=== PATIENT | male | born 1945 | race Caucasian/White ===

== ENCOUNTER 2016-07-28 12:43 | Outpatient (CLI) | payer MEDICARE, MEDICAID ==
[~2016-07-28] VITALS: Ht 182.9 cm; Wt 119.1 kg
[~2016-07-28 12:43] MED LIST: CYAN100053 IM; ERGO500028; HYDR25TA4 PO; MELO-195; NAPR-689; PRM25T; SOLI5TAB4; SUMA100T2 PO; SUMA50TA2; TAMS0.4C2 PO; TRAZ-144 PO
[2016-07-28 12:52] VITALS: BP 137/68
[2016-07-28] MEDS ORDERED: LISI-552 PO (13:23)
[2016-07-28] MEDS ORDERED: [UNRECOGNIZED DRUG - CODE] PO (13:23)
[2016-07-28] MEDS ORDERED: FAMO20TA3 PO (13:23)
[2016-07-28] MEDS ORDERED: CHOL500044 PO (13:23)
[2016-07-28] MEDS ORDERED: METO-270 PO (13:23)
[2016-07-28] MEDS ORDERED: SOLI10TA2 PO (13:23)
[2016-07-28] MEDS ORDERED: GABA-488 PO (13:23)
[2016-08-13] MEDS ORDERED: ACET-77 PO (07:46)
== END 2016-07-28 13:05 | disposition home or self-care (01) ==
LOC: PREOP 12:43
PROVIDERS: ATTEND Orthopaedic Surgery
DX: Z01.818 Encounter for other preprocedural examination (principal); M75.102 Unspecified rotator cuff tear or rupture of left shoulder, not specified as traumatic

== ENCOUNTER 2016-08-04 09:34 | Inpatient (IN) | payer MEDICARE, MEDICAID ==
[~2016-08-04] VITALS: Ht 182.9 cm; Wt 118.8 kg
[~2016-08-04 09:34] MED LIST changes: -ACET-77 PO; -BUPIVACAINE 0.25% 30 ML (SENSORCAINE) VIAL ONE; -CLINDAMYCIN 600 MG/50 ML IVPB 50 ML IV ONE; -DEXAMETHASONE PF 10 MG/ML (DECADRON) VIAL ONE; -FAMOTIDINE 20MG/2ML IV (PEPCID) IV ONE; -GLYCOPYRROLATE 0.2 MG/ML (ROBINUL) 2 ML VIAL ONE; -LACTATED RINGERS 1,000 ML IV ONE; -LIDOCAINE PF 2% 10 ML (XYLOCAINE) AMP ONE; -MIDAZOLAM 2 MG/2 ML (VERSED) VIAL ONE; -NEOSTIGMINE (BLOXIVERZ ) 1 MG/1ML 10 ML VIAL ONE; -ONDANSETRON 4 MG/2 ML (SDV) Z0FRAN IV ONE; -ONDANSETRON 4 MG/2 ML (SDV) Z0FRAN ONE; -ROCURONIUM 50 MG/5 ML (ZEMURON) VIAL IV ONE; -SEVOFLURANE (ULTANE) 15 ML INHAL SOLN ONE; -fentaNYL INJECTION 100 MCG/2 ML AMP IV PRN; -fentaNYL INJECTION 250 MCG/5 ML AMP ONE; -morphine INJ 10 MG/ML 1ML (SYR OR VIAL) IV PRN; -morphine PF (DURAMORPH) 10 MG/10 ML AMP ONE; -oxyCODONE/APAP 5/325MG (PERCOCET 5) TABLET PO PRN; -proPOfol 200 MG/20 ML (DIPRIVAN) VIAL IV ONE
[2016-08-04 11:45] VITALS: BP 129/77
[2016-08-04] MEDS ORDERED: FAMOTIDINE 20 MG (PEPCID) TABLET PO PRN (12:15)
--- NOTE | 2016-08-04 13:38 | Occupational Therapy Eval ---
OT Evaluation-General/PLF Medical Diagnosis Admission Date Aug 04, 2016 at 11:25 Medical Diagnosis: post polio syndrome, L rot cuff repair Onset Date: Aug 04, 2016 Therapy Diagnosis Therapy Diagnosis: decr self care, weakness, decr functional mobility Height/Weight Height (Feet): 6 Height (Inches): 0.00 Weight (Pounds): 262 Weight (Ounces): 8.0 Precautions Precautions/Isolations: Standard Precautions Weight Bear Status Weight Bearing Restriction: Weight Bearing/Tolerated AROM, PROM as tolerated, WB as tolerated L UE Referral Physician: Leighton Referral Reason: Evaluation/Treatment Medical History Pertinent Medical History: GERD, HTN Additional Medical History Migraines, insomnia, neck pain, foot drop R, arrhythmia, C spine surgery, L Le fx surgeries x 2, R LE surgeries x 2 Current History left shoulder arthroscopic biceps tenotomy, labral debridement, chondroplasty of the glenoid, acromioplasty and distal clavicle excision. Recovery complicated by polio affecting R LE and post polio syndrome affecting L LE and UEs. Reviewed History: Yes Social History Home: Assisted Living (Guest Home) Current Living Status: Alone Entry Into Home: Level Entry ADL-Prior Level of Function ADL PLOF Comments Pt reported that he has been able to manage all of his basic self care needs. He uses a 4WW in the facility and a scooter when he is outside. His bathroom has additional grab bars in the shower. 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 Pt reported pain in L shoulder from surgery but was not able to describe or rate it. Appearance Alert, cooperative Mental Status/Objective Patient Orientation: Person, Place, Situation Attachments: IV (became dislodged by pt during tx. Nursing notified) Current Glasses/Contacts: Yes Hearing Aids: No Dentures/Partials: Yes (upper and lower) Hand Dominance: Right Upper Extremity ROM R WFL. L about 20 degrees active flex/abd at shoulder, rest UE WFL Upper Extremity Sensation Pt reported some numbness R thumb and index. "That's from my neck surgery." Upper Extremity Strength UE grossly 4+/5. L UE not tested at shoulder due to post surgery, rest UE grossly 4+/5 ADL-Treatment ADL-Current Pt declined bathing because he had already showered today prior to surgery. Pt toileted with SBA standing in front of toilet, grab bar on R side, 4WW on L. Pt will not be able to get off taller toilet, with grab bar on his L side. Placed BSC over toilet which gives him arm rests to use for getting up and down. uses a urinal at night Functional [place] Measure 0=Not Assessed/NA 4=Minimal Assistance 1=Total Assistance 5=Supervision or Setup 2=Maximal Assistance 6=Modified [place] 3=Moderate Assistance 7=Complete IndependenceIRFPAI Quality Coding Scale 6 Independent with activity with or without an assistive device 5 Patient requires set up or clean up by helper. Patient completes activity by themselves 4 Supervision or touching assist (CGA). [place] provide cues , steadying assist 3 The helper provides less than half the effort to complete the activity 2 The helper provides more than half the effort to complete the activity 1 Dependent. The helper does all the effort to complete an activity 7 Patient refused to complete or attempt activity 9 The patient did not perform the activity before the current illness or injury 88 Not attempted due to Medical conditions or safety concerns Eating (FIM): 6 (Cannot eat peanuts without dentures. Opened packages and cut food. Able to feed himself) Eating (QC): 6 Grooming (FIM): 5 (SBA washing hands at sink. Pt able to put dentures in with only setup to bring supplies to him) Oral Hygiene (QC): 5 (setup) Upper Body Dressing (FIM): 5 (setup. Struggled a little with getting shirt over L shoulder and over head. ) Upper Body Dressing (QC): 5 Lower Body Dressing (FIM): 1 (Two people needed to provide CGA when standing and other person to pull pants up. Used 4WW for balance. max assist to don R LE brace and shoe. ) Lower Body Dressing (QC): 1 On/Off Footwear (QC): 1 Transfers (B, C, W/C) (FIM): 1 (Mod assist but two people, from taller surface. Difficulty pushing up with L UE. ) Other Treatments Co-tx with PT, due to decreased use R LE from polio, post polio syndrome with weakness L LE and UEs, and decreased functional use L UE immediately post surgery, with OT focusing on L UE function and ADLs and PT focusing on mobility and LE function. Education OT Patient Education: Modified ADL techniques, Progress toward Goal/Update tx plan, Purpose of tx/functional activities, Reviewed precautions, Rehab process, Safety issues, Transfer techniques Teaching Recipient: Patient Teaching Methods: Demonstration, Discussion Response to Teaching: Return Demonstration, Reinforcement Needed OT Short Term Goals Short Term Goals Time Frame: Aug 11, 2016 Lower Body Dressing(FIM): 4 Transfers (B,C,W/C) (FIM): 5 Additional Short Term Goals: 2-Verbalize Understanding, 3-ImproveStrength/Jennifer 1=Demonstrate adherence to instructed precautions during ADL tasks. 2=Patient will verbalize/demonstrate understanding of assistive devices/ modifications for ADL. 3=Patient will improve strength/tolerance for activity to enable patient to perform ADL's. OT Mcc Goals Tin Plater Goals Time Frame: Aug 18, 2016 Eating (FIM): 6 Eating (QC): 6 Groomin Oral Hygiene (QC): 6 Bathing(FIM): 6 Shower/Bathe Self (QC): 6 Upper Body Dressing(FIM): 6 Upper Body Dressing (QC): 6 Lower Body Dressing(FIM): 6 Lower Body Dressing (QC): 6 On/Off Footwear (QC): 6 Toileting(FIM): 6 Toileting Hygiene (QC): 6 Toilet/Commode Transfer(FIM): 6 Toilet/Commode Transfer (QC): 6 Shower Transfer(FIM): 6 Additional Goals: 2-Verbalize Understanding, 3-ImproveStrength/Jennifer 1=Demonstrate adherence to instructed precautions during ADL tasks. 2=Patient will verbalize/demonstrate understanding of assistive devices/ modifications for ADL. 3=Patient will improve strength/tolerance for activity to enable patient to perform ADL's. OT Education/Plan Problem List/Assessment Assessment: Decreased Activ Tolerance, Decreased UE Strength, Dependent Transfers, Impaired Funct Balance, Impaired Self-Care Skills, Restricted Funct UE ROM Pt would benefit from skilled OT to increase his independence in basic self care after L rotator cuff repair, complicated by R LE weakness from polio and post polio syndrome affecting strength and endurance in L Le and UEs, to allow him to safely return to live independently at [facility]. Discharge Recommendations Plan/Recommendations: Continue POC Barriers to Progress weakness from post polio syndrome Treatment Plan/Plan of Care Treatment,Training & Education: Yes Patient would benefit from OT for education, treatment and training to promote independence in ADL's, mobility, safety and/or upper extremity function for ADL' s. Plan of Care: ADL Retraining, Functional Mobility, Group Exercise/Act as Ind ( education, exercise, activity tolerance, functional activities, socialization), UE Funct Exercise/Act, UE Neuromus Re-Ed/Coord Treatment Duration: Aug 18, 2016 # of days/week 5-6 Visits Per Week: 10-11 Minutes/Day (M-F): 75-90 Minutes/Day (Sat/Rojas): PRN Agreement: Yes Rehab Potential: Good Time/GCodes Start Time: 11:40 Stop Time: 13:00 Total Time Billed (hr/min): 65 Billed Treatment Time visit, 1140 to 1220, 1250 - 1300 Evaluation moderate complexity 10 minutes, ADL 40 minutes Co tx with PT 30 minutes and 10 minutes DARIUSZ LYN OT Aug 04, 2016 13:38
[2016-08-04] MEDS: GABAPENTIN 300 MG (NEURONTIN) CAP PO SCH ×2 (14:11→20:41)
--- NOTE | 2016-08-04 14:28 | Physical Therapy Evaluation ---
PT Evaluation-General Medical Diagnosis Admission Date Aug 04, 2016 at 11:25 Medical Diagnosis: post polio syndrome, L rot cuff repair Onset Date: Aug 04, 2016 Therapy Diagnosis Therapy Diagnosis: weakness, abn gait Height/Weight Height (Feet): 6 Height (Inches): 0.00 Weight (Pounds): 262 Weight (Ounces): 0.0 Precautions Precautions/Isolations: Standard Precautions Weight Bear Status Weight Bearing Restriction: Weight Bearing/Tolerated Location Restriction: L UE Referral Physician: Leighton Referral Comments Spoke with Dr. Wilson, he reported WBAT through L UE and A/PROM L UE as tolerated. Sling for comfort. Medical History Pertinent Medical History: GERD, HTN Current History Pt admitted post left shoulder scope for therapy services to address functional mobility and safety due to change in function with UE surgery. Reviewed History: Yes Social History Home: Assisted Living (Guest Home) Current Living Status: Alone Entry Into Home: Level Entry Prior/Core FIM Prior Level of Function Functional [place] Measure 0=Not Assessed/NA 4=Minimal Assistance 1=Total Assistance 5=Supervision or Setup 2=Maximal Assistance 6=Modified [place] 3=Moderate Assistance 7=Complete [place] Bed Mobility: 7 Transfers (B,C,W/C) (FIM): 6 Gait: 6 (4 WW; KAFO) Wheelchair Mobility: 6 (power chair for community mobility) Pt able to bathe, dress and care for self without assist at OF. Ambulates in facility with 4WW without assist; power chair for community mobility PT Evaluation-Current Subjective Pt is agreeable. Reports it will be difficult for a while with his left UE impaired due to recent scope. Reports he uses his left UE heavily to push up from the bed or chair as well as uses it to pull up in the shower. Also reports stairs are very difficult at PLOF and he relied heavily on the left UE to pull himself up stairs. Pain Numeric Pain Scale: 4 Location: Left Location Body Site: Shoulder Pain Description: Sharp (intermittent with activity) Comment: pain relieves when activity stops Pt/Family Goals Pt reports his goal is to return to caring for himself at PLOF Objective Patient Orientation: Person, Place, Time, Situation Problem Solving: Good ROM/Strength ROM Lower Extremities Left LE WFL R LE PROM WFL Strenght Lower Extremities Left LE strength is grossly 4-/5; right LE NT--post polio; generally 2/5 Integumentary/Posture Integumentary intact Bowel Incontinence: No Bladder Incontinence: No Posture normal and symmetrical Neuromuscular (Tone, Coordination, Reflexes) intact left LE; limited right LE Sensory Vision: Wears Glasses Hearing: Functional Hand Dominance: Right Sensation Right Lower Extremit: Intact Sensation Left Lower Extremity: Intact Transfers Functional [place] Measure 0=Not Assessed/NA 4=Minimal Assistance 1=Total Assistance 5=Supervision or Setup 2=Maximal Assistance 6=Modified [place] 3=Moderate Assistance 7=Complete IndependenceIRFPAI Quality Coding Scale 6 Independent with activity with or without an assistive device 5 Patient requires set up or clean up by helper. Patient completes activity by themselves 4 Supervision or touching assist (CGA). [place] provide cues , steadying assist 3 The helper provides less than half the effort to complete the activity 2 The helper provides more than half the effort to complete the activity 1 Dependent. The helper does all the effort to complete an activity 7 Patient refused to complete or attempt activity 9 The patient did not perform the activity before the current illness or injury 88 Not attempted due to Medical conditions or safety concerns Transfers (B, C, W/C) (FIM): 3 Scootin Rollin Roll Left to Right (QC): 4 Supine to/from Sit: 3 (mod assist for trunk) Sit to/from Stand: 3 (mod assist from standard height bed; pt unable to push up with left UE like usual) bed t/f WC(FIM only if WC use): 4 Sit to Lying (QC): 3 (asssist with trunk due to L UE recent surgery) Lying to Sitting/Side of Bed(Q: 3 Sit to Stand (QC): 3 Chair/Bmy-zg-Paxpr Xfer(QC): 4 Car Transfer (QC): 88 (not tested due to safety concerns at this time with transfer) Gait Does the Patient Walk?: Yes Mode of Locomotion: Walk Anticipated Mode of Locomotion: Walk Gait (FIM): 2 Distance (FIM): 1=up to 49 ft Walk 10 feet (QC): 4 (close CGA with 4WW) Walk 50 ft with 2 Turns(QC): 4 (close CGA with 4WW in room) Walk 150 ft (QC): 88 (unable to walk this distance at this time.) Walking 10ft/uneven surface-QC: 88 (unsafe to attempt due to fall risk) Distance: 50 ft Gait Level of Assist: 4 (close CGA) Gait Assistive Device: Walker 4 Wheeled Comments/Gait Description ROMINA right locked in knee extension; close CGA; Wheelchair Training Does the Pt Use a Wheelchair?: Yes (power chair at home) Wheelchair (FIM): 0 (no tested this visit; pt has a power chair he will use at home. ) Stairs Stairs (FIM): 0 (unsafe to attempt; fall risk) 1 Step (curb) (QC): 88 4 Steps (QC): 88 12 Steps (QC): 88 If not tested on admit;explain unsafe; typically heavy use of left UE to pull himself up stairs; unsafe to attempts at this time. Balance Sitting Static: Good Sitting Dynamic: Good Standing Static: Fair Standing Dynamic: Fair Picking up an Object (QC): 88 (fall risk; unable to attempt) Treatment Co treat with OT to address functional transfers and mobility whilst OT addressed dressing. PT focused on sequencing/placement of hands for transfers and trunk control / balance while OT addressed dressing. Worked on sequencing with bed mobiltiy and transfer as well as mobility in the room with multiple sit to stand attempts. Pt ambulated in/out of the bathroom with 4WW with Close CGA and stood at toilet to urinate and stood at sink to wash hands all with close CGA. Assessment/Needs Pt presents post left shoulder scope. He also has a history of post polio syndrome with right LE affected. Pt currently presents with difficulty with functional transfers, bed mobility, ambulation and ability to mobilize safely . He needs increased assist with transfers and mobility and has balance impairment as well. Due to patient's history of post polio and recent surgery, he is an excellent ARU candidate to address his mobility decline and restore his function to mod indep with all. His L UE affected, B LE weakness, diminished ability to transfer and impaired functional balance. His clinical presentation is changing due to surgery this date. Rehab Potential: Good PT Short Term Goals Short Term Goals Time Frame: Aug 13, 2016 Transfers (B,C,W/C) (FIM): 5 Gait (FIM): 5 Distance (FIM): 8=897-84 ft Gait Assistive Device: Walker 4 Wheeled PT Nursing Home Goals Instrument Technician Goals PT Nursing Home Goals Time Frame: Aug 20, 2016 Transfers (B,C,W/C) (FIM): 6 Sit to Lying (QC): 6 Lying-Sitting on Side/Bed(QC): 6 Sit to Stand (QC): 6 Roll Left to Right (QC): 6 Chair/Ovq-jm-Egkrj Xfer(QC): 6 Car Transfer (QC): 5 Does the Patient Walk: Yes Gait (FIM): 6 Gait distance (FIM): 3=150 ft Walk 10 feet (QC): 6 Walk 10ft-Uneven Surface(QC): 6 Walk 50ft with 2 Turns (QC): 6 Walk 150 ft (QC): 6 Gait Level of Assist: 6 Gait Assistive Device: Walker 4 Wheeled Does the Pt use WC or Scooter?: Yes Wheelchair (FIM): 6 Wheelchair distance (FIM): 3=150 ft Wheel 50 feet with 2 turns (QC: 6 Stairs (FIM): 2 # of Steps: 1 1 Step (curb) (QC): 4 4 Steps (QC): 0 (no goal; unsafe) 12 Steps (QC): 0 (no goal; unsafe) Picking up an Object (QC): 3 PT Plan Problem List Problem List: Activity Tolerance, Functional Strength, Safety, Balance, Gait, Transfer, Bed Mobility, ROM Treatment/Plan Treatment Plan: Continue Plan of Care Treatment Plan: Bed Mobility, Education, Functional Activity Jennifer, Functional Strength, Group Therapy, Gait, Safety, Therapeutic Exercise, Transfers Treatment Duration: Aug 20, 2016 # of days/week 5-6 Visits Per Week: 10*-15 Minutes/Day (M-F): 60-90 Minutes/Day (Sat/Rojas): prn Pt/Family Agrees w/Plan: Yes Safety Risks/Education Patient Education: Transfer Techniques, Safety Issues Teaching Recipient: Patient Teaching Methods: Demonstration, Discussion Response to Teaching: Reinforcement Needed Time/GCodes Time In: 1130 Time Out: 1235 Total Billed Treatment Time: 65 Total Billed Treatment visit [id number] PT eval mod [id number] co treat with OT; FA x 30 [id number] individual treat FA 15 [id number] co treat with OT FA 10 ZAIDA MARKHAM PT Aug 04, 2016 14:27
--- NOTE | 2016-08-04 14:37 | ST Cognitive Linguistic Eval ---
Speech Evaluation-General Medical Diagnosis post polio syndrome, L rot cuff repair Onset Date: Aug 04, 2016 Therapy Diagnosis Therapy Diagnosis: Questionable Cognitive Impairment Precautions Precautions/Isolations: Standard Precautions Referral Referring Physician: Dr. Wade Manzanares Reason for Referral: Evaluation/Treatment Cognitive Screen Medical History Pertinent Medical History: GERD, HTN Reviewed History: Yes Social History Current Living Status: Alone Speech PLF-Current Status Prior Level of Function The patient denied prior challenges with speech, language, or cognition. Subjective The patient was recently admitted to [facility] following repair of his left rotator cuff. The patient greeted the clinician appropriately and agreed to participate in the cognitive screen. Language Eval: Auditory Comprehends Simple Yes/No Ques: Functional Indent/Objects Multiple [place]: Functional Ident/Pics in Multiple [place]: Functional Follows 1-Step Commands: Functional Follows Complex Directions: Functional Follows General Conversations: Functional Language Eval: Verbal Language Completes Spontaneous Greeting: Functional Produces Auto, Serial Info: Functional Imitates Simple Words/Phrases: Functional Word Finding: Functional Requests Basic Needs: Functional States Basic Personal Info: Functional Expresses Complex Ideas: Functional Cognitive Patient Orientation The patient was oriented to self, location, month, year, date, and day of week. Objective Cognitive Domain Attention: WNL Problem Solving: Functional Objective Impression The patient demonstrated cognitive linguistic skills within normal limits and adequate for completion of ADL's. Communication/Social Cognition Comprehension: 6 Expression: 6 Social Interaction: 6 Problem Solvin Memory: 6 Speech Patient Assess Expression of Ideas/Wants: Expression (4) Understanding [place] Content: Understands (4) Brief Interview-Mental Status: Yes Repetition of Three Words: Three (3) Temporal Orientation: Year: Correct (3) Temporal Orientation: Month: Accurate within 5 days(2) Temporal Orientation: Day: Correct (1) Recall : Wear to say "Sock": Yes, no cue required (2) Recall : Color: Yes, no cue required (2) Recall : Bed: Yes, no cue required (2) Speech-Plan Treatment Plan Speech Therapy Treatment Plan: Discontinue ST Evaluation, only. Rehab Potential: Good Safety Risks/Education Teaching Recipient: Patient Teaching Methods: Discussion Response to Teaching: Verbalize Understanding Education Topics Provided: Plan of Care Time Speech Therapy Time In: 14:15 Speech Therapy Time Out: 14:25 Total Billed Time: 10 Billed Treatment Time 1VIVIAN ELIZABETH ST Aug 04, 2016 14:37
--- NOTE | 2016-08-04 14:45 | Therapy Group Daily Note ---
Therapy Daily Group Note Patient Education Topic Other List Below (ARU description/expectations) Exercises LE Seated Exercise, UE Exercise Other/Notes Pt actively participated in OT group. Group consisted of introductions (name, place living, favorite food), socializations, ARU expectations/educations, group interaction presenting safety hazards in home, UE/LE seated exercises and memory recall from history and pt's past. Pt contributed to each discussion appropriately. Pt was able to describe memories with details relevant to the topic. Pt attempted to complete UE/LE seated exercises though due to medical issues pt unable to complete movement with L UE. After group, pt lying in bed with call light/phone in reach. Start Time: 13:00 Stop Time: 14:10 Total Billed Treatment Time: 70 Total Billed Treatment 1-GRP ZAIDA FULLER Aug 04, 2016 14:45
[2016-08-04] MEDS: TROSPIUM 20 MG (SANCTURA) TAB PO SCH (17:11)
[2016-08-04] MEDS: ALFUZOSIN HCL 10 MG TAB (UROXATRAL) PO SCH (17:11)
[2016-08-04] MEDS ORDERED: TAMSULOSIN 0.4 MG (FLOMAX) CAP PO SCH (18:00)
[2016-08-04 18:11] VITALS: BP 147/80
[2016-08-04] MEDS: lisINopril 20 MG (ZESTRIL) TAB PO SCH (20:41)
[2016-08-04] MEDS: FAMOTIDINE 20 MG (PEPCID) TABLET PO SCH (20:41)
[2016-08-04] MEDS: traZODone 50 MG (DESYREL) TAB PO SCH (20:41)
[2016-08-04] MEDS: oxyCODONE/APAP 5/325MG (PERCOCET 5) TABLET PO PRN (20:41)
[2016-08-04 20:59] VITALS: BP 167/90
[2016-08-04] MEDS ORDERED: NON-FORMULARY MEDICATION 1 EA EA PO SCH (21:00)
[2016-08-05 01:00] VITALS: BP 111/67
[2016-08-05] MEDS: TROSPIUM 20 MG (SANCTURA) TAB PO SCH ×2 (06:00→17:09)
[2016-08-05 06:37] VITALS: BP 157/97
--- NOTE | 2016-08-05 07:42 | Progress Note-Standard ---
Standard Progress Note Progress Notes/Assess & Plan Progress/Assessment & Plan No complaints LUE--dressing in place. NVI doing well s/p L shoulder arthroscopy activities ad ada YAJAIRA ANN MD Aug 05, 2016 07:42
[2016-08-05] MEDS: FAMOTIDINE 20 MG (PEPCID) TABLET PO SCH ×2 (08:20→20:55)
[2016-08-05] MEDS: OMEGA 3 (FISH OIL) 1000 MG CAP PO SCH (08:20)
[2016-08-05] MEDS: GABAPENTIN 300 MG (NEURONTIN) CAP PO SCH ×3 (08:20→20:55)
[2016-08-05] MEDS: HYDROCHLOROTHIAZIDE 25 MG (HCTZ) TAB PO SCH (08:20)
[2016-08-05] MEDS: oxyCODONE/APAP 5/325MG (PERCOCET 5) TABLET PO PRN ×3 (08:21→17:24)
[2016-08-05] MEDS: VITAMIN D3 5,000 UNITS (CHOLECALCIFEROL ) CAPSULE PO SCH (08:21)
--- NOTE | 2016-08-05 09:48 | Occupational Ther Daily Note ---
OT Current Status-Daily Note Subjective Pt alert, ambulated with 4WW to therapy gym. Pt agreed to therapy. Pt c/o pain in L shldr, had pain medications then OT placed cold pack on shldr. Mental Status/Objective Patient Orientation: Person, Place, Time, Situation Functional [place] Measure 0=Not Assessed/NA 4=Minimal Assistance 1=Total Assistance 5=Supervision or Setup 2=Maximal Assistance 6=Modified [place] 3=Moderate Assistance 7=Complete [place] ADL-Treatment Pt had already bathed and dressed prior to OT. Pt stated that he had difficulty with donning sock/shoe then tying shoe. OT educated and gave pt with AE for dressing (sock aide, dressing stick, waiter/waitress third class, elastic shoelaces, long handle shoe horn). Pt demonstrated understanding of AE for lower body dressing by completing without assist. Functional [place] Measure 0=Not Assessed/NA 4=Minimal Assistance 1=Total Assistance 5=Supervision or Setup 2=Maximal Assistance 6=Modified [place] 3=Moderate Assistance 7=Complete IndependenceIRFPAI Quality Coding Scale 6 Independent with activity with or without an assistive device 5 Patient requires set up or clean up by helper. Patient completes activity by themselves 4 Supervision or touching assist (CGA). [place] provide cues , steadying assist 3 The helper provides less than half the effort to complete the activity 2 The helper provides more than half the effort to complete the activity 1 Dependent. The helper does all the effort to complete an activity 7 Patient refused to complete or attempt activity 9 The patient did not perform the activity before the current illness or injury 88 Not attempted due to Medical conditions or safety concerns Lower Body Dressing (FIM): 5 (With equipment) Other Treatment Pt completed AROM with L UE gravity eliminated, shldr retraction/protraction and horizontal shldr abd/add (3 sets 10 reps). Pt felt pain in anterior L shldr then took breaks to allow shldr to rest. Resistive fine motor exercises completed to increase strength for daily functional tasks. Pt ambulated to room with 4WW then was able to open closet to retrieve bag then transferred to recliner by self. After therapy, pt sitting in recliner with call light/phone in reach. All needs met in room. Education OT Patient Education: Modified ADL techniques, Use of adapted equipment Teaching Recipient: Patient Teaching Methods: Demonstration, Discussion Response to Teaching: Verbalize Understanding, Return Demonstration OT Short Term Goals Short Term Goals Time Frame: Aug 11, 2016 Lower Body Dressing(FIM): 4 Transfers (B,C,W/C) (FIM): 5 Additional Short Term Goals: 2-Verbalize Understanding, 3-ImproveStrength/Jennifer 1=Demonstrate adherence to instructed precautions during ADL tasks. 2=Patient will verbalize/demonstrate understanding of assistive devices/ modifications for ADL. 3=Patient will improve strength/tolerance for activity to enable patient to perform ADL's. OT Custodial Goals Custodial Goals Time Frame: Aug 18, 2016 Eating (FIM): 6 Eating (QC): 6 Groomin Oral Hygiene (QC): 6 Bathing(FIM): 6 Shower/Bathe Self (QC): 6 Upper Body Dressing(FIM): 6 Upper Body Dressing (QC): 6 Lower Body Dressing(FIM): 6 Lower Body Dressing (QC): 6 On/Off Footwear (QC): 6 Toileting(FIM): 6 Toileting Hygiene (QC): 6 Toilet/Commode Transfer(FIM): 6 Toilet/Commode Transfer (QC): 6 Shower Transfer(FIM): 6 Additional Goals: 2-Verbalize Understanding, 3-ImproveStrength/Jennifer 1=Demonstrate adherence to instructed precautions during ADL tasks. 2=Patient will verbalize/demonstrate understanding of assistive devices/ modifications for ADL. 3=Patient will improve strength/tolerance for activity to enable patient to perform ADL's. OT Education/Plan Problem List/Assessment Pt would benefit from skilled OT to increase his independence in basic self care after L rotator cuff repair, complicated by R LE weakness from polio and post polio syndrome affecting strength and endurance in L Le and UEs, to allow him to safely return to live independently at [facility]. Discharge Recommendations Plan/Recommendations: Continue POC Treatment Plan/Plan of Care Patient would benefit from OT for education, treatment and training to promote independence in ADL's, mobility, safety and/or upper extremity function for ADL' s. Plan of Care: ADL Retraining, Functional Mobility, Group Exercise/Act as Ind ( education, exercise, activity tolerance, functional activities, socialization), UE Funct Exercise/Act, UE Neuromus Re-Ed/Coord Treatment Duration: Aug 18, 2016 Visits Per Week: 10-11 Minutes/Day (M-F): 75-90 Minutes/Day (Sat/Rojas): PRN Agreement: Yes Rehab Potential: Good Time/GCodes Start Time: 08:15 Stop Time: 09:45 Total Time Billed (hr/min): 90 Billed Treatment Time 1 visit-ADL 3 (45 min) EX 3 (45 min) ZAIDA FULLER Aug 05, 2016 09:48
--- NOTE | 2016-08-05 10:46 | Physical Therapy Daily Note ---
PT Daily Note-Current Subjective Patient in recliner pre tx, agrees to PT, patient pleasant and cooperative. Rates pain in left shoulder at 3/10. Appearance Patient in bathroom post tx, is mod I with ambulation using a 4 wheeled walker Mental Status Patient Orientation: Normal For Age right KAFO Transfers Functional [place] Measure 0=Not Assessed/NA 4=Minimal Assistance 1=Total Assistance 5=Supervision or Setup 2=Maximal Assistance 6=Modified [place] 3=Moderate Assistance 7=Complete IndependenceIRFPAI Quality Coding Scale 6 Independent with activity with or without an assistive device 5 Patient requires set up or clean up by helper. Patient completes activity by themselves 4 Supervision or touching assist (CGA). [place] provide cues , steadying assist 3 The helper provides less than half the effort to complete the activity 2 The helper provides more than half the effort to complete the activity 1 Dependent. The helper does all the effort to complete an activity 7 Patient refused to complete or attempt activity 9 The patient did not perform the activity before the current illness or injury 88 Not attempted due to Medical conditions or safety concerns Transfers (B, C, W/C) (FIM): 4 Scootin Rollin Supine to/from Sit: 4 Sit to/from Stand: 4 Bed to/from Chair: 6 patient needs just a little assist getting out of bed since he can't use his left arm to push, he also needs min assist to stand from low surfaces Gait Training Gait (FIM): 6 Distance: 300', 100' Gait Level of Assist: 6 Gait Assistive Device: FWW 4 wheeled walker and right KAFO Exercises PROM to left shoulder flexion 75 degrees, abduction 85 degrees, ER 50 degrees, IR 65 degrees, seated PROM flexion on the parallel bars, AROM elbow flexion and forearm sup/pro NuStep Minutes: 15 NuStep Workload: 6 Treatments bed mobility and transfers, ambulation, functional strengthening, passive and active ROM Assessment Current Status: Fair Progress patient nico well, has to use left arm to stand PT Short Term Goals Short Term Goals Time Frame: Aug 13, 2016 Transfers (B,C,W/C) (FIM): 5 Gait (FIM): 5 Distance (FIM): 2=615-72 ft Gait Assistive Device: Walker 4 Wheeled PT Tugboat Engineer Goals Tugboat Engineer Goals PT Tugboat Engineer Goals Time Frame: Aug 20, 2016 Transfers (B,C,W/C) (FIM): 6 Sit to Lying (QC): 6 Lying-Sitting on Side/Bed(QC): 6 Sit to Stand (QC): 6 Rollin Roll Left to Right (QC): 6 Chair/Eye-iw-Yalzw Xfer(QC): 6 Car Transfer (QC): 5 Does the Patient Walk: Yes Gait (FIM): 6 Gait distance (FIM): 3=150 ft Walk 10 feet (QC): 6 Walk 10ft-Uneven Surface(QC): 6 Walk 50ft with 2 Turns (QC): 6 Walk 150 ft (QC): 6 Gait Level of Assist: 6 Gait Assistive Device: Walker 4 Wheeled Does the Pt use WC or Scooter?: Yes Wheelchair (FIM): 6 Wheelchair distance (FIM): 3=150 ft Wheel 50 feet with 2 turns (QC: 6 Stairs (FIM): 2 # of Steps: 1 1 Step (curb) (QC): 4 4 Steps (QC): 0 (no goal; unsafe) 12 Steps (QC): 0 (no goal; unsafe) Picking up an Object (QC): 3 PT Plan Problem List Problem List: Activity Tolerance, Functional Strength, Safety, Balance, Gait, Transfer, Bed Mobility, ROM Treatment/Plan Treatment Plan: Continue Plan of Care Treatment Plan: Bed Mobility, Education, Functional Activity Jennifer, Functional Strength, Group Therapy, Gait, Safety, Therapeutic Exercise, Transfers Treatment Duration: Aug 20, 2016 Visits Per Week: 10*-15 Minutes/Day (M-F): 60-90 Minutes/Day (Sat/Rojas): prn Safety Risks/Education Patient Education: Gait Training, Transfer Techniques, Reviewed Use of Ice, Correct Positioning, Safety Issues Teaching Recipient: Patient Teaching Methods: Demonstration, Discussion Response to Teaching: Reinforcement Needed Time/GCodes Time In: 945 Time Out: 1045 Total Billed Treatment Time: 60 Total Billed Treatment 1 visit GT 15 min FA 15 min EX 30 min RAVI PEREIRA PT Aug 05, 2016 10:46
--- NOTE | 2016-08-05 11:22 | HISTORY AND PHYSICAL ---
DATE OF ADMISSION: 08/04/2016 CHIEF COMPLAINT: Difficulty with walking. HISTORY OF PRESENT ILLNESS: The patient is a 71-year-old retired male who lives at local assisted living facility who had single day surgery with Dr. Wilson on 08/04/2016, due to progressively worsening left shoulder pain. The patient had arthroscopy and distal clavicle excision procedure. The patient had been modified independent for ambulation with a long leg brace on the right due to postpolio syndrome. He has arthritis in both shoulders. 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 He was able to do most of his ADLs prior to this. Currently he requires moderate assistance for grooming, lower body dressing, toileting, transfers. Max assist for bathing, upper body dressing, ambulates 12 feet with a front wheel walker. He has increased pain with movement of both shoulders, left more than right. He has an island dressing over the left shoulder. PAST MEDICAL HISTORY: 1. Post polio syndrome affecting the right leg. 2. Arthritis of both shoulders. 3. Hypertension. 4. C Spine surgery for radiculopathy rt arm [facility] 2000 with mild residual tingling rt hand PAST SURGICAL HISTORY: As per above. ALLERGIES: PENICILLIN. FAMILY HISTORY: Noncontributory. SOCIAL HISTORY: , lives at [facility] in [place]. He is retired. PCP: Dr. Long. REVIEW OF SYSTEMS: Ten-point review of systems significant for right leg weakness, bilateral shoulder pain MEDICATIONS: 1. Vitamin B12 1000 mcg q. month. 2. Hydrochlorothiazide 25 mg p.o. daily. 3. Fish oil 3000 mg p.o. daily. 4. Toprol-XL 25 mg p.o. daily. 5. Vitamin D3 500 units p.o. daily. 6. Lisinopril 20 mg p.o. at bedtime. 7. Trazodone 150 mg p.o. at bedtime. 8. Pepcid 20 mg p.o. b.i.d. 9. Uroxatral 10 mg p.o. daily evenings. 10. [place] 20 mg p.o. daily. 11. Gabapentin 300 mg p.o. t.i.d. 12. Percocet generic 5/325, 1 to 2 tablets p.o. q.4 hours p.r.n. moderate pain. PHYSICAL EXAMINATION: Significant for a pleasant male, appearing his stated age, sitting in chair in no acute distress. VITAL SIGNS: Blood pressure is 128/77, respirations 16, pulse 70. He is afebrile. O2 sat 93% on room air. HEENT: Vision, speech, hearing, grossly intact. No oral lesion is noted. NECK: Supple without mass. HEART: Regular rhythm. LUNGS: Clear. ABDOMEN: Soft, nontender. Bowel sounds present. EXTREMITIES: His right leg is in a long leg brace. No edema of the left ankle. No calf tenderness. He has some mild postoperative tenderness over the left shoulder. MUSCULOSKELETAL: He has functional active range of motion in the right upper extremity. Functional passive range of motion left shoulder. Good podiatric surgeon strength bilaterally. He is right-handed. NEUROLOGIC: He has right foot drop. Sensation is grossly intact to touch. Cognition is intact. He does report some numbness in the right thumb and index that is from prior cervical spine surgery as per patient's report. Strength right upper extremity 4+/5, left upper limb functional, but no formal testing done at shoulder due to recent surgery. Rest of left upper extremity distal 4+/5. Strength left lower extremity 4-/5. Right lower extremity not tested. Postpolio generally 2/5 in long leg raise. Sensation intact to touch. He is reported to be continent of bowel and bladder. IMPRESSION: 1. Ambulatory dysfunction secondary to recent left shoulder surgery, Dr. Wilson, debridement, painful DJD, complicated by postpolio syndrome with right leg in a long-leg brace. 2. Prior cervical spine surgery with some numbness and tingling as a residual right hand. 3. Hypertension, controlled with medication. 4. GERD, on medication. 5. Hyperlipidemia, on statin. 6. Vitamin D deficiency on replacement. PLAN: The patient will have a comprehensive program of inpatient rehabilitation with a goal of maximizing level of functional dependence prior to discharge back to assisted living facility. The patient will have PT/OT 90 minutes per day, each discipline, 5 days week for gait strengthening, conditioning, balance, ADLs, any patient/family/caregiver training necessary, any adaptive equipment and training necessary. Speech therapy has assessed the patient, found him to be competently intact and signed off. Rehabilitation nursing assist with bowel, bladder, skin, wound care, medication administration, pain management. creative services manager to assist with discharge planning, community reentry. Follow-up with Dr. Long as per her schedule. Routine admission labs. Therapy with cardiac and fall precautions. Precautions for left shoulder as per Dr. Wilson. See orders. We will utilize SCDs for DVT prophylaxis. ESTIMATED LENGTH OF STAY: Two weeks. PROGNOSIS: Rehab prognosis appears good for goal of restoring to prior level of function so that he may return to assisted living facility at highest level of function. DIET: Regular. CODE STATUS: FULL code. POST ADMISSION PHYSICIAN ASSESSMENT: The preadmission screen agrees with the post admission assessment that the patient is a good candidate for inpatient rehabilitation. He appears to be well motivated to participate in 3 hours of therapy a day. He should be able tolerate 3 hours of therapy a day from a medical and surgical standpoint. He should benefit from the 3 hours of therapy a day. He has a reasonable discharge plan, reasonable discharge rehabilitation goals and a supportive facility, as well as Yazdan[employer] members. The General Office Dispatcher's was in to visit him this evening with her family. He has various comorbidities that need to be closely monitored with medications and treatments adjusted on a daily basis and see if these include his hypertension. BARRIERS TO DISCHARGE: Barriers to discharge at this time is for him to be modified independent to supervision for ADLs and mobility skills prior to discharge back to assisted living facility so as to lessen the burden of the caregivers. RISKS FOR THIS PATIENT INCLUDE: 1. Poorly controlled pain. 2. Contractures. 3. Wound infection. 4. Skin breakdown. 5. DVT. 6. Pulmonary embolism. 7. Urinary retention. 8. UTI. 9. Respiratory infection. 10. Aspiration. Job ID: [id number] Dictated Date: 08/04/2016 17:56:07 Feltmaker Date: 08/05/2016 10:59:25/kaye [place]
--- NOTE | 2016-08-05 11:44 | PM & R (SOAP) Progress Note ---
Subjective Subjective/Events-last exam Patient was seen in his room this AM Progressing well with therapies Patient Min assist for transfers Using ice for left shoulder Appreciate Dr Rosado note Review of Systems Musculoskeletal: : other (left shoulder pain) Objective Exam Last Set of Vital Signs Vital Signs Date Time Temp Pulse Resp B/P Pulse Ox O2 Delivery O2 Flow Rate FiO2 08/05/16 09:00 97 Room Air 08/05/16 06:37 96.7 93 20 157/97 Capillary Refill : I&O Bad tableGeneral: Alert, Oriented X3, Cooperative, No Acute Distress HEENT: Atraumatic, PERRLA, EOMI, Mucous Memb Moist/[place] Neck: Supple, No JVD Lungs: Clear to Auscultation Heart: Regular Rate Abdomen: Normal Bowel Sounds, Soft, No Tenderness Extremities: No Edema, Other (ice apk left shoulder) Skin: Other (incision healing) Neuro: Other (RT Leg weakness as residual of polio Has long leg brace) Assessment/Plan Assessment S/P Left shoulder arthroscopy DR Wilson activity as tolerated Postpolio syndrome wears long leg brace HTN controlled DJD shoulders S/P C spine surgery for radiculopathy rt arm [facility] 2000 Plan Continue PT/OT/Pain management F/U with DR Wilson and Hospitalist CASEY Mitchell MD Aug 05, 2016 11:44
--- NOTE | 2016-08-05 13:32 | Physical Therapy Daily Note ---
PT Daily Note-Current Subjective Patient in recliner pre tx, agrees to PT, states he has pain of 4-5/10 in left shoulder. Appearance Patient in recliner post tx, has nurse call, phone, tray, all needs met. Mental Status Patient Orientation: Normal For Age Transfers Functional [place] Measure 0=Not Assessed/NA 4=Minimal Assistance 1=Total Assistance 5=Supervision or Setup 2=Maximal Assistance 6=Modified [place] 3=Moderate Assistance 7=Complete IndependenceIRFPAI Quality Coding Scale 6 Independent with activity with or without an assistive device 5 Patient requires set up or clean up by helper. Patient completes activity by themselves 4 Supervision or touching assist (CGA). [place] provide cues , steadying assist 3 The helper provides less than half the effort to complete the activity 2 The helper provides more than half the effort to complete the activity 1 Dependent. The helper does all the effort to complete an activity 7 Patient refused to complete or attempt activity 9 The patient did not perform the activity before the current illness or injury 88 Not attempted due to Medical conditions or safety concerns Transfers (B, C, W/C) (FIM): 5 Sit to/from Stand: 5 Bed to/from Chair: 5 Patient does not need assist to stand from an elevated surface Gait Training Gait (FIM): 5 Distance: 200'x2 Gait Level of Assist: 5 Gait Persons Needed: 1 Gait Assistive Device: Walker 4 Wheeled right KAFO Exercises LAQ alternating for 5 min, APx20, hip flexion x20 Treatments transfers, ambulation, functional strengthening Assessment Current Status: Fair Progress improving endurance PT Short Term Goals Short Term Goals Time Frame: Aug 13, 2016 Transfers (B,C,W/C) (FIM): 5 Gait (FIM): 5 Distance (FIM): 4=617-53 ft Gait Assistive Device: Walker 4 Wheeled PT Fci Goals Fci Goals PT Fci Goals Time Frame: Aug 20, 2016 Transfers (B,C,W/C) (FIM): 6 Sit to Lying (QC): 6 Lying-Sitting on Side/Bed(QC): 6 Sit to Stand (QC): 6 Rollin Roll Left to Right (QC): 6 Chair/Thc-yb-Ueorb Xfer(QC): 6 Car Transfer (QC): 5 Does the Patient Walk: Yes Gait (FIM): 6 Gait distance (FIM): 3=150 ft Walk 10 feet (QC): 6 Walk 10ft-Uneven Surface(QC): 6 Walk 50ft with 2 Turns (QC): 6 Walk 150 ft (QC): 6 Gait Level of Assist: 6 Gait Assistive Device: Walker 4 Wheeled Does the Pt use WC or Scooter?: Yes Wheelchair (FIM): 6 Wheelchair distance (FIM): 3=150 ft Wheel 50 feet with 2 turns (QC: 6 Stairs (FIM): 2 # of Steps: 1 1 Step (curb) (QC): 4 4 Steps (QC): 0 (no goal; unsafe) 12 Steps (QC): 0 (no goal; unsafe) Picking up an Object (QC): 3 PT Plan Problem List Problem List: Activity Tolerance, Functional Strength, Safety, Balance, Gait, Transfer, Bed Mobility, ROM Treatment/Plan Treatment Plan: Continue Plan of Care Treatment Plan: Bed Mobility, Education, Functional Activity Jennifer, Functional Strength, Group Therapy, Gait, Safety, Therapeutic Exercise, Transfers Treatment Duration: Aug 20, 2016 Visits Per Week: 10*-15 Minutes/Day (M-F): 60-90 Minutes/Day (Sat/Rojas): prn Safety Risks/Education Patient Education: Gait Training, Transfer Techniques, Safety Issues Teaching Recipient: Patient Teaching Methods: Demonstration, Discussion Response to Teaching: Reinforcement Needed Time/GCodes Time In: 1300 Time Out: 1330 Total Billed Treatment Time: 30 Total Billed Treatment 1 visit EX 10 min GT 20 min RAVI PEREIRA PT Aug 05, 2016 13:32
[2016-08-05] MEDS: ALFUZOSIN HCL 10 MG TAB (UROXATRAL) PO SCH (17:09)
[2016-08-05 18:00] VITALS: BP 124/74
--- NOTE | 2016-08-05 19:24 | Individualized Plan of Care ---
Individualized Plan of Care Rehab Nursing IPOC Order Admission Date Aug 04, 2016 at 11:25 Current Orders Orders-CASEY CONNOR MD Admission-Acute Rehab Unit (08/04/16 12:08) General/Regular (08/04/16 Lunch) Cyanocobalamin Injection (Vitamin B-12 I (08/23/16 09:00) Gabapentin Capsule/Tablet (Neurontin Cap (08/04/16 13:00) Hydrochlorothiazide Cap/Tablet (Hctz Cap (08/05/16 09:00) Lisinopril Tablet (Zestril Tablet) (08/04/16 21:00) [place] 3 Capsule (Fish Oil Capsule) (08/05/16 09:00) Famotidine Tablet (Pepcid Tablet) (08/04/16 12:15) Tamsulosin Capsule (Flomax Capsule) (08/04/16 18:00) Metoprolol Succinate (Xl) Tab (Toprol Xl (08/05/16 09:00) Trazodone Tablet (Desyrel Tablet) (08/04/16 21:00) Non-Formulary Medication (Non-Formulary (08/04/16 21:00) Cholecalciferol Capsule/Tablet (Vitamin (08/05/16 09:00) Pt Evaluate/Treat Request (08/04/16 12:20) Weight Bearing Status (08/04/16 12:20) Request Ot Evaluate & Treat (08/04/16 12:20) Request For Cognitive Services (08/04/16 12:20) Oxycodone/Apap 5/325mg Tablet (Percocet (08/04/16 12:30) Consult Physician (08/04/16 12:20) Famotidine Tablet (Pepcid Tablet) (08/04/16 21:00) Alfuzosin Tablet (Uroxatral Tablet) (08/04/16 18:00) Trospium Tablet ([place] Tablet) (08/04/16 16:00) Weight Bearing Status (08/04/16 13:51) Patient Visit (08/04/16 ) Speech Sound Lang Comp (08/04/16 ) Ambulate W/O 02-Home O2 Qual (08/04/16 16:11) Patient Visit (08/04/16 ) Pt Eval Moderate Complexity (08/04/16 ) Functional Activities, Ea 15 (08/04/16 ) Patient Visit (08/05/16 ) Exercise Therap, Ea 15 Min (08/05/16 ) Gait Training, Ea 15 Min (08/05/16 ) Functional Activities, Ea 15 (08/05/16 ) PT IPOC Problem List: Activity Tolerance, Functional Strength, Safety, Balance, Gait, Transfer, Bed Mobility, ROM Treatment Plan: Continue Plan of Care Bed Mobility, Education, Functional Activity Jennifer, Functional Strength, Group Therapy, Gait, Safety, Therapeutic Exercise, Transfers Treatment Duration: Aug 20, 2016 Visits Per Week: 10*-15 Minutes/Day (M-F): 60-90 Minutes/Day (Sat/Rojas): prn OT IPOC Problems: Decreased Activ Tolerance, Decreased UE Strength, Dependent Transfers , Impaired Funct Balance, Impaired Self-Care Skills, Restricted Funct UE ROM OT Problems Pt would benefit from skilled OT to increase his independence in basic self care after L rotator cuff repair, complicated by R LE weakness from polio and post polio syndrome affecting strength and endurance in L Le and UEs, to allow him to safely return to live independently at [facility]. Plan of Care: ADL Retraining, Functional Mobility, Group Exercise/Act as Ind ( education, exercise, activity tolerance, functional activities, socialization), UE Funct Exercise/Act, UE Neuromus Re-Ed/Coord Treatment Duration: Aug 18, 2016 Visits Per Week: 10-11 Minutes/Day (M-F): 75-90 Minutes/Day (Sat/Rojas): PRN ST IPOC Speech Therapy Treatment Plan: Discontinue ST Physician IPOC Medical Issues being managed closely and that require the 24 hour availability of a physician:Pain management HTN Postpolio syndrome OA Medical Issues: DVT Prophylaxis, Falls Precautions, Infection Protection, Pain Management, Wound Care, Other (List) (as per above) Brief Synthesis of Preadmission Screen, Post-Admission Evaluation, and Therapy Evaluations: 71 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
[2016-08-05] MEDS: traZODone 50 MG (DESYREL) TAB PO SCH (20:56)
[2016-08-05] MEDS: lisINopril 20 MG (ZESTRIL) TAB PO SCH (20:56)
[2016-08-06 05:36] VITALS: BP 112/71
[2016-08-06] MEDS: TROSPIUM 20 MG (SANCTURA) TAB PO SCH ×2 (05:48→16:55)
[2016-08-06] MEDS: oxyCODONE/APAP 5/325MG (PERCOCET 5) TABLET PO PRN ×3 (05:49→20:13)
--- NOTE | 2016-08-06 07:13 | Progress Note-Standard ---
Standard Progress Note Progress Notes/Assess & Plan Progress/Assessment & Plan No complaints LUE--dressing in place. NVI doing well s/p L shoulder arthroscopy activities ad ada Final Diagnosis No complaints incisions clean and dry s/p L shoulder scope PT/OT ok to showYAJAIRA Blackburn MD Aug 06, 2016 07:13
--- NOTE | 2016-08-06 08:36 | PM & R (SOAP) Progress Note ---
Subjective Subjective/Events-last exam Patient was seen in his room this AM Progressing well with therapies Bandaid on left shoulder pain and tenderness decreasing Patient sba for transfers Objective Exam Last Set of Vital Signs Vital Signs Date Time Temp Pulse Resp B/P Pulse Ox O2 Delivery O2 Flow Rate FiO2 08/06/16 05:36 97.3 71 18 112/71 91 Room Air Capillary Refill : I&O Intake and Output 08/06/16 00:00 Intake Total 1760 ml Output Total 1750 ml Balance 10 ml Intake Oral 1760 ml Output Urine Total 1750 ml General: Alert, Oriented X3, Cooperative, No Acute Distress HEENT: Atraumatic, PERRLA, EOMI, Mucous Memb Moist/[place] Neck: Supple, No JVD Lungs: Clear to Auscultation Heart: Regular Rate Abdomen: Normal Bowel Sounds, Soft, No Tenderness Extremities: No Edema, Other (ice apk left shoulder) Skin: Other (incision healing) Neuro: Other (RT Leg weakness as residual of polio Has long leg brace) Assessment/Plan Assessment S/P Left shoulder arthroscopy DR Wilson activity as tolerated Postpolio syndrome wears long leg brace HTN controlled DJD shoulders S/P C spine surgery for radiculopathy rt arm [facility] 2000 Plan Continue PT/OT/Pain management F/U with DR Wilson and Hospitalist CASEY Mitchell MD Aug 06, 2016 08:36
[2016-08-06] MEDS: VITAMIN D3 5,000 UNITS (CHOLECALCIFEROL ) CAPSULE PO SCH (08:47)
[2016-08-06] MEDS: HYDROCHLOROTHIAZIDE 25 MG (HCTZ) TAB PO SCH (08:47)
[2016-08-06] MEDS: OMEGA 3 (FISH OIL) 1000 MG CAP PO SCH (08:47)
[2016-08-06] MEDS: GABAPENTIN 300 MG (NEURONTIN) CAP PO SCH ×3 (08:48→20:13)
[2016-08-06] MEDS: FAMOTIDINE 20 MG (PEPCID) TABLET PO SCH ×2 (08:48→20:11)
--- NOTE | 2016-08-06 09:47 | Occupational Ther Daily Note ---
OT Current Status-Daily Note Subjective Pt alert, lying in bed. Pt agreed to therapy. No c/o pain at this time. Mental Status/Objective Patient Orientation: Person, Place, Time, Situation Functional [place] Measure 0=Not Assessed/NA 4=Minimal Assistance 1=Total Assistance 5=Supervision or Setup 2=Maximal Assistance 6=Modified [place] 3=Moderate Assistance 7=Complete [place] ADL-Treatment Pt was able to go from supine to sitting EOB by self. Pt ambulated with forearm crutches to shower then transferred into shower using grabbars and shower seat with SBA. Pt bathed self mod I then assist to dry buttocks in standing. Transferring out of shower with SBA using forearm crutches then ambulated to room and sat in recliner. Pt was able to don/doff clothing by self , used sock aide to don R sock and long handle shoe horn to don L shoe. Using 4WW, pt able to ambulate into bathroom and complete oral care at sink by self. Pt able to complete toileting and toilet transfer with mod I. Pt took increased time for dressing due, donned leg brace by self. Regular shoelaces back in shoes. Functional [place] Measure 0=Not Assessed/NA 4=Minimal Assistance 1=Total Assistance 5=Supervision or Setup 2=Maximal Assistance 6=Modified [place] 3=Moderate Assistance 7=Complete IndependenceIRFPAI Quality Coding Scale 6 Independent with activity with or without an assistive device 5 Patient requires set up or clean up by helper. Patient completes activity by themselves 4 Supervision or touching assist (CGA). [place] provide cues , steadying assist 3 The helper provides less than half the effort to complete the activity 2 The helper provides more than half the effort to complete the activity 1 Dependent. The helper does all the effort to complete an activity 7 Patient refused to complete or attempt activity 9 The patient did not perform the activity before the current illness or injury 88 Not attempted due to Medical conditions or safety concerns Grooming (FIM): 6 Bathing (FIM): 6 Upper Body (FIM): 5 Lower Body Dressing (FIM): 5 Toileting (FIM): 6 Transfers (B, C, W/C) (FIM): 6 Toilet/Commode Transfer (FIM): 6 Shower Transfer(FIM): 5 Other Treatment Ambulated to therapy gym with 4WW. Pt completed active ROM with dowel camilo through half range as tolerated. Arm bike completed 15 min at 10 youssef resistance to increase strength, ROM and activity tolerance for daily functional tasks. Cold pack placed on pt's R shldr to decrease pain. Pt ambulated to bathroom and completed toileting with 4WW by self. After therapy, pt sitting in recliner with call light/phone in reach. All needs met in room. OT Short Term Goals Short Term Goals Time Frame: Aug 11, 2016 Lower Body Dressing(FIM): 4 Transfers (B,C,W/C) (FIM): 5 Additional Short Term Goals: 2-Verbalize Understanding, 3-ImproveStrength/Jennifer 1=Demonstrate adherence to instructed precautions during ADL tasks. 2=Patient will verbalize/demonstrate understanding of assistive devices/ modifications for ADL. 3=Patient will improve strength/tolerance for activity to enable patient to perform ADL's. OT Bat Lathe Operator Goals Skilled Nursing Goals Time Frame: Aug 18, 2016 Eating (FIM): 6 Eating (QC): 6 Groomin Oral Hygiene (QC): 6 Bathing(FIM): 6 Shower/Bathe Self (QC): 6 Upper Body Dressing(FIM): 6 Upper Body Dressing (QC): 6 Lower Body Dressing(FIM): 6 Lower Body Dressing (QC): 6 On/Off Footwear (QC): 6 Toileting(FIM): 6 Toileting Hygiene (QC): 6 Toilet/Commode Transfer(FIM): 6 Toilet/Commode Transfer (QC): 6 Shower Transfer(FIM): 6 Additional Goals: 2-Verbalize Understanding, 3-ImproveStrength/Jennifer 1=Demonstrate adherence to instructed precautions during ADL tasks. 2=Patient will verbalize/demonstrate understanding of assistive devices/ modifications for ADL. 3=Patient will improve strength/tolerance for activity to enable patient to perform ADL's. OT Education/Plan Problem List/Assessment Pt would benefit from skilled OT to increase his independence in basic self care after L rotator cuff repair, complicated by R LE weakness from polio and post polio syndrome affecting strength and endurance in L Le and UEs, to allow him to safely return to live independently at [facility]. Discharge Recommendations Plan/Recommendations: Continue POC Treatment Plan/Plan of Care Patient would benefit from OT for education, treatment and training to promote independence in ADL's, mobility, safety and/or upper extremity function for ADL' s. Plan of Care: ADL Retraining, Functional Mobility, Group Exercise/Act as Ind ( education, exercise, activity tolerance, functional activities, socialization), UE Funct Exercise/Act, UE Neuromus Re-Ed/Coord Treatment Duration: Aug 18, 2016 Visits Per Week: 10-11 Minutes/Day (M-F): 75-90 Minutes/Day (Sat/Rojas): PRN Agreement: Yes Rehab Potential: Good Time/GCodes Start Time: 08:15 Stop Time: 09:45 Total Time Billed (hr/min): 90 Billed Treatment Time 1 visit-ADL 4 (60 min) EX 2 (30 min) ZAIDA FULLER Aug 06, 2016 09:47
--- NOTE | 2016-08-06 10:40 | Physical Therapy Daily Note ---
PT Daily Note-Current Subjective Patient in recliner pre tx, agrees to PT, patient has no pain at rest. Appearance Patient in recliner post tx with nurse call, phone, tray, all needs met. Mental Status Patient Orientation: Normal For Age Transfers Functional [place] Measure 0=Not Assessed/NA 4=Minimal Assistance 1=Total Assistance 5=Supervision or Setup 2=Maximal Assistance 6=Modified [place] 3=Moderate Assistance 7=Complete IndependenceIRFPAI Quality Coding Scale 6 Independent with activity with or without an assistive device 5 Patient requires set up or clean up by helper. Patient completes activity by themselves 4 Supervision or touching assist (CGA). [place] provide cues , steadying assist 3 The helper provides less than half the effort to complete the activity 2 The helper provides more than half the effort to complete the activity 1 Dependent. The helper does all the effort to complete an activity 7 Patient refused to complete or attempt activity 9 The patient did not perform the activity before the current illness or injury 88 Not attempted due to Medical conditions or safety concerns Transfers (B, C, W/C) (FIM): 5 Sit to/from Stand: 5 patient was able to go from sit to stand from lower surfaces today Gait Training Gait (FIM): 5 Distance: 150', 100' Gait Level of Assist: 5 Gait Persons Needed: 1 Gait Assistive Device: Walker 4 Wheeled right KAFO, no LOB Exercises AROM left shoulder flexion and abduction only to about 30 degrees, AROM left elbow flexion and forearm sup/pro, passive shoulder flexion in parallel bars seated, left shoulder codman's clockwise and counter clockwise NuStep Minutes: 20 NuStep Workload: 6 Treatments ROM exercises, functional strengthening, transfer training, ambulation Assessment Current Status: Fair Progress patient has increased pain with any significant movement of left shoulder, arm is a little swollen, patient encouraged to keep ice on shoulder PT Short Term Goals Short Term Goals Time Frame: Aug 13, 2016 Transfers (B,C,W/C) (FIM): 5 Gait (FIM): 5 Distance (FIM): 6=750-56 ft Gait Assistive Device: Walker 4 Wheeled PT Fci Goals Fci Goals PT Fci Goals Time Frame: Aug 20, 2016 Transfers (B,C,W/C) (FIM): 6 Sit to Lying (QC): 6 Lying-Sitting on Side/Bed(QC): 6 Sit to Stand (QC): 6 Rollin Roll Left to Right (QC): 6 Chair/Bhh-cw-Gejjq Xfer(QC): 6 Car Transfer (QC): 5 Does the Patient Walk: Yes Gait (FIM): 6 Gait distance (FIM): 3=150 ft Walk 10 feet (QC): 6 Walk 10ft-Uneven Surface(QC): 6 Walk 50ft with 2 Turns (QC): 6 Walk 150 ft (QC): 6 Gait Level of Assist: 6 Gait Assistive Device: Walker 4 Wheeled Does the Pt use WC or Scooter?: Yes Wheelchair (FIM): 6 Wheelchair distance (FIM): 3=150 ft Wheel 50 feet with 2 turns (QC: 6 Stairs (FIM): 2 # of Steps: 1 1 Step (curb) (QC): 4 4 Steps (QC): 0 (no goal; unsafe) 12 Steps (QC): 0 (no goal; unsafe) Picking up an Object (QC): 3 PT Plan Problem List Problem List: Activity Tolerance, Functional Strength, Safety, Balance, Gait, Transfer, Bed Mobility, ROM Treatment/Plan Treatment Plan: Continue Plan of Care Treatment Plan: Bed Mobility, Education, Functional Activity Jennifer, Functional Strength, Group Therapy, Gait, Safety, Therapeutic Exercise, Transfers Treatment Duration: Aug 20, 2016 Visits Per Week: 10*-15 Minutes/Day (M-F): 60-90 Minutes/Day (Sat/Rojas): prn Safety Risks/Education Patient Education: Gait Training, Transfer Techniques, Correct Positioning, Safety Issues Teaching Recipient: Patient Teaching Methods: Demonstration, Discussion Response to Teaching: Reinforcement Needed Time/GCodes Time In: 945 Time Out: 1045 Total Billed Treatment Time: 60 Total Billed Treatment 1 visit GT 15 min EX 45 min RAVI PEREIRA PT Aug 06, 2016 10:40
--- NOTE | 2016-08-06 16:56 | Physical Therapy Daily Note ---
PT Daily Note-Current Subjective Pt sitting in recliner upon arrival. Pt agrees to PT. Pain Numeric Pain Scale: 7 Location: Left Location Body Site: Shoulder Pain Description: Sharp Comment: Pt reports pain with elbow & shoulder stretching Mental Status Patient Orientation: Person, Place, Time, Situation Attachments: Other-See Comments (RLE AFO) Transfers Functional [place] Measure 0=Not Assessed/NA 4=Minimal Assistance 1=Total Assistance 5=Supervision or Setup 2=Maximal Assistance 6=Modified [place] 3=Moderate Assistance 7=Complete IndependenceIRFPAI Quality Coding Scale 6 Independent with activity with or without an assistive device 5 Patient requires set up or clean up by helper. Patient completes activity by themselves 4 Supervision or touching assist ([facility]). [place] provide cues , steadying assist 3 The helper provides less than half the effort to complete the activity 2 The helper provides more than half the effort to complete the activity 1 Dependent. The helper does all the effort to complete an activity 7 Patient refused to complete or attempt activity 9 The patient did not perform the activity before the current illness or injury 88 Not attempted due to Medical conditions or safety concerns Transfers (B, C, W/C) (FIM): 5 Scootin Sit to/from Stand: 5 Sit to Stand (QC): 5 Weight Bearing Weight Bearing Restriction: Full Weight Bearing Location Restriction: LE Bilateral Gait Training Does the Patient Walk?: Yes Gait (FIM): 4 Distance (FIM): 3=150 ft Distance: 150' Walk 10 feet (QC): 5 Walk 50 ft with 2 Turns(QC): 4 Walk 150 ft (QC): 4 Gait Level of Assist: 4 Gait Persons Needed: 1 Gait Assistive Device: Walker 4 Wheeled Pt has slight L knee buckle during ambulation due to fatigue. Wheelchair Training Does the Pt Use a Wheelchair?: No Exercises NuStep Minutes: 15 NuStep Workload: 5 Treatments Pt transferred and ambulated using 4WW at [facility] for safety. Pt used NuStep for strengthening and activity tolerance. PT also used it to assist with BLE stiffness from not using for a while since morning tx. Pt lay supine on mat for shoulder & elbow flexion stretching. PT returned to recliner to rest and was left with all needs met at end of tx. Assessment Current Status: Good Progress Pt is improving with transfer and ambulation independence. Pt is also tolerating shoulder stretching better, with less pain. PT Short Term Goals Short Term Goals Time Frame: Aug 13, 2016 Transfers (B,C,W/C) (FIM): 5 Gait (FIM): 5 Distance (FIM): 6=393-30 ft Gait Assistive Device: Walker 4 Wheeled PT Esl Teacher Goals Shelter Goals PT Shelter Goals Time Frame: Aug 20, 2016 Transfers (B,C,W/C) (FIM): 6 Sit to Lying (QC): 6 Lying-Sitting on Side/Bed(QC): 6 Sit to Stand (QC): 6 Rollin Roll Left to Right (QC): 6 Chair/Rch-xk-Odalt Xfer(QC): 6 Car Transfer (QC): 5 Does the Patient Walk: Yes Gait (FIM): 6 Gait distance (FIM): 3=150 ft Walk 10 feet (QC): 6 Walk 10ft-Uneven Surface(QC): 6 Walk 50ft with 2 Turns (QC): 6 Walk 150 ft (QC): 6 Gait Level of Assist: 6 Gait Assistive Device: Walker 4 Wheeled Does the Pt use WC or Scooter?: Yes Wheelchair (FIM): 6 Wheelchair distance (FIM): 3=150 ft Wheel 50 feet with 2 turns (QC: 6 Stairs (FIM): 2 # of Steps: 1 1 Step (curb) (QC): 4 4 Steps (QC): 0 (no goal; unsafe) 12 Steps (QC): 0 (no goal; unsafe) Picking up an Object (QC): 3 PT Plan Problem List Problem List: Functional Strength, Safety, Gait, ROM Treatment/Plan Treatment Plan: Continue Plan of Care Treatment Plan: Bed Mobility, Education, Functional Activity Jennifer, Functional Strength, Group Therapy, Gait, Safety, Therapeutic Exercise, Transfers Treatment Duration: Aug 20, 2016 Visits Per Week: 10*-15 Minutes/Day (M-F): 60-90 Minutes/Day (Sat/Rojas): prn Safety Risks/Education Patient Education: Gait Training, Transfer Techniques, Correct Positioning, Safety Issues Teaching Recipient: Patient Teaching Methods: Discussion Response to Teaching: Verbalize Understanding Time/GCodes Time In: 1430 Time Out: 1500 Total Billed Treatment Time: 30 Total Billed Treatment visit, GT (10m) & EX (20m) NOAH KAUR PTA Aug 06, 2016 16:56
[2016-08-06] MEDS: ALFUZOSIN HCL 10 MG TAB (UROXATRAL) PO SCH (17:08)
[2016-08-06 20:10] VITALS: BP 122/71
[2016-08-06] MEDS: DOCUSATE SODIUM 100 MG (COLACE) CAP PO SCH (20:11)
[2016-08-06] MEDS: traZODone 50 MG (DESYREL) TAB PO SCH (20:14)
[2016-08-06] MEDS: lisINopril 20 MG (ZESTRIL) TAB PO SCH (20:14)
[2016-08-06] MEDS ORDERED: POLYETHYLENE GLYCOL 17 GM (MIRALAX) PACK PO SCH (21:00)
[2016-08-07] MEDS: oxyCODONE/APAP 5/325MG (PERCOCET 5) TABLET PO PRN ×2 (04:21→15:35)
[2016-08-07 06:00] VITALS: BP 107/48
[2016-08-07] MEDS: TROSPIUM 20 MG (SANCTURA) TAB PO SCH ×2 (06:14→15:35)
[2016-08-07 08:40] VITALS: BP 125/70
[2016-08-07] MEDS: VITAMIN D3 5,000 UNITS (CHOLECALCIFEROL ) CAPSULE PO SCH (08:46)
[2016-08-07] MEDS: DOCUSATE SODIUM 100 MG (COLACE) CAP PO SCH ×2 (08:46→20:32)
[2016-08-07] MEDS: FAMOTIDINE 20 MG (PEPCID) TABLET PO SCH ×2 (08:46→20:32)
[2016-08-07] MEDS: POLYETHYLENE GLYCOL 17 GM (MIRALAX) PACK PO SCH (08:46)
[2016-08-07] MEDS: HYDROCHLOROTHIAZIDE 25 MG (HCTZ) TAB PO SCH (08:46)
[2016-08-07] MEDS: OMEGA 3 (FISH OIL) 1000 MG CAP PO SCH (08:46)
[2016-08-07] MEDS: GABAPENTIN 300 MG (NEURONTIN) CAP PO SCH ×3 (08:46→20:32)
--- NOTE | 2016-08-07 10:35 | Physical Therapy Daily Note ---
PT Daily Note-Current Subjective Pt denies pain at rest. Pain rated 8/10 during sit to stand transfer, otherwise no pain. Mental Status Patient Orientation: Person, Place, Situation Transfers Functional [place] Measure 0=Not Assessed/NA 4=Minimal Assistance 1=Total Assistance 5=Supervision or Setup 2=Maximal Assistance 6=Modified [place] 3=Moderate Assistance 7=Complete IndependenceIRFPAI Quality Coding Scale 6 Independent with activity with or without an assistive device 5 Patient requires set up or clean up by helper. Patient completes activity by themselves 4 Supervision or touching assist (CGA). [place] provide cues , steadying assist 3 The helper provides less than half the effort to complete the activity 2 The helper provides more than half the effort to complete the activity 1 Dependent. The helper does all the effort to complete an activity 7 Patient refused to complete or attempt activity 9 The patient did not perform the activity before the current illness or injury 88 Not attempted due to Medical conditions or safety concerns Sit to stand, SBA Gait Training Gait Assistive Device: Walker 4 Wheeled Pt amb with 4ww and SBA 2 x 150ft Exercises NuStep Minutes: 5 NuStep Workload: 5 Treatments Pt seen for PROM (L) shoulder all planes x 20 each Assessment Current Status: Good Progress Pt nico well. Functional mobility improving steadily. Pt back to chair with call light and all needs met. PT Short Term Goals Short Term Goals Time Frame: Aug 13, 2016 Transfers (B,C,W/C) (FIM): 5 Gait (FIM): 5 Distance (FIM): 8=962-74 ft Gait Assistive Device: Walker 4 Wheeled PT Half-Way Goals [employer] Supervisor Goals PT Half-Way Goals Time Frame: Aug 20, 2016 Transfers (B,C,W/C) (FIM): 6 Sit to Lying (QC): 6 Lying-Sitting on Side/Bed(QC): 6 Sit to Stand (QC): 6 Rollin Roll Left to Right (QC): 6 Chair/Erd-ui-Offhf Xfer(QC): 6 Car Transfer (QC): 5 Does the Patient Walk: Yes Gait (FIM): 6 Gait distance (FIM): 3=150 ft Walk 10 feet (QC): 6 Walk 10ft-Uneven Surface(QC): 6 Walk 50ft with 2 Turns (QC): 6 Walk 150 ft (QC): 6 Gait Level of Assist: 6 Gait Assistive Device: Walker 4 Wheeled Does the Pt use WC or Scooter?: Yes Wheelchair (FIM): 6 Wheelchair distance (FIM): 3=150 ft Wheel 50 feet with 2 turns (QC: 6 Stairs (FIM): 2 # of Steps: 1 1 Step (curb) (QC): 4 4 Steps (QC): 0 (no goal; unsafe) 12 Steps (QC): 0 (no goal; unsafe) Picking up an Object (QC): 3 PT Plan Treatment/Plan Treatment Plan: Continue Plan of Care Treatment Plan: Bed Mobility, Education, Functional Activity Jennifer, Functional Strength, Group Therapy, Gait, Safety, Therapeutic Exercise, Transfers Treatment Duration: Aug 20, 2016 Visits Per Week: 10*-15 Minutes/Day (M-F): 60-90 Minutes/Day (Sat/Rojas): prn Time/GCodes Time In: 1005 Time Out: 1030 Total Billed Treatment Time: 25 Total Billed Treatment 1, gait 15min, ther ex 10min LUZ MARINA ISBELL CPTAmaya Aug 07, 2016 10:35
[2016-08-07] MEDS: ALFUZOSIN HCL 10 MG TAB (UROXATRAL) PO SCH (17:12)
[2016-08-07 17:58] VITALS: BP 125/79
[2016-08-07] MEDS: traZODone 50 MG (DESYREL) TAB PO SCH (20:32)
[2016-08-07] MEDS: lisINopril 20 MG (ZESTRIL) TAB PO SCH (20:33)
[2016-08-08] MEDS: TROSPIUM 20 MG (SANCTURA) TAB PO SCH ×2 (03:58→16:47)
[2016-08-08] MEDS: oxyCODONE/APAP 5/325MG (PERCOCET 5) TABLET PO PRN ×2 (03:59→17:24)
[2016-08-08 06:15] VITALS: BP 137/73
[2016-08-08] MEDS: VITAMIN D3 5,000 UNITS (CHOLECALCIFEROL ) CAPSULE PO SCH (10:10)
[2016-08-08] MEDS: DOCUSATE SODIUM 100 MG (COLACE) CAP PO SCH ×2 (10:10→20:30)
[2016-08-08] MEDS: OMEGA 3 (FISH OIL) 1000 MG CAP PO SCH (10:10)
[2016-08-08] MEDS: HYDROCHLOROTHIAZIDE 25 MG (HCTZ) TAB PO SCH (10:10)
[2016-08-08] MEDS: POLYETHYLENE GLYCOL 17 GM (MIRALAX) PACK PO SCH (10:10)
[2016-08-08] MEDS: GABAPENTIN 300 MG (NEURONTIN) CAP PO SCH ×3 (10:10→20:30)
[2016-08-08] MEDS: FAMOTIDINE 20 MG (PEPCID) TABLET PO SCH ×2 (10:10→20:30)
[2016-08-08] MEDS: ALFUZOSIN HCL 10 MG TAB (UROXATRAL) PO SCH (16:47)
[2016-08-08 18:18] VITALS: BP 133/73
[2016-08-08] MEDS: lisINopril 20 MG (ZESTRIL) TAB PO SCH (20:30)
[2016-08-08] MEDS: traZODone 50 MG (DESYREL) TAB PO SCH (20:30)
[2016-08-09 05:34] VITALS: BP 114/65
[2016-08-09] MEDS: TROSPIUM 20 MG (SANCTURA) TAB PO SCH ×2 (05:40→15:53)
[2016-08-09] MEDS: DOCUSATE SODIUM 100 MG (COLACE) CAP PO SCH ×2 (08:52→21:42)
[2016-08-09] MEDS: OMEGA 3 (FISH OIL) 1000 MG CAP PO SCH (08:52)
[2016-08-09] MEDS: GABAPENTIN 300 MG (NEURONTIN) CAP PO SCH ×3 (08:52→21:42)
[2016-08-09] MEDS: POLYETHYLENE GLYCOL 17 GM (MIRALAX) PACK PO SCH (08:53)
[2016-08-09] MEDS: HYDROCHLOROTHIAZIDE 25 MG (HCTZ) TAB PO SCH (08:53)
[2016-08-09] MEDS: VITAMIN D3 5,000 UNITS (CHOLECALCIFEROL ) CAPSULE PO SCH (08:53)
[2016-08-09] MEDS: FAMOTIDINE 20 MG (PEPCID) TABLET PO SCH ×2 (08:53→21:42)
--- NOTE | 2016-08-09 10:46 | Physical Therapy Daily Note ---
PT Daily Note-Current Subjective Patient in recliner pre tx, agrees to PT. States his left shoulder is pretty sore today. 7/10 pain. Appearance Patient in recliner post tx, has nurse call, phone, tray, all needs met. Ice pack on left shoulder fastened with gilberto wrap. Mental Status Patient Orientation: Normal For Age Transfers Functional [place] Measure 0=Not Assessed/NA 4=Minimal Assistance 1=Total Assistance 5=Supervision or Setup 2=Maximal Assistance 6=Modified [place] 3=Moderate Assistance 7=Complete IndependenceIRFPAI Quality Coding Scale 6 Independent with activity with or without an assistive device 5 Patient requires set up or clean up by helper. Patient completes activity by themselves 4 Supervision or touching assist (CGA). [place] provide cues , steadying assist 3 The helper provides less than half the effort to complete the activity 2 The helper provides more than half the effort to complete the activity 1 Dependent. The helper does all the effort to complete an activity 7 Patient refused to complete or attempt activity 9 The patient did not perform the activity before the current illness or injury 88 Not attempted due to Medical conditions or safety concerns Transfers (B, C, W/C) (FIM): 4 Scootin Rollin Supine to/from Sit: 6 Sit to/from Stand: 4 Patient needs min assist to stand from low surfaces. He can so from supine to sit even from his left side but it is difficult due to his left shoulder, no assist from therapist. Gait Training Gait (FIM): 6 Distance: 150'x2 Gait Assistive Device: Walker 4 Wheeled right KAFO, slow, no LOB Exercises PROM in flexion, abduction, IR, ER to left shoulder. NuStep Minutes: 20 NuStep Workload: 6 Treatments bed mobility and transfers, ambulation, functional strengthening, ROM to left shoulder Assessment Current Status: Fair Progress improving ROM in left shoulder, but more pain PT Short Term Goals Short Term Goals Time Frame: Aug 13, 2016 Transfers (B,C,W/C) (FIM): 5 Gait (FIM): 5 Distance (FIM): 5=753-71 ft Gait Assistive Device: Walker 4 Wheeled PT Specifications Checker Goals Specifications Checker Goals PT Longterm Goals Time Frame: Aug 20, 2016 Transfers (B,C,W/C) (FIM): 6 Sit to Lying (QC): 6 Lying-Sitting on Side/Bed(QC): 6 Sit to Stand (QC): 6 Rollin Roll Left to Right (QC): 6 Chair/Eyk-fz-Wbhzc Xfer(QC): 6 Car Transfer (QC): 5 Does the Patient Walk: Yes Gait (FIM): 6 Gait distance (FIM): 3=150 ft Walk 10 feet (QC): 6 Walk 10ft-Uneven Surface(QC): 6 Walk 50ft with 2 Turns (QC): 6 Walk 150 ft (QC): 6 Gait Level of Assist: 6 Gait Assistive Device: Walker 4 Wheeled Does the Pt use WC or Scooter?: Yes Wheelchair (FIM): 6 Wheelchair distance (FIM): 3=150 ft Wheel 50 feet with 2 turns (QC: 6 Stairs (FIM): 2 # of Steps: 1 1 Step (curb) (QC): 4 4 Steps (QC): 0 (no goal; unsafe) 12 Steps (QC): 0 (no goal; unsafe) Picking up an Object (QC): 3 PT Plan Problem List Problem List: Activity Tolerance, Functional Strength, Safety, Balance, Gait, Transfer, Bed Mobility, ROM Treatment/Plan Treatment Plan: Continue Plan of Care Treatment Plan: Bed Mobility, Education, Functional Activity Jennifer, Functional Strength, Group Therapy, Gait, Safety, Therapeutic Exercise, Transfers Treatment Duration: Aug 20, 2016 Visits Per Week: 10*-15 Minutes/Day (M-F): 60-90 Minutes/Day (Sat/Rojas): prn Safety Risks/Education Patient Education: Gait Training, Transfer Techniques, Reviewed Use of Ice, Correct Positioning, Safety Issues Teaching Recipient: Patient Teaching Methods: Demonstration, Discussion Response to Teaching: Reinforcement Needed Time/GCodes Time In: 945 Time Out: 1045 Total Billed Treatment Time: 60 Total Billed Treatment 1 visit GT 15 min FA 10 min EX 35 min RAVI PEREIRA PT Aug 09, 2016 10:46
--- NOTE | 2016-08-09 11:16 | Occupational Ther Daily Note ---
OT Current Status-Daily Note Subjective Pt. does report some pain with specific movements in left shoulder, but states that "it isn't all the time." Does not report a pain level and states that he didn't want pain meds. Appearance Pt. up in chair. Agrees to treatment. Mental Status/Objective Patient Orientation: Person, Place, Time, Situation Functional [place] Measure 0=Not Assessed/NA 4=Minimal Assistance 1=Total Assistance 5=Supervision or Setup 2=Maximal Assistance 6=Modified [place] 3=Moderate Assistance 7=Complete [place] ADL-Treatment Functional [place] Measure 0=Not Assessed/NA 4=Minimal Assistance 1=Total Assistance 5=Supervision or Setup 2=Maximal Assistance 6=Modified [place] 3=Moderate Assistance 7=Complete IndependenceIRFPAI Quality Coding Scale 6 Independent with activity with or without an assistive device 5 Patient requires set up or clean up by helper. Patient completes activity by themselves 4 Supervision or touching assist (CGA). [place] provide cues , steadying assist 3 The helper provides less than half the effort to complete the activity 2 The helper provides more than half the effort to complete the activity 1 Dependent. The helper does all the effort to complete an activity 7 Patient refused to complete or attempt activity 9 The patient did not perform the activity before the current illness or injury 88 Not attempted due to Medical conditions or safety concerns Bathing (FIM): 4 (Pt. is able to shower self with min assist to dry bilateral feet. Is able to stand and wash/dry rear donnell area with SBA. Is able to get all areas.) Shower/Bathe Self (QC): 4 Upper Body (FIM): 6 Upper Body Dressing (QC): 6 Lower Body Dressing (FIM): 6 (Pt. is able to retrieve clothing, and don them after shower. Is able to doff all clothing as well.) Lower Body Dressing (QC): 6 On/Off Footwear (QC): 6 Transfers (B, C, W/C) (FIM): 5 (Pt. is able to transfer with walker with SBA.) Shower Transfer(FIM): 5 (Pt. requires close SBA to get into and out of shower.) Other Treatment Pt. is able to bathe and dress self. Does require min assist to dry feet only. Pt. is able to don right LE brace as well. After shower and ADLs, pt. ambulates to therapy gym with SBA with walker. Completed gentle PROM to left UE to pt's tolerance level. Able to achieve approximately 90 degrees in shoulder flexion and abduction. Pt. then participated in shoulder activity with arm arc. Had difficulty utilizing left shoulder to move actively above 50 degrees in shoulder flexion. Pt. then completed fine motor task with pegs to increase strength overall. Ambulated back to room with all needs met back in room. Education OT Patient Education: Exercise program, Modified ADL techniques, Progress toward Goal/Update tx plan, Purpose of tx/functional activities, Reviewed precautions, Rehab process, Transfer techniques Teaching Recipient: Patient Teaching Methods: Demonstration, Discussion Response to Teaching: Verbalize Understanding, Return Demonstration OT Short Term Goals Short Term Goals Time Frame: Aug 11, 2016 Lower Body Dressing(FIM): 4 Transfers (B,C,W/C) (FIM): 5 Additional Short Term Goals: 2-Verbalize Understanding, 3-ImproveStrength/Jennifer 1=Demonstrate adherence to instructed precautions during ADL tasks. 2=Patient will verbalize/demonstrate understanding of assistive devices/ modifications for ADL. 3=Patient will improve strength/tolerance for activity to enable patient to perform ADL's. OT [employer] Goals [employer] Goals Time Frame: Aug 18, 2016 Eating (FIM): 6 Eating (QC): 6 Groomin Oral Hygiene (QC): 6 Bathing(FIM): 6 Shower/Bathe Self (QC): 6 Upper Body Dressing(FIM): 6 Upper Body Dressing (QC): 6 Lower Body Dressing(FIM): 6 Lower Body Dressing (QC): 6 On/Off Footwear (QC): 6 Toileting(FIM): 6 Toileting Hygiene (QC): 6 Toilet/Commode Transfer(FIM): 6 Toilet/Commode Transfer (QC): 6 Shower Transfer(FIM): 6 Additional Goals: 2-Verbalize Understanding, 3-ImproveStrength/Jennifer 1=Demonstrate adherence to instructed precautions during ADL tasks. 2=Patient will verbalize/demonstrate understanding of assistive devices/ modifications for ADL. 3=Patient will improve strength/tolerance for activity to enable patient to perform ADL's. 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 Discharge Recommendations Plan/Recommendations: Continue POC Therapy D/C Recommendations: Assisted Living Treatment Plan/Plan of Care Treatment,Training & Education: Yes Patient would benefit from OT for education, treatment and training to promote independence in ADL's, mobility, safety and/or upper extremity function for ADL' s. Plan of Care: ADL Retraining, Functional Mobility, Group Exercise/Act as Ind ( education, exercise, activity tolerance, functional activities, socialization), UE Funct Exercise/Act, UE Neuromus Re-Ed/Coord Treatment Duration: Aug 18, 2016 Visits Per Week: 10-11 Minutes/Day (M-F): 75-90 Minutes/Day (Sat/Rojas): PRN Agreement: Yes Rehab Potential: Good Time/GCodes Start Time: 08:15 Stop Time: 09:45 Total Time Billed (hr/min): 90 Billed Treatment Time 1, ADL x 45minutes, FA x 45minutes FRANK BLANC OT Aug 09, 2016 11:16
--- NOTE | 2016-08-09 14:02 | Physical Therapy Daily Note ---
PT Daily Note-Current Subjective Patient in recliner pre tx, agrees to PT. States he has 6/10 pain in left shoulder, also that his left leg is a little weak this afternoon. Appearance Patient in recliner post tx, has nurse call, phone, tray, all needs met. Mental Status Patient Orientation: Normal For Age Transfers Functional [place] Measure 0=Not Assessed/NA 4=Minimal Assistance 1=Total Assistance 5=Supervision or Setup 2=Maximal Assistance 6=Modified [place] 3=Moderate Assistance 7=Complete IndependenceIRFPAI Quality Coding Scale 6 Independent with activity with or without an assistive device 5 Patient requires set up or clean up by helper. Patient completes activity by themselves 4 Supervision or touching assist (CGA). [place] provide cues , steadying assist 3 The helper provides less than half the effort to complete the activity 2 The helper provides more than half the effort to complete the activity 1 Dependent. The helper does all the effort to complete an activity 7 Patient refused to complete or attempt activity 9 The patient did not perform the activity before the current illness or injury 88 Not attempted due to Medical conditions or safety concerns Transfers (B, C, W/C) (FIM): 4 Sit to/from Stand: 4 Patient needed min assist for sit to stand, especially because he says his left leg is weak today. Gait Training Gait (FIM): 6 Distance: 150'x2 Gait Assistive Device: Walker 4 Wheeled slow, no LOB, right KAFO Exercises left shoulder flexion PROM x 20 seated on parallel bars, AROM elbow flex/ext and wrist sup/pro, AROM seated shoulder flexion and abduction x 20 Treatments transfers, ambulation, right shoulder ROM Assessment Current Status: Fair Progress patient is making progress with PROM and AROM of left shoulder PT Short Term Goals Short Term Goals Time Frame: Aug 13, 2016 Transfers (B,C,W/C) (FIM): 5 Gait (FIM): 5 Distance (FIM): 2=631-95 ft Gait Assistive Device: Walker 4 Wheeled PT Long-Term Goals Long-Term Goals PT Long-Term Goals Time Frame: Aug 20, 2016 Transfers (B,C,W/C) (FIM): 6 Sit to Lying (QC): 6 Lying-Sitting on Side/Bed(QC): 6 Sit to Stand (QC): 6 Rollin Roll Left to Right (QC): 6 Chair/Jdj-ry-Wsucd Xfer(QC): 6 Car Transfer (QC): 5 Does the Patient Walk: Yes Gait (FIM): 6 Gait distance (FIM): 3=150 ft Walk 10 feet (QC): 6 Walk 10ft-Uneven Surface(QC): 6 Walk 50ft with 2 Turns (QC): 6 Walk 150 ft (QC): 6 Gait Level of Assist: 6 Gait Assistive Device: Walker 4 Wheeled Does the Pt use WC or Scooter?: Yes Wheelchair (FIM): 6 Wheelchair distance (FIM): 3=150 ft Wheel 50 feet with 2 turns (QC: 6 Stairs (FIM): 2 # of Steps: 1 1 Step (curb) (QC): 4 4 Steps (QC): 0 (no goal; unsafe) 12 Steps (QC): 0 (no goal; unsafe) Picking up an Object (QC): 3 PT Plan Problem List Problem List: Activity Tolerance, Functional Strength, Safety, Balance, Gait, Transfer, Bed Mobility, ROM Treatment/Plan Treatment Plan: Continue Plan of Care Treatment Plan: Bed Mobility, Education, Functional Activity Jennifer, Functional Strength, Group Therapy, Gait, Safety, Therapeutic Exercise, Transfers Treatment Duration: Aug 20, 2016 Visits Per Week: 10*-15 Minutes/Day (M-F): 60-90 Minutes/Day (Sat/Rojas): prn Safety Risks/Education Patient Education: Gait Training, Transfer Techniques, Safety Issues Teaching Recipient: Patient Teaching Methods: Demonstration, Discussion Response to Teaching: Reinforcement Needed Time/GCodes Time In: 1330 Time Out: 1400 Total Billed Treatment Time: 30 Total Billed Treatment 1 visit GT 10 min EX 20 min RAVI PEREIRA PT Aug 09, 2016 14:02
[2016-08-09 17:35] VITALS: BP 123/68
[2016-08-09] MEDS: ALFUZOSIN HCL 10 MG TAB (UROXATRAL) PO SCH (18:19)
--- NOTE | 2016-08-09 19:42 | PM & R (SOAP) Progress Note ---
Subjective Subjective/Events-last exam Patient was seen in his room this evening Patient min assist for transfers Appreciate Dr Rosado note Patient had BM with adjustment in meds Discussed case with RN Objective Exam Last Set of Vital Signs Vital Signs Date Time Temp Pulse Resp B/P Pulse Ox O2 Delivery O2 Flow Rate FiO2 08/09/16 17:35 97.8 75 18 123/68 96 Room Air Capillary Refill : I&O Intake and Output 08/09/16 00:00 Intake Total 1530 ml Balance 1530 ml Intake Oral 1530 ml # Voids 8 General: Alert, Oriented X3, Cooperative, No Acute Distress HEENT: Atraumatic, PERRLA, EOMI, Mucous Memb Moist/[place] Neck: Supple, No JVD Lungs: Clear to Auscultation Heart: Regular Rate Abdomen: Normal Bowel Sounds, Soft, No Tenderness Extremities: No Edema, Other (ice apk left shoulder) Skin: Other (incision healing) Neuro: Other (RT Leg weakness as residual of polio Has long leg brace) Assessment/Plan Assessment S/P Left shoulder arthroscopy DR Wilson activity as tolerated Postpolio syndrome wears long leg brace HTN controlled DJD shoulders S/P C spine surgery for radiculopathy rt arm [facility] 2000 Postop constipation treated Plan Continue PT/OT/Pain management F/U with DR Wilson and PCP PRN Team Conference 08/11/16 CASEY CONNOR MD Aug 09, 2016 19:42
[2016-08-09] MEDS ORDERED: POLYETHYLENE GLYCOL 17 GM (MIRALAX) PACK PO SCH (21:00)
[2016-08-09] MEDS: lisINopril 20 MG (ZESTRIL) TAB PO SCH (21:42)
[2016-08-09] MEDS: traZODone 50 MG (DESYREL) TAB PO SCH (21:42)
[2016-08-10] MEDS: TROSPIUM 20 MG (SANCTURA) TAB PO SCH ×2 (05:59→17:33)
[2016-08-10 06:00] VITALS: BP_SYST 135; BP_SYST 155; BP_DIAS 77; BP_DIAS 81
--- NOTE | 2016-08-10 08:47 | Occupational Ther Daily Note ---
OT Current Status-Daily Note Subjective Pt alert, sitting in recliner. Pt agreed to therapy. No c/o pain at this time. Mental Status/Objective Patient Orientation: Person, Place, Time, Situation Functional [place] Measure 0=Not Assessed/NA 4=Minimal Assistance 1=Total Assistance 5=Supervision or Setup 2=Maximal Assistance 6=Modified [place] 3=Moderate Assistance 7=Complete [place] ADL-Treatment Pt declined sponge bath or shower today. Pt was mostly dressed when OT came into room. Pt was able to hike pants over hips though due to tight waist band required assistance to button, later pt attempted again then was able to complete by self. Pt had a difficult time to go from sit to stand due to weakness in L LE and pain with wt bearing through L shldr. Pt requires min A to stand from seat on 4WW due to height of handles then min A to go from supine to sitting due to inability to extend L UE to push up from bed. Functional [place] Measure 0=Not Assessed/NA 4=Minimal Assistance 1=Total Assistance 5=Supervision or Setup 2=Maximal Assistance 6=Modified [place] 3=Moderate Assistance 7=Complete IndependenceIRFPAI Quality Coding Scale 6 Independent with activity with or without an assistive device 5 Patient requires set up or clean up by helper. Patient completes activity by themselves 4 Supervision or touching assist (CGA). [place] provide cues , steadying assist 3 The helper provides less than half the effort to complete the activity 2 The helper provides more than half the effort to complete the activity 1 Dependent. The helper does all the effort to complete an activity 7 Patient refused to complete or attempt activity 9 The patient did not perform the activity before the current illness or injury 88 Not attempted due to Medical conditions or safety concerns Other Treatment Pt completed AAROM exercises for UE to increase AROM using pulleys and arm bike for daily functional tasks. Using PROM pt is able complete 90* abduction and shldr flexion. Pt tolerated well though had pain from L elbow to shldr with active movement. After therapy, pt sitting in recliner in room with call light/ phone in reach. All needs met in room. OT Short Term Goals Short Term Goals Time Frame: Aug 11, 2016 Lower Body Dressing(FIM): 4 Transfers (B,C,W/C) (FIM): 5 Additional Short Term Goals: 2-Verbalize Understanding, 3-ImproveStrength/Jennifer 1=Demonstrate adherence to instructed precautions during ADL tasks. 2=Patient will verbalize/demonstrate understanding of assistive devices/ modifications for ADL. 3=Patient will improve strength/tolerance for activity to enable patient to perform ADL's. OT Retirement Goals Retirement Goals Time Frame: Aug 18, 2016 Eating (FIM): 6 Eating (QC): 6 Groomin Oral Hygiene (QC): 6 Bathing(FIM): 6 Shower/Bathe Self (QC): 6 Upper Body Dressing(FIM): 6 Upper Body Dressing (QC): 6 Lower Body Dressing(FIM): 6 Lower Body Dressing (QC): 6 On/Off Footwear (QC): 6 Toileting(FIM): 6 Toileting Hygiene (QC): 6 Toilet/Commode Transfer(FIM): 6 Toilet/Commode Transfer (QC): 6 Shower Transfer(FIM): 6 Additional Goals: 2-Verbalize Understanding, 3-ImproveStrength/Jennifer 1=Demonstrate adherence to instructed precautions during ADL tasks. 2=Patient will verbalize/demonstrate understanding of assistive devices/ modifications for ADL. 3=Patient will improve strength/tolerance for activity to enable patient to perform ADL's. 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 Discharge Recommendations Plan/Recommendations: Continue POC Treatment Plan/Plan of Care Patient would benefit from OT for education, treatment and training to promote independence in ADL's, mobility, safety and/or upper extremity function for ADL' s. Plan of Care: ADL Retraining, Functional Mobility, Group Exercise/Act as Ind ( education, exercise, activity tolerance, functional activities, socialization), UE Funct Exercise/Act, UE Neuromus Re-Ed/Coord Treatment Duration: Aug 18, 2016 Visits Per Week: 10-11 Minutes/Day (M-F): 75-90 Minutes/Day (Sat/Rojas): PRN Agreement: Yes Rehab Potential: Good Time/GCodes Start Time: 07:15 Stop Time: 08:45 Total Time Billed (hr/min): 90 Billed Treatment Time 1 visit-FA 2 (30 min) EX 4 (60 min) ZAIDA FULLER Aug 10, 2016 08:47
[2016-08-10] MEDS: DOCUSATE SODIUM 100 MG (COLACE) CAP PO SCH ×2 (08:59→20:26)
[2016-08-10] MEDS: FAMOTIDINE 20 MG (PEPCID) TABLET PO SCH ×2 (08:59→20:26)
[2016-08-10] MEDS: VITAMIN D3 5,000 UNITS (CHOLECALCIFEROL ) CAPSULE PO SCH (08:59)
[2016-08-10] MEDS: GABAPENTIN 300 MG (NEURONTIN) CAP PO SCH ×3 (08:59→20:26)
[2016-08-10] MEDS: OMEGA 3 (FISH OIL) 1000 MG CAP PO SCH (08:59)
[2016-08-10] MEDS: HYDROCHLOROTHIAZIDE 25 MG (HCTZ) TAB PO SCH (08:59)
[2016-08-10] MEDS: POLYETHYLENE GLYCOL 17 GM (MIRALAX) PACK PO SCH (09:04)
--- NOTE | 2016-08-10 09:56 | Physical Therapy Daily Note ---
PT Daily Note-Current Subjective Patient in recliner pre tx, agrees to PT. Patient states he has no pain at rest. Appearance Patient in recliner post tx with nurse call, phone, tray, all needs met. Mental Status Patient Orientation: Normal For Age Transfers Functional [place] Measure 0=Not Assessed/NA 4=Minimal Assistance 1=Total Assistance 5=Supervision or Setup 2=Maximal Assistance 6=Modified [place] 3=Moderate Assistance 7=Complete IndependenceIRFPAI Quality Coding Scale 6 Independent with activity with or without an assistive device 5 Patient requires set up or clean up by helper. Patient completes activity by themselves 4 Supervision or touching assist (CGA). [place] provide cues , steadying assist 3 The helper provides less than half the effort to complete the activity 2 The helper provides more than half the effort to complete the activity 1 Dependent. The helper does all the effort to complete an activity 7 Patient refused to complete or attempt activity 9 The patient did not perform the activity before the current illness or injury 88 Not attempted due to Medical conditions or safety concerns Transfers (B, C, W/C) (FIM): 4 Sit to/from Stand: 4 Patient still needs min assist to stand from lower surfaces. Gait Training Gait (FIM): 6 Distance: 150'x2 Gait Assistive Device: Walker 4 Wheeled right KAFO Exercises PROM pulleys x 20 flex/scap NuStep Minutes: 20 NuStep Workload: 6 Treatments functional strengthening, ROM, ambulation, transfers Assessment Current Status: Fair Progress Patient had a lot of trouble with scaption on the pulleys, there was more pain/ catching in left shoulder. Ice applied and held in place with gilberto wrap before ambulating back to his room. PT Short Term Goals Short Term Goals Time Frame: Aug 13, 2016 Transfers (B,C,W/C) (FIM): 5 Gait (FIM): 5 Distance (FIM): 3=155-05 ft Gait Assistive Device: Walker 4 Wheeled PT [facility] Goals [place] Feeder Goals PT [facility] Goals Time Frame: Aug 20, 2016 Transfers (B,C,W/C) (FIM): 6 Sit to Lying (QC): 6 Lying-Sitting on Side/Bed(QC): 6 Sit to Stand (QC): 6 Rollin Roll Left to Right (QC): 6 Chair/Aow-xr-Dmlig Xfer(QC): 6 Car Transfer (QC): 5 Does the Patient Walk: Yes Gait (FIM): 6 Gait distance (FIM): 3=150 ft Walk 10 feet (QC): 6 Walk 10ft-Uneven Surface(QC): 6 Walk 50ft with 2 Turns (QC): 6 Walk 150 ft (QC): 6 Gait Level of Assist: 6 Gait Assistive Device: Walker 4 Wheeled Does the Pt use WC or Scooter?: Yes Wheelchair (FIM): 6 Wheelchair distance (FIM): 3=150 ft Wheel 50 feet with 2 turns (QC: 6 Stairs (FIM): 2 # of Steps: 1 1 Step (curb) (QC): 4 4 Steps (QC): 0 (no goal; unsafe) 12 Steps (QC): 0 (no goal; unsafe) Picking up an Object (QC): 3 PT Plan Problem List Problem List: Activity Tolerance, Functional Strength, Safety, Balance, Gait, Transfer, Bed Mobility, ROM Treatment/Plan Treatment Plan: Continue Plan of Care Treatment Plan: Bed Mobility, Education, Functional Activity Jennifer, Functional Strength, Group Therapy, Gait, Safety, Therapeutic Exercise, Transfers Treatment Duration: Aug 20, 2016 Visits Per Week: 10*-15 Minutes/Day (M-F): 60-90 Minutes/Day (Sat/Rojas): prn Safety Risks/Education Patient Education: Gait Training, Transfer Techniques, Correct Positioning, Disease Process, Safety Issues Teaching Recipient: Patient Teaching Methods: Demonstration, Discussion Response to Teaching: Reinforcement Needed Time/GCodes Time In: 855 Time Out: 955 Total Billed Treatment Time: 60 Total Billed Treatment 1 visit EX 30 min GT 30 min RAVI PEREIRA PT Aug 10, 2016 09:56
--- NOTE | 2016-08-10 11:23 | PM & R (SOAP) Progress Note ---
Subjective Subjective/Events-last exam Patient was seen in his room this AM Patient still concerned about constipation Did have one BM Patient dosent like to take bowel med a night due to Long leg Brace Discussed with Nursing last evening Meds adjusted Patient min assist for transfers Objective Exam Last Set of Vital Signs Vital Signs Date Time Temp Pulse Resp B/P Pulse Ox O2 Delivery O2 Flow Rate FiO2 08/10/16 09:00 Room Air 08/10/16 06:00 97.6 80 20 135/77 92 Capillary Refill : I&O Intake and Output 08/10/16 00:00 Intake Total 1660 ml Balance 1660 ml Intake Oral 1660 ml # Voids 9 # Bowel Movements 1 General: Alert, Oriented X3, Cooperative, No Acute Distress HEENT: Atraumatic, PERRLA, EOMI, Mucous Memb Moist/[place] Neck: Supple, No JVD Lungs: Clear to Auscultation Heart: Regular Rate Abdomen: Normal Bowel Sounds, Soft, No Tenderness Extremities: No Edema, Other (ice apk left shoulder) Skin: Other (incision healing) Neuro: Other (RT Leg weakness as residual of polio Has long leg brace) Assessment/Plan Assessment S/P Left shoulder arthroscopy DR Wilson activity as tolerated 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
[2016-08-10] MEDS: POLYETHYLENE GLYCOL 17 GM (MIRALAX) PACK PO PRN (13:57)
[2016-08-10] MEDS: ACETAMINOPHEN 500 MG TAB (TYLENOL) PO PRN (13:58)
--- NOTE | 2016-08-10 14:19 | Physical Therapy Daily Note ---
PT Daily Note-Current Subjective Patient in recliner pre tx, agrees to PT. No pain at rest. Appearance Patient in recliner post tx with nurse call, phone, tray, all needs met. Mental Status Patient Orientation: Normal For Age Transfers Functional [place] Measure 0=Not Assessed/NA 4=Minimal Assistance 1=Total Assistance 5=Supervision or Setup 2=Maximal Assistance 6=Modified [place] 3=Moderate Assistance 7=Complete IndependenceIRFPAI Quality Coding Scale 6 Independent with activity with or without an assistive device 5 Patient requires set up or clean up by helper. Patient completes activity by themselves 4 Supervision or touching assist (CGA). [place] provide cues , steadying assist 3 The helper provides less than half the effort to complete the activity 2 The helper provides more than half the effort to complete the activity 1 Dependent. The helper does all the effort to complete an activity 7 Patient refused to complete or attempt activity 9 The patient did not perform the activity before the current illness or injury 88 Not attempted due to Medical conditions or safety concerns Transfers (B, C, W/C) (FIM): 4 Sit to/from Stand: 4 Patient needed min assist to stand from the recliner. Gait Training Gait (FIM): 6 Distance: 150'x2 Gait Assistive Device: Walker 4 Wheeled right KAFO Exercises PROM to left shoulder ROM is the following flexion 130 degrees, abduction 110 degrees, ER 45 degrees, IR 70 degrees. Treatments transfers, ambulation, PROM to left shoulder Assessment Current Status: Fair Progress Patient is increasing ROM in left shoulder but progress has been slow due to pain and he resists movement. PT Short Term Goals Short Term Goals Time Frame: Aug 13, 2016 Transfers (B,C,W/C) (FIM): 5 Gait (FIM): 5 Distance (FIM): 0=082-00 ft Gait Assistive Device: Walker 4 Wheeled PT Usp Goals Loan Interviewer Goals PT Loan Interviewer Goals Time Frame: Aug 20, 2016 Transfers (B,C,W/C) (FIM): 6 Sit to Lying (QC): 6 Lying-Sitting on Side/Bed(QC): 6 Sit to Stand (QC): 6 Rollin Roll Left to Right (QC): 6 Chair/Xcl-sh-Zcbmx Xfer(QC): 6 Car Transfer (QC): 5 Does the Patient Walk: Yes Gait (FIM): 6 Gait distance (FIM): 3=150 ft Walk 10 feet (QC): 6 Walk 10ft-Uneven Surface(QC): 6 Walk 50ft with 2 Turns (QC): 6 Walk 150 ft (QC): 6 Gait Level of Assist: 6 Gait Assistive Device: Walker 4 Wheeled Does the Pt use WC or Scooter?: Yes Wheelchair (FIM): 6 Wheelchair distance (FIM): 3=150 ft Wheel 50 feet with 2 turns (QC: 6 Stairs (FIM): 2 # of Steps: 1 1 Step (curb) (QC): 4 4 Steps (QC): 0 (no goal; unsafe) 12 Steps (QC): 0 (no goal; unsafe) Picking up an Object (QC): 3 PT Plan Problem List Problem List: Activity Tolerance, Functional Strength, Safety, Balance, Gait, Transfer, Bed Mobility, ROM Treatment/Plan Treatment Plan: Continue Plan of Care Treatment Plan: Bed Mobility, Education, Functional Activity Jennifer, Functional Strength, Group Therapy, Gait, Safety, Therapeutic Exercise, Transfers Treatment Duration: Aug 20, 2016 Visits Per Week: 10*-15 Minutes/Day (M-F): 60-90 Minutes/Day (Sat/Rojas): prn Safety Risks/Education Patient Education: Gait Training, Transfer Techniques, Correct Positioning, Safety Issues Teaching Recipient: Patient Teaching Methods: Demonstration, Discussion Response to Teaching: Reinforcement Needed Time/GCodes Time In: 1330 Time Out: 1400 Total Billed Treatment Time: 30 Total Billed Treatment 1 visit EX 20 min GT 10 min RAVI PEREIRA PT Aug 10, 2016 14:19
[2016-08-10] MEDS: ALFUZOSIN HCL 10 MG TAB (UROXATRAL) PO SCH (17:33)
[2016-08-10 17:58] VITALS: BP 116/72
[2016-08-10] MEDS: traZODone 50 MG (DESYREL) TAB PO SCH (20:26)
[2016-08-10] MEDS: lisINopril 20 MG (ZESTRIL) TAB PO SCH (20:26)
[2016-08-11] MEDS: TROSPIUM 20 MG (SANCTURA) TAB PO SCH ×2 (05:50→16:06)
[2016-08-11 06:00] VITALS: BP 112/66
--- NOTE | 2016-08-11 08:03 | Occupational Ther Daily Note ---
OT Current Status-Daily Note Subjective Pt alert, sitting EOB. Pt agreed to therapy. Pt c/o L shldr pain, did not rate. Pt tore off toenail last night, it was snagging his socks. Nrsg notified , bandage applied. Mental Status/Objective Patient Orientation: Person, Place, Time, Situation Functional [place] Measure 0=Not Assessed/NA 4=Minimal Assistance 1=Total Assistance 5=Supervision or Setup 2=Maximal Assistance 6=Modified [place] 3=Moderate Assistance 7=Complete [place] ADL-Treatment Functional [place] Measure 0=Not Assessed/NA 4=Minimal Assistance 1=Total Assistance 5=Supervision or Setup 2=Maximal Assistance 6=Modified [place] 3=Moderate Assistance 7=Complete IndependenceIRFPAI Quality Coding Scale 6 Independent with activity with or without an assistive device 5 Patient requires set up or clean up by helper. Patient completes activity by themselves 4 Supervision or touching assist (CGA). [place] provide cues , steadying assist 3 The helper provides less than half the effort to complete the activity 2 The helper provides more than half the effort to complete the activity 1 Dependent. The helper does all the effort to complete an activity 7 Patient refused to complete or attempt activity 9 The patient did not perform the activity before the current illness or injury 88 Not attempted due to Medical conditions or safety concerns Grooming (FIM): 6 (4WW standing at sink, completed own grooming.) Oral Hygiene (QC): 6 (Dentures. Standing at sink completed by self.) Bathing (FIM): 5 (Using shower chair with back, grabbars and hand held shower pt is able to complete own bathing. Pt sits and leans side to side to cleanse buttocks. Supervision when standing to dry buttocks.) Shower/Bathe Self (QC): 4 (Using shower chair with back, grabbars and hand held shower pt is able to complete own bathing. Pt sits and leans side to side to cleanse buttocks. Supervision when standing to dry buttocks.) Upper Body (FIM): 6 (Retrieves clothes from suitcase. Dons/doffs clothing by self.) Upper Body Dressing (QC): 6 (Retrieves clothes from suitcase. Dons/doffs clothing by self.) Lower Body Dressing (FIM): 6 (Retrieves clothes from suitcase. Dons/doffs clothing by self. Uses sock aide to don L sock.) Lower Body Dressing (QC): 6 (Retrieves clothes from suitcase. Dons/doffs clothing by self. Uses sock aide to don L sock.) On/Off Footwear (QC): 6 (Retrieves clothes from suitcase. Dons/doffs clothing by self. Uses sock aide to don L sock.) Toileting (FIM): 6 (Uses 4WW, BSC and grabbars to complete by self.) Toileting Hygiene (QC): 6 (Uses 4WW, BSC and grabbars to complete by self.) Transfers (B, C, W/C) (FIM): 6 (Using 4WW, pt is able to complete. Increased pain in L shldr when pushing to stand.) Toilet/Commode Transfer (FIM): 6 (Using BSC, 4WW and grabbars pt is able to complete.) Toilet Transfer (QC): 6 (Using BSC, 4WW and grabbars pt is able to complete.) Shower Transfer(FIM): 5 (Using shower bench, grabbars and forearm crutches was able to complete with SBA.) Pt does have increased pain with L shldr when pushing to stand, position of arm was shldr retraction, hyperextension with elbow flexion. Pt states that it feels like his arm gets caught in a position. After therapy, pt sitting in recliner with call light/phone in reach. All needs met in room. OT Short Term Goals Short Term Goals Time Frame: Aug 11, 2016 Lower Body Dressing(FIM): 4 Transfers (B,C,W/C) (FIM): 5 Additional Short Term Goals: 2-Verbalize Understanding, 3-ImproveStrength/Jennifer 1=Demonstrate adherence to instructed precautions during ADL tasks. 2=Patient will verbalize/demonstrate understanding of assistive devices/ modifications for ADL. 3=Patient will improve strength/tolerance for activity to enable patient to perform ADL's. OT Penitentiary Goals Penitentiary Goals Time Frame: Aug 18, 2016 Eating (FIM): 6 Eating (QC): 6 Groomin Oral Hygiene (QC): 6 Bathing(FIM): 6 Shower/Bathe Self (QC): 6 Upper Body Dressing(FIM): 6 Upper Body Dressing (QC): 6 Lower Body Dressing(FIM): 6 Lower Body Dressing (QC): 6 On/Off Footwear (QC): 6 Toileting(FIM): 6 Toileting Hygiene (QC): 6 Toilet/Commode Transfer(FIM): 6 Toilet/Commode Transfer (QC): 6 Shower Transfer(FIM): 6 Additional Goals: 2-Verbalize Understanding, 3-ImproveStrength/Jennifer 1=Demonstrate adherence to instructed precautions during ADL tasks. 2=Patient will verbalize/demonstrate understanding of assistive devices/ modifications for ADL. 3=Patient will improve strength/tolerance for activity to enable patient to perform ADL's. 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 Discharge Recommendations Plan/Recommendations: Continue POC Treatment Plan/Plan of Care Patient would benefit from OT for education, treatment and training to promote independence in ADL's, mobility, safety and/or upper extremity function for ADL' s. Plan of Care: ADL Retraining, Functional Mobility, Group Exercise/Act as Ind ( education, exercise, activity tolerance, functional activities, socialization), UE Funct Exercise/Act, UE Neuromus Re-Ed/Coord Treatment Duration: Aug 18, 2016 Visits Per Week: 10-11 Minutes/Day (M-F): 75-90 Minutes/Day (Sat/Rojas): PRN Agreement: Yes Rehab Potential: Good Time/GCodes Start Time: 07:00 Stop Time: 08:00 Total Time Billed (hr/min): 60 Billed Treatment Time 1 visit-ADL 4 (60 min) ZAIDA FULLER Aug 11, 2016 08:03
[2016-08-11] MEDS: FAMOTIDINE 20 MG (PEPCID) TABLET PO SCH ×2 (08:41→20:25)
[2016-08-11] MEDS: GABAPENTIN 300 MG (NEURONTIN) CAP PO SCH ×3 (08:41→20:25)
[2016-08-11] MEDS: DOCUSATE SODIUM 100 MG (COLACE) CAP PO SCH ×2 (08:41→20:25)
[2016-08-11] MEDS: HYDROCHLOROTHIAZIDE 25 MG (HCTZ) TAB PO SCH (08:41)
[2016-08-11] MEDS: OMEGA 3 (FISH OIL) 1000 MG CAP PO SCH (08:41)
[2016-08-11] MEDS: VITAMIN D3 5,000 UNITS (CHOLECALCIFEROL ) CAPSULE PO SCH (08:41)
[2016-08-11] MEDS: POLYETHYLENE GLYCOL 17 GM (MIRALAX) PACK PO SCH (08:41)
[2016-08-11 08:42] VITALS: BP 118/69
--- NOTE | 2016-08-11 10:52 | Physical Therapy Daily Note ---
PT Daily Note-Current Subjective Pt standing at sink in his bathroom upon arrival. Pt agrees to PT. Pain Numeric Pain Scale: 6 Location: Left Location Body Site: Shoulder Pain Description: Ache Comment: Pt reports 6/10 pain with movement of L shoulder. Mental Status Patient Orientation: Person, Place, Time, Situation Attachments: Other-See Comments Pt post polio and wears KAFO on RLE. Transfers Functional [place] Measure 0=Not Assessed/NA 4=Minimal Assistance 1=Total Assistance 5=Supervision or Setup 2=Maximal Assistance 6=Modified [place] 3=Moderate Assistance 7=Complete IndependenceIRFPAI Quality Coding Scale 6 Independent with activity with or without an assistive device 5 Patient requires set up or clean up by helper. Patient completes activity by themselves 4 Supervision or touching assist (CGA). [place] provide cues , steadying assist 3 The helper provides less than half the effort to complete the activity 2 The helper provides more than half the effort to complete the activity 1 Dependent. The helper does all the effort to complete an activity 7 Patient refused to complete or attempt activity 9 The patient did not perform the activity before the current illness or injury 88 Not attempted due to Medical conditions or safety concerns Transfers (B, C, W/C) (FIM): 5 Scootin Sit to/from Stand: 5 Sit to Stand (QC): 5 Chair/Alp-ij-Dughk Xfer(QC): 5 Bed to/from Chair: 5 Pt transfers from mat SBA this morning. Weight Bearing Weight Bearing Restriction: Full Weight Bearing Location Restriction: LE Bilateral Gait Training Does the Patient Walk?: Yes Gait (FIM): 4 Distance (FIM): 3=150 ft Distance: 150' Walk 10 feet (QC): 5 Walk 50 ft with 2 Turns(QC): 5 Walk 150 ft (QC): 4 Gait Level of Assist: 4 Gait Persons Needed: 1 Gait Assistive Device: Walker 4 Wheeled Pt is SBA with ambulation although PT will be CGA on longer ambulation and at end of tx due to fatigue. Wheelchair Training Does the Pt Use a Wheelchair?: No Treatments Pt transfers SBA and ambulates CGA-SBA using 4WW. Pt uses NuStep for strengthening although LUE is not used. Pt completes LUE AROM stretching using towel while at //bars then PROM for flexibility and ROM supine on mat. Pt then returns to recliner in room to rest with all needs met at end of tx. Assessment Current Status: Fair Progress Pt reports more pain in LUE today than yesterday. Pt also reports sleeping on L side per his usual as well as getting more focus on LUE both stretching on mat as well as using pulleys. PT Short Term Goals Short Term Goals Time Frame: Aug 13, 2016 Transfers (B,C,W/C) (FIM): 5 Gait (FIM): 5 Distance (FIM): 3=183-70 ft Gait Assistive Device: Walker 4 Wheeled PT Fdc Goals Mailer Apprentice Goals PT Fdc Goals Time Frame: Aug 20, 2016 Transfers (B,C,W/C) (FIM): 6 Sit to Lying (QC): 6 Lying-Sitting on Side/Bed(QC): 6 Sit to Stand (QC): 6 Rollin Roll Left to Right (QC): 6 Chair/Nya-vm-Csnkd Xfer(QC): 6 Car Transfer (QC): 5 Does the Patient Walk: Yes Gait (FIM): 6 Gait distance (FIM): 3=150 ft Walk 10 feet (QC): 6 Walk 10ft-Uneven Surface(QC): 6 Walk 50ft with 2 Turns (QC): 6 Walk 150 ft (QC): 6 Gait Level of Assist: 6 Gait Assistive Device: Walker 4 Wheeled Does the Pt use WC or Scooter?: Yes Wheelchair (FIM): 6 Wheelchair distance (FIM): 3=150 ft Wheel 50 feet with 2 turns (QC: 6 Stairs (FIM): 2 # of Steps: 1 1 Step (curb) (QC): 4 4 Steps (QC): 0 (no goal; unsafe) 12 Steps (QC): 0 (no goal; unsafe) Picking up an Object (QC): 3 PT Plan Problem List Problem List: Activity Tolerance, Functional Strength, Safety, Balance, Gait Treatment/Plan Treatment Plan: Continue Plan of Care Treatment Plan: Bed Mobility, Education, Functional Activity Jennifer, Functional Strength, Group Therapy, Gait, Safety, Therapeutic Exercise, Transfers Treatment Duration: Aug 20, 2016 Visits Per Week: 10*-15 Minutes/Day (M-F): 60-90 Minutes/Day (Sat/Rojas): prn Safety Risks/Education Patient Education: Gait Training, Transfer Techniques, Correct Positioning, Safety Issues Teaching Recipient: Patient Teaching Methods: Discussion Response to Teaching: Verbalize Understanding Time/GCodes Time In: 935 Time Out: 1035 Total Billed Treatment Time: 60 Total Billed Treatment visit, GT (15m), FA (15m) & EX X2 (30m) NOAH KAUR PTA Aug 11, 2016 10:52
--- NOTE | 2016-08-11 11:42 | Progress Note-Standard ---
Standard Progress Note Progress Notes/Assess & Plan Progress/Assessment & Plan No complaints LUE--dressing in place. NVI doing well s/p L shoulder arthroscopy activities ad ada Final Diagnosis Reports improvement LUE-- active FE 60. s/p l DCE continue PT /OT FU as outpatient next week YAJAIRA ANN MD Aug 11, 2016 11:42
--- NOTE | 2016-08-11 14:29 | Therapy Group Daily Note ---
Therapy Daily Group Note Patient Education Topic Exercises (Benefits of Stretching) Exercises LE Seated Exercise, UE Exercise Other/Notes Pt ambulated to OT/PT group with 4WW. Group consisted of introductions (name, place, own relaxation), socialization, education on stretching, UE/LE seated exercises, indoor signs/environmental Bingo. Pt actively participated in group. Pt was able to contribute to discussions each topic. Pt interacted with each peer appropriately. Attempted to complete UE/LE seated exercises, decreased ROM of L shldr. Pt was able to manipulate bingo chips, match pictures and follow directions throughout activities. After group, pt ambulated back to room with 4WW by self. Call light/phone in reach. All needs met in room. Start Time: 13:00 Stop Time: 14:05 Total Billed Treatment Time: 65 Total Billed Treatment 1-GRP ZAIDA FULLER Aug 11, 2016 14:29
[2016-08-11] MEDS: POLYETHYLENE GLYCOL 17 GM (MIRALAX) PACK PO PRN (15:55)
[2016-08-11] MEDS: ALFUZOSIN HCL 10 MG TAB (UROXATRAL) PO SCH (17:27)
[2016-08-11 18:00] VITALS: BP 149/77
[2016-08-11] MEDS: traZODone 50 MG (DESYREL) TAB PO SCH (20:25)
[2016-08-11] MEDS: lisINopril 20 MG (ZESTRIL) TAB PO SCH (20:25)
--- NOTE | 2016-08-11 20:55 | PM & R (SOAP) Progress Note ---
Subjective Subjective/Events-last exam Patient was seen in her room this AM Patient SBA for transfers Objective Exam Last Set of Vital Signs Vital Signs Date Time Temp Pulse Resp B/P Pulse Ox O2 Delivery O2 Flow Rate FiO2 08/11/16 18:00 96.3 80 20 149/77 94 Room Air Capillary Refill : I&O Intake and Output 08/11/16 00:00 Intake Total 1260 ml Output Total 1550 ml Balance -290 ml Intake Oral 1260 ml Output Urine Total 1550 ml # Voids 3 General: Alert, Oriented X3, Cooperative, No Acute Distress HEENT: Atraumatic, PERRLA, EOMI, Mucous Memb Moist/[place] Neck: Supple, No JVD Lungs: Clear to Auscultation Heart: Regular Rate Abdomen: Normal Bowel Sounds, Soft, No Tenderness Extremities: No Edema, Other (ice apk left shoulder) Skin: Other (incision healing) Neuro: Other (RT Leg weakness as residual of polio Has long leg brace) Assessment/Plan Assessment S/P Left shoulder arthroscopy DR Wilson activity as tolerated Postpolio syndrome wears long leg brace HTN controlled DJD shoulders S/P C spine surgery for radiculopathy rt arm [facility] 2000 Postop constipation treated and ongoing for maintenance Plan Continue PT/OT/Pain management F/U with DR Wilson and PCP PRN Team Conference held earlier today-See report for ful;l functional update and POC and ELOS Adjust bowel meds for constipation as needed CASEY CONNOR MD Aug 11, 2016 20:55
[2016-08-12] MEDS: TROSPIUM 20 MG (SANCTURA) TAB PO SCH ×2 (05:14→16:20)
[2016-08-12 05:30] VITALS: BP 146/88
--- NOTE | 2016-08-12 08:59 | Physical Therapy Daily Note ---
PT Daily Note-Current Subjective Patient in therapy gym pre tx, just got through with OT. OT has already performed some PROM on his left shoulder so I will save that for this afternoon. Patient rates pain at 5/10 in left shoulder. Appearance Patient in recliner post tx with nurse call, phone, tray, all needs met. Mental Status Patient Orientation: Normal For Age Transfers Functional [place] Measure 0=Not Assessed/NA 4=Minimal Assistance 1=Total Assistance 5=Supervision or Setup 2=Maximal Assistance 6=Modified [place] 3=Moderate Assistance 7=Complete IndependenceIRFPAI Quality Coding Scale 6 Independent with activity with or without an assistive device 5 Patient requires set up or clean up by helper. Patient completes activity by themselves 4 Supervision or touching assist (CGA). [place] provide cues , steadying assist 3 The helper provides less than half the effort to complete the activity 2 The helper provides more than half the effort to complete the activity 1 Dependent. The helper does all the effort to complete an activity 7 Patient refused to complete or attempt activity 9 The patient did not perform the activity before the current illness or injury 88 Not attempted due to Medical conditions or safety concerns Transfers (B, C, W/C) (FIM): 5 Sit to/from Stand: 5 Patient practiced simulated transfers like it was his bathroom and he was getting up from a toilet. He has a grab bar on the right at home and he could use his walker on the left side. He has a very hard time standing from a toilet height. Discussed with patient about getting a riser or other adaptive equipment so he can get up from the toilet. services engineer notified too because he is set to discharge soon. Gait Training Gait (FIM): 6 Distance: 150' Gait Assistive Device: Walker 4 Wheeled right KAFO Exercises NuStep Minutes: 20 NuStep Workload: 6 Treatments ambulation, transfer training, functional strengthening Assessment Current Status: Fair Progress slowly improving mobility PT Short Term Goals Short Term Goals Time Frame: Aug 13, 2016 Transfers (B,C,W/C) (FIM): 5 Gait (FIM): 5 Distance (FIM): 2=392-72 ft Gait Assistive Device: Walker 4 Wheeled PT Reading Recovery Teacher Goals Reading Recovery Teacher Goals PT Reading Recovery Teacher Goals Time Frame: Aug 20, 2016 Transfers (B,C,W/C) (FIM): 6 Sit to Lying (QC): 6 Lying-Sitting on Side/Bed(QC): 6 Sit to Stand (QC): 6 Rollin Roll Left to Right (QC): 6 Chair/Pfv-hx-Uhytu Xfer(QC): 6 Car Transfer (QC): 5 Does the Patient Walk: Yes Gait (FIM): 6 Gait distance (FIM): 3=150 ft Walk 10 feet (QC): 6 Walk 10ft-Uneven Surface(QC): 6 Walk 50ft with 2 Turns (QC): 6 Walk 150 ft (QC): 6 Gait Level of Assist: 6 Gait Assistive Device: Walker 4 Wheeled Does the Pt use WC or Scooter?: Yes Wheelchair (FIM): 6 Wheelchair distance (FIM): 3=150 ft Wheel 50 feet with 2 turns (QC: 6 Stairs (FIM): 2 # of Steps: 1 1 Step (curb) (QC): 4 4 Steps (QC): 0 (no goal; unsafe) 12 Steps (QC): 0 (no goal; unsafe) Picking up an Object (QC): 3 PT Plan Problem List Problem List: Activity Tolerance, Functional Strength, Safety, Balance, Gait, Transfer, Bed Mobility, ROM Treatment/Plan Treatment Plan: Continue Plan of Care Treatment Plan: Bed Mobility, Education, Functional Activity Jennifer, Functional Strength, Group Therapy, Gait, Safety, Therapeutic Exercise, Transfers Treatment Duration: Aug 20, 2016 Visits Per Week: 10*-15 Minutes/Day (M-F): 60-90 Minutes/Day (Sat/Rojas): prn Safety Risks/Education Patient Education: Gait Training, Transfer Techniques, Correct Positioning, Safety Issues Teaching Recipient: Patient Teaching Methods: Demonstration, Discussion Response to Teaching: Reinforcement Needed Time/GCodes Time In: 815 Time Out: 900 Total Billed Treatment Time: 45 Total Billed Treatment 1 visit GT 10 min EX 20 min FA 15 min RAVI PEREIRA PT Aug 12, 2016 08:59
[2016-08-12] MEDS: POLYETHYLENE GLYCOL 17 GM (MIRALAX) PACK PO SCH (09:12)
[2016-08-12] MEDS: VITAMIN D3 5,000 UNITS (CHOLECALCIFEROL ) CAPSULE PO SCH (09:12)
[2016-08-12] MEDS: GABAPENTIN 300 MG (NEURONTIN) CAP PO SCH ×3 (09:13→20:05)
[2016-08-12] MEDS: HYDROCHLOROTHIAZIDE 25 MG (HCTZ) TAB PO SCH (09:13)
[2016-08-12] MEDS: DOCUSATE SODIUM 100 MG (COLACE) CAP PO SCH ×2 (09:13→20:05)
[2016-08-12] MEDS: FAMOTIDINE 20 MG (PEPCID) TABLET PO SCH ×2 (09:13→20:05)
[2016-08-12] MEDS: OMEGA 3 (FISH OIL) 1000 MG CAP PO SCH (09:13)
--- NOTE | 2016-08-12 10:35 | PM & R (SOAP) Progress Note ---
Subjective Subjective/Events-last exam Patient was seen in his room this AM Therapy notes reviewed Patient SBA for transfers and Modified Independent for gait. Patient having regular BMS Objective Exam Last Set of Vital Signs Vital Signs Date Time Temp Pulse Resp B/P Pulse Ox O2 Delivery O2 Flow Rate FiO2 08/12/16 09:00 Room Air 08/12/16 05:30 98.9 79 20 146/88 92 Capillary Refill : I&O Intake and Output 08/12/16 00:00 Intake Total 1270 ml Output Total 300 ml Balance 970 ml Intake Oral 1270 ml Output Urine Total 300 ml # Voids 4 # Bowel Movements 3 General: Alert, Oriented X3, Cooperative, No Acute Distress HEENT: Atraumatic, PERRLA, EOMI, Mucous Memb Moist/[place] Neck: Supple, No JVD Lungs: Clear to Auscultation Heart: Regular Rate Abdomen: Normal Bowel Sounds, Soft, No Tenderness Extremities: No Edema, Other (ice apk left shoulder) Skin: Other (incision healing) Neuro: Other (RT Leg weakness as residual of polio Has long leg brace) Assessment/Plan Assessment S/P Left shoulder arthroscopy DR Wilson activity as tolerated Postpolio syndrome wears long leg brace HTN controlled DJD shoulders S/P C spine surgery for radiculopathy rt arm [facility] 2000 Postop constipation treated and ongoing for maintenance Plan Continue PT/OT/Pain management F/U with DR Wilson and PCP PRN Team Conference held yesterday-See report for ful;l functional update and POC and ELOS Adjust bowel meds for constipation as needed Discharge set tentatively for 08/14/16 back to [facility]. CASEY CONNOR MD Aug 12, 2016 10:35
--- NOTE | 2016-08-12 10:37 | Occupational Ther Daily Note ---
OT Current Status-Daily Note Subjective Pt in room, agrees to treatment. Pt reports 4/10 left shoulder pain. Mental Status/Objective Functional [place] Measure 0=Not Assessed/NA 4=Minimal Assistance 1=Total Assistance 5=Supervision or Setup 2=Maximal Assistance 6=Modified [place] 3=Moderate Assistance 7=Complete [place] ADL-Treatment Functional [place] Measure 0=Not Assessed/NA 4=Minimal Assistance 1=Total Assistance 5=Supervision or Setup 2=Maximal Assistance 6=Modified [place] 3=Moderate Assistance 7=Complete IndependenceIRFPAI Quality Coding Scale 6 Independent with activity with or without an assistive device 5 Patient requires set up or clean up by helper. Patient completes activity by themselves 4 Supervision or touching assist (CGA). [place] provide cues , steadying assist 3 The helper provides less than half the effort to complete the activity 2 The helper provides more than half the effort to complete the activity 1 Dependent. The helper does all the effort to complete an activity 7 Patient refused to complete or attempt activity 9 The patient did not perform the activity before the current illness or injury 88 Not attempted due to Medical conditions or safety concerns Other Treatment Pt sit to stand from seat on 4WW with SBA. Gait to therapy gym with 4WW, no LOB noted. Pt performed AAROM for shoulder flexion to tolerance using dowel camilo x5 reps with increased time and rest breaks between reps. Elbow flexion and wrist flexion and extension AROM exercises x15 reps with dowel camilo. Pt returned to room and transferred to chair with SBA. Pt sitting in chair with needs met after session. OT Short Term Goals Short Term Goals Time Frame: Aug 11, 2016 Lower Body Dressing(FIM): 4 Transfers (B,C,W/C) (FIM): 5 Additional Short Term Goals: 2-Verbalize Understanding, 3-ImproveStrength/Jennifer 1=Demonstrate adherence to instructed precautions during ADL tasks. 2=Patient will verbalize/demonstrate understanding of assistive devices/ modifications for ADL. 3=Patient will improve strength/tolerance for activity to enable patient to perform ADL's. OT Maintenance Of Way Clerk Goals Maintenance Of Way Clerk Goals Time Frame: Aug 18, 2016 Eating (FIM): 6 Eating (QC): 6 Groomin Oral Hygiene (QC): 6 Bathing(FIM): 6 Shower/Bathe Self (QC): 6 Upper Body Dressing(FIM): 6 Upper Body Dressing (QC): 6 Lower Body Dressing(FIM): 6 Lower Body Dressing (QC): 6 On/Off Footwear (QC): 6 Toileting(FIM): 6 Toileting Hygiene (QC): 6 Toilet/Commode Transfer(FIM): 6 Toilet/Commode Transfer (QC): 6 Shower Transfer(FIM): 6 Additional Goals: 2-Verbalize Understanding, 3-ImproveStrength/Jennifer 1=Demonstrate adherence to instructed precautions during ADL tasks. 2=Patient will verbalize/demonstrate understanding of assistive devices/ modifications for ADL. 3=Patient will improve strength/tolerance for activity to enable patient to perform ADL's. 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 Discharge Recommendations Plan/Recommendations: Continue POC Treatment Plan/Plan of Care Patient would benefit from OT for education, treatment and training to promote independence in ADL's, mobility, safety and/or upper extremity function for ADL' s. Plan of Care: ADL Retraining, Functional Mobility, Group Exercise/Act as Ind ( education, exercise, activity tolerance, functional activities, socialization), UE Funct Exercise/Act, UE Neuromus Re-Ed/Coord Treatment Duration: Aug 18, 2016 Visits Per Week: 10-11 Minutes/Day (M-F): 75-90 Minutes/Day (Sat/Rojas): PRN Agreement: Yes Rehab Potential: Good Time/GCodes Start Time: 09:55 Stop Time: 10:10 Total Time Billed (hr/min): 15 Billed Treatment Time 1 visit, EX(15minutes) WOLF GARCIA OT Aug 12, 2016 10:37
--- NOTE | 2016-08-12 11:20 | Occupational Ther Daily Note ---
OT Current Status-Daily Note Subjective Pt alert, sitting in chair. Pt had already gotten ready for the day. Agreed to therapy. C/O pain in L shldr, did not rate. Mental Status/Objective Patient Orientation: Person, Place, Time, Situation Functional [place] Measure 0=Not Assessed/NA 4=Minimal Assistance 1=Total Assistance 5=Supervision or Setup 2=Maximal Assistance 6=Modified [place] 3=Moderate Assistance 7=Complete [place] ADL-Treatment Functional [place] Measure 0=Not Assessed/NA 4=Minimal Assistance 1=Total Assistance 5=Supervision or Setup 2=Maximal Assistance 6=Modified [place] 3=Moderate Assistance 7=Complete IndependenceIRFPAI Quality Coding Scale 6 Independent with activity with or without an assistive device 5 Patient requires set up or clean up by helper. Patient completes activity by themselves 4 Supervision or touching assist (CGA). [place] provide cues , steadying assist 3 The helper provides less than half the effort to complete the activity 2 The helper provides more than half the effort to complete the activity 1 Dependent. The helper does all the effort to complete an activity 7 Patient refused to complete or attempt activity 9 The patient did not perform the activity before the current illness or injury 88 Not attempted due to Medical conditions or safety concerns Other Treatment Pt ambulated with 4WW to therapy gym from room. Pt transferred onto therapy mat without assistance. AAROM to L shldr to decrease pain/stiffness and increase AROM. Pt's pain is less when L shldr is abducted or flexed then pain increases as arm is brought back to body. Tightness in bicep, posterior deltoid and levator scapular muscles. HMP applied to pt's L shldr while pt completed arm bike with R UE 15 min at 20 youssef resistance to increase strength and activity tolerance for daily functional tasks. Resistive clothes pins completed with each hand 2x's. AROM with cones for L UE working on extending arm forward. Sandra's completed for active stretch of L shldr 10x holding 3-5 seconds each. Pt left in care of PT in therapy gym. All needs met. OT Short Term Goals Short Term Goals Time Frame: Aug 11, 2016 Lower Body Dressing(FIM): 4 Transfers (B,C,W/C) (FIM): 5 Additional Short Term Goals: 2-Verbalize Understanding, 3-ImproveStrength/Jennifer 1=Demonstrate adherence to instructed precautions during ADL tasks. 2=Patient will verbalize/demonstrate understanding of assistive devices/ modifications for ADL. 3=Patient will improve strength/tolerance for activity to enable patient to perform ADL's. OT Spoilage Worker Goals Spoilage Worker Goals Time Frame: Aug 18, 2016 Eating (FIM): 6 Eating (QC): 6 Groomin Oral Hygiene (QC): 6 Bathing(FIM): 6 Shower/Bathe Self (QC): 6 Upper Body Dressing(FIM): 6 Upper Body Dressing (QC): 6 Lower Body Dressing(FIM): 6 Lower Body Dressing (QC): 6 On/Off Footwear (QC): 6 Toileting(FIM): 6 Toileting Hygiene (QC): 6 Toilet/Commode Transfer(FIM): 6 Toilet/Commode Transfer (QC): 6 Shower Transfer(FIM): 6 Additional Goals: 2-Verbalize Understanding, 3-ImproveStrength/Jennifer 1=Demonstrate adherence to instructed precautions during ADL tasks. 2=Patient will verbalize/demonstrate understanding of assistive devices/ modifications for ADL. 3=Patient will improve strength/tolerance for activity to enable patient to perform ADL's. 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 Discharge Recommendations Plan/Recommendations: Continue POC Treatment Plan/Plan of Care Patient would benefit from OT for education, treatment and training to promote independence in ADL's, mobility, safety and/or upper extremity function for ADL' s. Plan of Care: ADL Retraining, Functional Mobility, Group Exercise/Act as Ind ( education, exercise, activity tolerance, functional activities, socialization), UE Funct Exercise/Act, UE Neuromus Re-Ed/Coord Treatment Duration: Aug 18, 2016 Visits Per Week: 10-11 Minutes/Day (M-F): 75-90 Minutes/Day (Sat/Rojas): PRN Agreement: Yes Rehab Potential: Good Time/GCodes Start Time: 07:00 Stop Time: 08:15 Total Time Billed (hr/min): 75 Billed Treatment Time 1 visit-FA 2 (30 min) EX 3 (45 min) ZAIDA FULLER Aug 12, 2016 11:20
--- NOTE | 2016-08-12 13:42 | Physical Therapy Daily Note ---
PT Daily Note-Current Subjective Patient ambulating to the therapy gym on his own pre tx, has pain of 3/10 in left shoulder. He states his bed is about 26" high and he would like to test that on the therapy mat in the gym for sit to stand. Appearance Patient in bathroom post tx. Mental Status Patient Orientation: Normal For Age Transfers Functional [place] Measure 0=Not Assessed/NA 4=Minimal Assistance 1=Total Assistance 5=Supervision or Setup 2=Maximal Assistance 6=Modified [place] 3=Moderate Assistance 7=Complete IndependenceIRFPAI Quality Coding Scale 6 Independent with activity with or without an assistive device 5 Patient requires set up or clean up by helper. Patient completes activity by themselves 4 Supervision or touching assist (CGA). [place] provide cues , steadying assist 3 The helper provides less than half the effort to complete the activity 2 The helper provides more than half the effort to complete the activity 1 Dependent. The helper does all the effort to complete an activity 7 Patient refused to complete or attempt activity 9 The patient did not perform the activity before the current illness or injury 88 Not attempted due to Medical conditions or safety concerns Transfers (B, C, W/C) (FIM): 4 Scootin Rollin Supine to/from Sit: 6 Sit to/from Stand: 4 Patient needs min assist to stand from low surfaces. He could stand from a 26" high surface without assist. Gait Training Gait (FIM): 6 Distance: 200', 150' Gait Assistive Device: Walker 4 Wheeled right KAFO Exercises PROM to left shoulder (flexion, abduction,IR, ER), AROM elbow flexion and extension, wrist sup/pro, shoulder flex/abd x 20 Treatments bed mobility and transfers, ambulation, passive and active ROM to left shoulder Assessment Current Status: Fair Progress Patient is having less pain in left shoulder when pushing up to stand PT Short Term Goals Short Term Goals Time Frame: Aug 13, 2016 Transfers (B,C,W/C) (FIM): 5 Gait (FIM): 5 Distance (FIM): 5=972-34 ft Gait Assistive Device: Walker 4 Wheeled PT Residential Goals Parts Person Goals PT Residential Goals Time Frame: Aug 20, 2016 Transfers (B,C,W/C) (FIM): 6 Sit to Lying (QC): 6 Lying-Sitting on Side/Bed(QC): 6 Sit to Stand (QC): 6 Rollin Roll Left to Right (QC): 6 Chair/Sft-rk-Dkzps Xfer(QC): 6 Car Transfer (QC): 5 Does the Patient Walk: Yes Gait (FIM): 6 Gait distance (FIM): 3=150 ft Walk 10 feet (QC): 6 Walk 10ft-Uneven Surface(QC): 6 Walk 50ft with 2 Turns (QC): 6 Walk 150 ft (QC): 6 Gait Level of Assist: 6 Gait Assistive Device: Walker 4 Wheeled Does the Pt use WC or Scooter?: Yes Wheelchair (FIM): 6 Wheelchair distance (FIM): 3=150 ft Wheel 50 feet with 2 turns (QC: 6 Stairs (FIM): 2 # of Steps: 1 1 Step (curb) (QC): 4 4 Steps (QC): 0 (no goal; unsafe) 12 Steps (QC): 0 (no goal; unsafe) Picking up an Object (QC): 3 PT Plan Problem List Problem List: Activity Tolerance, Functional Strength, Safety, Balance, Gait, Transfer, ROM Treatment/Plan Treatment Plan: Continue Plan of Care Treatment Plan: Bed Mobility, Education, Functional Activity Jennifer, Functional Strength, Group Therapy, Gait, Safety, Therapeutic Exercise, Transfers Treatment Duration: Aug 20, 2016 Visits Per Week: 10*-15 Minutes/Day (M-F): 60-90 Minutes/Day (Sat/Rojas): prn Safety Risks/Education Patient Education: Gait Training, Transfer Techniques, Correct Positioning, Disease Process, Safety Issues Teaching Recipient: Patient Teaching Methods: Demonstration, Discussion Response to Teaching: Reinforcement Needed Time/GCodes Time In: 1300 Time Out: 1345 Total Billed Treatment Time: 45 Total Billed Treatment 1 visit GT 15 min EX 30 min RAVI PEREIRA PT Aug 12, 2016 13:42
[2016-08-12 18:14] VITALS: BP 132/76
[2016-08-12] MEDS: ALFUZOSIN HCL 10 MG TAB (UROXATRAL) PO SCH (18:35)
[2016-08-12] MEDS: lisINopril 20 MG (ZESTRIL) TAB PO SCH (20:05)
[2016-08-12] MEDS: traZODone 50 MG (DESYREL) TAB PO SCH (20:05)
[2016-08-13] MEDS: TROSPIUM 20 MG (SANCTURA) TAB PO SCH ×2 (05:42→17:11)
[2016-08-13 05:51] VITALS: BP 132/65
--- NOTE | 2016-08-13 07:43 | PM & R (SOAP) Progress Note ---
Subjective Subjective/Events-last exam Patient was seen in his room this AM [place] for discharge back to [facility] tomorrow Had BM and wants Miralax d/cd Objective Exam Last Set of Vital Signs Vital Signs Date Time Temp Pulse Resp B/P Pulse Ox O2 Delivery O2 Flow Rate FiO2 08/13/16 05:51 98.9 70 20 132/65 92 Room Air Capillary Refill : I&O Intake and Output 08/13/16 00:00 Intake Total 1000 ml Balance 1000 ml Intake Oral 1000 ml # Voids 7 # Bowel Movements 1 General: Alert, Oriented X3, Cooperative, No Acute Distress HEENT: Atraumatic, PERRLA, EOMI, Mucous Memb Moist/[place] Neck: Supple, No JVD Lungs: Clear to Auscultation Heart: Regular Rate Abdomen: Normal Bowel Sounds, Soft, No Tenderness Extremities: No Edema, Other (ice apk left shoulder) Skin: Other (incision healing) Neuro: Other (RT Leg weakness as residual of polio Has long leg brace) Assessment/Plan Assessment S/P Left shoulder arthroscopy DR Wilson activity as tolerated Postpolio syndrome wears long leg brace HTN controlled DJD shoulders S/P C spine surgery for radiculopathy rt arm [facility] 2000 Postop constipation treated and ongoing for maintenance Plan Continue PT/OT/Pain management F/U with DR Wilson and PCP PRN Team Conference held 08/11/16-See report for ful;l functional update and POC and ELOS Adjust bowel meds for constipation as needed Discharge remains set for tomorrow 08/14/16 back to [facility]. F/U with DR Wilson and Ethan See orders. CASEY CONNOR MD Aug 13, 2016 07:43
[2016-08-13] MEDS ORDERED: ACET-77 PO (07:46)
[2016-08-13] MEDS: VITAMIN D3 5,000 UNITS (CHOLECALCIFEROL ) CAPSULE PO SCH (07:52)
[2016-08-13] MEDS: FAMOTIDINE 20 MG (PEPCID) TABLET PO SCH ×2 (07:52→21:01)
[2016-08-13] MEDS: OMEGA 3 (FISH OIL) 1000 MG CAP PO SCH (07:52)
[2016-08-13] MEDS: DOCUSATE SODIUM 100 MG (COLACE) CAP PO SCH ×3 (07:52→21:01)
[2016-08-13] MEDS: HYDROCHLOROTHIAZIDE 25 MG (HCTZ) TAB PO SCH (07:52)
[2016-08-13] MEDS: GABAPENTIN 300 MG (NEURONTIN) CAP PO SCH ×3 (07:52→21:01)
[2016-08-13] MEDS: POLYETHYLENE GLYCOL 17 GM (MIRALAX) PACK PO SCH (07:52)
--- NOTE | 2016-08-13 08:01 | Occupational Ther Daily Note ---
OT Current Status-Daily Note Subjective Pt alert, sitting in recliner. Pt agreed to therapy. No c/o pain. Mental Status/Objective Patient Orientation: Person, Place, Time, Situation Functional [place] Measure 0=Not Assessed/NA 4=Minimal Assistance 1=Total Assistance 5=Supervision or Setup 2=Maximal Assistance 6=Modified [place] 3=Moderate Assistance 7=Complete [place] ADL-Treatment Functional [place] Measure 0=Not Assessed/NA 4=Minimal Assistance 1=Total Assistance 5=Supervision or Setup 2=Maximal Assistance 6=Modified [place] 3=Moderate Assistance 7=Complete IndependenceIRFPAI Quality Coding Scale 6 Independent with activity with or without an assistive device 5 Patient requires set up or clean up by helper. Patient completes activity by themselves 4 Supervision or touching assist (CGA). [place] provide cues , steadying assist 3 The helper provides less than half the effort to complete the activity 2 The helper provides more than half the effort to complete the activity 1 Dependent. The helper does all the effort to complete an activity 7 Patient refused to complete or attempt activity 9 The patient did not perform the activity before the current illness or injury 88 Not attempted due to Medical conditions or safety concerns Eating (FIM): 6 (Dentures. Pt able to set own self up and use regular utensils to feed self.) Eating (QC): 6 (Dent[place]. Pt able to set own self up and use regular utensils to feed self.) Grooming (FIM): 6 (Using 4WW and standing at sink, pt is able to complete on own.) Oral Hygiene (QC): 6 (Using 4WW and standing at sink, pt is able to complete on own.) Bathing (FIM): 6 (Using shower bench, hand held shower and grabbars pt is able to complete own bathing.) Shower/Bathe Self (QC): 6 (Using shower bench, hand held shower and grabbars pt is able to complete own bathing.) Upper Body (FIM): 6 (Pt retrieved own clothes and is able to don/doff upper body clothing by self.) Upper Body Dressing (QC): 6 (Pt retrieved own clothes and is able to don/doff upper body clothing by self.) Lower Body Dressing (FIM): 6 (Safety concerns. Pt is able to don/doff lower body clothing by self. After shower pt has to lean onto shower wall to stabilize self to hike underwear over hips.) Lower Body Dressing (QC): 6 (Safety concerns. Pt is able to don/doff lower body clothing by self. After shower pt has to lean onto shower wall to stabilize self to hike underwear over hips.) On/Off Footwear (QC): 6 (Pt able to don/doff footwear by self. Is able to use sock aide to don L sock though has been able to complete without.) Toileting (FIM): 6 (Using BSC and grabbars, pt is able to complete own toileting.) Toileting Hygiene (QC): 6 (Using BSC and grabbars, pt is able to complete own toileting.) Transfers (B, C, W/C) (FIM): 6 (Pt does have pain with transfers when pushing up from surface. Pt is able to complete using 4WW or forearm crutches.) Toilet/Commode Transfer (FIM): 6 (Using FWW and grabbars, pt is able to complete by self.) Toilet Transfer (QC): 6 (Using BSC and grabbars, pt is able to complete own transfer.) Shower Transfer(FIM): 6 (Safety concerns. Using forearm crutches or 4WW, grabbars and shower bench pt is able to complete.) OT Short Term Goals Short Term Goals Time Frame: Aug 11, 2016 Lower Body Dressing(FIM): 4 Transfers (B,C,W/C) (FIM): 5 Additional Short Term Goals: 2-Verbalize Understanding, 3-ImproveStrength/Jennifer 1=Demonstrate adherence to instructed precautions during ADL tasks. 2=Patient will verbalize/demonstrate understanding of assistive devices/ modifications for ADL. 3=Patient will improve strength/tolerance for activity to enable patient to perform ADL's. OT Intermediate Goals [place] Goals Time Frame: Aug 18, 2016 Eating (FIM): 6 (met-08/13/16) Eating (QC): 6 (met-08/13/16) Groomin (met-08/13/16) Oral Hygiene (QC): 6 (met-08/13/16) Bathing(FIM): 6 (met-08/13/16) Shower/Bathe Self (QC): 6 (met-08/13/16) Upper Body Dressing(FIM): 6 (met-08/13/16) Upper Body Dressing (QC): 6 (met-08/13/16) Lower Body Dressing(FIM): 6 (met-08/13/16) Lower Body Dressing (QC): 6 (met-08/13/16) On/Off Footwear (QC): 6 (met-08/13/16) Toileting(FIM): 6 (met-08/13/16) Toileting Hygiene (QC): 6 (met-08/13/16) Toilet/Commode Transfer(FIM): 6 (met-08/13/16) Toilet/Commode Transfer (QC): 6 (met-08/13/16) Shower Transfer(FIM): 6 (met-08/13/16) Additional Goals: 2-Verbalize Understanding, 3-ImproveStrength/Jennifer 1=Demonstrate adherence to instructed precautions during ADL tasks. 2=Patient will verbalize/demonstrate understanding of assistive devices/ modifications for ADL. 3=Patient will improve strength/tolerance for activity to enable patient to perform ADL's. 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 Discharge Recommendations Plan/Recommendations: Continue POC Treatment Plan/Plan of Care Patient would benefit from OT for education, treatment and training to promote independence in ADL's, mobility, safety and/or upper extremity function for ADL' s. Plan of Care: ADL Retraining, Functional Mobility, Group Exercise/Act as Ind ( education, exercise, activity tolerance, functional activities, socialization), UE Funct Exercise/Act, UE Neuromus Re-Ed/Coord Treatment Duration: Aug 18, 2016 Visits Per Week: 10-11 Minutes/Day (M-F): 75-90 Minutes/Day (Sat/Rojas): PRN Agreement: Yes Rehab Potential: Good Time/GCodes Start Time: 07:00 Stop Time: 08:00 Total Time Billed (hr/min): 60 Billed Treatment Time 1 visit-ADL 3 (40 min) EX 1 (20 min) ZAIDA FULLER Aug 13, 2016 08:00
--- NOTE | 2016-08-13 14:36 | Physical Therapy Daily Note ---
PT Daily Note-Current Subjective Pt ambulated to [facility] independently using 4WW. Pt is eager to discharge tomorrow. Pt agrees to PT. Pain Numeric Pain Scale: 5-Moderate Pain Location: Left Location Body Site: Shoulder Pain Description: Tightness Mental Status Patient Orientation: Person, Place, Time, Situation Attachments: Other-See Comments Brace for RLE Transfers Functional Madison Measure 0=Not Assessed/NA 4=Minimal Assistance 1=Total Assistance 5=Supervision or Setup 2=Maximal Assistance 6=Modified [place] 3=Moderate Assistance 7=Complete IndependenceIRFPAI Quality Coding Scale 6 Independent with activity with or without an assistive device 5 Patient requires set up or clean up by helper. Patient completes activity by themselves 4 Supervision or touching assist (CGA). Garland provide cues , steadying assist 3 The helper provides less than half the effort to complete the activity 2 The helper provides more than half the effort to complete the activity 1 Dependent. The helper does all the effort to complete an activity 7 Patient refused to complete or attempt activity 9 The patient did not perform the activity before the current illness or injury 88 Not attempted due to Medical conditions or safety concerns Transfers (B, C, W/C) (FIM): 6 Scootin Rollin Roll Left to Right (QC): 6 Supine to/from Sit: 6 Sit to/from Stand: 6 Sit to Lying (QC): 6 Sit to Stand (QC): 6 Chair/Rcv-qy-Qcwqp Xfer(QC): 6 Bed to/from Chair: 6 Car Transfer (QC): 6 Simulated car transfer Weight Bearing Weight Bearing Restriction: Full Weight Bearing Location Restriction: LE Bilateral Gait Training Does the Patient Walk?: Yes Gait (FIM): 6 Distance (FIM): 3=150 ft Distance: 200' Walk 10 feet (QC): 6 Walk 50 ft with 2 Turns(QC): 6 Walk 150 ft (QC): 6 Walking 10ft/uneven surface-QC: 6 Gait Level of Assist: 6 Gait Persons Needed: 1 Gait Assistive Device: Walker 4 Wheeled Pt walks with as normalized gait as possible with 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 Pt's LLE fatigues but pt know signs of fatigue and will rest when needed. Wheelchair Training Does the Pt Use a Wheelchair?: No Stair Training Stairs (FIM): 0 #of Steps: 0 1 Step (curb) (QC): 9 4 Steps (QC): 9 12 Steps (QC): 9 Level of Assist: 0 Pt didn't attempt due to weakness and safety concerns. Pt reports has not used stairs in sometime even previous to hospital stay. Balance Picking up an Object (QC): 6 Exercises NuStep Minutes: 10 NuStep Workload: 6 Treatments Pt transfers at [facility] using 4WW. Pt ambulates throughout [facility] using 4WW at [facility]. Pt uses NuStep to help with activity tolerance. Pt performs bed mobility at [facility] as well as ambulates over uneven surface and picks up object from floor safely. Pt returns to recliner in room to rest with all needs met at end of tx. Assessment Current Status: Good Progress Pt has continued to have strength deficits although pt had some due to post polio. Pt has been able to overcome this by modifying how he needs to perform tasks. PT Short Term Goals Short Term Goals Time Frame: Aug 13, 2016 Transfers (B,C,W/C) (FIM): 5 Gait (FIM): 5 Distance (FIM): 8=835-79 ft Gait Assistive Device: Walker 4 Wheeled PT Fci Goals General Matcher Goals PT General Matcher Goals Time Frame: Aug 20, 2016 Transfers (B,C,W/C) (FIM): 6 Sit to Lying (QC): 6 Lying-Sitting on Side/Bed(QC): 6 Sit to Stand (QC): 6 Rollin Roll Left to Right (QC): 6 Chair/Dxo-sc-Zvnmi Xfer(QC): 6 Car Transfer (QC): 5 Does the Patient Walk: Yes Gait (FIM): 6 Gait distance (FIM): 3=150 ft Walk 10 feet (QC): 6 Walk 10ft-Uneven Surface(QC): 6 Walk 50ft with 2 Turns (QC): 6 Walk 150 ft (QC): 6 Gait Level of Assist: 6 Gait Assistive Device: Walker 4 Wheeled Does the Pt use WC or Scooter?: Yes Wheelchair (FIM): 6 Wheelchair distance (FIM): 3=150 ft Wheel 50 feet with 2 turns (QC: 6 Stairs (FIM): 2 # of Steps: 1 1 Step (curb) (QC): 4 4 Steps (QC): 0 (no goal; unsafe) 12 Steps (QC): 0 (no goal; unsafe) Picking up an Object (QC): 3 PT Plan Problem List Problem List: Activity Tolerance, Functional Strength Treatment/Plan Treatment Plan: Continue Plan of Care Treatment Plan: Bed Mobility, Education, Functional Activity Jennifer, Functional Strength, Group Therapy, Gait, Safety, Therapeutic Exercise, Transfers Treatment Duration: Aug 20, 2016 Visits Per Week: 10*-15 Minutes/Day (M-F): 60-90 Minutes/Day (Sat/Rojas): prn Safety Risks/Education Patient Education: Gait Training, Correct Positioning, Safety Issues Teaching Recipient: Patient Teaching Methods: Discussion Response to Teaching: Verbalize Understanding Time/GCodes Time In: 1115 Time Out: 1215 Total Billed Treatment Time: 60 Total Billed Treatment visit, GT X2 (30m), EX (15m) & FA (15m) NOAH KAUR CLINICAL ACCOUNT LIAISON Aug 13, 2016 14:36
[2016-08-13] MEDS: ACETAMINOPHEN 500 MG TAB (TYLENOL) PO PRN (14:38)
--- NOTE | 2016-08-13 14:50 | Therapy Group Daily Note ---
Therapy Daily Group Note Patient Education Topic Other List Below (ARU description and expectations) Exercises LE Seated Exercise, UE Exercise Other/Notes Pt ambulated using 4WW to OT/PT group. Group consisted of introductions (name, place living, favorite childhood memory), socialization, UE/LE seated exercises , memory recall activities. Pt did contribute to activities and discussion appropriately. After therapy, pt ambulated back to room by self, call light/ phone in reach. All needs met in room. Start Time: 13:00 Stop Time: 14:00 Total Billed Treatment Time: 60 Total Billed Treatment 1-GRP ZAIDA FULLER Aug 13, 2016 14:50
[2016-08-13] MEDS: ALFUZOSIN HCL 10 MG TAB (UROXATRAL) PO SCH (17:11)
[2016-08-13 18:06] VITALS: BP 127/76
[2016-08-13] MEDS: traZODone 50 MG (DESYREL) TAB PO SCH (21:01)
[2016-08-13] MEDS: lisINopril 20 MG (ZESTRIL) TAB PO SCH (21:01)
[2016-08-14] MEDS: TROSPIUM 20 MG (SANCTURA) TAB PO SCH (06:18)
[2016-08-14 06:22] VITALS: BP 157/86
[2016-08-14] MEDS: VITAMIN D3 5,000 UNITS (CHOLECALCIFEROL ) CAPSULE PO SCH (08:33)
[2016-08-14] MEDS: FAMOTIDINE 20 MG (PEPCID) TABLET PO SCH (08:33)
[2016-08-14] MEDS: GABAPENTIN 300 MG (NEURONTIN) CAP PO SCH (08:33)
[2016-08-14] MEDS: OMEGA 3 (FISH OIL) 1000 MG CAP PO SCH (08:34)
[2016-08-14] MEDS: HYDROCHLOROTHIAZIDE 25 MG (HCTZ) TAB PO SCH (08:34)
[2016-08-14] MEDS: DOCUSATE SODIUM 100 MG (COLACE) CAP PO SCH (08:35)
[2016-08-14] MEDS: POLYETHYLENE GLYCOL 17 GM (MIRALAX) PACK PO SCH (09:00)
[2016-08-14 11:00] VITALS: BP 136/78
--- NOTE | 2016-08-16 10:26 | Therapy Team Discharge Summary ---
Therapy Discharge Summary Discharge Recommendations Date of Discharge Aug 14, 2016 at 15:09 Therapy D/C Recommendations: Assisted Living Occupational Therapy Pt seen for skilled OT to increase his independence in basic self care to allow him to return home safely after scope L shoulder. 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 On admission pt was mod I with eating, setup for grooming and upper dressing. assist of 2 for toileting. lower body dressing and toileting. By discharge he was modified independent with all ADLs, including doffing and doffing LE brace. Equipment used included tall toilet, sock aid, shower bench, grab bars, hand held shower. Recommend sock aid. May benefit from Home Health OT PT Custodial Goals Sustainable Systems Analyst Goals PT Sustainable Systems Analyst Goals Time Frame: Aug 20, 2016 Transfers (B,C,W/C) (FIM): 6 Roll Left to Right (QC): 6 Sit to Lying (QC): 6 Lying-Sitting on Side/Bed(QC): 6 Sit to Stand (QC): 6 Chair/Aot-jn-Xmmpw Xfer(QC): 6 Car Transfer (QC): 5 Does the Patient Walk: Yes Gait (FIM): 6 Gait distance (FIM): 3=150 ft Walk 10 feet (QC): 6 Walk 10ft-Uneven Surface(QC): 6 Walk 50ft with 2 Turns (QC): 6 Walk 150 ft (QC): 6 Gait Level of Assist: 6 Gait Assistive Device: Walker 4 Wheeled Does the Pt use WC or Scooter?: Yes Wheelchair (FIM): 6 Wheelchair distance (FIM): 3=150 ft Wheel 50 feet with 2 turns (QC: 6 Stairs (FIM): 2 # of Steps: 1 1 Step (curb) (QC): 4 4 Steps (QC): 0 (no goal; unsafe) 12 Steps (QC): 0 (no goal; unsafe) Picking up an Object (QC): 3 OT Sustainable Systems Analyst Goals Custodial Goals Time Frame: Aug 18, 2016 Eating (FIM): 6 (met-08/13/16) Eating (QC): 6 (met-08/13/16) Oral Hygiene (QC): 6 (met-08/13/16) Grooming(FIM): 6 (met-08/13/16) Bathing(FIM): 6 (met-08/13/16) Shower/Bathe Self (QC): 6 (met-08/13/16) Upper Body Dressing(FIM): 6 (met-08/13/16) Upper Body Dressing (QC): 6 (met-08/13/16) Lower Body Dressing(FIM): 6 (met-08/13/16) Lower Body Dressing (QC): 6 (met-08/13/16) On/Off Footwear (QC): 6 (met-08/13/16) Toileting(FIM): 6 (met-08/13/16) Toileting Hygiene (QC): 6 (met-08/13/16) Toilet/Commode Transfer(FIM): 6 (met-08/13/16) Toilet/Commode Transfer (QC): 6 (met-08/13/16) Shower Transfer(FIM): 6 (-08/13/16) Additional Goals: 2-Verbalize Understanding, 3-ImproveStrength/Jennifer 1=Demonstrate adherence to instructed precautions during ADL tasks. 2=Patient will verbalize/demonstrate understanding of assistive devices/ modifications for ADL. 3=Patient will improve strength/tolerance for activity to enable patient to perform ADL's. DARIUSZ LYN OT Aug 16, 2016 10:26
--- NOTE | 2016-08-18 11:32 | Therapy Team Discharge Summary ---
Therapy Discharge Summary Discharge Recommendations Date of Discharge Aug 14, 2016 at 15:09 Therapy D/C Recommendations: Assisted Living Physical Therapy Patient came to rehab with post polio syndrome and a left shoulder scope. Upon admission patient performed bed mobility with min to mod assist, transfers with mod assist, ambulated 50' with a 4 wheeled walker with CGA, no stairs at that time. Patient has been performing bed mobility and transfer training, balance and endurance training, functional strengthening, ROM/stretching exercises, gait training, and education. Patient has made good progress and has met all of his terminal carman goals except for stairs (he does not have any stairs at home and is not safe to perform them due to his post polio). Now, patient performs bed mobility and transfers with mod I, ambulates 200' with a 4 wheeled walker with mod I, he has not been using a wheelchair here but has a power chair at home. Patient has been discharged from this facility and will be discharged from PT at this time. PT Safe Deposit Attendant Goals Safe Deposit Attendant Goals PT Group Home Goals Time Frame: Aug 20, 2016 Transfers (B,C,W/C) (FIM): 6 Roll Left to Right (QC): 6 Sit to Lying (QC): 6 Lying-Sitting on Side/Bed(QC): 6 Sit to Stand (QC): 6 Chair/Cqp-bl-Rrmfl Xfer(QC): 6 Car Transfer (QC): 5 Does the Patient Walk: Yes Gait (FIM): 6 Gait distance (FIM): 3=150 ft Walk 10 feet (QC): 6 Walk 10ft-Uneven Surface(QC): 6 Walk 50ft with 2 Turns (QC): 6 Walk 150 ft (QC): 6 Gait Level of Assist: 6 Gait Assistive Device: Walker 4 Wheeled Does the Pt use WC or Scooter?: Yes Wheelchair (FIM): 6 Wheelchair distance (FIM): 3=150 ft Wheel 50 feet with 2 turns (QC: 6 Stairs (FIM): 2 # of Steps: 1 1 Step (curb) (QC): 4 4 Steps (QC): 0 (no goal; unsafe) 12 Steps (QC): 0 (no goal; unsafe) Picking up an Object (QC): 3 OT Safe Deposit Attendant Goals Safe Deposit Attendant Goals Time Frame: Aug 18, 2016 Eating (FIM): 6 (met-08/13/16) Eating (QC): 6 (met-08/13/16) Oral Hygiene (QC): 6 (-08/13/16) Grooming(FIM): 6 (-08/13/16) Bathing(FIM): 6 (-08/13/16) Shower/Bathe Self (QC): 6 (met-08/13/16) Upper Body Dressing(FIM): 6 (08/13/16) Upper Body Dressing (QC): 6 (08/13/16) Lower Body Dressing(FIM): 6 (met-08/13/16) Lower Body Dressing (QC): 6 (08/13/16) On/Off Footwear (QC): 6 (08/13/16) Toileting(FIM): 6 (-08/13/16) Toileting Hygiene (QC): 6 (-08/13/16) Toilet/Commode Transfer(FIM): 6 (08/13/16) Toilet/Commode Transfer (QC): 6 (met-08/13/16) Shower Transfer(FIM): 6 (-08/13/16) Additional Goals: 2-Verbalize Understanding, 3-ImproveStrength/Jennifer 1=Demonstrate adherence to instructed precautions during ADL tasks. 2=Patient will verbalize/demonstrate understanding of assistive devices/ modifications for ADL. 3=Patient will improve strength/tolerance for activity to enable patient to perform ADL's. RAVI PEREIRA PT Aug 18, 2016 11:32
[2016-08-23] MEDS ORDERED: CYANOCOBALAMIN INJ 1000 MCG/ML IM SCH (09:00)
--- NOTE | 2016-08-25 09:14 | DISCHARGE SUMMARY ---
DATE OF ADMISSION: 08/04/2016 DATE OF DISCHARGE: 08/14/2016 HISTORY OF PRESENT ILLNESS: The patient is a 71-year-old retired male who lives at a local assisted living facility who had single day surgery, Dr. Wilson on 08/04/2016 due to progressively worsening left shoulder pain. The patient had arthroscopy and distal clavicle excision procedure. The patient had been modified independent for ambulation with a long leg brace on the right due to postpolio syndrome. He has arthritis in both shoulders with limited active range of motion. 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 He was able to do most of his ADLs prior to this, however. He was assessed by therapy felt to be appropriate for inpatient rehabilitation and referred to this unit. He has increased pain with movement of both shoulders, left more than right. He has an island dressing over the left shoulder. PAST MEDICAL HISTORY: 1. Postpolio syndrome affecting the right leg. 2. Arthritis both shoulders. 3. Hypertension. 4. C-spine surgery for radiculopathy right arm [facility] 2000 with mild residual tingling right hand. SOCIAL HISTORY: , lives at [facility]. He is retired. PCP, Dr. Long. MEDICAL COURSE: The patient was followed by Dr. Manzanares and Dr. Wilson while on rehab unit. His incision site healed well. He had decreased pain, improved active range of motion of the left shoulder. He mobilized well. He was afebrile during his stay. Blood pressure on 08/14 was 136/78, respirations 20, pulse 76. The O2 sat 98% on room air. REHABILITATION COURSE: He progressed well with his therapies. He had increased strength and endurance, decreased pain, improved range of motion of the left shoulder. OT notes upon admission, he was modified independent with eating. Set up for grooming, and upper body dressing, assistance to for toileting, and lower body dressing and toileting. By discharge he was modified independent with all ADLs including donning and doffing lower extremity brace. Equipment used included a tall toilet, sock aide, shower bench, grab bars, hand-held shower, sock aide was recommended. PT notes upon admission, the patient performed bed mobility with min to mod assist and transfers with mod assist, could ambulate 50 feet with a 4 wheeled walker with contact guard. No stairs were done. Upon discharge, the patient is modified independent for bed mobility, and transfers, could ambulate 20 feet with a 4 wheeled walker with modified independence. He has a power chair at home. DISCHARGE INSTRUCTIONS: He is discharged back to the assisted living facility. He will have follow-up with Dr. Wilson and Dr. Long as per their schedules. Continue current diet. DISCHARGE MEDICATIONS: 1. Tylenol 1000 mg p.o. q.6 hours p.r.n. mild pain. 2. Vitamin D3 5000 units p.o. daily. 3. Vitamin B12 1000 mcg IM daily. 4. Pepcid 20 mg p.o. b.i.d. 5. Gabapentin 300 mg p.o. t.i.d. 6. Hydrochlorothiazide 25 mg p.o. daily. 7. Lisinopril 20 mg p.o. at bedtime. 8. Metoprolol 25 mg p.o. daily. 9. Fish oil 3000 mg p.o. daily. 10. VESIcare 10 mg p.o. at bedtime. 11. Flomax 0.4 mg p.o. daily. 12. Trazodone 50 mg p.o. at bedtime. DISCHARGE DIAGNOSES: 1. Rehabilitation ambulatory dysfunction secondary osteoarthritis left shoulder, status post arthroscopy complicated by postpolio syndrome. 2. Osteoarthritis right shoulder. 3. Post polio syndrome. 4. Right foot drop wears long leg brace. 5. Numbness right hand. 6. Has a residual cervical spine radiculopathy. 7. Hypertension. 8. GERD. 9. Hyperlipidemia. 10. Vitamin D deficiency, on replacement. 11. Constipation, treated. 12. Status post C-spine surgery for radiculopathy right arm [facility] 2000. CONDITION AT DISCHARGE: Improved and stable. PROGNOSIS: Rehab prognosis appears good for continued improvement at home at assisted living facility return to independent living with some assistance from assisted living facility staff as needed. Job ID: [id number] Dictated Date: 08/24/2016 14:42:18 Leak Hunter Date: 08/25/2016 09:03:29/jose angel
== END 2016-08-14 15:09 | DRG 554 ==
PROVIDERS: ADMIT Physical Medicine & Rehabilitation; ATTEND Physical Medicine & Rehabilitation
DX: M19.012 Primary osteoarthritis, left shoulder (principal); M19.011 Primary osteoarthritis, right shoulder; G14 Postpolio syndrome; M21.371 Foot drop, right foot; R20.0 Anesthesia of skin; I10 Essential (primary) hypertension; K21.9 Gastro-esophageal reflux disease without esophagitis; E78.5 Hyperlipidemia, unspecified; E55.9 Vitamin D deficiency, unspecified; K59.00 Constipation, unspecified

== ENCOUNTER → 2016-08-04 | Day surgery (SDC) | payer MEDICARE, MEDICAID ==
--- NOTE | 2016-07-30 07:30 | HISTORY AND PHYSICAL ---
DATE OF ADMISSION: 08/04/2016 This will be for outpatient surgery for left shoulder. HISTORY: The patient is a 71-year-old retired male who is [id number], with a several month history of progressively worsening left shoulder pain. He has been treated with acromioclavicular joint injections with mild short-term improvement. He reports pain with motion of the shoulder and with lifting. He reports that he is unable to lie on his left side. He denies stiffness and weakness. He denies paresthesias. Due to functional impairment and failure to improve with conservative measures, the patient has elected to proceed with surgical intervention. REVIEW OF SYSTEMS: No chest pain, no shortness of breath. No dysuria. PAST MEDICAL HISTORY: 1. Reflux. 2. Migraine headache. 3. Hypertension. 4. Insomnia. 5. Neck pain. 6. Foot drop. 7. Hyperlipidemia. 8. Arrhythmia. 9. Post-polio syndrome. PAST SURGICAL HISTORY: 1. Cervical spine. 2. Hemorrhoidectomy. 3. Tonsillectomy. 4. Polio surgeries. FAMILY HISTORY: Significant for ischemic heart disease, hypertension, cancer, alcoholism. PRIMARY CARE PROVIDER: Dr. Long. MEDICATIONS: 1. Tamsulosin 2. trazodone 3. Toprol. 4. Celebrex. 5. Meloxicam. 6. Cyanocobalamin 7. VESIcare. 8. Pepcid. 9. Hydrochlorothiazide. 10. Lisinopril. 11. Vitamin D. ALLERGIES: Penicillin. SOCIAL HISTORY: The patient's a previous smoker. He denies alcohol use. Radiographs revealed complete severe acromioclavicular degenerative changes. PHYSICAL EXAMINATION: The patient's well-developed, well-nourished nourished, in no acute distress. HEENT: Normocephalic, atraumatic. Pupils are equal, round, and active to light. Oropharynx is clear. NECK: Supple with no lymphadenopathy. LUNGS: Clear to auscultation bilaterally. HEART: Regular rate and rhythm. ABDOMEN: Soft, nontender, nondistended. EXTREMITY EXAM: The left shoulder demonstrates tenderness at his acromioclavicular joint. He has active forward elevation of 170 degrees, external rotation is 50 degrees, internal rotation to T12. He has negative Neer, negative Meyer sign. No pain with apprehension. No gross weakness with abduction or external rotation. He has pain with cross body adduction which reproduces symptoms. IMPRESSION: Left acromioclavicular primary osteoarthritis, unresponsive to conservative measures. PLAN: Left shoulder arthroscopy with distal clavicle excision, possible open rotator cuff repair. The risks, benefits, options, ramifications and recovery have been discussed at length with the patient. He understands and wishes to proceed. Job ID: [id number] Dictated Date: 07/26/2016 12:19:00 Blasting [place] [employer]er Date: 07/26/2016 12:31:17/alessia
[~2016-08-04] VITALS: Ht 182.9 cm; Wt 119.1 kg
[~2016-08-04] MED LIST changes: +ACET-77 PO; +BUPIVACAINE 0.25% 30 ML (SENSORCAINE) VIAL ONE; +CHOL500044 PO; +CLINDAMYCIN 600 MG/50 ML IVPB 50 ML IV ONE; +DEXAMETHASONE PF 10 MG/ML (DECADRON) VIAL ONE; +FAMO20TA3 PO; +FAMOTIDINE 20MG/2ML IV (PEPCID) IV ONE; +GABA-488 PO; +GLYCOPYRROLATE 0.2 MG/ML (ROBINUL) 2 ML VIAL ONE; +LACTATED RINGERS 1,000 ML IV ONE; +LIDOCAINE PF 2% 10 ML (XYLOCAINE) AMP ONE; +LISI-552 PO; +METO-270 PO; +MIDAZOLAM 2 MG/2 ML (VERSED) VIAL ONE; +NEOSTIGMINE (BLOXIVERZ ) 1 MG/1ML 10 ML VIAL ONE; +ONDANSETRON 4 MG/2 ML (SDV) Z0FRAN IV ONE; +ONDANSETRON 4 MG/2 ML (SDV) Z0FRAN ONE; +ROCURONIUM 50 MG/5 ML (ZEMURON) VIAL IV ONE; +SEVOFLURANE (ULTANE) 15 ML INHAL SOLN ONE; +SOLI10TA2 PO; +[UNRECOGNIZED DRUG - CODE] PO; +fentaNYL INJECTION 100 MCG/2 ML AMP IV PRN; +fentaNYL INJECTION 250 MCG/5 ML AMP ONE; +morphine INJ 10 MG/ML 1ML (SYR OR VIAL) IV PRN; +morphine PF (DURAMORPH) 10 MG/10 ML AMP ONE; +oxyCODONE/APAP 5/325MG (PERCOCET 5) TABLET PO PRN; +proPOfol 200 MG/20 ML (DIPRIVAN) VIAL IV ONE
[2016-08-04] MEDS: LACTATED RINGERS 1,000 ML IV PRN ×2 (09:08→10:15)
--- NOTE | 2016-08-04 09:26 | Progress Note-Pre Operative ---
Pre-Operative Progress Note H&P Reviewed The H&P was reviewed, patient examined and no changes noted. Date H&P Reviewed: Aug 04, 2016 Time H&P Reviewed: 09:24 Pre-Operative Diagnosis: left acromioclavicular arthritis primary YAJAIRA ANN MD Aug 04, 2016 09:25
--- NOTE | 2016-08-04 09:27 | Progress Note-Post Operative ---
Post-Operative Progess Note Inspector Handbag Frames Eloy Joyce Pre-Operative Diagnosis left acromioclavicular arthritis primary Post-Operative Diagnosis left acromioclavicular arthritis primary, glenoid chondromalacia, SLAP tear, labral tear, impingement Post-Op Procedure Note Date of Procedure: Aug 04, 2016 Name of Procedure: left shoulder arthroscopic biceps tenotomy, labral debridement, chondroplasty of the glenoid, acromioplasty and distal clavicle excision Anesthesia Type GETA Estimated blood loss (mL): minimal Packing: none Specimen(s) collected none YAJAIRA ANN MD Aug 04, 2016 09:26
[2016-08-04 09:36] VITALS: BP 144/82
--- NOTE | 2016-08-05 11:33 | OPERATIVE REPORT ---
PROCEDURE PHYSICIAN: YAJAIRA ANN DATE OF PROCEDURE: 08/04/2016 PREOPERATIVE DIAGNOSIS: Left shoulder primary acromioclavicular arthrosis. POSTOPERATIVE DIAGNOSIS: 1. 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 3. Left shoulder SLAP tear. 4. Left shoulder labral tear. 5. Left shoulder impingement. PROCEDURE: 1. Left shoulder arthroscopic biceps tenotomy. 2. Left shoulder arthroscopic labral debridement. 3. Left shoulder arthroscopic chondroplasty of the glenoid. 4. Left shoulder arthroscopic acromioplasty. 5. Left arthroscopic distal clavicle excision. SURGEON: Dr. Ann INSIDE POLISHER: Eloy Joyce who assisted throughout the procedure and closed the incisions. ANESTHESIA: General endotracheal by Yasihra Iqbal CRNA. ESTIMATED BLOOD LOSS: Minimal. DRAINS: None. COMPLICATIONS: None. POSTOPERATIVE PLAN: Sling for comfort with progressive activities as symptoms allow. STATEMENT OF MEDICAL NECESSITY: The patient is a 71-year-old gentleman with history of polio, who weight-bears significantly on his left upper extremity. He reported increasing pain in his shoulder, worse with weight-bearing. He was markedly tender at his acromioclavicular joint and had pain with cross body adduction. Radiographs revealed some mild degenerative changes of his glenohumeral joint as well. Due to functional impairment and failure to improve with conservative measures, the patient elected to proceed with surgical intervention. Examination under anesthesia revealed forward elevation 170 degrees, external rotation of 70 degrees, internal rotation of 60 degrees. ARTHROSCOPIC FINDINGS: The glenoid demonstrated grade 4 chondral loss inferiorly in a 5 x 8 area with surrounding grade 3 chondral flaps. There was a type II SLAP tear. There was degenerative tear in the anterior labrum from the 7 to 9 o'clock positions. The humeral head demonstrated no gross chondral abnormalities. The subacromial space demonstrated dense bursitis with sloping of the anterolateral acromion and marked prominence of the distal clavicle at the acromioclavicular joint. No rotator cuff tearing was noted on the bursal or articular side. PROCEDURE: After risks and benefits of the procedure were discussed and questions were answered, an informed consent was signed and placed on the chart. The operative site was confirmed in the preoperative holding area and initialed by the surgeon. The patient was transferred to the operating room. After adequate general endotracheal anesthetic were obtained, a timeout was called confirming the operative site. The left upper extremity was prepped and draped in the usual sterile fashion. The shoulder joint was injected with 20 mL of fluid as was the subacromial space. A standard posterior portal was placed and under direct visualization, anterior portal was created in the interval between the biceps, subscapularis and glenoid. A diagnostic arthroscopy was carried out with the above findings noted. The biceps anchor was released and the stump was debrided with a shaver. The anterior labral tear was debrided with the shaver back to a stable edge and the chondral malacia on the glenoid was debrided back to a stable edge. The scope was then redirected into the subacromial space and a lateral portal was created. Bursectomy was performed and the acromion was planed to a flat type I acromion. Through the anterior portal and viewing through the lateral portal, the distal 8 mm of the clavicle was excised from anterior to posterior and from medial to lateral. The scope was then placed anteriorly into the acromioclavicular joint to ensure adequate resection. The subacromial space was copiously irrigated. Port sites were closed with 4-0 nylon in simple interrupted fashion. The shoulder joint was injected with Duramorph. Portal sites were infiltrated with plain Marcaine. A soft dressing and sling were applied. The patient was transported to the recovery room, awake, and in stable condition. Job ID: [id number] Dictated Date: 08/04/2016 10:34:27 Reel Stripper Date: 08/05/2016 11:23:54 / alessia
== END | disposition home or self-care (01) ==
LOC: SDC 07:55
PROVIDERS: ATTEND Orthopaedic Surgery
DX: M75.102 Unspecified rotator cuff tear or rupture of left shoulder, not specified as traumatic (principal); M75.42 Impingement syndrome of left shoulder; S43.432A Superior glenoid labrum lesion of left shoulder, initial encounter; M19.012 Primary osteoarthritis, left shoulder; E78.5 Hyperlipidemia, unspecified; G14 Postpolio syndrome; Z87.891 Personal history of nicotine dependence; Z79.899 Other long term (current) drug therapy; Z11.2 Encounter for screening for other bacterial diseases
CPT/HCPCS: 87081

== ENCOUNTER 2016-10-25 13:16 | Emergency (ER) | payer MEDICARE, MEDICAID ==
[~2016-10-25] VITALS: Ht 177.8 cm; Wt 99.8 kg
[~2016-10-25 13:16] MED LIST changes: +ACET-77 PO
[2016-10-25] MEDS ORDERED: TETANUS,DIPTH,PERTUSS P/F (BOOSTRIX) 0.5 ML VIAL IM ONE (13:45)
--- NOTE | 2016-10-25 13:55 | ED Fall/Injury ---
General Chief Complaint: Laceration Stated Complaint: FALL EYEBROW LAC Nursing Triage Note: c/o laceration to left eyebrow. Pt fell down at the [facility]. Denies LOC. Pt awake, alert, and active. Source: patient Exam Limitations: no limitations History of Present Illness Time seen by provider: 13:24 Initial Comments This 71-year-old gentleman presents to emergency room with complaints of minor head injury after stumbling on the concrete and striking his head. He has a shallow laceration lateral to the left brow. He denies any pain in the head or neck. He denies any other injuries. There was no loss of consciousness. He denies any symptoms of concussion such as confusion, nausea, vision changes, headache, etc. Bleeding is controlled. Patient has post polio syndrome and neurologic deficits impairing ambulation as a result. He ambulates with a walker. He denies any anticoagulant use or antiplatelet use. Allergies and Home Medications Allergies Coded Allergies: Penicillins (Unverified Allergy, Unknown, 11/03/14) Home Medications Acetaminophen 500 Mg Tablet, 1,000 MG PO Q6H PRN for MILD PAIN, #100 Prescribed by: CASEY CONNOR on 08/13/16 0746 Cholecalciferol (Vitamin D3) 5,000 Unit Tablet, 5,000 UNIT PO DAILY, (Reported) Cyanocobalamin 1,000 Mcg/Ml Vial, 1,000 MCG IM monthly, (Reported) Famotidine 20 Mg Tablet, 20 MG PO BID, (Reported) Gabapentin 300 Mg Capsule, 300 MG PO TID, (Reported) Hydrochlorothiazide 25 Mg Tablet, 25 MG PO DAILY, (Reported) Lisinopril 20 Mg Tablet, 20 MG PO HS, (Reported) Metoprolol Succinate 25 Mg Tab.er.24h, 25 MG PO DAILY, (Reported) [place]-3/Dha/Epa/Fish Oil 1,000 Mg Capsule, 3,000 MG PO DAILY, (Reported) take 3 (1,000mg) tabs Solifenacin Succinate 10 Mg Tablet, 10 MG PO HS, (Reported) Tamsulosin Hcl 0.4 Mg Cap.sr.24h, 0.4 MG PO DAILY, (Reported) Trazodone Hcl 50 Mg Tablet, 50 MG PO HS, (Reported) Constitutional: no symptoms reported Eyes: No Symptoms Reported Ears, Nose, Mouth, Throat: no symptoms reported Respiratory: no symptoms reported Cardiovascular: no symptoms reported Gastrointestinal: no symptoms reported Genitourinary: no symptoms reported Musculoskeletal: no symptoms reported Skin: see HPI Psychiatric/Neurological: See HPI Past Nvsevlx-Igjqcv-Ourquy Hx Patient Social History Alcohol Use: Denies Use Recreational Drug Use: No Smoking Status: Former Smoker Type Used: Cigarettes Recent Foreign Travel: No Contact w/Someone Who Travel: No Recent Infectious Disease Expo: No Recent Hopitalizations: No Immunizations Up To Date Tetanus Booster (TDap): Unknown Date of Influenza Vaccine: Mar 06, 2016 Seasonal Allergies Seasonal Allergies: No Surgeries HX Surgeries: Yes (left leg fx x2, right leg x2, neck sx) Surgeries: Tonsillectomy, Tracheostomy Respiratory Hx Respiratory Disorders: No Cardiovascular Hx Cardiac Disorders: Yes Cardiac Disorders: Hypertension Neurological Hx Neurological Disorders: Yes (heat stroke) Reproductive System Sexually Transmitted Disease: No HIV/AIDS: No Genitourinary Hx Genitourinary Disorders: No Gastrointestinal Hx Gastrointestinal Disorders: Yes Hx Gastrointestinal Disorders: No Gastrointestinal Disorders: Gastroesophageal Reflux Musculoskeletal Hx Musculoskeletal Disorders: Yes (polio) Musculoskeletal Disorders: Arthritis, Foot Drop, Fractures Endocrine Hx Endocrine Disorders: No HEENT HX ENT Disorders: Yes (glasses, ) HEENT Disorders: Cataract Loss of Vision: Denies Hearing Impairment: Denies Cancer Hx Cancer: No Psychosocial Hx Psychiatric Problems: No Integumentary HX Skin/Integumentary Disorder: No Blood Transfusions Hx Blood Disorders: No Family Medical History Family Medial History: Cardiovascular disease 19 FATHER Completed stroke 19 FATHER Dementia 19 FATHER Hypertension 19 FATHER 19 MOTHER G8 BROTHER G8 SISTER Myocardial infarction 19 FATHER Thyroid disease G8 SISTER Physical Exam Vital Signs Vital Sign - Last 12Hours 10/25/16 13:33 Temp 97.2 Pulse 70 Resp 16 B/P (MAP) 168/85 Pulse Ox 98 Capillary Refill : Less Than 3 Seconds General Appearance: WD/WN, no apparent distress HEENT: PERRL/EOMI, normal ENT inspection, TMs normal, pharynx normal, other ( dentures. Shallow stellate laceration about 2 cm in length on the left lateral brow) Neck: non-tender, full range of motion, supple, normal inspection Cardiovascular: regular rate, rhythm, no edema, no murmur Respiratory: lungs clear, normal breath sounds, no respiratory distress, no accessory muscle use Extremities: normal inspection, no pedal edema Neurologic/Psychiatric: kitchen clerk II-XII nml as tested, alert, normal mood/affect, oriented x 3, other (chronic motor deficit secondary to postpolio syndrome) Skin: normal color, warm/dry, other (2 cm stellate shallow laceration on the left lateral brow) Fuentes Coma Score Best Eye Response: (4) Open Spontaneously Best Verbal Response: (5) Oriented Best Motor Response: (6) Obeys Commands Fuentes Total: 15 Progress/Results/Core Measures Results/Orders My Orders Orders - TERRELL HOLLAND MD Dipht,Pertuss(Acell),Tet Adult (Boostrix (10/25/16 13:45) Medications Given in ED Current Medications Medications Dose Ordered Sig/Nery Route Start Time Stop Time Status Last Admin Dose Admin Diphtheria/ Tetanus/Acell Pertussis 0.5 ml ONCE ONCE IM 10/25/16 13:45 10/25/16 13:46 DC 10/25/16 13:47 0.5 ML Vital Signs/I&O Vital Sign - Last 12Hours 10/25/16 10/25/16 13:33 13:47 Temp 97.2 97.2 Pulse 70 Resp 16 B/P (MAP) 168/85 Pulse Ox 98 Blood Pressure Mean: 112 Progress Note : Progress Note The only indicator for CT in this patient is age over [address] was offered to the patient but he declines. He is in an assisted-living situation with staff who can check on him. He will return if he develops any further symptoms. The shallow laceration on the face did not require repair. Boostrix tetanus booster was administered prior to departure. Wound was cleaned by nursing staff. Departure Impression Impression: Primary Impression: Fall on same level Qualified Codes: W18.30XA - Fall on same level, unspecified, initial encounter Additional Impression: Facial laceration Qualified Codes: S01.81XA - Laceration without foreign body of other part of head, initial encounter Disposition: 01 HOME, SELF-CARE Condition: Improved Departure-Patient Inst. Decision time for Depature: 13:54 Referrals: YENNI FLORES MD (PCP/Family) Primary Care Physician Patient Instructions: Minor Head Injury Add. Discharge Instructions: Return to the emergency room if you have worsening symptoms or develop new symptoms such as changes in vision, nausea, irritability, sleep disturbance, worsening headache, confusion, etc. All discharge instructions reviewed with patient and/or family. Voiced understanding. TERRELL HOLLAND MD October 25, 2016 13:55
[2016-10-25 14:27] VITALS: BP 154/80
== END 2016-10-25 14:27 ==
LOC: EDUNIT# 13:16 → ER 13:19
DX: S01.112A Laceration without foreign body of left eyelid and periocular area, initial encounter (principal); Z23 Encounter for immunization; G14 Postpolio syndrome; I10 Essential (primary) hypertension; Z79.899 Other long term (current) drug therapy; Z87.891 Personal history of nicotine dependence; W01.0XXA Fall on same level from slipping, tripping and stumbling without subsequent striking against object, initial encounter; Y92.129 Unspecified place in nursing home as the place of occurrence of the external cause; Y99.8 Other external cause status
CPT/HCPCS: 90471; 90715

== ENCOUNTER 2016-11-12 13:45 | Outpatient (RCR) | payer MEDICARE, MEDICAID | END 2016-11-12 14:51 | disposition home or self-care (01) | PROVIDERS: ATTEND Orthopaedic Surgery | DX: M19.011 Primary osteoarthritis, right shoulder (principal) ==

== ENCOUNTER 2018-03-02 12:47 | Outpatient (RCR) | payer MEDICARE, MEDICAID ==
[~2018-03-02 12:47] MED LIST changes: -METO-270 PO; +METO-387 PO
== END 2018-03-07 08:13 | disposition home or self-care (01) ==
PROVIDERS: ATTEND Family Medicine
DX: G14 Postpolio syndrome (principal); R29.898 Other symptoms and signs involving the musculoskeletal system

== ENCOUNTER → 2018-03-13 | Outpatient (CLI) | payer MEDICARE, MEDICAID ==
[~2018-03-13] VITALS: Ht 182.9 cm; Wt 120.2 kg
[~2018-03-13] MED LIST changes: +ALBUTEROL INH; +CATHETER FLUSH 10 ML SYR IV PRN; +CETI-267 PO; +DEXT1DRO7 OU; +FLONASE NSEACH; +LOSA50TA7 PO; +RANI150C4 PO; +REGADENOSON 0.4 MG/5 ML SYR (LEXISCAN) IV ONE
[2018-03-13 09:26] VITALS: BP 159/119
[2018-03-13 09:29] VITALS: BP 165/133
--- NOTE | 2018-03-13 12:41 | STRESS TEST ---
DATE OF SERVICE: 03/13/2018 LEXISCAN MYOVIEW STRESS TEST REPORT REFERRING PHYSICIAN: Quyen Long MD Baseline heart rate is 74, baseline blood pressure 159/119. Baseline EKG is sinus rhythm with right bundle branch block. In summary, the patient was injected with 10.16 mCi of technetium-99 Myoview and the resting images were obtained. Then, the patient received 0.4 mg of Lexiscan followed by 28.6 mCi of technetium-99 Myoview. Throughout the test, the patient was asymptomatic. Frequent PVCs and ventricular couplet noted during test. At the end of the test, EKG did not show any acute changes. The resting and stress images were reviewed and compared in the short axis, horizontal long axis, and vertical long axis views. Review of the images showed decreased uptake involving the whole inferior wall inferoapical segment and inferoseptum with mild reversibility. SSS 24, SDS 3, TID value 0.87. On the gated images, the left ventricle appeared to be in normal size with normal contractility. Calculated ejection fraction 55%. CONCLUSION: 1. The patient tolerated Lexiscan well. 2. Baseline right bundle branch block, during test the patient developed frequent premature ventricular contractions and ventricular couplets. 3. Diaphragmatic attenuation with decreased uptake involving the whole inferior wall and inferoseptum inferoapical segment with mild reversibility. 4. Normal left ventricular size with normal contractility. Calculated ejection fraction 55%. Job ID: [id number] DocumentID: [id number] Dictated Date: 03/13/2018 11:52:22 Ampoule Filler And Sealer Date: 03/13/2018 12:41:15 Dictated By: TIERRA LOO MD
== END ==
LOC: CARD 08:39
PROVIDERS: ATTEND Internal Medicine Cardiovascular Disease
DX: R94.39 Abnormal result of other cardiovascular function study (principal); I49.9 Cardiac arrhythmia, unspecified; I10 Essential (primary) hypertension; R00.2 Palpitations; E66.9 Obesity, unspecified; Z68.35 Body mass index [BMI] 35.0-35.9, adult
CPT/HCPCS: 78452; 93017

== ENCOUNTER 2018-03-15 08:51 | Day surgery (SDC) | payer MEDICARE, MEDICAID ==
[~2018-03-15] VITALS: Ht 182.9 cm; Wt 122.5 kg
[2018-03-15] VITALS (11 sets, daily range): BP systolic 108–157; BP diastolic 47–92
[~2018-03-15 08:51] MED LIST changes: -ALBUTEROL INH; -CATHETER FLUSH 10 ML SYR IV PRN; -CETI-267 PO; -DEXT1DRO7 OU; -FLONASE NSEACH; -LOSA50TA7 PO; -RANI150C4 PO; -REGADENOSON 0.4 MG/5 ML SYR (LEXISCAN) IV ONE
[2018-03-15] MEDS ORDERED: HEParin (CATH LAB) 2,000 ML IV ONE (09:03)
[2018-03-15] MEDS ORDERED: NS IV 1000 ML 1,000 ML ONE (09:03)
[2018-03-15] MEDS ORDERED: NS IV 1000 ML 1,000 ML IV SCH ×2 (09:15→13:02)
[2018-03-15 09:37] LABS: HEMOGLOBIN 12.7 G/DL (13.3-17.7); MEAN PLATELET VOLUME 9.9 FL (7.4-10.4); RED BLOOD COUNT 4.53 10^6/uL (4.35-5.85); RED CELL DISTRIBUTION WIDTH 14.6 % (10.0-14.5); WHITE BLOOD COUNT 6.1 10^3/uL (4.3-11.0)
[2018-03-15] MEDS ORDERED: FLU QUADRIvalent (5+ YOA) 2018-2019 (AFLURIA) 0.5 ML IM ONE (09:45)
[2018-03-15] MEDS ORDERED: ALBUTEROL INH (09:50)
[2018-03-15] MEDS ORDERED: FLONASE NSEACH (09:50)
[2018-03-15] MEDS ORDERED: DEXT1DRO7 OU (09:50)
[2018-03-15] MEDS ORDERED: CETI-267 PO (09:50)
[2018-03-15] MEDS ORDERED: LOSA50TA7 PO (09:50)
[2018-03-15] MEDS ORDERED: RANI150C4 PO (09:50)
--- NOTE | 2018-03-15 09:52 | Diagnostic Imaging Report ---
Indication: Preop screening and heart disease. Findings: Heart size is normal. Some minimal scarring in the lung bases. No pleural effusion or pneumothorax. Mediastinum unremarkable. Impression: No acute cardiopulmonary abnormality. Minimal scarring of the lung bases. Dictated by: Dictated on workstation # [id number]
[2018-03-15 09:59] LABS: BUN/CREATININE RATIO 20; CARBON DIOXIDE 33 MMOL/L (21-32); CHLORIDE 99 MMOL/L (98-107); CREATININE SERUM 0.88 MG/DL (0.60-1.30); POTASSIUM 3.7 MMOL/L (3.6-5.0); SODIUM 140 MMOL/L (135-145)
[2018-03-15 10:00] LABS: ALANINE AMINOTRANSFERASE 37 U/L (0-55); ALBUMIN 4.1 GM/DL (3.2-4.5); ALKALINE PHOSPHATASE 58 U/L (40-136); BILIRUBIN,TOTAL 0.6 MG/DL (0.1-1.0); CALCIUM 9.5 MG/DL (8.5-10.1); CHOLESTEROL 173 MG/DL (< 200); GFR ESTIMATED > 60; GLUCOSE 139 MG/DL (70-105); HDL CHOLESTEROL 45 MG/DL (40-60); INR 1.1 (0.8-1.4); PROTHROMBIN TIME PATIENT 13.8 SEC (12.2-14.7); TRIGLYCERIDES 99 MG/DL (<150); VLDL CHOLESTEROL 20 MG/DL (5-40)
[2018-03-15] MEDS ORDERED: LIDOCAINE 1% INJ 20 ML 20 ML VIAL ONE (11:46)
[2018-03-15] MEDS ORDERED: HEParin 1000 UNIT/ML (10ML VIAL) FOR BOLUS ONE (12:14)
[2018-03-15] MEDS ORDERED: fentaNYL INJECTION 100 MCG/2 ML AMP ONE (12:14)
[2018-03-15] MEDS ORDERED: MIDAZOLAM 5 MG/5 ML (VERSED) VIAL ONE (12:14)
--- NOTE | 2018-03-15 13:09 | Cardiac Cath Report ---
Cardiac Cath Report Physician (s)/[employer]writer (s) Physician TIERRA LOO MD Pre-Procedure Diagnosis Pre-Procedure Diagnosis: coronary artery disease Post-Procedure Note Procedure Start Date: Mar 15, 2018 Name of Procedure: left heart catheterization Findings/Procedure Note PROCEDURE NOTE: After explaining the procedure to the patient, all pros and cons were explained , all questions were answered. The patient signed the consent and then he was placed on the cardiac catheterization laboratory. Groin was prepped SL fashion local anesthesia was used. Sheath placed in the right femoral artery. Carlo right and left catheter were used to access the coronary system. Pigtail was used to access the left ventricular cavity. pressure was measured At the end of the procedure the sheath was removed. Closure device was used FINDINGS: Hemodynamics LV 110/12, mean pressure of 12 Aorta 119/65 mean of 88 ANATOMY: Left Main is free of obstructive disease Left Anterior Descending is free of obstructive disease Left Circumflex is dominant artery with mild disease Right Coronory Artery is nondominant artery with mild disease CONCLUSION: 1. Mild coronary artery disease nonobstructive disease 2. Normal left ventricular end-diastolic pressure DISCUSSION AND RECOMMENDATION: continue with medication, no intervention is needed Anesthesia Type: Conscious Sedation Estimated blood loss (mL): 10 ml Contrast Amount: 35 ml Total Radiation Dose: 290 mGy Post-Procedure Diagnosis Post-operative diagnosis: coronary artery disease Hypertension Hyperlipidemia Chest pain nonspecific etiology TIERRA LOO MD Mar 15, 2018 13:09
[2018-03-15] MEDS ORDERED: PATIENT MAY USE OWN MEDS, ALL PO SCH (13:15)
== END 2018-03-15 17:45 | disposition home or self-care (01) ==
LOC: CATH 08:51 → SDC 13:12 → CATH 17:45
PROVIDERS: ATTEND Internal Medicine Cardiovascular Disease
DX: I25.10 Atherosclerotic heart disease of native coronary artery without angina pectoris (principal); R07.89 Other chest pain; I49.3 Ventricular premature depolarization; I10 Essential (primary) hypertension; I45.10 Unspecified right bundle-branch block; I65.23 Occlusion and stenosis of bilateral carotid arteries; E78.5 Hyperlipidemia, unspecified; E66.9 Obesity, unspecified; Z68.35 Body mass index [BMI] 35.0-35.9, adult; Z86.12 Personal history of poliomyelitis; Z87.891 Personal history of nicotine dependence; Z79.899 Other long term (current) drug therapy
CPT/HCPCS: 36415; 71045; 80053; 80061; 85027; 85610; 85730; 87081; 90471; 90686; 93458

== ENCOUNTER 2018-03-20 14:13 | Outpatient (RCR) | payer MEDICARE, MEDICAID ==
[~2018-03-20 14:13] MED LIST changes: +ALBUTEROL INH; +CETI-267 PO; +DEXT1DRO7 OU; +FLONASE NSEACH; +LOSA50TA7 PO; +RANI150C4 PO
== END 2018-03-20 15:13 | disposition home or self-care (01) ==
PROVIDERS: ATTEND Family Medicine
DX: G14 Postpolio syndrome (principal); R29.898 Other symptoms and signs involving the musculoskeletal system

== ENCOUNTER → 2018-03-23 | Outpatient (CLI) | payer MEDICARE, MEDICAID | LOC: CARD 11:42 | PROVIDERS: ATTEND Internal Medicine Cardiovascular Disease | DX: R94.39 Abnormal result of other cardiovascular function study (principal); I49.9 Cardiac arrhythmia, unspecified; I10 Essential (primary) hypertension; R00.2 Palpitations; I08.1 Rheumatic disorders of both mitral and tricuspid valves; E66.9 Obesity, unspecified; Z68.36 Body mass index [BMI] 36.0-36.9, adult | CPT/HCPCS: 93306 ==

== ENCOUNTER 2018-11-10 11:54 | Emergency (ER) | payer MEDICARE, MEDICAID ==
[~2018-11-10] VITALS: Ht 182.9 cm; Wt 122.5 kg
[~2018-11-10 11:54] MED LIST changes: +LOSA50TA63 PO; -LOSA50TA7 PO
--- NOTE | 2018-11-10 12:43 | ED Lower Extremity ---
General Chief Complaint: Lower Extremity Stated Complaint: R ANKLE PAIN Nursing Triage Note: PT WAS WALKING WHEN HIS RIGHT LEG BRACE "LOCKED UP" AND HE FELL. PT HAS A FULL LEG BRACE FROM [facility]. PT DENIES ANY OTHER INJURY FROM FALL. PT DENIES N/V/D/FEVER. PT DENIES LOC. Nursing Sepsis Screen: No Definite Risk Source: patient Exam Limitations: no limitations History of Present Illness Date Seen by Provider: Nov 10, 2018 Time Seen by Provider: 12:00 Initial Comments 73-year-old male who presents to the emergency room with complaints of right ankle pain after fall. He reports he has a history of polio and wears a leg brace at all times but the leg brace locked up and gave out causing him to twist his ankle. He denies hitting his head or any other injuries from the fall. He is alert and oriented on arrival to the emergency room. He was brought to the emergency room by [facility]. Pain/Injury Location: right ankle Method of Injury: fell, twisted Modifying Factors: Worse With Movement Allergies and Home Medications Allergies Coded Allergies: Penicillins (Unverified Allergy, Unknown, 11/03/14) Home Medications Acetaminophen 500 Mg Tablet, 1,000 MG PO Q6H PRN for MILD PAIN Prescribed by: CASEY CONNOR on 08/13/16 0746 Cetirizine HCl 10 Mg Tab.rapdis, 10 MG PO DAILY, (Reported) Cholecalciferol (Vitamin D3) 5,000 Unit Tablet, 5,000 UNIT PO DAILY, (Reported) Cyanocobalamin 1,000 Mcg/Ml Vial, 1,000 MCG IM monthly, (Reported) Dextran 70/Hypromellose 1 Each Droperette, 1 DROP OU PRN, (Reported) Gabapentin 300 Mg Capsule, 300 MG PO BID, (Reported) Hydrochlorothiazide 25 Mg Tablet, 25 MG PO DAILY, (Reported) Hydrocodone Bit/Acetaminophen 1 Tab Tab, 1 EACH PO Q4-6HR PRN for PAIN-MODERATE Prescribed by: KVNG POND on 11/10/18 1341 Losartan Potassium 50 Mg Tablet, 50 MG PO DAILY, (Reported) Metoprolol Succinate 25 Mg Tab.er.24h, 25 MG PO DAILY, (Reported) [place]-3/Dha/Epa/Fish Oil 1,000 Mg Capsule, 3,000 MG PO DAILY, (Reported) take 3 (1,000mg) tabs Ranitidine HCl 150 Mg Capsule, 150 MG PO BID, (Reported) Tamsulosin Hcl 0.4 Mg Cap.sr.24h, 0.4 MG PO DAILY, (Reported) Trazodone Hcl 50 Mg Tablet, 50 MG PO HS, (Reported) [Albuterol 9 Mcg/Inh] Unknown Strength , 2 PUFF INH PRN PRN for SHORTNESS OF BREATH, (Reported) [Flonase 50MCG/Inh] , 1 SPRAY NSEACH PRN, (Reported) Patient Home Medication List Home Medication List Reviewed: Yes Review of Systems Constitutional: see HPI; No chills, No fever Musculoskeletal: see HPI, joint pain (right ankle) All Other Systems Reviewed Negative Unless Noted: Yes Past Oxeuggd-Ngmqla-Gxihwk Hx Past Med/Social Hx: Reviewed Nursing Past Med/Soc Hx Patient Social History Alcohol Use: Denies Use Recreational Drug Use: No Type Used: Cigarettes Former Smoker, Quit: Mar 15, 2014 Recent Foreign Travel: No Contact w/Someone Who Travel: No Recent Infectious Disease Expo: No Recent Hopitalizations: No Physical Abuse: No Sexual Abuse: No Mistreated: No Fear: No Immunizations Up To Date Tetanus Booster (TDap): Unknown Date of Influenza Vaccine: Mar 06, 2016 Seasonal Allergies Seasonal Allergies: No Past Medical History Surgeries: Yes (left leg fx x2, right leg x2, neck sx, LEFT SHOULDER SCOPE) Tonsillectomy, Tracheostomy Respiratory: No (uses 02 occassionally at hs) Currently Using CPAP: No Currently Using BIPAP: No Cardiac: Yes Hypertension Neurological: Yes (heat stroke) Sexually Transmitted Disease: No HIV/AIDS: No Genitourinary: No Gastrointestinal: Yes Gastroesophageal Reflux Musculoskeletal: Yes (polio) Arthritis, Foot Drop, Fractures Endocrine: No Cataract Loss of Vision: Denies Hearing Impairment: Denies Cancer: No Psychosocial: No Integumentary: No Blood Disorders: No Family Medical History Reviewed Nursing Family Hx Cardiovascular disease 19 FATHER Completed stroke 19 FATHER Dementia 19 FATHER Hypertension 19 FATHER 19 MOTHER G8 BROTHER G8 SISTER Myocardial infarction 19 FATHER Thyroid disease G8 SISTER Physical Exam Vital Signs Vital Signs - First Documented 11/10/18 12:03 Temp 97.5 Pulse 83 Resp 18 B/P (MAP) 175/101 (125) Pulse Ox 94 O2 Delivery Room Air Capillary Refill : Less Than 3 Seconds Height, Weight, BMI Height: 6'0.00" Weight: 270lbs. 0.0oz. 122.783745bm; 36.6 BMI Method:Estimated General Appearance: WD/WN, no apparent distress Cardiovascular: normal peripheral pulses, regular rate, rhythm, no edema, no gallop, no JVD, no murmur Respiratory: chest non-tender, lungs clear, normal breath sounds, no respiratory distress, no accessory muscle use Ankles: right ankle ecchymosis, right ankle pain Neurologic/Tendon: normal sensation, normal motor functions, normal tendon fun ctions, responds to pain, no evidence tendon injury Neurologic/Psychiatric: alert, normal mood/affect, oriented x 3 Skin: normal color, warm/dry Normal distal pulses and capillary refill. Progress/Results/Core Measures Results/Orders My Orders Orders - KVNG POND Ankle, Right, 3 Views (11/10/18 12:00) Rx-Hydrocodone/Apap 5-325 Mg (Rx-Vicodin (11/10/18 14:00) Vital Signs/I&O 11/10/18 12:03 Temp 97.5 Pulse 83 Resp 18 B/P (MAP) 175/101 (125) Pulse Ox 94 O2 Delivery Room Air Blood Pressure Mean: 125 Progress Progress Note : Time: 13:10 Progress Note I have seen and evaluated the patient. I have discussed the case with Venkata at this time. He does not feel that the patient is a surgical candidate for anything of orthopedic surgery at this time. He recommends placing the patient in a walking boot with nonweightbearing at all times and having him follow-up in his office next week. He agrees with plan of care, plans for discharge, return precautions were given. Diagnostic Imaging Diagonstic Imaging: Xray Plain Films/CT/US/NM/MRI: ankle Comments [facility] [place] NAME: ARAMIS GUZMAN [facility] REC#: [id number] PT STATUS: REG ER : 1945 PHYSICIAN: KVNG POND ADMIT DATE: 11/10/18/ER Draft Date of Exam:11/10/18 ANKLE, RIGHT, 3 VIEWS INDICATION: Fall. COMPARISON: None available. TECHNIQUE: Three radiographs of the right ankle dated November 10, 2018. FINDINGS: Osseous structures are demineralized. Severe pes planus deformity is noted. Abnormal configuration of the hind foot with degenerative changes and partial ankylosis throughout the mid and hind foot. Acute mildly comminuted fracturing of the medial malleolus is present with slight distraction. Acute obliquely oriented fracture involving the distal fibular shaft superior to the level of the tibial plafond is present. Asymmetry of the ankle mortise with the lateral aspect appearing wider than the medial aspect. Significant soft tissue swelling is noted about the ankle. Linear density is present medial to the distal tibia which may relate to a fracture fragment, vascular calcification, or soft tissue calcification. IMPRESSION: Acute fracturing of the medial malleolus and distal fibular shaft as above with associated soft tissue swelling about the ankle. Osseous demineralization and abnormal configuration of the mid and hind foot. This is chronic in nature and not optimally visualized. This likely relates to patient's history of polio with possible underlying Charcot foot. Asymmetry of the ankle mortise, suggesting underlying ligamentous injury. Called to Kvng Huang at 12:44 p.m. By debby. Dictated on workstation # [id number] Dict: 11/10/18 1227 Trans: 11/10/18 1246 CVB [id number] Reviewed: Reviewed by Me Departure Impression Primary Impression: Fx medial malleolus-closed Additional Impression: Fracture of distal fibula Disposition: 01 HOME, SELF-CARE Condition: Stable/Unchanged Departure-Patient Inst. Decision time for Depature: 13:32 Referrals: YENNI FLORES MD (PCP/Family) Primary Care Physician SMILEY LLAMAS MD, ROBERT F DO ZAFUTA, MICHAEL P MD Patient Instructions: Ankle Fracture (DC) Add. Discharge Instructions: Take medications as directed. Ice 20 minute intervals. Wear the splint until you follow up with Dr. Llamas next week. Call today to schedule an appointment for follow-up. Do not bear any weight to the ankle. Use wheelchair for crutches at all times. Return back to the emergency room for worsening symptoms or concerns as needed. All discharge instructions reviewed with patient and/or family. Voiced understanding. Scripts Hydrocodone Bit/Acetaminophen (Hydrocodone/Acetaminophen 5/325mg Tablet) 1 Tab Tab 1 EACH PO Q4-6HR PRN for PAIN-MODERATE MDD 10 for 3 Days, #14 TAB Prov: KVNG POND 11/10/18 KVNG POND Nov 10, 2018 12:43
--- NOTE | 2018-11-10 12:46 | Diagnostic Imaging Report ---
INDICATION: Fall. COMPARISON: None available. TECHNIQUE: Three radiographs of the right ankle dated November 10, 2018. FINDINGS: Osseous structures are demineralized. Severe pes planus deformity is noted. Abnormal configuration of the hind foot with degenerative changes and partial ankylosis throughout the mid and hind foot. Acute mildly comminuted fracturing of the medial malleolus is present with slight distraction. Acute obliquely oriented fracture involving the distal fibular shaft superior to the level of the tibial plafond is present. Asymmetry of the ankle mortise with the lateral aspect appearing wider than the medial aspect. Significant soft tissue swelling is noted about the ankle. Linear density is present medial to the distal tibia which may relate to a fracture fragment, vascular calcification, or soft tissue calcification. IMPRESSION: Acute fracturing of the medial malleolus and distal fibular shaft as above with associated soft tissue swelling about the ankle. Osseous demineralization and abnormal configuration of the mid and hind foot. This is chronic in nature and not optimally visualized. This likely relates to patient's history of polio with possible underlying Charcot foot. Asymmetry of the ankle mortise, suggesting underlying ligamentous injury. Called to Tucker Huang at 12:44 p.m. By debby. Dictated by: Dictated on workstation # [id number]
[2018-11-10] MEDS ORDERED: ACHD5005 PO (13:41)
[2018-11-10] MEDS ORDERED: RX-HYDROCODONE/APAP 5/325 MG #4 TAB PK PO PRN (14:00)
[2018-11-10 14:17] VITALS: BP 175/101
--- OUTSIDE RECORDS SUMMARY | 2018-11-10 14:18 | XMS REPORT ---
Author Author JOSIAS ARCINIEGA Organization [facility] Address [address] [place] [address] Phone Unavailable Care Team Providers Care Layout Worker Name Role Phone JOSIAS ARCINIEGA Unavailable Unavailable PROBLEMS Unknown Problems ALLERGIES Substance Reaction Event Type Date Status Penicillin Unknown Non Drug Allergy Jan, Active ENCOUNTERS Encounter Location Date Diagnosis [facility] [address] [facility] [id number] [place] [id number] Jan, Dental examination Z01.20 IMMUNIZATIONS No Known Immunizations SOCIAL HISTORY Never Assessed REASON FOR VISIT ADULT OUTREACH [facility] Activity Details Follow Up prn Reason:recall VITAL SIGNS MEDICATIONS Medication Instructions Dosage Frequency Start Date End Date Duration Status Vitamin C Not-Taking Multiple Vitamins-Minerals Not-Taking Calcium Carb-Cholecalciferol Not-Taking Effexor XR Not-Taking Mucinex Not-Taking Alphagan P Not-Taking Depakote Not-Taking Divalproex Sodium Not-Taking Lorazepam Not-Taking Keppra Not-Taking Docusate Sodium Not-Taking RESULTS No Results PROCEDURES Procedure Date Ordered Result Body Site SCREENING OF A PATIENT Jan 24, 2018 Billing Notes on claim Jan 24, 2018 INSTRUCTIONS MEDICATIONS ADMINISTERED No Known Medications MEDICAL (GENERAL) HISTORY Type Description Date Medical History HBP Medical History pain in a joint Medical History urinary tract infection Medical History gastro esophagel Medical History hypertenstion Medical History herpesviral infection Medical History edema Medical History vitamin D deficiency Medical History deficiency of other vitamins Medical History muscle weakness
--- OUTSIDE RECORDS SUMMARY | 2018-11-10 14:23 | XMS REPORT | CCD ---
Author Author Quyen Long Organization Quyen Long MD, [facility] Address [address] [place] [address] Phone Care Team Providers Care Bioinformatics Specialist Name Role Phone PP Unavailable CCM Unavailable Summary Purpose Interface Exchange Insurance Providers Payer name Policy type / Coverage type Covered republican ID Effective Begin Date Effective End Date WPS Medicare Part B Medicare Part B [id number] 2017 Unknown [facility] Medicare Part B [id number] 2017 Unknown Family history Grandmother Diagnosis Age At Onset No Family Disease Entered N/A Mother Diagnosis Age At Onset Alcoholism Unknown Hyperlipidemia Unknown Hypertension Unknown Sister Diagnosis Age At Onset Hyperlipidemia Unknown Arthritis Unknown Hypertension Unknown Son Diagnosis Age At Onset No Family Disease Entered N/A Father Diagnosis Age At Onset Stroke Unknown Skin cancer Unknown Hypertension Unknown Heart disease Unknown Hyperlipidemia Unknown Sister Diagnosis Age At Onset No Family Disease Entered N/A Social History Social History Element Codes Description Effective Dates Tobacco history SNOMED CT: 7346491 Former smoker 1.5 pack daily x 45 years 12/27/2017 Marital status Unknown 10/19/2016 Living arrangements Unknown Assisted Living [facility] 04/19/2016 Number of children Unknown 1 son - lives in [place] 11/14/2013 Employment Unknown 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 Unknown Has never used illegal drugs 11/14/2013 Allergies, Adverse Reactions, Alerts Substance Reaction Codes Entered Date Inactivated Date Status * NO KNOWN ENVIRONMENTAL ALLERGIES Unknown 11/14/2013 No Inactive Date Active * NO KNOWN FOOD ALLERGIES Unknown 11/14/2013 No Inactive Date Active doxycycline hyclate RxNorm: 3640 03/17/2017 No Inactive Date Active Penicillin Unknown 11/14/2013 No Inactive Date Active Past Medical History Illness Codes Condition Status Onset Date Resolved Date Other acute sinusitis ICD- 9: 461.8 ICD-10: J01.80 Active 11/09/2018 Unknown Other allergic rhinitis ICD-9: 477.8 ICD-10: J30.89 Active 11/09/2018 Unknown Rash and other nonspecific skin eruption ICD-9: 782.1 ICD-10: R21 Active 08/17/2016 Unknown Other pruritus ICD-9: 698.9 ICD-10: L29.8 Active 08/28/2018 Unknown Essential (primary) hypertension ICD-9: 401.9 ICD-10: I10 Active 04/18/2014 Unknown Muscle weakness (generalized) ICD-9: 728.87 ICD-10: M62.81 Active 12/25/2013 Unknown Pain in right shoulder ICD-9: 719.41 ICD-10: M25.511 Active 08/21/2018 Unknown Tinea barbae and tinea capitis ICD-9: 110.0 ICD-10: B35.0 Active 06/27/2018 Unknown Pain in left shoulder ICD- 9: 719.41 ICD-10: M25.512 Active 07/16/2015 Unknown 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 Active 02/21/2014 Unknown Foot drop, right foot ICD- 9: 736.79 ICD-10: M21.371 Active 09/07/2017 Unknown Acute bronchitis due to other specified organisms ICD-9: 466.0 ICD-10: J20.8 Active 02/08/2018 Unknown Encounter for general adult medical examination with abnormal findings ICD-9: V70.0 ICD-10: Z00.01 Active 12/27/2017 Unknown Obesity, unspecified ICD- 9: 278.00 ICD-10: E66.9 Active 02/18/2015 Unknown Cellulitis of left lower limb ICD-9: 682.7 ICD-10: L03.116 Active 03/17/2017 Unknown Localized edema ICD-9: 782.3 ICD-10: R60.0 Active 05/19/2017 Unknown Tinea pedis ICD-9: 110.4 ICD-10: B35.3 Active 05/19/2017 Unknown Body mass index (BMI) 36.0-36.9, adult ICD-9: V85.36 ICD-10: Z68.36 Active 02/17/2017 Unknown Family history of ischemic heart disease and other diseases of the circulatory system ICD-9: V19.8 ICD-10: Z82.49 Active 02/17/2017 Unknown Other obesity due to excess calories ICD-9: 278.00 ICD-10: E66.09 Active 01/18/2016 Unknown Gastro-esophageal reflux disease without esophagitis ICD-9: 530.81 ICD-10: K21.9 Active 04/15/2015 Unknown Other abnormal glucose ICD-9: 790.29 ICD-10: R73.09 Active 05/23/2014 Unknown ESSENTIAL HYPERTENSION ICD-9: 401.9 Active 04/18/2014 Unknown OBESITY ICD-9: 278.00 Active 02/18/2015 Unknown Pain, eye, right ICD-9: 379.91 Active 11/04/2014 Unknown Foot drop ICD-9: 736.79 Active 09/18/2014 Unknown Carotid bruit ICD-9: 785.9 Active 07/24/2014 Unknown Seborrheic dermatitis ICD- 9: 690.10 Active 07/24/2014 Unknown Elevated blood sugar ICD- 9: 790.29 Active 05/23/2014 Unknown Leg weakness ICD-9: 729.89 Active 05/23/2014 Unknown Neck pain ICD-9: 723.1 Active 05/23/2014 Unknown Nocturia ICD-9: 788.43 Active 05/23/2014 Unknown Vitamin B12 deficiency ICD-9: 266.2 Active 05/23/2014 Unknown Hypertension Unknown Active 04/18/2014 Unknown EDEMA ICD-9: 782.3 Active 04/18/2014 Unknown HEADACHE ICD-9: 784.0 Active 04/18/2014 Unknown Nocturnal hypoxemia ICD- 9: 799.02 Active 02/21/2014 Unknown Post-polio syndrome ICD- 9: 138 Active 02/21/2014 Unknown Post-polio limb muscle weakness ICD-9: 728.87 Active 12/25/2013 Unknown Tinea pedis ICD-9: 110.4 Active 12/25/2013 Unknown Insomnia ICD-9: 780.52 Active 11/28/2013 Unknown Vitamin B12 deficiency (dietary) anemia ICD-9: 281.1 Active 11/28/2013 Unknown VITAMIN D DEFICIENCY ICD- 9: 268.9 Active 11/28/2013 Unknown Weakness ICD-9: 780.79 Active 11/28/2013 Unknown Hyperlipidemia Unknown Active 11/14/2013 Unknown Arrhythmia ICD-9: 427.9 Active 11/14/2013 Unknown Problems Condition Codes Effective Dates Condition Status Other acute sinusitis ICD- 9: 461.8 ICD-10: J01.80 11/09/2018 Active Other allergic rhinitis ICD-9: 477.8 ICD-10: J30.89 11/09/2018 Active Rash and other nonspecific skin eruption ICD-9: 782.1 ICD-10: R21 08/17/2016 Active Other pruritus ICD-9: 698.9 ICD-10: L29.8 08/28/2018 Active Essential (primary) hypertension ICD-9: 401.9 ICD-10: I10 04/18/2014 Active Muscle weakness (generalized) ICD-9: 728.87 ICD-10: M62.81 12/25/2013 Active Pain in right shoulder ICD-9: 719.41 ICD-10: M25.511 08/21/2018 Active Tinea barbae and tinea capitis ICD-9: 110.0 ICD-10: B35.0 06/27/2018 Active Pain in left shoulder ICD- 9: 719.41 ICD-10: M25.512 07/16/2015 Active 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 02/21/2014 Active Foot drop, right foot ICD- 9: 736.79 ICD-10: M21.371 09/07/2017 Active Acute bronchitis due to other specified organisms ICD-9: 466.0 ICD-10: J20.8 02/08/2018 Active Encounter for general adult medical examination with abnormal findings ICD-9: V70.0 ICD-10: Z00.01 12/27/2017 Active Obesity, unspecified ICD- 9: 278.00 ICD-10: E66.9 02/18/2015 Active Cellulitis of left lower limb ICD-9: 682.7 ICD-10: L03.116 03/17/2017 Active Localized edema ICD-9: 782.3 ICD-10: R60.0 05/19/2017 Active Tinea pedis ICD-9: 110.4 ICD-10: B35.3 05/19/2017 Active Body mass index (BMI) 36.0-36.9, adult ICD-9: V85.36 ICD-10: Z68.36 02/17/2017 Active Family history of ischemic heart disease and other diseases of the circulatory system ICD-9: V19.8 ICD-10: Z82.49 02/17/2017 Active Other obesity due to excess calories ICD-9: 278.00 ICD-10: E66.09 01/18/2016 Active Gastro-esophageal reflux disease without esophagitis ICD-9: 530.81 ICD-10: K21.9 04/15/2015 Active Other abnormal glucose ICD-9: 790.29 ICD-10: R73.09 05/23/2014 Active ESSENTIAL HYPERTENSION ICD-9: 401.9 04/18/2014 Active OBESITY ICD-9: 278.00 02/18/2015 Active Pain, eye, right ICD-9: 379.91 11/04/2014 Active Foot drop ICD-9: 736.79 09/18/2014 Active Carotid bruit ICD-9: 785.9 07/24/2014 Active Seborrheic dermatitis ICD- 9: 690.10 07/24/2014 Active Elevated blood sugar ICD- 9: 790.29 05/23/2014 Active Leg weakness ICD-9: 729.89 05/23/2014 Active Neck pain ICD-9: 723.1 05/23/2014 Active Nocturia ICD-9: 788.43 05/23/2014 Active Vitamin B12 deficiency ICD-9: 266.2 05/23/2014 Active Hypertension Unknown 04/18/2014 Active EDEMA ICD-9: 782.3 04/18/2014 Active HEADACHE ICD-9: 784.0 04/18/2014 Active Nocturnal hypoxemia ICD- 9: 799.02 02/21/2014 Active Post-polio syndrome ICD- 9: 138 02/21/2014 Active Post-polio limb muscle weakness ICD-9: 728.87 12/25/2013 Active Tinea pedis ICD-9: 110.4 12/25/2013 Active Insomnia ICD-9: 780.52 11/28/2013 Active Vitamin B12 deficiency (dietary) anemia ICD-9: 281.1 11/28/2013 Active VITAMIN D DEFICIENCY ICD- 9: 268.9 11/28/2013 Active Weakness ICD-9: 780.79 11/28/2013 Active Hyperlipidemia Unknown 11/14/2013 Active Arrhythmia ICD-9: 427.9 11/14/2013 Active Medications Medication Codes Instructions Start Date Stop Date Status Fill Instructions prednisone 20 mg tablet RxNorm: 143822 2 Tablet(s) PO daily 11/09/2018 11/13/2018 Active Zithromax Z-Brian 250 mg tablet RxNorm: 729914 1 Tablet(s) PO UD 11/09/2018 No Stop Date Active whitneypack as directed x1 hydrochlorothiazide 25 mg tablet RxNorm: 721775 TAKE ONE TABLET BY MOUTH DAILY 11/02/2018 07/29/2019 Active losartan 50 mg tablet RxNorm: 833482 TAKE ONE TABLET BY MOUTH DAILY (STARTING 09-09-2017) 11/01/2018 04/29/2019 Active ranitidine 150 mg tablet RxNorm: 163527 TAKE ONE TABLET BY MOUTH , START August 10/06/2018 02/02/2019 Active gabapentin 300 mg capsule RxNorm: 296555 TAKE ONE CAPSULE BY MOUTH TWICE A DAY 09/18/2018 03/16/2019 Active Kenalog 40 mg/mL suspension for injection RxNorm: 7547528 Milliliter(s) Inj 08/28/2018 08/28/2018 Inactive ketoconazole 2 % topical cream RxNorm: 022503 1 Application TOP BID to left ear and left arm, right arm, left - a total of 1 gram bid 08/21/2018 12/18/2018 Active ranitidine 150 mg tablet RxNorm: 557035 1 Tablet(s) PO daily 08/21/2018 10/05/2018 Inactive ketoconazole 2 % shampoo RxNorm: 172782 APPLY TO AFFECTED AREA(S) TWICE WEEKLY UNTIL RESOLVED 08/14/2018 09/10/2018 Inactive cetirizine 10 mg tablet RxNorm: 8964634 TAKE ONE TABLET BY MOUTH EVERY NIGHT AT BEDTIME 08/07/2018 03/04/2019 Active trazodone 50 mg tablet RxNorm: 967910 TAKE ONE TABLET BY MOUTH AT BEDTIME 07/18/2018 11/14/2018 Active ketoconazole 2 % shampoo RxNorm: 098768 1 TOP BIW 06/27/2018 08/13/2018 Inactive Vitamin B-12 1,000 mcg/mL injection solution RxNorm: 504439 INJECT 1ML MONTHLY 06/19/2018 11/15/2018 Active Request already responded to by other means (e.g. phone or fax) Vitamin B-12 1,000 mcg/mL injection solution RxNorm: 845428 Milliliter(s) INJECT 1ML MONTHLY 06/15/2018 06/18/2018 Inactive Zithromax Z-Brian 250 mg tablet RxNorm: 593864 1 Tablet(s) PO UD 06/14/2018 08/20/2018 Inactive robin as directed x1 tamsulosin 0.4 mg capsule RxNorm: 669568 TAKE ONE CAPSULE BY MOUTH EVERY EVENING 06/12/2018 01/07/2019 Active gabapentin 300 mg capsule RxNorm: 005918 TAKE ONE CAPSULE BY MOUTH TWICE A DAY 05/31/2018 09/17/2018 Inactive losartan 50 mg tablet RxNorm: 209814 TAKE ONE TABLET BY MOUTH DAILY 05/01/2018 09/27/2018 Inactive Toprol XL 50 mg tablet,extended release RxNorm: 673285 1 Tablet(s) PO daily 04/20/2018 No Stop Date Active Vitamin D3 5,000 unit tablet RxNorm: 462708 TAKE ONE TABLET BY MOUTH DAILY 04/05/2018 02/28/2019 Active trazodone 50 mg tablet RxNorm: 414016 TAKE ONE TABLET BY MOUTH AT BEDTIME 02/27/2018 07/17/2018 Inactive ranitidine 150 mg tablet RxNorm: 580324 1 Tablet(s) PO BID 02/13/2018 08/20/2018 Inactive hydrochlorothiazide 25 mg tablet RxNorm: 711195 TAKE ONE TABLET BY MOUTH DAILY 02/13/2018 11/01/2018 Inactive albuterol sulfate 2.5 mg/3 mL (0.083 %) solution for nebulization RxNorm: 377868 3 Milliliter(s) INH UD 02/08/2018 No Stop Date Active please deliver all of his prescriptions thank you cefdinir 300 mg capsule RxNorm: 245407 1 Capsule(s) PO BID 02/08/2018 02/17/2018 Inactive prednisone 20 mg tablet RxNorm: 294538 2 Tablet(s) PO daily 02/08/2018 02/12/2018 Inactive fluticasone 50 mcg/actuation nasal spray,suspension RxNorm: 8186515 1 [place] NASAL BID 02/07/2018 06/06/2018 Inactive fluticasone 50 mcg/actuation nasal spray,suspension RxNorm: 3421300 1 [place] NASAL BID 02/07/2018 02/06/2018 Inactive Zithromax Z-Brian 250 mg tablet RxNorm: 648322 1 Tablet(s) PO UD 02/07/2018 03/14/2018 Inactive dandyck as directed tamsulosin 0.4 mg capsule RxNorm: 557714 TAKE ONE CAPSULE BY MOUTH EVERY EVENING 01/13/2018 06/11/2018 Inactive Vitamin D3 5,000 unit tablet RxNorm: 960487 TAKE ONE TABLET BY MOUTH DAILY 01/02/2018 04/04/2018 Inactive cetirizine 10 mg tablet RxNorm: 6335133 TAKE ONE TABLET BY MOUTH EVERY NIGHT AT BEDTIME 01/02/2018 04/01/2018 Inactive cetirizine 10 mg tablet RxNorm: 0131721 1 Tablet(s) PO QHS 12/26/2017 01/01/2018 Inactive cetirizine 10 mg tablet RxNorm: 8849486 1 Tablet(s) PO QHS 12/26/2017 12/25/2017 Inactive losartan 50 mg tablet RxNorm: 829591 TAKE ONE TABLET BY MOUTH DAILY (STARTING 09-09-2017) 09/29/2017 03/27/2018 Inactive Request already responded to by other means (e.g. phone or fax) losartan 50 mg tablet RxNorm: 860125 1 Tablet(s) PO daily 09/27/2017 09/26/2017 Inactive losartan 50 mg tablet RxNorm: 972235 1 Tablet(s) PO daily 09/27/2017 09/28/2017 Inactive Bactrim DS 800 mg-160 mg tablet RxNorm: 523468 1 Tablet(s) PO BID 09/13/2017 09/19/2017 Inactive Kenalog 40 mg/mL suspension for injection RxNorm: 1658828 1 Milliliter(s) Inj 09/07/2017 09/07/2017 Inactive trazodone 50 mg tablet RxNorm: 601930 TAKE ONE TABLET BY MOUTH AT BEDTIME 08/16/2017 02/11/2018 Inactive gabapentin 300 mg capsule RxNorm: 337770 1 Capsule(s) PO BID 08/03/2017 01/29/2018 Inactive Vitamin D3 5,000 unit tablet RxNorm: 168405 TAKE ONE TABLET BY MOUTH DAILY 08/01/2017 12/28/2017 Inactive ketoconazole 2 % topical cream RxNorm: 766458 APPLY TO AFFECTED AREA(S) TWO TIMES A DAY 05/31/2017 06/29/2017 Inactive hydrochlorothiazide 25 mg tablet RxNorm: 620117 TAKE ONE TABLET BY MOUTH DAILY 05/16/2017 02/09/2018 Inactive lisinopril 20 mg tablet RxNorm: 325888 TAKE ONE TABLET BY MOUTH DAILY 05/16/2017 09/06/2017 Inactive ketoconazole 2 % topical cream RxNorm: 600003 1 Application TOP BID 03/29/2017 04/11/2017 Inactive apply to faice-deliver to [facility] please betamethasone dipropionate 0.05 % topical ointment RxNorm: 205861 1 Application TOP BID 03/29/2017 04/11/2017 Inactive apply to arm/chests for itching gabapentin 300 mg capsule RxNorm: 969307 1 Capsule(s) PO BID 03/29/2017 08/02/2017 Inactive trazodone 50 mg tablet RxNorm: 794288 TAKE ONE TABLET BY MOUTH AT BEDTIME 03/28/2017 08/15/2017 Inactive Vesicare 10 mg tablet RxNorm: 404985 TAKE ONE TABLET BY MOUTH EVERY NIGHT AT BEDTIME 03/21/2017 12/26/2017 Inactive Vesicare 10 mg tablet RxNorm: 036784 TAKE ONE TABLET BY MOUTH EVERY NIGHT AT BEDTIME 03/21/2017 06/06/2017 Inactive doxycycline hyclate 100 mg capsule RxNorm: 8361454 1 Capsule(s) PO BID 03/18/2017 03/27/2017 Inactive mupirocin 2 % topical ointment RxNorm: 279412 1 Application TOP BID 03/17/2017 08/27/2018 Inactive doxycycline hyclate 100 mg tablet RxNorm: 737811 1 Tablet(s) PO BID 03/09/2017 03/15/2017 Inactive Take probiotic BID while on ABT doxycycline hyclate 100 mg tablet RxNorm: 903126 1 Tablet(s) PO BID 03/09/2017 03/08/2017 Inactive Take probiotic BID while on ABT meloxicam 15 mg tablet RxNorm: 329720 TAKE ONE TABLET BY MOUTH DAILY 02/10/2017 12/06/2017 Inactive Vitamin D3 5,000 unit tablet RxNorm: 721123 TAKE ONE TABLET BY MOUTH DAILY 02/08/2017 07/31/2017 Inactive Vitamin B-12 1,000 mcg/mL injection solution RxNorm: 797169 INJECT 1ML MONTHLY 01/24/2017 07/22/2017 Inactive lisinopril 20 mg tablet RxNorm: 781755 TAKE ONE TABLET BY MOUTH DAILY 12/13/2016 04/11/2017 Inactive trazodone 50 mg tablet RxNorm: 471803 TAKE ONE TABLET BY MOUTH AT BEDTIME 09/24/2016 03/22/2017 Inactive Vitamin D3 5,000 unit tablet RxNorm: 356591 TAKE ONE TABLET BY MOUTH DAILY 09/20/2016 02/07/2017 Inactive lisinopril 20 mg tablet RxNorm: 501292 TAKE ONE TABLET BY MOUTH DAILY 09/13/2016 12/12/2016 Inactive ketoconazole 2 % topical cream RxNorm: 602157 1 Application TOP BID 08/17/2016 08/30/2016 Inactive deliver to [facility] please Pepcid 20 mg tablet RxNorm: 201206 TAKE ONE TABLET BY MOUTH TWICE A DAY 07/12/2016 12/26/2017 Inactive omega-3 acid ethyl esters 1 gram capsule RxNorm: 846271 3 Capsule(s) PO daily 06/18/2016 12/14/2016 Inactive omega-3 acid ethyl esters 1 gram capsule RxNorm: 948454 3 Capsule(s) PO daily 06/18/2016 06/17/2016 Inactive trazodone 50 mg tablet RxNorm: 809800 TAKE ONE TABLET BY MOUTH AT BEDTIME 06/08/2016 08/06/2016 Inactive tamsulosin 0.4 mg capsule RxNorm: 694144 Capsule(s) TAKE ONE CAPSULE BY MOUTH EVERY EVENING 06/04/2016 12/30/2016 Inactive hydrochlorothiazide 25 mg tablet RxNorm: 749950 TAKE ONE TABLET BY MOUTH DAILY 05/10/2016 05/09/2016 Inactive hydrochlorothiazide 25 mg tablet RxNorm: 705116 TAKE ONE TABLET BY MOUTH DAILY 05/10/2016 02/12/2018 Inactive Pepcid 20 mg tablet RxNorm: 459325 1 Tablet(s) PO BID 03/18/2016 03/17/2016 Inactive Pepcid 20 mg tablet RxNorm: 791422 1 Tablet(s) PO BID 03/18/2016 07/11/2016 Inactive lisinopril 20 mg tablet RxNorm: 462708 TAKE ONE TABLET BY MOUTH DAILY 03/18/2016 08/14/2016 Inactive Vitamin D3 5,000 unit tablet RxNorm: 207076 Tablet(s) TAKE ONE TABLET BY MOUTH DAILY 03/18/2016 09/13/2016 Inactive trazodone 50 mg tablet RxNorm: 426126 TAKE ONE TABLET BY MOUTH AT BEDTIME 03/15/2016 06/07/2016 Inactive Vesicare 10 mg tablet RxNorm: 439807 1 Tablet(s) PO QHS 03/15/2016 02/07/2017 Inactive meloxicam 15 mg tablet RxNorm: 847678 TAKE ONE TABLET BY MOUTH DAILY 03/01/2016 01/24/2017 Inactive Bactrim DS 800 mg-160 mg tablet RxNorm: 411503 1 Tablet(s) PO BID 02/10/2016 02/09/2016 Inactive Bactrim DS 800 mg-160 mg tablet RxNorm: 436650 1 Tablet(s) PO BID 02/10/2016 02/16/2016 Inactive Cipro 500 mg tablet RxNorm: 288212 1 Tablet(s) PO BID 02/06/2016 02/09/2016 Inactive Cipro 500 mg tablet RxNorm: 369767 1 Tablet(s) PO BID 02/06/2016 02/05/2016 Inactive Pennsaid 20 mg/gram/actuation (2 %) topical soln in metered- dose pump RxNorm: 4546934 2 pumps TOP BID 01/19/2016 04/19/2016 Inactive tamsulosin 0.4 mg capsule RxNorm: 913791 TAKE ONE CAPSULE BY MOUTH EVERY EVENING 01/12/2016 06/03/2016 Inactive cyanocobalamin (vit B-12) 1,000 mcg/mL injection solution RxNorm: 377214 INJECT 1 ML INTRAMUSCULARLY MONTHLY 01/01/2016 10/26/2016 Inactive Request already responded to by other means (e.g. phone or fax) Vitamin B-12 1,000 mcg/mL injection solution RxNorm: 520787 1 Milliliter(s) Inj monthly 12/24/2015 04/19/2016 Inactive please give syringes for injections Vitamin D3 5,000 unit tablet RxNorm: 305180 TAKE ONE TABLET BY MOUTH DAILY 12/08/2015 03/06/2016 Inactive pantoprazole 40 mg tablet,delayed release RxNorm: 884272 TAKE ONE TABLET BY MOUTH DAILY 12/08/2015 03/17/2016 Inactive trazodone 50 mg tablet RxNorm: 795719 TAKE ONE TABLET BY MOUTH AT BEDTIME 11/10/2015 03/08/2016 Inactive lisinopril 20 mg tablet RxNorm: 145768 TAKE ONE TABLET BY MOUTH DAILY 09/08/2015 03/05/2016 Inactive Vitamin D3 5,000 unit tablet RxNorm: 523161 1 Tablet(s) PO daily 08/12/2015 12/07/2015 Inactive pantoprazole 40 mg tablet,delayed release RxNorm: 675402 1 Tablet(s) PO daily 08/12/2015 12/07/2015 Inactive tamsulosin 0.4 mg capsule RxNorm: 053586 TAKE ONE CAPSULE BY MOUTH EVERY EVENING 07/21/2015 12/17/2015 Inactive trazodone 50 mg tablet RxNorm: 053730 TAKE ONE TABLET BY MOUTH AT BEDTIME 05/09/2015 10/05/2015 Inactive hydrochlorothiazide 25 mg tablet RxNorm: 454464 1 Tablet(s) PO QAM 04/30/2015 04/29/2015 Inactive hydrochlorothiazide 25 mg tablet RxNorm: 287540 TAKE ONE TABLET BY MOUTH DAILY 04/30/2015 02/12/2018 Inactive pantoprazole 40 mg tablet,delayed release RxNorm: 904894 1 Tablet(s) PO daily 04/16/2015 08/11/2015 Inactive meloxicam 15 mg tablet RxNorm: 080314 TAKE ONE TABLET BY MOUTH DAILY 03/03/2015 02/25/2016 Inactive lisinopril 20 mg tablet RxNorm: 289082 1 Tablet(s) PO daily 02/19/2015 09/07/2015 Inactive tamsulosin 0.4 mg capsule RxNorm: 438634 TAKE ONE CAPSULE BY MOUTH EVERY EVENING 01/20/2015 07/18/2015 Inactive cyanocobalamin (vit B-12) 1,000 mcg/mL injection solution RxNorm: 051562 Milliliter(s) INJECT 1ML INTRAMUSCULARLY MONTHLY 12/12/2014 12/22/2014 Inactive trazodone 50 mg tablet RxNorm: 593772 TAKE ONE TABLET BY MOUTH AT BEDTIME 11/14/2014 05/08/2015 Inactive erythromycin 5 mg/gram (0.5 %) eye ointment RxNorm: 770425 1/2 inch OPH QID 11/05/2014 11/14/2014 Inactive acyclovir 800 mg tablet RxNorm: 435988 1 Tablet(s) PO TID 11/05/2014 11/18/2014 Inactive Zofran 4 mg tablet RxNorm: 161881 1 Tablet(s) PO Q4H as needed nausea 11/05/2014 01/03/2015 Inactive Duragesic 12 mcg/hr transdermal patch RxNorm: 868917 1 Patch TD Q72H 11/05/2014 02/04/2015 Inactive Imitrex 100 mg tablet RxNorm: 385085 1 Tablet(s) PO q 12 hours 11/04/2014 04/15/2015 Inactive naproxen 500 mg tablet RxNorm: 060694 1 Tablet(s) PO BID 10/30/2014 11/01/2014 Inactive meloxicam 15 mg tablet RxNorm: 248452 TAKE ONE TABLET BY MOUTH DAILY 10/04/2014 03/02/2015 Inactive Vesicare 5 mg tablet RxNorm: 098582 TAKE ONE TABLET BY MOUTH AT BEDTIME 09/16/2014 07/16/2015 Inactive Vitamin D2 50,000 unit capsule RxNorm: 227773 1 Capsule(s) PO QW 09/06/2014 07/16/2015 Inactive once weekly x 12 weeks tamsulosin ER 0.4 mg capsule,extended release 24 hr RxNorm: 771056 TAKE ONE CAPSULE BY MOUTH EVERY EVENING 06/24/2014 12/20/2014 Inactive tamsulosin ER 0.4 mg capsule,extended release 24 hr RxNorm: 937284 1 Capsule(s) PO QPM 06/24/2014 01/19/2015 Inactive Vitamin D2 50,000 unit capsule RxNorm: 915556 1 Capsule(s) PO QW 05/27/2014 09/05/2014 Inactive once weekly x 12 weeks Vesicare 5 mg tablet RxNorm: 572532 1 Tablet(s) PO QHS 05/23/2014 05/22/2014 Inactive Vesicare 5 mg tablet RxNorm: 553266 1 Tablet(s) PO QHS 05/23/2014 09/15/2014 Inactive trazodone 50 mg tablet RxNorm: 969939 TAKE ONE TABLET BY MOUTH AT BEDTIME 05/13/2014 11/08/2014 Inactive trazodone 50 mg tablet RxNorm: 666299 TAKE ONE TABLET BY MOUTH AT BEDTIME 05/13/2014 11/08/2014 Inactive hydrochlorothiazide 25 mg tablet RxNorm: 293993 1 Tablet(s) PO QAM 04/18/2014 01/12/2015 Inactive Vitamin D2 50,000 unit capsule RxNorm: 781105 TAKE ONE CAPSULE BY MOUTH ONCE WEEKLY FOR 12 WEEKS 04/09/2014 05/14/2014 Inactive trazodone 50 mg tablet RxNorm: 196848 1 Tablet(s) PO QHS 02/22/2014 05/12/2014 Inactive trazodone 50 mg tablet RxNorm: 043033 1 Tablet(s) PO QHS 02/22/2014 02/21/2014 Inactive Vitamin D2 50,000 unit capsule RxNorm: 847127 TAKE ONE CAPSULE BY MOUTH ONCE WEEKLY FOR 12 WEEKS 02/07/2014 03/06/2014 Inactive meloxicam 15 mg tablet RxNorm: 995924 TAKE ONE TABLET BY MOUTH ONCE A DAY 02/07/2014 08/05/2014 Inactive meloxicam 15 mg tablet RxNorm: 211183 TAKE ONE TABLET BY MOUTH ONCE A DAY 02/07/2014 2014 Inactive clotrimazole 1 % topical cream RxNorm: 206742 1 Application TOP BID 12/25/2013 07/16/2015 Inactive Diflucan 150 mg tablet RxNorm: 250922 1 Tablet(s) PO daily 12/25/2013 12/31/2013 Inactive tamsulosin ER 0.4 mg capsule,extended release 24 hr RxNorm: 970054 1 Capsule(s) PO QPM 11/28/2013 06/23/2014 Inactive cyanocobalamin (vit B-12) 1,000 mcg/mL injection solution RxNorm: 326443 1 Milliliter(s) Inj 11/28/2013 12/12/2014 Inactive Vitamin B-12 1,000 mcg/mL injection solution RxNorm: 523279 1 Milliliter(s) Inj monthly 11/21/2013 02/13/2015 Inactive please give syringes for injections Vitamin D2 50,000 unit capsule RxNorm: 710220 1 Capsule(s) PO QW x 12 weeks 11/21/2013 02/06/2014 Inactive [SAVINGS FOR UNINSURED PATIENTS -- to take addtional 2000 units daily Vitamin B-12 1,000 mcg/mL injection solution RxNorm: 251312 1 Milliliter(s) Inj monthly 11/21/2013 11/20/2013 Inactive meloxicam 15 mg tablet RxNorm: 303093 1 Tablet(s) PO daily 11/20/2013 11/19/2013 Inactive [SAVINGS FOR UNINSURED PATIENTS -- BIN:[id number], PCN: [id number], Group: [id number], ID# [id number], Process claim through [employer], for questions: . THIS IS NOT INSURANCE.] meloxicam 15 mg tablet RxNorm: 189461 1 Tablet(s) PO daily 11/20/2013 02/06/2014 Inactive [SAVINGS FOR UNINSURED PATIENTS -- BIN:[id number], PCN: [id number], Group: [id number], ID# [id number], Process claim through [employer], for questions: . THIS IS NOT INSURANCE.] meloxicam 15 mg tablet RxNorm: 489462 1 Tablet(s) PO daily 11/20/2013 11/19/2013 Inactive Voltaren 1 % topical gel RxNorm: 804614 4 Application TOP QID apply to back, affected joints four times daily 11/14/2013 11/20/2013 Inactive Iron (ferrous sulfate) 325 mg (65 mg iron) tablet RxNorm: 514593 1 Tablet(s) PO daily No Start Date Active trazodone 50 mg tablet RxNorm: 452606 1 Tablet(s) PO QHS No Start Date Active Vitamin D2 50,000 unit capsule RxNorm: 131158 1 Capsule(s) PO QW No Start Date 05/26/2014 Inactive once weekly x 12 weeks Zithromax Z-Brian 250 mg tablet RxNorm: 384114 1 Tablet(s) PO UD No Start Date 02/06/2018 Inactive Vitamin D2 50,000 unit capsule RxNorm: 560826 1 Capsule(s) PO QW No Start Date 11/20/2013 Inactive gabapentin 300 mg capsule RxNorm: 076772 1 Capsule(s) PO TID No Start Date 03/28/2017 Inactive Vesicare 10 mg tablet RxNorm: 617278 1 Tablet(s) PO QHS No Start Date 03/14/2016 Inactive Toprol XL 25 mg tablet,extended release RxNorm: 113444 1 Tablet(s) PO daily No Start Date 04/19/2018 Inactive Vitamin D3 5,000 unit tablet RxNorm: 881905 1 Tablet(s) PO daily No Start Date 08/11/2015 Inactive Celebrex 200 mg capsule RxNorm: 922386 1 Capsule(s) PO BID No Start Date 07/19/2016 Inactive Imitrex 50 mg tablet RxNorm: 511259 1 Tablet(s) PO now and may repeat up to four times in 24 hours No Start Date 11/03/2014 Inactive Zofran 4 mg tablet RxNorm: 396866 1 Tablet(s) PO Q8 as needed nausea and vomitting No Start Date 10/15/2015 Inactive ranitidine 150 mg tablet RxNorm: 739308 1 Tablet(s) PO BID No Start Date 02/12/2018 Inactive Phenergan 25 mg tablet RxNorm: 725841 1 Tablet(s) PO now No Start Date 04/15/2015 Inactive Tums oral RxNorm: 778594 oral No Start Date 10/15/2015 Inactive Medication Administered Medication Codes Instructions Start Date Status Kenalog 40 mg/mL suspension for injection RxNorm: 9716137 Milliliter 08/28/2018 No longer Active Kenalog 40 mg/mL suspension for injection RxNorm: 9839283 1Milliliter 09/07/2017 No longer Active cyanocobalamin (vit B-12) 1,000 mcg/mL injection solution RxNorm: 524826 1Milliliter 11/28/2013 No longer Active Immunizations Vaccine Codes Date Status Influenza CVX: 141 04/06/2017 completed PPD Unknown 07/03/2015 completed Zoster CVX: 121 11/29/2014 completed Influenza CVX: 141 03/26/2013 completed Assessments Condition Codes Effective Dates Other acute sinusitis ICD-10: J01.80 ICD-9: 461.8 11/09/2018 Other allergic rhinitis ICD-10: J30.89 ICD-9: 477.8 11/09/2018 Rash and other nonspecific skin eruption ICD-10: R21 ICD-9: 782.1 09/04/2018 Other pruritus ICD-10: L29.8 ICD-9: 698.9 08/28/2018 Muscle weakness (generalized) ICD-10: M62.81 ICD-9: 728.87 08/21/2018 Pain in right shoulder ICD-10: M25.511 ICD-9: 719.41 08/21/2018 Essential (primary) hypertension ICD-10: I10 ICD-9: 401.9 08/21/2018 Tinea barbae and tinea capitis ICD-10: B35.0 ICD-9: 110.0 06/27/2018 Pain in left shoulder ICD-10: M25.512 ICD-9: 719.41 04/20/2018 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 04/20/2018 Foot drop, right foot ICD-10: M21.371 ICD-9: 736.79 03/21/2018 Acute bronchitis due to other specified organisms ICD-10: J20.8 ICD-9: 466.0 02/08/2018 Encounter for general adult medical examination with abnormal findings ICD-10: Z00.01 ICD-9: V70.0 12/27/2017 Obesity, unspecified ICD-10: E66.9 ICD-9: 278.00 11/01/2017 Localized edema ICD-10: R60.0 ICD-9: 782.3 06/07/2017 Cellulitis of left lower limb ICD-10: L03.116 ICD-9: 682.7 06/07/2017 Tinea pedis ICD-10: B35.3 ICD-9: 110.4 05/19/2017 Body mass index (BMI) 36.0-36.9, adult ICD-10: Z68.36 ICD-9: V85.36 02/17/2017 Family history of ischemic heart disease and other diseases of the circulatory system ICD-10: Z82.49 ICD-9: V19.8 02/17/2017 Other obesity due to excess calories ICD-10: E66.09 ICD-9: 278.00 01/19/2016 Other abnormal glucose ICD-10: R73.09 ICD-9: 790.29 04/16/2015 Gastro-esophageal reflux disease without esophagitis ICD-10: K21.9 ICD-9: 530.81 04/16/2015 Post-polio limb muscle weakness ICD-9: 728.87 02/19/2015 OBESITY ICD-9: 278.00 02/19/2015 ESSENTIAL HYPERTENSION ICD-9: 401.9 02/19/2015 Shingles outbreak ICD-9: 053.9 11/20/2014 Earache ICD-9: 388.70 11/20/2014 Pain, eye, right ICD-9: 379.91 11/05/2014 Face pain ICD-9: 784.0 11/05/2014 Leg weakness ICD-9: 729.89 09/19/2014 Weakness ICD-9: 780.79 09/19/2014 Foot drop ICD-9: 736.79 09/19/2014 Post-polio syndrome ICD-9: 138 09/19/2014 Seborrheic dermatitis ICD-9: 690.10 07/24/2014 Carotid bruit ICD-9: 785.9 07/24/2014 Vitamin D deficiency ICD-9: 268.9 07/24/2014 Nocturia ICD-9: 788.43 05/23/2014 Elevated blood sugar ICD-9: 790.29 05/23/2014 Vitamin B12 deficiency ICD-9: 266.2 05/23/2014 Neck pain ICD-9: 723.1 05/23/2014 EDEMA ICD-9: 782.3 04/18/2014 Nocturnal hypoxemia ICD-9: 799.02 02/21/2014 Insomnia ICD-9: 780.52 02/21/2014 Tinea pedis ICD-9: 110.4 12/25/2013 Vitamin B12 deficiency (dietary) anemia ICD-9: 281.1 11/28/2013 Arrhythmia ICD-9: 427.9 11/14/2013 Reason For Visit Reason For Visit Effective Dates Notes cough 11/09/2018 rash 09/04/2018 rash 08/28/2018 hypertension 08/21/2018 rash 06/27/2018 shoulder pain 04/20/2018 left leg gait abnormality 03/21/2018 sinus congestion 02/08/2018 Annual Medicare Wellness Exam 12/27/2017 shoulder pain 12/06/2017 left leg hypertension 09/07/2017 hypertension 06/07/2017 left top of foot hypertension 05/19/2017 left top of foot flare up of rash 05/09/2017 left top of foot flare up of rash 04/25/2017 rash 2017 foot ulcer 03/29/2017 foot ulcer 03/17/2017 foot ulcer 03/08/2017 hypertension 02/17/2017 hypertension 01/18/2017 hypertension 10/19/2016 Hospital Follow Up 08/17/2016 left shoulder surgery hypertension 07/20/2016 hypertension 04/19/2016 hypertension 01/19/2016 hypertension 10/16/2015 hypertension 07/17/2015 hypertension 04/16/2015 headache 02/19/2015 headache 11/20/2014 Hospital Follow Up 11/05/2014 ~generic 09/19/2014 abdominal pain 07/24/2014 lt. side cataract 05/23/2014 Pt states he recently went to an eye doctor in [place]. Reports that he did have hemorrhaging in his right eye which is getting better. headache 04/18/2014 Pt states he recently went to an eye doctor in [place] shortness of breath 02/21/2014 blisters 12/25/2013 insomnia 11/28/2013 back pain 11/14/2013 Results Observation Observation Code Item Item Code Result Date Vitamin D 25 Oh [id number] VITAMIN D, 25 HYDROXY 66.80 ng/mL 03/14/2018 Cbc With Differential Ord2 WBC 5.63 K/ul 03/14/2018 Cbc With Differential Ord2 RBC 4.53 M/ul 03/14/2018 Cbc With Differential Ord2 HGB 12.9 g/dl 03/14/2018 Cbc With Differential Ord2 HCT 40.6 % 03/14/2018 Cbc With Differential Ord2 Neut% 66.1 % 03/14/2018 Cbc With Differential Ord2 MCV 89.6 fl 03/14/2018 Cbc With Differential Ord2 Lymph% 22.7 % 03/14/2018 Cbc With Differential Ord2 MCH 28.5 pg 03/14/2018 Cbc With Differential Ord2 [place]% 7.6 % 03/14/2018 Cbc With Differential Ord2 MCHC 31.8 pg 03/14/2018 Cbc With Differential Ord2 Eos% 3.4 % 03/14/2018 Cbc With Differential Ord2 PLT 169 K/ul 03/14/2018 Cbc With Differential Ord2 Baso% 0.2 % 03/14/2018 Cbc With Differential Ord2 RDW 14.9 % 03/14/2018 Cbc With Differential Ord2 Neut ABS# 3.72 K/ul 03/14/2018 Cbc With Differential Ord2 Lymph ABS# 1.28 K/ul 03/14/2018 Cbc With Differential Ord2 [place] ABS# 0.4 K/ul 03/14/2018 Cbc With Differential Ord2 Eos ABS# 0.2 K/ul 03/14/2018 Cbc With Differential Ord2 Baso ABS# 0.0 K/ul 03/14/2018 Total Psa Ord10 PSA 3.08 ng/mL 09/12/2017 Metabolic Ord15 NA 138 mEq/L 09/12/2017 Metabolic Ord15 K 4.2 mEq/L 09/12/2017 Metabolic Ord15 CL 101 mEq/L 09/12/2017 Metabolic Ord15 CO2 31.0 mEq/L 09/12/2017 Metabolic Ord15 GLUCOSE 113 mg/dL 09/12/2017 Metabolic Ord15 BUN 20 mg/dL 09/12/2017 Metabolic Ord15 Creat 0.8 mg/dL 09/12/2017 Metabolic Ord15 B/C Ratio 24.7 Ratio 09/12/2017 Metabolic Ord15 eGFR 100 ml/min/1.73m2 09/12/2017 Metabolic Ord15 Osmo 279 mOsmo 09/12/2017 Metabolic Ord15 ANION GAP 10 09/12/2017 Metabolic Ord15 CALCIUM 9.1 mg/dL 09/12/2017 Lipid Ord30 CHOL 184 mg/dL 06/27/2017 Lipid Ord30 HDL 37.0 mg/dl 06/27/2017 Lipid Ord30 TRIG 186 mg/dL 06/27/2017 Lipid Ord30 LDL 110 mg/dL 06/27/2017 Lipid Ord30 C/HDL 5.0 Ratio 06/27/2017 %Hba1C Sjg437 % HbA1c 63060- 6 6.2 % 06/27/2017 %Hba1C Tpx323 Gluc Ave 131 mg/dL 06/27/2017 Comp Metabolic Bnf899 NA 140 mEq/L 06/27/2017 Comp Metabolic Qtk959 K 4.2 mEq/L 06/27/2017 Comp Metabolic Qpr694 CL 100 mEq/L 06/27/2017 Comp Metabolic Qzi765 CO2 32.0 mEq/L 06/27/2017 Comp Metabolic Abd636 ANION GAP 12 06/27/2017 Comp Metabolic Zgk484 GLUCOSE 118 mg/dL 06/27/2017 Comp Metabolic Hah723 Creat 1.0 mg/dL 06/27/2017 Comp Metabolic Enn517 eGFR 82 ml/min/1.73m2 06/27/2017 Comp Metabolic Mzi155 BUN 26 mg/dL 06/27/2017 Comp Metabolic Xxs574 B/C Ratio 27.1 Ratio 06/27/2017 Comp Metabolic Hld570 CALCIUM 9.6 mg/dL 06/27/2017 Comp Metabolic Iqm085 ALK PHOS 46 U/L 06/27/2017 Comp Metabolic Qnc167 AST(SGOT) 23 U/L 06/27/2017 Comp Metabolic Rrb793 ALT(SGPT) 31 U/L 06/27/2017 Comp Metabolic Hro344 BILI T 0.5 mg/dL 06/27/2017 Comp Metabolic Gok459 ALBUMIN 4.2 g/dL 06/27/2017 Comp Metabolic Dab276 TPRO 6.6 g/dL 06/27/2017 Comp Metabolic Jpf565 GLOB 2.4 g/dL 06/27/2017 Comp Metabolic Kdf128 A/G Ratio 1.7 Ratio 06/27/2017 Comp Metabolic Snv836 Osmo 285 mOsmo 06/27/2017 Cbc With Differential Ord2 WBC 4.54 K/ul 10/20/2016 Cbc With Differential Ord2 RBC 4.52 M/ul 10/20/2016 Cbc With Differential Ord2 HGB 13.1 g/dl 10/20/2016 Cbc With Differential Ord2 HCT 40.5 % 10/20/2016 Cbc With Differential Ord2 Neut% 56.9 % 10/20/2016 Cbc With Differential Ord2 MCV 89.6 fl 10/20/2016 Cbc With Differential Ord2 Lymph% 29.3 % 10/20/2016 Cbc With Differential Ord2 MCH 29.0 pg 10/20/2016 Cbc With Differential Ord2 [place]% 9.0 % 10/20/2016 Cbc With Differential Ord2 MCHC 32.3 pg 10/20/2016 Cbc With Differential Ord2 Eos% 4.4 % 10/20/2016 Cbc With Differential Ord2 PLT 156 K/ul 10/20/2016 Cbc With Differential Ord2 Baso% 0.4 % 10/20/2016 Cbc With Differential Ord2 RDW 14.4 % 10/20/2016 Cbc With Differential Ord2 Neut ABS# 2.58 K/ul 10/20/2016 Cbc With Differential Ord2 Lymph ABS# 1.33 K/ul 10/20/2016 Cbc With Differential Ord2 [place] ABS# 0.4 K/ul 10/20/2016 Cbc With Differential Ord2 Eos ABS# 0.2 K/ul 10/20/2016 Cbc With Differential Ord2 Baso ABS# 0.0 K/ul 10/20/2016 Comp Metabolic Hwg796 NA 143 mEq/L 10/20/2016 Comp Metabolic Aho370 K 4.6 mEq/L 10/20/2016 Comp Metabolic Mjb330 CL 104 mEq/L 10/20/2016 Comp Metabolic Kuu684 CO2 31.0 mEq/L 10/20/2016 Comp Metabolic Ytp212 ANION GAP 13 10/20/2016 Comp Metabolic Pzn047 GLUCOSE 117 mg/dL 10/20/2016 Comp Metabolic Lck955 Creat 1.1 mg/dL 10/20/2016 Comp Metabolic Yvm730 eGFR 74 ml/min/1.73m2 10/20/2016 Comp Metabolic Qgh522 BUN 27 mg/dL 10/20/2016 Comp Metabolic Rpd498 B/C Ratio 25.7 Ratio 10/20/2016 Comp Metabolic Cpj077 CALCIUM 9.3 mg/dL 10/20/2016 Comp Metabolic Wxe861 ALK PHOS 47 U/L 10/20/2016 Comp Metabolic Gge624 AST(SGOT) 18 U/L 10/20/2016 Comp Metabolic Veu971 ALT(SGPT) 22 U/L 10/20/2016 Comp Metabolic Jlv326 BILI T 0.5 mg/dL 10/20/2016 Comp Metabolic Ieq332 ALBUMIN 3.9 g/dL 10/20/2016 Comp Metabolic Tta400 TPRO 6.5 g/dL 10/20/2016 Comp Metabolic Hfb623 GLOB 2.6 g/dL 10/20/2016 Comp Metabolic Aou866 A/G Ratio 1.5 Ratio 10/20/2016 Comp Metabolic Qbh119 Osmo 291 mOsmo 10/20/2016 Tsh Ord6 hTSH II 1.56 uIU/mL 10/20/2016 Lipid Ord30 CHOL 153 mg/dL 10/20/2016 Lipid Ord30 HDL 34.0 mg/dl 10/20/2016 Lipid Ord30 TRIG 123 mg/dL 10/20/2016 Lipid Ord30 LDL 94 mg/dL 10/20/2016 Lipid Ord30 C/HDL 4.5 Ratio 10/20/2016 B12 Dph523 B12 544.00 pg/ml 10/20/2016 Comp Metabolic Yfn588 NA 138 mEq/L 05/13/2016 Comp Metabolic Ojl261 K 4.2 mEq/L 05/13/2016 Comp Metabolic Dyx530 CL 102 mEq/L 05/13/2016 Comp Metabolic Oau562 CO2 30.0 mEq/L 05/13/2016 Comp Metabolic Oup865 ANION GAP 10 05/13/2016 Comp Metabolic Vik149 GLUCOSE 113 mg/dL 05/13/2016 Comp Metabolic Gpc204 Creat 1.0 mg/dL 05/13/2016 Comp Metabolic Lic817 eGFR 77 ml/min/1.73m2 05/13/2016 Comp Metabolic Gvg544 BUN 26 mg/dL 05/13/2016 Comp Metabolic Xwh372 B/C Ratio 25.5 Ratio 05/13/2016 Comp Metabolic Zow283 CALCIUM 9.7 mg/dL 05/13/2016 Comp Metabolic Xfk426 ALK PHOS 51 U/L 05/13/2016 Comp Metabolic Wdf681 AST(SGOT) 17 U/L 05/13/2016 Comp Metabolic Vcb654 ALT(SGPT) 20 U/L 05/13/2016 Comp Metabolic Der745 BILI T 0.6 mg/dL 05/13/2016 Comp Metabolic Lfe461 ALBUMIN 4.0 g/dL 05/13/2016 Comp Metabolic Ufu622 TPRO 6.6 g/dL 05/13/2016 Comp Metabolic Suk266 GLOB 2.6 g/dL 05/13/2016 Comp Metabolic Tto789 A/G Ratio 1.6 Ratio 05/13/2016 Comp Metabolic Vxr600 Osmo 281 mOsmo 05/13/2016 Lipid Ord30 CHOL 172 mg/dL 05/13/2016 Lipid Ord30 HDL 31.0 mg/dl 05/13/2016 Lipid Ord30 TRIG 141 mg/dL 05/13/2016 Lipid Ord30 LDL 113 mg/dL 05/13/2016 Lipid Ord30 C/HDL 5.5 Ratio 05/13/2016 Cbc With Differential Ord2 WBC 4.67 K/ul 02/11/2016 Cbc With Differential Ord2 RBC 4.44 M/ul 02/11/2016 Cbc With Differential Ord2 HGB 13.0 g/dl 02/11/2016 Cbc With Differential Ord2 HCT 39.5 % 02/11/2016 Cbc With Differential Ord2 Neut% 63.8 % 02/11/2016 Cbc With Differential Ord2 MCV 89.0 fl 02/11/2016 Cbc With Differential Ord2 Lymph% 25.3 % 02/11/2016 Cbc With Differential Ord2 MCH 29.3 pg 02/11/2016 Cbc With Differential Ord2 [place]% 7.7 % 02/11/2016 Cbc With Differential Ord2 MCHC 32.9 pg 02/11/2016 Cbc With Differential Ord2 Eos% 3.0 % 02/11/2016 Cbc With Differential Ord2 PLT 161 K/ul 02/11/2016 Cbc With Differential Ord2 Baso% 0.2 % 02/11/2016 Cbc With Differential Ord2 RDW 14.3 % 02/11/2016 Cbc With Differential Ord2 Neut ABS# 2.98 K/ul 02/11/2016 Cbc With Differential Ord2 Lymph ABS# 1.18 K/ul 02/11/2016 Cbc With Differential Ord2 [place] ABS# 0.4 K/ul 02/11/2016 Cbc With Differential Ord2 Eos ABS# 0.1 K/ul 02/11/2016 Cbc With Differential Ord2 Baso ABS# 0.0 K/ul 02/11/2016 Comp Metabolic Vid531 NA 138 mEq/L 02/11/2016 Comp Metabolic Mhc875 K 4.0 mEq/L 02/11/2016 Comp Metabolic Dhf285 CL 97 mEq/L 02/11/2016 Comp Metabolic Rla895 CO2 32.0 mEq/L 02/11/2016 Comp Metabolic Rpg612 ANION GAP 13 02/11/2016 Comp Metabolic Mid861 GLUCOSE 117 mg/dL 02/11/2016 Comp Metabolic Dee786 Creat 1.0 mg/dL 02/11/2016 Comp Metabolic Kzj120 eGFR 81 ml/min/1.73m2 02/11/2016 Comp Metabolic Bac618 BUN 21 mg/dL 02/11/2016 Comp Metabolic Uhg414 B/C Ratio 21.4 Ratio 02/11/2016 Comp Metabolic Ion825 CALCIUM 9.2 mg/dL 02/11/2016 Comp Metabolic Bpc017 ALK PHOS 48 U/L 02/11/2016 Comp Metabolic Kzr859 AST(SGOT) 18 U/L 02/11/2016 Comp Metabolic Njp914 ALT(SGPT) 22 U/L 02/11/2016 Comp Metabolic Vkk683 BILI T 0.5 mg/dL 02/11/2016 Comp Metabolic Mbt533 ALBUMIN 3.9 g/dL 02/11/2016 Comp Metabolic Gby314 TPRO 6.3 g/dL 02/11/2016 Comp Metabolic Bjz651 GLOB 2.5 g/dL 02/11/2016 Comp Metabolic Xtx471 A/G Ratio 1.6 Ratio 02/11/2016 Comp Metabolic Laq352 Osmo 280 mOsmo 02/11/2016 Lipid Ord30 CHOL 163 mg/dL 02/11/2016 Lipid Ord30 HDL 35.0 mg/dl 02/11/2016 Lipid Ord30 TRIG 200 mg/dL 02/11/2016 Lipid Ord30 LDL 88 mg/dL 02/11/2016 Lipid Ord30 C/HDL 4.7 Ratio 02/11/2016 %Hba1C Ecq416 % HbA1c 12201- 6 6.5 % 02/11/2016 %Hba1C Lka156 Gluc Ave 140 mg/dL 02/11/2016 Tsh Ord6 hTSH II 2.07 uIU/mL 02/11/2016 B12 Uus850 B12 563.00 pg/ml 02/11/2016 Culture Urine [id number] URINE CULTURE SEE NOTES 02/10/2016 Culture Urine [id number] Continued Results 02/10/2016 Urine Culture Ucult Complete >100,000 col/ml aerobic growth sent to ref lab 02/07/2016 Urinalysis Ord28 U-Color Yellow 02/06/2016 Urinalysis Ord28 U-Clarity Slightly Cloudy 02/06/2016 Urinalysis Ord28 U-Gluc Negative 02/06/2016 Urinalysis Ord28 U-Bili Negative 02/06/2016 Urinalysis Ord28 U-Ketone Negative 02/06/2016 Urinalysis Ord28 U-SG 1.025 02/06/2016 Urinalysis Ord28 U-Blood Moderate 02/06/2016 Urinalysis Ord28 U-pH 7.0 02/06/2016 Urinalysis Ord28 U-Protein 100 mg/dL 02/06/2016 Urinalysis Ord28 U-Urobilin 2.0 E.U./dL E.U./dL 02/06/2016 Urinalysis Ord28 U-Nitrites Negative 02/06/2016 Urinalysis Ord28 U-Leuk Moderate 02/06/2016 Urinalysis Ord28 U-Bact 1+ 02/06/2016 Urinalysis Ord28 U-Squamous Epi 5-10 per/HPF 02/06/2016 Urinalysis Ord28 U-Crystal None per/HPF 02/06/2016 Urinalysis Ord28 U-Mucus None 02/06/2016 Urinalysis Ord28 U-Renal tubular epi None 02/06/2016 Urinalysis Ord28 U-RBC 10-20 per/HPF 02/06/2016 Urinalysis Ord28 U-Transitional epi None per/HPF 02/06/2016 Urinalysis Ord28 U-WBC 40-50 per/HPF 02/06/2016 Urinalysis Ord28 U-Cast None per/HPF 02/06/2016 Urinalysis Ord28 U-VOL VOLUME SUFFICIENT (10mL) 02/06/2016 Urinalysis Ord28 U-Yeast NEGATIVE 02/06/2016 Urinalysis Ord28 U-Com Culture to follow 02/06/2016 Urinalysis Ord28 U-Color Yellow 11/04/2015 Urinalysis Ord28 U-Clarity Clear 11/04/2015 Urinalysis Ord28 U-Gluc Negative 11/04/2015 Urinalysis Ord28 U-Bili Negative 11/04/2015 Urinalysis Ord28 U-Ketone Negative 11/04/2015 Urinalysis Ord28 U-SG 1.020 11/04/2015 Urinalysis Ord28 U-Blood Negative 11/04/2015 Urinalysis Ord28 U-pH 7.0 11/04/2015 Urinalysis Ord28 U-Protein Negative 11/04/2015 Urinalysis Ord28 U-Urobilin 1.0 E.U./dL E.U./dL 11/04/2015 Urinalysis Ord28 U-Nitrites Negative 11/04/2015 Urinalysis Ord28 U-Leuk Negative 11/04/2015 Urinalysis Ord28 U-Bact None 11/04/2015 Urinalysis Ord28 U-Squamous Epi None per/HPF 11/04/2015 Urinalysis Ord28 U-Crystal None per/HPF 11/04/2015 Urinalysis Ord28 U-Mucus None 11/04/2015 Urinalysis Ord28 U-Renal tubular epi None 11/04/2015 Urinalysis Ord28 U-RBC None per/HPF 11/04/2015 Urinalysis Ord28 U-Transitional epi None per/HPF 11/04/2015 Urinalysis Ord28 U-WBC None per/HPF 11/04/2015 Urinalysis Ord28 U-Cast None per/HPF 11/04/2015 Urinalysis Ord28 U-VOL VOLUME SUFFICIENT (10mL) 11/04/2015 Urinalysis Ord28 U-Yeast NEGATIVE 11/04/2015 Urinalysis Ord28 U-Com No culture indicated, Urine saved if culture needed (specimen acceptable for 48 hours from collection if refrigerated) 11/04/2015 %Hba1C Lkd198 % HbA1c 83624- 6 6.4 % 04/16/2015 %Hba1C Unk432 Gluc Ave 137 mg/dL 04/16/2015 Tsh Ord6 hTSH II 3.33 uIU/mL 02/07/2015 Comp Metabolic Kse129 NA 136 mEq/L 02/07/2015 Comp Metabolic Jle288 K 3.9 mEq/L 02/07/2015 Comp Metabolic Etn757 CL 98 mEq/L 02/07/2015 Comp Metabolic Xqm204 CO2 31.0 mEq/L 02/07/2015 Comp Metabolic Ycy830 ANION GAP 11 02/07/2015 Comp Metabolic Rry972 GLUCOSE 139 mg/dL 02/07/2015 Comp Metabolic Tvn317 Creat 0.9 mg/dL 02/07/2015 Comp Metabolic Cpz983 eGFR 87 ml/min/1.73m2 02/07/2015 Comp Metabolic Tff766 BUN 20 mg/dL 02/07/2015 Comp Metabolic Noz818 B/C Ratio 21.7 Ratio 02/07/2015 Comp Metabolic Kdt881 CALCIUM 9.7 mg/dL 02/07/2015 Comp Metabolic Arm741 ALK PHOS 55 U/L 02/07/2015 Comp Metabolic Yly078 AST(SGOT) 20 U/L 02/07/2015 Comp Metabolic Rol640 ALT(SGPT) 27 U/L 02/07/2015 Comp Metabolic Jpm743 BILI T 0.5 mg/dL 02/07/2015 Comp Metabolic Tlr619 ALBUMIN 4.3 g/dL 02/07/2015 Comp Metabolic Dci557 TPRO 6.9 g/dL 02/07/2015 Comp Metabolic Aiq910 GLOB 2.6 g/dL 02/07/2015 Comp Metabolic Mls991 A/G Ratio 1.7 Ratio 02/07/2015 Comp Metabolic Hlo411 Osmo 277 mOsmo 02/07/2015 Cbc With Differential Ord2 WBC 6.7 K/uL 02/07/2015 Cbc With Differential Ord2 LYM 1.8 K/uL 02/07/2015 Cbc With Differential Ord2 LYM% 26.4 % 02/07/2015 Cbc With Differential Ord2 NEUT/GRAN 4.6 K/uL 02/07/2015 Cbc With Differential Ord2 NEUT/GRAN % 68.4 % 02/07/2015 Cbc With Differential Ord2 MID 0.3 K/uL 02/07/2015 Cbc With Differential Ord2 MID% 5.2 % 02/07/2015 Cbc With Differential Ord2 RBC 4.84 M/uL 02/07/2015 Cbc With Differential Ord2 HGB 13.8 g/dL 02/07/2015 Cbc With Differential Ord2 HCT 42.7 % 02/07/2015 Cbc With Differential Ord2 MCV 88 fL 02/07/2015 Cbc With Differential Ord2 MCH 29 pg 02/07/2015 Cbc With Differential Ord2 MCHC 32 g/dL 02/07/2015 Cbc With Differential Ord2 PLT 178 K/uL 02/07/2015 Cbc With Differential Ord2 RDW 14.8 % 02/07/2015 A1C HPLC [id number] A1C HPLC 19529-6 6.0 % 05/23/2014 VIT B 12 [id number] VIT B 12 479 PG/ML 05/23/2014 VIT D TOTL [id number] VIT D TOTL 29 NG/ML 05/23/2014 Review of Systems System Result Effective Dates Constitutional recent illness 11/09/2018 Constitutional No chills 11/09/2018 Constitutional No diaphoresis 11/09/2018 Constitutional No fever 11/09/2018 Eyes No eye erythema 11/09/2018 Ears/Nose/Throat/Neck nasal allergies 11/09/2018 Ears/Nose/Throat/Neck nasal discharge 11/09/2018 Ears/Nose/Throat/Neck postnasal drip 11/09/2018 Ears/Nose/Throat/Neck sinus congestion 11/09/2018 Ears/Nose/Throat/Neck No sore throat 11/09/2018 Cardiovascular No chest pain/pressure 11/09/2018 Cardiovascular No dyspnea 11/09/2018 Respiratory No chest congestion 11/09/2018 Respiratory cough 11/09/2018 Respiratory No dyspnea 11/09/2018 Gastrointestinal No abdominal pain 11/09/2018 Gastrointestinal No constipation 11/09/2018 Gastrointestinal No diarrhea 11/09/2018 Gastrointestinal No nausea 11/09/2018 Gastrointestinal No vomiting 11/09/2018 Dermatologic No rash 11/09/2018 Neurologic No alteration of consciousness 11/09/2018 Neurologic No mental status change 11/09/2018 Constitutional No recent illness 09/04/2018 Constitutional No anorexia 09/04/2018 Constitutional No night sweats 09/04/2018 Constitutional No chills 09/04/2018 Constitutional No diaphoresis 09/04/2018 Constitutional fatigue 09/04/2018 Constitutional No fever 09/04/2018 Constitutional No insomnia 09/04/2018 Constitutional No malaise 09/04/2018 Constitutional No weight loss 09/04/2018 Constitutional No weight gain 09/04/2018 Constitutional No recent illness 08/28/2018 Constitutional No anorexia 08/28/2018 Constitutional No night sweats 08/28/2018 Constitutional No chills 08/28/2018 Constitutional No diaphoresis 08/28/2018 Constitutional fatigue 08/28/2018 Constitutional No fever 08/28/2018 Constitutional No insomnia 08/28/2018 Constitutional No malaise 08/28/2018 Constitutional No weight loss 08/28/2018 Constitutional No weight gain 08/28/2018 Constitutional No recent illness 08/21/2018 Constitutional No chills 08/21/2018 Constitutional fatigue 08/21/2018 Constitutional No fever 08/21/2018 Eyes No blindness 08/21/2018 Eyes No vision change 08/21/2018 Ears/Nose/Throat/Neck No nasal allergies 08/21/2018 Ears/Nose/Throat/Neck No nasal discharge 08/21/2018 Ears/Nose/Throat/Neck No postnasal drip 08/21/2018 Ears/Nose/Throat/Neck No sinus congestion 08/21/2018 Cardiovascular No chest pain/pressure 08/21/2018 Respiratory No chest congestion 08/21/2018 Respiratory No cough 08/21/2018 Gastrointestinal No abdominal pain 08/21/2018 Gastrointestinal No constipation 08/21/2018 Musculoskeletal stiffness 08/21/2018 Musculoskeletal arthralgia(s) 08/21/2018 Musculoskeletal back pain 08/21/2018 Musculoskeletal muscle weakness 08/21/2018 Neurologic No alteration of consciousness 08/21/2018 Psychiatric No anxiety 08/21/2018 Psychiatric No depression 08/21/2018 Musculoskeletal shoulder pain 08/21/2018 Constitutional No recent illness 06/27/2018 Constitutional No anorexia 06/27/2018 Constitutional No night sweats 06/27/2018 Constitutional No chills 06/27/2018 Constitutional No diaphoresis 06/27/2018 Constitutional No fatigue 06/27/2018 Constitutional No fever 06/27/2018 Constitutional No insomnia 06/27/2018 Constitutional No malaise 06/27/2018 Constitutional No weight loss 06/27/2018 Constitutional No weight gain 06/27/2018 Musculoskeletal joint complaint 06/27/2018 Dermatologic rash 06/27/2018 Genitourinary/Nephrology No dysuria 06/27/2018 Gastrointestinal No abdominal pain 06/27/2018 Ears/Nose/Throat/Neck No dizziness 06/27/2018 Constitutional No recent illness 04/20/2018 Constitutional No chills 04/20/2018 Constitutional fatigue 04/20/2018 Constitutional No fever 04/20/2018 Eyes No blindness 04/20/2018 Eyes No vision change 04/20/2018 Ears/Nose/Throat/Neck No nasal allergies 04/20/2018 Ears/Nose/Throat/Neck No nasal discharge 04/20/2018 Ears/Nose/Throat/Neck No postnasal drip 04/20/2018 Ears/Nose/Throat/Neck No sinus congestion 04/20/2018 Musculoskeletal stiffness 04/20/2018 Musculoskeletal arthralgia(s) 04/20/2018 Musculoskeletal muscle weakness 04/20/2018 Musculoskeletal back pain 04/20/2018 Musculoskeletal shoulder pain 04/20/2018 Respiratory No chest congestion 04/20/2018 Respiratory No cough 04/20/2018 Gastrointestinal No abdominal pain 04/20/2018 Gastrointestinal No constipation 04/20/2018 Cardiovascular No chest pain/pressure 04/20/2018 Psychiatric No anxiety 04/20/2018 Psychiatric No depression 04/20/2018 Neurologic No alteration of consciousness 04/20/2018 Constitutional No recent illness 03/21/2018 Constitutional No chills 03/21/2018 Constitutional fatigue 03/21/2018 Constitutional No fever 03/21/2018 Eyes No blindness 03/21/2018 Eyes No vision change 03/21/2018 Ears/Nose/Throat/Neck No nasal allergies 03/21/2018 Ears/Nose/Throat/Neck No nasal discharge 03/21/2018 Ears/Nose/Throat/Neck No postnasal drip 03/21/2018 Ears/Nose/Throat/Neck No sinus congestion 03/21/2018 Musculoskeletal stiffness 03/21/2018 Musculoskeletal arthralgia(s) 03/21/2018 Musculoskeletal muscle weakness 03/21/2018 Constitutional recent illness 02/08/2018 Constitutional chills 02/08/2018 Constitutional fever 02/08/2018 Eyes No eye erythema 02/08/2018 Ears/Nose/Throat/Neck nasal allergies 02/08/2018 Ears/Nose/Throat/Neck nasal discharge 02/08/2018 Ears/Nose/Throat/Neck postnasal drip 02/08/2018 Ears/Nose/Throat/Neck sinus congestion 02/08/2018 Cardiovascular No chest pain/pressure 02/08/2018 Respiratory productive sputum 02/08/2018 Respiratory cough 02/08/2018 Respiratory wheezing 02/08/2018 Gastrointestinal No abdominal pain 02/08/2018 Musculoskeletal No joint complaint 02/08/2018 Dermatologic No rash 02/08/2018 Neurologic No alteration of consciousness 02/08/2018 Neurologic No mental status change 02/08/2018 Constitutional No recent illness 12/27/2017 Constitutional No chills 12/27/2017 Constitutional fatigue 12/27/2017 Constitutional No fever 12/27/2017 Eyes No blindness 12/27/2017 Eyes No vision change 12/27/2017 Ears/Nose/Throat/Neck No nasal allergies 12/27/2017 Ears/Nose/Throat/Neck No nasal discharge 12/27/2017 Ears/Nose/Throat/Neck No postnasal drip 12/27/2017 Ears/Nose/Throat/Neck No sinus congestion 12/27/2017 Cardiovascular No chest pain/pressure 12/27/2017 Cardiovascular No edema 12/27/2017 Cardiovascular exercise intolerance 12/27/2017 Respiratory No chest congestion 12/27/2017 Respiratory No cough 12/27/2017 Gastrointestinal No abdominal pain 12/27/2017 Gastrointestinal No constipation 12/27/2017 Gastrointestinal No diarrhea 12/27/2017 Gastrointestinal No gastroesophageal reflux 12/27/2017 Gastrointestinal No nausea 12/27/2017 Gastrointestinal No vomiting 12/27/2017 Musculoskeletal stiffness 12/27/2017 Musculoskeletal arthralgia(s) 12/27/2017 Musculoskeletal back pain 12/27/2017 Musculoskeletal muscle weakness 12/27/2017 Musculoskeletal myalgias 12/27/2017 Musculoskeletal shoulder pain 12/27/2017 Neurologic No alteration of consciousness 12/27/2017 Neurologic No mental status change 12/27/2017 Psychiatric No anxiety 12/27/2017 Psychiatric No depression 12/27/2017 Constitutional No recent illness 12/06/2017 Constitutional No chills 12/06/2017 Constitutional fatigue 12/06/2017 Constitutional No fever 12/06/2017 Eyes No blindness 12/06/2017 Eyes No vision change 12/06/2017 Ears/Nose/Throat/Neck No nasal allergies 12/06/2017 Ears/Nose/Throat/Neck No nasal discharge 12/06/2017 Ears/Nose/Throat/Neck No postnasal drip 12/06/2017 Ears/Nose/Throat/Neck No sinus congestion 12/06/2017 Cardiovascular No chest pain/pressure 12/06/2017 Cardiovascular dyspnea 12/06/2017 Cardiovascular No edema 12/06/2017 Cardiovascular exercise intolerance 12/06/2017 Respiratory No chest congestion 12/06/2017 Respiratory No cough 12/06/2017 Gastrointestinal No abdominal pain 12/06/2017 Gastrointestinal No constipation 12/06/2017 Gastrointestinal No diarrhea 12/06/2017 Gastrointestinal No gastroesophageal reflux 12/06/2017 Gastrointestinal No nausea 12/06/2017 Gastrointestinal No vomiting 12/06/2017 Musculoskeletal stiffness 12/06/2017 Musculoskeletal arthralgia(s) 12/06/2017 Musculoskeletal back pain 12/06/2017 Musculoskeletal muscle weakness 12/06/2017 Musculoskeletal myalgias 12/06/2017 Musculoskeletal shoulder pain 12/06/2017 Dermatologic rash 12/06/2017 Neurologic No alteration of consciousness 12/06/2017 Neurologic No mental status change 12/06/2017 Psychiatric No anxiety 12/06/2017 Psychiatric No depression 12/06/2017 Constitutional No recent illness 09/07/2017 Constitutional No chills 09/07/2017 Constitutional fatigue 09/07/2017 Constitutional No fever 09/07/2017 Eyes No blindness 09/07/2017 Eyes No vision change 09/07/2017 Ears/Nose/Throat/Neck No nasal allergies 09/07/2017 Ears/Nose/Throat/Neck No nasal discharge 09/07/2017 Ears/Nose/Throat/Neck No postnasal drip 09/07/2017 Ears/Nose/Throat/Neck No sinus congestion 09/07/2017 Cardiovascular No chest pain/pressure 09/07/2017 Cardiovascular dyspnea 09/07/2017 Cardiovascular No edema 09/07/2017 Cardiovascular exercise intolerance 09/07/2017 Respiratory No chest congestion 09/07/2017 Respiratory No cough 09/07/2017 Gastrointestinal No abdominal pain 09/07/2017 Gastrointestinal No constipation 09/07/2017 Gastrointestinal No diarrhea 09/07/2017 Gastrointestinal No gastroesophageal reflux 09/07/2017 Gastrointestinal No nausea 09/07/2017 Gastrointestinal No vomiting 09/07/2017 Musculoskeletal stiffness 09/07/2017 Musculoskeletal arthralgia(s) 09/07/2017 Musculoskeletal back pain 09/07/2017 Musculoskeletal muscle weakness 09/07/2017 Musculoskeletal myalgias 09/07/2017 Musculoskeletal shoulder pain 09/07/2017 Dermatologic No rash 09/07/2017 Neurologic No alteration of consciousness 09/07/2017 Neurologic No mental status change 09/07/2017 Psychiatric No anxiety 09/07/2017 Psychiatric No depression 09/07/2017 Constitutional No recent illness 06/07/2017 Constitutional No chills 06/07/2017 Constitutional fatigue 06/07/2017 Constitutional No fever 06/07/2017 Eyes No blindness 06/07/2017 Eyes No vision change 06/07/2017 Ears/Nose/Throat/Neck No nasal allergies 06/07/2017 Ears/Nose/Throat/Neck No nasal discharge 06/07/2017 Ears/Nose/Throat/Neck No postnasal drip 06/07/2017 Ears/Nose/Throat/Neck No sinus congestion 06/07/2017 Cardiovascular No chest pain/pressure 06/07/2017 Cardiovascular dyspnea 06/07/2017 Cardiovascular No edema 06/07/2017 Cardiovascular exercise intolerance 06/07/2017 Respiratory No chest congestion 06/07/2017 Respiratory No cough 06/07/2017 Gastrointestinal No abdominal pain 06/07/2017 Gastrointestinal No constipation 06/07/2017 Gastrointestinal No diarrhea 06/07/2017 Gastrointestinal No gastroesophageal reflux 06/07/2017 Gastrointestinal No nausea 06/07/2017 Gastrointestinal No vomiting 06/07/2017 Musculoskeletal stiffness 06/07/2017 Musculoskeletal arthralgia(s) 06/07/2017 Musculoskeletal back pain 06/07/2017 Musculoskeletal muscle weakness 06/07/2017 Musculoskeletal myalgias 06/07/2017 Musculoskeletal shoulder pain 06/07/2017 Dermatologic rash 06/07/2017 Neurologic No alteration of consciousness 06/07/2017 Neurologic No mental status change 06/07/2017 Dermatologic rash 05/19/2017 Constitutional No recent illness 05/19/2017 Constitutional No chills 05/19/2017 Constitutional fatigue 05/19/2017 Constitutional No fever 05/19/2017 Eyes No blindness 05/19/2017 Eyes No vision change 05/19/2017 Ears/Nose/Throat/Neck No nasal allergies 05/19/2017 Ears/Nose/Throat/Neck No nasal discharge 05/19/2017 Ears/Nose/Throat/Neck No postnasal drip 05/19/2017 Ears/Nose/Throat/Neck No sinus congestion 05/19/2017 Cardiovascular No chest pain/pressure 05/19/2017 Cardiovascular dyspnea 05/19/2017 Cardiovascular No edema 05/19/2017 Cardiovascular exercise intolerance 05/19/2017 Respiratory No chest congestion 05/19/2017 Respiratory No cough 05/19/2017 Gastrointestinal No abdominal pain 05/19/2017 Gastrointestinal No constipation 05/19/2017 Gastrointestinal No diarrhea 05/19/2017 Gastrointestinal No gastroesophageal reflux 05/19/2017 Gastrointestinal No nausea 05/19/2017 Gastrointestinal No vomiting 05/19/2017 Musculoskeletal stiffness 05/19/2017 Musculoskeletal arthralgia(s) 05/19/2017 Musculoskeletal back pain 05/19/2017 Musculoskeletal muscle weakness 05/19/2017 Musculoskeletal myalgias 05/19/2017 Musculoskeletal shoulder pain 05/19/2017 Neurologic No alteration of consciousness 05/19/2017 Neurologic No mental status change 05/19/2017 Dermatologic rash 05/09/2017 Dermatologic rash 04/25/2017 Constitutional No recent illness 2017 Constitutional No anorexia 2017 Constitutional No night sweats 2017 Constitutional No chills 2017 Constitutional No diaphoresis 2017 Constitutional No fatigue 2017 Constitutional No fever 2017 Constitutional No insomnia 2017 Constitutional No malaise 2017 Constitutional No weight loss 2017 Constitutional No weight gain 2017 Dermatologic erythema 2017 Dermatologic rash 2017 Constitutional No recent illness 03/29/2017 Constitutional No anorexia 03/29/2017 Constitutional No night sweats 03/29/2017 Constitutional No chills 03/29/2017 Constitutional No diaphoresis 03/29/2017 Constitutional No fatigue 03/29/2017 Constitutional No fever 03/29/2017 Constitutional No insomnia 03/29/2017 Constitutional No malaise 03/29/2017 Constitutional No weight loss 03/29/2017 Constitutional No weight gain 03/29/2017 Dermatologic rash 03/29/2017 Dermatologic erythema 03/29/2017 Constitutional No recent illness 03/17/2017 Constitutional No chills 03/17/2017 Constitutional No diaphoresis 03/17/2017 Constitutional No fever 03/17/2017 Eyes No eye erythema 03/17/2017 Ears/Nose/Throat/Neck No nasal discharge 03/17/2017 Cardiovascular No chest pain/pressure 03/17/2017 Respiratory No dyspnea 03/17/2017 Dermatologic erythema 03/17/2017 Neurologic No alteration of consciousness 03/17/2017 Neurologic No mental status change 03/17/2017 Dermatologic rash 03/08/2017 Constitutional No recent illness 03/08/2017 Constitutional No anorexia 03/08/2017 Constitutional No night sweats 03/08/2017 Constitutional No chills 03/08/2017 Constitutional No diaphoresis 03/08/2017 Constitutional No fatigue 03/08/2017 Constitutional No fever 03/08/2017 Constitutional No insomnia 03/08/2017 Constitutional No malaise 03/08/2017 Constitutional No weight loss 03/08/2017 Constitutional No weight gain 03/08/2017 Constitutional No recent illness 02/17/2017 Constitutional No chills 02/17/2017 Constitutional fatigue 02/17/2017 Constitutional No fever 02/17/2017 Eyes No eye erythema 02/17/2017 Eyes No vision change 02/17/2017 Ears/Nose/Throat/Neck No nasal allergies 02/17/2017 Ears/Nose/Throat/Neck No postnasal drip 02/17/2017 Ears/Nose/Throat/Neck No sinus congestion 02/17/2017 Cardiovascular No chest pain/pressure 02/17/2017 Cardiovascular dyspnea 02/17/2017 Cardiovascular No edema 02/17/2017 Cardiovascular exercise intolerance 02/17/2017 Respiratory No chest congestion 02/17/2017 Gastrointestinal No abdominal pain 02/17/2017 Gastrointestinal No constipation 02/17/2017 Gastrointestinal No diarrhea 02/17/2017 Gastrointestinal No gastroesophageal reflux 02/17/2017 Gastrointestinal No nausea 02/17/2017 Gastrointestinal No vomiting 02/17/2017 Musculoskeletal stiffness 02/17/2017 Musculoskeletal arthralgia(s) 02/17/2017 Musculoskeletal back pain 02/17/2017 Musculoskeletal muscle weakness 02/17/2017 Musculoskeletal myalgias 02/17/2017 Musculoskeletal shoulder pain 02/17/2017 Dermatologic No rash 02/17/2017 Ears/Nose/Throat/Neck No nasal discharge 02/17/2017 Respiratory No cough 02/17/2017 Neurologic No alteration of consciousness 02/17/2017 Neurologic No mental status change 02/17/2017 Constitutional No recent illness 01/18/2017 Constitutional No chills 01/18/2017 Constitutional fatigue 01/18/2017 Constitutional No fever 01/18/2017 Constitutional malaise 01/18/2017 Eyes No blindness 01/18/2017 Eyes No vision change 01/18/2017 Ears/Nose/Throat/Neck No dental pain 01/18/2017 Ears/Nose/Throat/Neck No dizziness 01/18/2017 Ears/Nose/Throat/Neck No dysphagia 01/18/2017 Ears/Nose/Throat/Neck No headache 01/18/2017 Ears/Nose/Throat/Neck No hearing loss 01/18/2017 Ears/Nose/Throat/Neck No nasal allergies 01/18/2017 Ears/Nose/Throat/Neck No sore throat 01/18/2017 Ears/Nose/Throat/Neck No postnasal drip 01/18/2017 Ears/Nose/Throat/Neck No sinus congestion 01/18/2017 Cardiovascular No chest pain/pressure 01/18/2017 Cardiovascular dyspnea 01/18/2017 Cardiovascular No edema 01/18/2017 Cardiovascular exercise intolerance 01/18/2017 Respiratory No chest congestion 01/18/2017 Respiratory No chest tightness 01/18/2017 Respiratory No pedal edema 01/18/2017 Respiratory No snoring 01/18/2017 Respiratory No wheezing 01/18/2017 Gastrointestinal No hemorrhoids 01/18/2017 Gastrointestinal No abdominal pain 01/18/2017 Gastrointestinal No constipation 01/18/2017 Gastrointestinal No diarrhea 01/18/2017 Gastrointestinal gas and bloating 01/18/2017 Gastrointestinal No gastroesophageal reflux 01/18/2017 Gastrointestinal No melena 01/18/2017 Gastrointestinal No nausea 01/18/2017 Gastrointestinal No vomiting 01/18/2017 Genitourinary/Nephrology No dysuria 01/18/2017 Genitourinary/Nephrology nocturia 01/18/2017 Genitourinary/Nephrology polyuria 01/18/2017 Genitourinary/Nephrology urinary frequency 01/18/2017 Genitourinary/Nephrology No urinary incontinence 01/18/2017 Musculoskeletal stiffness 01/18/2017 Musculoskeletal arthralgia(s) 01/18/2017 Musculoskeletal back pain 01/18/2017 Musculoskeletal muscle weakness 01/18/2017 Musculoskeletal myalgias 01/18/2017 Musculoskeletal shoulder pain 01/18/2017 Dermatologic No rash 01/18/2017 Dermatologic No scar 01/18/2017 Neurologic No dizziness 01/18/2017 Neurologic No neck pain 01/18/2017 Neurologic No syncope 01/18/2017 Psychiatric No anxiety 01/18/2017 Psychiatric No depression 01/18/2017 Endocrine No dry or coarse skin 01/18/2017 Endocrine No hair loss 01/18/2017 Endocrine polyuria 01/18/2017 Constitutional No recent illness 10/19/2016 Constitutional No chills 10/19/2016 Constitutional fatigue 10/19/2016 Constitutional No fever 10/19/2016 Constitutional malaise 10/19/2016 Eyes No blindness 10/19/2016 Eyes No vision change 10/19/2016 Ears/Nose/Throat/Neck No dental pain 10/19/2016 Ears/Nose/Throat/Neck No dizziness 10/19/2016 Ears/Nose/Throat/Neck No dysphagia 10/19/2016 Ears/Nose/Throat/Neck No headache 10/19/2016 Ears/Nose/Throat/Neck No hearing loss 10/19/2016 Ears/Nose/Throat/Neck No nasal allergies 10/19/2016 Ears/Nose/Throat/Neck No sore throat 10/19/2016 Ears/Nose/Throat/Neck No postnasal drip 10/19/2016 Ears/Nose/Throat/Neck No sinus congestion 10/19/2016 Cardiovascular No chest pain/pressure 10/19/2016 Cardiovascular dyspnea 10/19/2016 Cardiovascular No edema 10/19/2016 Cardiovascular exercise intolerance 10/19/2016 Respiratory No chest congestion 10/19/2016 Respiratory No chest tightness 10/19/2016 Respiratory No pedal edema 10/19/2016 Respiratory No snoring 10/19/2016 Respiratory No wheezing 10/19/2016 Gastrointestinal No hemorrhoids 10/19/2016 Gastrointestinal No abdominal pain 10/19/2016 Gastrointestinal No constipation 10/19/2016 Gastrointestinal No diarrhea 10/19/2016 Gastrointestinal gas and bloating 10/19/2016 Gastrointestinal No gastroesophageal reflux 10/19/2016 Gastrointestinal No melena 10/19/2016 Gastrointestinal No nausea 10/19/2016 Gastrointestinal No vomiting 10/19/2016 Genitourinary/Nephrology No dysuria 10/19/2016 Genitourinary/Nephrology nocturia 10/19/2016 Genitourinary/Nephrology polyuria 10/19/2016 Genitourinary/Nephrology urinary frequency 10/19/2016 Genitourinary/Nephrology No urinary incontinence 10/19/2016 Musculoskeletal stiffness 10/19/2016 Musculoskeletal arthralgia(s) 10/19/2016 Musculoskeletal back pain 10/19/2016 Musculoskeletal muscle weakness 10/19/2016 Musculoskeletal myalgias 10/19/2016 Dermatologic No rash 10/19/2016 Dermatologic No scar 10/19/2016 Neurologic No dizziness 10/19/2016 Neurologic No neck pain 10/19/2016 Neurologic No syncope 10/19/2016 Psychiatric No anxiety 10/19/2016 Psychiatric No depression 10/19/2016 Endocrine No dry or coarse skin 10/19/2016 Endocrine No hair loss 10/19/2016 Endocrine polyuria 10/19/2016 Musculoskeletal shoulder pain 10/19/2016 Dermatologic rash 08/17/2016 Musculoskeletal joint complaint 08/17/2016 Constitutional No recent illness 08/17/2016 Constitutional No anorexia 08/17/2016 Constitutional No night sweats 08/17/2016 Constitutional No chills 08/17/2016 Constitutional No diaphoresis 08/17/2016 Constitutional No fatigue 08/17/2016 Constitutional No fever 08/17/2016 Constitutional No malaise 08/17/2016 Constitutional No insomnia 08/17/2016 Constitutional No weight loss 08/17/2016 Constitutional No weight gain 08/17/2016 Ears/Nose/Throat/Neck No dizziness 08/17/2016 Ears/Nose/Throat/Neck No headache 08/17/2016 Cardiovascular No chest pain/pressure 08/17/2016 Respiratory No cough 08/17/2016 Gastrointestinal No abdominal pain 08/17/2016 Eyes No eye discharge 08/17/2016 Constitutional No recent illness 07/20/2016 Constitutional No chills 07/20/2016 Constitutional fatigue 07/20/2016 Constitutional No fever 07/20/2016 Eyes No blindness 07/20/2016 Eyes No vision change 07/20/2016 Ears/Nose/Throat/Neck No nasal allergies 07/20/2016 Ears/Nose/Throat/Neck No nasal discharge 07/20/2016 Ears/Nose/Throat/Neck No sore throat 07/20/2016 Ears/Nose/Throat/Neck No postnasal drip 07/20/2016 Ears/Nose/Throat/Neck No sinus congestion 07/20/2016 Cardiovascular No chest pain/pressure 07/20/2016 Cardiovascular No edema 07/20/2016 Cardiovascular exercise intolerance 07/20/2016 Respiratory No cough 07/20/2016 Respiratory No dyspnea 07/20/2016 Gastrointestinal No constipation 07/20/2016 Gastrointestinal No diarrhea 07/20/2016 Gastrointestinal No nausea 07/20/2016 Gastrointestinal No vomiting 07/20/2016 Musculoskeletal stiffness 07/20/2016 Musculoskeletal arthralgia(s) 07/20/2016 Musculoskeletal back pain 07/20/2016 Musculoskeletal muscle weakness 07/20/2016 Musculoskeletal myalgias 07/20/2016 Dermatologic No rash 07/20/2016 Dermatologic No scar 07/20/2016 Neurologic No alteration of consciousness 07/20/2016 Neurologic No mental status change 07/20/2016 Psychiatric No anxiety 07/20/2016 Psychiatric No depression 07/20/2016 Constitutional No recent illness 04/19/2016 Constitutional No chills 04/19/2016 Constitutional fatigue 04/19/2016 Constitutional No fever 04/19/2016 Eyes No blindness 04/19/2016 Eyes No vision change 04/19/2016 Ears/Nose/Throat/Neck No nasal allergies 04/19/2016 Ears/Nose/Throat/Neck No nasal discharge 04/19/2016 Ears/Nose/Throat/Neck No postnasal drip 04/19/2016 Ears/Nose/Throat/Neck No sinus congestion 04/19/2016 Ears/Nose/Throat/Neck No sore throat 04/19/2016 Cardiovascular No chest pain/pressure 04/19/2016 Cardiovascular No edema 04/19/2016 Cardiovascular exercise intolerance 04/19/2016 Respiratory No cough 04/19/2016 Respiratory No dyspnea 04/19/2016 Gastrointestinal No constipation 04/19/2016 Gastrointestinal No diarrhea 04/19/2016 Gastrointestinal No nausea 04/19/2016 Gastrointestinal No vomiting 04/19/2016 Musculoskeletal stiffness 04/19/2016 Musculoskeletal arthralgia(s) 04/19/2016 Musculoskeletal back pain 04/19/2016 Musculoskeletal muscle weakness 04/19/2016 Musculoskeletal myalgias 04/19/2016 Dermatologic No rash 04/19/2016 Dermatologic No scar 04/19/2016 Neurologic No alteration of consciousness 04/19/2016 Neurologic No mental status change 04/19/2016 Psychiatric No anxiety 04/19/2016 Psychiatric No depression 04/19/2016 Constitutional No recent illness 01/19/2016 Constitutional No chills 01/19/2016 Constitutional fatigue 01/19/2016 Constitutional No fever 01/19/2016 Eyes No eye erythema 01/19/2016 Eyes No vision change 01/19/2016 Ears/Nose/Throat/Neck headache 01/19/2016 Ears/Nose/Throat/Neck No sore throat 01/19/2016 Ears/Nose/Throat/Neck No postnasal drip 01/19/2016 Ears/Nose/Throat/Neck No sinus congestion 01/19/2016 Cardiovascular No chest pain/pressure 01/19/2016 Cardiovascular No edema 01/19/2016 Cardiovascular exercise intolerance 01/19/2016 Gastrointestinal No constipation 01/19/2016 Gastrointestinal No diarrhea 01/19/2016 Gastrointestinal No nausea 01/19/2016 Gastrointestinal No vomiting 01/19/2016 Musculoskeletal stiffness 01/19/2016 Musculoskeletal arthralgia(s) 01/19/2016 Musculoskeletal back pain 01/19/2016 Musculoskeletal muscle weakness 01/19/2016 Musculoskeletal myalgias 01/19/2016 Dermatologic No rash 01/19/2016 Dermatologic No scar 01/19/2016 Psychiatric No anxiety 01/19/2016 Psychiatric No depression 01/19/2016 Ears/Nose/Throat/Neck No nasal discharge 01/19/2016 Ears/Nose/Throat/Neck No nasal allergies 01/19/2016 Respiratory No cough 01/19/2016 Respiratory No dyspnea 01/19/2016 Neurologic No alteration of consciousness 01/19/2016 Neurologic No mental status change 01/19/2016 Constitutional No recent illness 10/16/2015 Constitutional No chills 10/16/2015 Constitutional fatigue 10/16/2015 Constitutional No fever 10/16/2015 Eyes No blindness 10/16/2015 Eyes No vision change 10/16/2015 Ears/Nose/Throat/Neck No dental pain 10/16/2015 Ears/Nose/Throat/Neck No dizziness 10/16/2015 Ears/Nose/Throat/Neck No dysphagia 10/16/2015 Ears/Nose/Throat/Neck No headache 10/16/2015 Ears/Nose/Throat/Neck No hearing loss 10/16/2015 Ears/Nose/Throat/Neck No sore throat 10/16/2015 Ears/Nose/Throat/Neck No postnasal drip 10/16/2015 Ears/Nose/Throat/Neck No sinus congestion 10/16/2015 Cardiovascular No chest pain/pressure 10/16/2015 Cardiovascular No edema 10/16/2015 Cardiovascular exercise intolerance 10/16/2015 Respiratory No chest congestion 10/16/2015 Respiratory No chest tightness 10/16/2015 Respiratory No pedal edema 10/16/2015 Respiratory No snoring 10/16/2015 Respiratory No wheezing 10/16/2015 Gastrointestinal No hemorrhoids 10/16/2015 Gastrointestinal No abdominal pain 10/16/2015 Gastrointestinal No constipation 10/16/2015 Gastrointestinal No diarrhea 10/16/2015 Gastrointestinal gas and bloating 10/16/2015 Gastrointestinal No gastroesophageal reflux 10/16/2015 Gastrointestinal No melena 10/16/2015 Gastrointestinal No nausea 10/16/2015 Gastrointestinal No vomiting 10/16/2015 Genitourinary/Nephrology No dysuria 10/16/2015 Genitourinary/Nephrology nocturia 10/16/2015 Genitourinary/Nephrology polyuria 10/16/2015 Genitourinary/Nephrology urinary frequency 10/16/2015 Genitourinary/Nephrology No urinary incontinence 10/16/2015 Musculoskeletal stiffness 10/16/2015 Musculoskeletal arthralgia(s) 10/16/2015 Musculoskeletal back pain 10/16/2015 Musculoskeletal muscle weakness 10/16/2015 Musculoskeletal myalgias 10/16/2015 Dermatologic No rash 10/16/2015 Dermatologic No scar 10/16/2015 Neurologic No dizziness 10/16/2015 Neurologic No neck pain 10/16/2015 Neurologic No syncope 10/16/2015 Psychiatric No anxiety 10/16/2015 Psychiatric No depression 10/16/2015 Endocrine No dry or coarse skin 10/16/2015 Endocrine No hair loss 10/16/2015 Endocrine polyuria 10/16/2015 Constitutional No recent illness 07/17/2015 Constitutional No chills 07/17/2015 Constitutional fatigue 07/17/2015 Constitutional No fever 07/17/2015 Eyes No blindness 07/17/2015 Eyes No vision change 07/17/2015 Ears/Nose/Throat/Neck No dental pain 07/17/2015 Ears/Nose/Throat/Neck No dizziness 07/17/2015 Ears/Nose/Throat/Neck No dysphagia 07/17/2015 Ears/Nose/Throat/Neck No headache 07/17/2015 Ears/Nose/Throat/Neck No hearing loss 07/17/2015 Ears/Nose/Throat/Neck No sore throat 07/17/2015 Ears/Nose/Throat/Neck No postnasal drip 07/17/2015 Ears/Nose/Throat/Neck No sinus congestion 07/17/2015 Cardiovascular No chest pain/pressure 07/17/2015 Cardiovascular No edema 07/17/2015 Cardiovascular exercise intolerance 07/17/2015 Respiratory No chest congestion 07/17/2015 Respiratory No chest tightness 07/17/2015 Respiratory No pedal edema 07/17/2015 Respiratory No snoring 07/17/2015 Respiratory No wheezing 07/17/2015 Gastrointestinal No hemorrhoids 07/17/2015 Gastrointestinal No abdominal pain 07/17/2015 Gastrointestinal No constipation 07/17/2015 Gastrointestinal No diarrhea 07/17/2015 Gastrointestinal gas and bloating 07/17/2015 Gastrointestinal No gastroesophageal reflux 07/17/2015 Gastrointestinal No melena 07/17/2015 Gastrointestinal No nausea 07/17/2015 Gastrointestinal No vomiting 07/17/2015 Genitourinary/Nephrology No dysuria 07/17/2015 Genitourinary/Nephrology nocturia 07/17/2015 Genitourinary/Nephrology polyuria 07/17/2015 Genitourinary/Nephrology urinary frequency 07/17/2015 Genitourinary/Nephrology No urinary incontinence 07/17/2015 Musculoskeletal stiffness 07/17/2015 Musculoskeletal arthralgia(s) 07/17/2015 Musculoskeletal back pain 07/17/2015 Musculoskeletal muscle weakness 07/17/2015 Musculoskeletal myalgias 07/17/2015 Dermatologic No rash 07/17/2015 Dermatologic No scar 07/17/2015 Neurologic No dizziness 07/17/2015 Neurologic No neck pain 07/17/2015 Neurologic No syncope 07/17/2015 Psychiatric No anxiety 07/17/2015 Psychiatric No depression 07/17/2015 Endocrine No dry or coarse skin 07/17/2015 Endocrine No hair loss 07/17/2015 Endocrine polyuria 07/17/2015 Constitutional No recent illness 04/16/2015 Constitutional No chills 04/16/2015 Constitutional fatigue 04/16/2015 Constitutional No fever 04/16/2015 Constitutional malaise 04/16/2015 Eyes No blindness 04/16/2015 Eyes No vision change 04/16/2015 Ears/Nose/Throat/Neck No dental pain 04/16/2015 Ears/Nose/Throat/Neck No dizziness 04/16/2015 Ears/Nose/Throat/Neck No dysphagia 04/16/2015 Ears/Nose/Throat/Neck No headache 04/16/2015 Ears/Nose/Throat/Neck No hearing loss 04/16/2015 Ears/Nose/Throat/Neck nasal allergies 04/16/2015 Ears/Nose/Throat/Neck No sore throat 04/16/2015 Ears/Nose/Throat/Neck No postnasal drip 04/16/2015 Ears/Nose/Throat/Neck No sinus congestion 04/16/2015 Cardiovascular No chest pain/pressure 04/16/2015 Cardiovascular No edema 04/16/2015 Cardiovascular exercise intolerance 04/16/2015 Respiratory No chest congestion 04/16/2015 Respiratory No chest tightness 04/16/2015 Respiratory No pedal edema 04/16/2015 Respiratory No snoring 04/16/2015 Respiratory No wheezing 04/16/2015 Gastrointestinal No hemorrhoids 04/16/2015 Gastrointestinal No abdominal pain 04/16/2015 Gastrointestinal No constipation 04/16/2015 Gastrointestinal No diarrhea 04/16/2015 Gastrointestinal gas and bloating 04/16/2015 Gastrointestinal No gastroesophageal reflux 04/16/2015 Gastrointestinal No melena 04/16/2015 Gastrointestinal No nausea 04/16/2015 Gastrointestinal No vomiting 04/16/2015 Genitourinary/Nephrology No dysuria 04/16/2015 Genitourinary/Nephrology nocturia 04/16/2015 Genitourinary/Nephrology polyuria 04/16/2015 Genitourinary/Nephrology urinary frequency 04/16/2015 Genitourinary/Nephrology No urinary incontinence 04/16/2015 Musculoskeletal stiffness 04/16/2015 Musculoskeletal arthralgia(s) 04/16/2015 Musculoskeletal back pain 04/16/2015 Musculoskeletal muscle weakness 04/16/2015 Musculoskeletal myalgias 04/16/2015 Dermatologic No rash 04/16/2015 Dermatologic No scar 04/16/2015 Neurologic No dizziness 04/16/2015 Neurologic No neck pain 04/16/2015 Neurologic No syncope 04/16/2015 Psychiatric No anxiety 04/16/2015 Psychiatric No depression 04/16/2015 Endocrine No dry or coarse skin 04/16/2015 Endocrine No hair loss 04/16/2015 Endocrine polyuria 04/16/2015 Constitutional No recent illness 02/19/2015 Constitutional No chills 02/19/2015 Constitutional fatigue 02/19/2015 Constitutional No fever 02/19/2015 Constitutional malaise 02/19/2015 Eyes No blindness 02/19/2015 Eyes No vision change 02/19/2015 Ears/Nose/Throat/Neck No dental pain 02/19/2015 Ears/Nose/Throat/Neck No dizziness 02/19/2015 Ears/Nose/Throat/Neck No dysphagia 02/19/2015 Ears/Nose/Throat/Neck No headache 02/19/2015 Ears/Nose/Throat/Neck No hearing loss 02/19/2015 Ears/Nose/Throat/Neck No nasal allergies 02/19/2015 Ears/Nose/Throat/Neck No sore throat 02/19/2015 Ears/Nose/Throat/Neck No postnasal drip 02/19/2015 Ears/Nose/Throat/Neck No sinus congestion 02/19/2015 Cardiovascular No chest pain/pressure 02/19/2015 Cardiovascular dyspnea 02/19/2015 Cardiovascular No edema 02/19/2015 Cardiovascular exercise intolerance 02/19/2015 Respiratory No chest congestion 02/19/2015 Respiratory No chest tightness 02/19/2015 Respiratory No pedal edema 02/19/2015 Respiratory No snoring 02/19/2015 Respiratory No wheezing 02/19/2015 Gastrointestinal No hemorrhoids 02/19/2015 Gastrointestinal No abdominal pain 02/19/2015 Gastrointestinal No constipation 02/19/2015 Gastrointestinal No diarrhea 02/19/2015 Gastrointestinal gas and bloating 02/19/2015 Gastrointestinal No gastroesophageal reflux 02/19/2015 Gastrointestinal No melena 02/19/2015 Gastrointestinal No nausea 02/19/2015 Gastrointestinal No vomiting 02/19/2015 Genitourinary/Nephrology No dysuria 02/19/2015 Genitourinary/Nephrology nocturia 02/19/2015 Genitourinary/Nephrology polyuria 02/19/2015 Genitourinary/Nephrology urinary frequency 02/19/2015 Genitourinary/Nephrology No urinary incontinence 02/19/2015 Musculoskeletal stiffness 02/19/2015 Musculoskeletal arthralgia(s) 02/19/2015 Musculoskeletal back pain 02/19/2015 Musculoskeletal muscle weakness 02/19/2015 Musculoskeletal myalgias 02/19/2015 Dermatologic No rash 02/19/2015 Dermatologic No scar 02/19/2015 Neurologic No dizziness 02/19/2015 Neurologic No neck pain 02/19/2015 Neurologic No syncope 02/19/2015 Psychiatric No anxiety 02/19/2015 Psychiatric No depression 02/19/2015 Endocrine No dry or coarse skin 02/19/2015 Endocrine No hair loss 02/19/2015 Endocrine polyuria 02/19/2015 Constitutional recent illness 11/20/2014 Constitutional fatigue 11/20/2014 Constitutional malaise 11/20/2014 Eyes eye discharge 11/20/2014 Eyes eye erythema 11/20/2014 Eyes eye pain 11/20/2014 Eyes eyelid pain 11/20/2014 Ears/Nose/Throat/Neck No dental pain 11/20/2014 Ears/Nose/Throat/Neck No dizziness 11/20/2014 Ears/Nose/Throat/Neck No dysphagia 11/20/2014 Ears/Nose/Throat/Neck headache 11/20/2014 Ears/Nose/Throat/Neck No hearing loss 11/20/2014 Ears/Nose/Throat/Neck No nasal allergies 11/20/2014 Ears/Nose/Throat/Neck No sore throat 11/20/2014 Ears/Nose/Throat/Neck No postnasal drip 11/20/2014 Ears/Nose/Throat/Neck No sinus congestion 11/20/2014 Cardiovascular hypertension 11/20/2014 Neurologic headache 11/20/2014 Psychiatric No anxiety 11/20/2014 Psychiatric No depression 11/20/2014 Dermatologic erythema 11/20/2014 Dermatologic rash 11/20/2014 Respiratory No chest tightness 11/20/2014 Respiratory No cigarette smoking 11/20/2014 Respiratory No cough 11/20/2014 Respiratory No dyspnea 11/20/2014 Respiratory No pedal edema 11/20/2014 Respiratory No snoring 11/20/2014 Respiratory No wheezing 11/20/2014 Gastrointestinal No abdominal pain 11/20/2014 Gastrointestinal No constipation 11/20/2014 Gastrointestinal No diarrhea 11/20/2014 Gastrointestinal No gastroesophageal reflux 11/20/2014 Gastrointestinal No melena 11/20/2014 Gastrointestinal No nausea 11/20/2014 Gastrointestinal No vomiting 11/20/2014 Constitutional recent illness 11/05/2014 Constitutional fatigue 11/05/2014 Constitutional malaise 11/05/2014 Eyes eye discharge 11/05/2014 Eyes eye erythema 11/05/2014 Eyes eye pain 11/05/2014 Eyes eyelid pain 11/05/2014 Ears/Nose/Throat/Neck No dental pain 11/05/2014 Ears/Nose/Throat/Neck No dizziness 11/05/2014 Ears/Nose/Throat/Neck No dysphagia 11/05/2014 Ears/Nose/Throat/Neck headache 11/05/2014 Ears/Nose/Throat/Neck No hearing loss 11/05/2014 Ears/Nose/Throat/Neck No nasal allergies 11/05/2014 Ears/Nose/Throat/Neck No sore throat 11/05/2014 Ears/Nose/Throat/Neck No postnasal drip 11/05/2014 Ears/Nose/Throat/Neck No sinus congestion 11/05/2014 Cardiovascular hypertension 11/05/2014 Neurologic headache 11/05/2014 Constitutional No recent illness 09/19/2014 Constitutional No chills 09/19/2014 Constitutional fatigue 09/19/2014 Constitutional No fever 09/19/2014 Constitutional malaise 09/19/2014 Eyes No blindness 09/19/2014 Eyes No vision change 09/19/2014 Ears/Nose/Throat/Neck No dental pain 09/19/2014 Ears/Nose/Throat/Neck No dizziness 09/19/2014 Ears/Nose/Throat/Neck No dysphagia 09/19/2014 Ears/Nose/Throat/Neck No headache 09/19/2014 Ears/Nose/Throat/Neck No hearing loss 09/19/2014 Ears/Nose/Throat/Neck No nasal allergies 09/19/2014 Ears/Nose/Throat/Neck No sore throat 09/19/2014 Ears/Nose/Throat/Neck No postnasal drip 09/19/2014 Ears/Nose/Throat/Neck No sinus congestion 09/19/2014 Cardiovascular No chest pain/pressure 09/19/2014 Cardiovascular dyspnea 09/19/2014 Cardiovascular No edema 09/19/2014 Cardiovascular exercise intolerance 09/19/2014 Respiratory No chest congestion 09/19/2014 Respiratory No chest tightness 09/19/2014 Respiratory No pedal edema 09/19/2014 Respiratory No snoring 09/19/2014 Respiratory No wheezing 09/19/2014 Gastrointestinal No hemorrhoids 09/19/2014 Gastrointestinal No abdominal pain 09/19/2014 Gastrointestinal No constipation 09/19/2014 Gastrointestinal No diarrhea 09/19/2014 Gastrointestinal gas and bloating 09/19/2014 Gastrointestinal No gastroesophageal reflux 09/19/2014 Gastrointestinal No melena 09/19/2014 Gastrointestinal No nausea 09/19/2014 Gastrointestinal No vomiting 09/19/2014 Genitourinary/Nephrology No dysuria 09/19/2014 Genitourinary/Nephrology nocturia 09/19/2014 Genitourinary/Nephrology polyuria 09/19/2014 Genitourinary/Nephrology urinary frequency 09/19/2014 Genitourinary/Nephrology No urinary incontinence 09/19/2014 Musculoskeletal stiffness 09/19/2014 Musculoskeletal arthralgia(s) 09/19/2014 Musculoskeletal back pain 09/19/2014 Musculoskeletal muscle weakness 09/19/2014 Musculoskeletal myalgias 09/19/2014 Dermatologic No rash 09/19/2014 Dermatologic No scar 09/19/2014 Neurologic No dizziness 09/19/2014 Neurologic No neck pain 09/19/2014 Neurologic No syncope 09/19/2014 Psychiatric No anxiety 09/19/2014 Psychiatric No depression 09/19/2014 Endocrine No dry or coarse skin 09/19/2014 Endocrine No hair loss 09/19/2014 Endocrine polyuria 09/19/2014 Constitutional insomnia 09/19/2014 Musculoskeletal joint complaint 09/19/2014 Neurologic gait abnormality 09/19/2014 Neurologic pain, back 09/19/2014 Neurologic pain, limb 09/19/2014 Neurologic weakness 09/19/2014 Constitutional No recent illness 07/24/2014 Constitutional No chills 07/24/2014 Constitutional fatigue 07/24/2014 Constitutional No fever 07/24/2014 Constitutional insomnia 07/24/2014 Constitutional malaise 07/24/2014 Eyes No blindness 07/24/2014 Eyes No vision change 07/24/2014 Ears/Nose/Throat/Neck No dental pain 07/24/2014 Ears/Nose/Throat/Neck No dizziness 07/24/2014 Ears/Nose/Throat/Neck No dysphagia 07/24/2014 Ears/Nose/Throat/Neck No headache 07/24/2014 Ears/Nose/Throat/Neck No hearing loss 07/24/2014 Ears/Nose/Throat/Neck No nasal allergies 07/24/2014 Ears/Nose/Throat/Neck No postnasal drip 07/24/2014 Ears/Nose/Throat/Neck No sinus congestion 07/24/2014 Ears/Nose/Throat/Neck No sore throat 07/24/2014 Cardiovascular No chest pain/pressure 07/24/2014 Cardiovascular dyspnea 07/24/2014 Cardiovascular No edema 07/24/2014 Cardiovascular exercise intolerance 07/24/2014 Respiratory No chest congestion 07/24/2014 Respiratory No chest tightness 07/24/2014 Respiratory No pedal edema 07/24/2014 Respiratory No snoring 07/24/2014 Respiratory No wheezing 07/24/2014 Gastrointestinal No hemorrhoids 07/24/2014 Gastrointestinal No abdominal pain 07/24/2014 Gastrointestinal No constipation 07/24/2014 Gastrointestinal No diarrhea 07/24/2014 Gastrointestinal gas and bloating 07/24/2014 Gastrointestinal No gastroesophageal reflux 07/24/2014 Gastrointestinal No melena 07/24/2014 Gastrointestinal No nausea 07/24/2014 Gastrointestinal No vomiting 07/24/2014 Genitourinary/Nephrology No dysuria 07/24/2014 Genitourinary/Nephrology nocturia 07/24/2014 Genitourinary/Nephrology polyuria 07/24/2014 Genitourinary/Nephrology urinary frequency 07/24/2014 Genitourinary/Nephrology No urinary incontinence 07/24/2014 Musculoskeletal stiffness 07/24/2014 Musculoskeletal arthralgia(s) 07/24/2014 Musculoskeletal back pain 07/24/2014 Musculoskeletal muscle weakness 07/24/2014 Musculoskeletal myalgias 07/24/2014 Dermatologic No rash 07/24/2014 Dermatologic No scar 07/24/2014 Neurologic No dizziness 07/24/2014 Neurologic No neck pain 07/24/2014 Neurologic No syncope 07/24/2014 Psychiatric No anxiety 07/24/2014 Psychiatric No depression 07/24/2014 Endocrine No dry or coarse skin 07/24/2014 Endocrine No hair loss 07/24/2014 Endocrine polyuria 07/24/2014 Constitutional No recent illness 05/23/2014 Constitutional No chills 05/23/2014 Constitutional fatigue 05/23/2014 Constitutional No fever 05/23/2014 Constitutional insomnia 05/23/2014 Constitutional malaise 05/23/2014 Eyes No blindness 05/23/2014 Eyes No vision change 05/23/2014 Ears/Nose/Throat/Neck No dental pain 05/23/2014 Ears/Nose/Throat/Neck No dizziness 05/23/2014 Ears/Nose/Throat/Neck No dysphagia 05/23/2014 Ears/Nose/Throat/Neck No headache 05/23/2014 Ears/Nose/Throat/Neck No hearing loss 05/23/2014 Ears/Nose/Throat/Neck No nasal allergies 05/23/2014 Ears/Nose/Throat/Neck No sore throat 05/23/2014 Ears/Nose/Throat/Neck No postnasal drip 05/23/2014 Ears/Nose/Throat/Neck No sinus congestion 05/23/2014 Cardiovascular No chest pain/pressure 05/23/2014 Cardiovascular dyspnea 05/23/2014 Cardiovascular No edema 05/23/2014 Cardiovascular exercise intolerance 05/23/2014 Respiratory No chest congestion 05/23/2014 Respiratory No chest tightness 05/23/2014 Respiratory No pedal edema 05/23/2014 Respiratory No snoring 05/23/2014 Respiratory No wheezing 05/23/2014 Gastrointestinal No hemorrhoids 05/23/2014 Gastrointestinal No abdominal pain 05/23/2014 Gastrointestinal No constipation 05/23/2014 Gastrointestinal No diarrhea 05/23/2014 Gastrointestinal gas and bloating 05/23/2014 Gastrointestinal No gastroesophageal reflux 05/23/2014 Gastrointestinal No melena 05/23/2014 Gastrointestinal No nausea 05/23/2014 Gastrointestinal No vomiting 05/23/2014 Genitourinary/Nephrology No dysuria 05/23/2014 Genitourinary/Nephrology nocturia 05/23/2014 Genitourinary/Nephrology polyuria 05/23/2014 Genitourinary/Nephrology urinary frequency 05/23/2014 Genitourinary/Nephrology No urinary incontinence 05/23/2014 Musculoskeletal stiffness 05/23/2014 Musculoskeletal arthralgia(s) 05/23/2014 Musculoskeletal back pain 05/23/2014 Musculoskeletal muscle weakness 05/23/2014 Musculoskeletal myalgias 05/23/2014 Dermatologic No rash 05/23/2014 Dermatologic No scar 05/23/2014 Neurologic No dizziness 05/23/2014 Neurologic headache 05/23/2014 Neurologic No neck pain 05/23/2014 Neurologic No syncope 05/23/2014 Psychiatric No anxiety 05/23/2014 Psychiatric No depression 05/23/2014 Endocrine No dry or coarse skin 05/23/2014 Endocrine No hair loss 05/23/2014 Endocrine polydipsia 05/23/2014 Endocrine polyuria 05/23/2014 Constitutional insomnia 04/18/2014 Constitutional fatigue 04/18/2014 Constitutional No recent illness 04/18/2014 Cardiovascular No chest pain/pressure 04/18/2014 Cardiovascular dyspnea 04/18/2014 Respiratory No chest congestion 04/18/2014 Respiratory cough 04/18/2014 Gastrointestinal No constipation 04/18/2014 Gastrointestinal No diarrhea 04/18/2014 Gastrointestinal No vomiting 04/18/2014 Gastrointestinal No nausea 04/18/2014 Gastrointestinal gas and bloating 04/18/2014 Genitourinary/Nephrology polyuria 04/18/2014 Genitourinary/Nephrology urinary frequency 04/18/2014 Genitourinary/Nephrology nocturia 04/18/2014 Genitourinary/Nephrology No dysuria 04/18/2014 Endocrine polyuria 04/18/2014 Endocrine polydipsia 04/18/2014 Musculoskeletal back pain 04/18/2014 Constitutional No chills 04/18/2014 Constitutional No fever 04/18/2014 Constitutional malaise 04/18/2014 Eyes No blindness 04/18/2014 Eyes No vision change 04/18/2014 Ears/Nose/Throat/Neck No dental pain 04/18/2014 Ears/Nose/Throat/Neck No dizziness 04/18/2014 Ears/Nose/Throat/Neck No dysphagia 04/18/2014 Ears/Nose/Throat/Neck No headache 04/18/2014 Ears/Nose/Throat/Neck No hearing loss 04/18/2014 Ears/Nose/Throat/Neck No nasal allergies 04/18/2014 Ears/Nose/Throat/Neck No sore throat 04/18/2014 Ears/Nose/Throat/Neck No postnasal drip 04/18/2014 Ears/Nose/Throat/Neck No sinus congestion 04/18/2014 Cardiovascular No edema 04/18/2014 Cardiovascular exercise intolerance 04/18/2014 Respiratory No chest tightness 04/18/2014 Respiratory cigarette smoking 04/18/2014 Respiratory No pedal edema 04/18/2014 Respiratory No snoring 04/18/2014 Respiratory No wheezing 04/18/2014 Gastrointestinal No hemorrhoids 04/18/2014 Gastrointestinal No abdominal pain 04/18/2014 Gastrointestinal No gastroesophageal reflux 04/18/2014 Gastrointestinal No melena 04/18/2014 Genitourinary/Nephrology No urinary incontinence 04/18/2014 Musculoskeletal stiffness 04/18/2014 Musculoskeletal arthralgia(s) 04/18/2014 Musculoskeletal muscle weakness 04/18/2014 Musculoskeletal myalgias 04/18/2014 Dermatologic No rash 04/18/2014 Dermatologic No scar 04/18/2014 Neurologic No dizziness 04/18/2014 Neurologic headache 04/18/2014 Neurologic No neck pain 04/18/2014 Neurologic No syncope 04/18/2014 Psychiatric No anxiety 04/18/2014 Psychiatric No depression 04/18/2014 Endocrine No dry or coarse skin 04/18/2014 Endocrine No hair loss 04/18/2014 Constitutional No recent illness 02/21/2014 Constitutional No anorexia 02/21/2014 Constitutional No night sweats 02/21/2014 Constitutional No chills 02/21/2014 Constitutional No diaphoresis 02/21/2014 Constitutional fatigue 02/21/2014 Constitutional No fever 02/21/2014 Constitutional insomnia 02/21/2014 Constitutional No weight loss 02/21/2014 Constitutional No malaise 02/21/2014 Constitutional No weight gain 02/21/2014 Eyes No eye discharge 02/21/2014 Eyes No eye erythema 02/21/2014 Ears/Nose/Throat/Neck No dizziness 02/21/2014 Ears/Nose/Throat/Neck No headache 02/21/2014 Cardiovascular dyspnea 02/21/2014 Cardiovascular No near-syncope/dizziness 02/21/2014 Respiratory No productive sputum 02/21/2014 Respiratory No chest congestion 02/21/2014 Gastrointestinal No abdominal pain 02/21/2014 Gastrointestinal No constipation 02/21/2014 Gastrointestinal No diarrhea 02/21/2014 Genitourinary/Nephrology No dysuria 02/21/2014 Genitourinary/Nephrology urinary frequency 02/21/2014 Dermatologic No rash 02/21/2014 Dermatologic No sores 02/21/2014 Constitutional No recent illness 12/25/2013 Constitutional No anorexia 12/25/2013 Constitutional No fever 12/25/2013 Constitutional No chills 12/25/2013 Constitutional No diaphoresis 12/25/2013 Constitutional No night sweats 12/25/2013 Constitutional No insomnia 12/25/2013 Constitutional No chills 11/28/2013 Constitutional fatigue 11/28/2013 Constitutional No fever 11/28/2013 Constitutional insomnia 11/28/2013 Constitutional malaise 11/28/2013 Ears/Nose/Throat/Neck No postnasal drip 11/28/2013 Cardiovascular dyspnea 11/28/2013 Cardiovascular No edema 11/28/2013 Cardiovascular exercise intolerance 11/28/2013 Cardiovascular fatigue 11/28/2013 Respiratory No chest tightness 11/28/2013 Respiratory cigarette smoking 11/28/2013 Respiratory cough 11/28/2013 Respiratory No dyspnea 11/28/2013 Respiratory No pedal edema 11/28/2013 Respiratory No snoring 11/28/2013 Respiratory No wheezing 11/28/2013 Gastrointestinal No hemorrhoids 11/28/2013 Gastrointestinal No abdominal pain 11/28/2013 Gastrointestinal No constipation 11/28/2013 Gastrointestinal No diarrhea 11/28/2013 Gastrointestinal No gastroesophageal reflux 11/28/2013 Gastrointestinal No melena 11/28/2013 Gastrointestinal No nausea 11/28/2013 Gastrointestinal No vomiting 11/28/2013 Musculoskeletal stiffness 11/28/2013 Musculoskeletal arthralgia(s) 11/28/2013 Musculoskeletal back pain 11/28/2013 Musculoskeletal muscle weakness 11/28/2013 Musculoskeletal myalgias 11/28/2013 Neurologic No dizziness 11/28/2013 Neurologic No headache 11/28/2013 Neurologic No neck pain 11/28/2013 Neurologic No syncope 11/28/2013 Psychiatric No anxiety 11/28/2013 Psychiatric No depression 11/28/2013 Constitutional No recent illness 11/14/2013 Constitutional No chills 11/14/2013 Constitutional fatigue 11/14/2013 Constitutional No fever 11/14/2013 Constitutional insomnia 11/14/2013 Constitutional malaise 11/14/2013 Eyes No blindness 11/14/2013 Eyes No vision change 11/14/2013 Ears/Nose/Throat/Neck No dental pain 11/14/2013 Ears/Nose/Throat/Neck No dizziness 11/14/2013 Ears/Nose/Throat/Neck No dysphagia 11/14/2013 Ears/Nose/Throat/Neck No headache 11/14/2013 Ears/Nose/Throat/Neck No hearing loss 11/14/2013 Ears/Nose/Throat/Neck No nasal allergies 11/14/2013 Ears/Nose/Throat/Neck No sore throat 11/14/2013 Ears/Nose/Throat/Neck No postnasal drip 11/14/2013 Ears/Nose/Throat/Neck No sinus congestion 11/14/2013 Cardiovascular dyspnea 11/14/2013 Cardiovascular No edema 11/14/2013 Cardiovascular exercise intolerance 11/14/2013 Cardiovascular fatigue 11/14/2013 Respiratory No chest tightness 11/14/2013 Respiratory cigarette smoking 11/14/2013 Respiratory cough 11/14/2013 Respiratory No dyspnea 11/14/2013 Respiratory No pedal edema 11/14/2013 Respiratory No snoring 11/14/2013 Respiratory No wheezing 11/14/2013 Gastrointestinal No hemorrhoids 11/14/2013 Gastrointestinal No abdominal pain 11/14/2013 Gastrointestinal No constipation 11/14/2013 Gastrointestinal No diarrhea 11/14/2013 Gastrointestinal No gastroesophageal reflux 11/14/2013 Gastrointestinal No melena 11/14/2013 Gastrointestinal No nausea 11/14/2013 Gastrointestinal No vomiting 11/14/2013 Genitourinary/Nephrology No dysuria 11/14/2013 Genitourinary/Nephrology No nocturia 11/14/2013 Genitourinary/Nephrology No urinary incontinence 11/14/2013 Musculoskeletal stiffness 11/14/2013 Musculoskeletal arthralgia(s) 11/14/2013 Musculoskeletal back pain 11/14/2013 Musculoskeletal muscle weakness 11/14/2013 Musculoskeletal myalgias 11/14/2013 Dermatologic No rash 11/14/2013 Dermatologic No scar 11/14/2013 Neurologic No dizziness 11/14/2013 Neurologic No headache 11/14/2013 Neurologic No neck pain 11/14/2013 Neurologic No syncope 11/14/2013 Psychiatric No anxiety 11/14/2013 Psychiatric No depression 11/14/2013 Endocrine No hair loss 11/14/2013 Endocrine No dry or coarse skin 11/14/2013 Physical Exam Exam Name System Name Item Name Status Result Effective Dates Notes Full Exam - ENT Constitutional general appearance Overall: well nourished 11/09/2018 None Full Exam - ENT Constitutional general appearance Overall: well developed 11/09/2018 None Full Exam - ENT Constitutional general appearance Overall: in no acute distress 11/09/2018 None Full Exam - ENT Ears/Nose/Throat otoscopic exam Overall: external auditory canals normal 11/09/2018 None Full Exam - ENT Ears/Nose/Throat otoscopic exam Left tympanic membrane: air-fluid level 11/09/2018 None Full Exam - ENT Ears/Nose/Throat otoscopic exam Right tympanic membrane: air-fluid level 11/09/2018 None Full Exam - ENT Ears/Nose/Throat nasal mucosa, septum, turbinates Drainage: clear 11/09/2018 None Full Exam - ENT Ears/Nose/Throat nasal mucosa, septum, turbinates Drainage: yellow 11/09/2018 None Full Exam - ENT Ears/Nose/Throat lips/teeth/gingiva Overall: benign lips 11/09/2018 None Full Exam - ENT Ears/Nose/Throat oropharynx Posterior Pharynx: clear post nasal drainage 11/09/2018 None Full Exam - ENT Face and Head palpation Left maxillary sinus: tender 11/09/2018 None Full Exam - ENT Face and Head palpation Right maxillary sinus: tender 11/09/2018 None Full Exam - ENT Respiratory inspection Overall: no retractions 11/09/2018 None Full Exam - ENT Respiratory inspection Overall: normal rate 11/09/2018 None Full Exam - ENT Respiratory auscultation Overall: breath sounds clear bilaterally 11/09/2018 None Full Exam - ENT Cardiovascular auscultation of heart Overall: regular rate 11/09/2018 None Full Exam - ENT Cardiovascular auscultation of heart Overall: normal heart sounds 11/09/2018 None Full Exam - ENT Lymphatic palpation of lymph nodes Overall: anterior cervical chain benign 11/09/2018 None Full Exam - ENT Lymphatic palpation of lymph nodes Overall: posterior cervical chain benign 11/09/2018 None Full Exam - ENT Neurologic mood and affect Overall: normal mood 11/09/2018 None Full Exam - ENT Neurologic mood and affect Overall: normal affect 11/09/2018 None Full Exam - ENT Neurologic orientation Overall: oriented to person, place and time 11/09/2018 None Full Exam - ENT Respiratory auscultation Right lower lung field: expiratory wheezes 11/09/2018 faint Full Exam - General 1994 Constitutional general appearance Overall: well developed 09/04/2018 None Full Exam - General 1994 Constitutional general appearance Overall: in no acute distress 09/04/2018 None Full Exam - General 1994 Constitutional general appearance Overall: well nourished 09/04/2018 None Full Exam - General 1994 Respiratory auscultation Overall: breath sounds clear bilaterally 09/04/2018 None Full Exam - General 1994 Respiratory respiratory effort/rhythm Overall: no retractions 09/04/2018 None Full Exam - General 1994 Respiratory respiratory effort/rhythm Overall: normal rate 09/04/2018 None Full Exam - General 1994 Cardiovascular auscultation of heart Rate: regular rate 09/04/2018 None Full Exam - General 1994 Integument inspection of skin Location: left foot 09/04/2018 --Resolved Full Exam - General 1994 Integument inspection of skin Rash/Lesions: excoriation 09/04/2018 top of left foot, ankle and lower leg --Resolved Full Exam - General 1994 Integument inspection of skin Pigmentation: erythematous 09/04/2018 --Resolved Full Exam - General 1994 Psychiatric orientation/consciousness Overall: oriented to person, place and time 09/04/2018 None Full Exam - General 1994 Constitutional general appearance Overall: well developed 08/28/2018 None Full Exam - General 1994 Constitutional general appearance Overall: in no acute distress 08/28/2018 None Full Exam - General 1994 Constitutional general appearance Overall: well nourished 08/28/2018 None Full Exam - General 1994 Respiratory auscultation Overall: breath sounds clear bilaterally 08/28/2018 None Full Exam - General 1994 Respiratory respiratory effort/rhythm Overall: no retractions 08/28/2018 None Full Exam - General 1994 Respiratory respiratory effort/rhythm Overall: normal rate 08/28/2018 None Full Exam - General 1994 Cardiovascular auscultation of heart Rate: regular rate 08/28/2018 None Full Exam - General 1994 Integument inspection of skin Location: left foot 08/28/2018 None Full Exam - General 1994 Integument inspection of skin Rash/Lesions: excoriation 08/28/2018 top of left foot, ankle and lower leg Full Exam - General 1994 Integument inspection of skin Pigmentation: erythematous 08/28/2018 None Full Exam - General 1994 Psychiatric orientation/consciousness Overall: oriented to person, place and time 08/28/2018 None Full Exam - General 1994 Constitutional general appearance Overall: well developed 08/21/2018 None Full Exam - General 1994 Constitutional general appearance Overall: in no acute distress 08/21/2018 None Full Exam - General 1994 Constitutional general appearance Overall: well nourished 08/21/2018 None Full Exam - General 1994 Constitutional general appearance Hygiene/Attention to Grooming: good hygiene 08/21/2018 None Full Exam - General 1994 Eyes conjunctiva/eyelids Overall: conjunctiva clear 08/21/2018 None Full Exam - General 1994 Eyes conjunctiva/eyelids Overall: eyelids normal 08/21/2018 None Full Exam - General 1994 Ears/Nose/Throat lips/teeth/gingiva Overall: benign lips 08/21/2018 None Full Exam - General 1994 Ears/Nose/Throat oral cavity/pharynx/larynx Overall: oral mucosa clear 08/21/2018 None Full Exam - General 1994 Ears/Nose/Throat oral cavity/pharynx/larynx Overall: oropharyngeal mucosa clear 08/21/2018 None Full Exam - General 1994 Respiratory auscultation Overall: breath sounds clear bilaterally 08/21/2018 None Full Exam - General 1994 Respiratory respiratory effort/rhythm Overall: no retractions 08/21/2018 None Full Exam - General 1994 Respiratory respiratory effort/rhythm Overall: normal rate 08/21/2018 None Full Exam - General 1994 Cardiovascular auscultation of heart Rate: regular rate 08/21/2018 None Full Exam - General 1994 Cardiovascular auscultation of heart Rhythm: irregular rhythm 08/21/2018 None Full Exam - General 1994 Abdomen abdominal exam Overall: no tenderness 08/21/2018 None Full Exam - General 1994 Abdomen abdominal exam Overall: normal bowel sounds 08/21/2018 None Full Exam - General 1994 Musculoskeletal spine, ribs and pelvis Posture: kyphoscoliosis 08/21/2018 None Full Exam - General 1994 Musculoskeletal gait and station Gait: asymmetric 08/21/2018 None Full Exam - General 1994 Musculoskeletal gait and station Gait: abnormal stride length 08/21/2018 None Full Exam - General 1994 Musculoskeletal gait and station Gait: abnormal heel strike 08/21/2018 None Full Exam - General 1994 Musculoskeletal gait and station Gait: abnormal stance 08/21/2018 None Full Exam - General 1994 Musculoskeletal gait and station Gait: abnormal toe off 08/21/2018 None Full Exam - General 1994 Musculoskeletal gait and station Gait: abnormal swing through 08/21/2018 None Full Exam - General 1994 Musculoskeletal gait and station Gait: unable to turn quickly 08/21/2018 None Full Exam - General 1994 Musculoskeletal head and neck Overall: head atraumatic 08/21/2018 None Full Exam - General 1994 Musculoskeletal head and neck Overall: cervical spine benign 08/21/2018 None Full Exam - General 1994 Neurologic cranial nerves Overall: crainial nerves 2 - 12 grossly intact 08/21/2018 None Full Exam - General 1994 Psychiatric orientation/consciousness Overall: oriented to person, place and time 08/21/2018 None Full Exam - General 1994 Psychiatric mood and affect Overall: normal mood and affect 08/21/2018 None Full Exam - General 1994 Musculoskeletal upper extremity Palpation - shoulder: acromioclavicular joint tenderness 08/21/2018 None Full Exam - General 1994 Constitutional general appearance Overall: well developed 06/27/2018 None Full Exam - General 1994 Constitutional general appearance Overall: in no acute distress 06/27/2018 None Full Exam - General 1994 Constitutional general appearance Overall: well nourished 06/27/2018 None Full Exam - General 1994 Respiratory auscultation Overall: breath sounds clear bilaterally 06/27/2018 None Full Exam - General 1994 Respiratory respiratory effort/rhythm Overall: no retractions 06/27/2018 None Full Exam - General 1994 Respiratory respiratory effort/rhythm Overall: normal rate 06/27/2018 None Full Exam - General 1994 Integument inspection of skin Location: face 06/27/2018 None Full Exam - General 1994 Integument inspection of skin Rash/Lesions: patch 06/27/2018 None Full Exam - General 1994 Integument inspection of skin Pigmentation: erythematous 06/27/2018 None Full Exam - General 1994 Psychiatric orientation/consciousness Overall: oriented to person, place and time 06/27/2018 None Full Exam - General 1994 Constitutional general appearance Hygiene/Attention to Grooming: good hygiene 06/27/2018 None Full Exam - General 1994 Eyes conjunctiva/eyelids Overall: conjunctiva clear 06/27/2018 None Full Exam - General 1994 Eyes conjunctiva/eyelids Overall: eyelids normal 06/27/2018 None Full Exam - General 1994 Ears/Nose/Throat lips/teeth/gingiva Overall: benign lips 06/27/2018 None Full Exam - General 1994 Ears/Nose/Throat oral cavity/pharynx/larynx Overall: oral mucosa clear 06/27/2018 None Full Exam - General 1994 Ears/Nose/Throat oral cavity/pharynx/larynx Overall: oropharyngeal mucosa clear 06/27/2018 None Full Exam - General 1994 Abdomen abdominal exam Overall: no tenderness 06/27/2018 None Full Exam - General 1994 Abdomen abdominal exam Overall: normal bowel sounds 06/27/2018 None Full Exam - General 1994 Musculoskeletal lower extremity Inspection - thigh: deformity 06/27/2018 atrophy Full Exam - General 1994 Musculoskeletal lower extremity Palpation - thigh: normal on palpation 06/27/2018 None Full Exam - General 1994 Musculoskeletal lower extremity Inspection - lower leg: deformity 06/27/2018 None Full Exam - General 1994 Musculoskeletal spine, ribs and pelvis Posture: kyphoscoliosis 06/27/2018 None Full Exam - General 1994 Musculoskeletal gait and station Gait: asymmetric 06/27/2018 None Full Exam - General 1994 Musculoskeletal gait and station Gait: abnormal stride length 06/27/2018 None Full Exam - General 1994 Musculoskeletal gait and station Gait: abnormal heel strike 06/27/2018 None Full Exam - General 1994 Musculoskeletal gait and station Gait: abnormal stance 06/27/2018 None Full Exam - General 1994 Musculoskeletal gait and station Gait: abnormal toe off 06/27/2018 None Full Exam - General 1994 Musculoskeletal gait and station Gait: abnormal swing through 06/27/2018 None Full Exam - General 1994 Musculoskeletal gait and station Gait: unable to turn quickly 06/27/2018 None Full Exam - General 1994 Musculoskeletal head and neck Overall: head atraumatic 06/27/2018 None Full Exam - General 1994 Musculoskeletal head and neck Overall: cervical spine benign 06/27/2018 None Full Exam - General 1994 Neurologic cranial nerves Overall: crainial nerves 2 - 12 grossly intact 06/27/2018 None Full Exam - General 1994 Psychiatric mood and affect Overall: normal mood and affect 06/27/2018 None Full Exam - Cardiology Cardiovascular auscultation of heart Overall: regular rate 06/27/2018 None Full Exam - Cardiology Cardiovascular auscultation of heart Overall: normal heart sounds 06/27/2018 None Full Exam - General 1994 Constitutional general appearance Overall: well developed 04/20/2018 None Full Exam - General 1994 Constitutional general appearance Overall: in no acute distress 04/20/2018 None Full Exam - General 1994 Constitutional general appearance Overall: well nourished 04/20/2018 None Full Exam - General 1994 Eyes conjunctiva/eyelids Overall: conjunctiva clear 04/20/2018 None Full Exam - General 1994 Eyes conjunctiva/eyelids Overall: eyelids normal 04/20/2018 None Full Exam - General 1994 Respiratory respiratory effort/rhythm Overall: no retractions 04/20/2018 None Full Exam - General 1994 Respiratory respiratory effort/rhythm Overall: normal rate 04/20/2018 None Full Exam - General 1994 Cardiovascular auscultation of heart Rate: regular rate 04/20/2018 None Full Exam - General 1994 Abdomen abdominal exam Overall: no tenderness 04/20/2018 None Full Exam - General 1994 Abdomen abdominal exam Overall: normal bowel sounds 04/20/2018 None Full Exam - General 1994 Musculoskeletal lower extremity Inspection - thigh: deformity 04/20/2018 atrophy Full Exam - General 1994 Musculoskeletal lower extremity Inspection - lower leg: deformity 04/20/2018 atrophies calf muscles - pt with braces on lower legs/supportive shoes Full Exam - General 1994 Musculoskeletal gait and station Gait: asymmetric 04/20/2018 None Full Exam - General 1994 Musculoskeletal gait and station Gait: abnormal stride length 04/20/2018 None Full Exam - General 1994 Musculoskeletal gait and station Gait: abnormal stance 04/20/2018 None Full Exam - General 1994 Musculoskeletal gait and station Gait: unable to turn quickly 04/20/2018 None Full Exam - General 1994 Musculoskeletal head and neck Overall: head atraumatic 04/20/2018 None Full Exam - General 1994 Musculoskeletal head and neck Overall: cervical spine benign 04/20/2018 None Full Exam - General 1994 Neurologic cranial nerves Overall: crainial nerves 2 - 12 grossly intact 04/20/2018 None Full Exam - General 1994 Psychiatric orientation/consciousness Overall: oriented to person, place and time 04/20/2018 None Full Exam - General 1994 Psychiatric mood and affect Overall: normal mood and affect 04/20/2018 None Full Exam - General 1994 Constitutional general appearance Hygiene/Attention to Grooming: good hygiene 04/20/2018 None Full Exam - General 1994 Ears/Nose/Throat lips/teeth/gingiva Overall: benign lips 04/20/2018 None Full Exam - General 1994 Ears/Nose/Throat oral cavity/pharynx/larynx Overall: oral mucosa clear 04/20/2018 None Full Exam - General 1994 Ears/Nose/Throat oral cavity/pharynx/larynx Overall: oropharyngeal mucosa clear 04/20/2018 None Full Exam - General 1994 Respiratory auscultation Overall: breath sounds clear bilaterally 04/20/2018 None Full Exam - General 1994 Cardiovascular auscultation of heart Rhythm: irregular rhythm 04/20/2018 None Full Exam - General 1994 Musculoskeletal lower extremity Palpation - thigh: normal on palpation 04/20/2018 None Full Exam - General 1994 Musculoskeletal lower extremity Palpation - knee: crepitus 04/20/2018 None Full Exam - General 1994 Musculoskeletal spine, ribs and pelvis Posture: kyphoscoliosis 04/20/2018 None Full Exam - General 1994 Musculoskeletal gait and station Gait: abnormal heel strike 04/20/2018 None Full Exam - General 1994 Musculoskeletal gait and station Gait: abnormal toe off 04/20/2018 None Full Exam - General 1994 Musculoskeletal gait and station Gait: abnormal swing through 04/20/2018 None Full Exam - General 1994 Constitutional general appearance Overall: well developed 03/21/2018 None Full Exam - General 1994 Constitutional general appearance Overall: in no acute distress 03/21/2018 None Full Exam - General 1994 Constitutional general appearance Overall: well nourished 03/21/2018 None Full Exam - General 1994 Constitutional general appearance Hygiene/Attention to Grooming: good hygiene 03/21/2018 None Full Exam - General 1994 Eyes conjunctiva/eyelids Overall: conjunctiva clear 03/21/2018 None Full Exam - General 1994 Eyes conjunctiva/eyelids Overall: eyelids normal 03/21/2018 None Full Exam - General 1994 Ears/Nose/Throat lips/teeth/gingiva Overall: benign lips 03/21/2018 None Full Exam - General 1994 Ears/Nose/Throat oral cavity/pharynx/larynx Overall: oral mucosa clear 03/21/2018 None Full Exam - General 1994 Ears/Nose/Throat oral cavity/pharynx/larynx Overall: oropharyngeal mucosa clear 03/21/2018 None Full Exam - General 1994 Respiratory auscultation Overall: breath sounds clear bilaterally 03/21/2018 None Full Exam - General 1994 Respiratory respiratory effort/rhythm Overall: no retractions 03/21/2018 None Full Exam - General 1994 Respiratory respiratory effort/rhythm Overall: normal rate 03/21/2018 None Full Exam - General 1994 Cardiovascular auscultation of heart Rate: regular rate 03/21/2018 None Full Exam - General 1994 Cardiovascular auscultation of heart Rhythm: irregular rhythm 03/21/2018 None Full Exam - General 1994 Musculoskeletal lower extremity Inspection - thigh: deformity 03/21/2018 atrophy Full Exam - General 1994 Musculoskeletal lower extremity Palpation - thigh: normal on palpation 03/21/2018 None Full Exam - General 1994 Musculoskeletal lower extremity Palpation - knee: crepitus 03/21/2018 None Full Exam - General 1994 Musculoskeletal lower extremity Inspection - lower leg: deformity 03/21/2018 atrophies calf muscles - pt with braces on lower legs/supportive shoes Full Exam - General 1994 Musculoskeletal spine, ribs and pelvis Posture: kyphoscoliosis 03/21/2018 None Full Exam - General 1994 Musculoskeletal gait and station Gait: asymmetric 03/21/2018 None Full Exam - General 1994 Musculoskeletal gait and station Gait: abnormal stride length 03/21/2018 None Full Exam - General 1994 Musculoskeletal gait and station Gait: abnormal heel strike 03/21/2018 None Full Exam - General 1994 Musculoskeletal gait and station Gait: abnormal stance 03/21/2018 None Full Exam - General 1994 Musculoskeletal gait and station Gait: abnormal toe off 03/21/2018 None Full Exam - General 1994 Musculoskeletal gait and station Gait: abnormal swing through 03/21/2018 None Full Exam - General 1994 Musculoskeletal gait and station Gait: unable to turn quickly 03/21/2018 None Full Exam - General 1994 Musculoskeletal head and neck Overall: head atraumatic 03/21/2018 None Full Exam - General 1994 Musculoskeletal head and neck Overall: cervical spine benign 03/21/2018 None Full Exam - General 1994 Neurologic cranial nerves Overall: crainial nerves 2 - 12 grossly intact 03/21/2018 None Full Exam - General 1994 Psychiatric orientation/consciousness Overall: oriented to person, place and time 03/21/2018 None Full Exam - General 1994 Psychiatric mood and affect Overall: normal mood and affect 03/21/2018 None Full Exam - General 1994 Constitutional general appearance Overall: well developed 02/08/2018 None Full Exam - General 1994 Constitutional general appearance Overall: in no acute distress 02/08/2018 None Full Exam - General 1994 Constitutional general appearance Overall: well nourished 02/08/2018 None Full Exam - General 1994 Eyes conjunctiva/eyelids Overall: conjunctiva clear 02/08/2018 None Full Exam - General 1994 Eyes conjunctiva/eyelids Overall: eyelids normal 02/08/2018 None Full Exam - General 1994 Ears/Nose/Throat otoscopic exam Overall: external auditory canals clear 02/08/2018 None Full Exam - General 1994 Ears/Nose/Throat otoscopic exam Tympanic membrane: air-fluid level 02/08/2018 None Full Exam - General 1994 Ears/Nose/Throat lips/teeth/gingiva Overall: benign lips 02/08/2018 None Full Exam - General 1994 Ears/Nose/Throat oral cavity/pharynx/larynx Overall: oral mucosa clear 02/08/2018 None Full Exam - General 1994 Ears/Nose/Throat oral cavity/pharynx/larynx Posterior Pharynx: clear post nasal drainage 02/08/2018 None Full Exam - General 1994 Respiratory auscultation Diffuse: diminished 02/08/2018 None Full Exam - General 1994 Respiratory auscultation Lower lung field: expiratory wheezes 02/08/2018 None Full Exam - General 1994 Respiratory respiratory effort/rhythm Overall: no retractions 02/08/2018 None Full Exam - General 1994 Respiratory respiratory effort/rhythm Overall: normal rate 02/08/2018 None Full Exam - General 1994 Cardiovascular auscultation of heart Overall: regular rate 02/08/2018 None Full Exam - General 1994 Lymphatic neck nodes Overall: anterior cervical chain benign 02/08/2018 None Full Exam - General 1994 Lymphatic neck nodes Overall: posterior cervical chain benign 02/08/2018 None Full Exam - General 1994 Integument inspection of skin Overall: few scattered moles, no gross abnormalities 02/08/2018 None Full Exam - General 1994 Neurologic cranial nerves Overall: crainial nerves 2 - 12 grossly intact 02/08/2018 None Full Exam - General 1994 Psychiatric orientation/consciousness Overall: oriented to person, place and time 02/08/2018 None Full Exam - General 1994 Psychiatric mood and affect Overall: normal mood and affect 02/08/2018 None Full Exam - General 1994 Musculoskeletal gait and station Gait: asymmetric 02/08/2018 None Full Exam - General 1994 Musculoskeletal gait and station Gait: abnormal stride length 02/08/2018 None Full Exam - General 1994 Musculoskeletal gait and station Gait: abnormal stance 02/08/2018 None Full Exam - General 1994 Musculoskeletal gait and station Gait: unable to turn quickly 02/08/2018 None Full Exam - General 1994 Constitutional general appearance Overall: well developed 12/27/2017 None Full Exam - General 1994 Constitutional general appearance Overall: in no acute distress 12/27/2017 None Full Exam - General 1994 Constitutional general appearance Overall: well nourished 12/27/2017 None Full Exam - General 1994 Eyes conjunctiva/eyelids Overall: conjunctiva clear 12/27/2017 None Full Exam - General 1994 Eyes conjunctiva/eyelids Overall: eyelids normal 12/27/2017 None Full Exam - General 1994 Respiratory respiratory effort/rhythm Overall: no retractions 12/27/2017 None Full Exam - General 1994 Respiratory respiratory effort/rhythm Overall: normal rate 12/27/2017 None Full Exam - General 1994 Cardiovascular auscultation of heart Rate: regular rate 12/27/2017 None Full Exam - General 1994 Abdomen abdominal exam Overall: no tenderness 12/27/2017 None Full Exam - General 1994 Abdomen abdominal exam Overall: normal bowel sounds 12/27/2017 None Full Exam - General 1994 Musculoskeletal gait and station Gait: asymmetric 12/27/2017 None Full Exam - General 1994 Musculoskeletal gait and station Gait: abnormal stride length 12/27/2017 None Full Exam - General 1994 Musculoskeletal gait and station Gait: abnormal stance 12/27/2017 None Full Exam - General 1994 Musculoskeletal gait and station Gait: unable to turn quickly 12/27/2017 None Full Exam - General 1994 Musculoskeletal head and neck Overall: head atraumatic 12/27/2017 None Full Exam - General 1994 Musculoskeletal head and neck Overall: cervical spine benign 12/27/2017 None Full Exam - General 1994 Neurologic cranial nerves Overall: crainial nerves 2 - 12 grossly intact 12/27/2017 None Full Exam - General 1994 Psychiatric orientation/consciousness Overall: oriented to person, place and time 12/27/2017 None Full Exam - General 1994 Psychiatric mood and affect Overall: normal mood and affect 12/27/2017 None Full Exam - General 1994 Constitutional general appearance Overall: well developed 12/06/2017 None Full Exam - General 1994 Constitutional general appearance Overall: in no acute distress 12/06/2017 None Full Exam - General 1994 Constitutional general appearance Overall: well nourished 12/06/2017 None Full Exam - General 1994 Eyes conjunctiva/eyelids Overall: conjunctiva clear 12/06/2017 None Full Exam - General 1994 Eyes conjunctiva/eyelids Overall: eyelids normal 12/06/2017 None Full Exam - General 1994 Respiratory respiratory effort/rhythm Overall: no retractions 12/06/2017 None Full Exam - General 1994 Respiratory respiratory effort/rhythm Overall: normal rate 12/06/2017 None Full Exam - General 1994 Cardiovascular auscultation of heart Rate: regular rate 12/06/2017 None Full Exam - General 1994 Musculoskeletal lower extremity Inspection - thigh: deformity 12/06/2017 atrophy Full Exam - General 1994 Musculoskeletal lower extremity Inspection - lower leg: deformity 12/06/2017 atrophies calf muscles - pt with braces on lower legs/supportive shoes Full Exam - General 1994 Musculoskeletal gait and station Gait: asymmetric 12/06/2017 None Full Exam - General 1994 Musculoskeletal gait and station Gait: abnormal stride length 12/06/2017 None Full Exam - General 1994 Musculoskeletal gait and station Gait: abnormal stance 12/06/2017 None Full Exam - General 1994 Musculoskeletal gait and station Gait: unable to turn quickly 12/06/2017 None Full Exam - General 1994 Musculoskeletal head and neck Overall: head atraumatic 12/06/2017 None Full Exam - General 1994 Musculoskeletal head and neck Overall: cervical spine benign 12/06/2017 None Full Exam - General 1994 Integument inspection of skin Location: left foot 12/06/2017 None Full Exam - General 1994 Integument inspection of skin Rash/Lesions: patch 12/06/2017 None Full Exam - General 1994 Integument inspection of skin Pigmentation: erythematous 12/06/2017 None Full Exam - General 1994 Neurologic cranial nerves Overall: crainial nerves 2 - 12 grossly intact 12/06/2017 None Full Exam - General 1994 Psychiatric orientation/consciousness Overall: oriented to person, place and time 12/06/2017 None Full Exam - General 1994 Psychiatric mood and affect Overall: normal mood and affect 12/06/2017 None Full Exam - General 1994 Abdomen abdominal exam Overall: no tenderness 12/06/2017 None Full Exam - General 1994 Abdomen abdominal exam Overall: normal bowel sounds 12/06/2017 None Full Exam - General 1994 Constitutional general appearance Overall: well developed 09/07/2017 None Full Exam - General 1994 Constitutional general appearance Overall: in no acute distress 09/07/2017 None Full Exam - General 1994 Constitutional general appearance Overall: well nourished 09/07/2017 None Full Exam - General 1994 Constitutional general appearance Hygiene/Attention to Grooming: good hygiene 09/07/2017 None Full Exam - General 1994 Eyes conjunctiva/eyelids Overall: conjunctiva clear 09/07/2017 None Full Exam - General 1994 Eyes conjunctiva/eyelids Overall: eyelids normal 09/07/2017 None Full Exam - General 1994 Ears/Nose/Throat lips/teeth/gingiva Overall: benign lips 09/07/2017 None Full Exam - General 1994 Ears/Nose/Throat oral cavity/pharynx/larynx Overall: oral mucosa clear 09/07/2017 None Full Exam - General 1994 Ears/Nose/Throat oral cavity/pharynx/larynx Overall: oropharyngeal mucosa clear 09/07/2017 None Full Exam - General 1994 Respiratory auscultation Overall: breath sounds clear bilaterally 09/07/2017 None Full Exam - General 1994 Respiratory respiratory effort/rhythm Overall: no retractions 09/07/2017 None Full Exam - General 1994 Respiratory respiratory effort/rhythm Overall: normal rate 09/07/2017 None Full Exam - General 1994 Cardiovascular auscultation of heart Rate: regular rate 09/07/2017 None Full Exam - General 1994 Cardiovascular auscultation of heart Rhythm: irregular rhythm 09/07/2017 None Full Exam - General 1994 Musculoskeletal lower extremity Inspection - thigh: deformity 09/07/2017 atrophy Full Exam - General 1994 Musculoskeletal lower extremity Palpation - thigh: normal on palpation 09/07/2017 None Full Exam - General 1994 Musculoskeletal lower extremity Palpation - knee: crepitus 09/07/2017 None Full Exam - General 1994 Musculoskeletal lower extremity Inspection - lower leg: deformity 09/07/2017 atrophies calf muscles - pt with braces on lower legs/supportive shoes Full Exam - General 1994 Musculoskeletal spine, ribs and pelvis Posture: kyphoscoliosis 09/07/2017 None Full Exam - General 1995 Musculoskeletal gait and station Gait: asymmetric 09/07/2017 None Full Exam - General 1994 Musculoskeletal gait and station Gait: abnormal stride length 09/07/2017 None Full Exam - General 1994 Musculoskeletal gait and station Gait: abnormal heel strike 09/07/2017 None Full Exam - General 1994 Musculoskeletal gait and station Gait: abnormal stance 09/07/2017 None Full Exam - General 1994 Musculoskeletal gait and station Gait: abnormal toe off 09/07/2017 None Full Exam - General 1994 Musculoskeletal gait and station Gait: abnormal swing through 09/07/2017 None Full Exam - General 1994 Musculoskeletal gait and station Gait: unable to turn quickly 09/07/2017 None Full Exam - General 1994 Musculoskeletal head and neck Overall: head atraumatic 09/07/2017 None Full Exam - General 1994 Musculoskeletal head and neck Overall: cervical spine benign 09/07/2017 None Full Exam - General 1994 Neurologic cranial nerves Overall: crainial nerves 2 - 12 grossly intact 09/07/2017 None Full Exam - General 1994 Psychiatric orientation/consciousness Overall: oriented to person, place and time 09/07/2017 None Full Exam - General 1994 Psychiatric mood and affect Overall: normal mood and affect 09/07/2017 None Full Exam - General 1994 Abdomen abdominal exam Overall: no tenderness 09/07/2017 None Full Exam - General 1994 Abdomen abdominal exam Overall: normal bowel sounds 09/07/2017 None Full Exam - General 1994 Constitutional general appearance Overall: well developed 06/07/2017 None Full Exam - General 1994 Constitutional general appearance Overall: in no acute distress 06/07/2017 None Full Exam - General 1994 Constitutional general appearance Overall: well nourished 06/07/2017 None Full Exam - General 1994 Eyes conjunctiva/eyelids Overall: conjunctiva clear 06/07/2017 None Full Exam - General 1994 Eyes conjunctiva/eyelids Overall: eyelids normal 06/07/2017 None Full Exam - General 1994 Respiratory respiratory effort/rhythm Overall: no retractions 06/07/2017 None Full Exam - General 1994 Respiratory respiratory effort/rhythm Overall: normal rate 06/07/2017 None Full Exam - General 1994 Cardiovascular auscultation of heart Rate: regular rate 06/07/2017 None Full Exam - General 1995 Musculoskeletal lower extremity Inspection - thigh: deformity 06/07/2017 atrophy Full Exam - General 1995 Musculoskeletal lower extremity Inspection - lower leg: deformity 06/07/2017 atrophies calf muscles - pt with braces on lower legs/supportive shoes Full Exam - General 1994 Musculoskeletal gait and station Gait: asymmetric 06/07/2017 None Full Exam - General 1994 Musculoskeletal gait and station Gait: abnormal stride length 06/07/2017 None Full Exam - General 1994 Musculoskeletal gait and station Gait: abnormal stance 06/07/2017 None Full Exam - General 1994 Musculoskeletal gait and station Gait: unable to turn quickly 06/07/2017 None Full Exam - General 1994 Musculoskeletal head and neck Overall: head atraumatic 06/07/2017 None Full Exam - General 1994 Musculoskeletal head and neck Overall: cervical spine benign 06/07/2017 None Full Exam - General 1994 Integument inspection of skin Location: left foot 06/07/2017 None Full Exam - General 1994 Integument inspection of skin Rash/Lesions: patch 06/07/2017 None Full Exam - General 1994 Integument inspection of skin Pigmentation: erythematous 06/07/2017 None Full Exam - General 1994 Neurologic cranial nerves Overall: crainial nerves 2 - 12 grossly intact 06/07/2017 None Full Exam - General 1994 Psychiatric orientation/consciousness Overall: oriented to person, place and time 06/07/2017 None Full Exam - General 1994 Psychiatric mood and affect Overall: normal mood and affect 06/07/2017 None Full Exam - General 1994 Ears/Nose/Throat oral cavity/pharynx/larynx Overall: oropharyngeal mucosa clear 06/07/2017 None Full Exam - General 1994 Ears/Nose/Throat oral cavity/pharynx/larynx Overall: no masses 06/07/2017 None Full Exam - General 1994 Ears/Nose/Throat oral cavity/pharynx/larynx Overall: oral mucosa clear 06/07/2017 None Full Exam - General 1994 Constitutional general appearance Overall: well developed 05/19/2017 None Full Exam - General 1994 Constitutional general appearance Overall: in no acute distress 05/19/2017 None Full Exam - General 1994 Constitutional general appearance Overall: well nourished 05/19/2017 None Full Exam - General 1994 Eyes conjunctiva/eyelids Overall: conjunctiva clear 05/19/2017 None Full Exam - General 1994 Eyes conjunctiva/eyelids Overall: eyelids normal 05/19/2017 None Full Exam - General 1994 Respiratory respiratory effort/rhythm Overall: no retractions 05/19/2017 None Full Exam - General 1994 Respiratory respiratory effort/rhythm Overall: normal rate 05/19/2017 None Full Exam - General 1994 Integument inspection of skin Location: left foot 05/19/2017 None Full Exam - General 1994 Integument inspection of skin Rash/Lesions: patch 05/19/2017 None Full Exam - General 1994 Integument inspection of skin Pigmentation: erythematous 05/19/2017 None Full Exam - General 1994 Neurologic cranial nerves Overall: crainial nerves 2 - 12 grossly intact 05/19/2017 None Full Exam - General 1994 Psychiatric orientation/consciousness Overall: oriented to person, place and time 05/19/2017 None Full Exam - General 1994 Psychiatric mood and affect Overall: normal mood and affect 05/19/2017 None Full Exam - General 1994 Cardiovascular auscultation of heart Rate: regular rate 05/19/2017 None Full Exam - General 1994 Musculoskeletal lower extremity Inspection - thigh: deformity 05/19/2017 atrophy Full Exam - General 1994 Musculoskeletal lower extremity Inspection - lower leg: deformity 05/19/2017 atrophies calf muscles - pt with braces on lower legs/supportive shoes Full Exam - General 1994 Musculoskeletal gait and station Gait: asymmetric 05/19/2017 None Full Exam - General 1994 Musculoskeletal gait and station Gait: abnormal stride length 05/19/2017 None Full Exam - General 1994 Musculoskeletal gait and station Gait: abnormal stance 05/19/2017 None Full Exam - General 1994 Musculoskeletal gait and station Gait: unable to turn quickly 05/19/2017 None Full Exam - General 1994 Musculoskeletal head and neck Overall: head atraumatic 05/19/2017 None Full Exam - General 1994 Musculoskeletal head and neck Overall: cervical spine benign 05/19/2017 None Full Exam - General 1994 Constitutional general appearance Overall: well developed 05/09/2017 None Full Exam - General 1994 Constitutional general appearance Overall: in no acute distress 05/09/2017 None Full Exam - General 1994 Constitutional general appearance Overall: well nourished 05/09/2017 None Full Exam - General 1994 Eyes conjunctiva/eyelids Overall: conjunctiva clear 05/09/2017 None Full Exam - General 1994 Eyes conjunctiva/eyelids Overall: eyelids normal 05/09/2017 None Full Exam - General 1994 Respiratory respiratory effort/rhythm Overall: no retractions 05/09/2017 None Full Exam - General 1994 Respiratory respiratory effort/rhythm Overall: normal rate 05/09/2017 None Full Exam - General 1994 Integument inspection of skin Location: left foot 05/09/2017 None Full Exam - General 1994 Integument inspection of skin Rash/Lesions: patch 05/09/2017 --Improved Full Exam - General 1994 Integument inspection of skin Pigmentation: erythematous 05/09/2017 --Improved Full Exam - General 1994 Neurologic cranial nerves Overall: crainial nerves 2 - 12 grossly intact 05/09/2017 None Full Exam - General 1994 Psychiatric orientation/consciousness Overall: oriented to person, place and time 05/09/2017 None Full Exam - General 1994 Psychiatric mood and affect Overall: normal mood and affect 05/09/2017 None Full Exam - General 1994 Constitutional general appearance Overall: well developed 04/25/2017 None Full Exam - General 1994 Constitutional general appearance Overall: in no acute distress 04/25/2017 None Full Exam - General 1994 Constitutional general appearance Overall: well nourished 04/25/2017 None Full Exam - General 1994 Eyes conjunctiva/eyelids Overall: conjunctiva clear 04/25/2017 None Full Exam - General 1994 Eyes conjunctiva/eyelids Overall: eyelids normal 04/25/2017 None Full Exam - General 1994 Respiratory respiratory effort/rhythm Overall: no retractions 04/25/2017 None Full Exam - General 1994 Respiratory respiratory effort/rhythm Overall: normal rate 04/25/2017 None Full Exam - General 1994 Integument inspection of skin Location: left foot 04/25/2017 None Full Exam - General 1994 Integument inspection of skin Rash/Lesions: patch 04/25/2017 None Full Exam - General 1994 Integument inspection of skin Pigmentation: erythematous 04/25/2017 None Full Exam - General 1994 Neurologic cranial nerves Overall: crainial nerves 2 - 12 grossly intact 04/25/2017 None Full Exam - General 1994 Psychiatric orientation/consciousness Overall: oriented to person, place and time 04/25/2017 None Full Exam - General 1994 Psychiatric mood and affect Overall: normal mood and affect 04/25/2017 None Full Exam - General 1994 Constitutional general appearance Overall: well developed 2017 None Full Exam - General 1994 Constitutional general appearance Overall: in no acute distress 2017 None Full Exam - General 1994 Constitutional general appearance Overall: well nourished 2017 None Full Exam - General 1994 Respiratory auscultation Overall: breath sounds clear bilaterally 2017 None Full Exam - General 1994 Respiratory respiratory effort/rhythm Overall: no retractions 2017 None Full Exam - General 1994 Respiratory respiratory effort/rhythm Overall: normal rate 2017 None Full Exam - General 1994 Cardiovascular auscultation of heart Rate: regular rate 2017 None Full Exam - General 1994 Integument inspection of skin Location: face 2017 erythema --Resolved Full Exam - General 1994 Integument inspection of skin Location: left arm 2017 excoriation --Resolved Full Exam - General 1994 Integument inspection of skin Location: right arm 2017 excoriation --Resolved Full Exam - General 1994 Integument inspection of skin Location: left foot 2017 --Improved Full Exam - General 1994 Integument inspection of skin Rash/Lesions: patch 2017 None Full Exam - General 1994 Integument inspection of skin Pigmentation: erythematous 2017 None Full Exam - General 1994 Psychiatric orientation/consciousness Overall: oriented to person, place and time 2017 None Full Exam - General 1994 Constitutional general appearance Overall: well developed 03/29/2017 None Full Exam - General 1994 Constitutional general appearance Overall: in no acute distress 03/29/2017 None Full Exam - General 1994 Constitutional general appearance Overall: well nourished 03/29/2017 None Full Exam - General 1994 Respiratory auscultation Overall: breath sounds clear bilaterally 03/29/2017 None Full Exam - General 1994 Respiratory respiratory effort/rhythm Overall: no retractions 03/29/2017 None Full Exam - General 1994 Respiratory respiratory effort/rhythm Overall: normal rate 03/29/2017 None Full Exam - General 1994 Cardiovascular auscultation of heart Rate: regular rate 03/29/2017 None Full Exam - General 1994 Integument inspection of skin Location: left foot 03/29/2017 None Full Exam - General 1994 Integument inspection of skin Rash/Lesions: patch 03/29/2017 None Full Exam - General 1994 Integument inspection of skin Pigmentation: erythematous 03/29/2017 None Full Exam - General 1994 Psychiatric orientation/consciousness Overall: oriented to person, place and time 03/29/2017 None Full Exam - General 1994 Integument inspection of skin Location: face 03/29/2017 erythema Full Exam - General 1994 Integument inspection of skin Location: left arm 03/29/2017 excoriation Full Exam - General 1994 Integument inspection of skin Location: right arm 03/29/2017 excoriation Full Exam - General 1994 Constitutional general appearance Overall: well developed 03/17/2017 None Full Exam - General 1994 Constitutional general appearance Overall: in no acute distress 03/17/2017 None Full Exam - General 1994 Constitutional general appearance Overall: well nourished 03/17/2017 None Full Exam - General 1994 Respiratory respiratory effort/rhythm Overall: no retractions 03/17/2017 None Full Exam - General 1994 Respiratory respiratory effort/rhythm Overall: normal rate 03/17/2017 None Full Exam - General 1994 Integument inspection of skin Location: left foot 03/17/2017 None Full Exam - General 1994 Integument inspection of skin Rash/Lesions: patch 03/17/2017 None Full Exam - General 1994 Integument inspection of skin Pigmentation: erythematous 03/17/2017 None Full Exam - General 1994 Psychiatric orientation/consciousness Overall: oriented to person, place and time 03/17/2017 None Full Exam - General 1994 Psychiatric mood and affect Overall: normal mood and affect 03/17/2017 None Full Exam - General 1994 Neurologic cranial nerves Overall: crainial nerves 2 - 12 grossly intact 03/17/2017 None Full Exam - General 1994 Eyes conjunctiva/eyelids Overall: conjunctiva clear 03/17/2017 None Full Exam - General 1994 Eyes conjunctiva/eyelids Overall: eyelids normal 03/17/2017 None Full Exam - General 1994 Respiratory auscultation Overall: breath sounds clear bilaterally 03/08/2017 None Full Exam - General 1994 Respiratory respiratory effort/rhythm Overall: no retractions 03/08/2017 None Full Exam - General 1994 Respiratory respiratory effort/rhythm Overall: normal rate 03/08/2017 None Full Exam - General 1994 Cardiovascular auscultation of heart Rate: regular rate 03/08/2017 None Full Exam - General 1994 Constitutional general appearance Overall: well developed 03/08/2017 None Full Exam - General 1994 Constitutional general appearance Overall: in no acute distress 03/08/2017 None Full Exam - General 1994 Constitutional general appearance Overall: well nourished 03/08/2017 None Full Exam - General 1994 Psychiatric orientation/consciousness Overall: oriented to person, place and time 03/08/2017 None Full Exam - General 1994 Integument inspection of skin Location: left foot 03/08/2017 None Full Exam - General 1994 Integument inspection of skin Rash/Lesions: patch 03/08/2017 None Full Exam - General 1994 Integument inspection of skin Pigmentation: erythematous 03/08/2017 None Full Exam - General 1994 Constitutional general appearance Hygiene/Attention to Grooming: good hygiene 02/17/2017 None Full Exam - General 1994 Eyes conjunctiva/eyelids Overall: conjunctiva clear 02/17/2017 None Full Exam - General 1994 Eyes conjunctiva/eyelids Overall: eyelids normal 02/17/2017 None Full Exam - General 1994 Ears/Nose/Throat lips/teeth/gingiva Overall: benign lips 02/17/2017 None Full Exam - General 1994 Ears/Nose/Throat oral cavity/pharynx/larynx Overall: oral mucosa clear 02/17/2017 None Full Exam - General 1994 Ears/Nose/Throat oral cavity/pharynx/larynx Overall: oropharyngeal mucosa clear 02/17/2017 None Full Exam - General 1994 Respiratory auscultation Overall: breath sounds clear bilaterally 02/17/2017 None Full Exam - General 1994 Respiratory respiratory effort/rhythm Overall: no retractions 02/17/2017 None Full Exam - General 1994 Respiratory respiratory effort/rhythm Overall: normal rate 02/17/2017 None Full Exam - General 1994 Cardiovascular auscultation of heart Rate: regular rate 02/17/2017 None Full Exam - General 1994 Cardiovascular auscultation of heart Rhythm: irregular rhythm 02/17/2017 None Full Exam - General 1994 Musculoskeletal lower extremity Inspection - thigh: deformity 02/17/2017 atrophy Full Exam - General 1994 Musculoskeletal lower extremity Palpation - thigh: normal on palpation 02/17/2017 None Full Exam - General 1994 Musculoskeletal lower extremity Palpation - knee: crepitus 02/17/2017 None Full Exam - General 1994 Musculoskeletal lower extremity Inspection - lower leg: deformity 02/17/2017 atrophies calf muscles - pt with braces on lower legs/supportive shoes Full Exam - General 1994 Musculoskeletal spine, ribs and pelvis Posture: kyphoscoliosis 02/17/2017 None Full Exam - General 1994 Musculoskeletal gait and station Gait: asymmetric 02/17/2017 None Full Exam - General 1994 Musculoskeletal gait and station Gait: abnormal stride length 02/17/2017 None Full Exam - General 1994 Musculoskeletal gait and station Gait: abnormal heel strike 02/17/2017 None Full Exam - General 1994 Musculoskeletal gait and station Gait: abnormal stance 02/17/2017 None Full Exam - General 1994 Musculoskeletal gait and station Gait: abnormal toe off 02/17/2017 None Full Exam - General 1994 Musculoskeletal gait and station Gait: abnormal swing through 02/17/2017 None Full Exam - General 1994 Musculoskeletal gait and station Gait: unable to turn quickly 02/17/2017 None Full Exam - General 1994 Musculoskeletal head and neck Overall: head atraumatic 02/17/2017 None Full Exam - General 1994 Musculoskeletal head and neck Overall: cervical spine benign 02/17/2017 None Full Exam - General 1994 Neurologic cranial nerves Overall: crainial nerves 2 - 12 grossly intact 02/17/2017 None Full Exam - General 1994 Psychiatric orientation/consciousness Overall: oriented to person, place and time 02/17/2017 None Full Exam - General 1994 Psychiatric mood and affect Overall: normal mood and affect 02/17/2017 None Full Exam - General 1994 Constitutional general appearance Overall: well developed 02/17/2017 None Full Exam - General 1994 Constitutional general appearance Overall: in no acute distress 02/17/2017 None Full Exam - General 1994 Constitutional general appearance Overall: well nourished 02/17/2017 None Full Exam - General 1994 Constitutional general appearance Development: well developed 01/18/2017 None Full Exam - General 1994 Constitutional general appearance Development: appears stated age 0801/18/2017 None Full Exam - General 1994 Constitutional general appearance Hygiene/Attention to Grooming: good hygiene 01/18/2017 None Full Exam - General 1994 Eyes conjunctiva/eyelids Overall: conjunctiva clear 01/18/2017 None Full Exam - General 1994 Eyes conjunctiva/eyelids Overall: cornea clear 01/18/2017 None Full Exam - General 1994 Eyes conjunctiva/eyelids Overall: eyelids normal 01/18/2017 None Full Exam - General 1994 Eyes pupils and irises Overall: pupils equal, round, reactive to light and accomodation 01/18/2017 None Full Exam - General 1994 Ears/Nose/Throat otoscopic exam Overall: external auditory canals clear 01/18/2017 None Full Exam - General 1994 Ears/Nose/Throat otoscopic exam Overall: tympanic membranes clear 01/18/2017 None Full Exam - General 1994 Ears/Nose/Throat lips/teeth/gingiva Overall: benign lips 01/18/2017 None Full Exam - General 1994 Ears/Nose/Throat lips/teeth/gingiva Overall: normal dentition 01/18/2017 None Full Exam - General 1994 Ears/Nose/Throat oral cavity/pharynx/larynx Overall: oral mucosa clear 01/18/2017 None Full Exam - General 1994 Ears/Nose/Throat oral cavity/pharynx/larynx Overall: oropharyngeal mucosa clear 01/18/2017 None Full Exam - General 1994 Ears/Nose/Throat oral cavity/pharynx/larynx Overall: hypopharynx benign 01/18/2017 None Full Exam - General 1994 Ears/Nose/Throat oral cavity/pharynx/larynx Overall: no masses 01/18/2017 None Full Exam - General 1994 Respiratory auscultation Overall: breath sounds clear bilaterally 01/18/2017 None Full Exam - General 1994 Respiratory respiratory effort/rhythm Overall: no retractions 01/18/2017 None Full Exam - General 1994 Respiratory respiratory effort/rhythm Overall: normal rate 01/18/2017 None Full Exam - General 1994 Cardiovascular inspection of carotid pulses Carotid pulse: carotid bruit 01/18/2017 None Full Exam - General 1994 Cardiovascular extremities Overall: no clubbing 01/18/2017 None Full Exam - General 1994 Cardiovascular auscultation of heart Rate: regular rate 01/18/2017 None Full Exam - General 1994 Cardiovascular auscultation of heart Rhythm: irregular rhythm 01/18/2017 None Full Exam - General 1994 Abdomen abdominal exam Overall: no tenderness 01/18/2017 None Full Exam - General 1994 Abdomen abdominal exam Overall: normal bowel sounds 01/18/2017 None Full Exam - General 1994 Lymphatic neck nodes Overall: anterior cervical chain benign 01/18/2017 None Full Exam - General 1994 Lymphatic neck nodes Overall: posterior cervical chain benign 01/18/2017 None Full Exam - General 1994 Musculoskeletal lower extremity Inspection - thigh: deformity 01/18/2017 atrophy Full Exam - General 1994 Musculoskeletal lower extremity Palpation - thigh: normal on palpation 01/18/2017 None Full Exam - General 1994 Musculoskeletal lower extremity Palpation - knee: crepitus 01/18/2017 None Full Exam - General 1994 Musculoskeletal lower extremity Inspection - lower leg: deformity 01/18/2017 atrophies calf muscles - pt with braces on lower legs/supportive shoes Full Exam - General 1994 Musculoskeletal spine, ribs and pelvis Posture: kyphoscoliosis 01/18/2017 None Full Exam - General 1994 Musculoskeletal gait and station Gait: asymmetric 01/18/2017 None Full Exam - General 1994 Musculoskeletal gait and station Gait: abnormal stride length 01/18/2017 None Full Exam - General 1994 Musculoskeletal gait and station Gait: abnormal heel strike 01/18/2017 None Full Exam - General 1994 Musculoskeletal gait and station Gait: abnormal stance 01/18/2017 None Full Exam - General 1994 Musculoskeletal gait and station Gait: abnormal toe off 01/18/2017 None Full Exam - General 1994 Musculoskeletal gait and station Gait: abnormal swing through 01/18/2017 None Full Exam - General 1994 Musculoskeletal gait and station Gait: unable to turn quickly 01/18/2017 None Full Exam - General 1994 Musculoskeletal head and neck Overall: head atraumatic 01/18/2017 None Full Exam - General 1994 Musculoskeletal head and neck Overall: cervical spine benign 01/18/2017 None Full Exam - General 1994 Neurologic deep tendon reflexes Overall: deep tendon reflexes intact 01/18/2017 None Full Exam - General 1994 Neurologic cranial nerves Overall: crainial nerves 2 - 12 grossly intact 01/18/2017 None Full Exam - General 1994 Psychiatric orientation/consciousness Overall: oriented to person, place and time 01/18/2017 None Full Exam - General 1994 Psychiatric mood and affect Overall: normal mood and affect 01/18/2017 None Full Exam - General 1994 Constitutional general appearance Development: well developed 10/19/2016 None Full Exam - General 1994 Constitutional general appearance Development: appears stated age 0510/19/2016 None Full Exam - General 1994 Constitutional general appearance Hygiene/Attention to Grooming: good hygiene 10/19/2016 None Full Exam - General 1994 Eyes conjunctiva/eyelids Overall: conjunctiva clear 10/19/2016 None Full Exam - General 1994 Eyes conjunctiva/eyelids Overall: cornea clear 10/19/2016 None Full Exam - General 1994 Eyes conjunctiva/eyelids Overall: eyelids normal 10/19/2016 None Full Exam - General 1994 Eyes pupils and irises Overall: pupils equal, round, reactive to light and accomodation 10/19/2016 None Full Exam - General 1994 Ears/Nose/Throat otoscopic exam Overall: external auditory canals clear 10/19/2016 None Full Exam - General 1994 Ears/Nose/Throat otoscopic exam Overall: tympanic membranes clear 10/19/2016 None Full Exam - General 1994 Ears/Nose/Throat lips/teeth/gingiva Overall: benign lips 10/19/2016 None Full Exam - General 1994 Ears/Nose/Throat lips/teeth/gingiva Overall: normal dentition 10/19/2016 None Full Exam - General 1994 Ears/Nose/Throat oral cavity/pharynx/larynx Overall: oral mucosa clear 10/19/2016 None Full Exam - General 1994 Ears/Nose/Throat oral cavity/pharynx/larynx Overall: oropharyngeal mucosa clear 10/19/2016 None Full Exam - General 1994 Ears/Nose/Throat oral cavity/pharynx/larynx Overall: hypopharynx benign 10/19/2016 None Full Exam - General 1994 Ears/Nose/Throat oral cavity/pharynx/larynx Overall: no masses 10/19/2016 None Full Exam - General 1994 Respiratory auscultation Overall: breath sounds clear bilaterally 10/19/2016 None Full Exam - General 1994 Respiratory respiratory effort/rhythm Overall: no retractions 10/19/2016 None Full Exam - General 1994 Respiratory respiratory effort/rhythm Overall: normal rate 10/19/2016 None Full Exam - General 1994 Cardiovascular inspection of carotid pulses Carotid pulse: carotid bruit 10/19/2016 None Full Exam - General 1994 Cardiovascular extremities Overall: no clubbing 10/19/2016 None Full Exam - General 1994 Cardiovascular auscultation of heart Rate: regular rate 10/19/2016 None Full Exam - General 1994 Cardiovascular auscultation of heart Rhythm: irregular rhythm 10/19/2016 None Full Exam - General 1994 Abdomen abdominal exam Overall: no tenderness 10/19/2016 None Full Exam - General 1994 Abdomen abdominal exam Overall: normal bowel sounds 10/19/2016 None Full Exam - General 1994 Lymphatic neck nodes Overall: anterior cervical chain benign 10/19/2016 None Full Exam - General 1994 Lymphatic neck nodes Overall: posterior cervical chain benign 10/19/2016 None Full Exam - General 1994 Musculoskeletal lower extremity Inspection - thigh: deformity 10/19/2016 atrophy Full Exam - General 1994 Musculoskeletal lower extremity Palpation - thigh: normal on palpation 10/19/2016 None Full Exam - General 1994 Musculoskeletal lower extremity Palpation - knee: crepitus 10/19/2016 None Full Exam - General 1994 Musculoskeletal lower extremity Inspection - lower leg: deformity 10/19/2016 atrophies calf muscles - pt with braces on lower legs/supportive shoes Full Exam - General 1994 Musculoskeletal spine, ribs and pelvis Posture: kyphoscoliosis 10/19/2016 None Full Exam - General 1994 Musculoskeletal gait and station Gait: asymmetric 10/19/2016 None Full Exam - General 1994 Musculoskeletal gait and station Gait: abnormal stride length 10/19/2016 None Full Exam - General 1994 Musculoskeletal gait and station Gait: abnormal heel strike 10/19/2016 None Full Exam - General 1994 Musculoskeletal gait and station Gait: abnormal stance 10/19/2016 None Full Exam - General 1994 Musculoskeletal gait and station Gait: abnormal toe off 10/19/2016 None Full Exam - General 1994 Musculoskeletal gait and station Gait: abnormal swing through 10/19/2016 None Full Exam - General 1994 Musculoskeletal gait and station Gait: unable to turn quickly 10/19/2016 None Full Exam - General 1994 Musculoskeletal head and neck Overall: head atraumatic 10/19/2016 None Full Exam - General 1994 Musculoskeletal head and neck Overall: cervical spine benign 10/19/2016 None Full Exam - General 1994 Neurologic deep tendon reflexes Overall: deep tendon reflexes intact 10/19/2016 None Full Exam - General 1994 Neurologic cranial nerves Overall: crainial nerves 2 - 12 grossly intact 10/19/2016 None Full Exam - General 1994 Psychiatric orientation/consciousness Overall: oriented to person, place and time 10/19/2016 None Full Exam - General 1994 Psychiatric mood and affect Overall: normal mood and affect 10/19/2016 None Full Exam - General 1994 Constitutional general appearance Development: well developed 08/17/2016 None Full Exam - General 1994 Constitutional general appearance Development: appears stated age 0308/17/2016 None Full Exam - General 1994 Constitutional general appearance Hygiene/Attention to Grooming: good hygiene 08/17/2016 None Full Exam - General 1994 Eyes conjunctiva/eyelids Overall: conjunctiva clear 08/17/2016 None Full Exam - General 1994 Eyes conjunctiva/eyelids Overall: cornea clear 08/17/2016 None Full Exam - General 1994 Eyes conjunctiva/eyelids Overall: eyelids normal 08/17/2016 None Full Exam - General 1994 Eyes pupils and irises Overall: pupils equal, round, reactive to light and accomodation 08/17/2016 None Full Exam - General 1994 Ears/Nose/Throat otoscopic exam Overall: external auditory canals clear 08/17/2016 None Full Exam - General 1994 Ears/Nose/Throat otoscopic exam Overall: tympanic membranes clear 08/17/2016 None Full Exam - General 1994 Ears/Nose/Throat lips/teeth/gingiva Overall: benign lips 08/17/2016 None Full Exam - General 1994 Ears/Nose/Throat lips/teeth/gingiva Overall: normal dentition 08/17/2016 None Full Exam - General 1994 Ears/Nose/Throat oral cavity/pharynx/larynx Overall: oral mucosa clear 08/17/2016 None Full Exam - General 1994 Ears/Nose/Throat oral cavity/pharynx/larynx Overall: oropharyngeal mucosa clear 08/17/2016 None Full Exam - General 1994 Ears/Nose/Throat oral cavity/pharynx/larynx Overall: no masses 08/17/2016 None Full Exam - General 1994 Respiratory auscultation Overall: breath sounds clear bilaterally 08/17/2016 None Full Exam - General 1994 Respiratory respiratory effort/rhythm Overall: no retractions 08/17/2016 None Full Exam - General 1994 Respiratory respiratory effort/rhythm Overall: normal rate 08/17/2016 None Full Exam - General 1994 Cardiovascular extremities Overall: no clubbing 08/17/2016 None Full Exam - General 1994 Cardiovascular auscultation of heart Rate: regular rate 08/17/2016 None Full Exam - General 1994 Cardiovascular auscultation of heart Rhythm: irregular rhythm 08/17/2016 None Full Exam - General 1994 Abdomen abdominal exam Overall: no tenderness 08/17/2016 None Full Exam - General 1994 Abdomen abdominal exam Overall: normal bowel sounds 08/17/2016 None Full Exam - General 1994 Lymphatic neck nodes Overall: anterior cervical chain benign 08/17/2016 None Full Exam - General 1994 Lymphatic neck nodes Overall: posterior cervical chain benign 08/17/2016 None Full Exam - General 1994 Musculoskeletal spine, ribs and pelvis Posture: kyphoscoliosis 08/17/2016 None Full Exam - General 1994 Musculoskeletal gait and station Gait: asymmetric 08/17/2016 None Full Exam - General 1994 Musculoskeletal gait and station Gait: abnormal stride length 08/17/2016 None Full Exam - General 1994 Musculoskeletal gait and station Gait: abnormal heel strike 08/17/2016 None Full Exam - General 1994 Musculoskeletal gait and station Gait: abnormal stance 08/17/2016 None Full Exam - General 1994 Musculoskeletal gait and station Gait: abnormal toe off 08/17/2016 None Full Exam - General 1994 Musculoskeletal gait and station Gait: abnormal swing through 08/17/2016 None Full Exam - General 1994 Musculoskeletal gait and station Gait: unable to turn quickly 08/17/2016 None Full Exam - General 1994 Musculoskeletal head and neck Overall: head atraumatic 08/17/2016 None Full Exam - General 1994 Musculoskeletal head and neck Overall: cervical spine benign 08/17/2016 None Full Exam - General 1994 Neurologic cranial nerves Overall: crainial nerves 2 - 12 grossly intact 08/17/2016 None Full Exam - General 1994 Psychiatric orientation/consciousness Overall: oriented to person, place and time 08/17/2016 None Full Exam - General 1994 Psychiatric mood and affect Overall: normal mood and affect 08/17/2016 None Full Exam - General 1994 Psychiatric appearance Overall: well-groomed, good eye contact 08/17/2016 None Full Exam - General 1994 Integument inspection of skin Location: shoulder 08/17/2016 sutures x 3 sites d/i left shoulder Full Exam - General 1994 Integument inspection of skin Location: face 08/17/2016 red patch-cheeks, chin, forehead-dry, flaky Full Exam - General 1994 Constitutional general appearance Development: well developed 07/20/2016 None Full Exam - General 1994 Constitutional general appearance Development: appears stated age 0207/20/2016 None Full Exam - General 1994 Constitutional general appearance Hygiene/Attention to Grooming: good hygiene 07/20/2016 None Full Exam - General 1994 Eyes conjunctiva/eyelids Overall: conjunctiva clear 07/20/2016 None Full Exam - General 1994 Eyes conjunctiva/eyelids Overall: cornea clear 07/20/2016 None Full Exam - General 1994 Eyes conjunctiva/eyelids Overall: eyelids normal 07/20/2016 None Full Exam - General 1994 Eyes pupils and irises Overall: pupils equal, round, reactive to light and accomodation 07/20/2016 None Full Exam - General 1994 Ears/Nose/Throat otoscopic exam Overall: external auditory canals clear 07/20/2016 None Full Exam - General 1994 Ears/Nose/Throat otoscopic exam Overall: tympanic membranes clear 07/20/2016 None Full Exam - General 1994 Ears/Nose/Throat lips/teeth/gingiva Overall: benign lips 07/20/2016 None Full Exam - General 1994 Ears/Nose/Throat lips/teeth/gingiva Overall: normal dentition 07/20/2016 None Full Exam - General 1994 Ears/Nose/Throat oral cavity/pharynx/larynx Overall: oral mucosa clear 07/20/2016 None Full Exam - General 1994 Ears/Nose/Throat oral cavity/pharynx/larynx Overall: oropharyngeal mucosa clear 07/20/2016 None Full Exam - General 1994 Ears/Nose/Throat oral cavity/pharynx/larynx Overall: no masses 07/20/2016 None Full Exam - General 1994 Respiratory auscultation Overall: breath sounds clear bilaterally 07/20/2016 None Full Exam - General 1994 Respiratory respiratory effort/rhythm Overall: no retractions 07/20/2016 None Full Exam - General 1994 Respiratory respiratory effort/rhythm Overall: normal rate 07/20/2016 None Full Exam - General 1994 Cardiovascular extremities Overall: no clubbing 07/20/2016 None Full Exam - General 1994 Cardiovascular auscultation of heart Rate: regular rate 07/20/2016 None Full Exam - General 1994 Cardiovascular auscultation of heart Rhythm: irregular rhythm 07/20/2016 None Full Exam - General 1994 Abdomen abdominal exam Overall: no tenderness 07/20/2016 None Full Exam - General 1994 Abdomen abdominal exam Overall: normal bowel sounds 07/20/2016 None Full Exam - General 1994 Lymphatic neck nodes Overall: anterior cervical chain benign 07/20/2016 None Full Exam - General 1994 Lymphatic neck nodes Overall: posterior cervical chain benign 07/20/2016 None Full Exam - General 1994 Musculoskeletal lower extremity Inspection - thigh: deformity 07/20/2016 atrophy Full Exam - General 1994 Musculoskeletal lower extremity Palpation - thigh: normal on palpation 07/20/2016 None Full Exam - General 1994 Musculoskeletal lower extremity Palpation - knee: crepitus 07/20/2016 None Full Exam - General 1994 Musculoskeletal lower extremity Inspection - lower leg: deformity 07/20/2016 atrophies calf muscles - pt with braces on lower legs/supportive shoes Full Exam - General 1994 Musculoskeletal spine, ribs and pelvis Posture: kyphoscoliosis 07/20/2016 None Full Exam - General 1994 Musculoskeletal gait and station Gait: asymmetric 07/20/2016 None Full Exam - General 1994 Musculoskeletal gait and station Gait: abnormal stride length 07/20/2016 None Full Exam - General 1994 Musculoskeletal gait and station Gait: abnormal heel strike 07/20/2016 None Full Exam - General 1994 Musculoskeletal gait and station Gait: abnormal stance 07/20/2016 None Full Exam - General 1994 Musculoskeletal gait and station Gait: abnormal toe off 07/20/2016 None Full Exam - General 1994 Musculoskeletal gait and station Gait: abnormal swing through 07/20/2016 None Full Exam - General 1994 Musculoskeletal gait and station Gait: unable to turn quickly 07/20/2016 None Full Exam - General 1994 Musculoskeletal head and neck Overall: head atraumatic 07/20/2016 None Full Exam - General 1994 Musculoskeletal head and neck Overall: cervical spine benign 07/20/2016 None Full Exam - General 1994 Integument inspection of skin Overall: no rash, lesions 07/20/2016 None Full Exam - General 1994 Neurologic cranial nerves Overall: crainial nerves 2 - 12 grossly intact 07/20/2016 None Full Exam - General 1994 Psychiatric orientation/consciousness Overall: oriented to person, place and time 07/20/2016 None Full Exam - General 1994 Psychiatric mood and affect Overall: normal mood and affect 07/20/2016 None Full Exam - General 1994 Psychiatric appearance Overall: well-groomed, good eye contact 07/20/2016 None Full Exam - General 1994 Constitutional general appearance Development: well developed 04/19/2016 None Full Exam - General 1994 Constitutional general appearance Development: appears stated age 1104/19/2016 None Full Exam - General 1994 Constitutional general appearance Hygiene/Attention to Grooming: good hygiene 04/19/2016 None Full Exam - General 1994 Eyes conjunctiva/eyelids Overall: conjunctiva clear 04/19/2016 None Full Exam - General 1994 Eyes conjunctiva/eyelids Overall: cornea clear 04/19/2016 None Full Exam - General 1994 Eyes conjunctiva/eyelids Overall: eyelids normal 04/19/2016 None Full Exam - General 1994 Eyes pupils and irises Overall: pupils equal, round, reactive to light and accomodation 04/19/2016 None Full Exam - General 1994 Ears/Nose/Throat otoscopic exam Overall: external auditory canals clear 04/19/2016 None Full Exam - General 1994 Ears/Nose/Throat otoscopic exam Overall: tympanic membranes clear 04/19/2016 None Full Exam - General 1994 Ears/Nose/Throat lips/teeth/gingiva Overall: benign lips 04/19/2016 None Full Exam - General 1994 Ears/Nose/Throat lips/teeth/gingiva Overall: normal dentition 04/19/2016 None Full Exam - General 1994 Ears/Nose/Throat oral cavity/pharynx/larynx Overall: oral mucosa clear 04/19/2016 None Full Exam - General 1994 Ears/Nose/Throat oral cavity/pharynx/larynx Overall: oropharyngeal mucosa clear 04/19/2016 None Full Exam - General 1994 Ears/Nose/Throat oral cavity/pharynx/larynx Overall: no masses 04/19/2016 None Full Exam - General 1994 Respiratory auscultation Overall: breath sounds clear bilaterally 04/19/2016 None Full Exam - General 1994 Respiratory respiratory effort/rhythm Overall: no retractions 04/19/2016 None Full Exam - General 1994 Respiratory respiratory effort/rhythm Overall: normal rate 04/19/2016 None Full Exam - General 1994 Cardiovascular extremities Overall: no clubbing 04/19/2016 None Full Exam - General 1994 Cardiovascular auscultation of heart Rate: regular rate 04/19/2016 None Full Exam - General 1994 Cardiovascular auscultation of heart Rhythm: irregular rhythm 04/19/2016 None Full Exam - General 1994 Abdomen abdominal exam Overall: no tenderness 04/19/2016 None Full Exam - General 1994 Abdomen abdominal exam Overall: normal bowel sounds 04/19/2016 None Full Exam - General 1994 Lymphatic neck nodes Overall: anterior cervical chain benign 04/19/2016 None Full Exam - General 1994 Lymphatic neck nodes Overall: posterior cervical chain benign 04/19/2016 None Full Exam - General 1994 Musculoskeletal lower extremity Inspection - thigh: deformity 04/19/2016 atrophy Full Exam - General 1994 Musculoskeletal lower extremity Palpation - thigh: normal on palpation 04/19/2016 None Full Exam - General 1994 Musculoskeletal lower extremity Palpation - knee: crepitus 04/19/2016 None Full Exam - General 1994 Musculoskeletal lower extremity Inspection - lower leg: deformity 04/19/2016 atrophies calf muscles - pt with braces on lower legs/supportive shoes Full Exam - General 1994 Musculoskeletal spine, ribs and pelvis Posture: kyphoscoliosis 04/19/2016 None Full Exam - General 1994 Musculoskeletal gait and station Gait: asymmetric 04/19/2016 None Full Exam - General 1994 Musculoskeletal gait and station Gait: abnormal stride length 04/19/2016 None Full Exam - General 1994 Musculoskeletal gait and station Gait: abnormal heel strike 04/19/2016 None Full Exam - General 1994 Musculoskeletal gait and station Gait: abnormal stance 04/19/2016 None Full Exam - General 1994 Musculoskeletal gait and station Gait: abnormal toe off 04/19/2016 None Full Exam - General 1994 Musculoskeletal gait and station Gait: abnormal swing through 04/19/2016 None Full Exam - General 1994 Musculoskeletal gait and station Gait: unable to turn quickly 04/19/2016 None Full Exam - General 1994 Musculoskeletal head and neck Overall: head atraumatic 04/19/2016 None Full Exam - General 1994 Musculoskeletal head and neck Overall: cervical spine benign 04/19/2016 None Full Exam - General 1994 Integument inspection of skin Overall: no rash, lesions 04/19/2016 None Full Exam - General 1994 Neurologic cranial nerves Overall: crainial nerves 2 - 12 grossly intact 04/19/2016 None Full Exam - General 1994 Psychiatric orientation/consciousness Overall: oriented to person, place and time 04/19/2016 None Full Exam - General 1994 Psychiatric mood and affect Overall: normal mood and affect 04/19/2016 None Full Exam - General 1994 Psychiatric appearance Overall: well-groomed, good eye contact 04/19/2016 None Full Exam - General 1994 Constitutional general appearance Development: well developed 01/19/2016 None Full Exam - General 1994 Constitutional general appearance Development: appears stated age 0801/19/2016 None Full Exam - General 1994 Constitutional general appearance Hygiene/Attention to Grooming: good hygiene 01/19/2016 None Full Exam - General 1994 Eyes conjunctiva/eyelids Overall: conjunctiva clear 01/19/2016 None Full Exam - General 1994 Eyes conjunctiva/eyelids Overall: cornea clear 01/19/2016 None Full Exam - General 1994 Eyes conjunctiva/eyelids Overall: eyelids normal 01/19/2016 None Full Exam - General 1994 Eyes pupils and irises Overall: pupils equal, round, reactive to light and accomodation 01/19/2016 None Full Exam - General 1994 Ears/Nose/Throat lips/teeth/gingiva Overall: benign lips 01/19/2016 None Full Exam - General 1994 Ears/Nose/Throat lips/teeth/gingiva Overall: normal dentition 01/19/2016 None Full Exam - General 1994 Ears/Nose/Throat oral cavity/pharynx/larynx Overall: oral mucosa clear 01/19/2016 None Full Exam - General 1994 Ears/Nose/Throat oral cavity/pharynx/larynx Overall: oropharyngeal mucosa clear 01/19/2016 None Full Exam - General 1994 Ears/Nose/Throat oral cavity/pharynx/larynx Overall: no masses 01/19/2016 None Full Exam - General 1994 Respiratory auscultation Overall: breath sounds clear bilaterally 01/19/2016 None Full Exam - General 1994 Respiratory respiratory effort/rhythm Overall: no retractions 01/19/2016 None Full Exam - General 1994 Respiratory respiratory effort/rhythm Overall: normal rate 01/19/2016 None Full Exam - General 1994 Cardiovascular extremities Overall: no clubbing 01/19/2016 None Full Exam - General 1994 Cardiovascular auscultation of heart Rate: regular rate 01/19/2016 None Full Exam - General 1994 Cardiovascular auscultation of heart Rhythm: irregular rhythm 01/19/2016 None Full Exam - General 1994 Abdomen abdominal exam Overall: no tenderness 01/19/2016 None Full Exam - General 1994 Abdomen abdominal exam Overall: normal bowel sounds 01/19/2016 None Full Exam - General 1994 Lymphatic neck nodes Overall: anterior cervical chain benign 01/19/2016 None Full Exam - General 1994 Lymphatic neck nodes Overall: posterior cervical chain benign 01/19/2016 None Full Exam - General 1994 Musculoskeletal lower extremity Inspection - thigh: deformity 01/19/2016 atrophy Full Exam - General 1994 Musculoskeletal lower extremity Palpation - thigh: normal on palpation 01/19/2016 None Full Exam - General 1994 Musculoskeletal lower extremity Palpation - knee: crepitus 01/19/2016 None Full Exam - General 1994 Musculoskeletal lower extremity Inspection - lower leg: deformity 01/19/2016 atrophies calf muscles - pt with braces on lower legs/supportive shoes Full Exam - General 1994 Musculoskeletal spine, ribs and pelvis Posture: kyphoscoliosis 01/19/2016 None Full Exam - General 1994 Musculoskeletal gait and station Gait: asymmetric 01/19/2016 None Full Exam - General 1994 Musculoskeletal gait and station Gait: abnormal stride length 01/19/2016 None Full Exam - General 1994 Musculoskeletal gait and station Gait: abnormal heel strike 01/19/2016 None Full Exam - General 1994 Musculoskeletal gait and station Gait: abnormal stance 01/19/2016 None Full Exam - General 1994 Musculoskeletal gait and station Gait: abnormal toe off 01/19/2016 None Full Exam - General 1994 Musculoskeletal gait and station Gait: abnormal swing through 01/19/2016 None Full Exam - General 1994 Musculoskeletal gait and station Gait: unable to turn quickly 01/19/2016 None Full Exam - General 1994 Musculoskeletal head and neck Overall: head atraumatic 01/19/2016 None Full Exam - General 1994 Musculoskeletal head and neck Overall: cervical spine benign 01/19/2016 None Full Exam - General 1994 Neurologic cranial nerves Overall: crainial nerves 2 - 12 grossly intact 01/19/2016 None Full Exam - General 1994 Psychiatric orientation/consciousness Overall: oriented to person, place and time 01/19/2016 None Full Exam - General 1994 Psychiatric mood and affect Overall: normal mood and affect 01/19/2016 None Full Exam - General 1994 Ears/Nose/Throat otoscopic exam Overall: tympanic membranes clear 01/19/2016 None Full Exam - General 1994 Ears/Nose/Throat otoscopic exam Overall: external auditory canals clear 01/19/2016 None Full Exam - General 1994 Integument inspection of skin Overall: no rash, lesions 01/19/2016 None Full Exam - General 1994 Psychiatric appearance Overall: well-groomed, good eye contact 01/19/2016 None Full Exam - General 1994 Constitutional general appearance Development: well developed 10/16/2015 None Full Exam - General 1994 Constitutional general appearance Development: appears stated age 0510/16/2015 None Full Exam - General 1994 Constitutional general appearance Hygiene/Attention to Grooming: good hygiene 10/16/2015 None Full Exam - General 1994 Eyes conjunctiva/eyelids Overall: conjunctiva clear 10/16/2015 None Full Exam - General 1994 Eyes conjunctiva/eyelids Overall: cornea clear 10/16/2015 None Full Exam - General 1994 Eyes conjunctiva/eyelids Overall: eyelids normal 10/16/2015 None Full Exam - General 1994 Eyes pupils and irises Overall: pupils equal, round, reactive to light and accomodation 10/16/2015 None Full Exam - General 1994 Ears/Nose/Throat otoscopic exam Overall: external auditory canals clear 10/16/2015 None Full Exam - General 1994 Ears/Nose/Throat otoscopic exam Overall: tympanic membranes clear 10/16/2015 None Full Exam - General 1994 Ears/Nose/Throat lips/teeth/gingiva Overall: benign lips 10/16/2015 None Full Exam - General 1994 Ears/Nose/Throat lips/teeth/gingiva Overall: normal dentition 10/16/2015 None Full Exam - General 1994 Ears/Nose/Throat oral cavity/pharynx/larynx Overall: oral mucosa clear 10/16/2015 None Full Exam - General 1994 Ears/Nose/Throat oral cavity/pharynx/larynx Overall: oropharyngeal mucosa clear 10/16/2015 None Full Exam - General 1994 Ears/Nose/Throat oral cavity/pharynx/larynx Overall: hypopharynx benign 10/16/2015 None Full Exam - General 1994 Ears/Nose/Throat oral cavity/pharynx/larynx Overall: no masses 10/16/2015 None Full Exam - General 1994 Neck thyroid Overall: normal size 10/16/2015 None Full Exam - General 1994 Neck thyroid Overall: nontender 10/16/2015 None Full Exam - General 1994 Respiratory auscultation Overall: breath sounds clear bilaterally 10/16/2015 None Full Exam - General 1994 Respiratory respiratory effort/rhythm Overall: no retractions 10/16/2015 None Full Exam - General 1994 Respiratory respiratory effort/rhythm Overall: normal rate 10/16/2015 None Full Exam - General 1994 Cardiovascular inspection of carotid pulses Carotid pulse: carotid bruit 10/16/2015 None Full Exam - General 1994 Cardiovascular extremities Overall: no clubbing 10/16/2015 None Full Exam - General 1994 Cardiovascular auscultation of heart Rate: regular rate 10/16/2015 None Full Exam - General 1994 Cardiovascular auscultation of heart Rhythm: irregular rhythm 10/16/2015 None Full Exam - General 1994 Abdomen abdominal exam Overall: no tenderness 10/16/2015 None Full Exam - General 1994 Abdomen abdominal exam Overall: normal bowel sounds 10/16/2015 None Full Exam - General 1994 Lymphatic neck nodes Overall: anterior cervical chain benign 10/16/2015 None Full Exam - General 1994 Lymphatic neck nodes Overall: posterior cervical chain benign 10/16/2015 None Full Exam - General 1994 Musculoskeletal lower extremity Inspection - thigh: deformity 10/16/2015 atrophy Full Exam - General 1994 Musculoskeletal lower extremity Palpation - thigh: normal on palpation 10/16/2015 None Full Exam - General 1994 Musculoskeletal lower extremity Palpation - knee: crepitus 10/16/2015 None Full Exam - General 1994 Musculoskeletal lower extremity Inspection - lower leg: deformity 10/16/2015 atrophies calf muscles - pt with braces on lower legs/supportive shoes Full Exam - General 1994 Musculoskeletal spine, ribs and pelvis Posture: kyphoscoliosis 10/16/2015 None Full Exam - General 1994 Musculoskeletal gait and station Gait: asymmetric 10/16/2015 None Full Exam - General 1994 Musculoskeletal gait and station Gait: abnormal stride length 10/16/2015 None Full Exam - General 1994 Musculoskeletal gait and station Gait: abnormal heel strike 10/16/2015 None Full Exam - General 1994 Musculoskeletal gait and station Gait: abnormal stance 10/16/2015 None Full Exam - General 1994 Musculoskeletal gait and station Gait: abnormal toe off 10/16/2015 None Full Exam - General 1994 Musculoskeletal gait and station Gait: abnormal swing through 10/16/2015 None Full Exam - General 1994 Musculoskeletal gait and station Gait: unable to turn quickly 10/16/2015 None Full Exam - General 1994 Musculoskeletal head and neck Overall: head atraumatic 10/16/2015 None Full Exam - General 1994 Musculoskeletal head and neck Overall: cervical spine benign 10/16/2015 None Full Exam - General 1994 Integument inspection of skin Overall: few scattered moles, no gross abnormalities 10/16/2015 - pt has some evidence of seborrhea on face at eyebrows - Full Exam - General 1994 Neurologic deep tendon reflexes Overall: deep tendon reflexes intact 10/16/2015 None Full Exam - General 1994 Neurologic cranial nerves Overall: crainial nerves 2 - 12 grossly intact 10/16/2015 None Full Exam - General 1994 Psychiatric orientation/consciousness Overall: oriented to person, place and time 10/16/2015 None Full Exam - General 1994 Psychiatric mood and affect Overall: normal mood and affect 10/16/2015 None Full Exam - General 1994 Constitutional general appearance Development: well developed 07/17/2015 None Full Exam - General 1994 Constitutional general appearance Development: appears stated age 0207/17/2015 None Full Exam - General 1994 Constitutional general appearance Hygiene/Attention to Grooming: good hygiene 07/17/2015 None Full Exam - General 1994 Eyes conjunctiva/eyelids Overall: conjunctiva clear 07/17/2015 None Full Exam - General 1994 Eyes conjunctiva/eyelids Overall: cornea clear 07/17/2015 None Full Exam - General 1994 Eyes conjunctiva/eyelids Overall: eyelids normal 07/17/2015 None Full Exam - General 1994 Eyes pupils and irises Overall: pupils equal, round, reactive to light and accomodation 07/17/2015 None Full Exam - General 1994 Ears/Nose/Throat otoscopic exam Overall: external auditory canals clear 07/17/2015 None Full Exam - General 1994 Ears/Nose/Throat otoscopic exam Overall: tympanic membranes clear 07/17/2015 None Full Exam - General 1994 Ears/Nose/Throat lips/teeth/gingiva Overall: benign lips 07/17/2015 None Full Exam - General 1994 Ears/Nose/Throat lips/teeth/gingiva Overall: normal dentition 07/17/2015 None Full Exam - General 1994 Ears/Nose/Throat oral cavity/pharynx/larynx Overall: oral mucosa clear 07/17/2015 None Full Exam - General 1994 Ears/Nose/Throat oral cavity/pharynx/larynx Overall: oropharyngeal mucosa clear 07/17/2015 None Full Exam - General 1994 Ears/Nose/Throat oral cavity/pharynx/larynx Overall: hypopharynx benign 07/17/2015 None Full Exam - General 1994 Ears/Nose/Throat oral cavity/pharynx/larynx Overall: no masses 07/17/2015 None Full Exam - General 1994 Neck thyroid Overall: normal size 07/17/2015 None Full Exam - General 1994 Neck thyroid Overall: nontender 07/17/2015 None Full Exam - General 1994 Respiratory auscultation Overall: breath sounds clear bilaterally 07/17/2015 None Full Exam - General 1994 Respiratory respiratory effort/rhythm Overall: no retractions 07/17/2015 None Full Exam - General 1994 Respiratory respiratory effort/rhythm Overall: normal rate 07/17/2015 None Full Exam - General 1994 Cardiovascular inspection of carotid pulses Carotid pulse: carotid bruit 07/17/2015 None Full Exam - General 1994 Cardiovascular extremities Overall: no clubbing 07/17/2015 None Full Exam - General 1994 Cardiovascular auscultation of heart Rate: regular rate 07/17/2015 None Full Exam - General 1994 Cardiovascular auscultation of heart Rhythm: irregular rhythm 07/17/2015 None Full Exam - General 1994 Abdomen abdominal exam Overall: no tenderness 07/17/2015 None Full Exam - General 1994 Abdomen abdominal exam Overall: normal bowel sounds 07/17/2015 None Full Exam - General 1994 Lymphatic neck nodes Overall: anterior cervical chain benign 07/17/2015 None Full Exam - General 1994 Lymphatic neck nodes Overall: posterior cervical chain benign 07/17/2015 None Full Exam - General 1994 Musculoskeletal lower extremity Inspection - thigh: deformity 07/17/2015 atrophy Full Exam - General 1994 Musculoskeletal lower extremity Palpation - thigh: normal on palpation 07/17/2015 None Full Exam - General 1994 Musculoskeletal lower extremity Palpation - knee: crepitus 07/17/2015 None Full Exam - General 1994 Musculoskeletal lower extremity Inspection - lower leg: deformity 07/17/2015 atrophies calf muscles - pt with braces on lower legs/supportive shoes Full Exam - General 1994 Musculoskeletal spine, ribs and pelvis Posture: kyphoscoliosis 07/17/2015 None Full Exam - General 1994 Musculoskeletal gait and station Gait: asymmetric 07/17/2015 None Full Exam - General 1994 Musculoskeletal gait and station Gait: abnormal stride length 07/17/2015 None Full Exam - General 1994 Musculoskeletal gait and station Gait: abnormal heel strike 07/17/2015 None Full Exam - General 1994 Musculoskeletal gait and station Gait: abnormal stance 07/17/2015 None Full Exam - General 1994 Musculoskeletal gait and station Gait: abnormal toe off 07/17/2015 None Full Exam - General 1994 Musculoskeletal gait and station Gait: abnormal swing through 07/17/2015 None Full Exam - General 1994 Musculoskeletal gait and station Gait: unable to turn quickly 07/17/2015 None Full Exam - General 1994 Musculoskeletal head and neck Overall: head atraumatic 07/17/2015 None Full Exam - General 1994 Musculoskeletal head and neck Overall: cervical spine benign 07/17/2015 None Full Exam - General 1994 Integument inspection of skin Overall: few scattered moles, no gross abnormalities 07/17/2015 - pt has some evidence of seborrhea on face at eyebrows - Full Exam - General 1994 Neurologic deep tendon reflexes Overall: deep tendon reflexes intact 07/17/2015 None Full Exam - General 1994 Neurologic cranial nerves Overall: crainial nerves 2 - 12 grossly intact 07/17/2015 None Full Exam - General 1994 Psychiatric orientation/consciousness Overall: oriented to person, place and time 07/17/2015 None Full Exam - General 1994 Psychiatric mood and affect Overall: normal mood and affect 07/17/2015 None Full Exam - General 1994 Constitutional general appearance Development: well developed 04/16/2015 None Full Exam - General 1994 Constitutional general appearance Development: appears stated age 1104/16/2015 None Full Exam - General 1994 Constitutional general appearance Hygiene/Attention to Grooming: good hygiene 04/16/2015 None Full Exam - General 1994 Eyes conjunctiva/eyelids Overall: conjunctiva clear 04/16/2015 None Full Exam - General 1994 Eyes conjunctiva/eyelids Overall: cornea clear 04/16/2015 None Full Exam - General 1994 Eyes conjunctiva/eyelids Overall: eyelids normal 04/16/2015 None Full Exam - General 1994 Eyes pupils and irises Overall: pupils equal, round, reactive to light and accomodation 04/16/2015 None Full Exam - General 1994 Ears/Nose/Throat otoscopic exam Overall: external auditory canals clear 04/16/2015 None Full Exam - General 1994 Ears/Nose/Throat otoscopic exam Overall: tympanic membranes clear 04/16/2015 None Full Exam - General 1994 Ears/Nose/Throat lips/teeth/gingiva Overall: benign lips 04/16/2015 None Full Exam - General 1994 Ears/Nose/Throat lips/teeth/gingiva Overall: normal dentition 04/16/2015 None Full Exam - General 1994 Ears/Nose/Throat oral cavity/pharynx/larynx Overall: oral mucosa clear 04/16/2015 None Full Exam - General 1994 Ears/Nose/Throat oral cavity/pharynx/larynx Overall: oropharyngeal mucosa clear 04/16/2015 None Full Exam - General 1994 Ears/Nose/Throat oral cavity/pharynx/larynx Overall: hypopharynx benign 04/16/2015 None Full Exam - General 1994 Ears/Nose/Throat oral cavity/pharynx/larynx Overall: no masses 04/16/2015 None Full Exam - General 1994 Neck thyroid Overall: normal size 04/16/2015 None Full Exam - General 1994 Neck thyroid Overall: nontender 04/16/2015 None Full Exam - General 1994 Respiratory auscultation Overall: breath sounds clear bilaterally 04/16/2015 None Full Exam - General 1994 Respiratory respiratory effort/rhythm Overall: no retractions 04/16/2015 None Full Exam - General 1994 Respiratory respiratory effort/rhythm Overall: normal rate 04/16/2015 None Full Exam - General 1994 Cardiovascular inspection of carotid pulses Carotid pulse: carotid bruit 04/16/2015 None Full Exam - General 1994 Cardiovascular extremities Overall: no clubbing 04/16/2015 None Full Exam - General 1994 Cardiovascular auscultation of heart Rate: regular rate 04/16/2015 None Full Exam - General 1994 Cardiovascular auscultation of heart Rhythm: irregular rhythm 04/16/2015 None Full Exam - General 1994 Abdomen abdominal exam Overall: no tenderness 04/16/2015 None Full Exam - General 1994 Abdomen abdominal exam Overall: normal bowel sounds 04/16/2015 None Full Exam - General 1994 Lymphatic neck nodes Overall: anterior cervical chain benign 04/16/2015 None Full Exam - General 1994 Lymphatic neck nodes Overall: posterior cervical chain benign 04/16/2015 None Full Exam - General 1994 Musculoskeletal lower extremity Inspection - thigh: deformity 04/16/2015 atrophy Full Exam - General 1994 Musculoskeletal lower extremity Palpation - thigh: normal on palpation 04/16/2015 None Full Exam - General 1994 Musculoskeletal lower extremity Palpation - knee: crepitus 04/16/2015 None Full Exam - General 1994 Musculoskeletal lower extremity Inspection - lower leg: deformity 04/16/2015 atrophies calf muscles - pt with braces on lower legs/supportive shoes Full Exam - General 1994 Musculoskeletal spine, ribs and pelvis Posture: kyphoscoliosis 04/16/2015 None Full Exam - General 1994 Musculoskeletal gait and station Gait: asymmetric 04/16/2015 None Full Exam - General 1994 Musculoskeletal gait and station Gait: abnormal stride length 04/16/2015 None Full Exam - General 1994 Musculoskeletal gait and station Gait: abnormal heel strike 04/16/2015 None Full Exam - General 1994 Musculoskeletal gait and station Gait: abnormal stance 04/16/2015 None Full Exam - General 1994 Musculoskeletal gait and station Gait: abnormal toe off 04/16/2015 None Full Exam - General 1994 Musculoskeletal gait and station Gait: abnormal swing through 04/16/2015 None Full Exam - General 1994 Musculoskeletal gait and station Gait: unable to turn quickly 04/16/2015 None Full Exam - General 1994 Musculoskeletal head and neck Overall: head atraumatic 04/16/2015 None Full Exam - General 1994 Musculoskeletal head and neck Overall: cervical spine benign 04/16/2015 None Full Exam - General 1994 Integument inspection of skin Overall: few scattered moles, no gross abnormalities 04/16/2015 - pt has some evidence of seborrhea on face at eyebrows - Full Exam - General 1994 Neurologic deep tendon reflexes Overall: deep tendon reflexes intact 04/16/2015 None Full Exam - General 1994 Neurologic cranial nerves Overall: crainial nerves 2 - 12 grossly intact 04/16/2015 None Full Exam - General 1994 Psychiatric orientation/consciousness Overall: oriented to person, place and time 04/16/2015 None Full Exam - General 1994 Psychiatric mood and affect Overall: normal mood and affect 04/16/2015 None Full Exam - General 1994 Constitutional general appearance Development: well developed 02/19/2015 None Full Exam - General 1994 Constitutional general appearance Development: appears stated age 0902/19/2015 None Full Exam - General 1994 Constitutional general appearance Hygiene/Attention to Grooming: good hygiene 02/19/2015 None Full Exam - General 1994 Eyes conjunctiva/eyelids Overall: conjunctiva clear 02/19/2015 None Full Exam - General 1994 Eyes conjunctiva/eyelids Overall: cornea clear 02/19/2015 None Full Exam - General 1994 Eyes conjunctiva/eyelids Overall: eyelids normal 02/19/2015 None Full Exam - General 1994 Eyes pupils and irises Overall: pupils equal, round, reactive to light and accomodation 02/19/2015 None Full Exam - General 1994 Ears/Nose/Throat otoscopic exam Overall: external auditory canals clear 02/19/2015 None Full Exam - General 1994 Ears/Nose/Throat otoscopic exam Overall: tympanic membranes clear 02/19/2015 None Full Exam - General 1994 Ears/Nose/Throat lips/teeth/gingiva Overall: benign lips 02/19/2015 None Full Exam - General 1994 Ears/Nose/Throat lips/teeth/gingiva Overall: normal dentition 02/19/2015 None Full Exam - General 1994 Ears/Nose/Throat oral cavity/pharynx/larynx Overall: oral mucosa clear 02/19/2015 None Full Exam - General 1994 Ears/Nose/Throat oral cavity/pharynx/larynx Overall: oropharyngeal mucosa clear 02/19/2015 None Full Exam - General 1994 Ears/Nose/Throat oral cavity/pharynx/larynx Overall: hypopharynx benign 02/19/2015 None Full Exam - General 1994 Ears/Nose/Throat oral cavity/pharynx/larynx Overall: no masses 02/19/2015 None Full Exam - General 1994 Neck thyroid Overall: normal size 02/19/2015 None Full Exam - General 1994 Neck thyroid Overall: nontender 02/19/2015 None Full Exam - General 1994 Respiratory auscultation Overall: breath sounds clear bilaterally 02/19/2015 None Full Exam - General 1994 Respiratory respiratory effort/rhythm Overall: no retractions 02/19/2015 None Full Exam - General 1994 Respiratory respiratory effort/rhythm Overall: normal rate 02/19/2015 None Full Exam - General 1994 Cardiovascular inspection of carotid pulses Carotid pulse: carotid bruit 02/19/2015 None Full Exam - General 1994 Cardiovascular extremities Overall: no clubbing 02/19/2015 None Full Exam - General 1994 Cardiovascular auscultation of heart Rate: regular rate 02/19/2015 None Full Exam - General 1994 Cardiovascular auscultation of heart Rhythm: irregular rhythm 02/19/2015 None Full Exam - General 1994 Abdomen abdominal exam Overall: no tenderness 02/19/2015 None Full Exam - General 1994 Abdomen abdominal exam Overall: normal bowel sounds 02/19/2015 None Full Exam - General 1994 Lymphatic neck nodes Overall: anterior cervical chain benign 02/19/2015 None Full Exam - General 1994 Lymphatic neck nodes Overall: posterior cervical chain benign 02/19/2015 None Full Exam - General 1994 Musculoskeletal lower extremity Inspection - thigh: deformity 02/19/2015 atrophy Full Exam - General 1994 Musculoskeletal lower extremity Palpation - thigh: normal on palpation 02/19/2015 None Full Exam - General 1994 Musculoskeletal lower extremity Palpation - knee: crepitus 02/19/2015 None Full Exam - General 1994 Musculoskeletal lower extremity Inspection - lower leg: deformity 02/19/2015 atrophies calf muscles - pt with braces on lower legs/supportive shoes Full Exam - General 1994 Musculoskeletal spine, ribs and pelvis Posture: kyphoscoliosis 02/19/2015 None Full Exam - General 1994 Musculoskeletal gait and station Gait: asymmetric 02/19/2015 None Full Exam - General 1994 Musculoskeletal gait and station Gait: abnormal stride length 02/19/2015 None Full Exam - General 1994 Musculoskeletal gait and station Gait: abnormal heel strike 02/19/2015 None Full Exam - General 1994 Musculoskeletal gait and station Gait: abnormal stance 02/19/2015 None Full Exam - General 1994 Musculoskeletal gait and station Gait: abnormal toe off 02/19/2015 None Full Exam - General 1994 Musculoskeletal gait and station Gait: abnormal swing through 02/19/2015 None Full Exam - General 1994 Musculoskeletal gait and station Gait: unable to turn quickly 02/19/2015 None Full Exam - General 1994 Musculoskeletal head and neck Overall: head atraumatic 02/19/2015 None Full Exam - General 1994 Musculoskeletal head and neck Overall: cervical spine benign 02/19/2015 None Full Exam - General 1994 Integument inspection of skin Overall: few scattered moles, no gross abnormalities 02/19/2015 - pt has some evidence of seborrhea on face at eyebrows - Full Exam - General 1994 Neurologic deep tendon reflexes Overall: deep tendon reflexes intact 02/19/2015 None Full Exam - General 1994 Neurologic cranial nerves Overall: crainial nerves 2 - 12 grossly intact 02/19/2015 None Full Exam - General 1994 Psychiatric orientation/consciousness Overall: oriented to person, place and time 02/19/2015 None Full Exam - General 1994 Psychiatric mood and affect Overall: normal mood and affect 02/19/2015 None Full Exam - General 1994 Constitutional general appearance Overall: well developed 11/20/2014 None Full Exam - General 1994 Constitutional general appearance Overall: well nourished 11/20/2014 None Full Exam - General 1994 Constitutional general appearance Evidence of Distress: mild distress 11/20/2014 --Improved Full Exam - General 1994 Eyes conjunctiva/eyelids Conjunctiva: clear 11/20/2014 None Full Exam - General 1994 Eyes conjunctiva/eyelids Conjunctiva: erythema 11/20/2014 --Improved Full Exam - General 1994 Eyes conjunctiva/eyelids Eyelid: periorbital erythema 11/20/2014 --Improved Full Exam - General 1994 Eyes pupils and irises Overall: pupils equal, round, reactive to light and accomodation 11/20/2014 None Full Exam - General 1994 Respiratory auscultation Overall: breath sounds clear bilaterally 11/20/2014 None Full Exam - General 1994 Respiratory respiratory effort/rhythm Overall: no retractions 11/20/2014 None Full Exam - General 1994 Respiratory respiratory effort/rhythm Overall: normal rate 11/20/2014 None Full Exam - General 1994 Cardiovascular auscultation of heart Overall: regular rate 11/20/2014 None Full Exam - General 1994 Cardiovascular auscultation of heart Overall: normal heart sounds 11/20/2014 None Full Exam - General 1994 Cardiovascular auscultation of heart Overall: no murmurs 11/20/2014 None Full Exam - General 1994 Integument inspection of skin Dermatitis: erythema 11/20/2014 on right Trigeminal nerve branc I , down to nasal bridge on right an dup on frontoparietal region --Improved Full Exam - General 1994 Psychiatric orientation/consciousness Overall: oriented to person, place and time 11/20/2014 None Full Exam - General 1994 Psychiatric mood and affect Overall: normal mood and affect 11/20/2014 None Full Exam - General 1994 Psychiatric mood and affect Mood: happy 11/20/2014 None Full Exam - General 1994 Ears/Nose/Throat otoscopic exam Overall: tympanic membranes clear 11/20/2014 None Full Exam - General 1994 Ears/Nose/Throat otoscopic exam Overall: external auditory canals clear 11/20/2014 None Full Exam - General 1994 Ears/Nose/Throat oral cavity/pharynx/larynx Overall: oropharyngeal mucosa clear 11/20/2014 None Full Exam - General 1994 Ears/Nose/Throat oral cavity/pharynx/larynx Overall: no masses 11/20/2014 None Full Exam - General 1994 Ears/Nose/Throat oral cavity/pharynx/larynx Overall: oral mucosa clear 11/20/2014 None Full Exam - General 1994 Constitutional general appearance Overall: well nourished 11/05/2014 None Full Exam - General 1994 Constitutional general appearance Overall: well developed 11/05/2014 None Full Exam - General 1994 Constitutional general appearance Evidence of Distress: mild distress 11/05/2014 None Full Exam - General 1994 Eyes conjunctiva/eyelids Conjunctiva: erythema 11/05/2014 None Full Exam - General 1994 Eyes conjunctiva/eyelids Conjunctiva: clear 11/05/2014 None Full Exam - General 1994 Eyes conjunctiva/eyelids Eyelid: periorbital erythema 11/05/2014 None Full Exam - General 1994 Eyes pupils and irises Overall: pupils equal, round, reactive to light and accomodation 11/05/2014 None Full Exam - General 1994 Respiratory respiratory effort/rhythm Overall: normal rate 11/05/2014 None Full Exam - General 1994 Respiratory respiratory effort/rhythm Overall: no retractions 11/05/2014 None Full Exam - General 1994 Respiratory auscultation Overall: breath sounds clear bilaterally 11/05/2014 None Full Exam - General 1994 Cardiovascular auscultation of heart Overall: regular rate 11/05/2014 None Full Exam - General 1994 Cardiovascular auscultation of heart Overall: normal heart sounds 11/05/2014 None Full Exam - General 1994 Cardiovascular auscultation of heart Overall: no murmurs 11/05/2014 None Full Exam - General 1994 Psychiatric mood and affect Mood: happy 11/05/2014 None Full Exam - General 1994 Psychiatric mood and affect Overall: normal mood and affect 11/05/2014 None Full Exam - General 1994 Psychiatric orientation/consciousness Overall: oriented to person, place and time 11/05/2014 None Full Exam - General 1994 Integument inspection of skin Dermatitis: erythema 11/05/2014 on right Trigeminal nerve branc I , down to nasal bridge on right an dup on frontoparietal region Full Exam - General 1994 Constitutional general appearance Development: well developed 09/19/2014 None Full Exam - General 1994 Constitutional general appearance Development: appears stated age 0409/19/2014 None Full Exam - General 1994 Constitutional general appearance Hygiene/Attention to Grooming: good hygiene 09/19/2014 None Full Exam - General 1994 Eyes conjunctiva/eyelids Overall: conjunctiva clear 09/19/2014 None Full Exam - General 1994 Eyes conjunctiva/eyelids Overall: cornea clear 09/19/2014 None Full Exam - General 1994 Eyes conjunctiva/eyelids Overall: eyelids normal 09/19/2014 None Full Exam - General 1994 Eyes pupils and irises Overall: pupils equal, round, reactive to light and accomodation 09/19/2014 None Full Exam - General 1994 Ears/Nose/Throat otoscopic exam Overall: external auditory canals clear 09/19/2014 None Full Exam - General 1994 Ears/Nose/Throat otoscopic exam Overall: tympanic membranes clear 09/19/2014 None Full Exam - General 1994 Ears/Nose/Throat lips/teeth/gingiva Overall: benign lips 09/19/2014 None Full Exam - General 1994 Ears/Nose/Throat lips/teeth/gingiva Overall: normal dentition 09/19/2014 None Full Exam - General 1994 Ears/Nose/Throat oral cavity/pharynx/larynx Overall: oral mucosa clear 09/19/2014 None Full Exam - General 1994 Ears/Nose/Throat oral cavity/pharynx/larynx Overall: oropharyngeal mucosa clear 09/19/2014 None Full Exam - General 1994 Ears/Nose/Throat oral cavity/pharynx/larynx Overall: hypopharynx benign 09/19/2014 None Full Exam - General 1994 Ears/Nose/Throat oral cavity/pharynx/larynx Overall: no masses 09/19/2014 None Full Exam - General 1994 Neck thyroid Overall: normal size 09/19/2014 None Full Exam - General 1994 Neck thyroid Overall: nontender 09/19/2014 None Full Exam - General 1994 Respiratory auscultation Overall: breath sounds clear bilaterally 09/19/2014 None Full Exam - General 1994 Respiratory respiratory effort/rhythm Overall: no retractions 09/19/2014 None Full Exam - General 1994 Respiratory respiratory effort/rhythm Overall: normal rate 09/19/2014 None Full Exam - General 1994 Cardiovascular inspection of carotid pulses Carotid pulse: carotid bruit 09/19/2014 None Full Exam - General 1994 Cardiovascular extremities Overall: no clubbing 09/19/2014 None Full Exam - General 1994 Cardiovascular auscultation of heart Rate: regular rate 09/19/2014 None Full Exam - General 1994 Cardiovascular auscultation of heart Rhythm: irregular rhythm 09/19/2014 None Full Exam - General 1994 Abdomen abdominal exam Overall: no tenderness 09/19/2014 None Full Exam - General 1994 Abdomen abdominal exam Overall: normal bowel sounds 09/19/2014 None Full Exam - General 1994 Lymphatic neck nodes Overall: anterior cervical chain benign 09/19/2014 None Full Exam - General 1994 Lymphatic neck nodes Overall: posterior cervical chain benign 09/19/2014 None Full Exam - General 1994 Musculoskeletal lower extremity Inspection - thigh: deformity 09/19/2014 atrophy Full Exam - General 1994 Musculoskeletal lower extremity Palpation - thigh: normal on palpation 09/19/2014 None Full Exam - General 1994 Musculoskeletal lower extremity Palpation - knee: crepitus 09/19/2014 None Full Exam - General 1994 Musculoskeletal lower extremity Inspection - lower leg: deformity 09/19/2014 atrophy of calf muscles - pt with braces on lower legs/supportive shoes Full Exam - General 1994 Musculoskeletal spine, ribs and pelvis Posture: kyphoscoliosis 09/19/2014 None Full Exam - General 1994 Musculoskeletal gait and station Gait: asymmetric 09/19/2014 None Full Exam - General 1994 Musculoskeletal gait and station Gait: abnormal stride length 09/19/2014 None Full Exam - General 1994 Musculoskeletal gait and station Gait: abnormal heel strike 09/19/2014 None Full Exam - General 1994 Musculoskeletal gait and station Gait: abnormal stance 09/19/2014 None Full Exam - General 1994 Musculoskeletal gait and station Gait: abnormal toe off 09/19/2014 None Full Exam - General 1994 Musculoskeletal gait and station Gait: abnormal swing through 09/19/2014 None Full Exam - General 1994 Musculoskeletal gait and station Gait: unable to turn quickly 09/19/2014 None Full Exam - General 1994 Musculoskeletal head and neck Overall: head atraumatic 09/19/2014 None Full Exam - General 1994 Musculoskeletal head and neck Overall: cervical spine benign 09/19/2014 None Full Exam - General 1994 Integument inspection of skin Overall: few scattered moles, no gross abnormalities 09/19/2014 - pt has some evidence of seborrhea on face at eyebrows - Full Exam - General 1994 Neurologic cranial nerves Overall: crainial nerves 2 - 12 grossly intact 09/19/2014 None Full Exam - General 1994 Psychiatric orientation/consciousness Overall: oriented to person, place and time 09/19/2014 None Full Exam - General 1994 Psychiatric mood and affect Overall: normal mood and affect 09/19/2014 None Full Exam - General 1994 Musculoskeletal upper extremity Overall: normal shoulder 09/19/2014 None Full Exam - General 1994 Musculoskeletal upper extremity Overall: normal elbow 09/19/2014 None Full Exam - General 1994 Musculoskeletal upper extremity Overall: normal wrist 09/19/2014 None Full Exam - General 1994 Musculoskeletal upper extremity ROM - shoulder: a normal exam 09/19/2014 None Full Exam - General 1994 Musculoskeletal upper extremity Stability - shoulder: a normal exam 09/19/2014 None Full Exam - General 1994 Musculoskeletal upper extremity Muscle Strength/Tone - shoulder: a normal exam 09/19/2014 with strength of 4/5 upper extremity Full Exam - General 1994 Musculoskeletal upper extremity Inspection - upper arm: a normal exam 09/19/2014 None Full Exam - General 1994 Musculoskeletal upper extremity Muscle Strength/Tone - upper arm: biceps: a normal exam 09/19/2014 with muscle strength at 4/5 Full Exam - General 1994 Musculoskeletal upper extremity Inspection - elbow: a normal exam 09/19/2014 None Full Exam - General 1994 Musculoskeletal upper extremity Muscle Strength/Tone - elbow: a normal exam 09/19/2014 None Full Exam - General 1994 Musculoskeletal upper extremity Inspection - wrist: a normal exam 09/19/2014 None Full Exam - General 1994 Musculoskeletal upper extremity Stability - wrist: a normal exam 09/19/2014 None Full Exam - General 1994 Musculoskeletal upper extremity ROM - wrist: a normal exam 09/19/2014 None Full Exam - General 1994 Musculoskeletal upper extremity Inspection - carpals: a normal exam 09/19/2014 None Full Exam - General 1994 Musculoskeletal upper extremity Inspection - metacarpales: redness 09/19/2014 None Full Exam - General 1994 Musculoskeletal digits and nails Digits: a normal exam 09/19/2014 None Full Exam - General 1994 Musculoskeletal spine, ribs and pelvis Posture: lordosis 09/19/2014 None Full Exam - General 1994 Musculoskeletal spine, ribs and pelvis Sacroiliac joints: nontender 09/19/2014 but pt with unequal leg length Full Exam - General 1994 Musculoskeletal gait and station Station: hyperlordosis 09/19/2014 None Full Exam - General 1994 Musculoskeletal lower extremity Palpation - ankle: a normal exam 09/19/2014 None Full Exam - General 1994 Musculoskeletal lower extremity Stability - ankle: right - brace in place, pt with weakned foot/calf muscles, left calf with weakness, atrophy, ankle weak with atrophy as well 09/19/2014 None Full Exam - General 1994 Musculoskeletal lower extremity Inspection - foot: claw toes 09/19/2014 None Full Exam - General 1994 Musculoskeletal lower extremity Muscle Strength/Tone - foot: atrophy 09/19/2014 None Full Exam - General 1994 Neurologic gait Conventional walking: unsteady 09/19/2014 None Full Exam - General 1994 Neurologic gait Conventional walking: wide-based 09/19/2014 pt unable to ambulate without assistance, he has to lock his knee brace on the right to allow his leg to be stiff to attempt to ambulate, pt almost fell on this provider in clinic when attempting to stand to lock his leg straight, caught himself on the chair and the wall. (note, pt has fallen in clinic when attempting to ambulate by himself in the past, fell in the exam room and then again the hallway - pt is unsafe to ambulate by himself) Full Exam - General 1994 Constitutional general appearance Development: well developed 07/24/2014 None Full Exam - General 1994 Constitutional general appearance Development: appears stated age 0207/24/2014 None Full Exam - General 1994 Constitutional general appearance Hygiene/Attention to Grooming: good hygiene 07/24/2014 None Full Exam - General 1994 Eyes conjunctiva/eyelids Overall: conjunctiva clear 07/24/2014 None Full Exam - General 1994 Eyes conjunctiva/eyelids Overall: cornea clear 07/24/2014 None Full Exam - General 1994 Eyes conjunctiva/eyelids Overall: eyelids normal 07/24/2014 None Full Exam - General 1994 Eyes pupils and irises Overall: pupils equal, round, reactive to light and accomodation 07/24/2014 None Full Exam - General 1994 Ears/Nose/Throat otoscopic exam Overall: external auditory canals clear 07/24/2014 None Full Exam - General 1994 Ears/Nose/Throat otoscopic exam Overall: tympanic membranes clear 07/24/2014 None Full Exam - General 1994 Ears/Nose/Throat lips/teeth/gingiva Overall: benign lips 07/24/2014 None Full Exam - General 1994 Ears/Nose/Throat lips/teeth/gingiva Overall: normal dentition 07/24/2014 None Full Exam - General 1994 Ears/Nose/Throat oral cavity/pharynx/larynx Overall: oral mucosa clear 07/24/2014 None Full Exam - General 1994 Ears/Nose/Throat oral cavity/pharynx/larynx Overall: oropharyngeal mucosa clear 07/24/2014 None Full Exam - General 1994 Ears/Nose/Throat oral cavity/pharynx/larynx Overall: hypopharynx benign 07/24/2014 None Full Exam - General 1994 Ears/Nose/Throat oral cavity/pharynx/larynx Overall: no masses 07/24/2014 None Full Exam - General 1994 Neck thyroid Overall: normal size 07/24/2014 None Full Exam - General 1994 Neck thyroid Overall: nontender 07/24/2014 None Full Exam - General 1994 Respiratory auscultation Overall: breath sounds clear bilaterally 07/24/2014 None Full Exam - General 1994 Respiratory respiratory effort/rhythm Overall: no retractions 07/24/2014 None Full Exam - General 1994 Respiratory respiratory effort/rhythm Overall: normal rate 07/24/2014 None Full Exam - General 1994 Cardiovascular extremities Overall: no clubbing 07/24/2014 None Full Exam - General 1994 Cardiovascular auscultation of heart Rate: regular rate 07/24/2014 None Full Exam - General 1994 Cardiovascular auscultation of heart Rhythm: irregular rhythm 07/24/2014 None Full Exam - General 1994 Abdomen abdominal exam Overall: no tenderness 07/24/2014 None Full Exam - General 1994 Abdomen abdominal exam Overall: normal bowel sounds 07/24/2014 None Full Exam - General 1994 Lymphatic neck nodes Overall: anterior cervical chain benign 07/24/2014 None Full Exam - General 1994 Lymphatic neck nodes Overall: posterior cervical chain benign 07/24/2014 None Full Exam - General 1994 Musculoskeletal lower extremity Inspection - thigh: deformity 07/24/2014 atrophy Full Exam - General 1994 Musculoskeletal lower extremity Palpation - thigh: normal on palpation 07/24/2014 None Full Exam - General 1994 Musculoskeletal lower extremity Palpation - knee: crepitus 07/24/2014 None Full Exam - General 1994 Musculoskeletal lower extremity Inspection - lower leg: deformity 07/24/2014 atrophies calf muscles - pt with braces on lower legs/supportive shoes Full Exam - General 1994 Musculoskeletal spine, ribs and pelvis Posture: kyphoscoliosis 07/24/2014 None Full Exam - General 1994 Musculoskeletal gait and station Gait: asymmetric 07/24/2014 None Full Exam - General 1994 Musculoskeletal gait and station Gait: abnormal stride length 07/24/2014 None Full Exam - General 1994 Musculoskeletal gait and station Gait: abnormal heel strike 07/24/2014 None Full Exam - General 1994 Musculoskeletal gait and station Gait: abnormal stance 07/24/2014 None Full Exam - General 1994 Musculoskeletal gait and station Gait: abnormal toe off 07/24/2014 None Full Exam - General 1994 Musculoskeletal gait and station Gait: abnormal swing through 07/24/2014 None Full Exam - General 1994 Musculoskeletal gait and station Gait: unable to turn quickly 07/24/2014 None Full Exam - General 1994 Musculoskeletal head and neck Overall: head atraumatic 07/24/2014 None Full Exam - General 1994 Musculoskeletal head and neck Overall: cervical spine benign 07/24/2014 None Full Exam - General 1994 Neurologic deep tendon reflexes Overall: deep tendon reflexes intact 07/24/2014 None Full Exam - General 1994 Neurologic cranial nerves Overall: crainial nerves 2 - 12 grossly intact 07/24/2014 None Full Exam - General 1994 Psychiatric orientation/consciousness Overall: oriented to person, place and time 07/24/2014 None Full Exam - General 1994 Psychiatric mood and affect Overall: normal mood and affect 07/24/2014 None Full Exam - General 1994 Cardiovascular inspection of carotid pulses Carotid pulse: carotid bruit 07/24/2014 None Full Exam - General 1994 Integument inspection of skin Overall: few scattered moles, no gross abnormalities 07/24/2014 - pt has some evidence of seborrhea on face at eyebrows - Full Exam - General 1994 Constitutional general appearance Development: well developed 05/23/2014 None Full Exam - General 1994 Constitutional general appearance Development: appears stated age 1205/23/2014 None Full Exam - General 1994 Constitutional general appearance Hygiene/Attention to Grooming: good hygiene 05/23/2014 None Full Exam - General 1994 Eyes conjunctiva/eyelids Overall: conjunctiva clear 05/23/2014 None Full Exam - General 1994 Eyes conjunctiva/eyelids Overall: cornea clear 05/23/2014 None Full Exam - General 1994 Eyes conjunctiva/eyelids Overall: eyelids normal 05/23/2014 None Full Exam - General 1994 Eyes pupils and irises Overall: pupils equal, round, reactive to light and accomodation 05/23/2014 None Full Exam - General 1994 Ears/Nose/Throat otoscopic exam Overall: external auditory canals clear 05/23/2014 None Full Exam - General 1994 Ears/Nose/Throat otoscopic exam Overall: tympanic membranes clear 05/23/2014 None Full Exam - General 1994 Ears/Nose/Throat lips/teeth/gingiva Overall: benign lips 05/23/2014 None Full Exam - General 1994 Ears/Nose/Throat lips/teeth/gingiva Overall: normal dentition 05/23/2014 None Full Exam - General 1994 Ears/Nose/Throat oral cavity/pharynx/larynx Overall: oral mucosa clear 05/23/2014 None Full Exam - General 1994 Ears/Nose/Throat oral cavity/pharynx/larynx Overall: oropharyngeal mucosa clear 05/23/2014 None Full Exam - General 1994 Ears/Nose/Throat oral cavity/pharynx/larynx Overall: hypopharynx benign 05/23/2014 None Full Exam - General 1994 Ears/Nose/Throat oral cavity/pharynx/larynx Overall: no masses 05/23/2014 None Full Exam - General 1994 Neck thyroid Overall: normal size 05/23/2014 None Full Exam - General 1994 Neck thyroid Overall: nontender 05/23/2014 None Full Exam - General 1994 Respiratory auscultation Overall: breath sounds clear bilaterally 05/23/2014 None Full Exam - General 1994 Respiratory respiratory effort/rhythm Overall: no retractions 05/23/2014 None Full Exam - General 1994 Respiratory respiratory effort/rhythm Overall: normal rate 05/23/2014 None Full Exam - General 1994 Cardiovascular extremities Overall: no clubbing 05/23/2014 None Full Exam - General 1994 Cardiovascular auscultation of heart Rhythm: irregular rhythm 05/23/2014 None Full Exam - General 1994 Abdomen abdominal exam Overall: no tenderness 05/23/2014 None Full Exam - General 1994 Abdomen abdominal exam Overall: normal bowel sounds 05/23/2014 None Full Exam - General 1994 Lymphatic neck nodes Overall: anterior cervical chain benign 05/23/2014 None Full Exam - General 1994 Lymphatic neck nodes Overall: posterior cervical chain benign 05/23/2014 None Full Exam - General 1994 Musculoskeletal lower extremity Inspection - thigh: deformity 05/23/2014 atrophy Full Exam - General 1994 Musculoskeletal lower extremity Palpation - thigh: normal on palpation 05/23/2014 None Full Exam - General 1994 Musculoskeletal lower extremity Palpation - knee: crepitus 05/23/2014 None Full Exam - General 1994 Musculoskeletal lower extremity Inspection - lower leg: deformity 05/23/2014 atrophies calf muscles - pt with braces on lower legs/supportive shoes Full Exam - General 1994 Musculoskeletal spine, ribs and pelvis Posture: kyphoscoliosis 05/23/2014 None Full Exam - General 1994 Musculoskeletal gait and station Gait: asymmetric 05/23/2014 None Full Exam - General 1994 Musculoskeletal gait and station Gait: abnormal stride length 05/23/2014 None Full Exam - General 1994 Musculoskeletal gait and station Gait: abnormal heel strike 05/23/2014 None Full Exam - General 1994 Musculoskeletal gait and station Gait: abnormal stance 05/23/2014 None Full Exam - General 1994 Musculoskeletal gait and station Gait: abnormal toe off 05/23/2014 None Full Exam - General 1994 Musculoskeletal gait and station Gait: abnormal swing through 05/23/2014 None Full Exam - General 1994 Musculoskeletal gait and station Gait: unable to turn quickly 05/23/2014 None Full Exam - General 1994 Musculoskeletal head and neck Overall: head atraumatic 05/23/2014 None Full Exam - General 1994 Musculoskeletal head and neck Overall: cervical spine benign 05/23/2014 None Full Exam - General 1994 Integument inspection of skin Overall: few scattered moles, no gross abnormalities 05/23/2014 None Full Exam - General 1994 Neurologic deep tendon reflexes Overall: deep tendon reflexes intact 05/23/2014 None Full Exam - General 1994 Neurologic cranial nerves Overall: crainial nerves 2 - 12 grossly intact 05/23/2014 None Full Exam - General 1994 Psychiatric orientation/consciousness Overall: oriented to person, place and time 05/23/2014 None Full Exam - General 1994 Psychiatric mood and affect Overall: normal mood and affect 05/23/2014 None Full Exam - General 1994 Cardiovascular auscultation of heart Rate: regular rate 05/23/2014 None Full Exam - General 1994 Constitutional general appearance Development: well developed 04/18/2014 None Full Exam - General 1994 Constitutional general appearance Development: appears stated age 1104/18/2014 None Full Exam - General 1994 Constitutional general appearance Hygiene/Attention to Grooming: good hygiene 04/18/2014 None Full Exam - General 1994 Eyes conjunctiva/eyelids Overall: conjunctiva clear 04/18/2014 None Full Exam - General 1994 Eyes conjunctiva/eyelids Overall: cornea clear 04/18/2014 None Full Exam - General 1994 Eyes conjunctiva/eyelids Overall: eyelids normal 04/18/2014 None Full Exam - General 1994 Eyes pupils and irises Overall: pupils equal, round, reactive to light and accomodation 04/18/2014 None Full Exam - General 1994 Ears/Nose/Throat otoscopic exam Overall: external auditory canals clear 04/18/2014 None Full Exam - General 1994 Ears/Nose/Throat otoscopic exam Overall: tympanic membranes clear 04/18/2014 None Full Exam - General 1994 Ears/Nose/Throat lips/teeth/gingiva Overall: benign lips 04/18/2014 None Full Exam - General 1994 Ears/Nose/Throat lips/teeth/gingiva Overall: normal dentition 04/18/2014 None Full Exam - General 1994 Ears/Nose/Throat oral cavity/pharynx/larynx Overall: oral mucosa clear 04/18/2014 None Full Exam - General 1994 Ears/Nose/Throat oral cavity/pharynx/larynx Overall: oropharyngeal mucosa clear 04/18/2014 None Full Exam - General 1995 Ears/Nose/Throat oral cavity/pharynx/larynx Overall: hypopharynx benign 04/18/2014 None Full Exam - General 1994 Ears/Nose/Throat oral cavity/pharynx/larynx Overall: no masses 04/18/2014 None Full Exam - General 1994 Neck thyroid Overall: normal size 04/18/2014 None Full Exam - General 1994 Neck thyroid Overall: nontender 04/18/2014 None Full Exam - General 1994 Respiratory auscultation Overall: breath sounds clear bilaterally 04/18/2014 None Full Exam - General 1994 Respiratory respiratory effort/rhythm Overall: no retractions 04/18/2014 None Full Exam - General 1994 Respiratory respiratory effort/rhythm Overall: normal rate 04/18/2014 None Full Exam - General 1994 Cardiovascular extremities Overall: no clubbing 04/18/2014 None Full Exam - General 1994 Cardiovascular auscultation of heart Rate: tachycardia 04/18/2014 None Full Exam - General 1994 Cardiovascular auscultation of heart Rhythm: irregular rhythm 04/18/2014 None Full Exam - General 1994 Abdomen abdominal exam Overall: no tenderness 04/18/2014 None Full Exam - General 1994 Abdomen abdominal exam Overall: normal bowel sounds 04/18/2014 None Full Exam - General 1994 Lymphatic neck nodes Overall: anterior cervical chain benign 04/18/2014 None Full Exam - General 1994 Lymphatic neck nodes Overall: posterior cervical chain benign 04/18/2014 None Full Exam - General 1994 Musculoskeletal lower extremity Inspection - thigh: deformity 04/18/2014 atrophy Full Exam - General 1994 Musculoskeletal lower extremity Palpation - thigh: normal on palpation 04/18/2014 None Full Exam - General 1994 Musculoskeletal lower extremity Palpation - knee: crepitus 04/18/2014 None Full Exam - General 1994 Musculoskeletal lower extremity Inspection - lower leg: deformity 04/18/2014 atrophies calf muscles - pt with braces on lower legs/supportive shoes Full Exam - General 1994 Musculoskeletal spine, ribs and pelvis Posture: kyphoscoliosis 04/18/2014 None Full Exam - General 1994 Musculoskeletal gait and station Gait: asymmetric 04/18/2014 None Full Exam - General 1994 Musculoskeletal gait and station Gait: abnormal stride length 04/18/2014 None Full Exam - General 1994 Musculoskeletal gait and station Gait: abnormal heel strike 04/18/2014 None Full Exam - General 1994 Musculoskeletal gait and station Gait: abnormal stance 04/18/2014 None Full Exam - General 1994 Musculoskeletal gait and station Gait: abnormal toe off 04/18/2014 None Full Exam - General 1994 Musculoskeletal gait and station Gait: abnormal swing through 04/18/2014 None Full Exam - General 1994 Musculoskeletal gait and station Gait: unable to turn quickly 04/18/2014 None Full Exam - General 1994 Musculoskeletal head and neck Overall: head atraumatic 04/18/2014 None Full Exam - General 1994 Musculoskeletal head and neck Overall: cervical spine benign 04/18/2014 None Full Exam - General 1994 Integument inspection of skin Overall: few scattered moles, no gross abnormalities 04/18/2014 None Full Exam - General 1994 Neurologic deep tendon reflexes Overall: deep tendon reflexes intact 04/18/2014 None Full Exam - General 1994 Neurologic cranial nerves Overall: crainial nerves 2 - 12 grossly intact 04/18/2014 None Full Exam - General 1994 Psychiatric orientation/consciousness Overall: oriented to person, place and time 04/18/2014 None Full Exam - General 1994 Psychiatric mood and affect Overall: normal mood and affect 04/18/2014 None Full Exam - General 1994 Constitutional general appearance Development: well developed 02/21/2014 None Full Exam - General 1994 Constitutional general appearance Development: appears stated age 0902/21/2014 None Full Exam - General 1994 Constitutional general appearance Hygiene/Attention to Grooming: good hygiene 02/21/2014 None Full Exam - General 1994 Eyes conjunctiva/eyelids Overall: conjunctiva clear 02/21/2014 None Full Exam - General 1994 Eyes conjunctiva/eyelids Overall: cornea clear 02/21/2014 None Full Exam - General 1994 Eyes conjunctiva/eyelids Overall: eyelids normal 02/21/2014 None Full Exam - General 1994 Eyes pupils and irises Overall: pupils equal, round, reactive to light and accomodation 02/21/2014 None Full Exam - General 1994 Ears/Nose/Throat oral cavity/pharynx/larynx Overall: oral mucosa clear 02/21/2014 None Full Exam - General 1994 Ears/Nose/Throat oral cavity/pharynx/larynx Overall: oropharyngeal mucosa clear 02/21/2014 None Full Exam - General 1994 Ears/Nose/Throat oral cavity/pharynx/larynx Overall: hypopharynx benign 02/21/2014 None Full Exam - General 1994 Ears/Nose/Throat oral cavity/pharynx/larynx Overall: no masses 02/21/2014 None Full Exam - General 1994 Respiratory auscultation Overall: breath sounds clear bilaterally 02/21/2014 None Full Exam - General 1994 Respiratory respiratory effort/rhythm Overall: no retractions 02/21/2014 None Full Exam - General 1994 Respiratory respiratory effort/rhythm Overall: normal rate 02/21/2014 None Full Exam - General 1994 Cardiovascular extremities Overall: no clubbing 02/21/2014 None Full Exam - General 1994 Cardiovascular auscultation of heart Overall: regular rate 02/21/2014 None Full Exam - General 1994 Cardiovascular auscultation of heart Overall: normal heart sounds 02/21/2014 None Full Exam - General 1994 Musculoskeletal lower extremity Inspection - thigh: deformity 02/21/2014 atrophy Full Exam - General 1994 Musculoskeletal lower extremity Palpation - thigh: normal on palpation 02/21/2014 None Full Exam - General 1994 Musculoskeletal lower extremity Palpation - knee: crepitus 02/21/2014 None Full Exam - General 1994 Musculoskeletal lower extremity Inspection - lower leg: deformity 02/21/2014 atrophies calf muscles - pt with braces on lower legs/supportive shoes Full Exam - General 1994 Musculoskeletal spine, ribs and pelvis Posture: kyphoscoliosis 02/21/2014 None Full Exam - General 1994 Musculoskeletal gait and station Gait: asymmetric 02/21/2014 None Full Exam - General 1994 Musculoskeletal gait and station Gait: abnormal stride length 02/21/2014 None Full Exam - General 1994 Musculoskeletal gait and station Gait: abnormal heel strike 02/21/2014 None Full Exam - General 1994 Musculoskeletal gait and station Gait: abnormal stance 02/21/2014 None Full Exam - General 1994 Musculoskeletal gait and station Gait: abnormal toe off 02/21/2014 None Full Exam - General 1994 Musculoskeletal gait and station Gait: abnormal swing through 02/21/2014 None Full Exam - General 1994 Musculoskeletal gait and station Gait: unable to turn quickly 02/21/2014 None Full Exam - General 1994 Musculoskeletal head and neck Overall: head atraumatic 02/21/2014 None Full Exam - General 1994 Musculoskeletal head and neck Overall: cervical spine benign 02/21/2014 None Full Exam - General 1994 Neurologic deep tendon reflexes Overall: deep tendon reflexes intact 02/21/2014 None Full Exam - General 1994 Neurologic cranial nerves Overall: crainial nerves 2 - 12 grossly intact 02/21/2014 None Full Exam - General 1994 Psychiatric orientation/consciousness Overall: oriented to person, place and time 02/21/2014 None Full Exam - General 1994 Psychiatric mood and affect Overall: normal mood and affect 02/21/2014 None Full Exam - Dermatology Constitutional general appearance Overall: well nourished 12/25/2013 None Full Exam - Dermatology Constitutional general appearance Overall: well developed 12/25/2013 None Full Exam - Dermatology Psychiatric orientation Overall: oriented to person, place and time 12/25/2013 None Full Exam - Dermatology Integument insp & palp - right lower extremity Lesion: patch 12/25/2013 None Full Exam - Dermatology Integument insp & palp - right lower extremity Location: on the sole 12/25/2013 None Full Exam - Dermatology Integument insp & palp - right lower extremity Distribution: localized 12/25/2013 None Full Exam - Dermatology Integument insp & palp - right lower extremity Appearance: scaly 12/25/2013 None Full Exam - Dermatology Integument insp & palp - left lower extremity Lesion: patch 12/25/2013 None Full Exam - Dermatology Integument insp & palp - left lower extremity Distribution: localized 12/25/2013 None Full Exam - Dermatology Integument insp & palp - left lower extremity Location: on the sole 12/25/2013 None Full Exam - Dermatology Integument insp & palp - left lower extremity Color: erythematous 12/25/2013 None Full Exam - Dermatology Integument insp & palp - left lower extremity Appearance: scaly 12/25/2013 None Full Exam - General 1994 Constitutional general appearance Development: well developed 11/28/2013 None Full Exam - General 1994 Constitutional general appearance Development: appears stated age 0611/28/2013 None Full Exam - General 1994 Constitutional general appearance Hygiene/Attention to Grooming: good hygiene 11/28/2013 None Full Exam - General 1994 Eyes conjunctiva/eyelids Overall: conjunctiva clear 11/28/2013 None Full Exam - General 1994 Eyes conjunctiva/eyelids Overall: cornea clear 11/28/2013 None Full Exam - General 1994 Eyes conjunctiva/eyelids Overall: eyelids normal 11/28/2013 None Full Exam - General 1994 Eyes pupils and irises Overall: pupils equal, round, reactive to light and accomodation 11/28/2013 None Full Exam - General 1994 Ears/Nose/Throat oral cavity/pharynx/larynx Overall: oral mucosa clear 11/28/2013 None Full Exam - General 1994 Ears/Nose/Throat oral cavity/pharynx/larynx Overall: oropharyngeal mucosa clear 11/28/2013 None Full Exam - General 1994 Ears/Nose/Throat oral cavity/pharynx/larynx Overall: hypopharynx benign 11/28/2013 None Full Exam - General 1994 Ears/Nose/Throat oral cavity/pharynx/larynx Overall: no masses 11/28/2013 None Full Exam - General 1994 Respiratory auscultation Overall: breath sounds clear bilaterally 11/28/2013 None Full Exam - General 1994 Respiratory respiratory effort/rhythm Overall: no retractions 11/28/2013 None Full Exam - General 1994 Respiratory respiratory effort/rhythm Overall: normal rate 11/28/2013 None Full Exam - General 1994 Cardiovascular extremities Overall: no clubbing 11/28/2013 None Full Exam - General 1994 Musculoskeletal lower extremity Inspection - thigh: deformity 11/28/2013 atrophy Full Exam - General 1994 Musculoskeletal lower extremity Palpation - thigh: normal on palpation 11/28/2013 None Full Exam - General 1994 Musculoskeletal lower extremity Palpation - knee: crepitus 11/28/2013 None Full Exam - General 1994 Musculoskeletal lower extremity Inspection - lower leg: deformity 11/28/2013 atrophies calf muscles - pt with braces on lower legs/supportive shoes Full Exam - General 1994 Musculoskeletal spine, ribs and pelvis Posture: kyphoscoliosis 11/28/2013 None Full Exam - General 1994 Musculoskeletal gait and station Gait: asymmetric 11/28/2013 None Full Exam - General 1994 Musculoskeletal gait and station Gait: abnormal stride length 11/28/2013 None Full Exam - General 1994 Musculoskeletal gait and station Gait: abnormal heel strike 11/28/2013 None Full Exam - General 1994 Musculoskeletal gait and station Gait: abnormal stance 11/28/2013 None Full Exam - General 1994 Musculoskeletal gait and station Gait: abnormal toe off 11/28/2013 None Full Exam - General 1994 Musculoskeletal gait and station Gait: abnormal swing through 11/28/2013 None Full Exam - General 1994 Musculoskeletal gait and station Gait: unable to turn quickly 11/28/2013 None Full Exam - General 1994 Musculoskeletal head and neck Overall: head atraumatic 11/28/2013 None Full Exam - General 1994 Musculoskeletal head and neck Overall: cervical spine benign 11/28/2013 None Full Exam - General 1994 Neurologic deep tendon reflexes Overall: deep tendon reflexes intact 11/28/2013 None Full Exam - General 1994 Neurologic cranial nerves Overall: crainial nerves 2 - 12 grossly intact 11/28/2013 None Full Exam - General 1994 Psychiatric orientation/consciousness Overall: oriented to person, place and time 11/28/2013 None Full Exam - General 1994 Psychiatric mood and affect Overall: normal mood and affect 11/28/2013 None Full Exam - General 1994 Cardiovascular auscultation of heart Overall: regular rate 11/28/2013 None Full Exam - General 1994 Cardiovascular auscultation of heart Overall: normal heart sounds 11/28/2013 None Full Exam - General 1994 Constitutional general appearance Development: appears stated age 0611/14/2013 None Full Exam - General 1994 Constitutional general appearance Development: well developed 11/14/2013 None Full Exam - General 1994 Constitutional general appearance Hygiene/Attention to Grooming: good hygiene 11/14/2013 None Full Exam - General 1994 Eyes conjunctiva/eyelids Overall: conjunctiva clear 11/14/2013 None Full Exam - General 1994 Eyes conjunctiva/eyelids Overall: cornea clear 11/14/2013 None Full Exam - General 1994 Eyes conjunctiva/eyelids Overall: eyelids normal 11/14/2013 None Full Exam - General 1994 Eyes pupils and irises Overall: pupils equal, round, reactive to light and accomodation 11/14/2013 None Full Exam - General 1994 Ears/Nose/Throat otoscopic exam Overall: external auditory canals clear 11/14/2013 None Full Exam - General 1994 Ears/Nose/Throat otoscopic exam Overall: tympanic membranes clear 11/14/2013 None Full Exam - General 1994 Ears/Nose/Throat lips/teeth/gingiva Overall: benign lips 11/14/2013 None Full Exam - General 1994 Ears/Nose/Throat lips/teeth/gingiva Overall: normal dentition 11/14/2013 None Full Exam - General 1994 Ears/Nose/Throat oral cavity/pharynx/larynx Overall: hypopharynx benign 11/14/2013 None Full Exam - General 1994 Ears/Nose/Throat oral cavity/pharynx/larynx Overall: no masses 11/14/2013 None Full Exam - General 1994 Ears/Nose/Throat oral cavity/pharynx/larynx Overall: oral mucosa clear 11/14/2013 None Full Exam - General 1994 Ears/Nose/Throat oral cavity/pharynx/larynx Overall: oropharyngeal mucosa clear 11/14/2013 None Full Exam - General 1994 Respiratory auscultation Overall: breath sounds clear bilaterally 11/14/2013 None Full Exam - General 1994 Respiratory respiratory effort/rhythm Overall: no retractions 11/14/2013 None Full Exam - General 1994 Respiratory respiratory effort/rhythm Overall: normal rate 11/14/2013 None Full Exam - General 1994 Cardiovascular extremities Overall: no clubbing 11/14/2013 None Full Exam - General 1994 Abdomen abdominal exam Overall: no tenderness 11/14/2013 None Full Exam - General 1994 Abdomen abdominal exam Overall: normal bowel sounds 11/14/2013 None Full Exam - General 1994 Integument inspection of skin Overall: few scattered moles, no gross abnormalities 11/14/2013 None Full Exam - General 1994 Neurologic deep tendon reflexes Overall: deep tendon reflexes intact 11/14/2013 None Full Exam - General 1994 Neurologic cranial nerves Overall: crainial nerves 2 - 12 grossly intact 11/14/2013 None Full Exam - General 1994 Psychiatric orientation/consciousness Overall: oriented to person, place and time 11/14/2013 None Full Exam - General 1994 Psychiatric mood and affect Overall: normal mood and affect 11/14/2013 None Full Exam - General 1994 Neck thyroid Overall: normal size 11/14/2013 None Full Exam - General 1994 Neck thyroid Overall: nontender 11/14/2013 None Full Exam - General 1994 Lymphatic neck nodes Overall: anterior cervical chain benign 11/14/2013 None Full Exam - General 1994 Lymphatic neck nodes Overall: posterior cervical chain benign 11/14/2013 None Full Exam - General 1994 Musculoskeletal lower extremity Inspection - thigh: deformity 11/14/2013 atrophy Full Exam - General 1994 Musculoskeletal lower extremity Palpation - thigh: normal on palpation 11/14/2013 None Full Exam - General 1994 Musculoskeletal lower extremity Palpation - knee: crepitus 11/14/2013 None Full Exam - General 1994 Musculoskeletal lower extremity Inspection - lower leg: deformity 11/14/2013 atrophies calf muscles - pt with braces on lower legs/supportive shoes Full Exam - General 1994 Musculoskeletal spine, ribs and pelvis Posture: kyphoscoliosis 11/14/2013 None Full Exam - General 1994 Musculoskeletal gait and station Gait: asymmetric 11/14/2013 None Full Exam - General 1994 Musculoskeletal gait and station Gait: abnormal stride length 11/14/2013 None Full Exam - General 1994 Musculoskeletal gait and station Gait: abnormal heel strike 11/14/2013 None Full Exam - General 1994 Musculoskeletal gait and station Gait: abnormal stance 11/14/2013 None Full Exam - General 1994 Musculoskeletal gait and station Gait: abnormal toe off 11/14/2013 None Full Exam - General 1994 Musculoskeletal gait and station Gait: abnormal swing through 11/14/2013 None Full Exam - General 1994 Musculoskeletal gait and station Gait: unable to turn quickly 11/14/2013 None Full Exam - General 1994 Musculoskeletal head and neck Overall: head atraumatic 11/14/2013 None Full Exam - General 1994 Musculoskeletal head and neck Overall: cervical spine benign 11/14/2013 None Full Exam - General 1994 Cardiovascular auscultation of heart Rhythm: irregular rhythm 11/14/2013 None Full Exam - General 1995 Cardiovascular auscultation of heart Rate: tachycardia 11/14/2013 None Procedures Procedure Codes Date TRIAMCINOLONE ACET INJ NOS CPT-4: J3301 08/28/2018 TRIAMCINOLONE ACET INJ NOS CPT-4: J3301 02/08/2018 PPPS, SUBSEQ VISIT CPT- 4: G0439 12/27/2017 THER/PROPH/DIAG INJ SC/IM CPT-4: 42587 09/07/2017 TRIAMCINOLONE ACET INJ NOS CPT-4: J3301 09/07/2017 ROUTINE VENIPUNCTURE CPT- 4: 16359 05/23/2014 THER/PROPH/DIAG INJ SC/IM CPT-4: 23377 11/28/2013 VITAMIN B12 INJECTION CPT- 4: J3420 11/28/2013 Vital Signs Date Vital 11/09/2018 Blood Pressure 1: 138/72 Code: 8480-6 BMI: 36.7 Code: 90811-2 Heart Rate 1: 72 bpm Height: 6' SpO2: 92% Weight: 270 lbs 6 oz 09/04/2018 Blood Pressure 1: 143/80 Code: 8480-6 BMI: 36.8 Code: 08499-1 Heart Rate 1: 88 bpm Height: 6' SpO2: 93% Weight: 271 lbs 08/28/2018 Blood Pressure 1: 144/72 Code: 8480-6 BMI: 36.8 Code: 30229-2 Heart Rate 1: 65 bpm Height: 6' SpO2: 97% Weight: 271 lbs 08/21/2018 Blood Pressure 1: 110/66 Code: 8480-6 BMI: 36.6 Code: 01075-1 Heart Rate 1: 70 bpm Height: 6' SpO2: 93% Weight: 270 lbs 06/27/2018 Blood Pressure 1: 124/70 Code: 8480-6 BMI: 36.6 Code: 14475-8 Heart Rate 1: 64 bpm Height: 6' SpO2: 96% Weight: 270 lbs 04/20/2018 Blood Pressure 1: 126/74 Code: 8480-6 BMI: 36.6 Code: 39397-1 Heart Rate 1: 60 bpm Height: 6' SpO2: 94% Weight: 270 lbs 03/21/2018 Blood Pressure 1: 138/74 Code: 8480-6 BMI: 36.8 Code: 10298-6 Heart Rate 1: 81 bpm Height: 6' SpO2: 98% Weight: 271 lbs 02/08/2018 Blood Pressure 1: 132/74 Code: 8480-6 BMI: 37.0 Code: 61648-0 Heart Rate 1: 82 bpm Height: 6' SpO2: 97% Weight: 273 lbs 12/27/2017 Blood Pressure 1: 148/78 Code: 8480-6 BMI: 36.3 Code: 66175-8 Heart Rate 1: 78 bpm Height: 6' SpO2: 93% Waist Measure (cm): 117 cm Weight: 268 lbs 12/06/2017 Blood Pressure 1: 122/70 Code: 8480-6 BMI: 36.6 Code: 68112-1 Heart Rate 1: 76 bpm Height: 6' SpO2: 93% Weight: 270 lbs 11/01/2017 BMI: 36.9 Code: 66649-8 Height: 6' Weight: 272 lbs 09/07/2017 Blood Pressure 1: 140/78 Code: 8480-6 BMI: 35.8 Code: 35492-5 Heart Rate 1: 76 bpm Height: 6' SpO2: 98% Weight: 264 lbs 06/07/2017 Blood Pressure 1: 138/86 Code: 8480-6 BMI: 36.3 Code: 81155-1 Heart Rate 1: 66 bpm Height: 6' SpO2: 95% Weight: 268 lbs 05/19/2017 Blood Pressure 1: 152/84 Code: 8480-6 BMI: 36.8 Code: 96704-7 Heart Rate 1: 70 bpm Height: 6' SpO2: 93% Weight: 271 lbs 05/09/2017 Blood Pressure 1: 138/76 Code: 8480-6 BMI: 36.6 Code: 98446-5 Heart Rate 1: 79 bpm Height: 6' SpO2: 93% Weight: 270 lbs 04/25/2017 Blood Pressure 1: 150/80 Code: 8480-6 Heart Rate 1: 58 bpm Height: SpO2: 94% Weight: 2017 Blood Pressure 1: 138/80 Code: 8480-6 BMI: 36.5 Code: 88987-1 Heart Rate 1: 76 bpm Height: 6' SpO2: 96% Weight: 269 lbs 03/29/2017 Blood Pressure 1: 118/68 Code: 8480-6 BMI: 36.9 Code: 76325-1 Heart Rate 1: 61 bpm Height: 6' SpO2: 95% Weight: 272 lbs 03/17/2017 Blood Pressure 1: 140/78 Code: 8480-6 BMI: 36.8 Code: 35517-4 Heart Rate 1: 91 bpm Height: 6' SpO2: 93% Weight: 271 lbs 03/08/2017 Blood Pressure 1: 152/84 Code: 8480-6 BMI: 36.8 Code: 72105-9 Heart Rate 1: 72 bpm Height: 6' SpO2: 92% Temperature: 36.6 (C) / 97.8 (F) Weight: 271 lbs 02/17/2017 Blood Pressure 1: 110/64 Code: 8480-6 BMI: 36.5 Code: 08106-6 Heart Rate 1: 62 bpm Height: 6' SpO2: 96% Weight: 269 lbs 01/18/2017 Blood Pressure 1: 140/80 Code: 8480-6 BMI: 36.5 Code: 32507-3 Heart Rate 1: 62 bpm Height: 6' SpO2: 94% Weight: 269 lbs 10/19/2016 Blood Pressure 1: 120/80 Code: 8480-6 BMI: 35.9 Code: 22025-4 Heart Rate 1: 64 bpm Height: 6' SpO2: 97% Weight: 265 lbs 08/17/2016 Blood Pressure 1: 112/76 Code: 8480-6 BMI: 36.1 Code: 68825-1 Heart Rate 1: 65 bpm Height: 6' SpO2: 97% Weight: 266 lbs 07/20/2016 Blood Pressure 1: 126/78 Code: 8480-6 BMI: 35.5 Code: 59544-1 Heart Rate 1: 60 bpm Height: 6' SpO2: 95% Weight: 262 lbs 04/19/2016 Blood Pressure 1: 132/78 Code: 8480-6 BMI: 35.1 Code: 34256-8 Heart Rate 1: 65 bpm Height: 6' SpO2: 98% Weight: 259 lbs 01/19/2016 Blood Pressure 1: 140/64 Code: 8480-6 BMI: 34.4 Code: 23997-6 Heart Rate 1: 61 bpm Height: 6' SpO2: 97% Weight: 254 lbs 10/16/2015 Blood Pressure 1: 108/66 Code: 8480-6 BMI: 35.3 Code: 42186-6 Heart Rate 1: 65 bpm Height: 6' SpO2: 96% Weight: 260 lbs 07/17/2015 Blood Pressure 1: 136/74 Code: 8480-6 BMI: 35.8 Code: 98513-4 Heart Rate 1: 59 bpm Height: 6' SpO2: 97% Weight: 263 lbs 13 oz 07/03/2015 Weight: 265 lbs 04/16/2015 Blood Pressure 1: 130/82 Code: 8480-6 BMI: 36.1 Code: 32910-4 Heart Rate 1: 7694 bpm Height: 6' SpO2: 94% Weight: 266 lbs 02/19/2015 Blood Pressure 1: 160/90 Code: 8480-6 BMI: 35.8 Code: 15088-8 Heart Rate 1: 78 bpm Height: 6' SpO2: 94% Weight: 264 lbs 11/20/2014 Blood Pressure 1: 140/96 Code: 8480-6 BMI: 34.6 Code: 34625-4 Heart Rate 1: 92 bpm Height: 6' SpO2: 95% Weight: 255 lbs 11/05/2014 Blood Pressure 1: 132/70 Code: 8480-6 BMI: 34.6 Code: 06523-9 Heart Rate 1: 96 bpm Height: 6' SpO2: 98% Weight: 255 lbs 09/19/2014 Blood Pressure 1: 152/86 Code: 8480-6 BMI: 35.8 Code: 15620-1 Heart Rate 1: 82 bpm Height: 6' SpO2: 95% Weight: 264 lbs 07/24/2014 Blood Pressure 1: 142/82 Code: 8480-6 BMI: 34.7 Code: 89400-3 Heart Rate 1: 72 bpm Height: 6' Weight: 256 lbs 05/23/2014 Blood Pressure 1: 150/82 Code: 8480-6 BMI: 33.4 Code: 86520-5 Heart Rate 1: 68 bpm Height: 6' Weight: 246 lbs 04/18/2014 Blood Pressure 1: 132/84 Code: 8480-6 BMI: 33.2 Code: 97985-3 Heart Rate 1: 80 bpm Height: 6' Weight: 245 lbs 02/21/2014 Blood Pressure 1: 138/82 Code: 8480-6 BMI: 32.4 Code: 29994-7 Heart Rate 1: 85 bpm Height: 6' SpO2: 98% Weight: 239 lbs 12/25/2013 Blood Pressure 1: 146/80 Code: 8480-6 BMI: 30.5 Code: 56825-5 Heart Rate 1: 100 bpm Height: 6' Weight: 225 lbs 11/28/2013 Blood Pressure 1: 120/64 Code: 8480-6 BMI: 30.4 Code: 97362-0 Heart Rate 1: 68 bpm Height: 6' Weight: 224 lbs 11/14/2013 Blood Pressure 1: 124/80 Code: 8480-6 BMI: 30.0 Code: 21163-6 Heart Rate 1: 76 bpm Height: 6' Weight: 221 lbs Functional Status No Functional Status data History of Present Illness Symptom Name Status Result Effective Date Notes Location in the lung 11/09/2018 None Location in the throat 11/09/2018 None Quality acute 11/09/2018 None Onset and Resolution sudden in onset 11/09/2018 None Onset of Symptom 3 days ago 11/09/2018 None Pertinent Findings Denies dyspnea 11/09/2018 None Location maxillary sinuses 11/09/2018 None Quality acute 11/09/2018 None Onset and Resolution Denies sudden in onset 11/09/2018 None Onset of Symptom 3 days ago 11/09/2018 None Pertinent Findings Denies fever 11/09/2018 None Pertinent Findings cough 11/09/2018 None Quality acute 09/04/2018 None Onset and Resolution sudden in onset 09/04/2018 None Limitation on Activities does not limit activities 09/04/2018 None Severity moderate 09/04/2018 itches Color pink 09/04/2018 None Onset of Symptom 2 weeks ago 09/04/2018 None Location-Major on the legs 08/28/2018 None Location-Major on the feet 08/28/2018 None Color red 08/28/2018 None Onset and Resolution sudden in onset 08/28/2018 None Onset of Symptom 1 week ago 08/28/2018 None Quality acute 08/28/2018 None Location-Extremities on the left leg 08/28/2018 foot, ankle and lower leg Limitation on Activities does not limit activities 08/28/2018 None Severity moderate 08/28/2018 itches Prior Treatments previously untreated 08/28/2018 None Quality chronic 08/21/2018 None Quality unsteady 08/21/2018 None Onset and Resolution ongoing 08/21/2018 None Limitation on Activities necessitates an aid 08/21/2018 None Frequency of Episodes daily 08/21/2018 None Location legs 08/21/2018 None Pertinent Findings motor weakness 08/21/2018 None Quality chronic 08/21/2018 None Quality primary hypertension 08/21/2018 None Onset and Resolution ongoing 08/21/2018 None Onset of Symptom during adulthood 08/21/2018 None Alleviating Factors medication 08/21/2018 None Location-Major on the arms 08/21/2018 None Location-Major on the back 08/21/2018 None Location-Major on the legs 08/21/2018 None Onset and Resolution Denies ongoing 08/21/2018 None Frequency of Episodes unchanged 08/21/2018 None Triggers no known triggers 08/21/2018 None Prior Treatments partially responsive to treatment 08/21/2018 None Blood Pressure Values patient checking blood pressure at home - did not bring in readings 08/21/2018 -Checked at [facility] Pertinent Findings Denies dizziness 08/21/2018 None Pertinent Findings dyspnea 08/21/2018 when he is singing or reading- he "runs out of air" Pertinent Findings decreased energy 08/21/2018 None Onset of Symptom months ago 08/21/2018 None Location-Major in a generalized area 06/27/2018 None Location-Major on the head 06/27/2018 None Location-Major on the arms 06/27/2018 None Quality chronic 06/27/2018 None Quality flaking 06/27/2018 None Quality pruritic 06/27/2018 None Onset and Resolution ongoing 06/27/2018 None Triggers no known triggers 06/27/2018 None shoulder pain Location diffusely 04/20/2018 None shoulder pain Location on the left shoulder 04/20/2018 None shoulder pain Quality constant 04/20/2018 None muscle weakness Location diffusely 04/20/2018 None muscle weakness Quality left-sided 04/20/2018 None shoulder pain Onset and Resolution ongoing 04/20/2018 None muscle weakness Onset and Resolution ongoing 04/20/2018 None gait abnormality Quality unsteady 03/21/2018 None gait abnormality Onset and Resolution ongoing 03/21/2018 None gait abnormality Pertinent Findings motor weakness 03/21/2018 None gait abnormality Assistive devices braces 03/21/2018 None gait abnormality Assistive devices walker 03/21/2018 None gait abnormality Quality chronic 03/21/2018 None gait abnormality Limitation on Activities necessitates an aid 03/21/2018 None gait abnormality Frequency of Episodes daily 03/21/2018 None gait abnormality Location legs 03/21/2018 None sinus congestion Location frontal sinuses 02/08/2018 None sinus congestion Quality constant 02/08/2018 None sinus congestion Quality pressure 02/08/2018 None sinus congestion Onset and Resolution sudden in onset 02/08/2018 None sinus congestion Onset of Symptom 1 weeks ago 02/08/2018 None sore throat Location diffusely 02/08/2018 None sore throat Quality intermittent 02/08/2018 None sore throat Quality scratchy 02/08/2018 None sore throat Onset and Resolution sudden in onset 02/08/2018 None sore throat Onset of Symptom 1 weeks ago 02/08/2018 None earache Location both ears 02/08/2018 None earache Onset and Resolution sudden in onset 02/08/2018 None earache Onset of Symptom 1 weeks ago 02/08/2018 None Annual Medicare Wellness Exam Alcohol Use does not drink any alcohol 12/27/2017 None Annual Medicare Wellness Exam Aspirin Use no 12/27/2017 None Annual Medicare Wellness Exam Blood Glucose (self reported) high (126 or higher) 12/27/2017 None Annual Medicare Wellness Exam Blood Pressure (self reported) diagnosed with hypertension 12/27/2017 None Annual Medicare Wellness Exam Cholesterol (self reported) don't know 12/27/2017 None Annual Medicare Wellness Exam Hemaglobin A-1C (self reported) don't know 12/27/2017 None Annual Medicare Wellness Exam Depression (last 6 months) almost never 12/27/2017 None Annual Medicare Wellness Exam Depression or Hopelessness almost never 12/27/2017 None Annual Medicare Wellness Exam Describe Your Health good 12/27/2017 None Annual Medicare Wellness Exam Exercise Habits exercises 7 days per week 12/27/2017 None Annual Medicare Wellness Exam Exercise Habits exercises 10-15 minutes per day 12/27/2017 None Annual Medicare Wellness Exam Handling Stress usually casa effectively 12/27/2017 None Annual Medicare Wellness Exam Stress almost never 12/27/2017 None Annual Medicare Wellness Exam Social & Emotional Support usually 12/27/2017 None Annual Medicare Wellness Exam Hours of Sleep 2-6 12/27/2017 None Annual Medicare Wellness Exam Interaction with Friends no 12/27/2017 None Annual Medicare Wellness Exam Interests & Pleasure almost never 12/27/2017 None Annual Medicare Wellness Exam Life Satisfaction satisfied 12/27/2017 None Annual Medicare Wellness Exam Motor Vehicle Safety always fastens seat belt: yes 12/27/2017 None Annual Medicare Wellness Exam Motor Vehicle Safety drives after drinking: no 12/27/2017 None Annual Medicare Wellness Exam Motor Vehicle Safety rides with someone who has been drinking: rare 12/27/2017 None Annual Medicare Wellness Exam Smoking and Tobacco Use non smoker 12/27/2017 None Annual Medicare Wellness Exam Sun Exposure protects skin when outdoors: no 12/27/2017 None Annual Medicare Wellness Exam Nutrition servings of fried food / high fat foods per day: 2 12/27/2017 None Annual Medicare Wellness Exam Nutrition servings of high fiber / whole grain per day: 1 12/27/2017 None Annual Medicare Wellness Exam Nutrition servings of vegetables / fruit per day: 2 12/27/2017 None shoulder pain Location diffusely 12/06/2017 None shoulder pain Quality constant 12/06/2017 None shoulder pain Location on the left shoulder 12/06/2017 None muscle weakness Location diffusely 12/06/2017 None muscle weakness Quality left-sided 12/06/2017 None hypertension Quality chronic 09/07/2017 None hypertension Quality primary hypertension 09/07/2017 None hypertension Onset of Symptom during adulthood 09/07/2017 None hypertension Blood Pressure Values patient checking blood pressure at home - did not bring in readings 09/07/2017 None hypertension Pertinent Findings dizziness 09/07/2017 -"a little bit this morning" hypertension Pertinent Findings edema 09/07/2017 "no more than normal" hypertension Onset and Resolution ongoing 09/07/2017 None hypertension Alleviating Factors medication 09/07/2017 None hypertension Pertinent Findings Denies dyspnea 09/07/2017 None cough Quality intermittent 09/07/2017 None cough Onset and Resolution ongoing 09/07/2017 None cough Quality worsening 09/07/2017 None cough Quality productive 09/07/2017 None cough Onset of Symptom several months ago 09/07/2017 None cough Frequency of Episodes daily 09/07/2017 None cough Frequency of Episodes increasing 09/07/2017 None cough Pertinent Findings Denies fever 09/07/2017 None cough Pertinent Findings nausea 09/07/2017 None cough Pertinent Findings post nasal drip 09/07/2017 None cough Pertinent Findings sputum production 09/07/2017 (yellowish) cough Pertinent Findings weakness 09/07/2017 None hypertension Quality chronic 06/07/2017 None hypertension Quality primary hypertension 06/07/2017 None hypertension Onset and Resolution ongoing 06/07/2017 None hypertension Onset of Symptom during adulthood 06/07/2017 None hypertension Alleviating Factors medication 06/07/2017 None hypertension Exacerbating Factors stress 06/07/2017 None hypertension Pertinent Findings Denies dizziness 06/07/2017 None hypertension Pertinent Findings Denies dyspnea 06/07/2017 None hypertension Pertinent Findings edema 06/07/2017 None flare up of rash Quality recurrent 06/07/2017 None flare up of rash Onset and Resolution ongoing 06/07/2017 None flare up of rash Severity worsening 06/07/2017 off and on flare up of rash Triggers no known triggers 06/07/2017 None hypertension Blood Pressure Values patient checking blood pressure at home - did not bring in readings 06/07/2017 None flare up of rash Onset of Symptom 3+ months ago 06/07/2017 None flare up of rash Pertinent Findings itching 06/07/2017 None flare up of rash Pertinent Findings pain 06/07/2017 None flare up of rash Frequency of Episodes daily 06/07/2017 None flare up of rash Quality erythematous 06/07/2017 None flare up of rash Quality flaking 06/07/2017 None flare up of rash Quality pruritic 06/07/2017 None flare up of rash Alleviating Factors no alleviating factors 06/07/2017 None hypertension Quality chronic 05/19/2017 None hypertension Quality primary hypertension 05/19/2017 None hypertension Onset and Resolution ongoing 05/19/2017 None hypertension Onset of Symptom during adulthood 05/19/2017 None hypertension Blood Pressure Values pt checking blood pressure - see scanned document 05/19/2017 None hypertension Alleviating Factors medication 05/19/2017 None hypertension Exacerbating Factors stress 05/19/2017 None hypertension Pertinent Findings Denies dizziness 05/19/2017 None hypertension Pertinent Findings Denies dyspnea 05/19/2017 None hypertension Pertinent Findings Denies edema 05/19/2017 None flare up of rash Quality recurrent 05/19/2017 None flare up of rash Onset and Resolution ongoing 05/19/2017 None flare up of rash Onset of Symptom 6 weeks ago 05/19/2017 None flare up of rash Limitation on Activities does not limit activities 05/19/2017 None flare up of rash Severity worsening 05/19/2017 off and on flare up of rash Triggers no known triggers 05/19/2017 None flare up of rash Alleviating Factors treatment medication 05/19/2017 None flare up of rash Quality recurrent 05/09/2017 None flare up of rash Onset and Resolution ongoing 05/09/2017 None flare up of rash Onset of Symptom 6 weeks ago 05/09/2017 None flare up of rash Limitation on Activities does not limit activities 05/09/2017 None flare up of rash Severity worsening 05/09/2017 off and on flare up of rash Triggers no known triggers 05/09/2017 None flare up of rash Alleviating Factors treatment medication 05/09/2017 None flare up of rash Location-Major on the feet 04/25/2017 left anterior foot flare up of rash Quality recurrent 04/25/2017 None flare up of rash Color erythematous 04/25/2017 None flare up of rash Onset and Resolution ongoing 04/25/2017 None flare up of rash Onset of Symptom 6 weeks ago 04/25/2017 None flare up of rash Limitation on Activities does not limit activities 04/25/2017 None flare up of rash Severity worsening 04/25/2017 off and on flare up of rash Triggers no known triggers 04/25/2017 None flare up of rash Alleviating Factors treatment medication 04/25/2017 None rash Quality acute 2017 None rash Quality erythematous 2017 None rash Pertinent Findings itching 2017 None cellulitis Quality acute 2017 None cellulitis Onset and Resolution improving 2017 None cellulitis Pertinent Findings Denies fever 2017 None cellulitis Pertinent Findings redness 2017 None cellulitis Pertinent Findings Denies itching 2017 None cellulitis Pertinent Findings Denies pain 2017 None cellulitis Location on the left foot 2017 None cellulitis Onset of Symptom 4+ weeks ago 2017 None rash Location-Major on the arms 2017 None rash Location-Major on the chest 2017 None rash Location-Trunk on the upper chest 2017 None rash Location-Extremities on both shoulders 2017 None rash Quality improving 2017 None foot ulcer Location left foot 03/29/2017 None foot ulcer Onset and Resolution sudden in onset 03/29/2017 None foot ulcer Limitation on Activities allows weight bearing activity 03/29/2017 None foot ulcer Severity mild 03/29/2017 None foot ulcer Pertinent Findings redness 03/29/2017 None foot ulcer Pertinent Findings tingling 03/29/2017 None foot ulcer Pertinent Findings warmth 03/29/2017 None rash Location-Major on the upper body 03/29/2017 None rash Pertinent Findings itching 03/29/2017 None rash Location-Extremities on the left arm 03/29/2017 None rash Location-Extremities on the right arm 03/29/2017 None rash Quality acute 03/29/2017 None rash Quality erythematous 03/29/2017 None rash Location-Trunk on the upper chest 03/29/2017 None foot ulcer Quality acute 03/29/2017 None foot ulcer Quality improving 03/29/2017 None foot ulcer Location left foot 03/17/2017 None foot ulcer Quality throbbing 03/17/2017 None foot ulcer Onset and Resolution sudden in onset 03/17/2017 None foot ulcer Limitation on Activities allows weight bearing activity 03/17/2017 None foot ulcer Severity mild 03/17/2017 None foot ulcer Pertinent Findings redness 03/17/2017 None foot ulcer Pertinent Findings tingling 03/17/2017 None foot ulcer Pertinent Findings warmth 03/17/2017 None rash Location-Major on the upper body 03/17/2017 None rash Location-Major on the lower body 03/17/2017 None rash Color red 03/17/2017 None rash Onset of Symptom 1 weeks ago 03/17/2017 None foot ulcer Location left foot 03/08/2017 None foot ulcer Quality throbbing 03/08/2017 None foot ulcer Onset and Resolution sudden in onset 03/08/2017 None foot ulcer Onset of Symptom 2 weeks ago 03/08/2017 None foot ulcer Limitation on Activities allows weight bearing activity 03/08/2017 None foot ulcer Pertinent Findings redness 03/08/2017 None foot ulcer Pertinent Findings tingling 03/08/2017 None foot ulcer Pertinent Findings warmth 03/08/2017 None foot ulcer Severity mild 03/08/2017 None hypertension Quality chronic 02/17/2017 None hypertension Quality primary hypertension 02/17/2017 None hypertension Onset and Resolution ongoing 02/17/2017 None hypertension Onset of Symptom during adulthood 02/17/2017 None hypertension Blood Pressure Values pt checking blood pressure - see scanned document 02/17/2017 None hypertension Alleviating Factors medication 02/17/2017 None hypertension Exacerbating Factors stress 02/17/2017 None hypertension Pertinent Findings Denies dizziness 02/17/2017 None hypertension Pertinent Findings Denies dyspnea 02/17/2017 None hypertension Pertinent Findings Denies edema 02/17/2017 None hypertension Quality chronic 01/18/2017 None hypertension Quality primary hypertension 01/18/2017 None hypertension Onset and Resolution ongoing 01/18/2017 None hypertension Onset of Symptom during adulthood 01/18/2017 None hypertension Blood Pressure Values pt checking blood pressure - see scanned document 01/18/2017 None hypertension Alleviating Factors medication 01/18/2017 None hypertension Exacerbating Factors stress 01/18/2017 None hypertension Pertinent Findings Denies dizziness 01/18/2017 None hypertension Pertinent Findings Denies dyspnea 01/18/2017 None hypertension Pertinent Findings Denies edema 01/18/2017 None hypertension Quality chronic 10/19/2016 None hypertension Onset and Resolution ongoing 10/19/2016 None hypertension Onset of Symptom during adulthood 10/19/2016 None hypertension Blood Pressure Values pt checking blood pressure - see scanned document 10/19/2016 None hypertension Alleviating Factors medication 10/19/2016 None hypertension Exacerbating Factors stress 10/19/2016 None hypertension Pertinent Findings Denies dizziness 10/19/2016 None hypertension Pertinent Findings Denies dyspnea 10/19/2016 None hypertension Pertinent Findings Denies edema 10/19/2016 None shoulder pain Location on the left shoulder 10/19/2016 None shoulder pain Quality intermittent 10/19/2016 None shoulder pain Onset and Resolution ongoing 10/19/2016 None shoulder pain Limitation on Activities moderately limits activities 10/19/2016 None shoulder pain Alleviating Factors rest 10/19/2016 None hypertension Quality primary hypertension 10/19/2016 None Hospital Follow Up _ Other: shoulder surgery 08/17/2016 None Hospital Follow Up Quality acute 08/17/2016 None Hospital Follow Up Pertinent Findings pain 08/17/2016 None Hospital Follow Up Pertinent Findings Other: doing much better 08/17/2016 None rash Location-Major on the head 08/17/2016 None rash Location-Head/Neck on the right cheek 08/17/2016 None rash Location-Head/Neck on the left cheek 08/17/2016 None rash Pertinent Findings Denies itching 08/17/2016 None rash Pertinent Findings Denies tenderness 08/17/2016 None hypertension Quality chronic 07/20/2016 None hypertension Onset and Resolution ongoing 07/20/2016 None hypertension Onset of Symptom during adulthood 07/20/2016 None hypertension Blood Pressure Values pt checking blood pressure - see scanned document 07/20/2016 None hypertension Alleviating Factors medication 07/20/2016 None hypertension Exacerbating Factors stress 07/20/2016 None hypertension Pertinent Findings Denies dizziness 07/20/2016 None hypertension Pertinent Findings Denies dyspnea 07/20/2016 None hypertension Pertinent Findings Denies edema 07/20/2016 None shoulder pain Location on the left shoulder 07/20/2016 None shoulder pain Quality intermittent 07/20/2016 None shoulder pain Onset and Resolution ongoing 07/20/2016 None shoulder pain Limitation on Activities moderately limits activities 07/20/2016 None shoulder pain Alleviating Factors rest 07/20/2016 None shoulder pain Pertinent Findings limited range of motion 07/20/2016 None shoulder pain Pertinent Findings Denies swelling 07/20/2016 None shoulder pain Pertinent Findings loss of range of motion 07/20/2016 None shoulder pain Pertinent Findings loss of strength 07/20/2016 None muscle weakness Quality both sides 07/20/2016 None muscle weakness Quality lower extremities 07/20/2016 None muscle weakness Onset and Resolution ongoing 07/20/2016 None muscle weakness Limitation on Activities moderately limits activities 07/20/2016 None hypertension Quality chronic 04/19/2016 None hypertension Onset and Resolution ongoing 04/19/2016 None hypertension Onset of Symptom during adulthood 04/19/2016 None hypertension Alleviating Factors medication 04/19/2016 None hypertension Exacerbating Factors stress 04/19/2016 None hypertension Pertinent Findings Denies dyspnea 04/19/2016 None shoulder pain Location on the right shoulder 04/19/2016 (does not hurt often) shoulder pain Location on the left shoulder 04/19/2016 -worse shoulder pain Onset and Resolution ongoing 04/19/2016 None shoulder pain Alleviating Factors rest 04/19/2016 None shoulder pain Pertinent Findings limited range of motion 04/19/2016 None shoulder pain Pertinent Findings Denies swelling 04/19/2016 None shoulder pain Pertinent Findings loss of range of motion 04/19/2016 None shoulder pain Pertinent Findings loss of strength 04/19/2016 None shoulder pain Quality intermittent 04/19/2016 None shoulder pain Limitation on Activities moderately limits activities 04/19/2016 None hypertension Blood Pressure Values pt checking blood pressure - see scanned document 04/19/2016 None hypertension Pertinent Findings Denies dizziness 04/19/2016 None hypertension Pertinent Findings edema 04/19/2016 -mild muscle weakness Quality lower extremities 04/19/2016 None muscle weakness Quality both sides 04/19/2016 None muscle weakness Onset and Resolution ongoing 04/19/2016 None muscle weakness Limitation on Activities moderately limits activities 04/19/2016 None hypertension Quality chronic 01/19/2016 None hypertension Onset and Resolution ongoing 01/19/2016 None hypertension Onset of Symptom during adulthood 01/19/2016 None hypertension Blood Pressure Values patient checking blood pressure at home - did not bring in readings 01/19/2016 None hypertension Triggers stress 01/19/2016 None hypertension Alleviating Factors medication 01/19/2016 None hypertension Exacerbating Factors stress 01/19/2016 None hypertension Pertinent Findings Denies dyspnea 01/19/2016 None shoulder pain Location on the right shoulder 01/19/2016 None shoulder pain Location on the left shoulder 01/19/2016 -worse shoulder pain Onset and Resolution ongoing 01/19/2016 None shoulder pain Onset and Resolution felt a pop 01/19/2016 None shoulder pain Alleviating Factors rest 01/19/2016 None shoulder pain Pertinent Findings limited range of motion 01/19/2016 None shoulder pain Pertinent Findings Denies swelling 01/19/2016 None shoulder pain Pertinent Findings loss of range of motion 01/19/2016 None shoulder pain Pertinent Findings loss of strength 01/19/2016 None hypertension Quality chronic 10/16/2015 None hypertension Onset and Resolution ongoing 10/16/2015 None hypertension Onset of Symptom during adulthood 10/16/2015 None hypertension Triggers stress 10/16/2015 None hypertension Alleviating Factors medication 10/16/2015 None hypertension Exacerbating Factors stress 10/16/2015 None hypertension Pertinent Findings Denies dizziness 10/16/2015 None hypertension Pertinent Findings Denies dyspnea 10/16/2015 None hypertension Pertinent Findings edema 10/16/2015 None shoulder pain Location on the left shoulder 10/16/2015 -worse shoulder pain Pertinent Findings Denies swelling 10/16/2015 None shoulder pain Location on the right shoulder 10/16/2015 None shoulder pain Onset and Resolution ongoing 10/16/2015 None shoulder pain Onset and Resolution felt a pop 10/16/2015 None shoulder pain Pertinent Findings limited range of motion 10/16/2015 None shoulder pain Pertinent Findings loss of range of motion 10/16/2015 None shoulder pain Pertinent Findings loss of strength 10/16/2015 None shoulder pain Alleviating Factors rest 10/16/2015 None hypertension Blood Pressure Values patient checking blood pressure at home - did not bring in readings 10/16/2015 None hypertension Quality chronic 07/17/2015 None hypertension Onset and Resolution ongoing 07/17/2015 None hypertension Onset of Symptom during adulthood 07/17/2015 None hypertension Triggers stress 07/17/2015 None hypertension Alleviating Factors medication 07/17/2015 None hypertension Exacerbating Factors change in dietary habits 07/17/2015 with weight gain hypertension Exacerbating Factors stress 07/17/2015 None hypertension Blood Pressure Values pt checking blood pressure - see scanned document 07/17/2015 None hypertension Pertinent Findings Denies dizziness 07/17/2015 None hypertension Pertinent Findings Denies dyspnea 07/17/2015 None hypertension Pertinent Findings Denies edema 07/17/2015 None hypertension Pertinent Findings Denies decreased energy 07/17/2015 None shoulder pain Location on the left shoulder 07/17/2015 None shoulder pain Quality acute 07/17/2015 tingling down left arm - Edi reports that when he has his blood pressure checked he has tingling in his arm from his bicep to his hand - shoulder pain Onset and Resolution sudden in onset 07/17/2015 None shoulder pain Onset of Symptom 1 weeks ago 07/17/2015 None shoulder pain Mechanism of injury unknown 07/17/2015 None shoulder pain Pertinent Findings Denies swelling 07/17/2015 None hypertension Onset and Resolution ongoing 04/16/2015 None hypertension Onset of Symptom during adulthood 04/16/2015 None hypertension Quality chronic 04/16/2015 None hypertension Triggers stress 04/16/2015 None hypertension Alleviating Factors medication 04/16/2015 None hypertension Exacerbating Factors stress 04/16/2015 None hypertension Exacerbating Factors change in dietary habits 04/16/2015 with weight gain headache Location in the right occipital area 02/19/2015 reports it is better using Maxitrol and Polytrim seeing eye dr in [place]. Reports eye still feels irritated. headache Quality aching 02/19/2015 intermittent throbbing pain headache Quality acute 02/19/2015 None headache Pertinent Findings Denies blurred vision 02/19/2015 None eye erythema Location in the right conjunctiva 02/19/2015 None eye erythema Quality acute 02/19/2015 None eye erythema Onset and Resolution sudden in onset 02/19/2015 None eye erythema Severity moderate 02/19/2015 None headache Onset and Resolution resolved 02/19/2015 None eye erythema Onset and Resolution resolved 02/19/2015 None hypertension Onset and Resolution ongoing 02/19/2015 None hypertension Onset of Symptom during adulthood 02/19/2015 None headache Location in the right occipital area 11/20/2014 reports it is better using Maxitrol and Polytrim seeing eye dr in [place]. Reports eye still feels irritated. headache Quality aching 11/20/2014 intermittent throbbing pain headache Quality acute 11/20/2014 None eye erythema Location in the right conjunctiva 11/20/2014 None eye erythema Quality acute 11/20/2014 None eye erythema Onset and Resolution sudden in onset 11/20/2014 None eye erythema Severity moderate 11/20/2014 None headache Pertinent Findings Denies blurred vision 11/20/2014 None earache Location right ear 11/20/2014 intermittent earache Quality acute 11/20/2014 None earache Severity moderate 11/20/2014 None earache Frequency of Episodes decreasing 11/20/2014 None headache Location in the right occipital area 11/05/2014 None headache Quality aching 11/05/2014 None headache Quality acute 11/05/2014 None eye erythema Location in the right conjunctiva 11/05/2014 None eye erythema Quality acute 11/05/2014 None eye erythema Onset and Resolution sudden in onset 11/05/2014 None eye erythema Severity moderate 11/05/2014 None nausea Onset and Resolution gradual in onset 11/05/2014 None nausea Triggers no known associated factors 11/05/2014 None ~generic Quality chronic 09/19/2014 Patient here for a face to face visit for a mobility eval. ~generic Onset of Symptom pt contracted polio as a child, he has had persistent symptoms of weakness since the illness 09/19/2014 - he reports that over the past few years he has been experiencing worsening weakness of his limbs. Edi reports that he has difficulty ambulating in the hallways with a walker or a cane. He reports that he has easy fatigue in his extremities to be able to propel a wheelchair to be able to actively participate in activities of daily living. He also reports weakness of his upper body for helping to assist himself out of a wheelchair due to his body habitus causing difficulty with the ability to lift himself from a seated position. ~generic Severity moderate 09/19/2014 None ~generic Significant Medical Conditions polio, foot drop, post-polio syndrome, osteoarthritis of knees 09/19/2014 None cataract Location in both eyes 07/24/2014 left eye had hemorrhaging and cataract getting worse,. Sees eye dr for that. cataract Location in the right eye 07/24/2014 getting better neck pain Location in the trapezius muscle 07/24/2014 starts in the neck burning feeling neck pain Location on the right 07/24/2014 None neck pain Onset of Symptom _ months ago 07/24/2014 None neck pain Frequency of Episodes increasing 07/24/2014 has had a previous neck surgery in area of burning pain, c4-t1 he thinks neck pain Pertinent Findings right arm weakness 07/24/2014 since neck surgery, thumb and first finger numbness. nocturia Quality chronic 07/24/2014 None nocturia Onset and Resolution ongoing 07/24/2014 reports that better nocturia Onset of Symptom _ months ago 07/24/2014 None nocturia Severity mild 07/24/2014 None nocturia Severity moderate 07/24/2014 None nocturia Frequency of Episodes 2-3 times a night 07/24/2014 only got up 3:30 and 6:00 one night, so he thinks maybe getting better nocturia Timing of Episodes at night 07/24/2014 None nocturia Triggers no known associated factors 07/24/2014 None nocturia Pertinent Findings Denies fever 07/24/2014 None nocturia Pertinent Findings Denies nausea 07/24/2014 None nocturia Pertinent Findings Denies pelvic pain 07/24/2014 None nocturia Pertinent Findings Denies testicular pain 07/24/2014 None nocturia Pertinent Findings Denies urinary urgency 07/24/2014 None nocturia Pertinent Findings Denies vomiting 07/24/2014 None nocturia Pertinent Findings Denies weight loss 07/24/2014 None abdominal pain Location in the LUQ 07/24/2014 below rib cage abdominal pain Quality cramping 07/24/2014 None abdominal pain Onset of Symptom 1 days ago 07/24/2014 None neck pain Quality intermittent 07/24/2014 None cataract Location in the right eye 05/23/2014 getting better cataract Location in both eyes 05/23/2014 left eye had hemorrhaging and cataract getting worse,. Sees eye dr for that. neck pain Location in the trapezius muscle 05/23/2014 starts in the neck burning feeling neck pain Location on the right 05/23/2014 None neck pain Onset of Symptom _ months ago 05/23/2014 None neck pain Frequency of Episodes increasing 05/23/2014 has had a previous neck surgery in area of burning pain, c4-t1 he thinks neck pain Pertinent Findings right arm weakness 05/23/2014 since neck surgery, thumb and first finger numbness. lower leg pain Location on the right 05/23/2014 history of polio, wears brace, requesting new brace lower leg pain Pertinent Findings decreased range of motion 05/23/2014 None lower leg pain Pertinent Findings instability 05/23/2014 None lower leg pain Quality chronic 05/23/2014 None lower leg pain Onset and Resolution ongoing 05/23/2014 None lower leg pain Onset of Symptom _ years ago 05/23/2014 None lower leg pain Frequency of Episodes increasing 05/23/2014 unsteady with current brace-doesn't feel like he is getting much support. lower leg pain Limitation on Activities allows weight bearing activity 05/23/2014 None lower leg pain Sports Participation not significant 05/23/2014 None lower leg pain Alleviating Factors orthotic device 05/23/2014 None nocturia Quality chronic 05/23/2014 None nocturia Onset and Resolution ongoing 05/23/2014 None nocturia Onset of Symptom _ months ago 05/23/2014 None nocturia Severity mild 05/23/2014 None nocturia Severity moderate 05/23/2014 None nocturia Frequency of Episodes increasing 05/23/2014 None nocturia Frequency of Episodes 4-6 times a night 05/23/2014 None nocturia Timing of Episodes at night 05/23/2014 None nocturia Triggers no known associated factors 05/23/2014 None nocturia Pertinent Findings Denies fever 05/23/2014 None nocturia Pertinent Findings Denies nausea 05/23/2014 None nocturia Pertinent Findings Denies pelvic pain 05/23/2014 None nocturia Pertinent Findings Denies testicular pain 05/23/2014 None nocturia Pertinent Findings Denies urinary urgency 05/23/2014 None nocturia Pertinent Findings Denies vomiting 05/23/2014 None nocturia Pertinent Findings Denies weight loss 05/23/2014 None headache Location diffusely 04/18/2014 None headache Quality aching 04/18/2014 None headache Quality intermittent 04/18/2014 None headache Triggers no known associated factors 04/18/2014 None shortness of breath Quality intermittent 02/21/2014 gets short of breath when he bends over shortness of breath Triggers activity 02/21/2014 None shortness of breath Alleviating Factors rest 02/21/2014 None shortness of breath Onset and Resolution ongoing 02/21/2014 None shortness of breath Limitation on Activities does not limit activities 02/21/2014 None shortness of breath Frequency of Episodes unchanged 02/21/2014 None blisters Location-Major on the feet 12/25/2013 soles of feet blisters Quality recurrent 12/25/2013 None blisters Color red 12/25/2013 None blisters Pertinent Findings history of similar rash 12/25/2013 None blisters Pertinent Findings itching 12/25/2013 None blisters Pertinent Findings tenderness 12/25/2013 drainage blisters Onset and Resolution ongoing 12/25/2013 None blisters Onset of Symptom 2 years ago 12/25/2013 comes and goes. itches xin at night blisters Limitation on Activities does not limit activities 12/25/2013 None blisters Severity worsening 12/25/2013 None blisters Prior Treatments previously treated 12/25/2013 treated for athlete's foot and went away temporarily, feet stay moist during the day-wears braces and shoes all days insomnia Quality difficulty falling asleep 11/28/2013 None insomnia Quality disrupted sleep 11/28/2013 None insomnia Pertinent Findings Denies dizziness 11/28/2013 None insomnia Pertinent Findings Denies dyspnea 11/28/2013 None insomnia Pertinent Findings Denies leg cramps 11/28/2013 None insomnia Pertinent Findings Denies restless leg 11/28/2013 None abdominal pain Location in the epigastric area 11/28/2013 None abdominal pain Onset of Symptom 1 weeks ago 11/28/2013 None abdominal pain Pertinent Findings bloating 11/28/2013 None abdominal pain Pertinent Findings heartburn 11/28/2013 None abdominal pain Pertinent Findings Denies nausea 11/28/2013 None insomnia Quality chronic 11/28/2013 None insomnia Onset and Resolution ongoing 11/28/2013 - he states that if he gets 4 hours of sleep he is amazed - back pain Location lumbar-sacral spine 11/14/2013 None back pain Quality intermittent 11/14/2013 None arrhythmia Quality intermittent 11/14/2013 states he does have episodes where his heart beats hard and fast, ususally on a weekly basis but he has never had it investigated insomnia Quality chronic 11/14/2013 None insomnia Quality disrupted sleep 11/14/2013 states he is yasmany to get 8 hrs of sleep 2x a year insomnia Quality difficulty falling asleep 11/14/2013 None insomnia Onset and Resolution ongoing 11/14/2013 - he states that if he gets 4 hours of sleep he is amazed - arrhythmia Onset and Resolution ongoing 11/14/2013 None arrhythmia Onset of Symptom during adulthood 11/14/2013 None arrhythmia Quality tachycardia 11/14/2013 None back pain Onset and Resolution gradual in onset 11/14/2013 None back pain Triggers bending 11/14/2013 None back pain Triggers lifting 11/14/2013 None back pain Triggers twisting 11/14/2013 None back pain Triggers activity 11/14/2013 None back pain Triggers position change 11/14/2013 None arrhythmia Triggers no known associated factors 11/14/2013 None arrhythmia Pertinent Findings Denies anxiety 11/14/2013 None arrhythmia Pertinent Findings Denies dizziness 11/14/2013 None arrhythmia Pertinent Findings Denies dyspnea 11/14/2013 None arrhythmia Pertinent Findings Denies fever 11/14/2013 None Advance Directives No Advance Directive data Encounters Encounter Performer Location Codes Date 92960 EST. PATIENT, LEVEL IV Diagnosis: Other acute sinusitis[ICD10: J01.80] Diagnosis: Other allergic rhinitis[ICD10: J30.89] Antoinette Long MD, [facility] CPT- 4: 80272 11/09/2018 ([id number]) 72067 EST. PATIENT, LEVEL II Diagnosis: Rash and other nonspecific skin eruption[ICD10: R21] Glory Long MD, [facility] CPT-4: 97830 09/04/2018 ([id number]) 02267 EST. PATIENT, LEVEL III Diagnosis: Rash and other nonspecific skin eruption[ICD10: R21] Diagnosis: Other pruritus[ICD10: L29.8] Glory Long MD, [facility] CPT-4: 12084 08/28/2018 ([id number]) 69011 EST. PATIENT, LEVEL IV Diagnosis: Essential (primary) hypertension[ICD10: I10] Diagnosis: Pain in right shoulder[ICD10: M25.511] Diagnosis: Muscle weakness (generalized)[ICD10: M62.81] Quyen Long MD, [facility] CPT-4: 77164 08/21/2018 31403 EST. PATIENT, LEVEL III Diagnosis: Tinea barbae and tinea capitis[ICD10: B35.0] Glory Long MD, [facility] CPT-4: 73027 06/27/2018 ([id number]) 54993 EST. 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 CPT-4: 33509 04/20/2018 ([id number]) 53076 EST. 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 CPT-4: 83954 03/21/2018 [id number] EST. PATIENT, LEVEL III Diagnosis: Acute bronchitis due to other specified organisms[ICD10: J20.8] Antoinette Long MD, [facility] CPT-4: 18598 02/08/2018 ([id number]) 11317 EST. 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 CPT-4: 95780 12/06/2017 ([id number]) Miscellaneous no charge Diagnosis: Obesity, unspecified[ICD10: E66.9] Quyen Long MD, [facility] CPT- 4: 12517 11/01/2017 ([id number]) 61354 EST. 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 CPT-4: 55989 09/07/2017 ([id number]) 46593 EST. PATIENT, LEVEL III Diagnosis: Essential (primary) hypertension[ICD10: I10] Diagnosis: Localized edema[ICD10: R60.0] Diagnosis: Cellulitis of left lower limb[ICD10: L03.116] Quyen Long MD, [facility] CPT-4: 12228 06/07/2017 ([id number]) 22448 EST. 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 CPT-4: 41732 05/19/2017 ([id number]) 31659 EST. PATIENT, LEVEL II Diagnosis: Rash and other nonspecific skin eruption[ICD10: R21] Glory Long MD, [facility] CPT-4: 70848 05/09/2017 ([id number]) 75589 EST. PATIENT, LEVEL II Diagnosis: Rash and other nonspecific skin eruption[ICD10: R21] Glory Long MD, [facility] CPT-4: 09122 04/25/2017 ([id number]) 40910 EST. PATIENT, LEVEL III Diagnosis: Cellulitis of left lower limb[ICD10: L03.116] Diagnosis: Rash and other nonspecific skin eruption[ICD10: R21] Glory Long MD, [facility] CPT-4: 99956 2017 ([id number]) 09716 EST. PATIENT, LEVEL III Diagnosis: Cellulitis of left lower limb[ICD10: L03.116] Diagnosis: Rash and other nonspecific skin eruption[ICD10: R21] Glory Long MD, [facility] CPT-4: 51352 03/29/2017 [id number] EST. PATIENT, LEVEL IV Diagnosis: Cellulitis of left lower limb[ICD10: L03.116] Antoinette Long MD, [facility] CPT-4: 43307 03/17/2017 ([id number]) 58778 EST. PATIENT, LEVEL III Diagnosis: Rash and other nonspecific skin eruption[ICD10: R21] Glory Long MD, [facility] CPT-4: 31106 03/08/2017 17782 EST. PATIENT, LEVEL IV Diagnosis: Essential (primary) hypertension[ICD10: I10] Diagnosis: Muscle weakness (generalized)[ICD10: M62.81] Diagnosis: Body mass index (BMI) 36.0-36.9, adult[ICD10: Z68.36] Diagnosis: Family history of ischemic heart disease and other diseases of the circulatory system[ICD10: Z82.49] Antoinette Long MD, [facility] CPT-4: 26477 02/17/2017 ([id number]) 91917 EST. PATIENT, LEVEL IV Diagnosis: Essential (primary) hypertension[ICD10: I10] Diagnosis: Muscle weakness (generalized)[ICD10: M62.81] Quyen Long MD, [facility] CPT-4: 43013 01/18/2017 ([id number]) 77934 EST. 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 CPT-4: 24900 10/19/2016 ([id number]) 01170 EST. PATIENT, LEVEL III Diagnosis: Pain in left shoulder[ICD10: M25.512] Diagnosis: Rash and other nonspecific skin eruption[ICD10: R21] Glory Long MD, [facility] CPT-4: 55470 08/17/2016 ([id number]) 87094 EST. PATIENT, LEVEL IV Diagnosis: Essential (primary) hypertension[ICD10: I10] Diagnosis: Pain in left shoulder[ICD10: M25.512] Quyen Long MD, [facility] CPT-4: 12652 07/20/2016 ([id number]) 02797 EST. 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 CPT-4: 25569 04/19/2016 51162 EST. 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 CPT-4: 17272 01/19/2016 ([id number]) 09329 EST. 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 CPT-4: 94874 10/16/2015 ([id number]) 75223 EST. 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 CPT- 4: 11397 07/17/2015 ([id number]) Miscellaneous no charge Diagnosis: Obesity, unspecified[ICD10: E66.9] Quyen Long MD [facility] CPT- 4: 75002 07/03/2015 ([id number]) 47503 EST. PATIENT, LEVEL IV Diagnosis: Essential (primary) hypertension[ICD10: I10] Diagnosis: Other abnormal glucose[ICD10: R73.09] Diagnosis: Gastro-esophageal reflux disease without esophagitis[ICD10: K21.9] Diagnosis: Obesity, unspecified[ICD10: E66.9] Quyen Long MD [facility] CPT- 4: 27755 04/16/2015 ([id number]) 28791 EST. PATIENT, LEVEL IV Diagnosis: ESSENTIAL HYPERTENSION[ICD9: 401.9] Diagnosis: OBESITY[ICD9: 278.00] Diagnosis: Post-polio limb muscle weakness[ICD9: 728.87] Quyen Long MD, [facility] CPT-4: 38496 02/19/2015 ([id number]) 45622 EST. PATIENT, LEVEL IV Diagnosis: Shingles outbreak[ICD9: 053.9] Diagnosis: ESSENTIAL HYPERTENSION[ICD9: 401.9] Diagnosis: Earache[ICD9: 388.70] Quyen Long MD, [facility] CPT-4: 81971 11/20/2014 ([id number]) 29194 EST. PATIENT, LEVEL III Diagnosis: Shingles outbreak[ICD9: 053.9] Diagnosis: Face pain[ICD9: 784.0] Diagnosis: Pain, eye, right[ICD9: 379.91] Quyen Long MD [facility] CPT-4: 55378 11/05/2014 ([id number]) 95211 EST. PATIENT, LEVEL V Diagnosis: Post-polio limb muscle weakness[ICD9: 728.87] Diagnosis: Post-polio syndrome[ICD9: 138] Diagnosis: Leg weakness[ICD9: 729.89] Diagnosis: Weakness[ICD9: 780.79] Diagnosis: Foot drop[ICD9: 736.79] Quyen Long MD, [facility] CPT-4: 62173 09/19/2014 ([id number]) 10490 EST. PATIENT, LEVEL IV Diagnosis: ESSENTIAL HYPERTENSION[ICD9: 401.9] Diagnosis: Carotid bruit[ICD9: 785.9] Diagnosis: Seborrheic dermatitis[ICD9: 690.10] Diagnosis: Post-polio syndrome[ICD9: 138] Diagnosis: Vitamin D deficiency[ICD9: 268.9] Quyen Long MD, [facility] CPT- 4: 85356 07/24/2014 ([id number]) 83965 EST. PATIENT, LEVEL IV Diagnosis: Neck pain[ICD9: 723.1] Diagnosis: Post-polio syndrome[ICD9: 138] Diagnosis: Vitamin D deficiency[ICD9: 268.9] Diagnosis: Vitamin B12 deficiency[ICD9: 266.2] Diagnosis: Nocturia[ICD9: 788.43] Diagnosis: Leg weakness[ICD9: 729.89] Diagnosis: Elevated blood sugar[ICD9: 790.29] Glory Long MD, [facility] CPT- 4: 60928 05/23/2014 ([id number]) 83393 EST. PATIENT, LEVEL IV Diagnosis: ESSENTIAL HYPERTENSION[ICD9: 401.9] Diagnosis: HEADACHE[ICD9: 784.0] Diagnosis: EDEMA[ICD9: 782.3] Quyen Long MD, [facility] CPT-4: 58276 04/18/2014 43806 EST. PATIENT, LEVEL IV Diagnosis: Insomnia[ICD9: 780.52] Diagnosis: Post-polio syndrome[ICD9: 138] Diagnosis: Vitamin D deficiency[ICD9: 268.9] Diagnosis: Nocturnal hypoxemia[ICD9: 799.02] Glory Long MD, [facility] CPT- 4: 15289 02/21/2014 ([id number]) 67945 EST. PATIENT, LEVEL III Diagnosis: Tinea pedis[ICD9: 110.4] Diagnosis: Post-polio limb muscle weakness[ICD9: 728.87] Glory Long MD, [facility] CPT-4: 44923 12/25/2013 ([id number]) 79230 EST. PATIENT, LEVEL IV Diagnosis: Insomnia[ICD9: 780.52] Diagnosis: Vitamin B12 deficiency (dietary) anemia[ICD9: 281.1] Diagnosis: VITAMIN D DEFICIENCY[ICD9: 268.9] Diagnosis: Weakness[ICD9: 780.79] [facility] CPT-4: 12036 11/28/2013 ([id number]) OFFICE/OUTPATIENT VISIT NEW Diagnosis: Post-polio limb muscle weakness[ICD9: 728.87] Diagnosis: Post-polio syndrome[ICD9: 138] Diagnosis: Insomnia[ICD9: 780.52] Diagnosis: Arrhythmia[ICD9: 427.9] [facility] CPT-4: 88866 11/14/2013 Plan of Care Planned Activity Notes Codes Status Date Visit Plan: Sinusitis - Pt has acute infection - pain in face, maxillary region, Pt informed to use decongestant, RX given to patient, sinus rinses also recommended. Call if symptoms do not show improvement. Allergies - chronic - recommended pt to use allergy medication as prescribed. Pt has been counseled as to the appropriate use of the medication. Pt to call if allergy symptoms are not controlled with the medication. If using nasal spray, instructions as follows: Nasal spray- use twice daily, one spray per nostril twice daily, after 30 minutes, rinse out nose with saline spray.. Use opposite hand per nostril to spray in the nasal steroid allergy spray. 11/09/2018 Appointment: Antoinette Arndt WPtel: [address] [place], [place] [id number] (15 min) Moderate 11/09/2018 Patient Education: Patient Medication Summary Completed 11/09/2018 Patient Education: Obesity Completed 11/09/2018 Visit Plan: Rash-resolved -continue topical betamethasone cream as ordered-call if rash returns 09/04/2018 Appointment: Glory Dalton WPtel: [phone] (30 min) Complex 09/04/2018 Patient Education: Patient Medication Summary Completed 09/04/2018 Visit Plan: Rash-culture today in the office -kenalog injection for acute symptoms -start prednisone tomorrow- treat with abx if indicated on culture- follow up in 1 week, sooner if needed 08/28/2018 Appointment: Glory Dalton WPtel: [phone] (30 min) Complex 08/28/2018 Patient Education: Patient Medication Summary Completed 08/28/2018 Appointment: Quyen Long WPtel: [address] [place], [place] [phone] (15 min) Moderate 08/24/2018 Visit Plan: Hypertension - well controlled - continue with current medications, continue with no added salt diet. Pt has been encouraged to exercise daily. The pt has been advised to call the office if there are any acute concerns about change in blood pressure readings at home. Right shoulder AC Joint pain - discussed with pt - if it does not improve - he will need to see Dr. Wilson for an injection. Muscle weakness - generalized due to Post-Polio syndrome. 08/21/2018 Appointment: Quyen Long WPtel: [phone] (15 min) Moderate 08/21/2018 Patient Education: Patient Medication Summary Completed 08/21/2018 Patient Education: Hypertension Completed 08/21/2018 Visit Plan: Tinea barbae -rx for ketoconazole written and instructed patient on use -instructed patient to call or return to clinic if symptoms do not resolve or if any worse. Patient verbalized understanding of plan. 06/27/2018 Appointment: Glory Dalton WPtel[phone] (30 min) Complex 06/27/2018 Patient Education: Patient Medication Summary Completed 06/27/2018 Visit Plan: Hypertension - well controlled - continue with current medications, continue with no added salt diet. Pt has been encouraged to exercise daily. The pt has been advised to call the office if there are any acute concerns about change in blood pressure readings at home. 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 Shoulder pain - recommended that his sister needs to call Dr. Wilson about possibly getting another injection into his shoulder. 04/20/2018 Appointment: Quyen Long WPtel: [phone] [phone] (15 min) Moderate 04/20/2018 Patient Education: Patient Medication Summary Completed 04/20/2018 Patient Education: Hypertension Completed 04/20/2018 Appointment: Quyen Long WPtel: [phone] [facility] (15 min) Moderate 04/11/2018 Visit Plan: Post polio syndrome -right leg weakness -patient needs repair and adjustment of his right leg brace that helps with his symptoms of instability and weakness and allows him to ambulate -will send rx to [facility] 03/21/2018 Appointment: Glory Dalton WPtel: [phone] [phone] [place] (15 min) Moderate 03/21/2018 Patient Education: Patient Medication Summary Completed 03/21/2018 Visit Plan: Bronchitis - acute case of bronchitis identified. Pt has been given antibiotics, breathing treatments as appropriate, and pt has been instructed to call if symptoms are not improved, or if symptoms acutely worsen. 02/08/2018 Visit Plan: Bronchitis - acute case of bronchitis identified. Pt has been given antibiotics, breathing treatments as appropriate, and pt has been instructed to call if symptoms are not improved, or if symptoms acutely worsen. 02/08/2018 Appointment: Antoinette Arndt WPtel: [phone] [phone] [place] (30 min) Complex 02/08/2018 Patient Education: Patient Medication Summary Completed 02/08/2018 Visit Plan: Medicare Exam - today we discussed the patients past history, immunizations, preventative exams/evaluations - colonoscopy, fecal occult blood testing, routine labs for renal function, glucose, cholesterol, osteoporosis evaluations, cardiovascular testing and cancer screenings. We have also discussed mental health and the signs/symptoms of depression. The patient was advised of home safety evaluations and the need to make sure that as the aging process continues, we need to be aware of different ways to make the home a safer place to reside. The patient has also been counseled that exercise is necessary - and of utmost importance as we age to help decrease fall risk and to maintain independence in the home. Today we discussed the need for the patient to create paperwork for Advanced directives as well as for the patient to provide this office with a copy of her DOPA paperwork for health care surrogate. 12/27/2017 Patient Education: Patient Medication Summary Completed 12/27/2017 Appointment: [phone] [facility] (15 min) Moderate 12/08/2017 Visit Plan: Hypertension - well controlled - continue with current medications, continue with no added salt diet. Pt has been encouraged to exercise daily. The pt has been advised to call the office if there are any acute concerns about change in blood pressure readings at home. Shoulder pain and Generalized weakness due to Polio - I have recommended that pt should restart physical therapy. I have recommended that the pt call Dr. Wilson's office to get an appt with addie for shoulder injection. 12/06/2017 Visit Plan: Hypertension - well controlled - continue with current medications, continue with no added salt diet. Pt has been encouraged to exercise daily. The pt has been advised to call the office if there are any acute concerns about change in blood pressure readings at home. Shoulder pain and Generalized weakness due to Polio - I have recommended that pt should restart physical therapy. I have recommended that the pt call Dr. Wilson's office to get an appt with addie for shoulder injection. 12/06/2017 Appointment: [facility]el[facility] [phone] [phone] (15 min) Moderate 12/06/2017 Patient Education: Patient Medication Summary Completed 12/06/2017 Appointment: Nurse Visit 11/01/2017 Patient Education: Patient Medication Summary Completed 11/01/2017 Visit Plan: Post polio syndrome - back-up brace for right leg - rx for edi to [facility]. Hypertension - well controlled - continue with current medications, continue with no added salt diet. Pt has been e ncouraged to exercise daily. The pt has been advised to call the office if there are any acute concerns about change in blood pressure readings at home. Weakness - continue with therapy. Obesity - chronic issue with this patient. The pt has been counseled about diet changes, calorie restriction, and need to exercise. Pt will RTC in one month for weight check. 09/07/2017 Visit Plan: Post polio syndrome - back-up brace for right leg - rx for edi to [facility]. 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 He ambulates in the halls and in his room at the assisted living facility and it has become increasingly more difficult for Edi to ambulate due to his knee instability. He needs new drop lock rings on his braces as this allowed him to bend his knees while seated and lock his knees straight when ambulating. I have written a script for him for the new braces as the old braces have caused him to fall due to his knee instability as they do not have the locking mechanisms in place that he needs. Hypertension - well controlled - continue with current medications, continue with no added salt diet. Pt has been encouraged to exercise daily. The pt has been advised to call the office if there are any acute concerns about change in blood pressure readings at home. Weakness - continue with therapy. Obesity - chronic issue with this patient. The pt has been counseled about diet changes, calorie restriction, and need to exercise. Pt will RTC in one month for weight check. 09/07/2017 Appointment: Quyen Long WPtel: [address] [place], [place] [phone] (15 min) Moderate 09/07/2017 Patient Education: Patient Medication Summary Completed 09/07/2017 Appointment: Nurse Visit 08/01/2017 Visit Plan: Hypertension - well controlled - continue with current medications, continue with no added salt diet. Pt has been encouraged to exercise daily. The pt has been advised to call the office if there are any acute concerns about change in blood pressure readings at home. Edema - continue with lasix, compression. Rash - continue with antibiotics and dressings to lower leg. 06/07/2017 Appointment: Quyen Long WPtel: [phone] (15 min) Moderate 06/07/2017 Patient Education: Patient Medication Summary Completed 06/07/2017 Visit Plan: Hypertension - well controlled - continue with current medications, continue with no added salt diet. Pt has been encouraged to exercise daily. The pt has been advised to call the office if there are any acute concerns about change in blood pressure readings at home. Post-polio syndrome - monitor symptoms - supportive care. Tinea pedis - supportive care - continue with ketaconazole and referral to Dr. Thomas. Edema - compression recommended. 05/19/2017 Appointment: Quyen Long WPtel: [phone] (15 min) Moderate 05/19/2017 Patient Education: Patient Medication Summary Completed 05/19/2017 Patient Education: Obesity Completed 05/19/2017 Patient Education: Hypertension Completed 05/19/2017 Visit Plan: Rash-left utbs-nxigikwt-fidgvdgive patient to continue using ketoconazole plus betamethasone equal parts and increase to TID-leave foot open to air as much as possible-follow up in 2 weeks, sooner if needed. 05/09/2017 Appointment: Glory Dalton WPtel: [phone] (30 min) Complex 05/09/2017 Patient Education: Patient Medication Summary Completed 05/09/2017 Patient Education: Obesity Completed 05/09/2017 Visit Plan: Rash-left foot-Dr Long in to evaluate rash-instructed patient to start using ketoconazole plus betamethasone equal parts TID -follow up in 2 weeks, sooner if needed. 04/25/2017 Appointment: Glory Dalton WPtel: [phone] (30 min) Complex 04/25/2017 Patient Education: Patient Medication Summary Completed 04/25/2017 Visit Plan: Cellulitis of left foot-no longer draining-no open areas-no excoriation-slightly red-okay to d/c all treatments-keep clean and monitor-call if redness does not resolve Rash-resolved 2017 Appointment: Glory Dalton WPtel: [phone] (30 min) Complex 2017 Patient Education: Patient Medication Summary Completed 2017 Patient Education: Obesity Completed 2017 Visit Plan: Cellulitis-left foot-MSSA fuvgyone-blkmzzrid-gdywz air in the evening-continue bactroban ointment twice daily-stop using alcohol on foot-no papertowels or abrasives to foot Jqef-zogb-wu for betamethasone provided and instructed on use 03/29/2017 Appointment: Glory Dalton WPtel: [phone] (30 min) Complex 03/29/2017 Patient Education: Patient Medication Summary Completed 03/29/2017 Patient Education: Obesity Completed 03/29/2017 Appointment: Glory Dalton WPtel: [phone] (30 min) Complex 03/22/2017 Visit Plan: Cellulitis - left foot - The patient was instructed in appropriate wound care. The patient was instructed to use the antibiotic ointment as per RX. The patient is to call for any change in symptoms, increase in size of the lesion, increase in pain, worsening redness, warmth, discharge. 03/17/2017 Visit Plan: Cellulitis - left foot - The patient was instructed in appropriate wound care. The patient was instructed to use the antibiotic ointment as per RX. The patient is to call for any change in symptoms, increase in size of the lesion, increase in pain, worsening redness, warmth, discharge. 03/17/2017 Appointment: Antoinette Arndt WPtel: [address] [place], [place] [phone] (30 min) Complex 03/17/2017 Patient Education: Patient Medication Summary Completed 03/17/2017 Visit Plan: Rash-left foot-will culture to r/o bacteria-suspect fungus-will treat with anti fungal-keep foot clean/dry-changes dressings as directed-follow up in 2 weeks if symptoms not resolved-patient and sister verbalized understanding of plan. 03/08/2017 Patient Education: Patient Medication Summary Completed 03/08/2017 Visit Plan: Hypertension - well controlled - continue with current medications, continue with no added salt diet. Pt has been encouraged to exercise daily. The pt has been advised to call the office if there are any acute concerns about change in blood pressure readings at home. Weakness - continue with therapy, will fill out paperwork for insurance to cover his leg brace. Family history of aneurysm - will consult cardiology to see about ordering screenings. Obesity - chronic issue with this patient. The pt has been counseled about diet changes, calorie restriction, and need to exercise. Pt will RTC in one month for weight check. 02/17/2017 Appointment: (15 min) Moderate 02/17/2017 Patient Education: Patient Medication Summary Completed 02/17/2017 Patient Education: Obesity Completed 02/17/2017 Patient Education: Hypertension Completed 02/17/2017 Care Plan: BMI Above normal followup SELF-MGMT EDUC & TRAIN 1 PT Pending 02/17/2017 Visit Plan: Hypertension - well controlled - continue with current medications, continue with no added salt diet. Pt has been encouraged to exercise daily. The pt has been advised to call the office if there are any acute concerns about change in blood pressure readings at home. Weakness - continue with therapy. Brace abnormality - breakage - rx for new brace/fixing of the break. 01/18/2017 Appointment: Quyen Long WPtel: [address] [place] [address] (15 min) Moderate 01/18/2017 Patient Education: Patient Medication Summary Completed 01/18/2017 Patient Education: Obesity Completed 01/18/2017 Patient Education: Hypertension Completed 01/18/2017 Visit Plan: Hypertension - well controlled - continue with current medications, continue with no added salt diet. Pt has been encouraged to exercise daily. The pt has been advised to call the office if there are any acute concerns about change in blood pressure readings at home. 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 10/19/2016 Appointment: Quyen Long WPtel: [address] [place], [place] [id number] (15 min) Moderate 10/19/2016 Patient Education: Patient Medication Summary Completed 10/19/2016 Patient Education: Obesity Completed 10/19/2016 Visit Plan: Left shoulder pain-hospital f/u recent shoulder surgery with Dr Wilson-doing well-sees Dr Wilson this afternoon for suture removal-pain improved Vftx-mtrv-kihgvpd fungal infection-will treat with ket oconazole -follow up in 2 weeks 08/17/2016 Appointment: Glory Dalton WPtel: [phone] [place] (30 min) Complex 08/17/2016 Patient Education: Patient Medication Summary Completed 08/17/2016 Patient Education: Obesity Completed 08/17/2016 Visit Plan: Hypertension - well controlled - continue with current medications, continue with no added salt diet. Pt has been encouraged to exercise daily. The pt has been advised to call the office if there are any acute concerns about change in blood pressure readings at home. Shoulder pain - phone call to inpatient rehab - they will look at the patient for placement in rehab after his shoulder surgery for him to rehabilitate. 07/20/2016 Visit Plan: Hypertension - well controlled - continue with current medications, continue with no added salt diet. Pt has been encouraged to exercise daily. The pt has been advised to call the office if there are any acute concerns about change in blood pressure readings at home. Shoulder pain - phone call to inpatient rehab - they will look at the patient for placement in rehab after his shoulder surgery for him to rehabilitate. pt has an unstable gait, uses a walker when ambulating short distances, he continues to have need of the walker due to his lower extremity weakness and unstable gait. i have written rx for walker for patient for use when ambulating. 07/20/2016 Appointment: [facility] [phone] [facility] (15 min) Moderate 07/20/2016 Patient Education: Patient Medication Summary Completed 07/20/2016 Visit Plan: Hypertension - well controlled - continue with current medications, continue with no added salt diet. Pt has been encouraged to exercise daily. The pt has been advised to call the office if there are any acute concerns about change in blood pressure readings at home. 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 04/19/2016 Appointment: [facility] [phone] [facility] (15 min) Moderate 04/19/2016 Patient Education: Patient Medication Summary Completed 04/19/2016 Patient Education: Obesity Completed 04/19/2016 Patient Education: Hypertension Completed 04/19/2016 Care Plan: BMI Above normal followup SELF-MGMT EDUC & TRAIN 1 PT Pending 01/20/2016 Visit Plan: Hypertension - well controlled - continue with current medications, continue with no added salt diet. Pt has been encouraged to exercise daily. The pt has been advised to call the office if there are any acute concerns about change in blood pressure readings at home. Shoulder pain - pt states that he saw Dr. Mccauley and he had given him some voltaren gel, which helped, but is expensive - will send RX for Pennsaid to replace the voltaren gel if it is more reasonably priced. Obesity - chronic issue with this patient. The pt has been counseled about diet changes, calorie restriction, and need to exercise. Pt will RTC in one month for weight check. Will order routine labs to be done in February - pt is to notify clinic with any questions or concerns prior to next follow up appointment. 01/19/2016 Appointment: Qyuen Long [facility]el[facility] [phone] [facility] (15 min) Moderate 01/19/2016 Patient Education: Patient Medication Summary Completed 01/19/2016 Patient Education: Obesity Completed 01/19/2016 Patient Education: Hypertension Completed 01/19/2016 Referral: Dr Mccualey Referral Completed 11/11/2015 Care Plan: Referral Order SNOMED-CT : [id number] Pending 11/03/2015 Visit Plan: Hypertension - well controlled - continue with current medications, continue with no added salt diet. Pt has been encouraged to exercise daily. The pt has been advised to call the office if there are any acute concerns about change in blood pressure readings at home. referral to dr. mccauley for shoulder injections/eval - pt has history of post-polio syndrome, may need fluoroscopic guidance with injection 10/16/2015 Appointment: Quyen Long [facility]Ptel[facility] [phone] [facility] (15 min) Moderate 10/16/2015 Patient Education: Patient Medication Summary Completed 10/16/2015 Patient Education: Obesity Completed 10/16/2015 Patient Education: Hypertension Completed 10/16/2015 Visit Plan: Hypertension - well controlled - continue with current medications, continue with no added salt diet. Pt has been encouraged to exercise daily. The pt has been advised to call the office if there are any acute concerns about change in blood pressure readings at home. Post-polio syndrome - recommended pt to increase activity at the wellness center. 07/17/2015 Patient Education: Patient Medication Summary Completed 07/17/2015 Patient Education: Hypertension Completed 07/17/2015 Visit Plan: pt down one pound 07/03/2015 Appointment: Nurse Visit 07/03/2015 Patient Education: Patient Medication Summary Completed 07/03/2015 Visit Plan: Hypertension - well controlled - continue with current medications, continue with no added salt diet. Pt has been encouraged to exercise daily. The pt has been advised to call the office if there are any acute concerns about change in blood pressure readings at home. Esophageal Reflux - the patient has been counseled against excessive intake of caffeine, spicy foods, peppermint, and cinnamon - all of which can exacerbate esophageal reflux. The patient is to take medications as prescribed and call the office if the symptoms are not improving. Recommended pt to start on pantoprazole 40mg daily. Abnormal glucose - check hgba1c today. 04/16/2015 Patient Education: Patient Medication Summary Completed 04/16/2015 Patient Education: Hypertension Completed 04/16/2015 Visit Plan: Hypertension - uncontrolled - the patient's medications have been modified as documented in the visit note. The patient has been counseled to cut back on salt in diet for a no added salt diet, low fat diet, start an exercise program with low weight bearing exercises and higher aerobic activity for heart health. The patient is to check blood pressure readings as an outpatient and either fax, call, or email the readings to the office next week for practitioner to review. The pt is to call for acute concerns. Post-polio syndrome - recommended patient to start with therapy at the wellness center - 02/19/2015 Appointment: [facility] [phone] [facility] (15 min) Moderate 02/19/2015 Patient Education: Patient Medication Summary Completed 02/19/2015 Patient Education: Hypertension Completed 02/19/2015 Visit Plan: Shingles - postherpetic neuralgia - improving symptoms - recommended pt to call if not having continued resolution of symptoms. Hypertension - well controlled - continue with current medications, continue with no added salt diet. Pt has been encouraged to exercise daily. The pt has been advised to call the office if there are any acute concerns about change in blood pressure readings at home. Earache - due to shingles - monitor symptoms, call if not resolving, can consider Auralgan ear drops. 11/20/2014 Appointment: Quyen Long [facility]Ptel[facility] [phone] [facility] Follow up 11/20/2014 Patient Education: Patient Medication Summary Completed 11/20/2014 Patient Education: Hypertension Completed 11/20/2014 Visit Plan: Shingles - Herpes Zoster - acute in onset - pt started on acyclovir and instructed to call if symptoms worsen or if the pt is concerned about the symptoms. Pt has been advised to avoid contact with persons who may be , or infants, or immunocompromised individuals. Pt has been instructed that shingles will continue to break out and eventually scab over a two week period, until all of the vesicles are scabbed, the pt is to be considered contagious. Pt to see his eye doctor [facility]. 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 He has some strength in his upper extremities, but he has easy fatigue with use of his body in general. He is a di fficult pt to test in a static environment due to the fact that it takes time and repetitive movement to fatigue his muscles, and it has a longer period of recovery for him to be able to use his muscles again effectively. Edi is a large man and his body habitus is unfortunately a result of his diet, which we have tried to modify, and his inability to participate in any form of exercise due to his inability to tolerate the repetitive activity. If he does not have a power scooter he will, unfortunately have a decrease in his quality of life as he will not be able to participate in activities outside of the [facility]. He has a family that would like to include him in activities outside of the assisted living facility, but Edi is not able to participate due to his inability to easily mobilize himself or his fatigue with activity. He has the cognitive ability to drive a scooter, and has room in his assisted living room and at the facility to be able to move around on the scooter. He would be able t o use the scooter, turn the seat, lock his leg and then safely stand from the scooter height without as much worry about falling. He cannot safely move more than 10 feet, if he successfully stands without falling. He would be able to use the scooter to get around in his room if he is having a polio flair, or persistent weakness to be able to get to his restroom, to the dining room, and be able to move more safely in his home environment. his lower extremity strength is 1/5 on the right, 2/5 on the left on hip/thigh, and lower leg and foot. 09/19/2014 Appointment: Quyen Long [facility]Ptel[facility] [phone] [facility] Follow up 09/19/2014 Patient Education: Patient Medication Summary Completed 09/19/2014 Visit Plan: Hypertension - well controlled - continue with current medications, continue with no added salt diet. Pt has been encouraged to exercise daily. The pt has been advised to call the office if there are any acute concerns about change in blood pressure readings at home. Carotid Bruit - check dopplers. Post Polio syndrome - pt to continue with activity - recommended pt to spend less time in his room, get more exercise to keep muscles stronger and decrease risk of falling. Seborrheic dermatitis - start cerave cream to skin. Vitamin D deficiency - recommended repeat of vitamin d [id number] weekly x 12 weeks and increase vitamin d to 5000 units daily. 07/24/2014 Appointment: Quyen Long WPtel: [phone] [facility] [place] Follow up 07/24/2014 Patient Education: Patient Medication Summary Completed 07/24/2014 Patient Education: Hypertension Completed 07/24/2014 Visit Plan: Neck pain-history of surgery-xray cervical spine- biofreeze to cervical muscles-heat PRN Post polio syndrome-right leg weakness- current brace is not functional for the patient-it is cutting into his posterior leg causing pain, it is heavy and makes it difficult to ambulate while wearing it and his ankle is not well supported with the brace on the outside of his shoe. Recommend patient be fitted for a new brace. Nocturia-check post void residual as well as hgb A1C due to elevated blood sugar Vitamin D deficiency- check vitamin D Vitamin B12 deficiency-check B12 level 05/23/2014 Appointment: Glory Dalton WPtel: [address] [place], [place] [id number] Follow up 05/23/2014 Patient Education: Patient Medication Summary Completed 05/23/2014 Patient Education: .Cervicalgia Neck Pain Completed 05/23/2014 Appointment: Quyen Long WPtel: [address] [place], [place] [id number] [place] Follow up 05/22/2014 Visit Plan: Edema - pt has been advised to elevate legs to prevent dependent edema, compression has been recommended to help to naturally decrease peripheral edema. Diuretic use has been discussed and pt has been instructed in appropriate use of such medication as necessary to further attempt to reduce peripheral edema. Headache - recommended pt to use tylenol for headache, check blood pressure at home and will have staff at assisted living facility call with pressures. Hypertension - well controlled - continue with current medications, continue with no added salt diet. Pt has been encouraged to exercise daily. The pt has been advised to call the office if there are any acute concerns about change in blood pressure readings at home. 04/18/2014 Appointment: Quyen Long WPtel: [address] [place], [place] [id number] Follow up 04/18/2014 Patient Education: Patient Medication Summary Completed 04/18/2014 Patient Education: Hypertension Completed 04/18/2014 Appointment: Quyen Long WPtel: [address] [place], [place] [id number] [place] Follow up 02/27/2014 Visit Plan: Insomnia - Pt has been advised to increase the light in the house during the day, and start dimming the lights during the evening hours. Pt has been advised to cut out caffeine after 5pm. Daytime napping worsens night time insomnia. START TRAZODONE AND MONITOR SYMPTOMS. Vitamin D twspflkdyk-pkqljybr-tuqjkwbk vitamin D 50,000 units weekly for 12 additional weeks. Hypoxemia-continue night time oxygen 02/21/2014 Appointment: [facility] [phone] [phone] Follow up 02/21/2014 Patient Education: Patient Medication Summary Completed 02/21/2014 Visit Plan: Tinea pedis-discussed natural expected course of this diagnosis and to alert me if symptoms do not follow expected course, or if any worse. RX sent to patient's pharmacy. Instructed him to remove braces/shoes at least once during the afternoon and allow feet to dry-use otc athlete's foot powder each time before putting on sock/shoes as well. Patient and his sister verbalize understanding of plan. ADDENDUM: Post polio leg muscle weakness with gait abnormality Patient requires to use of a wheeled walker with seat-recent falls-abnormal and unsteady gait-with atrophy and weakness of bilateral lower le gs-RX for wheeled walker with a seat provided. 12/25/2013 Visit Plan: Tinea pedis-discussed natural expected course of this diagnosis and to alert me if symptoms do not follow expected course, or if any worse. RX sent to patient's pharmacy. Instructed him to remove braces/shoes at least once during the afternoon and allow feet to dry-use otc athlete's foot powder each time before putting on sock/shoes as well. Patient and his sister verbalize understanding of plan. 12/25/2013 Appointment: hasnt received medicaid card yet Other 12/25/2013 Patient Education: Patient Medication Summary Completed 12/25/2013 Visit Plan: Insomnia - Pt has been advised to increase the light in the house during the day, and start dimming the lights during the evening hours. Pt has been advised to cut out caffiene after 5pm. Daytime napping worsens night time insomnia. Vitamin B12 deficiency - pt to start on injections for his b12, monthly injections. Vitamin D deficiency - pt to continue on 50,000 units weekly x 12 weeks. Back pain - improved on mobic. 11/28/2013 Appointment: Quyen Long WPtel: [phone] [facility] Follow up 11/28/2013 Patient Education: Patient Medication Summary Completed 11/28/2013 Visit Plan: Post-polio syndrome - with muscle weakness/wasting - I have recommended that the patient start physical therapy - he actually fell today in the hallway of the office on the way to the restroom. He states that he took off without his cane, and became unsteady and could not regain his balance. I have instructed the pt that he must use his cane and he will need therapy to gain strength. Chronic insomnia - pt has been recommended to start on melatonin to aide sleep. Irregular heart beat - recommended pt to have holter monitor Post polio syndrome with gait abnormality and weakness - reocmmended physical therapy and occ therapy eval and treat. Tobaccoism - chest xray overnight oxygen study. 11/14/2013 Appointment: Quyen Long WPtel[facility] [phone] [facility] New Patient 11/14/2013 Patient Education: Patient Medication Summary Completed 11/14/2013 Referral: Dr Mccauley Referral Appointment Requested Instructions Comment . Rash-left ewej-vikjpqmy-ftgtaljjpt patient to continue using ketoconazole plus betamethasone equal parts and increase to TID-leave foot open to air as much as possible-follow up in 2 weeks, sooner if needed. . Hypertension - well controlled - continue with current medications, continue with no added salt diet. Pt has been encouraged to exercise daily. The pt has been advised to call the office if there are any acute concerns about change in blood pressure readings at home. Edema - continue with lasix, compression. Rash - continue with antibiotics and dressings to lower leg. culture rash ketoconazole to rash on foot twice daily cover with 4x4 and gauze wrap to absorb moisture-change prn moisture . Rash-left foot-will culture to r/o bacteria-suspect fungus-will treat with anti fungal-keep foot clean/dry-changes dressings as directed-follow up in 2 weeks if symptoms not resolved-patient and sister verbalized understanding of plan. . Hypertension - well controlled - continue with current medications, continue with no added salt diet. Pt has been encouraged to exercise daily. The pt has been advised to call the office if there are any acute concerns about change in blood pressure readings at home. Post-polio syndrome - monitor symptoms - supportive care. Tinea pedis - supportive care - continue with ketaconazole and referral to Dr. Thomas. Edema - compression recommended. . Post-polio syndrome - with muscle weakness/wasting - I have recommended that the patient start physical therapy - he actually fell today in the hallway of the office on the way to the restroom. He states that he took off without his cane, and became unsteady and could not regain his balance. I have instructed the pt that he must use his cane and he will need therapy to gain strength. Chronic insomnia - pt has been recommended to start on melatonin to aide sleep. Irregular heart beat - recommended pt to have holter monitor Post polio syndrome with gait abnormality and weakness - reocmmended physical therapy and occ therapy eval and treat. Tobaccoism - chest xray overnight oxygen study. . Hypertension - well controlled - continue with current medications, continue with no added salt diet. Pt has been encouraged to exercise daily. The pt has been advised to call the office if there are any acute concerns about change in blood pressure readings at home. 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 . pt down one pound . Cellulitis - left foot - The patient was instructed in appropriate wound care. The patient was instructed to use the antibiotic ointment as per RX. The patient is to call for any change in symptoms, increase in size of the lesion, increase in pain, worsening redness, warmth, discharge. . Cellulitis - left foot - The patient was instructed in appropriate wound care. The patient was instructed to use the antibiotic ointment as per RX. The patient is to call for any change in symptoms, increase in size of the lesion, increase in pain, worsening redness, warmth, discharge. KETOCONAZOLE mixed with BETAMETHASONE THREE TIMES DAILY -MIX EQUAL PARTS . Rash-left foot-Dr Long in to evaluate rash-instructed patient to start using ketoconazole plus betamethasone equal parts TID -follow up in 2 weeks, sooner if needed. . Hypertension - uncontrolled - the patient's medications have been modified as documented in the visit note. The patient has been counseled to cut back on salt in diet for a no added salt diet, low fat diet, start an exercise program with low weight bearing exercises and higher aerobic activity for heart health. The patient is to check blood pressure readings as an outpatient and either fax, call, or email the readings to the office next week for practitioner to review. The pt is to call for acute concerns. Post-polio syndrome - recommended patient to start with therapy at the wellness center - . Hypertension - well controlled - continue with current medications, continue with no added salt diet. Pt has been encouraged to exercise daily. The pt has been advised to call the office if there are any acute concerns about change in blood pressure readings at home. Shoulder pain - pt states that he saw Dr. Mccauley and he had given him some voltaren gel, which helped, but is expensive - will send RX for Pennsaid to replace the voltaren gel if it is more reasonably priced. Obesity - chronic issue with this patient. The pt has been counseled about diet changes, calorie restriction, and need to exercise. Pt will RTC in one month for weight check. Will order routine labs to be done in February - pt is to notify clinic with any questions or concerns prior to next follow up appointment. . Tinea pedis-discussed natural expected course of this diagnosis and to alert me if symptoms do not follow expected course, or if any worse. RX sent to patient's pharmacy. Instructed him to remove braces/shoes at least once during the afternoon and allow feet to dry-use otc athlete's foot powder each time before putting on sock/shoes as well. Patient and his sister verbalize understanding of plan. ADDENDUM: Post polio leg muscle weakness with gait abnormality Patient requires to use of a wheeled walker with seat-recent falls-abnormal and unsteady gait-with atrophy and weakness of bilateral lower legs-RX for wheeled walker with a seat provided. . Tinea pedis-discussed natural expected course of this diagnosis and to alert me if symptoms do not follow expected course, or if any worse. RX sent to patient's pharmacy. Instructed him to remove braces/shoes at least once during the afternoon and allow feet to dry-use otc athlete's foot powder each time before putting on sock/shoes as well. Patient and his sister verbalize understanding of plan. . Post polio syndrome - back-up brace for right leg - rx for edi to [facility]. Hypertension - well controlled - continue with current medications, continue with no added salt diet. Pt has been encouraged to exercise daily. The pt has been advised to call the office if there are any acute concerns about change in blood pressure readings at home. Weakness - continue with therapy. Obesity - chronic issue with this patient. The pt has been counseled about diet changes, calorie restriction, and need to exercise. Pt will RTC in one month for weight check. . Post polio syndrome - back-up brace for right leg - rx for edi to [facility]. 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 He ambulates in the halls and in his room at the assisted living facility and it has become increasingly more difficult for Edi to ambulate due to his knee instability. He needs new drop lock rings on his braces as this allowed him to bend his knees while seated and lock his knees straight when ambulating. I have written a script for him for the new braces as the old braces have caused him to fall due to his knee instability as they do not have the locking mechanisms in place that he needs. Hypertension - well controlled - continue with current medications, continue with no added salt diet. Pt has been encouraged to exercise daily. The pt has been advised to call the office if there are any acute concerns about change in blood pressure readings at home. Weakness - continue with therapy. Obesity - chronic issue with this patient. The pt has been counseled about diet changes, calorie restriction, and need to exercise. Pt will RTC in one month for weight check. . Hypertension - well controlled - continue with current medications, continue with no added salt diet. Pt has been encouraged to exercise daily. The pt has been advised to call the office if there are any acute concerns about change in blood pressure readings at home. Shoulder pain and Generalized weakness due to Polio - I have recommended that pt should restart physical therapy. I have recommended that the pt call Dr. Wilson's office to get an appt with addie for shoulder injection. . Hypertension - well controlled - continue with current medications, continue with no added salt diet. Pt has been encouraged to exercise daily. The pt has been advised to call the office if there are any acute concerns about change in blood pressure readings at home. Shoulder pain and Generalized weakness due to Polio - I have recommended that pt should restart physical therapy. I have recommended that the pt call Dr. Wilson's office to get an appt with addie for shoulder injection. Vitamin b12 Vitamin D Hgb A1C cervical spine postvoid residual . Neck pain-history of surgery-xray cervical spine-biofreeze to cervical muscles- heat PRN Post polio syndrome-right leg weakness-current brace is not functional for the patient-it is cutting into his posterior leg causing pain, it is heavy and makes it difficult to ambulate while wearing it and his ankle is not well supported with the brace on the outside of his shoe. Recommend patient be fitted for a new brace. Nocturia-check post void residual as well as hgb A1C due to elevated blood sugar Vitamin D deficiency-check vitamin D Vitamin B12 deficiency-check B12 level Your left foot needs air in the evenings for at least a couple of hours -continue dressing changes BID with bactroban ointment Betamethasone to arm/chest twice daily for itching until resolved Continue ketoconazole to face as directed Follow up in 10 days . Cellulitis-left foot-MSSA khfouwyy-hubcyqiiw-qjgau air in the evening-continue bactroban ointment twice daily-stop using alcohol on foot-no papertowels or abrasives to foot Btfi-cord-mh for betamethasone provided and instructed on use . Hypertension - well controlled - continue with current medications, continue with no added salt diet. Pt has been encouraged to exercise daily. The pt has been advised to call the office if there are any acute concerns about change in blood pressure readings at home. Esophageal Reflux - the patient has been counseled against excessive intake of caffeine, spicy foods, peppermint, and cinnamon - all of which can exacerbate esophageal reflux. The patient is to take medications as prescribed and call the office if the symptoms are not improving. Recommended pt to start on pantoprazole 40mg daily. Abnormal glucose - check hgba1c today. CONTINUE VITAMIN D FOR 12 WEEKS . Insomnia - Pt has been advised to increase the light in the house during the day, and start dimming the lights during the evening hours. Pt has been advised to cut out caffeine after 5pm. Daytime napping worsens night time insomnia. START TRAZODONE AND MONITOR SYMPTOMS. Vitamin D oqpycqoekg-webburzq-olshyagm vitamin D 50,000 units weekly for 12 additional weeks. Hypoxemia-continue night time oxygen . Hypertension - well controlled - continue with current medications, continue with no added salt diet. Pt has been encouraged to exercise daily. The pt has been advised to call the office if there are any acute concerns about change in blood pressure readings at home. 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 Shoulder pain - recommended that his sister needs to call Dr. Wilson about possibly getting another injection into his shoulder. . Sinusitis - Pt has acute infection - pain in face, maxillary region, Pt informed to use decongestant, RX given to patient, sinus rinses also recommended. Call if symptoms do not show improvement. Allergies - chronic - recommended pt to use allergy medication as prescribed. Pt has been counseled as to the appropriate use of the medication. Pt to call if allergy symptoms are not controlled with the medication. If using nasal spray, instructions as follows: Nasal spray- use twice daily, one spray per nostril twice daily, after 30 minutes, rinse out nose with saline spray.. Use opposite hand per nostril to spray in the nasal steroid allergy spray. . Hypertension - well controlled - continue with current medications, continue with no added salt diet. Pt has been encouraged to exercise daily. The pt has been advised to call the office if there are any acute concerns about change in blood pressure readings at home. Carotid Bruit - check dopplers. Post Polio syndrome - pt to continue with activity - recommended pt to spend less time in his room, get more exercise to keep muscles stronger and decrease risk of falling. Seborrheic dermatitis - start cerave cream to skin. Vitamin D deficiency - recommended repeat of vitamin d [id number] weekly x 12 weeks and increase vitamin d to 5000 units daily. KENALOG INJECTION TODAY PREDNISONE -START TOMORROW BETAMETHASONE CREAM CULTURE LEFT FOOT -START ABX IF BACTERIAL GROWTH . Rash-culture today in the office -kenalog injection for acute symptoms -start prednisone tomorrow- treat with abx if indicated on culture- follow up in 1 week, sooner if needed prevnar 13 if hasn't had one . Medicare Exam - today we discussed the patients past history, immunizations, preventative exams/evaluations - colonoscopy, fecal occult blood testing, routine labs for renal function, glucose, cholesterol, osteoporosis evaluations, cardiovascular testing and cancer screenings. We have also discussed mental health and the signs/symptoms of depression. The patient was advised of home safety evaluat ions and the need to make sure that as the aging process continues, we need to be aware of different ways to make the home a safer place to reside. The patient has also been counseled that exercise is necessary - and of utmost importance as we age to help decrease fall risk and to maintain independence in the home. Today we discussed the need for the patient to create paperwork for Advanced directives as well as for the patient to provide this office with a copy of her DOP[employer] paperwork for health care surrogate. . Tinea barbae -rx for ketoconazole written and instructed patient on use -instructed patient to call or return to clinic if symptoms do not resolve or if any worse. Patient verbalized understanding of plan. . Hypertension - well controlled - continue with current medications, continue with no added salt diet. Pt has been encouraged to exercise daily. The pt has been advised to call the office if there are any acute concerns about change in blood pressure readings at home. Post-polio syndrome - recommended pt to increase activity at the wellness center. . Hypertension - well controlled - continue with current medications, continue with no added salt diet. Pt has been encouraged to exercise daily. The pt has been advised to call the office if there are any acute concerns about change in blood pressure readings at home. referral to dr. mccauley for shoulder injections/eval - pt has history of post- polio syndrome, may need fluoroscopic guidance with injection . Hypertension - well controlled - continue with current medications, continue with no added salt diet. Pt has been encouraged to exercise daily. The pt has been advised to call the office if there are any acute concerns about change in blood pressure readings at home. Weakness - continue with therapy. Brace abnormality - breakage - rx for new brace/fixing of the break. . Left shoulder pain-hospital f/u recent shoulder surgery with Dr Wilson-doing well-sees Dr Wilson this afternoon for suture removal-pain improved Jftd-mgbo-dotemsx fungal infection-will treat with ketoconazole -follow up in 2 weeks . Rash-resolved -continue topical betamethasone cream as ordered- call if rash returns . Edema - pt has been advised to elevate legs to prevent dependent edema, compression has been recommended to help to naturally decrease peripheral edema. Diuretic use has been discussed and pt has been instructed in appropriate use of such medication as necessary to further attempt to reduce peripheral edema. Headache - recommended pt to use tylenol for headache, check blood pressure at home and will have staff at assisted living facility call with pressures. Hypertension - well controlled - continue with current medications, continue with no added salt diet. Pt has been encouraged to exercise daily. The pt has been advised to call the office if there are any acute concerns about change in blood pressure readings at home. . Mr. Munoz has post-polio syndrome with progressive weakness of his lower extremities. He has some strength in his upper extremities, but he has easy fatigue with use of his body in general. He is a difficult pt to test in a static environment due to the fact that it takes time and repetitive movement to fatigue his muscles, and it has a longer period of recovery for him to be able to use his muscles again effectively. Edi is a large man and his body habitus is unfortunately a result of his diet, which we have tried to modify, and his inability to participate in any form of exercise due to his inability to tolerate the repetitive activity. If he does not have a power scooter he will, unfortunately have a decrease in his quality of life as he will not be able to participate in activities outside of the [facility]. He has a family that would like to include him in activities outside of the assisted living facility, but Edi is not able to participate due to his inability to easily mobilize himself or his fatigue with activity. He has the cognitive ability to drive a scooter, and has room in his assisted living room and at the facility to be able to move around on the scooter. He would be able to use the scooter, turn the seat, lock his leg and then safely stand from the scooter height without as much worry about falling. He cannot safely move more than 10 feet, if he successfully stands without falling. He would be able to use the scooter to get around in his room if he is having a polio flair, or persistent weakness to be able to get to his restroom, to the dining room, and be able to move more safely in his home environment. his lower extremity strength is 1/5 on the right, 2/5 on the left on hip/thigh, and lower leg and foot. . Insomnia - Pt has been advised to increase the light in the house during the day, and start dimming the lights during the evening hours. Pt has been advised to cut out caffiene after 5pm. Daytime napping worsens night time insomnia. Vitamin B12 deficiency - pt to start on injections for his b12, monthly injections. Vitamin D deficiency - pt to continue on 50,000 units weekly x 12 weeks. Back pain - improved on mobic. . Hypertension - well controlled - continue with current medications, continue with no added salt diet. Pt has been encouraged to exercise daily. The pt has been advised to call the office if there are any acute concerns about change in blood pressure readings at home. 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 . Bronchitis - acute case of bronchitis identified. Pt has been given antibiotics, breathing treatments as appropriate, and pt has been instructed to call if symptoms are not improved, or if symptoms acutely worsen. . Bronchitis - acute case of bronchitis identified. Pt has been given antibiotics, breathing treatments as appropriate, and pt has been instructed to call if symptoms are not improved, or if symptoms acutely worsen. . Shingles - postherpetic neuralgia - improving symptoms - recommended pt to call if not having continued resolution of symptoms. Hypertension - well controlled - continue with current medications, continue with no added salt diet. Pt has been encouraged to exercise daily. The pt has been advised to call the office if there are any acute concerns about change in blood pressure readings at home. Earache - due to shingles - monitor symptoms, call if not resolving, can consider Auralgan ear drops. . Shingles - Herpes Zoster - acute in onset - pt started on acyclovir and instructed to call if symptoms worsen or if the pt is concerned about the symptoms. Pt has been advised to avoid contact with persons who may be , or infants, or immunocompromised individuals. Pt has been instructed that shingles will continue to break out and eventually scab over a two week period, until all of the vesicles are scabbed, the pt is to be considered contagious. Pt to see his eye doctor [facility]. . Hypertension - well controlled - continue with current medications, continue with no added salt diet. Pt has been encouraged to exercise daily. The pt has been advised to call the office if there are any acute concerns about change in blood pressure readings at home. Weakness - continue with therapy, will fill out paperwork for insurance to cover his leg brace. Family history of aneurysm - will consult cardiology to see about ordering screenings. Obesity - chronic issue with this patient. The pt has been counseled about diet changes, calorie restriction, and need to exercise. Pt will RTC in one month for weight check. . Hypertension - well controlled - continue with current medications, continue with no added salt diet. Pt has been encouraged to exercise daily. The pt has been advised to call the office if there are any acute concerns about change in blood pressure readings at home. Right shoulder AC Joint pain - discussed with pt - if it does not improve - he will need to see Dr. Wilson for an injection. Muscle weakness - generalized due to Post-Polio syndrome. . Hypertension - well controlled - continue with current medications, continue with no added salt diet. Pt has been encouraged to exercise daily. The pt has been advised to call the office if there are any acute concerns about change in blood pressure readings at home. Shoulder pain - phone call to inpatient rehab - they will look at the patient for placement in rehab after his shoulder surgery for him to rehabilitate. . Hypertension - well controlled - continue with current medications, continue with no added salt diet. Pt has been encouraged to exercise daily. The pt has been advised to call the office if there are any acute concerns about change in blood pressure readings at home. Shoulder pain - phone call to inpatient rehab - they will look at the patient for placement in rehab after his shoulder surgery for him to rehabilitate. pt has an unstable gait, uses a walker when ambulating short distances, he continues to have need of the walker due to his lower extremity weakness and unstable gait. i have written rx for walker for patient for use when ambulating. d/c treatments to left foot . Cellulitis of left foot-no longer draining-no open areas-no excoriation-slightly red-okay to d/c all treatments-keep clean and monitor-call if redness does not resolve Rash-resolved . Post polio syndrome -right leg weakness -patient needs repair and adjustment of his right leg brace that helps with his symptoms of instability and weakness and allows him to ambulate -[facility]
--- OUTSIDE RECORDS SUMMARY | 2018-11-10 14:29 | XMS REPORT | CCD ---
Author Author Quyen Long Organization Quyen Long MD, [facility] Address [address] [place] [address] Phone Care Team Providers Care Skin Therapist Name Role Phone PP Unavailable CCM Unavailable Summary Purpose Interface Exchange Insurance Providers Payer name Policy type / Coverage type Covered green party ID Effective Begin Date Effective End Date WPS Medicare Part B Medicare Part B [id number] 2017 Unknown [facility] Medicare Part B [id number] 2017 Unknown Family history Grandmother Diagnosis Age [...] Description Effective Dates Tobacco history SNOMED CT: 5017329 Former smoker 1.5 pack daily x 45 years 12/27/2017 Marital status Unknown 10/19/2016 Living arrangements Unknown Assisted Living [facility] 04/19/2016 Number of children Unknown 1 son - lives in [place] 11/14/2013 Employment Unknown 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 11/14/[address]: 397103146 Never drinks alcohol 11/14/2013 Has the patient [...] Codes Condition Status Onset Date Resolved Date Rash and other nonspecific skin eruption ICD-9: [...] Problems Condition Codes Effective Dates Condition Status Rash and other nonspecific skin eruption ICD-9: [...] Start Date Stop Date Status Fill Instructions hydrochlorothiazide 25 mg tablet RxNorm: 671195 TAKE ONE TABLET BY MOUTH DAILY 11/02/2018 07/29/2019 Active losartan 50 mg tablet RxNorm: 630600 TAKE ONE TABLET BY MOUTH DAILY (STARTING 09-09-2017) 11/01/2018 04/29/2019 Active ranitidine 150 mg tablet RxNorm: 527574 TAKE ONE TABLET BY MOUTH , START August 10/06/2018 02/02/2019 Active gabapentin 300 mg capsule RxNorm: 471487 TAKE ONE CAPSULE BY MOUTH TWICE A DAY 09/18/2018 03/16/2019 Active Kenalog 40 mg/mL suspension for injection RxNorm: 5769865 Milliliter(s) Inj 08/28/2018 08/28/2018 Inactive ketoconazole 2 % topical cream RxNorm: 477177 1 Application TOP BID to left ear and left arm, right arm, left - a total of 1 gram bid 08/21/2018 12/18/2018 Active ranitidine 150 mg tablet RxNorm: 635939 1 Tablet(s) PO daily 08/21/2018 10/05/2018 Inactive ketoconazole 2 % shampoo RxNorm: 131094 APPLY TO AFFECTED AREA(S) TWICE WEEKLY UNTIL RESOLVED 08/14/2018 09/10/2018 Inactive cetirizine 10 mg tablet RxNorm: 4653612 TAKE ONE TABLET BY MOUTH EVERY NIGHT AT BEDTIME 08/07/2018 03/04/2019 Active trazodone 50 mg tablet RxNorm: 681209 TAKE ONE TABLET BY MOUTH AT BEDTIME 07/18/2018 11/14/2018 Active ketoconazole 2 % shampoo RxNorm: 846668 1 TOP BIW 06/27/2018 08/13/2018 Inactive Vitamin B-12 1,000 mcg/mL injection solution RxNorm: 391546 INJECT 1ML MONTHLY 06/19/2018 11/15/2018 Active Request already responded to by other means (e.g. phone or fax) Vitamin B-12 1,000 mcg/mL injection solution RxNorm: 640005 Milliliter(s) INJECT 1ML MONTHLY 06/15/2018 06/18/2018 Inactive Zithromax Z-Brian 250 mg tablet RxNorm: 211774 1 Tablet(s) PO UD 06/14/2018 08/20/2018 Inactive zpack as directed x1 tamsulosin 0.4 mg capsule RxNorm: 327543 TAKE ONE CAPSULE BY MOUTH EVERY EVENING 06/12/2018 01/07/2019 Active gabapentin 300 mg capsule RxNorm: 702767 TAKE ONE CAPSULE BY MOUTH TWICE A DAY 05/31/2018 09/17/2018 Inactive losartan 50 mg tablet RxNorm: 919674 TAKE ONE TABLET BY MOUTH DAILY 05/01/2018 09/27/2018 Inactive Toprol XL 50 mg tablet,extended release RxNorm: 605580 1 Tablet(s) PO daily 04/20/2018 No Stop Date Active Vitamin D3 5,000 unit tablet RxNorm: 058963 TAKE ONE TABLET BY MOUTH DAILY 04/05/2018 02/28/2019 Active trazodone 50 mg tablet RxNorm: 219522 TAKE ONE TABLET BY MOUTH AT BEDTIME 02/27/2018 07/17/2018 Inactive ranitidine 150 mg tablet RxNorm: 175072 1 Tablet(s) PO BID 02/13/2018 08/20/2018 Inactive hydrochlorothiazide 25 mg tablet RxNorm: 473484 TAKE ONE TABLET BY MOUTH DAILY 02/13/2018 11/01/2018 Inactive albuterol sulfate 2.5 mg/3 mL (0.083 %) solution for nebulization RxNorm: 094582 3 Milliliter(s) INH UD 02/08/2018 No Stop Date Active please deliver all of his prescriptions thank you cefdinir 300 mg capsule RxNorm: 618912 1 Capsule(s) PO BID 02/08/2018 02/17/2018 Inactive prednisone 20 mg tablet RxNorm: 906130 2 Tablet(s) PO daily 02/08/2018 02/12/2018 Inactive fluticasone 50 mcg/actuation nasal spray,suspension RxNorm: 1143979 1 [place] NASAL BID 02/07/2018 06/06/2018 Inactive fluticasone 50 mcg/actuation nasal spray,suspension RxNorm: 1559680 1 [place] NASAL BID 02/07/2018 02/06/2018 Inactive Zithromax Z-Brian 250 mg tablet RxNorm: 079289 1 Tablet(s) PO UD 02/07/2018 03/14/2018 Inactive robin as directed tamsulosin 0.4 mg capsule RxNorm: 699894 TAKE ONE CAPSULE BY MOUTH EVERY EVENING 01/13/2018 06/11/2018 Inactive Vitamin D3 5,000 unit tablet RxNorm: 921065 TAKE ONE TABLET BY MOUTH DAILY 01/02/2018 04/04/2018 Inactive cetirizine 10 mg tablet RxNorm: 8161451 TAKE ONE TABLET BY MOUTH EVERY NIGHT AT BEDTIME 01/02/2018 04/01/2018 Inactive cetirizine 10 mg tablet RxNorm: 9597321 1 Tablet(s) PO QHS 12/26/2017 01/01/2018 Inactive cetirizine 10 mg tablet RxNorm: 4727966 1 Tablet(s) PO QHS 12/26/2017 12/25/2017 Inactive losartan 50 mg tablet RxNorm: 262577 TAKE ONE TABLET BY MOUTH DAILY (STARTING 09-09-2017) 09/29/2017 03/27/2018 Inactive Request already responded to by other means (e.g. phone or fax) losartan 50 mg tablet RxNorm: 899234 1 Tablet(s) PO daily 09/27/2017 09/26/2017 Inactive losartan 50 mg tablet RxNorm: 466542 1 Tablet(s) PO daily 09/27/2017 09/28/2017 Inactive Bactrim DS 800 mg-160 mg tablet RxNorm: 303657 1 Tablet(s) PO BID 09/13/2017 09/19/2017 Inactive Kenalog 40 mg/mL suspension for injection RxNorm: 2345520 1 Milliliter(s) Inj 09/07/2017 09/07/2017 Inactive trazodone 50 mg tablet RxNorm: 404328 TAKE ONE TABLET BY MOUTH AT BEDTIME 08/16/2017 02/11/2018 Inactive gabapentin 300 mg capsule RxNorm: 268804 1 Capsule(s) PO BID 08/03/2017 01/29/2018 Inactive Vitamin D3 5,000 unit tablet RxNorm: 219117 TAKE ONE TABLET BY MOUTH DAILY 08/01/2017 12/28/2017 Inactive ketoconazole 2 % topical cream RxNorm: 944365 APPLY TO AFFECTED AREA(S) TWO TIMES A DAY 05/31/2017 06/29/2017 Inactive hydrochlorothiazide 25 mg tablet RxNorm: 752146 TAKE ONE TABLET BY MOUTH DAILY 05/16/2017 02/09/2018 Inactive lisinopril 20 mg tablet RxNorm: 928912 TAKE ONE TABLET BY MOUTH DAILY 05/16/2017 09/06/2017 Inactive ketoconazole 2 % topical cream RxNorm: 523667 1 Application TOP BID 03/29/2017 04/11/2017 Inactive apply to faice-deliver to [facility] please betamethasone dipropionate 0.05 % topical ointment RxNorm: 490135 1 Application TOP BID 03/29/2017 04/11/2017 Inactive apply to arm/chests for itching gabapentin 300 mg capsule RxNorm: 562373 1 Capsule(s) PO BID 03/29/2017 08/02/2017 Inactive trazodone 50 mg tablet RxNorm: 039292 TAKE ONE TABLET BY MOUTH AT BEDTIME 03/28/2017 08/15/2017 Inactive Vesicare 10 mg tablet RxNorm: 350189 TAKE ONE TABLET BY MOUTH EVERY NIGHT AT BEDTIME 03/21/2017 12/26/2017 Inactive Vesicare 10 mg tablet RxNorm: 087986 TAKE ONE TABLET BY MOUTH EVERY NIGHT AT BEDTIME 03/21/2017 06/06/2017 Inactive doxycycline hyclate 100 mg capsule RxNorm: 0838025 1 Capsule(s) PO BID 03/18/2017 03/27/2017 Inactive mupirocin 2 % topical ointment RxNorm: 851036 1 Application TOP BID 03/17/2017 08/27/2018 Inactive doxycycline hyclate 100 mg tablet RxNorm: 478606 1 Tablet(s) PO BID 03/09/2017 03/15/2017 Inactive Take probiotic BID while on ABT doxycycline hyclate 100 mg tablet RxNorm: 498522 1 Tablet(s) PO BID 03/09/2017 03/08/2017 Inactive Take probiotic BID while on ABT meloxicam 15 mg tablet RxNorm: 138593 TAKE ONE TABLET BY MOUTH DAILY 02/10/2017 12/06/2017 Inactive Vitamin D3 5,000 unit tablet RxNorm: 573133 TAKE ONE TABLET BY MOUTH DAILY 02/08/2017 07/31/2017 Inactive Vitamin B-12 1,000 mcg/mL injection solution RxNorm: 767133 INJECT 1ML MONTHLY 01/24/2017 07/22/2017 Inactive lisinopril 20 mg tablet RxNorm: 288400 TAKE ONE TABLET BY MOUTH DAILY 12/13/2016 04/11/2017 Inactive trazodone 50 mg tablet RxNorm: 622659 TAKE ONE TABLET BY MOUTH AT BEDTIME 09/24/2016 03/22/2017 Inactive Vitamin D3 5,000 unit tablet RxNorm: 003636 TAKE ONE TABLET BY MOUTH DAILY 09/20/2016 02/07/2017 Inactive lisinopril 20 mg tablet RxNorm: 185138 TAKE ONE TABLET BY MOUTH DAILY 09/13/2016 12/12/2016 Inactive ketoconazole 2 % topical cream RxNorm: 055538 1 Application TOP BID 08/17/2016 08/30/2016 Inactive deliver to [facility] Pepcid 20 mg tablet RxNorm: 428967 TAKE ONE TABLET BY MOUTH TWICE A DAY 07/12/2016 12/26/2017 Inactive omega-3 acid ethyl esters 1 gram capsule RxNorm: 136828 3 Capsule(s) PO daily 06/18/2016 12/14/2016 Inactive omega-3 acid ethyl esters 1 gram capsule RxNorm: 979008 3 Capsule(s) PO daily 06/18/2016 06/17/2016 Inactive trazodone 50 mg tablet RxNorm: 414289 TAKE ONE TABLET BY MOUTH AT BEDTIME 06/08/2016 08/06/2016 Inactive tamsulosin 0.4 mg capsule RxNorm: 718941 Capsule(s) TAKE ONE CAPSULE BY MOUTH EVERY EVENING 06/04/2016 12/30/2016 Inactive hydrochlorothiazide 25 mg tablet RxNorm: 160163 TAKE ONE TABLET BY MOUTH DAILY 05/10/2016 05/09/2016 Inactive hydrochlorothiazide 25 mg tablet RxNorm: 280693 TAKE ONE TABLET BY MOUTH DAILY 05/10/2016 02/12/2018 Inactive Pepcid 20 mg tablet RxNorm: 087131 1 Tablet(s) PO BID 03/18/2016 03/17/2016 Inactive Pepcid 20 mg tablet RxNorm: 939286 1 Tablet(s) PO BID 03/18/2016 07/11/2016 Inactive lisinopril 20 mg tablet RxNorm: 261936 TAKE ONE TABLET BY MOUTH DAILY 03/18/2016 08/14/2016 Inactive Vitamin D3 5,000 unit tablet RxNorm: 373002 Tablet(s) TAKE ONE TABLET BY MOUTH DAILY 03/18/2016 09/13/2016 Inactive trazodone 50 mg tablet RxNorm: 817787 TAKE ONE TABLET BY MOUTH AT BEDTIME 03/15/2016 06/07/2016 Inactive Vesicare 10 mg tablet RxNorm: 230795 1 Tablet(s) PO QHS 03/15/2016 02/07/2017 Inactive meloxicam 15 mg tablet RxNorm: 399747 TAKE ONE TABLET BY MOUTH DAILY 03/01/2016 01/24/2017 Inactive Bactrim DS 800 mg-160 mg tablet RxNorm: 322883 1 Tablet(s) PO BID 02/10/2016 02/09/2016 Inactive Bactrim DS 800 mg-160 mg tablet RxNorm: 331182 1 Tablet(s) PO BID 02/10/2016 02/16/2016 Inactive Cipro 500 mg tablet RxNorm: 864664 1 Tablet(s) PO BID 02/06/2016 02/09/2016 Inactive Cipro 500 mg tablet RxNorm: 248611 1 Tablet(s) PO BID 02/06/2016 02/05/2016 Inactive Pennsaid 20 mg/gram/actuation (2 %) topical soln in metered- dose pump RxNorm: 9233627 2 pumps TOP BID 01/19/2016 04/19/2016 Inactive tamsulosin 0.4 mg capsule RxNorm: 009209 TAKE ONE CAPSULE BY MOUTH EVERY EVENING 01/12/2016 06/03/2016 Inactive cyanocobalamin (vit B-12) 1,000 mcg/mL injection solution RxNorm: 440819 INJECT 1 ML INTRAMUSCULARLY MONTHLY 01/01/2016 10/26/2016 Inactive Request already responded to by other means (e.g. phone or fax) Vitamin B-12 1,000 mcg/mL injection solution RxNorm: 258677 1 Milliliter(s) Inj monthly 12/24/2015 04/19/2016 Inactive please give syringes for injections Vitamin D3 5,000 unit tablet RxNorm: 605655 TAKE ONE TABLET BY MOUTH DAILY 12/08/2015 03/06/2016 Inactive pantoprazole 40 mg tablet,delayed release RxNorm: 737371 TAKE ONE TABLET BY MOUTH DAILY 12/08/2015 03/17/2016 Inactive trazodone 50 mg tablet RxNorm: 926213 TAKE ONE TABLET BY MOUTH AT BEDTIME 11/10/2015 03/08/2016 Inactive lisinopril 20 mg tablet RxNorm: 844954 TAKE ONE TABLET BY MOUTH DAILY 09/08/2015 03/05/2016 Inactive Vitamin D3 5,000 unit tablet RxNorm: 610247 1 Tablet(s) PO daily 08/12/2015 12/07/2015 Inactive pantoprazole 40 mg tablet,delayed release RxNorm: 419233 1 Tablet(s) PO daily 08/12/2015 12/07/2015 Inactive tamsulosin 0.4 mg capsule RxNorm: 925315 TAKE ONE CAPSULE BY MOUTH EVERY EVENING 07/21/2015 12/17/2015 Inactive trazodone 50 mg tablet RxNorm: 657319 TAKE ONE TABLET BY MOUTH AT BEDTIME 05/09/2015 10/05/2015 Inactive hydrochlorothiazide 25 mg tablet RxNorm: 310046 1 Tablet(s) PO QAM 04/30/2015 04/29/2015 Inactive hydrochlorothiazide 25 mg tablet RxNorm: 487023 TAKE ONE TABLET BY MOUTH DAILY 04/30/2015 02/12/2018 Inactive pantoprazole 40 mg tablet,delayed release RxNorm: 874014 1 Tablet(s) PO daily 04/16/2015 08/11/2015 Inactive meloxicam 15 mg tablet RxNorm: 487007 TAKE ONE TABLET BY MOUTH DAILY 03/03/2015 02/25/2016 Inactive lisinopril 20 mg tablet RxNorm: 212837 1 Tablet(s) PO daily 02/19/2015 09/07/2015 Inactive tamsulosin 0.4 mg capsule RxNorm: 807081 TAKE ONE CAPSULE BY MOUTH EVERY EVENING 01/20/2015 07/18/2015 Inactive cyanocobalamin (vit B-12) 1,000 mcg/mL injection solution RxNorm: 187782 Milliliter(s) INJECT 1ML INTRAMUSCULARLY MONTHLY 12/12/2014 12/22/2014 Inactive trazodone 50 mg tablet RxNorm: 138698 TAKE ONE TABLET BY MOUTH AT BEDTIME 11/14/2014 05/08/2015 Inactive erythromycin 5 mg/gram (0.5 %) eye ointment RxNorm: 054323 1/2 inch OPH QID 11/05/2014 11/14/2014 Inactive acyclovir 800 mg tablet RxNorm: 342704 1 Tablet(s) PO TID 11/05/2014 11/18/2014 Inactive Zofran 4 mg tablet RxNorm: 432644 1 Tablet(s) PO Q4H as needed nausea 11/05/2014 01/03/2015 Inactive Duragesic 12 mcg/hr transdermal patch RxNorm: 597419 1 Patch TD Q72H 11/05/2014 02/04/2015 Inactive Imitrex 100 mg tablet RxNorm: 412333 1 Tablet(s) PO q 12 hours 11/04/2014 04/15/2015 Inactive naproxen 500 mg tablet RxNorm: 611935 1 Tablet(s) PO BID 10/30/2014 11/01/2014 Inactive meloxicam 15 mg tablet RxNorm: 506259 TAKE ONE TABLET BY MOUTH DAILY 10/04/2014 03/02/2015 Inactive Vesicare 5 mg tablet RxNorm: 441059 TAKE ONE TABLET BY MOUTH AT BEDTIME 09/16/2014 07/16/2015 Inactive Vitamin D2 50,000 unit capsule RxNorm: 290686 1 Capsule(s) PO QW 09/06/2014 07/16/2015 Inactive once weekly x 12 weeks tamsulosin ER 0.4 mg capsule,extended release 24 hr RxNorm: 999218 TAKE ONE CAPSULE BY MOUTH EVERY EVENING 06/24/2014 12/20/2014 Inactive tamsulosin ER 0.4 mg capsule,extended release 24 hr RxNorm: 725357 1 Capsule(s) PO QPM 06/24/2014 01/19/2015 Inactive Vitamin D2 50,000 unit capsule RxNorm: 851577 1 Capsule(s) PO QW 05/27/2014 09/05/2014 Inactive once weekly x 12 weeks Vesicare 5 mg tablet RxNorm: 203430 1 Tablet(s) PO QHS 05/23/2014 05/22/2014 Inactive Vesicare 5 mg tablet RxNorm: 585317 1 Tablet(s) PO QHS 05/23/2014 09/15/2014 Inactive trazodone 50 mg tablet RxNorm: 050615 TAKE ONE TABLET BY MOUTH AT BEDTIME 05/13/2014 11/08/2014 Inactive trazodone 50 mg tablet RxNorm: 373851 TAKE ONE TABLET BY MOUTH AT BEDTIME 05/13/2014 11/08/2014 Inactive hydrochlorothiazide 25 mg tablet RxNorm: 185816 1 Tablet(s) PO [facility] 04/18/2014 01/12/2015 Inactive Vitamin D2 50,000 unit capsule RxNorm: 586129 TAKE ONE CAPSULE BY MOUTH ONCE WEEKLY FOR 12 WEEKS 04/09/2014 05/14/2014 Inactive trazodone 50 mg tablet RxNorm: 045909 1 Tablet(s) PO QHS 02/22/2014 05/12/2014 Inactive trazodone 50 mg tablet RxNorm: 830023 1 Tablet(s) PO QHS 02/22/2014 02/21/2014 Inactive Vitamin D2 50,000 unit capsule RxNorm: 837644 TAKE ONE CAPSULE BY MOUTH ONCE WEEKLY FOR 12 WEEKS 02/07/2014 03/06/2014 Inactive meloxicam 15 mg tablet RxNorm: 641489 TAKE ONE TABLET BY MOUTH ONCE A DAY 02/07/2014 08/05/2014 Inactive meloxicam 15 mg tablet RxNorm: 260117 TAKE ONE TABLET BY MOUTH ONCE A DAY 02/07/2014 2014 Inactive clotrimazole 1 % topical cream RxNorm: 789050 1 Application TOP BID 12/25/2013 07/16/2015 Inactive Diflucan 150 mg tablet RxNorm: 621005 1 Tablet(s) PO daily 12/25/2013 12/31/2013 Inactive tamsulosin ER 0.4 mg capsule,extended release 24 hr RxNorm: 584159 1 Capsule(s) PO QPM 11/28/2013 06/23/2014 Inactive cyanocobalamin (vit B-12) 1,000 mcg/mL injection solution RxNorm: 218880 1 Milliliter(s) Inj 11/28/2013 12/12/2014 Inactive Vitamin B-12 1,000 mcg/mL injection solution RxNorm: 300553 1 Milliliter(s) Inj monthly 11/21/2013 02/13/2015 Inactive please give syringes for injections Vitamin D2 50,000 unit capsule RxNorm: 257462 1 Capsule(s) PO QW x 12 weeks 11/21/2013 02/06/2014 Inactive [SAVINGS FOR UNINSURED PATIENTS -- to take addtional 2000 units daily Vitamin B-12 1,000 mcg/mL injection solution RxNorm: 488877 1 Milliliter(s) Inj monthly 11/21/2013 11/20/2013 Inactive meloxicam 15 mg tablet RxNorm: 947149 1 Tablet(s) PO daily 11/20/2013 11/19/2013 Inactive [SAVINGS FOR UNINSURED PATIENTS -- BIN:[id number], PCN: [id number], Group: [id number], ID# [id number], Process claim through [employer], for questions: . THIS IS NOT INSURANCE.] meloxicam 15 mg tablet RxNorm: 659606 1 Tablet(s) PO daily 11/20/2013 02/06/2014 Inactive [SAVINGS FOR UNINSURED PATIENTS -- BIN:[id number], PCN: [id number], Group: [id number], ID# [id number], Process claim through [employer], for questions: . THIS IS NOT INSURANCE.] meloxicam 15 mg tablet RxNorm: 837832 1 Tablet(s) PO daily 11/20/2013 11/19/2013 Inactive Voltaren 1 % topical gel RxNorm: 564200 4 Application TOP QID apply to back, affected joints four times daily 11/14/2013 11/20/2013 Inactive Iron (ferrous sulfate) 325 mg (65 mg iron) tablet RxNorm: 137785 1 Tablet(s) PO daily No Start Date Active trazodone 50 mg tablet RxNorm: 408589 1 Tablet(s) PO QHS No Start Date Active Vitamin D2 50,000 unit capsule RxNorm: 203238 1 Capsule(s) PO QW No Start Date 05/26/2014 Inactive once weekly x 12 weeks Zithromax Z-Brian 250 mg tablet RxNorm: 460973 1 Tablet(s) PO UD No Start Date 02/06/2018 Inactive Vitamin D2 50,000 unit capsule RxNorm: 051687 1 Capsule(s) PO QW No Start Date 11/20/2013 Inactive gabapentin 300 mg capsule RxNorm: 898918 1 Capsule(s) PO TID No Start Date 03/28/2017 Inactive Vesicare 10 mg tablet RxNorm: 920252 1 Tablet(s) PO QHS No Start Date 03/14/2016 Inactive Toprol XL 25 mg tablet,extended release RxNorm: 029747 1 Tablet(s) PO daily No Start Date 04/19/2018 Inactive Vitamin D3 5,000 unit tablet RxNorm: 764552 1 Tablet(s) PO daily No Start Date 08/11/2015 Inactive Celebrex 200 mg capsule RxNorm: 500547 1 Capsule(s) PO BID No Start Date 07/19/2016 Inactive Imitrex 50 mg tablet RxNorm: 103898 1 Tablet(s) PO now and may repeat up to four times in 24 hours No Start Date 11/03/2014 Inactive Zofran 4 mg tablet RxNorm: 408933 1 Tablet(s) PO Q8 as needed nausea and vomitting No Start Date 10/15/2015 Inactive ranitidine 150 mg tablet RxNorm: 665955 1 Tablet(s) PO BID No Start Date 02/12/2018 Inactive Phenergan 25 mg tablet RxNorm: 298971 1 Tablet(s) PO now No Start Date 04/15/2015 Inactive Tums oral RxNorm: 315984 oral No Start Date 10/15/2015 Inactive Medication Administered Medication Codes Instructions Start Date Status Kenalog 40 mg/mL suspension for injection RxNorm: 9322376 Milliliter 08/28/2018 No longer Active Kenalog 40 mg/mL suspension for injection RxNorm: 7462438 1Milliliter 09/07/2017 No longer Active cyanocobalamin (vit B-12) 1,000 mcg/mL injection solution RxNorm: 087956 1Milliliter 11/28/2013 No longer Active Immunizations Vaccine Codes Date Status Influenza CVX: 141 04/06/2017 completed PPD Unknown 07/03/2015 completed Zoster CVX: 121 11/29/2014 completed Influenza CVX: 141 03/26/2013 completed Assessments Condition Codes Effective Dates Rash and other nonspecific skin eruption ICD-10: [...] Visit Reason For Visit Effective Dates Notes rash 09/04/2018 rash 08/28/2018 hypertension 08/21/2018 rash [...] went to an eye doctor in [place]. Reports that he did have hemorrhaging in his right eye which is getting better. headache 04/18/2014 Pt states he recently went to an eye doctor in [place] shortness of breath 02/21/2014 blisters 12/25/2013 insomnia 11/28/2013 back pain 11/14/2013 Results Observation Observation Code Item Item Code Result Date Vitamin D 25 Oh [id number] VITAMIN D, 25 HYDROXY 66.80 ng/mL 03/14/2018 [...] 28.5 pg 03/14/2018 Cbc With Differential Ord2 Hardy% 7.6 % 03/14/2018 Cbc With Differential Ord2 [...] 1.28 K/ul 03/14/2018 Cbc With Differential Ord2 [place] ABS# 0.4 K/ul 03/14/2018 Cbc With Differential [...] Lipid Ord30 C/HDL 5.0 Ratio 06/27/2017 %Hba1C Oij292 % HbA1c 04460- 6 6.2 % 06/27/2017 %Hba1C Kxz026 Gluc Ave 131 mg/dL 06/27/2017 Comp Metabolic Gcp095 NA 140 mEq/L 06/27/2017 Comp Metabolic Ibo007 K 4.2 mEq/L 06/27/2017 Comp Metabolic Acd671 CL 100 mEq/L 06/27/2017 Comp Metabolic Gzb278 CO2 32.0 mEq/L 06/27/2017 Comp Metabolic Txg440 ANION GAP 12 06/27/2017 Comp Metabolic Hci630 GLUCOSE 118 mg/dL 06/27/2017 Comp Metabolic Sbs888 Creat 1.0 mg/dL 06/27/2017 Comp Metabolic Vyh032 eGFR 82 ml/min/1.73m2 06/27/2017 Comp Metabolic Wts161 BUN 26 mg/dL 06/27/2017 Comp Metabolic Rpx290 B/C Ratio 27.1 Ratio 06/27/2017 Comp Metabolic Xjz272 CALCIUM 9.6 mg/dL 06/27/2017 Comp Metabolic Jvw035 ALK PHOS 46 U/L 06/27/2017 Comp Metabolic Pts325 AST(SGOT) 23 U/L 06/27/2017 Comp Metabolic Jix444 ALT(SGPT) 31 U/L 06/27/2017 Comp Metabolic Rcp273 BILI T 0.5 mg/dL 06/27/2017 Comp Metabolic Voi853 ALBUMIN 4.2 g/dL 06/27/2017 Comp Metabolic Npv342 TPRO 6.6 g/dL 06/27/2017 Comp Metabolic Yzp503 GLOB 2.4 g/dL 06/27/2017 Comp Metabolic Byp828 A/G Ratio 1.7 Ratio 06/27/2017 Comp Metabolic Ccp945 Osmo 285 mOsmo 06/27/2017 Cbc With Differential [...] 29.0 pg 10/20/2016 Cbc With Differential Ord2 Hardy% 9.0 % 10/20/2016 Cbc With Differential Ord2 [...] 1.33 K/ul 10/20/2016 Cbc With Differential Ord2 [place] ABS# 0.4 K/ul 10/20/2016 Cbc With Differential Ord2 Eos ABS# 0.2 K/ul 10/20/2016 Cbc With Differential Ord2 Baso ABS# 0.0 K/ul 10/20/2016 Comp Metabolic Afp352 NA 143 mEq/L 10/20/2016 Comp Metabolic Lqm689 K 4.6 mEq/L 10/20/2016 Comp Metabolic Ptj851 CL 104 mEq/L 10/20/2016 Comp Metabolic Hmp318 CO2 31.0 mEq/L 10/20/2016 Comp Metabolic Kwa274 ANION GAP 13 10/20/2016 Comp Metabolic Olq189 GLUCOSE 117 mg/dL 10/20/2016 Comp Metabolic Lsq009 Creat 1.1 mg/dL 10/20/2016 Comp Metabolic Xtr230 eGFR 74 ml/min/1.73m2 10/20/2016 Comp Metabolic Xjs507 BUN 27 mg/dL 10/20/2016 Comp Metabolic Ocn329 B/C Ratio 25.7 Ratio 10/20/2016 Comp Metabolic Iat062 CALCIUM 9.3 mg/dL 10/20/2016 Comp Metabolic Haa170 ALK PHOS 47 U/L 10/20/2016 Comp Metabolic Grw321 AST(SGOT) 18 U/L 10/20/2016 Comp Metabolic Fsu857 ALT(SGPT) 22 U/L 10/20/2016 Comp Metabolic Ghf308 BILI T 0.5 mg/dL 10/20/2016 Comp Metabolic Lph930 ALBUMIN 3.9 g/dL 10/20/2016 Comp Metabolic Mhp753 TPRO 6.5 g/dL 10/20/2016 Comp Metabolic Dtx287 GLOB 2.6 g/dL 10/20/2016 Comp Metabolic Eov528 A/G Ratio 1.5 Ratio 10/20/2016 Comp Metabolic Vyj296 Osmo 291 mOsmo 10/20/2016 Tsh Ord6 hTSH II 1.56 uIU/mL 10/20/2016 Lipid Ord30 CHOL 153 mg/dL 10/20/2016 Lipid Ord30 HDL 34.0 mg/dl 10/20/2016 Lipid Ord30 TRIG 123 mg/dL 10/20/2016 Lipid Ord30 LDL 94 mg/dL 10/20/2016 Lipid Ord30 C/HDL 4.5 Ratio 10/20/2016 B12 Qru240 B12 544.00 pg/ml 10/20/2016 Comp Metabolic Tit227 NA 138 mEq/L 05/13/2016 Comp Metabolic Nga779 K 4.2 mEq/L 05/13/2016 Comp Metabolic Isw225 CL 102 mEq/L 05/13/2016 Comp Metabolic Scz000 CO2 30.0 mEq/L 05/13/2016 Comp Metabolic Rrd128 ANION GAP 10 05/13/2016 Comp Metabolic Onz954 GLUCOSE 113 mg/dL 05/13/2016 Comp Metabolic Bge894 Creat 1.0 mg/dL 05/13/2016 Comp Metabolic Tzj371 eGFR 77 ml/min/1.73m2 05/13/2016 Comp Metabolic Foc244 BUN 26 mg/dL 05/13/2016 Comp Metabolic Rlr193 B/C Ratio 25.5 Ratio 05/13/2016 Comp Metabolic Ehj998 CALCIUM 9.7 mg/dL 05/13/2016 Comp Metabolic Mbs943 ALK PHOS 51 U/L 05/13/2016 Comp Metabolic Mio157 AST(SGOT) 17 U/L 05/13/2016 Comp Metabolic Rqz108 ALT(SGPT) 20 U/L 05/13/2016 Comp Metabolic Tdc625 BILI T 0.6 mg/dL 05/13/2016 Comp Metabolic Iqq127 ALBUMIN 4.0 g/dL 05/13/2016 Comp Metabolic Gao285 TPRO 6.6 g/dL 05/13/2016 Comp Metabolic Jxm635 GLOB 2.6 g/dL 05/13/2016 Comp Metabolic Hyu751 A/G Ratio 1.6 Ratio 05/13/2016 Comp Metabolic Lsx420 Osmo 281 mOsmo 05/13/2016 Lipid Ord30 CHOL [...] 29.3 pg 02/11/2016 Cbc With Differential Ord2 Hardy% 7.7 % 02/11/2016 Cbc With Differential Ord2 [...] 1.18 K/ul 02/11/2016 Cbc With Differential Ord2 Hardy ABS# 0.4 K/ul 02/11/2016 Cbc With Differential Ord2 Eos ABS# 0.1 K/ul 02/11/2016 Cbc With Differential Ord2 Baso ABS# 0.0 K/ul 02/11/2016 Comp Metabolic Nfx525 NA 138 mEq/L 02/11/2016 Comp Metabolic Xpo874 K 4.0 mEq/L 02/11/2016 Comp Metabolic Szj241 CL 97 mEq/L 02/11/2016 Comp Metabolic Kit563 CO2 32.0 mEq/L 02/11/2016 Comp Metabolic Ojy453 ANION GAP 13 02/11/2016 Comp Metabolic Gwb553 GLUCOSE 117 mg/dL 02/11/2016 Comp Metabolic Lfd916 Creat 1.0 mg/dL 02/11/2016 Comp Metabolic Yxi189 eGFR 81 ml/min/1.73m2 02/11/2016 Comp Metabolic Ntx958 BUN 21 mg/dL 02/11/2016 Comp Metabolic Psu376 B/C Ratio 21.4 Ratio 02/11/2016 Comp Metabolic Ebg443 CALCIUM 9.2 mg/dL 02/11/2016 Comp Metabolic Rki310 ALK PHOS 48 U/L 02/11/2016 Comp Metabolic Big497 AST(SGOT) 18 U/L 02/11/2016 Comp Metabolic Gzh596 ALT(SGPT) 22 U/L 02/11/2016 Comp Metabolic Lea265 BILI T 0.5 mg/dL 02/11/2016 Comp Metabolic Qcy510 ALBUMIN 3.9 g/dL 02/11/2016 Comp Metabolic Xve883 TPRO 6.3 g/dL 02/11/2016 Comp Metabolic Tee608 GLOB 2.5 g/dL 02/11/2016 Comp Metabolic Qnz508 A/G Ratio 1.6 Ratio 02/11/2016 Comp Metabolic Hdm197 Osmo 280 mOsmo 02/11/2016 Lipid Ord30 CHOL 163 mg/dL 02/11/2016 Lipid Ord30 HDL 35.0 mg/dl 02/11/2016 Lipid Ord30 TRIG 200 mg/dL 02/11/2016 Lipid Ord30 LDL 88 mg/dL 02/11/2016 Lipid Ord30 C/HDL 4.7 Ratio 02/11/2016 %Hba1C Ufa148 % HbA1c 42442- 6 6.5 % 02/11/2016 %Hba1C Sge928 Gluc Ave 140 mg/dL 02/11/2016 Tsh Ord6 hTSH II 2.07 uIU/mL 02/11/2016 B12 Leh339 B12 563.00 pg/ml 02/11/2016 Culture Urine [id number] URINE CULTURE SEE NOTES 02/10/2016 Culture Urine [id number] Continued Results 02/10/2016 Urine Culture Ucult Complete [...] hours from collection if refrigerated) 11/04/2015 %Hba1C Psd267 % HbA1c 32550- 6 6.4 % 04/16/2015 %Hba1C Aqy280 Gluc Ave 137 mg/dL 04/16/2015 Tsh Ord6 hTSH II 3.33 uIU/mL 02/07/2015 Comp Metabolic Gxl261 NA 136 mEq/L 02/07/2015 Comp Metabolic Hie646 K 3.9 mEq/L 02/07/2015 Comp Metabolic Ewu360 CL 98 mEq/L 02/07/2015 Comp Metabolic Nfn086 CO2 31.0 mEq/L 02/07/2015 Comp Metabolic Bcx808 ANION GAP 11 02/07/2015 Comp Metabolic Ijm853 GLUCOSE 139 mg/dL 02/07/2015 Comp Metabolic Psn731 Creat 0.9 mg/dL 02/07/2015 Comp Metabolic Paf845 eGFR 87 ml/min/1.73m2 02/07/2015 Comp Metabolic Avz634 BUN 20 mg/dL 02/07/2015 Comp Metabolic Wgp718 B/C Ratio 21.7 Ratio 02/07/2015 Comp Metabolic Flu209 CALCIUM 9.7 mg/dL 02/07/2015 Comp Metabolic Bvk819 ALK PHOS 55 U/L 02/07/2015 Comp Metabolic Ibo541 AST(SGOT) 20 U/L 02/07/2015 Comp Metabolic Ist867 ALT(SGPT) 27 U/L 02/07/2015 Comp Metabolic Ojs750 BILI T 0.5 mg/dL 02/07/2015 Comp Metabolic Jbr691 ALBUMIN 4.3 g/dL 02/07/2015 Comp Metabolic Jyb936 TPRO 6.9 g/dL 02/07/2015 Comp Metabolic Kjz203 GLOB 2.6 g/dL 02/07/2015 Comp Metabolic Jwr884 A/G Ratio 1.7 Ratio 02/07/2015 Comp Metabolic Cis326 Osmo 277 mOsmo 02/07/2015 Cbc With Differential [...] Ord2 RDW 14.8 % 02/07/2015 A1C HPLC [id number] A1C HPLC 51934-6 6.0 % 05/23/2014 VIT B 12 [id number] VIT B 12 479 PG/ML 05/23/2014 VIT D TOTL [id number] VIT D TOTL 29 NG/ML 05/23/2014 Review of Systems System Result Effective Dates Constitutional No recent illness 09/04/2018 Constitutional No [...] Result Effective Dates Notes Full Exam - General 1994 Constitutional general [...] kyphoscoliosis 09/07/2017 None Full Exam - General 1994 Musculoskeletal gait and station Gait: asymmetric 09/07/2017 [...] normal 06/07/2017 None Full Exam - General 1995 Respiratory respiratory effort/rhythm Overall: no retractions 06/07/2017 [...] 1994 Ears/Nose/Throat oral cavity/pharynx/larynx Overall: hypopharynx benign 04/18/2014 [...] rhythm 11/14/2013 None Full Exam - General 1994 Cardiovascular auscultation of heart Rate: tachycardia 11/14/2013 None Procedures Procedure Codes Date TRIAMCINOLONE ACET INJ NOS CPT-4: J3301 08/28/2018 TRIAMCINOLONE ACET INJ NOS CPT-4: J3301 02/08/2018 PPPS, SUBSEQ VISIT CPT- 4: G0439 12/27/2017 THER/PROPH/DIAG INJ SC/IM CPT-4: 82533 09/07/2017 TRIAMCINOLONE ACET INJ NOS CPT-4: J3301 09/07/2017 ROUTINE VENIPUNCTURE CPT- 4: 07293 05/23/2014 THER/PROPH/DIAG INJ SC/IM CPT-4: 89511 11/28/2013 VITAMIN B12 INJECTION CPT- 4: J3420 11/28/2013 Vital Signs Date Vital 09/04/2018 Blood Pressure 1: 143/80 Code: 8480-6 BMI: 36.8 Code: 83842-8 Heart Rate 1: 88 bpm Height: 6' SpO2: 93% Weight: 271 lbs 08/28/2018 Blood Pressure 1: 144/72 Code: 8480-6 BMI: 36.8 Code: 40330-1 Heart Rate 1: 65 bpm Height: 6' SpO2: 97% Weight: 271 lbs 08/21/2018 Blood Pressure 1: 110/66 Code: 8480-6 BMI: 36.6 Code: 06718-0 Heart Rate 1: 70 bpm Height: 6' SpO2: 93% Weight: 270 lbs 06/27/2018 Blood Pressure 1: 124/70 Code: 8480-6 BMI: 36.6 Code: 82315-2 Heart Rate 1: 64 bpm Height: 6' SpO2: 96% Weight: 270 lbs 04/20/2018 Blood Pressure 1: 126/74 Code: 8480-6 BMI: 36.6 Code: 15523-2 Heart Rate 1: 60 bpm Height: 6' SpO2: 94% Weight: 270 lbs 03/21/2018 Blood Pressure 1: 138/74 Code: 8480-6 BMI: 36.8 Code: 96466-1 Heart Rate 1: 81 bpm Height: 6' SpO2: 98% Weight: 271 lbs 02/08/2018 Blood Pressure 1: 132/74 Code: 8480-6 BMI: 37.0 Code: 76868-1 Heart Rate 1: 82 bpm Height: 6' SpO2: 97% Weight: 273 lbs 12/27/2017 Blood Pressure 1: 148/78 Code: 8480-6 BMI: 36.3 Code: 17144-3 Heart Rate 1: 78 bpm Height: 6' SpO2: 93% Waist Measure (cm): 117 cm Weight: 268 lbs 12/06/2017 Blood Pressure 1: 122/70 Code: 8480-6 BMI: 36.6 Code: 91710-5 Heart Rate 1: 76 bpm Height: 6' SpO2: 93% Weight: 270 lbs 11/01/2017 BMI: 36.9 Code: 19655-2 Height: 6' Weight: 272 lbs 09/07/2017 Blood Pressure 1: 140/78 Code: 8480-6 BMI: 35.8 Code: 42476-6 Heart Rate 1: 76 bpm Height: 6' SpO2: 98% Weight: 264 lbs 06/07/2017 Blood Pressure 1: 138/86 Code: 8480-6 BMI: 36.3 Code: 63402-2 Heart Rate 1: 66 bpm Height: 6' SpO2: 95% Weight: 268 lbs 05/19/2017 Blood Pressure 1: 152/84 Code: 8480-6 BMI: 36.8 Code: 48092-9 Heart Rate 1: 70 bpm Height: 6' SpO2: 93% Weight: 271 lbs 05/09/2017 Blood Pressure 1: 138/76 Code: 8480-6 BMI: 36.6 Code: 06811-6 Heart Rate 1: 79 bpm Height: 6' SpO2: 93% Weight: 270 lbs 04/25/2017 Blood Pressure 1: 150/80 Code: 8480-6 Heart Rate 1: 58 bpm Height: SpO2: 94% Weight: 2017 Blood Pressure 1: 138/80 Code: 8480-6 BMI: 36.5 Code: 77411-0 Heart Rate 1: 76 bpm Height: 6' SpO2: 96% Weight: 269 lbs 03/29/2017 Blood Pressure 1: 118/68 Code: 8480-6 BMI: 36.9 Code: 88453-2 Heart Rate 1: 61 bpm Height: 6' SpO2: 95% Weight: 272 lbs 03/17/2017 Blood Pressure 1: 140/78 Code: 8480-6 BMI: 36.8 Code: 36544-7 Heart Rate 1: 91 bpm Height: 6' SpO2: 93% Weight: 271 lbs 03/08/2017 Blood Pressure 1: 152/84 Code: 8480-6 BMI: 36.8 Code: 28860-0 Heart Rate 1: 72 bpm Height: 6' SpO2: 92% Temperature: 36.6 (C) / 97.8 (F) Weight: 271 lbs 02/17/2017 Blood Pressure 1: 110/64 Code: 8480-6 BMI: 36.5 Code: 76051-6 Heart Rate 1: 62 bpm Height: 6' SpO2: 96% Weight: 269 lbs 01/18/2017 Blood Pressure 1: 140/80 Code: 8480-6 BMI: 36.5 Code: 65355-4 Heart Rate 1: 62 bpm Height: 6' SpO2: 94% Weight: 269 lbs 10/19/2016 Blood Pressure 1: 120/80 Code: 8480-6 BMI: 35.9 Code: 04596-5 Heart Rate 1: 64 bpm Height: 6' SpO2: 97% Weight: 265 lbs 08/17/2016 Blood Pressure 1: 112/76 Code: 8480-6 BMI: 36.1 Code: 30809-2 Heart Rate 1: 65 bpm Height: 6' SpO2: 97% Weight: 266 lbs 07/20/2016 Blood Pressure 1: 126/78 Code: 8480-6 BMI: 35.5 Code: 19445-6 Heart Rate 1: 60 bpm Height: 6' SpO2: 95% Weight: 262 lbs 04/19/2016 Blood Pressure 1: 132/78 Code: 8480-6 BMI: 35.1 Code: 83522-7 Heart Rate 1: 65 bpm Height: 6' SpO2: 98% Weight: 259 lbs 01/19/2016 Blood Pressure 1: 140/64 Code: 8480-6 BMI: 34.4 Code: 10335-5 Heart Rate 1: 61 bpm Height: 6' SpO2: 97% Weight: 254 lbs 10/16/2015 Blood Pressure 1: 108/66 Code: 8480-6 BMI: 35.3 Code: 52301-2 Heart Rate 1: 65 bpm Height: 6' SpO2: 96% Weight: 260 lbs 07/17/2015 Blood Pressure 1: 136/74 Code: 8480-6 BMI: 35.8 Code: 43485-1 Heart Rate 1: 59 bpm Height: 6' SpO2: 97% Weight: 263 lbs 13 oz 07/03/2015 Weight: 265 lbs 04/16/2015 Blood Pressure 1: 130/82 Code: 8480-6 BMI: 36.1 Code: 99650-3 Heart Rate 1: 7694 bpm Height: 6' SpO2: 94% Weight: 266 lbs 02/19/2015 Blood Pressure 1: 160/90 Code: 8480-6 BMI: 35.8 Code: 19483-9 Heart Rate 1: 78 bpm Height: 6' SpO2: 94% Weight: 264 lbs 11/20/2014 Blood Pressure 1: 140/96 Code: 8480-6 BMI: 34.6 Code: 95351-9 Heart Rate 1: 92 bpm Height: 6' SpO2: 95% Weight: 255 lbs 11/05/2014 Blood Pressure 1: 132/70 Code: 8480-6 BMI: 34.6 Code: 34530-0 Heart Rate 1: 96 bpm Height: 6' SpO2: 98% Weight: 255 lbs 09/19/2014 Blood Pressure 1: 152/86 Code: 8480-6 BMI: 35.8 Code: 81117-4 Heart Rate 1: 82 bpm Height: 6' SpO2: 95% Weight: 264 lbs 07/24/2014 Blood Pressure 1: 142/82 Code: 8480-6 BMI: 34.7 Code: 76264-9 Heart Rate 1: 72 bpm Height: 6' Weight: 256 lbs 05/23/2014 Blood Pressure 1: 150/82 Code: 8480-6 BMI: 33.4 Code: 98957-6 Heart Rate 1: 68 bpm Height: 6' Weight: 246 lbs 04/18/2014 Blood Pressure 1: 132/84 Code: 8480-6 BMI: 33.2 Code: 73106-0 Heart Rate 1: 80 bpm Height: 6' Weight: 245 lbs 02/21/2014 Blood Pressure 1: 138/82 Code: 8480-6 BMI: 32.4 Code: 59324-9 Heart Rate 1: 85 bpm Height: 6' SpO2: 98% Weight: 239 lbs 12/25/2013 Blood Pressure 1: 146/80 Code: 8480-6 BMI: 30.5 Code: 25432-6 Heart Rate 1: 100 bpm Height: 6' Weight: 225 lbs 11/28/2013 Blood Pressure 1: 120/64 Code: 8480-6 BMI: 30.4 Code: 58254-6 Heart Rate 1: 68 bpm Height: 6' Weight: 224 lbs 11/14/2013 Blood Pressure 1: 124/80 Code: 8480-6 BMI: 30.0 Code: 03993-2 Heart Rate 1: 76 bpm Height: 6' Weight: 221 lbs Functional Status No Functional Status data History of Present Illness Symptom Name Status Result Effective Date Notes Quality acute 09/04/2018 None Onset and Resolution [...] not bring in readings 08/21/2018 -Checked at [facility] Pertinent Findings Denies dizziness 08/21/2018 None Pertinent [...] and Polytrim seeing eye dr in [place]. Reports eye still feels irritated. headache Quality [...] and Poly[place] seeing eye dr in [place]. Reports eye still feels irritated. headache Quality [...] data Encounters Encounter Performer Location Codes Date ([id number]) 90611 EST. PATIENT, LEVEL II Diagnosis: Rash and other nonspecific skin eruption[ICD10: R21] [facility] CPT-4: 07193 09/04/2018 ([id number]) 46809 EST. PATIENT, LEVEL III Diagnosis: Rash and other nonspecific skin eruption[ICD10: R21] Diagnosis: Other pruritus[ICD10: L29.8] Glory Long MD, [facility] CPT-4: 70890 08/28/2018 ([id number]) 45706 EST. PATIENT, LEVEL IV Diagnosis: Essential (primary) hypertension[ICD10: I10] Diagnosis: Pain in right shoulder[ICD10: M25.511] Diagnosis: Muscle weakness (generalized)[ICD10: M62.81] Quyen Long MD, [facility] CPT-4: 73084 08/21/2018 28420 EST. PATIENT, LEVEL III Diagnosis: Tinea barbae and tinea capitis[ICD10: B35.0] Glory Long MD, [facility] CPT-4: 13265 06/27/2018 ([id number]) 80623 EST. 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 PATIENT, LEVEL III Diagnosis: Acute bronchitis due to other specified organisms[ICD10: J20.8] Antoinette Long MD, [facility] CPT-4: 86243 02/08/2018 ([id number]) 16568 EST. 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 PATIENT, LEVEL III Diagnosis: Essential (primary) hypertension[ICD10: I10] Diagnosis: Localized edema[ICD10: R60.0] Diagnosis: Cellulitis of left lower limb[ICD10: L03.116] Quyen Long MD, [facility] CPT-4: 88056 06/07/2017 ([id number]) 59123 EST. 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 PATIENT, LEVEL II Diagnosis: Rash and other nonspecific skin eruption[ICD10: R21] Glory Long MD, [facility] CPT-4: 29848 05/09/2017 ([id number]) 63697 EST. PATIENT, LEVEL II Diagnosis: Rash and other nonspecific skin eruption[ICD10: R21] Glory Long MD, [facility] CPT-4: 34469 04/25/2017 ([id number]) 65262 EST. PATIENT, LEVEL III Diagnosis: Cellulitis of left lower limb[ICD10: L03.116] Diagnosis: Rash and other nonspecific skin eruption[ICD10: R21] Glory Long MD, [facility] CPT-4: 01433 2017 ([id number]) 95748 EST. PATIENT, LEVEL III Diagnosis: Cellulitis of left lower limb[ICD10: L03.116] Diagnosis: Rash and other nonspecific skin eruption[ICD10: R21] Glory Long MD, [facility] CPT-4: 06424 03/29/2017 99767 EST. PATIENT, LEVEL IV Diagnosis: Cellulitis of left lower limb[ICD10: L03.116] Antoinette Long MD, [facility] CPT-4: 93787 03/17/2017 ([id number]) 46986 EST. PATIENT, LEVEL III Diagnosis: Rash and other nonspecific skin eruption[ICD10: R21] Glory Long MD, [facility] CPT-4: 65366 03/08/2017 96209 EST. PATIENT, LEVEL IV Diagnosis: Essential (primary) hypertension[ICD10: I10] Diagnosis: Muscle weakness (generalized)[ICD10: M62.81] Diagnosis: Body mass index (BMI) 36.0-36.9, adult[ICD10: Z68.36] Diagnosis: Family history of ischemic heart disease and other diseases of the circulatory system[ICD10: Z82.49] Antoinette Long MD, [facility] CPT-4: 49902 02/17/2017 ([id number]) 40755 EST. PATIENT, LEVEL IV Diagnosis: Essential (primary) hypertension[ICD10: I10] Diagnosis: Muscle weakness (generalized)[ICD10: M62.81] Quyen Long MD, [facility] CPT-4: 95271 01/18/2017 ([id number]) 47312 EST. 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 PATIENT, LEVEL III Diagnosis: Pain in left shoulder[ICD10: M25.512] Diagnosis: Rash and other nonspecific skin eruption[ICD10: R21] Glory Long MD, [facility] CPT-4: 32403 08/17/2016 ([id number]) 63106 EST. PATIENT, LEVEL IV Diagnosis: Essential (primary) hypertension[ICD10: I10] Diagnosis: Pain in left shoulder[ICD10: M25.512] Quyen Long MD, [facility] CPT-4: 40534 07/20/2016 ([id number]) 12883 EST. 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 PATIENT, LEVEL IV Diagnosis: Essential (primary) hypertension[ICD10: I10] Diagnosis: Other abnormal glucose[ICD10: R73.09] Diagnosis: Gastro-esophageal reflux disease without esophagitis[ICD10: K21.9] Diagnosis: Obesity, unspecified[ICD10: E66.9] Quyen Long MD [facility] CPT- 4: 04916 04/16/2015 [id number]) 57880 EST. PATIENT, LEVEL IV Diagnosis: ESSENTIAL HYPERTENSION[ICD9: 401.9] Diagnosis: OBESITY[ICD9: 278.00] Diagnosis: Post-polio limb muscle weakness[ICD9: 728.87] Quyen Long MD [facility] CPT-4: 71998 02/19/2015 ([id number]) 23715 EST. PATIENT, LEVEL IV Diagnosis: Shingles outbreak[ICD9: 053.9] Diagnosis: ESSENTIAL HYPERTENSION[ICD9: 401.9] Diagnosis: Earache[ICD9: 388.70] Quyen Long MD [facility] CPT-4: 61514 11/20/2014 ([id number]) 31080 EST. PATIENT, LEVEL III Diagnosis: Shingles outbreak[ICD9: 053.9] Diagnosis: Face pain[ICD9: 784.0] Diagnosis: Pain, eye, right[ICD9: 379.91] Quyen Long MD [facility] CPT-4: 71091 11/05/2014 [id number]) 01226 EST. PATIENT, LEVEL V Diagnosis: Post-polio limb muscle weakness[ICD9: 728.87] Diagnosis: Post-polio syndrome[ICD9: 138] Diagnosis: Leg weakness[ICD9: 729.89] Diagnosis: Weakness[ICD9: 780.79] Diagnosis: Foot drop[ICD9: 736.79] Quyen Long MD [facility] CPT-4: 02032 09/19/2014 ([id number]) 72225 EST. PATIENT, LEVEL IV Diagnosis: ESSENTIAL HYPERTENSION[ICD9: 401.9] Diagnosis: Carotid bruit[ICD9: 785.9] Diagnosis: Seborrheic dermatitis[ICD9: 690.10] Diagnosis: Post-polio syndrome[ICD9: 138] Diagnosis: Vitamin D deficiency[ICD9: 268.9] Quyen Long MD [facility] CPT- 4: 07246 07/24/2014 [id number]) 44485 EST. PATIENT, LEVEL IV Diagnosis: Neck pain[ICD9: 723.1] Diagnosis: Post-polio syndrome[ICD9: 138] Diagnosis: Vitamin D deficiency[ICD9: 268.9] Diagnosis: Vitamin B12 deficiency[ICD9: 266.2] Diagnosis: Nocturia[ICD9: 788.43] Diagnosis: Leg weakness[ICD9: 729.89] Diagnosis: Elevated blood sugar[ICD9: 790.29] Glory Long MD, [facility] CPT- 4: 93921 05/23/2014 ([id number]) 05474 EST. PATIENT, LEVEL IV Diagnosis: ESSENTIAL HYPERTENSION[ICD9: 401.9] Diagnosis: HEADACHE[ICD9: 784.0] Diagnosis: EDEMA[ICD9: 782.3] Quyen Long MD, [facility] CPT-4: 88361 04/18/2014 11783 EST. PATIENT, LEVEL IV Diagnosis: Insomnia[ICD9: 780.52] Diagnosis: Post-polio syndrome[ICD9: 138] Diagnosis: Vitamin D deficiency[ICD9: 268.9] Diagnosis: Nocturnal hypoxemia[ICD9: 799.02] Glory Long MD, [facility] CPT- 4: 04670 02/21/2014 ([id number]) 49172 EST. PATIENT, LEVEL III Diagnosis: Tinea pedis[ICD9: 110.4] Diagnosis: Post-polio limb muscle weakness[ICD9: 728.87] Glory Long MD, [facility] CPT-4: 88940 12/25/2013 ([id number]) 30852 EST. PATIENT, LEVEL IV Diagnosis: Insomnia[ICD9: 780.52] Diagnosis: Vitamin B12 deficiency (dietary) anemia[ICD9: 281.1] Diagnosis: VITAMIN D DEFICIENCY[ICD9: 268.9] Diagnosis: Weakness[ICD9: 780.79] Quyen Long MD, [facility] CPT-4: 44892 11/28/2013 ([id number]) OFFICE/OUTPATIENT VISIT NEW Diagnosis: Post-polio limb muscle weakness[ICD9: 728.87] Diagnosis: Post-polio syndrome[ICD9: 138] Diagnosis: Insomnia[ICD9: 780.52] Diagnosis: Arrhythmia[ICD9: 427.9] Quyen Long MD, [facility] CPT-4: 62980 11/14/2013 Plan of Care Planned Activity Notes Codes Status Date Visit Plan: Rash-resolved -continue topical betamethasone cream as ordered-call if rash returns 09/04/2018 Appointment: Glory Dalton WPtel: [address] [place], [place] [phone] (30 min) Complex 09/04/2018 Patient Education: Patient Medication Summary Completed 09/04/2018 Visit Plan: Rash-culture today in the office -kenalog injection for acute symptoms -start prednisone tomorrow- treat with abx if indicated on culture- follow up in 1 week, sooner if needed 08/28/2018 Appointment: Glory Dalton WPtel: [facility]4 [phone] (30 min) Complex 08/28/2018 Patient Education: Patient Medication Summary Completed 08/28/2018 Appointment: Quyen Long WPtel: [facility]6 [facility] (15 min) Moderate 08/24/2018 Visit Plan: Hypertension [...] Post-Polio syndrome. 08/21/2018 Appointment: Quyen Long WPtel: [facility] (15 min) Moderate 08/21/2018 Patient Education: Patient Medication Summary Completed 08/21/2018 Patient Education: Hypertension Completed 08/21/2018 Visit Plan: Tinea barbae -rx for ketoconazole written and instructed patient on use -instructed patient to call or return to clinic if symptoms do not resolve or if any worse. Patient verbalized understanding of plan. 06/27/2018 Appointment: Glory Dalton WPtel: [phone] (30 min) Complex 06/27/2018 Patient Education: Patient [...] his shoulder. 04/20/2018 Appointment: Quyen Long WPtel: [phone] [facility] (15 min) Moderate 04/20/2018 Patient Education: Patient Medication Summary Completed 04/20/2018 Patient Education: Hypertension Completed 04/20/2018 Appointment: Quyen Long WPtel: [phone] [facility] (15 min) Moderate 04/11/2018 Visit Plan: Post polio syndrome -right leg weakness -patient needs repair and adjustment of his right leg brace that helps with his symptoms of instability and weakness and allows him to ambulate -will send rx to [place] [facility] 03/21/2018 Appointment: Glory Dalton WPtel: [facility]7 [phone] (15 min) Moderate 03/21/2018 Patient Education: Patient [...] acutely worsen. 02/08/2018 Appointment: Antoinette Arndt WPtel: [phone] [facility] (30 min) Complex 02/08/2018 Patient Education: Patient [...] Completed 12/27/2017 [phone] (15 min) Moderate 12/08/2017 Visit Plan: Hypertension [...] injection. 12/06/2017 App[facility]ment[phone] (15 min) Moderate 12/06/2017 Patient Education: Patient [...] weight check. 09/07/2017 Appointment: Quyen Long WPtel: [facility] (15 min) Moderate 09/07/2017 Patient Education: Patient [...] lower leg. 06/07/2017 Appointment: Quyen Long WPtel: [facility]5 [facility] (15 min) Moderate 06/07/2017 Patient Education: Patient [...] compression recommended. 05/19/2017 Appointment: Quyen Long WPtel: [facility]5 [facility] (15 min) Moderate 05/19/2017 Patient Education: Patient Medication Summary Completed 05/19/2017 Patient Education: Obesity Completed 05/19/2017 Patient Education: Hypertension Completed 05/19/2017 Visit Plan: Rash-left ycjs-bfhfogoq-gilupuegiq patient to continue using ketoconazole plus betamethasone equal parts and increase to TID-leave foot open to air as much as possible-follow up in 2 weeks, sooner if needed. 05/09/2017 Appointment: Glory Dalton WPtel: [phone] (30 min) Complex 05/09/2017 Patient Education: Patient Medication Summary Completed 05/09/2017 Patient Education: Obesity Completed 05/09/2017 Visit Plan: Rash-left foot-Dr Long in to evaluate rash-instructed patient to start using ketoconazole plus betamethasone equal parts TID -follow up in 2 weeks, sooner if needed. 04/25/2017 Appointment: Glory Dalton WPtel: [facility]8 [phone] (30 min) Complex 04/25/2017 Patient Education: Patient Medication Summary Completed 04/25/2017 Visit Plan: Cellulitis of left foot-no longer draining-no open areas-no excoriation-slightly red-okay to d/c all treatments-keep clean and monitor-call if redness does not resolve Rash-resolved 2017 Appointment: Glory Dalton WPtel: [facility]5 [phone] (30 min) Complex 2017 Patient Education: Patient Medication Summary Completed 2017 Patient Education: Obesity Completed 2017 Visit Plan: Cellulitis-left foot-MSSA nxagaeis-vztcnddie-teeee air in the evening-continue bactroban ointment twice daily-stop using alcohol on foot-no papertowels or abrasives to foot Oakr-lvso-wq for betamethasone provided and instructed on use 03/29/2017 Appointment: Glory Dalton WPtel: [facility]5 [phone] (30 min) Complex 03/29/2017 Patient Education: Patient Medication Summary Completed 03/29/2017 Patient Education: Obesity Completed 03/29/2017 Appointment: Glory Dalton WPtel: [facility] [id number] (30 min) Complex 03/22/2017 Visit Plan: Cellulitis [...] warmth, discharge. 03/17/2017 Appointment: Antoinette Arndt WPtel: [facility] [id number] ([place] min) Complex 03/17/2017 Patient Education: Patient [...] the break. 01/18/2017 Appointment: Quyen Long [facility]Ptel[facility] ([facility] min) Moderate 01/18/2017 Patient Education: Patient [...] and weakness. 10/19/2016 Appointment: [phone] (15 min) Moderate 10/19/2016 Patient Education: Patient Medication Summary Completed 10/19/2016 Patient Education: Obesity Completed 10/19/2016 Visit Plan: Left shoulder pain-hospital f/u recent shoulder surgery with Dr Wilson-doing well-sees Dr Wilson this afternoon for suture removal-pain improved Peyc-vbbo-fvxwrni fungal infection-will treat with ket oconazole -follow up in 2 weeks 08/17/2016 Appointment: Glory Dalton WPtel: [phone] [phone] (30 min) Complex 08/17/2016 Patient Education: Patient [...] when ambulating. 07/20/2016 Appointment: [phone] [place] (15 min) Moderate 07/20/2016 Patient Education: Patient [...] for strengthening. 04/19/2016 Appointment: Quyen Long [facility]el[id number] [place] (15 min) Moderate 04/19/2016 Patient Education: Patient [...] to next follow up appointment. 01/19/2016 Appointment: [facility] Long [phone] [place] (15 min) Moderate 01/19/2016 Patient Education: Patient Medication Summary Completed 01/19/2016 Patient Education: Obesity Completed 01/19/2016 Patient Education: Hypertension Completed 01/19/2016 Referral: Dr Mccauley Referral Completed 11/11/2015 Care Plan: Referral Order SNOMED-CT : [id number] Pending 11/03/2015 Visit Plan: Hypertension - well [...] injection 10/16/2015 Appointment: Quyen Long WPtel[facility] [phone] [facility] [place] (15 min) Moderate 10/16/2015 Patient Education: Patient [...] recommended pt to increase activity at the [facility]. 07/17/2015 Patient Education: Patient Medication Summary [...] center - 02/19/2015 Appointment: Quyen Long WPtel: [address] [place] [id number] [place] (15 min) Moderate 02/19/2015 Patient Education: Patient [...] ear drops. 11/20/2014 Appointment: [facility] Long [phone] Follow up 11/20/2014 Patient Education: Patient Medication [...] doctor ESME. 11/05/2014 Appointment: [id number] (15 min) Moderate 11/05/2014 Patient Education: Patient [...] to participate in activities outside of the nursing home. He has a family that would like [...] and foot. 09/19/2014 Appointment: [id number] Follow up 09/19/2014 Patient Education: Patient Medication [...] deficiency - recommended repeat of vitamin d [id number] weekly x 12 weeks and increase vitamin d to 5000 units daily. 07/24/2014 Appointment: [facility] Long [phone] [place] Follow up 07/24/2014 Patient Education: Patient [...] B12 level 05/23/2014 Appointment: Glory Dalton WPtel: [address] [place], [place] [phone] Follow up 05/23/2014 Patient Education: Patient Medication Summary Completed 05/23/2014 Patient Education: .Cervicalgia Neck Pain Completed 05/23/2014 Appointment: Quyen Long WPtel: [address] [place], [place] [phone] [place] Follow up 05/22/2014 Visit Plan: Edema [...] at home. 04/18/2014 Appointment: Quyen Long WPtel: [address] [place], [place] [phone] [place] Follow up 04/18/2014 Patient Education: Patient Medication Summary Completed 04/18/2014 Patient Education: Hypertension Completed 04/18/2014 Appointment: Quyen Long WPtel: [address] [place], [place] [phone] [place] Follow up 02/27/2014 Visit Plan: Insomnia - Pt has been advised to increase the light in the house during the day, and start dimming the lights during the evening hours. Pt has been advised to cut out caffeine after 5pm. Daytime napping worsens night time insomnia. START TRAZODONE AND MONITOR SYMPTOMS. Vitamin D iuwulxfysl-fmabzjon-ztlinspc vitamin D 50,000 units weekly for 12 additional weeks. Hypoxemia-continue night time oxygen 02/21/2014 Appointment: Sha Glory WPtel: [address] [place], [place] [phone] Follow up 02/21/2014 Patient Education: Patient Medication [...] his sister verbalize understanding of plan. 12/25/2013 Visit Plan: Tinea pedis-discussed natural expected [...] wheeled walker with a seat provided. 12/25/2013 Appointment: hasnt received medicaid card yet [...] on mobic. 11/28/2013 Appointment: [id number] Follow up 11/28/2013 Patient Education: Patient Medication [...] study. 11/14/2013 Appointment: Quyen Long [id number] New Patient 11/14/2013 Patient Education: Patient Medication Summary Completed 11/14/2013 Referral: Dr Mccauley Referral Appointment Requested Instructions Comment . Hypertension - well controlled - continue with current medications, continue with no added salt diet. Pt has been encouraged to exercise daily. The pt has been advised to call the office if there are any acute concerns about change in blood pressure readings at home. 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 . Cellulitis - left foot - The patient was instructed in appropriate wound care. The patient was instructed to use the antibiotic ointment as per RX. The patient is to call for any change in symptoms, increase in size of the lesion, increase in pain, worsening redness, warmth, discharge. . Hypertension - well controlled - continue [...] deficiency - recommended repeat of vitamin d [id number] weekly x 12 weeks and increase vitamin d to 5000 units daily. prevnar 13 if hasn't had one . [...] her [employer] paperwork for health care surrogate. KENALOG INJECTION TODAY PREDNISONE -START TOMORROW BETAMETHASONE CREAM CULTURE LEFT FOOT -START ABX IF BACTERIAL GROWTH . Rash-culture today in the office -kenalog injection for acute symptoms -start prednisone tomorrow- treat with abx if indicated on culture- follow up in 1 week, sooner if needed Vitamin b12 Vitamin D Hgb A1C cervical [...] vitamin D Vitamin B12 deficiency-check B12 level . Hypertension - well controlled - continue [...] appt with addie for shoulder injection. . Rash-resolved -continue topical betamethasone cream as ordered- call if rash returns . Post polio syndrome - back-up brace [...] in one month for weight check. . Tinea pedis-discussed natural expected course of [...] his sister verbalize understanding of plan. . Tinea pedis-discussed natural expected course of [...] wheeled walker with a seat provided. . Hypertension - well controlled - continue [...] prior to next follow up appointment. . Hypertension - uncontrolled - the patient's [...] with therapy at the [facility] center - KETOCONAZOLE mixed with BETAMETHASONE THREE TIMES DAILY -MIX EQUAL PARTS . Rash-left foot-Dr Long in to evaluate rash-instructed patient to start using ketoconazole plus betamethasone equal parts TID -follow up in 2 weeks, sooner if needed. . Cellulitis - left foot - The patient was instructed in appropriate wound care. The patient was instructed to use the antibiotic ointment as per RX. The patient is to call for any change in symptoms, increase in size of the lesion, increase in pain, worsening redness, warmth, discharge. . pt down one pound . Post-polio syndrome - with muscle weakness/wasting [...] to Dr. Thomas. Edema - compression recommended. culture rash ketoconazole to rash on foot twice daily cover with 4x4 and gauze wrap to absorb moisture-change prn moisture . Rash-left foot-will culture to r/o bacteria-suspect fungus-will treat with anti fungal-keep foot clean/dry-changes dressings as directed-follow up in 2 weeks if symptoms not resolved-patient and sister verbalized understanding of plan. . Post polio syndrome -right leg weakness -patient needs repair and adjustment of his right leg brace that helps with his symptoms of instability and weakness and allows him to ambulate -will send rx to [facility] . Hypertension - well controlled - continue with current medications, continue with no added salt diet. Pt has been encouraged to exercise daily. The pt has been advised to call the office if there are any acute concerns about change in blood pressure readings at home. Edema - continue with lasix, compression. Rash - continue with antibiotics and dressings to lower leg. . Rash-left btiu-wrhfywtk-dyihroeuof patient to continue using ketoconazole plus betamethasone equal parts and increase to TID-leave foot open to air as much as possible-follow up in 2 weeks, sooner if needed. . Tinea barbae -rx for ketoconazole written [...] possibly getting another injection into his shoulder. CONTINUE VITAMIN D FOR 12 WEEKS . Insomnia - Pt has been advised to increase the light in the house during the day, and start dimming the lights during the evening hours. Pt has been advised to cut out caffeine after 5pm. Daytime napping worsens night time insomnia. START TRAZODONE AND MONITOR SYMPTOMS. Vitamin D hmvicnemdb-zsqzrjyc-yqfvfqeh vitamin D 50,000 units weekly for 12 [...] daily. Abnormal glucose - check hgba1c today. Your left foot needs air in the evenings for at least a couple of hours -continue dressing changes BID with bactroban ointment Betamethasone to arm/chest twice daily for itching until resolved Continue ketoconazole to face as directed Follow up in 10 days . Cellulitis-left foot-MSSA kczaqwaf-jluioilcm-ezoxe air in the evening-continue bactroban ointment twice daily-stop using alcohol on foot-no papertowels or abrasives to foot Eype-ahtp-hv for betamethasone provided and instructed on use [...] Wilson this afternoon for suture removal-pain improved Wdim-zzbi-pskszrz fungal infection-will treat with ketoconazole -follow up in 2 weeks . Edema - pt has been advised [...] to participate in activities outside of the nursing home. He has a family that would like [...]
--- OUTSIDE RECORDS SUMMARY | 2018-11-10 14:51 | XMS REPORT | CCD ---
Author Author Quyen Long Organization Quyen Long MD, [facility] Address [address] [place] [address] Phone Care Team Providers Care Welcome Hostess Name Role Phone PP Unavailable CCM Unavailable Summary Purpose Interface Exchange Insurance Providers Payer name Policy type / Coverage type Covered constitution party ID Effective Begin Date Effective End Date WPS Medicare Part B Medicare Part B [id number] 2017 Unknown [facility] Medicare Part B [id number] 2017 Unknown Family history Grandmother Diagnosis Age [...] Description Effective Dates Tobacco history SNOMED CT: 6747792 Former smoker 1.5 pack daily x 45 years 12/27/2017 Marital status Unknown 10/19/2016 Living arrangements Unknown Assisted Living [facility] 04/19/2016 Number of children Unknown 1 son - lives in [place] 11/14/2013 Employment Unknown 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 11/14/[address]: 161432674 Never drinks alcohol 11/14/2013 Has the patient [...] Start Date Stop Date Status Fill Instructions losartan 50 mg tablet RxNorm: 108547 TAKE ONE TABLET BY MOUTH DAILY (STARTING 09-09-2017) 11/01/2018 04/29/2019 Active ranitidine 150 mg tablet RxNorm: 398989 TAKE ONE TABLET BY MOUTH , START August 10/06/2018 02/02/2019 Active gabapentin 300 mg capsule RxNorm: 786406 TAKE ONE CAPSULE BY MOUTH TWICE A DAY 09/18/2018 03/16/2019 Active Kenalog 40 mg/mL suspension for injection RxNorm: 1333598 Milliliter(s) Inj 08/28/2018 08/28/2018 Inactive ketoconazole 2 % topical cream RxNorm: 923974 1 Application TOP BID to left ear and left arm, right arm, left - a total of 1 gram bid 08/21/2018 12/18/2018 Active ranitidine 150 mg tablet RxNorm: 936549 1 Tablet(s) PO daily 08/21/2018 10/05/2018 Inactive ketoconazole 2 % shampoo RxNorm: 557074 APPLY TO AFFECTED AREA(S) TWICE WEEKLY UNTIL RESOLVED 08/14/2018 09/10/2018 Inactive cetirizine 10 mg tablet RxNorm: 1611706 TAKE ONE TABLET BY MOUTH EVERY NIGHT AT BEDTIME 08/07/2018 03/04/2019 Active trazodone 50 mg tablet RxNorm: 701296 TAKE ONE TABLET BY MOUTH AT BEDTIME 07/18/2018 11/14/2018 Active ketoconazole 2 % shampoo RxNorm: 145176 1 TOP BIW 06/27/2018 08/13/2018 Inactive Vitamin B-12 1,000 mcg/mL injection solution RxNorm: 151389 INJECT 1ML MONTHLY 06/19/2018 11/15/2018 Active Request already responded to by other means (e.g. phone or fax) Vitamin B-12 1,000 mcg/mL injection solution RxNorm: 025216 Milliliter(s) INJECT 1ML MONTHLY 06/15/2018 06/18/2018 Inactive Zithromax Z-Brian 250 mg tablet RxNorm: 738288 1 Tablet(s) PO UD 06/14/2018 08/20/2018 Inactive robin as directed x1 tamsulosin 0.4 mg capsule RxNorm: 276150 TAKE ONE CAPSULE BY MOUTH EVERY EVENING 06/12/2018 01/07/2019 Active gabapentin 300 mg capsule RxNorm: 238951 TAKE ONE CAPSULE BY MOUTH TWICE A DAY 05/31/2018 09/17/2018 Inactive losartan 50 mg tablet RxNorm: 598547 TAKE ONE TABLET BY MOUTH DAILY 05/01/2018 09/27/2018 Inactive Toprol XL 50 mg tablet,extended release RxNorm: 568586 1 Tablet(s) PO daily 04/20/2018 No Stop Date Active Vitamin D3 5,000 unit tablet RxNorm: 893440 TAKE ONE TABLET BY MOUTH DAILY 04/05/2018 02/28/2019 Active trazodone 50 mg tablet RxNorm: 691853 TAKE ONE TABLET BY MOUTH AT BEDTIME 02/27/2018 07/17/2018 Inactive hydrochlorothiazide 25 mg tablet RxNorm: 275172 TAKE ONE TABLET BY MOUTH DAILY 02/13/2018 11/09/2018 Active ranitidine 150 mg tablet RxNorm: 535591 1 Tablet(s) PO BID 02/13/2018 08/20/2018 Inactive albuterol sulfate 2.5 mg/3 mL (0.083 %) solution for nebulization RxNorm: 645013 3 Milliliter(s) INH UD 02/08/2018 No Stop Date Active please deliver all of his prescriptions thank you cefdinir 300 mg capsule RxNorm: 374559 1 Capsule(s) PO BID 02/08/2018 02/17/2018 Inactive prednisone 20 mg tablet RxNorm: 315098 2 Tablet(s) PO daily 02/08/2018 02/12/2018 Inactive fluticasone 50 mcg/actuation nasal spray,suspension RxNorm: 9087107 1 [place] NASAL BID 02/07/2018 06/06/2018 Inactive fluticasone 50 mcg/actuation nasal spray,suspension RxNorm: 6101255 1 [place] NASAL BID 02/07/2018 02/06/2018 Inactive Zithromax Z-Brian 250 mg tablet RxNorm: 900903 1 Tablet(s) PO UD 02/07/2018 03/14/2018 Inactive zpack as directed tamsulosin 0.4 mg capsule RxNorm: 116729 TAKE ONE CAPSULE BY MOUTH EVERY EVENING 01/13/2018 06/11/2018 Inactive Vitamin D3 5,000 unit tablet RxNorm: 592442 TAKE ONE TABLET BY MOUTH DAILY 01/02/2018 04/04/2018 Inactive cetirizine 10 mg tablet RxNorm: 9874994 TAKE ONE TABLET BY MOUTH EVERY NIGHT AT BEDTIME 01/02/2018 04/01/2018 Inactive cetirizine 10 mg tablet RxNorm: 9881882 1 Tablet(s) PO QHS 12/26/2017 01/01/2018 Inactive cetirizine 10 mg tablet RxNorm: 3655057 1 Tablet(s) PO QHS 12/26/2017 12/25/2017 Inactive losartan 50 mg tablet RxNorm: 151792 TAKE ONE TABLET BY MOUTH DAILY (STARTING 09-09-2017) 09/29/2017 03/27/2018 Inactive Request already responded to by other means (e.g. phone or fax) losartan 50 mg tablet RxNorm: 285047 1 Tablet(s) PO daily 09/27/2017 09/26/2017 Inactive losartan 50 mg tablet RxNorm: 645853 1 Tablet(s) PO daily 09/27/2017 09/28/2017 Inactive Bactrim DS 800 mg-160 mg tablet RxNorm: 729854 1 Tablet(s) PO BID 09/13/2017 09/19/2017 Inactive Kenalog 40 mg/mL suspension for injection RxNorm: 7634791 1 Milliliter(s) Inj 09/07/2017 09/07/2017 Inactive trazodone 50 mg tablet RxNorm: 679477 TAKE ONE TABLET BY MOUTH AT BEDTIME 08/16/2017 02/11/2018 Inactive gabapentin 300 mg capsule RxNorm: 262556 1 Capsule(s) PO BID 08/03/2017 01/29/2018 Inactive Vitamin D3 5,000 unit tablet RxNorm: 422654 TAKE ONE TABLET BY MOUTH DAILY 08/01/2017 12/28/2017 Inactive ketoconazole 2 % topical cream RxNorm: 359627 APPLY TO AFFECTED AREA(S) TWO TIMES A DAY 05/31/2017 06/29/2017 Inactive hydrochlorothiazide 25 mg tablet RxNorm: 515719 TAKE ONE TABLET BY MOUTH DAILY 05/16/2017 02/09/2018 Inactive lisinopril 20 mg tablet RxNorm: 094730 TAKE ONE TABLET BY MOUTH DAILY 05/16/2017 09/06/2017 Inactive ketoconazole 2 % topical cream RxNorm: 999966 1 Application TOP BID 03/29/2017 04/11/2017 Inactive apply to faice-deliver to [facility] please betamethasone dipropionate 0.05 % topical ointment RxNorm: 415169 1 Application TOP BID 03/29/2017 04/11/2017 Inactive apply to arm/chests for itching gabapentin 300 mg capsule RxNorm: 802404 1 Capsule(s) PO BID 03/29/2017 08/02/2017 Inactive trazodone 50 mg tablet RxNorm: 390203 TAKE ONE TABLET BY MOUTH AT BEDTIME 03/28/2017 08/15/2017 Inactive Vesicare 10 mg tablet RxNorm: 239062 TAKE ONE TABLET BY MOUTH EVERY NIGHT AT BEDTIME 03/21/2017 12/26/2017 Inactive Vesicare 10 mg tablet RxNorm: 256073 TAKE ONE TABLET BY MOUTH EVERY NIGHT AT BEDTIME 03/21/2017 06/06/2017 Inactive doxycycline hyclate 100 mg capsule RxNorm: 8442776 1 Capsule(s) PO BID 03/18/2017 03/27/2017 Inactive mupirocin 2 % topical ointment RxNorm: 634068 1 Application TOP BID 03/17/2017 08/27/2018 Inactive doxycycline hyclate 100 mg tablet RxNorm: 472106 1 Tablet(s) PO BID 03/09/2017 03/15/2017 Inactive Take probiotic BID while on ABT doxycycline hyclate 100 mg tablet RxNorm: 190668 1 Tablet(s) PO BID 03/09/2017 03/08/2017 Inactive Take probiotic BID while on ABT meloxicam 15 mg tablet RxNorm: 144989 TAKE ONE TABLET BY MOUTH DAILY 02/10/2017 12/06/2017 Inactive Vitamin D3 5,000 unit tablet RxNorm: 439468 TAKE ONE TABLET BY MOUTH DAILY 02/08/2017 07/31/2017 Inactive Vitamin B-12 1,000 mcg/mL injection solution RxNorm: 503368 INJECT 1ML MONTHLY 01/24/2017 07/22/2017 Inactive lisinopril 20 mg tablet RxNorm: 165220 TAKE ONE TABLET BY MOUTH DAILY 12/13/2016 04/11/2017 Inactive trazodone 50 mg tablet RxNorm: 478713 TAKE ONE TABLET BY MOUTH AT BEDTIME 09/24/2016 03/22/2017 Inactive Vitamin D3 5,000 unit tablet RxNorm: 346770 TAKE ONE TABLET BY MOUTH DAILY 09/20/2016 02/07/2017 Inactive lisinopril 20 mg tablet RxNorm: 956904 TAKE ONE TABLET BY MOUTH DAILY 09/13/2016 12/12/2016 Inactive ketoconazole 2 % topical cream RxNorm: 553019 1 Application TOP BID 08/17/2016 08/30/2016 Inactive deliver to [facility] please Pepcid 20 mg tablet RxNorm: 791822 TAKE ONE TABLET BY MOUTH TWICE A DAY 07/12/2016 12/26/2017 Inactive omega-3 acid ethyl esters 1 gram capsule RxNorm: 835245 3 Capsule(s) PO daily 06/18/2016 12/14/2016 Inactive omega-3 acid ethyl esters 1 gram capsule RxNorm: 014930 3 Capsule(s) PO daily 06/18/2016 06/17/2016 Inactive trazodone 50 mg tablet RxNorm: 243623 TAKE ONE TABLET BY MOUTH AT BEDTIME 06/08/2016 08/06/2016 Inactive tamsulosin 0.4 mg capsule RxNorm: 186546 Capsule(s) TAKE ONE CAPSULE BY MOUTH EVERY EVENING 06/04/2016 12/30/2016 Inactive hydrochlorothiazide 25 mg tablet RxNorm: 901602 TAKE ONE TABLET BY MOUTH DAILY 05/10/2016 05/09/2016 Inactive hydrochlorothiazide 25 mg tablet RxNorm: 154613 TAKE ONE TABLET BY MOUTH DAILY 05/10/2016 02/12/2018 Inactive Pepcid 20 mg tablet RxNorm: 905547 1 Tablet(s) PO BID 03/18/2016 03/17/2016 Inactive Pepcid 20 mg tablet RxNorm: 616797 1 Tablet(s) PO BID 03/18/2016 07/11/2016 Inactive lisinopril 20 mg tablet RxNorm: 507220 TAKE ONE TABLET BY MOUTH DAILY 03/18/2016 08/14/2016 Inactive Vitamin D3 5,000 unit tablet RxNorm: 304135 Tablet(s) TAKE ONE TABLET BY MOUTH DAILY 03/18/2016 09/13/2016 Inactive trazodone 50 mg tablet RxNorm: 397475 TAKE ONE TABLET BY MOUTH AT BEDTIME 03/15/2016 06/07/2016 Inactive Vesicare 10 mg tablet RxNorm: 810092 1 Tablet(s) PO QHS 03/15/2016 02/07/2017 Inactive meloxicam 15 mg tablet RxNorm: 950445 TAKE ONE TABLET BY MOUTH DAILY 03/01/2016 01/24/2017 Inactive Bactrim DS 800 mg-160 mg tablet RxNorm: 562514 1 Tablet(s) PO BID 02/10/2016 02/09/2016 Inactive Bactrim DS 800 mg-160 mg tablet RxNorm: 084213 1 Tablet(s) PO BID 02/10/2016 02/16/2016 Inactive Cipro 500 mg tablet RxNorm: 070225 1 Tablet(s) PO BID 02/06/2016 02/09/2016 Inactive Cipro 500 mg tablet RxNorm: 818441 1 Tablet(s) PO BID 02/06/2016 02/05/2016 Inactive Pennsaid 20 mg/gram/actuation (2 %) topical soln in metered- dose pump RxNorm: 3356056 2 pumps TOP BID 01/19/2016 04/19/2016 Inactive tamsulosin 0.4 mg capsule RxNorm: 951741 TAKE ONE CAPSULE BY MOUTH EVERY EVENING 01/12/2016 06/03/2016 Inactive cyanocobalamin (vit B-12) 1,000 mcg/mL injection solution RxNorm: 700515 INJECT 1 ML INTRAMUSCULARLY MONTHLY 01/01/2016 10/26/2016 Inactive Request already responded to by other means (e.g. phone or fax) Vitamin B-12 1,000 mcg/mL injection solution RxNorm: 959722 1 Milliliter(s) Inj monthly 12/24/2015 04/19/2016 Inactive please give syringes for injections Vitamin D3 5,000 unit tablet RxNorm: 008711 TAKE ONE TABLET BY MOUTH DAILY 12/08/2015 03/06/2016 Inactive pantoprazole 40 mg tablet,delayed release RxNorm: 166481 TAKE ONE TABLET BY MOUTH DAILY 12/08/2015 03/17/2016 Inactive trazodone 50 mg tablet RxNorm: 551466 TAKE ONE TABLET BY MOUTH AT BEDTIME 11/10/2015 03/08/2016 Inactive lisinopril 20 mg tablet RxNorm: 143856 TAKE ONE TABLET BY MOUTH DAILY 09/08/2015 03/05/2016 Inactive Vitamin D3 5,000 unit tablet RxNorm: 370225 1 Tablet(s) PO daily 08/12/2015 12/07/2015 Inactive pantoprazole 40 mg tablet,delayed release RxNorm: 698090 1 Tablet(s) PO daily 08/12/2015 12/07/2015 Inactive tamsulosin 0.4 mg capsule RxNorm: 296496 TAKE ONE CAPSULE BY MOUTH EVERY EVENING 07/21/2015 12/17/2015 Inactive trazodone 50 mg tablet RxNorm: 921280 TAKE ONE TABLET BY MOUTH AT BEDTIME 05/09/2015 10/05/2015 Inactive hydrochlorothiazide 25 mg tablet RxNorm: 064929 1 Tablet(s) PO QA 04/30/2015 04/29/2015 Inactive hydrochlorothiazide 25 mg tablet RxNorm: 492371 TAKE ONE TABLET BY MOUTH DAILY 04/30/2015 02/12/2018 Inactive pantoprazole 40 mg tablet,delayed release RxNorm: 817979 1 Tablet(s) PO daily 04/16/2015 08/11/2015 Inactive meloxicam 15 mg tablet RxNorm: 534397 TAKE ONE TABLET BY MOUTH DAILY 03/03/2015 02/25/2016 Inactive lisinopril 20 mg tablet RxNorm: 332324 1 Tablet(s) PO daily 02/19/2015 09/07/2015 Inactive tamsulosin 0.4 mg capsule RxNorm: 617762 TAKE ONE CAPSULE BY MOUTH EVERY EVENING 01/20/2015 07/18/2015 Inactive cyanocobalamin (vit B-12) 1,000 mcg/mL injection solution RxNorm: 943952 Milliliter(s) INJECT 1ML INTRAMUSCULARLY MONTHLY 12/12/2014 12/22/2014 Inactive trazodone 50 mg tablet RxNorm: 367307 TAKE ONE TABLET BY MOUTH AT BEDTIME 11/14/2014 05/08/2015 Inactive erythromycin 5 mg/gram (0.5 %) eye ointment RxNorm: 395584 1/2 inch OPH QID 11/05/2014 11/14/2014 Inactive acyclovir 800 mg tablet RxNorm: 649096 1 Tablet(s) PO TID 11/05/2014 11/18/2014 Inactive Zofran 4 mg tablet RxNorm: 782999 1 Tablet(s) PO Q4H as needed nausea 11/05/2014 01/03/2015 Inactive Duragesic 12 mcg/hr transdermal patch RxNorm: 915658 1 Patch TD Q72H 11/05/2014 02/04/2015 Inactive Imitrex 100 mg tablet RxNorm: 064949 1 Tablet(s) PO q 12 hours 11/04/2014 04/15/2015 Inactive naproxen 500 mg tablet RxNorm: 732030 1 Tablet(s) PO BID 10/30/2014 11/01/2014 Inactive meloxicam 15 mg tablet RxNorm: 951589 TAKE ONE TABLET BY MOUTH DAILY 10/04/2014 03/02/2015 Inactive Vesicare 5 mg tablet RxNorm: 146282 TAKE ONE TABLET BY MOUTH AT BEDTIME 09/16/2014 07/16/2015 Inactive Vitamin D2 50,000 unit capsule RxNorm: 892371 1 Capsule(s) PO QW 09/06/2014 07/16/2015 Inactive once weekly x 12 weeks tamsulosin ER 0.4 mg capsule,extended release 24 hr RxNorm: 547345 TAKE ONE CAPSULE BY MOUTH EVERY EVENING 06/24/2014 12/20/2014 Inactive tamsulosin ER 0.4 mg capsule,extended release 24 hr RxNorm: 785191 1 Capsule(s) PO QPM 06/24/2014 01/19/2015 Inactive Vitamin D2 50,000 unit capsule RxNorm: 463671 1 Capsule(s) PO QW 05/27/2014 09/05/2014 Inactive once weekly x 12 weeks Vesicare 5 mg tablet RxNorm: 309491 1 Tablet(s) PO QHS 05/23/2014 05/22/2014 Inactive Vesicare 5 mg tablet RxNorm: 133232 1 Tablet(s) PO QHS 05/23/2014 09/15/2014 Inactive trazodone 50 mg tablet RxNorm: 577072 TAKE ONE TABLET BY MOUTH AT BEDTIME 05/13/2014 11/08/2014 Inactive trazodone 50 mg tablet RxNorm: 336773 TAKE ONE TABLET BY MOUTH AT BEDTIME 05/13/2014 11/08/2014 Inactive hydrochlorothiazide 25 mg tablet RxNorm: 248538 1 Tablet(s) PO QAM 04/18/2014 01/12/2015 Inactive Vitamin D2 50,000 unit capsule RxNorm: 457493 TAKE ONE CAPSULE BY MOUTH ONCE WEEKLY FOR 12 WEEKS 04/09/2014 05/14/2014 Inactive trazodone 50 mg tablet RxNorm: 956734 1 Tablet(s) PO QHS 02/22/2014 05/12/2014 Inactive trazodone 50 mg tablet RxNorm: 865878 1 Tablet(s) PO QHS 02/22/2014 02/21/2014 Inactive Vitamin D2 50,000 unit capsule RxNorm: 174149 TAKE ONE CAPSULE BY MOUTH ONCE WEEKLY FOR 12 WEEKS 02/07/2014 03/06/2014 Inactive meloxicam 15 mg tablet RxNorm: 601741 TAKE ONE TABLET BY MOUTH ONCE A DAY 02/07/2014 08/05/2014 Inactive meloxicam 15 mg tablet RxNorm: 452856 TAKE ONE TABLET BY MOUTH ONCE A DAY 02/07/2014 2014 Inactive clotrimazole 1 % topical cream RxNorm: 799024 1 Application TOP BID 12/25/2013 07/16/2015 Inactive Diflucan 150 mg tablet RxNorm: 571831 1 Tablet(s) PO daily 12/25/2013 12/31/2013 Inactive tamsulosin ER 0.4 mg capsule,extended release 24 hr RxNorm: 747140 1 Capsule(s) PO QPM 11/28/2013 06/23/2014 Inactive cyanocobalamin (vit B-12) 1,000 mcg/mL injection solution RxNorm: 881420 1 Milliliter(s) Inj 11/28/2013 12/12/2014 Inactive Vitamin B-12 1,000 mcg/mL injection solution RxNorm: 098147 1 Milliliter(s) Inj monthly 11/21/2013 02/13/2015 Inactive please give syringes for injections Vitamin D2 50,000 unit capsule RxNorm: 663486 1 Capsule(s) PO QW x 12 weeks 11/21/2013 02/06/2014 Inactive [SAVINGS FOR UNINSURED PATIENTS -- to take addtional 2000 units daily Vitamin B-12 1,000 mcg/mL injection solution RxNorm: 659526 1 Milliliter(s) Inj monthly 11/21/2013 11/20/2013 Inactive meloxicam 15 mg tablet RxNorm: 240208 1 Tablet(s) PO daily 11/20/2013 11/19/2013 Inactive [SAVINGS FOR UNINSURED PATIENTS -- BIN:828617, PCN: [id number], Group: [id number], ID# [id number], Process claim through [employer], for questions: . THIS IS NOT INSURANCE.] meloxicam 15 mg tablet RxNorm: 796565 1 Tablet(s) PO daily 11/20/2013 02/06/2014 Inactive [SAVINGS FOR UNINSURED PATIENTS -- BIN:507033, PCN: [id number], Group: [id number], ID# [id number], Process claim through [employer], for questions: . THIS IS NOT INSURANCE.] meloxicam 15 mg tablet RxNorm: 340825 1 Tablet(s) PO daily 11/20/2013 11/19/2013 Inactive Voltaren 1 % topical gel RxNorm: 059206 4 Application TOP QID apply to back, affected joints four times daily 11/14/2013 11/20/2013 Inactive Iron (ferrous sulfate) 325 mg (65 mg iron) tablet RxNorm: 659820 1 Tablet(s) PO daily No Start Date Active trazodone 50 mg tablet RxNorm: 986384 1 Tablet(s) PO QHS No Start Date Active Vitamin D2 50,000 unit capsule RxNorm: 967236 1 Capsule(s) PO QW No Start Date 05/26/2014 Inactive once weekly x 12 weeks Zithromax Z-Brian 250 mg tablet RxNorm: 347211 1 Tablet(s) PO UD No Start Date 02/06/2018 Inactive Vitamin D2 50,000 unit capsule RxNorm: 365531 1 Capsule(s) PO QW No Start Date 11/20/2013 Inactive gabapentin 300 mg capsule RxNorm: 046135 1 Capsule(s) PO TID No Start Date 03/28/2017 Inactive Vesicare 10 mg tablet RxNorm: 483776 1 Tablet(s) PO QHS No Start Date 03/14/2016 Inactive Toprol XL 25 mg tablet,extended release RxNorm: 917036 1 Tablet(s) PO daily No Start Date 04/19/2018 Inactive Vitamin D3 5,000 unit tablet RxNorm: 707120 1 Tablet(s) PO daily No Start Date 08/11/2015 Inactive Celebrex 200 mg capsule RxNorm: 096443 1 Capsule(s) PO BID No Start Date 07/19/2016 Inactive Imitrex 50 mg tablet RxNorm: 269682 1 Tablet(s) PO now and may repeat up to four times in 24 hours No Start Date 11/03/2014 Inactive Zofran 4 mg tablet RxNorm: 136731 1 Tablet(s) PO Q8 as needed nausea and vomitting No Start Date 10/15/2015 Inactive ranitidine 150 mg tablet RxNorm: 901690 1 Tablet(s) PO BID No Start Date 02/12/2018 Inactive Phenergan 25 mg tablet RxNorm: 254898 1 Tablet(s) PO now No Start Date 04/15/2015 Inactive Tums oral RxNorm: 619725 oral No Start Date 10/15/2015 Inactive Medication Administered Medication Codes Instructions Start Date Status Kenalog 40 mg/mL suspension for injection RxNorm: 5995559 Milliliter 08/28/2018 No longer Active Kenalog 40 mg/mL suspension for injection RxNorm: 6853900 1Milliliter 09/07/2017 No longer Active cyanocobalamin (vit B-12) 1,000 mcg/mL injection solution RxNorm: 843499 1Milliliter 11/28/2013 No longer Active Immunizations Vaccine [...] recently went to an eye doctor in [place]. Reports that he did have hemorrhaging in his right eye which is getting better. headache 04/18/2014 Pt states he recently went to an eye doctor in [place] shortness of breath 02/21/2014 blisters 12/25/2013 insomnia 11/28/2013 back pain 11/14/2013 Results Observation Observation Code Item Item Code Result Date Vitamin D 25 Oh [id number] VITAMIN D, 25 HYDROXY 66.80 ng/mL 03/14/2018 [...] 28.5 pg 03/14/2018 Cbc With Differential Ord2 [place]% 7.6 % 03/14/2018 Cbc With Differential Ord2 [...] 1.28 K/ul 03/14/2018 Cbc With Differential Ord2 [place] ABS# 0.4 K/ul 03/14/2018 Cbc With Differential [...] Lipid Ord30 C/HDL 5.0 Ratio 06/27/2017 %Hba1C Jrb316 % HbA1c 16956- 6 6.2 % 06/27/2017 %Hba1C Ufq422 Gluc Ave 131 mg/dL 06/27/2017 Comp Metabolic Zgj586 NA 140 mEq/L 06/27/2017 Comp Metabolic Ulf579 K 4.2 mEq/L 06/27/2017 Comp Metabolic Ehs423 CL 100 mEq/L 06/27/2017 Comp Metabolic Onr135 CO2 32.0 mEq/L 06/27/2017 Comp Metabolic Lti888 ANION GAP 12 06/27/2017 Comp Metabolic Znq801 GLUCOSE 118 mg/dL 06/27/2017 Comp Metabolic Zkj903 Creat 1.0 mg/dL 06/27/2017 Comp Metabolic Cwj657 eGFR 82 ml/min/1.73m2 06/27/2017 Comp Metabolic Nvs447 BUN 26 mg/dL 06/27/2017 Comp Metabolic Dzq951 B/C Ratio 27.1 Ratio 06/27/2017 Comp Metabolic Djr887 CALCIUM 9.6 mg/dL 06/27/2017 Comp Metabolic Gwo562 ALK PHOS 46 U/L 06/27/2017 Comp Metabolic Qtl091 AST(SGOT) 23 U/L 06/27/2017 Comp Metabolic Gui945 ALT(SGPT) 31 U/L 06/27/2017 Comp Metabolic Itb738 BILI T 0.5 mg/dL 06/27/2017 Comp Metabolic Bse974 ALBUMIN 4.2 g/dL 06/27/2017 Comp Metabolic Tur379 TPRO 6.6 g/dL 06/27/2017 Comp Metabolic Hfj228 GLOB 2.4 g/dL 06/27/2017 Comp Metabolic Wbv994 A/G Ratio 1.7 Ratio 06/27/2017 Comp Metabolic Nid333 Osmo 285 mOsmo 06/27/2017 Cbc With Differential [...] 29.0 pg 10/20/2016 Cbc With Differential Ord2 [place]% 9.0 % 10/20/2016 Cbc With Differential Ord2 [...] 1.33 K/ul 10/20/2016 Cbc With Differential Ord2 [place] ABS# 0.4 K/ul 10/20/2016 Cbc With Differential Ord2 Eos ABS# 0.2 K/ul 10/20/2016 Cbc With Differential Ord2 Baso ABS# 0.0 K/ul 10/20/2016 Comp Metabolic Bez427 NA 143 mEq/L 10/20/2016 Comp Metabolic Cfc455 K 4.6 mEq/L 10/20/2016 Comp Metabolic Hdp763 CL 104 mEq/L 10/20/2016 Comp Metabolic Mih015 CO2 31.0 mEq/L 10/20/2016 Comp Metabolic Mvm280 ANION GAP 13 10/20/2016 Comp Metabolic Snu578 GLUCOSE 117 mg/dL 10/20/2016 Comp Metabolic Uky206 Creat 1.1 mg/dL 10/20/2016 Comp Metabolic Yva746 eGFR 74 ml/min/1.73m2 10/20/2016 Comp Metabolic Gyp866 BUN 27 mg/dL 10/20/2016 Comp Metabolic Uoq908 B/C Ratio 25.7 Ratio 10/20/2016 Comp Metabolic Yon933 CALCIUM 9.3 mg/dL 10/20/2016 Comp Metabolic Kzr750 ALK PHOS 47 U/L 10/20/2016 Comp Metabolic Ibi061 AST(SGOT) 18 U/L 10/20/2016 Comp Metabolic Ywl575 ALT(SGPT) 22 U/L 10/20/2016 Comp Metabolic Xwo094 BILI T 0.5 mg/dL 10/20/2016 Comp Metabolic Jcd846 ALBUMIN 3.9 g/dL 10/20/2016 Comp Metabolic Jif990 TPRO 6.5 g/dL 10/20/2016 Comp Metabolic Yeu169 GLOB 2.6 g/dL 10/20/2016 Comp Metabolic Xjx407 A/G Ratio 1.5 Ratio 10/20/2016 Comp Metabolic Rvt182 Osmo 291 mOsmo 10/20/2016 Tsh Ord6 hTSH II 1.56 uIU/mL 10/20/2016 Lipid Ord30 CHOL 153 mg/dL 10/20/2016 Lipid Ord30 HDL 34.0 mg/dl 10/20/2016 Lipid Ord30 TRIG 123 mg/dL 10/20/2016 Lipid Ord30 LDL 94 mg/dL 10/20/2016 Lipid Ord30 C/HDL 4.5 Ratio 10/20/2016 B12 Xkw505 B12 544.00 pg/ml 10/20/2016 Comp Metabolic Upa192 NA 138 mEq/L 05/13/2016 Comp Metabolic Pne703 K 4.2 mEq/L 05/13/2016 Comp Metabolic Fdx628 CL 102 mEq/L 05/13/2016 Comp Metabolic Wmy603 CO2 30.0 mEq/L 05/13/2016 Comp Metabolic Nhc155 ANION GAP 10 05/13/2016 Comp Metabolic Pfn678 GLUCOSE 113 mg/dL 05/13/2016 Comp Metabolic Wjj604 Creat 1.0 mg/dL 05/13/2016 Comp Metabolic Lqp837 eGFR 77 ml/min/1.73m2 05/13/2016 Comp Metabolic Fcu777 BUN 26 mg/dL 05/13/2016 Comp Metabolic Qcs394 B/C Ratio 25.5 Ratio 05/13/2016 Comp Metabolic Rpz817 CALCIUM 9.7 mg/dL 05/13/2016 Comp Metabolic Yxz664 ALK PHOS 51 U/L 05/13/2016 Comp Metabolic Tka309 AST(SGOT) 17 U/L 05/13/2016 Comp Metabolic Qrs395 ALT(SGPT) 20 U/L 05/13/2016 Comp Metabolic Bnh165 BILI T 0.6 mg/dL 05/13/2016 Comp Metabolic Yal702 ALBUMIN 4.0 g/dL 05/13/2016 Comp Metabolic Zxx794 TPRO 6.6 g/dL 05/13/2016 Comp Metabolic Gyi870 GLOB 2.6 g/dL 05/13/2016 Comp Metabolic Fvw525 A/G Ratio 1.6 Ratio 05/13/2016 Comp Metabolic Nqh759 Osmo 281 mOsmo 05/13/2016 Lipid Ord30 CHOL [...] 29.3 pg 02/11/2016 Cbc With Differential Ord2 [place]% 7.7 % 02/11/2016 Cbc With Differential Ord2 [...] 1.18 K/ul 02/11/2016 Cbc With Differential Ord2 [place] ABS# 0.4 K/ul 02/11/2016 Cbc With Differential Ord2 Eos ABS# 0.1 K/ul 02/11/2016 Cbc With Differential Ord2 Baso ABS# 0.0 K/ul 02/11/2016 Comp Metabolic Xzu979 NA 138 mEq/L 02/11/2016 Comp Metabolic Wzz876 K 4.0 mEq/L 02/11/2016 Comp Metabolic Org534 CL 97 mEq/L 02/11/2016 Comp Metabolic Jil346 CO2 32.0 mEq/L 02/11/2016 Comp Metabolic Lqi621 ANION GAP 13 02/11/2016 Comp Metabolic Drx177 GLUCOSE 117 mg/dL 02/11/2016 Comp Metabolic Nta150 Creat 1.0 mg/dL 02/11/2016 Comp Metabolic Oyo842 eGFR 81 ml/min/1.73m2 02/11/2016 Comp Metabolic Mim951 BUN 21 mg/dL 02/11/2016 Comp Metabolic Sso229 B/C Ratio 21.4 Ratio 02/11/2016 Comp Metabolic Xlo533 CALCIUM 9.2 mg/dL 02/11/2016 Comp Metabolic Gab361 ALK PHOS 48 U/L 02/11/2016 Comp Metabolic Fgj557 AST(SGOT) 18 U/L 02/11/2016 Comp Metabolic Emh567 ALT(SGPT) 22 U/L 02/11/2016 Comp Metabolic Sqz523 BILI T 0.5 mg/dL 02/11/2016 Comp Metabolic Tlp665 ALBUMIN 3.9 g/dL 02/11/2016 Comp Metabolic Nfu987 TPRO 6.3 g/dL 02/11/2016 Comp Metabolic Bkr998 GLOB 2.5 g/dL 02/11/2016 Comp Metabolic Acc678 A/G Ratio 1.6 Ratio 02/11/2016 Comp Metabolic Omn118 Osmo 280 mOsmo 02/11/2016 Lipid Ord30 CHOL 163 mg/dL 02/11/2016 Lipid Ord30 HDL 35.0 mg/dl 02/11/2016 Lipid Ord30 TRIG 200 mg/dL 02/11/2016 Lipid Ord30 LDL 88 mg/dL 02/11/2016 Lipid Ord30 C/HDL 4.7 Ratio 02/11/2016 %Hba1C Ovy419 % HbA1c 25194- 6 6.5 % 02/11/2016 %Hba1C Myt185 Gluc Ave 140 mg/dL 02/11/2016 Tsh Ord6 hTSH II 2.07 uIU/mL 02/11/2016 B12 Evy947 B12 563.00 pg/ml 02/11/2016 Culture Urine [id number] URINE CULTURE SEE NOTES 02/10/2016 Culture Urine [id number] Continued Results 02/10/2016 Urine Culture Ucult Complete [...] hours from collection if refrigerated) 11/04/2015 %Hba1C Kdf289 % HbA1c 03100- 6 6.4 % 04/16/2015 %Hba1C Zmb771 Gluc Ave 137 mg/dL 04/16/2015 Tsh Ord6 hTSH II 3.33 uIU/mL 02/07/2015 Comp Metabolic Eos645 NA 136 mEq/L 02/07/2015 Comp Metabolic Avy436 K 3.9 mEq/L 02/07/2015 Comp Metabolic Qjv932 CL 98 mEq/L 02/07/2015 Comp Metabolic Mxq257 CO2 31.0 mEq/L 02/07/2015 Comp Metabolic Xxo835 ANION GAP 11 02/07/2015 Comp Metabolic Ldd970 GLUCOSE 139 mg/dL 02/07/2015 Comp Metabolic Snr711 Creat 0.9 mg/dL 02/07/2015 Comp Metabolic Bmw422 eGFR 87 ml/min/1.73m2 02/07/2015 Comp Metabolic Mah967 BUN 20 mg/dL 02/07/2015 Comp Metabolic Hgf161 B/C Ratio 21.7 Ratio 02/07/2015 Comp Metabolic Yrb162 CALCIUM 9.7 mg/dL 02/07/2015 Comp Metabolic Imf133 ALK PHOS 55 U/L 02/07/2015 Comp Metabolic Zng389 AST(SGOT) 20 U/L 02/07/2015 Comp Metabolic Xpx368 ALT(SGPT) 27 U/L 02/07/2015 Comp Metabolic Pql373 BILI T 0.5 mg/dL 02/07/2015 Comp Metabolic Blp605 ALBUMIN 4.3 g/dL 02/07/2015 Comp Metabolic Xlg340 TPRO 6.9 g/dL 02/07/2015 Comp Metabolic Nkk331 GLOB 2.6 g/dL 02/07/2015 Comp Metabolic Uuj277 A/G Ratio 1.7 Ratio 02/07/2015 Comp Metabolic Enu451 Osmo 277 mOsmo 02/07/2015 Cbc With Differential [...] Ord2 RDW 14.8 % 02/07/2015 A1C HPLC [id number] A1C HPLC 58648-6 6.0 % 05/23/2014 VIT B 12 [id number] VIT B 12 479 PG/ML 05/23/2014 VIT D TOTL [id number] VIT D TOTL 29 NG/ML 05/23/2014 Review [...] lips 08/21/2018 None Full Exam - General 1995 Ears/Nose/Throat oral cavity/pharynx/larynx Overall: oral mucosa clear [...] palpation 09/07/2017 None Full Exam - General 1995 Musculoskeletal lower extremity Palpation - knee: crepitus [...] asymmetric 06/07/2017 None Full Exam - General 1995 Musculoskeletal gait and station Gait: abnormal stride [...] 4: G0439 12/27/2017 THER/PROPH/DIAG INJ SC/IM CPT-4: 53473 09/07/2017 TRIAMCINOLONE ACET INJ NOS CPT-4: J3301 09/07/2017 ROUTINE VENIPUNCTURE CPT- 4: 65029 05/23/2014 THER/PROPH/DIAG INJ SC/IM CPT-4: 09387 11/28/2013 VITAMIN B12 INJECTION CPT- 4: J3420 11/28/2013 Vital Signs Date Vital 09/04/2018 Blood Pressure 1: 143/80 Code: 8480-6 BMI: 36.8 Code: 98480-5 Heart Rate 1: 88 bpm Height: 6' SpO2: 93% Weight: 271 lbs 08/28/2018 Blood Pressure 1: 144/72 Code: 8480-6 BMI: 36.8 Code: 69097-1 Heart Rate 1: 65 bpm Height: 6' SpO2: 97% Weight: 271 lbs 08/21/2018 Blood Pressure 1: 110/66 Code: 8480-6 BMI: 36.6 Code: 79997-7 Heart Rate 1: 70 bpm Height: 6' SpO2: 93% Weight: 270 lbs 06/27/2018 Blood Pressure 1: 124/70 Code: 8480-6 BMI: 36.6 Code: 36623-9 Heart Rate 1: 64 bpm Height: 6' SpO2: 96% Weight: 270 lbs 04/20/2018 Blood Pressure 1: 126/74 Code: 8480-6 BMI: 36.6 Code: 39856-8 Heart Rate 1: 60 bpm Height: 6' SpO2: 94% Weight: 270 lbs 03/21/2018 Blood Pressure 1: 138/74 Code: 8480-6 BMI: 36.8 Code: 64455-7 Heart Rate 1: 81 bpm Height: 6' SpO2: 98% Weight: 271 lbs 02/08/2018 Blood Pressure 1: 132/74 Code: 8480-6 BMI: 37.0 Code: 95956-8 Heart Rate 1: 82 bpm Height: 6' SpO2: 97% Weight: 273 lbs 12/27/2017 Blood Pressure 1: 148/78 Code: 8480-6 BMI: 36.3 Code: 82629-9 Heart Rate 1: 78 bpm Height: 6' SpO2: 93% Waist Measure (cm): 117 cm Weight: 268 lbs 12/06/2017 Blood Pressure 1: 122/70 Code: 8480-6 BMI: 36.6 Code: 44133-0 Heart Rate 1: 76 bpm Height: 6' SpO2: 93% Weight: 270 lbs 11/01/2017 BMI: 36.9 Code: 21617-1 Height: 6' Weight: 272 lbs 09/07/2017 Blood Pressure 1: 140/78 Code: 8480-6 BMI: 35.8 Code: 38259-9 Heart Rate 1: 76 bpm Height: 6' SpO2: 98% Weight: 264 lbs 06/07/2017 Blood Pressure 1: 138/86 Code: 8480-6 BMI: 36.3 Code: 28376-0 Heart Rate 1: 66 bpm Height: 6' SpO2: 95% Weight: 268 lbs 05/19/2017 Blood Pressure 1: 152/84 Code: 8480-6 BMI: 36.8 Code: 73992-8 Heart Rate 1: 70 bpm Height: 6' SpO2: 93% Weight: 271 lbs 05/09/2017 Blood Pressure 1: 138/76 Code: 8480-6 BMI: 36.6 Code: 78973-5 Heart Rate 1: 79 bpm Height: 6' SpO2: 93% Weight: 270 lbs 04/25/2017 Blood Pressure 1: 150/80 Code: 8480-6 Heart Rate 1: 58 bpm Height: SpO2: 94% Weight: 2017 Blood Pressure 1: 138/80 Code: 8480-6 BMI: 36.5 Code: 31189-6 Heart Rate 1: 76 bpm Height: 6' SpO2: 96% Weight: 269 lbs 03/29/2017 Blood Pressure 1: 118/68 Code: 8480-6 BMI: 36.9 Code: 07769-8 Heart Rate 1: 61 bpm Height: 6' SpO2: 95% Weight: 272 lbs 03/17/2017 Blood Pressure 1: 140/78 Code: 8480-6 BMI: 36.8 Code: 95979-5 Heart Rate 1: 91 bpm Height: 6' SpO2: 93% Weight: 271 lbs 03/08/2017 Blood Pressure 1: 15284 Code: 8480-6 BMI: 36.8 Code: 75736-2 Heart Rate 1: 72 bpm Height: 6' SpO2: 92% Temperature: 36.6 (C) / 97.8 (F) Weight: 271 lbs 02/17/2017 Blood Pressure 1: 11064 Code: 8480-6 BMI: 36.5 Code: 74122-3 Heart Rate 1: 62 bpm Height: 6' SpO2: 96% Weight: 269 lbs 01/18/2017 Blood Pressure 1: 140/80 Code: 8480-6 BMI: 36.5 Code: 03019-3 Heart Rate 1: 62 bpm Height: 6' SpO2: 94% Weight: 269 lbs 10/19/2016 Blood Pressure 1: 120/80 Code: 8480-6 BMI: 35.9 Code: 65533-7 Heart Rate 1: 64 bpm Height: 6' SpO2: 97% Weight: 265 lbs 08/17/2016 Blood Pressure 1: 112 Code: 8480-6 BMI: 36.1 Code: 89305-2 Heart Rate 1: 65 bpm Height: 6' SpO2: 97% Weight: 266 lbs 07/20/2016 Blood Pressure 1: 12678 Code: 8480-6 BMI: 35.5 Code: 19592-7 Heart Rate 1: 60 bpm Height: 6' SpO2: 95% Weight: 262 lbs 04/19/2016 Blood Pressure 1: 132/78 Code: 8480-6 BMI: 35.1 Code: 32845-9 Heart Rate 1: 65 bpm Height: 6' SpO2: 98% Weight: 259 lbs 01/19/2016 Blood Pressure 1: 140/64 Code: 8480-6 BMI: 34.4 Code: 28347-4 Heart Rate 1: 61 bpm Height: 6' SpO2: 97% Weight: 254 lbs 10/16/2015 Blood Pressure 1: 108/66 Code: 8480-6 BMI: 35.3 Code: 98614-6 Heart Rate 1: 65 bpm Height: 6' SpO2: 96% Weight: 260 lbs 07/17/2015 Blood Pressure 1: 136/74 Code: 8480-6 BMI: 35.8 Code: 94761-4 Heart Rate 1: 59 bpm Height: 6' SpO2: 97% Weight: 263 lbs 13 07/03/2015 Weight: 265 lbs 04/16/2015 Blood Pressure 1: 130/82 Code: 8480-6 BMI: 36.1 Code: 25117-5 Heart Rate 1: 7694 bpm Height: 6' SpO2: 94% Weight: 266 lbs 02/19/2015 Blood Pressure 1: 160/90 Code: 8480-6 BMI: 35.8 Code: 13261-0 Heart Rate 1: 78 bpm Height: 6' SpO2: 94% Weight: 264 lbs 11/20/2014 Blood Pressure 1: 140/96 Code: 8480-6 BMI: 34.6 Code: 87645-8 Heart Rate 1: 92 bpm Height: 6' SpO2: 95% Weight: 255 lbs 11/05/2014 Blood Pressure 1: 132/70 Code: 8480-6 BMI: 34.6 Code: 28105-9 Heart Rate 1: 96 bpm Height: 6' SpO2: 98% Weight: 255 lbs 09/19/2014 Blood Pressure 1: 152/86 Code: 8480-6 BMI: 35.8 Code: 17610-5 Heart Rate 1: 82 bpm Height: 6' SpO2: 95% Weight: 264 lbs 07/24/2014 Blood Pressure 1: 142/82 Code: 8480-6 BMI: 34.7 Code: 53666-4 Heart Rate 1: 72 bpm Height: 6' Weight: 256 lbs 05/23/2014 Blood Pressure 1: 150/82 Code: 8480-6 BMI: 33.4 Code: 76173-1 Heart Rate 1: 68 bpm Height: 6' Weight: 246 lbs 04/18/2014 Blood Pressure 1: 132/84 Code: 8480-6 BMI: 33.2 Code: 11012-1 Heart Rate 1: 80 bpm Height: 6' Weight: 245 lbs 02/21/2014 Blood Pressure 1: 138/82 Code: 8480-6 BMI: 32.4 Code: 52629-1 Heart Rate 1: 85 bpm Height: 6' SpO2: 98% Weight: 239 lbs 12/25/2013 Blood Pressure 1: 146/80 Code: 8480-6 BMI: 30.5 Code: 34101-1 Heart Rate 1: 100 bpm Height: 6' Weight: 225 lbs 11/28/2013 Blood Pressure 1: 120/64 Code: 8480-6 BMI: 30.4 Code: 85536-4 Heart Rate 1: 68 bpm Height: 6' Weight: 224 lbs 11/14/2013 Blood Pressure 1: 124/80 Code: 8480-6 BMI: 30.0 Code: 67985-2 Heart Rate 1: 76 bpm Height: 6' [...] not bring in readings 08/21/2018 -Checked at [facility] Pertinent Findings Denies dizziness 08/21/2018 None Pertinent [...] Maxitrol and Polytrim seeing eye dr in [place]. Reports eye still feels irritated. headache Quality [...] Maxitrol and Polytrim seeing eye dr in [place]. Reports eye still feels irritated. headache Quality [...] Directive data Encounters Encounter Performer Location Codes ([id number]) 77789 EST. PATIENT, LEVEL II Diagnosis: Rash and other nonspecific skin eruption[ICD10: R21] [facility] CPT-4: 36081 09/04/2018 ([id number]) 86830 EST. PATIENT, LEVEL III Diagnosis: Rash and other nonspecific skin eruption[ICD10: R21] Diagnosis: Other pruritus[ICD10: L29.8] [facility] CPT-4: 20434 08/28/2018 ([id number]) 25478 EST. PATIENT, LEVEL IV Diagnosis: Essential (primary) hypertension[ICD10: I10] Diagnosis: Pain in right shoulder[ICD10: M25.511] Diagnosis: Muscle weakness (generalized)[ICD10: M62.81] Quyen Long MD [facility] CPT-4: 60371 08/21/2018 23321 EST. PATIENT, LEVEL III Diagnosis: Tinea barbae and tinea capitis[ICD10: B35.0] Glory Long MD [facility] CPT-4: 12116 06/27/2018 ([id number]) 04312 EST. 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 PATIENT, LEVEL III Diagnosis: Acute bronchitis due to other specified organisms[ICD10: J20.8] Antoinette Long MD [facility] CPT-4: 99153 02/08/2018 ([id number]) 45429 EST. 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 PATIENT, LEVEL III Diagnosis: Essential (primary) hypertension[ICD10: I10] Diagnosis: Localized edema[ICD10: R60.0] Diagnosis: Cellulitis of left lower limb[ICD10: L03.116] Quyen Long MD, [facility] CPT-4: 26970 06/07/2017 ([id number]) 52082 EST. 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 PATIENT, LEVEL II Diagnosis: Rash and other nonspecific skin eruption[ICD10: R21] Glory Long MD, [facility] CPT-4: 54311 05/09/2017 ([id number]) 02052 EST. PATIENT, LEVEL II Diagnosis: Rash and other nonspecific skin eruption[ICD10: R21] Glory Long MD [facility] CPT-4: 01732 04/25/2017 ([id number]) 14728 EST. PATIENT, LEVEL III Diagnosis: Cellulitis of left lower limb[ICD10: L03.116] Diagnosis: Rash and other nonspecific skin eruption[ICD10: R21] Glory Long MD, [facility] CPT-4: 24400 2017 ([id number]) 03587 EST. PATIENT, LEVEL III Diagnosis: Cellulitis of left lower limb[ICD10: L03.116] Diagnosis: Rash and other nonspecific skin eruption[ICD10: R21] Glory Long MD, [facility] CPT-4: 69808 03/29/2017 46230 EST. PATIENT, LEVEL IV Diagnosis: Cellulitis of left lower limb[ICD10: L03.116] Antoinette Long MD [facility] CPT-4: 63005 03/17/2017 ([id number]) 27868 EST. PATIENT, LEVEL III Diagnosis: Rash and other nonspecific skin eruption[ICD10: R21] Glory Long MD [facility] CPT-4: 73879 03/08/2017 58988 EST. PATIENT, LEVEL IV Diagnosis: Essential (primary) hypertension[ICD10: I10] Diagnosis: Muscle weakness (generalized)[ICD10: M62.81] Diagnosis: Body mass index (BMI) 36.0-36.9, adult[ICD10: Z68.36] Diagnosis: Family history of ischemic heart disease and other diseases of the circulatory system[ICD10: Z82.49] Antoinette Long MD [facility] CPT-4: 35828 02/17/2017 ([id number]) 73924 EST. PATIENT, LEVEL IV Diagnosis: Essential (primary) hypertension[ICD10: I10] Diagnosis: Muscle weakness (generalized)[ICD10: M62.81] Quyne Long MD, [facility] CPT-4: 25585 01/18/2017 ([id number]) 98293 EST. 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 PATIENT, LEVEL III Diagnosis: Pain in left shoulder[ICD10: M25.512] Diagnosis: Rash and other nonspecific skin eruption[ICD10: R21] Glroy Long MD, [facility] CPT-4: 30658 08/17/2016 ([id number]) 40786 EST. PATIENT, LEVEL IV Diagnosis: Essential (primary) hypertension[ICD10: I10] Diagnosis: Pain in left shoulder[ICD10: M25.512] Quyen Long MD, [facility] CPT-4: 96786 07/20/2016 ([id number]) 17431 EST. 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 PATIENT, LEVEL IV Diagnosis: Essential (primary) hypertension[ICD10: I10] Diagnosis: Other abnormal glucose[ICD10: R73.09] Diagnosis: Gastro-esophageal reflux disease without esophagitis[ICD10: K21.9] Diagnosis: Obesity, unspecified[ICD10: E66.9] Quyen Long MD, [facility] CPT- 4: 65857 04/16/2015 ([id number]) 95305 EST. PATIENT, LEVEL IV Diagnosis: ESSENTIAL HYPERTENSION[ICD9: 401.9] Diagnosis: OBESITY[ICD9: 278.00] Diagnosis: Post-polio limb muscle weakness[ICD9: 728.87] Quyen Long MD, [facility] CPT-4: 06889 02/19/2015 ([id number]) 01358 EST. PATIENT, LEVEL IV Diagnosis: Shingles outbreak[ICD9: 053.9] Diagnosis: ESSENTIAL HYPERTENSION[ICD9: 401.9] Diagnosis: Earache[ICD9: 388.70] Quyen Long MD, [facility] CPT-4: 04674 11/20/2014 ([id number]) 84449 EST. PATIENT, LEVEL III Diagnosis: Shingles outbreak[ICD9: 053.9] Diagnosis: Face pain[ICD9: 784.0] Diagnosis: Pain, eye, right[ICD9: 379.91] Quyen Long MD, [facility] CPT-4: 34191 11/05/2014 ([id number]) 22747 EST. PATIENT, LEVEL V Diagnosis: Post-polio limb muscle weakness[ICD9: 728.87] Diagnosis: Post-polio syndrome[ICD9: 138] Diagnosis: Leg weakness[ICD9: 729.89] Diagnosis: Weakness[ICD9: 780.79] Diagnosis: Foot drop[ICD9: 736.79] Quyen Long MD, [facility] CPT-4: 75118 09/19/2014 ([id number]) 60877 EST. PATIENT, LEVEL IV Diagnosis: ESSENTIAL HYPERTENSION[ICD9: 401.9] Diagnosis: Carotid bruit[ICD9: 785.9] Diagnosis: Seborrheic dermatitis[ICD9: 690.10] Diagnosis: Post-polio syndrome[ICD9: 138] Diagnosis: Vitamin D deficiency[ICD9: 268.9] Quyen Long MD, [facility] CPT- 4: 98962 07/24/2014 ([id number]) 87642 EST. PATIENT, LEVEL IV Diagnosis: Neck pain[ICD9: 723.1] Diagnosis: Post-polio syndrome[ICD9: 138] Diagnosis: Vitamin D deficiency[ICD9: 268.9] Diagnosis: Vitamin B12 deficiency[ICD9: 266.2] Diagnosis: Nocturia[ICD9: 788.43] Diagnosis: Leg weakness[ICD9: 729.89] Diagnosis: Elevated blood sugar[ICD9: 790.29] Glory Long MD, [facility] CPT- 4: 24154 05/23/2014 ([id number]) 47011 EST. PATIENT, LEVEL IV Diagnosis: ESSENTIAL HYPERTENSION[ICD9: 401.9] Diagnosis: HEADACHE[ICD9: 784.0] Diagnosis: EDEMA[ICD9: 782.3] Qyuen Long MD, [facility] CPT-4: 39272 04/18/2014 01168 EST. PATIENT, LEVEL IV Diagnosis: Insomnia[ICD9: 780.52] Diagnosis: Post-polio syndrome[ICD9: 138] Diagnosis: Vitamin D deficiency[ICD9: 268.9] Diagnosis: Nocturnal hypoxemia[ICD9: 799.02] Glory Long MD, [facility] CPT- 4: 30319 02/21/2014 ([id number]) 80966 EST. PATIENT, LEVEL III Diagnosis: Tinea pedis[ICD9: 110.4] Diagnosis: Post-polio limb muscle weakness[ICD9: 728.87] Glory Long MD, [facility] CPT-4: 88204 12/25/2013 ([id number]) 32308 EST. PATIENT, LEVEL IV Diagnosis: Insomnia[ICD9: 780.52] Diagnosis: Vitamin B12 deficiency (dietary) anemia[ICD9: 281.1] Diagnosis: VITAMIN D DEFICIENCY[ICD9: 268.9] Diagnosis: Weakness[ICD9: 780.79] Quyen Long MD, [facility] CPT-4: 99819 11/28/2013 ([id number]) OFFICE/OUTPATIENT VISIT NEW Diagnosis: Post-polio limb muscle weakness[ICD9: 728.87] Diagnosis: Post-polio syndrome[ICD9: 138] Diagnosis: Insomnia[ICD9: 780.52] Diagnosis: Arrhythmia[ICD9: 427.9] Quyen Long MD, [facility] CPT-4: 29665 11/14/2013 Plan of Care Planned Activity Notes Codes Status Date Visit Plan: Rash-resolved -continue topical betamethasone cream as ordered-call if rash returns 09/04/2018 Appointment: Glory Dalton WPtel: [phone] [phone] (30 min) Complex 09/04/2018 Patient Education: Patient Medication Summary Completed 09/04/2018 Visit Plan: Rash-culture today in the office -kenalog injection for acute symptoms -start prednisone tomorrow- treat with abx if indicated on culture- follow up in 1 week, sooner if needed 08/28/2018 Appointment: Glory Dalton WPtel: [phone] (30 min) Complex 08/28/2018 Patient Education: Patient Medication Summary Completed 08/28/2018 Appointment: Quyen Long WPtel: [facility] (15 min) Moderate 08/24/2018 Visit Plan: [...] Post-Polio syndrome. 08/21/2018 Appointment: Quyen Long WPtel: [facility] (15 min) Moderate 08/21/2018 Patient Education: Patient Medication Summary Completed 08/21/2018 Patient Education: Hypertension Completed 08/21/2018 Visit Plan: Tinea barbae -rx for ketoconazole written and instructed patient on use -instructed patient to call or return to clinic if symptoms do not resolve or if any worse. Patient verbalized understanding of plan. 06/27/2018 Appointment: Glory Dalton WPtel: [phone] (30 min) Complex 06/27/2018 Patient Education: Patient [...] his shoulder. 04/20/2018 Appointment: Quyen Long WPtel: [phone] [facility] (15 min) Moderate 04/20/2018 Patient Education: Patient Medication Summary Completed 04/20/2018 Patient Education: Hypertension Completed 04/20/2018 Appointment: Quyen Long WPtel: [phone] [facility] [place] (15 min) Moderate 04/11/2018 Visit Plan: Post polio syndrome -right leg weakness -patient needs repair and adjustment of his right leg brace that helps with his symptoms of instability and weakness and allows him to ambulate -will send rx to [place] [facility] 03/21/2018 Appointment: Glory Dalton WPtel: [phone] [phone] [place] (15 min) Moderate 03/21/2018 Patient Education: [...] acutely worsen. 02/08/2018 Appointment: Antoinette Arndt WPtel: [phone] [facility] [place] (30 min) Complex 02/08/2018 Patient Education: [...] Completed 12/27/2017 Appointment: [phone] [facility] [place] (15 min) Moderate 12/08/2017 Visit Plan: Hypertension [...] shoulder injection. 12/06/2017 Appointment: Quyen Long WPtel: [phone] [facility] [place] (15 min) Moderate 12/06/2017 Patient Education: Patient [...] weight check. 09/07/2017 Appointment: Quyen Long WPtel: [phone] [facility] (15 min) Moderate 09/07/2017 Patient Education: Patient [...] lower leg. 06/07/2017 Appointment: Quyen Long WPtel: [phone] [facility] (15 min) Moderate 06/07/2017 Patient Education: Patient [...] compression recommended. 05/19/2017 Appointment: Quyen Long WPtel: [facility] (15 min) Moderate 05/19/2017 Patient Education: Patient Medication Summary Completed 05/19/2017 Patient Education: Obesity Completed 05/19/2017 Patient Education: Hypertension Completed 05/19/2017 Visit Plan: Rash-left rfjp-jlkpqqdd-prmkpwqutj patient to continue using ketoconazole plus betamethasone equal parts and increase to TID-leave foot open to air as much as possible-follow up in 2 weeks, sooner if needed. 05/09/2017 Appointment: Glory Dalton WPtel: [address] [place], [place] [phone] (30 min) Complex 05/09/2017 Patient Education: Patient Medication Summary Completed 05/09/2017 Patient Education: Obesity Completed 05/09/2017 Visit Plan: Rash-left foot-Dr Long in to evaluate rash-instructed patient to start using ketoconazole plus betamethasone equal parts TID -follow up in 2 weeks, sooner if needed. 04/25/2017 Appointment: Glory Dalton WPtel: [address] [place], [place] [phone] (30 min) Complex 04/25/2017 Patient Education: Patient Medication Summary Completed 04/25/2017 Visit Plan: Cellulitis of left foot-no longer draining-no open areas-no excoriation-slightly red-okay to d/c all treatments-keep clean and monitor-call if redness does not resolve Rash-resolved 2017 Appointment: Glory Dalton WPtel: [phone] [phone] (30 min) Complex 2017 Patient Education: Patient Medication Summary Completed 2017 Patient Education: Obesity Completed 2017 Visit Plan: Cellulitis-left foot-MSSA cqchhogd-qejflgrub-ejewn air in the evening-continue bactroban ointment twice daily-stop using alcohol on foot-no papertowels or abrasives to foot Kpre-wyju-ku for betamethasone provided and instructed on use 03/29/2017 Appointment: Glory Dalton WPtel: [phone] [place] (30 min) Complex 03/29/2017 Patient Education: Patient Medication Summary Completed 03/29/2017 Patient Education: Obesity Completed 03/29/2017 Appointment: Glory Dalton WPtel: [facility]5 [phone] (30 min) Complex 03/22/2017 Visit Plan: Cellulitis [...] warmth, discharge. 03/17/2017 Appointment: Antoinette Arndt WPtel: [facility] [place] (30 min) Complex 03/17/2017 Patient Education: Patient [...] the break. 01/18/2017 Appointment: Quyen Long WPtel: [facility]5 [facility] (15 min) Moderate 01/18/2017 Patient Education: Patient [...] and weakness. 10/19/2016 Appointment: Quyen Long WPtel: [phone] [facility] (15 min) Moderate 10/19/2016 Patient Education: Patient Medication Summary Completed 10/19/2016 Patient Education: Obesity Completed 10/19/2016 Visit Plan: Left shoulder pain-hospital f/u recent shoulder surgery with Dr Wilson-doing well-sees Dr Wilson this afternoon for suture removal-pain improved Wipw-huox-pznbbff fungal infection-will treat with ket oconazole -follow up in 2 weeks 08/17/2016 Appointment: Glory Dalton WPtel: [phone] [phone] (30 min) Complex 08/17/2016 Patient Education: Patient [...] when ambulating. 07/20/2016 Appointment: Quyen Long WPtel: [facility] (15 min) Moderate 07/20/2016 Patient Education: Patient [...] for strengthening. 04/19/2016 Appointment: Quyen Long WPtel: [phone] [facility] (15 min) Moderate 04/19/2016 Patient Education: Patient [...] up appointment. 01/19/2016 Appointment: Quyen Long WPtel: [phone] [facility] (15 min) Moderate 01/19/2016 Patient Education: Patient Medication Summary Completed 01/19/2016 Patient Education: Obesity Completed 01/19/2016 Patient Education: Hypertension Completed 01/19/2016 Referral: Dr Mccauley Referral Completed 11/11/2015 Care Plan: Referral Order SNOMED-CT : [id number] Pending 11/03/2015 Visit Plan: Hypertension - well [...] with injection 10/16/2015 Appointment: Quyen Long WPtel[phone] [facility] (15 min) Moderate 10/16/2015 Patient Education: Patient [...] patient to start with therapy at the [facility] - 02/19/2015 Appointment: Quyen Long WPtel: [facility] (15 min) Moderate 02/19/2015 Patient Education: Patient [...] drops. 11/20/2014 Appointment: Quyen Long WPtel: [phone] [facility] Follow up 11/20/2014 Patient Education: Patient Medication [...] ESME. 11/05/2014 Appointment: Quyen Long WPtel: [phone] [facility] (15 min) Moderate 11/05/2014 Patient Education: Patient [...] to participate in activities outside of the senior living. He has a family that would like [...] and foot. 09/19/2014 Appointment: Quyen Long WPtel: [facility] Follow up 09/19/2014 Patient Education: Patient Medication [...] deficiency - recommended repeat of vitamin d [id number] weekly x 12 weeks and increase vitamin d to 5000 units daily. 07/24/2014 Appointment: Quyen Long WPtel: [phone] [facility] [place] Follow up 07/24/2014 Patient Education: Patient [...] B12 level 05/23/2014 Appointment: Glory Dalton WPtel: [address] [place], [place] [id number] Follow up 05/23/2014 Patient Education: Patient Medication Summary Completed 05/23/2014 Patient Education: .Cervicalgia Neck Pain Completed 05/23/2014 Appointment: Quyen Long WPtel: [address] [place], [place] [id number] [place] Follow up 05/22/2014 Visit Plan: Edema [...] at home. 04/18/2014 Appointment: Quyen Long WPtel: [address] [place], [place] [id number] [place] Follow up 04/18/2014 Patient Education: Patient Medication Summary Completed 04/18/2014 Patient Education: Hypertension Completed 04/18/2014 Appointment: Quyen Long WPtel: [address] [place], [place] [id number] [place] Follow up 02/27/2014 Visit Plan: Insomnia - Pt has been advised to increase the light in the house during the day, and start dimming the lights during the evening hours. Pt has been advised to cut out caffeine after 5pm. Daytime napping worsens night time insomnia. START TRAZODONE AND MONITOR SYMPTOMS. Vitamin D vwmvjmodvg-mcadzsqy-fdhyvudf vitamin D 50,000 units weekly for 12 additional weeks. Hypoxemia-continue night time oxygen 02/21/2014 [facility]ment[phone] Follow up 02/21/2014 Patient Education: Patient Medication [...] on mobic. 11/28/2013 Appointment: Quyen Long WPtel: [phone] [facility] Follow up 11/28/2013 Patient Education: Patient Medication [...] study. 11/14/2013 Appointment: Quyen Long WPtel: [phone] [facility] New Patient 11/14/2013 Patient Education: Patient Medication [...] deficiency - recommended repeat of vitamin d [id number] weekly x 12 weeks and increase vitamin [...] up in 1 week, sooner if needed . Hypertension - well controlled - continue [...] getting another injection into his shoulder. . Hypertension - well controlled - continue [...] syndrome, may need fluoroscopic guidance with injection CONTINUE VITAMIN D FOR 12 WEEKS . Insomnia - Pt has been advised to increase the light in the house during the day, and start dimming the lights during the evening hours. Pt has been advised to cut out caffeine after 5pm. Daytime napping worsens night time insomnia. START TRAZODONE AND MONITOR SYMPTOMS. Vitamin D woiecaseao-yunuudgn-qtkscjbw vitamin D 50,000 units weekly for 12 [...] up in 10 days . Cellulitis-left foot-MSSA satnbopt-dyaovtsmo-sxmfm air in the evening-continue bactroban ointment twice daily-stop using alcohol on foot-no papertowels or abrasives to foot Qolc-xlqd-gc for betamethasone provided and instructed on use Vitamin b12 Vitamin D Hgb A1C cervical [...] appt with addie for shoulder injection. . Post polio syndrome - back-up brace [...] in pain, worsening redness, warmth, discharge. . Post polio syndrome -right leg weakness -patient needs repair and adjustment of his right leg brace that helps with his symptoms of instability and weakness and allows him to ambulate -will send rx to [email or web address] . pt down one pound . Post-polio [...] and dressings to lower leg. . Rash-left jzue-vbmgirtu-rkozicobth patient to continue using ketoconazole plus betamethasone [...] Wilson this afternoon for suture removal-pain improved Ggle-tple-cxwqryo fungal infection-will treat with ketoconazole -follow up [...] to participate in activities outside of the senior living. He has a family that would like [...]
--- OUTSIDE RECORDS SUMMARY | 2018-11-10 15:11 | XMS REPORT | CCD ---
Author Author Quyen Long Organization Quyen Long MD, [facility] Address [address] [place] [address] Phone Care Team Providers Care Back Tender Name Role Phone PP Unavailable CCM Unavailable Summary Purpose Interface Exchange Insurance Providers Payer name Policy type / Coverage type Covered libertarian ID Effective Begin Date Effective End Date WPS Medicare Part B Medicare Part B [id number] 2013 Unknown [facility] Medicare Part B [id number] 2013 Unknown Family history Grandmother Diagnosis Age At [...] Social History Element Codes Description Effective Dates Marital status Unknown 10/19/2016 Living arrangements Unknown Assisted Living [facility] 04/19/[address]: 3872621 Former smoker 1 pack daily x 45 years 10/16/2015 Number of children Unknown 1 son - lives in [place] 11/14/2013 Employment Unknown 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 Active 02/21/2014 Unknown Rash and other nonspecific skin eruption ICD-9: 782.1 ICD-10: R21 Active 08/17/2016 Unknown Muscle weakness (generalized) ICD-9: 728.87 ICD-10: M62.81 Active 12/25/2013 Unknown Other obesity due to excess calories ICD-9: 278.00 ICD-10: E66.09 Active 01/18/2016 Unknown Obesity, unspecified ICD- 9: 278.00 ICD-10: E66.9 Active 02/18/2015 Unknown Gastro-esophageal reflux disease without esophagitis ICD-9: [...] Problems Condition Codes Effective Dates Condition Status Essential (primary) hypertension ICD-9: 401.9 ICD-10: I10 04/18/2014 Active Pain in left shoulder ICD- 9: 719.41 ICD-10: M25.512 07/16/2015 Active 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 02/21/2014 Active Rash and other nonspecific skin eruption ICD-9: 782.1 ICD-10: R21 08/17/2016 Active Muscle weakness (generalized) ICD-9: 728.87 ICD-10: M62.81 12/25/2013 Active Other obesity due to excess calories ICD-9: 278.00 ICD-10: E66.09 01/18/2016 Active Obesity, unspecified ICD- 9: 278.00 ICD-10: E66.9 02/18/2015 Active Gastro-esophageal reflux disease without esophagitis ICD-9: [...] Start Date Stop Date Status Fill Instructions lisinopril 20 mg tablet RxNorm: 651361 TAKE ONE TABLET BY MOUTH DAILY 12/13/2016 04/11/2017 Active trazodone 50 mg tablet RxNorm: 127975 TAKE ONE TABLET BY MOUTH AT BEDTIME 09/24/2016 03/22/2017 Active Vitamin D3 5,000 unit tablet RxNorm: 009718 TAKE ONE TABLET BY MOUTH DAILY 09/20/2016 02/16/2017 Active lisinopril 20 mg tablet RxNorm: 666629 TAKE ONE TABLET BY MOUTH DAILY 09/13/2016 12/12/2016 Inactive ketoconazole 2 % topical cream RxNorm: 695094 1 Application TOP BID 08/17/2016 08/30/2016 Inactive deliver to tika talamantes please Pepcid 20 mg tablet RxNorm: 944132 TAKE ONE TABLET BY MOUTH TWICE A DAY 07/12/2016 10/09/2016 Inactive omega-3 acid ethyl esters 1 gram capsule RxNorm: 361501 3 Capsule(s) PO daily 06/18/2016 12/14/2016 Active omega-3 acid ethyl esters 1 gram capsule RxNorm: 362881 3 Capsule(s) PO daily 06/18/2016 06/17/2016 Inactive trazodone 50 mg tablet RxNorm: 956347 TAKE ONE TABLET BY MOUTH AT BEDTIME 06/08/2016 08/06/2016 Inactive tamsulosin 0.4 mg capsule RxNorm: 885766 Capsule(s) TAKE ONE CAPSULE BY MOUTH EVERY EVENING 06/04/2016 12/30/2016 Active hydrochlorothiazide 25 mg tablet RxNorm: 695955 TAKE ONE TABLET BY MOUTH DAILY 05/10/2016 11/05/2016 Inactive hydrochlorothiazide 25 mg tablet RxNorm: 962572 TAKE ONE TABLET BY MOUTH DAILY 05/10/2016 05/09/2016 Inactive Pepcid 20 mg tablet RxNorm: 472494 1 Tablet(s) PO BID 03/18/2016 03/17/2016 Inactive Pepcid 20 mg tablet RxNorm: 368538 1 Tablet(s) PO BID 03/18/2016 07/11/2016 Inactive lisinopril 20 mg tablet RxNorm: 276132 TAKE ONE TABLET BY MOUTH DAILY 03/18/2016 08/14/2016 Inactive Vitamin D3 5,000 unit tablet RxNorm: 846139 Tablet(s) TAKE ONE TABLET BY MOUTH DAILY 03/18/2016 09/13/2016 Inactive Vesicare 10 mg tablet RxNorm: 583953 1 Tablet(s) PO QHS 03/15/2016 02/07/2017 Active trazodone 50 mg tablet RxNorm: 681265 TAKE ONE TABLET BY MOUTH AT BEDTIME 03/15/2016 06/07/2016 Inactive meloxicam 15 mg tablet RxNorm: 371136 TAKE ONE TABLET BY MOUTH DAILY 03/01/2016 01/24/2017 Active Bactrim DS 800 mg-160 mg tablet RxNorm: 200499 1 Tablet(s) PO BID 02/10/2016 02/09/2016 Inactive Bactrim DS 800 mg-160 mg tablet RxNorm: 440892 1 Tablet(s) PO BID 02/10/2016 02/16/2016 Inactive Cipro 500 mg tablet RxNorm: 685916 1 Tablet(s) PO BID 02/06/2016 02/09/2016 Inactive Cipro 500 mg tablet RxNorm: 296262 1 Tablet(s) PO BID 02/06/2016 02/05/2016 Inactive Pennsaid 20 mg/gram/actuation (2 %) topical soln in metered- dose pump RxNorm: 6570120 2 pumps TOP BID 01/19/2016 04/19/2016 Inactive tamsulosin 0.4 mg capsule RxNorm: 299587 TAKE ONE CAPSULE BY MOUTH EVERY EVENING 01/12/2016 06/03/2016 Inactive cyanocobalamin (vit B-12) 1,000 mcg/mL injection solution RxNorm: 051226 INJECT 1 ML INTRAMUSCULARLY MONTHLY 01/01/2016 10/26/2016 Inactive Request already responded to by other means (e.g. phone or fax) Vitamin B-12 1,000 mcg/mL injection solution RxNorm: 899121 1 Milliliter(s) Inj monthly 12/24/2015 04/19/2016 Inactive please give syringes for injections Vitamin D3 5,000 unit tablet RxNorm: 040892 TAKE ONE TABLET BY MOUTH DAILY 12/08/2015 03/06/2016 Inactive pantoprazole 40 mg tablet,delayed release RxNorm: 137316 TAKE ONE TABLET BY MOUTH DAILY 12/08/2015 03/17/2016 Inactive trazodone 50 mg tablet RxNorm: 529878 TAKE ONE TABLET BY MOUTH AT BEDTIME 11/10/2015 03/08/2016 Inactive lisinopril 20 mg tablet RxNorm: 825605 TAKE ONE TABLET BY MOUTH DAILY 09/08/2015 03/05/2016 Inactive Vitamin D3 5,000 unit tablet RxNorm: 490589 1 Tablet(s) PO daily 08/12/2015 12/07/2015 Inactive pantoprazole 40 mg tablet,delayed release RxNorm: 470382 1 Tablet(s) PO daily 08/12/2015 12/07/2015 Inactive tamsulosin 0.4 mg capsule RxNorm: 888344 TAKE ONE CAPSULE BY MOUTH EVERY EVENING 07/21/2015 12/17/2015 Inactive trazodone 50 mg tablet RxNorm: 692083 TAKE ONE TABLET BY MOUTH AT BEDTIME 05/09/2015 10/05/2015 Inactive hydrochlorothiazide 25 mg tablet RxNorm: 710576 TAKE ONE TABLET BY MOUTH DAILY 04/30/2015 11/25/2015 Inactive hydrochlorothiazide 25 mg tablet RxNorm: 193821 1 Tablet(s) PO QAM 04/30/2015 04/29/2015 Inactive pantoprazole 40 mg tablet,delayed release RxNorm: 091972 1 Tablet(s) PO daily 04/16/2015 08/11/2015 Inactive meloxicam 15 mg tablet RxNorm: 632848 TAKE ONE TABLET BY MOUTH DAILY 03/03/2015 02/25/2016 Inactive lisinopril 20 mg tablet RxNorm: 816872 1 Tablet(s) PO daily 02/19/2015 09/07/2015 Inactive tamsulosin 0.4 mg capsule RxNorm: 421202 TAKE ONE CAPSULE BY MOUTH EVERY EVENING 01/20/2015 07/18/2015 Inactive cyanocobalamin (vit B-12) 1,000 mcg/mL injection solution RxNorm: 073514 Milliliter(s) INJECT 1ML INTRAMUSCULARLY MONTHLY 12/12/2014 12/22/2014 Inactive trazodone 50 mg tablet RxNorm: 553714 TAKE ONE TABLET BY MOUTH AT BEDTIME 11/14/2014 05/08/2015 Inactive erythromycin 5 mg/gram (0.5 %) eye ointment RxNorm: 906545 1/2 inch OPH QID 11/05/2014 11/14/2014 Inactive acyclovir 800 mg tablet RxNorm: 994106 1 Tablet(s) PO TID 11/05/2014 11/18/2014 Inactive Zofran 4 mg tablet RxNorm: 426085 1 Tablet(s) PO Q4H as needed nausea 11/05/2014 01/03/2015 Inactive Duragesic 12 mcg/hr transdermal patch RxNorm: 698277 1 Patch TD Q72H 11/05/2014 02/04/2015 Inactive Imitrex 100 mg tablet RxNorm: 944051 1 Tablet(s) PO q 12 hours 11/04/2014 04/15/2015 Inactive naproxen 500 mg tablet RxNorm: 785051 1 Tablet(s) PO BID 10/30/2014 11/01/2014 Inactive meloxicam 15 mg tablet RxNorm: 654010 TAKE ONE TABLET BY MOUTH DAILY 10/04/2014 03/02/2015 Inactive Vesicare 5 mg tablet RxNorm: 992717 TAKE ONE TABLET BY MOUTH AT BEDTIME 09/16/2014 07/16/2015 Inactive Vitamin D2 50,000 unit capsule RxNorm: 466262 1 Capsule(s) PO QW 09/06/2014 07/16/2015 Inactive once weekly x 12 weeks tamsulosin ER 0.4 mg capsule,extended release 24 hr RxNorm: 581913 TAKE ONE CAPSULE BY MOUTH EVERY EVENING 06/24/2014 12/20/2014 Inactive tamsulosin ER 0.4 mg capsule,extended release 24 hr RxNorm: 906896 1 Capsule(s) PO QPM 06/24/2014 01/19/2015 Inactive Vitamin D2 50,000 unit capsule RxNorm: 433840 1 Capsule(s) PO QW 05/27/2014 09/05/2014 Inactive once weekly x 12 weeks Vesicare 5 mg tablet RxNorm: 234372 1 Tablet(s) PO QHS 05/23/2014 05/22/2014 Inactive Vesicare 5 mg tablet RxNorm: 859948 1 Tablet(s) PO QHS 05/23/2014 09/15/2014 Inactive trazodone 50 mg tablet RxNorm: 953808 TAKE ONE TABLET BY MOUTH AT BEDTIME 05/13/2014 11/08/2014 Inactive trazodone 50 mg tablet RxNorm: 179427 TAKE ONE TABLET BY MOUTH AT BEDTIME 05/13/2014 11/08/2014 Inactive hydrochlorothiazide 25 mg tablet RxNorm: 228072 1 Tablet(s) PO [facility] 04/18/2014 01/12/2015 Inactive Vitamin D2 50,000 unit capsule RxNorm: 328958 TAKE ONE CAPSULE BY MOUTH ONCE WEEKLY FOR 12 WEEKS 04/09/2014 05/14/2014 Inactive trazodone 50 mg tablet RxNorm: 841933 1 Tablet(s) PO QHS 02/22/2014 05/12/2014 Inactive trazodone 50 mg tablet RxNorm: 178397 1 Tablet(s) PO QHS 02/22/2014 02/21/2014 Inactive Vitamin D2 50,000 unit capsule RxNorm: 109047 TAKE ONE CAPSULE BY MOUTH ONCE WEEKLY FOR 12 WEEKS 02/07/2014 03/06/2014 Inactive meloxicam 15 mg tablet RxNorm: 455804 TAKE ONE TABLET BY MOUTH ONCE A DAY 02/07/2014 08/05/2014 Inactive meloxicam 15 mg tablet RxNorm: 164661 TAKE ONE TABLET BY MOUTH ONCE A DAY 02/07/2014 2014 Inactive clotrimazole 1 % topical cream RxNorm: 660530 1 Application TOP BID 12/25/2013 07/16/2015 Inactive Diflucan 150 mg tablet RxNorm: 645514 1 Tablet(s) PO daily 12/25/2013 12/31/2013 Inactive tamsulosin ER 0.4 mg capsule,extended release 24 hr RxNorm: 200090 1 Capsule(s) PO QPM 11/28/2013 06/23/2014 Inactive cyanocobalamin (vit B-12) 1,000 mcg/mL injection solution RxNorm: 879311 1 Milliliter(s) Inj 11/28/2013 12/12/2014 Inactive Vitamin B-12 1,000 mcg/mL injection solution RxNorm: 883126 1 Milliliter(s) Inj monthly 11/21/2013 02/13/2015 Inactive please give syringes for injections Vitamin D2 50,000 unit capsule RxNorm: 231645 1 Capsule(s) PO QW x 12 weeks 11/21/2013 02/06/2014 Inactive [SAVINGS FOR UNINSURED PATIENTS -- to take addtional 2000 units daily Vitamin B-12 1,000 mcg/mL injection solution RxNorm: 898847 1 Milliliter(s) Inj monthly 11/21/2013 11/20/2013 Inactive meloxicam 15 mg tablet RxNorm: 104329 1 Tablet(s) PO daily 11/20/2013 11/19/2013 Inactive [SAVINGS FOR UNINSURED PATIENTS -- BIN:[id number], PCN: [id number], Group: [id number], ID# [id number], Process claim through [employer], for questions: . THIS IS NOT INSURANCE.] meloxicam 15 mg tablet RxNorm: 162026 1 Tablet(s) PO daily 11/20/2013 02/06/2014 Inactive [SAVINGS FOR UNINSURED PATIENTS -- BIN:004026, PCN: [id number], Group: [id number], ID# [id number], Process claim through [employer], for questions: . THIS IS NOT INSURANCE.] meloxicam 15 mg tablet RxNorm: 471720 1 Tablet(s) PO daily 11/20/2013 11/19/2013 Inactive Voltaren 1 % topical gel RxNorm: 158168 4 Application TOP QID apply to back, affected joints four times daily 11/14/2013 11/20/2013 Inactive gabapentin 300 mg capsule RxNorm: 852755 1 Capsule(s) PO TID No Start Date Active Toprol XL 25 mg tablet,extended release RxNorm: 810529 1 Tablet(s) PO daily No Start Date Active trazodone 50 mg tablet RxNorm: 667351 1 Tablet(s) PO QHS No Start Date Active Vitamin D2 50,000 unit capsule RxNorm: 336568 1 Capsule(s) PO QW No Start Date 05/26/2014 Inactive once weekly x 12 weeks Vitamin D2 50,000 unit capsule RxNorm: 935105 1 Capsule(s) PO QW No Start Date 11/20/2013 Inactive Vesicare 10 mg tablet RxNorm: 096854 1 Tablet(s) PO QHS No Start Date 03/14/2016 Inactive Vitamin D3 5,000 unit tablet RxNorm: 973867 1 Tablet(s) PO daily No Start Date 08/11/2015 Inactive Celebrex 200 mg capsule RxNorm: 364761 1 Capsule(s) PO BID No Start Date 07/19/2016 Inactive Imitrex 50 mg tablet RxNorm: 820498 1 Tablet(s) PO now and may repeat up to four times in 24 hours No Start Date 11/03/2014 Inactive Zofran 4 mg tablet RxNorm: 678690 1 Tablet(s) PO Q8 as needed nausea and vomitting No Start Date 10/15/2015 Inactive Phenergan 25 mg tablet RxNorm: 568864 1 Tablet(s) PO now No Start Date 04/15/2015 Inactive Tums oral RxNorm: 711045 oral No Start Date 10/15/2015 Inactive Medication Administered Medication Codes Instructions Start Date Status cyanocobalamin (vit B-12) 1,000 mcg/mL injection solution RxNorm: 838038 1Milliliter 11/28/2013 No longer Active Immunizations Vaccine Codes Date Status PPD Unknown 07/03/2015 completed Zoster CVX: 121 11/29/2014 completed Influenza CVX: 141 03/26/2013 completed Assessments Condition Codes Effective Dates Essential (primary) hypertension ICD-10: I10 ICD-9: 401.9 10/19/2016 Pain in left shoulder ICD-10: M25.512 ICD-9: 719.41 10/19/2016 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 10/19/2016 Rash and other nonspecific skin eruption ICD-10: R21 ICD-9: 782.1 08/17/2016 Muscle weakness (generalized) ICD-10: M62.81 ICD-9: 728.87 04/19/2016 Other obesity due to excess calories ICD-10: E66.09 ICD-9: 278.00 01/19/2016 Obesity, unspecified ICD-10: E66.9 ICD-9: 278.00 07/17/2015 Other abnormal glucose ICD-10: R73.09 ICD-9: 790.29 [...] Visit Reason For Visit Effective Dates Notes hypertension 10/19/2016 Hospital Follow Up 08/17/2016 left shoulder surgery hypertension 07/20/2016 hypertension 04/19/2016 hypertension 01/19/2016 hypertension 10/16/2015 hypertension 07/17/2015 hypertension 04/16/2015 headache 02/19/2015 headache 11/20/2014 Hospital Follow Up 11/05/2014 ~generic 09/19/2014 abdominal pain 07/24/2014 lt. side cataract 05/23/2014 Pt states he recently went to an eye doctor in [place]. Reports that he did have hemorrhaging in his right eye which is getting better. headache 04/18/2014 Pt states he recently went to an eye doctor in [place] shortness of breath 02/21/2014 blisters 12/25/2013 insomnia 11/28/2013 back pain 11/14/2013 Results Observation Observation Code Item Item Code Result Date Cbc With Differential Ord2 WBC 4.54 K/ul [...] 29.0 pg 10/20/2016 Cbc With Differential Ord2 [place]% 9.0 % 10/20/2016 Cbc With Differential Ord2 MCHC 32.3 pg 10/20/2016 Cbc With Differential Ord2 Eos% 4.4 % 10/20/2016 Cbc With Differential Ord2 Baso% 0.4 % 10/20/2016 Cbc With Differential Ord2 PLT 156 K/ul 10/20/2016 Cbc With Differential Ord2 RDW 14.4 % 10/20/2016 Cbc With Differential Ord2 Neut ABS# 2.58 K/ul 10/20/2016 Cbc With Differential Ord2 Lymph ABS# 1.33 K/ul 10/20/2016 Cbc With Differential Ord2 [place] ABS# 0.4 K/ul 10/20/2016 Cbc With Differential Ord2 Eos ABS# 0.2 K/ul 10/20/2016 Cbc With Differential Ord2 Baso ABS# 0.0 K/ul 10/20/2016 Comp Metabolic Hri484 NA 143 mEq/L 10/20/2016 Comp Metabolic Kbt921 K 4.6 mEq/L 10/20/2016 Comp Metabolic Fpo852 CL 104 mEq/L 10/20/2016 Comp Metabolic Uxi311 CO2 31.0 mEq/L 10/20/2016 Comp Metabolic Roe504 ANION GAP 13 10/20/2016 Comp Metabolic Jan390 GLUCOSE 117 mg/dL 10/20/2016 Comp Metabolic Szx664 Creat 1.1 mg/dL 10/20/2016 Comp Metabolic Mlr945 eGFR 74 ml/min/1.73m2 10/20/2016 Comp Metabolic Npa985 BUN 27 mg/dL 10/20/2016 Comp Metabolic Fyc171 B/C Ratio 25.7 Ratio 10/20/2016 Comp Metabolic Dzb439 CALCIUM 9.3 mg/dL 10/20/2016 Comp Metabolic Ecq429 ALK PHOS 47 U/L 10/20/2016 Comp Metabolic Ovu383 AST(SGOT) 18 U/L 10/20/2016 Comp Metabolic Xzg087 ALT(SGPT) 22 U/L 10/20/2016 Comp Metabolic Hvr816 BILI T 0.5 mg/dL 10/20/2016 Comp Metabolic Poj493 ALBUMIN 3.9 g/dL 10/20/2016 Comp Metabolic Tue693 TPRO 6.5 g/dL 10/20/2016 Comp Metabolic Jpq357 GLOB 2.6 g/dL 10/20/2016 Comp Metabolic Znz196 A/G Ratio 1.5 Ratio 10/20/2016 Comp Metabolic Etx194 Osmo 291 mOsmo 10/20/2016 Tsh Ord6 hTSH II 1.56 uIU/mL 10/20/2016 Lipid Ord30 CHOL 153 mg/dL 10/20/2016 Lipid Ord30 HDL 34.0 mg/dl 10/20/2016 Lipid Ord30 TRIG 123 mg/dL 10/20/2016 Lipid Ord30 LDL 94 mg/dL 10/20/2016 Lipid Ord30 C/HDL 4.5 Ratio 10/20/2016 B12 Vuj705 B12 544.00 pg/ml 10/20/2016 Comp Metabolic Ncx227 NA 138 mEq/L 05/13/2016 Comp Metabolic Vxc416 K 4.2 mEq/L 05/13/2016 Comp Metabolic Xir343 CL 102 mEq/L 05/13/2016 Comp Metabolic Xhr735 CO2 30.0 mEq/L 05/13/2016 Comp Metabolic Thy838 ANION GAP 10 05/13/2016 Comp Metabolic Hhx511 GLUCOSE 113 mg/dL 05/13/2016 Comp Metabolic Dyf860 Creat 1.0 mg/dL 05/13/2016 Comp Metabolic Qhr866 eGFR 77 ml/min/1.73m2 05/13/2016 Comp Metabolic Ctl907 BUN 26 mg/dL 05/13/2016 Comp Metabolic Ebw960 B/C Ratio 25.5 Ratio 05/13/2016 Comp Metabolic Cwf560 CALCIUM 9.7 mg/dL 05/13/2016 Comp Metabolic Nfv667 ALK PHOS 51 U/L 05/13/2016 Comp Metabolic Zsd854 AST(SGOT) 17 U/L 05/13/2016 Comp Metabolic Enu440 ALT(SGPT) 20 U/L 05/13/2016 Comp Metabolic Lqe798 BILI T 0.6 mg/dL 05/13/2016 Comp Metabolic Hfd375 ALBUMIN 4.0 g/dL 05/13/2016 Comp Metabolic Axn980 TPRO 6.6 g/dL 05/13/2016 Comp Metabolic Vcz484 GLOB 2.6 g/dL 05/13/2016 Comp Metabolic Aey912 A/G Ratio 1.6 Ratio 05/13/2016 Comp Metabolic Tsp233 Osmo 281 mOsmo 05/13/2016 Lipid Ord30 CHOL 172 mg/dL 05/13/2016 Lipid Ord30 HDL 31.0 mg/dl 05/13/2016 Lipid Ord30 TRIG 141 mg/dL 05/13/2016 Lipid Ord30 LDL 113 mg/dL 05/13/2016 Lipid Ord30 C/HDL 5.5 Ratio 05/13/2016 Cbc With Differential Ord2 WBC 4.67 K/ul 02/11/2016 Cbc With Differential Ord2 RBC 4.44 M/ul 02/11/2016 Cbc With Differential Ord2 HGB 13.0 g/dl 02/11/2016 Cbc With Differential Ord2 Neut% 63.8 % 02/11/2016 Cbc With Differential Ord2 HCT 39.5 % 02/11/2016 Cbc With Differential Ord2 Lymph% 25.3 % 02/11/2016 Cbc With Differential Ord2 MCV 89.0 fl 02/11/2016 Cbc With Differential Ord2 MCH 29.3 pg 02/11/2016 Cbc With Differential Ord2 [place]% 7.7 % 02/11/2016 Cbc With Differential Ord2 Eos% 3.0 % 02/11/2016 Cbc With Differential Ord2 MCHC 32.9 pg 02/11/2016 Cbc With Differential Ord2 PLT 161 K/ul 02/11/2016 Cbc With Differential Ord2 Baso% 0.2 % 02/11/2016 Cbc With Differential Ord2 Neut ABS# 2.98 K/ul 02/11/2016 Cbc With Differential Ord2 RDW 14.3 % 02/11/2016 Cbc With Differential Ord2 Lymph ABS# 1.18 K/ul 02/11/2016 Cbc With Differential Ord2 [place] ABS# 0.4 K/ul 02/11/2016 Cbc With Differential Ord2 Eos ABS# 0.1 K/ul 02/11/2016 Cbc With Differential Ord2 Baso ABS# 0.0 K/ul 02/11/2016 Comp Metabolic Jgh203 NA 138 mEq/L 02/11/2016 Comp Metabolic Trn036 K 4.0 mEq/L 02/11/2016 Comp Metabolic Kqw809 CL 97 mEq/L 02/11/2016 Comp Metabolic Hli386 CO2 32.0 mEq/L 02/11/2016 Comp Metabolic Urf314 ANION GAP 13 02/11/2016 Comp Metabolic Cye391 GLUCOSE 117 mg/dL 02/11/2016 Comp Metabolic Ihx987 Creat 1.0 mg/dL 02/11/2016 Comp Metabolic Gep797 eGFR 81 ml/min/1.73m2 02/11/2016 Comp Metabolic Soz314 BUN 21 mg/dL 02/11/2016 Comp Metabolic Okl135 B/C Ratio 21.4 Ratio 02/11/2016 Comp Metabolic Zkl945 CALCIUM 9.2 mg/dL 02/11/2016 Comp Metabolic Red630 ALK PHOS 48 U/L 02/11/2016 Comp Metabolic Qkw052 AST(SGOT) 18 U/L 02/11/2016 Comp Metabolic Bhf917 ALT(SGPT) 22 U/L 02/11/2016 Comp Metabolic Myq735 BILI T 0.5 mg/dL 02/11/2016 Comp Metabolic Yug897 ALBUMIN 3.9 g/dL 02/11/2016 Comp Metabolic Fpc240 TPRO 6.3 g/dL 02/11/2016 Comp Metabolic Qvr761 GLOB 2.5 g/dL 02/11/2016 Comp Metabolic Nvg613 A/G Ratio 1.6 Ratio 02/11/2016 Comp Metabolic Itq853 Osmo 280 mOsmo 02/11/2016 Lipid Ord30 CHOL 163 mg/dL 02/11/2016 Lipid Ord30 HDL 35.0 mg/dl 02/11/2016 Lipid Ord30 TRIG 200 mg/dL 02/11/2016 Lipid Ord30 LDL 88 mg/dL 02/11/2016 Lipid Ord30 C/HDL 4.7 Ratio 02/11/2016 %Hba1C Zpf044 % HbA1c 80811- 6 6.5 % 02/11/2016 %Hba1C Slg359 Gluc Ave 140 mg/dL 02/11/2016 Tsh Ord6 hTSH II 2.07 uIU/mL 02/11/2016 B12 Xii914 B12 563.00 pg/ml 02/11/2016 Culture Urine [id number] URINE CULTURE SEE NOTES 02/10/2016 Culture Urine [id number] Continued Results 02/10/2016 Urine Culture Ucult Complete [...] hours from collection if refrigerated) 11/04/2015 %Hba1C Jzt389 % HbA1c 53716- 6 6.4 % 04/16/2015 %Hba1C Siq202 Gluc Ave 137 mg/dL 04/16/2015 Tsh Ord6 hTSH II 3.33 uIU/mL 02/07/2015 Comp Metabolic Wtf835 NA 136 mEq/L 02/07/2015 Comp Metabolic Npd824 K 3.9 mEq/L 02/07/2015 Comp Metabolic Quy747 CL 98 mEq/L 02/07/2015 Comp Metabolic Ntb722 CO2 31.0 mEq/L 02/07/2015 Comp Metabolic Cbz979 ANION GAP 11 02/07/2015 Comp Metabolic Hbq637 GLUCOSE 139 mg/dL 02/07/2015 Comp Metabolic Ktx331 Creat 0.9 mg/dL 02/07/2015 Comp Metabolic Mfh613 eGFR 87 ml/min/1.73m2 02/07/2015 Comp Metabolic Uma712 BUN 20 mg/dL 02/07/2015 Comp Metabolic Pfu035 B/C Ratio 21.7 Ratio 02/07/2015 Comp Metabolic Qdf173 CALCIUM 9.7 mg/dL 02/07/2015 Comp Metabolic Ebl395 ALK PHOS 55 U/L 02/07/2015 Comp Metabolic Myh210 AST(SGOT) 20 U/L 02/07/2015 Comp Metabolic Hqn818 ALT(SGPT) 27 U/L 02/07/2015 Comp Metabolic Feo816 BILI T 0.5 mg/dL 02/07/2015 Comp Metabolic Zfr567 ALBUMIN 4.3 g/dL 02/07/2015 Comp Metabolic Yzc760 TPRO 6.9 g/dL 02/07/2015 Comp Metabolic Ert248 GLOB 2.6 g/dL 02/07/2015 Comp Metabolic Imk800 A/G Ratio 1.7 Ratio 02/07/2015 Comp Metabolic Lkm995 Osmo 277 mOsmo 02/07/2015 Cbc With Differential [...] Ord2 RDW 14.8 % 02/07/2015 A1C HPLC [id number] A1C HPLC 74966-8 6.0 % 05/23/2014 VIT B 12 [id number] VIT B 12 479 PG/ML 05/23/2014 VIT D TOTL [id number] VIT D TOTL 29 NG/ML 05/23/2014 Review of Systems System Result Effective Dates Constitutional No recent illness 10/19/2016 Constitutional No [...] deformity 05/23/2014 atrophy Full Exam - General 1995 Musculoskeletal lower extremity Palpation - thigh: normal [...] kyphoscoliosis 11/28/2013 None Full Exam - General 1995 Musculoskeletal gait and station Gait: asymmetric 11/28/2013 [...] lips 11/14/2013 None Full Exam - General 1995 Ears/Nose/Throat lips/teeth/gingiva Overall: normal dentition 11/14/2013 None [...] benign 11/14/2013 None Full Exam - General 1995 Musculoskeletal [...] tachycardia 11/14/2013 None Procedures Procedure Codes Date ROUTINE VENIPUNCTURE CPT-4: [id number] 05/23/2014 THER/PROPH/DIAG INJ SC/IM CPT-4: [id number] 11/28/2013 VITAMIN B12 INJECTION CPT-4: [id number] 11/28/2013 Vital Signs Date Vital 10/19/2016 Blood Pressure 1: 120/80 Code: 8480-6 BMI: 35.9 Code: 85231-2 Heart Rate 1: 64 bpm Height: 6' SpO2: 97% Weight: 265 lbs 08/17/2016 Blood Pressure 1: 112/76 Code: 8480-6 BMI: 36.1 Code: 44221-8 Heart Rate 1: 65 bpm Height: 6' SpO2: 97% Weight: 266 lbs 07/20/2016 Blood Pressure 1: 126/78 Code: 8480-6 BMI: 35.5 Code: 22069-9 Heart Rate 1: 60 bpm Height: 6' SpO2: 95% Weight: 262 lbs 04/19/2016 Blood Pressure 1: 132/78 Code: 8480-6 BMI: 35.1 Code: 28188-9 Heart Rate 1: 65 bpm Height: 6' SpO2: 98% Weight: 259 lbs 01/19/2016 Blood Pressure 1: 140/64 Code: 8480-6 BMI: 34.4 Code: 14384-3 Heart Rate 1: 61 bpm Height: 6' SpO2: 97% Weight: 254 lbs 10/16/2015 Blood Pressure 1: 108/66 Code: 8480-6 BMI: 35.3 Code: 36232-3 Heart Rate 1: 65 bpm Height: 6' SpO2: 96% Weight: 260 lbs 07/17/2015 Blood Pressure 1: 136/74 Code: 8480-6 BMI: 35.8 Code: 09986-6 Heart Rate 1: 59 bpm Height: 6' SpO2: 97% Weight: 263 lbs 13 oz 07/03/2015 Weight: 265 lbs 04/16/2015 Blood Pressure 1: 130/82 Code: 8480-6 BMI: 36.1 Code: 59120-3 Heart Rate 1: 7694 bpm Height: 6' SpO2: 94% Weight: 266 lbs 02/19/2015 Blood Pressure 1: 160/90 Code: 8480-6 BMI: 35.8 Code: 18940-8 Heart Rate 1: 78 bpm Height: 6' SpO2: 94% Weight: 264 lbs 11/20/2014 Blood Pressure 1: 140/96 Code: 8480-6 BMI: 34.6 Code: 50965-4 Heart Rate 1: 92 bpm Height: 6' SpO2: 95% Weight: 255 lbs 11/05/2014 Blood Pressure 1: 132/70 Code: 8480-6 BMI: 34.6 Code: 72494-2 Heart Rate 1: 96 bpm Height: 6' SpO2: 98% Weight: 255 lbs 09/19/2014 Blood Pressure 1: 152/86 Code: 8480-6 BMI: 35.8 Code: 97369-4 Heart Rate 1: 82 bpm Height: 6' SpO2: 95% Weight: 264 lbs 07/24/2014 Blood Pressure 1: 142/82 Code: 8480-6 BMI: 34.7 Code: 49911-7 Heart Rate 1: 72 bpm Height: 6' Weight: 256 lbs 05/23/2014 Blood Pressure 1: 150/82 Code: 8480-6 BMI: 33.4 Code: 78877-8 Heart Rate 1: 68 bpm Height: 6' Weight: 246 lbs 04/18/2014 Blood Pressure 1: 132/84 Code: 8480-6 BMI: 33.2 Code: 05623-1 Heart Rate 1: 80 bpm Height: 6' Weight: 245 lbs 02/21/2014 Blood Pressure 1: 138/82 Code: 8480-6 BMI: 32.4 Code: 92986-0 Heart Rate 1: 85 bpm Height: 6' SpO2: 98% Weight: 239 lbs 12/25/2013 Blood Pressure 1: 146/80 Code: 8480-6 BMI: 30.5 Code: 61096-4 Heart Rate 1: 100 bpm Height: 6' Weight: 225 lbs 11/28/2013 Blood Pressure 1: 120/64 Code: 8480-6 BMI: 30.4 Code: 72184-2 Heart Rate 1: 68 bpm Height: 6' Weight: 224 lbs 11/14/2013 Blood Pressure 1: 124/80 Code: 8480-6 BMI: 30.0 Code: 69119-9 Heart Rate 1: 76 bpm Height: 6' Weight: 221 lbs Functional Status No Functional Status data History of Present Illness Symptom Name Status Result Effective Date Notes hypertension Quality chronic 10/19/2016 None hypertension Onset [...] Maxitrol and Polytrim seeing eye dr in [place]. Reports eye still feels irritated. headache Quality [...] Maxitrol and Polytrim seeing eye dr in [place]. Reports eye still feels irritated. headache Quality [...] data Encounters Encounter Performer Location Codes Date ([id number]) 86090 EST. 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 PATIENT, LEVEL III Diagnosis: Pain in left shoulder[ICD10: M25.512] Diagnosis: Rash and other nonspecific skin eruption[ICD10: R21] [facility] CPT-4: 81021 08/17/2016 ([id number]) 75945 EST. PATIENT, LEVEL IV Diagnosis: Essential (primary) hypertension[ICD10: I10] Diagnosis: Pain in left shoulder[ICD10: M25.512] Quyen Long MD, [facility] CPT-4: 95514 07/20/2016 ([id number]) 95748 EST. 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 CPT-4: 87190 04/19/2016 68021 EST. 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 CPT-4: 92305 01/19/2016 ([id number]) 18617 EST. 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 CPT-4: 36423 10/16/2015 ([id number]) 91821 EST. 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 CPT- 4: 89140 07/17/2015 ([id number]) Miscellaneous no charge Diagnosis: Obesity, unspecified[ICD10: E66.9] Quyen Long MD, [facility] CPT- 4: 78258 07/03/2015 ([id number]) 34977 EST. PATIENT, LEVEL IV Diagnosis: Essential (primary) hypertension[ICD10: I10] Diagnosis: Other abnormal glucose[ICD10: R73.09] Diagnosis: Gastro-esophageal reflux disease without esophagitis[ICD10: K21.9] Diagnosis: Obesity, unspecified[ICD10: E66.9] Quyen Long MD [facility] CPT- 4: 72969 04/16/2015 ([id number]) 70634 EST. PATIENT, LEVEL IV Diagnosis: ESSENTIAL HYPERTENSION[ICD9: 401.9] Diagnosis: OBESITY[ICD9: 278.00] Diagnosis: Post-polio limb muscle weakness[ICD9: 728.87] Quyen Long MD [facility] CPT-4: 85586 02/19/2015 ([id number]) 45364 EST. PATIENT, LEVEL IV Diagnosis: Shingles outbreak[ICD9: 053.9] Diagnosis: ESSENTIAL HYPERTENSION[ICD9: 401.9] Diagnosis: Earache[ICD9: 388.70] Quyen Long MD [facility] CPT-4: 13990 11/20/2014 ([id number]) 32782 EST. PATIENT, LEVEL III Diagnosis: Shingles outbreak[ICD9: 053.9] Diagnosis: Face pain[ICD9: 784.0] Diagnosis: Pain, eye, right[ICD9: 379.91] Quyen Long MD [facility] CPT-4: 84091 11/05/2014 ([id number]) 98305 EST. PATIENT, LEVEL V Diagnosis: Post-polio limb muscle weakness[ICD9: 728.87] Diagnosis: Post-polio syndrome[ICD9: 138] Diagnosis: Leg weakness[ICD9: 729.89] Diagnosis: Weakness[ICD9: 780.79] Diagnosis: Foot drop[ICD9: 736.79] Quyen Long MD [facility] CPT-4: 36332 09/19/2014 ([id number]) 15960 EST. PATIENT, LEVEL IV Diagnosis: ESSENTIAL HYPERTENSION[ICD9: 401.9] Diagnosis: Carotid bruit[ICD9: 785.9] Diagnosis: Seborrheic dermatitis[ICD9: 690.10] Diagnosis: Post-polio syndrome[ICD9: 138] Diagnosis: Vitamin D deficiency[ICD9: 268.9] Quyen Long MD [facility] CPT- 4: 98454 07/24/2014 ([id number]) 20851 EST. PATIENT, LEVEL IV Diagnosis: Neck pain[ICD9: 723.1] Diagnosis: Post-polio syndrome[ICD9: 138] Diagnosis: Vitamin D deficiency[ICD9: 268.9] Diagnosis: Vitamin B12 deficiency[ICD9: 266.2] Diagnosis: Nocturia[ICD9: 788.43] Diagnosis: Leg weakness[ICD9: 729.89] Diagnosis: Elevated blood sugar[ICD9: 790.29] Glory Long MD, [facility] CPT- 4: 36274 05/23/2014 ([id number]) 35609 EST. PATIENT, LEVEL IV Diagnosis: ESSENTIAL HYPERTENSION[ICD9: 401.9] Diagnosis: HEADACHE[ICD9: 784.0] Diagnosis: EDEMA[ICD9: 782.3] Quyen Long MD, [facility] CPT-4: 91969 04/18/2014 86297 EST. PATIENT, LEVEL IV Diagnosis: Insomnia[ICD9: 780.52] Diagnosis: Post-polio syndrome[ICD9: 138] Diagnosis: Vitamin D deficiency[ICD9: 268.9] Diagnosis: Nocturnal hypoxemia[ICD9: 799.02] Glory Long MD, [facility] CPT- 4: 98519 02/21/2014 ([id number]) 57809 EST. PATIENT, LEVEL III Diagnosis: Tinea pedis[ICD9: 110.4] Diagnosis: Post-polio limb muscle weakness[ICD9: 728.87] Glory Long MD [facility] CPT-4: 78688 12/25/2013 ([id number]) 11639 EST. PATIENT, LEVEL IV Diagnosis: Insomnia[ICD9: 780.52] Diagnosis: Vitamin B12 deficiency (dietary) anemia[ICD9: 281.1] Diagnosis: VITAMIN D DEFICIENCY[ICD9: 268.9] Diagnosis: Weakness[ICD9: 780.79] Quyen Long MD, [facility] CPT-4: 62403 11/28/2013 ([id number]) OFFICE/OUTPATIENT VISIT NEW Diagnosis: Post-polio limb muscle weakness[ICD9: 728.87] Diagnosis: Post-polio syndrome[ICD9: 138] Diagnosis: Insomnia[ICD9: 780.52] Diagnosis: Arrhythmia[ICD9: 427.9] Quyen Long MD, [facility] CPT-4: 69225 11/14/2013 Plan of Care Planned Activity Notes Codes Status Date Visit Plan: Hypertension - well controlled - continue with current medications, continue with no added salt diet. Pt has been encouraged to exercise daily.The pt has been advised to call the office if there are any acute concerns about change in blood pressure readings at home.Post-polio syndrome - recommended patient to continue with physical therapy for his shoulder and weakness. 10/19/2016 [phone] [facility] (15 min) Moderate 10/19/2016 Patient Education: Patient Medication Summary Completed 10/19/2016 Patient Education: Obesity Completed 10/19/2016 Visit Plan: Left shoulder pain-hospital f/u recent shoulder surgery with Dr Wilson- doing well-sees Dr Wilson this afternoon for suture removal-pain improved Bkpa-cmqy-clhoyoq fungal infection-will treat with ketoconazole -follow up in 2 weeks 08/17/2016 Appointment: [facility] [phone] [phone] (30 min) Complex 08/17/2016 Patient Education: Patient Medication Summary Completed 08/17/2016 Patient Education: Obesity Completed 08/17/2016 Visit Plan: Hypertension - well controlled - continue with current medications, continue with no added salt diet. Pt has been encouraged to exercise daily.The pt has been advised to call the office if there are any acute concerns about change in blood pressure readings at home.Shoulder pain - phone call to inpatient rehab - they will look at the patient for placement in rehab after his shoulder surgery for him to rehabilitate.pt has an unstable gait, uses a walker when ambulating short distances, he continues to have need of the walker due to his lower extremity weakness and unstable gait.i have written rx for walker for patient for use when ambulating. 07/20/2016 Visit Plan: Hypertension - well controlled - continue with current medications, continue with no added salt diet. Pt has been encouraged to exercise daily.The pt has been advised to call the office if there are any acute concerns about change in blood pressure readings at home.Shoulder pain - phone call to inpatient rehab - they will look at the patient for placement in rehab after his shoulder surgery for him to rehabilitate. 07/20/2016 Appointment: [facility] [phone] [facility] (15 min) Moderate 07/20/2016 Patient Education: Patient Medication Summary Completed 07/20/2016 Visit Plan: Hypertension - well controlled - continue with current medications, continue with no added salt diet. Pt has been encouraged to exercise daily.The pt has been advised to call the office if there are any acute concerns about change in blood pressure readings at home.Post-Polio syndrome - continue with supportive care, continue with meloxicam for arthritis, continue exercising for strengthening. 04/19/2016 Appointment: Quyen Long WPtel: [phone] [facility] (15 min) Moderate 04/19/2016 Patient Education: Patient Medication Summary Completed 04/19/2016 Patient Education: Obesity Completed 04/19/2016 Patient Education: Hypertension Completed 04/19/2016 Care Plan: BMI Above normal followup SELF-MGMT EDUC & TRAIN 1 PT Pending 01/20/2016 Visit Plan: Hypertension - well controlled - continue with current medications, continue with no added salt diet. Pt has been encouraged to exercise daily.The pt has been advised to call the office if there are any acute concerns about change in blood pressure readings at home.Shoulder pain - pt states that he saw [...] will RTC in one month for weight check.Will order routine labs to be done in February - pt is to notify clinic with any questions or concerns prior to next follow up appointment. 01/19/2016 Appointment: [facility] Long [facility] [phone] [facility] (15 min) Moderate 01/19/2016 Patient Education: Patient Medication Summary Completed 01/19/2016 Patient Education: Obesity Completed 01/19/2016 Patient Education: Hypertension Completed 01/19/2016 Referral: Dr Mccauley Referral Completed 11/11/2015 Care Plan: Referral Order SNOMED-CT : [id number] Pending 11/03/2015 Visit Plan: Hypertension - well controlled - continue with current medications, continue with no added salt diet. Pt has been encouraged to exercise daily.The pt has been advised to call the office if there are any acute concerns about change in blood pressure readings at home.referral to dr. mccauley for shoulder injections/eval - pt has history of post-polio syndrome, may need fluoroscopic guidance with injection 10/16/2015 Appointment: [facility] Long [facility] [phone] [facility] (15 min) Moderate 10/16/2015 Patient Education: Patient Medication Summary Completed 10/16/2015 Patient Education: Obesity Completed 10/16/2015 Patient Education: Hypertension Completed 10/16/2015 Visit Plan: Hypertension - well controlled - continue with current medications, continue with no added salt diet. Pt has been encouraged to exercise daily.The pt has been advised to call the office if there are any acute concerns about change in blood pressure readings at home.Post-polio syndrome - recommended pt to increase activity [...] diet. Pt has been encouraged to exercise daily.The pt has been advised to call the office if there are any acute concerns about change in blood pressure readings at home.Esophageal Reflux - the patient has been counseled against excessive intake of caffeine, spicy foods, peppermint, and cinnamon - all of which can exacerbate esophageal reflux.The patient is to take medications as prescribed and call the office if the symptoms are not improving.Recommended pt to start on pantoprazole 40mg daily.Abnormal glucose - check hgba1c today. 04/16/2015 Patient [...] the office next week for practitioner to review.The pt is to call for acute concerns.Post-polio syndrome - recommended patient to start with therapy at the wellness center - 02/19/2015 Appointment: Quyen Long WPtel: [phone] [facility] (15 min) Moderate 02/19/2015 Patient Education: Patient Medication Summary Completed 02/19/2015 Patient Education: Hypertension Completed 02/19/2015 Visit Plan: Shingles - postherpetic neuralgia - improving symptoms - recommended pt to call if not having continued resolution of symptoms.Hypertension - well controlled - continue with current medications, continue with no added salt diet. Pt has been encouraged to exercise daily.The pt has been advised to call the office if there are any acute concerns about change in blood pressure readings at home.Earache - due to shingles - monitor symptoms, call if not resolving, can consider Auralgan ear drops. 11/20/2014 Appointment: Quyen Long WPtel: [phone] [facility] Follow up 11/20/2014 Patient Education: Patient Medication Summary Completed 11/20/2014 Patient Education: Hypertension Completed 11/20/2014 Visit Plan: Shingles - Herpes Zoster - acute in onset - pt started on acyclovir and instructed to call if symptoms worsen or if the pt is concerned about the symptoms. Pt has been advised to avoid contact with persons who may be , or infants, or immunocompromised individuals.Pt has been instructed that shingles will continue to break out and eventually scab over a two week period, until all of the vesicles are scabbed, the pt is to be considered contagious.Pt to see his eye doctor [facility]. 11/05/2014 Appointment: Quyen Long WPtel: [phone] [facility] (15 min) Moderate 11/05/2014 Patient Education: Patient [...] to participate in activities outside of the correction. He has a family that would like to include him in activities outside of the assisted living facility, but Edi is not able to participate due to his inability to easily mobilize himself or his fatigue with activity.He has the cognitive ability to drive a scooter, and has room in his assisted living room and at the facility to be able to move around on the scooter.He would be able to use the scooter, turn the seat, lock his leg and then safely stand from the scooter height without as much worry about falling.He cannot safely move more than 10 feet, if he successfully stands without falling.He would be able to use the scooter to get around in his room if he is having a polio flair, or persistent weakness to be able to get to his restroom, to the dining room, and be able to move more safely in his home environment.his lower extremity strength is 1/5 on the right, 2/5 on the left on hip/thigh, and lower leg and foot. 09/19/2014 Appointment: Quyen Long WPtel: [address] [place], [place] [address] Follow up 09/19/2014 Patient Education: Patient Medication Summary Completed 09/19/2014 Visit Plan: Hypertension - well controlled - continue with current medications, continue with no added salt diet. Pt has been encouraged to exercise daily.The pt has been advised to call the office if there are any acute concerns about change in blood pressure readings at home.Carotid Bruit - check dopplers.Post Polio syndrome - pt to continue with activity - recommended pt to spend less time in his room, get more exercise to keep muscles stronger and decrease risk of falling.Seborrheic dermatitis - start cerave cream to skin.Vitamin D deficiency - recommended repeat of vitamin d [id number] weekly x 12 weeks and increase vitamin d to 5000 units daily. 07/24/2014 Appointment: Quyen Long WPtel: [facility] [place] Follow up 07/24/2014 Patient Education: Patient Medication Summary Completed 07/24/2014 Patient Education: Hypertension Completed 07/24/2014 Visit Plan: Neck pain-history of surgery-xray cervical spine-biofreeze to cervical muscles-heat PRNPost polio syndrome-right leg weakness-current brace is not [...] as hgb A1C due to elevated blood sugarVitamin D deficiency-check vitamin DVitamin B12 deficiency-check B12 level 05/23/2014 Appointment: Glory Dalton WPtel: [phone] Follow up 05/23/2014 Patient Education: Patient Medication Summary Completed 05/23/2014 Patient Education: .Cervicalgia Neck Pain Completed 05/23/2014 Appointment: Quyen Long WPtel: [facility] [place] Follow up 05/22/2014 Visit Plan: Edema - pt has been advised to elevate legs to prevent dependent edema, compression has been recommended to help to naturally decrease peripheral edema. Diuretic use has been discussed and pt has been instructed in appropriate use of such medication as necessary to further attempt to reduce peripheral edema.Headache - recommended pt to use tylenol for headache, check blood pressure at home and will have staff at assisted living facility call with pressures.Hypertension - well controlled - continue with current medications, continue with no added salt diet. Pt has been encouraged to exercise daily.The pt has been advised to call the office if there are any acute concerns about change in blood pressure readings at home. 04/18/2014 Appointment: Quy[facility] Long [facility]Pt[facility] [phone] [facility] Follow up 04/18/2014 Patient Education: Patient Medication Summary Completed 04/18/2014 Patient Education: Hypertension Completed 04/18/2014 Appointment: Quyen Long WPtel: [phone] [facility] Follow up 02/27/2014 Visit Plan: Insomnia - Pt has been advised to increase the light in the house during the day, and start dimming the lights during the evening hours.Pt has been advised to cut out caffeine after 5pm.Daytime napping worsens night time insomnia.START TRAZODONE AND MONITOR SYMPTOMS.Vitamin D simzxbkvtt-ijkybzuh-tfcmrmnr vitamin D 50,000 units weekly for 12 additional weeks. Hypoxemia-continue night time oxygen 02/21/2014 Appointment: [facility] [phone] [phone] Follow up 02/21/2014 Patient Education: Patient [...] Post polio leg muscle weakness with gait abnormalityPatient requires to use of a wheeled walker with seat-recent falls- abnormal and unsteady gait-with atrophy and weakness of [...] sister verbalize understanding of plan. 12/25/2013 Appointment: [place] received medicaid card yet Other 12/25/2013 Patient Education: Patient Medication Summary Completed 12/25/2013 Visit Plan: Insomnia - Pt has been advised to increase the light in the house during the day, and start dimming the lights during the evening hours.Pt has been advised to cut out caffiene after 5pm.Daytime napping worsens night time insomnia.Vitamin B12 deficiency - pt to start on injections for his b12, monthly injections.Vitamin D deficiency - pt to continue on 50,000 units weekly x 12 weeks.Back pain - improved on mobic. 11/28/2013 Appointment: Quy[facility] [phone] [facility] Follow up 11/28/2013 Patient Education: Patient Medication [...] and he will need therapy to gain strength.Chronic insomnia - pt has been recommended to start on melatonin to aide sleep.Irregular heart beat - recommended pt to have holter monitorPost polio syndrome with gait abnormality and weakness - reocmmended physical therapy and occ therapy eval and treat.Tobaccoism - chest xrayovernight oxygen study. 11/14/2013 Appointment: Quyen Long [facility]Ptel: [phone] [facility] [place] New Patient 11/14/2013 Patient Education: Patient Medication [...] walker for patient for use when ambulating. . Hypertension - well controlled - continue with current medications, continue with no added salt diet. Pt has been encouraged to exercise daily. The pt has been advised to call the office if there are any acute concerns about change in blood pressure readings at home. 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 . Mr. Munoz has post-polio syndrome with [...] to participate in activities outside of the correction. He has a family that would like [...] hip/thigh, and lower leg and foot. . Hypertension - well controlled - continue [...] deficiency - recommended repeat of vitamin d [id number] weekly x 12 weeks and increase vitamin d to 5000 units daily. . Hypertension - well controlled - continue [...] daily. Abnormal glucose - check hgba1c today. . Tinea pedis-discussed natural expected course of [...] prior to next follow up appointment. . pt down one pound . Post-polio [...] shoulder surgery for him to rehabilitate. . Shingles - Herpes Zoster - acute [...] to see his eye doctor [facility]. . Shingles - postherpetic neuralgia - improving [...] resolving, can consider Auralgan ear drops. . Insomnia - Pt has been advised [...] Back pain - improved on mobic. . Edema - pt has been advised [...] in blood pressure readings at home. . Left shoulder pain-hospital f/u recent shoulder surgery with Dr Wilson-doing well-sees Dr Wilson this afternoon for suture removal-pain improved Xzxl-xpeo-flassjb fungal infection-will treat with ketoconazole -follow up in 2 weeks . Hypertension - well controlled - continue with current medications, continue with no added salt diet. Pt has been encouraged to exercise daily. The pt has been advised to call the office if there are any acute concerns about change in blood pressure readings at home. Post-polio syndrome - recommended pt to increase activity at the wellness center. CONTINUE VITAMIN D FOR 12 WEEKS . Insomnia - Pt has been advised to increase the light in the house during the day, and start dimming the lights during the evening hours. Pt has been advised to cut out caffeine after 5pm. Daytime napping worsens night time insomnia. START TRAZODONE AND MONITOR SYMPTOMS. Vitamin D tfqsmphixf-vedryzgy-fnqypfsm vitamin D 50,000 units weekly for 12 additional weeks. Hypoxemia-continue night time oxygen Vitamin b12 Vitamin D Hgb A1C cervical [...] D Vitamin B12 deficiency-check B12 level . Tinea pedis-discussed natural expected course of [...] his sister verbalize understanding of plan. . Hypertension - uncontrolled - the patient's [...]
--- OUTSIDE RECORDS SUMMARY | 2018-11-10 15:16 | XMS REPORT | CCD ---
Author Author Quyen Long Organization Quyen Long MD, [facility] Address [address] [place] [address] Phone Care Team Providers Care Stock Speculator Name Role Phone PP Unavailable CCM Unavailable Summary Purpose Interface Exchange Insurance Providers Payer name Policy type / Coverage type Covered republican ID Effective Begin Date Effective End Date WPS Medicare Part B Medicare Part B [id number] 2017 Unknown [facility] Medicare Part B [id number] 2017 Unknown Family history Grandmother Diagnosis Age [...] Description Effective Dates Tobacco history SNOMED CT: 2442606 Former smoker 1.5 pack daily x 45 years 12/27/2017 Marital status Unknown 10/19/2016 Living arrangements Unknown Assisted Living [facility] 04/19/2016 Number of children Unknown 1 son - lives in [place] 11/14/2013 Employment Unknown 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 11/14/[address]: 788499124 Never drinks alcohol 11/14/2013 Has the patient [...] Start Date Stop Date Status Fill Instructions ranitidine 150 mg tablet RxNorm: 502722 TAKE ONE TABLET BY MOUTH , START August 10/06/2018 02/02/2019 Active gabapentin 300 mg capsule RxNorm: 613062 TAKE ONE CAPSULE BY MOUTH TWICE A DAY 09/18/2018 03/16/2019 Active Kenalog 40 mg/mL suspension for injection RxNorm: 8421334 Milliliter(s) Inj 08/28/2018 08/28/2018 Inactive ketoconazole 2 % topical cream RxNorm: 461514 1 Application TOP BID to left ear and left arm, right arm, left - a total of 1 gram bid 08/21/2018 12/18/2018 Active ranitidine 150 mg tablet RxNorm: 456695 1 Tablet(s) PO daily 08/21/2018 10/05/2018 Inactive ketoconazole 2 % shampoo RxNorm: 949661 APPLY TO AFFECTED AREA(S) TWICE WEEKLY UNTIL RESOLVED 08/14/2018 09/10/2018 Inactive cetirizine 10 mg tablet RxNorm: 0235196 TAKE ONE TABLET BY MOUTH EVERY NIGHT AT BEDTIME 08/07/2018 03/04/2019 Active trazodone 50 mg tablet RxNorm: 434942 TAKE ONE TABLET BY MOUTH AT BEDTIME 07/18/2018 11/14/2018 Active ketoconazole 2 % shampoo RxNorm: 093726 1 TOP BIW 06/27/2018 08/13/2018 Inactive Vitamin B-12 1,000 mcg/mL injection solution RxNorm: 296446 INJECT 1ML MONTHLY 06/19/2018 11/15/2018 Active Request already responded to by other means (e.g. phone or fax) Vitamin B-12 1,000 mcg/mL injection solution RxNorm: 819541 Milliliter(s) INJECT 1ML MONTHLY 06/15/2018 06/18/2018 Inactive Zithromax Z-Brian 250 mg tablet RxNorm: 031925 1 Tablet(s) PO UD 06/14/2018 08/20/2018 Inactive zpack as directed x1 tamsulosin 0.4 mg capsule RxNorm: 584070 TAKE ONE CAPSULE BY MOUTH EVERY EVENING 06/12/2018 01/07/2019 Active gabapentin 300 mg capsule RxNorm: 073237 TAKE ONE CAPSULE BY MOUTH TWICE A DAY 05/31/2018 09/17/2018 Inactive losartan 50 mg tablet RxNorm: 030479 TAKE ONE TABLET BY MOUTH DAILY 05/01/2018 09/27/2018 Inactive Toprol XL 50 mg tablet,extended release RxNorm: 544374 1 Tablet(s) PO daily 04/20/2018 No Stop Date Active Vitamin D3 5,000 unit tablet RxNorm: 967473 TAKE ONE TABLET BY MOUTH DAILY 04/05/2018 02/28/2019 Active trazodone 50 mg tablet RxNorm: 323344 TAKE ONE TABLET BY MOUTH AT BEDTIME 02/27/2018 07/17/2018 Inactive hydrochlorothiazide 25 mg tablet RxNorm: 684401 TAKE ONE TABLET BY MOUTH DAILY 02/13/2018 11/09/2018 Active ranitidine 150 mg tablet RxNorm: 179163 1 Tablet(s) PO BID 02/13/2018 08/20/2018 Inactive albuterol sulfate 2.5 mg/3 mL (0.083 %) solution for nebulization RxNorm: 980448 3 Milliliter(s) INH UD 02/08/2018 No Stop Date Active please deliver all of his prescriptions thank you cefdinir 300 mg capsule RxNorm: 308912 1 Capsule(s) PO BID 02/08/2018 02/17/2018 Inactive prednisone 20 mg tablet RxNorm: 543048 2 Tablet(s) PO daily 02/08/2018 02/12/2018 Inactive fluticasone 50 mcg/actuation nasal spray,suspension RxNorm: 0061451 1 [place] NASAL BID 02/07/2018 06/06/2018 Inactive fluticasone 50 mcg/actuation nasal spray,suspension RxNorm: 3756602 1 [place] NASAL BID 02/07/2018 02/06/2018 Inactive Zithromax Z-Brian 250 mg tablet RxNorm: 486929 1 Tablet(s) PO UD 02/07/2018 03/14/2018 Inactive zpack as directed tamsulosin 0.4 mg capsule RxNorm: 946693 TAKE ONE CAPSULE BY MOUTH EVERY EVENING 01/13/2018 06/11/2018 Inactive Vitamin D3 5,000 unit tablet RxNorm: 656994 TAKE ONE TABLET BY MOUTH DAILY 01/02/2018 04/04/2018 Inactive cetirizine 10 mg tablet RxNorm: 8384785 TAKE ONE TABLET BY MOUTH EVERY NIGHT AT BEDTIME 01/02/2018 04/01/2018 Inactive cetirizine 10 mg tablet RxNorm: 8988773 1 Tablet(s) PO QHS 12/26/2017 01/01/2018 Inactive cetirizine 10 mg tablet RxNorm: 9542936 1 Tablet(s) PO QHS 12/26/2017 12/25/2017 Inactive losartan 50 mg tablet RxNorm: 451955 TAKE ONE TABLET BY MOUTH DAILY (STARTING 09-09-2017) 09/29/2017 03/27/2018 Inactive Request already responded to by other means (e.g. phone or fax) losartan 50 mg tablet RxNorm: 502631 1 Tablet(s) PO daily 09/27/2017 09/26/2017 Inactive losartan 50 mg tablet RxNorm: 208933 1 Tablet(s) PO daily 09/27/2017 09/28/2017 Inactive Bactrim DS 800 mg-160 mg tablet RxNorm: 709127 1 Tablet(s) PO BID 09/13/2017 09/19/2017 Inactive Kenalog 40 mg/mL suspension for injection RxNorm: 0793440 1 Milliliter(s) Inj 09/07/2017 09/07/2017 Inactive trazodone 50 mg tablet RxNorm: 889449 TAKE ONE TABLET BY MOUTH AT BEDTIME 08/16/2017 02/11/2018 Inactive gabapentin 300 mg capsule RxNorm: 738244 1 Capsule(s) PO BID 08/03/2017 01/29/2018 Inactive Vitamin D3 5,000 unit tablet RxNorm: 044251 TAKE ONE TABLET BY MOUTH DAILY 08/01/2017 12/28/2017 Inactive ketoconazole 2 % topical cream RxNorm: 153344 APPLY TO AFFECTED AREA(S) TWO TIMES A DAY 05/31/2017 06/29/2017 Inactive hydrochlorothiazide 25 mg tablet RxNorm: 285150 TAKE ONE TABLET BY MOUTH DAILY 05/16/2017 02/09/2018 Inactive lisinopril 20 mg tablet RxNorm: 846656 TAKE ONE TABLET BY MOUTH DAILY 05/16/2017 09/06/2017 Inactive ketoconazole 2 % topical cream RxNorm: 396549 1 Application TOP BID 03/29/2017 04/11/2017 Inactive apply to faice-deliver to [facility] please betamethasone dipropionate 0.05 % topical ointment RxNorm: 185722 1 Application TOP BID 03/29/2017 04/11/2017 Inactive apply to arm/chests for itching gabapentin 300 mg capsule RxNorm: 920936 1 Capsule(s) PO BID 03/29/2017 08/02/2017 Inactive trazodone 50 mg tablet RxNorm: 867964 TAKE ONE TABLET BY MOUTH AT BEDTIME 03/28/2017 08/15/2017 Inactive Vesicare 10 mg tablet RxNorm: 078535 TAKE ONE TABLET BY MOUTH EVERY NIGHT AT BEDTIME 03/21/2017 12/26/2017 Inactive Vesicare 10 mg tablet RxNorm: 195358 TAKE ONE TABLET BY MOUTH EVERY NIGHT AT BEDTIME 03/21/2017 06/06/2017 Inactive doxycycline hyclate 100 mg capsule RxNorm: 6538919 1 Capsule(s) PO BID 03/18/2017 03/27/2017 Inactive mupirocin 2 % topical ointment RxNorm: 187025 1 Application TOP BID 03/17/2017 08/27/2018 Inactive doxycycline hyclate 100 mg tablet RxNorm: 656390 1 Tablet(s) PO BID 03/09/2017 03/15/2017 Inactive Take probiotic BID while on ABT doxycycline hyclate 100 mg tablet RxNorm: 936207 1 Tablet(s) PO BID 03/09/2017 03/08/2017 Inactive Take probiotic BID while on ABT meloxicam 15 mg tablet RxNorm: 801073 TAKE ONE TABLET BY MOUTH DAILY 02/10/2017 12/06/2017 Inactive Vitamin D3 5,000 unit tablet RxNorm: 033519 TAKE ONE TABLET BY MOUTH DAILY 02/08/2017 07/31/2017 Inactive Vitamin B-12 1,000 mcg/mL injection solution RxNorm: 992842 INJECT 1ML MONTHLY 01/24/2017 07/22/2017 Inactive lisinopril 20 mg tablet RxNorm: 577666 TAKE ONE TABLET BY MOUTH DAILY 12/13/2016 04/11/2017 Inactive trazodone 50 mg tablet RxNorm: 291703 TAKE ONE TABLET BY MOUTH AT BEDTIME 09/24/2016 03/22/2017 Inactive Vitamin D3 5,000 unit tablet RxNorm: 313679 TAKE ONE TABLET BY MOUTH DAILY 09/20/2016 02/07/2017 Inactive lisinopril 20 mg tablet RxNorm: 333804 TAKE ONE TABLET BY MOUTH DAILY 09/13/2016 12/12/2016 Inactive ketoconazole 2 % topical cream RxNorm: 145378 1 Application TOP BID 08/17/2016 08/30/2016 Inactive deliver to [facility] please Pepcid 20 mg tablet RxNorm: 906419 TAKE ONE TABLET BY MOUTH TWICE A DAY 07/12/2016 12/26/2017 Inactive omega-3 acid ethyl esters 1 gram capsule RxNorm: 783213 3 Capsule(s) PO daily 06/18/2016 12/14/2016 Inactive omega-3 acid ethyl esters 1 gram capsule RxNorm: 170289 3 Capsule(s) PO daily 06/18/2016 06/17/2016 Inactive trazodone 50 mg tablet RxNorm: 503148 TAKE ONE TABLET BY MOUTH AT BEDTIME 06/08/2016 08/06/2016 Inactive tamsulosin 0.4 mg capsule RxNorm: 026222 Capsule(s) TAKE ONE CAPSULE BY MOUTH EVERY EVENING 06/04/2016 12/30/2016 Inactive hydrochlorothiazide 25 mg tablet RxNorm: 109965 TAKE ONE TABLET BY MOUTH DAILY 05/10/2016 05/09/2016 Inactive hydrochlorothiazide 25 mg tablet RxNorm: 092331 TAKE ONE TABLET BY MOUTH DAILY 05/10/2016 02/12/2018 Inactive Pepcid 20 mg tablet RxNorm: 942601 1 Tablet(s) PO BID 03/18/2016 03/17/2016 Inactive Pepcid 20 mg tablet RxNorm: 102538 1 Tablet(s) PO BID 03/18/2016 07/11/2016 Inactive lisinopril 20 mg tablet RxNorm: 702357 TAKE ONE TABLET BY MOUTH DAILY 03/18/2016 08/14/2016 Inactive Vitamin D3 5,000 unit tablet RxNorm: 365328 Tablet(s) TAKE ONE TABLET BY MOUTH DAILY 03/18/2016 09/13/2016 Inactive trazodone 50 mg tablet RxNorm: 020899 TAKE ONE TABLET BY MOUTH AT BEDTIME 03/15/2016 06/07/2016 Inactive Vesicare 10 mg tablet RxNorm: 113848 1 Tablet(s) PO QHS 03/15/2016 02/07/2017 Inactive meloxicam 15 mg tablet RxNorm: 168342 TAKE ONE TABLET BY MOUTH DAILY 03/01/2016 01/24/2017 Inactive Bactrim DS 800 mg-160 mg tablet RxNorm: 543542 1 Tablet(s) PO BID 02/10/2016 02/09/2016 Inactive Bactrim DS 800 mg-160 mg tablet RxNorm: 785673 1 Tablet(s) PO BID 02/10/2016 02/16/2016 Inactive Cipro 500 mg tablet RxNorm: 633263 1 Tablet(s) PO BID 02/06/2016 02/09/2016 Inactive Cipro 500 mg tablet RxNorm: 413842 1 Tablet(s) PO BID 02/06/2016 02/05/2016 Inactive Pen[place]aid 20 mg/gram/actuation (2 %) topical soln in metered- dose pump RxNorm: 7277126 2 pumps TOP BID 01/19/2016 04/19/2016 Inactive tamsulosin 0.4 mg capsule RxNorm: 556369 TAKE ONE CAPSULE BY MOUTH EVERY EVENING 01/12/2016 06/03/2016 Inactive cyanocobalamin (vit B-12) 1,000 mcg/mL injection solution RxNorm: 610968 INJECT 1 ML INTRAMUSCULARLY MONTHLY 01/01/2016 10/26/2016 Inactive Request already responded to by other means (e.g. phone or fax) Vitamin B-12 1,000 mcg/mL injection solution RxNorm: 267868 1 Milliliter(s) Inj monthly 12/24/2015 04/19/2016 Inactive please give syringes for injections Vitamin D3 5,000 unit tablet RxNorm: 036306 TAKE ONE TABLET BY MOUTH DAILY 12/08/2015 03/06/2016 Inactive pantoprazole 40 mg tablet,delayed release RxNorm: 891102 TAKE ONE TABLET BY MOUTH DAILY 12/08/2015 03/17/2016 Inactive trazodone 50 mg tablet RxNorm: 917115 TAKE ONE TABLET BY MOUTH AT BEDTIME 11/10/2015 03/08/2016 Inactive lisinopril 20 mg tablet RxNorm: 030354 TAKE ONE TABLET BY MOUTH DAILY 09/08/2015 03/05/2016 Inactive Vitamin D3 5,000 unit tablet RxNorm: 822348 1 Tablet(s) PO daily 08/12/2015 12/07/2015 Inactive pantoprazole 40 mg tablet,delayed release RxNorm: 082060 1 Tablet(s) PO daily 08/12/2015 12/07/2015 Inactive tamsulosin 0.4 mg capsule RxNorm: 671460 TAKE ONE CAPSULE BY MOUTH EVERY EVENING 07/21/2015 12/17/2015 Inactive trazodone 50 mg tablet RxNorm: 653760 TAKE ONE TABLET BY MOUTH AT BEDTIME 05/09/2015 10/05/2015 Inactive hydrochlorothiazide 25 mg tablet RxNorm: 492830 1 Tablet(s) PO QAM 04/30/2015 04/29/2015 Inactive hydrochlorothiazide 25 mg tablet RxNorm: 298540 TAKE ONE TABLET BY MOUTH DAILY 04/30/2015 02/12/2018 Inactive pantoprazole 40 mg tablet,delayed release RxNorm: 387101 1 Tablet(s) PO daily 04/16/2015 08/11/2015 Inactive meloxicam 15 mg tablet RxNorm: 080187 TAKE ONE TABLET BY MOUTH DAILY 03/03/2015 02/25/2016 Inactive lisinopril 20 mg tablet RxNorm: 636871 1 Tablet(s) PO daily 02/19/2015 09/07/2015 Inactive tamsulosin 0.4 mg capsule RxNorm: 419192 TAKE ONE CAPSULE BY MOUTH EVERY EVENING 01/20/2015 07/18/2015 Inactive cyanocobalamin (vit B-12) 1,000 mcg/mL injection solution RxNorm: 130262 Milliliter(s) INJECT 1ML INTRAMUSCULARLY MONTHLY 12/12/2014 12/22/2014 Inactive trazodone 50 mg tablet RxNorm: 600168 TAKE ONE TABLET BY MOUTH AT BEDTIME 11/14/2014 05/08/2015 Inactive erythromycin 5 mg/gram (0.5 %) eye ointment RxNorm: 414157 1/2 inch OPH QID 11/05/2014 11/14/2014 Inactive acyclovir 800 mg tablet RxNorm: 331670 1 Tablet(s) PO TID 11/05/2014 11/18/2014 Inactive Zofran 4 mg tablet RxNorm: 361532 1 Tablet(s) PO Q4H as needed nausea 11/05/2014 01/03/2015 Inactive Duragesic 12 mcg/hr transdermal patch RxNorm: 231078 1 Patch TD Q72H 11/05/2014 02/04/2015 Inactive Imitrex 100 mg tablet RxNorm: 058479 1 Tablet(s) PO q 12 hours 11/04/2014 04/15/2015 Inactive naproxen 500 mg tablet RxNorm: 935391 1 Tablet(s) PO BID 10/30/2014 11/01/2014 Inactive meloxicam 15 mg tablet RxNorm: 085159 TAKE ONE TABLET BY MOUTH DAILY 10/04/2014 03/02/2015 Inactive Vesicare 5 mg tablet RxNorm: 514212 TAKE ONE TABLET BY MOUTH AT BEDTIME 09/16/2014 07/16/2015 Inactive Vitamin D2 50,000 unit capsule RxNorm: 408967 1 Capsule(s) PO QW 09/06/2014 07/16/2015 Inactive once weekly x 12 weeks tamsulosin ER 0.4 mg capsule,extended release 24 hr RxNorm: 507150 TAKE ONE CAPSULE BY MOUTH EVERY EVENING 06/24/2014 12/20/2014 Inactive tamsulosin ER 0.4 mg capsule,extended release 24 hr RxNorm: 320127 1 Capsule(s) PO QPM 06/24/2014 01/19/2015 Inactive Vitamin D2 50,000 unit capsule RxNorm: 806019 1 Capsule(s) PO QW 05/27/2014 09/05/2014 Inactive once weekly x 12 weeks Vesicare 5 mg tablet RxNorm: 463734 1 Tablet(s) PO QHS 05/23/2014 05/22/2014 Inactive Vesicare 5 mg tablet RxNorm: 036771 1 Tablet(s) PO QHS 05/23/2014 09/15/2014 Inactive trazodone 50 mg tablet RxNorm: 283149 TAKE ONE TABLET BY MOUTH AT BEDTIME 05/13/2014 11/08/2014 Inactive trazodone 50 mg tablet RxNorm: 346868 TAKE ONE TABLET BY MOUTH AT BEDTIME 05/13/2014 11/08/2014 Inactive hydrochlorothiazide 25 mg tablet RxNorm: 384979 1 Tablet(s) PO [facility] 04/18/2014 01/12/2015 Inactive Vitamin D2 50,000 unit capsule RxNorm: 296929 TAKE ONE CAPSULE BY MOUTH ONCE WEEKLY FOR 12 WEEKS 04/09/2014 05/14/2014 Inactive trazodone 50 mg tablet RxNorm: 041629 1 Tablet(s) PO QHS 02/22/2014 05/12/2014 Inactive trazodone 50 mg tablet RxNorm: 606768 1 Tablet(s) PO QHS 02/22/2014 02/21/2014 Inactive Vitamin D2 50,000 unit capsule RxNorm: 969563 TAKE ONE CAPSULE BY MOUTH ONCE WEEKLY FOR 12 WEEKS 02/07/2014 03/06/2014 Inactive meloxicam 15 mg tablet RxNorm: 886352 TAKE ONE TABLET BY MOUTH ONCE A DAY 02/07/2014 08/05/2014 Inactive meloxicam 15 mg tablet RxNorm: 859203 TAKE ONE TABLET BY MOUTH ONCE A DAY 02/07/2014 2014 Inactive clotrimazole 1 % topical cream RxNorm: 735225 1 Application TOP BID 12/25/2013 07/16/2015 Inactive Diflucan 150 mg tablet RxNorm: 970565 1 Tablet(s) PO daily 12/25/2013 12/31/2013 Inactive tamsulosin ER 0.4 mg capsule,extended release 24 hr RxNorm: 657501 1 Capsule(s) PO QPM 11/28/2013 06/23/2014 Inactive cyanocobalamin (vit B-12) 1,000 mcg/mL injection solution RxNorm: 592766 1 Milliliter(s) Inj 11/28/2013 12/12/2014 Inactive Vitamin B-12 1,000 mcg/mL injection solution RxNorm: 763078 1 Milliliter(s) Inj monthly 11/21/2013 02/13/2015 Inactive please give syringes for injections Vitamin D2 50,000 unit capsule RxNorm: 116899 1 Capsule(s) PO QW x 12 weeks 11/21/2013 02/06/2014 Inactive [SAVINGS FOR UNINSURED PATIENTS -- to take addtional 2000 units daily Vitamin B-12 1,000 mcg/mL injection solution RxNorm: 718498 1 Milliliter(s) Inj monthly 11/21/2013 11/20/2013 Inactive meloxicam 15 mg tablet RxNorm: 069030 1 Tablet(s) PO daily 11/20/2013 11/19/2013 Inactive [SAVINGS FOR UNINSURED PATIENTS -- BIN:[id number], PCN: [id number], Group: [id number], ID# [id number], Process claim through Journeys, for questions: . THIS IS NOT INSURANCE.] meloxicam 15 mg tablet RxNorm: 777156 1 Tablet(s) PO daily 11/20/2013 02/06/2014 Inactive [SAVINGS FOR UNINSURED PATIENTS -- BIN:[id number], PCN: [id number], Group: [id number], ID# [id number], Process claim through [employer]neys, for questions: . THIS IS NOT INSURANCE.] meloxicam 15 mg tablet RxNorm: 880205 1 Tablet(s) PO daily 11/20/2013 11/19/2013 Inactive Voltaren 1 % topical gel RxNorm: 575552 4 Application TOP QID apply to back, affected joints four times daily 11/14/2013 11/20/2013 Inactive Iron (ferrous sulfate) 325 mg (65 mg iron) tablet RxNorm: 364457 1 Tablet(s) PO daily No Start Date Active trazodone 50 mg tablet RxNorm: 715592 1 Tablet(s) PO QHS No Start Date Active Vitamin D2 50,000 unit capsule RxNorm: 405526 1 Capsule(s) PO QW No Start Date 05/26/2014 Inactive once weekly x 12 weeks Zithromax Z-Brian 250 mg tablet RxNorm: 806075 1 Tablet(s) PO UD No Start Date 02/06/2018 Inactive Vitamin D2 50,000 unit capsule RxNorm: 359131 1 Capsule(s) PO QW No Start Date 11/20/2013 Inactive gabapentin 300 mg capsule RxNorm: 372184 1 Capsule(s) PO TID No Start Date 03/28/2017 Inactive Vesicare 10 mg tablet RxNorm: 739773 1 Tablet(s) PO QHS No Start Date 03/14/2016 Inactive Toprol XL 25 mg tablet,extended release RxNorm: 242342 1 Tablet(s) PO daily No Start Date 04/19/2018 Inactive Vitamin D3 5,000 unit tablet RxNorm: 541487 1 Tablet(s) PO daily No Start Date 08/11/2015 Inactive Celebrex 200 mg capsule RxNorm: 336885 1 Capsule(s) PO BID No Start Date 07/19/2016 Inactive Imitrex 50 mg tablet RxNorm: 949086 1 Tablet(s) PO now and may repeat up to four times in 24 hours No Start Date 11/03/2014 Inactive Zofran 4 mg tablet RxNorm: 428583 1 Tablet(s) PO Q8 as needed nausea and vomitting No Start Date 10/15/2015 Inactive ranitidine 150 mg tablet RxNorm: 240782 1 Tablet(s) PO BID No Start Date 02/12/2018 Inactive Phenergan 25 mg tablet RxNorm: 033741 1 Tablet(s) PO now No Start Date 04/15/2015 Inactive Tums oral RxNorm: 808725 oral No Start Date 10/15/2015 Inactive Medication Administered Medication Codes Instructions Start Date Status Kenalog 40 mg/mL suspension for injection RxNorm: 4565064 Milliliter 08/28/2018 No longer Active Kenalog 40 mg/mL suspension for injection RxNorm: 4921722 1Milliliter 09/07/2017 No longer Active cyanocobalamin (vit B-12) 1,000 mcg/mL injection solution RxNorm: 224500 1Milliliter 11/28/2013 No longer Active Immunizations Vaccine [...] recently went to an eye doctor in [place]. Reports that he did have hemorrhaging in his right eye which is getting better. headache 04/18/2014 Pt states he recently went to an eye doctor in [place] shortness of breath 02/21/2014 blisters 12/25/2013 insomnia 11/28/2013 back pain 11/14/2013 Results Observation Observation Code Item Item Code Result Date Vitamin D 25 Oh [id number] VITAMIN D, 25 HYDROXY 66.80 ng/mL 03/14/2018 [...] 28.5 pg 03/14/2018 Cbc With Differential Ord2 [place]% 7.6 % 03/14/2018 Cbc With Differential Ord2 [...] 1.28 K/ul 03/14/2018 Cbc With Differential Ord2 [place] ABS# 0.4 K/ul 03/14/2018 Cbc With Differential [...] Lipid Ord30 C/HDL 5.0 Ratio 06/27/2017 %Hba1C Mjo977 % HbA1c 50613- 6 6.2 % 06/27/2017 %Hba1C Vyg438 Gluc Ave 131 mg/dL 06/27/2017 Comp Metabolic Ngw836 NA 140 mEq/L 06/27/2017 Comp Metabolic Nie809 K 4.2 mEq/L 06/27/2017 Comp Metabolic Lfd263 CL 100 mEq/L 06/27/2017 Comp Metabolic Dtl733 CO2 32.0 mEq/L 06/27/2017 Comp Metabolic Tqe902 ANION GAP 12 06/27/2017 Comp Metabolic Bjv491 GLUCOSE 118 mg/dL 06/27/2017 Comp Metabolic Khb455 Creat 1.0 mg/dL 06/27/2017 Comp Metabolic Jxw338 eGFR 82 ml/min/1.73m2 06/27/2017 Comp Metabolic Nni414 BUN 26 mg/dL 06/27/2017 Comp Metabolic Rqh622 B/C Ratio 27.1 Ratio 06/27/2017 Comp Metabolic Apo024 CALCIUM 9.6 mg/dL 06/27/2017 Comp Metabolic Bwf906 ALK PHOS 46 U/L 06/27/2017 Comp Metabolic Frz499 AST(SGOT) 23 U/L 06/27/2017 Comp Metabolic Rsw016 ALT(SGPT) 31 U/L 06/27/2017 Comp Metabolic Npx779 BILI T 0.5 mg/dL 06/27/2017 Comp Metabolic Arv813 ALBUMIN 4.2 g/dL 06/27/2017 Comp Metabolic Nzh493 TPRO 6.6 g/dL 06/27/2017 Comp Metabolic Pdc183 GLOB 2.4 g/dL 06/27/2017 Comp Metabolic Enc086 A/G Ratio 1.7 Ratio 06/27/2017 Comp Metabolic Iks047 Osmo 285 mOsmo 06/27/2017 Cbc With Differential [...] 29.0 pg 10/20/2016 Cbc With Differential Ord2 [place]% 9.0 % 10/20/2016 Cbc With Differential Ord2 [...] 1.33 K/ul 10/20/2016 Cbc With Differential Ord2 [place] ABS# 0.4 K/ul 10/20/2016 Cbc With Differential Ord2 Eos ABS# 0.2 K/ul 10/20/2016 Cbc With Differential Ord2 Baso ABS# 0.0 K/ul 10/20/2016 Comp Metabolic Zyg854 NA 143 mEq/L 10/20/2016 Comp Metabolic Ybo593 K 4.6 mEq/L 10/20/2016 Comp Metabolic Jlw021 CL 104 mEq/L 10/20/2016 Comp Metabolic Izn930 CO2 31.0 mEq/L 10/20/2016 Comp Metabolic Vki503 ANION GAP 13 10/20/2016 Comp Metabolic Njt974 GLUCOSE 117 mg/dL 10/20/2016 Comp Metabolic Awm928 Creat 1.1 mg/dL 10/20/2016 Comp Metabolic Uff301 eGFR 74 ml/min/1.73m2 10/20/2016 Comp Metabolic Rnw296 BUN 27 mg/dL 10/20/2016 Comp Metabolic Sgs146 B/C Ratio 25.7 Ratio 10/20/2016 Comp Metabolic Aum067 CALCIUM 9.3 mg/dL 10/20/2016 Comp Metabolic Ljd402 ALK PHOS 47 U/L 10/20/2016 Comp Metabolic Tcp771 AST(SGOT) 18 U/L 10/20/2016 Comp Metabolic Rpj497 ALT(SGPT) 22 U/L 10/20/2016 Comp Metabolic Cio292 BILI T 0.5 mg/dL 10/20/2016 Comp Metabolic Bsp070 ALBUMIN 3.9 g/dL 10/20/2016 Comp Metabolic Kjm552 TPRO 6.5 g/dL 10/20/2016 Comp Metabolic Zoy317 GLOB 2.6 g/dL 10/20/2016 Comp Metabolic Fvj093 A/G Ratio 1.5 Ratio 10/20/2016 Comp Metabolic Ovm510 Osmo 291 mOsmo 10/20/2016 Tsh Ord6 hTSH II 1.56 uIU/mL 10/20/2016 Lipid Ord30 CHOL 153 mg/dL 10/20/2016 Lipid Ord30 HDL 34.0 mg/dl 10/20/2016 Lipid Ord30 TRIG 123 mg/dL 10/20/2016 Lipid Ord30 LDL 94 mg/dL 10/20/2016 Lipid Ord30 C/HDL 4.5 Ratio 10/20/2016 B12 Jdh306 B12 544.00 pg/ml 10/20/2016 Comp Metabolic Eyn012 NA 138 mEq/L 05/13/2016 Comp Metabolic Tdz278 K 4.2 mEq/L 05/13/2016 Comp Metabolic Tnq018 CL 102 mEq/L 05/13/2016 Comp Metabolic Ymv850 CO2 30.0 mEq/L 05/13/2016 Comp Metabolic Scc718 ANION GAP 10 05/13/2016 Comp Metabolic Zno484 GLUCOSE 113 mg/dL 05/13/2016 Comp Metabolic Rlv146 Creat 1.0 mg/dL 05/13/2016 Comp Metabolic Oai489 eGFR 77 ml/min/1.73m2 05/13/2016 Comp Metabolic Llo050 BUN 26 mg/dL 05/13/2016 Comp Metabolic Kis726 B/C Ratio 25.5 Ratio 05/13/2016 Comp Metabolic Zqn549 CALCIUM 9.7 mg/dL 05/13/2016 Comp Metabolic Icq804 ALK PHOS 51 U/L 05/13/2016 Comp Metabolic Vhb277 AST(SGOT) 17 U/L 05/13/2016 Comp Metabolic Iqt521 ALT(SGPT) 20 U/L 05/13/2016 Comp Metabolic Uuz496 BILI T 0.6 mg/dL 05/13/2016 Comp Metabolic Zuj521 ALBUMIN 4.0 g/dL 05/13/2016 Comp Metabolic Xes758 TPRO 6.6 g/dL 05/13/2016 Comp Metabolic Iec951 GLOB 2.6 g/dL 05/13/2016 Comp Metabolic Fji578 A/G Ratio 1.6 Ratio 05/13/2016 Comp Metabolic Uil039 Osmo 281 mOsmo 05/13/2016 Lipid Ord30 CHOL [...] 29.3 pg 02/11/2016 Cbc With Differential Ord2 [place]% 7.7 % 02/11/2016 Cbc With Differential Ord2 [...] 1.18 K/ul 02/11/2016 Cbc With Differential Ord2 [place] ABS# 0.4 K/ul 02/11/2016 Cbc With Differential Ord2 Eos ABS# 0.1 K/ul 02/11/2016 Cbc With Differential Ord2 Baso ABS# 0.0 K/ul 02/11/2016 Comp Metabolic Yle931 NA 138 mEq/L 02/11/2016 Comp Metabolic Tsf062 K 4.0 mEq/L 02/11/2016 Comp Metabolic Eog697 CL 97 mEq/L 02/11/2016 Comp Metabolic Cwv445 CO2 32.0 mEq/L 02/11/2016 Comp Metabolic Ydw854 ANION GAP 13 02/11/2016 Comp Metabolic Oqw210 GLUCOSE 117 mg/dL 02/11/2016 Comp Metabolic Fnq767 Creat 1.0 mg/dL 02/11/2016 Comp Metabolic Ubd069 eGFR 81 ml/min/1.73m2 02/11/2016 Comp Metabolic Tmw527 BUN 21 mg/dL 02/11/2016 Comp Metabolic Xjv788 B/C Ratio 21.4 Ratio 02/11/2016 Comp Metabolic Ihi253 CALCIUM 9.2 mg/dL 02/11/2016 Comp Metabolic Wnj820 ALK PHOS 48 U/L 02/11/2016 Comp Metabolic Zux141 AST(SGOT) 18 U/L 02/11/2016 Comp Metabolic Rhp349 ALT(SGPT) 22 U/L 02/11/2016 Comp Metabolic Hpg713 BILI T 0.5 mg/dL 02/11/2016 Comp Metabolic Snl869 ALBUMIN 3.9 g/dL 02/11/2016 Comp Metabolic Kgd186 TPRO 6.3 g/dL 02/11/2016 Comp Metabolic Zkf428 GLOB 2.5 g/dL 02/11/2016 Comp Metabolic Cas266 A/G Ratio 1.6 Ratio 02/11/2016 Comp Metabolic Mvo664 Osmo 280 mOsmo 02/11/2016 Lipid Ord30 CHOL 163 mg/dL 02/11/2016 Lipid Ord30 HDL 35.0 mg/dl 02/11/2016 Lipid Ord30 TRIG 200 mg/dL 02/11/2016 Lipid Ord30 LDL 88 mg/dL 02/11/2016 Lipid Ord30 C/HDL 4.7 Ratio 02/11/2016 %Hba1C Rcy264 % HbA1c 96247- 6 6.5 % 02/11/2016 %Hba1C Lkz565 Gluc Ave 140 mg/dL 02/11/2016 Tsh Ord6 hTSH II 2.07 uIU/mL 02/11/2016 B12 Tpw137 B12 563.00 pg/ml 02/11/2016 Culture Urine [id number] URINE CULTURE SEE NOTES 02/10/2016 Culture Urine [id number] Continued Results 02/10/2016 Urine Culture Ucult Complete [...] hours from collection if refrigerated) 11/04/2015 %Hba1C Poy321 % HbA1c 12082- 6 6.4 % 04/16/2015 %Hba1C Tqo365 Gluc Ave 137 mg/dL 04/16/2015 Tsh Ord6 hTSH II 3.33 uIU/mL 02/07/2015 Comp Metabolic Crq920 NA 136 mEq/L 02/07/2015 Comp Metabolic Tji897 K 3.9 mEq/L 02/07/2015 Comp Metabolic Etx834 CL 98 mEq/L 02/07/2015 Comp Metabolic Twi525 CO2 31.0 mEq/L 02/07/2015 Comp Metabolic Tqp988 ANION GAP 11 02/07/2015 Comp Metabolic Tam260 GLUCOSE 139 mg/dL 02/07/2015 Comp Metabolic Rka170 Creat 0.9 mg/dL 02/07/2015 Comp Metabolic Myb548 eGFR 87 ml/min/1.73m2 02/07/2015 Comp Metabolic Dtx834 BUN 20 mg/dL 02/07/2015 Comp Metabolic Mtp098 B/C Ratio 21.7 Ratio 02/07/2015 Comp Metabolic Bjw454 CALCIUM 9.7 mg/dL 02/07/2015 Comp Metabolic Xny107 ALK PHOS 55 U/L 02/07/2015 Comp Metabolic Ila793 AST(SGOT) 20 U/L 02/07/2015 Comp Metabolic Ilc211 ALT(SGPT) 27 U/L 02/07/2015 Comp Metabolic Btj117 BILI T 0.5 mg/dL 02/07/2015 Comp Metabolic Yet631 ALBUMIN 4.3 g/dL 02/07/2015 Comp Metabolic Vmf647 TPRO 6.9 g/dL 02/07/2015 Comp Metabolic Cir757 GLOB 2.6 g/dL 02/07/2015 Comp Metabolic Oip949 A/G Ratio 1.7 Ratio 02/07/2015 Comp Metabolic Ftb944 Osmo 277 mOsmo 02/07/2015 Cbc With Differential [...] Ord2 RDW 14.8 % 02/07/2015 A1C HPLC [id number] A1C HPLC 20900-9 6.0 % 05/23/2014 VIT B 12 [id number] VIT B 12 479 PG/ML 05/23/2014 VIT D TOTL 3925441 VIT D TOTL 29 NG/ML 05/23/2014 Review [...] deformity 06/07/2017 atrophy Full Exam - General 1994 Musculoskeletal [...] abnormalities 11/14/2013 None Full Exam - General 1995 Neurologic deep tendon reflexes Overall: deep tendon [...] 4: G0439 12/27/2017 THER/PROPH/DIAG INJ SC/IM CPT-4: 92331 09/07/2017 TRIAMCINOLONE ACET INJ NOS CPT-4: J3301 09/07/2017 ROUTINE VENIPUNCTURE CPT- 4: 87816 05/23/2014 THER/PROPH/DIAG INJ SC/IM CPT-4: 38464 11/28/2013 VITAMIN B12 INJECTION CPT- 4: J3420 11/28/2013 Vital Signs Date Vital 09/04/2018 Blood Pressure 1: 143/80 Code: 8480-6 BMI: 36.8 Code: 06616-7 Heart Rate 1: 88 bpm Height: 6' SpO2: 93% Weight: 271 lbs 08/28/2018 Blood Pressure 1: 144/72 Code: 8480-6 BMI: 36.8 Code: 50253-9 Heart Rate 1: 65 bpm Height: 6' SpO2: 97% Weight: 271 lbs 08/21/2018 Blood Pressure 1: 110/66 Code: 8480-6 BMI: 36.6 Code: 04697-5 Heart Rate 1: 70 bpm Height: 6' SpO2: 93% Weight: 270 lbs 06/27/2018 Blood Pressure 1: 124/70 Code: 8480-6 BMI: 36.6 Code: 87023-8 Heart Rate 1: 64 bpm Height: 6' SpO2: 96% Weight: 270 lbs 04/20/2018 Blood Pressure 1: 126/74 Code: 8480-6 BMI: 36.6 Code: 41585-4 Heart Rate 1: 60 bpm Height: 6' SpO2: 94% Weight: 270 lbs 03/21/2018 Blood Pressure 1: 138/74 Code: 8480-6 BMI: 36.8 Code: 56544-4 Heart Rate 1: 81 bpm Height: 6' SpO2: 98% Weight: 271 lbs 02/08/2018 Blood Pressure 1: 132/74 Code: 8480-6 BMI: 37.0 Code: 82691-1 Heart Rate 1: 82 bpm Height: 6' SpO2: 97% Weight: 273 lbs 12/27/2017 Blood Pressure 1: 148/78 Code: 8480-6 BMI: 36.3 Code: 22846-5 Heart Rate 1: 78 bpm Height: 6' SpO2: 93% Waist Measure (cm): 117 cm Weight: 268 lbs 12/06/2017 Blood Pressure 1: 122/70 Code: 8480-6 BMI: 36.6 Code: 35331-4 Heart Rate 1: 76 bpm Height: 6' SpO2: 93% Weight: 270 lbs 11/01/2017 BMI: 36.9 Code: 89065-8 Height: 6' Weight: 272 lbs 09/07/2017 Blood Pressure 1: 140/78 Code: 8480-6 BMI: 35.8 Code: 23240-0 Heart Rate 1: 76 bpm Height: 6' SpO2: 98% Weight: 264 lbs 06/07/2017 Blood Pressure 1: 138/86 Code: 8480-6 BMI: 36.3 Code: 29633-8 Heart Rate 1: 66 bpm Height: 6' SpO2: 95% Weight: 268 lbs 05/19/2017 Blood Pressure 1: 152/84 Code: 8480-6 BMI: 36.8 Code: 54219-6 Heart Rate 1: 70 bpm Height: 6' SpO2: 93% Weight: 271 lbs 05/09/2017 Blood Pressure 1: 138/76 Code: 8480-6 BMI: 36.6 Code: 89126-4 Heart Rate 1: 79 bpm Height: 6' SpO2: 93% Weight: 270 lbs 04/25/2017 Blood Pressure 1: 150/80 Code: 8480-6 Heart Rate 1: 58 bpm Height: SpO2: 94% Weight: 2017 Blood Pressure 1: 138/80 Code: 8480-6 BMI: 36.5 Code: 92215-8 Heart Rate 1: 76 bpm Height: 6' SpO2: 96% Weight: 269 lbs 03/29/2017 Blood Pressure 1: 118/68 Code: 8480-6 BMI: 36.9 Code: 75450-5 Heart Rate 1: 61 bpm Height: 6' SpO2: 95% Weight: 272 lbs 03/17/2017 Blood Pressure 1: 140/78 Code: 8480-6 BMI: 36.8 Code: 81996-9 Heart Rate 1: 91 bpm Height: 6' SpO2: 93% Weight: 271 lbs 03/08/2017 Blood Pressure 1: 152/84 Code: 8480-6 BMI: 36.8 Code: 44510-1 Heart Rate 1: 72 bpm Height: 6' SpO2: 92% Temperature: 36.6 (C) / 97.8 (F) Weight: 271 lbs 02/17/2017 Blood Pressure 1: 110/64 Code: 8480-6 BMI: 36.5 Code: 39785-8 Heart Rate 1: 62 bpm Height: 6' SpO2: 96% Weight: 269 lbs 01/18/2017 Blood Pressure 1: 140/80 Code: 8480-6 BMI: 36.5 Code: 84936-5 Heart Rate 1: 62 bpm Height: 6' SpO2: 94% Weight: 269 lbs 10/19/2016 Blood Pressure 1: 120/80 Code: 8480-6 BMI: 35.9 Code: 97583-1 Heart Rate 1: 64 bpm Height: 6' SpO2: 97% Weight: 265 lbs 08/17/2016 Blood Pressure 1: 112/76 Code: 8480-6 BMI: 36.1 Code: 73330-6 Heart Rate 1: 65 bpm Height: 6' SpO2: 97% Weight: 266 lbs 07/20/2016 Blood Pressure 1: 126/78 Code: 8480-6 BMI: 35.5 Code: 76006-8 Heart Rate 1: 60 bpm Height: 6' SpO2: 95% Weight: 262 lbs 04/19/2016 Blood Pressure 1: 132/78 Code: 8480-6 BMI: 35.1 Code: 40621-8 Heart Rate 1: 65 bpm Height: 6' SpO2: 98% Weight: 259 lbs 01/19/2016 Blood Pressure 1: 140/64 Code: 8480-6 BMI: 34.4 Code: 08084-2 Heart Rate 1: 61 bpm Height: 6' SpO2: 97% Weight: 254 lbs 10/16/2015 Blood Pressure 1: 108/66 Code: 8480-6 BMI: 35.3 Code: 40539-2 Heart Rate 1: 65 bpm Height: 6' SpO2: 96% Weight: 260 lbs 07/17/2015 Blood Pressure 1: 136/74 Code: 8480-6 BMI: 35.8 Code: 87868-1 Heart Rate 1: 59 bpm Height: 6' SpO2: 97% Weight: 263 lbs 13 oz 07/03/2015 Weight: 265 lbs 04/16/2015 Blood Pressure 1: 130/82 Code: 8480-6 BMI: 36.1 Code: 33549-4 Heart Rate 1: 7694 bpm Height: 6' SpO2: 94% Weight: 266 lbs 02/19/2015 Blood Pressure 1: 160/90 Code: 8480-6 BMI: 35.8 Code: 09571-2 Heart Rate 1: 78 bpm Height: 6' SpO2: 94% Weight: 264 lbs 11/20/2014 Blood Pressure 1: 140/96 Code: 8480-6 BMI: 34.6 Code: 52245-5 Heart Rate 1: 92 bpm Height: 6' SpO2: 95% Weight: 255 lbs 11/05/2014 Blood Pressure 1: 132/70 Code: 8480-6 BMI: 34.6 Code: 14910-0 Heart Rate 1: 96 bpm Height: 6' SpO2: 98% Weight: 255 lbs 09/19/2014 Blood Pressure 1: 152/86 Code: 8480-6 BMI: 35.8 Code: 51685-6 Heart Rate 1: 82 bpm Height: 6' SpO2: 95% Weight: 264 lbs 07/24/2014 Blood Pressure 1: 142/82 Code: 8480-6 BMI: 34.7 Code: 75656-5 Heart Rate 1: 72 bpm Height: 6' Weight: 256 lbs 05/23/2014 Blood Pressure 1: 150/82 Code: 8480-6 BMI: 33.4 Code: 51920-7 Heart Rate 1: 68 bpm Height: 6' Weight: 246 lbs 04/18/2014 Blood Pressure 1: 132/84 Code: 8480-6 BMI: 33.2 Code: 43651-1 Heart Rate 1: 80 bpm Height: 6' Weight: 245 lbs 02/21/2014 Blood Pressure 1: 138/82 Code: 8480-6 BMI: 32.4 Code: 41690-8 Heart Rate 1: 85 bpm Height: 6' SpO2: 98% Weight: 239 lbs 12/25/2013 Blood Pressure 1: 146/80 Code: 8480-6 BMI: 30.5 Code: 76724-0 Heart Rate 1: 100 bpm Height: 6' Weight: 225 lbs 11/28/2013 Blood Pressure 1: 120/64 Code: 8480-6 BMI: 30.4 Code: 74427-5 Heart Rate 1: 68 bpm Height: 6' Weight: 224 lbs 11/14/2013 Blood Pressure 1: 124/80 Code: 8480-6 BMI: 30.0 Code: 27710-9 Heart Rate 1: 76 bpm Height: 6' [...] not bring in readings 08/21/2018 -Checked at [facility] Pertinent Findings Denies dizziness 08/21/2018 None Pertinent [...] Maxitrol and Polytrim seeing eye dr in [place]. Reports eye still feels irritated. headache Quality [...] Maxitrol and Polytrim seeing eye dr in [place]. Reports eye still feels irritated. headache Quality [...] data Encounters Encounter Performer Location Codes Date EST. PATIENT, LEVEL II Diagnosis: Rash and other nonspecific skin eruption[ICD10: R21] [facility] CPT-4: 61904 09/04/2018 ([id number]) 90898 EST. PATIENT, LEVEL III Diagnosis: Rash and other nonspecific skin eruption[ICD10: R21] Diagnosis: Other pruritus[ICD10: L29.8] [facility] CPT-4: 05913 08/28/2018 ([id number]) 78214 EST. PATIENT, LEVEL IV Diagnosis: Essential (primary) hypertension[ICD10: I10] Diagnosis: Pain in right shoulder[ICD10: M25.511] Diagnosis: Muscle weakness (generalized)[ICD10: M62.81] Quyen Long MD, [facility] CPT-4: 52123 08/21/2018 62237 EST. PATIENT, LEVEL III Diagnosis: Tinea barbae and tinea capitis[ICD10: B35.0] Glory Long MD, [facility] CPT-4: 90585 06/27/2018 ([id number]) 38732 EST. 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 PATIENT, LEVEL III Diagnosis: Acute bronchitis due to other specified organisms[ICD10: J20.8] Antoinette Long MD, [facility] CPT-4: 57792 02/08/2018 ([id number]) 59515 EST. 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 PATIENT, LEVEL III Diagnosis: Essential (primary) hypertension[ICD10: I10] Diagnosis: Localized edema[ICD10: R60.0] Diagnosis: Cellulitis of left lower limb[ICD10: L03.116] Quyen Long MD, [facility] CPT-4: 43652 06/07/2017 ([id number]) 65284 EST. 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 PATIENT, LEVEL II Diagnosis: Rash and other nonspecific skin eruption[ICD10: R21] Glory Long MD, [facility] CPT-4: 83514 05/09/2017 ([id number]) 53886 EST. PATIENT, LEVEL II Diagnosis: Rash and other nonspecific skin eruption[ICD10: R21] Glory Long MD, [facility] CPT-4: 96134 04/25/2017 ([id number]) 00408 EST. PATIENT, LEVEL III Diagnosis: Cellulitis of left lower limb[ICD10: L03.116] Diagnosis: Rash and other nonspecific skin eruption[ICD10: R21] Glory Long MD, [facility] CPT-4: 62115 2017 ([id number]) 06100 EST. PATIENT, LEVEL III Diagnosis: Cellulitis of left lower limb[ICD10: L03.116] Diagnosis: Rash and other nonspecific skin eruption[ICD10: R21] Glory Long MD, [facility] CPT-4: 01500 03/29/2017 55392 EST. PATIENT, LEVEL IV Diagnosis: Cellulitis of left lower limb[ICD10: L03.116] Antoinette Long MD, [facility] CPT-4: 04566 03/17/2017 ([id number]) 85923 EST. PATIENT, LEVEL III Diagnosis: Rash and other nonspecific skin eruption[ICD10: R21] Glory Long MD, [facility] CPT-4: 57100 03/08/2017 56205 EST. PATIENT, LEVEL IV Diagnosis: Essential (primary) hypertension[ICD10: I10] Diagnosis: Muscle weakness (generalized)[ICD10: M62.81] Diagnosis: Body mass index (BMI) 36.0-36.9, adult[ICD10: Z68.36] Diagnosis: Family history of ischemic heart disease and other diseases of the circulatory system[ICD10: Z82.49] Antoinette Long MD, [facility] CPT-4: 19327 02/17/2017 ([id number]) 91322 EST. PATIENT, LEVEL IV Diagnosis: Essential (primary) hypertension[ICD10: I10] Diagnosis: Muscle weakness (generalized)[ICD10: M62.81] Quyen Long MD, [facility] CPT-4: 61950 01/18/2017 ([id number]) 27478 EST. 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 PATIENT, LEVEL III Diagnosis: Pain in left shoulder[ICD10: M25.512] Diagnosis: Rash and other nonspecific skin eruption[ICD10: R21] Glory Long MD, [facility] CPT-4: 94307 08/17/2016 ([id number]) 58586 EST. PATIENT, LEVEL IV Diagnosis: Essential (primary) hypertension[ICD10: I10] Diagnosis: Pain in left shoulder[ICD10: M25.512] Quyen Long MD, [facility] CPT-4: 82053 07/20/2016 ([id number]) 31251 EST. 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 PATIENT, LEVEL IV Diagnosis: Essential (primary) hypertension[ICD10: I10] Diagnosis: Other abnormal glucose[ICD10: R73.09] Diagnosis: Gastro-esophageal reflux disease without esophagitis[ICD10: K21.9] Diagnosis: Obesity, unspecified[ICD10: E66.9] Quyen Long MD, [facility] CPT- 4: 35645 04/16/2015 ([id number]) 60784 EST. PATIENT, LEVEL IV Diagnosis: ESSENTIAL HYPERTENSION[ICD9: 401.9] Diagnosis: OBESITY[ICD9: 278.00] Diagnosis: Post-polio limb muscle weakness[ICD9: 728.87] Quyen Long MD, [facility] CPT-4: 63251 02/19/2015 ([id number]) 44649 EST. PATIENT, LEVEL IV Diagnosis: Shingles outbreak[ICD9: 053.9] Diagnosis: ESSENTIAL HYPERTENSION[ICD9: 401.9] Diagnosis: Earache[ICD9: 388.70] Quyen Long MD, [facility] CPT-4: 68385 11/20/2014 ([id number]) 20313 EST. PATIENT, LEVEL III Diagnosis: Shingles outbreak[ICD9: 053.9] Diagnosis: Face pain[ICD9: 784.0] Diagnosis: Pain, eye, right[ICD9: 379.91] Quyen Long MD, [facility] CPT-4: 91781 11/05/2014 ([id number]) 72538 EST. PATIENT, LEVEL V Diagnosis: Post-polio limb muscle weakness[ICD9: 728.87] Diagnosis: Post-polio syndrome[ICD9: 138] Diagnosis: Leg weakness[ICD9: 729.89] Diagnosis: Weakness[ICD9: 780.79] Diagnosis: Foot drop[ICD9: 736.79] Quyen Long MD, [facility] CPT-4: 48992 09/19/2014 ([id number]) 45111 EST. PATIENT, LEVEL IV Diagnosis: ESSENTIAL HYPERTENSION[ICD9: 401.9] Diagnosis: Carotid bruit[ICD9: 785.9] Diagnosis: Seborrheic dermatitis[ICD9: 690.10] Diagnosis: Post-polio syndrome[ICD9: 138] Diagnosis: Vitamin D deficiency[ICD9: 268.9] Queyn Long MD, [facility] CPT- 4: 50410 07/24/2014 ([id number]) 25435 EST. PATIENT, LEVEL IV Diagnosis: Neck pain[ICD9: 723.1] Diagnosis: Post-polio syndrome[ICD9: 138] Diagnosis: Vitamin D deficiency[ICD9: 268.9] Diagnosis: Vitamin B12 deficiency[ICD9: 266.2] Diagnosis: Nocturia[ICD9: 788.43] Diagnosis: Leg weakness[ICD9: 729.89] Diagnosis: Elevated blood sugar[ICD9: 790.29] Glory Long MD, [facility] CPT- 4: 44920 05/23/2014 ([id number]) 73921 EST. PATIENT, LEVEL IV Diagnosis: ESSENTIAL HYPERTENSION[ICD9: 401.9] Diagnosis: HEADACHE[ICD9: 784.0] Diagnosis: EDEMA[ICD9: 782.3] Quyen Long MD, [facility] CPT-4: 76227 04/18/2014 98353 EST. PATIENT, LEVEL IV Diagnosis: Insomnia[ICD9: 780.52] Diagnosis: Post-polio syndrome[ICD9: 138] Diagnosis: Vitamin D deficiency[ICD9: 268.9] Diagnosis: Nocturnal hypoxemia[ICD9: 799.02] Glory Long MD, [facility] CPT- 4: 50181 02/21/2014 ([id number]) 93790 EST. PATIENT, LEVEL III Diagnosis: Tinea pedis[ICD9: 110.4] Diagnosis: Post-polio limb muscle weakness[ICD9: 728.87] Glory Long MD, [facility] CPT-4: 20269 12/25/2013 ([id number]) 46111 EST. PATIENT, LEVEL IV Diagnosis: Insomnia[ICD9: 780.52] Diagnosis: Vitamin B12 deficiency (dietary) anemia[ICD9: 281.1] Diagnosis: VITAMIN D DEFICIENCY[ICD9: 268.9] Diagnosis: Weakness[ICD9: 780.79] Quyen Long MD, [facility] CPT-4: 26916 11/28/2013 ([id number]) OFFICE/OUTPATIENT VISIT NEW Diagnosis: Post-polio limb muscle weakness[ICD9: 728.87] Diagnosis: Post-polio syndrome[ICD9: 138] Diagnosis: Insomnia[ICD9: 780.52] Diagnosis: Arrhythmia[ICD9: 427.9] Quyen Long MD, [facility] CPT-4: 73856 11/14/2013 Plan of Care Planned Activity Notes Codes Status Date Visit Plan: Rash-resolved -continue topical betamethasone cream as ordered-call if rash returns 09/04/2018 Appointment: Glory Dalton WPtel: [address] [place], [place] [phone] (30 min) Complex 09/04/2018 Patient Education: Patient Medication Summary Completed 09/04/2018 Visit Plan: Rash-culture today in the office -kenalog injection for acute symptoms -start prednisone tomorrow- treat with abx if indicated on culture- follow up in 1 week, sooner if needed 08/28/2018 Appointment: Glory Dalton WPtel: [phone] [phone] (30 min) Complex 08/28/2018 Patient Education: Patient Medication Summary Completed 08/28/2018 Appointment: Quyen Long WPtel: [phone] [facility] (15 min) Moderate 08/24/2018 Visit [...] Post-Polio syndrome. 08/21/2018 Appointment: Quyen Long WPtel: [facility]0 [facility] (15 min) Moderate 08/21/2018 Patient Education: Patient Medication Summary Completed 08/21/2018 Patient Education: Hypertension Completed 08/21/2018 Visit Plan: Tinea barbae -rx for ketoconazole written and instructed patient on use -instructed patient to call or return to clinic if symptoms do not resolve or if any worse. Patient verbalized understanding of plan. 06/27/2018 Appointment: [phone] [phone] [place] (30 min) Complex 06/27/2018 Patient Education: Patient [...] his shoulder. 04/20/2018 Appointment: Quyen Long WPtel: [phone] [facility] (15 min) Moderate 04/20/2018 Patient Education: Patient Medication Summary Completed 04/20/2018 Patient Education: Hypertension Completed 04/20/2018 Appointment: Quyen Long WPtel: [facility] (15 min) Moderate 04/11/2018 Visit Plan: Post polio syndrome -right leg weakness -patient needs repair and adjustment of his right leg brace that helps with his symptoms of instability and weakness and allows him to ambulate -will send rx to [place] [facility] 03/21/2018 Appointment: Glory Dalton WPtel: [facility]4 [phone] (15 min) Moderate 03/21/2018 Patient Education: [...] acutely worsen. 02/08/2018 Appointment: Antoinette Arndt WPtel: [facility]2 [facility] (30 min) Complex 02/08/2018 Patient Education: Patient [...] Completed 12/27/2017 Appointment: Quyen Long WPtel: [phone] [facility] (15 min) Moderate 12/08/2017 Visit Plan: Hypertension [...] shoulder injection. 12/06/2017 Appointment: [phone] (15 min) Moderate 12/06/2017 Patient Education: Patient Medication Summary Completed 12/06/2017 Appointment: Nurse Visit 11/01/2017 Patient Education: Patient Medication Summary Completed 11/01/2017 Visit Plan: Post polio syndrome - back-up brace for right leg - rx for edi to [facility]. Junaid has instability of his knees due to [...] weight check. 09/07/2017 Appointment: Quyen Long WPtel: [facility]8 [facility] (15 min) Moderate 09/07/2017 Patient Education: Patient [...] lower leg. 06/07/2017 Appointment: Quyen Long WPtel: [address] [place], [place] [address] (15 min) Moderate 06/07/2017 Patient Education: Patient [...] compression recommended. 05/19/2017 Appointment: Quyen Long WPtel: [address] [place], [place] [phone] (15 min) Moderate 05/19/2017 Patient Education: Patient Medication Summary Completed 05/19/2017 Patient Education: Obesity Completed 05/19/2017 Patient Education: Hypertension Completed 05/19/2017 Visit Plan: Rash-left cnwg-ftdqjnkb-ellfrtbvka patient to continue using ketoconazole plus betamethasone equal parts and increase to TID-leave foot open to air as much as possible-follow up in 2 weeks, sooner if needed. 05/09/2017 Appointment: Glory Dalton WPtel: [facility]6 [phone] (30 min) Complex 05/09/2017 Patient Education: Patient Medication Summary Completed 05/09/2017 Patient Education: Obesity Completed 05/09/2017 Visit Plan: Rash-left foot-Dr Long in to evaluate rash-instructed patient to start using ketoconazole plus betamethasone equal parts TID -follow up in 2 weeks, sooner if needed. 04/25/2017 Appointment: Glory Dalton WPtel: [address] [place], [place] [phone] (30 min) Complex 04/25/2017 Patient Education: Patient Medication Summary Completed 04/25/2017 Visit Plan: Cellulitis of left foot-no longer draining-no open areas-no excoriation-slightly red-okay to d/c all treatments-keep clean and monitor-call if redness does not resolve Rash-resolved 2017 Appointment: Glory Dalton WPtel: [facility]8 [phone] (30 min) Complex 2017 Patient Education: Patient Medication Summary Completed 2017 Patient Education: Obesity Completed 2017 Visit Plan: Cellulitis-left foot-MSSA nsikxzsw-nqoztykis-zhair air in the evening-continue bactroban ointment twice daily-stop using alcohol on foot-no papertowels or abrasives to foot Eooc-jjmg-yr for betamethasone provided and instructed on use 03/29/2017 Appointment: Glory Dalton WPtel: [facility]5 [facility] [place] [address] (30 min) Complex 03/29/2017 Patient Education: Patient Medication Summary Completed 03/29/2017 Patient Education: Obesity Completed 03/29/2017 Appointment: Glory Dalton WPtel: [facility]5 [phone] (30 min) Complex 03/22/2017 Visit Plan: Cellulitis [...] warmth, discharge. 03/17/2017 Appointment: Antoinette Arndt WPtel: [facility]5 [facility] (30 min) Complex 03/17/2017 Patient Education: Patient [...] the break. 01/18/2017 Appointment: Quyen Long WPtel: [facility]5 [facility] (15 min) Moderate 01/18/2017 Patient Education: [...] and weakness. 10/19/2016 Appointment: Quyen Long WPtel: [facility]5 [facility] (15 min) Moderate 10/19/2016 Patient Education: Patient Medication Summary Completed 10/19/2016 Patient Education: Obesity Completed 10/19/2016 Visit Plan: Left shoulder pain-hospital f/u recent shoulder surgery with Dr Wilson-doing well-sees Dr Wilson this afternoon for suture removal-pain improved Gdtf-yaci-avsxtum fungal infection-will treat with ket oconazole -follow up in 2 weeks 08/17/2016 Appointment: Glory Dalton WPtel: [phone] [phone] (30 min) Complex 08/17/2016 Patient Education: [...] 07/20/2016 [phone] (15 min) Moderate 07/20/2016 Patient Education: Patient [...] continue exercising for strengthening. 04/19/2016 Appointment: Quyen oLng WPtel: [phone] [facility] (15 min) Moderate 04/19/2016 Patient Education: [...] up appointment. 01/19/2016 Appointment: Quyen Long WPtel: [address] [place], [place] [id number] (15 min) Moderate 01/19/2016 Patient Education: Patient Medication Summary Completed 01/19/2016 Patient Education: Obesity Completed 01/19/2016 Patient Education: Hypertension Completed 01/19/2016 Referral: Dr Mccauley Referral Completed 11/11/2015 Care Plan: Referral Order SNOMED-CT : [id number] Pending 11/03/2015 Visit Plan: Hypertension - well [...] with injection 10/16/2015 Appointment: Quyen Long WPtel: [address] [place], [place] [id number] (15 min) Moderate 10/16/2015 Patient Education: Patient [...] center - 02/19/2015 Appointment: Quyen Long WPtel: [address] [place], [place] [id number] (15 min) Moderate 02/19/2015 Patient Education: Patient [...] drops. 11/20/2014 [facility]ment[phone] Follow up 11/20/2014 Patient Education: Patient Medication [...] ESME. 11/05/2014 App[facility]ment[phone] [facility] (15 min) Moderate 11/05/2014 Patient Education: Patient [...] to participate in activities outside of the retirement. He has a family that would like [...] foot. 09/19/2014 Appointment: [phone] [facility] [place] Follow up 09/19/2014 Patient Education: Patient Medication [...] deficiency - recommended repeat of vitamin d [id number] weekly x 12 weeks and increase vitamin d to 5000 units daily. 07/24/2014 Appointment: [phone] [facility] [place] Follow up 07/24/2014 Patient Education: Patient [...] B12 level 05/23/2014 Appointment: Glory Dalton WPtel: [phone] [phone] Follow up 05/23/2014 Patient Education: Patient Medication Summary Completed 05/23/2014 Patient Education: .Cervicalgia Neck Pain Completed 05/23/2014 Appointment: Quyen Long WPtel: [facility] [place] Follow up 05/22/2014 Visit Plan: Edema [...] at home. 04/18/2014 Appointment: Quyen Long WPtel: [facility] Follow up 04/18/2014 Patient Education: Patient Medication Summary Completed 04/18/2014 Patient Education: Hypertension Completed 04/18/2014 Appointment: Quyen Long WPtel: [facility] [place] Follow up 02/27/2014 Visit Plan: Insomnia - Pt has been advised to increase the light in the house during the day, and start dimming the lights during the evening hours. Pt has been advised to cut out caffeine after 5pm. Daytime napping worsens night time insomnia. START TRAZODONE AND MONITOR SYMPTOMS. Vitamin D yuzizouuos-thfldanh-wvfxzpcp vitamin D 50,000 units weekly for 12 additional weeks. Hypoxemia-continue night time oxygen 02/21/2014 Appointment: Sha Glory WPtel: [phone] [phone] Follow up 02/21/2014 Patient Education: Patient Medication [...] on mobic. 11/28/2013 Appointment: Quyen Long WPtel: [facility] Follow up 11/28/2013 Patient Education: Patient Medication [...] oxygen study. 11/14/2013 Appointment: Quyen Long WPtel: [facility] New Patient 11/14/2013 Patient Education: Patient Medication [...] deficiency - recommended repeat of vitamin d [id number] weekly x 12 weeks and increase vitamin d to 5000 units daily. . Post polio syndrome - back-up brace [...] in pain, worsening redness, warmth, discharge. . 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 He has a family that would like [...] hip/thigh, and lower leg and foot. . Cellulitis - left foot - The patient was instructed in appropriate wound care. The patient was instructed to use the antibiotic ointment as per RX. The patient is to call for any change in symptoms, increase in size of the lesion, increase in pain, worsening redness, warmth, discharge. . pt down one pound . Hypertension - well controlled - continue with current medications, continue with no added salt diet. Pt has been encouraged to exercise daily. The pt has been advised to call the office if there are any acute concerns about change in blood pressure readings at home. 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 . Post-polio syndrome - with muscle weakness/wasting [...] and dressings to lower leg. . Rash-left ewyi-nnzygjuv-sfcirokywp patient to continue using ketoconazole plus betamethasone [...] START TRAZODONE AND MONITOR SYMPTOMS. Vitamin D donpzceuem-ihveqsth-oquzdnor vitamin D 50,000 units weekly for 12 [...] up in 10 days . Cellulitis-left foot-MSSA jllcswtj-ohlqnfrzh-lbzhh air in the evening-continue bactroban ointment twice daily-stop using alcohol on foot-no papertowels or abrasives to foot Gsre-xtmb-px for betamethasone provided and instructed on use [...] an appt with addie for shoulder injection. KENALOG INJECTION TODAY PREDNISONE -START TOMORROW BETAMETHASONE [...] Wilson this afternoon for suture removal-pain improved Idgv-ecpn-fhbtrid fungal infection-will treat with ketoconazole -follow up [...] in blood pressure readings at home. . Insomnia - Pt has been advised [...] him to ambulate -will send rx to [facility] . Hypertension - well controlled - [...]
--- OUTSIDE RECORDS SUMMARY | 2018-11-10 15:22 | XMS REPORT | CCD ---
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 Name Role Phone PP Unavailable CCM Unavailable Summary Purpose Interface Exchange Insurance Providers Payer name Policy type / Coverage type Covered alliance party ID Effective Begin Date Effective End Date WPS Medicare Part B Medicare Part B [id number] 2017 Unknown [facility] Medicare Part B [id number] 2017 Unknown Family history Grandmother Diagnosis Age [...] Description Effective Dates Tobacco history SNOMED CT: 7249036 Former smoker 1.5 pack daily x 45 years 12/27/2017 Marital status Unknown 10/19/2016 Living arrangements Unknown Assisted Living [facility] 04/19/2016 Number of children Unknown 1 son - lives in [place] 11/14/2013 Employment Unknown 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 11/14/[address]: 160336722 Never drinks alcohol 11/14/2013 Has the patient [...] Start Date Stop Date Status Fill Instructions gabapentin 300 mg capsule RxNorm: 474772 TAKE ONE CAPSULE BY MOUTH TWICE A DAY 09/18/2018 03/16/2019 Active Kenalog 40 mg/mL suspension for injection RxNorm: 6914379 Milliliter(s) Inj 08/28/2018 08/28/2018 Inactive ranitidine 150 mg tablet RxNorm: 920705 1 Tablet(s) PO daily 08/21/2018 No Stop Date Active ketoconazole 2 % topical cream RxNorm: 549860 1 Application TOP BID to left ear and left arm, right arm, left - a total of 1 gram bid 08/21/2018 12/18/2018 Active ketoconazole 2 % shampoo RxNorm: 350767 APPLY TO AFFECTED AREA(S) TWICE WEEKLY UNTIL RESOLVED 08/14/2018 09/10/2018 Inactive cetirizine 10 mg tablet RxNorm: 7756376 TAKE ONE TABLET BY MOUTH EVERY NIGHT AT BEDTIME 08/07/2018 03/04/2019 Active trazodone 50 mg tablet RxNorm: 214360 TAKE ONE TABLET BY MOUTH AT BEDTIME 07/18/2018 11/14/2018 Active ketoconazole 2 % shampoo RxNorm: 072003 1 TOP BIW 06/27/2018 08/13/2018 Inactive Vitamin B-12 1,000 mcg/mL injection solution RxNorm: 349364 INJECT 1ML MONTHLY 06/19/2018 11/15/2018 Active Request already responded to by other means (e.g. phone or fax) Vitamin B-12 1,000 mcg/mL injection solution RxNorm: 580890 Milliliter(s) INJECT 1ML MONTHLY 06/15/2018 06/18/2018 Inactive Zithromax Z-Brian 250 mg tablet RxNorm: 291822 1 Tablet(s) PO UD 06/14/2018 08/20/2018 Inactive zpack as directed x1 tamsulosin 0.4 mg capsule RxNorm: 335020 TAKE ONE CAPSULE BY MOUTH EVERY EVENING 06/12/2018 01/07/2019 Active gabapentin 300 mg capsule RxNorm: 608321 TAKE ONE CAPSULE BY MOUTH TWICE A DAY 05/31/2018 09/17/2018 Inactive losartan 50 mg tablet RxNorm: 009187 TAKE ONE TABLET BY MOUTH DAILY 05/01/2018 09/27/2018 Active Toprol XL 50 mg tablet,extended release RxNorm: 705590 1 Tablet(s) PO daily 04/20/2018 No Stop Date Active Vitamin D3 5,000 unit tablet RxNorm: 760508 TAKE ONE TABLET BY MOUTH DAILY 04/05/2018 02/28/2019 Active trazodone 50 mg tablet RxNorm: 422707 TAKE ONE TABLET BY MOUTH AT BEDTIME 02/27/2018 07/17/2018 Inactive hydrochlorothiazide 25 mg tablet RxNorm: 027678 TAKE ONE TABLET BY MOUTH DAILY 02/13/2018 11/09/2018 Active ranitidine 150 mg tablet RxNorm: 891622 1 Tablet(s) PO BID 02/13/2018 08/20/2018 Inactive albuterol sulfate 2.5 mg/3 mL (0.083 %) solution for nebulization RxNorm: 045540 3 Milliliter(s) INH UD 02/08/2018 No Stop Date Active please deliver all of his prescriptions thank you cefdinir 300 mg capsule RxNorm: 935979 1 Capsule(s) PO BID 02/08/2018 02/17/2018 Inactive prednisone 20 mg tablet RxNorm: 222987 2 Tablet(s) PO daily 02/08/2018 02/12/2018 Inactive fluticasone 50 mcg/actuation nasal spray,suspension RxNorm: 2046806 1 [place] NASAL BID 02/07/2018 06/06/2018 Inactive fluticasone 50 mcg/actuation nasal spray,suspension RxNorm: 0088640 1 [place] NASAL BID 02/07/2018 02/06/2018 Inactive Zithromax Z-Brian 250 mg tablet RxNorm: 109802 1 Tablet(s) PO UD 02/07/2018 03/14/2018 Inactive zpack as directed tamsulosin 0.4 mg capsule RxNorm: 301779 TAKE ONE CAPSULE BY MOUTH EVERY EVENING 01/13/2018 06/11/2018 Inactive Vitamin D3 5,000 unit tablet RxNorm: 767551 TAKE ONE TABLET BY MOUTH DAILY 01/02/2018 04/04/2018 Inactive cetirizine 10 mg tablet RxNorm: 5938548 TAKE ONE TABLET BY MOUTH EVERY NIGHT AT BEDTIME 01/02/2018 04/01/2018 Inactive cetirizine 10 mg tablet RxNorm: 3109952 1 Tablet(s) PO QHS 12/26/2017 01/01/2018 Inactive cetirizine 10 mg tablet RxNorm: 7801406 1 Tablet(s) PO QHS 12/26/2017 12/25/2017 Inactive losartan 50 mg tablet RxNorm: 889516 TAKE ONE TABLET BY MOUTH DAILY (STARTING 09-09-2017) 09/29/2017 03/27/2018 Inactive Request already responded to by other means (e.g. phone or fax) losartan 50 mg tablet RxNorm: 296081 1 Tablet(s) PO daily 09/27/2017 09/26/2017 Inactive losartan 50 mg tablet RxNorm: 601770 1 Tablet(s) PO daily 09/27/2017 09/28/2017 Inactive Bactrim DS 800 mg-160 mg tablet RxNorm: 427867 1 Tablet(s) PO BID 09/13/2017 09/19/2017 Inactive Kenalog 40 mg/mL suspension for injection RxNorm: 9461259 1 Milliliter(s) Inj 09/07/2017 09/07/2017 Inactive trazodone 50 mg tablet RxNorm: 467771 TAKE ONE TABLET BY MOUTH AT BEDTIME 08/16/2017 02/11/2018 Inactive gabapentin 300 mg capsule RxNorm: 214933 1 Capsule(s) PO BID 08/03/2017 01/29/2018 Inactive Vitamin D3 5,000 unit tablet RxNorm: 921394 TAKE ONE TABLET BY MOUTH DAILY 08/01/2017 12/28/2017 Inactive ketoconazole 2 % topical cream RxNorm: 671139 APPLY TO AFFECTED AREA(S) TWO TIMES A DAY 05/31/2017 06/29/2017 Inactive hydrochlorothiazide 25 mg tablet RxNorm: 995266 TAKE ONE TABLET BY MOUTH DAILY 05/16/2017 02/09/2018 Inactive lisinopril 20 mg tablet RxNorm: 143523 TAKE ONE TABLET BY MOUTH DAILY 05/16/2017 09/06/2017 Inactive ketoconazole 2 % topical cream RxNorm: 361673 1 Application TOP BID 03/29/2017 04/11/2017 Inactive apply to faice-deliver to [facility] please betamethasone dipropionate 0.05 % topical ointment RxNorm: 624806 1 Application TOP BID 03/29/2017 04/11/2017 Inactive apply to arm/chests for itching gabapentin 300 mg capsule RxNorm: 404046 1 Capsule(s) PO BID 03/29/2017 08/02/2017 Inactive trazodone 50 mg tablet RxNorm: 148873 TAKE ONE TABLET BY MOUTH AT BEDTIME 03/28/2017 08/15/2017 Inactive Vesicare 10 mg tablet RxNorm: 837336 TAKE ONE TABLET BY MOUTH EVERY NIGHT AT BEDTIME 03/21/2017 12/26/2017 Inactive Vesicare 10 mg tablet RxNorm: 679742 TAKE ONE TABLET BY MOUTH EVERY NIGHT AT BEDTIME 03/21/2017 06/06/2017 Inactive doxycycline hyclate 100 mg capsule RxNorm: 2358715 1 Capsule(s) PO BID 03/18/2017 03/27/2017 Inactive mupirocin 2 % topical ointment RxNorm: 115744 1 Application TOP BID 03/17/2017 08/27/2018 Inactive doxycycline hyclate 100 mg tablet RxNorm: 090065 1 Tablet(s) PO BID 03/09/2017 03/15/2017 Inactive Take probiotic BID while on ABT doxycycline hyclate 100 mg tablet RxNorm: 691524 1 Tablet(s) PO BID 03/09/2017 03/08/2017 Inactive Take probiotic BID while on ABT meloxicam 15 mg tablet RxNorm: 844058 TAKE ONE TABLET BY MOUTH DAILY 02/10/2017 12/06/2017 Inactive Vitamin D3 5,000 unit tablet RxNorm: 782033 TAKE ONE TABLET BY MOUTH DAILY 02/08/2017 07/31/2017 Inactive Vitamin B-12 1,000 mcg/mL injection solution RxNorm: 939585 INJECT 1ML MONTHLY 01/24/2017 07/22/2017 Inactive lisinopril 20 mg tablet RxNorm: 882512 TAKE ONE TABLET BY MOUTH DAILY 12/13/2016 04/11/2017 Inactive trazodone 50 mg tablet RxNorm: 166499 TAKE ONE TABLET BY MOUTH AT BEDTIME 09/24/2016 03/22/2017 Inactive Vitamin D3 5,000 unit tablet RxNorm: 891931 TAKE ONE TABLET BY MOUTH DAILY 09/20/2016 02/07/2017 Inactive lisinopril 20 mg tablet RxNorm: 375000 TAKE ONE TABLET BY MOUTH DAILY 09/13/2016 12/12/2016 Inactive ketoconazole 2 % topical cream RxNorm: 474523 1 Application TOP BID 08/17/2016 08/30/2016 Inactive deliver to [place] please Pepcid 20 mg tablet RxNorm: 322659 TAKE ONE TABLET BY MOUTH TWICE A DAY 07/12/2016 12/26/2017 Inactive omega-3 acid ethyl esters 1 gram capsule RxNorm: 836138 3 Capsule(s) PO daily 06/18/2016 12/14/2016 Inactive omega-3 acid ethyl esters 1 gram capsule RxNorm: 560370 3 Capsule(s) PO daily 06/18/2016 06/17/2016 Inactive trazodone 50 mg tablet RxNorm: 267743 TAKE ONE TABLET BY MOUTH AT BEDTIME 06/08/2016 08/06/2016 Inactive tamsulosin 0.4 mg capsule RxNorm: 163578 Capsule(s) TAKE ONE CAPSULE BY MOUTH EVERY EVENING 06/04/2016 12/30/2016 Inactive hydrochlorothiazide 25 mg tablet RxNorm: 415348 TAKE ONE TABLET BY MOUTH DAILY 05/10/2016 05/09/2016 Inactive hydrochlorothiazide 25 mg tablet RxNorm: 342207 TAKE ONE TABLET BY MOUTH DAILY 05/10/2016 02/12/2018 Inactive Pepcid 20 mg tablet RxNorm: 892551 1 Tablet(s) PO BID 03/18/2016 03/17/2016 Inactive Pepcid 20 mg tablet RxNorm: 467217 1 Tablet(s) PO BID 03/18/2016 07/11/2016 Inactive lisinopril 20 mg tablet RxNorm: 099488 TAKE ONE TABLET BY MOUTH DAILY 03/18/2016 08/14/2016 Inactive Vitamin D3 5,000 unit tablet RxNorm: 263731 Tablet(s) TAKE ONE TABLET BY MOUTH DAILY 03/18/2016 09/13/2016 Inactive trazodone 50 mg tablet RxNorm: 340836 TAKE ONE TABLET BY MOUTH AT BEDTIME 03/15/2016 06/07/2016 Inactive Vesicare 10 mg tablet RxNorm: 424455 1 Tablet(s) PO QHS 03/15/2016 02/07/2017 Inactive meloxicam 15 mg tablet RxNorm: 592460 TAKE ONE TABLET BY MOUTH DAILY 03/01/2016 01/24/2017 Inactive Bactrim DS 800 mg-160 mg tablet RxNorm: 864526 1 Tablet(s) PO BID 02/10/2016 02/09/2016 Inactive Bactrim DS 800 mg-160 mg tablet RxNorm: 063926 1 Tablet(s) PO BID 02/10/2016 02/16/2016 Inactive Cipro 500 mg tablet RxNorm: 281554 1 Tablet(s) PO BID 02/06/2016 02/09/2016 Inactive Cipro 500 mg tablet RxNorm: 373232 1 Tablet(s) PO BID 02/06/2016 02/05/2016 Inactive Pen[place]aid 20 mg/gram/actuation (2 %) topical soln in metered- dose pump RxNorm: 6146259 2 pumps TOP BID 01/19/2016 04/19/2016 Inactive tamsulosin 0.4 mg capsule RxNorm: 199319 TAKE ONE CAPSULE BY MOUTH EVERY EVENING 01/12/2016 06/03/2016 Inactive cyanocobalamin (vit B-12) 1,000 mcg/mL injection solution RxNorm: 437101 INJECT 1 ML INTRAMUSCULARLY MONTHLY 01/01/2016 10/26/2016 Inactive Request already responded to by other means (e.g. phone or fax) Vitamin B-12 1,000 mcg/mL injection solution RxNorm: 422628 1 Milliliter(s) Inj monthly 12/24/2015 04/19/2016 Inactive please give syringes for injections Vitamin D3 5,000 unit tablet RxNorm: 297540 TAKE ONE TABLET BY MOUTH DAILY 12/08/2015 03/06/2016 Inactive pantoprazole 40 mg tablet,delayed release RxNorm: 266646 TAKE ONE TABLET BY MOUTH DAILY 12/08/2015 03/17/2016 Inactive trazodone 50 mg tablet RxNorm: 193617 TAKE ONE TABLET BY MOUTH AT BEDTIME 11/10/2015 03/08/2016 Inactive lisinopril 20 mg tablet RxNorm: 965763 TAKE ONE TABLET BY MOUTH DAILY 09/08/2015 03/05/2016 Inactive Vitamin D3 5,000 unit tablet RxNorm: 753849 1 Tablet(s) PO daily 08/12/2015 12/07/2015 Inactive pantoprazole 40 mg tablet,delayed release RxNorm: 435040 1 Tablet(s) PO daily 08/12/2015 12/07/2015 Inactive tamsulosin 0.4 mg capsule RxNorm: 159041 TAKE ONE CAPSULE BY MOUTH EVERY EVENING 07/21/2015 12/17/2015 Inactive trazodone 50 mg tablet RxNorm: 572464 TAKE ONE TABLET BY MOUTH AT BEDTIME 05/09/2015 10/05/2015 Inactive hydrochlorothiazide 25 mg tablet RxNorm: 418937 1 Tablet(s) PO QAM 04/30/2015 04/29/2015 Inactive hydrochlorothiazide 25 mg tablet RxNorm: 504736 TAKE ONE TABLET BY MOUTH DAILY 04/30/2015 02/12/2018 Inactive pantoprazole 40 mg tablet,delayed release RxNorm: 542198 1 Tablet(s) PO daily 04/16/2015 08/11/2015 Inactive meloxicam 15 mg tablet RxNorm: 464099 TAKE ONE TABLET BY MOUTH DAILY 03/03/2015 02/25/2016 Inactive lisinopril 20 mg tablet RxNorm: 100321 1 Tablet(s) PO daily 02/19/2015 09/07/2015 Inactive tamsulosin 0.4 mg capsule RxNorm: 738426 TAKE ONE CAPSULE BY MOUTH EVERY EVENING 01/20/2015 07/18/2015 Inactive cyanocobalamin (vit B-12) 1,000 mcg/mL injection solution RxNorm: 340077 Milliliter(s) INJECT 1ML INTRAMUSCULARLY MONTHLY 12/12/2014 12/22/2014 Inactive trazodone 50 mg tablet RxNorm: 111918 TAKE ONE TABLET BY MOUTH AT BEDTIME 11/14/2014 05/08/2015 Inactive erythromycin 5 mg/gram (0.5 %) eye ointment RxNorm: 324731 1/2 inch OPH QID 11/05/2014 11/14/2014 Inactive acyclovir 800 mg tablet RxNorm: 620242 1 Tablet(s) PO TID 11/05/2014 11/18/2014 Inactive Zofran 4 mg tablet RxNorm: 558762 1 Tablet(s) PO Q4H as needed nausea 11/05/2014 01/03/2015 Inactive Duragesic 12 mcg/hr transdermal patch RxNorm: 051195 1 Patch TD Q72H 11/05/2014 02/04/2015 Inactive Imitrex 100 mg tablet RxNorm: 573943 1 Tablet(s) PO q 12 hours 11/04/2014 04/15/2015 Inactive naproxen 500 mg tablet RxNorm: 665772 1 Tablet(s) PO BID 10/30/2014 11/01/2014 Inactive meloxicam 15 mg tablet RxNorm: 733182 TAKE ONE TABLET BY MOUTH DAILY 10/04/2014 03/02/2015 Inactive Vesicare 5 mg tablet RxNorm: 264622 TAKE ONE TABLET BY MOUTH AT BEDTIME 09/16/2014 07/16/2015 Inactive Vitamin D2 50,000 unit capsule RxNorm: 723906 1 Capsule(s) PO QW 09/06/2014 07/16/2015 Inactive once weekly x 12 weeks tamsulosin ER 0.4 mg capsule,extended release 24 hr RxNorm: 454777 TAKE ONE CAPSULE BY MOUTH EVERY EVENING 06/24/2014 12/20/2014 Inactive tamsulosin ER 0.4 mg capsule,extended release 24 hr RxNorm: 057933 1 Capsule(s) PO QPM 06/24/2014 01/19/2015 Inactive Vitamin D2 50,000 unit capsule RxNorm: 805274 1 Capsule(s) PO QW 05/27/2014 09/05/2014 Inactive once weekly x 12 weeks Vesicare 5 mg tablet RxNorm: 170074 1 Tablet(s) PO QHS 05/23/2014 05/22/2014 Inactive Vesicare 5 mg tablet RxNorm: 365859 1 Tablet(s) PO QHS 05/23/2014 09/15/2014 Inactive trazodone 50 mg tablet RxNorm: 004322 TAKE ONE TABLET BY MOUTH AT BEDTIME 05/13/2014 11/08/2014 Inactive trazodone 50 mg tablet RxNorm: 374471 TAKE ONE TABLET BY MOUTH AT BEDTIME 05/13/2014 11/08/2014 Inactive hydrochlorothiazide 25 mg tablet RxNorm: 484756 1 Tablet(s) PO QA 04/18/2014 01/12/2015 Inactive Vitamin D2 50,000 unit capsule RxNorm: 261911 TAKE ONE CAPSULE BY MOUTH ONCE WEEKLY FOR 12 WEEKS 04/09/2014 05/14/2014 Inactive trazodone 50 mg tablet RxNorm: 504687 1 Tablet(s) PO QHS 02/22/2014 05/12/2014 Inactive trazodone 50 mg tablet RxNorm: 674153 1 Tablet(s) PO QHS 02/22/2014 02/21/2014 Inactive Vitamin D2 50,000 unit capsule RxNorm: 473606 TAKE ONE CAPSULE BY MOUTH ONCE WEEKLY FOR 12 WEEKS 02/07/2014 03/06/2014 Inactive meloxicam 15 mg tablet RxNorm: 657637 TAKE ONE TABLET BY MOUTH ONCE A DAY 02/07/2014 08/05/2014 Inactive meloxicam 15 mg tablet RxNorm: 283006 TAKE ONE TABLET BY MOUTH ONCE A DAY 02/07/2014 2014 Inactive clotrimazole 1 % topical cream RxNorm: 394111 1 Application TOP BID 12/25/2013 07/16/2015 Inactive Diflucan 150 mg tablet RxNorm: 167796 1 Tablet(s) PO daily 12/25/2013 12/31/2013 Inactive tamsulosin ER 0.4 mg capsule,extended release 24 hr RxNorm: 757483 1 Capsule(s) PO QPM 11/28/2013 06/23/2014 Inactive cyanocobalamin (vit B-12) 1,000 mcg/mL injection solution RxNorm: 237766 1 Milliliter(s) Inj 11/28/2013 12/12/2014 Inactive Vitamin B-12 1,000 mcg/mL injection solution RxNorm: 424926 1 Milliliter(s) Inj monthly 11/21/2013 02/13/2015 Inactive please give syringes for injections Vitamin D2 50,000 unit capsule RxNorm: 388253 1 Capsule(s) PO QW x 12 weeks 11/21/2013 02/06/2014 Inactive [SAVINGS FOR UNINSURED PATIENTS -- to take addtional 2000 units daily Vitamin B-12 1,000 mcg/mL injection solution RxNorm: 413967 1 Milliliter(s) Inj monthly 11/21/2013 11/20/2013 Inactive meloxicam 15 mg tablet RxNorm: 414528 1 Tablet(s) PO daily 11/20/2013 11/19/2013 Inactive [SAVINGS FOR UNINSURED PATIENTS -- BIN:569310, PCN: [id number], Group: [id number], ID# [id number], Process claim through EMBI, for questions: . THIS IS NOT INSURANCE.] meloxicam 15 mg tablet RxNorm: 653029 1 Tablet(s) PO daily 11/20/2013 02/06/2014 Inactive [SAVINGS FOR UNINSURED PATIENTS -- BIN:565513, PCN: ASPROD1, Group: [id number], ID# [id number], Process claim through EMBI, for questions: . THIS IS NOT INSURANCE.] meloxicam 15 mg tablet RxNorm: 079990 1 Tablet(s) PO daily 11/20/2013 11/19/2013 Inactive Voltaren 1 % topical gel RxNorm: 653560 4 Application TOP QID apply to back, affected joints four times daily 11/14/2013 11/20/2013 Inactive Iron (ferrous sulfate) 325 mg (65 mg iron) tablet RxNorm: 160625 1 Tablet(s) PO daily No Start Date Active trazodone 50 mg tablet RxNorm: 279283 1 Tablet(s) PO QHS No Start Date Active Vitamin D2 50,000 unit capsule RxNorm: 138128 1 Capsule(s) PO QW No Start Date 05/26/2014 Inactive once weekly x 12 weeks Zithromax Z-Brian 250 mg tablet RxNorm: 068404 1 Tablet(s) PO UD No Start Date 02/06/2018 Inactive Vitamin D2 50,000 unit capsule RxNorm: 940587 1 Capsule(s) PO QW No Start Date 11/20/2013 Inactive gabapentin 300 mg capsule RxNorm: 760970 1 Capsule(s) PO TID No Start Date 03/28/2017 Inactive Vesicare 10 mg tablet RxNorm: 535167 1 Tablet(s) PO QHS No Start Date 03/14/2016 Inactive Toprol XL 25 mg tablet,extended release RxNorm: 098482 1 Tablet(s) PO daily No Start Date 04/19/2018 Inactive Vitamin D3 5,000 unit tablet RxNorm: 410963 1 Tablet(s) PO daily No Start Date 08/11/2015 Inactive Celebrex 200 mg capsule RxNorm: 416977 1 Capsule(s) PO BID No Start Date 07/19/2016 Inactive Imitrex 50 mg tablet RxNorm: 146181 1 Tablet(s) PO now and may repeat up to four times in 24 hours No Start Date 11/03/2014 Inactive Zofran 4 mg tablet RxNorm: 229179 1 Tablet(s) PO Q8 as needed nausea and vomitting No Start Date 10/15/2015 Inactive ranitidine 150 mg tablet RxNorm: 080653 1 Tablet(s) PO BID No Start Date 02/12/2018 Inactive Phenergan 25 mg tablet RxNorm: 090533 1 Tablet(s) PO now No Start Date 04/15/2015 Inactive Tums oral RxNorm: 147253 oral No Start Date 10/15/2015 Inactive Medication Administered Medication Codes Instructions Start Date Status Kenalog 40 mg/mL suspension for injection RxNorm: 5616756 Milliliter 08/28/2018 No longer Active Kenalog 40 mg/mL suspension for injection RxNorm: 2997354 1Milliliter 09/07/2017 No longer Active cyanocobalamin (vit B-12) 1,000 mcg/mL injection solution RxNorm: 983767 1Milliliter 11/28/2013 No longer Active Immunizations Vaccine [...] recently went to an eye doctor in [place]. Reports that he did have hemorrhaging in his right eye which is getting better. headache 04/18/2014 Pt states he recently went to an eye doctor in [place] shortness of breath 02/21/2014 blisters 12/25/2013 insomnia 11/28/2013 back pain 11/14/2013 Results Observation Observation Code Item Item Code Result Date Vitamin D 25 Oh [id number] VITAMIN D, 25 HYDROXY 66.80 ng/mL 03/14/2018 [...] 28.5 pg 03/14/2018 Cbc With Differential Ord2 [place]% 7.6 % 03/14/2018 Cbc With Differential Ord2 [...] 1.28 K/ul 03/14/2018 Cbc With Differential Ord2 [place] ABS# 0.4 K/ul 03/14/2018 Cbc With Differential [...] Lipid Ord30 C/HDL 5.0 Ratio 06/27/2017 %Hba1C Kzq347 % HbA1c 61046- 6 6.2 % 06/27/2017 %Hba1C Rqz283 Gluc Ave 131 mg/dL 06/27/2017 Comp Metabolic Ecw184 NA 140 mEq/L 06/27/2017 Comp Metabolic Aun552 K 4.2 mEq/L 06/27/2017 Comp Metabolic Aom413 CL 100 mEq/L 06/27/2017 Comp Metabolic Udg466 CO2 32.0 mEq/L 06/27/2017 Comp Metabolic Boz503 ANION GAP 12 06/27/2017 Comp Metabolic Exq552 GLUCOSE 118 mg/dL 06/27/2017 Comp Metabolic Hlr039 Creat 1.0 mg/dL 06/27/2017 Comp Metabolic Nhs814 eGFR 82 ml/min/1.73m2 06/27/2017 Comp Metabolic Ein035 BUN 26 mg/dL 06/27/2017 Comp Metabolic Dkq202 B/C Ratio 27.1 Ratio 06/27/2017 Comp Metabolic Uqd925 CALCIUM 9.6 mg/dL 06/27/2017 Comp Metabolic Vkp421 ALK PHOS 46 U/L 06/27/2017 Comp Metabolic Ybr839 AST(SGOT) 23 U/L 06/27/2017 Comp Metabolic Ssv256 ALT(SGPT) 31 U/L 06/27/2017 Comp Metabolic Wgo148 BILI T 0.5 mg/dL 06/27/2017 Comp Metabolic Rmg904 ALBUMIN 4.2 g/dL 06/27/2017 Comp Metabolic Ffj250 TPRO 6.6 g/dL 06/27/2017 Comp Metabolic Zqj518 GLOB 2.4 g/dL 06/27/2017 Comp Metabolic Edf175 A/G Ratio 1.7 Ratio 06/27/2017 Comp Metabolic Vph544 Osmo 285 mOsmo 06/27/2017 Cbc With Differential [...] 29.0 pg 10/20/2016 Cbc With Differential Ord2 [place]% 9.0 % 10/20/2016 Cbc With Differential Ord2 [...] 1.33 K/ul 10/20/2016 Cbc With Differential Ord2 [place] ABS# 0.4 K/ul 10/20/2016 Cbc With Differential Ord2 Eos ABS# 0.2 K/ul 10/20/2016 Cbc With Differential Ord2 Baso ABS# 0.0 K/ul 10/20/2016 Comp Metabolic Dvo571 NA 143 mEq/L 10/20/2016 Comp Metabolic Iwn032 K 4.6 mEq/L 10/20/2016 Comp Metabolic Bqc309 CL 104 mEq/L 10/20/2016 Comp Metabolic Uhe306 CO2 31.0 mEq/L 10/20/2016 Comp Metabolic Rky228 ANION GAP 13 10/20/2016 Comp Metabolic Oea471 GLUCOSE 117 mg/dL 10/20/2016 Comp Metabolic Ojm038 Creat 1.1 mg/dL 10/20/2016 Comp Metabolic Eju206 eGFR 74 ml/min/1.73m2 10/20/2016 Comp Metabolic Rtw020 BUN 27 mg/dL 10/20/2016 Comp Metabolic Bcg170 B/C Ratio 25.7 Ratio 10/20/2016 Comp Metabolic Smx139 CALCIUM 9.3 mg/dL 10/20/2016 Comp Metabolic Qhb519 ALK PHOS 47 U/L 10/20/2016 Comp Metabolic Frv290 AST(SGOT) 18 U/L 10/20/2016 Comp Metabolic Mej510 ALT(SGPT) 22 U/L 10/20/2016 Comp Metabolic Zbb597 BILI T 0.5 mg/dL 10/20/2016 Comp Metabolic Zvf606 ALBUMIN 3.9 g/dL 10/20/2016 Comp Metabolic Zmg075 TPRO 6.5 g/dL 10/20/2016 Comp Metabolic Tiy999 GLOB 2.6 g/dL 10/20/2016 Comp Metabolic Bxh213 A/G Ratio 1.5 Ratio 10/20/2016 Comp Metabolic Ggu035 Osmo 291 mOsmo 10/20/2016 Tsh Ord6 hTSH II 1.56 uIU/mL 10/20/2016 Lipid Ord30 CHOL 153 mg/dL 10/20/2016 Lipid Ord30 HDL 34.0 mg/dl 10/20/2016 Lipid Ord30 TRIG 123 mg/dL 10/20/2016 Lipid Ord30 LDL 94 mg/dL 10/20/2016 Lipid Ord30 C/HDL 4.5 Ratio 10/20/2016 B12 Cuq292 B12 544.00 pg/ml 10/20/2016 Comp Metabolic Vwq385 NA 138 mEq/L 05/13/2016 Comp Metabolic Cnt923 K 4.2 mEq/L 05/13/2016 Comp Metabolic Xsz198 CL 102 mEq/L 05/13/2016 Comp Metabolic Awc748 CO2 30.0 mEq/L 05/13/2016 Comp Metabolic Rms320 ANION GAP 10 05/13/2016 Comp Metabolic Lye396 GLUCOSE 113 mg/dL 05/13/2016 Comp Metabolic Jae811 Creat 1.0 mg/dL 05/13/2016 Comp Metabolic Kbj809 eGFR 77 ml/min/1.73m2 05/13/2016 Comp Metabolic Ien646 BUN 26 mg/dL 05/13/2016 Comp Metabolic Mse559 B/C Ratio 25.5 Ratio 05/13/2016 Comp Metabolic Gms456 CALCIUM 9.7 mg/dL 05/13/2016 Comp Metabolic Bae046 ALK PHOS 51 U/L 05/13/2016 Comp Metabolic Goq750 AST(SGOT) 17 U/L 05/13/2016 Comp Metabolic Mla871 ALT(SGPT) 20 U/L 05/13/2016 Comp Metabolic Xaf624 BILI T 0.6 mg/dL 05/13/2016 Comp Metabolic Dpj643 ALBUMIN 4.0 g/dL 05/13/2016 Comp Metabolic Yda241 TPRO 6.6 g/dL 05/13/2016 Comp Metabolic Eev654 GLOB 2.6 g/dL 05/13/2016 Comp Metabolic Szt740 A/G Ratio 1.6 Ratio 05/13/2016 Comp Metabolic Dfa400 Osmo 281 mOsmo 05/13/2016 Lipid Ord30 CHOL [...] 29.3 pg 02/11/2016 Cbc With Differential Ord2 [place]% 7.7 % 02/11/2016 Cbc With Differential Ord2 [...] 1.18 K/ul 02/11/2016 Cbc With Differential Ord2 [place] ABS# 0.4 K/ul 02/11/2016 Cbc With Differential Ord2 Eos ABS# 0.1 K/ul 02/11/2016 Cbc With Differential Ord2 Baso ABS# 0.0 K/ul 02/11/2016 Comp Metabolic Tne556 NA 138 mEq/L 02/11/2016 Comp Metabolic Uik427 K 4.0 mEq/L 02/11/2016 Comp Metabolic Oud927 CL 97 mEq/L 02/11/2016 Comp Metabolic Iuu758 CO2 32.0 mEq/L 02/11/2016 Comp Metabolic Ngc540 ANION GAP 13 02/11/2016 Comp Metabolic Pcw597 GLUCOSE 117 mg/dL 02/11/2016 Comp Metabolic Qvc620 Creat 1.0 mg/dL 02/11/2016 Comp Metabolic Fdg019 eGFR 81 ml/min/1.73m2 02/11/2016 Comp Metabolic Nmh136 BUN 21 mg/dL 02/11/2016 Comp Metabolic Nps624 B/C Ratio 21.4 Ratio 02/11/2016 Comp Metabolic Osg456 CALCIUM 9.2 mg/dL 02/11/2016 Comp Metabolic Oms652 ALK PHOS 48 U/L 02/11/2016 Comp Metabolic Obr418 AST(SGOT) 18 U/L 02/11/2016 Comp Metabolic Qlr978 ALT(SGPT) 22 U/L 02/11/2016 Comp Metabolic Kbx965 BILI T 0.5 mg/dL 02/11/2016 Comp Metabolic Kge211 ALBUMIN 3.9 g/dL 02/11/2016 Comp Metabolic Qpn612 TPRO 6.3 g/dL 02/11/2016 Comp Metabolic Xmi272 GLOB 2.5 g/dL 02/11/2016 Comp Metabolic Qks204 A/G Ratio 1.6 Ratio 02/11/2016 Comp Metabolic Ziz720 Osmo 280 mOsmo 02/11/2016 Lipid Ord30 CHOL 163 mg/dL 02/11/2016 Lipid Ord30 HDL 35.0 mg/dl 02/11/2016 Lipid Ord30 TRIG 200 mg/dL 02/11/2016 Lipid Ord30 LDL 88 mg/dL 02/11/2016 Lipid Ord30 C/HDL 4.7 Ratio 02/11/2016 %Hba1C Sfh948 % HbA1c 64982- 6 6.5 % 02/11/2016 %Hba1C Ozp406 Gluc Ave 140 mg/dL 02/11/2016 Tsh Ord6 hTSH II 2.07 uIU/mL 02/11/2016 B12 Ayy287 B12 563.00 pg/ml 02/11/2016 Culture Urine [id number] URINE CULTURE SEE NOTES 02/10/2016 Culture Urine [id number] Continued Results 02/10/2016 Urine Culture Ucult Complete [...] hours from collection if refrigerated) 11/04/2015 %Hba1C Bgo035 % HbA1c 00561- 6 6.4 % 04/16/2015 %Hba1C Xwf181 Gluc Ave 137 mg/dL 04/16/2015 Tsh Ord6 hTSH II 3.33 uIU/mL 02/07/2015 Comp Metabolic Bpb991 NA 136 mEq/L 02/07/2015 Comp Metabolic Qsg060 K 3.9 mEq/L 02/07/2015 Comp Metabolic Hud169 CL 98 mEq/L 02/07/2015 Comp Metabolic Yei970 CO2 31.0 mEq/L 02/07/2015 Comp Metabolic Tvh424 ANION GAP 11 02/07/2015 Comp Metabolic Kuh118 GLUCOSE 139 mg/dL 02/07/2015 Comp Metabolic Sak449 Creat 0.9 mg/dL 02/07/2015 Comp Metabolic Wfl146 eGFR 87 ml/min/1.73m2 02/07/2015 Comp Metabolic Zhz073 BUN 20 mg/dL 02/07/2015 Comp Metabolic Pxr387 B/C Ratio 21.7 Ratio 02/07/2015 Comp Metabolic Gcl289 CALCIUM 9.7 mg/dL 02/07/2015 Comp Metabolic Wzk050 ALK PHOS 55 U/L 02/07/2015 Comp Metabolic Otl396 AST(SGOT) 20 U/L 02/07/2015 Comp Metabolic Xhy905 ALT(SGPT) 27 U/L 02/07/2015 Comp Metabolic Hla401 BILI T 0.5 mg/dL 02/07/2015 Comp Metabolic Rki134 ALBUMIN 4.3 g/dL 02/07/2015 Comp Metabolic Ypz227 TPRO 6.9 g/dL 02/07/2015 Comp Metabolic Ynz389 GLOB 2.6 g/dL 02/07/2015 Comp Metabolic Rnt270 A/G Ratio 1.7 Ratio 02/07/2015 Comp Metabolic Cph293 Osmo 277 mOsmo 02/07/2015 Cbc With Differential [...] Ord2 RDW 14.8 % 02/07/2015 A1C HPLC 9512154 A1C HPLC 00087-3 6.0 % 05/23/2014 VIT B 12 [id number] VIT B 12 479 PG/ML 05/23/2014 VIT D TOTL [id number] VIT D TOTL 29 NG/ML 05/23/2014 Review [...] 4: G0439 12/27/2017 THER/PROPH/DIAG INJ SC/IM CPT-4: 23068 09/07/2017 TRIAMCINOLONE ACET INJ NOS CPT-4: J3301 09/07/2017 ROUTINE VENIPUNCTURE CPT- 4: 94793 05/23/2014 THER/PROPH/DIAG INJ SC/IM CPT-4: 89844 11/28/2013 VITAMIN B12 INJECTION CPT- 4: J3420 11/28/2013 Vital Signs Date Vital 09/04/2018 Blood Pressure 1: 143/80 Code: 8480-6 BMI: 36.8 Code: 63732-4 Heart Rate 1: 88 bpm Height: 6' SpO2: 93% Weight: 271 lbs 08/28/2018 Blood Pressure 1: 144/72 Code: 8480-6 BMI: 36.8 Code: 23017-3 Heart Rate 1: 65 bpm Height: 6' SpO2: 97% Weight: 271 lbs 08/21/2018 Blood Pressure 1: 110/66 Code: 8480-6 BMI: 36.6 Code: 59579-8 Heart Rate 1: 70 bpm Height: 6' SpO2: 93% Weight: 270 lbs 06/27/2018 Blood Pressure 1: 124/70 Code: 8480-6 BMI: 36.6 Code: 10901-4 Heart Rate 1: 64 bpm Height: 6' SpO2: 96% Weight: 270 lbs 04/20/2018 Blood Pressure 1: 126/74 Code: 8480-6 BMI: 36.6 Code: 34121-3 Heart Rate 1: 60 bpm Height: 6' SpO2: 94% Weight: 270 lbs 03/21/2018 Blood Pressure 1: 138/74 Code: 8480-6 BMI: 36.8 Code: 26554-4 Heart Rate 1: 81 bpm Height: 6' SpO2: 98% Weight: 271 lbs 02/08/2018 Blood Pressure 1: 132/74 Code: 8480-6 BMI: 37.0 Code: 57274-1 Heart Rate 1: 82 bpm Height: 6' SpO2: 97% Weight: 273 lbs 12/27/2017 Blood Pressure 1: 148/78 Code: 8480-6 BMI: 36.3 Code: 11122-1 Heart Rate 1: 78 bpm Height: 6' SpO2: 93% Waist Measure (cm): 117 cm Weight: 268 lbs 12/06/2017 Blood Pressure 1: 122/70 Code: 8480-6 BMI: 36.6 Code: 26375-7 Heart Rate 1: 76 bpm Height: 6' SpO2: 93% Weight: 270 lbs 11/01/2017 BMI: 36.9 Code: 45449-3 Height: 6' Weight: 272 lbs 09/07/2017 Blood Pressure 1: 140/78 Code: 8480-6 BMI: 35.8 Code: 99068-7 Heart Rate 1: 76 bpm Height: 6' SpO2: 98% Weight: 264 lbs 06/07/2017 Blood Pressure 1: 138/86 Code: 8480-6 BMI: 36.3 Code: 48125-5 Heart Rate 1: 66 bpm Height: 6' SpO2: 95% Weight: 268 lbs 05/19/2017 Blood Pressure 1: 152/84 Code: 8480-6 BMI: 36.8 Code: 31624-5 Heart Rate 1: 70 bpm Height: 6' SpO2: 93% Weight: 271 lbs 05/09/2017 Blood Pressure 1: 138/76 Code: 8480-6 BMI: 36.6 Code: 11944-7 Heart Rate 1: 79 bpm Height: 6' SpO2: 93% Weight: 270 lbs 04/25/2017 Blood Pressure 1: 150/80 Code: 8480-6 Heart Rate 1: 58 bpm Height: SpO2: 94% Weight: 2017 Blood Pressure 1: 138/80 Code: 8480-6 BMI: 36.5 Code: 17949-5 Heart Rate 1: 76 bpm Height: 6' SpO2: 96% Weight: 269 lbs 03/29/2017 Blood Pressure 1: 118/68 Code: 8480-6 BMI: 36.9 Code: 74240-2 Heart Rate 1: 61 bpm Height: 6' SpO2: 95% Weight: 272 lbs 03/17/2017 Blood Pressure 1: 140/78 Code: 8480-6 BMI: 36.8 Code: 97203-3 Heart Rate 1: 91 bpm Height: 6' SpO2: 93% Weight: 271 lbs 03/08/2017 Blood Pressure 1: 152/84 Code: 8480-6 BMI: 36.8 Code: 09508-3 Heart Rate 1: 72 bpm Height: 6' SpO2: 92% Temperature: 36.6 (C) / 97.8 (F) Weight: 271 lbs 02/17/2017 Blood Pressure 1: 110/64 Code: 8480-6 BMI: 36.5 Code: 41345-2 Heart Rate 1: 62 bpm Height: 6' SpO2: 96% Weight: 269 lbs 01/18/2017 Blood Pressure 1: 140/80 Code: 8480-6 BMI: 36.5 Code: 09240-0 Heart Rate 1: 62 bpm Height: 6' SpO2: 94% Weight: 269 lbs 10/19/2016 Blood Pressure 1: 120/80 Code: 8480-6 BMI: 35.9 Code: 48020-2 Heart Rate 1: 64 bpm Height: 6' SpO2: 97% Weight: 265 lbs 08/17/2016 Blood Pressure 1: 112/76 Code: 8480-6 BMI: 36.1 Code: 05955-3 Heart Rate 1: 65 bpm Height: 6' SpO2: 97% Weight: 266 lbs 07/20/2016 Blood Pressure 1: 126/78 Code: 8480-6 BMI: 35.5 Code: 07793-7 Heart Rate 1: 60 bpm Height: 6' SpO2: 95% Weight: 262 lbs 04/19/2016 Blood Pressure 1: 132/78 Code: 8480-6 BMI: 35.1 Code: 76208-1 Heart Rate 1: 65 bpm Height: 6' SpO2: 98% Weight: 259 lbs 01/19/2016 Blood Pressure 1: 140/64 Code: 8480-6 BMI: 34.4 Code: 17225-3 Heart Rate 1: 61 bpm Height: 6' SpO2: 97% Weight: 254 lbs 10/16/2015 Blood Pressure 1: 108/66 Code: 8480-6 BMI: 35.3 Code: 80899-4 Heart Rate 1: 65 bpm Height: 6' SpO2: 96% Weight: 260 lbs 07/17/2015 Blood Pressure 1: 136/74 Code: 8480-6 BMI: 35.8 Code: 87722-4 Heart Rate 1: 59 bpm Height: 6' SpO2: 97% Weight: 263 lbs 13 oz 07/03/2015 Weight: 265 lbs 04/16/2015 Blood Pressure 1: 130/82 Code: 8480-6 BMI: 36.1 Code: 46463-2 Heart Rate 1: 7694 bpm Height: 6' SpO2: 94% Weight: 266 lbs 02/19/2015 Blood Pressure 1: 160/90 Code: 8480-6 BMI: 35.8 Code: 67965-1 Heart Rate 1: 78 bpm Height: 6' SpO2: 94% Weight: 264 lbs 11/20/2014 Blood Pressure 1: 140/96 Code: 8480-6 BMI: 34.6 Code: 53840-0 Heart Rate 1: 92 bpm Height: 6' SpO2: 95% Weight: 255 lbs 11/05/2014 Blood Pressure 1: 132/70 Code: 8480-6 BMI: 34.6 Code: 25997-3 Heart Rate 1: 96 bpm Height: 6' SpO2: 98% Weight: 255 lbs 09/19/2014 Blood Pressure 1: 152/86 Code: 8480-6 BMI: 35.8 Code: 32432-0 Heart Rate 1: 82 bpm Height: 6' SpO2: 95% Weight: 264 lbs 07/24/2014 Blood Pressure 1: 142/82 Code: 8480-6 BMI: 34.7 Code: 56733-6 Heart Rate 1: 72 bpm Height: 6' Weight: 256 lbs 05/23/2014 Blood Pressure 1: 150/82 Code: 8480-6 BMI: 33.4 Code: 13132-2 Heart Rate 1: 68 bpm Height: 6' Weight: 246 lbs 04/18/2014 Blood Pressure 1: 132/84 Code: 8480-6 BMI: 33.2 Code: 15976-7 Heart Rate 1: 80 bpm Height: 6' Weight: 245 lbs 02/21/2014 Blood Pressure 1: 138/82 Code: 8480-6 BMI: 32.4 Code: 04765-5 Heart Rate 1: 85 bpm Height: 6' SpO2: 98% Weight: 239 lbs 12/25/2013 Blood Pressure 1: 146/80 Code: 8480-6 BMI: 30.5 Code: 35136-4 Heart Rate 1: 100 bpm Height: 6' Weight: 225 lbs 11/28/2013 Blood Pressure 1: 120/64 Code: 8480-6 BMI: 30.4 Code: 72781-7 Heart Rate 1: 68 bpm Height: 6' Weight: 224 lbs 11/14/2013 Blood Pressure 1: 124/80 Code: 8480-6 BMI: 30.0 Code: 51059-8 Heart Rate 1: 76 bpm Height: 6' [...] not bring in readings 08/21/2018 -Checked at [facility] Pertinent Findings Denies dizziness 08/21/2018 None [...] Maxitrol and Polytrim seeing eye dr in [place]. Reports eye still feels irritated. headache Quality [...] Maxitrol and Polytrim seeing eye dr in [place]. Reports eye still feels irritated. headache Quality [...] data Encounters Encounter Performer Location Codes Date ([id number]) 74458 EST. PATIENT, LEVEL II Diagnosis: Rash and other nonspecific skin eruption[ICD10: R21] [facility] CPT-4: 04265 09/04/2018 ([id number]) 00701 EST. PATIENT, LEVEL III Diagnosis: Rash and other nonspecific skin eruption[ICD10: R21] Diagnosis: Other pruritus[ICD10: L29.8] [facility] CPT-4: 34689 08/28/2018 [id number]) 51039 EST. PATIENT, LEVEL IV Diagnosis: Essential (primary) hypertension[ICD10: I10] Diagnosis: Pain in right shoulder[ICD10: M25.511] Diagnosis: Muscle weakness (generalized)[ICD10: M62.81] Quyen Long MD, [facility] CPT-4: 75165 08/21/2018 08397 EST. PATIENT, LEVEL III Diagnosis: Tinea barbae and tinea capitis[ICD10: B35.0] Glory Long MD, [facility] CPT-4: 31821 06/27/2018 ([id number]) 86929 EST. 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 PATIENT, LEVEL III Diagnosis: Acute bronchitis due to other specified organisms[ICD10: J20.8] Antoinette Long MD, [facility] CPT-4: 33415 02/08/2018 ([id number]) 64976 EST. 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 PATIENT, LEVEL III Diagnosis: Essential (primary) hypertension[ICD10: I10] Diagnosis: Localized edema[ICD10: R60.0] Diagnosis: Cellulitis of left lower limb[ICD10: L03.116] Quyen Long MD [facility] CPT-4: 49244 06/07/2017 ([id number]) 27346 EST. 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 PATIENT, LEVEL II Diagnosis: Rash and other nonspecific skin eruption[ICD10: R21] Glory Long MD [facility] CPT-4: 01051 05/09/2017 ([id number]) 77783 EST. PATIENT, LEVEL II Diagnosis: Rash and other nonspecific skin eruption[ICD10: R21] Glory Long MD [facility] CPT-4: 49809 04/25/2017 ([id number]) 60723 EST. PATIENT, LEVEL III Diagnosis: Cellulitis of left lower limb[ICD10: L03.116] Diagnosis: Rash and other nonspecific skin eruption[ICD10: R21] Glory Long MD [facility] CPT-4: 67338 2017 ([id number]) 17306 EST. PATIENT, LEVEL III Diagnosis: Cellulitis of left lower limb[ICD10: L03.116] Diagnosis: Rash and other nonspecific skin eruption[ICD10: R21] Glory Long MD [facility] CPT-4: 69721 03/29/2017 63935 EST. PATIENT, LEVEL IV Diagnosis: Cellulitis of left lower limb[ICD10: L03.116] Antoinette Long MD [facility] CPT-4: 67404 03/17/2017 ([id number]) 60143 EST. PATIENT, LEVEL III Diagnosis: Rash and other nonspecific skin eruption[ICD10: R21] Glory Long MD, [facility] CPT-4: 11254 03/08/2017 14368 EST. PATIENT, LEVEL IV Diagnosis: Essential (primary) hypertension[ICD10: I10] Diagnosis: Muscle weakness (generalized)[ICD10: M62.81] Diagnosis: Body mass index (BMI) 36.0-36.9, adult[ICD10: Z68.36] Diagnosis: Family history of ischemic heart disease and other diseases of the circulatory system[ICD10: Z82.49] Antoinette Long MD, [facility] CPT-4: 33923 02/17/2017 ([id number]) 02576 EST. PATIENT, LEVEL IV Diagnosis: Essential (primary) hypertension[ICD10: I10] Diagnosis: Muscle weakness (generalized)[ICD10: M62.81] Quyen Long MD, [facility] CPT-4: 42820 01/18/2017 ([id number]) 41031 EST. 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 PATIENT, LEVEL III Diagnosis: Pain in left shoulder[ICD10: M25.512] Diagnosis: Rash and other nonspecific skin eruption[ICD10: R21] Glory Long MD, [facility] CPT-4: 33300 08/17/2016 ([id number]) 37192 EST. PATIENT, LEVEL IV Diagnosis: Essential (primary) hypertension[ICD10: I10] Diagnosis: Pain in left shoulder[ICD10: M25.512] Quyen Long MD, [facility] CPT-4: 75297 07/20/2016 ([id number]) 59907 EST. 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 PATIENT, LEVEL IV Diagnosis: Essential (primary) hypertension[ICD10: I10] Diagnosis: Other abnormal glucose[ICD10: R73.09] Diagnosis: Gastro-esophageal reflux disease without esophagitis[ICD10: K21.9] Diagnosis: Obesity, unspecified[ICD10: E66.9] Quyen Long MD, [facility] CPT- 4: 82186 04/16/2015 ([id number]) 84759 EST. PATIENT, LEVEL IV Diagnosis: ESSENTIAL HYPERTENSION[ICD9: 401.9] Diagnosis: OBESITY[ICD9: 278.00] Diagnosis: Post-polio limb muscle weakness[ICD9: 728.87] Quyen Long MD, [facility] CPT-4: 21364 02/19/2015 ([id number]) 14616 EST. PATIENT, LEVEL IV Diagnosis: Shingles outbreak[ICD9: 053.9] Diagnosis: ESSENTIAL HYPERTENSION[ICD9: 401.9] Diagnosis: Earache[ICD9: 388.70] Quyen Long MD, [facility] CPT-4: 70010 11/20/2014 [id number]) 44838 EST. PATIENT, LEVEL III Diagnosis: Shingles outbreak[ICD9: 053.9] Diagnosis: Face pain[ICD9: 784.0] Diagnosis: Pain, eye, right[ICD9: 379.91] Quyen Long MD, [facility] CPT-4: 05470 11/05/2014 [id number]) 67729 EST. PATIENT, LEVEL V Diagnosis: Post-polio limb muscle weakness[ICD9: 728.87] Diagnosis: Post-polio syndrome[ICD9: 138] Diagnosis: Leg weakness[ICD9: 729.89] Diagnosis: Weakness[ICD9: 780.79] Diagnosis: Foot drop[ICD9: 736.79] Quyen Long MD, [facility] CPT-4: 04324 09/19/2014 [id number]) 70340 EST. PATIENT, LEVEL IV Diagnosis: ESSENTIAL HYPERTENSION[ICD9: 401.9] Diagnosis: Carotid bruit[ICD9: 785.9] Diagnosis: Seborrheic dermatitis[ICD9: 690.10] Diagnosis: Post-polio syndrome[ICD9: 138] Diagnosis: Vitamin D deficiency[ICD9: 268.9] Quyen Long MD, [facility] CPT- 4: 43483 07/24/2014 [id number]) 18571 EST. PATIENT, LEVEL IV Diagnosis: Neck pain[ICD9: 723.1] Diagnosis: Post-polio syndrome[ICD9: 138] Diagnosis: Vitamin D deficiency[ICD9: 268.9] Diagnosis: Vitamin B12 deficiency[ICD9: 266.2] Diagnosis: Nocturia[ICD9: 788.43] Diagnosis: Leg weakness[ICD9: 729.89] Diagnosis: Elevated blood sugar[ICD9: 790.29] Glory Long MD, [facility] CPT- 4: 86759 05/23/2014 [id number]) 84412 EST. PATIENT, LEVEL IV Diagnosis: ESSENTIAL HYPERTENSION[ICD9: 401.9] Diagnosis: HEADACHE[ICD9: 784.0] Diagnosis: EDEMA[ICD9: 782.3] Quyen Long MD, [facility] CPT-4: 94359 04/18/2014 12741 EST. PATIENT, LEVEL IV Diagnosis: Insomnia[ICD9: 780.52] Diagnosis: Post-polio syndrome[ICD9: 138] Diagnosis: Vitamin D deficiency[ICD9: 268.9] Diagnosis: Nocturnal hypoxemia[ICD9: 799.02] Glory Long MD, [facility] CPT- 4: 04788 02/21/2014 ([id number]) 51569 EST. PATIENT, LEVEL III Diagnosis: Tinea pedis[ICD9: 110.4] Diagnosis: Post-polio limb muscle weakness[ICD9: 728.87] Glory Long MD, [facility] CPT-4: 49128 12/25/2013 ([id number]) 70018 EST. PATIENT, LEVEL IV Diagnosis: Insomnia[ICD9: 780.52] Diagnosis: Vitamin B12 deficiency (dietary) anemia[ICD9: 281.1] Diagnosis: VITAMIN D DEFICIENCY[ICD9: 268.9] Diagnosis: Weakness[ICD9: 780.79] Quyen Long MD, [facility] CPT-4: 42483 11/28/2013 ([id number]) OFFICE/OUTPATIENT VISIT NEW Diagnosis: Post-polio limb muscle weakness[ICD9: 728.87] Diagnosis: Post-polio syndrome[ICD9: 138] Diagnosis: Insomnia[ICD9: 780.52] Diagnosis: Arrhythmia[ICD9: 427.9] Quyen Long MD, [facility] CPT-4: 96006 11/14/2013 Plan of Care Planned Activity Notes Codes Status Date Visit Plan: Rash-resolved -continue topical betamethasone cream as ordered-call if rash returns 09/04/2018 Appointment: Glory Dalton WPtel: [address] [place], [place] [phone] (30 min) [facility] 09/04/2018 Patient Education: Patient Medication Summary Completed 09/04/2018 Visit Plan: Rash-culture today in the office -kenalog injection for acute symptoms -start prednisone tomorrow- treat with abx if indicated on culture- follow up in 1 week, sooner if needed 08/28/2018 Appointment: Glory Dalton WPtel: [address] [place], [place] [phone] (30 min) Complex 08/28/2018 Patient Education: Patient Medication Summary Completed 08/28/2018 Appointment: Quyen Long WPtel: [address] [place], [place] [phone] (15 min) Moderate 08/24/2018 Visit Plan: Hypertension [...] Post-Polio syndrome. 08/21/2018 Appointment: Quyen Long WPtel: [facility] (15 min) Moderate 08/21/2018 Patient Education: Patient Medication Summary Completed 08/21/2018 Patient Education: Hypertension Completed 08/21/2018 Visit Plan: Tinea barbae -rx for ketoconazole written and instructed patient on use -instructed patient to call or return to clinic if symptoms do not resolve or if any worse. Patient verbalized understanding of plan. 06/27/2018 Appointment: Glory Dalton WPtel: [address] [place], [place] [phone] (30 min) Complex 06/27/2018 Patient Education: Patient [...] his shoulder. 04/20/2018 Appointment: Quyen Long WPtel: [phone] [facility] (15 min) Moderate 04/20/2018 Patient Education: Patient Medication Summary Completed 04/20/2018 Patient Education: Hypertension Completed 04/20/2018 Appointment: Quyen Long WPtel: [phone] [facility] (15 min) Moderate 04/11/2018 Visit Plan: Post polio syndrome -right leg weakness -patient needs repair and adjustment of his right leg brace that helps with his symptoms of instability and weakness and allows him to ambulate -will send rx to [place] [facility] 03/21/2018 Appointment: Glory Dalton WPtel: [phone] [phone] [place] (15 min) Moderate 03/21/2018 Patient Education: [...] acutely worsen. 02/08/2018 Appointment: Antoinette Arndt WPtel: [phone] [phone] (30 min) Complex 02/08/2018 Patient Education: Patient [...] Education: Patient Medication Summary Completed 12/27/2017 App[facility]ment[phone] (15 min) Moderate 12/08/2017 Visit Plan: Hypertension [...] injection. 12/06/2017 Appointment[phone] [facility] (15 min) Moderate 12/06/2017 Patient Education: [...] weight check. 09/07/2017 Appointment: Quyen Long WPtel: [facility] (15 min) Moderate 09/07/2017 Patient Education: [...] lower leg. 06/07/2017 Appointment: Quyen Long WPtel: [facility] (15 min) Moderate 06/07/2017 Patient Education: [...] compression recommended. 05/19/2017 Appointment: Quyen Long WPtel: [phone] [facility] (15 min) Moderate 05/19/2017 Patient Education: Patient Medication Summary Completed 05/19/2017 Patient Education: Obesity Completed 05/19/2017 Patient Education: Hypertension Completed 05/19/2017 Visit Plan: Rash-left ejmt-mwhgnful-pgvlqtxrqr patient to continue using ketoconazole plus betamethasone equal parts and increase to TID-leave foot open to air as much as possible-follow up in 2 weeks, sooner if needed. 05/09/2017 Appointment: Glory Dalton WPtel: [phone] (30 min) Complex 05/09/2017 Patient Education: Patient Medication Summary Completed 05/09/2017 Patient Education: Obesity Completed 05/09/2017 Visit Plan: Rash-left foot-Dr Long in to evaluate rash-instructed patient to start using ketoconazole plus betamethasone equal parts TID -follow up in 2 weeks, sooner if needed. 04/25/2017 Appointment: Glory Dalton WPtel: [phone] (30 min) Complex 04/25/2017 Patient Education: Patient Medication Summary Completed 04/25/2017 Visit Plan: Cellulitis of left foot-no longer draining-no open areas-no excoriation-slightly red-okay to d/c all treatments-keep clean and monitor-call if redness does not resolve Rash-resolved 2017 Appointment: Glory Dalton WPtel: [phone] (30 min) Complex 2017 Patient Education: Patient Medication Summary Completed 2017 Patient Education: Obesity Completed 2017 Visit Plan: Cellulitis-left foot-MSSA odlkhojk-pqaidmvnm-lacsa air in the evening-continue bactroban ointment twice daily-stop using alcohol on foot-no papertowels or abrasives to foot Xxnr-zovz-ot for betamethasone provided and instructed on use 03/29/2017 Appointment: Glory Dalton WPtel: [facility] [place] [phone] (30 min) Complex 03/29/2017 Patient Education: Patient Medication Summary Completed 03/29/2017 Patient Education: Obesity Completed 03/29/2017 Appointment: Glory Dalton WPtel: [phone] (30 min) Complex 03/22/2017 Visit Plan: Cellulitis [...] warmth, discharge. 03/17/2017 Appointment: Antoinette Arndt WPtel: [address] [place], [place] [phone] (30 min) Complex 03/17/2017 Patient Education: Patient [...] the break. 01/18/2017 Appointment: Quyen Long WPtel: [facility] (15 min) Moderate 01/18/2017 Patient Education: Patient [...] and weakness. 10/19/2016 Appointment: Quyen Long WPtel: [facility] (15 min) Moderate 10/19/2016 Patient Education: Patient Medication Summary Completed 10/19/2016 Patient Education: Obesity Completed 10/19/2016 Visit Plan: Left shoulder pain-hospital f/u recent shoulder surgery with Dr Wilson-doing well-sees Dr Wilson this afternoon for suture removal-pain improved Wxbo-kbse-ucewhtl fungal infection-will treat with ket oconazole -follow up in 2 weeks 08/17/2016 Appointment: Glory Dalton WPtel: [phone] [place] (30 min) Complex 08/17/2016 Patient Education: [...] ambulating. 07/20/2016 Appointment: [facility]el[phone] [facility] (15 min) Moderate 07/20/2016 Patient Education: [...] strengthening. 04/19/2016 Appointment: [facility]el[phone] [facility] (15 min) Moderate 04/19/2016 Patient Education: Patient [...] appointment. 01/19/2016 Appointment: [facility]el[phone] [facility] (15 min) Moderate 01/19/2016 Patient Education: Patient Medication Summary Completed 01/19/2016 Patient Education: Obesity Completed 01/19/2016 Patient Education: Hypertension Completed 01/19/2016 Referral: Dr Mccauley Referral Completed 11/11/2015 Care Plan: Referral Order SNOMED-CT : [id number] Pending 11/03/2015 Visit Plan: Hypertension - well [...] injection 10/16/2015 Appointment: [facility] Long [facility]Ptel[facility] [address] [facility] (15 min) Moderate 10/16/2015 Patient Education: Patient [...] - 02/19/2015 [facility]ment[phone] [id number] ([facility] min) Moderate 02/19/2015 Patient Education: Patient [...] ear drops. 11/20/2014 Appointment[phone] [id number] Follow up 11/20/2014 Patient Education: Patient [...] ESME. 11/05/2014 App[facility]ment[phone] [id number] (15 min) Moderate 11/05/2014 Patient Education: [...] to participate in activities outside of the [facility]. He has a family that would like [...] foot. 09/19/2014 App[facility]ment: [phone] [id number] Follow up 09/19/2014 Patient Education: Patient Medication [...] deficiency - recommended repeat of vitamin d [id number] weekly x 12 weeks and increase vitamin d to 5000 units daily. 07/24/2014 Appointment: [facility] [phone] [id number] Follow up 07/24/2014 Patient Education: Patient Medication [...] B12 level 05/23/2014 Appointment: Glory Dalton WPtel: [phone] Follow up 05/23/2014 Patient Education: Patient Medication Summary Completed 05/23/2014 Patient Education: .Cervicalgia Neck Pain Completed 05/23/2014 Appointment: Quyen Long WPtel: [address] [place], [place] [phone] [place] Follow up 05/22/2014 Visit Plan: Edema [...] at home. 04/18/2014 Appointment: Quyen Long WPtel: [address] [place], [place] [phone] Follow up 04/18/2014 Patient Education: Patient Medication Summary Completed 04/18/2014 Patient Education: Hypertension Completed 04/18/2014 Appointment: Quyen Long WPtel: [address] [place], [place] [phone] [place] Follow up 02/27/2014 Visit Plan: Insomnia - Pt has been advised to increase the light in the house during the day, and start dimming the lights during the evening hours. Pt has been advised to cut out caffeine after 5pm. Daytime napping worsens night time insomnia. START TRAZODONE AND MONITOR SYMPTOMS. Vitamin D qvdhoczoaf-acyqhwmm-clrahkkp vitamin D 50,000 units weekly for 12 additional weeks. Hypoxemia-continue night time oxygen 02/21/2014 Appointment: Glory Dalton WPtel: [address] [place], [place] [id number] Follow up 02/21/2014 Patient Education: Patient Medication [...] on mobic. 11/28/2013 Appointment: Qu[facility] Long [facility]Ptel[facility] [phone] [id number] Follow up 11/28/2013 Patient Education: Patient [...] oxygen study. 11/14/2013 Appointment: Quyen Long WPtel[facility] New Patient 11/14/2013 Patient Education: Patient Medication Summary Completed 11/14/2013 Referral: Dr Mccauley Referral Appointment Requested Instructions Comment . Cellulitis - left foot - The [...] and dressings to lower leg. . Rash-left xerc-ouvldqhe-ybistozkhd patient to continue using ketoconazole plus betamethasone [...] deficiency - recommended repeat of vitamin d [id number] weekly x 12 weeks and increase vitamin [...] START TRAZODONE AND MONITOR SYMPTOMS. Vitamin D npnwviwhbj-idruqkom-jvjifjzk vitamin D 50,000 units weekly for 12 [...] up in 10 days . Cellulitis-left foot-MSSA wtapozjm-mhambscnk-juvta air in the evening-continue bactroban ointment twice daily-stop using alcohol on foot-no papertowels or abrasives to foot Tkbj-sihn-dm for betamethasone provided and instructed on use [...] brace for right leg - rx for dei to [facility]. Junaid has instability of [...] increase in pain, worsening redness, warmth, discharge. KENALOG INJECTION TODAY PREDNISONE -START TOMORROW BETAMETHASONE [...] may need fluoroscopic guidance with injection . Rash-resolved -continue topical betamethasone cream as [...] to participate in activities outside of the [facility]. He has a family that would like [...] him to ambulate -will send rx to [facility] . Hypertension - well controlled - [...] Wilson this afternoon for suture removal-pain improved Cxxd-bodc-vmoswow fungal infection-will treat with ketoconazole -follow up in 2 weeks
--- OUTSIDE RECORDS SUMMARY | 2018-11-10 15:27 | XMS REPORT | CCD ---
Author Author Quyen Long Organization Quyen Long MD, [facility] Address [address] [place] [address] Phone Care Team Providers Care Loader [facility] Name Role Phone PP Unavailable CCM Unavailable Summary Purpose Interface Exchange Insurance Providers Payer name Policy type / Coverage type Covered libertarian ID Effective Begin Date Effective End Date WPS Medicare Part B Medicare Part B [id number] 2017 Unknown [facility] Medicare Part B [id number] 2017 Unknown Family history Grandmother Diagnosis Age [...] Description Effective Dates Tobacco history SNOMED CT: 0151058 Former smoker 1.5 pack daily x 45 years 12/27/2017 Marital status Unknown 10/19/2016 Living arrangements Unknown Assisted Living [facility] 04/19/2016 Number of children Unknown 1 son - lives in [place] 11/14/2013 Employment Unknown 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 11/14/[address]: 491557567 Never drinks alcohol 11/14/2013 Has the patient [...] Start Date Stop Date Status Fill Instructions Kenalog 40 mg/mL suspension for injection RxNorm: 7521302 Milliliter(s) Inj 08/28/2018 08/28/2018 Inactive ranitidine 150 mg tablet RxNorm: 089272 1 Tablet(s) PO daily 08/21/2018 No Stop Date Active ketoconazole 2 % topical cream RxNorm: 006274 1 Application TOP BID to left ear and left arm, right arm, left - a total of 1 gram bid 08/21/2018 12/18/2018 Active ketoconazole 2 % shampoo RxNorm: 987551 APPLY TO AFFECTED AREA(S) TWICE WEEKLY UNTIL RESOLVED 08/14/2018 09/10/2018 Active cetirizine 10 mg tablet RxNorm: 8207316 TAKE ONE TABLET BY MOUTH EVERY NIGHT AT BEDTIME 08/07/2018 03/04/2019 Active trazodone 50 mg tablet RxNorm: 554221 TAKE ONE TABLET BY MOUTH AT BEDTIME 07/18/2018 11/14/2018 Active ketoconazole 2 % shampoo RxNorm: 621348 1 TOP BIW 06/27/2018 08/13/2018 Inactive Vitamin B-12 1,000 mcg/mL injection solution RxNorm: 785451 INJECT 1ML MONTHLY 06/19/2018 11/15/2018 Active Request already responded to by other means (e.g. phone or fax) Vitamin B-12 1,000 mcg/mL injection solution RxNorm: 127189 Milliliter(s) INJECT 1ML MONTHLY 06/15/2018 06/18/2018 Inactive Zithromax Z-Brian 250 mg tablet RxNorm: 110945 1 Tablet(s) PO UD 06/14/2018 08/20/2018 Inactive zpack as directed x1 tamsulosin 0.4 mg capsule RxNorm: 559007 TAKE ONE CAPSULE BY MOUTH EVERY EVENING 06/12/2018 01/07/2019 Active gabapentin 300 mg capsule RxNorm: 108812 TAKE ONE CAPSULE BY MOUTH TWICE A DAY 05/31/2018 09/27/2018 Active losartan 50 mg tablet RxNorm: 359804 TAKE ONE TABLET BY MOUTH DAILY 05/01/2018 09/27/2018 Active Toprol XL 50 mg tablet,extended release RxNorm: 011712 1 Tablet(s) PO daily 04/20/2018 No Stop Date Active Vitamin D3 5,000 unit tablet RxNorm: 216834 TAKE ONE TABLET BY MOUTH DAILY 04/05/2018 02/28/2019 Active trazodone 50 mg tablet RxNorm: 807624 TAKE ONE TABLET BY MOUTH AT BEDTIME 02/27/2018 07/17/2018 Inactive hydrochlorothiazide 25 mg tablet RxNorm: 993099 TAKE ONE TABLET BY MOUTH DAILY 02/13/2018 11/09/2018 Active ranitidine 150 mg tablet RxNorm: 608640 1 Tablet(s) PO BID 02/13/2018 08/20/2018 Inactive albuterol sulfate 2.5 mg/3 mL (0.083 %) solution for nebulization RxNorm: 324804 3 Milliliter(s) INH UD 02/08/2018 No Stop Date Active please deliver all of his prescriptions thank you cefdinir 300 mg capsule RxNorm: 016404 1 Capsule(s) PO BID 02/08/2018 02/17/2018 Inactive prednisone 20 mg tablet RxNorm: 904736 2 Tablet(s) PO daily 02/08/2018 02/12/2018 Inactive fluticasone 50 mcg/actuation nasal spray,suspension RxNorm: 8249252 1 [place] NASAL BID 02/07/2018 06/06/2018 Inactive fluticasone 50 mcg/actuation nasal spray,suspension RxNorm: 2412400 1 [place]iner NASAL BID 02/07/2018 02/06/2018 Inactive Zithromax Z-Brian 250 mg tablet RxNorm: 999001 1 Tablet(s) PO UD 02/07/2018 03/14/2018 Inactive zdavinck as directed tamsulosin 0.4 mg capsule RxNorm: 917341 TAKE ONE CAPSULE BY MOUTH EVERY EVENING 01/13/2018 06/11/2018 Inactive Vitamin D3 5,000 unit tablet RxNorm: 392566 TAKE ONE TABLET BY MOUTH DAILY 01/02/2018 04/04/2018 Inactive cetirizine 10 mg tablet RxNorm: 9322447 TAKE ONE TABLET BY MOUTH EVERY NIGHT AT BEDTIME 01/02/2018 04/01/2018 Inactive cetirizine 10 mg tablet RxNorm: 4944692 1 Tablet(s) PO QHS 12/26/2017 01/01/2018 Inactive cetirizine 10 mg tablet RxNorm: 8460757 1 Tablet(s) PO QHS 12/26/2017 12/25/2017 Inactive losartan 50 mg tablet RxNorm: 518362 TAKE ONE TABLET BY MOUTH DAILY (STARTING 09-09-2017) 09/29/2017 03/27/2018 Inactive Request already responded to by other means (e.g. phone or fax) losartan 50 mg tablet RxNorm: 689036 1 Tablet(s) PO daily 09/27/2017 09/26/2017 Inactive losartan 50 mg tablet RxNorm: 024887 1 Tablet(s) PO daily 09/27/2017 09/28/2017 Inactive Bactrim DS 800 mg-160 mg tablet RxNorm: 583638 1 Tablet(s) PO BID 09/13/2017 09/19/2017 Inactive Kenalog 40 mg/mL suspension for injection RxNorm: 9011949 1 Milliliter(s) Inj 09/07/2017 09/07/2017 Inactive trazodone 50 mg tablet RxNorm: 704952 TAKE ONE TABLET BY MOUTH AT BEDTIME 08/16/2017 02/11/2018 Inactive gabapentin 300 mg capsule RxNorm: 193481 1 Capsule(s) PO BID 08/03/2017 01/29/2018 Inactive Vitamin D3 5,000 unit tablet RxNorm: 301391 TAKE ONE TABLET BY MOUTH DAILY 08/01/2017 12/28/2017 Inactive ketoconazole 2 % topical cream RxNorm: 874475 APPLY TO AFFECTED AREA(S) TWO TIMES A DAY 05/31/2017 06/29/2017 Inactive hydrochlorothiazide 25 mg tablet RxNorm: 436400 TAKE ONE TABLET BY MOUTH DAILY 05/16/2017 02/09/2018 Inactive lisinopril 20 mg tablet RxNorm: 390769 TAKE ONE TABLET BY MOUTH DAILY 05/16/2017 09/06/2017 Inactive ketoconazole 2 % topical cream RxNorm: 630259 1 Application TOP BID 03/29/2017 04/11/2017 Inactive apply to [facility]ice-deliver to [facility] please betamethasone dipropionate 0.05 % topical ointment RxNorm: 164267 1 Application TOP BID 03/29/2017 04/11/2017 Inactive apply to arm/chests for itching gabapentin 300 mg capsule RxNorm: 994048 1 Capsule(s) PO BID 03/29/2017 08/02/2017 Inactive trazodone 50 mg tablet RxNorm: 068299 TAKE ONE TABLET BY MOUTH AT BEDTIME 03/28/2017 08/15/2017 Inactive Vesicare 10 mg tablet RxNorm: 040766 TAKE ONE TABLET BY MOUTH EVERY NIGHT AT BEDTIME 03/21/2017 12/26/2017 Inactive Vesicare 10 mg tablet RxNorm: 062020 TAKE ONE TABLET BY MOUTH EVERY NIGHT AT BEDTIME 03/21/2017 06/06/2017 Inactive doxycycline hyclate 100 mg capsule RxNorm: 3608860 1 Capsule(s) PO BID 03/18/2017 03/27/2017 Inactive mupirocin 2 % topical ointment RxNorm: 315167 1 Application TOP BID 03/17/2017 08/27/2018 Inactive doxycycline hyclate 100 mg tablet RxNorm: 771483 1 Tablet(s) PO BID 03/09/2017 03/15/2017 Inactive Take probiotic BID while on ABT doxycycline hyclate 100 mg tablet RxNorm: 856965 1 Tablet(s) PO BID 03/09/2017 03/08/2017 Inactive Take probiotic BID while on ABT meloxicam 15 mg tablet RxNorm: 482031 TAKE ONE TABLET BY MOUTH DAILY 02/10/2017 12/06/2017 Inactive Vitamin D3 5,000 unit tablet RxNorm: 526620 TAKE ONE TABLET BY MOUTH DAILY 02/08/2017 07/31/2017 Inactive Vitamin B-12 1,000 mcg/mL injection solution RxNorm: 081233 INJECT 1ML MONTHLY 01/24/2017 07/22/2017 Inactive lisinopril 20 mg tablet RxNorm: 609645 TAKE ONE TABLET BY MOUTH DAILY 12/13/2016 04/11/2017 Inactive trazodone 50 mg tablet RxNorm: 381653 TAKE ONE TABLET BY MOUTH AT BEDTIME 09/24/2016 03/22/2017 Inactive Vitamin D3 5,000 unit tablet RxNorm: 083643 TAKE ONE TABLET BY MOUTH DAILY 09/20/2016 02/07/2017 Inactive lisinopril 20 mg tablet RxNorm: 858595 TAKE ONE TABLET BY MOUTH DAILY 09/13/2016 12/12/2016 Inactive ketoconazole 2 % topical cream RxNorm: 662702 1 Application TOP BID 08/17/2016 08/30/2016 Inactive deliver to [facility] please Pepcid 20 mg tablet RxNorm: 306668 TAKE ONE TABLET BY MOUTH TWICE A DAY 07/12/2016 12/26/2017 Inactive omega-3 acid ethyl esters 1 gram capsule RxNorm: 032623 3 Capsule(s) PO daily 06/18/2016 12/14/2016 Inactive omega-3 acid ethyl esters 1 gram capsule RxNorm: 657643 3 Capsule(s) PO daily 06/18/2016 06/17/2016 Inactive trazodone 50 mg tablet RxNorm: 195220 TAKE ONE TABLET BY MOUTH AT BEDTIME 06/08/2016 08/06/2016 Inactive tamsulosin 0.4 mg capsule RxNorm: 912838 Capsule(s) TAKE ONE CAPSULE BY MOUTH EVERY EVENING 06/04/2016 12/30/2016 Inactive hydrochlorothiazide 25 mg tablet RxNorm: 800916 TAKE ONE TABLET BY MOUTH DAILY 05/10/2016 05/09/2016 Inactive hydrochlorothiazide 25 mg tablet RxNorm: 380006 TAKE ONE TABLET BY MOUTH DAILY 05/10/2016 02/12/2018 Inactive Pepcid 20 mg tablet RxNorm: 727451 1 Tablet(s) PO BID 03/18/2016 03/17/2016 Inactive Pepcid 20 mg tablet RxNorm: 954443 1 Tablet(s) PO BID 03/18/2016 07/11/2016 Inactive lisinopril 20 mg tablet RxNorm: 538135 TAKE ONE TABLET BY MOUTH DAILY 03/18/2016 08/14/2016 Inactive Vitamin D3 5,000 unit tablet RxNorm: 705399 Tablet(s) TAKE ONE TABLET BY MOUTH DAILY 03/18/2016 09/13/2016 Inactive trazodone 50 mg tablet RxNorm: 715609 TAKE ONE TABLET BY MOUTH AT BEDTIME 03/15/2016 06/07/2016 Inactive Vesicare 10 mg tablet RxNorm: 705550 1 Tablet(s) PO QHS 03/15/2016 02/07/2017 Inactive meloxicam 15 mg tablet RxNorm: 624408 TAKE ONE TABLET BY MOUTH DAILY 03/01/2016 01/24/2017 Inactive Bactrim DS 800 mg-160 mg tablet RxNorm: 841756 1 Tablet(s) PO BID 02/10/2016 02/09/2016 Inactive Bactrim DS 800 mg-160 mg tablet RxNorm: 271879 1 Tablet(s) PO BID 02/10/2016 02/16/2016 Inactive Cipro 500 mg tablet RxNorm: 842844 1 Tablet(s) PO BID 02/06/2016 02/09/2016 Inactive Cipro 500 mg tablet RxNorm: 629410 1 Tablet(s) PO BID 02/06/2016 02/05/2016 Inactive Pennsaid 20 mg/gram/actuation (2 %) topical soln in metered- dose pump RxNorm: 7371223 2 pumps TOP BID 01/19/2016 04/19/2016 Inactive tamsulosin 0.4 mg capsule RxNorm: 915497 TAKE ONE CAPSULE BY MOUTH EVERY EVENING 01/12/2016 06/03/2016 Inactive cyanocobalamin (vit B-12) 1,000 mcg/mL injection solution RxNorm: 986905 INJECT 1 ML INTRAMUSCULARLY MONTHLY 01/01/2016 10/26/2016 Inactive Request already responded to by other means (e.g. phone or fax) Vitamin B-12 1,000 mcg/mL injection solution RxNorm: 086192 1 Milliliter(s) Inj monthly 12/24/2015 04/19/2016 Inactive please give syringes for injections Vitamin D3 5,000 unit tablet RxNorm: 723443 TAKE ONE TABLET BY MOUTH DAILY 12/08/2015 03/06/2016 Inactive pantoprazole 40 mg tablet,delayed release RxNorm: 554518 TAKE ONE TABLET BY MOUTH DAILY 12/08/2015 03/17/2016 Inactive trazodone 50 mg tablet RxNorm: 079825 TAKE ONE TABLET BY MOUTH AT BEDTIME 11/10/2015 03/08/2016 Inactive lisinopril 20 mg tablet RxNorm: 634383 TAKE ONE TABLET BY MOUTH DAILY 09/08/2015 03/05/2016 Inactive Vitamin D3 5,000 unit tablet RxNorm: 535681 1 Tablet(s) PO daily 08/12/2015 12/07/2015 Inactive pantoprazole 40 mg tablet,delayed release RxNorm: 130794 1 Tablet(s) PO daily 08/12/2015 12/07/2015 Inactive tamsulosin 0.4 mg capsule RxNorm: 344204 TAKE ONE CAPSULE BY MOUTH EVERY EVENING 07/21/2015 12/17/2015 Inactive trazodone 50 mg tablet RxNorm: 034092 TAKE ONE TABLET BY MOUTH AT BEDTIME 05/09/2015 10/05/2015 Inactive hydrochlorothiazide 25 mg tablet RxNorm: 938348 1 Tablet(s) PO QAM 04/30/2015 04/29/2015 Inactive hydrochlorothiazide 25 mg tablet RxNorm: 780897 TAKE ONE TABLET BY MOUTH DAILY 04/30/2015 02/12/2018 Inactive pantoprazole 40 mg tablet,delayed release RxNorm: 532635 1 Tablet(s) PO daily 04/16/2015 08/11/2015 Inactive meloxicam 15 mg tablet RxNorm: 747138 TAKE ONE TABLET BY MOUTH DAILY 03/03/2015 02/25/2016 Inactive lisinopril 20 mg tablet RxNorm: 947840 1 Tablet(s) PO daily 02/19/2015 09/07/2015 Inactive tamsulosin 0.4 mg capsule RxNorm: 324614 TAKE ONE CAPSULE BY MOUTH EVERY EVENING 01/20/2015 07/18/2015 Inactive cyanocobalamin (vit B-12) 1,000 mcg/mL injection solution RxNorm: 002198 Milliliter(s) INJECT 1ML INTRAMUSCULARLY MONTHLY 12/12/2014 12/22/2014 Inactive trazodone 50 mg tablet RxNorm: 782161 TAKE ONE TABLET BY MOUTH AT BEDTIME 11/14/2014 05/08/2015 Inactive erythromycin 5 mg/gram (0.5 %) eye ointment RxNorm: 993972 1/2 inch OPH QID 11/05/2014 11/14/2014 Inactive acyclovir 800 mg tablet RxNorm: 261019 1 Tablet(s) PO TID 11/05/2014 11/18/2014 Inactive Zofran 4 mg tablet RxNorm: 722383 1 Tablet(s) PO Q4H as needed nausea 11/05/2014 01/03/2015 Inactive Duragesic 12 mcg/hr transdermal patch RxNorm: 760791 1 Patch TD Q72H 11/05/2014 02/04/2015 Inactive Imitrex 100 mg tablet RxNorm: 622898 1 Tablet(s) PO q 12 hours 11/04/2014 04/15/2015 Inactive naproxen 500 mg tablet RxNorm: 458834 1 Tablet(s) PO BID 10/30/2014 11/01/2014 Inactive meloxicam 15 mg tablet RxNorm: 101475 TAKE ONE TABLET BY MOUTH DAILY 10/04/2014 03/02/2015 Inactive Vesicare 5 mg tablet RxNorm: 913418 TAKE ONE TABLET BY MOUTH AT BEDTIME 09/16/2014 07/16/2015 Inactive Vitamin D2 50,000 unit capsule RxNorm: 953282 1 Capsule(s) PO QW 09/06/2014 07/16/2015 Inactive once weekly x 12 weeks tamsulosin ER 0.4 mg capsule,extended release 24 hr RxNorm: 448767 TAKE ONE CAPSULE BY MOUTH EVERY EVENING 06/24/2014 12/20/2014 Inactive tamsulosin ER 0.4 mg capsule,extended release 24 hr RxNorm: 273167 1 Capsule(s) PO QPM 06/24/2014 01/19/2015 Inactive Vitamin D2 50,000 unit capsule RxNorm: 828154 1 Capsule(s) PO QW 05/27/2014 09/05/2014 Inactive once weekly x 12 weeks Vesicare 5 mg tablet RxNorm: 887069 1 Tablet(s) PO QHS 05/23/2014 05/22/2014 Inactive Vesicare 5 mg tablet RxNorm: 986397 1 Tablet(s) PO QHS 05/23/2014 09/15/2014 Inactive trazodone 50 mg tablet RxNorm: 470883 TAKE ONE TABLET BY MOUTH AT BEDTIME 05/13/2014 11/08/2014 Inactive trazodone 50 mg tablet RxNorm: 602019 TAKE ONE TABLET BY MOUTH AT BEDTIME 05/13/2014 11/08/2014 Inactive hydrochlorothiazide 25 mg tablet RxNorm: 318971 1 Tablet(s) PO [facility] 04/18/2014 01/12/2015 Inactive Vitamin D2 50,000 unit capsule RxNorm: 000776 TAKE ONE CAPSULE BY MOUTH ONCE WEEKLY FOR 12 WEEKS 04/09/2014 05/14/2014 Inactive trazodone 50 mg tablet RxNorm: 288614 1 Tablet(s) PO QHS 02/22/2014 05/12/2014 Inactive trazodone 50 mg tablet RxNorm: 582695 1 Tablet(s) PO QHS 02/22/2014 02/21/2014 Inactive Vitamin D2 50,000 unit capsule RxNorm: 274051 TAKE ONE CAPSULE BY MOUTH ONCE WEEKLY FOR 12 WEEKS 02/07/2014 03/06/2014 Inactive meloxicam 15 mg tablet RxNorm: 262772 TAKE ONE TABLET BY MOUTH ONCE A DAY 02/07/2014 08/05/2014 Inactive meloxicam 15 mg tablet RxNorm: 757986 TAKE ONE TABLET BY MOUTH ONCE A DAY 02/07/2014 2014 Inactive clotrimazole 1 % topical cream RxNorm: 332129 1 Application TOP BID 12/25/2013 07/16/2015 Inactive Diflucan 150 mg tablet RxNorm: 308809 1 Tablet(s) PO daily 12/25/2013 12/31/2013 Inactive tamsulosin ER 0.4 mg capsule,extended release 24 hr RxNorm: 812810 1 Capsule(s) PO QPM 11/28/2013 06/23/2014 Inactive cyanocobalamin (vit B-12) 1,000 mcg/mL injection solution RxNorm: 647957 1 Milliliter(s) Inj 11/28/2013 12/12/2014 Inactive Vitamin B-12 1,000 mcg/mL injection solution RxNorm: 483755 1 Milliliter(s) Inj monthly 11/21/2013 02/13/2015 Inactive please give syringes for injections Vitamin D2 50,000 unit capsule RxNorm: 341237 1 Capsule(s) PO QW x 12 weeks 11/21/2013 02/06/2014 Inactive [SAVINGS FOR UNINSURED PATIENTS -- to take addtional 2000 units daily Vitamin B-12 1,000 mcg/mL injection solution RxNorm: 236125 1 Milliliter(s) Inj monthly 11/21/2013 11/20/2013 Inactive meloxicam 15 mg tablet RxNorm: 509330 1 Tablet(s) PO daily 11/20/2013 11/19/2013 Inactive [SAVINGS FOR UNINSURED PATIENTS -- BIN:121007, PCN: [id number], Group: [id number], ID# [id number], Process claim through [employer], for questions: . THIS IS NOT INSURANCE.] meloxicam 15 mg tablet RxNorm: 552719 1 Tablet(s) PO daily 11/20/2013 02/06/2014 Inactive [SAVINGS FOR UNINSURED PATIENTS -- BIN:573976, PCN: [id number], Group: [id number], ID# [id number], Process claim through [employer], for questions: . THIS IS NOT INSURANCE.] meloxicam 15 mg tablet RxNorm: 941493 1 Tablet(s) PO daily 11/20/2013 11/19/2013 Inactive Voltaren 1 % topical gel RxNorm: 103702 4 Application TOP QID apply to back, affected joints four times daily 11/14/2013 11/20/2013 Inactive Iron (ferrous sulfate) 325 mg (65 mg iron) tablet RxNorm: 344631 1 Tablet(s) PO daily No Start Date Active trazodone 50 mg tablet RxNorm: 375623 1 Tablet(s) PO QHS No Start Date Active Vitamin D2 50,000 unit capsule RxNorm: 440902 1 Capsule(s) PO QW No Start Date 05/26/2014 Inactive once weekly x 12 weeks Zithromax Z-Brian 250 mg tablet RxNorm: 977174 1 Tablet(s) PO UD No Start Date 02/06/2018 Inactive Vitamin D2 50,000 unit capsule RxNorm: 945261 1 Capsule(s) PO QW No Start Date 11/20/2013 Inactive gabapentin 300 mg capsule RxNorm: 863383 1 Capsule(s) PO TID No Start Date 03/28/2017 Inactive Vesicare 10 mg tablet RxNorm: 761233 1 Tablet(s) PO QHS No Start Date 03/14/2016 Inactive Toprol XL 25 mg tablet,extended release RxNorm: 856719 1 Tablet(s) PO daily No Start Date 04/19/2018 Inactive Vitamin D3 5,000 unit tablet RxNorm: 205544 1 Tablet(s) PO daily No Start Date 08/11/2015 Inactive Celebrex 200 mg capsule RxNorm: 318280 1 Capsule(s) PO BID No Start Date 07/19/2016 Inactive Imitrex 50 mg tablet RxNorm: 894110 1 Tablet(s) PO now and may repeat up to four times in 24 hours No Start Date 11/03/2014 Inactive Zofran 4 mg tablet RxNorm: 712573 1 Tablet(s) PO Q8 as needed nausea and vomitting No Start Date 10/15/2015 Inactive ranitidine 150 mg tablet RxNorm: 301052 1 Tablet(s) PO BID No Start Date 02/12/2018 Inactive Phenergan 25 mg tablet RxNorm: 380791 1 Tablet(s) PO now No Start Date 04/15/2015 Inactive Tums oral RxNorm: 502426 oral No Start Date 10/15/2015 Inactive Medication Administered Medication Codes Instructions Start Date Status Kenalog 40 mg/mL suspension for injection RxNorm: 3788529 Milliliter 08/28/2018 No longer Active Kenalog 40 mg/mL suspension for injection RxNorm: 7927227 1Milliliter 09/07/2017 No longer Active cyanocobalamin (vit B-12) 1,000 mcg/mL injection solution RxNorm: 175952 1Milliliter 11/28/2013 No longer Active Immunizations Vaccine [...] recently went to an eye doctor in [place]. Reports that he did have hemorrhaging in his right eye which is getting better. headache 04/18/2014 Pt states he recently went to an eye doctor in [place] shortness of breath 02/21/2014 blisters 12/25/2013 insomnia 11/28/2013 back pain 11/14/2013 Results Observation Observation Code Item Item Code Result Date Vitamin D 25 Oh [id number] VITAMIN D, 25 HYDROXY 66.80 ng/mL 03/14/2018 [...] 28.5 pg 03/14/2018 Cbc With Differential Ord2 [place]% 7.6 % 03/14/2018 Cbc With Differential Ord2 [...] 1.28 K/ul 03/14/2018 Cbc With Differential Ord2 [place] ABS# 0.4 K/ul 03/14/2018 Cbc With Differential [...] Lipid Ord30 C/HDL 5.0 Ratio 06/27/2017 %Hba1C Krf492 % HbA1c 10965- 6 6.2 % 06/27/2017 %Hba1C Kfu051 Gluc Ave 131 mg/dL 06/27/2017 Comp Metabolic Oyb986 NA 140 mEq/L 06/27/2017 Comp Metabolic Fhe485 K 4.2 mEq/L 06/27/2017 Comp Metabolic Oax407 CL 100 mEq/L 06/27/2017 Comp Metabolic Nmw266 CO2 32.0 mEq/L 06/27/2017 Comp Metabolic Uhg641 ANION GAP 12 06/27/2017 Comp Metabolic Med216 GLUCOSE 118 mg/dL 06/27/2017 Comp Metabolic Ocb402 Creat 1.0 mg/dL 06/27/2017 Comp Metabolic Wgb084 eGFR 82 ml/min/1.73m2 06/27/2017 Comp Metabolic Qyi422 BUN 26 mg/dL 06/27/2017 Comp Metabolic Ctg882 B/C Ratio 27.1 Ratio 06/27/2017 Comp Metabolic Bai888 CALCIUM 9.6 mg/dL 06/27/2017 Comp Metabolic Euy903 ALK PHOS 46 U/L 06/27/2017 Comp Metabolic Zrb785 AST(SGOT) 23 U/L 06/27/2017 Comp Metabolic Oiz300 ALT(SGPT) 31 U/L 06/27/2017 Comp Metabolic Vzm085 BILI T 0.5 mg/dL 06/27/2017 Comp Metabolic Ogb924 ALBUMIN 4.2 g/dL 06/27/2017 Comp Metabolic Mhy666 TPRO 6.6 g/dL 06/27/2017 Comp Metabolic Rqa595 GLOB 2.4 g/dL 06/27/2017 Comp Metabolic Mdh285 A/G Ratio 1.7 Ratio 06/27/2017 Comp Metabolic Fbg340 Osmo 285 mOsmo 06/27/2017 Cbc With Differential [...] 29.0 pg 10/20/2016 Cbc With Differential Ord2 [place]% 9.0 % 10/20/2016 Cbc With Differential Ord2 [...] 1.33 K/ul 10/20/2016 Cbc With Differential Ord2 [place] ABS# 0.4 K/ul 10/20/2016 Cbc With Differential Ord2 Eos ABS# 0.2 K/ul 10/20/2016 Cbc With Differential Ord2 Baso ABS# 0.0 K/ul 10/20/2016 Comp Metabolic Mkj092 NA 143 mEq/L 10/20/2016 Comp Metabolic Kaj368 K 4.6 mEq/L 10/20/2016 Comp Metabolic Lkh683 CL 104 mEq/L 10/20/2016 Comp Metabolic Egv286 CO2 31.0 mEq/L 10/20/2016 Comp Metabolic Jbc164 ANION GAP 13 10/20/2016 Comp Metabolic Stg517 GLUCOSE 117 mg/dL 10/20/2016 Comp Metabolic Uih176 Creat 1.1 mg/dL 10/20/2016 Comp Metabolic Vhm245 eGFR 74 ml/min/1.73m2 10/20/2016 Comp Metabolic Vca042 BUN 27 mg/dL 10/20/2016 Comp Metabolic Krc380 B/C Ratio 25.7 Ratio 10/20/2016 Comp Metabolic Vsa732 CALCIUM 9.3 mg/dL 10/20/2016 Comp Metabolic Nxr173 ALK PHOS 47 U/L 10/20/2016 Comp Metabolic Dkz027 AST(SGOT) 18 U/L 10/20/2016 Comp Metabolic Jzf249 ALT(SGPT) 22 U/L 10/20/2016 Comp Metabolic Kew301 BILI T 0.5 mg/dL 10/20/2016 Comp Metabolic Mej808 ALBUMIN 3.9 g/dL 10/20/2016 Comp Metabolic Ljg282 TPRO 6.5 g/dL 10/20/2016 Comp Metabolic Uxf046 GLOB 2.6 g/dL 10/20/2016 Comp Metabolic Zph899 A/G Ratio 1.5 Ratio 10/20/2016 Comp Metabolic Cfd189 Osmo 291 mOsmo 10/20/2016 Tsh Ord6 hTSH II 1.56 uIU/mL 10/20/2016 Lipid Ord30 CHOL 153 mg/dL 10/20/2016 Lipid Ord30 HDL 34.0 mg/dl 10/20/2016 Lipid Ord30 TRIG 123 mg/dL 10/20/2016 Lipid Ord30 LDL 94 mg/dL 10/20/2016 Lipid Ord30 C/HDL 4.5 Ratio 10/20/2016 B12 Qni830 B12 544.00 pg/ml 10/20/2016 Comp Metabolic Yqw321 NA 138 mEq/L 05/13/2016 Comp Metabolic Ycn507 K 4.2 mEq/L 05/13/2016 Comp Metabolic Jgg744 CL 102 mEq/L 05/13/2016 Comp Metabolic Nov718 CO2 30.0 mEq/L 05/13/2016 Comp Metabolic Mlm738 ANION GAP 10 05/13/2016 Comp Metabolic Qzk447 GLUCOSE 113 mg/dL 05/13/2016 Comp Metabolic Dfx300 Creat 1.0 mg/dL 05/13/2016 Comp Metabolic Cfg497 eGFR 77 ml/min/1.73m2 05/13/2016 Comp Metabolic Fkx151 BUN 26 mg/dL 05/13/2016 Comp Metabolic Gnd017 B/C Ratio 25.5 Ratio 05/13/2016 Comp Metabolic Mbk894 CALCIUM 9.7 mg/dL 05/13/2016 Comp Metabolic Djy144 ALK PHOS 51 U/L 05/13/2016 Comp Metabolic Mfh453 AST(SGOT) 17 U/L 05/13/2016 Comp Metabolic Ijc642 ALT(SGPT) 20 U/L 05/13/2016 Comp Metabolic Sbh459 BILI T 0.6 mg/dL 05/13/2016 Comp Metabolic Vtc705 ALBUMIN 4.0 g/dL 05/13/2016 Comp Metabolic Use686 TPRO 6.6 g/dL 05/13/2016 Comp Metabolic Mec199 GLOB 2.6 g/dL 05/13/2016 Comp Metabolic Xkq642 A/G Ratio 1.6 Ratio 05/13/2016 Comp Metabolic Xee098 Osmo 281 mOsmo 05/13/2016 Lipid Ord30 CHOL [...] 29.3 pg 02/11/2016 Cbc With Differential Ord2 [place]% 7.7 % 02/11/2016 Cbc With Differential Ord2 [...] 1.18 K/ul 02/11/2016 Cbc With Differential Ord2 [place] ABS# 0.4 K/ul 02/11/2016 Cbc With Differential Ord2 Eos ABS# 0.1 K/ul 02/11/2016 Cbc With Differential Ord2 Baso ABS# 0.0 K/ul 02/11/2016 Comp Metabolic Wdr418 NA 138 mEq/L 02/11/2016 Comp Metabolic Ina857 K 4.0 mEq/L 02/11/2016 Comp Metabolic Jvc706 CL 97 mEq/L 02/11/2016 Comp Metabolic Zzv927 CO2 32.0 mEq/L 02/11/2016 Comp Metabolic Kbi101 ANION GAP 13 02/11/2016 Comp Metabolic Wya266 GLUCOSE 117 mg/dL 02/11/2016 Comp Metabolic Kbh844 Creat 1.0 mg/dL 02/11/2016 Comp Metabolic Myn899 eGFR 81 ml/min/1.73m2 02/11/2016 Comp Metabolic Tnn198 BUN 21 mg/dL 02/11/2016 Comp Metabolic Nil876 B/C Ratio 21.4 Ratio 02/11/2016 Comp Metabolic Tdz952 CALCIUM 9.2 mg/dL 02/11/2016 Comp Metabolic Qyp009 ALK PHOS 48 U/L 02/11/2016 Comp Metabolic Lgw232 AST(SGOT) 18 U/L 02/11/2016 Comp Metabolic Dir669 ALT(SGPT) 22 U/L 02/11/2016 Comp Metabolic Fca270 BILI T 0.5 mg/dL 02/11/2016 Comp Metabolic Kxm585 ALBUMIN 3.9 g/dL 02/11/2016 Comp Metabolic Oto552 TPRO 6.3 g/dL 02/11/2016 Comp Metabolic Ghu271 GLOB 2.5 g/dL 02/11/2016 Comp Metabolic Liy446 A/G Ratio 1.6 Ratio 02/11/2016 Comp Metabolic Cxs632 Osmo 280 mOsmo 02/11/2016 Lipid Ord30 CHOL 163 mg/dL 02/11/2016 Lipid Ord30 HDL 35.0 mg/dl 02/11/2016 Lipid Ord30 TRIG 200 mg/dL 02/11/2016 Lipid Ord30 LDL 88 mg/dL 02/11/2016 Lipid Ord30 C/HDL 4.7 Ratio 02/11/2016 %Hba1C Glb855 % HbA1c 02620- 6 6.5 % 02/11/2016 %Hba1C Ibl155 Gluc Ave 140 mg/dL 02/11/2016 Tsh Ord6 hTSH II 2.07 uIU/mL 02/11/2016 B12 Lrf020 B12 563.00 pg/ml 02/11/2016 Culture Urine [id number] URINE CULTURE SEE NOTES 02/10/2016 Culture Urine [id number] Continued Results 02/10/2016 Urine Culture Ucult Complete [...] hours from collection if refrigerated) 11/04/2015 %Hba1C Hjp871 % HbA1c 77445- 6 6.4 % 04/16/2015 %Hba1C Oke654 Gluc Ave 137 mg/dL 04/16/2015 Tsh Ord6 hTSH II 3.33 uIU/mL 02/07/2015 Comp Metabolic Dzt308 NA 136 mEq/L 02/07/2015 Comp Metabolic Dil170 K 3.9 mEq/L 02/07/2015 Comp Metabolic Sgh396 CL 98 mEq/L 02/07/2015 Comp Metabolic Qte018 CO2 31.0 mEq/L 02/07/2015 Comp Metabolic Jlb958 ANION GAP 11 02/07/2015 Comp Metabolic Gzu090 GLUCOSE 139 mg/dL 02/07/2015 Comp Metabolic Nge750 Creat 0.9 mg/dL 02/07/2015 Comp Metabolic Cnq888 eGFR 87 ml/min/1.73m2 02/07/2015 Comp Metabolic Kou571 BUN 20 mg/dL 02/07/2015 Comp Metabolic Gwh400 B/C Ratio 21.7 Ratio 02/07/2015 Comp Metabolic Hvz414 CALCIUM 9.7 mg/dL 02/07/2015 Comp Metabolic Voq714 ALK PHOS 55 U/L 02/07/2015 Comp Metabolic Mqf898 AST(SGOT) 20 U/L 02/07/2015 Comp Metabolic Cfm377 ALT(SGPT) 27 U/L 02/07/2015 Comp Metabolic Zzr854 BILI T 0.5 mg/dL 02/07/2015 Comp Metabolic Qlf488 ALBUMIN 4.3 g/dL 02/07/2015 Comp Metabolic Lgx293 TPRO 6.9 g/dL 02/07/2015 Comp Metabolic Zuj103 GLOB 2.6 g/dL 02/07/2015 Comp Metabolic Jsy517 A/G Ratio 1.7 Ratio 02/07/2015 Comp Metabolic Eyb960 Osmo 277 mOsmo 02/07/2015 Cbc With Differential [...] Ord2 RDW 14.8 % 02/07/2015 A1C HPLC [id number] A1C HPLC 95334-3 6.0 % 05/23/2014 VIT B 12 [id number] VIT B 12 479 PG/ML 05/23/2014 VIT D TOTL 4000539 VIT D TOTL 29 NG/ML 05/23/2014 Review [...] clear 02/08/2018 None Full Exam - General 1995 Ears/Nose/Throat oral cavity/pharynx/larynx Posterior Pharynx: clear post [...] deformity 11/28/2013 atrophy Full Exam - General 1995 Musculoskeletal lower extremity Palpation - thigh: normal on palpation 11/28/2013 None Full Exam - General 1995 [...] 4: G0439 12/27/2017 THER/PROPH/DIAG INJ SC/IM CPT-4: 10983 09/07/2017 TRIAMCINOLONE ACET INJ NOS CPT-4: J3301 09/07/2017 ROUTINE VENIPUNCTURE CPT- 4: 05782 05/23/2014 THER/PROPH/DIAG INJ SC/IM CPT-4: 00398 11/28/2013 VITAMIN B12 INJECTION CPT- 4: J3420 11/28/2013 Vital Signs Date Vital 09/04/2018 Blood Pressure 1: 143/80 Code: 8480-6 BMI: 36.8 Code: 89136-5 Heart Rate 1: 88 bpm Height: 6' SpO2: 93% Weight: 271 lbs 08/28/2018 Blood Pressure 1: 144/72 Code: 8480-6 BMI: 36.8 Code: 64252-4 Heart Rate 1: 65 bpm Height: 6' SpO2: 97% Weight: 271 lbs 08/21/2018 Blood Pressure 1: 110/66 Code: 8480-6 BMI: 36.6 Code: 49546-4 Heart Rate 1: 70 bpm Height: 6' SpO2: 93% Weight: 270 lbs 06/27/2018 Blood Pressure 1: 124/70 Code: 8480-6 BMI: 36.6 Code: 40529-4 Heart Rate 1: 64 bpm Height: 6' SpO2: 96% Weight: 270 lbs 04/20/2018 Blood Pressure 1: 126/74 Code: 8480-6 BMI: 36.6 Code: 56465-3 Heart Rate 1: 60 bpm Height: 6' SpO2: 94% Weight: 270 lbs 03/21/2018 Blood Pressure 1: 138/74 Code: 8480-6 BMI: 36.8 Code: 14668-6 Heart Rate 1: 81 bpm Height: 6' SpO2: 98% Weight: 271 lbs 02/08/2018 Blood Pressure 1: 132/74 Code: 8480-6 BMI: 37.0 Code: 50519-2 Heart Rate 1: 82 bpm Height: 6' SpO2: 97% Weight: 273 lbs 12/27/2017 Blood Pressure 1: 148/78 Code: 8480-6 BMI: 36.3 Code: 71970-3 Heart Rate 1: 78 bpm Height: 6' SpO2: 93% Waist Measure (cm): 117 cm Weight: 268 lbs 12/06/2017 Blood Pressure 1: 122/70 Code: 8480-6 BMI: 36.6 Code: 75742-7 Heart Rate 1: 76 bpm Height: 6' SpO2: 93% Weight: 270 lbs 11/01/2017 BMI: 36.9 Code: 70550-1 Height: 6' Weight: 272 lbs 09/07/2017 Blood Pressure 1: 140/78 Code: 8480-6 BMI: 35.8 Code: 64345-4 Heart Rate 1: 76 bpm Height: 6' SpO2: 98% Weight: 264 lbs 06/07/2017 Blood Pressure 1: 138/86 Code: 8480-6 BMI: 36.3 Code: 84279-5 Heart Rate 1: 66 bpm Height: 6' SpO2: 95% Weight: 268 lbs 05/19/2017 Blood Pressure 1: 152/84 Code: 8480-6 BMI: 36.8 Code: 92303-1 Heart Rate 1: 70 bpm Height: 6' SpO2: 93% Weight: 271 lbs 05/09/2017 Blood Pressure 1: 138/76 Code: 8480-6 BMI: 36.6 Code: 73764-6 Heart Rate 1: 79 bpm Height: 6' SpO2: 93% Weight: 270 lbs 04/25/2017 Blood Pressure 1: 150/80 Code: 8480-6 Heart Rate 1: 58 bpm Height: SpO2: 94% Weight: 2017 Blood Pressure 1: 138/80 Code: 8480-6 BMI: 36.5 Code: 52985-9 Heart Rate 1: 76 bpm Height: 6' SpO2: 96% Weight: 269 lbs 03/29/2017 Blood Pressure 1: 118/68 Code: 8480-6 BMI: 36.9 Code: 17871-0 Heart Rate 1: 61 bpm Height: 6' SpO2: 95% Weight: 272 lbs 03/17/2017 Blood Pressure 1: 140/78 Code: 8480-6 BMI: 36.8 Code: 58722-0 Heart Rate 1: 91 bpm Height: 6' SpO2: 93% Weight: 271 lbs 03/08/2017 Blood Pressure 1: 152/84 Code: 8480-6 BMI: 36.8 Code: 64474-9 Heart Rate 1: 72 bpm Height: 6' SpO2: 92% Temperature: 36.6 (C) / 97.8 (F) Weight: 271 lbs 02/17/2017 Blood Pressure 1: 110/64 Code: 8480-6 BMI: 36.5 Code: 31766-6 Heart Rate 1: 62 bpm Height: 6' SpO2: 96% Weight: 269 lbs 01/18/2017 Blood Pressure 1: 140/80 Code: 8480-6 BMI: 36.5 Code: 69753-0 Heart Rate 1: 62 bpm Height: 6' SpO2: 94% Weight: 269 lbs 10/19/2016 Blood Pressure 1: 120/80 Code: 8480-6 BMI: 35.9 Code: 89295-3 Heart Rate 1: 64 bpm Height: 6' SpO2: 97% Weight: 265 lbs 08/17/2016 Blood Pressure 1: 112/76 Code: 8480-6 BMI: 36.1 Code: 89043-8 Heart Rate 1: 65 bpm Height: 6' SpO2: 97% Weight: 266 lbs 07/20/2016 Blood Pressure 1: 126/78 Code: 8480-6 BMI: 35.5 Code: 37059-9 Heart Rate 1: 60 bpm Height: 6' SpO2: 95% Weight: 262 lbs 04/19/2016 Blood Pressure 1: 132/78 Code: 8480-6 BMI: 35.1 Code: 45971-6 Heart Rate 1: 65 bpm Height: 6' SpO2: 98% Weight: 259 lbs 01/19/2016 Blood Pressure 1: 140/64 Code: 8480-6 BMI: 34.4 Code: 50666-3 Heart Rate 1: 61 bpm Height: 6' SpO2: 97% Weight: 254 lbs 10/16/2015 Blood Pressure 1: 108/66 Code: 8480-6 BMI: 35.3 Code: 27598-3 Heart Rate 1: 65 bpm Height: 6' SpO2: 96% Weight: 260 lbs 07/17/2015 Blood Pressure 1: 136/74 Code: 8480-6 BMI: 35.8 Code: 56396-4 Heart Rate 1: 59 bpm Height: 6' SpO2: 97% Weight: 263 lbs 13 07/03/2015 Weight: 265 lbs 04/16/2015 Blood Pressure 1: 130/82 Code: 8480-6 BMI: 36.1 Code: 61329-8 Heart Rate 1: 7694 bpm Height: 6' SpO2: 94% Weight: 266 lbs 02/19/2015 Blood Pressure 1: 160/90 Code: 8480-6 BMI: 35.8 Code: 96740-6 Heart Rate 1: 78 bpm Height: 6' SpO2: 94% Weight: 264 lbs 11/20/2014 Blood Pressure 1: 140/96 Code: 8480-6 BMI: 34.6 Code: 21912-9 Heart Rate 1: 92 bpm Height: 6' SpO2: 95% Weight: 255 lbs 11/05/2014 Blood Pressure 1: 132/70 Code: 8480-6 BMI: 34.6 Code: 06712-6 Heart Rate 1: 96 bpm Height: 6' SpO2: 98% Weight: 255 lbs 09/19/2014 Blood Pressure 1: 152/86 Code: 8480-6 BMI: 35.8 Code: 36253-0 Heart Rate 1: 82 bpm Height: 6' SpO2: 95% Weight: 264 lbs 07/24/2014 Blood Pressure 1: 142/82 Code: 8480-6 BMI: 34.7 Code: 72355-0 Heart Rate 1: 72 bpm Height: 6' Weight: 256 lbs 05/23/2014 Blood Pressure 1: 150/82 Code: 8480-6 BMI: 33.4 Code: 42098-1 Heart Rate 1: 68 bpm Height: 6' Weight: 246 lbs 04/18/2014 Blood Pressure 1: 132/84 Code: 8480-6 BMI: 33.2 Code: 68114-5 Heart Rate 1: 80 bpm Height: 6' Weight: 245 lbs 02/21/2014 Blood Pressure 1: 138/82 Code: 8480-6 BMI: 32.4 Code: 16288-1 Heart Rate 1: 85 bpm Height: 6' SpO2: 98% Weight: 239 lbs 12/25/2013 Blood Pressure 1: 146/80 Code: 8480-6 BMI: 30.5 Code: 03211-4 Heart Rate 1: 100 bpm Height: 6' Weight: 225 lbs 11/28/2013 Blood Pressure 1: 120/64 Code: 8480-6 BMI: 30.4 Code: 45866-9 Heart Rate 1: 68 bpm Height: 6' Weight: 224 lbs 11/14/2013 Blood Pressure 1: 124/80 Code: 8480-6 BMI: 30.0 Code: 53019-2 Heart Rate 1: 76 bpm Height: 6' [...] not bring in readings 08/21/2018 -Checked at [facility] Pertinent Findings Denies dizziness 08/21/2018 None Pertinent [...] Maxitrol and Polytrim seeing eye dr in [place]. Reports eye still feels irritated. headache Quality [...] data Encounters Encounter Performer Location Codes Date ([id number]) 64169 EST. PATIENT, LEVEL II Diagnosis: Rash and other nonspecific skin eruption[ICD10: R21] [facility] CPT-4: 64828 09/04/2018 [id number]) 76827 EST. PATIENT, LEVEL III Diagnosis: Rash and other nonspecific skin eruption[ICD10: R21] Diagnosis: Other pruritus[ICD10: L29.8] [facility] CPT-4: 19450 08/28/2018 [id number]) 10174 EST. PATIENT, LEVEL IV Diagnosis: Essential (primary) hypertension[ICD10: I10] Diagnosis: Pain in right shoulder[ICD10: M25.511] Diagnosis: Muscle weakness (generalized)[ICD10: M62.81] [facility] CPT-4: 94412 08/21/2018 16121 EST. PATIENT, LEVEL III Diagnosis: Tinea barbae and tinea capitis[ICD10: B35.0] Glory Long MD, [facility] CPT-4: 57073 06/27/2018 ([id number]) 30089 EST. 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 PATIENT, LEVEL III Diagnosis: Acute bronchitis due to other specified organisms[ICD10: J20.8] Antoinette Long MD, [facility] CPT-4: 91186 02/08/2018 ([id number]) 93128 EST. 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 PATIENT, LEVEL III Diagnosis: Essential (primary) hypertension[ICD10: I10] Diagnosis: Localized edema[ICD10: R60.0] Diagnosis: Cellulitis of left lower limb[ICD10: L03.116] Quyen Long MD, [facility] CPT-4: 68232 06/07/2017 ([id number]) 65220 EST. 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 PATIENT, LEVEL II Diagnosis: Rash and other nonspecific skin eruption[ICD10: R21] Glory Long MD, [facility] CPT-4: 71316 05/09/2017 ([id number]) 22212 EST. PATIENT, LEVEL II Diagnosis: Rash and other nonspecific skin eruption[ICD10: R21] Glory Long MD, [facility] CPT-4: 99763 04/25/2017 ([id number]) 02124 EST. PATIENT, LEVEL III Diagnosis: Cellulitis of left lower limb[ICD10: L03.116] Diagnosis: Rash and other nonspecific skin eruption[ICD10: R21] Glory Long MD, [facility] CPT-4: 03558 2017 ([id number]) 57351 EST. PATIENT, LEVEL III Diagnosis: Cellulitis of left lower limb[ICD10: L03.116] Diagnosis: Rash and other nonspecific skin eruption[ICD10: R21] Glory Long MD, [facility] CPT-4: 99648 03/29/2017 02250 EST. PATIENT, LEVEL IV Diagnosis: Cellulitis of left lower limb[ICD10: L03.116] Antoinette Long MD, [facility] CPT-4: 16350 03/17/2017 ([id number]) 15435 EST. PATIENT, LEVEL III Diagnosis: Rash and other nonspecific skin eruption[ICD10: R21] Glory Long MD, [facility] CPT-4: 96238 03/08/2017 36532 EST. PATIENT, LEVEL IV Diagnosis: Essential (primary) hypertension[ICD10: I10] Diagnosis: Muscle weakness (generalized)[ICD10: M62.81] Diagnosis: Body mass index (BMI) 36.0-36.9, adult[ICD10: Z68.36] Diagnosis: Family history of ischemic heart disease and other diseases of the circulatory system[ICD10: Z82.49] Antoinette Long MD, [facility] CPT-4: 52129 02/17/2017 ([id number]) 68802 EST. PATIENT, LEVEL IV Diagnosis: Essential (primary) hypertension[ICD10: I10] Diagnosis: Muscle weakness (generalized)[ICD10: M62.81] Quyen Long MD, [facility] CPT-4: 42103 01/18/2017 ([id number]) 53754 EST. 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 PATIENT, LEVEL III Diagnosis: Pain in left shoulder[ICD10: M25.512] Diagnosis: Rash and other nonspecific skin eruption[ICD10: R21] Glory Long MD, [facility] CPT-4: 21611 08/17/2016 ([id number]) 92180 EST. PATIENT, LEVEL IV Diagnosis: Essential (primary) hypertension[ICD10: I10] Diagnosis: Pain in left shoulder[ICD10: M25.512] Quyen Long MD, [facility] CPT-4: 05325 07/20/2016 ([id number]) 54803 EST. 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 PATIENT, LEVEL IV Diagnosis: Essential (primary) hypertension[ICD10: I10] Diagnosis: Other abnormal glucose[ICD10: R73.09] Diagnosis: Gastro-esophageal reflux disease without esophagitis[ICD10: K21.9] Diagnosis: Obesity, unspecified[ICD10: E66.9] Quyen Long MD, [facility] CPT- 4: 69248 04/16/2015 ([id number]) 95176 EST. PATIENT, LEVEL IV Diagnosis: ESSENTIAL HYPERTENSION[ICD9: 401.9] Diagnosis: OBESITY[ICD9: 278.00] Diagnosis: Post-polio limb muscle weakness[ICD9: 728.87] Quyen Long MD, [facility] CPT-4: 39891 02/19/2015 ([id number]) 76589 EST. PATIENT, LEVEL IV Diagnosis: Shingles outbreak[ICD9: 053.9] Diagnosis: ESSENTIAL HYPERTENSION[ICD9: 401.9] Diagnosis: Earache[ICD9: 388.70] Quyen Long MD, [facility] CPT-4: 84663 11/20/2014 ([id number] 04974 EST. PATIENT, LEVEL III Diagnosis: Shingles outbreak[ICD9: 053.9] Diagnosis: Face pain[ICD9: 784.0] Diagnosis: Pain, eye, right[ICD9: 379.91] Quyen Long MD, [facility] CPT-4: 67830 11/05/2014 ([id number]) 62780 EST. PATIENT, LEVEL V Diagnosis: Post-polio limb muscle weakness[ICD9: 728.87] Diagnosis: Post-polio syndrome[ICD9: 138] Diagnosis: Leg weakness[ICD9: 729.89] Diagnosis: Weakness[ICD9: 780.79] Diagnosis: Foot drop[ICD9: 736.79] Quyen Long MD, [facility] CPT-4: 80457 09/19/2014 ([id number]) 74190 EST. PATIENT, LEVEL IV Diagnosis: ESSENTIAL HYPERTENSION[ICD9: 401.9] Diagnosis: Carotid bruit[ICD9: 785.9] Diagnosis: Seborrheic dermatitis[ICD9: 690.10] Diagnosis: Post-polio syndrome[ICD9: 138] Diagnosis: Vitamin D deficiency[ICD9: 268.9] Quyen Long MD, [facility] CPT- 4: 83116 07/24/2014 [id number]) 94106 EST. PATIENT, LEVEL IV Diagnosis: Neck pain[ICD9: 723.1] Diagnosis: Post-polio syndrome[ICD9: 138] Diagnosis: Vitamin D deficiency[ICD9: 268.9] Diagnosis: Vitamin B12 deficiency[ICD9: 266.2] Diagnosis: Nocturia[ICD9: 788.43] Diagnosis: Leg weakness[ICD9: 729.89] Diagnosis: Elevated blood sugar[ICD9: 790.29] Glory Long MD, [facility] CPT- 4: 77954 05/23/2014 ([id number]) 03960 EST. PATIENT, LEVEL IV Diagnosis: ESSENTIAL HYPERTENSION[ICD9: 401.9] Diagnosis: HEADACHE[ICD9: 784.0] Diagnosis: EDEMA[ICD9: 782.3] Quyen Long MD, [facility] CPT-4: 15016 04/18/2014 18297 EST. PATIENT, LEVEL IV Diagnosis: Insomnia[ICD9: 780.52] Diagnosis: Post-polio syndrome[ICD9: 138] Diagnosis: Vitamin D deficiency[ICD9: 268.9] Diagnosis: Nocturnal hypoxemia[ICD9: 799.02] Glory Long MD, [facility] CPT- 4: 23949 02/21/2014 ([id number]) 17126 EST. PATIENT, LEVEL III Diagnosis: Tinea pedis[ICD9: 110.4] Diagnosis: Post-polio limb muscle weakness[ICD9: 728.87] Glory Long MD, [facility] CPT-4: 93646 12/25/2013 ([id number]) 76506 EST. PATIENT, LEVEL IV Diagnosis: Insomnia[ICD9: 780.52] Diagnosis: Vitamin B12 deficiency (dietary) anemia[ICD9: 281.1] Diagnosis: VITAMIN D DEFICIENCY[ICD9: 268.9] Diagnosis: Weakness[ICD9: 780.79] Quyen Long MD, [facility] CPT-4: 86195 11/28/2013 ([id number]) OFFICE/OUTPATIENT VISIT NEW Diagnosis: Post-polio limb muscle weakness[ICD9: 728.87] Diagnosis: Post-polio syndrome[ICD9: 138] Diagnosis: Insomnia[ICD9: 780.52] Diagnosis: Arrhythmia[ICD9: 427.9] Quyen Long MD, [facility] CPT-4: 84567 11/14/2013 Plan of Care Planned Activity Notes Codes Status Date Visit Plan: Rash-resolved -continue topical betamethasone cream as ordered-call if rash returns 09/04/2018 Patient Education: Patient Medication Summary Completed 09/04/2018 Visit Plan: Rash-culture today in the office -kenalog injection for acute symptoms -start prednisone tomorrow- treat with abx if indicated on culture- follow up in 1 week, sooner if needed 08/28/2018 Appointment: Glory Dalton WPtel: [address] [place], [place] [phone] (30 min) [facility] 08/28/2018 Patient Education: Patient Medication Summary Completed 08/28/2018 Appointment: Quyen Long WPtel: [facility]9 [facility] (15 min) Moderate 08/24/2018 Visit Plan: Hypertension [...] Post-Polio syndrome. 08/21/2018 Appointment: Quyen Long WPtel: [facility]7 [facility] (15 min) Moderate 08/21/2018 Patient Education: Patient Medication Summary Completed 08/21/2018 Patient Education: Hypertension Completed 08/21/2018 Visit Plan: Tinea barbae -rx for ketoconazole written and instructed patient on use -instructed patient to call or return to clinic if symptoms do not resolve or if any worse. Patient verbalized understanding of plan. 06/27/2018 Appointment: Glory Dalton WPtel: [facility]9 [phone] (30 min) Complex 06/27/2018 Patient Education: Patient [...] his shoulder. 04/20/2018 Appointment: Quyen Long WPtel: [facility]4 [facility] (15 min) Moderate 04/20/2018 Patient Education: Patient Medication Summary Completed 04/20/2018 Patient Education: Hypertension Completed 04/20/2018 Appointment: Quyen Long [facility]Ptel[phone] [facility] (15 min) Moderate 04/11/2018 Visit Plan: Post polio syndrome -right leg weakness -patient needs repair and adjustment of his right leg brace that helps with his symptoms of instability and weakness and allows him to ambulate -will send rx to [place] [facility] 03/21/2018 Appointment: Glory Dalton WPtel: [phone] [phone] [place] (15 min) Moderate 03/21/2018 Patient [...] acutely worsen. 02/08/2018 App[facility]ment[phone] [facility] (30 min) Complex 02/08/2018 Patient Education: Patient [...] Completed 12/27/2017 Appointment: Quyen Long WPtel: [phone] [facility] (15 min) Moderate 12/08/2017 Visit Plan: Hypertension [...] injection. 12/06/2017 Appointment: Quyen Long WPtel[phone] [facility] (15 min) Moderate 12/06/2017 Patient Education: Patient [...] weight check. 09/07/2017 Appointment: Quyen Long WPtel: [facility] [address] (15 min) Moderate 09/07/2017 Patient Education: Patient [...] lower leg. 06/07/2017 Appointment: Quyen Long WPtel: [facility]7 [facility] (15 min) Moderate 06/07/2017 Patient Education: Patient [...] compression recommended. 05/19/2017 Appointment: Quyen Long WPtel: [facility]1 [facility] (15 min) Moderate 05/19/2017 Patient Education: Patient Medication Summary Completed 05/19/2017 Patient Education: Obesity Completed 05/19/2017 Patient Education: Hypertension Completed 05/19/2017 Visit Plan: Rash-left glia-xbslwcel-wferwrmpwe patient to continue using ketoconazole plus betamethasone equal parts and increase to TID-leave foot open to air as much as possible-follow up in 2 weeks, sooner if needed. 05/09/2017 Appointment: Glory Dalton WPtel: [facility]5 [phone] (30 min) Complex 05/09/2017 Patient Education: Patient Medication Summary Completed 05/09/2017 Patient Education: Obesity Completed 05/09/2017 Visit Plan: Rash-left foot-Dr Long in to evaluate rash-instructed patient to start using ketoconazole plus betamethasone equal parts TID -follow up in 2 weeks, sooner if needed. 04/25/2017 Appointment: Glory Dalton WPtel: [facility]5 [phone] (30 min) Complex 04/25/2017 Patient Education: Patient Medication Summary Completed 04/25/2017 Visit Plan: Cellulitis of left foot-no longer draining-no open areas-no excoriation-slightly red-okay to d/c all treatments-keep clean and monitor-call if redness does not resolve Rash-resolved 2017 Appointment: Glory Dalton WPtel: [facility]5 [phone] (30 min) Complex 2017 Patient Education: Patient Medication Summary Completed 2017 Patient Education: Obesity Completed 2017 Visit Plan: Cellulitis-left foot-MSSA dzrszvqt-mnrqeryhg-dfmuq air in the evening-continue bactroban ointment twice daily-stop using alcohol on foot-no papertowels or abrasives to foot Wrcb-epev-ge for betamethasone provided and instructed on use 03/29/2017 Appointment: Glory Dalton WPtel: [facility]5 [phone] (30 min) Complex 03/29/2017 Patient Education: Patient Medication Summary Completed 03/29/2017 Patient Education: Obesity Completed 03/29/2017 [facility]ment: [phone] [phone] (30 min) Complex 03/22/2017 Visit Plan: Cellulitis [...] warmth, discharge. 03/17/2017 Appointment: Antoinette Arndt [facility]Ptel[phone] [facility] (30 min) Complex 03/17/2017 Patient Education: Patient [...] the break. 01/18/2017 Appointment: Quyen Long WPtel: [facility]5 [facility] (15 min) Moderate 01/18/2017 Patient Education: Patient [...] and weakness. 10/19/2016 Appointment: Quyen Long WPtel: [facility]5 [facility] (15 min) Moderate 10/19/2016 Patient Education: Patient Medication Summary Completed 10/19/2016 Patient Education: Obesity Completed 10/19/2016 Visit Plan: Left shoulder pain-hospital f/u recent shoulder surgery with Dr Wilson-doing well-sees Dr Wilson this afternoon for suture removal-pain improved Bnqm-wpou-hdhqafz fungal infection-will treat with ket oconazole -follow up in 2 weeks 08/17/2016 Appointment: Glory Dalton WPtel: [facility]4 [phone] [place] (30 min) Complex 08/17/2016 Patient [...] ambulating. 07/20/2016 Appointment: Quyen Long WPtel: [phone] [facility] (15 min) Moderate 07/20/2016 Patient Education: Patient [...] for strengthening. 04/19/2016 Appointment: Quyen Long [facility]el[phone] (15 min) Moderate 04/19/2016 Patient Education: Patient [...] up appointment. 01/19/2016 Appointment: Quyen Long WPtel: [id number] (15 min) Moderate 01/19/2016 Patient Education: Patient Medication Summary Completed 01/19/2016 Patient Education: Obesity Completed 01/19/2016 Patient Education: Hypertension Completed 01/19/2016 Referral: Dr Mccauley Referral Completed 11/11/2015 Care Plan: Referral Order SNOMED-CT : [id number] Pending 11/03/2015 Visit Plan: Hypertension - well [...] with injection 10/16/2015 Appointment: Quyen Long WPtel: [facility] (15 min) Moderate 10/16/2015 Patient Education: Patient [...] center - 02/19/2015 Appointment: Quyen Long WPtel: [facility] [place] (15 min) Moderate 02/19/2015 Patient Education: Patient [...] [facility]el[phone] [place] Follow up 11/20/2014 Patient Education: Patient Medication [...] doctor ESME. 11/05/2014 Appointment: Quyen Long WPtel: [address] [place], [place] [id number] (15 min) Moderate 11/05/2014 Patient Education: Patient [...] to participate in activities outside of the long-term. He has a family that would like [...] foot. 09/19/2014 Appointment: Quyen Long WPtel[phone] [facility] [place] Follow up 09/19/2014 Patient Education: Patient [...] deficiency - recommended repeat of vitamin d [id number] weekly x 12 weeks and increase vitamin d to 5000 units daily. 07/24/2014 Appointment: Quyen Long WPtel[phone] [facility] [place] Follow up 07/24/2014 Patient Education: Patient [...] B12 level 05/23/2014 Appointment: [phone] Follow up 05/23/2014 Patient Education: Patient Medication Summary Completed 05/23/2014 Patient Education: .Cervicalgia Neck Pain Completed 05/23/2014 Appointment: Quyen Long WPtel: [address] [place], [place] [phone] Follow up 05/22/2014 Visit Plan: Edema - [...] at home. 04/18/2014 Appointment: Quyen Long WPtel: [address] [place], [place] [phone] Follow up 04/18/2014 Patient Education: Patient Medication Summary Completed 04/18/2014 Patient Education: Hypertension Completed 04/18/2014 Appointment: Quyen Long WPtel: [address] [place], [place] [phone] Follow up 02/27/2014 Visit Plan: Insomnia - Pt has been advised to increase the light in the house during the day, and start dimming the lights during the evening hours. Pt has been advised to cut out caffeine after 5pm. Daytime napping worsens night time insomnia. START TRAZODONE AND MONITOR SYMPTOMS. Vitamin D hcdovcqyys-kmkpxboj-lokddead vitamin D 50,000 units weekly for 12 additional weeks. Hypoxemia-continue night time oxygen 02/21/2014 Appointment: Glory Dalton WPtel: [address] [place], [place] [id number] Follow up 02/21/2014 Patient Education: Patient Medication [...] on mobic. 11/28/2013 Appointment: Quyen Long WPtel: [address] [place] [id number] Follow up 11/28/2013 Patient Education: Patient Medication [...] [phone] [place] New Patient 11/14/2013 Patient Education: Patient Medication Summary Completed 11/14/2013 Referral: Dr Mccauley Referral Appointment Requested Instructions Comment . Rash-left ihyw-nhrjwnrs-mxczypivtk patient to continue using ketoconazole plus betamethasone [...] up in 10 days . Cellulitis-left foot-MSSA xlrupsjp-jukwdbjqj-wutkv air in the evening-continue bactroban ointment twice daily-stop using alcohol on foot-no papertowels or abrasives to foot Tkfh-hnuc-zi for betamethasone provided and instructed on use [...] START TRAZODONE AND MONITOR SYMPTOMS. Vitamin D dwusbcqxda-cacaeisy-mefnihfk vitamin D 50,000 units weekly for 12 [...] deficiency - recommended repeat of vitamin d [id number] weekly x 12 weeks and increase vitamin [...] Wilson this afternoon for suture removal-pain improved Oizh-cdux-qnjdqsu fungal infection-will treat with ketoconazole -follow up [...] to participate in activities outside of the long-term. He has a family that would like [...] him to ambulate -will send rx to [facility]
--- OUTSIDE RECORDS SUMMARY | 2018-11-10 15:32 | XMS REPORT | CCD ---
Author Author Quyen Long Organization Quyen Long MD, [facility] Address [address] [place] [address] Phone Care Team Providers Care Gi Asst Name Role Phone PP Unavailable CCM Unavailable Summary Purpose Interface Exchange Insurance Providers Payer name Policy type / Coverage type Covered green party ID Effective Begin Date Effective End Date WPS Medicare Part B Medicare Part B [id number] 2017 Unknown [facility] Medicare Part B [id number] 2017 Unknown Family history Grandmother Diagnosis Age [...] Description Effective Dates Tobacco history SNOMED CT: 2691788 Former smoker 1.5 pack daily x 45 years 12/27/2017 Marital status Unknown 10/19/2016 Living arrangements Unknown Assisted Living [facility] 04/19/2016 Number of children Unknown 1 son - lives in [place] 11/14/2013 Employment 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 11/14/[address]: 836241479 Never drinks alcohol 11/14/2013 Has the patient [...] Kenalog 40 mg/mL suspension for injection RxNorm: 0380374 Milliliter(s) Inj 08/28/2018 08/28/2018 Inactive ranitidine 150 mg tablet RxNorm: 410617 1 Tablet(s) PO daily 08/21/2018 No Stop Date Active ketoconazole 2 % topical cream RxNorm: 589581 1 Application TOP BID to left ear and left arm, right arm, left - a total of 1 gram bid 08/21/2018 12/18/2018 Active ketoconazole 2 % shampoo RxNorm: 217338 APPLY TO AFFECTED AREA(S) TWICE WEEKLY UNTIL RESOLVED 08/14/2018 09/10/2018 Active cetirizine 10 mg tablet RxNorm: 5494286 TAKE ONE TABLET BY MOUTH EVERY NIGHT AT BEDTIME 08/07/2018 03/04/2019 Active trazodone 50 mg tablet RxNorm: 083120 TAKE ONE TABLET BY MOUTH AT BEDTIME 07/18/2018 11/14/2018 Active ketoconazole 2 % shampoo RxNorm: 324175 1 TOP BIW 06/27/2018 08/13/2018 Inactive Vitamin B-12 1,000 mcg/mL injection solution RxNorm: 398173 INJECT 1ML MONTHLY 06/19/2018 11/15/2018 Active Request already responded to by other means (e.g. phone or fax) Vitamin B-12 1,000 mcg/mL injection solution RxNorm: 307918 Milliliter(s) INJECT 1ML MONTHLY 06/15/2018 06/18/2018 Inactive Zithromax Z-Brian 250 mg tablet RxNorm: 702967 1 Tablet(s) PO UD 06/14/2018 08/20/2018 Inactive zpack as directed x1 tamsulosin 0.4 mg capsule RxNorm: 673856 TAKE ONE CAPSULE BY MOUTH EVERY EVENING 06/12/2018 01/07/2019 Active gabapentin 300 mg capsule RxNorm: 692454 TAKE ONE CAPSULE BY MOUTH TWICE A DAY 05/31/2018 09/27/2018 Active losartan 50 mg tablet RxNorm: 263203 TAKE ONE TABLET BY MOUTH DAILY 05/01/2018 09/27/2018 Active Toprol XL 50 mg tablet,extended release RxNorm: 946386 1 Tablet(s) PO daily 04/20/2018 No Stop Date Active Vitamin D3 5,000 unit tablet RxNorm: 290709 TAKE ONE TABLET BY MOUTH DAILY 04/05/2018 02/28/2019 Active trazodone 50 mg tablet RxNorm: 414624 TAKE ONE TABLET BY MOUTH AT BEDTIME 02/27/2018 07/17/2018 Inactive hydrochlorothiazide 25 mg tablet RxNorm: 602320 TAKE ONE TABLET BY MOUTH DAILY 02/13/2018 11/09/2018 Active ranitidine 150 mg tablet RxNorm: 791888 1 Tablet(s) PO BID 02/13/2018 08/20/2018 Inactive albuterol sulfate 2.5 mg/3 mL (0.083 %) solution for nebulization RxNorm: 226794 3 Milliliter(s) INH UD 02/08/2018 No Stop Date Active please deliver all of his prescriptions thank you cefdinir 300 mg capsule RxNorm: 607586 1 Capsule(s) PO BID 02/08/2018 02/17/2018 Inactive prednisone 20 mg tablet RxNorm: 767222 2 Tablet(s) PO daily 02/08/2018 02/12/2018 Inactive fluticasone 50 mcg/actuation nasal spray,suspension RxNorm: 4367807 1 [place] NASAL BID 02/07/2018 06/06/2018 Inactive fluticasone 50 mcg/actuation nasal spray,suspension RxNorm: 3569995 1 [place] NASAL BID 02/07/2018 02/06/2018 Inactive Zithromax Z-Brian 250 mg tablet RxNorm: 152221 1 Tablet(s) PO UD 02/07/2018 03/14/2018 Inactive zdavinck as directed tamsulosin 0.4 mg capsule RxNorm: 442311 TAKE ONE CAPSULE BY MOUTH EVERY EVENING 01/13/2018 06/11/2018 Inactive Vitamin D3 5,000 unit tablet RxNorm: 584823 TAKE ONE TABLET BY MOUTH DAILY 01/02/2018 04/04/2018 Inactive cetirizine 10 mg tablet RxNorm: 7330211 TAKE ONE TABLET BY MOUTH EVERY NIGHT AT BEDTIME 01/02/2018 04/01/2018 Inactive cetirizine 10 mg tablet RxNorm: 1236504 1 Tablet(s) PO QHS 12/26/2017 01/01/2018 Inactive cetirizine 10 mg tablet RxNorm: 6832285 1 Tablet(s) PO QHS 12/26/2017 12/25/2017 Inactive losartan 50 mg tablet RxNorm: 026158 TAKE ONE TABLET BY MOUTH DAILY (STARTING 09-09-2017) 09/29/2017 03/27/2018 Inactive Request already responded to by other means (e.g. phone or fax) losartan 50 mg tablet RxNorm: 532526 1 Tablet(s) PO daily 09/27/2017 09/26/2017 Inactive losartan 50 mg tablet RxNorm: 356998 1 Tablet(s) PO daily 09/27/2017 09/28/2017 Inactive Bactrim DS 800 mg-160 mg tablet RxNorm: 210142 1 Tablet(s) PO BID 09/13/2017 09/19/2017 Inactive Kenalog 40 mg/mL suspension for injection RxNorm: 8930441 1 Milliliter(s) Inj 09/07/2017 09/07/2017 Inactive trazodone 50 mg tablet RxNorm: 823057 TAKE ONE TABLET BY MOUTH AT BEDTIME 08/16/2017 02/11/2018 Inactive gabapentin 300 mg capsule RxNorm: 301286 1 Capsule(s) PO BID 08/03/2017 01/29/2018 Inactive Vitamin D3 5,000 unit tablet RxNorm: 625433 TAKE ONE TABLET BY MOUTH DAILY 08/01/2017 12/28/2017 Inactive ketoconazole 2 % topical cream RxNorm: 688793 APPLY TO AFFECTED AREA(S) TWO TIMES A DAY 05/31/2017 06/29/2017 Inactive hydrochlorothiazide 25 mg tablet RxNorm: 297058 TAKE ONE TABLET BY MOUTH DAILY 05/16/2017 02/09/2018 Inactive lisinopril 20 mg tablet RxNorm: 292733 TAKE ONE TABLET BY MOUTH DAILY 05/16/2017 09/06/2017 Inactive ketoconazole 2 % topical cream RxNorm: 898550 1 Application TOP BID 03/29/2017 04/11/2017 Inactive apply to [facility]-deliver to [facility] please betamethasone dipropionate 0.05 % topical ointment RxNorm: 450354 1 Application TOP BID 03/29/2017 04/11/2017 Inactive apply to arm/chests for itching gabapentin 300 mg capsule RxNorm: 528647 1 Capsule(s) PO BID 03/29/2017 08/02/2017 Inactive trazodone 50 mg tablet RxNorm: 093135 TAKE ONE TABLET BY MOUTH AT BEDTIME 03/28/2017 08/15/2017 Inactive Vesicare 10 mg tablet RxNorm: 207406 TAKE ONE TABLET BY MOUTH EVERY NIGHT AT BEDTIME 03/21/2017 12/26/2017 Inactive Vesicare 10 mg tablet RxNorm: 941353 TAKE ONE TABLET BY MOUTH EVERY NIGHT AT BEDTIME 03/21/2017 06/06/2017 Inactive doxycycline hyclate 100 mg capsule RxNorm: 2722667 1 Capsule(s) PO BID 03/18/2017 03/27/2017 Inactive mupirocin 2 % topical ointment RxNorm: 352779 1 Application TOP BID 03/17/2017 08/27/2018 Inactive doxycycline hyclate 100 mg tablet RxNorm: 479677 1 Tablet(s) PO BID 03/09/2017 03/15/2017 Inactive Take probiotic BID while on ABT doxycycline hyclate 100 mg tablet RxNorm: 870205 1 Tablet(s) PO BID 03/09/2017 03/08/2017 Inactive Take probiotic BID while on ABT meloxicam 15 mg tablet RxNorm: 987470 TAKE ONE TABLET BY MOUTH DAILY 02/10/2017 12/06/2017 Inactive Vitamin D3 5,000 unit tablet RxNorm: 997594 TAKE ONE TABLET BY MOUTH DAILY 02/08/2017 07/31/2017 Inactive Vitamin B-12 1,000 mcg/mL injection solution RxNorm: 287333 INJECT 1ML MONTHLY 01/24/2017 07/22/2017 Inactive lisinopril 20 mg tablet RxNorm: 859812 TAKE ONE TABLET BY MOUTH DAILY 12/13/2016 04/11/2017 Inactive trazodone 50 mg tablet RxNorm: 005774 TAKE ONE TABLET BY MOUTH AT BEDTIME 09/24/2016 03/22/2017 Inactive Vitamin D3 5,000 unit tablet RxNorm: 617174 TAKE ONE TABLET BY MOUTH DAILY 09/20/2016 02/07/2017 Inactive lisinopril 20 mg tablet RxNorm: 622648 TAKE ONE TABLET BY MOUTH DAILY 09/13/2016 12/12/2016 Inactive ketoconazole 2 % topical cream RxNorm: 035052 1 Application TOP BID 08/17/2016 08/30/2016 Inactive deliver to [facility] please Pepcid 20 mg tablet RxNorm: 606010 TAKE ONE TABLET BY MOUTH TWICE A DAY 07/12/2016 12/26/2017 Inactive omega-3 acid ethyl esters 1 gram capsule RxNorm: 625351 3 Capsule(s) PO daily 06/18/2016 12/14/2016 Inactive omega-3 acid ethyl esters 1 gram capsule RxNorm: 972716 3 Capsule(s) PO daily 06/18/2016 06/17/2016 Inactive trazodone 50 mg tablet RxNorm: 167799 TAKE ONE TABLET BY MOUTH AT BEDTIME 06/08/2016 08/06/2016 Inactive tamsulosin 0.4 mg capsule RxNorm: 969758 Capsule(s) TAKE ONE CAPSULE BY MOUTH EVERY EVENING 06/04/2016 12/30/2016 Inactive hydrochlorothiazide 25 mg tablet RxNorm: 962847 TAKE ONE TABLET BY MOUTH DAILY 05/10/2016 05/09/2016 Inactive hydrochlorothiazide 25 mg tablet RxNorm: 850376 TAKE ONE TABLET BY MOUTH DAILY 05/10/2016 02/12/2018 Inactive Pepcid 20 mg tablet RxNorm: 747474 1 Tablet(s) PO BID 03/18/2016 03/17/2016 Inactive Pepcid 20 mg tablet RxNorm: 320993 1 Tablet(s) PO BID 03/18/2016 07/11/2016 Inactive lisinopril 20 mg tablet RxNorm: 341267 TAKE ONE TABLET BY MOUTH DAILY 03/18/2016 08/14/2016 Inactive Vitamin D3 5,000 unit tablet RxNorm: 049096 Tablet(s) TAKE ONE TABLET BY MOUTH DAILY 03/18/2016 09/13/2016 Inactive trazodone 50 mg tablet RxNorm: 557619 TAKE ONE TABLET BY MOUTH AT BEDTIME 03/15/2016 06/07/2016 Inactive Vesicare 10 mg tablet RxNorm: 614238 1 Tablet(s) PO QHS 03/15/2016 02/07/2017 Inactive meloxicam 15 mg tablet RxNorm: 407127 TAKE ONE TABLET BY MOUTH DAILY 03/01/2016 01/24/2017 Inactive Bactrim DS 800 mg-160 mg tablet RxNorm: 731394 1 Tablet(s) PO BID 02/10/2016 02/09/2016 Inactive Bactrim DS 800 mg-160 mg tablet RxNorm: 912434 1 Tablet(s) PO BID 02/10/2016 02/16/2016 Inactive Cipro 500 mg tablet RxNorm: 053255 1 Tablet(s) PO BID 02/06/2016 02/09/2016 Inactive Cipro 500 mg tablet RxNorm: 005380 1 Tablet(s) PO BID 02/06/2016 02/05/2016 Inactive Pennsaid 20 mg/gram/actuation (2 %) topical soln in metered- dose pump RxNorm: 7827576 2 pumps TOP BID 01/19/2016 04/19/2016 Inactive tamsulosin 0.4 mg capsule RxNorm: 417545 TAKE ONE CAPSULE BY MOUTH EVERY EVENING 01/12/2016 06/03/2016 Inactive cyanocobalamin (vit B-12) 1,000 mcg/mL injection solution RxNorm: 938006 INJECT 1 ML INTRAMUSCULARLY MONTHLY 01/01/2016 10/26/2016 Inactive Request already responded to by other means (e.g. phone or fax) Vitamin B-12 1,000 mcg/mL injection solution RxNorm: 959699 1 Milliliter(s) Inj monthly 12/24/2015 04/19/2016 Inactive please give syringes for injections Vitamin D3 5,000 unit tablet RxNorm: 437989 TAKE ONE TABLET BY MOUTH DAILY 12/08/2015 03/06/2016 Inactive pantoprazole 40 mg tablet,delayed release RxNorm: 288293 TAKE ONE TABLET BY MOUTH DAILY 12/08/2015 03/17/2016 Inactive trazodone 50 mg tablet RxNorm: 075710 TAKE ONE TABLET BY MOUTH AT BEDTIME 11/10/2015 03/08/2016 Inactive lisinopril 20 mg tablet RxNorm: 121463 TAKE ONE TABLET BY MOUTH DAILY 09/08/2015 03/05/2016 Inactive Vitamin D3 5,000 unit tablet RxNorm: 334510 1 Tablet(s) PO daily 08/12/2015 12/07/2015 Inactive pantoprazole 40 mg tablet,delayed release RxNorm: 322644 1 Tablet(s) PO daily 08/12/2015 12/07/2015 Inactive tamsulosin 0.4 mg capsule RxNorm: 171288 TAKE ONE CAPSULE BY MOUTH EVERY EVENING 07/21/2015 12/17/2015 Inactive trazodone 50 mg tablet RxNorm: 021304 TAKE ONE TABLET BY MOUTH AT BEDTIME 05/09/2015 10/05/2015 Inactive hydrochlorothiazide 25 mg tablet RxNorm: 530576 1 Tablet(s) PO QAM 04/30/2015 04/29/2015 Inactive hydrochlorothiazide 25 mg tablet RxNorm: 100218 TAKE ONE TABLET BY MOUTH DAILY 04/30/2015 02/12/2018 Inactive pantoprazole 40 mg tablet,delayed release RxNorm: 295047 1 Tablet(s) PO daily 04/16/2015 08/11/2015 Inactive meloxicam 15 mg tablet RxNorm: 901130 TAKE ONE TABLET BY MOUTH DAILY 03/03/2015 02/25/2016 Inactive lisinopril 20 mg tablet RxNorm: 059253 1 Tablet(s) PO daily 02/19/2015 09/07/2015 Inactive tamsulosin 0.4 mg capsule RxNorm: 680592 TAKE ONE CAPSULE BY MOUTH EVERY EVENING 01/20/2015 07/18/2015 Inactive cyanocobalamin (vit B-12) 1,000 mcg/mL injection solution RxNorm: 999682 Milliliter(s) INJECT 1ML INTRAMUSCULARLY MONTHLY 12/12/2014 12/22/2014 Inactive trazodone 50 mg tablet RxNorm: 284955 TAKE ONE TABLET BY MOUTH AT BEDTIME 11/14/2014 05/08/2015 Inactive erythromycin 5 mg/gram (0.5 %) eye ointment RxNorm: 282763 1/2 inch OPH QID 11/05/2014 11/14/2014 Inactive acyclovir 800 mg tablet RxNorm: 223538 1 Tablet(s) PO TID 11/05/2014 11/18/2014 Inactive Zofran 4 mg tablet RxNorm: 359912 1 Tablet(s) PO Q4H as needed nausea 11/05/2014 01/03/2015 Inactive Duragesic 12 mcg/hr transdermal patch RxNorm: 135263 1 Patch TD Q72H 11/05/2014 02/04/2015 Inactive Imitrex 100 mg tablet RxNorm: 592709 1 Tablet(s) PO q 12 hours 11/04/2014 04/15/2015 Inactive naproxen 500 mg tablet RxNorm: 952660 1 Tablet(s) PO BID 10/30/2014 11/01/2014 Inactive meloxicam 15 mg tablet RxNorm: 692100 TAKE ONE TABLET BY MOUTH DAILY 10/04/2014 03/02/2015 Inactive Vesicare 5 mg tablet RxNorm: 214548 TAKE ONE TABLET BY MOUTH AT BEDTIME 09/16/2014 07/16/2015 Inactive Vitamin D2 50,000 unit capsule RxNorm: 403290 1 Capsule(s) PO QW 09/06/2014 07/16/2015 Inactive once weekly x 12 weeks tamsulosin ER 0.4 mg capsule,extended release 24 hr RxNorm: 271323 TAKE ONE CAPSULE BY MOUTH EVERY EVENING 06/24/2014 12/20/2014 Inactive tamsulosin ER 0.4 mg capsule,extended release 24 hr RxNorm: 743397 1 Capsule(s) PO QPM 06/24/2014 01/19/2015 Inactive Vitamin D2 50,000 unit capsule RxNorm: 385863 1 Capsule(s) PO QW 05/27/2014 09/05/2014 Inactive once weekly x 12 weeks Vesicare 5 mg tablet RxNorm: 294875 1 Tablet(s) PO QHS 05/23/2014 05/22/2014 Inactive Vesicare 5 mg tablet RxNorm: 171245 1 Tablet(s) PO QHS 05/23/2014 09/15/2014 Inactive trazodone 50 mg tablet RxNorm: 249003 TAKE ONE TABLET BY MOUTH AT BEDTIME 05/13/2014 11/08/2014 Inactive trazodone 50 mg tablet RxNorm: 168720 TAKE ONE TABLET BY MOUTH AT BEDTIME 05/13/2014 11/08/2014 Inactive hydrochlorothiazide 25 mg tablet RxNorm: 497348 1 Tablet(s) PO [facility] 04/18/2014 01/12/2015 Inactive Vitamin D2 50,000 unit capsule RxNorm: 827265 TAKE ONE CAPSULE BY MOUTH ONCE WEEKLY FOR 12 WEEKS 04/09/2014 05/14/2014 Inactive trazodone 50 mg tablet RxNorm: 243837 1 Tablet(s) PO QHS 02/22/2014 05/12/2014 Inactive trazodone 50 mg tablet RxNorm: 064158 1 Tablet(s) PO QHS 02/22/2014 02/21/2014 Inactive Vitamin D2 50,000 unit capsule RxNorm: 152696 TAKE ONE CAPSULE BY MOUTH ONCE WEEKLY FOR 12 WEEKS 02/07/2014 03/06/2014 Inactive meloxicam 15 mg tablet RxNorm: 643706 TAKE ONE TABLET BY MOUTH ONCE A DAY 02/07/2014 08/05/2014 Inactive meloxicam 15 mg tablet RxNorm: 485062 TAKE ONE TABLET BY MOUTH ONCE A DAY 02/07/2014 2014 Inactive clotrimazole 1 % topical cream RxNorm: 154634 1 Application TOP BID 12/25/2013 07/16/2015 Inactive Diflucan 150 mg tablet RxNorm: 445300 1 Tablet(s) PO daily 12/25/2013 12/31/2013 Inactive tamsulosin ER 0.4 mg capsule,extended release 24 hr RxNorm: 909694 1 Capsule(s) PO QPM 11/28/2013 06/23/2014 Inactive cyanocobalamin (vit B-12) 1,000 mcg/mL injection solution RxNorm: 952832 1 Milliliter(s) Inj 11/28/2013 12/12/2014 Inactive Vitamin B-12 1,000 mcg/mL injection solution RxNorm: 719255 1 Milliliter(s) Inj monthly 11/21/2013 02/13/2015 Inactive please give syringes for injections Vitamin D2 50,000 unit capsule RxNorm: 436630 1 Capsule(s) PO QW x 12 weeks 11/21/2013 02/06/2014 Inactive [SAVINGS FOR UNINSURED PATIENTS -- to take addtional 2000 units daily Vitamin B-12 1,000 mcg/mL injection solution RxNorm: 174849 1 Milliliter(s) Inj monthly 11/21/2013 11/20/2013 Inactive meloxicam 15 mg tablet RxNorm: 689249 1 Tablet(s) PO daily 11/20/2013 11/19/2013 Inactive [SAVINGS FOR UNINSURED PATIENTS -- BIN:790395, PCN: [id number], Group: [id number], ID# [id number], Process claim through [employer] for questions: . THIS IS NOT INSURANCE.] meloxicam 15 mg tablet RxNorm: 091830 1 Tablet(s) PO daily 11/20/2013 02/06/2014 Inactive [SAVINGS FOR UNINSURED PATIENTS -- BIN:652777, PCN: [id number], Group: [id number], ID# [id number], Process claim through [employer] for questions: . THIS IS NOT INSURANCE.] meloxicam 15 mg tablet RxNorm: 209806 1 Tablet(s) PO daily 11/20/2013 11/19/2013 Inactive Voltaren 1 % topical gel RxNorm: 734490 4 Application TOP QID apply to back, affected joints four times daily 11/14/2013 11/20/2013 Inactive Iron (ferrous sulfate) 325 mg (65 mg iron) tablet RxNorm: 077457 1 Tablet(s) PO daily No Start Date Active trazodone 50 mg tablet RxNorm: 258482 1 Tablet(s) PO QHS No Start Date Active Vitamin D2 50,000 unit capsule RxNorm: 368375 1 Capsule(s) PO QW No Start Date 05/26/2014 Inactive once weekly x 12 weeks Zithromax Z-Brian 250 mg tablet RxNorm: 190528 1 Tablet(s) PO UD No Start Date 02/06/2018 Inactive Vitamin D2 50,000 unit capsule RxNorm: 566203 1 Capsule(s) PO QW No Start Date 11/20/2013 Inactive gabapentin 300 mg capsule RxNorm: 926201 1 Capsule(s) PO TID No Start Date 03/28/2017 Inactive Vesicare 10 mg tablet RxNorm: 927510 1 Tablet(s) PO QHS No Start Date 03/14/2016 Inactive Toprol XL 25 mg tablet,extended release RxNorm: 762222 1 Tablet(s) PO daily No Start Date 04/19/2018 Inactive Vitamin D3 5,000 unit tablet RxNorm: 837558 1 Tablet(s) PO daily No Start Date 08/11/2015 Inactive Celebrex 200 mg capsule RxNorm: 386268 1 Capsule(s) PO BID No Start Date 07/19/2016 Inactive Imitrex 50 mg tablet RxNorm: 071650 1 Tablet(s) PO now and may repeat up to four times in 24 hours No Start Date 11/03/2014 Inactive Zofran 4 mg tablet RxNorm: 912901 1 Tablet(s) PO Q8 as needed nausea and vomitting No Start Date 10/15/2015 Inactive ranitidine 150 mg tablet RxNorm: 764048 1 Tablet(s) PO BID No Start Date 02/12/2018 Inactive Phenergan 25 mg tablet RxNorm: 503055 1 Tablet(s) PO now No Start Date 04/15/2015 Inactive Tums oral RxNorm: 127573 oral No Start Date 10/15/2015 Inactive Medication Administered Medication Codes Instructions Start Date Status Kenalog 40 mg/mL suspension for injection RxNorm: 4659741 Milliliter 08/28/2018 No longer Active Kenalog 40 mg/mL suspension for injection RxNorm: 3629709 1Milliliter 09/07/2017 No longer Active cyanocobalamin (vit B-12) 1,000 mcg/mL injection solution RxNorm: 421745 1Milliliter 11/28/2013 No longer Active Immunizations Vaccine [...] recently went to an eye doctor in [place]. Reports that he did have hemorrhaging in his right eye which is getting better. headache 04/18/2014 Pt states he recently went to an eye doctor in [place] shortness of breath 02/21/2014 blisters 12/25/2013 insomnia 11/28/2013 back pain 11/14/2013 Results Observation Observation Code Item Item Code Result Date Vitamin D 25 Oh [id number] VITAMIN D, 25 HYDROXY 66.80 ng/mL 03/14/2018 [...] 28.5 pg 03/14/2018 Cbc With Differential Ord2 Lamar% 7.6 % 03/14/2018 Cbc With Differential Ord2 [...] 1.28 K/ul 03/14/2018 Cbc With Differential Ord2 Lamar ABS# 0.4 K/ul 03/14/2018 Cbc With Differential [...] Lipid Ord30 C/HDL 5.0 Ratio 06/27/2017 %Hba1C Lrn768 % HbA1c 51609- 6 6.2 % 06/27/2017 %Hba1C Mei418 Gluc Ave 131 mg/dL 06/27/2017 Comp Metabolic Psm692 NA 140 mEq/L 06/27/2017 Comp Metabolic Lao215 K 4.2 mEq/L 06/27/2017 Comp Metabolic Fcv454 CL 100 mEq/L 06/27/2017 Comp Metabolic Nhg672 CO2 32.0 mEq/L 06/27/2017 Comp Metabolic Wan438 ANION GAP 12 06/27/2017 Comp Metabolic Apj045 GLUCOSE 118 mg/dL 06/27/2017 Comp Metabolic Srx530 Creat 1.0 mg/dL 06/27/2017 Comp Metabolic Zwx551 eGFR 82 ml/min/1.73m2 06/27/2017 Comp Metabolic Kow452 BUN 26 mg/dL 06/27/2017 Comp Metabolic Uqs198 B/C Ratio 27.1 Ratio 06/27/2017 Comp Metabolic Aqy849 CALCIUM 9.6 mg/dL 06/27/2017 Comp Metabolic Lkw797 ALK PHOS 46 U/L 06/27/2017 Comp Metabolic Gmd753 AST(SGOT) 23 U/L 06/27/2017 Comp Metabolic Rlx005 ALT(SGPT) 31 U/L 06/27/2017 Comp Metabolic Llp294 BILI T 0.5 mg/dL 06/27/2017 Comp Metabolic Jrx349 ALBUMIN 4.2 g/dL 06/27/2017 Comp Metabolic Iht009 TPRO 6.6 g/dL 06/27/2017 Comp Metabolic Bmx943 GLOB 2.4 g/dL 06/27/2017 Comp Metabolic Byg574 A/G Ratio 1.7 Ratio 06/27/2017 Comp Metabolic Uyj348 Osmo 285 mOsmo 06/27/2017 Cbc With Differential [...] 29.0 pg 10/20/2016 Cbc With Differential Ord2 Lamar% 9.0 % 10/20/2016 Cbc With Differential Ord2 [...] 1.33 K/ul 10/20/2016 Cbc With Differential Ord2 [place] ABS# 0.4 K/ul 10/20/2016 Cbc With Differential Ord2 Eos ABS# 0.2 K/ul 10/20/2016 Cbc With Differential Ord2 Baso ABS# 0.0 K/ul 10/20/2016 Comp Metabolic Xoo276 NA 143 mEq/L 10/20/2016 Comp Metabolic Asj424 K 4.6 mEq/L 10/20/2016 Comp Metabolic Pno967 CL 104 mEq/L 10/20/2016 Comp Metabolic Iyf406 CO2 31.0 mEq/L 10/20/2016 Comp Metabolic You692 ANION GAP 13 10/20/2016 Comp Metabolic Tiy546 GLUCOSE 117 mg/dL 10/20/2016 Comp Metabolic Fju236 Creat 1.1 mg/dL 10/20/2016 Comp Metabolic Jpu046 eGFR 74 ml/min/1.73m2 10/20/2016 Comp Metabolic Buc769 BUN 27 mg/dL 10/20/2016 Comp Metabolic Hii347 B/C Ratio 25.7 Ratio 10/20/2016 Comp Metabolic Gkf064 CALCIUM 9.3 mg/dL 10/20/2016 Comp Metabolic Zal541 ALK PHOS 47 U/L 10/20/2016 Comp Metabolic Tyi288 AST(SGOT) 18 U/L 10/20/2016 Comp Metabolic Mlk343 ALT(SGPT) 22 U/L 10/20/2016 Comp Metabolic Cai970 BILI T 0.5 mg/dL 10/20/2016 Comp Metabolic Wur115 ALBUMIN 3.9 g/dL 10/20/2016 Comp Metabolic Xma053 TPRO 6.5 g/dL 10/20/2016 Comp Metabolic Cfa076 GLOB 2.6 g/dL 10/20/2016 Comp Metabolic Smh302 A/G Ratio 1.5 Ratio 10/20/2016 Comp Metabolic Wec758 Osmo 291 mOsmo 10/20/2016 Tsh Ord6 hTSH II 1.56 uIU/mL 10/20/2016 Lipid Ord30 CHOL 153 mg/dL 10/20/2016 Lipid Ord30 HDL 34.0 mg/dl 10/20/2016 Lipid Ord30 TRIG 123 mg/dL 10/20/2016 Lipid Ord30 LDL 94 mg/dL 10/20/2016 Lipid Ord30 C/HDL 4.5 Ratio 10/20/2016 B12 Xhw396 B12 544.00 pg/ml 10/20/2016 Comp Metabolic Fnx142 NA 138 mEq/L 05/13/2016 Comp Metabolic Wta084 K 4.2 mEq/L 05/13/2016 Comp Metabolic Zwn335 CL 102 mEq/L 05/13/2016 Comp Metabolic Tsm806 CO2 30.0 mEq/L 05/13/2016 Comp Metabolic Cjc304 ANION GAP 10 05/13/2016 Comp Metabolic Khj325 GLUCOSE 113 mg/dL 05/13/2016 Comp Metabolic Kse833 Creat 1.0 mg/dL 05/13/2016 Comp Metabolic Zxv500 eGFR 77 ml/min/1.73m2 05/13/2016 Comp Metabolic Ipp214 BUN 26 mg/dL 05/13/2016 Comp Metabolic Ftf127 B/C Ratio 25.5 Ratio 05/13/2016 Comp Metabolic Bfl183 CALCIUM 9.7 mg/dL 05/13/2016 Comp Metabolic Lyi589 ALK PHOS 51 U/L 05/13/2016 Comp Metabolic Fhj991 AST(SGOT) 17 U/L 05/13/2016 Comp Metabolic Ymv821 ALT(SGPT) 20 U/L 05/13/2016 Comp Metabolic Jjr999 BILI T 0.6 mg/dL 05/13/2016 Comp Metabolic Yby027 ALBUMIN 4.0 g/dL 05/13/2016 Comp Metabolic Kxc426 TPRO 6.6 g/dL 05/13/2016 Comp Metabolic Nyd060 GLOB 2.6 g/dL 05/13/2016 Comp Metabolic Lvw016 A/G Ratio 1.6 Ratio 05/13/2016 Comp Metabolic Xev116 Osmo 281 mOsmo 05/13/2016 Lipid Ord30 CHOL [...] 29.3 pg 02/11/2016 Cbc With Differential Ord2 Lamar% 7.7 % 02/11/2016 Cbc With Differential Ord2 [...] 1.18 K/ul 02/11/2016 Cbc With Differential Ord2 Lamar ABS# 0.4 K/ul 02/11/2016 Cbc With Differential Ord2 Eos ABS# 0.1 K/ul 02/11/2016 Cbc With Differential Ord2 Baso ABS# 0.0 K/ul 02/11/2016 Comp Metabolic Vrb364 NA 138 mEq/L 02/11/2016 Comp Metabolic Atf268 K 4.0 mEq/L 02/11/2016 Comp Metabolic Fsr543 CL 97 mEq/L 02/11/2016 Comp Metabolic Lcf242 CO2 32.0 mEq/L 02/11/2016 Comp Metabolic Val440 ANION GAP 13 02/11/2016 Comp Metabolic Qlw894 GLUCOSE 117 mg/dL 02/11/2016 Comp Metabolic Qjy145 Creat 1.0 mg/dL 02/11/2016 Comp Metabolic Ufc328 eGFR 81 ml/min/1.73m2 02/11/2016 Comp Metabolic Zsw691 BUN 21 mg/dL 02/11/2016 Comp Metabolic Udc889 B/C Ratio 21.4 Ratio 02/11/2016 Comp Metabolic Uzv837 CALCIUM 9.2 mg/dL 02/11/2016 Comp Metabolic Ygt394 ALK PHOS 48 U/L 02/11/2016 Comp Metabolic Asl652 AST(SGOT) 18 U/L 02/11/2016 Comp Metabolic Gbq103 ALT(SGPT) 22 U/L 02/11/2016 Comp Metabolic Wbu394 BILI T 0.5 mg/dL 02/11/2016 Comp Metabolic Hmz328 ALBUMIN 3.9 g/dL 02/11/2016 Comp Metabolic Tqh394 TPRO 6.3 g/dL 02/11/2016 Comp Metabolic Sbt856 GLOB 2.5 g/dL 02/11/2016 Comp Metabolic Qxr138 A/G Ratio 1.6 Ratio 02/11/2016 Comp Metabolic Btw564 Osmo 280 mOsmo 02/11/2016 Lipid Ord30 CHOL 163 mg/dL 02/11/2016 Lipid Ord30 HDL 35.0 mg/dl 02/11/2016 Lipid Ord30 TRIG 200 mg/dL 02/11/2016 Lipid Ord30 LDL 88 mg/dL 02/11/2016 Lipid Ord30 C/HDL 4.7 Ratio 02/11/2016 %Hba1C Hfa534 % HbA1c 39016- 6 6.5 % 02/11/2016 %Hba1C Zpj207 Gluc Ave 140 mg/dL 02/11/2016 Tsh Ord6 hTSH II 2.07 uIU/mL 02/11/2016 B12 Lrm312 B12 563.00 pg/ml 02/11/2016 Culture Urine [id number] URINE CULTURE SEE NOTES 02/10/2016 Culture Urine [id number] Continued Results 02/10/2016 Urine Culture Ucult Complete [...] hours from collection if refrigerated) 11/04/2015 %Hba1C Xzy091 % HbA1c 89651- 6 6.4 % 04/16/2015 %Hba1C Ltl990 Gluc Ave 137 mg/dL 04/16/2015 Tsh Ord6 hTSH II 3.33 uIU/mL 02/07/2015 Comp Metabolic Cbr556 NA 136 mEq/L 02/07/2015 Comp Metabolic Hug109 K 3.9 mEq/L 02/07/2015 Comp Metabolic Kow874 CL 98 mEq/L 02/07/2015 Comp Metabolic Ksy016 CO2 31.0 mEq/L 02/07/2015 Comp Metabolic Yby262 ANION GAP 11 02/07/2015 Comp Metabolic Pjd326 GLUCOSE 139 mg/dL 02/07/2015 Comp Metabolic Kzi543 Creat 0.9 mg/dL 02/07/2015 Comp Metabolic Mvj904 eGFR 87 ml/min/1.73m2 02/07/2015 Comp Metabolic Uwt678 BUN 20 mg/dL 02/07/2015 Comp Metabolic Bwh190 B/C Ratio 21.7 Ratio 02/07/2015 Comp Metabolic Pwo732 CALCIUM 9.7 mg/dL 02/07/2015 Comp Metabolic Yzr694 ALK PHOS 55 U/L 02/07/2015 Comp Metabolic Edo562 AST(SGOT) 20 U/L 02/07/2015 Comp Metabolic Kme051 ALT(SGPT) 27 U/L 02/07/2015 Comp Metabolic Eph247 BILI T 0.5 mg/dL 02/07/2015 Comp Metabolic Hoa087 ALBUMIN 4.3 g/dL 02/07/2015 Comp Metabolic Bor097 TPRO 6.9 g/dL 02/07/2015 Comp Metabolic Tux203 GLOB 2.6 g/dL 02/07/2015 Comp Metabolic Ukq790 A/G Ratio 1.7 Ratio 02/07/2015 Comp Metabolic Hjd700 Osmo 277 mOsmo 02/07/2015 Cbc With Differential [...] Ord2 RDW 14.8 % 02/07/2015 A1C HPLC 3413314 A1C HPLC 74247-9 6.0 % 05/23/2014 VIT B 12 2016138 VIT B 12 479 PG/ML 05/23/2014 VIT D TOTL 8820829 VIT D TOTL 29 NG/ML 05/23/2014 Review [...] 4: G0439 12/27/2017 THER/PROPH/DIAG INJ SC/IM CPT-4: 89446 09/07/2017 TRIAMCINOLONE ACET INJ NOS CPT-4: J3301 09/07/2017 ROUTINE VENIPUNCTURE CPT- 4: 21472 05/23/2014 THER/PROPH/DIAG INJ SC/IM CPT-4: 24230 11/28/2013 VITAMIN B12 INJECTION CPT- 4: J3420 11/28/2013 Vital Signs Date Vital 09/04/2018 Blood Pressure 1: 143/80 Code: 8480-6 BMI: 36.8 Code: 04133-0 Heart Rate 1: 88 bpm Height: 6' SpO2: 93% Weight: 271 lbs 08/28/2018 Blood Pressure 1: 144/72 Code: 8480-6 BMI: 36.8 Code: 31519-7 Heart Rate 1: 65 bpm Height: 6' SpO2: 97% Weight: 271 lbs 08/21/2018 Blood Pressure 1: 110/66 Code: 8480-6 BMI: 36.6 Code: 77172-3 Heart Rate 1: 70 bpm Height: 6' SpO2: 93% Weight: 270 lbs 06/27/2018 Blood Pressure 1: 124/70 Code: 8480-6 BMI: 36.6 Code: 69077-4 Heart Rate 1: 64 bpm Height: 6' SpO2: 96% Weight: 270 lbs 04/20/2018 Blood Pressure 1: 126/74 Code: 8480-6 BMI: 36.6 Code: 92283-9 Heart Rate 1: 60 bpm Height: 6' SpO2: 94% Weight: 270 lbs 03/21/2018 Blood Pressure 1: 138/74 Code: 8480-6 BMI: 36.8 Code: 83841-0 Heart Rate 1: 81 bpm Height: 6' SpO2: 98% Weight: 271 lbs 02/08/2018 Blood Pressure 1: 132/74 Code: 8480-6 BMI: 37.0 Code: 17407-6 Heart Rate 1: 82 bpm Height: 6' SpO2: 97% Weight: 273 lbs 12/27/2017 Blood Pressure 1: 148/78 Code: 8480-6 BMI: 36.3 Code: 67479-9 Heart Rate 1: 78 bpm Height: 6' SpO2: 93% Waist Measure (cm): 117 cm Weight: 268 lbs 12/06/2017 Blood Pressure 1: 122/70 Code: 8480-6 BMI: 36.6 Code: 26883-1 Heart Rate 1: 76 bpm Height: 6' SpO2: 93% Weight: 270 lbs 11/01/2017 BMI: 36.9 Code: 95263-4 Height: 6' Weight: 272 lbs 09/07/2017 Blood Pressure 1: 140/78 Code: 8480-6 BMI: 35.8 Code: 38508-9 Heart Rate 1: 76 bpm Height: 6' SpO2: 98% Weight: 264 lbs 06/07/2017 Blood Pressure 1: 138/86 Code: 8480-6 BMI: 36.3 Code: 71828-0 Heart Rate 1: 66 bpm Height: 6' SpO2: 95% Weight: 268 lbs 05/19/2017 Blood Pressure 1: 152/84 Code: 8480-6 BMI: 36.8 Code: 08575-5 Heart Rate 1: 70 bpm Height: 6' SpO2: 93% Weight: 271 lbs 05/09/2017 Blood Pressure 1: 138/76 Code: 8480-6 BMI: 36.6 Code: 61251-8 Heart Rate 1: 79 bpm Height: 6' SpO2: 93% Weight: 270 lbs 04/25/2017 Blood Pressure 1: 150/80 Code: 8480-6 Heart Rate 1: 58 bpm Height: SpO2: 94% Weight: 2017 Blood Pressure 1: 138/80 Code: 8480-6 BMI: 36.5 Code: 04092-6 Heart Rate 1: 76 bpm Height: 6' SpO2: 96% Weight: 269 lbs 03/29/2017 Blood Pressure 1: 118/68 Code: 8480-6 BMI: 36.9 Code: 58500-2 Heart Rate 1: 61 bpm Height: 6' SpO2: 95% Weight: 272 lbs 03/17/2017 Blood Pressure 1: 140/78 Code: 8480-6 BMI: 36.8 Code: 93461-6 Heart Rate 1: 91 bpm Height: 6' SpO2: 93% Weight: 271 lbs 03/08/2017 Blood Pressure 1: 152/84 Code: 8480-6 BMI: 36.8 Code: 42103-3 Heart Rate 1: 72 bpm Height: 6' SpO2: 92% Temperature: 36.6 (C) / 97.8 (F) Weight: 271 lbs 02/17/2017 Blood Pressure 1: 110/64 Code: 8480-6 BMI: 36.5 Code: 58734-8 Heart Rate 1: 62 bpm Height: 6' SpO2: 96% Weight: 269 lbs 01/18/2017 Blood Pressure 1: 140/80 Code: 8480-6 BMI: 36.5 Code: 02140-3 Heart Rate 1: 62 bpm Height: 6' SpO2: 94% Weight: 269 lbs 10/19/2016 Blood Pressure 1: 120/80 Code: 8480-6 BMI: 35.9 Code: 46110-5 Heart Rate 1: 64 bpm Height: 6' SpO2: 97% Weight: 265 lbs 08/17/2016 Blood Pressure 1: 112/76 Code: 8480-6 BMI: 36.1 Code: 72892-2 Heart Rate 1: 65 bpm Height: 6' SpO2: 97% Weight: 266 lbs 07/20/2016 Blood Pressure 1: 126/78 Code: 8480-6 BMI: 35.5 Code: 50751-3 Heart Rate 1: 60 bpm Height: 6' SpO2: 95% Weight: 262 lbs 04/19/2016 Blood Pressure 1: 132/78 Code: 8480-6 BMI: 35.1 Code: 89158-1 Heart Rate 1: 65 bpm Height: 6' SpO2: 98% Weight: 259 lbs 01/19/2016 Blood Pressure 1: 140/64 Code: 8480-6 BMI: 34.4 Code: 63721-1 Heart Rate 1: 61 bpm Height: 6' SpO2: 97% Weight: 254 lbs 10/16/2015 Blood Pressure 1: 108/66 Code: 8480-6 BMI: 35.3 Code: 78969-6 Heart Rate 1: 65 bpm Height: 6' SpO2: 96% Weight: 260 lbs 07/17/2015 Blood Pressure 1: 136/74 Code: 8480-6 BMI: 35.8 Code: 22411-9 Heart Rate 1: 59 bpm Height: 6' SpO2: 97% Weight: 263 lbs 13 07/03/2015 Weight: 265 lbs 04/16/2015 Blood Pressure 1: 130/82 Code: 8480-6 BMI: 36.1 Code: 32688-2 Heart Rate 1: 7694 bpm Height: 6' SpO2: 94% Weight: 266 lbs 02/19/2015 Blood Pressure 1: 160/90 Code: 8480-6 BMI: 35.8 Code: 30829-6 Heart Rate 1: 78 bpm Height: 6' SpO2: 94% Weight: 264 lbs 11/20/2014 Blood Pressure 1: 140/96 Code: 8480-6 BMI: 34.6 Code: 51467-8 Heart Rate 1: 92 bpm Height: 6' SpO2: 95% Weight: 255 lbs 11/05/2014 Blood Pressure 1: 132/70 Code: 8480-6 BMI: 34.6 Code: 78181-8 Heart Rate 1: 96 bpm Height: 6' SpO2: 98% Weight: 255 lbs 09/19/2014 Blood Pressure 1: 152/86 Code: 8480-6 BMI: 35.8 Code: 93919-7 Heart Rate 1: 82 bpm Height: 6' SpO2: 95% Weight: 264 lbs 07/24/2014 Blood Pressure 1: 142/82 Code: 8480-6 BMI: 34.7 Code: 06178-0 Heart Rate 1: 72 bpm Height: 6' Weight: 256 lbs 05/23/2014 Blood Pressure 1: 150/82 Code: 8480-6 BMI: 33.4 Code: 09230-6 Heart Rate 1: 68 bpm Height: 6' Weight: 246 lbs 04/18/2014 Blood Pressure 1: 132/84 Code: 8480-6 BMI: 33.2 Code: 88824-5 Heart Rate 1: 80 bpm Height: 6' Weight: 245 lbs 02/21/2014 Blood Pressure 1: 138/82 Code: 8480-6 BMI: 32.4 Code: 77390-6 Heart Rate 1: 85 bpm Height: 6' SpO2: 98% Weight: 239 lbs 12/25/2013 Blood Pressure 1: 146/80 Code: 8480-6 BMI: 30.5 Code: 61471-8 Heart Rate 1: 100 bpm Height: 6' Weight: 225 lbs 11/28/2013 Blood Pressure 1: 120/64 Code: 8480-6 BMI: 30.4 Code: 60655-2 Heart Rate 1: 68 bpm Height: 6' Weight: 224 lbs 11/14/2013 Blood Pressure 1: 124/80 Code: 8480-6 BMI: 30.0 Code: 42159-5 Heart Rate 1: 76 bpm Height: 6' [...] not bring in readings 08/21/2018 -Checked at [facility] Pertinent Findings Denies dizziness 08/21/2018 None [...] Maxitrol and Polytrim seeing eye dr in [place]. Reports eye still feels irritated. headache Quality [...] data Encounters Encounter Performer Location Codes Date ([id number]) 67058 EST. PATIENT, LEVEL II Diagnosis: Rash and other nonspecific skin eruption[ICD10: R21] [facility] CPT-4: 75111 09/04/2018 [id number]) 61839 EST. PATIENT, LEVEL III Diagnosis: Rash and other nonspecific skin eruption[ICD10: R21] Diagnosis: Other pruritus[ICD10: L29.8] [facility] CPT-4: 75579 08/28/[id number]) 49739 EST. PATIENT, LEVEL IV Diagnosis: Essential (primary) hypertension[ICD10: I10] Diagnosis: Pain in right shoulder[ICD10: M25.511] Diagnosis: Muscle weakness (generalized)[ICD10: M62.81] [facility] CPT-4: 31706 08/21/2018 84299 EST. PATIENT, LEVEL III Diagnosis: Tinea barbae and tinea capitis[ICD10: B35.0] Glory Long MD, [facility] CPT-4: 70244 06/27/2018 ([id number]) 87554 EST. 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 PATIENT, LEVEL III Diagnosis: Acute bronchitis due to other specified organisms[ICD10: J20.8] Antoinette Long MD, [facility] CPT-4: 76824 02/08/2018 ([id number]) 02846 EST. 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 PATIENT, LEVEL III Diagnosis: Essential (primary) hypertension[ICD10: I10] Diagnosis: Localized edema[ICD10: R60.0] Diagnosis: Cellulitis of left lower limb[ICD10: L03.116] Quyen Long MD, [facility] CPT-4: 84724 06/07/2017 ([id number]) 33106 EST. 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 PATIENT, LEVEL II Diagnosis: Rash and other nonspecific skin eruption[ICD10: R21] Glory Long MD, [facility] CPT-4: 29045 05/09/2017 ([id number]) 73306 EST. PATIENT, LEVEL II Diagnosis: Rash and other nonspecific skin eruption[ICD10: R21] Glory Long MD, [facility] CPT-4: 50536 04/25/2017 ([id number]) 42939 EST. PATIENT, LEVEL III Diagnosis: Cellulitis of left lower limb[ICD10: L03.116] Diagnosis: Rash and other nonspecific skin eruption[ICD10: R21] Glory Long MD, [facility] CPT-4: 94592 2017 ([id number]) 80285 EST. PATIENT, LEVEL III Diagnosis: Cellulitis of left lower limb[ICD10: L03.116] Diagnosis: Rash and other nonspecific skin eruption[ICD10: R21] Glory Long MD, [facility] CPT-4: 86151 03/29/2017 32297 EST. PATIENT, LEVEL IV Diagnosis: Cellulitis of left lower limb[ICD10: L03.116] Antoinette Long MD, [facility] CPT-4: 36582 03/17/2017 ([id number]) 22285 EST. PATIENT, LEVEL III Diagnosis: Rash and other nonspecific skin eruption[ICD10: R21] Glory Long MD, [facility] CPT-4: 04805 03/08/2017 13162 EST. PATIENT, LEVEL IV Diagnosis: Essential (primary) hypertension[ICD10: I10] Diagnosis: Muscle weakness (generalized)[ICD10: M62.81] Diagnosis: Body mass index (BMI) 36.0-36.9, adult[ICD10: Z68.36] Diagnosis: Family history of ischemic heart disease and other diseases of the circulatory system[ICD10: Z82.49] Antoinette Long MD, [facility] CPT-4: 76665 02/17/2017 ([id number]) 86929 EST. PATIENT, LEVEL IV Diagnosis: Essential (primary) hypertension[ICD10: I10] Diagnosis: Muscle weakness (generalized)[ICD10: M62.81] Quyen Long MD, [facility] CPT-4: 27394 01/18/2017 ([id number]) 88560 EST. 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 PATIENT, LEVEL III Diagnosis: Pain in left shoulder[ICD10: M25.512] Diagnosis: Rash and other nonspecific skin eruption[ICD10: R21] Glory Long MD, [facility] CPT-4: 16496 08/17/2016 ([id number]) 96660 EST. PATIENT, LEVEL IV Diagnosis: Essential (primary) hypertension[ICD10: I10] Diagnosis: Pain in left shoulder[ICD10: M25.512] Quyen Long MD, [facility] CPT-4: 43664 07/20/2016 ([id number]) 03228 EST. 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 PATIENT, LEVEL IV Diagnosis: Essential (primary) hypertension[ICD10: I10] Diagnosis: Other abnormal glucose[ICD10: R73.09] Diagnosis: Gastro-esophageal reflux disease without esophagitis[ICD10: K21.9] Diagnosis: Obesity, unspecified[ICD10: E66.9] Quyen Long MD, [facility] CPT- 4: 48248 04/16/2015 ([id number]) 35463 EST. PATIENT, LEVEL IV Diagnosis: ESSENTIAL HYPERTENSION[ICD9: 401.9] Diagnosis: OBESITY[ICD9: 278.00] Diagnosis: Post-polio limb muscle weakness[ICD9: 728.87] Quyen Long MD, [facility] CPT-4: 30383 02/19/2015 ([id number]) 85190 EST. PATIENT, LEVEL IV Diagnosis: Shingles outbreak[ICD9: 053.9] Diagnosis: ESSENTIAL HYPERTENSION[ICD9: 401.9] Diagnosis: Earache[ICD9: 388.70] Quyen Long MD, [facility] CPT-4: 50246 11/20/2014 ([id number] 04513 EST. PATIENT, LEVEL III Diagnosis: Shingles outbreak[ICD9: 053.9] Diagnosis: Face pain[ICD9: 784.0] Diagnosis: Pain, eye, right[ICD9: 379.91] Quyen Long MD, [facility] CPT-4: 72277 11/05/2014 ([id number]) 13208 EST. PATIENT, LEVEL V Diagnosis: Post-polio limb muscle weakness[ICD9: 728.87] Diagnosis: Post-polio syndrome[ICD9: 138] Diagnosis: Leg weakness[ICD9: 729.89] Diagnosis: Weakness[ICD9: 780.79] Diagnosis: Foot drop[ICD9: 736.79] Quyen Long MD, [facility] CPT-4: 26147 09/19/2014 ([id number]) 21944 EST. PATIENT, LEVEL IV Diagnosis: ESSENTIAL HYPERTENSION[ICD9: 401.9] Diagnosis: Carotid bruit[ICD9: 785.9] Diagnosis: Seborrheic dermatitis[ICD9: 690.10] Diagnosis: Post-polio syndrome[ICD9: 138] Diagnosis: Vitamin D deficiency[ICD9: 268.9] Quyen Long MD, [facility] CPT- 4: 14959 07/24/2014 [id number]) 57470 EST. PATIENT, LEVEL IV Diagnosis: Neck pain[ICD9: 723.1] Diagnosis: Post-polio syndrome[ICD9: 138] Diagnosis: Vitamin D deficiency[ICD9: 268.9] Diagnosis: Vitamin B12 deficiency[ICD9: 266.2] Diagnosis: Nocturia[ICD9: 788.43] Diagnosis: Leg weakness[ICD9: 729.89] Diagnosis: Elevated blood sugar[ICD9: 790.29] Glory Long MD, [facility] CPT- 4: 87103 05/23/2014 ([id number]) 76249 EST. PATIENT, LEVEL IV Diagnosis: ESSENTIAL HYPERTENSION[ICD9: 401.9] Diagnosis: HEADACHE[ICD9: 784.0] Diagnosis: EDEMA[ICD9: 782.3] Quyen Long MD, [facility] CPT-4: 19063 04/18/2014 19941 EST. PATIENT, LEVEL IV Diagnosis: Insomnia[ICD9: 780.52] Diagnosis: Post-polio syndrome[ICD9: 138] Diagnosis: Vitamin D deficiency[ICD9: 268.9] Diagnosis: Nocturnal hypoxemia[ICD9: 799.02] Glory Long MD, [facility] CPT- 4: 28691 02/21/2014 ([id number]) 79792 EST. PATIENT, LEVEL III Diagnosis: Tinea pedis[ICD9: 110.4] Diagnosis: Post-polio limb muscle weakness[ICD9: 728.87] Glory Long MD, [facility] CPT-4: 70361 12/25/2013 ([id number]) 76230 EST. PATIENT, LEVEL IV Diagnosis: Insomnia[ICD9: 780.52] Diagnosis: Vitamin B12 deficiency (dietary) anemia[ICD9: 281.1] Diagnosis: VITAMIN D DEFICIENCY[ICD9: 268.9] Diagnosis: Weakness[ICD9: 780.79] Quyen Long MD, [facility] CPT-4: 99482 11/28/2013 ([id number]) OFFICE/OUTPATIENT VISIT NEW Diagnosis: Post-polio limb muscle weakness[ICD9: 728.87] Diagnosis: Post-polio syndrome[ICD9: 138] Diagnosis: Insomnia[ICD9: 780.52] Diagnosis: Arrhythmia[ICD9: 427.9] Quyen Long MD, [facility] CPT-4: 97821 11/14/2013 Plan of Care Planned Activity Notes [...] if needed 08/28/2018 Appointment: Glory Dalton WPtel: [address] [place], [place] [phone] (30 min) [facility] 08/28/2018 Patient Education: Patient Medication Summary Completed 08/28/2018 Appointment: Quyen Long WPtel: [facility]3 [facility] (15 min) Moderate 08/24/2018 Visit Plan: Hypertension [...] Post-Polio syndrome. 08/21/2018 Appointment: Quyen Long WPtel: [facility]9 [facility] (15 min) Moderate 08/21/2018 Patient Education: Patient Medication Summary Completed 08/21/2018 Patient Education: Hypertension Completed 08/21/2018 Visit Plan: Tinea barbae -rx for ketoconazole written and instructed patient on use -instructed patient to call or return to clinic if symptoms do not resolve or if any worse. Patient verbalized understanding of plan. 06/27/2018 Appointment: Glory Dalton WPtel: [phone] (30 min) Complex 06/27/2018 Patient Education: [...] his shoulder. 04/20/2018 Appointment: Quyen Long WPtel: [facility]0 [facility] (15 min) Moderate 04/20/2018 Patient Education: Patient Medication Summary Completed 04/20/2018 Patient Education: Hypertension Completed 04/20/2018 [phone] ([facility] min) Moderate 04/11/2018 Visit Plan: Post polio syndrome -right leg weakness -patient needs repair and adjustment of his right leg brace that helps with his symptoms of instability and weakness and allows him to ambulate -will send rx to [place] [facility] 03/21/2018 Appointment: Glory Dalton WPtel: [phone] [phone] [place] (15 min) Moderate 03/21/2018 Patient Education: [...] worsen. 02/08/2018 Appointment: [phone] ([facility] min) Complex 02/08/2018 Patient Education: Patient [...] 12/27/2017 Appointment: Quyen Long WPtel: [phone] [facility] (15 min) Moderate 12/08/2017 Visit Plan: Hypertension [...] addie for shoulder injection. 12/06/2017 Appointment: [phone] [facility] (15 min) Moderate 12/06/2017 Patient [...] weight check. 09/07/2017 Appointment: Quyen Long WPtel: [facility] (15 min) Moderate 09/07/2017 Patient Education: [...] lower leg. 06/07/2017 Appointment: Quyen Long WPtel: [facility]9 [facility] (15 min) Moderate 06/07/2017 Patient Education: [...] compression recommended. 05/19/2017 Appointment: Quyen Long WPtel: [facility]9 [facility] (15 min) Moderate 05/19/2017 Patient Education: Patient Medication Summary Completed 05/19/2017 Patient Education: Obesity Completed 05/19/2017 Patient Education: Hypertension Completed 05/19/2017 Visit Plan: Rash-left vuck-cchcvzyt-jlvvhhmegk patient to continue using ketoconazole plus betamethasone equal parts and increase to TID-leave foot open to air as much as possible-follow up in 2 weeks, sooner if needed. 05/09/2017 Appointment: Glory Dalton WPtel: [facility]5 [phone] (30 min) Complex 05/09/2017 Patient Education: Patient Medication Summary Completed 05/09/2017 Patient Education: Obesity Completed 05/09/2017 Visit Plan: Rash-left foot-Dr Long in to evaluate rash-instructed patient to start using ketoconazole plus betamethasone equal parts TID -follow up in 2 weeks, sooner if needed. 04/25/2017 Appointment: Glory Dalton WPtel: [facility]5 [phone] (30 min) Complex 04/25/2017 Patient Education: Patient Medication Summary Completed 04/25/2017 Visit Plan: Cellulitis of left foot-no longer draining-no open areas-no excoriation-slightly red-okay to d/c all treatments-keep clean and monitor-call if redness does not resolve Rash-resolved 2017 Appointment: Glory Dalton WPtel: [facility]5 [phone] (30 min) Complex 2017 Patient Education: Patient Medication Summary Completed 2017 Patient Education: Obesity Completed 2017 Visit Plan: Cellulitis-left foot-MSSA rceuiiig-zfajrzndg-toxzf air in the evening-continue bactroban ointment twice daily-stop using alcohol on foot-no papertowels or abrasives to foot Ncoj-zjee-mb for betamethasone provided and instructed on use 03/29/2017 Appointment: Glory Dalton WPtel: [facility]5 [phone] (30 min) Complex 03/29/2017 Patient Education: Patient Medication Summary Completed 03/29/2017 Patient Education: Obesity Completed 03/29/2017 Appointment: [phone] (30 min) Complex 03/22/2017 Visit Plan: Cellulitis [...] discharge. 03/17/2017 Appointment: Antoin[facility]ndt [phone] (30 min) Complex 03/17/2017 Patient Education: Patient [...] the break. 01/18/2017 Appointment: Quyen Long WPtel: [facility]5 [facility] (15 min) Moderate 01/18/2017 Patient Education: Patient [...] and weakness. 10/19/2016 Appointment: Quyen Long WPtel: [facility]5 [facility] (15 min) Moderate 10/19/2016 Patient Education: Patient Medication Summary Completed 10/19/2016 Patient Education: Obesity Completed 10/19/2016 Visit Plan: Left shoulder pain-hospital f/u recent shoulder surgery with Dr Wilson-doing well-sees Dr Wilson this afternoon for suture removal-pain improved Xbrz-vscy-hkxgydy fungal infection-will treat with ket oconazole -follow up in 2 weeks 08/17/2016 Appointment: Glory Dalton WPtel: [facility]2 [phone] [place] (30 min) Complex 08/17/2016 Patient Education: [...] ambulating. 07/20/2016 Appointment[phone] (15 min) Moderate 07/20/2016 Patient [...] strengthening. 04/19/2016 Appointment: [facility]el[facility] [phone] [facility] (15 min) Moderate 04/19/2016 Patient [...] up appointment. 01/19/2016 Appointment: Quyen Long WPtel: [facility]5 [facility] (15 min) Moderate 01/19/2016 Patient Education: Patient Medication Summary Completed 01/19/2016 Patient Education: Obesity Completed 01/19/2016 Patient Education: Hypertension Completed 01/19/2016 Referral: Dr Mccauley Referral Completed 11/11/2015 Care Plan: Referral Order SNOMED-CT : [id number] Pending 11/03/2015 Visit Plan: Hypertension - well [...] with injection 10/16/2015 Appointment: Quyen Long WPtel: [facility]5 [facility] (15 min) Moderate 10/16/2015 Patient Education: Patient [...] center - 02/19/2015 Appointment: Quyen Long WPtel: [facility] (15 min) Moderate 02/19/2015 Patient [...] drops. 11/20/2014 Appointment: [facility]el[phone] [facility] Follow up 11/20/2014 Patient Education: [...] doctor ESME. 11/05/2014 Appointment: Quyen Long WPtel: [address] [address] [place], [place] [id number] (15 min) Moderate 11/05/2014 Patient Education: Patient [...] foot. 09/19/2014 App[facility]ment[phone] [id number] [place] Follow up 09/19/2014 Patient Education: Patient [...] deficiency - recommended repeat of vitamin d [id number] weekly x 12 weeks and increase vitamin d to 5000 units daily. 07/24/2014 Appointment: [phone] [id number] [place] Follow up 07/24/2014 Patient [...] B12 level 05/23/2014 App[facility]ment: [phone] Follow up 05/23/2014 Patient Education: Patient Medication Summary Completed 05/23/2014 Patient Education: .Cervicalgia Neck Pain Completed 05/23/2014 Appointment: Quyen Long WPtel: [address] [place], [place] [phone] Follow up 05/22/2014 Visit Plan: Edema - [...] at home. 04/18/2014 Appointment: Quyen Long WPtel: [address] [place], [place] [id number] Follow up 04/18/2014 Patient Education: Patient Medication Summary Completed 04/18/2014 Patient Education: Hypertension Completed 04/18/2014 Appointment: Quyen Long WPtel: [address] [place], [place] [phone] Follow up 02/27/2014 Visit Plan: Insomnia - Pt has been advised to increase the light in the house during the day, and start dimming the lights during the evening hours. Pt has been advised to cut out caffeine after 5pm. Daytime napping worsens night time insomnia. START TRAZODONE AND MONITOR SYMPTOMS. Vitamin D fndvnwmydx-cbshcjsa-wdsxsmxg vitamin D 50,000 units weekly for 12 additional weeks. Hypoxemia-continue night time oxygen 02/21/2014 Appointment: Glory Dalton WPtel: [address] [place], [place] [phone] Follow up 02/21/2014 Patient Education: Patient Medication [...] on mobic. 11/28/2013 Appointment: Quyen Long WPtel: [address] [place], [place] [id number] Follow up 11/28/2013 Patient Education: Patient Medication [...] study. 11/14/2013 Appointment: [phone] [id number] [place] New Patient 11/14/2013 Patient Education: Patient Medication Summary Completed 11/14/2013 Referral: Dr Mccauley Referral Appointment Requested Instructions Comment . Rash-left ygvz-wsjhnmeh-rlqnhwwpqi patient to continue using ketoconazole plus betamethasone [...] up in 10 days . Cellulitis-left foot-MSSA fstimdla-gbpbxghll-szcnu air in the evening-continue bactroban ointment twice daily-stop using alcohol on foot-no papertowels or abrasives to foot Irph-nxnx-qm for betamethasone provided and instructed on use [...] START TRAZODONE AND MONITOR SYMPTOMS. Vitamin D iycmaqfxom-dumjfkif-cbhhcagp vitamin D 50,000 units weekly for 12 [...] deficiency - recommended repeat of vitamin d [id number] weekly x 12 weeks and increase vitamin [...] Wilson this afternoon for suture removal-pain improved Ssmq-tvnl-pvnoahw fungal infection-will treat with ketoconazole -follow up [...] him to ambulate -will send rx to [facility]
--- OUTSIDE RECORDS SUMMARY | 2018-11-10 15:38 | XMS REPORT | CCD ---
Author Author Quyen Long Organization Quyen Long MD, [facility] Address [address] [place] [address] Phone Care Team Providers Care Scrap Breaker Name Role Phone PP Unavailable CCM Unavailable Summary Purpose Interface Exchange Insurance Providers Payer name Policy type / Coverage type Covered green party ID Effective Begin Date Effective End Date WPS Medicare Part B Medicare Part B [id number] 2017 Unknown [facility] Medicare Part B [id number] 2017 Unknown Family history Grandmother Diagnosis Age [...] Description Effective Dates Tobacco history SNOMED CT: 0342513 Former smoker 1.5 pack daily x 45 years 12/27/2017 Marital status Unknown 10/19/2016 Living arrangements Unknown Assisted Living [facility] 04/19/2016 Number of children Unknown 1 son - lives in [place] 11/14/2013 Employment Unknown 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 11/14/[address]: 065091832 Never drinks alcohol 11/14/2013 Has the patient [...] Condition Status Onset Date Resolved Date Other pruritus ICD-9: 698.9 ICD-10: L29.8 Active 08/28/2018 Unknown Rash and other nonspecific skin eruption ICD-9: 782.1 ICD-10: R21 Active 08/17/2016 Unknown Essential (primary) hypertension ICD-9: 401.9 ICD-10: [...] Condition Codes Effective Dates Condition Status Other pruritus ICD-9: 698.9 ICD-10: L29.8 08/28/2018 Active Rash and other nonspecific skin eruption ICD-9: 782.1 ICD-10: R21 08/17/2016 Active Essential (primary) hypertension ICD-9: 401.9 ICD-10: [...] Kenalog 40 mg/mL suspension for injection RxNorm: 5336382 Milliliter(s) Inj 08/28/2018 08/28/2018 Inactive ranitidine 150 mg tablet RxNorm: 351259 1 Tablet(s) PO daily 08/21/2018 No Stop Date Active ketoconazole 2 % topical cream RxNorm: 647860 1 Application TOP BID to left ear and left arm, right arm, left - a total of 1 gram bid 08/21/2018 12/18/2018 Active ketoconazole 2 % shampoo RxNorm: 344788 APPLY TO AFFECTED AREA(S) TWICE WEEKLY UNTIL RESOLVED 08/14/2018 09/10/2018 Active cetirizine 10 mg tablet RxNorm: 6092999 TAKE ONE TABLET BY MOUTH EVERY NIGHT AT BEDTIME 08/07/2018 03/04/2019 Active trazodone 50 mg tablet RxNorm: 144437 TAKE ONE TABLET BY MOUTH AT BEDTIME 07/18/2018 11/14/2018 Active ketoconazole 2 % shampoo RxNorm: 011287 1 TOP BIW 06/27/2018 08/13/2018 Inactive Vitamin B-12 1,000 mcg/mL injection solution RxNorm: 627276 INJECT 1ML MONTHLY 06/19/2018 11/15/2018 Active Request already responded to by other means (e.g. phone or fax) Vitamin B-12 1,000 mcg/mL injection solution RxNorm: 687531 Milliliter(s) INJECT 1ML MONTHLY 06/15/2018 06/18/2018 Inactive Zithromax Z-Brian 250 mg tablet RxNorm: 176115 1 Tablet(s) PO UD 06/14/2018 08/20/2018 Inactive zpack as directed x1 tamsulosin 0.4 mg capsule RxNorm: 483154 TAKE ONE CAPSULE BY MOUTH EVERY EVENING 06/12/2018 01/07/2019 Active gabapentin 300 mg capsule RxNorm: 478272 TAKE ONE CAPSULE BY MOUTH TWICE A DAY 05/31/2018 09/27/2018 Active losartan 50 mg tablet RxNorm: 649619 TAKE ONE TABLET BY MOUTH DAILY 05/01/2018 09/27/2018 Active Toprol XL 50 mg tablet,extended release RxNorm: 803977 1 Tablet(s) PO daily 04/20/2018 No Stop Date Active Vitamin D3 5,000 unit tablet RxNorm: 907507 TAKE ONE TABLET BY MOUTH DAILY 04/05/2018 02/28/2019 Active trazodone 50 mg tablet RxNorm: 202421 TAKE ONE TABLET BY MOUTH AT BEDTIME 02/27/2018 07/17/2018 Inactive hydrochlorothiazide 25 mg tablet RxNorm: 470144 TAKE ONE TABLET BY MOUTH DAILY 02/13/2018 11/09/2018 Active ranitidine 150 mg tablet RxNorm: 506918 1 Tablet(s) PO BID 02/13/2018 08/20/2018 Inactive albuterol sulfate 2.5 mg/3 mL (0.083 %) solution for nebulization RxNorm: 404036 3 Milliliter(s) INH UD 02/08/2018 No Stop Date Active please deliver all of his prescriptions thank you cefdinir 300 mg capsule RxNorm: 961974 1 Capsule(s) PO BID 02/08/2018 02/17/2018 Inactive prednisone 20 mg tablet RxNorm: 817187 2 Tablet(s) PO daily 02/08/2018 02/12/2018 Inactive fluticasone 50 mcg/actuation nasal spray,suspension RxNorm: 9039745 1 [place] NASAL BID 02/07/2018 06/06/2018 Inactive fluticasone 50 mcg/actuation nasal spray,suspension RxNorm: 8088089 1 [place] NASAL BID 02/07/2018 02/06/2018 Inactive Zithromax Z-Brian 250 mg tablet RxNorm: 955554 1 Tablet(s) PO UD 02/07/2018 03/14/2018 Inactive zdavinck as directed tamsulosin 0.4 mg capsule RxNorm: 233225 TAKE ONE CAPSULE BY MOUTH EVERY EVENING 01/13/2018 06/11/2018 Inactive Vitamin D3 5,000 unit tablet RxNorm: 942113 TAKE ONE TABLET BY MOUTH DAILY 01/02/2018 04/04/2018 Inactive cetirizine 10 mg tablet RxNorm: 9576971 TAKE ONE TABLET BY MOUTH EVERY NIGHT AT BEDTIME 01/02/2018 04/01/2018 Inactive cetirizine 10 mg tablet RxNorm: 1962190 1 Tablet(s) PO QHS 12/26/2017 01/01/2018 Inactive cetirizine 10 mg tablet RxNorm: 7687307 1 Tablet(s) PO QHS 12/26/2017 12/25/2017 Inactive losartan 50 mg tablet RxNorm: 810593 TAKE ONE TABLET BY MOUTH DAILY (STARTING 09-09-2017) 09/29/2017 03/27/2018 Inactive Request already responded to by other means (e.g. phone or fax) losartan 50 mg tablet RxNorm: 418793 1 Tablet(s) PO daily 09/27/2017 09/26/2017 Inactive losartan 50 mg tablet RxNorm: 351512 1 Tablet(s) PO daily 09/27/2017 09/28/2017 Inactive Bactrim DS 800 mg-160 mg tablet RxNorm: 137500 1 Tablet(s) PO BID 09/13/2017 09/19/2017 Inactive Kenalog 40 mg/mL suspension for injection RxNorm: 8920566 1 Milliliter(s) Inj 09/07/2017 09/07/2017 Inactive trazodone 50 mg tablet RxNorm: 912943 TAKE ONE TABLET BY MOUTH AT BEDTIME 08/16/2017 02/11/2018 Inactive gabapentin 300 mg capsule RxNorm: 573255 1 Capsule(s) PO BID 08/03/2017 01/29/2018 Inactive Vitamin D3 5,000 unit tablet RxNorm: 165676 TAKE ONE TABLET BY MOUTH DAILY 08/01/2017 12/28/2017 Inactive ketoconazole 2 % topical cream RxNorm: 198558 APPLY TO AFFECTED AREA(S) TWO TIMES A DAY 05/31/2017 06/29/2017 Inactive hydrochlorothiazide 25 mg tablet RxNorm: 495727 TAKE ONE TABLET BY MOUTH DAILY 05/16/2017 02/09/2018 Inactive lisinopril 20 mg tablet RxNorm: 663560 TAKE ONE TABLET BY MOUTH DAILY 05/16/2017 09/06/2017 Inactive ketoconazole 2 % topical cream RxNorm: 767306 1 Application TOP BID 03/29/2017 04/11/2017 Inactive apply to faice-deliver to [facility] please betamethasone dipropionate 0.05 % topical ointment RxNorm: 705577 1 Application TOP BID 03/29/2017 04/11/2017 Inactive apply to arm/chests for itching gabapentin 300 mg capsule RxNorm: 342012 1 Capsule(s) PO BID 03/29/2017 08/02/2017 Inactive trazodone 50 mg tablet RxNorm: 209164 TAKE ONE TABLET BY MOUTH AT BEDTIME 03/28/2017 08/15/2017 Inactive Vesicare 10 mg tablet RxNorm: 152816 TAKE ONE TABLET BY MOUTH EVERY NIGHT AT BEDTIME 03/21/2017 12/26/2017 Inactive Vesicare 10 mg tablet RxNorm: 564654 TAKE ONE TABLET BY MOUTH EVERY NIGHT AT BEDTIME 03/21/2017 06/06/2017 Inactive doxycycline hyclate 100 mg capsule RxNorm: 2121891 1 Capsule(s) PO BID 03/18/2017 03/27/2017 Inactive mupirocin 2 % topical ointment RxNorm: 000040 1 Application TOP BID 03/17/2017 08/27/2018 Inactive doxycycline hyclate 100 mg tablet RxNorm: 914656 1 Tablet(s) PO BID 03/09/2017 03/15/2017 Inactive Take probiotic BID while on ABT doxycycline hyclate 100 mg tablet RxNorm: 733158 1 Tablet(s) PO BID 03/09/2017 03/08/2017 Inactive Take probiotic BID while on ABT meloxicam 15 mg tablet RxNorm: 877039 TAKE ONE TABLET BY MOUTH DAILY 02/10/2017 12/06/2017 Inactive Vitamin D3 5,000 unit tablet RxNorm: 992825 TAKE ONE TABLET BY MOUTH DAILY 02/08/2017 07/31/2017 Inactive Vitamin B-12 1,000 mcg/mL injection solution RxNorm: 397198 INJECT 1ML MONTHLY 01/24/2017 07/22/2017 Inactive lisinopril 20 mg tablet RxNorm: 340437 TAKE ONE TABLET BY MOUTH DAILY 12/13/2016 04/11/2017 Inactive trazodone 50 mg tablet RxNorm: 098953 TAKE ONE TABLET BY MOUTH AT BEDTIME 09/24/2016 03/22/2017 Inactive Vitamin D3 5,000 unit tablet RxNorm: 869550 TAKE ONE TABLET BY MOUTH DAILY 09/20/2016 02/07/2017 Inactive lisinopril 20 mg tablet RxNorm: 414060 TAKE ONE TABLET BY MOUTH DAILY 09/13/2016 12/12/2016 Inactive ketoconazole 2 % topical cream RxNorm: 724684 1 Application TOP BID 08/17/2016 08/30/2016 Inactive deliver to [facility] please Pepcid 20 mg tablet RxNorm: 821526 TAKE ONE TABLET BY MOUTH TWICE A DAY 07/12/2016 12/26/2017 Inactive omega-3 acid ethyl esters 1 gram capsule RxNorm: 598376 3 Capsule(s) PO daily 06/18/2016 12/14/2016 Inactive omega-3 acid ethyl esters 1 gram capsule RxNorm: 087528 3 Capsule(s) PO daily 06/18/2016 06/17/2016 Inactive trazodone 50 mg tablet RxNorm: 132606 TAKE ONE TABLET BY MOUTH AT BEDTIME 06/08/2016 08/06/2016 Inactive tamsulosin 0.4 mg capsule RxNorm: 548483 Capsule(s) TAKE ONE CAPSULE BY MOUTH EVERY EVENING 06/04/2016 12/30/2016 Inactive hydrochlorothiazide 25 mg tablet RxNorm: 258517 TAKE ONE TABLET BY MOUTH DAILY 05/10/2016 05/09/2016 Inactive hydrochlorothiazide 25 mg tablet RxNorm: 669705 TAKE ONE TABLET BY MOUTH DAILY 05/10/2016 02/12/2018 Inactive Pepcid 20 mg tablet RxNorm: 533642 1 Tablet(s) PO BID 03/18/2016 03/17/2016 Inactive Pepcid 20 mg tablet RxNorm: 838590 1 Tablet(s) PO BID 03/18/2016 07/11/2016 Inactive lisinopril 20 mg tablet RxNorm: 450358 TAKE ONE TABLET BY MOUTH DAILY 03/18/2016 08/14/2016 Inactive Vitamin D3 5,000 unit tablet RxNorm: 052727 Tablet(s) TAKE ONE TABLET BY MOUTH DAILY 03/18/2016 09/13/2016 Inactive trazodone 50 mg tablet RxNorm: 654459 TAKE ONE TABLET BY MOUTH AT BEDTIME 03/15/2016 06/07/2016 Inactive Vesicare 10 mg tablet RxNorm: 441481 1 Tablet(s) PO QHS 03/15/2016 02/07/2017 Inactive meloxicam 15 mg tablet RxNorm: 748072 TAKE ONE TABLET BY MOUTH DAILY 03/01/2016 01/24/2017 Inactive Bactrim DS 800 mg-160 mg tablet RxNorm: 931022 1 Tablet(s) PO BID 02/10/2016 02/09/2016 Inactive Bactrim DS 800 mg-160 mg tablet RxNorm: 085681 1 Tablet(s) PO BID 02/10/2016 02/16/2016 Inactive Cipro 500 mg tablet RxNorm: 824448 1 Tablet(s) PO BID 02/06/2016 02/09/2016 Inactive Cipro 500 mg tablet RxNorm: 555466 1 Tablet(s) PO BID 02/06/2016 02/05/2016 Inactive Pennsaid 20 mg/gram/actuation (2 %) topical soln in metered- dose pump RxNorm: 3643846 2 pumps TOP BID 01/19/2016 04/19/2016 Inactive tamsulosin 0.4 mg capsule RxNorm: 614794 TAKE ONE CAPSULE BY MOUTH EVERY EVENING 01/12/2016 06/03/2016 Inactive cyanocobalamin (vit B-12) 1,000 mcg/mL injection solution RxNorm: 884444 INJECT 1 ML INTRAMUSCULARLY MONTHLY 01/01/2016 10/26/2016 Inactive Request already responded to by other means (e.g. phone or fax) Vitamin B-12 1,000 mcg/mL injection solution RxNorm: 914694 1 Milliliter(s) Inj monthly 12/24/2015 04/19/2016 Inactive please give syringes for injections Vitamin D3 5,000 unit tablet RxNorm: 103286 TAKE ONE TABLET BY MOUTH DAILY 12/08/2015 03/06/2016 Inactive pantoprazole 40 mg tablet,delayed release RxNorm: 647390 TAKE ONE TABLET BY MOUTH DAILY 12/08/2015 03/17/2016 Inactive trazodone 50 mg tablet RxNorm: 042109 TAKE ONE TABLET BY MOUTH AT BEDTIME 11/10/2015 03/08/2016 Inactive lisinopril 20 mg tablet RxNorm: 159082 TAKE ONE TABLET BY MOUTH DAILY 09/08/2015 03/05/2016 Inactive Vitamin D3 5,000 unit tablet RxNorm: 132825 1 Tablet(s) PO daily 08/12/2015 12/07/2015 Inactive pantoprazole 40 mg tablet,delayed release RxNorm: 188990 1 Tablet(s) PO daily 08/12/2015 12/07/2015 Inactive tamsulosin 0.4 mg capsule RxNorm: 681798 TAKE ONE CAPSULE BY MOUTH EVERY EVENING 07/21/2015 12/17/2015 Inactive trazodone 50 mg tablet RxNorm: 362442 TAKE ONE TABLET BY MOUTH AT BEDTIME 05/09/2015 10/05/2015 Inactive hydrochlorothiazide 25 mg tablet RxNorm: 152238 1 Tablet(s) PO QAM 04/30/2015 04/29/2015 Inactive hydrochlorothiazide 25 mg tablet RxNorm: 042024 TAKE ONE TABLET BY MOUTH DAILY 04/30/2015 02/12/2018 Inactive pantoprazole 40 mg tablet,delayed release RxNorm: 227285 1 Tablet(s) PO daily 04/16/2015 08/11/2015 Inactive meloxicam 15 mg tablet RxNorm: 404764 TAKE ONE TABLET BY MOUTH DAILY 03/03/2015 02/25/2016 Inactive lisinopril 20 mg tablet RxNorm: 581009 1 Tablet(s) PO daily 02/19/2015 09/07/2015 Inactive tamsulosin 0.4 mg capsule RxNorm: 761559 TAKE ONE CAPSULE BY MOUTH EVERY EVENING 01/20/2015 07/18/2015 Inactive cyanocobalamin (vit B-12) 1,000 mcg/mL injection solution RxNorm: 512579 Milliliter(s) INJECT 1ML INTRAMUSCULARLY MONTHLY 12/12/2014 12/22/2014 Inactive trazodone 50 mg tablet RxNorm: 620974 TAKE ONE TABLET BY MOUTH AT BEDTIME 11/14/2014 05/08/2015 Inactive erythromycin 5 mg/gram (0.5 %) eye ointment RxNorm: 330995 1/2 inch OPH QID 11/05/2014 11/14/2014 Inactive acyclovir 800 mg tablet RxNorm: 139525 1 Tablet(s) PO TID 11/05/2014 11/18/2014 Inactive Zofran 4 mg tablet RxNorm: 311291 1 Tablet(s) PO Q4H as needed nausea 11/05/2014 01/03/2015 Inactive Duragesic 12 mcg/hr transdermal patch RxNorm: 736990 1 Patch TD Q72H 11/05/2014 02/04/2015 Inactive Imitrex 100 mg tablet RxNorm: 763652 1 Tablet(s) PO q 12 hours 11/04/2014 04/15/2015 Inactive naproxen 500 mg tablet RxNorm: 296311 1 Tablet(s) PO BID 10/30/2014 11/01/2014 Inactive meloxicam 15 mg tablet RxNorm: 611195 TAKE ONE TABLET BY MOUTH DAILY 10/04/2014 03/02/2015 Inactive Vesicare 5 mg tablet RxNorm: 127413 TAKE ONE TABLET BY MOUTH AT BEDTIME 09/16/2014 07/16/2015 Inactive Vitamin D2 50,000 unit capsule RxNorm: 004071 1 Capsule(s) PO QW 09/06/2014 07/16/2015 Inactive once weekly x 12 weeks tamsulosin ER 0.4 mg capsule,extended release 24 hr RxNorm: 153766 TAKE ONE CAPSULE BY MOUTH EVERY EVENING 06/24/2014 12/20/2014 Inactive tamsulosin ER 0.4 mg capsule,extended release 24 hr RxNorm: 699179 1 Capsule(s) PO QPM 06/24/2014 01/19/2015 Inactive Vitamin D2 50,000 unit capsule RxNorm: 548781 1 Capsule(s) PO QW 05/27/2014 09/05/2014 Inactive once weekly x 12 weeks Vesicare 5 mg tablet RxNorm: 216651 1 Tablet(s) PO QHS 05/23/2014 05/22/2014 Inactive Vesicare 5 mg tablet RxNorm: 717629 1 Tablet(s) PO QHS 05/23/2014 09/15/2014 Inactive trazodone 50 mg tablet RxNorm: 839404 TAKE ONE TABLET BY MOUTH AT BEDTIME 05/13/2014 11/08/2014 Inactive trazodone 50 mg tablet RxNorm: 516825 TAKE ONE TABLET BY MOUTH AT BEDTIME 05/13/2014 11/08/2014 Inactive hydrochlorothiazide 25 mg tablet RxNorm: 621732 1 Tablet(s) PO [facility] 04/18/2014 01/12/2015 Inactive Vitamin D2 50,000 unit capsule RxNorm: 621562 TAKE ONE CAPSULE BY MOUTH ONCE WEEKLY FOR 12 WEEKS 04/09/2014 05/14/2014 Inactive trazodone 50 mg tablet RxNorm: 902525 1 Tablet(s) PO QHS 02/22/2014 05/12/2014 Inactive trazodone 50 mg tablet RxNorm: 463792 1 Tablet(s) PO QHS 02/22/2014 02/21/2014 Inactive Vitamin D2 50,000 unit capsule RxNorm: 256756 TAKE ONE CAPSULE BY MOUTH ONCE WEEKLY FOR 12 WEEKS 02/07/2014 03/06/2014 Inactive meloxicam 15 mg tablet RxNorm: 734056 TAKE ONE TABLET BY MOUTH ONCE A DAY 02/07/2014 08/05/2014 Inactive meloxicam 15 mg tablet RxNorm: 217348 TAKE ONE TABLET BY MOUTH ONCE A DAY 02/07/2014 2014 Inactive clotrimazole 1 % topical cream RxNorm: 638079 1 Application TOP BID 12/25/2013 07/16/2015 Inactive Diflucan 150 mg tablet RxNorm: 906675 1 Tablet(s) PO daily 12/25/2013 12/31/2013 Inactive tamsulosin ER 0.4 mg capsule,extended release 24 hr RxNorm: 389344 1 Capsule(s) PO QPM 11/28/2013 06/23/2014 Inactive cyanocobalamin (vit B-12) 1,000 mcg/mL injection solution RxNorm: 386314 1 Milliliter(s) Inj 11/28/2013 12/12/2014 Inactive Vitamin B-12 1,000 mcg/mL injection solution RxNorm: 067513 1 Milliliter(s) Inj monthly 11/21/2013 02/13/2015 Inactive please give syringes for injections Vitamin D2 50,000 unit capsule RxNorm: 067125 1 Capsule(s) PO QW x 12 weeks 11/21/2013 02/06/2014 Inactive [SAVINGS FOR UNINSURED PATIENTS -- to take addtional 2000 units daily Vitamin B-12 1,000 mcg/mL injection solution RxNorm: 118941 1 Milliliter(s) Inj monthly 11/21/2013 11/20/2013 Inactive meloxicam 15 mg tablet RxNorm: 327677 1 Tablet(s) PO daily 11/20/2013 11/19/2013 Inactive [SAVINGS FOR UNINSURED PATIENTS -- BIN:201743, PCN: [id number], Group: [id number], ID# [id number], Process claim through [employer], for questions: . THIS IS NOT INSURANCE.] meloxicam 15 mg tablet RxNorm: 610769 1 Tablet(s) PO daily 11/20/2013 02/06/2014 Inactive [SAVINGS FOR UNINSURED PATIENTS -- BIN:543017, PCN: [id number], Group: [id number], ID# [id number], Process claim through [employer], for questions: . THIS IS NOT INSURANCE.] meloxicam 15 mg tablet RxNorm: 621085 1 Tablet(s) PO daily 11/20/2013 11/19/2013 Inactive Voltaren 1 % topical gel RxNorm: 717478 4 Application TOP QID apply to back, affected joints four times daily 11/14/2013 11/20/2013 Inactive Iron (ferrous sulfate) 325 mg (65 mg iron) tablet RxNorm: 630801 1 Tablet(s) PO daily No Start Date Active trazodone 50 mg tablet RxNorm: 830581 1 Tablet(s) PO QHS No Start Date Active Vitamin D2 50,000 unit capsule RxNorm: 085236 1 Capsule(s) PO QW No Start Date 05/26/2014 Inactive once weekly x 12 weeks Zithromax Z-Brian 250 mg tablet RxNorm: 592576 1 Tablet(s) PO UD No Start Date 02/06/2018 Inactive Vitamin D2 50,000 unit capsule RxNorm: 953223 1 Capsule(s) PO QW No Start Date 11/20/2013 Inactive gabapentin 300 mg capsule RxNorm: 849907 1 Capsule(s) PO TID No Start Date 03/28/2017 Inactive Vesicare 10 mg tablet RxNorm: 206535 1 Tablet(s) PO QHS No Start Date 03/14/2016 Inactive Toprol XL 25 mg tablet,extended release RxNorm: 365211 1 Tablet(s) PO daily No Start Date 04/19/2018 Inactive Vitamin D3 5,000 unit tablet RxNorm: 520177 1 Tablet(s) PO daily No Start Date 08/11/2015 Inactive Celebrex 200 mg capsule RxNorm: 370639 1 Capsule(s) PO BID No Start Date 07/19/2016 Inactive Imitrex 50 mg tablet RxNorm: 453231 1 Tablet(s) PO now and may repeat up to four times in 24 hours No Start Date 11/03/2014 Inactive Zofran 4 mg tablet RxNorm: 424149 1 Tablet(s) PO Q8 as needed nausea and vomitting No Start Date 10/15/2015 Inactive ranitidine 150 mg tablet RxNorm: 599345 1 Tablet(s) PO BID No Start Date 02/12/2018 Inactive Phenergan 25 mg tablet RxNorm: 426077 1 Tablet(s) PO now No Start Date 04/15/2015 Inactive Tums oral RxNorm: 508679 oral No Start Date 10/15/2015 Inactive Medication Administered Medication Codes Instructions Start Date Status Kenalog 40 mg/mL suspension for injection RxNorm: 7762710 Milliliter 08/28/2018 No longer Active Kenalog 40 mg/mL suspension for injection RxNorm: 6054881 1Milliliter 09/07/2017 No longer Active cyanocobalamin (vit B-12) 1,000 mcg/mL injection solution RxNorm: 469986 1Milliliter 11/28/2013 No longer Active Immunizations Vaccine Codes Date Status Influenza CVX: 141 04/06/2017 completed PPD Unknown 07/03/2015 completed Zoster CVX: 121 11/29/2014 completed Influenza CVX: 141 03/26/2013 completed Assessments Condition Codes Effective Dates Other pruritus ICD-10: L29.8 ICD-9: 698.9 08/28/2018 Rash and other nonspecific skin eruption ICD-10: R21 ICD-9: 782.1 08/28/2018 Muscle weakness (generalized) ICD-10: M62.81 ICD-9: [...] Reason For Visit Effective Dates Notes rash 08/28/2018 hypertension 08/21/2018 rash 06/27/2018 shoulder [...] recently went to an eye doctor in [place]. Reports that he did have hemorrhaging in his right eye which is getting better. headache 04/18/2014 Pt states he recently went to an eye doctor in [place] shortness of breath 02/21/2014 blisters 12/25/2013 insomnia 11/28/2013 back pain 11/14/2013 Results Observation Observation Code Item Item Code Result Date Vitamin D 25 Oh [id number] VITAMIN D, 25 HYDROXY 66.80 ng/mL 03/14/2018 [...] 28.5 pg 03/14/2018 Cbc With Differential Ord2 Saline% 7.6 % 03/14/2018 Cbc With Differential Ord2 [...] 1.28 K/ul 03/14/2018 Cbc With Differential Ord2 Saline ABS# 0.4 K/ul 03/14/2018 Cbc With Differential [...] Lipid Ord30 C/HDL 5.0 Ratio 06/27/2017 %Hba1C Lrf077 % HbA1c 51193- 6 6.2 % 06/27/2017 %Hba1C Eyx263 Gluc Ave 131 mg/dL 06/27/2017 Comp Metabolic Flw994 NA 140 mEq/L 06/27/2017 Comp Metabolic Moq823 K 4.2 mEq/L 06/27/2017 Comp Metabolic Mas934 CL 100 mEq/L 06/27/2017 Comp Metabolic Vwd142 CO2 32.0 mEq/L 06/27/2017 Comp Metabolic Yhc601 ANION GAP 12 06/27/2017 Comp Metabolic Qjg479 GLUCOSE 118 mg/dL 06/27/2017 Comp Metabolic Bky085 Creat 1.0 mg/dL 06/27/2017 Comp Metabolic Sbr323 eGFR 82 ml/min/1.73m2 06/27/2017 Comp Metabolic Ygn622 BUN 26 mg/dL 06/27/2017 Comp Metabolic Hyp931 B/C Ratio 27.1 Ratio 06/27/2017 Comp Metabolic Xhp614 CALCIUM 9.6 mg/dL 06/27/2017 Comp Metabolic Ppz955 ALK PHOS 46 U/L 06/27/2017 Comp Metabolic Lzg151 AST(SGOT) 23 U/L 06/27/2017 Comp Metabolic Cqk159 ALT(SGPT) 31 U/L 06/27/2017 Comp Metabolic Xrj468 BILI T 0.5 mg/dL 06/27/2017 Comp Metabolic Iba470 ALBUMIN 4.2 g/dL 06/27/2017 Comp Metabolic Jpv736 TPRO 6.6 g/dL 06/27/2017 Comp Metabolic Acx208 GLOB 2.4 g/dL 06/27/2017 Comp Metabolic Mqu019 A/G Ratio 1.7 Ratio 06/27/2017 Comp Metabolic Yiw915 Osmo 285 mOsmo 06/27/2017 Cbc With Differential [...] 29.0 pg 10/20/2016 Cbc With Differential Ord2 Saline% 9.0 % 10/20/2016 Cbc With Differential Ord2 [...] 1.33 K/ul 10/20/2016 Cbc With Differential Ord2 Saline ABS# 0.4 K/ul 10/20/2016 Cbc With Differential Ord2 Eos ABS# 0.2 K/ul 10/20/2016 Cbc With Differential Ord2 Baso ABS# 0.0 K/ul 10/20/2016 Comp Metabolic Tjy259 NA 143 mEq/L 10/20/2016 Comp Metabolic Glf176 K 4.6 mEq/L 10/20/2016 Comp Metabolic Drt557 CL 104 mEq/L 10/20/2016 Comp Metabolic Aea591 CO2 31.0 mEq/L 10/20/2016 Comp Metabolic Tug589 ANION GAP 13 10/20/2016 Comp Metabolic Mbi321 GLUCOSE 117 mg/dL 10/20/2016 Comp Metabolic Vkq478 Creat 1.1 mg/dL 10/20/2016 Comp Metabolic Ttf720 eGFR 74 ml/min/1.73m2 10/20/2016 Comp Metabolic Rof265 BUN 27 mg/dL 10/20/2016 Comp Metabolic Led303 B/C Ratio 25.7 Ratio 10/20/2016 Comp Metabolic Bbr621 CALCIUM 9.3 mg/dL 10/20/2016 Comp Metabolic Wdb562 ALK PHOS 47 U/L 10/20/2016 Comp Metabolic Sia397 AST(SGOT) 18 U/L 10/20/2016 Comp Metabolic Odn629 ALT(SGPT) 22 U/L 10/20/2016 Comp Metabolic Bkb741 BILI T 0.5 mg/dL 10/20/2016 Comp Metabolic Jhm801 ALBUMIN 3.9 g/dL 10/20/2016 Comp Metabolic Eaz140 TPRO 6.5 g/dL 10/20/2016 Comp Metabolic Qld606 GLOB 2.6 g/dL 10/20/2016 Comp Metabolic Iik278 A/G Ratio 1.5 Ratio 10/20/2016 Comp Metabolic Zsu472 Osmo 291 mOsmo 10/20/2016 Tsh Ord6 hTSH II 1.56 uIU/mL 10/20/2016 Lipid Ord30 CHOL 153 mg/dL 10/20/2016 Lipid Ord30 HDL 34.0 mg/dl 10/20/2016 Lipid Ord30 TRIG 123 mg/dL 10/20/2016 Lipid Ord30 LDL 94 mg/dL 10/20/2016 Lipid Ord30 C/HDL 4.5 Ratio 10/20/2016 B12 Ngq428 B12 544.00 pg/ml 10/20/2016 Comp Metabolic Xmk253 NA 138 mEq/L 05/13/2016 Comp Metabolic Qix448 K 4.2 mEq/L 05/13/2016 Comp Metabolic Vnc811 CL 102 mEq/L 05/13/2016 Comp Metabolic Usj280 CO2 30.0 mEq/L 05/13/2016 Comp Metabolic Qfb127 ANION GAP 10 05/13/2016 Comp Metabolic Obs839 GLUCOSE 113 mg/dL 05/13/2016 Comp Metabolic Pdt800 Creat 1.0 mg/dL 05/13/2016 Comp Metabolic Hwt141 eGFR 77 ml/min/1.73m2 05/13/2016 Comp Metabolic Zds162 BUN 26 mg/dL 05/13/2016 Comp Metabolic Bly273 B/C Ratio 25.5 Ratio 05/13/2016 Comp Metabolic Kig221 CALCIUM 9.7 mg/dL 05/13/2016 Comp Metabolic Uta927 ALK PHOS 51 U/L 05/13/2016 Comp Metabolic Lit506 AST(SGOT) 17 U/L 05/13/2016 Comp Metabolic Vvw919 ALT(SGPT) 20 U/L 05/13/2016 Comp Metabolic Upq193 BILI T 0.6 mg/dL 05/13/2016 Comp Metabolic Xwa090 ALBUMIN 4.0 g/dL 05/13/2016 Comp Metabolic Nve289 TPRO 6.6 g/dL 05/13/2016 Comp Metabolic Nnq752 GLOB 2.6 g/dL 05/13/2016 Comp Metabolic Trc793 A/G Ratio 1.6 Ratio 05/13/2016 Comp Metabolic Rle760 Osmo 281 mOsmo 05/13/2016 Lipid Ord30 CHOL [...] 29.3 pg 02/11/2016 Cbc With Differential Ord2 Saline% 7.7 % 02/11/2016 Cbc With Differential Ord2 [...] 1.18 K/ul 02/11/2016 Cbc With Differential Ord2 Saline ABS# 0.4 K/ul 02/11/2016 Cbc With Differential Ord2 Eos ABS# 0.1 K/ul 02/11/2016 Cbc With Differential Ord2 Baso ABS# 0.0 K/ul 02/11/2016 Comp Metabolic Ftv715 NA 138 mEq/L 02/11/2016 Comp Metabolic Avg371 K 4.0 mEq/L 02/11/2016 Comp Metabolic Lmk972 CL 97 mEq/L 02/11/2016 Comp Metabolic Huo721 CO2 32.0 mEq/L 02/11/2016 Comp Metabolic Cby768 ANION GAP 13 02/11/2016 Comp Metabolic Hhk488 GLUCOSE 117 mg/dL 02/11/2016 Comp Metabolic Diz576 Creat 1.0 mg/dL 02/11/2016 Comp Metabolic Ahv753 eGFR 81 ml/min/1.73m2 02/11/2016 Comp Metabolic Oyz067 BUN 21 mg/dL 02/11/2016 Comp Metabolic Jwf656 B/C Ratio 21.4 Ratio 02/11/2016 Comp Metabolic Kfs861 CALCIUM 9.2 mg/dL 02/11/2016 Comp Metabolic Uvk420 ALK PHOS 48 U/L 02/11/2016 Comp Metabolic Cqc639 AST(SGOT) 18 U/L 02/11/2016 Comp Metabolic Krv653 ALT(SGPT) 22 U/L 02/11/2016 Comp Metabolic Zab569 BILI T 0.5 mg/dL 02/11/2016 Comp Metabolic Jbg397 ALBUMIN 3.9 g/dL 02/11/2016 Comp Metabolic Rap813 TPRO 6.3 g/dL 02/11/2016 Comp Metabolic Ehk318 GLOB 2.5 g/dL 02/11/2016 Comp Metabolic Rqq954 A/G Ratio 1.6 Ratio 02/11/2016 Comp Metabolic Wev701 Osmo 280 mOsmo 02/11/2016 Lipid Ord30 CHOL 163 mg/dL 02/11/2016 Lipid Ord30 HDL 35.0 mg/dl 02/11/2016 Lipid Ord30 TRIG 200 mg/dL 02/11/2016 Lipid Ord30 LDL 88 mg/dL 02/11/2016 Lipid Ord30 C/HDL 4.7 Ratio 02/11/2016 %Hba1C Tjp282 % HbA1c 96782- 6 6.5 % 02/11/2016 %Hba1C Sfe872 Gluc Ave 140 mg/dL 02/11/2016 Tsh Ord6 hTSH II 2.07 uIU/mL 02/11/2016 B12 Dqi097 B12 563.00 pg/ml 02/11/2016 Culture Urine [id number] URINE CULTURE SEE NOTES 02/10/2016 Culture Urine [id number] Continued Results 02/10/2016 Urine Culture Ucult Complete [...] hours from collection if refrigerated) 11/04/2015 %Hba1C Bmq751 % HbA1c 93206- 6 6.4 % 04/16/2015 %Hba1C Yjx893 Gluc Ave 137 mg/dL 04/16/2015 Tsh Ord6 hTSH II 3.33 uIU/mL 02/07/2015 Comp Metabolic Ete772 NA 136 mEq/L 02/07/2015 Comp Metabolic Jyl660 K 3.9 mEq/L 02/07/2015 Comp Metabolic Chu128 CL 98 mEq/L 02/07/2015 Comp Metabolic Wrk823 CO2 31.0 mEq/L 02/07/2015 Comp Metabolic Kdr762 ANION GAP 11 02/07/2015 Comp Metabolic Xrv305 GLUCOSE 139 mg/dL 02/07/2015 Comp Metabolic Vqz884 Creat 0.9 mg/dL 02/07/2015 Comp Metabolic Hch383 eGFR 87 ml/min/1.73m2 02/07/2015 Comp Metabolic Vgf221 BUN 20 mg/dL 02/07/2015 Comp Metabolic Htq257 B/C Ratio 21.7 Ratio 02/07/2015 Comp Metabolic Vao397 CALCIUM 9.7 mg/dL 02/07/2015 Comp Metabolic Zdg982 ALK PHOS 55 U/L 02/07/2015 Comp Metabolic Yla058 AST(SGOT) 20 U/L 02/07/2015 Comp Metabolic Ghr529 ALT(SGPT) 27 U/L 02/07/2015 Comp Metabolic Wol086 BILI T 0.5 mg/dL 02/07/2015 Comp Metabolic Srx170 ALBUMIN 4.3 g/dL 02/07/2015 Comp Metabolic Txd557 TPRO 6.9 g/dL 02/07/2015 Comp Metabolic Ocg492 GLOB 2.6 g/dL 02/07/2015 Comp Metabolic Agu730 A/G Ratio 1.7 Ratio 02/07/2015 Comp Metabolic Fan578 Osmo 277 mOsmo 02/07/2015 Cbc With Differential [...] Ord2 RDW 14.8 % 02/07/2015 A1C HPLC [id number] A1C HPLC 90183-0 6.0 % 05/23/2014 VIT B 12 [id number] VIT B 12 479 PG/ML 05/23/2014 VIT D TOTL [id number] VIT D TOTL 29 NG/ML 05/23/2014 Review of Systems System Result Effective Dates Constitutional No recent illness 08/28/2018 Constitutional No [...] lower legs/supportive shoes Full Exam - General 1995 Musculoskeletal gait and station Gait: asymmetric 06/07/2017 [...] strike 04/16/2015 None Full Exam - General 1995 Musculoskeletal gait and station Gait: abnormal stance [...] distress 11/05/2014 None Full Exam - General 1995 Eyes conjunctiva/eyelids Conjunctiva: erythema 11/05/2014 None Full [...] 4: G0439 12/27/2017 THER/PROPH/DIAG INJ SC/IM CPT-4: 80297 09/07/2017 TRIAMCINOLONE ACET INJ NOS CPT-4: J3301 09/07/2017 ROUTINE VENIPUNCTURE CPT- 4: 02459 05/23/2014 THER/PROPH/DIAG INJ SC/IM CPT-4: 54142 11/28/2013 VITAMIN B12 INJECTION CPT- 4: J3420 11/28/2013 Vital Signs Date Vital 08/28/2018 Blood Pressure 1: 144/72 Code: 8480-6 BMI: 36.8 Code: 94970-8 Heart Rate 1: 65 bpm Height: 6' SpO2: 97% Weight: 271 lbs 08/21/2018 Blood Pressure 1: 110/66 Code: 8480-6 BMI: 36.6 Code: 43667-6 Heart Rate 1: 70 bpm Height: 6' SpO2: 93% Weight: 270 lbs 06/27/2018 Blood Pressure 1: 124/70 Code: 8480-6 BMI: 36.6 Code: 39500-9 Heart Rate 1: 64 bpm Height: 6' SpO2: 96% Weight: 270 lbs 04/20/2018 Blood Pressure 1: 126/74 Code: 8480-6 BMI: 36.6 Code: 43883-1 Heart Rate 1: 60 bpm Height: 6' SpO2: 94% Weight: 270 lbs 03/21/2018 Blood Pressure 1: 138/74 Code: 8480-6 BMI: 36.8 Code: 19676-7 Heart Rate 1: 81 bpm Height: 6' SpO2: 98% Weight: 271 lbs 02/08/2018 Blood Pressure 1: 132/74 Code: 8480-6 BMI: 37.0 Code: 44141-5 Heart Rate 1: 82 bpm Height: 6' SpO2: 97% Weight: 273 lbs 12/27/2017 Blood Pressure 1: 148/78 Code: 8480-6 BMI: 36.3 Code: 89072-7 Heart Rate 1: 78 bpm Height: 6' SpO2: 93% Waist Measure (cm): 117 cm Weight: 268 lbs 12/06/2017 Blood Pressure 1: 122/70 Code: 8480-6 BMI: 36.6 Code: 24625-5 Heart Rate 1: 76 bpm Height: 6' SpO2: 93% Weight: 270 lbs 11/01/2017 BMI: 36.9 Code: 21285-1 Height: 6' Weight: 272 lbs 09/07/2017 Blood Pressure 1: 140/78 Code: 8480-6 BMI: 35.8 Code: 16366-6 Heart Rate 1: 76 bpm Height: 6' SpO2: 98% Weight: 264 lbs 06/07/2017 Blood Pressure 1: 138/86 Code: 8480-6 BMI: 36.3 Code: 79098-4 Heart Rate 1: 66 bpm Height: 6' SpO2: 95% Weight: 268 lbs 05/19/2017 Blood Pressure 1: 152/84 Code: 8480-6 BMI: 36.8 Code: 14949-3 Heart Rate 1: 70 bpm Height: 6' SpO2: 93% Weight: 271 lbs 05/09/2017 Blood Pressure 1: 138/76 Code: 8480-6 BMI: 36.6 Code: 92514-0 Heart Rate 1: 79 bpm Height: 6' SpO2: 93% Weight: 270 lbs 04/25/2017 Blood Pressure 1: 150/80 Code: 8480-6 Heart Rate 1: 58 bpm Height: SpO2: 94% Weight: 2017 Blood Pressure 1: 138/80 Code: 8480-6 BMI: 36.5 Code: 17890-1 Heart Rate 1: 76 bpm Height: 6' SpO2: 96% Weight: 269 lbs 03/29/2017 Blood Pressure 1: 118/68 Code: 8480-6 BMI: 36.9 Code: 22065-1 Heart Rate 1: 61 bpm Height: 6' SpO2: 95% Weight: 272 lbs 03/17/2017 Blood Pressure 1: 140/78 Code: 8480-6 BMI: 36.8 Code: 93395-8 Heart Rate 1: 91 bpm Height: 6' SpO2: 93% Weight: 271 lbs 03/08/2017 Blood Pressure 1: 152/84 Code: 8480-6 BMI: 36.8 Code: 03055-2 Heart Rate 1: 72 bpm Height: 6' SpO2: 92% Temperature: 36.6 (C) / 97.8 (F) Weight: 271 lbs 02/17/2017 Blood Pressure 1: 110/64 Code: 8480-6 BMI: 36.5 Code: 46321-7 Heart Rate 1: 62 bpm Height: 6' SpO2: 96% Weight: 269 lbs 01/18/2017 Blood Pressure 1: 140/80 Code: 8480-6 BMI: 36.5 Code: 70913-3 Heart Rate 1: 62 bpm Height: 6' SpO2: 94% Weight: 269 lbs 10/19/2016 Blood Pressure 1: 120/80 Code: 8480-6 BMI: 35.9 Code: 19820-3 Heart Rate 1: 64 bpm Height: 6' SpO2: 97% Weight: 265 lbs 08/17/2016 Blood Pressure 1: 112/76 Code: 8480-6 BMI: 36.1 Code: 15886-4 Heart Rate 1: 65 bpm Height: 6' SpO2: 97% Weight: 266 lbs 07/20/2016 Blood Pressure 1: 126/78 Code: 8480-6 BMI: 35.5 Code: 48226-3 Heart Rate 1: 60 bpm Height: 6' SpO2: 95% Weight: 262 lbs 04/19/2016 Blood Pressure 1: 132/78 Code: 8480-6 BMI: 35.1 Code: 51798-6 Heart Rate 1: 65 bpm Height: 6' SpO2: 98% Weight: 259 lbs 01/19/2016 Blood Pressure 1: 140/64 Code: 8480-6 BMI: 34.4 Code: 21922-5 Heart Rate 1: 61 bpm Height: 6' SpO2: 97% Weight: 254 lbs 10/16/2015 Blood Pressure 1: 108/66 Code: 8480-6 BMI: 35.3 Code: 72426-8 Heart Rate 1: 65 bpm Height: 6' SpO2: 96% Weight: 260 lbs 07/17/2015 Blood Pressure 1: 136/74 Code: 8480-6 BMI: 35.8 Code: 45099-7 Heart Rate 1: 59 bpm Height: 6' SpO2: 97% Weight: 263 lbs 13 oz 07/03/2015 Weight: 265 lbs 04/16/2015 Blood Pressure 1: 130/82 Code: 8480-6 BMI: 36.1 Code: 93051-9 Heart Rate 1: 7694 bpm Height: 6' SpO2: 94% Weight: 266 lbs 02/19/2015 Blood Pressure 1: 160/90 Code: 8480-6 BMI: 35.8 Code: 67812-4 Heart Rate 1: 78 bpm Height: 6' SpO2: 94% Weight: 264 lbs 11/20/2014 Blood Pressure 1: 140/96 Code: 8480-6 BMI: 34.6 Code: 89719-2 Heart Rate 1: 92 bpm Height: 6' SpO2: 95% Weight: 255 lbs 11/05/2014 Blood Pressure 1: 132/70 Code: 8480-6 BMI: 34.6 Code: 45422-6 Heart Rate 1: 96 bpm Height: 6' SpO2: 98% Weight: 255 lbs 09/19/2014 Blood Pressure 1: 152/86 Code: 8480-6 BMI: 35.8 Code: 45506-1 Heart Rate 1: 82 bpm Height: 6' SpO2: 95% Weight: 264 lbs 07/24/2014 Blood Pressure 1: 142/82 Code: 8480-6 BMI: 34.7 Code: 73023-8 Heart Rate 1: 72 bpm Height: 6' Weight: 256 lbs 05/23/2014 Blood Pressure 1: 150/82 Code: 8480-6 BMI: 33.4 Code: 51652-8 Heart Rate 1: 68 bpm Height: 6' Weight: 246 lbs 04/18/2014 Blood Pressure 1: 132/84 Code: 8480-6 BMI: 33.2 Code: 92166-7 Heart Rate 1: 80 bpm Height: 6' Weight: 245 lbs 02/21/2014 Blood Pressure 1: 138/82 Code: 8480-6 BMI: 32.4 Code: 86559-7 Heart Rate 1: 85 bpm Height: 6' SpO2: 98% Weight: 239 lbs 12/25/2013 Blood Pressure 1: 146/80 Code: 8480-6 BMI: 30.5 Code: 20968-0 Heart Rate 1: 100 bpm Height: 6' Weight: 225 lbs 11/28/2013 Blood Pressure 1: 120/64 Code: 8480-6 BMI: 30.4 Code: 46250-2 Heart Rate 1: 68 bpm Height: 6' Weight: 224 lbs 11/14/2013 Blood Pressure 1: 124/80 Code: 8480-6 BMI: 30.0 Code: 28140-4 Heart Rate 1: 76 bpm Height: 6' Weight: 221 lbs Functional Status No Functional Status data History of Present Illness Symptom Name Status Result Effective Date Notes Location-Major on the legs 08/28/2018 None Location-Major [...] better using Maxitrol and Polytrim seeing eye in [place]. Reports eye still feels irritated. headache Quality [...] Maxitrol and Polytrim seeing eye dr in [place]. Reports eye still feels irritated. headache Quality [...] data Encounters Encounter Performer Location Codes Date ([id number]) [id number] EST. PATIENT, LEVEL III Diagnosis: Rash and other nonspecific skin eruption[ICD10: R21] Diagnosis: Other pruritus[ICD10: L29.8] [facility] CPT-4: 47839 08/28/2018 ([id number]) 17269 EST. PATIENT, LEVEL IV Diagnosis: Essential (primary) hypertension[ICD10: I10] Diagnosis: Pain in right shoulder[ICD10: M25.511] Diagnosis: Muscle weakness (generalized)[ICD10: M62.81] [facility] CPT-4: 16068 08/21/2018 [id number] EST. PATIENT, LEVEL III Diagnosis: Tinea barbae and tinea capitis[ICD10: B35.0] [facility] CPT-4: 66716 06/27/2018 ([id number]) 74416 EST. 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 PATIENT, LEVEL III Diagnosis: Acute bronchitis due to other specified organisms[ICD10: J20.8] Antoinette Long MD, [facility] CPT-4: 75287 02/08/2018 ([id number]) 33525 EST. 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 PATIENT, LEVEL III Diagnosis: Essential (primary) hypertension[ICD10: I10] Diagnosis: Localized edema[ICD10: R60.0] Diagnosis: Cellulitis of left lower limb[ICD10: L03.116] Quyen Long MD [facility] CPT-4: 06524 06/07/2017 ([id number]) 20052 EST. 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 PATIENT, LEVEL II Diagnosis: Rash and other nonspecific skin eruption[ICD10: R21] Glory Long MD [facility] CPT-4: 20348 05/09/2017 ([id number]) 97651 EST. PATIENT, LEVEL II Diagnosis: Rash and other nonspecific skin eruption[ICD10: R21] Glory Long MD [facility] CPT-4: 84690 04/25/2017 ([id number]) 11029 EST. PATIENT, LEVEL III Diagnosis: Cellulitis of left lower limb[ICD10: L03.116] Diagnosis: Rash and other nonspecific skin eruption[ICD10: R21] Glory Long MD [facility] CPT-4: 65021 2017 ([id number]) 80682 EST. PATIENT, LEVEL III Diagnosis: Cellulitis of left lower limb[ICD10: L03.116] Diagnosis: Rash and other nonspecific skin eruption[ICD10: R21] Glory Long MD [facility] CPT-4: 15688 03/29/2017 [id number] EST. PATIENT, LEVEL IV Diagnosis: Cellulitis of left lower limb[ICD10: L03.116] Antoinette Long MD [facility] CPT-4: 29016 03/17/2017 ([id number]) 16264 EST. PATIENT, LEVEL III Diagnosis: Rash and other nonspecific skin eruption[ICD10: R21] Glory Long MD [facility] CPT-4: 16600 03/08/2017 [id number] EST. PATIENT, LEVEL IV Diagnosis: Essential (primary) hypertension[ICD10: I10] Diagnosis: Muscle weakness (generalized)[ICD10: M62.81] Diagnosis: Body mass index (BMI) 36.0-36.9, adult[ICD10: Z68.36] Diagnosis: Family history of ischemic heart disease and other diseases of the circulatory system[ICD10: Z82.49] Antoinette Long MD, [facility] CPT-4: 88951 02/17/2017 ([id number]) 32248 EST. PATIENT, LEVEL IV Diagnosis: Essential (primary) hypertension[ICD10: I10] Diagnosis: Muscle weakness (generalized)[ICD10: M62.81] Quyen Long MD, [facility] CPT-4: 81054 01/18/2017 ([id number]) 77821 EST. 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 PATIENT, LEVEL III Diagnosis: Pain in left shoulder[ICD10: M25.512] Diagnosis: Rash and other nonspecific skin eruption[ICD10: R21] Glory Long MD, [facility] CPT-4: 86183 08/17/2016 ([id number]) 71463 EST. PATIENT, LEVEL IV Diagnosis: Essential (primary) hypertension[ICD10: I10] Diagnosis: Pain in left shoulder[ICD10: M25.512] Quyen Long MD, [facility] CPT-4: 08166 07/20/2016 ([id number]) 00144 EST. 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 PATIENT, LEVEL IV Diagnosis: Essential (primary) hypertension[ICD10: I10] Diagnosis: Other abnormal glucose[ICD10: R73.09] Diagnosis: Gastro-esophageal reflux disease without esophagitis[ICD10: K21.9] Diagnosis: Obesity, unspecified[ICD10: E66.9] Quyen Long MD, [facility] CPT- 4: 15689 04/16/2015 ([id number]) 19962 EST. PATIENT, LEVEL IV Diagnosis: ESSENTIAL HYPERTENSION[ICD9: 401.9] Diagnosis: OBESITY[ICD9: 278.00] Diagnosis: Post-polio limb muscle weakness[ICD9: 728.87] Quyen Long MD [facility] CPT-4: 94485 02/19/2015 ([id number]) 90644 EST. PATIENT, LEVEL IV Diagnosis: Shingles outbreak[ICD9: 053.9] Diagnosis: ESSENTIAL HYPERTENSION[ICD9: 401.9] Diagnosis: Earache[ICD9: 388.70] Quyen Long MD, [facility] CPT-4: 22090 11/20/2014 ([id number]) 96184 EST. PATIENT, LEVEL III Diagnosis: Shingles outbreak[ICD9: 053.9] Diagnosis: Face pain[ICD9: 784.0] Diagnosis: Pain, eye, right[ICD9: 379.91] Quyen Long MD, [facility] CPT-4: 34006 11/05/2014 ([id number]) 90397 EST. PATIENT, LEVEL V Diagnosis: Post-polio limb muscle weakness[ICD9: 728.87] Diagnosis: Post-polio syndrome[ICD9: 138] Diagnosis: Leg weakness[ICD9: 729.89] Diagnosis: Weakness[ICD9: 780.79] Diagnosis: Foot drop[ICD9: 736.79] Quyen Long MD, [facility] CPT-4: 82531 09/19/2014 ([id number]) 79131 EST. PATIENT, LEVEL IV Diagnosis: ESSENTIAL HYPERTENSION[ICD9: 401.9] Diagnosis: Carotid bruit[ICD9: 785.9] Diagnosis: Seborrheic dermatitis[ICD9: 690.10] Diagnosis: Post-polio syndrome[ICD9: 138] Diagnosis: Vitamin D deficiency[ICD9: 268.9] Quyen Long MD, [facility] CPT- 4: 96423 07/24/2014 ([id number]) 69848 EST. PATIENT, LEVEL IV Diagnosis: Neck pain[ICD9: 723.1] Diagnosis: Post-polio syndrome[ICD9: 138] Diagnosis: Vitamin D deficiency[ICD9: 268.9] Diagnosis: Vitamin B12 deficiency[ICD9: 266.2] Diagnosis: Nocturia[ICD9: 788.43] Diagnosis: Leg weakness[ICD9: 729.89] Diagnosis: Elevated blood sugar[ICD9: 790.29] Glory Long MD, [facility] CPT- 4: 91979 05/23/2014 ([id number]) 69664 EST. PATIENT, LEVEL IV Diagnosis: ESSENTIAL HYPERTENSION[ICD9: 401.9] Diagnosis: HEADACHE[ICD9: 784.0] Diagnosis: EDEMA[ICD9: 782.3] Quyen Long MD, [facility] CPT-4: 26692 04/18/2014 70112 EST. PATIENT, LEVEL IV Diagnosis: Insomnia[ICD9: 780.52] Diagnosis: Post-polio syndrome[ICD9: 138] Diagnosis: Vitamin D deficiency[ICD9: 268.9] Diagnosis: Nocturnal hypoxemia[ICD9: 799.02] Glory Long MD, [facility] CPT- 4: 97501 02/21/2014 ([id number]) 77983 EST. PATIENT, LEVEL III Diagnosis: Tinea pedis[ICD9: 110.4] Diagnosis: Post-polio limb muscle weakness[ICD9: 728.87] Glory Long MD, [facility] CPT-4: 37210 12/25/2013 ([id number]) 02364 EST. PATIENT, LEVEL IV Diagnosis: Insomnia[ICD9: 780.52] Diagnosis: Vitamin B12 deficiency (dietary) anemia[ICD9: 281.1] Diagnosis: VITAMIN D DEFICIENCY[ICD9: 268.9] Diagnosis: Weakness[ICD9: 780.79] Quyen Long MD, [facility] CPT-4: 72669 11/28/2013 ([id number]) OFFICE/OUTPATIENT VISIT NEW Diagnosis: Post-polio limb muscle weakness[ICD9: 728.87] Diagnosis: Post-polio syndrome[ICD9: 138] Diagnosis: Insomnia[ICD9: 780.52] Diagnosis: Arrhythmia[ICD9: 427.9] Quyen Long MD, [facility] CPT-4: 19203 11/14/2013 Plan of Care Planned Activity Notes Codes Status Date Visit Plan: Rash-culture today in the office -kenalog injection for acute symptoms -start prednisone tomorrow- treat with abx if indicated on culture- follow up in 1 week, sooner if needed 08/28/2018 Appointment: Glory Dalton WPtel: [address] [place], [place] [phone] (30 min) Complex 08/28/2018 Patient Education: Patient Medication Summary Completed 08/28/2018 Appointment: Quyen Long WPtel: [address] [place], [place] [phone] (15 min) Moderate 08/24/2018 Visit Plan: Hypertension [...] Post-Polio syndrome. 08/21/2018 Appointment: Quyen Long WPtel: [facility] (15 min) Moderate 08/21/2018 Patient Education: Patient Medication Summary Completed 08/21/2018 Patient Education: Hypertension Completed 08/21/2018 Visit Plan: Tinea barbae -rx for ketoconazole written and instructed patient on use -instructed patient to call or return to clinic if symptoms do not resolve or if any worse. Patient verbalized understanding of plan. 06/27/2018 Appointment: Glory Dalton WPtel: [facility]6 [phone] [place] (30 min) Complex 06/27/2018 Patient Education: [...] his shoulder. 04/20/2018 Appointment: Quyen Long WPtel: [facility] [place] (15 min) Moderate 04/20/2018 Patient Education: Patient Medication Summary Completed 04/20/2018 Patient Education: Hypertension Completed 04/20/2018 Appointment: Quyen Long WPtel: [facility] [place] (15 min) Moderate 04/11/2018 Visit Plan: Post polio syndrome -right leg weakness -patient needs repair and adjustment of his right leg brace that helps with his symptoms of instability and weakness and allows him to ambulate -will send rx to [facility] 03/21/2018 Appointment: Glory Dalton WPtel: [phone] [phone] (15 min) Moderate 03/21/2018 Patient Education: Patient [...] acutely worsen. 02/08/2018 Appointment: Antoinette Arndt WPtel: [phone] [facility] (30 min) Complex 02/08/2018 Patient Education: Patient [...] Completed 12/27/2017 Appointment: Quyen Long WPtel: [phone] [facility] (15 min) Moderate 12/08/2017 Visit Plan: [...] shoulder injection. 12/06/2017 Appointment: Quyen Long WPtel: [address] [place], [place] [phone] (15 min) Moderate 12/06/2017 Patient Education: Patient [...] weight check. 09/07/2017 Appointment: Quyen Long WPtel: [facility] (15 min) Moderate 09/07/2017 Patient Education: Patient [...] lower leg. 06/07/2017 Appointment: Quyen Long WPtel: [facility] (15 min) Moderate 06/07/2017 Patient Education: Patient [...] recommended. 05/19/2017 Appointment: Quyen Long WPtel: [phone] [facility] (15 min) Moderate 05/19/2017 Patient Education: Patient Medication Summary Completed 05/19/2017 Patient Education: Obesity Completed 05/19/2017 Patient Education: Hypertension Completed 05/19/2017 Visit Plan: Rash-left qpti-ijyusbja-hlmszofnty patient to continue using ketoconazole plus betamethasone equal parts and increase to TID-leave foot open to air as much as possible-follow up in 2 weeks, sooner if needed. 05/09/2017 Appointment: Glory Dalton WPtel: [address] [place], [place] [phone] (30 min) Complex 05/09/2017 Patient Education: Patient Medication Summary Completed 05/09/2017 Patient Education: Obesity Completed 05/09/2017 Visit Plan: Rash-left foot-Dr Long in to evaluate rash-instructed patient to start using ketoconazole plus betamethasone equal parts TID -follow up in 2 weeks, sooner if needed. 04/25/2017 Appointment: Glory Dalton WPtel: [address] [place], [place] [phone] (30 min) Complex 04/25/2017 Patient Education: Patient Medication Summary Completed 04/25/2017 Visit Plan: Cellulitis of left foot-no longer draining-no open areas-no excoriation-slightly red-okay to d/c all treatments-keep clean and monitor-call if redness does not resolve Rash-resolved 2017 Appointment: Glroy Dalton WPtel: [address] [place], [place] [phone] (30 min) Complex 2017 Patient Education: Patient Medication Summary Completed 2017 Patient Education: Obesity Completed 2017 Visit Plan: Cellulitis-left foot-MSSA dvgukxij-ndviqeovq-kypgw air in the evening-continue bactroban ointment twice daily-stop using alcohol on foot-no papertowels or abrasives to foot Jicb-qzjc-mk for betamethasone provided and instructed on use 03/29/2017 Appointment: Glory Dalton WPtel: [address] [place], [place] [phone] (30 min) Complex 03/29/2017 Patient Education: Patient Medication Summary Completed 03/29/2017 Patient Education: Obesity Completed 03/29/2017 Appointment: Glory Dalton WPtel: [address] [place], [place] [phone] (30 min) Complex 03/22/2017 Visit Plan: Cellulitis [...] discharge. 03/17/2017 [phone] ([facility] min) Complex 03/17/2017 Patient [...] the break. 01/18/2017 Appointment: Quyen Long WPtel: [phone] [facility] (15 min) Moderate 01/18/2017 Patient [...] and weakness. 10/19/2016 Appointment: Quyen Long WPtel: [facility] (15 min) Moderate 10/19/2016 Patient Education: Patient Medication Summary Completed 10/19/2016 Patient Education: Obesity Completed 10/19/2016 Visit Plan: Left shoulder pain-hospital f/u recent shoulder surgery with Dr Wilson-doing well-sees Dr Wilson this afternoon for suture removal-pain improved Zpyk-nswk-lqzwxwg fungal infection-will treat with ket oconazole -follow up in 2 weeks 08/17/2016 Appointment: Glory Dalton WPtel: [phone] (30 min) Complex 08/17/2016 Patient Education: Patient [...] strengthening. 04/19/2016 Appointment: Quyen Long WPtel: [phone] [facility] [...] appointment. 01/19/2016 App[facility]ment[phone] [id number] (15 min) Moderate 01/19/2016 Patient Education: Patient Medication Summary Completed 01/19/2016 Patient Education: Obesity Completed 01/19/2016 Patient Education: Hypertension Completed 01/19/2016 Referral: Dr Mccauley Referral Completed 11/11/2015 Care Plan: Referral Order SNOMED-CT : [id number] Pending 11/03/2015 Visit Plan: Hypertension - well [...] with injection 10/16/2015 Appointment: Quyen Long WPtel: [phone] [facility] [...] drops. 11/20/2014 Appointment: [phone] [id number] Follow up 11/20/2014 [...] doctor ESME. 11/05/2014 Appointment: Quyen Long WPtel: [id number] (15 min) Moderate [...] to participate in activities outside of the group home. He has a family that would [...] and foot. 09/19/2014 Appointment: Quyen Long WPtel: [address] [place], [place] [id number] [place] Follow up 09/19/2014 Patient Education: Patient [...] deficiency - recommended repeat of vitamin d [id number] weekly x 12 weeks and increase vitamin d to 5000 units daily. 07/24/2014 Appointment: Quyen Long WPtel: [address] [place], [place] [id number] [place] Follow up 07/24/2014 Patient Education: Patient [...] B12 level 05/23/2014 Appointment: Glory Dalton WPtel: [address] [place], [place] [id number] [place] Follow up 05/23/2014 Patient Education: Patient Medication Summary Completed 05/23/2014 Patient Education: .Cervicalgia Neck Pain Completed 05/23/2014 Appointment: Quyen Long WPtel: [address] [place], [place] [id number] [place] Follow up 05/22/2014 Visit Plan: Edema [...] home. 04/18/2014 Appointment: [facility] [phone] [id number] Follow up 04/18/2014 Patient Education: Patient Medication Summary Completed 04/18/2014 Patient Education: Hypertension Completed 04/18/2014 Appointment: Quyen Long WPtel: [id number] Follow up 02/27/2014 Visit Plan: Insomnia - Pt has been advised to increase the light in the house during the day, and start dimming the lights during the evening hours. Pt has been advised to cut out caffeine after 5pm. Daytime napping worsens night time insomnia. START TRAZODONE AND MONITOR SYMPTOMS. Vitamin D yhmklwzbbi-onrndymi-vksursig vitamin D 50,000 units weekly for 12 additional weeks. Hypoxemia-continue night time oxygen 02/21/2014 App[facility]ment[id number] Follow up 02/21/2014 Patient Education: Patient Medication [...] on mobic. 11/28/2013 Appointment: Quyen Long WPtel: [address] [place], [place] [id number] Follow up 11/28/2013 Patient Education: Patient Medication [...] oxygen study. 11/14/2013 Appointment: Quyen Long WPtel: [id number] New Patient 11/14/2013 Patient Education: Patient Medication Summary Completed 11/14/2013 Referral: Dr Mccauley Referral Appointment Requested Instructions Comment . Rash-left olfl-elsjigjk-idbjoakvhi patient to continue using ketoconazole plus betamethasone [...] antibiotics and dressings to lower leg. . Hypertension - well controlled - continue [...] START TRAZODONE AND MONITOR SYMPTOMS. Vitamin D ysfnvbvsye-mxmfdirg-hjzvvkkr vitamin D 50,000 units weekly for 12 [...] up in 10 days . Cellulitis-left foot-MSSA irkbaxho-lfxrwuufk-ymnbu air in the evening-continue bactroban ointment twice daily-stop using alcohol on foot-no papertowels or abrasives to foot Qbgl-gapb-ln for betamethasone provided and instructed on use [...] verbalize understanding of plan. . Hypertension - well [...] therapy at the wellness center - . Cellulitis - left foot - The [...] increase activity at the wellness center. . Tinea barbae -rx for ketoconazole written and instructed patient on use -instructed patient to call or return to clinic if symptoms do not resolve or if any worse. Patient verbalized understanding of plan. prevnar 13 if hasn't had one . [...] deficiency - recommended repeat of vitamin d [id number] weekly x 12 weeks and increase vitamin [...] [place] this afternoon for suture removal-pain improved Wwkz-eaxu-ltxilxy fungal infection-will treat with ketoconazole -follow up [...] to participate in activities outside of the group home. He has a family that would [...] - he will need to see Dr. Wlison for an injection. Muscle weakness - generalized [...] him to ambulate -will send rx to [facility]
--- OUTSIDE RECORDS SUMMARY | 2018-11-10 15:43 | XMS REPORT | CCD ---
Author Author Quyen Long Organization Quyen Logn MD, [facility] Address [address] [place] [address] Phone Care Team Providers Care Appraisal Manager Name Role Phone PP Unavailable CCM Unavailable Summary Purpose Interface Exchange Insurance Providers Payer name Policy type / Coverage type Covered alliance party ID Effective Begin Date Effective End Date WPS Medicare Part B Medicare Part B [id number] 2017 Unknown [facility] Medicare Part B [id number] 2017 Unknown Family history Grandmother Diagnosis Age [...] Description Effective Dates Tobacco history SNOMED CT: 9847879 Former smoker 1.5 pack daily x 45 years 12/27/2017 Marital status Unknown 10/19/2016 Living arrangements Unknown Assisted Living [facility] 04/19/2016 Number of children Unknown 1 son - lives in [place] 11/14/2013 Employment Unknown 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 11/14/[address]: [id number] Never drinks alcohol 11/14/2013 Has the patient [...] Kenalog 40 mg/mL suspension for injection RxNorm: 3059627 Milliliter(s) Inj 08/28/2018 08/28/2018 Inactive ranitidine 150 mg tablet RxNorm: 645425 1 Tablet(s) PO daily 08/21/2018 No Stop Date Active ketoconazole 2 % topical cream RxNorm: 681401 1 Application TOP BID to left ear and left arm, right arm, left - a total of 1 gram bid 08/21/2018 12/18/2018 Active ketoconazole 2 % shampoo RxNorm: 338999 APPLY TO AFFECTED AREA(S) TWICE WEEKLY UNTIL RESOLVED 08/14/2018 09/10/2018 Active cetirizine 10 mg tablet RxNorm: 2188847 TAKE ONE TABLET BY MOUTH EVERY NIGHT AT BEDTIME 08/07/2018 03/04/2019 Active trazodone 50 mg tablet RxNorm: 016646 TAKE ONE TABLET BY MOUTH AT BEDTIME 07/18/2018 11/14/2018 Active ketoconazole 2 % shampoo RxNorm: 573483 1 TOP BIW 06/27/2018 08/13/2018 Inactive Vitamin B-12 1,000 mcg/mL injection solution RxNorm: 052465 INJECT 1ML MONTHLY 06/19/2018 11/15/2018 Active Request already responded to by other means (e.g. phone or fax) Vitamin B-12 1,000 mcg/mL injection solution RxNorm: 026360 Milliliter(s) INJECT 1ML MONTHLY 06/15/2018 06/18/2018 Inactive Zithromax Z-Brian 250 mg tablet RxNorm: 714876 1 Tablet(s) PO UD 06/14/2018 08/20/2018 Inactive zpack as directed x1 tamsulosin 0.4 mg capsule RxNorm: 230857 TAKE ONE CAPSULE BY MOUTH EVERY EVENING 06/12/2018 01/07/2019 Active gabapentin 300 mg capsule RxNorm: 721632 TAKE ONE CAPSULE BY MOUTH TWICE A DAY 05/31/2018 09/27/2018 Active losartan 50 mg tablet RxNorm: 636766 TAKE ONE TABLET BY MOUTH DAILY 05/01/2018 09/27/2018 Active Toprol XL 50 mg tablet,extended release RxNorm: 069143 1 Tablet(s) PO daily 04/20/2018 No Stop Date Active Vitamin D3 5,000 unit tablet RxNorm: 825968 TAKE ONE TABLET BY MOUTH DAILY 04/05/2018 02/28/2019 Active trazodone 50 mg tablet RxNorm: 875079 TAKE ONE TABLET BY MOUTH AT BEDTIME 02/27/2018 07/17/2018 Inactive hydrochlorothiazide 25 mg tablet RxNorm: 292753 TAKE ONE TABLET BY MOUTH DAILY 02/13/2018 11/09/2018 Active ranitidine 150 mg tablet RxNorm: 503784 1 Tablet(s) PO BID 02/13/2018 08/20/2018 Inactive albuterol sulfate 2.5 mg/3 mL (0.083 %) solution for nebulization RxNorm: 841893 3 Milliliter(s) INH UD 02/08/2018 No Stop Date Active please deliver all of his prescriptions thank you cefdinir 300 mg capsule RxNorm: 688445 1 Capsule(s) PO BID 02/08/2018 02/17/2018 Inactive prednisone 20 mg tablet RxNorm: 665604 2 Tablet(s) PO daily 02/08/2018 02/12/2018 Inactive fluticasone 50 mcg/actuation nasal spray,suspension RxNorm: 4274636 1 [place] NASAL BID 02/07/2018 06/06/2018 Inactive fluticasone 50 mcg/actuation nasal spray,suspension RxNorm: 4922308 1 [place] NASAL BID 02/07/2018 02/06/2018 Inactive Zithromax Z-Brian 250 mg tablet RxNorm: 253029 1 Tablet(s) PO UD 02/07/2018 03/14/2018 Inactive zdavinck as directed tamsulosin 0.4 mg capsule RxNorm: 158097 TAKE ONE CAPSULE BY MOUTH EVERY EVENING 01/13/2018 06/11/2018 Inactive Vitamin D3 5,000 unit tablet RxNorm: 748972 TAKE ONE TABLET BY MOUTH DAILY 01/02/2018 04/04/2018 Inactive cetirizine 10 mg tablet RxNorm: 7353717 TAKE ONE TABLET BY MOUTH EVERY NIGHT AT BEDTIME 01/02/2018 04/01/2018 Inactive cetirizine 10 mg tablet RxNorm: 6513724 1 Tablet(s) PO QHS 12/26/2017 01/01/2018 Inactive cetirizine 10 mg tablet RxNorm: 2792100 1 Tablet(s) PO QHS 12/26/2017 12/25/2017 Inactive losartan 50 mg tablet RxNorm: 486801 TAKE ONE TABLET BY MOUTH DAILY (STARTING 09-09-2017) 09/29/2017 03/27/2018 Inactive Request already responded to by other means (e.g. phone or fax) losartan 50 mg tablet RxNorm: 686911 1 Tablet(s) PO daily 09/27/2017 09/26/2017 Inactive losartan 50 mg tablet RxNorm: 399275 1 Tablet(s) PO daily 09/27/2017 09/28/2017 Inactive Bactrim DS 800 mg-160 mg tablet RxNorm: 100288 1 Tablet(s) PO BID 09/13/2017 09/19/2017 Inactive Kenalog 40 mg/mL suspension for injection RxNorm: 9237832 1 Milliliter(s) Inj 09/07/2017 09/07/2017 Inactive trazodone 50 mg tablet RxNorm: 582129 TAKE ONE TABLET BY MOUTH AT BEDTIME 08/16/2017 02/11/2018 Inactive gabapentin 300 mg capsule RxNorm: 150000 1 Capsule(s) PO BID 08/03/2017 01/29/2018 Inactive Vitamin D3 5,000 unit tablet RxNorm: 737803 TAKE ONE TABLET BY MOUTH DAILY 08/01/2017 12/28/2017 Inactive ketoconazole 2 % topical cream RxNorm: 755814 APPLY TO AFFECTED AREA(S) TWO TIMES A DAY 05/31/2017 06/29/2017 Inactive hydrochlorothiazide 25 mg tablet RxNorm: 230188 TAKE ONE TABLET BY MOUTH DAILY 05/16/2017 02/09/2018 Inactive lisinopril 20 mg tablet RxNorm: 400259 TAKE ONE TABLET BY MOUTH DAILY 05/16/2017 09/06/2017 Inactive ketoconazole 2 % topical cream RxNorm: 633741 1 Application TOP BID 03/29/2017 04/11/2017 Inactive apply to [facility]ice-deliver to [facility] please betamethasone dipropionate 0.05 % topical ointment RxNorm: 220603 1 Application TOP BID 03/29/2017 04/11/2017 Inactive apply to arm/chests for itching gabapentin 300 mg capsule RxNorm: 473851 1 Capsule(s) PO BID 03/29/2017 08/02/2017 Inactive trazodone 50 mg tablet RxNorm: 574596 TAKE ONE TABLET BY MOUTH AT BEDTIME 03/28/2017 08/15/2017 Inactive Vesicare 10 mg tablet RxNorm: 508192 TAKE ONE TABLET BY MOUTH EVERY NIGHT AT BEDTIME 03/21/2017 12/26/2017 Inactive Vesicare 10 mg tablet RxNorm: 857989 TAKE ONE TABLET BY MOUTH EVERY NIGHT AT BEDTIME 03/21/2017 06/06/2017 Inactive doxycycline hyclate 100 mg capsule RxNorm: 5401017 1 Capsule(s) PO BID 03/18/2017 03/27/2017 Inactive mupirocin 2 % topical ointment RxNorm: 364390 1 Application TOP BID 03/17/2017 08/27/2018 Inactive doxycycline hyclate 100 mg tablet RxNorm: 979666 1 Tablet(s) PO BID 03/09/2017 03/15/2017 Inactive Take probiotic BID while on ABT doxycycline hyclate 100 mg tablet RxNorm: 441372 1 Tablet(s) PO BID 03/09/2017 03/08/2017 Inactive Take probiotic BID while on ABT meloxicam 15 mg tablet RxNorm: 739219 TAKE ONE TABLET BY MOUTH DAILY 02/10/2017 12/06/2017 Inactive Vitamin D3 5,000 unit tablet RxNorm: 004818 TAKE ONE TABLET BY MOUTH DAILY 02/08/2017 07/31/2017 Inactive Vitamin B-12 1,000 mcg/mL injection solution RxNorm: 611164 INJECT 1ML MONTHLY 01/24/2017 07/22/2017 Inactive lisinopril 20 mg tablet RxNorm: 339145 TAKE ONE TABLET BY MOUTH DAILY 12/13/2016 04/11/2017 Inactive trazodone 50 mg tablet RxNorm: 677268 TAKE ONE TABLET BY MOUTH AT BEDTIME 09/24/2016 03/22/2017 Inactive Vitamin D3 5,000 unit tablet RxNorm: 523892 TAKE ONE TABLET BY MOUTH DAILY 09/20/2016 02/07/2017 Inactive lisinopril 20 mg tablet RxNorm: 380985 TAKE ONE TABLET BY MOUTH DAILY 09/13/2016 12/12/2016 Inactive ketoconazole 2 % topical cream RxNorm: 514634 1 Application TOP BID 08/17/2016 08/30/2016 Inactive deliver to [facility] please Pepcid 20 mg tablet RxNorm: 866556 TAKE ONE TABLET BY MOUTH TWICE A DAY 07/12/2016 12/26/2017 Inactive omega-3 acid ethyl esters 1 gram capsule RxNorm: 214541 3 Capsule(s) PO daily 06/18/2016 12/14/2016 Inactive omega-3 acid ethyl esters 1 gram capsule RxNorm: 397648 3 Capsule(s) PO daily 06/18/2016 06/17/2016 Inactive trazodone 50 mg tablet RxNorm: 434366 TAKE ONE TABLET BY MOUTH AT BEDTIME 06/08/2016 08/06/2016 Inactive tamsulosin 0.4 mg capsule RxNorm: 693999 Capsule(s) TAKE ONE CAPSULE BY MOUTH EVERY EVENING 06/04/2016 12/30/2016 Inactive hydrochlorothiazide 25 mg tablet RxNorm: 911777 TAKE ONE TABLET BY MOUTH DAILY 05/10/2016 05/09/2016 Inactive hydrochlorothiazide 25 mg tablet RxNorm: 699261 TAKE ONE TABLET BY MOUTH DAILY 05/10/2016 02/12/2018 Inactive Pepcid 20 mg tablet RxNorm: 434679 1 Tablet(s) PO BID 03/18/2016 03/17/2016 Inactive Pepcid 20 mg tablet RxNorm: 792383 1 Tablet(s) PO BID 03/18/2016 07/11/2016 Inactive lisinopril 20 mg tablet RxNorm: 237850 TAKE ONE TABLET BY MOUTH DAILY 03/18/2016 08/14/2016 Inactive Vitamin D3 5,000 unit tablet RxNorm: 084442 Tablet(s) TAKE ONE TABLET BY MOUTH DAILY 03/18/2016 09/13/2016 Inactive trazodone 50 mg tablet RxNorm: 614674 TAKE ONE TABLET BY MOUTH AT BEDTIME 03/15/2016 06/07/2016 Inactive Vesicare 10 mg tablet RxNorm: 258390 1 Tablet(s) PO QHS 03/15/2016 02/07/2017 Inactive meloxicam 15 mg tablet RxNorm: 769092 TAKE ONE TABLET BY MOUTH DAILY 03/01/2016 01/24/2017 Inactive Bactrim DS 800 mg-160 mg tablet RxNorm: 163393 1 Tablet(s) PO BID 02/10/2016 02/09/2016 Inactive Bactrim DS 800 mg-160 mg tablet RxNorm: 743329 1 Tablet(s) PO BID 02/10/2016 02/16/2016 Inactive Cipro 500 mg tablet RxNorm: 600374 1 Tablet(s) PO BID 02/06/2016 02/09/2016 Inactive Cipro 500 mg tablet RxNorm: 036179 1 Tablet(s) PO BID 02/06/2016 02/05/2016 Inactive Pennsaid 20 mg/gram/actuation (2 %) topical soln in metered- dose pump RxNorm: 1204129 2 pumps TOP BID 01/19/2016 04/19/2016 Inactive tamsulosin 0.4 mg capsule RxNorm: 991893 TAKE ONE CAPSULE BY MOUTH EVERY EVENING 01/12/2016 06/03/2016 Inactive cyanocobalamin (vit B-12) 1,000 mcg/mL injection solution RxNorm: 214204 INJECT 1 ML INTRAMUSCULARLY MONTHLY 01/01/2016 10/26/2016 Inactive Request already responded to by other means (e.g. phone or fax) Vitamin B-12 1,000 mcg/mL injection solution RxNorm: 001039 1 Milliliter(s) Inj monthly 12/24/2015 04/19/2016 Inactive please give syringes for injections Vitamin D3 5,000 unit tablet RxNorm: 973955 TAKE ONE TABLET BY MOUTH DAILY 12/08/2015 03/06/2016 Inactive pantoprazole 40 mg tablet,delayed release RxNorm: 949730 TAKE ONE TABLET BY MOUTH DAILY 12/08/2015 03/17/2016 Inactive trazodone 50 mg tablet RxNorm: 525951 TAKE ONE TABLET BY MOUTH AT BEDTIME 11/10/2015 03/08/2016 Inactive lisinopril 20 mg tablet RxNorm: 742274 TAKE ONE TABLET BY MOUTH DAILY 09/08/2015 03/05/2016 Inactive Vitamin D3 5,000 unit tablet RxNorm: 699232 1 Tablet(s) PO daily 08/12/2015 12/07/2015 Inactive pantoprazole 40 mg tablet,delayed release RxNorm: 503222 1 Tablet(s) PO daily 08/12/2015 12/07/2015 Inactive tamsulosin 0.4 mg capsule RxNorm: 528531 TAKE ONE CAPSULE BY MOUTH EVERY EVENING 07/21/2015 12/17/2015 Inactive trazodone 50 mg tablet RxNorm: 546204 TAKE ONE TABLET BY MOUTH AT BEDTIME 05/09/2015 10/05/2015 Inactive hydrochlorothiazide 25 mg tablet RxNorm: 225596 1 Tablet(s) PO QAM 04/30/2015 04/29/2015 Inactive hydrochlorothiazide 25 mg tablet RxNorm: 363324 TAKE ONE TABLET BY MOUTH DAILY 04/30/2015 02/12/2018 Inactive pantoprazole 40 mg tablet,delayed release RxNorm: 259069 1 Tablet(s) PO daily 04/16/2015 08/11/2015 Inactive meloxicam 15 mg tablet RxNorm: 712717 TAKE ONE TABLET BY MOUTH DAILY 03/03/2015 02/25/2016 Inactive lisinopril 20 mg tablet RxNorm: 730794 1 Tablet(s) PO daily 02/19/2015 09/07/2015 Inactive tamsulosin 0.4 mg capsule RxNorm: 862728 TAKE ONE CAPSULE BY MOUTH EVERY EVENING 01/20/2015 07/18/2015 Inactive cyanocobalamin (vit B-12) 1,000 mcg/mL injection solution RxNorm: 320101 Milliliter(s) INJECT 1ML INTRAMUSCULARLY MONTHLY 12/12/2014 12/22/2014 Inactive trazodone 50 mg tablet RxNorm: 643312 TAKE ONE TABLET BY MOUTH AT BEDTIME 11/14/2014 05/08/2015 Inactive erythromycin 5 mg/gram (0.5 %) eye ointment RxNorm: 711742 1/2 inch OPH QID 11/05/2014 11/14/2014 Inactive acyclovir 800 mg tablet RxNorm: 487922 1 Tablet(s) PO TID 11/05/2014 11/18/2014 Inactive Zofran 4 mg tablet RxNorm: 296746 1 Tablet(s) PO Q4H as needed nausea 11/05/2014 01/03/2015 Inactive Duragesic 12 mcg/hr transdermal patch RxNorm: 798429 1 Patch TD Q72H 11/05/2014 02/04/2015 Inactive Imitrex 100 mg tablet RxNorm: 455588 1 Tablet(s) PO q 12 hours 11/04/2014 04/15/2015 Inactive naproxen 500 mg tablet RxNorm: 821462 1 Tablet(s) PO BID 10/30/2014 11/01/2014 Inactive meloxicam 15 mg tablet RxNorm: 079956 TAKE ONE TABLET BY MOUTH DAILY 10/04/2014 03/02/2015 Inactive Vesicare 5 mg tablet RxNorm: 627707 TAKE ONE TABLET BY MOUTH AT BEDTIME 09/16/2014 07/16/2015 Inactive Vitamin D2 50,000 unit capsule RxNorm: 021814 1 Capsule(s) PO QW 09/06/2014 07/16/2015 Inactive once weekly x 12 weeks tamsulosin ER 0.4 mg capsule,extended release 24 hr RxNorm: 669680 TAKE ONE CAPSULE BY MOUTH EVERY EVENING 06/24/2014 12/20/2014 Inactive tamsulosin ER 0.4 mg capsule,extended release 24 hr RxNorm: 850554 1 Capsule(s) PO QPM 06/24/2014 01/19/2015 Inactive Vitamin D2 50,000 unit capsule RxNorm: 545178 1 Capsule(s) PO QW 05/27/2014 09/05/2014 Inactive once weekly x 12 weeks Vesicare 5 mg tablet RxNorm: 340086 1 Tablet(s) PO QHS 05/23/2014 05/22/2014 Inactive Vesicare 5 mg tablet RxNorm: 558794 1 Tablet(s) PO QHS 05/23/2014 09/15/2014 Inactive trazodone 50 mg tablet RxNorm: 515619 TAKE ONE TABLET BY MOUTH AT BEDTIME 05/13/2014 11/08/2014 Inactive trazodone 50 mg tablet RxNorm: 598871 TAKE ONE TABLET BY MOUTH AT BEDTIME 05/13/2014 11/08/2014 Inactive hydrochlorothiazide 25 mg tablet RxNorm: 991090 1 Tablet(s) PO [facility] 04/18/2014 01/12/2015 Inactive Vitamin D2 50,000 unit capsule RxNorm: 937561 TAKE ONE CAPSULE BY MOUTH ONCE WEEKLY FOR 12 WEEKS 04/09/2014 05/14/2014 Inactive trazodone 50 mg tablet RxNorm: 262609 1 Tablet(s) PO QHS 02/22/2014 05/12/2014 Inactive trazodone 50 mg tablet RxNorm: 751714 1 Tablet(s) PO QHS 02/22/2014 02/21/2014 Inactive Vitamin D2 50,000 unit capsule RxNorm: 810510 TAKE ONE CAPSULE BY MOUTH ONCE WEEKLY FOR 12 WEEKS 02/07/2014 03/06/2014 Inactive meloxicam 15 mg tablet RxNorm: 280849 TAKE ONE TABLET BY MOUTH ONCE A DAY 02/07/2014 08/05/2014 Inactive meloxicam 15 mg tablet RxNorm: 343552 TAKE ONE TABLET BY MOUTH ONCE A DAY 02/07/2014 2014 Inactive clotrimazole 1 % topical cream RxNorm: 269483 1 Application TOP BID 12/25/2013 07/16/2015 Inactive Diflucan 150 mg tablet RxNorm: 242312 1 Tablet(s) PO daily 12/25/2013 12/31/2013 Inactive tamsulosin ER 0.4 mg capsule,extended release 24 hr RxNorm: 217121 1 Capsule(s) PO QPM 11/28/2013 06/23/2014 Inactive cyanocobalamin (vit B-12) 1,000 mcg/mL injection solution RxNorm: 640429 1 Milliliter(s) Inj 11/28/2013 12/12/2014 Inactive Vitamin B-12 1,000 mcg/mL injection solution RxNorm: 527310 1 Milliliter(s) Inj monthly 11/21/2013 02/13/2015 Inactive please give syringes for injections Vitamin D2 50,000 unit capsule RxNorm: 970332 1 Capsule(s) PO QW x 12 weeks 11/21/2013 02/06/2014 Inactive [SAVINGS FOR UNINSURED PATIENTS -- to take addtional 2000 units daily Vitamin B-12 1,000 mcg/mL injection solution RxNorm: 955880 1 Milliliter(s) Inj monthly 11/21/2013 11/20/2013 Inactive meloxicam 15 mg tablet RxNorm: 098166 1 Tablet(s) PO daily 11/20/2013 11/19/2013 Inactive [SAVINGS FOR UNINSURED PATIENTS -- BIN:708189, PCN: ASPROD1, Group: [id number], ID# [id number], Process claim through [employer], for questions: . THIS IS NOT INSURANCE.] meloxicam 15 mg tablet RxNorm: 780735 1 Tablet(s) PO daily 11/20/2013 02/06/2014 Inactive [SAVINGS FOR UNINSURED PATIENTS -- BIN:425106, PCN: ASPROD1, Group: [id number], ID# [id number], Process claim through [employer], for questions: . THIS IS NOT INSURANCE.] meloxicam 15 mg tablet RxNorm: 425373 1 Tablet(s) PO daily 11/20/2013 11/19/2013 Inactive Voltaren 1 % topical gel RxNorm: 560054 4 Application TOP QID apply to back, affected joints four times daily 11/14/2013 11/20/2013 Inactive Iron (ferrous sulfate) 325 mg (65 mg iron) tablet RxNorm: 103834 1 Tablet(s) PO daily No Start Date Active trazodone 50 mg tablet RxNorm: 038291 1 Tablet(s) PO QHS No Start Date Active Vitamin D2 50,000 unit capsule RxNorm: 580540 1 Capsule(s) PO QW No Start Date 05/26/2014 Inactive once weekly x 12 weeks Zithromax Z-Brian 250 mg tablet RxNorm: 856522 1 Tablet(s) PO UD No Start Date 02/06/2018 Inactive Vitamin D2 50,000 unit capsule RxNorm: 103612 1 Capsule(s) PO QW No Start Date 11/20/2013 Inactive gabapentin 300 mg capsule RxNorm: 451211 1 Capsule(s) PO TID No Start Date 03/28/2017 Inactive Vesicare 10 mg tablet RxNorm: 205902 1 Tablet(s) PO QHS No Start Date 03/14/2016 Inactive Toprol XL 25 mg tablet,extended release RxNorm: 543910 1 Tablet(s) PO daily No Start Date 04/19/2018 Inactive Vitamin D3 5,000 unit tablet RxNorm: 943784 1 Tablet(s) PO daily No Start Date 08/11/2015 Inactive Celebrex 200 mg capsule RxNorm: 820768 1 Capsule(s) PO BID No Start Date 07/19/2016 Inactive Imitrex 50 mg tablet RxNorm: 452640 1 Tablet(s) PO now and may repeat up to four times in 24 hours No Start Date 11/03/2014 Inactive Zofran 4 mg tablet RxNorm: 749801 1 Tablet(s) PO Q8 as needed nausea and vomitting No Start Date 10/15/2015 Inactive ranitidine 150 mg tablet RxNorm: 681182 1 Tablet(s) PO BID No Start Date 02/12/2018 Inactive Phenergan 25 mg tablet RxNorm: 607284 1 Tablet(s) PO now No Start Date 04/15/2015 Inactive Tums oral RxNorm: 527856 oral No Start Date 10/15/2015 Inactive Medication Administered Medication Codes Instructions Start Date Status Kenalog 40 mg/mL suspension for injection RxNorm: 1802304 Milliliter 08/28/2018 Active Kenalog 40 mg/mL suspension for injection RxNorm: 1915383 1Milliliter 09/07/2017 No longer Active cyanocobalamin (vit B-12) 1,000 mcg/mL injection solution RxNorm: 665777 1Milliliter 11/28/2013 No longer Active Immunizations Vaccine [...] recently went to an eye doctor in [place]. Reports that he did have hemorrhaging in his right eye which is getting better. headache 04/18/2014 Pt states he recently went to an eye doctor in [place] shortness of breath 02/21/2014 blisters 12/25/2013 insomnia 11/28/2013 back pain 11/14/2013 Results Observation Observation Code Item Item Code Result Date Vitamin D 25 Oh [id number] VITAMIN D, 25 HYDROXY 66.80 ng/mL 03/14/2018 [...] 28.5 pg 03/14/2018 Cbc With Differential Ord2 [place]% 7.6 % 03/14/2018 Cbc With Differential Ord2 [...] 1.28 K/ul 03/14/2018 Cbc With Differential Ord2 [place] ABS# 0.4 K/ul 03/14/2018 Cbc With Differential [...] Lipid Ord30 C/HDL 5.0 Ratio 06/27/2017 %Hba1C Epe966 % HbA1c 98473- 6 6.2 % 06/27/2017 %Hba1C Hqy363 Gluc Ave 131 mg/dL 06/27/2017 Comp Metabolic Cad525 NA 140 mEq/L 06/27/2017 Comp Metabolic Gxq589 K 4.2 mEq/L 06/27/2017 Comp Metabolic Jiy580 CL 100 mEq/L 06/27/2017 Comp Metabolic Rbk317 CO2 32.0 mEq/L 06/27/2017 Comp Metabolic Gsn535 ANION GAP 12 06/27/2017 Comp Metabolic Jam675 GLUCOSE 118 mg/dL 06/27/2017 Comp Metabolic Fpp232 Creat 1.0 mg/dL 06/27/2017 Comp Metabolic Qwi828 eGFR 82 ml/min/1.73m2 06/27/2017 Comp Metabolic Ayy921 BUN 26 mg/dL 06/27/2017 Comp Metabolic Ptf824 B/C Ratio 27.1 Ratio 06/27/2017 Comp Metabolic Uyr935 CALCIUM 9.6 mg/dL 06/27/2017 Comp Metabolic Use452 ALK PHOS 46 U/L 06/27/2017 Comp Metabolic Llv860 AST(SGOT) 23 U/L 06/27/2017 Comp Metabolic Uko153 ALT(SGPT) 31 U/L 06/27/2017 Comp Metabolic Zpr780 BILI T 0.5 mg/dL 06/27/2017 Comp Metabolic Goy729 ALBUMIN 4.2 g/dL 06/27/2017 Comp Metabolic Czl597 TPRO 6.6 g/dL 06/27/2017 Comp Metabolic Kzj080 GLOB 2.4 g/dL 06/27/2017 Comp Metabolic Lbi815 A/G Ratio 1.7 Ratio 06/27/2017 Comp Metabolic Gkr493 Osmo 285 mOsmo 06/27/2017 Cbc With Differential [...] 29.0 pg 10/20/2016 Cbc With Differential Ord2 [place]% 9.0 % 10/20/2016 Cbc With Differential Ord2 [...] 1.33 K/ul 10/20/2016 Cbc With Differential Ord2 [place] ABS# 0.4 K/ul 10/20/2016 Cbc With Differential Ord2 Eos ABS# 0.2 K/ul 10/20/2016 Cbc With Differential Ord2 Baso ABS# 0.0 K/ul 10/20/2016 Comp Metabolic Yne929 NA 143 mEq/L 10/20/2016 Comp Metabolic Swf075 K 4.6 mEq/L 10/20/2016 Comp Metabolic Tos744 CL 104 mEq/L 10/20/2016 Comp Metabolic Oqt410 CO2 31.0 mEq/L 10/20/2016 Comp Metabolic Gae533 ANION GAP 13 10/20/2016 Comp Metabolic Hgw697 GLUCOSE 117 mg/dL 10/20/2016 Comp Metabolic Exr377 Creat 1.1 mg/dL 10/20/2016 Comp Metabolic Guu916 eGFR 74 ml/min/1.73m2 10/20/2016 Comp Metabolic Tiu201 BUN 27 mg/dL 10/20/2016 Comp Metabolic Khs654 B/C Ratio 25.7 Ratio 10/20/2016 Comp Metabolic Snu249 CALCIUM 9.3 mg/dL 10/20/2016 Comp Metabolic Ghh970 ALK PHOS 47 U/L 10/20/2016 Comp Metabolic Kld158 AST(SGOT) 18 U/L 10/20/2016 Comp Metabolic Khv409 ALT(SGPT) 22 U/L 10/20/2016 Comp Metabolic Ncy767 BILI T 0.5 mg/dL 10/20/2016 Comp Metabolic Kuj651 ALBUMIN 3.9 g/dL 10/20/2016 Comp Metabolic Dcb677 TPRO 6.5 g/dL 10/20/2016 Comp Metabolic Jdl716 GLOB 2.6 g/dL 10/20/2016 Comp Metabolic Sgi881 A/G Ratio 1.5 Ratio 10/20/2016 Comp Metabolic Vqy109 Osmo 291 mOsmo 10/20/2016 Tsh Ord6 hTSH II 1.56 uIU/mL 10/20/2016 Lipid Ord30 CHOL 153 mg/dL 10/20/2016 Lipid Ord30 HDL 34.0 mg/dl 10/20/2016 Lipid Ord30 TRIG 123 mg/dL 10/20/2016 Lipid Ord30 LDL 94 mg/dL 10/20/2016 Lipid Ord30 C/HDL 4.5 Ratio 10/20/2016 B12 Frb254 B12 544.00 pg/ml 10/20/2016 Comp Metabolic Omh275 NA 138 mEq/L 05/13/2016 Comp Metabolic Gwr421 K 4.2 mEq/L 05/13/2016 Comp Metabolic Heb795 CL 102 mEq/L 05/13/2016 Comp Metabolic Urg251 CO2 30.0 mEq/L 05/13/2016 Comp Metabolic Ysk263 ANION GAP 10 05/13/2016 Comp Metabolic Lvc856 GLUCOSE 113 mg/dL 05/13/2016 Comp Metabolic Kti749 Creat 1.0 mg/dL 05/13/2016 Comp Metabolic Nqn338 eGFR 77 ml/min/1.73m2 05/13/2016 Comp Metabolic Ngu385 BUN 26 mg/dL 05/13/2016 Comp Metabolic Rda433 B/C Ratio 25.5 Ratio 05/13/2016 Comp Metabolic Yed642 CALCIUM 9.7 mg/dL 05/13/2016 Comp Metabolic Gro253 ALK PHOS 51 U/L 05/13/2016 Comp Metabolic Oae496 AST(SGOT) 17 U/L 05/13/2016 Comp Metabolic Uqo826 ALT(SGPT) 20 U/L 05/13/2016 Comp Metabolic Dem349 BILI T 0.6 mg/dL 05/13/2016 Comp Metabolic Jgy306 ALBUMIN 4.0 g/dL 05/13/2016 Comp Metabolic Hhf060 TPRO 6.6 g/dL 05/13/2016 Comp Metabolic Foq541 GLOB 2.6 g/dL 05/13/2016 Comp Metabolic Gsi066 A/G Ratio 1.6 Ratio 05/13/2016 Comp Metabolic Obv420 Osmo 281 mOsmo 05/13/2016 Lipid Ord30 CHOL [...] 29.3 pg 02/11/2016 Cbc With Differential Ord2 [place]% 7.7 % 02/11/2016 Cbc With Differential Ord2 [...] 1.18 K/ul 02/11/2016 Cbc With Differential Ord2 [place] ABS# 0.4 K/ul 02/11/2016 Cbc With Differential Ord2 Eos ABS# 0.1 K/ul 02/11/2016 Cbc With Differential Ord2 Baso ABS# 0.0 K/ul 02/11/2016 Comp Metabolic Bha442 NA 138 mEq/L 02/11/2016 Comp Metabolic Pzx308 K 4.0 mEq/L 02/11/2016 Comp Metabolic Ahv882 CL 97 mEq/L 02/11/2016 Comp Metabolic Mqy951 CO2 32.0 mEq/L 02/11/2016 Comp Metabolic Nvb267 ANION GAP 13 02/11/2016 Comp Metabolic Ydj411 GLUCOSE 117 mg/dL 02/11/2016 Comp Metabolic Lqu612 Creat 1.0 mg/dL 02/11/2016 Comp Metabolic Lvh828 eGFR 81 ml/min/1.73m2 02/11/2016 Comp Metabolic Nbg722 BUN 21 mg/dL 02/11/2016 Comp Metabolic Bwy625 B/C Ratio 21.4 Ratio 02/11/2016 Comp Metabolic Mij631 CALCIUM 9.2 mg/dL 02/11/2016 Comp Metabolic Ygl517 ALK PHOS 48 U/L 02/11/2016 Comp Metabolic Mvr363 AST(SGOT) 18 U/L 02/11/2016 Comp Metabolic Xwd666 ALT(SGPT) 22 U/L 02/11/2016 Comp Metabolic Hcz910 BILI T 0.5 mg/dL 02/11/2016 Comp Metabolic Kgp641 ALBUMIN 3.9 g/dL 02/11/2016 Comp Metabolic Qcj657 TPRO 6.3 g/dL 02/11/2016 Comp Metabolic Bnu391 GLOB 2.5 g/dL 02/11/2016 Comp Metabolic Emc102 A/G Ratio 1.6 Ratio 02/11/2016 Comp Metabolic Twr544 Osmo 280 mOsmo 02/11/2016 Lipid Ord30 CHOL 163 mg/dL 02/11/2016 Lipid Ord30 HDL 35.0 mg/dl 02/11/2016 Lipid Ord30 TRIG 200 mg/dL 02/11/2016 Lipid Ord30 LDL 88 mg/dL 02/11/2016 Lipid Ord30 C/HDL 4.7 Ratio 02/11/2016 %Hba1C Ejx511 % HbA1c 34594- 6 6.5 % 02/11/2016 %Hba1C Ndy642 Gluc Ave 140 mg/dL 02/11/2016 Tsh Ord6 hTSH II 2.07 uIU/mL 02/11/2016 B12 Jtp577 B12 563.00 pg/ml 02/11/2016 Culture Urine [id number] URINE CULTURE SEE NOTES 02/10/2016 Culture Urine [id number] Continued Results 02/10/2016 Urine Culture Ucult Complete [...] hours from collection if refrigerated) 11/04/2015 %Hba1C Rgt671 % HbA1c 69303- 6 6.4 % 04/16/2015 %Hba1C Hyc414 Gluc Ave 137 mg/dL 04/16/2015 Tsh Ord6 hTSH II 3.33 uIU/mL 02/07/2015 Comp Metabolic Hsr182 NA 136 mEq/L 02/07/2015 Comp Metabolic Ear637 K 3.9 mEq/L 02/07/2015 Comp Metabolic Btk773 CL 98 mEq/L 02/07/2015 Comp Metabolic Ivl310 CO2 31.0 mEq/L 02/07/2015 Comp Metabolic Nen836 ANION GAP 11 02/07/2015 Comp Metabolic Zbq809 GLUCOSE 139 mg/dL 02/07/2015 Comp Metabolic Oxz902 Creat 0.9 mg/dL 02/07/2015 Comp Metabolic Bmr929 eGFR 87 ml/min/1.73m2 02/07/2015 Comp Metabolic Vxe538 BUN 20 mg/dL 02/07/2015 Comp Metabolic Atj878 B/C Ratio 21.7 Ratio 02/07/2015 Comp Metabolic Vus769 CALCIUM 9.7 mg/dL 02/07/2015 Comp Metabolic Rxq925 ALK PHOS 55 U/L 02/07/2015 Comp Metabolic Vbc437 AST(SGOT) 20 U/L 02/07/2015 Comp Metabolic Hsg339 ALT(SGPT) 27 U/L 02/07/2015 Comp Metabolic Lpu606 BILI T 0.5 mg/dL 02/07/2015 Comp Metabolic Bjs012 ALBUMIN 4.3 g/dL 02/07/2015 Comp Metabolic Udx823 TPRO 6.9 g/dL 02/07/2015 Comp Metabolic Lfx475 GLOB 2.6 g/dL 02/07/2015 Comp Metabolic Tpr740 A/G Ratio 1.7 Ratio 02/07/2015 Comp Metabolic Zaj158 Osmo 277 mOsmo 02/07/2015 Cbc With Differential [...] Ord2 RDW 14.8 % 02/07/2015 A1C HPLC [id number] A1C HPLC 03013-1 6.0 % 05/23/2014 VIT B 12 [id number] VIT B 12 479 PG/ML 05/23/2014 VIT D TOTL [id number] VIT D TOTL 29 NG/ML 05/23/2014 Review [...] masses 06/07/2017 None Full Exam - General 1995 Ears/Nose/Throat [...] kyphoscoliosis 04/16/2015 None Full Exam - General 1995 Musculoskeletal gait and station Gait: asymmetric 04/16/2015 [...] 4: G0439 12/27/2017 THER/PROPH/DIAG INJ SC/IM CPT-4: 51778 09/07/2017 TRIAMCINOLONE ACET INJ NOS CPT-4: J3301 09/07/2017 ROUTINE VENIPUNCTURE CPT- 4: 00960 05/23/2014 THER/PROPH/DIAG INJ SC/IM CPT-4: 84461 11/28/2013 VITAMIN B12 INJECTION CPT- 4: J3420 11/28/2013 Vital Signs Date Vital 08/28/2018 Blood Pressure 1: 144/72 Code: 8480-6 BMI: 36.8 Code: 41781-9 Heart Rate 1: 65 bpm Height: 6' SpO2: 97% Weight: 271 lbs 08/21/2018 Blood Pressure 1: 110/66 Code: 8480-6 BMI: 36.6 Code: 47532-6 Heart Rate 1: 70 bpm Height: 6' SpO2: 93% Weight: 270 lbs 06/27/2018 Blood Pressure 1: 124/70 Code: 8480-6 BMI: 36.6 Code: 89164-4 Heart Rate 1: 64 bpm Height: 6' SpO2: 96% Weight: 270 lbs 04/20/2018 Blood Pressure 1: 126/74 Code: 8480-6 BMI: 36.6 Code: 25022-6 Heart Rate 1: 60 bpm Height: 6' SpO2: 94% Weight: 270 lbs 03/21/2018 Blood Pressure 1: 138/74 Code: 8480-6 BMI: 36.8 Code: 64913-0 Heart Rate 1: 81 bpm Height: 6' SpO2: 98% Weight: 271 lbs 02/08/2018 Blood Pressure 1: 132/74 Code: 8480-6 BMI: 37.0 Code: 94465-5 Heart Rate 1: 82 bpm Height: 6' SpO2: 97% Weight: 273 lbs 12/27/2017 Blood Pressure 1: 148/78 Code: 8480-6 BMI: 36.3 Code: 85555-3 Heart Rate 1: 78 bpm Height: 6' SpO2: 93% Waist Measure (cm): 117 cm Weight: 268 lbs 12/06/2017 Blood Pressure 1: 122/70 Code: 8480-6 BMI: 36.6 Code: 55189-2 Heart Rate 1: 76 bpm Height: 6' SpO2: 93% Weight: 270 lbs 11/01/2017 BMI: 36.9 Code: 12541-9 Height: 6' Weight: 272 lbs 09/07/2017 Blood Pressure 1: 140/78 Code: 8480-6 BMI: 35.8 Code: 11538-7 Heart Rate 1: 76 bpm Height: 6' SpO2: 98% Weight: 264 lbs 06/07/2017 Blood Pressure 1: 138/86 Code: 8480-6 BMI: 36.3 Code: 18333-7 Heart Rate 1: 66 bpm Height: 6' SpO2: 95% Weight: 268 lbs 05/19/2017 Blood Pressure 1: 152/84 Code: 8480-6 BMI: 36.8 Code: 49825-1 Heart Rate 1: 70 bpm Height: 6' SpO2: 93% Weight: 271 lbs 05/09/2017 Blood Pressure 1: 138/76 Code: 8480-6 BMI: 36.6 Code: 36875-8 Heart Rate 1: 79 bpm Height: 6' SpO2: 93% Weight: 270 lbs 04/25/2017 Blood Pressure 1: 150/80 Code: 8480-6 Heart Rate 1: 58 bpm Height: SpO2: 94% Weight: 2017 Blood Pressure 1: 138/80 Code: 8480-6 BMI: 36.5 Code: 61321-5 Heart Rate 1: 76 bpm Height: 6' SpO2: 96% Weight: 269 lbs 03/29/2017 Blood Pressure 1: 118/68 Code: 8480-6 BMI: 36.9 Code: 62143-1 Heart Rate 1: 61 bpm Height: 6' SpO2: 95% Weight: 272 lbs 03/17/2017 Blood Pressure 1: 140/78 Code: 8480-6 BMI: 36.8 Code: 16262-5 Heart Rate 1: 91 bpm Height: 6' SpO2: 93% Weight: 271 lbs 03/08/2017 Blood Pressure 1: 152/84 Code: 8480-6 BMI: 36.8 Code: 10383-7 Heart Rate 1: 72 bpm Height: 6' SpO2: 92% Temperature: 36.6 (C) / 97.8 (F) Weight: 271 lbs 02/17/2017 Blood Pressure 1: 110/64 Code: 8480-6 BMI: 36.5 Code: 81734-3 Heart Rate 1: 62 bpm Height: 6' SpO2: 96% Weight: 269 lbs 01/18/2017 Blood Pressure 1: 140/80 Code: 8480-6 BMI: 36.5 Code: 57272-2 Heart Rate 1: 62 bpm Height: 6' SpO2: 94% Weight: 269 lbs 10/19/2016 Blood Pressure 1: 120/80 Code: 8480-6 BMI: 35.9 Code: 54072-8 Heart Rate 1: 64 bpm Height: 6' SpO2: 97% Weight: 265 lbs 08/17/2016 Blood Pressure 1: 112/76 Code: 8480-6 BMI: 36.1 Code: 52830-8 Heart Rate 1: 65 bpm Height: 6' SpO2: 97% Weight: 266 lbs 07/20/2016 Blood Pressure 1: 126/78 Code: 8480-6 BMI: 35.5 Code: 18162-5 Heart Rate 1: 60 bpm Height: 6' SpO2: 95% Weight: 262 lbs 04/19/2016 Blood Pressure 1: 132/78 Code: 8480-6 BMI: 35.1 Code: 80578-1 Heart Rate 1: 65 bpm Height: 6' SpO2: 98% Weight: 259 lbs 01/19/2016 Blood Pressure 1: 140/64 Code: 8480-6 BMI: 34.4 Code: 26385-9 Heart Rate 1: 61 bpm Height: 6' SpO2: 97% Weight: 254 lbs 10/16/2015 Blood Pressure 1: 108/66 Code: 8480-6 BMI: 35.3 Code: 12097-1 Heart Rate 1: 65 bpm Height: 6' SpO2: 96% Weight: 260 lbs 07/17/2015 Blood Pressure 1: 136/74 Code: 8480-6 BMI: 35.8 Code: 37257-1 Heart Rate 1: 59 bpm Height: 6' SpO2: 97% Weight: 263 lbs 13 oz 07/03/2015 Weight: 265 lbs 04/16/2015 Blood Pressure 1: 130/82 Code: 8480-6 BMI: 36.1 Code: 06423-3 Heart Rate 1: 7694 bpm Height: 6' SpO2: 94% Weight: 266 lbs 02/19/2015 Blood Pressure 1: 160/90 Code: 8480-6 BMI: 35.8 Code: 66436-9 Heart Rate 1: 78 bpm Height: 6' SpO2: 94% Weight: 264 lbs 11/20/2014 Blood Pressure 1: 140/96 Code: 8480-6 BMI: 34.6 Code: 66391-2 Heart Rate 1: 92 bpm Height: 6' SpO2: 95% Weight: 255 lbs 11/05/2014 Blood Pressure 1: 132/70 Code: 8480-6 BMI: 34.6 Code: 14329-3 Heart Rate 1: 96 bpm Height: 6' SpO2: 98% Weight: 255 lbs 09/19/2014 Blood Pressure 1: 152/86 Code: 8480-6 BMI: 35.8 Code: 11743-5 Heart Rate 1: 82 bpm Height: 6' SpO2: 95% Weight: 264 lbs 07/24/2014 Blood Pressure 1: 142/82 Code: 8480-6 BMI: 34.7 Code: 58612-0 Heart Rate 1: 72 bpm Height: 6' Weight: 256 lbs 05/23/2014 Blood Pressure 1: 150/82 Code: 8480-6 BMI: 33.4 Code: 86980-5 Heart Rate 1: 68 bpm Height: 6' Weight: 246 lbs 04/18/2014 Blood Pressure 1: 132/84 Code: 8480-6 BMI: 33.2 Code: 76058-8 Heart Rate 1: 80 bpm Height: 6' Weight: 245 lbs 02/21/2014 Blood Pressure 1: 138/82 Code: 8480-6 BMI: 32.4 Code: 14984-7 Heart Rate 1: 85 bpm Height: 6' SpO2: 98% Weight: 239 lbs 12/25/2013 Blood Pressure 1: 146/80 Code: 8480-6 BMI: 30.5 Code: 11752-0 Heart Rate 1: 100 bpm Height: 6' Weight: 225 lbs 11/28/2013 Blood Pressure 1: 120/64 Code: 8480-6 BMI: 30.4 Code: 68453-5 Heart Rate 1: 68 bpm Height: 6' Weight: 224 lbs 11/14/2013 Blood Pressure 1: 124/80 Code: 8480-6 BMI: 30.0 Code: 97008-1 Heart Rate 1: 76 bpm Height: 6' [...] not bring in readings 08/21/2018 -Checked at [facility] Pertinent Findings Denies dizziness 08/21/2018 None Pertinent [...] data Encounters Encounter Performer Location Codes Date ([id number]) [id number] EST. PATIENT, LEVEL III Diagnosis: Rash and other nonspecific skin eruption[ICD10: R21] Diagnosis: Other pruritus[ICD10: L29.8] [facility] CPT-4: 73954 08/28/2018 ([id number]) 66999 EST. PATIENT, LEVEL IV Diagnosis: Essential (primary) hypertension[ICD10: I10] Diagnosis: Pain in right shoulder[ICD10: M25.511] Diagnosis: Muscle weakness (generalized)[ICD10: M62.81] [facility] CPT-4: 06175 08/21/2018 72730 EST. PATIENT, LEVEL III Diagnosis: Tinea barbae and tinea capitis[ICD10: B35.0] [facility] CPT-4: 66680 06/27/2018 ([id number]) 71764 EST. 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 PATIENT, LEVEL III Diagnosis: Acute bronchitis due to other specified organisms[ICD10: J20.8] Antoinette Long MD, [facility] CPT-4: 95526 02/08/2018 ([id number]) 58134 EST. 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 PATIENT, LEVEL III Diagnosis: Essential (primary) hypertension[ICD10: I10] Diagnosis: Localized edema[ICD10: R60.0] Diagnosis: Cellulitis of left lower limb[ICD10: L03.116] Quyen Long MD [facility] CPT-4: 61069 06/07/2017 ([id number]) 45916 EST. 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 PATIENT, LEVEL II Diagnosis: Rash and other nonspecific skin eruption[ICD10: R21] Glory Long MD [facility] CPT-4: 19246 05/09/2017 ([id number]) 71794 EST. PATIENT, LEVEL II Diagnosis: Rash and other nonspecific skin eruption[ICD10: R21] Glory Long MD [facility] CPT-4: 87501 04/25/2017 ([id number]) 70379 EST. PATIENT, LEVEL III Diagnosis: Cellulitis of left lower limb[ICD10: L03.116] Diagnosis: Rash and other nonspecific skin eruption[ICD10: R21] Glory Long MD [facility] CPT-4: 70975 2017 ([id number]) 95488 EST. PATIENT, LEVEL III Diagnosis: Cellulitis of left lower limb[ICD10: L03.116] Diagnosis: Rash and other nonspecific skin eruption[ICD10: R21] Glory Long MD [facility] CPT-4: 01198 03/29/2017 06158 EST. PATIENT, LEVEL IV Diagnosis: Cellulitis of left lower limb[ICD10: L03.116] Antoinette Long MD [facility] CPT-4: 71214 03/17/2017 ([id number]) 75099 EST. PATIENT, LEVEL III Diagnosis: Rash and other nonspecific skin eruption[ICD10: R21] Glory Long MD [facility] CPT-4: 02318 03/08/2017 96434 EST. PATIENT, LEVEL IV Diagnosis: Essential (primary) hypertension[ICD10: I10] Diagnosis: Muscle weakness (generalized)[ICD10: M62.81] Diagnosis: Body mass index (BMI) 36.0-36.9, adult[ICD10: Z68.36] Diagnosis: Family history of ischemic heart disease and other diseases of the circulatory system[ICD10: Z82.49] Antoinette Long MD, [facility] CPT-4: 34516 02/17/2017 ([id number]) 92937 EST. PATIENT, LEVEL IV Diagnosis: Essential (primary) hypertension[ICD10: I10] Diagnosis: Muscle weakness (generalized)[ICD10: M62.81] Quyen Long MD, [facility] CPT-4: 98582 01/18/2017 ([id number]) 67731 EST. 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 PATIENT, LEVEL III Diagnosis: Pain in left shoulder[ICD10: M25.512] Diagnosis: Rash and other nonspecific skin eruption[ICD10: R21] Glory Long MD, [facility] CPT-4: 92362 08/17/2016 ([id number]) 69605 EST. PATIENT, LEVEL IV Diagnosis: Essential (primary) hypertension[ICD10: I10] Diagnosis: Pain in left shoulder[ICD10: M25.512] Quyen Long MD, [facility] CPT-4: 39354 07/20/2016 ([id number]) 88629 EST. 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 PATIENT, LEVEL IV Diagnosis: Essential (primary) hypertension[ICD10: I10] Diagnosis: Other abnormal glucose[ICD10: R73.09] Diagnosis: Gastro-esophageal reflux disease without esophagitis[ICD10: K21.9] Diagnosis: Obesity, unspecified[ICD10: E66.9] Quyen Long MD [facility] CPT- 4: 18691 04/16/2015 ([id number]) 17359 EST. PATIENT, LEVEL IV Diagnosis: ESSENTIAL HYPERTENSION[ICD9: 401.9] Diagnosis: OBESITY[ICD9: 278.00] Diagnosis: Post-polio limb muscle weakness[ICD9: 728.87] Quyen Long MD, [facility] CPT-4: 16175 02/19/2015 ([id number]) 56656 EST. PATIENT, LEVEL IV Diagnosis: Shingles outbreak[ICD9: 053.9] Diagnosis: ESSENTIAL HYPERTENSION[ICD9: 401.9] Diagnosis: Earache[ICD9: 388.70] Quyen Long MD, [facility] CPT-4: 51270 11/20/2014 ([id number]) 00988 EST. PATIENT, LEVEL III Diagnosis: Shingles outbreak[ICD9: 053.9] Diagnosis: Face pain[ICD9: 784.0] Diagnosis: Pain, eye, right[ICD9: 379.91] Quyen Long MD, [facility] CPT-4: 48911 11/05/2014 ([id number]) 93904 EST. PATIENT, LEVEL V Diagnosis: Post-polio limb muscle weakness[ICD9: 728.87] Diagnosis: Post-polio syndrome[ICD9: 138] Diagnosis: Leg weakness[ICD9: 729.89] Diagnosis: Weakness[ICD9: 780.79] Diagnosis: Foot drop[ICD9: 736.79] Quyen Long MD, [facility] CPT-4: 56899 09/19/2014 ([id number]) 92958 EST. PATIENT, LEVEL IV Diagnosis: ESSENTIAL HYPERTENSION[ICD9: 401.9] Diagnosis: Carotid bruit[ICD9: 785.9] Diagnosis: Seborrheic dermatitis[ICD9: 690.10] Diagnosis: Post-polio syndrome[ICD9: 138] Diagnosis: Vitamin D deficiency[ICD9: 268.9] Quyen Long MD, [facility] CPT- 4: 19878 07/24/2014 [id number]) 03819 EST. PATIENT, LEVEL IV Diagnosis: Neck pain[ICD9: 723.1] Diagnosis: Post-polio syndrome[ICD9: 138] Diagnosis: Vitamin D deficiency[ICD9: 268.9] Diagnosis: Vitamin B12 deficiency[ICD9: 266.2] Diagnosis: Nocturia[ICD9: 788.43] Diagnosis: Leg weakness[ICD9: 729.89] Diagnosis: Elevated blood sugar[ICD9: 790.29] Glory Long MD, [facility] CPT- 4: 95518 05/23/2014 [id number]) 88545 EST. PATIENT, LEVEL IV Diagnosis: ESSENTIAL HYPERTENSION[ICD9: 401.9] Diagnosis: HEADACHE[ICD9: 784.0] Diagnosis: EDEMA[ICD9: 782.3] Quyen Long MD, [facility] CPT-4: 95537 04/18/2014 61728 EST. PATIENT, LEVEL IV Diagnosis: Insomnia[ICD9: 780.52] Diagnosis: Post-polio syndrome[ICD9: 138] Diagnosis: Vitamin D deficiency[ICD9: 268.9] Diagnosis: Nocturnal hypoxemia[ICD9: 799.02] Glory Long MD, [facility] CPT- 4: 93149 02/21/2014 ([id number]) 36259 EST. PATIENT, LEVEL III Diagnosis: Tinea pedis[ICD9: 110.4] Diagnosis: Post-polio limb muscle weakness[ICD9: 728.87] Glory Long MD, [facility] CPT-4: 42058 12/25/2013 ([id number]) 45002 EST. PATIENT, LEVEL IV Diagnosis: Insomnia[ICD9: 780.52] Diagnosis: Vitamin B12 deficiency (dietary) anemia[ICD9: 281.1] Diagnosis: VITAMIN D DEFICIENCY[ICD9: 268.9] Diagnosis: Weakness[ICD9: 780.79] Quyen Long MD, [facility] CPT-4: 20997 11/28/2013 ([id number]) OFFICE/OUTPATIENT VISIT NEW Diagnosis: Post-polio limb muscle weakness[ICD9: 728.87] Diagnosis: Post-polio syndrome[ICD9: 138] Diagnosis: Insomnia[ICD9: 780.52] Diagnosis: Arrhythmia[ICD9: 427.9] Quyen Long MD, [facility] CPT-4: 18731 11/14/2013 Plan of Care Planned Activity Notes Codes Status Date Visit Plan: Rash-culture today in the office -kenalog injection for acute symptoms -start prednisone tomorrow- treat with abx if indicated on culture- follow up in 1 week, sooner if needed 08/28/2018 Patient Education: Patient Medication Summary Completed 08/28/2018 Care Plan: C WOUN RTS right foot rash Pending 08/28/2018 Appointment: Quyen Long WPtel: [address] [place], [place] [phone] (15 min) Moderate 08/24/2018 Visit Plan: Hypertension [...] Post-Polio syndrome. 08/21/2018 Appointment: Quyen Long WPtel: [phone] [facility] (15 min) Moderate 08/21/2018 Patient Education: Patient Medication Summary Completed 08/21/2018 Patient Education: Hypertension Completed 08/21/2018 Visit Plan: Tinea barbae -rx for ketoconazole written and instructed patient on use -instructed patient to call or return to clinic if symptoms do not resolve or if any worse. Patient verbalized understanding of plan. 06/27/2018 Appointment: Glory Dalton WPtel: [phone] [place] (30 min) Complex 06/27/2018 Patient Education: [...] his shoulder. 04/20/2018 Appointment: Quyen Long WPtel: [facility] (15 min) Moderate 04/20/2018 Patient Education: Patient Medication Summary Completed 04/20/2018 Patient Education: Hypertension Completed 04/20/2018 Appointment: Quyen Long WPtel: [facility] [place] (15 min) Moderate 04/11/2018 Visit Plan: Post polio syndrome -right leg weakness -patient needs repair and adjustment of his right leg brace that helps with his symptoms of instability and weakness and allows him to ambulate -will send rx to [facility] 03/21/2018 Appointment: Glory Dalton WPtel: [phone] (15 min) Moderate 03/21/2018 Patient Education: Patient [...] acutely worsen. 02/08/2018 Appointment: Antoin[facility] Arndt [facility]el[phone] [facility] (30 min) Complex 02/08/2018 Patient Education: Patient [...] Summary Completed 12/27/2017 [facility]ment[phone] (15 min) Moderate 12/08/2017 Visit Plan: Hypertension [...] shoulder injection. 12/06/2017 Appointment: Quyen Long WPtel: [address] [place], [place] [id number] (15 min) Moderate 12/06/2017 Patient Education: Patient [...] weight check. 09/07/2017 Appointment: Quyen Long WPtel: [facility] (15 min) Moderate 09/07/2017 Patient Education: Patient [...] lower leg. 06/07/2017 Appointment: Quyen Long WPtel: [facility] (15 min) Moderate 06/07/2017 Patient Education: Patient [...] compression recommended. 05/19/2017 Appointment: Quyen Long WPtel: [facility] [place] (15 min) Moderate 05/19/2017 Patient Education: Patient Medication Summary Completed 05/19/2017 Patient Education: Obesity Completed 05/19/2017 Patient Education: Hypertension Completed 05/19/2017 Visit Plan: Rash-left vgkw-gmfyuyol-gkdeeddoib patient to continue using ketoconazole plus betamethasone equal parts and increase to TID-leave foot open to air as much as possible-follow up in 2 weeks, sooner if needed. 05/09/2017 Appointment: Glory Dalton WPtel: [phone] (30 min) Complex 05/09/2017 Patient Education: Patient Medication Summary Completed 05/09/2017 Patient Education: Obesity Completed 05/09/2017 Visit Plan: Rash-left foot-Dr Long in to evaluate rash-instructed patient to start using ketoconazole plus betamethasone equal parts TID -follow up in 2 weeks, sooner if needed. 04/25/2017 Appointment: Glory Dalton WPtel: [phone] (30 min) Complex 04/25/2017 Patient Education: Patient Medication Summary Completed 04/25/2017 Visit Plan: Cellulitis of left foot-no longer draining-no open areas-no excoriation-slightly red-okay to d/c all treatments-keep clean and monitor-call if redness does not resolve Rash-resolved 2017 Appointment: Glory Dalton WPtel: [phone] (30 min) Complex 2017 Patient Education: Patient Medication Summary Completed 2017 Patient Education: Obesity Completed 2017 Visit Plan: Cellulitis-left foot-MSSA vwfucvwu-mhcjuvwhv-bvcfg air in the evening-continue bactroban ointment twice daily-stop using alcohol on foot-no papertowels or abrasives to foot Zuca-sdit-xc for betamethasone provided and instructed on use 03/29/2017 Appointment: Glory Dalton WPtel: [phone] [place] (30 min) Complex 03/29/2017 Patient Education: Patient Medication Summary Completed 03/29/2017 Patient Education: Obesity Completed 03/29/2017 Appointment: Glory Dalton WPtel: [phone] (30 min) Complex 03/22/2017 Visit Plan: [...] warmth, discharge. 03/17/2017 Appointment: Antoinette Arndt WPtel: [facility] (30 min) [facility] 03/17/2017 Patient Education: Patient Medication Summary Completed [...] break. 01/18/2017 Appointment: Quyen Long WPtel: [phone] [facility] (15 min) Moderate 01/18/2017 Patient Education: Patient [...] and weakness. 10/19/2016 Appointment: Quyen Long WPtel: [phone] [facility] (15 min) Moderate 10/19/2016 Patient Education: Patient Medication Summary Completed 10/19/2016 Patient Education: Obesity Completed 10/19/2016 Visit Plan: Left shoulder pain-hospital f/u recent shoulder surgery with Dr Wilson-doing well-sees Dr Wilson this afternoon for suture removal-pain improved Wkiz-wjpb-wcvymhw fungal infection-will treat with ket oconazole -follow up in 2 weeks 08/17/2016 Appointment: Glory Dalton WPtel: [phone] [phone] [place] (30 min) Complex 08/17/2016 Patient [...] when ambulating. 07/20/2016 Appointment: [facility]el[phone] (15 min) Moderate 07/20/2016 Patient Education: Patient [...] for strengthening. 04/19/2016 Appointment: Quyen Long WPtel: [phone] [facility] (15 min) Moderate 04/19/2016 Patient Education: Patient [...] appointment. 01/19/2016 Appointment: Quyen Long WPtel: [phone] [facility] (15 min) Moderate 01/19/2016 Patient Education: Patient Medication Summary Completed 01/19/2016 Patient Education: Obesity Completed 01/19/2016 Patient Education: Hypertension Completed 01/19/2016 Referral: Dr Mccauley Referral Completed 11/11/2015 Care Plan: Referral Order SNOMED-CT : [id number] Pending 11/03/2015 Visit Plan: Hypertension - well [...] injection 10/16/2015 Appointment: Quyen Long WPtel[phone] [facility] (15 min) Moderate 10/16/2015 Patient Education: Patient [...] center - 02/19/2015 Appointment: Quyen Long [id number] (15 min) Moderate 02/19/2015 Patient Education: Patient [...] ear drops. 11/20/2014 Appointment: Quyen Long [facility]Ptel[facility] [phone] [facility] Follow up 11/20/2014 Patient Education: Patient Medication [...] doctor ESME. 11/05/2014 Appointment: Quyen Long WPtel: [facility] (15 min) Moderate 11/05/2014 Patient Education: Patient [...] to participate in activities outside of the shelter. He has a family that would like [...] and foot. 09/19/2014 Appointment: Quyen Long WPtel: [id number] [place] Follow up 09/19/2014 Patient Education: Patient [...] deficiency - recommended repeat of vitamin d [id number] weekly x 12 weeks and increase vitamin d to 5000 units daily. 07/24/2014 Appointment: Quyen Long WPtel: [id number] [place] Follow up 07/24/2014 Patient Education: Patient [...] B12 level 05/23/2014 Appointment: Glory Dalton WPtel: [address] [place], [place] [id number] [place] Follow up 05/23/2014 Patient Education: Patient Medication Summary Completed 05/23/2014 Patient Education: .Cervicalgia Neck Pain Completed 05/23/2014 Appointment: Quyen Long WPtel: [id number] [place] Follow up 05/22/2014 Visit Plan: Edema [...] home. 04/18/2014 Appointment: Quyen Long WPtel: [phone] [facility] Follow up 04/18/2014 Patient Education: Patient Medication Summary Completed 04/18/2014 Patient Education: Hypertension Completed 04/18/2014 Appointment: Quyen Long WPtel: [facility] Follow up 02/27/2014 Visit Plan: Insomnia - Pt has been advised to increase the light in the house during the day, and start dimming the lights during the evening hours. Pt has been advised to cut out caffeine after 5pm. Daytime napping worsens night time insomnia. START TRAZODONE AND MONITOR SYMPTOMS. Vitamin D ftxlezcvtn-pdyyenaq-euhrhhim vitamin D 50,000 units weekly for 12 additional weeks. Hypoxemia-continue night time oxygen 02/21/2014 Appointment: Glory Dalton [facility]el[phone] [id number] Follow up 02/21/2014 Patient Education: Patient [...] sister verbalize understanding of plan. 12/25/2013 Appointment: claribelnt received medicaid card yet Other 12/25/2013 Patient [...] on mobic. 11/28/2013 Appointment: Quyen Long WPtel: [phone] [facility] Follow up 11/28/2013 Patient Education: Patient Medication [...] oxygen study. 11/14/2013 Appointment: Quyen Long WPtel: [phone] [facility] [place] New Patient 11/14/2013 Patient Education: Patient Medication Summary Completed 11/14/2013 Referral: Dr Mccauley Referral Appointment Requested Instructions Comment . Rash-left gbgk-dntkfgbi-ttcbqmwldo patient to continue using ketoconazole plus betamethasone [...] up in 10 days . Cellulitis-left foot-MSSA znqtgpfu-fahhgvyyj-kgxzh air in the evening-continue bactroban ointment twice daily-stop using alcohol on foot-no papertowels or abrasives to foot Ypoa-qvok-id for betamethasone provided and instructed on use [...] START TRAZODONE AND MONITOR SYMPTOMS. Vitamin D gvincklgkt-dyifhdqr-veginfak vitamin D 50,000 units weekly for 12 [...] deficiency - recommended repeat of vitamin d [id number] weekly x 12 weeks and increase vitamin [...] shoulder surgery with Dr Wilson-doing well-sees Dr Zafuta this afternoon for suture removal-pain improved Scje-dbge-spygspy fungal infection-will treat with ketoconazole -follow up [...] to participate in activities outside of the shelter. He has a family that would like [...] him to ambulate -will send rx to [facility]
--- OUTSIDE RECORDS SUMMARY | 2018-11-10 15:48 | XMS REPORT | CCD ---
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 Operator Name Role Phone PP Unavailable CCM Unavailable Summary Purpose Interface Exchange Insurance Providers Payer name Policy type / Coverage type Covered republican ID Effective Begin Date Effective End Date WPS Medicare Part B Medicare Part B [id number] 2017 Unknown [facility] Medicare Part B [id number] 2017 Unknown Family history Grandmother Diagnosis Age [...] Description Effective Dates Tobacco history SNOMED CT: 9675782 Former smoker 1.5 pack daily x 45 years 12/27/2017 Marital status Unknown 10/19/2016 Living arrangements Unknown Assisted Living [facility] 04/19/2016 Number of children Unknown 1 son - lives in [place] 11/14/2013 Employment Unknown 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 11/14/[address]: 027729256 Never drinks alcohol 11/14/2013 Has the patient [...] ICD-9: 110.4 ICD-10: B35.3 Active 05/19/2017 Unknown Rash and other nonspecific skin eruption ICD-9: 782.1 ICD-10: R21 Active 08/17/2016 Unknown Body mass index (BMI) 36.0-36.9, adult [...] pedis ICD-9: 110.4 ICD-10: B35.3 05/19/2017 Active Rash and other nonspecific skin eruption ICD-9: 782.1 ICD-10: R21 08/17/2016 Active Body mass index (BMI) 36.0-36.9, adult [...] Fill Instructions ranitidine 150 mg tablet RxNorm: 072624 1 Tablet(s) PO daily 08/21/2018 No Stop Date Active ketoconazole 2 % topical cream RxNorm: 212984 1 Application TOP BID to left ear and left arm, right arm, left - a total of 1 gram bid 08/21/2018 12/18/2018 Active ketoconazole 2 % shampoo RxNorm: 471594 APPLY TO AFFECTED AREA(S) TWICE WEEKLY UNTIL RESOLVED 08/14/2018 09/10/2018 Active cetirizine 10 mg tablet RxNorm: 6521220 TAKE ONE TABLET BY MOUTH EVERY NIGHT AT BEDTIME 08/07/2018 03/04/2019 Active trazodone 50 mg tablet RxNorm: 502038 TAKE ONE TABLET BY MOUTH AT BEDTIME 07/18/2018 11/14/2018 Active ketoconazole 2 % shampoo RxNorm: 958767 1 TOP BIW 06/27/2018 08/13/2018 Inactive Vitamin B-12 1,000 mcg/mL injection solution RxNorm: 815992 INJECT 1ML MONTHLY 06/19/2018 11/15/2018 Active Request already responded to by other means (e.g. phone or fax) Vitamin B-12 1,000 mcg/mL injection solution RxNorm: 898820 Milliliter(s) INJECT 1ML MONTHLY 06/15/2018 06/18/2018 Inactive Zithromax Z-Brian 250 mg tablet RxNorm: 224874 1 Tablet(s) PO UD 06/14/2018 08/20/2018 Inactive zpack as directed x1 tamsulosin 0.4 mg capsule RxNorm: 312386 TAKE ONE CAPSULE BY MOUTH EVERY EVENING 06/12/2018 01/07/2019 Active gabapentin 300 mg capsule RxNorm: 334989 TAKE ONE CAPSULE BY MOUTH TWICE A DAY 05/31/2018 09/27/2018 Active losartan 50 mg tablet RxNorm: 433120 TAKE ONE TABLET BY MOUTH DAILY 05/01/2018 09/27/2018 Active Toprol XL 50 mg tablet,extended release RxNorm: 176298 1 Tablet(s) PO daily 04/20/2018 No Stop Date Active Vitamin D3 5,000 unit tablet RxNorm: 100130 TAKE ONE TABLET BY MOUTH DAILY 04/05/2018 02/28/2019 Active trazodone 50 mg tablet RxNorm: 496158 TAKE ONE TABLET BY MOUTH AT BEDTIME 02/27/2018 07/17/2018 Inactive hydrochlorothiazide 25 mg tablet RxNorm: 407249 TAKE ONE TABLET BY MOUTH DAILY 02/13/2018 11/09/2018 Active ranitidine 150 mg tablet RxNorm: 221992 1 Tablet(s) PO BID 02/13/2018 08/20/2018 Inactive albuterol sulfate 2.5 mg/3 mL (0.083 %) solution for nebulization RxNorm: 408502 3 Milliliter(s) INH UD 02/08/2018 No Stop Date Active please deliver all of his prescriptions thank you cefdinir 300 mg capsule RxNorm: 387694 1 Capsule(s) PO BID 02/08/2018 02/17/2018 Inactive prednisone 20 mg tablet RxNorm: 922594 2 Tablet(s) PO daily 02/08/2018 02/12/2018 Inactive fluticasone 50 mcg/actuation nasal spray,suspension RxNorm: 5572526 1 [place] NASAL BID 02/07/2018 06/06/2018 Inactive fluticasone 50 mcg/actuation nasal spray,suspension RxNorm: 1508947 1 [place] NASAL BID 02/07/2018 02/06/2018 Inactive Zithromax Z-Brian 250 mg tablet RxNorm: 606508 1 Tablet(s) PO UD 02/07/2018 03/14/2018 Inactive zpack as directed tamsulosin 0.4 mg capsule RxNorm: 020613 TAKE ONE CAPSULE BY MOUTH EVERY EVENING 01/13/2018 06/11/2018 Inactive Vitamin D3 5,000 unit tablet RxNorm: 675682 TAKE ONE TABLET BY MOUTH DAILY 01/02/2018 04/04/2018 Inactive cetirizine 10 mg tablet RxNorm: 9187477 TAKE ONE TABLET BY MOUTH EVERY NIGHT AT BEDTIME 01/02/2018 04/01/2018 Inactive cetirizine 10 mg tablet RxNorm: 0374212 1 Tablet(s) PO QHS 12/26/2017 01/01/2018 Inactive cetirizine 10 mg tablet RxNorm: 0129912 1 Tablet(s) PO QHS 12/26/2017 12/25/2017 Inactive losartan 50 mg tablet RxNorm: 033764 TAKE ONE TABLET BY MOUTH DAILY (STARTING 09-09-2017) 09/29/2017 03/27/2018 Inactive Request already responded to by other means (e.g. phone or fax) losartan 50 mg tablet RxNorm: 526953 1 Tablet(s) PO daily 09/27/2017 09/26/2017 Inactive losartan 50 mg tablet RxNorm: 059570 1 Tablet(s) PO daily 09/27/2017 09/28/2017 Inactive Bactrim DS 800 mg-160 mg tablet RxNorm: 221974 1 Tablet(s) PO BID 09/13/2017 09/19/2017 Inactive Kenalog 40 mg/mL suspension for injection RxNorm: 1017669 1 Milliliter(s) Inj 09/07/2017 09/07/2017 Inactive trazodone 50 mg tablet RxNorm: 816918 TAKE ONE TABLET BY MOUTH AT BEDTIME 08/16/2017 02/11/2018 Inactive gabapentin 300 mg capsule RxNorm: 041557 1 Capsule(s) PO BID 08/03/2017 01/29/2018 Inactive Vitamin D3 5,000 unit tablet RxNorm: 790942 TAKE ONE TABLET BY MOUTH DAILY 08/01/2017 12/28/2017 Inactive ketoconazole 2 % topical cream RxNorm: 093238 APPLY TO AFFECTED AREA(S) TWO TIMES A DAY 05/31/2017 06/29/2017 Inactive hydrochlorothiazide 25 mg tablet RxNorm: 118437 TAKE ONE TABLET BY MOUTH DAILY 05/16/2017 02/09/2018 Inactive lisinopril 20 mg tablet RxNorm: 449105 TAKE ONE TABLET BY MOUTH DAILY 05/16/2017 09/06/2017 Inactive ketoconazole 2 % topical cream RxNorm: 592946 1 Application TOP BID 03/29/2017 04/11/2017 Inactive apply to faice-deliver to [facility] please betamethasone dipropionate 0.05 % topical ointment RxNorm: 494752 1 Application TOP BID 03/29/2017 04/11/2017 Inactive apply to arm/chests for itching gabapentin 300 mg capsule RxNorm: 087270 1 Capsule(s) PO BID 03/29/2017 08/02/2017 Inactive trazodone 50 mg tablet RxNorm: 719482 TAKE ONE TABLET BY MOUTH AT BEDTIME 03/28/2017 08/15/2017 Inactive Vesicare 10 mg tablet RxNorm: 192791 TAKE ONE TABLET BY MOUTH EVERY NIGHT AT BEDTIME 03/21/2017 12/26/2017 Inactive Vesicare 10 mg tablet RxNorm: 998733 TAKE ONE TABLET BY MOUTH EVERY NIGHT AT BEDTIME 03/21/2017 06/06/2017 Inactive doxycycline hyclate 100 mg capsule RxNorm: 8039147 1 Capsule(s) PO BID 03/18/2017 03/27/2017 Inactive mupirocin 2 % topical ointment RxNorm: 534771 1 Application TOP BID 03/17/2017 No Stop Date Active doxycycline hyclate 100 mg tablet RxNorm: 256700 1 Tablet(s) PO BID 03/09/2017 03/15/2017 Inactive Take probiotic BID while on ABT doxycycline hyclate 100 mg tablet RxNorm: 653478 1 Tablet(s) PO BID 03/09/2017 03/08/2017 Inactive Take probiotic BID while on ABT meloxicam 15 mg tablet RxNorm: 661218 TAKE ONE TABLET BY MOUTH DAILY 02/10/2017 12/06/2017 Inactive Vitamin D3 5,000 unit tablet RxNorm: 370779 TAKE ONE TABLET BY MOUTH DAILY 02/08/2017 07/31/2017 Inactive Vitamin B-12 1,000 mcg/mL injection solution RxNorm: 022242 INJECT 1ML MONTHLY 01/24/2017 07/22/2017 Inactive lisinopril 20 mg tablet RxNorm: 415797 TAKE ONE TABLET BY MOUTH DAILY 12/13/2016 04/11/2017 Inactive trazodone 50 mg tablet RxNorm: 683763 TAKE ONE TABLET BY MOUTH AT BEDTIME 09/24/2016 03/22/2017 Inactive Vitamin D3 5,000 unit tablet RxNorm: 517214 TAKE ONE TABLET BY MOUTH DAILY 09/20/2016 02/07/2017 Inactive lisinopril 20 mg tablet RxNorm: 797445 TAKE ONE TABLET BY MOUTH DAILY 09/13/2016 12/12/2016 Inactive ketoconazole 2 % topical cream RxNorm: 450327 1 Application TOP BID 08/17/2016 08/30/2016 Inactive deliver to [facility] please Pepcid 20 mg tablet RxNorm: 431646 TAKE ONE TABLET BY MOUTH TWICE A DAY 07/12/2016 12/26/2017 Inactive omega-3 acid ethyl esters 1 gram capsule RxNorm: 530507 3 Capsule(s) PO daily 06/18/2016 12/14/2016 Inactive omega-3 acid ethyl esters 1 gram capsule RxNorm: 317723 3 Capsule(s) PO daily 06/18/2016 06/17/2016 Inactive trazodone 50 mg tablet RxNorm: 666787 TAKE ONE TABLET BY MOUTH AT BEDTIME 06/08/2016 08/06/2016 Inactive tamsulosin 0.4 mg capsule RxNorm: 535942 Capsule(s) TAKE ONE CAPSULE BY MOUTH EVERY EVENING 06/04/2016 12/30/2016 Inactive hydrochlorothiazide 25 mg tablet RxNorm: 707243 TAKE ONE TABLET BY MOUTH DAILY 05/10/2016 05/09/2016 Inactive hydrochlorothiazide 25 mg tablet RxNorm: 229406 TAKE ONE TABLET BY MOUTH DAILY 05/10/2016 02/12/2018 Inactive Pepcid 20 mg tablet RxNorm: 082769 1 Tablet(s) PO BID 03/18/2016 03/17/2016 Inactive Pepcid 20 mg tablet RxNorm: 671817 1 Tablet(s) PO BID 03/18/2016 07/11/2016 Inactive lisinopril 20 mg tablet RxNorm: 015776 TAKE ONE TABLET BY MOUTH DAILY 03/18/2016 08/14/2016 Inactive Vitamin D3 5,000 unit tablet RxNorm: 915247 Tablet(s) TAKE ONE TABLET BY MOUTH DAILY 03/18/2016 09/13/2016 Inactive trazodone 50 mg tablet RxNorm: 380320 TAKE ONE TABLET BY MOUTH AT BEDTIME 03/15/2016 06/07/2016 Inactive Vesicare 10 mg tablet RxNorm: 066429 1 Tablet(s) PO QHS 03/15/2016 02/07/2017 Inactive meloxicam 15 mg tablet RxNorm: 418902 TAKE ONE TABLET BY MOUTH DAILY 03/01/2016 01/24/2017 Inactive Bactrim DS 800 mg-160 mg tablet RxNorm: 632190 1 Tablet(s) PO BID 02/10/2016 02/09/2016 Inactive Bactrim DS 800 mg-160 mg tablet RxNorm: 803851 1 Tablet(s) PO BID 02/10/2016 02/16/2016 Inactive Cipro 500 mg tablet RxNorm: 006619 1 Tablet(s) PO BID 02/06/2016 02/09/2016 Inactive Cipro 500 mg tablet RxNorm: 872143 1 Tablet(s) PO BID 02/06/2016 02/05/2016 Inactive [place] 20 mg/gram/actuation (2 %) topical soln in metered- dose pump RxNorm: 1874780 2 pumps TOP BID 01/19/2016 04/19/2016 Inactive tamsulosin 0.4 mg capsule RxNorm: 451039 TAKE ONE CAPSULE BY MOUTH EVERY EVENING 01/12/2016 06/03/2016 Inactive cyanocobalamin (vit B-12) 1,000 mcg/mL injection solution RxNorm: 053299 INJECT 1 ML INTRAMUSCULARLY MONTHLY 01/01/2016 10/26/2016 Inactive Request already responded to by other means (e.g. phone or fax) Vitamin B-12 1,000 mcg/mL injection solution RxNorm: 448382 1 Milliliter(s) Inj monthly 12/24/2015 04/19/2016 Inactive please give syringes for injections Vitamin D3 5,000 unit tablet RxNorm: 533856 TAKE ONE TABLET BY MOUTH DAILY 12/08/2015 03/06/2016 Inactive pantoprazole 40 mg tablet,delayed release RxNorm: 307395 TAKE ONE TABLET BY MOUTH DAILY 12/08/2015 03/17/2016 Inactive trazodone 50 mg tablet RxNorm: 624923 TAKE ONE TABLET BY MOUTH AT BEDTIME 11/10/2015 03/08/2016 Inactive lisinopril 20 mg tablet RxNorm: 517338 TAKE ONE TABLET BY MOUTH DAILY 09/08/2015 03/05/2016 Inactive Vitamin D3 5,000 unit tablet RxNorm: 351722 1 Tablet(s) PO daily 08/12/2015 12/07/2015 Inactive pantoprazole 40 mg tablet,delayed release RxNorm: 382668 1 Tablet(s) PO daily 08/12/2015 12/07/2015 Inactive tamsulosin 0.4 mg capsule RxNorm: 717397 TAKE ONE CAPSULE BY MOUTH EVERY EVENING 07/21/2015 12/17/2015 Inactive trazodone 50 mg tablet RxNorm: 229879 TAKE ONE TABLET BY MOUTH AT BEDTIME 05/09/2015 10/05/2015 Inactive hydrochlorothiazide 25 mg tablet RxNorm: 333584 1 Tablet(s) PO QA 04/30/2015 04/29/2015 Inactive hydrochlorothiazide 25 mg tablet RxNorm: 120657 TAKE ONE TABLET BY MOUTH DAILY 04/30/2015 02/12/2018 Inactive pantoprazole 40 mg tablet,delayed release RxNorm: 252235 1 Tablet(s) PO daily 04/16/2015 08/11/2015 Inactive meloxicam 15 mg tablet RxNorm: 961491 TAKE ONE TABLET BY MOUTH DAILY 03/03/2015 02/25/2016 Inactive lisinopril 20 mg tablet RxNorm: 862526 1 Tablet(s) PO daily 02/19/2015 09/07/2015 Inactive tamsulosin 0.4 mg capsule RxNorm: 570065 TAKE ONE CAPSULE BY MOUTH EVERY EVENING 01/20/2015 07/18/2015 Inactive cyanocobalamin (vit B-12) 1,000 mcg/mL injection solution RxNorm: 551627 Milliliter(s) INJECT 1ML INTRAMUSCULARLY MONTHLY 12/12/2014 12/22/2014 Inactive trazodone 50 mg tablet RxNorm: 704388 TAKE ONE TABLET BY MOUTH AT BEDTIME 11/14/2014 05/08/2015 Inactive erythromycin 5 mg/gram (0.5 %) eye ointment RxNorm: 825889 1/2 inch OPH QID 11/05/2014 11/14/2014 Inactive acyclovir 800 mg tablet RxNorm: 484242 1 Tablet(s) PO TID 11/05/2014 11/18/2014 Inactive Zofran 4 mg tablet RxNorm: 528525 1 Tablet(s) PO Q4H as needed nausea 11/05/2014 01/03/2015 Inactive Duragesic 12 mcg/hr transdermal patch RxNorm: 705190 1 Patch TD Q72H 11/05/2014 02/04/2015 Inactive Imitrex 100 mg tablet RxNorm: 895694 1 Tablet(s) PO q 12 hours 11/04/2014 04/15/2015 Inactive naproxen 500 mg tablet RxNorm: 979309 1 Tablet(s) PO BID 10/30/2014 11/01/2014 Inactive meloxicam 15 mg tablet RxNorm: 009823 TAKE ONE TABLET BY MOUTH DAILY 10/04/2014 03/02/2015 Inactive Vesicare 5 mg tablet RxNorm: 836145 TAKE ONE TABLET BY MOUTH AT BEDTIME 09/16/2014 07/16/2015 Inactive Vitamin D2 50,000 unit capsule RxNorm: 476209 1 Capsule(s) PO QW 09/06/2014 07/16/2015 Inactive once weekly x 12 weeks tamsulosin ER 0.4 mg capsule,extended release 24 hr RxNorm: 357579 TAKE ONE CAPSULE BY MOUTH EVERY EVENING 06/24/2014 12/20/2014 Inactive tamsulosin ER 0.4 mg capsule,extended release 24 hr RxNorm: 164307 1 Capsule(s) PO QPM 06/24/2014 01/19/2015 Inactive Vitamin D2 50,000 unit capsule RxNorm: 911259 1 Capsule(s) PO QW 05/27/2014 09/05/2014 Inactive once weekly x 12 weeks Vesicare 5 mg tablet RxNorm: 534757 1 Tablet(s) PO QHS 05/23/2014 05/22/2014 Inactive Vesicare 5 mg tablet RxNorm: 032257 1 Tablet(s) PO QHS 05/23/2014 09/15/2014 Inactive trazodone 50 mg tablet RxNorm: 547338 TAKE ONE TABLET BY MOUTH AT BEDTIME 05/13/2014 11/08/2014 Inactive trazodone 50 mg tablet RxNorm: 982901 TAKE ONE TABLET BY MOUTH AT BEDTIME 05/13/2014 11/08/2014 Inactive hydrochlorothiazide 25 mg tablet RxNorm: 658132 1 Tablet(s) PO QAM 04/18/2014 01/12/2015 Inactive Vitamin D2 50,000 unit capsule RxNorm: 760945 TAKE ONE CAPSULE BY MOUTH ONCE WEEKLY FOR 12 WEEKS 04/09/2014 05/14/2014 Inactive trazodone 50 mg tablet RxNorm: 374667 1 Tablet(s) PO QHS 02/22/2014 05/12/2014 Inactive trazodone 50 mg tablet RxNorm: 487010 1 Tablet(s) PO QHS 02/22/2014 02/21/2014 Inactive Vitamin D2 50,000 unit capsule RxNorm: 058411 TAKE ONE CAPSULE BY MOUTH ONCE WEEKLY FOR 12 WEEKS 02/07/2014 03/06/2014 Inactive meloxicam 15 mg tablet RxNorm: 450823 TAKE ONE TABLET BY MOUTH ONCE A DAY 02/07/2014 08/05/2014 Inactive meloxicam 15 mg tablet RxNorm: 706813 TAKE ONE TABLET BY MOUTH ONCE A DAY 02/07/2014 2014 Inactive clotrimazole 1 % topical cream RxNorm: 498735 1 Application TOP BID 12/25/2013 07/16/2015 Inactive Diflucan 150 mg tablet RxNorm: 012435 1 Tablet(s) PO daily 12/25/2013 12/31/2013 Inactive tamsulosin ER 0.4 mg capsule,extended release 24 hr RxNorm: 266287 1 Capsule(s) PO QPM 11/28/2013 06/23/2014 Inactive cyanocobalamin (vit B-12) 1,000 mcg/mL injection solution RxNorm: 625265 1 Milliliter(s) Inj 11/28/2013 12/12/2014 Inactive Vitamin B-12 1,000 mcg/mL injection solution RxNorm: 890914 1 Milliliter(s) Inj monthly 11/21/2013 02/13/2015 Inactive please give syringes for injections Vitamin D2 50,000 unit capsule RxNorm: 256271 1 Capsule(s) PO QW x 12 weeks 11/21/2013 02/06/2014 Inactive [SAVINGS FOR UNINSURED PATIENTS -- to take addtional 2000 units daily Vitamin B-12 1,000 mcg/mL injection solution RxNorm: 387762 1 Milliliter(s) Inj monthly 11/21/2013 11/20/2013 Inactive meloxicam 15 mg tablet RxNorm: 106148 1 Tablet(s) PO daily 11/20/2013 11/19/2013 Inactive [SAVINGS FOR UNINSURED PATIENTS -- BIN:[id number], PCN: [id number], Group: [id number], ID# [id number], Process claim through [employer], for questions: . THIS IS NOT INSURANCE.] meloxicam 15 mg tablet RxNorm: 376209 1 Tablet(s) PO daily 11/20/2013 02/06/2014 Inactive [SAVINGS FOR UNINSURED PATIENTS -- BIN:[id number], PCN: [id number], Group: [id number], ID# [id number], Process claim through [employer], for questions: . THIS IS NOT INSURANCE.] meloxicam 15 mg tablet RxNorm: 233485 1 Tablet(s) PO daily 11/20/2013 11/19/2013 Inactive Voltaren 1 % topical gel RxNorm: 009506 4 Application TOP QID apply to back, affected joints four times daily 11/14/2013 11/20/2013 Inactive Iron (ferrous sulfate) 325 mg (65 mg iron) tablet RxNorm: 009655 1 Tablet(s) PO daily No Start Date Active trazodone 50 mg tablet RxNorm: 779931 1 Tablet(s) PO QHS No Start Date Active Vitamin D2 50,000 unit capsule RxNorm: 883107 1 Capsule(s) PO QW No Start Date 05/26/2014 Inactive once weekly x 12 weeks Zithromax Z-Brian 250 mg tablet RxNorm: 351918 1 Tablet(s) PO UD No Start Date 02/06/2018 Inactive Vitamin D2 50,000 unit capsule RxNorm: 197464 1 Capsule(s) PO QW No Start Date 11/20/2013 Inactive gabapentin 300 mg capsule RxNorm: 754184 1 Capsule(s) PO TID No Start Date 03/28/2017 Inactive Vesicare 10 mg tablet RxNorm: 457045 1 Tablet(s) PO QHS No Start Date 03/14/2016 Inactive Toprol XL 25 mg tablet,extended release RxNorm: 162532 1 Tablet(s) PO daily No Start Date 04/19/2018 Inactive Vitamin D3 5,000 unit tablet RxNorm: 449567 1 Tablet(s) PO daily No Start Date 08/11/2015 Inactive Celebrex 200 mg capsule RxNorm: 912865 1 Capsule(s) PO BID No Start Date 07/19/2016 Inactive Imitrex 50 mg tablet RxNorm: 397483 1 Tablet(s) PO now and may repeat up to four times in 24 hours No Start Date 11/03/2014 Inactive Zofran 4 mg tablet RxNorm: 856516 1 Tablet(s) PO Q8 as needed nausea and vomitting No Start Date 10/15/2015 Inactive ranitidine 150 mg tablet RxNorm: 935626 1 Tablet(s) PO BID No Start Date 02/12/2018 Inactive Phenergan 25 mg tablet RxNorm: 502246 1 Tablet(s) PO now No Start Date 04/15/2015 Inactive Tums oral RxNorm: 997431 oral No Start Date 10/15/2015 Inactive Medication Administered Medication Codes Instructions Start Date Status Kenalog 40 mg/mL suspension for injection RxNorm: 0467331 1Milliliter 09/07/2017 No longer Active cyanocobalamin (vit B-12) 1,000 mcg/mL injection solution RxNorm: 396011 1Milliliter 11/28/2013 No longer Active Immunizations Vaccine Codes Date Status Influenza CVX: 141 04/06/2017 completed PPD Unknown 07/03/2015 completed Zoster CVX: 121 11/29/2014 completed Influenza CVX: 141 03/26/2013 completed Assessments Condition Codes Effective Dates Muscle weakness (generalized) ICD-10: M62.81 ICD-9: 728.87 [...] Tinea pedis ICD-10: B35.3 ICD-9: 110.4 05/19/2017 Rash and other nonspecific skin eruption ICD-10: R21 ICD-9: 782.1 05/09/2017 Body mass index (BMI) 36.0-36.9, adult ICD-10: [...] Reason For Visit Effective Dates Notes hypertension 08/21/2018 rash 06/27/2018 shoulder pain 04/20/2018 [...] recently went to an eye doctor in [place]. Reports that he did have hemorrhaging in his right eye which is getting better. headache 04/18/2014 Pt states he recently went to an eye doctor in [place] shortness of breath 02/21/2014 blisters 12/25/2013 insomnia 11/28/2013 back pain 11/14/2013 Results Observation Observation Code Item Item Code Result Date Vitamin D 25 Oh [id number] VITAMIN D, 25 HYDROXY 66.80 ng/mL 03/14/2018 [...] 28.5 pg 03/14/2018 Cbc With Differential Ord2 [place]% 7.6 % 03/14/2018 Cbc With Differential Ord2 [...] 1.28 K/ul 03/14/2018 Cbc With Differential Ord2 [place] ABS# 0.4 K/ul 03/14/2018 Cbc With Differential [...] Lipid Ord30 C/HDL 5.0 Ratio 06/27/2017 %Hba1C Kar526 % HbA1c 19737- 6 6.2 % 06/27/2017 %Hba1C Fvc941 Gluc Ave 131 mg/dL 06/27/2017 Comp Metabolic Xeu583 NA 140 mEq/L 06/27/2017 Comp Metabolic Rfw578 K 4.2 mEq/L 06/27/2017 Comp Metabolic Ztl565 CL 100 mEq/L 06/27/2017 Comp Metabolic Abj992 CO2 32.0 mEq/L 06/27/2017 Comp Metabolic Yha973 ANION GAP 12 06/27/2017 Comp Metabolic Tdq135 GLUCOSE 118 mg/dL 06/27/2017 Comp Metabolic Vfp938 Creat 1.0 mg/dL 06/27/2017 Comp Metabolic Utn081 eGFR 82 ml/min/1.73m2 06/27/2017 Comp Metabolic Uda238 BUN 26 mg/dL 06/27/2017 Comp Metabolic Qvq900 B/C Ratio 27.1 Ratio 06/27/2017 Comp Metabolic Bvr272 CALCIUM 9.6 mg/dL 06/27/2017 Comp Metabolic Rwy009 ALK PHOS 46 U/L 06/27/2017 Comp Metabolic Ahe114 AST(SGOT) 23 U/L 06/27/2017 Comp Metabolic Ujz633 ALT(SGPT) 31 U/L 06/27/2017 Comp Metabolic Scu982 BILI T 0.5 mg/dL 06/27/2017 Comp Metabolic Uxw361 ALBUMIN 4.2 g/dL 06/27/2017 Comp Metabolic Cks205 TPRO 6.6 g/dL 06/27/2017 Comp Metabolic Dqv998 GLOB 2.4 g/dL 06/27/2017 Comp Metabolic Zjk477 A/G Ratio 1.7 Ratio 06/27/2017 Comp Metabolic Txt454 Osmo 285 mOsmo 06/27/2017 Cbc With Differential [...] 29.0 pg 10/20/2016 Cbc With Differential Ord2 [place]% 9.0 % 10/20/2016 Cbc With Differential Ord2 [...] 1.33 K/ul 10/20/2016 Cbc With Differential Ord2 [place] ABS# 0.4 K/ul 10/20/2016 Cbc With Differential Ord2 [place] ABS# 0.2 K/ul 10/20/2016 Cbc With Differential Ord2 Baso ABS# 0.0 K/ul 10/20/2016 Comp Metabolic Lvj909 NA 143 mEq/L 10/20/2016 Comp Metabolic Obx145 K 4.6 mEq/L 10/20/2016 Comp Metabolic Ulk064 CL 104 mEq/L 10/20/2016 Comp Metabolic Pwp517 CO2 31.0 mEq/L 10/20/2016 Comp Metabolic Lhu538 ANION GAP 13 10/20/2016 Comp Metabolic Agw300 GLUCOSE 117 mg/dL 10/20/2016 Comp Metabolic Tbn047 Creat 1.1 mg/dL 10/20/2016 Comp Metabolic Voa472 eGFR 74 ml/min/1.73m2 10/20/2016 Comp Metabolic Ery061 BUN 27 mg/dL 10/20/2016 Comp Metabolic Znt254 B/C Ratio 25.7 Ratio 10/20/2016 Comp Metabolic Yyl347 CALCIUM 9.3 mg/dL 10/20/2016 Comp Metabolic Kle785 ALK PHOS 47 U/L 10/20/2016 Comp Metabolic Stk156 AST(SGOT) 18 U/L 10/20/2016 Comp Metabolic Lxf584 ALT(SGPT) 22 U/L 10/20/2016 Comp Metabolic Rjx189 BILI T 0.5 mg/dL 10/20/2016 Comp Metabolic Lbw232 ALBUMIN 3.9 g/dL 10/20/2016 Comp Metabolic Rnl921 TPRO 6.5 g/dL 10/20/2016 Comp Metabolic Lkz701 GLOB 2.6 g/dL 10/20/2016 Comp Metabolic Knb932 A/G Ratio 1.5 Ratio 10/20/2016 Comp Metabolic Sys966 Osmo 291 mOsmo 10/20/2016 Tsh Ord6 hTSH II 1.56 uIU/mL 10/20/2016 Lipid Ord30 CHOL 153 mg/dL 10/20/2016 Lipid Ord30 HDL 34.0 mg/dl 10/20/2016 Lipid Ord30 TRIG 123 mg/dL 10/20/2016 Lipid Ord30 LDL 94 mg/dL 10/20/2016 Lipid Ord30 C/HDL 4.5 Ratio 10/20/2016 B12 Hbs098 B12 544.00 pg/ml 10/20/2016 Comp Metabolic Oih427 NA 138 mEq/L 05/13/2016 Comp Metabolic Hfz009 K 4.2 mEq/L 05/13/2016 Comp Metabolic Lst883 CL 102 mEq/L 05/13/2016 Comp Metabolic Nsp002 CO2 30.0 mEq/L 05/13/2016 Comp Metabolic Bmc722 ANION GAP 10 05/13/2016 Comp Metabolic Uan514 GLUCOSE 113 mg/dL 05/13/2016 Comp Metabolic Oia710 Creat 1.0 mg/dL 05/13/2016 Comp Metabolic Sxe852 eGFR 77 ml/min/1.73m2 05/13/2016 Comp Metabolic Mkn783 BUN 26 mg/dL 05/13/2016 Comp Metabolic Sfe712 B/C Ratio 25.5 Ratio 05/13/2016 Comp Metabolic Qmr643 CALCIUM 9.7 mg/dL 05/13/2016 Comp Metabolic Ral001 ALK PHOS 51 U/L 05/13/2016 Comp Metabolic Mbe476 AST(SGOT) 17 U/L 05/13/2016 Comp Metabolic Tcn312 ALT(SGPT) 20 U/L 05/13/2016 Comp Metabolic Fyh699 BILI T 0.6 mg/dL 05/13/2016 Comp Metabolic Iwc946 ALBUMIN 4.0 g/dL 05/13/2016 Comp Metabolic Fyo370 TPRO 6.6 g/dL 05/13/2016 Comp Metabolic Pvo963 GLOB 2.6 g/dL 05/13/2016 Comp Metabolic Cvm735 A/G Ratio 1.6 Ratio 05/13/2016 Comp Metabolic Xzj854 Osmo 281 mOsmo 05/13/2016 Lipid Ord30 CHOL [...] 29.3 pg 02/11/2016 Cbc With Differential Ord2 [place]% 7.7 % 02/11/2016 Cbc With Differential Ord2 [...] 1.18 K/ul 02/11/2016 Cbc With Differential Ord2 [place] ABS# 0.4 K/ul 02/11/2016 Cbc With Differential Ord2 [place] ABS# 0.1 K/ul 02/11/2016 Cbc With Differential Ord2 Baso ABS# 0.0 K/ul 02/11/2016 Comp Metabolic Qpr073 NA 138 mEq/L 02/11/2016 Comp Metabolic Vti477 K 4.0 mEq/L 02/11/2016 Comp Metabolic Yul414 CL 97 mEq/L 02/11/2016 Comp Metabolic Xll462 CO2 32.0 mEq/L 02/11/2016 Comp Metabolic Cxu446 ANION GAP 13 02/11/2016 Comp Metabolic Xbd947 GLUCOSE 117 mg/dL 02/11/2016 Comp Metabolic Ooh676 Creat 1.0 mg/dL 02/11/2016 Comp Metabolic Ary690 eGFR 81 ml/min/1.73m2 02/11/2016 Comp Metabolic Phr203 BUN 21 mg/dL 02/11/2016 Comp Metabolic Bay454 B/C Ratio 21.4 Ratio 02/11/2016 Comp Metabolic Kld861 CALCIUM 9.2 mg/dL 02/11/2016 Comp Metabolic Nol086 ALK PHOS 48 U/L 02/11/2016 Comp Metabolic Pbn800 AST(SGOT) 18 U/L 02/11/2016 Comp Metabolic Vlj610 ALT(SGPT) 22 U/L 02/11/2016 Comp Metabolic Guf305 BILI T 0.5 mg/dL 02/11/2016 Comp Metabolic Pkp590 ALBUMIN 3.9 g/dL 02/11/2016 Comp Metabolic Jcc316 TPRO 6.3 g/dL 02/11/2016 Comp Metabolic Pkk179 GLOB 2.5 g/dL 02/11/2016 Comp Metabolic Est612 A/G Ratio 1.6 Ratio 02/11/2016 Comp Metabolic Lnk893 Osmo 280 mOsmo 02/11/2016 Lipid Ord30 CHOL 163 mg/dL 02/11/2016 Lipid Ord30 HDL 35.0 mg/dl 02/11/2016 Lipid Ord30 TRIG 200 mg/dL 02/11/2016 Lipid Ord30 LDL 88 mg/dL 02/11/2016 Lipid Ord30 C/HDL 4.7 Ratio 02/11/2016 %Hba1C Dft368 % HbA1c 01767- 6 6.5 % 02/11/2016 %Hba1C Ejj686 Gluc Ave 140 mg/dL 02/11/2016 Tsh Ord6 hTSH II 2.07 uIU/mL 02/11/2016 B12 Gdu661 B12 563.00 pg/ml 02/11/2016 Culture Urine [id number] URINE CULTURE SEE NOTES 02/10/2016 Culture Urine [id number] Continued Results 02/10/2016 Urine Culture Ucult Complete [...] hours from collection if refrigerated) 11/04/2015 %Hba1C Rng187 % HbA1c 04626- 6 6.4 % 04/16/2015 %Hba1C Nhv079 Gluc Ave 137 mg/dL 04/16/2015 Tsh Ord6 hTSH II 3.33 uIU/mL 02/07/2015 Comp Metabolic Vov622 NA 136 mEq/L 02/07/2015 Comp Metabolic Iuu538 K 3.9 mEq/L 02/07/2015 Comp Metabolic Qdu627 CL 98 mEq/L 02/07/2015 Comp Metabolic Rjp045 CO2 31.0 mEq/L 02/07/2015 Comp Metabolic Wco686 ANION GAP 11 02/07/2015 Comp Metabolic Cnb775 GLUCOSE 139 mg/dL 02/07/2015 Comp Metabolic Pnx500 Creat 0.9 mg/dL 02/07/2015 Comp Metabolic Ceu983 eGFR 87 ml/min/1.73m2 02/07/2015 Comp Metabolic Yyx124 BUN 20 mg/dL 02/07/2015 Comp Metabolic Hdm985 B/C Ratio 21.7 Ratio 02/07/2015 Comp Metabolic Xmh804 CALCIUM 9.7 mg/dL 02/07/2015 Comp Metabolic Vvi106 ALK PHOS 55 U/L 02/07/2015 Comp Metabolic Lnm674 AST(SGOT) 20 U/L 02/07/2015 Comp Metabolic Eyu155 ALT(SGPT) 27 U/L 02/07/2015 Comp Metabolic Vuz730 BILI T 0.5 mg/dL 02/07/2015 Comp Metabolic Dak362 ALBUMIN 4.3 g/dL 02/07/2015 Comp Metabolic Wlt948 TPRO 6.9 g/dL 02/07/2015 Comp Metabolic Bwp312 GLOB 2.6 g/dL 02/07/2015 Comp Metabolic Vpb777 A/G Ratio 1.7 Ratio 02/07/2015 Comp Metabolic Zuu072 Osmo 277 mOsmo 02/07/2015 Cbc With Differential [...] Ord2 RDW 14.8 % 02/07/2015 A1C HPLC 0753805 A1C HPLC 63281-8 6.0 % 05/23/2014 VIT B 12 [id number] VIT B 12 479 PG/ML 05/23/2014 VIT D TOTL 1445952 VIT D TOTL 29 NG/ML 05/23/2014 Review of Systems System Result Effective Dates Constitutional No recent illness 08/21/2018 Constitutional No [...] rhythm 09/07/2017 None Full Exam - General 1995 [...] clear 06/07/2017 None Full Exam - General 1995 Eyes conjunctiva/eyelids Overall: eyelids normal 06/07/2017 None [...] palpation 02/21/2014 None Full Exam - General 1995 Musculoskeletal [...] Date TRIAMCINOLONE ACET INJ NOS CPT-4: J3301 02/08/2018 PPPS, SUBSEQ VISIT CPT- 4: G0439 12/27/2017 THER/PROPH/DIAG INJ SC/IM CPT-4: 90732 09/07/2017 TRIAMCINOLONE ACET INJ NOS CPT-4: J3301 09/07/2017 ROUTINE VENIPUNCTURE CPT- 4: 73754 05/23/2014 THER/PROPH/DIAG INJ SC/IM CPT-4: 34503 11/28/2013 VITAMIN B12 INJECTION CPT- 4: J3420 11/28/2013 Vital Signs Date Vital 08/21/2018 Blood Pressure 1: 110/66 Code: 8480-6 BMI: 36.6 Code: 06381-1 Heart Rate 1: 70 bpm Height: 6' SpO2: 93% Weight: 270 lbs 06/27/2018 Blood Pressure 1: 124/70 Code: 8480-6 BMI: 36.6 Code: 83328-2 Heart Rate 1: 64 bpm Height: 6' SpO2: 96% Weight: 270 lbs 04/20/2018 Blood Pressure 1: 126/74 Code: 8480-6 BMI: 36.6 Code: 51011-4 Heart Rate 1: 60 bpm Height: 6' SpO2: 94% Weight: 270 lbs 03/21/2018 Blood Pressure 1: 138/74 Code: 8480-6 BMI: 36.8 Code: 46001-1 Heart Rate 1: 81 bpm Height: 6' SpO2: 98% Weight: 271 lbs 02/08/2018 Blood Pressure 1: 132/74 Code: 8480-6 BMI: 37.0 Code: 31582-2 Heart Rate 1: 82 bpm Height: 6' SpO2: 97% Weight: 273 lbs 12/27/2017 Blood Pressure 1: 148/78 Code: 8480-6 BMI: 36.3 Code: 99369-2 Heart Rate 1: 78 bpm Height: 6' SpO2: 93% Waist Measure (cm): 117 cm Weight: 268 lbs 12/06/2017 Blood Pressure 1: 122/70 Code: 8480-6 BMI: 36.6 Code: 24863-7 Heart Rate 1: 76 bpm Height: 6' SpO2: 93% Weight: 270 lbs 11/01/2017 BMI: 36.9 Code: 74199-5 Height: 6' Weight: 272 lbs 09/07/2017 Blood Pressure 1: 140/78 Code: 8480-6 BMI: 35.8 Code: 15274-0 Heart Rate 1: 76 bpm Height: 6' SpO2: 98% Weight: 264 lbs 06/07/2017 Blood Pressure 1: 138/86 Code: 8480-6 BMI: 36.3 Code: 58225-6 Heart Rate 1: 66 bpm Height: 6' SpO2: 95% Weight: 268 lbs 05/19/2017 Blood Pressure 1: 152/84 Code: 8480-6 BMI: 36.8 Code: 56866-9 Heart Rate 1: 70 bpm Height: 6' SpO2: 93% Weight: 271 lbs 05/09/2017 Blood Pressure 1: 138/76 Code: 8480-6 BMI: 36.6 Code: 26811-8 Heart Rate 1: 79 bpm Height: 6' SpO2: 93% Weight: 270 lbs 04/25/2017 Blood Pressure 1: 150/80 Code: 8480-6 Heart Rate 1: 58 bpm Height: SpO2: 94% Weight: 2017 Blood Pressure 1: 138/80 Code: 8480-6 BMI: 36.5 Code: 21563-9 Heart Rate 1: 76 bpm Height: 6' SpO2: 96% Weight: 269 lbs 03/29/2017 Blood Pressure 1: 118/68 Code: 8480-6 BMI: 36.9 Code: 87849-5 Heart Rate 1: 61 bpm Height: 6' SpO2: 95% Weight: 272 lbs 03/17/2017 Blood Pressure 1: 140/78 Code: 8480-6 BMI: 36.8 Code: 28971-5 Heart Rate 1: 91 bpm Height: 6' SpO2: 93% Weight: 271 lbs 03/08/2017 Blood Pressure 1: 152/84 Code: 8480-6 BMI: 36.8 Code: 00643-5 Heart Rate 1: 72 bpm Height: 6' SpO2: 92% Temperature: 36.6 (C) / 97.8 (F) Weight: 271 lbs 02/17/2017 Blood Pressure 1: 110/64 Code: 8480-6 BMI: 36.5 Code: 42670-2 Heart Rate 1: 62 bpm Height: 6' SpO2: 96% Weight: 269 lbs 01/18/2017 Blood Pressure 1: 140/80 Code: 8480-6 BMI: 36.5 Code: 15261-6 Heart Rate 1: 62 bpm Height: 6' SpO2: 94% Weight: 269 lbs 10/19/2016 Blood Pressure 1: 120/80 Code: 8480-6 BMI: 35.9 Code: 40433-6 Heart Rate 1: 64 bpm Height: 6' SpO2: 97% Weight: 265 lbs 08/17/2016 Blood Pressure 1: 112/76 Code: 8480-6 BMI: 36.1 Code: 97643-2 Heart Rate 1: 65 bpm Height: 6' SpO2: 97% Weight: 266 lbs 07/20/2016 Blood Pressure 1: 126/78 Code: 8480-6 BMI: 35.5 Code: 54637-9 Heart Rate 1: 60 bpm Height: 6' SpO2: 95% Weight: 262 lbs 04/19/2016 Blood Pressure 1: 132/78 Code: 8480-6 BMI: 35.1 Code: 55942-2 Heart Rate 1: 65 bpm Height: 6' SpO2: 98% Weight: 259 lbs 01/19/2016 Blood Pressure 1: 140/64 Code: 8480-6 BMI: 34.4 Code: 51528-0 Heart Rate 1: 61 bpm Height: 6' SpO2: 97% Weight: 254 lbs 10/16/2015 Blood Pressure 1: 108/66 Code: 8480-6 BMI: 35.3 Code: 22516-6 Heart Rate 1: 65 bpm Height: 6' SpO2: 96% Weight: 260 lbs 07/17/2015 Blood Pressure 1: 136/74 Code: 8480-6 BMI: 35.8 Code: 07567-9 Heart Rate 1: 59 bpm Height: 6' SpO2: 97% Weight: 263 lbs 13 oz 07/03/2015 Weight: 265 lbs 04/16/2015 Blood Pressure 1: 130/82 Code: 8480-6 BMI: 36.1 Code: 17017-5 Heart Rate 1: 7694 bpm Height: 6' SpO2: 94% Weight: 266 lbs 02/19/2015 Blood Pressure 1: 160/90 Code: 8480-6 BMI: 35.8 Code: 49991-4 Heart Rate 1: 78 bpm Height: 6' SpO2: 94% Weight: 264 lbs 11/20/2014 Blood Pressure 1: 140/96 Code: 8480-6 BMI: 34.6 Code: 34922-8 Heart Rate 1: 92 bpm Height: 6' SpO2: 95% Weight: 255 lbs 11/05/2014 Blood Pressure 1: 132/70 Code: 8480-6 BMI: 34.6 Code: 01933-2 Heart Rate 1: 96 bpm Height: 6' SpO2: 98% Weight: 255 lbs 09/19/2014 Blood Pressure 1: 152/86 Code: 8480-6 BMI: 35.8 Code: 05367-6 Heart Rate 1: 82 bpm Height: 6' SpO2: 95% Weight: 264 lbs 07/24/2014 Blood Pressure 1: 142/82 Code: 8480-6 BMI: 34.7 Code: 74718-9 Heart Rate 1: 72 bpm Height: 6' Weight: 256 lbs 05/23/2014 Blood Pressure 1: 150/82 Code: 8480-6 BMI: 33.4 Code: 00769-1 Heart Rate 1: 68 bpm Height: 6' Weight: 246 lbs 04/18/2014 Blood Pressure 1: 132/84 Code: 8480-6 BMI: 33.2 Code: 42606-4 Heart Rate 1: 80 bpm Height: 6' Weight: 245 lbs 02/21/2014 Blood Pressure 1: 138/82 Code: 8480-6 BMI: 32.4 Code: 79893-7 Heart Rate 1: 85 bpm Height: 6' SpO2: 98% Weight: 239 lbs 12/25/2013 Blood Pressure 1: 146/80 Code: 8480-6 BMI: 30.5 Code: 64490-1 Heart Rate 1: 100 bpm Height: 6' Weight: 225 lbs 11/28/2013 Blood Pressure 1: 120/64 Code: 8480-6 BMI: 30.4 Code: 87756-2 Heart Rate 1: 68 bpm Height: 6' Weight: 224 lbs 11/14/2013 Blood Pressure 1: 124/80 Code: 8480-6 BMI: 30.0 Code: 77029-9 Heart Rate 1: 76 bpm Height: 6' Weight: 221 lbs Functional Status No Functional Status data History of Present Illness Symptom Name Status Result Effective Date Notes Quality chronic 08/21/2018 None Quality unsteady 08/21/2018 [...] in readings 08/21/2018 -Checked at [facility] Pertinent Findings Denies dizziness 08/21/2018 None Pertinent [...] hemorrhaging and cataract getting worse,. Sees eye for that. cataract Location in the right [...] data Encounters Encounter Performer Location Codes Date ( 33999 EST. PATIENT, LEVEL IV Diagnosis: Essential (primary) hypertension[ICD10: I10] Diagnosis: Pain in right shoulder[ICD10: M25.511] Diagnosis: Muscle weakness (generalized)[ICD10: M62.81] Quyen Long MD, [facility] CPT-4: 16318 08/21/2018 36172 EST. PATIENT, LEVEL III Diagnosis: Tinea barbae and tinea capitis[ICD10: B35.0] Glory Long MD, [facility] CPT-4: 99629 06/27/2018 ([id number]) 62847 EST. 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 PATIENT, LEVEL III Diagnosis: Acute bronchitis due to other specified organisms[ICD10: J20.8] Antoinette Long MD, [facility] CPT-4: 92054 02/08/2018 ([id number]) 38607 EST. 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 PATIENT, LEVEL III Diagnosis: Essential (primary) hypertension[ICD10: I10] Diagnosis: Localized edema[ICD10: R60.0] Diagnosis: Cellulitis of left lower limb[ICD10: L03.116] Quyen Long MD [facility] CPT-4: 98123 06/07/2017 ([id number]) 71549 EST. 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 PATIENT, LEVEL II Diagnosis: Rash and other nonspecific skin eruption[ICD10: R21] Glory Long MD [facility] CPT-4: 24197 05/09/2017 ([id number]) 95660 EST. PATIENT, LEVEL II Diagnosis: Rash and other nonspecific skin eruption[ICD10: R21] Glory Long MD, [facility] CPT-4: 79337 04/25/2017 ([id number]) 28973 EST. PATIENT, LEVEL III Diagnosis: Cellulitis of left lower limb[ICD10: L03.116] Diagnosis: Rash and other nonspecific skin eruption[ICD10: R21] Glory Long MD, [facility] CPT-4: 74485 2017 ([id number]) 48356 EST. PATIENT, LEVEL III Diagnosis: Cellulitis of left lower limb[ICD10: L03.116] Diagnosis: Rash and other nonspecific skin eruption[ICD10: R21] Glory Long MD, [facility] CPT-4: 32660 03/29/2017 86800 EST. PATIENT, LEVEL IV Diagnosis: Cellulitis of left lower limb[ICD10: L03.116] Antoinette Long MD [facility] CPT-4: 43232 03/17/2017 ([id number]) 19166 EST. PATIENT, LEVEL III Diagnosis: Rash and other nonspecific skin eruption[ICD10: R21] Glory Long MD, [facility] CPT-4: 67434 03/08/2017 19117 EST. PATIENT, LEVEL IV Diagnosis: Essential (primary) hypertension[ICD10: I10] Diagnosis: Muscle weakness (generalized)[ICD10: M62.81] Diagnosis: Body mass index (BMI) 36.0-36.9, adult[ICD10: Z68.36] Diagnosis: Family history of ischemic heart disease and other diseases of the circulatory system[ICD10: Z82.49] Antoinette Long MD, [facility] CPT-4: 21665 02/17/2017 ([id number]) 66360 EST. PATIENT, LEVEL IV Diagnosis: Essential (primary) hypertension[ICD10: I10] Diagnosis: Muscle weakness (generalized)[ICD10: M62.81] Quyen Long MD, [facility] CPT-4: 71090 01/18/2017 ([id number]) 47698 EST. 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 PATIENT, LEVEL III Diagnosis: Pain in left shoulder[ICD10: M25.512] Diagnosis: Rash and other nonspecific skin eruption[ICD10: R21] Glory Long MD, [facility] CPT-4: 85569 08/17/2016 ([id number]) 68474 EST. PATIENT, LEVEL IV Diagnosis: Essential (primary) hypertension[ICD10: I10] Diagnosis: Pain in left shoulder[ICD10: M25.512] Quyen Long MD, [facility] CPT-4: 48384 07/20/2016 ([id number]) 77361 EST. 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 PATIENT, LEVEL IV Diagnosis: Essential (primary) hypertension[ICD10: I10] Diagnosis: Other abnormal glucose[ICD10: R73.09] Diagnosis: Gastro-esophageal reflux disease without esophagitis[ICD10: K21.9] Diagnosis: Obesity, unspecified[ICD10: E66.9] Quyen Long MD [facility] CPT- 4: 18969 04/16/2015 ([id number]) 28020 EST. PATIENT, LEVEL IV Diagnosis: ESSENTIAL HYPERTENSION[ICD9: 401.9] Diagnosis: OBESITY[ICD9: 278.00] Diagnosis: Post-polio limb muscle weakness[ICD9: 728.87] Quyen Long MD [facility] CPT-4: 65428 02/19/2015 ([id number]) 52001 EST. PATIENT, LEVEL IV Diagnosis: Shingles outbreak[ICD9: 053.9] Diagnosis: ESSENTIAL HYPERTENSION[ICD9: 401.9] Diagnosis: Earache[ICD9: 388.70] Quyen Long MD [facility] CPT-4: 11900 11/20/2014 ([id number]) 82258 EST. PATIENT, LEVEL III Diagnosis: Shingles outbreak[ICD9: 053.9] Diagnosis: Face pain[ICD9: 784.0] Diagnosis: Pain, eye, right[ICD9: 379.91] Quyen Long MD [facility] CPT-4: 78187 11/05/2014 ([id number]) 26814 EST. PATIENT, LEVEL V Diagnosis: Post-polio limb muscle weakness[ICD9: 728.87] Diagnosis: Post-polio syndrome[ICD9: 138] Diagnosis: Leg weakness[ICD9: 729.89] Diagnosis: Weakness[ICD9: 780.79] Diagnosis: Foot drop[ICD9: 736.79] Quyen Long MD [facility] CPT-4: 29486 09/19/2014 ([id number]) 61899 EST. PATIENT, LEVEL IV Diagnosis: ESSENTIAL HYPERTENSION[ICD9: 401.9] Diagnosis: Carotid bruit[ICD9: 785.9] Diagnosis: Seborrheic dermatitis[ICD9: 690.10] Diagnosis: Post-polio syndrome[ICD9: 138] Diagnosis: Vitamin D deficiency[ICD9: 268.9] Quyen Long MD, [facility] CPT- 4: 51305 07/24/2014 ([id number]) 36548 EST. PATIENT, LEVEL IV Diagnosis: Neck pain[ICD9: 723.1] Diagnosis: Post-polio syndrome[ICD9: 138] Diagnosis: Vitamin D deficiency[ICD9: 268.9] Diagnosis: Vitamin B12 deficiency[ICD9: 266.2] Diagnosis: Nocturia[ICD9: 788.43] Diagnosis: Leg weakness[ICD9: 729.89] Diagnosis: Elevated blood sugar[ICD9: 790.29] Glory Long MD, [facility] CPT- 4: 12493 05/23/2014 ([id number]) 33481 EST. PATIENT, LEVEL IV Diagnosis: ESSENTIAL HYPERTENSION[ICD9: 401.9] Diagnosis: HEADACHE[ICD9: 784.0] Diagnosis: EDEMA[ICD9: 782.3] Quyen Long MD, [facility] CPT-4: 38746 04/18/2014 15545 EST. PATIENT, LEVEL IV Diagnosis: Insomnia[ICD9: 780.52] Diagnosis: Post-polio syndrome[ICD9: 138] Diagnosis: Vitamin D deficiency[ICD9: 268.9] Diagnosis: Nocturnal hypoxemia[ICD9: 799.02] Glory Long MD, [facility] CPT- 4: 55120 02/21/2014 ([id number]) 33715 EST. PATIENT, LEVEL III Diagnosis: Tinea pedis[ICD9: 110.4] Diagnosis: Post-polio limb muscle weakness[ICD9: 728.87] Glory Long MD, [facility] CPT-4: 97405 12/25/2013 ([id number]) 84124 EST. PATIENT, LEVEL IV Diagnosis: Insomnia[ICD9: 780.52] Diagnosis: Vitamin B12 deficiency (dietary) anemia[ICD9: 281.1] Diagnosis: VITAMIN D DEFICIENCY[ICD9: 268.9] Diagnosis: Weakness[ICD9: 780.79] Quyen Long MD, [facility] CPT-4: 69603 11/28/2013 ([id number]) OFFICE/OUTPATIENT VISIT NEW Diagnosis: Post-polio limb muscle weakness[ICD9: 728.87] Diagnosis: Post-polio syndrome[ICD9: 138] Diagnosis: Insomnia[ICD9: 780.52] Diagnosis: Arrhythmia[ICD9: 427.9] Quyen Long MD, [facility] CPT-4: 64800 11/14/2013 Plan of Care Planned Activity Notes [...] - generalized due to Post-Polio syndrome. 08/21/2018 Patient Education: Patient Medication Summary Completed 08/21/2018 Patient Education: Hypertension Completed 08/21/2018 Visit Plan: Tinea barbae -rx for ketoconazole written and instructed patient on use -instructed patient to call or return to clinic if symptoms do not resolve or if any worse. Patient verbalized understanding of plan. 06/27/2018 Appointment: Glory Dalton WPtel: [address] [place], [place] [phone] (30 min) Complex 06/27/2018 Patient Education: Patient [...] his shoulder. 04/20/2018 Appointment: Quyen Long WPtel: [facility] (15 min) Moderate 04/20/2018 Patient Education: Patient Medication Summary Completed 04/20/2018 Patient Education: Hypertension Completed 04/20/2018 [phone] (15 min) Moderate 04/11/2018 Visit Plan: Post polio syndrome -right leg weakness -patient needs repair and adjustment of his right leg brace that helps with his symptoms of instability and weakness and allows him to ambulate -will send rx to [place] [facility] 03/21/2018 Appointment: Glory Dalton WPtel: [phone] [phone] [place] (15 min) Moderate 03/21/2018 Patient [...] Completed 12/27/2017 App[facility]ment[phone] [facility] (15 min) Moderate 12/08/2017 Visit Plan: [...] injection. 12/06/2017 App[facility]ment[phone] [facility] (15 min) Moderate 12/06/2017 Patient Education: [...] Appointment: Quyen Long WPtel: [facility] [place] [phone] (15 min) Moderate 09/07/2017 Patient [...] Appointment: Quyen Long WPtel: [facility] [place] [phone] (15 min) Moderate 06/07/2017 Patient Education: Patient [...] recommended. 05/19/2017 Appointment: Quyen Long WPtel: [phone] [phone] (15 min) Moderate 05/19/2017 Patient Education: Patient Medication Summary Completed 05/19/2017 Patient Education: Obesity Completed 05/19/2017 Patient Education: Hypertension Completed 05/19/2017 Visit Plan: Rash-left opqr-zhoctmzy-cremnondfg patient to continue using ketoconazole plus betamethasone equal parts and increase to TID-leave foot open to air as much as possible-follow up in 2 weeks, sooner if needed. 05/09/2017 Appointment: Glory Dalton WPtel: [phone] (30 min) Complex 05/09/2017 Patient Education: Patient Medication Summary Completed 05/09/2017 Patient Education: Obesity Completed 05/09/2017 Visit Plan: Rash-left foot-Dr Long in to evaluate rash-instructed patient to start using ketoconazole plus betamethasone equal parts TID -follow up in 2 weeks, sooner if needed. 04/25/2017 Appointment: Glory Dalton WPtel: [phone] (30 min) Complex 04/25/2017 Patient Education: Patient Medication Summary Completed 04/25/2017 Visit Plan: Cellulitis of left foot-no longer draining-no open areas-no excoriation-slightly red-okay to d/c all treatments-keep clean and monitor-call if redness does not resolve Rash-resolved 2017 Appointment: Glory Dalton WPtel: [phone] (30 min) Complex 2017 Patient Education: Patient Medication Summary Completed 2017 Patient Education: Obesity Completed 2017 Visit Plan: Cellulitis-left foot-MSSA hxnttfoz-aymqeehrf-avgiq air in the evening-continue bactroban ointment twice daily-stop using alcohol on foot-no papertowels or abrasives to foot Zqly-mxqz-qq for betamethasone provided and instructed on use 03/29/2017 Appointment: Glory Dalton WPtel: [phone] (30 min) Complex 03/29/2017 Patient Education: Patient Medication Summary Completed 03/29/2017 Patient Education: Obesity Completed 03/29/2017 Appointment: Glory Dalton WPtel: [phone] [phone] (30 min) Complex 03/22/2017 Visit Plan: [...] discharge. 03/17/2017 App[facility]ment[phone] (30 min) Complex 03/17/2017 Patient Education: Patient [...] Quyen Long WPtel: [phone] (15 min) Moderate 01/18/2017 Patient Education: Patient [...] and weakness. 10/19/2016 Appointment: Quyen Long WPtel: [facility] (15 min) Moderate 10/19/2016 Patient Education: Patient Medication Summary Completed 10/19/2016 Patient Education: Obesity Completed 10/19/2016 Visit Plan: Left shoulder pain-hospital f/u recent shoulder surgery with Dr Wilson-doing well-sees Dr Wilson this afternoon for suture removal-pain improved Dbwo-fjwb-uxzjqrp fungal infection-will treat with ket oconazole -follow up in 2 weeks 08/17/2016 Appointment: Glory Dalton WPtel: [phone] (30 min) Complex 08/17/2016 Patient Education: [...] when ambulating. 07/20/2016 Appointment: [facility] [phone] [facility] (15 min) Moderate 07/20/2016 Patient Education: [...] strengthening. 04/19/2016 App[facility]ment: [phone] [facility] (15 min) Moderate 04/19/2016 Patient Education: [...] appointment. 01/19/2016 Appointment: Quyen Long WPtel: [phone] [phone] (15 min) Moderate 01/19/2016 Patient Education: Patient Medication Summary Completed 01/19/2016 Patient Education: Obesity Completed 01/19/2016 Patient Education: Hypertension Completed 01/19/2016 Referral: Dr Mccauley Referral Completed 11/11/2015 Care Plan: Referral Order SNOMED-CT : [id number] Pending 11/03/2015 Visit Plan: Hypertension - well [...] injection 10/16/2015 Appointment: [phone] [facility] (15 min) Moderate 10/16/2015 Patient Education: [...] center - 02/19/2015 Appointment: Quyen Long WPtel: [facility] (15 min) Moderate 02/19/2015 Patient Education: [...] drops. 11/20/2014 Appointment: [facility] [phone] [facility] Follow up 11/20/2014 Patient Education: Patient [...] doctor ESME. 11/05/2014 Appointment: Quyen Long WPtel: [address] [place], [place] [address] (15 min) Moderate 11/05/2014 Patient Education: Patient [...] to participate in activities outside of the intermediate. He has a family that would like [...] foot. 09/19/2014 Appointment: [facility]el[facility] [phone] [facility] [place] Follow up 09/19/2014 Patient Education: [...] deficiency - recommended repeat of vitamin d [id number] weekly x 12 weeks and increase vitamin d to 5000 units daily. 07/24/2014 [facility]ment[facility] [phone] [id number] [place] Follow up 07/24/2014 Patient Education: [...] B12 level 05/23/2014 [facility] [phone] [phone] Follow up 05/23/2014 Patient Education: Patient Medication Summary Completed 05/23/2014 Patient Education: .Cervicalgia Neck Pain Completed 05/23/2014 Appointment: Quyen Long WPtel: [address] [place], [place] [phone] Follow up 05/22/2014 Visit Plan: Edema - [...] at home. 04/18/2014 Appointment: Quyen Long WPtel: [address] [place], [place] [phone] Follow up 04/18/2014 Patient Education: Patient Medication Summary Completed 04/18/2014 Patient Education: Hypertension Completed 04/18/2014 Appointment: Quyen Long WPtel: [address] [place], [place] [phone] Follow up 02/27/2014 Visit Plan: Insomnia - Pt has been advised to increase the light in the house during the day, and start dimming the lights during the evening hours. Pt has been advised to cut out caffeine after 5pm. Daytime napping worsens night time insomnia. START TRAZODONE AND MONITOR SYMPTOMS. Vitamin D ppaafhgonx-iuxbzyxh-xfvrvlut vitamin D 50,000 units weekly for 12 additional weeks. Hypoxemia-continue night time oxygen 02/21/2014 Appointment: Glory Dalton WPtel: [address] [place], [place] [phone] Follow up 02/21/2014 Patient Education: Patient Medication [...] on mobic. 11/28/2013 Appointment: Quyen Long [facility]el[id number] [facility] 11/28/2013 Patient Education: Patient [...] oxygen study. 11/14/2013 Appointment: Quy[facility] Long [facility]el[facility] [phone] [id number] [place] New Patient 11/14/2013 Patient Education: Patient Medication Summary Completed 11/14/2013 Referral: Dr Mccauley Referral Appointment Requested Instructions Comment . Rash-left fmys-mcygxukw-qaxqtkstok patient to continue using ketoconazole plus betamethasone [...] getting another injection into his shoulder. . Tinea barbae -rx for ketoconazole written [...] DOPA paperwork for health care surrogate. . Hypertension - well controlled - continue [...] deficiency - recommended repeat of vitamin d [id number] weekly x 12 weeks and increase vitamin d to 5000 units daily. CONTINUE VITAMIN D FOR 12 WEEKS . Insomnia - Pt has been advised to increase the light in the house during the day, and start dimming the lights during the evening hours. Pt has been advised to cut out caffeine after 5pm. Daytime napping worsens night time insomnia. START TRAZODONE AND MONITOR SYMPTOMS. Vitamin D pvuajdlafy-pnkiivdx-xbuglixg vitamin D 50,000 units weekly for 12 [...] up in 10 days . Cellulitis-left foot-MSSA pibciumv-zmmqqfsfx-vgtrm air in the evening-continue bactroban ointment twice daily-stop using alcohol on foot-no papertowels or abrasives to foot Zgbh-cqmf-ut for betamethasone provided and instructed on use [...] for weight check. . Post polio syndrome -right leg weakness -patient needs repair and adjustment of his right leg brace that helps with his symptoms of instability and weakness and allows him to ambulate -will send rx to [facility] . Post polio syndrome - back-up brace [...] in pain, worsening redness, warmth, discharge. . Insomnia - Pt has been advised [...] Back pain - improved on mobic. . 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 He has a family that would like [...] hip/thigh, and lower leg and foot. . Edema - pt has been advised [...] Wilson this afternoon for suture removal-pain improved Mnzz-mamp-qzxqzvd fungal infection-will treat with ketoconazole -follow up [...] for new brace/fixing of the break. . Hypertension - well controlled - continue [...]
--- OUTSIDE RECORDS SUMMARY | 2018-11-10 15:53 | XMS REPORT | CCD ---
Author Author Quyen Long Organization Quyen Long MD, [facility] Address [address] [place] [address] Phone Care Team Providers Care Web Pressman Name Role Phone PP Unavailable CCM Unavailable Summary Purpose Interface Exchange Insurance Providers Payer name Policy type / Coverage type Covered green party ID Effective Begin Date Effective End Date WPS Medicare Part B Medicare Part B [id number] 2017 Unknown [facility] Medicare Part B [id number] 2017 Unknown Family history Grandmother Diagnosis Age [...] Description Effective Dates Tobacco history SNOMED CT: 7887527 Former smoker 1.5 pack daily x 45 years 12/27/2017 Marital status Unknown 10/19/2016 Living arrangements Unknown Assisted Living [facility] 04/19/2016 Number of children Unknown 1 son - lives in [place] 11/14/2013 Employment Unknown 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 11/14/[address]: 809285520 Never drinks alcohol 11/14/2013 Has the patient [...] Codes Condition Status Onset Date Resolved Date Tinea barbae and tinea capitis ICD-9: 110.0 ICD-10: B35.0 Active 06/27/2018 Unknown Essential (primary) hypertension ICD-9: 401.9 ICD-10: I10 Active 04/18/2014 Unknown Muscle weakness (generalized) ICD-9: 728.87 ICD-10: M62.81 Active 12/25/2013 Unknown Pain in left shoulder ICD- 9: [...] Problems Condition Codes Effective Dates Condition Status Tinea barbae and tinea capitis ICD-9: 110.0 ICD-10: B35.0 06/27/2018 Active Essential (primary) hypertension ICD-9: 401.9 ICD-10: I10 04/18/2014 Active Muscle weakness (generalized) ICD-9: 728.87 ICD-10: M62.81 12/25/2013 Active Pain in left shoulder ICD- 9: [...] Start Date Stop Date Status Fill Instructions ketoconazole 2 % shampoo RxNorm: 413224 APPLY TO AFFECTED AREA(S) TWICE WEEKLY UNTIL RESOLVED 08/14/2018 09/10/2018 Active cetirizine 10 mg tablet RxNorm: 8036964 TAKE ONE TABLET BY MOUTH EVERY NIGHT AT BEDTIME 08/07/2018 03/04/2019 Active trazodone 50 mg tablet RxNorm: 567929 TAKE ONE TABLET BY MOUTH AT BEDTIME 07/18/2018 11/14/2018 Active ketoconazole 2 % shampoo RxNorm: 299966 1 TOP BIW 06/27/2018 08/13/2018 Inactive Vitamin B-12 1,000 mcg/mL injection solution RxNorm: 094541 INJECT 1ML MONTHLY 06/19/2018 11/15/2018 Active Request already responded to by other means (e.g. phone or fax) Vitamin B-12 1,000 mcg/mL injection solution RxNorm: 616863 Milliliter(s) INJECT 1ML MONTHLY 06/15/2018 06/18/2018 Inactive Zithromax Z-Brian 250 mg tablet RxNorm: 040023 1 Tablet(s) PO UD 06/14/2018 No Stop Date Active robin as directed x1 tamsulosin 0.4 mg capsule RxNorm: 338020 TAKE ONE CAPSULE BY MOUTH EVERY EVENING 06/12/2018 01/07/2019 Active gabapentin 300 mg capsule RxNorm: 280269 TAKE ONE CAPSULE BY MOUTH TWICE A DAY 05/31/2018 09/27/2018 Active losartan 50 mg tablet RxNorm: 570252 TAKE ONE TABLET BY MOUTH DAILY 05/01/2018 09/27/2018 Active Toprol XL 50 mg tablet,extended release RxNorm: 075482 1 Tablet(s) PO daily 04/20/2018 No Stop Date Active Vitamin D3 5,000 unit tablet RxNorm: 068171 TAKE ONE TABLET BY MOUTH DAILY 04/05/2018 02/28/2019 Active trazodone 50 mg tablet RxNorm: 162533 TAKE ONE TABLET BY MOUTH AT BEDTIME 02/27/2018 07/17/2018 Inactive ranitidine 150 mg tablet RxNorm: 346656 1 Tablet(s) PO BID 02/13/2018 02/07/2019 Active hydrochlorothiazide 25 mg tablet RxNorm: 968699 TAKE ONE TABLET BY MOUTH DAILY 02/13/2018 11/09/2018 Active albuterol sulfate 2.5 mg/3 mL (0.083 %) solution for nebulization RxNorm: 192732 3 Milliliter(s) INH UD 02/08/2018 No Stop Date Active please deliver all of his prescriptions thank you cefdinir 300 mg capsule RxNorm: 964543 1 Capsule(s) PO BID 02/08/2018 02/17/2018 Inactive prednisone 20 mg tablet RxNorm: 324219 2 Tablet(s) PO daily 02/08/2018 02/12/2018 Inactive fluticasone 50 mcg/actuation nasal spray,suspension RxNorm: 3747356 1 [place] NASAL BID 02/07/2018 06/06/2018 Inactive fluticasone 50 mcg/actuation nasal spray,suspension RxNorm: 4401907 1 [place] NASAL BID 02/07/2018 02/06/2018 Inactive Zithromax Z-Brian 250 mg tablet RxNorm: 312509 1 Tablet(s) PO UD 02/07/2018 03/14/2018 Inactive zpack as directed tamsulosin 0.4 mg capsule RxNorm: 269216 TAKE ONE CAPSULE BY MOUTH EVERY EVENING 01/13/2018 06/11/2018 Inactive Vitamin D3 5,000 unit tablet RxNorm: 908216 TAKE ONE TABLET BY MOUTH DAILY 01/02/2018 04/04/2018 Inactive cetirizine 10 mg tablet RxNorm: 8523497 TAKE ONE TABLET BY MOUTH EVERY NIGHT AT BEDTIME 01/02/2018 04/01/2018 Inactive cetirizine 10 mg tablet RxNorm: 7210404 1 Tablet(s) PO QHS 12/26/2017 01/01/2018 Inactive cetirizine 10 mg tablet RxNorm: 9959576 1 Tablet(s) PO QHS 12/26/2017 12/25/2017 Inactive losartan 50 mg tablet RxNorm: 441243 TAKE ONE TABLET BY MOUTH DAILY (STARTING 09-09-2017) 09/29/2017 03/27/2018 Inactive Request already responded to by other means (e.g. phone or fax) losartan 50 mg tablet RxNorm: 692777 1 Tablet(s) PO daily 09/27/2017 09/26/2017 Inactive losartan 50 mg tablet RxNorm: 708500 1 Tablet(s) PO daily 09/27/2017 09/28/2017 Inactive Bactrim DS 800 mg-160 mg tablet RxNorm: 335227 1 Tablet(s) PO BID 09/13/2017 09/19/2017 Inactive Kenalog 40 mg/mL suspension for injection RxNorm: 0559764 1 Milliliter(s) Inj 09/07/2017 09/07/2017 Inactive trazodone 50 mg tablet RxNorm: 273957 TAKE ONE TABLET BY MOUTH AT BEDTIME 08/16/2017 02/11/2018 Inactive gabapentin 300 mg capsule RxNorm: 457046 1 Capsule(s) PO BID 08/03/2017 01/29/2018 Inactive Vitamin D3 5,000 unit tablet RxNorm: 511881 TAKE ONE TABLET BY MOUTH DAILY 08/01/2017 12/28/2017 Inactive ketoconazole 2 % topical cream RxNorm: 406818 APPLY TO AFFECTED AREA(S) TWO TIMES A DAY 05/31/2017 06/29/2017 Inactive hydrochlorothiazide 25 mg tablet RxNorm: 883917 TAKE ONE TABLET BY MOUTH DAILY 05/16/2017 02/09/2018 Inactive lisinopril 20 mg tablet RxNorm: 608179 TAKE ONE TABLET BY MOUTH DAILY 05/16/2017 09/06/2017 Inactive ketoconazole 2 % topical cream RxNorm: 998022 1 Application TOP BID 03/29/2017 04/11/2017 Inactive apply to faice-deliver to [facility] please betamethasone dipropionate 0.05 % topical ointment RxNorm: 169208 1 Application TOP BID 03/29/2017 04/11/2017 Inactive apply to arm/chests for itching gabapentin 300 mg capsule RxNorm: 018219 1 Capsule(s) PO BID 03/29/2017 08/02/2017 Inactive trazodone 50 mg tablet RxNorm: 237075 TAKE ONE TABLET BY MOUTH AT BEDTIME 03/28/2017 08/15/2017 Inactive Vesicare 10 mg tablet RxNorm: 181841 TAKE ONE TABLET BY MOUTH EVERY NIGHT AT BEDTIME 03/21/2017 12/26/2017 Inactive Vesicare 10 mg tablet RxNorm: 925075 TAKE ONE TABLET BY MOUTH EVERY NIGHT AT BEDTIME 03/21/2017 06/06/2017 Inactive doxycycline hyclate 100 mg capsule RxNorm: 9002472 1 Capsule(s) PO BID 03/18/2017 03/27/2017 Inactive mupirocin 2 % topical ointment RxNorm: 053376 1 Application TOP BID 03/17/2017 No Stop Date Active doxycycline hyclate 100 mg tablet RxNorm: 602094 1 Tablet(s) PO BID 03/09/2017 03/15/2017 Inactive Take probiotic BID while on ABT doxycycline hyclate 100 mg tablet RxNorm: 544750 1 Tablet(s) PO BID 03/09/2017 03/08/2017 Inactive Take probiotic BID while on ABT meloxicam 15 mg tablet RxNorm: 731016 TAKE ONE TABLET BY MOUTH DAILY 02/10/2017 12/06/2017 Inactive Vitamin D3 5,000 unit tablet RxNorm: 738465 TAKE ONE TABLET BY MOUTH DAILY 02/08/2017 07/31/2017 Inactive Vitamin B-12 1,000 mcg/mL injection solution RxNorm: 562501 INJECT 1ML MONTHLY 01/24/2017 07/22/2017 Inactive lisinopril 20 mg tablet RxNorm: 141874 TAKE ONE TABLET BY MOUTH DAILY 12/13/2016 04/11/2017 Inactive trazodone 50 mg tablet RxNorm: 018953 TAKE ONE TABLET BY MOUTH AT BEDTIME 09/24/2016 03/22/2017 Inactive Vitamin D3 5,000 unit tablet RxNorm: 504936 TAKE ONE TABLET BY MOUTH DAILY 09/20/2016 02/07/2017 Inactive lisinopril 20 mg tablet RxNorm: 013356 TAKE ONE TABLET BY MOUTH DAILY 09/13/2016 12/12/2016 Inactive ketoconazole 2 % topical cream RxNorm: 351648 1 Application TOP BID 08/17/2016 08/30/[address] [facility] [place] please Pepcid 20 mg tablet RxNorm: 754744 TAKE ONE TABLET BY MOUTH TWICE A DAY 07/12/2016 12/26/2017 Inactive omega-3 acid ethyl esters 1 gram capsule RxNorm: 665766 3 Capsule(s) PO daily 06/18/2016 12/14/2016 Inactive omega-3 acid ethyl esters 1 gram capsule RxNorm: 727743 3 Capsule(s) PO daily 06/18/2016 06/17/2016 Inactive trazodone 50 mg tablet RxNorm: 364152 TAKE ONE TABLET BY MOUTH AT BEDTIME 06/08/2016 08/06/2016 Inactive tamsulosin 0.4 mg capsule RxNorm: 085986 Capsule(s) TAKE ONE CAPSULE BY MOUTH EVERY EVENING 06/04/2016 12/30/2016 Inactive hydrochlorothiazide 25 mg tablet RxNorm: 804813 TAKE ONE TABLET BY MOUTH DAILY 05/10/2016 05/09/2016 Inactive hydrochlorothiazide 25 mg tablet RxNorm: 482728 TAKE ONE TABLET BY MOUTH DAILY 05/10/2016 02/12/2018 Inactive Pepcid 20 mg tablet RxNorm: 868226 1 Tablet(s) PO BID 03/18/2016 03/17/2016 Inactive Pepcid 20 mg tablet RxNorm: 869861 1 Tablet(s) PO BID 03/18/2016 07/11/2016 Inactive lisinopril 20 mg tablet RxNorm: 274048 TAKE ONE TABLET BY MOUTH DAILY 03/18/2016 08/14/2016 Inactive Vitamin D3 5,000 unit tablet RxNorm: 819471 Tablet(s) TAKE ONE TABLET BY MOUTH DAILY 03/18/2016 09/13/2016 Inactive trazodone 50 mg tablet RxNorm: 667484 TAKE ONE TABLET BY MOUTH AT BEDTIME 03/15/2016 06/07/2016 Inactive Vesicare 10 mg tablet RxNorm: 757611 1 Tablet(s) PO QHS 03/15/2016 02/07/2017 Inactive meloxicam 15 mg tablet RxNorm: 737687 TAKE ONE TABLET BY MOUTH DAILY 03/01/2016 01/24/2017 Inactive Bactrim DS 800 mg-160 mg tablet RxNorm: 176568 1 Tablet(s) PO BID 02/10/2016 02/09/2016 Inactive Bactrim DS 800 mg-160 mg tablet RxNorm: 228952 1 Tablet(s) PO BID 02/10/2016 02/16/2016 Inactive Cipro 500 mg tablet RxNorm: 005244 1 Tablet(s) PO BID 02/06/2016 02/09/2016 Inactive Cipro 500 mg tablet RxNorm: 833830 1 Tablet(s) PO BID 02/06/2016 02/05/2016 Inactive Pennsaid 20 mg/gram/actuation (2 %) topical soln in metered- dose pump RxNorm: 9754220 2 pumps TOP BID 01/19/2016 04/19/2016 Inactive tamsulosin 0.4 mg capsule RxNorm: 597831 TAKE ONE CAPSULE BY MOUTH EVERY EVENING 01/12/2016 06/03/2016 Inactive cyanocobalamin (vit B-12) 1,000 mcg/mL injection solution RxNorm: 806111 INJECT 1 ML INTRAMUSCULARLY MONTHLY 01/01/2016 10/26/2016 Inactive Request already responded to by other means (e.g. phone or fax) Vitamin B-12 1,000 mcg/mL injection solution RxNorm: 782105 1 Milliliter(s) Inj monthly 12/24/2015 04/19/2016 Inactive please give syringes for injections Vitamin D3 5,000 unit tablet RxNorm: 582636 TAKE ONE TABLET BY MOUTH DAILY 12/08/2015 03/06/2016 Inactive pantoprazole 40 mg tablet,delayed release RxNorm: 681504 TAKE ONE TABLET BY MOUTH DAILY 12/08/2015 03/17/2016 Inactive trazodone 50 mg tablet RxNorm: 703349 TAKE ONE TABLET BY MOUTH AT BEDTIME 11/10/2015 03/08/2016 Inactive lisinopril 20 mg tablet RxNorm: 495576 TAKE ONE TABLET BY MOUTH DAILY 09/08/2015 03/05/2016 Inactive Vitamin D3 5,000 unit tablet RxNorm: 870564 1 Tablet(s) PO daily 08/12/2015 12/07/2015 Inactive pantoprazole 40 mg tablet,delayed release RxNorm: 937320 1 Tablet(s) PO daily 08/12/2015 12/07/2015 Inactive tamsulosin 0.4 mg capsule RxNorm: 035089 TAKE ONE CAPSULE BY MOUTH EVERY EVENING 07/21/2015 12/17/2015 Inactive trazodone 50 mg tablet RxNorm: 392345 TAKE ONE TABLET BY MOUTH AT BEDTIME 05/09/2015 10/05/2015 Inactive hydrochlorothiazide 25 mg tablet RxNorm: 553263 1 Tablet(s) PO QAM 04/30/2015 04/29/2015 Inactive hydrochlorothiazide 25 mg tablet RxNorm: 158563 TAKE ONE TABLET BY MOUTH DAILY 04/30/2015 02/12/2018 Inactive pantoprazole 40 mg tablet,delayed release RxNorm: 219966 1 Tablet(s) PO daily 04/16/2015 08/11/2015 Inactive meloxicam 15 mg tablet RxNorm: 331104 TAKE ONE TABLET BY MOUTH DAILY 03/03/2015 02/25/2016 Inactive lisinopril 20 mg tablet RxNorm: 099094 1 Tablet(s) PO daily 02/19/2015 09/07/2015 Inactive tamsulosin 0.4 mg capsule RxNorm: 177973 TAKE ONE CAPSULE BY MOUTH EVERY EVENING 01/20/2015 07/18/2015 Inactive cyanocobalamin (vit B-12) 1,000 mcg/mL injection solution RxNorm: 676894 Milliliter(s) INJECT 1ML INTRAMUSCULARLY MONTHLY 12/12/2014 12/22/2014 Inactive trazodone 50 mg tablet RxNorm: 324609 TAKE ONE TABLET BY MOUTH AT BEDTIME 11/14/2014 05/08/2015 Inactive erythromycin 5 mg/gram (0.5 %) eye ointment RxNorm: 717538 1/2 inch OPH QID 11/05/2014 11/14/2014 Inactive acyclovir 800 mg tablet RxNorm: 650900 1 Tablet(s) PO TID 11/05/2014 11/18/2014 Inactive Zofran 4 mg tablet RxNorm: 227660 1 Tablet(s) PO Q4H as needed nausea 11/05/2014 01/03/2015 Inactive Duragesic 12 mcg/hr transdermal patch RxNorm: 522792 1 Patch TD Q72H 11/05/2014 02/04/2015 Inactive Imitrex 100 mg tablet RxNorm: 673264 1 Tablet(s) PO q 12 hours 11/04/2014 04/15/2015 Inactive naproxen 500 mg tablet RxNorm: 552296 1 Tablet(s) PO BID 10/30/2014 11/01/2014 Inactive meloxicam 15 mg tablet RxNorm: 894680 TAKE ONE TABLET BY MOUTH DAILY 10/04/2014 03/02/2015 Inactive Vesicare 5 mg tablet RxNorm: 179487 TAKE ONE TABLET BY MOUTH AT BEDTIME 09/16/2014 07/16/2015 Inactive Vitamin D2 50,000 unit capsule RxNorm: 542508 1 Capsule(s) PO QW 09/06/2014 07/16/2015 Inactive once weekly x 12 weeks tamsulosin ER 0.4 mg capsule,extended release 24 hr RxNorm: 305581 TAKE ONE CAPSULE BY MOUTH EVERY EVENING 06/24/2014 12/20/2014 Inactive tamsulosin ER 0.4 mg capsule,extended release 24 hr RxNorm: 282556 1 Capsule(s) PO QPM 06/24/2014 01/19/2015 Inactive Vitamin D2 50,000 unit capsule RxNorm: 028554 1 Capsule(s) PO QW 05/27/2014 09/05/2014 Inactive once weekly x 12 weeks Vesicare 5 mg tablet RxNorm: 009256 1 Tablet(s) PO QHS 05/23/2014 05/22/2014 Inactive Vesicare 5 mg tablet RxNorm: 989872 1 Tablet(s) PO QHS 05/23/2014 09/15/2014 Inactive trazodone 50 mg tablet RxNorm: 749692 TAKE ONE TABLET BY MOUTH AT BEDTIME 05/13/2014 11/08/2014 Inactive trazodone 50 mg tablet RxNorm: 663422 TAKE ONE TABLET BY MOUTH AT BEDTIME 05/13/2014 11/08/2014 Inactive hydrochlorothiazide 25 mg tablet RxNorm: 193398 1 Tablet(s) PO QAM 04/18/2014 01/12/2015 Inactive Vitamin D2 50,000 unit capsule RxNorm: 131193 TAKE ONE CAPSULE BY MOUTH ONCE WEEKLY FOR 12 WEEKS 04/09/2014 05/14/2014 Inactive trazodone 50 mg tablet RxNorm: 781947 1 Tablet(s) PO QHS 02/22/2014 05/12/2014 Inactive trazodone 50 mg tablet RxNorm: 716077 1 Tablet(s) PO QHS 02/22/2014 02/21/2014 Inactive Vitamin D2 50,000 unit capsule RxNorm: 057462 TAKE ONE CAPSULE BY MOUTH ONCE WEEKLY FOR 12 WEEKS 02/07/2014 03/06/2014 Inactive meloxicam 15 mg tablet RxNorm: 129173 TAKE ONE TABLET BY MOUTH ONCE A DAY 02/07/2014 08/05/2014 Inactive meloxicam 15 mg tablet RxNorm: 331753 TAKE ONE TABLET BY MOUTH ONCE A DAY 02/07/2014 2014 Inactive clotrimazole 1 % topical cream RxNorm: 606355 1 Application TOP BID 12/25/2013 07/16/2015 Inactive Diflucan 150 mg tablet RxNorm: 991898 1 Tablet(s) PO daily 12/25/2013 12/31/2013 Inactive tamsulosin ER 0.4 mg capsule,extended release 24 hr RxNorm: 326502 1 Capsule(s) PO QPM 11/28/2013 06/23/2014 Inactive cyanocobalamin (vit B-12) 1,000 mcg/mL injection solution RxNorm: 087582 1 Milliliter(s) Inj 11/28/2013 12/12/2014 Inactive Vitamin B-12 1,000 mcg/mL injection solution RxNorm: 647335 1 Milliliter(s) Inj monthly 11/21/2013 02/13/2015 Inactive please give syringes for injections Vitamin D2 50,000 unit capsule RxNorm: 521306 1 Capsule(s) PO QW x 12 weeks 11/21/2013 02/06/2014 Inactive [SAVINGS FOR UNINSURED PATIENTS -- to take addtional 2000 units daily Vitamin B-12 1,000 mcg/mL injection solution RxNorm: 745190 1 Milliliter(s) Inj monthly 11/21/2013 11/20/2013 Inactive meloxicam 15 mg tablet RxNorm: 916100 1 Tablet(s) PO daily 11/20/2013 11/19/2013 Inactive [SAVINGS FOR UNINSURED PATIENTS -- BIN:[id number], PCN: [id number], Group: [id number], ID# [id number], Process claim through [employer]yntarga[employer], for questions: . THIS IS NOT INSURANCE.] meloxicam 15 mg tablet RxNorm: 876794 1 Tablet(s) PO daily 11/20/2013 02/06/2014 Inactive [SAVINGS FOR UNINSURED PATIENTS -- BIN:[id number], PCN: [id number], Group: [id number], ID# [id number], Process claim through [employer], for questions: . THIS IS NOT INSURANCE.] meloxicam 15 mg tablet RxNorm: 811885 1 Tablet(s) PO daily 11/20/2013 11/19/2013 Inactive Voltaren 1 % topical gel RxNorm: 479034 4 Application TOP QID apply to back, affected joints four times daily 11/14/2013 11/20/2013 Inactive trazodone 50 mg tablet RxNorm: 795797 1 Tablet(s) PO QHS No Start Date Active Vitamin D2 50,000 unit capsule RxNorm: 935720 1 Capsule(s) PO QW No Start Date 05/26/2014 Inactive once weekly x 12 weeks Zithromax Z-Brian 250 mg tablet RxNorm: 039378 1 Tablet(s) PO UD No Start Date 02/06/2018 Inactive Vitamin D2 50,000 unit capsule RxNorm: 236249 1 Capsule(s) PO QW No Start Date 11/20/2013 Inactive gabapentin 300 mg capsule RxNorm: 450532 1 Capsule(s) PO TID No Start Date 03/28/2017 Inactive Vesicare 10 mg tablet RxNorm: 784250 1 Tablet(s) PO QHS No Start Date 03/14/2016 Inactive Toprol XL 25 mg tablet,extended release RxNorm: 558109 1 Tablet(s) PO daily No Start Date 04/19/2018 Inactive Vitamin D3 5,000 unit tablet RxNorm: 655550 1 Tablet(s) PO daily No Start Date 08/11/2015 Inactive Celebrex 200 mg capsule RxNorm: 994121 1 Capsule(s) PO BID No Start Date 07/19/2016 Inactive Imitrex 50 mg tablet RxNorm: 520519 1 Tablet(s) PO now and may repeat up to four times in 24 hours No Start Date 11/03/2014 Inactive Zofran 4 mg tablet RxNorm: 348118 1 Tablet(s) PO Q8 as needed nausea and vomitting No Start Date 10/15/2015 Inactive ranitidine 150 mg tablet RxNorm: 425658 1 Tablet(s) PO BID No Start Date 02/12/2018 Inactive Phenergan 25 mg tablet RxNorm: 405663 1 Tablet(s) PO now No Start Date 04/15/2015 Inactive Tums oral RxNorm: 686522 oral No Start Date 10/15/2015 Inactive Medication Administered Medication Codes Instructions Start Date Status Kenalog 40 mg/mL suspension for injection RxNorm: 0029698 1Milliliter 09/07/2017 No longer Active cyanocobalamin (vit B-12) 1,000 mcg/mL injection solution RxNorm: 021445 1Milliliter 11/28/2013 No longer Active Immunizations Vaccine Codes Date Status Influenza CVX: 141 04/06/2017 completed PPD Unknown 07/03/2015 completed Zoster CVX: 121 11/29/2014 completed Influenza CVX: 141 03/26/2013 completed Assessments Condition Codes Effective Dates Tinea barbae and tinea capitis ICD-10: B35.0 ICD-9: 110.0 06/27/2018 Muscle weakness (generalized) ICD-10: M62.81 ICD-9: 728.87 04/20/2018 Pain in left shoulder ICD-10: M25.512 ICD-9: 719.41 04/20/2018 Essential (primary) hypertension ICD-10: I10 ICD-9: 401.9 04/20/2018 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 Reports that he did have hemorrhaging in his right eye which is getting better. headache 04/18/2014 Pt states he recently went to an eye doctor in [place] shortness of breath 02/21/2014 blisters 12/25/2013 insomnia 11/28/2013 back pain 11/14/2013 Results Observation Observation Code Item Item Code Result Date Vitamin D 25 Oh [id number] VITAMIN D, 25 HYDROXY 66.80 ng/mL 03/14/2018 [...] 28.5 pg 03/14/2018 Cbc With Differential Ord2 [place]% 7.6 % 03/14/2018 Cbc With Differential Ord2 [...] 1.28 K/ul 03/14/2018 Cbc With Differential Ord2 [place] ABS# 0.4 K/ul 03/14/2018 Cbc With Differential [...] Lipid Ord30 C/HDL 5.0 Ratio 06/27/2017 %Hba1C Adn698 % HbA1c 80305- 6 6.2 % 06/27/2017 %Hba1C Nqz260 Gluc Ave 131 mg/dL 06/27/2017 Comp Metabolic Fop722 NA 140 mEq/L 06/27/2017 Comp Metabolic Smf128 K 4.2 mEq/L 06/27/2017 Comp Metabolic Fwe721 CL 100 mEq/L 06/27/2017 Comp Metabolic Bfh414 CO2 32.0 mEq/L 06/27/2017 Comp Metabolic Qxb842 ANION GAP 12 06/27/2017 Comp Metabolic Oox443 GLUCOSE 118 mg/dL 06/27/2017 Comp Metabolic Meu715 Creat 1.0 mg/dL 06/27/2017 Comp Metabolic Yuf455 eGFR 82 ml/min/1.73m2 06/27/2017 Comp Metabolic Ryk725 BUN 26 mg/dL 06/27/2017 Comp Metabolic Vtr230 B/C Ratio 27.1 Ratio 06/27/2017 Comp Metabolic Iov131 CALCIUM 9.6 mg/dL 06/27/2017 Comp Metabolic Leb533 ALK PHOS 46 U/L 06/27/2017 Comp Metabolic Ovg982 AST(SGOT) 23 U/L 06/27/2017 Comp Metabolic Yir468 ALT(SGPT) 31 U/L 06/27/2017 Comp Metabolic Rgv355 BILI T 0.5 mg/dL 06/27/2017 Comp Metabolic Hnv442 ALBUMIN 4.2 g/dL 06/27/2017 Comp Metabolic Spw985 TPRO 6.6 g/dL 06/27/2017 Comp Metabolic Wmm622 GLOB 2.4 g/dL 06/27/2017 Comp Metabolic Wef553 A/G Ratio 1.7 Ratio 06/27/2017 Comp Metabolic Qlr118 Osmo 285 mOsmo 06/27/2017 Cbc With Differential [...] 29.0 pg 10/20/2016 Cbc With Differential Ord2 [place]% 9.0 % 10/20/2016 Cbc With Differential Ord2 [...] 1.33 K/ul 10/20/2016 Cbc With Differential Ord2 [place] ABS# 0.4 K/ul 10/20/2016 Cbc With Differential Ord2 Eos ABS# 0.2 K/ul 10/20/2016 Cbc With Differential Ord2 Baso ABS# 0.0 K/ul 10/20/2016 Comp Metabolic Ljt107 NA 143 mEq/L 10/20/2016 Comp Metabolic Uyu418 K 4.6 mEq/L 10/20/2016 Comp Metabolic Wiv031 CL 104 mEq/L 10/20/2016 Comp Metabolic Ozg348 CO2 31.0 mEq/L 10/20/2016 Comp Metabolic Mjt051 ANION GAP 13 10/20/2016 Comp Metabolic Qur515 GLUCOSE 117 mg/dL 10/20/2016 Comp Metabolic Vcg127 Creat 1.1 mg/dL 10/20/2016 Comp Metabolic Xhd294 eGFR 74 ml/min/1.73m2 10/20/2016 Comp Metabolic Bpc460 BUN 27 mg/dL 10/20/2016 Comp Metabolic Tgv135 B/C Ratio 25.7 Ratio 10/20/2016 Comp Metabolic Yhw138 CALCIUM 9.3 mg/dL 10/20/2016 Comp Metabolic Jeq325 ALK PHOS 47 U/L 10/20/2016 Comp Metabolic Ymi033 AST(SGOT) 18 U/L 10/20/2016 Comp Metabolic Ovz215 ALT(SGPT) 22 U/L 10/20/2016 Comp Metabolic Mef361 BILI T 0.5 mg/dL 10/20/2016 Comp Metabolic Ksv735 ALBUMIN 3.9 g/dL 10/20/2016 Comp Metabolic Gih625 TPRO 6.5 g/dL 10/20/2016 Comp Metabolic Wvd677 GLOB 2.6 g/dL 10/20/2016 Comp Metabolic Ign533 A/G Ratio 1.5 Ratio 10/20/2016 Comp Metabolic Oul660 Osmo 291 mOsmo 10/20/2016 Tsh Ord6 hTSH II 1.56 uIU/mL 10/20/2016 Lipid Ord30 CHOL 153 mg/dL 10/20/2016 Lipid Ord30 HDL 34.0 mg/dl 10/20/2016 Lipid Ord30 TRIG 123 mg/dL 10/20/2016 Lipid Ord30 LDL 94 mg/dL 10/20/2016 Lipid Ord30 C/HDL 4.5 Ratio 10/20/2016 B12 Cbf908 B12 544.00 pg/ml 10/20/2016 Comp Metabolic Ojc048 NA 138 mEq/L 05/13/2016 Comp Metabolic Xmk203 K 4.2 mEq/L 05/13/2016 Comp Metabolic Dds179 CL 102 mEq/L 05/13/2016 Comp Metabolic Lzj490 CO2 30.0 mEq/L 05/13/2016 Comp Metabolic Wvr510 ANION GAP 10 05/13/2016 Comp Metabolic Gbv854 GLUCOSE 113 mg/dL 05/13/2016 Comp Metabolic Trm846 Creat 1.0 mg/dL 05/13/2016 Comp Metabolic Amp727 eGFR 77 ml/min/1.73m2 05/13/2016 Comp Metabolic Xwi597 BUN 26 mg/dL 05/13/2016 Comp Metabolic Paj479 B/C Ratio 25.5 Ratio 05/13/2016 Comp Metabolic Vwh027 CALCIUM 9.7 mg/dL 05/13/2016 Comp Metabolic Ovf624 ALK PHOS 51 U/L 05/13/2016 Comp Metabolic Gyf240 AST(SGOT) 17 U/L 05/13/2016 Comp Metabolic Zjb614 ALT(SGPT) 20 U/L 05/13/2016 Comp Metabolic Qcw911 BILI T 0.6 mg/dL 05/13/2016 Comp Metabolic Cop777 ALBUMIN 4.0 g/dL 05/13/2016 Comp Metabolic Vqa912 TPRO 6.6 g/dL 05/13/2016 Comp Metabolic Ald081 GLOB 2.6 g/dL 05/13/2016 Comp Metabolic Sef092 A/G Ratio 1.6 Ratio 05/13/2016 Comp Metabolic Oyg359 Osmo 281 mOsmo 05/13/2016 Lipid Ord30 CHOL [...] 29.3 pg 02/11/2016 Cbc With Differential Ord2 [place]% 7.7 % 02/11/2016 Cbc With Differential Ord2 [...] 1.18 K/ul 02/11/2016 Cbc With Differential Ord2 [place] ABS# 0.4 K/ul 02/11/2016 Cbc With Differential Ord2 Eos ABS# 0.1 K/ul 02/11/2016 Cbc With Differential Ord2 Baso ABS# 0.0 K/ul 02/11/2016 Comp Metabolic Hfp713 NA 138 mEq/L 02/11/2016 Comp Metabolic Sgm798 K 4.0 mEq/L 02/11/2016 Comp Metabolic Jir892 CL 97 mEq/L 02/11/2016 Comp Metabolic Hbr136 CO2 32.0 mEq/L 02/11/2016 Comp Metabolic Kyb727 ANION GAP 13 02/11/2016 Comp Metabolic Yni985 GLUCOSE 117 mg/dL 02/11/2016 Comp Metabolic Nff576 Creat 1.0 mg/dL 02/11/2016 Comp Metabolic Qcf730 eGFR 81 ml/min/1.73m2 02/11/2016 Comp Metabolic Dcf355 BUN 21 mg/dL 02/11/2016 Comp Metabolic Blk473 B/C Ratio 21.4 Ratio 02/11/2016 Comp Metabolic Apb958 CALCIUM 9.2 mg/dL 02/11/2016 Comp Metabolic Hju258 ALK PHOS 48 U/L 02/11/2016 Comp Metabolic Jjk038 AST(SGOT) 18 U/L 02/11/2016 Comp Metabolic Wqt954 ALT(SGPT) 22 U/L 02/11/2016 Comp Metabolic Tyk370 BILI T 0.5 mg/dL 02/11/2016 Comp Metabolic Ehf489 ALBUMIN 3.9 g/dL 02/11/2016 Comp Metabolic Mco411 TPRO 6.3 g/dL 02/11/2016 Comp Metabolic Wlm851 GLOB 2.5 g/dL 02/11/2016 Comp Metabolic Xkp214 A/G Ratio 1.6 Ratio 02/11/2016 Comp Metabolic Dxz843 Osmo 280 mOsmo 02/11/2016 Lipid Ord30 CHOL 163 mg/dL 02/11/2016 Lipid Ord30 HDL 35.0 mg/dl 02/11/2016 Lipid Ord30 TRIG 200 mg/dL 02/11/2016 Lipid Ord30 LDL 88 mg/dL 02/11/2016 Lipid Ord30 C/HDL 4.7 Ratio 02/11/2016 %Hba1C Sey774 % HbA1c 89883- 6 6.5 % 02/11/2016 %Hba1C Usk706 Gluc Ave 140 mg/dL 02/11/2016 Tsh Ord6 hTSH II 2.07 uIU/mL 02/11/2016 B12 Vpz477 B12 563.00 pg/ml 02/11/2016 Culture Urine [id number] URINE CULTURE SEE NOTES 02/10/2016 Culture Urine [id number] Continued Results 02/10/2016 Urine Culture Ucult Complete [...] hours from collection if refrigerated) 11/04/2015 %Hba1C Ztx889 % HbA1c 03322- 6 6.4 % 04/16/2015 %Hba1C Oei946 Gluc Ave 137 mg/dL 04/16/2015 Tsh Ord6 hTSH II 3.33 uIU/mL 02/07/2015 Comp Metabolic Hzc167 NA 136 mEq/L 02/07/2015 Comp Metabolic Avk392 K 3.9 mEq/L 02/07/2015 Comp Metabolic Dbj192 CL 98 mEq/L 02/07/2015 Comp Metabolic Nnc333 CO2 31.0 mEq/L 02/07/2015 Comp Metabolic Sxf014 ANION GAP 11 02/07/2015 Comp Metabolic Olf443 GLUCOSE 139 mg/dL 02/07/2015 Comp Metabolic Upk679 Creat 0.9 mg/dL 02/07/2015 Comp Metabolic Yvz425 eGFR 87 ml/min/1.73m2 02/07/2015 Comp Metabolic Cpk539 BUN 20 mg/dL 02/07/2015 Comp Metabolic Zng840 B/C Ratio 21.7 Ratio 02/07/2015 Comp Metabolic Jnu027 CALCIUM 9.7 mg/dL 02/07/2015 Comp Metabolic Hlm050 ALK PHOS 55 U/L 02/07/2015 Comp Metabolic Rya253 AST(SGOT) 20 U/L 02/07/2015 Comp Metabolic Oqd976 ALT(SGPT) 27 U/L 02/07/2015 Comp Metabolic Gck796 BILI T 0.5 mg/dL 02/07/2015 Comp Metabolic Brj177 ALBUMIN 4.3 g/dL 02/07/2015 Comp Metabolic Xyk527 TPRO 6.9 g/dL 02/07/2015 Comp Metabolic Mrp462 GLOB 2.6 g/dL 02/07/2015 Comp Metabolic Stj702 A/G Ratio 1.7 Ratio 02/07/2015 Comp Metabolic Amf994 Osmo 277 mOsmo 02/07/2015 Cbc With Differential [...] Ord2 RDW 14.8 % 02/07/2015 A1C HPLC [id number] A1C HPLC 75339-6 6.0 % 05/23/2014 VIT B 12 [id number] VIT B 12 479 PG/ML 05/23/2014 VIT D TOTL [id number] VIT D TOTL 29 NG/ML 05/23/2014 Review of Systems System Result Effective Dates Constitutional No recent illness 06/27/2018 Constitutional No [...] 4: G0439 12/27/2017 THER/PROPH/DIAG INJ SC/IM CPT-4: 41541 09/07/2017 TRIAMCINOLONE ACET INJ NOS CPT-4: J3301 09/07/2017 ROUTINE VENIPUNCTURE CPT- 4: 62932 05/23/2014 THER/PROPH/DIAG INJ SC/IM CPT-4: 02866 11/28/2013 VITAMIN B12 INJECTION CPT- 4: J3420 11/28/2013 Vital Signs Date Vital 06/27/2018 Blood Pressure 1: 124/70 Code: 8480-6 BMI: 36.6 Code: 21676-3 Heart Rate 1: 64 bpm Height: 6' SpO2: 96% Weight: 270 lbs 04/20/2018 Blood Pressure 1: 126/74 Code: 8480-6 BMI: 36.6 Code: 80311-6 Heart Rate 1: 60 bpm Height: 6' SpO2: 94% Weight: 270 lbs 03/21/2018 Blood Pressure 1: 138/74 Code: 8480-6 BMI: 36.8 Code: 19294-8 Heart Rate 1: 81 bpm Height: 6' SpO2: 98% Weight: 271 lbs 02/08/2018 Blood Pressure 1: 132/74 Code: 8480-6 BMI: 37.0 Code: 72725-8 Heart Rate 1: 82 bpm Height: 6' SpO2: 97% Weight: 273 lbs 12/27/2017 Blood Pressure 1: 148/78 Code: 8480-6 BMI: 36.3 Code: 18342-2 Heart Rate 1: 78 bpm Height: 6' SpO2: 93% Waist Measure (cm): 117 cm Weight: 268 lbs 12/06/2017 Blood Pressure 1: 122/70 Code: 8480-6 BMI: 36.6 Code: 88319-3 Heart Rate 1: 76 bpm Height: 6' SpO2: 93% Weight: 270 lbs 11/01/2017 BMI: 36.9 Code: 92964-0 Height: 6' Weight: 272 lbs 09/07/2017 Blood Pressure 1: 140/78 Code: 8480-6 BMI: 35.8 Code: 21597-8 Heart Rate 1: 76 bpm Height: 6' SpO2: 98% Weight: 264 lbs 06/07/2017 Blood Pressure 1: 138/86 Code: 8480-6 BMI: 36.3 Code: 71894-6 Heart Rate 1: 66 bpm Height: 6' SpO2: 95% Weight: 268 lbs 05/19/2017 Blood Pressure 1: 152/84 Code: 8480-6 BMI: 36.8 Code: 89395-5 Heart Rate 1: 70 bpm Height: 6' SpO2: 93% Weight: 271 lbs 05/09/2017 Blood Pressure 1: 138/76 Code: 8480-6 BMI: 36.6 Code: 53729-1 Heart Rate 1: 79 bpm Height: 6' SpO2: 93% Weight: 270 lbs 04/25/2017 Blood Pressure 1: 150/80 Code: 8480-6 Heart Rate 1: 58 bpm Height: SpO2: 94% Weight: 2017 Blood Pressure 1: 138/80 Code: 8480-6 BMI: 36.5 Code: 65338-3 Heart Rate 1: 76 bpm Height: 6' SpO2: 96% Weight: 269 lbs 03/29/2017 Blood Pressure 1: 118/68 Code: 8480-6 BMI: 36.9 Code: 09733-7 Heart Rate 1: 61 bpm Height: 6' SpO2: 95% Weight: 272 lbs 03/17/2017 Blood Pressure 1: 140/78 Code: 8480-6 BMI: 36.8 Code: 46082-4 Heart Rate 1: 91 bpm Height: 6' SpO2: 93% Weight: 271 lbs 03/08/2017 Blood Pressure 1: 152/84 Code: 8480-6 BMI: 36.8 Code: 50296-0 Heart Rate 1: 72 bpm Height: 6' SpO2: 92% Temperature: 36.6 (C) / 97.8 (F) Weight: 271 lbs 02/17/2017 Blood Pressure 1: 110/64 Code: 8480-6 BMI: 36.5 Code: 38843-3 Heart Rate 1: 62 bpm Height: 6' SpO2: 96% Weight: 269 lbs 01/18/2017 Blood Pressure 1: 140/80 Code: 8480-6 BMI: 36.5 Code: 74099-4 Heart Rate 1: 62 bpm Height: 6' SpO2: 94% Weight: 269 lbs 10/19/2016 Blood Pressure 1: 120/80 Code: 8480-6 BMI: 35.9 Code: 34666-3 Heart Rate 1: 64 bpm Height: 6' SpO2: 97% Weight: 265 lbs 08/17/2016 Blood Pressure 1: 112/76 Code: 8480-6 BMI: 36.1 Code: 02386-7 Heart Rate 1: 65 bpm Height: 6' SpO2: 97% Weight: 266 lbs 07/20/2016 Blood Pressure 1: 126/78 Code: 8480-6 BMI: 35.5 Code: 40415-5 Heart Rate 1: 60 bpm Height: 6' SpO2: 95% Weight: 262 lbs 04/19/2016 Blood Pressure 1: 132/78 Code: 8480-6 BMI: 35.1 Code: 23721-5 Heart Rate 1: 65 bpm Height: 6' SpO2: 98% Weight: 259 lbs 01/19/2016 Blood Pressure 1: 140/64 Code: 8480-6 BMI: 34.4 Code: 15358-4 Heart Rate 1: 61 bpm Height: 6' SpO2: 97% Weight: 254 lbs 10/16/2015 Blood Pressure 1: 108/66 Code: 8480-6 BMI: 35.3 Code: 01237-4 Heart Rate 1: 65 bpm Height: 6' SpO2: 96% Weight: 260 lbs 07/17/2015 Blood Pressure 1: 136/74 Code: 8480-6 BMI: 35.8 Code: 64621-9 Heart Rate 1: 59 bpm Height: 6' SpO2: 97% Weight: 263 lbs 13 07/03/2015 Weight: 265 lbs 04/16/2015 Blood Pressure 1: 130/82 Code: 8480-6 BMI: 36.1 Code: 54328-0 Heart Rate 1: 7694 bpm Height: 6' SpO2: 94% Weight: 266 lbs 02/19/2015 Blood Pressure 1: 160/90 Code: 8480-6 BMI: 35.8 Code: 73932-0 Heart Rate 1: 78 bpm Height: 6' SpO2: 94% Weight: 264 lbs 11/20/2014 Blood Pressure 1: 140/96 Code: 8480-6 BMI: 34.6 Code: 18680-2 Heart Rate 1: 92 bpm Height: 6' SpO2: 95% Weight: 255 lbs 11/05/2014 Blood Pressure 1: 132/70 Code: 8480-6 BMI: 34.6 Code: 48045-2 Heart Rate 1: 96 bpm Height: 6' SpO2: 98% Weight: 255 lbs 09/19/2014 Blood Pressure 1: 152/86 Code: 8480-6 BMI: 35.8 Code: 74480-5 Heart Rate 1: 82 bpm Height: 6' SpO2: 95% Weight: 264 lbs 07/24/2014 Blood Pressure 1: 142/82 Code: 8480-6 BMI: 34.7 Code: 77504-7 Heart Rate 1: 72 bpm Height: 6' Weight: 256 lbs 05/23/2014 Blood Pressure 1: 150/82 Code: 8480-6 BMI: 33.4 Code: 67425-3 Heart Rate 1: 68 bpm Height: 6' Weight: 246 lbs 04/18/2014 Blood Pressure 1: 132/84 Code: 8480-6 BMI: 33.2 Code: 20166-5 Heart Rate 1: 80 bpm Height: 6' Weight: 245 lbs 02/21/2014 Blood Pressure 1: 138/82 Code: 8480-6 BMI: 32.4 Code: 73980-3 Heart Rate 1: 85 bpm Height: 6' SpO2: 98% Weight: 239 lbs 12/25/2013 Blood Pressure 1: 146/80 Code: 8480-6 BMI: 30.5 Code: 35367-0 Heart Rate 1: 100 bpm Height: 6' Weight: 225 lbs 11/28/2013 Blood Pressure 1: 120/64 Code: 8480-6 BMI: 30.4 Code: 10738-3 Heart Rate 1: 68 bpm Height: 6' Weight: 224 lbs 11/14/2013 Blood Pressure 1: 124/80 Code: 8480-6 BMI: 30.0 Code: 95509-5 Heart Rate 1: 76 bpm Height: 6' Weight: 221 lbs Functional Status No Functional Status data History of Present Illness Symptom Name Status Result Effective Date Notes Location-Major in a generalized area 06/27/2018 None [...] Maxitrol and Polytrim seeing eye dr in [place]. Reports eye still feels irritated. headache Quality [...] data Encounters Encounter Performer Location Codes Date 27566 EST. PATIENT, LEVEL III Diagnosis: Tinea barbae and tinea capitis[ICD10: B35.0] Glory Long MD, [facility] CPT-4: 47249 06/27/2018 ([id number]) 30799 EST. 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 PATIENT, LEVEL III Diagnosis: Acute bronchitis due to other specified organisms[ICD10: J20.8] Antoinette Long MD, [facility] CPT-4: 44412 02/08/2018 ([id number]) 81167 EST. 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 PATIENT, LEVEL III Diagnosis: Essential (primary) hypertension[ICD10: I10] Diagnosis: Localized edema[ICD10: R60.0] Diagnosis: Cellulitis of left lower limb[ICD10: L03.116] Quyen Long MD, [facility] CPT-4: 69491 06/07/2017 ([id number]) 83704 EST. 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 PATIENT, LEVEL II Diagnosis: Rash and other nonspecific skin eruption[ICD10: R21] Glory Long MD, [facility] CPT-4: 53937 05/09/2017 ([id number]) 43390 EST. PATIENT, LEVEL II Diagnosis: Rash and other nonspecific skin eruption[ICD10: R21] Glory Long MD, [facility] CPT-4: 68654 04/25/2017 ([id number]) 53324 EST. PATIENT, LEVEL III Diagnosis: Cellulitis of left lower limb[ICD10: L03.116] Diagnosis: Rash and other nonspecific skin eruption[ICD10: R21] Glory Long MD [facility] CPT-4: 86544 2017 ([id number]) 00667 EST. PATIENT, LEVEL III Diagnosis: Cellulitis of left lower limb[ICD10: L03.116] Diagnosis: Rash and other nonspecific skin eruption[ICD10: R21] Glory Long MD, [facility] CPT-4: 01481 03/29/2017 00649 EST. PATIENT, LEVEL IV Diagnosis: Cellulitis of left lower limb[ICD10: L03.116] Antoinette Long MD [facility] CPT-4: 27811 03/17/2017 ([id number]) 32395 EST. PATIENT, LEVEL III Diagnosis: Rash and other nonspecific skin eruption[ICD10: R21] Glory Long MD, [facility] CPT-4: 87494 03/08/2017 65328 EST. PATIENT, LEVEL IV Diagnosis: Essential (primary) hypertension[ICD10: I10] Diagnosis: Muscle weakness (generalized)[ICD10: M62.81] Diagnosis: Body mass index (BMI) 36.0-36.9, adult[ICD10: Z68.36] Diagnosis: Family history of ischemic heart disease and other diseases of the circulatory system[ICD10: Z82.49] Antoinette Long MD [facility] CPT-4: 05795 02/17/2017 ([id number]) 35317 EST. PATIENT, LEVEL IV Diagnosis: Essential (primary) hypertension[ICD10: I10] Diagnosis: Muscle weakness (generalized)[ICD10: M62.81] Quyen Long MD [facility] CPT-4: 63781 01/18/2017 ([id number]) 28953 EST. 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 PATIENT, LEVEL III Diagnosis: Pain in left shoulder[ICD10: M25.512] Diagnosis: Rash and other nonspecific skin eruption[ICD10: R21] Glory Long MD, [facility] CPT-4: 27903 08/17/2016 ([id number]) 43875 EST. PATIENT, LEVEL IV Diagnosis: Essential (primary) hypertension[ICD10: I10] Diagnosis: Pain in left shoulder[ICD10: M25.512] Quyen Long MD, [facility] CPT-4: 93535 07/20/2016 ([id number]) 05999 EST. 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 PATIENT, LEVEL IV Diagnosis: Essential (primary) hypertension[ICD10: I10] Diagnosis: Other abnormal glucose[ICD10: R73.09] Diagnosis: Gastro-esophageal reflux disease without esophagitis[ICD10: K21.9] Diagnosis: Obesity, unspecified[ICD10: E66.9] Quyen Long MD, [facility] CPT- 4: 59415 04/16/2015 ([id number]) 64819 EST. PATIENT, LEVEL IV Diagnosis: ESSENTIAL HYPERTENSION[ICD9: 401.9] Diagnosis: OBESITY[ICD9: 278.00] Diagnosis: Post-polio limb muscle weakness[ICD9: 728.87] Quyen Long MD [facility] CPT-4: 62628 02/19/2015 ([id number]) 42466 EST. PATIENT, LEVEL IV Diagnosis: Shingles outbreak[ICD9: 053.9] Diagnosis: ESSENTIAL HYPERTENSION[ICD9: 401.9] Diagnosis: Earache[ICD9: 388.70] Quyen Long MD [facility] CPT-4: 89031 11/20/2014 ([id number]) 55950 EST. PATIENT, LEVEL III Diagnosis: Shingles outbreak[ICD9: 053.9] Diagnosis: Face pain[ICD9: 784.0] Diagnosis: Pain, eye, right[ICD9: 379.91] Quyen Long MD [facility] CPT-4: 15133 11/05/2014 ([id number]) 64845 EST. PATIENT, LEVEL V Diagnosis: Post-polio limb muscle weakness[ICD9: 728.87] Diagnosis: Post-polio syndrome[ICD9: 138] Diagnosis: Leg weakness[ICD9: 729.89] Diagnosis: Weakness[ICD9: 780.79] Diagnosis: Foot drop[ICD9: 736.79] Quyen Long MD [facility] CPT-4: 86427 09/19/2014 ([id number]) 19641 EST. PATIENT, LEVEL IV Diagnosis: ESSENTIAL HYPERTENSION[ICD9: 401.9] Diagnosis: Carotid bruit[ICD9: 785.9] Diagnosis: Seborrheic dermatitis[ICD9: 690.10] Diagnosis: Post-polio syndrome[ICD9: 138] Diagnosis: Vitamin D deficiency[ICD9: 268.9] Quyen Long MD, [facility] CPT- 4: 74746 07/24/2014 ([id number]) 51441 EST. PATIENT, LEVEL IV Diagnosis: Neck pain[ICD9: 723.1] Diagnosis: Post-polio syndrome[ICD9: 138] Diagnosis: Vitamin D deficiency[ICD9: 268.9] Diagnosis: Vitamin B12 deficiency[ICD9: 266.2] Diagnosis: Nocturia[ICD9: 788.43] Diagnosis: Leg weakness[ICD9: 729.89] Diagnosis: Elevated blood sugar[ICD9: 790.29] Glory Long MD, [facility] CPT- 4: 57853 05/23/2014 ([id number]) 40372 EST. PATIENT, LEVEL IV Diagnosis: ESSENTIAL HYPERTENSION[ICD9: 401.9] Diagnosis: HEADACHE[ICD9: 784.0] Diagnosis: EDEMA[ICD9: 782.3] Quyen Long MD, [facility] CPT-4: 87659 04/18/2014 71039 EST. PATIENT, LEVEL IV Diagnosis: Insomnia[ICD9: 780.52] Diagnosis: Post-polio syndrome[ICD9: 138] Diagnosis: Vitamin D deficiency[ICD9: 268.9] Diagnosis: Nocturnal hypoxemia[ICD9: 799.02] Glory Long MD, [facility] CPT- 4: 43719 02/21/2014 ([id number]) 67383 EST. PATIENT, LEVEL III Diagnosis: Tinea pedis[ICD9: 110.4] Diagnosis: Post-polio limb muscle weakness[ICD9: 728.87] Glory Long MD, [facility] CPT-4: 30903 12/25/2013 ([id number]) 88762 EST. PATIENT, LEVEL IV Diagnosis: Insomnia[ICD9: 780.52] Diagnosis: Vitamin B12 deficiency (dietary) anemia[ICD9: 281.1] Diagnosis: VITAMIN D DEFICIENCY[ICD9: 268.9] Diagnosis: Weakness[ICD9: 780.79] [facility] CPT-4: 61624 11/28/2013 ([id number]) OFFICE/OUTPATIENT VISIT NEW Diagnosis: Post-polio limb muscle weakness[ICD9: 728.87] Diagnosis: Post-polio syndrome[ICD9: 138] Diagnosis: Insomnia[ICD9: 780.52] Diagnosis: Arrhythmia[ICD9: 427.9] [facility] CPT-4: 59087 11/14/2013 Plan of Care Planned Activity Notes Codes Status Date Visit Plan: Tinea barbae -rx for ketoconazole written and instructed patient on use -instructed patient to call or return to clinic if symptoms do not resolve or if any worse. Patient verbalized understanding of plan. 06/27/2018 Appointment: Glory Dalton WPtel: [phone] [place] (30 min) Complex 06/27/2018 Patient Education: [...] 04/20/2018 Appointment: Quyen Long WPtel: [facility] (15 min) Moderate 04/20/2018 Patient Education: Patient Medication Summary Completed 04/20/2018 Patient Education: Hypertension Completed 04/20/2018 Appointment: Quyen Long WPtel: [facility] [place] (15 min) Moderate 04/11/2018 Visit Plan: Post polio syndrome -right leg weakness -patient needs repair and adjustment of his right leg brace that helps with his symptoms of instability and weakness and allows him to ambulate -will send rx to [facility] 03/21/2018 Appointment: Glory Dalton WPtel: [phone] (15 min) Moderate 03/21/2018 Patient Education: Patient [...] worsen. 02/08/2018 [phone] ([facility] Complex 02/08/2018 Patient Education: [...] Completed 12/27/2017 [phone] ([facility] min) Moderate 12/08/2017 Visit Plan: Hypertension [...] shoulder injection. 12/06/2017 Appointment: Quyen Long WPtel: [address] [place], [place] [address] (15 min) Moderate 12/06/2017 Patient Education: Patient [...] 09/07/2017 Appointment: Quyen Long WPtel: [facility] (15 min) Moderate 09/07/2017 Patient Education: Patient [...] 06/07/2017 Appointment: Quyen Long WPtel: [facility] (15 min) Moderate 06/07/2017 Patient Education: [...] compression recommended. 05/19/2017 Appointment: Quyen Long WPtel: [phone] [facility] (15 min) Moderate 05/19/2017 Patient Education: Patient Medication Summary Completed 05/19/2017 Patient Education: Obesity Completed 05/19/2017 Patient Education: Hypertension Completed 05/19/2017 Visit Plan: Rash-left zlvd-dvzzwouw-jmljwrmvbx patient to continue using ketoconazole plus betamethasone equal parts and increase to TID-leave foot open to air as much as possible-follow up in 2 weeks, sooner if needed. 05/09/2017 Appointment: Glory Dalton WPtel: [phone] (30 min) Complex 05/09/2017 Patient Education: Patient Medication Summary Completed 05/09/2017 Patient Education: Obesity Completed 05/09/2017 Visit Plan: Rash-left foot-Dr Long in to evaluate rash-instructed patient to start using ketoconazole plus betamethasone equal parts TID -follow up in 2 weeks, sooner if needed. 04/25/2017 Appointment: Glory Dalton WPtel: [phone] (30 min) Complex 04/25/2017 Patient Education: Patient Medication Summary Completed 04/25/2017 Visit Plan: Cellulitis of left foot-no longer draining-no open areas-no excoriation-slightly red-okay to d/c all treatments-keep clean and monitor-call if redness does not resolve Rash-resolved 2017 Appointment: Glory Dalton WPtel: [phone] (30 min) Complex 2017 Patient Education: Patient Medication Summary Completed 2017 Patient Education: Obesity Completed 2017 Visit Plan: Cellulitis-left foot-MSSA ndnagblv-cpicaxlst-fxyxz air in the evening-continue bactroban ointment twice daily-stop using alcohol on foot-no papertowels or abrasives to foot Lmip-zgcj-he for betamethasone provided and instructed on use 03/29/2017 Appointment: Glory Dalton WPtel: [phone] (30 min) Complex 03/29/2017 Patient Education: Patient Medication Summary Completed 03/29/2017 Patient Education: Obesity Completed 03/29/2017 Appointment: Glory Dalton WPtel: [phone] (30 min) Complex 03/22/2017 Visit Plan: Cellulitis [...] warmth, discharge. 03/17/2017 Appointment: Antoinette Arndt WPtel: [address] [place], [place] [address] (30 min) [facility] 03/17/2017 Patient Education: Patient Medication Summary [...] Appointment: Quyen Long WPtel: [facility] (15 min) Moderate 01/18/2017 Patient Education: [...] and weakness. 10/19/2016 Appointment: Quyen Long WPtel: [phone] [facility] (15 min) Moderate 10/19/2016 Patient Education: Patient Medication Summary Completed 10/19/2016 Patient Education: Obesity Completed 10/19/2016 Visit Plan: Left shoulder pain-hospital f/u recent shoulder surgery with Dr Wilson-doing well-sees Dr Wilson this afternoon for suture removal-pain improved Zsnu-fzxf-zaczomy fungal infection-will treat with ket oconazole -follow up in 2 weeks 08/17/2016 [facility]ment: [phone] [place] (30 min) Complex 08/17/2016 Patient Education: [...] when ambulating. 07/20/2016 Appointment: Quyen Long WPtel: [phone] [facility] (15 min) Moderate 07/20/2016 Patient Education: Patient [...] for strengthening. 04/19/2016 Appointment: [phone] (15 min) Moderate 04/19/2016 Patient Education: Patient [...] appointment. 01/19/2016 Appointment: Quyen Long [facility]Ptel[phone] (15 min) Moderate 01/19/2016 Patient Education: Patient Medication Summary Completed 01/19/2016 Patient Education: Obesity Completed 01/19/2016 Patient Education: Hypertension Completed 01/19/2016 Referral: Dr Mccauley Referral Completed 11/11/2015 Care Plan: Referral Order SNOMED-CT : [id number] Pending 11/03/2015 Visit Plan: Hypertension - well [...] injection 10/16/2015 Appointment: Quyen Long [facility]Ptel[phone] (15 min) Moderate 10/16/2015 Patient Education: Patient [...] center - 02/19/2015 Appointment: Quyen Long [facility]Ptel[phone] (15 min) Moderate 02/19/2015 Patient Education: Patient [...] ear drops. 11/20/2014 Appointment: Quyen Long [facility]Ptel[phone] Follow up 11/20/2014 Patient Education: Patient Medication [...] his eye doctor [facility]. 11/05/2014 Appointment: Quyen oLng WPtel[phone] (15 min) Moderate 11/05/2014 Patient Education: Patient [...] to participate in activities outside of the [facility]. He has a family that would like [...] and lower leg and foot. 09/19/2014 Appointment: Ethan[facility]el[phone] [place] Follow up 09/19/2014 Patient Education: Patient [...] deficiency - recommended repeat of vitamin d 06055sfanr weekly x 12 weeks and increase vitamin d to 5000 units daily. 07/24/2014 Appointment: Quyen Long WPtel: [facility] Follow up 07/24/2014 Patient Education: Patient Medication [...] B12 level 05/23/2014 Appointment: Glory Dalton [facility]Ptel[phone] [place] Follow up 05/23/2014 Patient Education: Patient Medication Summary Completed 05/23/2014 Patient Education: .Cervicalgia Neck Pain Completed 05/23/2014 Appointment: Quyen Long WPtel: [id number] [place] Follow up 05/22/2014 Visit Plan: Edema [...] home. 04/18/2014 Appointment: Quyen Long WPtel: [id number] Follow up 04/18/2014 Patient Education: Patient Medication Summary Completed 04/18/2014 Patient Education: Hypertension Completed 04/18/2014 Appointment: Quyen Long WPtel: [id number] Follow up 02/27/2014 Visit Plan: Insomnia - Pt has been advised to increase the light in the house during the day, and start dimming the lights during the evening hours. Pt has been advised to cut out caffeine after 5pm. Daytime napping worsens night time insomnia. START TRAZODONE AND MONITOR SYMPTOMS. Vitamin D hxhlwbeemr-qysysgnf-wlyzsvjn vitamin D 50,000 units weekly for 12 additional weeks. Hypoxemia-continue night time oxygen 02/21/2014 [id number] [place] Follow up 02/21/2014 Patient Education: Patient Medication [...] walker with a seat provided. 12/25/2013 Appointment: eloy received medicaid card yet [...] on mobic. 11/28/2013 Appointment: Quyen Long WPtel: [id number] Follow up 11/28/2013 Patient Education: Patient Medication [...] oxygen study. 11/14/2013 Appointment: Quyen Long WPtel: [id number] [place] New Patient 11/14/2013 Patient Education: Patient [...] START TRAZODONE AND MONITOR SYMPTOMS. Vitamin D ozqwtmtajd-akrjjlvu-yopcvhav vitamin D 50,000 units weekly for 12 [...] up in 10 days . Cellulitis-left foot-MSSA yxmfdscc-itwxxlroj-kijas air in the evening-continue bactroban ointment twice daily-stop using alcohol on foot-no papertowels or abrasives to foot Vsfa-tfxo-vf for betamethasone provided and instructed on use [...] patient to start with therapy at the [facility] - KETOCONAZOLE mixed with BETAMETHASONE THREE [...] and dressings to lower leg. . Rash-left dqjq-ochfrlbn-avbgauezkf patient to continue using ketoconazole plus betamethasone [...] deficiency - recommended repeat of vitamin d [id number] weekly x 12 weeks and increase vitamin [...] Wilson this afternoon for suture removal-pain improved Dclw-yabf-yglnees fungal infection-will treat with ketoconazole -follow up [...] to participate in activities outside of the [facility]. He has a family that would like [...] him to ambulate -will send rx to [facility]
--- OUTSIDE RECORDS SUMMARY | 2018-11-10 15:58 | XMS REPORT | CCD ---
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 Density Finishing Operator Name Role Phone PP Unavailable CCM Unavailable Summary Purpose Interface Exchange Insurance Providers Payer name Policy type / Coverage type Covered republican ID Effective Begin Date Effective End Date WPS Medicare Part B Medicare Part B [id number] 2017 Unknown [facility] Medicare Part B [id number] 2017 Unknown Family history Grandmother Diagnosis Age [...] Description Effective Dates Tobacco history SNOMED CT: 5682249 Former smoker 1.5 pack daily x 45 years 12/27/2017 Marital status Unknown 10/19/2016 Living arrangements Unknown Assisted Living [facility] 04/19/2016 Number of children Unknown 1 son - lives in [place] 11/14/2013 Employment 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 11/14/[address]: 991493306 Never drinks alcohol 11/14/2013 Has the patient [...] Start Date Stop Date Status Fill Instructions cetirizine 10 mg tablet RxNorm: 1336385 TAKE ONE TABLET BY MOUTH EVERY NIGHT AT BEDTIME 08/07/2018 03/04/2019 Active trazodone 50 mg tablet RxNorm: 277391 TAKE ONE TABLET BY MOUTH AT BEDTIME 07/18/2018 11/14/2018 Active ketoconazole 2 % shampoo RxNorm: 970932 1 TOP BIW 06/27/2018 No Stop Date Active Vitamin B-12 1,000 mcg/mL injection solution RxNorm: 442778 INJECT 1ML MONTHLY 06/19/2018 11/15/2018 Active Request already responded to by other means (e.g. phone or fax) Vitamin B-12 1,000 mcg/mL injection solution RxNorm: 768378 Milliliter(s) INJECT 1ML MONTHLY 06/15/2018 06/18/2018 Inactive Zithromax Z-Brian 250 mg tablet RxNorm: 080071 1 Tablet(s) PO UD 06/14/2018 No Stop Date Active zpack as directed x1 tamsulosin 0.4 mg capsule RxNorm: 256808 TAKE ONE CAPSULE BY MOUTH EVERY EVENING 06/12/2018 01/07/2019 Active gabapentin 300 mg capsule RxNorm: 592462 TAKE ONE CAPSULE BY MOUTH TWICE A DAY 05/31/2018 09/27/2018 Active losartan 50 mg tablet RxNorm: 927961 TAKE ONE TABLET BY MOUTH DAILY 05/01/2018 09/27/2018 Active Toprol XL 50 mg tablet,extended release RxNorm: 034051 1 Tablet(s) PO daily 04/20/2018 No Stop Date Active Vitamin D3 5,000 unit tablet RxNorm: 904808 TAKE ONE TABLET BY MOUTH DAILY 04/05/2018 02/28/2019 Active trazodone 50 mg tablet RxNorm: 963464 TAKE ONE TABLET BY MOUTH AT BEDTIME 02/27/2018 07/17/2018 Inactive ranitidine 150 mg tablet RxNorm: 760971 1 Tablet(s) PO BID 02/13/2018 02/07/2019 Active hydrochlorothiazide 25 mg tablet RxNorm: 154539 TAKE ONE TABLET BY MOUTH DAILY 02/13/2018 11/09/2018 Active albuterol sulfate 2.5 mg/3 mL (0.083 %) solution for nebulization RxNorm: 447837 3 Milliliter(s) INH UD 02/08/2018 No Stop Date Active please deliver all of his prescriptions thank you cefdinir 300 mg capsule RxNorm: 939913 1 Capsule(s) PO BID 02/08/2018 02/17/2018 Inactive prednisone 20 mg tablet RxNorm: 844715 2 Tablet(s) PO daily 02/08/2018 02/12/2018 Inactive fluticasone 50 mcg/actuation nasal spray,suspension RxNorm: 4506435 1 [place] NASAL BID 02/07/2018 06/06/2018 Inactive fluticasone 50 mcg/actuation nasal spray,suspension RxNorm: 5690833 1 [place] NASAL BID 02/07/2018 02/06/2018 Inactive Zithromax Z-Brian 250 mg tablet RxNorm: 297473 1 Tablet(s) PO UD 02/07/2018 03/14/2018 Inactive robin as directed tamsulosin 0.4 mg capsule RxNorm: 784023 TAKE ONE CAPSULE BY MOUTH EVERY EVENING 01/13/2018 06/11/2018 Inactive Vitamin D3 5,000 unit tablet RxNorm: 560551 TAKE ONE TABLET BY MOUTH DAILY 01/02/2018 04/04/2018 Inactive cetirizine 10 mg tablet RxNorm: 2594278 TAKE ONE TABLET BY MOUTH EVERY NIGHT AT BEDTIME 01/02/2018 04/01/2018 Inactive cetirizine 10 mg tablet RxNorm: 4398462 1 Tablet(s) PO QHS 12/26/2017 01/01/2018 Inactive cetirizine 10 mg tablet RxNorm: 1424249 1 Tablet(s) PO QHS 12/26/2017 12/25/2017 Inactive losartan 50 mg tablet RxNorm: 720023 TAKE ONE TABLET BY MOUTH DAILY (STARTING 09-09-2017) 09/29/2017 03/27/2018 Inactive Request already responded to by other means (e.g. phone or fax) losartan 50 mg tablet RxNorm: 456927 1 Tablet(s) PO daily 09/27/2017 09/26/2017 Inactive losartan 50 mg tablet RxNorm: 616352 1 Tablet(s) PO daily 09/27/2017 09/28/2017 Inactive Bactrim DS 800 mg-160 mg tablet RxNorm: 516061 1 Tablet(s) PO BID 09/13/2017 09/19/2017 Inactive Kenalog 40 mg/mL suspension for injection RxNorm: 4759562 1 Milliliter(s) Inj 09/07/2017 09/07/2017 Inactive trazodone 50 mg tablet RxNorm: 601924 TAKE ONE TABLET BY MOUTH AT BEDTIME 08/16/2017 02/11/2018 Inactive gabapentin 300 mg capsule RxNorm: 745222 1 Capsule(s) PO BID 08/03/2017 01/29/2018 Inactive Vitamin D3 5,000 unit tablet RxNorm: 240409 TAKE ONE TABLET BY MOUTH DAILY 08/01/2017 12/28/2017 Inactive ketoconazole 2 % topical cream RxNorm: 417834 APPLY TO AFFECTED AREA(S) TWO TIMES A DAY 05/31/2017 06/29/2017 Inactive hydrochlorothiazide 25 mg tablet RxNorm: 394853 TAKE ONE TABLET BY MOUTH DAILY 05/16/2017 02/09/2018 Inactive lisinopril 20 mg tablet RxNorm: 091850 TAKE ONE TABLET BY MOUTH DAILY 05/16/2017 09/06/2017 Inactive ketoconazole 2 % topical cream RxNorm: 917264 1 Application TOP BID 03/29/2017 04/11/2017 Inactive apply to faice-deliver to [facility] please betamethasone dipropionate 0.05 % topical ointment RxNorm: 887463 1 Application TOP BID 03/29/2017 04/11/2017 Inactive apply to arm/chests for itching gabapentin 300 mg capsule RxNorm: 079997 1 Capsule(s) PO BID 03/29/2017 08/02/2017 Inactive trazodone 50 mg tablet RxNorm: 313995 TAKE ONE TABLET BY MOUTH AT BEDTIME 03/28/2017 08/15/2017 Inactive Vesicare 10 mg tablet RxNorm: 357221 TAKE ONE TABLET BY MOUTH EVERY NIGHT AT BEDTIME 03/21/2017 12/26/2017 Inactive Vesicare 10 mg tablet RxNorm: 025792 TAKE ONE TABLET BY MOUTH EVERY NIGHT AT BEDTIME 03/21/2017 06/06/2017 Inactive doxycycline hyclate 100 mg capsule RxNorm: 1124764 1 Capsule(s) PO BID 03/18/2017 03/27/2017 Inactive mupirocin 2 % topical ointment RxNorm: 518097 1 Application TOP BID 03/17/2017 No Stop Date Active doxycycline hyclate 100 mg tablet RxNorm: 765414 1 Tablet(s) PO BID 03/09/2017 03/15/2017 Inactive Take probiotic BID while on ABT doxycycline hyclate 100 mg tablet RxNorm: 037586 1 Tablet(s) PO BID 03/09/2017 03/08/2017 Inactive Take probiotic BID while on ABT meloxicam 15 mg tablet RxNorm: 586432 TAKE ONE TABLET BY MOUTH DAILY 02/10/2017 12/06/2017 Inactive Vitamin D3 5,000 unit tablet RxNorm: 226904 TAKE ONE TABLET BY MOUTH DAILY 02/08/2017 07/31/2017 Inactive Vitamin B-12 1,000 mcg/mL injection solution RxNorm: 951023 INJECT 1ML MONTHLY 01/24/2017 07/22/2017 Inactive lisinopril 20 mg tablet RxNorm: 284998 TAKE ONE TABLET BY MOUTH DAILY 12/13/2016 04/11/2017 Inactive trazodone 50 mg tablet RxNorm: 936374 TAKE ONE TABLET BY MOUTH AT BEDTIME 09/24/2016 03/22/2017 Inactive Vitamin D3 5,000 unit tablet RxNorm: 276532 TAKE ONE TABLET BY MOUTH DAILY 09/20/2016 02/07/2017 Inactive lisinopril 20 mg tablet RxNorm: 974151 TAKE ONE TABLET BY MOUTH DAILY 09/13/2016 12/12/2016 Inactive ketoconazole 2 % topical cream RxNorm: 304666 1 Application TOP BID 08/17/2016 08/30/2016 Inactive deliver to [facility] [place] please Pepcid 20 mg tablet RxNorm: 326617 TAKE ONE TABLET BY MOUTH TWICE A DAY 07/12/2016 12/26/2017 Inactive omega-3 acid ethyl esters 1 gram capsule RxNorm: 279665 3 Capsule(s) PO daily 06/18/2016 12/14/2016 Inactive omega-3 acid ethyl esters 1 gram capsule RxNorm: 658104 3 Capsule(s) PO daily 06/18/2016 06/17/2016 Inactive trazodone 50 mg tablet RxNorm: 939490 TAKE ONE TABLET BY MOUTH AT BEDTIME 06/08/2016 08/06/2016 Inactive tamsulosin 0.4 mg capsule RxNorm: 287976 Capsule(s) TAKE ONE CAPSULE BY MOUTH EVERY EVENING 06/04/2016 12/30/2016 Inactive hydrochlorothiazide 25 mg tablet RxNorm: 325030 TAKE ONE TABLET BY MOUTH DAILY 05/10/2016 05/09/2016 Inactive hydrochlorothiazide 25 mg tablet RxNorm: 865507 TAKE ONE TABLET BY MOUTH DAILY 05/10/2016 02/12/2018 Inactive Pepcid 20 mg tablet RxNorm: 589854 1 Tablet(s) PO BID 03/18/2016 03/17/2016 Inactive Pepcid 20 mg tablet RxNorm: 945923 1 Tablet(s) PO BID 03/18/2016 07/11/2016 Inactive lisinopril 20 mg tablet RxNorm: 799076 TAKE ONE TABLET BY MOUTH DAILY 03/18/2016 08/14/2016 Inactive Vitamin D3 5,000 unit tablet RxNorm: 338078 Tablet(s) TAKE ONE TABLET BY MOUTH DAILY 03/18/2016 09/13/2016 Inactive trazodone 50 mg tablet RxNorm: 723749 TAKE ONE TABLET BY MOUTH AT BEDTIME 03/15/2016 06/07/2016 Inactive Vesicare 10 mg tablet RxNorm: 637311 1 Tablet(s) PO QHS 03/15/2016 02/07/2017 Inactive meloxicam 15 mg tablet RxNorm: 164326 TAKE ONE TABLET BY MOUTH DAILY 03/01/2016 01/24/2017 Inactive Bactrim DS 800 mg-160 mg tablet RxNorm: 926823 1 Tablet(s) PO BID 02/10/2016 02/09/2016 Inactive Bactrim DS 800 mg-160 mg tablet RxNorm: 330940 1 Tablet(s) PO BID 02/10/2016 02/16/2016 Inactive Cipro 500 mg tablet RxNorm: 855816 1 Tablet(s) PO BID 02/06/2016 02/09/2016 Inactive Cipro 500 mg tablet RxNorm: 791183 1 Tablet(s) PO BID 02/06/2016 02/05/2016 Inactive Pennsaid 20 mg/gram/actuation (2 %) topical soln in metered- dose pump RxNorm: 1478121 2 pumps TOP BID 01/19/2016 04/19/2016 Inactive tamsulosin 0.4 mg capsule RxNorm: 179458 TAKE ONE CAPSULE BY MOUTH EVERY EVENING 01/12/2016 06/03/2016 Inactive cyanocobalamin (vit B-12) 1,000 mcg/mL injection solution RxNorm: 570920 INJECT 1 ML INTRAMUSCULARLY MONTHLY 01/01/2016 10/26/2016 Inactive Request already responded to by other means (e.g. phone or fax) Vitamin B-12 1,000 mcg/mL injection solution RxNorm: 792552 1 Milliliter(s) Inj monthly 12/24/2015 04/19/2016 Inactive please give syringes for injections Vitamin D3 5,000 unit tablet RxNorm: 505360 TAKE ONE TABLET BY MOUTH DAILY 12/08/2015 03/06/2016 Inactive pantoprazole 40 mg tablet,delayed release RxNorm: 591655 TAKE ONE TABLET BY MOUTH DAILY 12/08/2015 03/17/2016 Inactive trazodone 50 mg tablet RxNorm: 006778 TAKE ONE TABLET BY MOUTH AT BEDTIME 11/10/2015 03/08/2016 Inactive lisinopril 20 mg tablet RxNorm: 722873 TAKE ONE TABLET BY MOUTH DAILY 09/08/2015 03/05/2016 Inactive Vitamin D3 5,000 unit tablet RxNorm: 220673 1 Tablet(s) PO daily 08/12/2015 12/07/2015 Inactive pantoprazole 40 mg tablet,delayed release RxNorm: 741802 1 Tablet(s) PO daily 08/12/2015 12/07/2015 Inactive tamsulosin 0.4 mg capsule RxNorm: 797283 TAKE ONE CAPSULE BY MOUTH EVERY EVENING 07/21/2015 12/17/2015 Inactive trazodone 50 mg tablet RxNorm: 077246 TAKE ONE TABLET BY MOUTH AT BEDTIME 05/09/2015 10/05/2015 Inactive hydrochlorothiazide 25 mg tablet RxNorm: 459796 1 Tablet(s) PO QAM 04/30/2015 04/29/2015 Inactive hydrochlorothiazide 25 mg tablet RxNorm: 260591 TAKE ONE TABLET BY MOUTH DAILY 04/30/2015 02/12/2018 Inactive pantoprazole 40 mg tablet,delayed release RxNorm: 872200 1 Tablet(s) PO daily 04/16/2015 08/11/2015 Inactive meloxicam 15 mg tablet RxNorm: 773496 TAKE ONE TABLET BY MOUTH DAILY 03/03/2015 02/25/2016 Inactive lisinopril 20 mg tablet RxNorm: 282658 1 Tablet(s) PO daily 02/19/2015 09/07/2015 Inactive tamsulosin 0.4 mg capsule RxNorm: 659838 TAKE ONE CAPSULE BY MOUTH EVERY EVENING 01/20/2015 07/18/2015 Inactive cyanocobalamin (vit B-12) 1,000 mcg/mL injection solution RxNorm: 459609 Milliliter(s) INJECT 1ML INTRAMUSCULARLY MONTHLY 12/12/2014 12/22/2014 Inactive trazodone 50 mg tablet RxNorm: 817808 TAKE ONE TABLET BY MOUTH AT BEDTIME 11/14/2014 05/08/2015 Inactive erythromycin 5 mg/gram (0.5 %) eye ointment RxNorm: 652442 1/2 inch OPH QID 11/05/2014 11/14/2014 Inactive acyclovir 800 mg tablet RxNorm: 916739 1 Tablet(s) PO TID 11/05/2014 11/18/2014 Inactive Zofran 4 mg tablet RxNorm: 833896 1 Tablet(s) PO Q4H as needed nausea 11/05/2014 01/03/2015 Inactive Duragesic 12 mcg/hr transdermal patch RxNorm: 188339 1 Patch TD Q72H 11/05/2014 02/04/2015 Inactive Imitrex 100 mg tablet RxNorm: 302032 1 Tablet(s) PO q 12 hours 11/04/2014 04/15/2015 Inactive naproxen 500 mg tablet RxNorm: 425878 1 Tablet(s) PO BID 10/30/2014 11/01/2014 Inactive meloxicam 15 mg tablet RxNorm: 217042 TAKE ONE TABLET BY MOUTH DAILY 10/04/2014 03/02/2015 Inactive Vesicare 5 mg tablet RxNorm: 010798 TAKE ONE TABLET BY MOUTH AT BEDTIME 09/16/2014 07/16/2015 Inactive Vitamin D2 50,000 unit capsule RxNorm: 136852 1 Capsule(s) PO QW 09/06/2014 07/16/2015 Inactive once weekly x 12 weeks tamsulosin ER 0.4 mg capsule,extended release 24 hr RxNorm: 347870 TAKE ONE CAPSULE BY MOUTH EVERY EVENING 06/24/2014 12/20/2014 Inactive tamsulosin ER 0.4 mg capsule,extended release 24 hr RxNorm: 610275 1 Capsule(s) PO QPM 06/24/2014 01/19/2015 Inactive Vitamin D2 50,000 unit capsule RxNorm: 824505 1 Capsule(s) PO QW 05/27/2014 09/05/2014 Inactive once weekly x 12 weeks Vesicare 5 mg tablet RxNorm: 562923 1 Tablet(s) PO QHS 05/23/2014 05/22/2014 Inactive Vesicare 5 mg tablet RxNorm: 768694 1 Tablet(s) PO QHS 05/23/2014 09/15/2014 Inactive trazodone 50 mg tablet RxNorm: 009061 TAKE ONE TABLET BY MOUTH AT BEDTIME 05/13/2014 11/08/2014 Inactive trazodone 50 mg tablet RxNorm: 678464 TAKE ONE TABLET BY MOUTH AT BEDTIME 05/13/2014 11/08/2014 Inactive hydrochlorothiazide 25 mg tablet RxNorm: 540873 1 Tablet(s) PO QAM 04/18/2014 01/12/2015 Inactive Vitamin D2 50,000 unit capsule RxNorm: 471904 TAKE ONE CAPSULE BY MOUTH ONCE WEEKLY FOR 12 WEEKS 04/09/2014 05/14/2014 Inactive trazodone 50 mg tablet RxNorm: 002032 1 Tablet(s) PO QHS 02/22/2014 05/12/2014 Inactive trazodone 50 mg tablet RxNorm: 731044 1 Tablet(s) PO QHS 02/22/2014 02/21/2014 Inactive Vitamin D2 50,000 unit capsule RxNorm: 899505 TAKE ONE CAPSULE BY MOUTH ONCE WEEKLY FOR 12 WEEKS 02/07/2014 03/06/2014 Inactive meloxicam 15 mg tablet RxNorm: 127322 TAKE ONE TABLET BY MOUTH ONCE A DAY 02/07/2014 08/05/2014 Inactive meloxicam 15 mg tablet RxNorm: 088488 TAKE ONE TABLET BY MOUTH ONCE A DAY 02/07/2014 2014 Inactive clotrimazole 1 % topical cream RxNorm: 289004 1 Application TOP BID 12/25/2013 07/16/2015 Inactive Diflucan 150 mg tablet RxNorm: 571825 1 Tablet(s) PO daily 12/25/2013 12/31/2013 Inactive tamsulosin ER 0.4 mg capsule,extended release 24 hr RxNorm: 879489 1 Capsule(s) PO QPM 11/28/2013 06/23/2014 Inactive cyanocobalamin (vit B-12) 1,000 mcg/mL injection solution RxNorm: 423953 1 Milliliter(s) Inj 11/28/2013 12/12/2014 Inactive Vitamin B-12 1,000 mcg/mL injection solution RxNorm: 750407 1 Milliliter(s) Inj monthly 11/21/2013 02/13/2015 Inactive please give syringes for injections Vitamin D2 50,000 unit capsule RxNorm: 817521 1 Capsule(s) PO QW x 12 weeks 11/21/2013 02/06/2014 Inactive [SAVINGS FOR UNINSURED PATIENTS -- to take addtional 2000 units daily Vitamin B-12 1,000 mcg/mL injection solution RxNorm: 883000 1 Milliliter(s) Inj monthly 11/21/2013 11/20/2013 Inactive meloxicam 15 mg tablet RxNorm: 815488 1 Tablet(s) PO daily 11/20/2013 11/19/2013 Inactive [SAVINGS FOR UNINSURED PATIENTS -- BIN:[id number], PCN: [id number], Group: [id number], ID# [id number], Process claim through [employer], for questions: . THIS IS NOT INSURANCE.] meloxicam 15 mg tablet RxNorm: 898612 1 Tablet(s) PO daily 11/20/2013 02/06/2014 Inactive [SAVINGS FOR UNINSURED PATIENTS -- BIN:[id number], PCN: ASPROD1, Group: [id number], ID# [id number], Process claim through [email or web address], for questions: . THIS IS NOT INSURANCE.] meloxicam 15 mg tablet RxNorm: 549900 1 Tablet(s) PO daily 11/20/2013 11/19/2013 Inactive Voltaren 1 % topical gel RxNorm: 049179 4 Application TOP QID apply to back, affected joints four times daily 11/14/2013 11/20/2013 Inactive trazodone 50 mg tablet RxNorm: 263808 1 Tablet(s) PO QHS No Start Date Active Vitamin D2 50,000 unit capsule RxNorm: 947576 1 Capsule(s) PO QW No Start Date 05/26/2014 Inactive once weekly x 12 weeks Zithromax Z-Brian 250 mg tablet RxNorm: 805520 1 Tablet(s) PO UD No Start Date 02/06/2018 Inactive Vitamin D2 50,000 unit capsule RxNorm: 566229 1 Capsule(s) PO QW No Start Date 11/20/2013 Inactive gabapentin 300 mg capsule RxNorm: 402599 1 Capsule(s) PO TID No Start Date 03/28/2017 Inactive Vesicare 10 mg tablet RxNorm: 721052 1 Tablet(s) PO QHS No Start Date 03/14/2016 Inactive Toprol XL 25 mg tablet,extended release RxNorm: 026867 1 Tablet(s) PO daily No Start Date 04/19/2018 Inactive Vitamin D3 5,000 unit tablet RxNorm: 896071 1 Tablet(s) PO daily No Start Date 08/11/2015 Inactive Celebrex 200 mg capsule RxNorm: 484559 1 Capsule(s) PO BID No Start Date 07/19/2016 Inactive Imitrex 50 mg tablet RxNorm: 903235 1 Tablet(s) PO now and may repeat up to four times in 24 hours No Start Date 11/03/2014 Inactive Zofran 4 mg tablet RxNorm: 973310 1 Tablet(s) PO Q8 as needed nausea and vomitting No Start Date 10/15/2015 Inactive ranitidine 150 mg tablet RxNorm: 605066 1 Tablet(s) PO BID No Start Date 02/12/2018 Inactive Phenergan 25 mg tablet RxNorm: 356160 1 Tablet(s) PO now No Start Date 04/15/2015 Inactive Tums oral RxNorm: 039419 oral No Start Date 10/15/2015 Inactive Medication Administered Medication Codes Instructions Start Date Status Kenalog 40 mg/mL suspension for injection RxNorm: 4093933 1Milliliter 09/07/2017 No longer Active cyanocobalamin (vit B-12) 1,000 mcg/mL injection solution RxNorm: 359460 1Milliliter 11/28/2013 No longer Active Immunizations Vaccine [...] recently went to an eye doctor in [place]. Reports that he did have hemorrhaging in his right eye which is getting better. headache 04/18/2014 Pt states he recently went to an eye doctor in [place] shortness of breath 02/21/2014 blisters 12/25/2013 insomnia 11/28/2013 back pain 11/14/2013 Results Observation Observation Code Item Item Code Result Date Vitamin D 25 Oh [id number] VITAMIN D, 25 HYDROXY 66.80 ng/mL 03/14/2018 Cbc With Differential Ord2 WBC 5.63 K/ul 03/14/2018 Cbc With Differential Ord2 RBC 4.53 M/ul 03/14/2018 Cbc With Differential Ord2 HGB 12.9 g/dl 03/14/2018 Cbc With Differential Ord2 HCT 40.6 % 03/14/2018 Cbc With Differential Ord2 Neut% 66.1 % 03/14/2018 Cbc With Differential Ord2 Lymph% 22.7 % 03/14/2018 Cbc With Differential Ord2 MCV 89.6 fl 03/14/2018 Cbc With Differential Ord2 MCH 28.5 pg 03/14/2018 Cbc With Differential Ord2 Clinch% 7.6 % 03/14/2018 Cbc With Differential Ord2 [...] 1.28 K/ul 03/14/2018 Cbc With Differential Ord2 Clinch ABS# 0.4 K/ul 03/14/2018 Cbc With Differential [...] Lipid Ord30 C/HDL 5.0 Ratio 06/27/2017 %Hba1C Ddr899 % HbA1c 85909- 6 6.2 % 06/27/2017 %Hba1C Lht047 Gluc Ave 131 mg/dL 06/27/2017 Comp Metabolic Vwi505 NA 140 mEq/L 06/27/2017 Comp Metabolic Aog839 K 4.2 mEq/L 06/27/2017 Comp Metabolic Nih886 CL 100 mEq/L 06/27/2017 Comp Metabolic Jpk709 CO2 32.0 mEq/L 06/27/2017 Comp Metabolic Kse758 ANION GAP 12 06/27/2017 Comp Metabolic Xrc042 GLUCOSE 118 mg/dL 06/27/2017 Comp Metabolic Vok186 Creat 1.0 mg/dL 06/27/2017 Comp Metabolic Hyt413 eGFR 82 ml/min/1.73m2 06/27/2017 Comp Metabolic Pkt554 BUN 26 mg/dL 06/27/2017 Comp Metabolic Bps640 B/C Ratio 27.1 Ratio 06/27/2017 Comp Metabolic Jyi317 CALCIUM 9.6 mg/dL 06/27/2017 Comp Metabolic Qcw684 ALK PHOS 46 U/L 06/27/2017 Comp Metabolic Qys911 AST(SGOT) 23 U/L 06/27/2017 Comp Metabolic Mgb534 ALT(SGPT) 31 U/L 06/27/2017 Comp Metabolic Jnw744 BILI T 0.5 mg/dL 06/27/2017 Comp Metabolic Llk478 ALBUMIN 4.2 g/dL 06/27/2017 Comp Metabolic Rbe847 TPRO 6.6 g/dL 06/27/2017 Comp Metabolic Syz223 GLOB 2.4 g/dL 06/27/2017 Comp Metabolic Gbp660 A/G Ratio 1.7 Ratio 06/27/2017 Comp Metabolic Ezl932 Osmo 285 mOsmo 06/27/2017 B12 Vll556 B12 544.00 pg/ml 10/20/2016 Lipid Ord30 CHOL 153 mg/dL 10/20/2016 Lipid Ord30 HDL 34.0 mg/dl 10/20/2016 Lipid Ord30 TRIG 123 mg/dL 10/20/2016 Lipid Ord30 LDL 94 mg/dL 10/20/2016 Lipid Ord30 C/HDL 4.5 Ratio 10/20/2016 Tsh Ord6 hTSH II 1.56 uIU/mL 10/20/2016 Comp Metabolic Ome544 NA 143 mEq/L 10/20/2016 Comp Metabolic Spt601 K 4.6 mEq/L 10/20/2016 Comp Metabolic Dyq703 CL 104 mEq/L 10/20/2016 Comp Metabolic Amp523 CO2 31.0 mEq/L 10/20/2016 Comp Metabolic Jkk307 ANION GAP 13 10/20/2016 Comp Metabolic Xfi743 GLUCOSE 117 mg/dL 10/20/2016 Comp Metabolic Bok102 Creat 1.1 mg/dL 10/20/2016 Comp Metabolic Gvd716 eGFR 74 ml/min/1.73m2 10/20/2016 Comp Metabolic Vvr078 BUN 27 mg/dL 10/20/2016 Comp Metabolic Hpy534 B/C Ratio 25.7 Ratio 10/20/2016 Comp Metabolic Czd348 CALCIUM 9.3 mg/dL 10/20/2016 Comp Metabolic Xrq990 ALK PHOS 47 U/L 10/20/2016 Comp Metabolic May511 AST(SGOT) 18 U/L 10/20/2016 Comp Metabolic Eqe780 ALT(SGPT) 22 U/L 10/20/2016 Comp Metabolic Olx770 BILI T 0.5 mg/dL 10/20/2016 Comp Metabolic Rec136 ALBUMIN 3.9 g/dL 10/20/2016 Comp Metabolic Jgk624 TPRO 6.5 g/dL 10/20/2016 Comp Metabolic Iah900 GLOB 2.6 g/dL 10/20/2016 Comp Metabolic Thr227 A/G Ratio 1.5 Ratio 10/20/2016 Comp Metabolic Oaj836 Osmo 291 mOsmo 10/20/2016 Cbc With Differential Ord2 WBC 4.54 K/ul 10/20/2016 Cbc With Differential Ord2 RBC 4.52 M/ul 10/20/2016 Cbc With Differential Ord2 HGB 13.1 g/dl 10/20/2016 Cbc With Differential Ord2 Neut% 56.9 % 10/20/2016 Cbc With Differential Ord2 HCT 40.5 % 10/20/2016 Cbc With Differential Ord2 MCV 89.6 fl 10/20/2016 Cbc With Differential Ord2 Lymph% 29.3 % 10/20/2016 Cbc With Differential Ord2 MCH 29.0 pg 10/20/2016 Cbc With Differential Ord2 Clinch% 9.0 % 10/20/2016 Cbc With Differential Ord2 MCHC 32.3 pg 10/20/2016 Cbc With Differential Ord2 Eos% 4.4 % 10/20/2016 Cbc With Differential Ord2 PLT 156 K/ul 10/20/2016 Cbc With Differential Ord2 Baso% 0.4 % 10/20/2016 Cbc With Differential Ord2 Neut ABS# 2.58 K/ul 10/20/2016 Cbc With Differential Ord2 RDW 14.4 % 10/20/2016 Cbc With Differential Ord2 Lymph ABS# 1.33 K/ul 10/20/2016 Cbc With Differential Ord2 Clinch ABS# 0.4 K/ul 10/20/2016 Cbc With Differential Ord2 Eos ABS# 0.2 K/ul 10/20/2016 Cbc With Differential Ord2 Baso ABS# 0.0 K/ul 10/20/2016 Comp Metabolic Yli747 NA 138 mEq/L 05/13/2016 Comp Metabolic Wai156 K 4.2 mEq/L 05/13/2016 Comp Metabolic Xjq139 CL 102 mEq/L 05/13/2016 Comp Metabolic Hpm211 CO2 30.0 mEq/L 05/13/2016 Comp Metabolic Eta710 ANION GAP 10 05/13/2016 Comp Metabolic Kpo483 GLUCOSE 113 mg/dL 05/13/2016 Comp Metabolic Tla510 Creat 1.0 mg/dL 05/13/2016 Comp Metabolic Yih991 eGFR 77 ml/min/1.73m2 05/13/2016 Comp Metabolic Lax917 BUN 26 mg/dL 05/13/2016 Comp Metabolic Zbf862 B/C Ratio 25.5 Ratio 05/13/2016 Comp Metabolic Tur707 CALCIUM 9.7 mg/dL 05/13/2016 Comp Metabolic Yuk334 ALK PHOS 51 U/L 05/13/2016 Comp Metabolic Wde456 AST(SGOT) 17 U/L 05/13/2016 Comp Metabolic Dmx813 ALT(SGPT) 20 U/L 05/13/2016 Comp Metabolic Ryz940 BILI T 0.6 mg/dL 05/13/2016 Comp Metabolic Dqj582 ALBUMIN 4.0 g/dL 05/13/2016 Comp Metabolic Qhl158 TPRO 6.6 g/dL 05/13/2016 Comp Metabolic Eyi694 GLOB 2.6 g/dL 05/13/2016 Comp Metabolic Onw584 A/G Ratio 1.6 Ratio 05/13/2016 Comp Metabolic Dtp494 Osmo 281 mOsmo 05/13/2016 Lipid Ord30 CHOL 172 mg/dL 05/13/2016 Lipid Ord30 HDL 31.0 mg/dl 05/13/2016 Lipid Ord30 TRIG 141 mg/dL 05/13/2016 Lipid Ord30 LDL 113 mg/dL 05/13/2016 Lipid Ord30 C/HDL 5.5 Ratio 05/13/2016 Comp Metabolic Eyk119 NA 138 mEq/L 02/11/2016 Comp Metabolic Yql671 K 4.0 mEq/L 02/11/2016 Comp Metabolic Jwl284 CL 97 mEq/L 02/11/2016 Comp Metabolic Vvo090 CO2 32.0 mEq/L 02/11/2016 Comp Metabolic Mdg393 ANION GAP 13 02/11/2016 Comp Metabolic Clx413 GLUCOSE 117 mg/dL 02/11/2016 Comp Metabolic Jsu084 Creat 1.0 mg/dL 02/11/2016 Comp Metabolic Dse769 eGFR 81 ml/min/1.73m2 02/11/2016 Comp Metabolic Rmg085 BUN 21 mg/dL 02/11/2016 Comp Metabolic Cqp616 B/C Ratio 21.4 Ratio 02/11/2016 Comp Metabolic Wzu366 CALCIUM 9.2 mg/dL 02/11/2016 Comp Metabolic Dmu188 ALK PHOS 48 U/L 02/11/2016 Comp Metabolic Xoj951 AST(SGOT) 18 U/L 02/11/2016 Comp Metabolic Twi304 ALT(SGPT) 22 U/L 02/11/2016 Comp Metabolic Sdc095 BILI T 0.5 mg/dL 02/11/2016 Comp Metabolic Gol896 ALBUMIN 3.9 g/dL 02/11/2016 Comp Metabolic Wos832 TPRO 6.3 g/dL 02/11/2016 Comp Metabolic Jxw297 GLOB 2.5 g/dL 02/11/2016 Comp Metabolic Cxl385 A/G Ratio 1.6 Ratio 02/11/2016 Comp Metabolic Yiw677 Osmo 280 mOsmo 02/11/2016 Lipid Ord30 CHOL 163 mg/dL 02/11/2016 Lipid Ord30 HDL 35.0 mg/dl 02/11/2016 Lipid Ord30 TRIG 200 mg/dL 02/11/2016 Lipid Ord30 LDL 88 mg/dL 02/11/2016 Lipid Ord30 C/HDL 4.7 Ratio 02/11/2016 B12 Xak769 B12 563.00 pg/ml 02/11/2016 Tsh Ord6 hTSH II 2.07 uIU/mL 02/11/2016 %Hba1C Ebl441 % HbA1c 64784- 6 6.5 % 02/11/2016 %Hba1C Jbt137 Gluc Ave 140 mg/dL 02/11/2016 Cbc With Differential Ord2 WBC 4.67 K/ul [...] 29.3 pg 02/11/2016 Cbc With Differential Ord2 Clinch% 7.7 % 02/11/2016 Cbc With Differential Ord2 [...] 1.18 K/ul 02/11/2016 Cbc With Differential Ord2 Clinch ABS# 0.4 K/ul 02/11/2016 Cbc With Differential Ord2 Eos ABS# 0.1 K/ul 02/11/2016 Cbc With Differential Ord2 Baso ABS# 0.0 K/ul 02/11/2016 Culture Urine [id number] URINE CULTURE SEE NOTES 02/10/2016 Culture Urine [id number] Continued Results 02/10/2016 Urine Culture Ucult Complete [...] U-VOL VOLUME SUFFICIENT (10mL) 02/06/2016 Urinalysis Ord28 U-Com Culture to follow 02/06/2016 Urinalysis Ord28 U-Yeast NEGATIVE 02/06/2016 Urinalysis Ord28 U-Color Yellow 11/04/2015 Urinalysis [...] hours from collection if refrigerated) 11/04/2015 %Hba1C Bfe788 % HbA1c 24958- 6 6.4 % 04/16/2015 %Hba1C Zoq252 Gluc Ave 137 mg/dL 04/16/2015 Tsh Ord6 hTSH II 3.33 uIU/mL 02/07/2015 Comp Metabolic Kot886 NA 136 mEq/L 02/07/2015 Comp Metabolic Zlp949 K 3.9 mEq/L 02/07/2015 Comp Metabolic Zno841 CL 98 mEq/L 02/07/2015 Comp Metabolic Gzy759 CO2 31.0 mEq/L 02/07/2015 Comp Metabolic Sla663 ANION GAP 11 02/07/2015 Comp Metabolic Pem043 GLUCOSE 139 mg/dL 02/07/2015 Comp Metabolic Rwo488 Creat 0.9 mg/dL 02/07/2015 Comp Metabolic Yli135 eGFR 87 ml/min/1.73m2 02/07/2015 Comp Metabolic Cec833 BUN 20 mg/dL 02/07/2015 Comp Metabolic Oms217 B/C Ratio 21.7 Ratio 02/07/2015 Comp Metabolic Uzd455 CALCIUM 9.7 mg/dL 02/07/2015 Comp Metabolic Pgl247 ALK PHOS 55 U/L 02/07/2015 Comp Metabolic Ywr937 AST(SGOT) 20 U/L 02/07/2015 Comp Metabolic Dwl799 ALT(SGPT) 27 U/L 02/07/2015 Comp Metabolic Xrd352 BILI T 0.5 mg/dL 02/07/2015 Comp Metabolic Eao566 ALBUMIN 4.3 g/dL 02/07/2015 Comp Metabolic Fgr310 TPRO 6.9 g/dL 02/07/2015 Comp Metabolic Ieo412 GLOB 2.6 g/dL 02/07/2015 Comp Metabolic Pha497 A/G Ratio 1.7 Ratio 02/07/2015 Comp Metabolic Ple932 Osmo 277 mOsmo 02/07/2015 Cbc With Differential [...] Ord2 RDW 14.8 % 02/07/2015 A1C HPLC [id number] A1C HPLC 88473-5 6.0 % 05/23/2014 VIT D TOTL [id number] VIT D TOTL 29 NG/ML 05/23/2014 VIT B 12 [id number] VIT B 12 479 PG/ML 05/23/2014 Review of Systems System Result Effective [...] clubbing 11/28/2013 None Full Exam - General 1995 [...] 4: G0439 12/27/2017 THER/PROPH/DIAG INJ SC/IM CPT-4: 32848 09/07/2017 TRIAMCINOLONE ACET INJ NOS CPT-4: J3301 09/07/2017 ROUTINE VENIPUNCTURE CPT- 4: 73001 05/23/2014 THER/PROPH/DIAG INJ SC/IM CPT-4: 85203 11/28/2013 VITAMIN B12 INJECTION CPT- 4: J3420 11/28/2013 Vital Signs Date Vital 06/27/2018 Blood Pressure 1: 124/70 Code: 8480-6 BMI: 36.6 Code: 37103-4 Heart Rate 1: 64 bpm Height: 6' SpO2: 96% Weight: 270 lbs 04/20/2018 Blood Pressure 1: 126/74 Code: 8480-6 BMI: 36.6 Code: 22822-7 Heart Rate 1: 60 bpm Height: 6' SpO2: 94% Weight: 270 lbs 03/21/2018 Blood Pressure 1: 138/74 Code: 8480-6 BMI: 36.8 Code: 13723-2 Heart Rate 1: 81 bpm Height: 6' SpO2: 98% Weight: 271 lbs 02/08/2018 Blood Pressure 1: 132/74 Code: 8480-6 BMI: 37.0 Code: 39578-3 Heart Rate 1: 82 bpm Height: 6' SpO2: 97% Weight: 273 lbs 12/27/2017 Blood Pressure 1: 148/78 Code: 8480-6 BMI: 36.3 Code: 24674-0 Heart Rate 1: 78 bpm Height: 6' SpO2: 93% Waist Measure (cm): 117 cm Weight: 268 lbs 12/06/2017 Blood Pressure 1: 122/70 Code: 8480-6 BMI: 36.6 Code: 43386-5 Heart Rate 1: 76 bpm Height: 6' SpO2: 93% Weight: 270 lbs 11/01/2017 BMI: 36.9 Code: 57338-0 Height: 6' Weight: 272 lbs 09/07/2017 Blood Pressure 1: 140/78 Code: 8480-6 BMI: 35.8 Code: 13384-3 Heart Rate 1: 76 bpm Height: 6' SpO2: 98% Weight: 264 lbs 06/07/2017 Blood Pressure 1: 138/86 Code: 8480-6 BMI: 36.3 Code: 54081-0 Heart Rate 1: 66 bpm Height: 6' SpO2: 95% Weight: 268 lbs 05/19/2017 Blood Pressure 1: 152/84 Code: 8480-6 BMI: 36.8 Code: 06528-5 Heart Rate 1: 70 bpm Height: 6' SpO2: 93% Weight: 271 lbs 05/09/2017 Blood Pressure 1: 138/76 Code: 8480-6 BMI: 36.6 Code: 34355-6 Heart Rate 1: 79 bpm Height: 6' SpO2: 93% Weight: 270 lbs 04/25/2017 Blood Pressure 1: 150/80 Code: 8480-6 Heart Rate 1: 58 bpm Height: SpO2: 94% Weight: 2017 Blood Pressure 1: 138/80 Code: 8480-6 BMI: 36.5 Code: 31086-4 Heart Rate 1: 76 bpm Height: 6' SpO2: 96% Weight: 269 lbs 03/29/2017 Blood Pressure 1: 118/68 Code: 8480-6 BMI: 36.9 Code: 41114-8 Heart Rate 1: 61 bpm Height: 6' SpO2: 95% Weight: 272 lbs 03/17/2017 Blood Pressure 1: 140/78 Code: 8480-6 BMI: 36.8 Code: 49669-1 Heart Rate 1: 91 bpm Height: 6' SpO2: 93% Weight: 271 lbs 03/08/2017 Blood Pressure 1: 152/84 Code: 8480-6 BMI: 36.8 Code: 05858-9 Heart Rate 1: 72 bpm Height: 6' SpO2: 92% Temperature: 36.6 (C) / 97.8 (F) Weight: 271 lbs 02/17/2017 Blood Pressure 1: 110/64 Code: 8480-6 BMI: 36.5 Code: 15482-1 Heart Rate 1: 62 bpm Height: 6' SpO2: 96% Weight: 269 lbs 01/18/2017 Blood Pressure 1: 140/80 Code: 8480-6 BMI: 36.5 Code: 97867-3 Heart Rate 1: 62 bpm Height: 6' SpO2: 94% Weight: 269 lbs 10/19/2016 Blood Pressure 1: 120/80 Code: 8480-6 BMI: 35.9 Code: 74966-1 Heart Rate 1: 64 bpm Height: 6' SpO2: 97% Weight: 265 lbs 08/17/2016 Blood Pressure 1: 112/76 Code: 8480-6 BMI: 36.1 Code: 62459-5 Heart Rate 1: 65 bpm Height: 6' SpO2: 97% Weight: 266 lbs 07/20/2016 Blood Pressure 1: 126/78 Code: 8480-6 BMI: 35.5 Code: 04306-7 Heart Rate 1: 60 bpm Height: 6' SpO2: 95% Weight: 262 lbs 04/19/2016 Blood Pressure 1: 132/78 Code: 8480-6 BMI: 35.1 Code: 43709-5 Heart Rate 1: 65 bpm Height: 6' SpO2: 98% Weight: 259 lbs 01/19/2016 Blood Pressure 1: 140/64 Code: 8480-6 BMI: 34.4 Code: 78773-6 Heart Rate 1: 61 bpm Height: 6' SpO2: 97% Weight: 254 lbs 10/16/2015 Blood Pressure 1: 108/66 Code: 8480-6 BMI: 35.3 Code: 47638-2 Heart Rate 1: 65 bpm Height: 6' SpO2: 96% Weight: 260 lbs 07/17/2015 Blood Pressure 1: 136/74 Code: 8480-6 BMI: 35.8 Code: 37001-4 Heart Rate 1: 59 bpm Height: 6' SpO2: 97% Weight: 263 lbs 13 07/03/2015 Weight: 265 lbs 04/16/2015 Blood Pressure 1: 130/82 Code: 8480-6 BMI: 36.1 Code: 99989-2 Heart Rate 1: 7694 bpm Height: 6' SpO2: 94% Weight: 266 lbs 02/19/2015 Blood Pressure 1: 160/90 Code: 8480-6 BMI: 35.8 Code: 32142-8 Heart Rate 1: 78 bpm Height: 6' SpO2: 94% Weight: 264 lbs 11/20/2014 Blood Pressure 1: 140/96 Code: 8480-6 BMI: 34.6 Code: 35184-0 Heart Rate 1: 92 bpm Height: 6' SpO2: 95% Weight: 255 lbs 11/05/2014 Blood Pressure 1: 132/70 Code: 8480-6 BMI: 34.6 Code: 66760-6 Heart Rate 1: 96 bpm Height: 6' SpO2: 98% Weight: 255 lbs 09/19/2014 Blood Pressure 1: 152/86 Code: 8480-6 BMI: 35.8 Code: 40757-1 Heart Rate 1: 82 bpm Height: 6' SpO2: 95% Weight: 264 lbs 07/24/2014 Blood Pressure 1: 142/82 Code: 8480-6 BMI: 34.7 Code: 40189-8 Heart Rate 1: 72 bpm Height: 6' Weight: 256 lbs 05/23/2014 Blood Pressure 1: 150/82 Code: 8480-6 BMI: 33.4 Code: 79092-2 Heart Rate 1: 68 bpm Height: 6' Weight: 246 lbs 04/18/2014 Blood Pressure 1: 132/84 Code: 8480-6 BMI: 33.2 Code: 97330-0 Heart Rate 1: 80 bpm Height: 6' Weight: 245 lbs 02/21/2014 Blood Pressure 1: 138/82 Code: 8480-6 BMI: 32.4 Code: 71722-5 Heart Rate 1: 85 bpm Height: 6' SpO2: 98% Weight: 239 lbs 12/25/2013 Blood Pressure 1: 146/80 Code: 8480-6 BMI: 30.5 Code: 84091-6 Heart Rate 1: 100 bpm Height: 6' Weight: 225 lbs 11/28/2013 Blood Pressure 1: 120/64 Code: 8480-6 BMI: 30.4 Code: 98606-6 Heart Rate 1: 68 bpm Height: 6' Weight: 224 lbs 11/14/2013 Blood Pressure 1: 124/80 Code: 8480-6 BMI: 30.0 Code: 78973-6 Heart Rate 1: 76 bpm Height: 6' [...] Maxitrol and Polytrim seeing eye dr in [place]. Reports eye still feels irritated. headache Quality [...] Performer Location Codes Date EST. PATIENT, LEVEL III Diagnosis: Tinea barbae and tinea capitis[ICD10: B35.0] Glory Long MD, [facility] CPT-4: 24821 06/27/2018 ([id number]) 01031 EST. 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 PATIENT, LEVEL III Diagnosis: Acute bronchitis due to other specified organisms[ICD10: J20.8] Antoinette Long MD, [facility] CPT-4: 72901 02/08/2018 ([id number]) 48325 EST. 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 PATIENT, LEVEL III Diagnosis: Essential (primary) hypertension[ICD10: I10] Diagnosis: Localized edema[ICD10: R60.0] Diagnosis: Cellulitis of left lower limb[ICD10: L03.116] Quyen Long MD, [facility] CPT-4: 81364 06/07/2017 ([id number]) 94344 EST. 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 PATIENT, LEVEL II Diagnosis: Rash and other nonspecific skin eruption[ICD10: R21] Glory Long MD [facility] CPT-4: 51829 05/09/2017 ([id number]) 84177 EST. PATIENT, LEVEL II Diagnosis: Rash and other nonspecific skin eruption[ICD10: R21] Glory Long MD [facility] CPT-4: 52101 04/25/2017 ([id number]) 64620 EST. PATIENT, LEVEL III Diagnosis: Cellulitis of left lower limb[ICD10: L03.116] Diagnosis: Rash and other nonspecific skin eruption[ICD10: R21] Glory Long MD, [facility] CPT-4: 16986 2017 ([id number]) 73888 EST. PATIENT, LEVEL III Diagnosis: Cellulitis of left lower limb[ICD10: L03.116] Diagnosis: Rash and other nonspecific skin eruption[ICD10: R21] Glory Long MD, [facility] CPT-4: 02200 03/29/2017 02058 EST. PATIENT, LEVEL IV Diagnosis: Cellulitis of left lower limb[ICD10: L03.116] Antoinette Long MD, [facility] CPT-4: 94426 03/17/2017 ([id number]) 85256 EST. PATIENT, LEVEL III Diagnosis: Rash and other nonspecific skin eruption[ICD10: R21] Glory Long MD, [facility] CPT-4: 59612 03/08/2017 32288 EST. PATIENT, LEVEL IV Diagnosis: Essential (primary) hypertension[ICD10: I10] Diagnosis: Muscle weakness (generalized)[ICD10: M62.81] Diagnosis: Body mass index (BMI) 36.0-36.9, adult[ICD10: Z68.36] Diagnosis: Family history of ischemic heart disease and other diseases of the circulatory system[ICD10: Z82.49] Antoinette Long MD, [facility] CPT-4: 86640 02/17/2017 ([id number]) 48821 EST. PATIENT, LEVEL IV Diagnosis: Essential (primary) hypertension[ICD10: I10] Diagnosis: Muscle weakness (generalized)[ICD10: M62.81] Quyen Long MD, [facility] CPT-4: 73159 01/18/2017 ([id number]) 94789 EST. 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 PATIENT, LEVEL III Diagnosis: Pain in left shoulder[ICD10: M25.512] Diagnosis: Rash and other nonspecific skin eruption[ICD10: R21] Glory Long MD, [facility] CPT-4: 51150 08/17/2016 ([id number]) 06626 EST. PATIENT, LEVEL IV Diagnosis: Essential (primary) hypertension[ICD10: I10] Diagnosis: Pain in left shoulder[ICD10: M25.512] Quyen Long MD, [facility] CPT-4: 78949 07/20/2016 ([id number]) 58192 EST. 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 PATIENT, LEVEL IV Diagnosis: Essential (primary) hypertension[ICD10: I10] Diagnosis: Other abnormal glucose[ICD10: R73.09] Diagnosis: Gastro-esophageal reflux disease without esophagitis[ICD10: K21.9] Diagnosis: Obesity, unspecified[ICD10: E66.9] Quyen Long MD, [facility] CPT- 4: 81876 04/16/2015 ([id number]) 38721 EST. PATIENT, LEVEL IV Diagnosis: ESSENTIAL HYPERTENSION[ICD9: 401.9] Diagnosis: OBESITY[ICD9: 278.00] Diagnosis: Post-polio limb muscle weakness[ICD9: 728.87] Quyen Long MD, [facility] CPT-4: 57684 02/19/2015 ([id number]) 46207 EST. PATIENT, LEVEL IV Diagnosis: Shingles outbreak[ICD9: 053.9] Diagnosis: ESSENTIAL HYPERTENSION[ICD9: 401.9] Diagnosis: Earache[ICD9: 388.70] Quyen Long MD, [facility] CPT-4: 19450 11/20/2014 ([id number]) 84460 EST. PATIENT, LEVEL III Diagnosis: Shingles outbreak[ICD9: 053.9] Diagnosis: Face pain[ICD9: 784.0] Diagnosis: Pain, eye, right[ICD9: 379.91] Quyen Long MD, [facility] CPT-4: 20763 11/05/2014 ([id number]) 13407 EST. PATIENT, LEVEL V Diagnosis: Post-polio limb muscle weakness[ICD9: 728.87] Diagnosis: Post-polio syndrome[ICD9: 138] Diagnosis: Leg weakness[ICD9: 729.89] Diagnosis: Weakness[ICD9: 780.79] Diagnosis: Foot drop[ICD9: 736.79] Quyen Long MD, [facility] CPT-4: 58289 09/19/2014 ([id number]) 45374 EST. PATIENT, LEVEL IV Diagnosis: ESSENTIAL HYPERTENSION[ICD9: 401.9] Diagnosis: Carotid bruit[ICD9: 785.9] Diagnosis: Seborrheic dermatitis[ICD9: 690.10] Diagnosis: Post-polio syndrome[ICD9: 138] Diagnosis: Vitamin D deficiency[ICD9: 268.9] Quyen oLng MD, [facility] CPT- 4: 33362 07/24/2014 ([id number]) 14633 EST. PATIENT, LEVEL IV Diagnosis: Neck pain[ICD9: 723.1] Diagnosis: Post-polio syndrome[ICD9: 138] Diagnosis: Vitamin D deficiency[ICD9: 268.9] Diagnosis: Vitamin B12 deficiency[ICD9: 266.2] Diagnosis: Nocturia[ICD9: 788.43] Diagnosis: Leg weakness[ICD9: 729.89] Diagnosis: Elevated blood sugar[ICD9: 790.29] Glory Long MD, [facility] CPT- 4: 96206 05/23/2014 ([id number]) 09353 EST. PATIENT, LEVEL IV Diagnosis: ESSENTIAL HYPERTENSION[ICD9: 401.9] Diagnosis: HEADACHE[ICD9: 784.0] Diagnosis: EDEMA[ICD9: 782.3] Quyen Long MD, [facility] CPT-4: 68099 04/18/2014 78293 EST. PATIENT, LEVEL IV Diagnosis: Insomnia[ICD9: 780.52] Diagnosis: Post-polio syndrome[ICD9: 138] Diagnosis: Vitamin D deficiency[ICD9: 268.9] Diagnosis: Nocturnal hypoxemia[ICD9: 799.02] Glory Long MD, [facility] CPT- 4: 17364 02/21/2014 ([id number]) 26530 EST. PATIENT, LEVEL III Diagnosis: Tinea pedis[ICD9: 110.4] Diagnosis: Post-polio limb muscle weakness[ICD9: 728.87] Glory Long MD, [facility] CPT-4: 25580 12/25/2013 ([id number]) 73455 EST. PATIENT, LEVEL IV Diagnosis: Insomnia[ICD9: 780.52] Diagnosis: Vitamin B12 deficiency (dietary) anemia[ICD9: 281.1] Diagnosis: VITAMIN D DEFICIENCY[ICD9: 268.9] Diagnosis: Weakness[ICD9: 780.79] Quyen Long MD, [facility] CPT-4: 91714 11/28/2013 ([id number]) OFFICE/OUTPATIENT VISIT NEW Diagnosis: Post-polio limb muscle weakness[ICD9: 728.87] Diagnosis: Post-polio syndrome[ICD9: 138] Diagnosis: Insomnia[ICD9: 780.52] Diagnosis: Arrhythmia[ICD9: 427.9] Quyen Long MD, [facility] CPT-4: 68913 11/14/2013 Plan of Care Planned Activity Notes Codes Status Date Visit Plan: Tinea barbae -rx for ketoconazole written and instructed patient on use -instructed patient to call or return to clinic if symptoms do not resolve or if any worse. Patient verbalized understanding of plan. 06/27/2018 Appointment: Glory Dalton WPtel: [address] [place], [place] [phone] (30 min) Complex 06/27/2018 Patient Education: Patient [...] his shoulder. 04/20/2018 Appointment: Quyen Long WPtel: [address] [place], [place] [phone] (15 min) Moderate 04/20/2018 Patient Education: Patient Medication Summary Completed 04/20/2018 Patient Education: Hypertension Completed 04/20/2018 Appointment: Quyen Long WPtel: [address] [place], [place] [phone] (15 min) Moderate 04/11/2018 Visit Plan: Post polio syndrome -right leg weakness -patient needs repair and adjustment of his right leg brace that helps with his symptoms of instability and weakness and allows him to ambulate -will send rx to [facility] 03/21/2018 Appointment: Glory Dalton WPtel: [phone] (15 min) Moderate 03/21/2018 Patient Education: Patient [...] worsen. 02/08/2018 Appointment: [facility] [phone] [facility] [place] (30 min) Complex 02/08/2018 Patient Education: Patient [...] Completed 12/27/2017 [phone] ([facility] min) Moderate 12/08/2017 Visit Plan: [...] with addie for shoulder injection. 12/06/2017 Appointment: EthanQuyen WPtel: [address] [place], [place] [address] (15 min) Moderate 12/06/2017 Patient Education: Patient [...] weight check. 09/07/2017 Appointment: Quyen Long WPtel: [facility]5 [facility] (15 min) Moderate 09/07/2017 Patient Education: [...] lower leg. 06/07/2017 Appointment: Quyen Long WPtel: [facility] (15 min) Moderate 06/07/2017 Patient [...] compression recommended. 05/19/2017 Appointment: Quyen Long WPtel: [address] [place], [place] [phone] (15 min) Moderate 05/19/2017 Patient Education: Patient Medication Summary Completed 05/19/2017 Patient Education: Obesity Completed 05/19/2017 Patient Education: Hypertension Completed 05/19/2017 Visit Plan: Rash-left cnbj-oeblxnsq-uaswxtbzls patient to continue using ketoconazole plus betamethasone equal parts and increase to TID-leave foot open to air as much as possible-follow up in 2 weeks, sooner if needed. 05/09/2017 Appointment: Glory Dalton WPtel: [address] [place], [place] [phone] [place] (30 min) Complex 05/09/2017 Patient Education: Patient Medication Summary Completed 05/09/2017 Patient Education: Obesity Completed 05/09/2017 Visit Plan: Rash-left foot-Dr Long in to evaluate rash-instructed patient to start using ketoconazole plus betamethasone equal parts TID -follow up in 2 weeks, sooner if needed. 04/25/2017 Appointment: Glory Dalton WPtel: [address] [place], [place] [phone] (30 min) Complex 04/25/2017 Patient Education: Patient Medication Summary Completed 04/25/2017 Visit Plan: Cellulitis of left foot-no longer draining-no open areas-no excoriation-slightly red-okay to d/c all treatments-keep clean and monitor-call if redness does not resolve Rash-resolved 2017 Appointment: Glory Dalton WPtel: [address] [place], [place] [phone] (30 min) Complex 2017 Patient Education: Patient Medication Summary Completed 2017 Patient Education: Obesity Completed 2017 Visit Plan: Cellulitis-left foot-MSSA gsqxfvwa-hcqprhazh-ouhwh air in the evening-continue bactroban ointment twice daily-stop using alcohol on foot-no papertowels or abrasives to foot Wyop-kqof-wl for betamethasone provided and instructed on use 03/29/2017 Appointment: Glory Dalton WPtel: [address] [place], [place] [phone] [place] (30 min) Complex 03/29/2017 Patient Education: Patient Medication Summary Completed 03/29/2017 Patient Education: Obesity Completed 03/29/2017 Appointment: Glory Dalton WPtel: [address] [place], [place] [phone] [place] (30 min) Complex 03/22/2017 Visit Plan: Cellulitis [...] discharge. 03/17/2017 Appointment: [facility]in[facility]ndt [facility] [phone] [facility] [place] (30 min) Complex 03/17/2017 Patient Education: Patient [...] the break. 01/18/2017 Appointment: [phone] (15 min) Moderate 01/18/2017 Patient Education: Patient [...] weakness. 10/19/2016 Appointment: [phone] [facility] (15 min) Moderate 10/19/2016 Patient Education: Patient Medication Summary Completed 10/19/2016 Patient Education: Obesity Completed 10/19/2016 Visit Plan: Left shoulder pain-hospital f/u recent shoulder surgery with Dr Wilson-doing well-sees Dr Wilson this afternoon for suture removal-pain improved Fuut-cahr-fpxbqku fungal infection-will treat with ket oconazole -follow up in 2 weeks 08/17/2016 Appointment: Glory Dalton [facility]Ptel[facility] [phone] [facility] [phone] [place] (30 min) Complex 08/17/2016 Patient Education: [...] ambulating. 07/20/2016 Appointment: [phone] [facility] (15 min) Moderate 07/20/2016 Patient Education: [...] strengthening. 04/19/2016 Appointment: Quyen Long WPtel: [phone] [facility] (15 min) Moderate 04/19/2016 Patient Education: [...] appointment. 01/19/2016 Appointment: [facility] [phone] [facility] (15 min) Moderate 01/19/2016 Patient Education: Patient Medication Summary Completed 01/19/2016 Patient Education: Obesity Completed 01/19/2016 Patient Education: Hypertension Completed 01/19/2016 Referral: Dr Mccauley Referral Completed 11/11/2015 Care Plan: Referral Order SNOMED-CT : [id number] Pending 11/03/2015 Visit Plan: Hypertension - well [...] with injection 10/16/2015 Appointment: Quyen Long WPtel: [address] [place] [address] (15 min) Moderate 10/16/2015 Patient Education: Patient [...] at the [facility] - 02/19/2015 Appointment: uQyen Long WPtel: [facility] (15 min) Moderate 02/19/2015 Patient Education: Patient [...] ear drops. 11/20/2014 Appointment: Quyen Long WPtel: [facility] Follow up 11/20/2014 Patient Education: Patient Medication [...] doctor ESME. 11/05/2014 Appointment: Quyen Long WPtel: [facility] (15 min) Moderate 11/05/2014 Patient Education: [...] to participate in activities outside of the alf. He has a family that would like [...] foot. 09/19/2014 Appointment: [facility] [phone] [facility] Follow up 09/19/2014 Patient Education: Patient Medication [...] deficiency - recommended repeat of vitamin d 84030lcuma weekly x 12 weeks and increase vitamin d to 5000 units daily. 07/24/2014 Appointment: Quyen Long WPtel: [phone] [facility] [place] Follow up 07/24/2014 Patient Education: Patient [...] B12 level 05/23/2014 Appointment: Glory Dalton WPtel: [phone] [place] Follow up 05/23/2014 Patient Education: Patient Medication Summary Completed 05/23/2014 Patient Education: .Cervicalgia Neck Pain Completed 05/23/2014 Appointment: Quyen Long WPtel: [facility] [place] Follow up 05/22/2014 Visit Plan: [...] home. 04/18/2014 Appointment: [facility] [phone] [facility] Follow up 04/18/2014 Patient Education: Patient Medication Summary Completed 04/18/2014 Patient Education: Hypertension Completed 04/18/2014 Appointment: [facility]Pt[facility] [phone] [facility] [place] Follow up 02/27/2014 Visit Plan: Insomnia - Pt has been advised to increase the light in the house during the day, and start dimming the lights during the evening hours. Pt has been advised to cut out caffeine after 5pm. Daytime napping worsens night time insomnia. START TRAZODONE AND MONITOR SYMPTOMS. Vitamin D wlilyttjpn-wwwtjatv-vgikjlcr vitamin D 50,000 units weekly for 12 additional weeks. Hypoxemia-continue night time oxygen 02/21/2014 Appointment: Gl[facility] [phone] [facility] [id number] Follow up 02/21/2014 Patient Education: Patient Medication [...] on mobic. 11/28/2013 [facility] [phone] [id number] Follow up 11/28/2013 Patient Education: Patient [...] study. 11/14/2013 App[facility]ment: [facility] [phone] [id number] [place] New Patient 11/14/2013 Patient Education: Patient Medication Summary Completed 11/14/2013 Referral: Dr Mccauley Referral Appointment Requested Instructions Comment Your left foot needs air in the evenings for at least a couple of hours -continue dressing changes BID with bactroban ointment Betamethasone to arm/chest twice daily for itching until resolved Continue ketoconazole to face as directed Follow up in 10 days . Cellulitis-left foot-MSSA vrbikbso-udhtmqapf-ahxlt air in the evening-continue bactroban ointment twice daily-stop using alcohol on foot-no papertowels or abrasives to foot Vsdm-fkql-iu for betamethasone provided and instructed on use [...] concerns prior to next follow up appointment. KETOCONAZOLE mixed with BETAMETHASONE THREE TIMES DAILY [...] and dressings to lower leg. . Rash-left brsz-tnvkltdi-onlsfxujwc patient to continue using ketoconazole plus betamethasone [...] START TRAZODONE AND MONITOR SYMPTOMS. Vitamin D girreuucjv-iyfenuss-qksirkdj vitamin D 50,000 units weekly for 12 [...] Abnormal glucose - check hgba1c today. . Hypertension - well controlled - continue [...] deficiency - recommended repeat of vitamin d 70100xiaax weekly x 12 weeks and increase vitamin [...] Wilson this afternoon for suture removal-pain improved Bezx-bbtg-ulvoegx fungal infection-will treat with ketoconazole -follow up [...] to participate in activities outside of the alf. He has a family that would like [...] - improved on mobic. . Hypertension - uncontrolled - the patient's [...] for patient for use when ambulating. . Tinea barbae -rx for ketoconazole written and instructed patient on use -instructed patient to call or return to clinic if symptoms do not resolve or if any worse. Patient verbalized understanding of plan. . Bronchitis - acute case of bronchitis identified. Pt has been given antibiotics, breathing treatments as appropriate, and pt has been instructed to call if symptoms are not improved, or if symptoms acutely worsen. d/c treatments to left foot . Cellulitis [...] him to ambulate -will send rx to [facility]
--- OUTSIDE RECORDS SUMMARY | 2018-11-10 16:04 | XMS REPORT | CCD ---
Author Author Quyen Long Organization Quyen Long MD, [facility] Address [address] [place] [address] Phone Care Team Providers Care Smash Fixer Name Role Phone PP Unavailable CCM Unavailable Summary Purpose Interface Exchange Insurance Providers Payer name Policy type / Coverage type Covered republican ID Effective Begin Date Effective End Date WPS Medicare Part B Medicare Part B [id number] 2017 Unknown [facility] Medicare Part B [id number] 2017 Unknown Family history Grandmother Diagnosis Age [...] Description Effective Dates Tobacco history SNOMED CT: 4786998 Former smoker 1.5 pack daily x 45 years 12/27/2017 Marital status Unknown 10/19/2016 Living arrangements Unknown Assisted Living [facility] 04/19/2016 Number of children Unknown 1 son - lives in [place] 11/14/2013 Employment 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 phone or fax) Vitamin B-12 1,000 mcg/mL injection solution RxNorm: 253703 Milliliter(s) INJECT 1ML MONTHLY 06/15/2018 06/18/2018 Inactive Zithromax Z-Brian 250 mg tablet RxNorm: 901781 1 Tablet(s) PO UD 06/14/2018 No Stop Date Active zpack as directed x1 tamsulosin 0.4 mg capsule RxNorm: 803939 TAKE ONE CAPSULE BY MOUTH EVERY EVENING 06/12/2018 01/07/2019 Active gabapentin 300 mg capsule RxNorm: 513976 TAKE ONE CAPSULE BY MOUTH TWICE A DAY 05/31/2018 09/27/2018 Active losartan 50 mg tablet RxNorm: 260994 TAKE ONE TABLET BY MOUTH DAILY 05/01/2018 09/27/2018 Active Toprol XL 50 mg tablet,extended release RxNorm: 349759 1 Tablet(s) PO daily 04/20/2018 No Stop Date Active Vitamin D3 5,000 unit tablet RxNorm: 728857 TAKE ONE TABLET BY MOUTH DAILY 04/05/2018 02/28/2019 Active trazodone 50 mg tablet RxNorm: 468677 TAKE ONE TABLET BY MOUTH AT BEDTIME 02/27/2018 07/17/2018 Inactive ranitidine 150 mg tablet RxNorm: 480431 1 Tablet(s) PO BID 02/13/2018 02/07/2019 Active hydrochlorothiazide 25 mg tablet RxNorm: 100691 TAKE ONE TABLET BY MOUTH DAILY 02/13/2018 11/09/2018 Active albuterol sulfate 2.5 mg/3 mL (0.083 %) solution for nebulization RxNorm: 500087 3 Milliliter(s) INH UD 02/08/2018 No Stop Date Active please deliver all of his prescriptions thank you cefdinir 300 mg capsule RxNorm: 908450 1 Capsule(s) PO BID 02/08/2018 02/17/2018 Inactive prednisone 20 mg tablet RxNorm: 343637 2 Tablet(s) PO daily 02/08/2018 02/12/2018 Inactive fluticasone 50 mcg/actuation nasal spray,suspension RxNorm: 6254986 1 [place] NASAL BID 02/07/2018 06/06/2018 Inactive fluticasone 50 mcg/actuation nasal spray,suspension RxNorm: 7288688 1 [place] NASAL BID 02/07/2018 02/06/2018 Inactive Zithromax Z-Brian 250 mg tablet RxNorm: 960108 1 Tablet(s) PO UD 02/07/2018 03/14/2018 Inactive zpack as directed tamsulosin 0.4 mg capsule RxNorm: 573743 TAKE ONE CAPSULE BY MOUTH EVERY EVENING 01/13/2018 06/11/2018 Inactive cetirizine 10 mg tablet RxNorm: 2088407 TAKE ONE TABLET BY MOUTH EVERY NIGHT AT BEDTIME 01/02/2018 04/01/2018 Inactive Vitamin D3 5,000 unit tablet RxNorm: 235269 TAKE ONE TABLET BY MOUTH DAILY 01/02/2018 04/04/2018 Inactive cetirizine 10 mg tablet RxNorm: 8328962 1 Tablet(s) PO QHS 12/26/2017 01/01/2018 Inactive cetirizine 10 mg tablet RxNorm: 5458787 1 Tablet(s) PO QHS 12/26/2017 12/25/2017 Inactive losartan 50 mg tablet RxNorm: 585402 TAKE ONE TABLET BY MOUTH DAILY (STARTING 09-09-2017) 09/29/2017 03/27/2018 Inactive Request already responded to by other means (e.g. phone or fax) losartan 50 mg tablet RxNorm: 898682 1 Tablet(s) PO daily 09/27/2017 09/26/2017 Inactive losartan 50 mg tablet RxNorm: 275198 1 Tablet(s) PO daily 09/27/2017 09/28/2017 Inactive Bactrim DS 800 mg-160 mg tablet RxNorm: 837592 1 Tablet(s) PO BID 09/13/2017 09/19/2017 Inactive Kenalog 40 mg/mL suspension for injection RxNorm: 8100838 1 Milliliter(s) Inj 09/07/2017 09/07/2017 Inactive trazodone 50 mg tablet RxNorm: 153889 TAKE ONE TABLET BY MOUTH AT BEDTIME 08/16/2017 02/11/2018 Inactive gabapentin 300 mg capsule RxNorm: 523662 1 Capsule(s) PO BID 08/03/2017 01/29/2018 Inactive Vitamin D3 5,000 unit tablet RxNorm: 182920 TAKE ONE TABLET BY MOUTH DAILY 08/01/2017 12/28/2017 Inactive ketoconazole 2 % topical cream RxNorm: 603762 APPLY TO AFFECTED AREA(S) TWO TIMES A DAY 05/31/2017 06/29/2017 Inactive hydrochlorothiazide 25 mg tablet RxNorm: 000832 TAKE ONE TABLET BY MOUTH DAILY 05/16/2017 02/09/2018 Inactive lisinopril 20 mg tablet RxNorm: 537468 TAKE ONE TABLET BY MOUTH DAILY 05/16/2017 09/06/2017 Inactive ketoconazole 2 % topical cream RxNorm: 274493 1 Application TOP BID 03/29/2017 04/11/2017 Inactive apply to faice-deliver to [facility] please betamethasone dipropionate 0.05 % topical ointment RxNorm: 927620 1 Application TOP BID 03/29/2017 04/11/2017 Inactive apply to arm/chests for itching gabapentin 300 mg capsule RxNorm: 323810 1 Capsule(s) PO BID 03/29/2017 08/02/2017 Inactive trazodone 50 mg tablet RxNorm: 811509 TAKE ONE TABLET BY MOUTH AT BEDTIME 03/28/2017 08/15/2017 Inactive Vesicare 10 mg tablet RxNorm: 284723 TAKE ONE TABLET BY MOUTH EVERY NIGHT AT BEDTIME 03/21/2017 12/26/2017 Inactive Vesicare 10 mg tablet RxNorm: 997105 TAKE ONE TABLET BY MOUTH EVERY NIGHT AT BEDTIME 03/21/2017 06/06/2017 Inactive doxycycline hyclate 100 mg capsule RxNorm: 7656569 1 Capsule(s) PO BID 03/18/2017 03/27/2017 Inactive mupirocin 2 % topical ointment RxNorm: 883738 1 Application TOP BID 03/17/2017 No Stop Date Active doxycycline hyclate 100 mg tablet RxNorm: 921566 1 Tablet(s) PO BID 03/09/2017 03/15/2017 Inactive Take probiotic BID while on ABT doxycycline hyclate 100 mg tablet RxNorm: 630721 1 Tablet(s) PO BID 03/09/2017 03/08/2017 Inactive Take probiotic BID while on ABT meloxicam 15 mg tablet RxNorm: 759190 TAKE ONE TABLET BY MOUTH DAILY 02/10/2017 12/06/2017 Inactive Vitamin D3 5,000 unit tablet RxNorm: 958715 TAKE ONE TABLET BY MOUTH DAILY 02/08/2017 07/31/2017 Inactive Vitamin B-12 1,000 mcg/mL injection solution RxNorm: 275494 INJECT 1ML MONTHLY 01/24/2017 07/22/2017 Inactive lisinopril 20 mg tablet RxNorm: 183020 TAKE ONE TABLET BY MOUTH DAILY 12/13/2016 04/11/2017 Inactive trazodone 50 mg tablet RxNorm: 598100 TAKE ONE TABLET BY MOUTH AT BEDTIME 09/24/2016 03/22/2017 Inactive Vitamin D3 5,000 unit tablet RxNorm: 593674 TAKE ONE TABLET BY MOUTH DAILY 09/20/2016 02/07/2017 Inactive lisinopril 20 mg tablet RxNorm: 905274 TAKE ONE TABLET BY MOUTH DAILY 09/13/2016 12/12/2016 Inactive ketoconazole 2 % topical cream RxNorm: 222358 1 Application TOP BID 08/17/2016 08/30/2016 Inactive deliver to [facility] please Pepcid 20 mg tablet RxNorm: 333955 TAKE ONE TABLET BY MOUTH TWICE A DAY 07/12/2016 12/26/2017 Inactive omega-3 acid ethyl esters 1 gram capsule RxNorm: 992945 3 Capsule(s) PO daily 06/18/2016 12/14/2016 Inactive omega-3 acid ethyl esters 1 gram capsule RxNorm: 869404 3 Capsule(s) PO daily 06/18/2016 06/17/2016 Inactive trazodone 50 mg tablet RxNorm: 481385 TAKE ONE TABLET BY MOUTH AT BEDTIME 06/08/2016 08/06/2016 Inactive tamsulosin 0.4 mg capsule RxNorm: 027673 Capsule(s) TAKE ONE CAPSULE BY MOUTH EVERY EVENING 06/04/2016 12/30/2016 Inactive hydrochlorothiazide 25 mg tablet RxNorm: 737371 TAKE ONE TABLET BY MOUTH DAILY 05/10/2016 05/09/2016 Inactive hydrochlorothiazide 25 mg tablet RxNorm: 470982 TAKE ONE TABLET BY MOUTH DAILY 05/10/2016 02/12/2018 Inactive Pepcid 20 mg tablet RxNorm: 323979 1 Tablet(s) PO BID 03/18/2016 03/17/2016 Inactive Pepcid 20 mg tablet RxNorm: 135056 1 Tablet(s) PO BID 03/18/2016 07/11/2016 Inactive lisinopril 20 mg tablet RxNorm: 958073 TAKE ONE TABLET BY MOUTH DAILY 03/18/2016 08/14/2016 Inactive Vitamin D3 5,000 unit tablet RxNorm: 740458 Tablet(s) TAKE ONE TABLET BY MOUTH DAILY 03/18/2016 09/13/2016 Inactive trazodone 50 mg tablet RxNorm: 069531 TAKE ONE TABLET BY MOUTH AT BEDTIME 03/15/2016 06/07/2016 Inactive Vesicare 10 mg tablet RxNorm: 801213 1 Tablet(s) PO QHS 03/15/2016 02/07/2017 Inactive meloxicam 15 mg tablet RxNorm: 507552 TAKE ONE TABLET BY MOUTH DAILY 03/01/2016 01/24/2017 Inactive Bactrim DS 800 mg-160 mg tablet RxNorm: 105838 1 Tablet(s) PO BID 02/10/2016 02/09/2016 Inactive Bactrim DS 800 mg-160 mg tablet RxNorm: 161380 1 Tablet(s) PO BID 02/10/2016 02/16/2016 Inactive Cipro 500 mg tablet RxNorm: 460405 1 Tablet(s) PO BID 02/06/2016 02/09/2016 Inactive Cipro 500 mg tablet RxNorm: 952907 1 Tablet(s) PO BID 02/06/2016 02/05/2016 Inactive Pennsaid 20 mg/gram/actuation (2 %) topical soln in metered- dose pump RxNorm: 5552832 2 pumps TOP BID 01/19/2016 04/19/2016 Inactive tamsulosin 0.4 mg capsule RxNorm: 332934 TAKE ONE CAPSULE BY MOUTH EVERY EVENING 01/12/2016 06/03/2016 Inactive cyanocobalamin (vit B-12) 1,000 mcg/mL injection solution RxNorm: 039270 INJECT 1 ML INTRAMUSCULARLY MONTHLY 01/01/2016 10/26/2016 Inactive Request already responded to by other means (e.g. phone or fax) Vitamin B-12 1,000 mcg/mL injection solution RxNorm: 885857 1 Milliliter(s) Inj monthly 12/24/2015 04/19/2016 Inactive please give syringes for injections Vitamin D3 5,000 unit tablet RxNorm: 618815 TAKE ONE TABLET BY MOUTH DAILY 12/08/2015 03/06/2016 Inactive pantoprazole 40 mg tablet,delayed release RxNorm: 819862 TAKE ONE TABLET BY MOUTH DAILY 12/08/2015 03/17/2016 Inactive trazodone 50 mg tablet RxNorm: 812618 TAKE ONE TABLET BY MOUTH AT BEDTIME 11/10/2015 03/08/2016 Inactive lisinopril 20 mg tablet RxNorm: 210021 TAKE ONE TABLET BY MOUTH DAILY 09/08/2015 03/05/2016 Inactive Vitamin D3 5,000 unit tablet RxNorm: 935113 1 Tablet(s) PO daily 08/12/2015 12/07/2015 Inactive pantoprazole 40 mg tablet,delayed release RxNorm: 553398 1 Tablet(s) PO daily 08/12/2015 12/07/2015 Inactive tamsulosin 0.4 mg capsule RxNorm: 186416 TAKE ONE CAPSULE BY MOUTH EVERY EVENING 07/21/2015 12/17/2015 Inactive trazodone 50 mg tablet RxNorm: 582923 TAKE ONE TABLET BY MOUTH AT BEDTIME 05/09/2015 10/05/2015 Inactive hydrochlorothiazide 25 mg tablet RxNorm: 658906 1 Tablet(s) PO QAM 04/30/2015 04/29/2015 Inactive hydrochlorothiazide 25 mg tablet RxNorm: 839715 TAKE ONE TABLET BY MOUTH DAILY 04/30/2015 02/12/2018 Inactive pantoprazole 40 mg tablet,delayed release RxNorm: 433950 1 Tablet(s) PO daily 04/16/2015 08/11/2015 Inactive meloxicam 15 mg tablet RxNorm: 215366 TAKE ONE TABLET BY MOUTH DAILY 03/03/2015 02/25/2016 Inactive lisinopril 20 mg tablet RxNorm: 473345 1 Tablet(s) PO daily 02/19/2015 09/07/2015 Inactive tamsulosin 0.4 mg capsule RxNorm: 556140 TAKE ONE CAPSULE BY MOUTH EVERY EVENING 01/20/2015 07/18/2015 Inactive cyanocobalamin (vit B-12) 1,000 mcg/mL injection solution RxNorm: 626456 Milliliter(s) INJECT 1ML INTRAMUSCULARLY MONTHLY 12/12/2014 12/22/2014 Inactive trazodone 50 mg tablet RxNorm: 768369 TAKE ONE TABLET BY MOUTH AT BEDTIME 11/14/2014 05/08/2015 Inactive erythromycin 5 mg/gram (0.5 %) eye ointment RxNorm: 367095 1/2 inch OPH QID 11/05/2014 11/14/2014 Inactive acyclovir 800 mg tablet RxNorm: 530301 1 Tablet(s) PO TID 11/05/2014 11/18/2014 Inactive Zofran 4 mg tablet RxNorm: 537270 1 Tablet(s) PO Q4H as needed nausea 11/05/2014 01/03/2015 Inactive Duragesic 12 mcg/hr transdermal patch RxNorm: 427105 1 Patch TD Q72H 11/05/2014 02/04/2015 Inactive Imitrex 100 mg tablet RxNorm: 256127 1 Tablet(s) PO q 12 hours 11/04/2014 04/15/2015 Inactive naproxen 500 mg tablet RxNorm: 040371 1 Tablet(s) PO BID 10/30/2014 11/01/2014 Inactive meloxicam 15 mg tablet RxNorm: 032289 TAKE ONE TABLET BY MOUTH DAILY 10/04/2014 03/02/2015 Inactive Vesicare 5 mg tablet RxNorm: 582283 TAKE ONE TABLET BY MOUTH AT BEDTIME 09/16/2014 07/16/2015 Inactive Vitamin D2 50,000 unit capsule RxNorm: 883281 1 Capsule(s) PO QW 09/06/2014 07/16/2015 Inactive once weekly x 12 weeks tamsulosin ER 0.4 mg capsule,extended release 24 hr RxNorm: 353359 TAKE ONE CAPSULE BY MOUTH EVERY EVENING 06/24/2014 12/20/2014 Inactive tamsulosin ER 0.4 mg capsule,extended release 24 hr RxNorm: 441875 1 Capsule(s) PO QPM 06/24/2014 01/19/2015 Inactive Vitamin D2 50,000 unit capsule RxNorm: 706224 1 Capsule(s) PO QW 05/27/2014 09/05/2014 Inactive once weekly x 12 weeks Vesicare 5 mg tablet RxNorm: 820007 1 Tablet(s) PO QHS 05/23/2014 05/22/2014 Inactive Vesicare 5 mg tablet RxNorm: 837512 1 Tablet(s) PO QHS 05/23/2014 09/15/2014 Inactive trazodone 50 mg tablet RxNorm: 995709 TAKE ONE TABLET BY MOUTH AT BEDTIME 05/13/2014 11/08/2014 Inactive trazodone 50 mg tablet RxNorm: 397131 TAKE ONE TABLET BY MOUTH AT BEDTIME 05/13/2014 11/08/2014 Inactive hydrochlorothiazide 25 mg tablet RxNorm: 061183 1 Tablet(s) PO QAM 04/18/2014 01/12/2015 Inactive Vitamin D2 50,000 unit capsule RxNorm: 539004 TAKE ONE CAPSULE BY MOUTH ONCE WEEKLY FOR 12 WEEKS 04/09/2014 05/14/2014 Inactive trazodone 50 mg tablet RxNorm: 666416 1 Tablet(s) PO QHS 02/22/2014 05/12/2014 Inactive trazodone 50 mg tablet RxNorm: 084195 1 Tablet(s) PO QHS 02/22/2014 02/21/2014 Inactive Vitamin D2 50,000 unit capsule RxNorm: 537676 TAKE ONE CAPSULE BY MOUTH ONCE WEEKLY FOR 12 WEEKS 02/07/2014 03/06/2014 Inactive meloxicam 15 mg tablet RxNorm: 189556 TAKE ONE TABLET BY MOUTH ONCE A DAY 02/07/2014 08/05/2014 Inactive meloxicam 15 mg tablet RxNorm: 533715 TAKE ONE TABLET BY MOUTH ONCE A DAY 02/07/2014 2014 Inactive clotrimazole 1 % topical cream RxNorm: 071582 1 Application TOP BID 12/25/2013 07/16/2015 Inactive Diflucan 150 mg tablet RxNorm: 593313 1 Tablet(s) PO daily 12/25/2013 12/31/2013 Inactive tamsulosin ER 0.4 mg capsule,extended release 24 hr RxNorm: 975762 1 Capsule(s) PO QPM 11/28/2013 06/23/2014 Inactive cyanocobalamin (vit B-12) 1,000 mcg/mL injection solution RxNorm: 396660 1 Milliliter(s) Inj 11/28/2013 12/12/2014 Inactive Vitamin B-12 1,000 mcg/mL injection solution RxNorm: 768060 1 Milliliter(s) Inj monthly 11/21/2013 02/13/2015 Inactive please give syringes for injections Vitamin D2 50,000 unit capsule RxNorm: 703479 1 Capsule(s) PO QW x 12 weeks 11/21/2013 02/06/2014 Inactive [SAVINGS FOR UNINSURED PATIENTS -- to take addtional 2000 units daily Vitamin B-12 1,000 mcg/mL injection solution RxNorm: 943318 1 Milliliter(s) Inj monthly 11/21/2013 11/20/2013 Inactive meloxicam 15 mg tablet RxNorm: 215415 1 Tablet(s) PO daily 11/20/2013 11/19/2013 Inactive [SAVINGS FOR UNINSURED PATIENTS -- BIN:[id number], PCN: [id number], Group: [id number], ID# [id number], Process claim through [employer], for questions: . THIS IS NOT INSURANCE.] meloxicam 15 mg tablet RxNorm: 242478 1 Tablet(s) PO daily 11/20/2013 02/06/2014 Inactive [SAVINGS FOR UNINSURED PATIENTS -- BIN:544905, PCN: [id number], Group: [id number], ID# [id number], Process claim through [employer], for questions: . THIS IS NOT INSURANCE.] meloxicam 15 mg tablet RxNorm: 650239 1 Tablet(s) PO daily 11/20/2013 11/19/2013 Inactive Voltaren 1 % topical gel RxNorm: 694021 4 Application TOP QID apply to back, affected joints four times daily 11/14/2013 11/20/2013 Inactive trazodone 50 mg tablet RxNorm: 813311 1 Tablet(s) PO QHS No Start Date Active Vitamin D2 50,000 unit capsule RxNorm: 135576 1 Capsule(s) PO QW No Start Date 05/26/2014 Inactive once weekly x 12 weeks Zithromax Z-Brian 250 mg tablet RxNorm: 155318 1 Tablet(s) PO UD No Start Date 02/06/2018 Inactive Vitamin D2 50,000 unit capsule RxNorm: 418159 1 Capsule(s) PO QW No Start Date 11/20/2013 Inactive gabapentin 300 mg capsule RxNorm: 042931 1 Capsule(s) PO TID No Start Date 03/28/2017 Inactive Vesicare 10 mg tablet RxNorm: 868561 1 Tablet(s) PO QHS No Start Date 03/14/2016 Inactive Toprol XL 25 mg tablet,extended release RxNorm: 799775 1 Tablet(s) PO daily No Start Date 04/19/2018 Inactive Vitamin D3 5,000 unit tablet RxNorm: 212921 1 Tablet(s) PO daily No Start Date 08/11/2015 Inactive Celebrex 200 mg capsule RxNorm: 119663 1 Capsule(s) PO BID No Start Date 07/19/2016 Inactive Imitrex 50 mg tablet RxNorm: 169738 1 Tablet(s) PO now and may repeat up to four times in 24 hours No Start Date 11/03/2014 Inactive Zofran 4 mg tablet RxNorm: 850568 1 Tablet(s) PO Q8 as needed nausea and vomitting No Start Date 10/15/2015 Inactive ranitidine 150 mg tablet RxNorm: 799792 1 Tablet(s) PO BID No Start Date 02/12/2018 Inactive Phenergan 25 mg tablet RxNorm: 113306 1 Tablet(s) PO now No Start Date 04/15/2015 Inactive Tums oral RxNorm: 462574 oral No Start Date 10/15/2015 Inactive Medication Administered Medication Codes Instructions Start Date Status Kenalog 40 mg/mL suspension for injection RxNorm: 5482548 1Milliliter 09/07/2017 No longer Active cyanocobalamin (vit B-12) 1,000 mcg/mL injection solution RxNorm: 730645 1Milliliter 11/28/2013 No longer Active Immunizations Vaccine [...] 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 04/20/2018 Muscle weakness (generalized) ICD-10: M62.81 ICD-9: 728.87 04/20/2018 Foot drop, right foot ICD-10: M21.371 [...] 379.91 11/05/2014 Face pain ICD-9: 784.0 11/05/2014 Post-polio syndrome ICD-9: 138 09/19/2014 Weakness ICD-9: 780.79 09/19/2014 Foot drop ICD-9: 736.79 09/19/2014 Leg weakness ICD-9: 729.89 09/19/2014 Carotid bruit ICD-9: 785.9 07/24/2014 Vitamin D deficiency ICD-9: 268.9 07/24/2014 Seborrheic dermatitis ICD-9: 690.10 07/24/2014 Elevated blood sugar ICD-9: 790.29 05/23/2014 Vitamin B12 deficiency ICD-9: 266.2 05/23/2014 Nocturia ICD-9: 788.43 05/23/2014 Neck pain ICD-9: 723.1 05/23/2014 EDEMA ICD-9: 782.3 04/18/2014 Insomnia ICD-9: 780.52 02/21/2014 Nocturnal hypoxemia ICD-9: 799.02 02/21/2014 Tinea pedis ICD-9: 110.4 12/25/2013 Vitamin [...] recently went to an eye doctor in [place]. Reports that he did have hemorrhaging in his right eye which is getting better. headache 04/18/2014 Pt states he recently went to an eye doctor in [place] shortness of breath 02/21/2014 blisters 12/25/2013 insomnia 11/28/2013 back pain 11/14/2013 Results Observation Observation Code Item Item Code Result Date Cbc With Differential Ord2 WBC 5.63 K/ul [...] 28.5 pg 03/14/2018 Cbc With Differential Ord2 [place]% 7.6 % 03/14/2018 Cbc With Differential Ord2 [...] 1.28 K/ul 03/14/2018 Cbc With Differential Ord2 [place] ABS# 0.4 K/ul 03/14/2018 Cbc With Differential Ord2 Eos ABS# 0.2 K/ul 03/14/2018 Cbc With Differential Ord2 Baso ABS# 0.0 K/ul 03/14/2018 Vitamin D 25 Oh [id number] VITAMIN D, 25 HYDROXY 66.80 ng/mL 03/14/2018 Total Psa Ord10 PSA 3.08 ng/mL [...] 09/12/2017 Metabolic Ord15 CALCIUM 9.1 mg/dL 09/12/2017 %Hba1C Ost686 % HbA1c 64095- 6 6.2 % 06/27/2017 %Hba1C Dug696 Gluc Ave 131 mg/dL 06/27/2017 Lipid Ord30 CHOL 184 mg/dL 06/27/2017 Lipid Ord30 HDL 37.0 mg/dl 06/27/2017 Lipid Ord30 TRIG 186 mg/dL 06/27/2017 Lipid Ord30 LDL 110 mg/dL 06/27/2017 Lipid Ord30 C/HDL 5.0 Ratio 06/27/2017 Comp Metabolic Fyv654 NA 140 mEq/L 06/27/2017 Comp Metabolic Yfk849 K 4.2 mEq/L 06/27/2017 Comp Metabolic Zvc691 CL 100 mEq/L 06/27/2017 Comp Metabolic Yvj496 CO2 32.0 mEq/L 06/27/2017 Comp Metabolic Luo296 ANION GAP 12 06/27/2017 Comp Metabolic Qgm259 GLUCOSE 118 mg/dL 06/27/2017 Comp Metabolic Ypq285 Creat 1.0 mg/dL 06/27/2017 Comp Metabolic Dzm359 eGFR 82 ml/min/1.73m2 06/27/2017 Comp Metabolic Ytg922 BUN 26 mg/dL 06/27/2017 Comp Metabolic Pbz619 B/C Ratio 27.1 Ratio 06/27/2017 Comp Metabolic Yqo337 CALCIUM 9.6 mg/dL 06/27/2017 Comp Metabolic Wed859 ALK PHOS 46 U/L 06/27/2017 Comp Metabolic Mnn198 AST(SGOT) 23 U/L 06/27/2017 Comp Metabolic Lwb544 ALT(SGPT) 31 U/L 06/27/2017 Comp Metabolic Gau999 BILI T 0.5 mg/dL 06/27/2017 Comp Metabolic Sbr456 ALBUMIN 4.2 g/dL 06/27/2017 Comp Metabolic Iaf565 TPRO 6.6 g/dL 06/27/2017 Comp Metabolic Uor805 GLOB 2.4 g/dL 06/27/2017 Comp Metabolic Uzp435 A/G Ratio 1.7 Ratio 06/27/2017 Comp Metabolic Gcc621 Osmo 285 mOsmo 06/27/2017 Cbc With Differential Ord2 WBC 4.54 K/ul 10/20/2016 Cbc With Differential Ord2 RBC 4.52 M/ul 10/20/2016 Cbc With Differential Ord2 HGB 13.1 g/dl 10/20/2016 Cbc With Differential Ord2 HCT 40.5 % 10/20/2016 Cbc With Differential Ord2 Neut% 56.9 % 10/20/2016 Cbc With Differential Ord2 Lymph% 29.3 % 10/20/2016 Cbc With Differential Ord2 MCV 89.6 fl 10/20/2016 Cbc With Differential Ord2 [place]% 9.0 % 10/20/2016 Cbc With Differential Ord2 MCH 29.0 pg 10/20/2016 Cbc With Differential Ord2 MCHC 32.3 pg 10/20/2016 Cbc With Differential Ord2 Eos% 4.4 % 10/20/2016 Cbc With Differential Ord2 Baso% 0.4 % 10/20/2016 Cbc With Differential Ord2 PLT 156 K/ul 10/20/2016 Cbc With Differential Ord2 RDW 14.4 % 10/20/2016 Cbc With Differential Ord2 Neut ABS# 2.58 K/ul 10/20/2016 Cbc With Differential Ord2 Lymph ABS# 1.33 K/ul 10/20/2016 Cbc With Differential Ord2 [place] ABS# 0.4 K/ul 10/20/2016 Cbc With Differential Ord2 Eos ABS# 0.2 K/ul 10/20/2016 Cbc With Differential Ord2 Baso ABS# 0.0 K/ul 10/20/2016 Lipid Ord30 CHOL 153 mg/dL 10/20/2016 Lipid Ord30 HDL 34.0 mg/dl 10/20/2016 Lipid Ord30 TRIG 123 mg/dL 10/20/2016 Lipid Ord30 LDL 94 mg/dL 10/20/2016 Lipid Ord30 C/HDL 4.5 Ratio 10/20/2016 B12 Ifk346 B12 544.00 pg/ml 10/20/2016 Tsh Ord6 hTSH II 1.56 uIU/mL 10/20/2016 Comp Metabolic Nps850 NA 143 mEq/L 10/20/2016 Comp Metabolic Pjh109 K 4.6 mEq/L 10/20/2016 Comp Metabolic Yvu915 CL 104 mEq/L 10/20/2016 Comp Metabolic Iuj713 CO2 31.0 mEq/L 10/20/2016 Comp Metabolic Bhr480 ANION GAP 13 10/20/2016 Comp Metabolic Ner721 GLUCOSE 117 mg/dL 10/20/2016 Comp Metabolic Ayo589 Creat 1.1 mg/dL 10/20/2016 Comp Metabolic Bxq287 eGFR 74 ml/min/1.73m2 10/20/2016 Comp Metabolic Pbg277 BUN 27 mg/dL 10/20/2016 Comp Metabolic Xdt387 B/C Ratio 25.7 Ratio 10/20/2016 Comp Metabolic Fix995 CALCIUM 9.3 mg/dL 10/20/2016 Comp Metabolic Hov997 ALK PHOS 47 U/L 10/20/2016 Comp Metabolic Nvr618 AST(SGOT) 18 U/L 10/20/2016 Comp Metabolic Zjg666 ALT(SGPT) 22 U/L 10/20/2016 Comp Metabolic Hmm672 BILI T 0.5 mg/dL 10/20/2016 Comp Metabolic Jev229 ALBUMIN 3.9 g/dL 10/20/2016 Comp Metabolic Aph285 TPRO 6.5 g/dL 10/20/2016 Comp Metabolic Hma623 GLOB 2.6 g/dL 10/20/2016 Comp Metabolic Jow021 A/G Ratio 1.5 Ratio 10/20/2016 Comp Metabolic Omk597 Osmo 291 mOsmo 10/20/2016 Comp Metabolic Wan944 NA 138 mEq/L 05/13/2016 Comp Metabolic Pzg026 K 4.2 mEq/L 05/13/2016 Comp Metabolic Fhx180 CL 102 mEq/L 05/13/2016 Comp Metabolic Wgu714 CO2 30.0 mEq/L 05/13/2016 Comp Metabolic Var155 ANION GAP 10 05/13/2016 Comp Metabolic Lme413 GLUCOSE 113 mg/dL 05/13/2016 Comp Metabolic Xyd673 Creat 1.0 mg/dL 05/13/2016 Comp Metabolic Ugj184 eGFR 77 ml/min/1.73m2 05/13/2016 Comp Metabolic Qym634 BUN 26 mg/dL 05/13/2016 Comp Metabolic Kqi501 B/C Ratio 25.5 Ratio 05/13/2016 Comp Metabolic Yhe118 CALCIUM 9.7 mg/dL 05/13/2016 Comp Metabolic Lmh177 ALK PHOS 51 U/L 05/13/2016 Comp Metabolic Cew383 AST(SGOT) 17 U/L 05/13/2016 Comp Metabolic Pqd778 ALT(SGPT) 20 U/L 05/13/2016 Comp Metabolic Gsm427 BILI T 0.6 mg/dL 05/13/2016 Comp Metabolic Aoj284 ALBUMIN 4.0 g/dL 05/13/2016 Comp Metabolic Kuu186 TPRO 6.6 g/dL 05/13/2016 Comp Metabolic Bgw597 GLOB 2.6 g/dL 05/13/2016 Comp Metabolic Dke708 A/G Ratio 1.6 Ratio 05/13/2016 Comp Metabolic Wzb700 Osmo 281 mOsmo 05/13/2016 Lipid Ord30 CHOL 172 mg/dL 05/13/2016 Lipid Ord30 HDL 31.0 mg/dl 05/13/2016 Lipid Ord30 TRIG 141 mg/dL 05/13/2016 Lipid Ord30 LDL 113 mg/dL 05/13/2016 Lipid Ord30 C/HDL 5.5 Ratio 05/13/2016 Lipid Ord30 CHOL 163 mg/dL 02/11/2016 Lipid Ord30 HDL 35.0 mg/dl 02/11/2016 Lipid Ord30 TRIG 200 mg/dL 02/11/2016 Lipid Ord30 LDL 88 mg/dL 02/11/2016 Lipid Ord30 C/HDL 4.7 Ratio 02/11/2016 %Hba1C Xsu077 % HbA1c 79793- 6 6.5 % 02/11/2016 %Hba1C Vet101 Gluc Ave 140 mg/dL 02/11/2016 Tsh Ord6 hTSH II 2.07 uIU/mL 02/11/2016 B12 Shf931 B12 563.00 pg/ml 02/11/2016 Comp Metabolic Lxu719 NA 138 mEq/L 02/11/2016 Comp Metabolic Twk615 K 4.0 mEq/L 02/11/2016 Comp Metabolic Vpa635 CL 97 mEq/L 02/11/2016 Comp Metabolic Cvy128 CO2 32.0 mEq/L 02/11/2016 Comp Metabolic Yfz373 ANION GAP 13 02/11/2016 Comp Metabolic Ujz814 GLUCOSE 117 mg/dL 02/11/2016 Comp Metabolic Rbw570 Creat 1.0 mg/dL 02/11/2016 Comp Metabolic Stb620 eGFR 81 ml/min/1.73m2 02/11/2016 Comp Metabolic Jdn196 BUN 21 mg/dL 02/11/2016 Comp Metabolic Xlv977 B/C Ratio 21.4 Ratio 02/11/2016 Comp Metabolic Uzs418 CALCIUM 9.2 mg/dL 02/11/2016 Comp Metabolic Kuz730 ALK PHOS 48 U/L 02/11/2016 Comp Metabolic Fac500 AST(SGOT) 18 U/L 02/11/2016 Comp Metabolic Mip680 ALT(SGPT) 22 U/L 02/11/2016 Comp Metabolic Npl224 BILI T 0.5 mg/dL 02/11/2016 Comp Metabolic Mmc222 ALBUMIN 3.9 g/dL 02/11/2016 Comp Metabolic Mcj351 TPRO 6.3 g/dL 02/11/2016 Comp Metabolic Yxu939 GLOB 2.5 g/dL 02/11/2016 Comp Metabolic Psp213 A/G Ratio 1.6 Ratio 02/11/2016 Comp Metabolic Mob720 Osmo 280 mOsmo 02/11/2016 Cbc With Differential Ord2 WBC 4.67 K/ul 02/11/2016 Cbc With Differential Ord2 RBC 4.44 M/ul 02/11/2016 Cbc With Differential Ord2 HGB 13.0 g/dl 02/11/2016 Cbc With Differential Ord2 HCT 39.5 % 02/11/2016 Cbc With Differential Ord2 Neut% 63.8 % 02/11/2016 Cbc With Differential Ord2 Lymph% 25.3 % 02/11/2016 Cbc With Differential Ord2 MCV 89.0 fl 02/11/2016 Cbc With Differential Ord2 MCH 29.3 pg 02/11/2016 Cbc With Differential Ord2 [place]% 7.7 % 02/11/2016 Cbc With Differential Ord2 [...] 1.18 K/ul 02/11/2016 Cbc With Differential Ord2 [place] ABS# 0.4 K/ul 02/11/2016 Cbc With Differential Ord2 Eos ABS# 0.1 K/ul 02/11/2016 Cbc With Differential Ord2 Baso ABS# 0.0 K/ul 02/11/2016 Culture Urine [id number] URINE CULTURE SEE NOTES 02/10/2016 Culture Urine [id number] Continued Results 02/10/2016 Urine Culture Ucult Complete [...] hours from collection if refrigerated) 11/04/2015 %Hba1C Cbv928 % HbA1c 01373- 6 6.4 % 04/16/2015 %Hba1C Sgf226 Gluc Ave 137 mg/dL 04/16/2015 Comp Metabolic Oqn256 NA 136 mEq/L 02/07/2015 Comp Metabolic Hzg782 K 3.9 mEq/L 02/07/2015 Comp Metabolic Cdr501 CL 98 mEq/L 02/07/2015 Comp Metabolic Cly052 CO2 31.0 mEq/L 02/07/2015 Comp Metabolic Qxt247 ANION GAP 11 02/07/2015 Comp Metabolic Wxe340 GLUCOSE 139 mg/dL 02/07/2015 Comp Metabolic Sre899 Creat 0.9 mg/dL 02/07/2015 Comp Metabolic Eba380 eGFR 87 ml/min/1.73m2 02/07/2015 Comp Metabolic Foj230 BUN 20 mg/dL 02/07/2015 Comp Metabolic Naj106 B/C Ratio 21.7 Ratio 02/07/2015 Comp Metabolic Dxk425 CALCIUM 9.7 mg/dL 02/07/2015 Comp Metabolic Ses835 ALK PHOS 55 U/L 02/07/2015 Comp Metabolic Kbl236 AST(SGOT) 20 U/L 02/07/2015 Comp Metabolic Yfu886 ALT(SGPT) 27 U/L 02/07/2015 Comp Metabolic Whv161 BILI T 0.5 mg/dL 02/07/2015 Comp Metabolic Gdp040 ALBUMIN 4.3 g/dL 02/07/2015 Comp Metabolic Zow502 TPRO 6.9 g/dL 02/07/2015 Comp Metabolic Bqa395 GLOB 2.6 g/dL 02/07/2015 Comp Metabolic Evy506 A/G Ratio 1.7 Ratio 02/07/2015 Comp Metabolic Wnm110 Osmo 277 mOsmo 02/07/2015 Tsh Ord6 hTSH II 3.33 uIU/mL 02/07/2015 Cbc With Differential Ord2 WBC 6.7 [...] Ord2 RDW 14.8 % 02/07/2015 A1C HPLC [id number] A1C HPLC 26283-5 6.0 % 05/23/2014 VIT D TOTL [id number] VIT D TOTL 29 NG/ML 05/23/2014 VIT B 12 [id number] VIT B 12 479 PG/ML 05/23/2014 Review [...] quickly 06/07/2017 None Full Exam - General 1995 Musculoskeletal head and neck Overall: head atraumatic [...] 4: G0439 12/27/2017 THER/PROPH/DIAG INJ SC/IM CPT-4: 60918 09/07/2017 TRIAMCINOLONE ACET INJ NOS CPT-4: J3301 09/07/2017 ROUTINE VENIPUNCTURE CPT- 4: 64804 05/23/2014 THER/PROPH/DIAG INJ SC/IM CPT-4: 97534 11/28/2013 VITAMIN B12 INJECTION CPT- 4: J3420 11/28/2013 Vital Signs Date Vital 06/27/2018 Blood Pressure 1: 124/70 Code: 8480-6 BMI: 36.6 Code: 26478-6 Heart Rate 1: 64 bpm Height: 6' SpO2: 96% Weight: 270 lbs 04/20/2018 Blood Pressure 1: 126/74 Code: 8480-6 BMI: 36.6 Code: 77516-3 Heart Rate 1: 60 bpm Height: 6' SpO2: 94% Weight: 270 lbs 03/21/2018 Blood Pressure 1: 138/74 Code: 8480-6 BMI: 36.8 Code: 81031-2 Heart Rate 1: 81 bpm Height: 6' SpO2: 98% Weight: 271 lbs 02/08/2018 Blood Pressure 1: 132/74 Code: 8480-6 BMI: 37.0 Code: 81859-4 Heart Rate 1: 82 bpm Height: 6' SpO2: 97% Weight: 273 lbs 12/27/2017 Blood Pressure 1: 148/78 Code: 8480-6 BMI: 36.3 Code: 44845-5 Heart Rate 1: 78 bpm Height: 6' SpO2: 93% Waist Measure (cm): 117 cm Weight: 268 lbs 12/06/2017 Blood Pressure 1: 122/70 Code: 8480-6 BMI: 36.6 Code: 14721-5 Heart Rate 1: 76 bpm Height: 6' SpO2: 93% Weight: 270 lbs 11/01/2017 BMI: 36.9 Code: 12184-8 Height: 6' Weight: 272 lbs 09/07/2017 Blood Pressure 1: 140/78 Code: 8480-6 BMI: 35.8 Code: 36166-1 Heart Rate 1: 76 bpm Height: 6' SpO2: 98% Weight: 264 lbs 06/07/2017 Blood Pressure 1: 138/86 Code: 8480-6 BMI: 36.3 Code: 75352-7 Heart Rate 1: 66 bpm Height: 6' SpO2: 95% Weight: 268 lbs 05/19/2017 Blood Pressure 1: 152/84 Code: 8480-6 BMI: 36.8 Code: 19643-2 Heart Rate 1: 70 bpm Height: 6' SpO2: 93% Weight: 271 lbs 05/09/2017 Blood Pressure 1: 138/76 Code: 8480-6 BMI: 36.6 Code: 43988-6 Heart Rate 1: 79 bpm Height: 6' SpO2: 93% Weight: 270 lbs 04/25/2017 Blood Pressure 1: 150/80 Code: 8480-6 Heart Rate 1: 58 bpm Height: SpO2: 94% Weight: 2017 Blood Pressure 1: 138/80 Code: 8480-6 BMI: 36.5 Code: 31711-1 Heart Rate 1: 76 bpm Height: 6' SpO2: 96% Weight: 269 lbs 03/29/2017 Blood Pressure 1: 118/68 Code: 8480-6 BMI: 36.9 Code: 11993-8 Heart Rate 1: 61 bpm Height: 6' SpO2: 95% Weight: 272 lbs 03/17/2017 Blood Pressure 1: 140/78 Code: 8480-6 BMI: 36.8 Code: 66697-9 Heart Rate 1: 91 bpm Height: 6' SpO2: 93% Weight: 271 lbs 03/08/2017 Blood Pressure 1: 152/84 Code: 8480-6 BMI: 36.8 Code: 86638-9 Heart Rate 1: 72 bpm Height: 6' SpO2: 92% Temperature: 36.6 (C) / 97.8 (F) Weight: 271 lbs 02/17/2017 Blood Pressure 1: 110/64 Code: 8480-6 BMI: 36.5 Code: 39393-9 Heart Rate 1: 62 bpm Height: 6' SpO2: 96% Weight: 269 lbs 01/18/2017 Blood Pressure 1: 140/80 Code: 8480-6 BMI: 36.5 Code: 73402-7 Heart Rate 1: 62 bpm Height: 6' SpO2: 94% Weight: 269 lbs 10/19/2016 Blood Pressure 1: 120/80 Code: 8480-6 BMI: 35.9 Code: 07261-1 Heart Rate 1: 64 bpm Height: 6' SpO2: 97% Weight: 265 lbs 08/17/2016 Blood Pressure 1: 112/76 Code: 8480-6 BMI: 36.1 Code: 70081-3 Heart Rate 1: 65 bpm Height: 6' SpO2: 97% Weight: 266 lbs 07/20/2016 Blood Pressure 1: 126/78 Code: 8480-6 BMI: 35.5 Code: 08476-1 Heart Rate 1: 60 bpm Height: 6' SpO2: 95% Weight: 262 lbs 04/19/2016 Blood Pressure 1: 132/78 Code: 8480-6 BMI: 35.1 Code: 54200-0 Heart Rate 1: 65 bpm Height: 6' SpO2: 98% Weight: 259 lbs 01/19/2016 Blood Pressure 1: 140/64 Code: 8480-6 BMI: 34.4 Code: 18688-6 Heart Rate 1: 61 bpm Height: 6' SpO2: 97% Weight: 254 lbs 10/16/2015 Blood Pressure 1: 108/66 Code: 8480-6 BMI: 35.3 Code: 08170-0 Heart Rate 1: 65 bpm Height: 6' SpO2: 96% Weight: 260 lbs 07/17/2015 Blood Pressure 1: 136/74 Code: 8480-6 BMI: 35.8 Code: 82688-3 Heart Rate 1: 59 bpm Height: 6' SpO2: 97% Weight: 263 lbs 13 07/03/2015 Weight: 265 lbs 04/16/2015 Blood Pressure 1: 130/82 Code: 8480-6 BMI: 36.1 Code: 26171-7 Heart Rate 1: 7694 bpm Height: 6' SpO2: 94% Weight: 266 lbs 02/19/2015 Blood Pressure 1: 160/90 Code: 8480-6 BMI: 35.8 Code: 21901-5 Heart Rate 1: 78 bpm Height: 6' SpO2: 94% Weight: 264 lbs 11/20/2014 Blood Pressure 1: 140/96 Code: 8480-6 BMI: 34.6 Code: 41993-0 Heart Rate 1: 92 bpm Height: 6' SpO2: 95% Weight: 255 lbs 11/05/2014 Blood Pressure 1: 132/70 Code: 8480-6 BMI: 34.6 Code: 03683-7 Heart Rate 1: 96 bpm Height: 6' SpO2: 98% Weight: 255 lbs 09/19/2014 Blood Pressure 1: 152/86 Code: 8480-6 BMI: 35.8 Code: 37504-8 Heart Rate 1: 82 bpm Height: 6' SpO2: 95% Weight: 264 lbs 07/24/2014 Blood Pressure 1: 142/82 Code: 8480-6 BMI: 34.7 Code: 50204-1 Heart Rate 1: 72 bpm Height: 6' Weight: 256 lbs 05/23/2014 Blood Pressure 1: 150/82 Code: 8480-6 BMI: 33.4 Code: 11644-9 Heart Rate 1: 68 bpm Height: 6' Weight: 246 lbs 04/18/2014 Blood Pressure 1: 132/84 Code: 8480-6 BMI: 33.2 Code: 41782-3 Heart Rate 1: 80 bpm Height: 6' Weight: 245 lbs 02/21/2014 Blood Pressure 1: 138/82 Code: 8480-6 BMI: 32.4 Code: 86576-8 Heart Rate 1: 85 bpm Height: 6' SpO2: 98% Weight: 239 lbs 12/25/2013 Blood Pressure 1: 146/80 Code: 8480-6 BMI: 30.5 Code: 65565-0 Heart Rate 1: 100 bpm Height: 6' Weight: 225 lbs 11/28/2013 Blood Pressure 1: 120/64 Code: 8480-6 BMI: 30.4 Code: 63934-7 Heart Rate 1: 68 bpm Height: 6' Weight: 224 lbs 11/14/2013 Blood Pressure 1: 124/80 Code: 8480-6 BMI: 30.0 Code: 86488-6 Heart Rate 1: 76 bpm Height: 6' [...] cataract getting worse,. Sees eye for that. neck pain Location in the [...] and tinea capitis[ICD10: B35.0] Glory Long MD, [facility] CPT-4: 45817 06/27/2018 ([id number]) 84651 EST. 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 PATIENT, LEVEL III Diagnosis: Acute bronchitis due to other specified organisms[ICD10: J20.8] Antoinette Long MD, [facility] CPT-4: 53833 02/08/2018 ([id number]) 51578 EST. 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 PATIENT, LEVEL III Diagnosis: Essential (primary) hypertension[ICD10: I10] Diagnosis: Localized edema[ICD10: R60.0] Diagnosis: Cellulitis of left lower limb[ICD10: L03.116] Quyen Long MD [facility] CPT-4: 13354 06/07/2017 ([id number]) 29898 EST. 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 PATIENT, LEVEL II Diagnosis: Rash and other nonspecific skin eruption[ICD10: R21] Glory Long MD, [facility] CPT-4: 17546 05/09/2017 ([id number]) 99623 EST. PATIENT, LEVEL II Diagnosis: Rash and other nonspecific skin eruption[ICD10: R21] Glory Long MD [facility] CPT-4: 97277 04/25/2017 ([id number]) 92196 EST. PATIENT, LEVEL III Diagnosis: Cellulitis of left lower limb[ICD10: L03.116] Diagnosis: Rash and other nonspecific skin eruption[ICD10: R21] Glory Long MD, [facility] CPT-4: 69029 2017 ([id number]) 77585 EST. PATIENT, LEVEL III Diagnosis: Cellulitis of left lower limb[ICD10: L03.116] Diagnosis: Rash and other nonspecific skin eruption[ICD10: R21] Glory Long MD [facility] CPT-4: 24238 03/29/2017 97992 EST. PATIENT, LEVEL IV Diagnosis: Cellulitis of left lower limb[ICD10: L03.116] Antoinette Long MD [facility] CPT-4: 91632 03/17/2017 ([id number]) 02868 EST. PATIENT, LEVEL III Diagnosis: Rash and other nonspecific skin eruption[ICD10: R21] Glory Long MD [facility] CPT-4: 30991 03/08/2017 52071 EST. PATIENT, LEVEL IV Diagnosis: Essential (primary) hypertension[ICD10: I10] Diagnosis: Muscle weakness (generalized)[ICD10: M62.81] Diagnosis: Body mass index (BMI) 36.0-36.9, adult[ICD10: Z68.36] Diagnosis: Family history of ischemic heart disease and other diseases of the circulatory system[ICD10: Z82.49] Antoinette Long MD [facility] CPT-4: 05854 02/17/2017 ([id number]) 33976 EST. PATIENT, LEVEL IV Diagnosis: Essential (primary) hypertension[ICD10: I10] Diagnosis: Muscle weakness (generalized)[ICD10: M62.81] Quyen Long MD [facility] CPT-4: 40950 01/18/2017 ([id number]) 64862 EST. 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 PATIENT, LEVEL III Diagnosis: Pain in left shoulder[ICD10: M25.512] Diagnosis: Rash and other nonspecific skin eruption[ICD10: R21] Glory Long MD [facility] CPT-4: 76835 08/17/2016 ([id number]) 97181 EST. PATIENT, LEVEL IV Diagnosis: Essential (primary) hypertension[ICD10: I10] Diagnosis: Pain in left shoulder[ICD10: M25.512] Quyen Long MD, [facility] CPT-4: 62728 07/20/2016 ([id number]) 78482 EST. 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 PATIENT, LEVEL IV Diagnosis: Essential (primary) hypertension[ICD10: I10] Diagnosis: Other abnormal glucose[ICD10: R73.09] Diagnosis: Gastro-esophageal reflux disease without esophagitis[ICD10: K21.9] Diagnosis: Obesity, unspecified[ICD10: E66.9] Quyen Long MD [facility] CPT- 4: 60352 04/16/2015 ([id number]) 75183 EST. PATIENT, LEVEL IV Diagnosis: ESSENTIAL HYPERTENSION[ICD9: 401.9] Diagnosis: OBESITY[ICD9: 278.00] Diagnosis: Post-polio limb muscle weakness[ICD9: 728.87] Quyen Long MD [facility] CPT-4: 44781 02/19/2015 ([id number]) 68374 EST. PATIENT, LEVEL IV Diagnosis: Shingles outbreak[ICD9: 053.9] Diagnosis: ESSENTIAL HYPERTENSION[ICD9: 401.9] Diagnosis: Earache[ICD9: 388.70] Quyen Long MD [facility] CPT-4: 54564 11/20/2014 ([id number]) 40092 EST. PATIENT, LEVEL III Diagnosis: Shingles outbreak[ICD9: 053.9] Diagnosis: Face pain[ICD9: 784.0] Diagnosis: Pain, eye, right[ICD9: 379.91] Quyen Long MD [facility] CPT-4: 69289 11/05/2014 ([id number]) 06491 EST. PATIENT, LEVEL V Diagnosis: Post-polio limb muscle weakness[ICD9: 728.87] Diagnosis: Post-polio syndrome[ICD9: 138] Diagnosis: Leg weakness[ICD9: 729.89] Diagnosis: Weakness[ICD9: 780.79] Diagnosis: Foot drop[ICD9: 736.79] Quyen Long MD [facility] CPT-4: 39324 09/19/2014 ([id number]) 78728 EST. PATIENT, LEVEL IV Diagnosis: ESSENTIAL HYPERTENSION[ICD9: 401.9] Diagnosis: Carotid bruit[ICD9: 785.9] Diagnosis: Seborrheic dermatitis[ICD9: 690.10] Diagnosis: Post-polio syndrome[ICD9: 138] Diagnosis: Vitamin D deficiency[ICD9: 268.9] Quyen Long MD [facility] CPT- 4: 80844 07/24/2014 ([id number]) 54918 EST. PATIENT, LEVEL IV Diagnosis: Neck pain[ICD9: 723.1] Diagnosis: Post-polio syndrome[ICD9: 138] Diagnosis: Vitamin D deficiency[ICD9: 268.9] Diagnosis: Vitamin B12 deficiency[ICD9: 266.2] Diagnosis: Nocturia[ICD9: 788.43] Diagnosis: Leg weakness[ICD9: 729.89] Diagnosis: Elevated blood sugar[ICD9: 790.29] Glory Long MD, [facility] CPT- 4: 92297 05/23/2014 ([id number]) 40347 EST. PATIENT, LEVEL IV Diagnosis: ESSENTIAL HYPERTENSION[ICD9: 401.9] Diagnosis: HEADACHE[ICD9: 784.0] Diagnosis: EDEMA[ICD9: 782.3] Quyen Long MD, [facility] CPT-4: 04665 04/18/2014 59097 EST. PATIENT, LEVEL IV Diagnosis: Insomnia[ICD9: 780.52] Diagnosis: Post-polio syndrome[ICD9: 138] Diagnosis: Vitamin D deficiency[ICD9: 268.9] Diagnosis: Nocturnal hypoxemia[ICD9: 799.02] Glory Long MD, [facility] CPT- 4: 97489 02/21/2014 ([id number]) 39929 EST. PATIENT, LEVEL III Diagnosis: Tinea pedis[ICD9: 110.4] Diagnosis: Post-polio limb muscle weakness[ICD9: 728.87] Glory Long MD, [facility] CPT-4: 80430 12/25/2013 ([id number]) 88283 EST. PATIENT, LEVEL IV Diagnosis: Insomnia[ICD9: 780.52] Diagnosis: Vitamin B12 deficiency (dietary) anemia[ICD9: 281.1] Diagnosis: VITAMIN D DEFICIENCY[ICD9: 268.9] Diagnosis: Weakness[ICD9: 780.79] Quyen Long MD, [facility] CPT-4: 52354 11/28/2013 ([id number]) OFFICE/OUTPATIENT VISIT NEW Diagnosis: Post-polio limb muscle weakness[ICD9: 728.87] Diagnosis: Post-polio syndrome[ICD9: 138] Diagnosis: Insomnia[ICD9: 780.52] Diagnosis: Arrhythmia[ICD9: 427.9] [facility] CPT-4: 06180 11/14/2013 Plan of Care Planned Activity Notes Codes Status Date Visit Plan: Tinea barbae -rx for ketoconazole written and instructed patient on use -instructed patient to call or return to clinic if symptoms do not resolve or if any worse. Patient verbalized understanding of plan. 06/27/2018 Appointment: Glory Dalton WPtel: [phone] (30 min) Complex 06/27/2018 Patient Education: Patient [...] his shoulder. 04/20/2018 Appointment: Quyen Long WPtel: [facility] (15 min) Moderate 04/20/2018 Patient Education: Patient Medication Summary Completed 04/20/2018 Patient Education: Hypertension Completed 04/20/2018 Appointment: Quyen Long WPtel: [facility] (15 min) Moderate 04/11/2018 Visit Plan: Post polio syndrome -right leg weakness -patient needs repair and adjustment of his right leg brace that helps with his symptoms of instability and weakness and allows him to ambulate -will send rx to [facility] 03/21/2018 Appointment: Glory Dalton WPtel: [phone] (15 min) Moderate 03/21/2018 Patient Education: Patient [...] worsen. 02/08/2018 App[facility]ment[phone] ([facility] min[facility] Complex 02/08/2018 Patient [...] Completed 12/27/2017 [phone] ([facility] Moderate 12/08/2017 Visit Plan: Hypertension [...] for shoulder injection. 12/06/2017 App[facility]ment[phone] ([facility] min) Moderate 12/06/2017 Patient Education: Patient [...] weight check. 09/07/2017 Appointment: Quyen Long WPtel: [facility] (15 min) Moderate 09/07/2017 Patient Education: [...] Appointment: Quyen Long WPtel: [facility] (15 min) Moderate 06/07/2017 Patient Education: [...] Appointment: [facility] Long [facility]Ptel[facility] ([facility] min) Moderate 05/19/2017 Patient Education: Patient Medication Summary Completed 05/19/2017 Patient Education: Obesity Completed 05/19/2017 Patient Education: Hypertension Completed 05/19/2017 Visit Plan: Rash-left mgnv-otplfeup-nlkdcpbtrb patient to continue using ketoconazole plus betamethasone equal parts and increase to TID-leave foot open to air as much as possible-follow up in 2 weeks, sooner if needed. 05/09/2017 Appointment: Glory Dalton WPtel: [phone] [place] (30 min) Complex 05/09/2017 Patient Education: Patient Medication Summary Completed 05/09/2017 Patient Education: Obesity Completed 05/09/2017 Visit Plan: Rash-left foot-Dr Long in to evaluate rash-instructed patient to start using ketoconazole plus betamethasone equal parts TID -follow up in 2 weeks, sooner if needed. 04/25/2017 Appointment: Glory Dalton WPtel: [address] [place], [place] [phone] (30 min) Complex 04/25/2017 Patient Education: Patient Medication Summary Completed 04/25/2017 Visit Plan: Cellulitis of left foot-no longer draining-no open areas-no excoriation-slightly red-okay to d/c all treatments-keep clean and monitor-call if redness does not resolve Rash-resolved 2017 Appointment: Glory Dalton WPtel: [address] [place], [place] [phone] (30 min) Complex 2017 Patient Education: Patient Medication Summary Completed 2017 Patient Education: Obesity Completed 2017 Visit Plan: Cellulitis-left foot-MSSA xmgjkbza-gfrnfpxse-rhjwq air in the evening-continue bactroban ointment twice daily-stop using alcohol on foot-no papertowels or abrasives to foot Njld-ebbx-cy for betamethasone provided and instructed on use 03/29/2017 Appointment: Glory Dalton WPtel: [address] [place], [place] [phone] (30 min) Complex 03/29/2017 Patient Education: Patient Medication Summary Completed 03/29/2017 Patient Education: Obesity Completed 03/29/2017 Appointment: Glory Dalton WPtel: [address] [place], [place] [phone] (30 min) Complex 03/22/2017 Visit Plan: Cellulitis [...] warmth, discharge. 03/17/2017 Appointment: [facility]ndt [phone] ([facility] min) Complex 03/17/2017 Patient [...] the break. 01/18/2017 App[facility]ment[phone] (15 min) Moderate 01/18/2017 Patient Education: Patient [...] and weakness. 10/19/2016 Appointment: [phone] (15 min) Moderate 10/19/2016 Patient Education: Patient Medication Summary Completed 10/19/2016 Patient Education: Obesity Completed 10/19/2016 Visit Plan: Left shoulder pain-hospital f/u recent shoulder surgery with Dr Wilson-doing well-sees Dr Wilson this afternoon for suture removal-pain improved Zkai-dvsz-ivnydcj fungal infection-will treat with ket oconazole -follow up in 2 weeks 08/17/2016 Appointment: Gl[facility] Dalton [facility]el[phone] [phone] (30 min) Complex 08/17/2016 Patient [...] ambulating. 07/20/2016 Appointment: Quyen Long WPtel: [phone] [facility] (15 min) Moderate 07/20/2016 Patient Education: [...] strengthening. 04/19/2016 Appointment: Quyen Long WPtel: [phone] [facility] (15 min) Moderate 04/19/2016 Patient Education: [...] up appointment. 01/19/2016 App[facility]ment: [phone] (15 min) Moderate 01/19/2016 Patient Education: Patient Medication Summary Completed 01/19/2016 Patient Education: Obesity Completed 01/19/2016 Patient Education: Hypertension Completed 01/19/2016 Referral: Dr Mccauley Referral Completed 11/11/2015 Care Plan: Referral Order SNOMED-CT : [id number] Pending 11/03/2015 Visit Plan: Hypertension - well [...] with injection 10/16/2015 Appointment: Quyen Long WPtel[facility] (15 min) Moderate 10/16/2015 Patient Education: Patient [...] - 02/19/2015 Appointment: Quyen Long WPtel: [phone] [facility] (15 min) Moderate 02/19/2015 Patient Education: [...] ear drops. 11/20/2014 Appointment: Quyen Long WPtel: [facility] Follow up 11/20/2014 Patient Education: Patient [...] ESME. 11/05/2014 Appointment: Quyen Long WPtel: [phone] [facility] (15 min) Moderate 11/05/2014 Patient Education: Patient [...] and foot. 09/19/2014 Appointment: Quyen Long WPtel: [address] [place] [address] Follow up 09/19/2014 Patient Education: Patient Medication [...] deficiency - recommended repeat of vitamin d 26506nvizl weekly x 12 weeks and increase vitamin d to 5000 units daily. 07/24/2014 Appointment: Quyen Long WPtel: [facility] [place] Follow up 07/24/2014 Patient Education: [...] B12 level 05/23/2014 Appointment: Glory Dalton WPtel: [id number] Follow up 05/23/2014 Patient Education: Patient Medication Summary Completed 05/23/2014 Patient Education: .Cervicalgia Neck Pain Completed 05/23/2014 Appointment: Quyen Long [facility]Ptel[id number] [place] Follow up 05/22/2014 Visit Plan: Edema [...] home. 04/18/2014 Appointment: [phone] [facility] 04/18/2014 Patient Education: Patient Medication Summary Completed 04/18/2014 Patient Education: Hypertension Completed 04/18/2014 Appointment: Quyen Long WPtel: [facility] Follow up 02/27/2014 Visit Plan: Insomnia - Pt has been advised to increase the light in the house during the day, and start dimming the lights during the evening hours. Pt has been advised to cut out caffeine after 5pm. Daytime napping worsens night time insomnia. START TRAZODONE AND MONITOR SYMPTOMS. Vitamin D tnlstqydpb-ppsfywmx-udtoatvf vitamin D 50,000 units weekly for 12 additional weeks. Hypoxemia-continue night time oxygen 02/21/2014 Appointment: Gl[facility] Dalton [phone] Follow up 02/21/2014 Patient Education: [...] on mobic. 11/28/2013 Appointment: [phone] [facility] 11/28/2013 Patient Education: Patient Medication [...] oxygen study. 11/14/2013 Appointment: [phone] [place] New Patient 11/14/2013 Patient Education: Patient Medication Summary Completed 11/14/2013 Referral: Dr Mccauley Referral Appointment Requested Instructions Comment . Tinea pedis-discussed natural expected course of [...] deficiency - recommended repeat of vitamin d [id number] weekly x 12 weeks and increase vitamin [...] up in 10 days . Cellulitis-left foot-MSSA uciakzhm-zqzlljwdt-okcqb air in the evening-continue bactroban ointment twice daily-stop using alcohol on foot-no papertowels or abrasives to foot Rvby-xgzi-nw for betamethasone provided and instructed on use [...] and dressings to lower leg. . Rash-left rvgr-qltcdpoo-lixgtbabzw patient to continue using ketoconazole plus betamethasone equal parts and increase to TID-leave foot open to air as much as possible-follow up in 2 weeks, sooner if needed. prevnar 13 if hasn't had one . [...] START TRAZODONE AND MONITOR SYMPTOMS. Vitamin D atywpcyclq-vdbdwuij-gqktxgpf vitamin D 50,000 units weekly for 12 additional weeks. Hypoxemia-continue night time oxygen . Tinea barbae -rx for ketoconazole written [...] to [facility] the [facility]. Vitamin b12 Vitamin D Hgb A1C cervical [...] Wilson this afternoon for suture removal-pain improved Kghy-hoiv-jzrfhbz fungal infection-will treat with ketoconazole -follow up [...] resolving, can consider Auralgan ear drops. . Cellulitis - left foot - The patient was instructed in appropriate wound care. The patient was instructed to use the antibiotic ointment as per RX. The patient is to call for any change in symptoms, increase in size of the lesion, increase in pain, worsening redness, warmth, discharge. . pt down one pound . Shingles - Herpes Zoster - acute [...] him to ambulate -will send rx to [facility]
--- OUTSIDE RECORDS SUMMARY | 2018-11-10 16:09 | XMS REPORT | CCD ---
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 phone or fax) Vitamin B-12 1,000 mcg/mL injection solution RxNorm: 180677 Milliliter(s) INJECT 1ML MONTHLY 06/15/2018 06/18/2018 Inactive Zithromax Z-Brian 250 mg tablet RxNorm: 430027 1 Tablet(s) PO UD 06/14/2018 No Stop Date Active zpack as directed x1 tamsulosin 0.4 mg capsule RxNorm: 496614 TAKE ONE CAPSULE BY MOUTH EVERY EVENING 06/12/2018 01/07/2019 Active gabapentin 300 mg capsule RxNorm: 615216 TAKE ONE CAPSULE BY MOUTH TWICE A DAY 05/31/2018 09/27/2018 Active losartan 50 mg tablet RxNorm: 302467 TAKE ONE TABLET BY MOUTH DAILY 05/01/2018 09/27/2018 Active Toprol XL 50 mg tablet,extended release RxNorm: 287433 1 Tablet(s) PO daily 04/20/2018 No Stop Date Active Vitamin D3 5,000 unit tablet RxNorm: 138737 TAKE ONE TABLET BY MOUTH DAILY 04/05/2018 02/28/2019 Active trazodone 50 mg tablet RxNorm: 803388 TAKE ONE TABLET BY MOUTH AT BEDTIME 02/27/2018 07/26/2018 Active ranitidine 150 mg tablet RxNorm: 216543 1 Tablet(s) PO BID 02/13/2018 02/07/2019 Active hydrochlorothiazide 25 mg tablet RxNorm: 330683 TAKE ONE TABLET BY MOUTH DAILY 02/13/2018 11/09/2018 Active albuterol sulfate 2.5 mg/3 mL (0.083 %) solution for nebulization RxNorm: 096931 3 Milliliter(s) INH UD 02/08/2018 No Stop Date Active please deliver all of his prescriptions thank you cefdinir 300 mg capsule RxNorm: 933672 1 Capsule(s) PO BID 02/08/2018 02/17/2018 Inactive prednisone 20 mg tablet RxNorm: 521074 2 Tablet(s) PO daily 02/08/2018 02/12/2018 Inactive fluticasone 50 mcg/actuation nasal spray,suspension RxNorm: 2819035 1 [place] NASAL BID 02/07/2018 06/06/2018 Inactive fluticasone 50 mcg/actuation nasal spray,suspension RxNorm: 9675830 1 [place] NASAL BID 02/07/2018 02/06/2018 Inactive Zithromax Z-Brian 250 mg tablet RxNorm: 491141 1 Tablet(s) PO UD 02/07/2018 03/14/2018 Inactive zpack as directed tamsulosin 0.4 mg capsule RxNorm: 328564 TAKE ONE CAPSULE BY MOUTH EVERY EVENING 01/13/2018 06/11/2018 Inactive cetirizine 10 mg tablet RxNorm: 0487805 TAKE ONE TABLET BY MOUTH EVERY NIGHT AT BEDTIME 01/02/2018 04/01/2018 Inactive Vitamin D3 5,000 unit tablet RxNorm: 542181 TAKE ONE TABLET BY MOUTH DAILY 01/02/2018 04/04/2018 Inactive cetirizine 10 mg tablet RxNorm: 2637589 1 Tablet(s) PO QHS 12/26/2017 01/01/2018 Inactive cetirizine 10 mg tablet RxNorm: 8551421 1 Tablet(s) PO QHS 12/26/2017 12/25/2017 Inactive losartan 50 mg tablet RxNorm: 363167 TAKE ONE TABLET BY MOUTH DAILY (STARTING 09-09-2017) 09/29/2017 03/27/2018 Inactive Request already responded to by other means (e.g. phone or fax) losartan 50 mg tablet RxNorm: 352225 1 Tablet(s) PO daily 09/27/2017 09/26/2017 Inactive losartan 50 mg tablet RxNorm: 706062 1 Tablet(s) PO daily 09/27/2017 09/28/2017 Inactive Bactrim DS 800 mg-160 mg tablet RxNorm: 455761 1 Tablet(s) PO BID 09/13/2017 09/19/2017 Inactive Kenalog 40 mg/mL suspension for injection RxNorm: 3598869 1 Milliliter(s) Inj 09/07/2017 09/07/2017 Inactive trazodone 50 mg tablet RxNorm: 411796 TAKE ONE TABLET BY MOUTH AT BEDTIME 08/16/2017 02/11/2018 Inactive gabapentin 300 mg capsule RxNorm: 695083 1 Capsule(s) PO BID 08/03/2017 01/29/2018 Inactive Vitamin D3 5,000 unit tablet RxNorm: 297899 TAKE ONE TABLET BY MOUTH DAILY 08/01/2017 12/28/2017 Inactive ketoconazole 2 % topical cream RxNorm: 667228 APPLY TO AFFECTED AREA(S) TWO TIMES A DAY 05/31/2017 06/29/2017 Inactive hydrochlorothiazide 25 mg tablet RxNorm: 706870 TAKE ONE TABLET BY MOUTH DAILY 05/16/2017 02/09/2018 Inactive lisinopril 20 mg tablet RxNorm: 739644 TAKE ONE TABLET BY MOUTH DAILY 05/16/2017 09/06/2017 Inactive ketoconazole 2 % topical cream RxNorm: 203800 1 Application TOP BID 03/29/2017 04/11/2017 Inactive apply to faice-deliver to [facility] please betamethasone dipropionate 0.05 % topical ointment RxNorm: 941532 1 Application TOP BID 03/29/2017 04/11/2017 Inactive apply to arm/chests for itching gabapentin 300 mg capsule RxNorm: 889875 1 Capsule(s) PO BID 03/29/2017 08/02/2017 Inactive trazodone 50 mg tablet RxNorm: 419266 TAKE ONE TABLET BY MOUTH AT BEDTIME 03/28/2017 08/15/2017 Inactive Vesicare 10 mg tablet RxNorm: 080830 TAKE ONE TABLET BY MOUTH EVERY NIGHT AT BEDTIME 03/21/2017 12/26/2017 Inactive Vesicare 10 mg tablet RxNorm: 483861 TAKE ONE TABLET BY MOUTH EVERY NIGHT AT BEDTIME 03/21/2017 06/06/2017 Inactive doxycycline hyclate 100 mg capsule RxNorm: 0827318 1 Capsule(s) PO BID 03/18/2017 03/27/2017 Inactive mupirocin 2 % topical ointment RxNorm: 427693 1 Application TOP BID 03/17/2017 No Stop Date Active doxycycline hyclate 100 mg tablet RxNorm: 208425 1 Tablet(s) PO BID 03/09/2017 03/15/2017 Inactive Take probiotic BID while on ABT doxycycline hyclate 100 mg tablet RxNorm: 376289 1 Tablet(s) PO BID 03/09/2017 03/08/2017 Inactive Take probiotic BID while on ABT meloxicam 15 mg tablet RxNorm: 283278 TAKE ONE TABLET BY MOUTH DAILY 02/10/2017 12/06/2017 Inactive Vitamin D3 5,000 unit tablet RxNorm: 112851 TAKE ONE TABLET BY MOUTH DAILY 02/08/2017 07/31/2017 Inactive Vitamin B-12 1,000 mcg/mL injection solution RxNorm: 240854 INJECT 1ML MONTHLY 01/24/2017 07/22/2017 Inactive lisinopril 20 mg tablet RxNorm: 476308 TAKE ONE TABLET BY MOUTH DAILY 12/13/2016 04/11/2017 Inactive trazodone 50 mg tablet RxNorm: 892107 TAKE ONE TABLET BY MOUTH AT BEDTIME 09/24/2016 03/22/2017 Inactive Vitamin D3 5,000 unit tablet RxNorm: 178097 TAKE ONE TABLET BY MOUTH DAILY 09/20/2016 02/07/2017 Inactive lisinopril 20 mg tablet RxNorm: 449178 TAKE ONE TABLET BY MOUTH DAILY 09/13/2016 12/12/2016 Inactive ketoconazole 2 % topical cream RxNorm: 218163 1 Application TOP BID 08/17/2016 08/30/2016 Inactive deliver to [facility] Pepcid 20 mg tablet RxNorm: 456971 TAKE ONE TABLET BY MOUTH TWICE A DAY 07/12/2016 12/26/2017 Inactive omega-3 acid ethyl esters 1 gram capsule RxNorm: 034145 3 Capsule(s) PO daily 06/18/2016 12/14/2016 Inactive omega-3 acid ethyl esters 1 gram capsule RxNorm: 567878 3 Capsule(s) PO daily 06/18/2016 06/17/2016 Inactive trazodone 50 mg tablet RxNorm: 636184 TAKE ONE TABLET BY MOUTH AT BEDTIME 06/08/2016 08/06/2016 Inactive tamsulosin 0.4 mg capsule RxNorm: 064460 Capsule(s) TAKE ONE CAPSULE BY MOUTH EVERY EVENING 06/04/2016 12/30/2016 Inactive hydrochlorothiazide 25 mg tablet RxNorm: 126932 TAKE ONE TABLET BY MOUTH DAILY 05/10/2016 05/09/2016 Inactive hydrochlorothiazide 25 mg tablet RxNorm: 767351 TAKE ONE TABLET BY MOUTH DAILY 05/10/2016 02/12/2018 Inactive Pepcid 20 mg tablet RxNorm: 011276 1 Tablet(s) PO BID 03/18/2016 03/17/2016 Inactive Pepcid 20 mg tablet RxNorm: 220604 1 Tablet(s) PO BID 03/18/2016 07/11/2016 Inactive lisinopril 20 mg tablet RxNorm: 357170 TAKE ONE TABLET BY MOUTH DAILY 03/18/2016 08/14/2016 Inactive Vitamin D3 5,000 unit tablet RxNorm: 076071 Tablet(s) TAKE ONE TABLET BY MOUTH DAILY 03/18/2016 09/13/2016 Inactive trazodone 50 mg tablet RxNorm: 099615 TAKE ONE TABLET BY MOUTH AT BEDTIME 03/15/2016 06/07/2016 Inactive Vesicare 10 mg tablet RxNorm: 264641 1 Tablet(s) PO QHS 03/15/2016 02/07/2017 Inactive meloxicam 15 mg tablet RxNorm: 366031 TAKE ONE TABLET BY MOUTH DAILY 03/01/2016 01/24/2017 Inactive Bactrim DS 800 mg-160 mg tablet RxNorm: 534987 1 Tablet(s) PO BID 02/10/2016 02/09/2016 Inactive Bactrim DS 800 mg-160 mg tablet RxNorm: 130455 1 Tablet(s) PO BID 02/10/2016 02/16/2016 Inactive Cipro 500 mg tablet RxNorm: 024559 1 Tablet(s) PO BID 02/06/2016 02/09/2016 Inactive Cipro 500 mg tablet RxNorm: 468272 1 Tablet(s) PO BID 02/06/2016 02/05/2016 Inactive Pen[place]aid 20 mg/gram/actuation (2 %) topical soln in metered- dose pump RxNorm: 6552858 2 pumps TOP BID 01/19/2016 04/19/2016 Inactive tamsulosin 0.4 mg capsule RxNorm: 863626 TAKE ONE CAPSULE BY MOUTH EVERY EVENING 01/12/2016 06/03/2016 Inactive cyanocobalamin (vit B-12) 1,000 mcg/mL injection solution RxNorm: 996908 INJECT 1 ML INTRAMUSCULARLY MONTHLY 01/01/2016 10/26/2016 Inactive Request already responded to by other means (e.g. phone or fax) Vitamin B-12 1,000 mcg/mL injection solution RxNorm: 614004 1 Milliliter(s) Inj monthly 12/24/2015 04/19/2016 Inactive please give syringes for injections Vitamin D3 5,000 unit tablet RxNorm: 601429 TAKE ONE TABLET BY MOUTH DAILY 12/08/2015 03/06/2016 Inactive pantoprazole 40 mg tablet,delayed release RxNorm: 142243 TAKE ONE TABLET BY MOUTH DAILY 12/08/2015 03/17/2016 Inactive trazodone 50 mg tablet RxNorm: 271737 TAKE ONE TABLET BY MOUTH AT BEDTIME 11/10/2015 03/08/2016 Inactive lisinopril 20 mg tablet RxNorm: 183632 TAKE ONE TABLET BY MOUTH DAILY 09/08/2015 03/05/2016 Inactive Vitamin D3 5,000 unit tablet RxNorm: 258885 1 Tablet(s) PO daily 08/12/2015 12/07/2015 Inactive pantoprazole 40 mg tablet,delayed release RxNorm: 627472 1 Tablet(s) PO daily 08/12/2015 12/07/2015 Inactive tamsulosin 0.4 mg capsule RxNorm: 281949 TAKE ONE CAPSULE BY MOUTH EVERY EVENING 07/21/2015 12/17/2015 Inactive trazodone 50 mg tablet RxNorm: 422599 TAKE ONE TABLET BY MOUTH AT BEDTIME 05/09/2015 10/05/2015 Inactive hydrochlorothiazide 25 mg tablet RxNorm: 505391 1 Tablet(s) PO QAM 04/30/2015 04/29/2015 Inactive hydrochlorothiazide 25 mg tablet RxNorm: 994585 TAKE ONE TABLET BY MOUTH DAILY 04/30/2015 02/12/2018 Inactive pantoprazole 40 mg tablet,delayed release RxNorm: 783630 1 Tablet(s) PO daily 04/16/2015 08/11/2015 Inactive meloxicam 15 mg tablet RxNorm: 047919 TAKE ONE TABLET BY MOUTH DAILY 03/03/2015 02/25/2016 Inactive lisinopril 20 mg tablet RxNorm: 420505 1 Tablet(s) PO daily 02/19/2015 09/07/2015 Inactive tamsulosin 0.4 mg capsule RxNorm: 409742 TAKE ONE CAPSULE BY MOUTH EVERY EVENING 01/20/2015 07/18/2015 Inactive cyanocobalamin (vit B-12) 1,000 mcg/mL injection solution RxNorm: 648046 Milliliter(s) INJECT 1ML INTRAMUSCULARLY MONTHLY 12/12/2014 12/22/2014 Inactive trazodone 50 mg tablet RxNorm: 914953 TAKE ONE TABLET BY MOUTH AT BEDTIME 11/14/2014 05/08/2015 Inactive erythromycin 5 mg/gram (0.5 %) eye ointment RxNorm: 018398 1/2 inch OPH QID 11/05/2014 11/14/2014 Inactive acyclovir 800 mg tablet RxNorm: 396620 1 Tablet(s) PO TID 11/05/2014 11/18/2014 Inactive Zofran 4 mg tablet RxNorm: 514964 1 Tablet(s) PO Q4H as needed nausea 11/05/2014 01/03/2015 Inactive Duragesic 12 mcg/hr transdermal patch RxNorm: 436388 1 Patch TD Q72H 11/05/2014 02/04/2015 Inactive Imitrex 100 mg tablet RxNorm: 858821 1 Tablet(s) PO q 12 hours 11/04/2014 04/15/2015 Inactive naproxen 500 mg tablet RxNorm: 020087 1 Tablet(s) PO BID 10/30/2014 11/01/2014 Inactive meloxicam 15 mg tablet RxNorm: 426740 TAKE ONE TABLET BY MOUTH DAILY 10/04/2014 03/02/2015 Inactive Vesicare 5 mg tablet RxNorm: 483897 TAKE ONE TABLET BY MOUTH AT BEDTIME 09/16/2014 07/16/2015 Inactive Vitamin D2 50,000 unit capsule RxNorm: 355388 1 Capsule(s) PO QW 09/06/2014 07/16/2015 Inactive once weekly x 12 weeks tamsulosin ER 0.4 mg capsule,extended release 24 hr RxNorm: 896655 TAKE ONE CAPSULE BY MOUTH EVERY EVENING 06/24/2014 12/20/2014 Inactive tamsulosin ER 0.4 mg capsule,extended release 24 hr RxNorm: 214685 1 Capsule(s) PO QPM 06/24/2014 01/19/2015 Inactive Vitamin D2 50,000 unit capsule RxNorm: 019814 1 Capsule(s) PO QW 05/27/2014 09/05/2014 Inactive once weekly x 12 weeks Vesicare 5 mg tablet RxNorm: 866730 1 Tablet(s) PO QHS 05/23/2014 05/22/2014 Inactive Vesicare 5 mg tablet RxNorm: 543787 1 Tablet(s) PO QHS 05/23/2014 09/15/2014 Inactive trazodone 50 mg tablet RxNorm: 251426 TAKE ONE TABLET BY MOUTH AT BEDTIME 05/13/2014 11/08/2014 Inactive trazodone 50 mg tablet RxNorm: 219530 TAKE ONE TABLET BY MOUTH AT BEDTIME 05/13/2014 11/08/2014 Inactive hydrochlorothiazide 25 mg tablet RxNorm: 679981 1 Tablet(s) PO QAM 04/18/2014 01/12/2015 Inactive Vitamin D2 50,000 unit capsule RxNorm: 374328 TAKE ONE CAPSULE BY MOUTH ONCE WEEKLY FOR 12 WEEKS 04/09/2014 05/14/2014 Inactive trazodone 50 mg tablet RxNorm: 086139 1 Tablet(s) PO QHS 02/22/2014 05/12/2014 Inactive trazodone 50 mg tablet RxNorm: 429674 1 Tablet(s) PO QHS 02/22/2014 02/21/2014 Inactive Vitamin D2 50,000 unit capsule RxNorm: 500470 TAKE ONE CAPSULE BY MOUTH ONCE WEEKLY FOR 12 WEEKS 02/07/2014 03/06/2014 Inactive meloxicam 15 mg tablet RxNorm: 800778 TAKE ONE TABLET BY MOUTH ONCE A DAY 02/07/2014 08/05/2014 Inactive meloxicam 15 mg tablet RxNorm: 732765 TAKE ONE TABLET BY MOUTH ONCE A DAY 02/07/2014 2014 Inactive clotrimazole 1 % topical cream RxNorm: 869782 1 Application TOP BID 12/25/2013 07/16/2015 Inactive Diflucan 150 mg tablet RxNorm: 184390 1 Tablet(s) PO daily 12/25/2013 12/31/2013 Inactive tamsulosin ER 0.4 mg capsule,extended release 24 hr RxNorm: 542516 1 Capsule(s) PO QPM 11/28/2013 06/23/2014 Inactive cyanocobalamin (vit B-12) 1,000 mcg/mL injection solution RxNorm: 543002 1 Milliliter(s) Inj 11/28/2013 12/12/2014 Inactive Vitamin B-12 1,000 mcg/mL injection solution RxNorm: 136969 1 Milliliter(s) Inj monthly 11/21/2013 02/13/2015 Inactive please give syringes for injections Vitamin D2 50,000 unit capsule RxNorm: 337651 1 Capsule(s) PO QW x 12 weeks 11/21/2013 02/06/2014 Inactive [SAVINGS FOR UNINSURED PATIENTS -- to take addtional 2000 units daily Vitamin B-12 1,000 mcg/mL injection solution RxNorm: 218309 1 Milliliter(s) Inj monthly 11/21/2013 11/20/2013 Inactive meloxicam 15 mg tablet RxNorm: 933420 1 Tablet(s) PO daily 11/20/2013 11/19/2013 Inactive [SAVINGS FOR UNINSURED PATIENTS -- BIN:[id number], PCN: [id number], Group: [id number], ID# [id number], Process claim through [employer] for questions: . THIS IS NOT INSURANCE.] meloxicam 15 mg tablet RxNorm: 806603 1 Tablet(s) PO daily 11/20/2013 02/06/2014 Inactive [SAVINGS FOR UNINSURED PATIENTS -- BIN:076629, PCN: [id number], Group: [id number], ID# [id number], Process claim through [employer] for questions: . THIS IS NOT INSURANCE.] meloxicam 15 mg tablet RxNorm: 764321 1 Tablet(s) PO daily 11/20/2013 11/19/2013 Inactive Voltaren 1 % topical gel RxNorm: 738677 4 Application TOP QID apply to back, affected joints four times daily 11/14/2013 11/20/2013 Inactive trazodone 50 mg tablet RxNorm: 203883 1 Tablet(s) PO QHS No Start Date Active Vitamin D2 50,000 unit capsule RxNorm: 128116 1 Capsule(s) PO QW No Start Date 05/26/2014 Inactive once weekly x 12 weeks Zithromax Z-Brian 250 mg tablet RxNorm: 153281 1 Tablet(s) PO UD No Start Date 02/06/2018 Inactive Vitamin D2 50,000 unit capsule RxNorm: 479253 1 Capsule(s) PO QW No Start Date 11/20/2013 Inactive gabapentin 300 mg capsule RxNorm: 353110 1 Capsule(s) PO TID No Start Date 03/28/2017 Inactive Vesicare 10 mg tablet RxNorm: 042550 1 Tablet(s) PO QHS No Start Date 03/14/2016 Inactive Toprol XL 25 mg tablet,extended release RxNorm: 648395 1 Tablet(s) PO daily No Start Date 04/19/2018 Inactive Vitamin D3 5,000 unit tablet RxNorm: 723992 1 Tablet(s) PO daily No Start Date 08/11/2015 Inactive Celebrex 200 mg capsule RxNorm: 645822 1 Capsule(s) PO BID No Start Date 07/19/2016 Inactive Imitrex 50 mg tablet RxNorm: 008619 1 Tablet(s) PO now and may repeat up to four times in 24 hours No Start Date 11/03/2014 Inactive Zofran 4 mg tablet RxNorm: 523283 1 Tablet(s) PO Q8 as needed nausea and vomitting No Start Date 10/15/2015 Inactive ranitidine 150 mg tablet RxNorm: 878677 1 Tablet(s) PO BID No Start Date 02/12/2018 Inactive Phenergan 25 mg tablet RxNorm: 801159 1 Tablet(s) PO now No Start Date 04/15/2015 Inactive Tums oral RxNorm: 634153 oral No Start Date 10/15/2015 Inactive Medication Administered Medication Codes Instructions Start Date Status Kenalog 40 mg/mL suspension for injection RxNorm: 8665209 1Milliliter 09/07/2017 No longer Active cyanocobalamin (vit B-12) 1,000 mcg/mL injection solution RxNorm: 808532 1Milliliter 11/28/2013 No longer Active Immunizations Vaccine [...] recently went to an eye doctor in [place]. Reports that he did have hemorrhaging in his right eye which is getting better. headache 04/18/2014 Pt states he recently went to an eye doctor in [place] shortness of breath 02/21/2014 blisters 12/25/2013 insomnia 11/28/2013 back pain 11/14/2013 Results Observation Observation Code Item Item Code Result Date Vitamin D 25 Oh [id number] VITAMIN D, 25 HYDROXY 66.80 ng/mL 03/14/2018 [...] 28.5 pg 03/14/2018 Cbc With Differential Ord2 [place]k% 7.6 % 03/14/2018 Cbc With Differential Ord2 [...] 1.28 K/ul 03/14/2018 Cbc With Differential Ord2 [place] ABS# 0.4 K/ul 03/14/2018 Cbc With Differential [...] Lipid Ord30 C/HDL 5.0 Ratio 06/27/2017 %Hba1C Fzu790 % HbA1c 88187- 6 6.2 % 06/27/2017 %Hba1C Elz924 Gluc Ave 131 mg/dL 06/27/2017 Comp Metabolic Zbq721 NA 140 mEq/L 06/27/2017 Comp Metabolic Bdn647 K 4.2 mEq/L 06/27/2017 Comp Metabolic Psd026 CL 100 mEq/L 06/27/2017 Comp Metabolic Qjg371 CO2 32.0 mEq/L 06/27/2017 Comp Metabolic Jci691 ANION GAP 12 06/27/2017 Comp Metabolic Rdr039 GLUCOSE 118 mg/dL 06/27/2017 Comp Metabolic Fbl995 Creat 1.0 mg/dL 06/27/2017 Comp Metabolic Zma162 eGFR 82 ml/min/1.73m2 06/27/2017 Comp Metabolic Jys170 BUN 26 mg/dL 06/27/2017 Comp Metabolic Knk408 B/C Ratio 27.1 Ratio 06/27/2017 Comp Metabolic Rwz761 CALCIUM 9.6 mg/dL 06/27/2017 Comp Metabolic Mlk446 ALK PHOS 46 U/L 06/27/2017 Comp Metabolic Etb306 AST(SGOT) 23 U/L 06/27/2017 Comp Metabolic Gim501 ALT(SGPT) 31 U/L 06/27/2017 Comp Metabolic Tze855 BILI T 0.5 mg/dL 06/27/2017 Comp Metabolic Fyb145 ALBUMIN 4.2 g/dL 06/27/2017 Comp Metabolic Cid591 TPRO 6.6 g/dL 06/27/2017 Comp Metabolic Gsw595 GLOB 2.4 g/dL 06/27/2017 Comp Metabolic Eoy549 A/G Ratio 1.7 Ratio 06/27/2017 Comp Metabolic Mtr035 Osmo 285 mOsmo 06/27/2017 Cbc With Differential [...] 29.0 pg 10/20/2016 Cbc With Differential Ord2 [place]% 9.0 % 10/20/2016 Cbc With Differential Ord2 [...] 1.33 K/ul 10/20/2016 Cbc With Differential Ord2 [place] ABS# 0.4 K/ul 10/20/2016 Cbc With Differential Ord2 Eos ABS# 0.2 K/ul 10/20/2016 Cbc With Differential Ord2 Baso ABS# 0.0 K/ul 10/20/2016 Comp Metabolic Xhz545 NA 143 mEq/L 10/20/2016 Comp Metabolic Flt608 K 4.6 mEq/L 10/20/2016 Comp Metabolic Ujt100 CL 104 mEq/L 10/20/2016 Comp Metabolic Sem933 CO2 31.0 mEq/L 10/20/2016 Comp Metabolic Ztg877 ANION GAP 13 10/20/2016 Comp Metabolic Oog009 GLUCOSE 117 mg/dL 10/20/2016 Comp Metabolic Lvn660 Creat 1.1 mg/dL 10/20/2016 Comp Metabolic Nxl991 eGFR 74 ml/min/1.73m2 10/20/2016 Comp Metabolic Akg627 BUN 27 mg/dL 10/20/2016 Comp Metabolic Fju815 B/C Ratio 25.7 Ratio 10/20/2016 Comp Metabolic Qay108 CALCIUM 9.3 mg/dL 10/20/2016 Comp Metabolic Wak162 ALK PHOS 47 U/L 10/20/2016 Comp Metabolic Ifc336 AST(SGOT) 18 U/L 10/20/2016 Comp Metabolic Ykz858 ALT(SGPT) 22 U/L 10/20/2016 Comp Metabolic Vfv808 BILI T 0.5 mg/dL 10/20/2016 Comp Metabolic Ksr250 ALBUMIN 3.9 g/dL 10/20/2016 Comp Metabolic Aow953 TPRO 6.5 g/dL 10/20/2016 Comp Metabolic Kvr030 GLOB 2.6 g/dL 10/20/2016 Comp Metabolic Trh506 A/G Ratio 1.5 Ratio 10/20/2016 Comp Metabolic Xvk396 Osmo 291 mOsmo 10/20/2016 Tsh Ord6 hTSH II 1.56 uIU/mL 10/20/2016 Lipid Ord30 CHOL 153 mg/dL 10/20/2016 Lipid Ord30 HDL 34.0 mg/dl 10/20/2016 Lipid Ord30 TRIG 123 mg/dL 10/20/2016 Lipid Ord30 LDL 94 mg/dL 10/20/2016 Lipid Ord30 C/HDL 4.5 Ratio 10/20/2016 B12 Cke036 B12 544.00 pg/ml 10/20/2016 Comp Metabolic Ssv093 NA 138 mEq/L 05/13/2016 Comp Metabolic Izn964 K 4.2 mEq/L 05/13/2016 Comp Metabolic Cii069 CL 102 mEq/L 05/13/2016 Comp Metabolic Rvt452 CO2 30.0 mEq/L 05/13/2016 Comp Metabolic Bzp691 ANION GAP 10 05/13/2016 Comp Metabolic Zgx257 GLUCOSE 113 mg/dL 05/13/2016 Comp Metabolic Cmu686 Creat 1.0 mg/dL 05/13/2016 Comp Metabolic Kli318 eGFR 77 ml/min/1.73m2 05/13/2016 Comp Metabolic Hjh267 BUN 26 mg/dL 05/13/2016 Comp Metabolic Vok528 B/C Ratio 25.5 Ratio 05/13/2016 Comp Metabolic Sxs088 CALCIUM 9.7 mg/dL 05/13/2016 Comp Metabolic Ymk429 ALK PHOS 51 U/L 05/13/2016 Comp Metabolic Zdo655 AST(SGOT) 17 U/L 05/13/2016 Comp Metabolic Ntp008 ALT(SGPT) 20 U/L 05/13/2016 Comp Metabolic Oib551 BILI T 0.6 mg/dL 05/13/2016 Comp Metabolic Uuw506 ALBUMIN 4.0 g/dL 05/13/2016 Comp Metabolic Ttm763 TPRO 6.6 g/dL 05/13/2016 Comp Metabolic Fcs186 GLOB 2.6 g/dL 05/13/2016 Comp Metabolic Oux273 A/G Ratio 1.6 Ratio 05/13/2016 Comp Metabolic Wpy841 Osmo 281 mOsmo 05/13/2016 Lipid Ord30 CHOL [...] 29.3 pg 02/11/2016 Cbc With Differential Ord2 [place]% 7.7 % 02/11/2016 Cbc With Differential Ord2 [...] 1.18 K/ul 02/11/2016 Cbc With Differential Ord2 [place] ABS# 0.4 K/ul 02/11/2016 Cbc With Differential Ord2 Eos ABS# 0.1 K/ul 02/11/2016 Cbc With Differential Ord2 Baso ABS# 0.0 K/ul 02/11/2016 Comp Metabolic Ogd436 NA 138 mEq/L 02/11/2016 Comp Metabolic Hkt470 K 4.0 mEq/L 02/11/2016 Comp Metabolic Mjm252 CL 97 mEq/L 02/11/2016 Comp Metabolic Uau851 CO2 32.0 mEq/L 02/11/2016 Comp Metabolic Alb925 ANION GAP 13 02/11/2016 Comp Metabolic Ygg558 GLUCOSE 117 mg/dL 02/11/2016 Comp Metabolic Lod005 Creat 1.0 mg/dL 02/11/2016 Comp Metabolic Mxq517 eGFR 81 ml/min/1.73m2 02/11/2016 Comp Metabolic Nso002 BUN 21 mg/dL 02/11/2016 Comp Metabolic Vbk457 B/C Ratio 21.4 Ratio 02/11/2016 Comp Metabolic Gaw476 CALCIUM 9.2 mg/dL 02/11/2016 Comp Metabolic Utv944 ALK PHOS 48 U/L 02/11/2016 Comp Metabolic Aph523 AST(SGOT) 18 U/L 02/11/2016 Comp Metabolic Tuu151 ALT(SGPT) 22 U/L 02/11/2016 Comp Metabolic Ymh646 BILI T 0.5 mg/dL 02/11/2016 Comp Metabolic Hrh863 ALBUMIN 3.9 g/dL 02/11/2016 Comp Metabolic Dgs805 TPRO 6.3 g/dL 02/11/2016 Comp Metabolic Drx116 GLOB 2.5 g/dL 02/11/2016 Comp Metabolic Dgi280 A/G Ratio 1.6 Ratio 02/11/2016 Comp Metabolic Aeb674 Osmo 280 mOsmo 02/11/2016 Lipid Ord30 CHOL 163 mg/dL 02/11/2016 Lipid Ord30 HDL 35.0 mg/dl 02/11/2016 Lipid Ord30 TRIG 200 mg/dL 02/11/2016 Lipid Ord30 LDL 88 mg/dL 02/11/2016 Lipid Ord30 C/HDL 4.7 Ratio 02/11/2016 %Hba1C Ext244 % HbA1c 86296- 6 6.5 % 02/11/2016 %Hba1C Zot416 Gluc Ave 140 mg/dL 02/11/2016 Tsh Ord6 hTSH II 2.07 uIU/mL 02/11/2016 B12 Mvo556 B12 563.00 pg/ml 02/11/2016 Culture Urine [id number] URINE CULTURE SEE NOTES 02/10/2016 Culture Urine [id number] Continued Results 02/10/2016 Urine Culture Ucult Complete [...] hours from collection if refrigerated) 11/04/2015 %Hba1C Mzz554 % HbA1c 77020- 6 6.4 % 04/16/2015 %Hba1C Inz404 Gluc Ave 137 mg/dL 04/16/2015 Tsh Ord6 hTSH II 3.33 uIU/mL 02/07/2015 Comp Metabolic Vqk357 NA 136 mEq/L 02/07/2015 Comp Metabolic Mdl660 K 3.9 mEq/L 02/07/2015 Comp Metabolic Xeb327 CL 98 mEq/L 02/07/2015 Comp Metabolic Pqy221 CO2 31.0 mEq/L 02/07/2015 Comp Metabolic Jdb536 ANION GAP 11 02/07/2015 Comp Metabolic Fwc199 GLUCOSE 139 mg/dL 02/07/2015 Comp Metabolic Mny195 Creat 0.9 mg/dL 02/07/2015 Comp Metabolic Edw810 eGFR 87 ml/min/1.73m2 02/07/2015 Comp Metabolic Oxe064 BUN 20 mg/dL 02/07/2015 Comp Metabolic Blq123 B/C Ratio 21.7 Ratio 02/07/2015 Comp Metabolic Mec765 CALCIUM 9.7 mg/dL 02/07/2015 Comp Metabolic Mge753 ALK PHOS 55 U/L 02/07/2015 Comp Metabolic Cuw520 AST(SGOT) 20 U/L 02/07/2015 Comp Metabolic Pka588 ALT(SGPT) 27 U/L 02/07/2015 Comp Metabolic Kns976 BILI T 0.5 mg/dL 02/07/2015 Comp Metabolic Wbu410 ALBUMIN 4.3 g/dL 02/07/2015 Comp Metabolic Pnk363 TPRO 6.9 g/dL 02/07/2015 Comp Metabolic Pup566 GLOB 2.6 g/dL 02/07/2015 Comp Metabolic Jtz331 A/G Ratio 1.7 Ratio 02/07/2015 Comp Metabolic Dix994 Osmo 277 mOsmo 02/07/2015 Cbc With Differential [...] Ord2 RDW 14.8 % 02/07/2015 A1C HPLC [id number] A1C HPLC 85654-1 6.0 % 05/23/2014 VIT B 12 [id number] VIT B 12 479 PG/ML 05/23/2014 VIT D TOTL 2655107 VIT D TOTL 29 NG/ML 05/23/2014 Review [...] stance 06/07/2017 None Full Exam - General 1995 Musculoskeletal gait and station Gait: unable to [...] deformity 11/14/2013 atrophy Full Exam - General 1995 Musculoskeletal [...] 4: G0439 12/27/2017 THER/PROPH/DIAG INJ SC/IM CPT-4: 79034 09/07/2017 TRIAMCINOLONE ACET INJ NOS CPT-4: J3301 09/07/2017 ROUTINE VENIPUNCTURE CPT- 4: 06074 05/23/2014 THER/PROPH/DIAG INJ SC/IM CPT-4: 37415 11/28/2013 VITAMIN B12 INJECTION CPT- 4: J3420 11/28/2013 Vital Signs Date Vital 06/27/2018 Blood Pressure 1: 124/70 Code: 8480-6 BMI: 36.6 Code: 17197-9 Heart Rate 1: 64 bpm Height: 6' SpO2: 96% Weight: 270 lbs 04/20/2018 Blood Pressure 1: 126/74 Code: 8480-6 BMI: 36.6 Code: 64418-5 Heart Rate 1: 60 bpm Height: 6' SpO2: 94% Weight: 270 lbs 03/21/2018 Blood Pressure 1: 138/74 Code: 8480-6 BMI: 36.8 Code: 86388-3 Heart Rate 1: 81 bpm Height: 6' SpO2: 98% Weight: 271 lbs 02/08/2018 Blood Pressure 1: 132/74 Code: 8480-6 BMI: 37.0 Code: 34543-9 Heart Rate 1: 82 bpm Height: 6' SpO2: 97% Weight: 273 lbs 12/27/2017 Blood Pressure 1: 148/78 Code: 8480-6 BMI: 36.3 Code: 94117-6 Heart Rate 1: 78 bpm Height: 6' SpO2: 93% Waist Measure (cm): 117 cm Weight: 268 lbs 12/06/2017 Blood Pressure 1: 122/70 Code: 8480-6 BMI: 36.6 Code: 29130-9 Heart Rate 1: 76 bpm Height: 6' SpO2: 93% Weight: 270 lbs 11/01/2017 BMI: 36.9 Code: 01874-5 Height: 6' Weight: 272 lbs 09/07/2017 Blood Pressure 1: 140/78 Code: 8480-6 BMI: 35.8 Code: 76471-6 Heart Rate 1: 76 bpm Height: 6' SpO2: 98% Weight: 264 lbs 06/07/2017 Blood Pressure 1: 138/86 Code: 8480-6 BMI: 36.3 Code: 38983-5 Heart Rate 1: 66 bpm Height: 6' SpO2: 95% Weight: 268 lbs 05/19/2017 Blood Pressure 1: 152/84 Code: 8480-6 BMI: 36.8 Code: 28495-8 Heart Rate 1: 70 bpm Height: 6' SpO2: 93% Weight: 271 lbs 05/09/2017 Blood Pressure 1: 138/76 Code: 8480-6 BMI: 36.6 Code: 38892-8 Heart Rate 1: 79 bpm Height: 6' SpO2: 93% Weight: 270 lbs 04/25/2017 Blood Pressure 1: 150/80 Code: 8480-6 Heart Rate 1: 58 bpm Height: SpO2: 94% Weight: 2017 Blood Pressure 1: 138/80 Code: 8480-6 BMI: 36.5 Code: 49297-7 Heart Rate 1: 76 bpm Height: 6' SpO2: 96% Weight: 269 lbs 03/29/2017 Blood Pressure 1: 118/68 Code: 8480-6 BMI: 36.9 Code: 74615-2 Heart Rate 1: 61 bpm Height: 6' SpO2: 95% Weight: 272 lbs 03/17/2017 Blood Pressure 1: 140/78 Code: 8480-6 BMI: 36.8 Code: 65183-1 Heart Rate 1: 91 bpm Height: 6' SpO2: 93% Weight: 271 lbs 03/08/2017 Blood Pressure 1: 152/84 Code: 8480-6 BMI: 36.8 Code: 09407-4 Heart Rate 1: 72 bpm Height: 6' SpO2: 92% Temperature: 36.6 (C) / 97.8 (F) Weight: 271 lbs 02/17/2017 Blood Pressure 1: 110/64 Code: 8480-6 BMI: 36.5 Code: 04746-9 Heart Rate 1: 62 bpm Height: 6' SpO2: 96% Weight: 269 lbs 01/18/2017 Blood Pressure 1: 140/80 Code: 8480-6 BMI: 36.5 Code: 16216-8 Heart Rate 1: 62 bpm Height: 6' SpO2: 94% Weight: 269 lbs 10/19/2016 Blood Pressure 1: 120/80 Code: 8480-6 BMI: 35.9 Code: 77915-3 Heart Rate 1: 64 bpm Height: 6' SpO2: 97% Weight: 265 lbs 08/17/2016 Blood Pressure 1: 112/76 Code: 8480-6 BMI: 36.1 Code: 25540-4 Heart Rate 1: 65 bpm Height: 6' SpO2: 97% Weight: 266 lbs 07/20/2016 Blood Pressure 1: 126/78 Code: 8480-6 BMI: 35.5 Code: 15896-9 Heart Rate 1: 60 bpm Height: 6' SpO2: 95% Weight: 262 lbs 04/19/2016 Blood Pressure 1: 132/78 Code: 8480-6 BMI: 35.1 Code: 20855-7 Heart Rate 1: 65 bpm Height: 6' SpO2: 98% Weight: 259 lbs 01/19/2016 Blood Pressure 1: 140/64 Code: 8480-6 BMI: 34.4 Code: 39127-2 Heart Rate 1: 61 bpm Height: 6' SpO2: 97% Weight: 254 lbs 10/16/2015 Blood Pressure 1: 108/66 Code: 8480-6 BMI: 35.3 Code: 62546-3 Heart Rate 1: 65 bpm Height: 6' SpO2: 96% Weight: 260 lbs 07/17/2015 Blood Pressure 1: 136/74 Code: 8480-6 BMI: 35.8 Code: 64475-4 Heart Rate 1: 59 bpm Height: 6' SpO2: 97% Weight: 263 lbs 13 07/03/2015 Weight: 265 lbs 04/16/2015 Blood Pressure 1: 130/82 Code: 8480-6 BMI: 36.1 Code: 50934-9 Heart Rate 1: 7694 bpm Height: 6' SpO2: 94% Weight: 266 lbs 02/19/2015 Blood Pressure 1: 160/90 Code: 8480-6 BMI: 35.8 Code: 75908-5 Heart Rate 1: 78 bpm Height: 6' SpO2: 94% Weight: 264 lbs 11/20/2014 Blood Pressure 1: 140/96 Code: 8480-6 BMI: 34.6 Code: 26843-7 Heart Rate 1: 92 bpm Height: 6' SpO2: 95% Weight: 255 lbs 11/05/2014 Blood Pressure 1: 132/70 Code: 8480-6 BMI: 34.6 Code: 60430-7 Heart Rate 1: 96 bpm Height: 6' SpO2: 98% Weight: 255 lbs 09/19/2014 Blood Pressure 1: 152/86 Code: 8480-6 BMI: 35.8 Code: 80146-3 Heart Rate 1: 82 bpm Height: 6' SpO2: 95% Weight: 264 lbs 07/24/2014 Blood Pressure 1: 142/82 Code: 8480-6 BMI: 34.7 Code: 08735-0 Heart Rate 1: 72 bpm Height: 6' Weight: 256 lbs 05/23/2014 Blood Pressure 1: 150/82 Code: 8480-6 BMI: 33.4 Code: 62925-2 Heart Rate 1: 68 bpm Height: 6' Weight: 246 lbs 04/18/2014 Blood Pressure 1: 132/84 Code: 8480-6 BMI: 33.2 Code: 19750-2 Heart Rate 1: 80 bpm Height: 6' Weight: 245 lbs 02/21/2014 Blood Pressure 1: 138/82 Code: 8480-6 BMI: 32.4 Code: 89124-1 Heart Rate 1: 85 bpm Height: 6' SpO2: 98% Weight: 239 lbs 12/25/2013 Blood Pressure 1: 146/80 Code: 8480-6 BMI: 30.5 Code: 85424-5 Heart Rate 1: 100 bpm Height: 6' Weight: 225 lbs 11/28/2013 Blood Pressure 1: 120/64 Code: 8480-6 BMI: 30.4 Code: 34437-1 Heart Rate 1: 68 bpm Height: 6' Weight: 224 lbs 11/14/2013 Blood Pressure 1: 124/80 Code: 8480-6 BMI: 30.0 Code: 16372-9 Heart Rate 1: 76 bpm Height: 6' [...] Maxitrol and Polytrim seeing eye dr in [place]. Reports eye still feels irritated. headache Quality [...] and tinea capitis[ICD10: B35.0] Glory Long MD, [facility] CPT-4: 92684 06/27/2018 ([id number]) 53969 EST. 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 PATIENT, LEVEL III Diagnosis: Acute bronchitis due to other specified organisms[ICD10: J20.8] Antoinette Long MD, [facility] CPT-4: 20181 02/08/2018 ([id number]) 87670 EST. 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 PATIENT, LEVEL III Diagnosis: Essential (primary) hypertension[ICD10: I10] Diagnosis: Localized edema[ICD10: R60.0] Diagnosis: Cellulitis of left lower limb[ICD10: L03.116] Quyen Long MD [facility] CPT-4: 63293 06/07/2017 ([id number]) 14897 EST. 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 PATIENT, LEVEL II Diagnosis: Rash and other nonspecific skin eruption[ICD10: R21] Glory Long MD [facility] CPT-4: 63327 05/09/2017 ([id number]) 99781 EST. PATIENT, LEVEL II Diagnosis: Rash and other nonspecific skin eruption[ICD10: R21] Glory Long MD [facility] CPT-4: 69014 04/25/2017 ([id number]) 97105 EST. PATIENT, LEVEL III Diagnosis: Cellulitis of left lower limb[ICD10: L03.116] Diagnosis: Rash and other nonspecific skin eruption[ICD10: R21] Glory Long MD [facility] CPT-4: 48481 2017 ([id number]) 72760 EST. PATIENT, LEVEL III Diagnosis: Cellulitis of left lower limb[ICD10: L03.116] Diagnosis: Rash and other nonspecific skin eruption[ICD10: R21] Glory Long MD, [facility] CPT-4: 42278 03/29/2017 91579 EST. PATIENT, LEVEL IV Diagnosis: Cellulitis of left lower limb[ICD10: L03.116] Antoinette Long MD, [facility] CPT-4: 92767 03/17/2017 ([id number]) 29750 EST. PATIENT, LEVEL III Diagnosis: Rash and other nonspecific skin eruption[ICD10: R21] Glory Long MD, [facility] CPT-4: 15693 03/08/2017 71171 EST. PATIENT, LEVEL IV Diagnosis: Essential (primary) hypertension[ICD10: I10] Diagnosis: Muscle weakness (generalized)[ICD10: M62.81] Diagnosis: Body mass index (BMI) 36.0-36.9, adult[ICD10: Z68.36] Diagnosis: Family history of ischemic heart disease and other diseases of the circulatory system[ICD10: Z82.49] Antoinette Logn MD, [facility] CPT-4: 41965 02/17/2017 ([id number]) 66023 EST. PATIENT, LEVEL IV Diagnosis: Essential (primary) hypertension[ICD10: I10] Diagnosis: Muscle weakness (generalized)[ICD10: M62.81] Quyen Long MD, [facility] CPT-4: 31983 01/18/2017 ([id number]) 73839 EST. 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 PATIENT, LEVEL III Diagnosis: Pain in left shoulder[ICD10: M25.512] Diagnosis: Rash and other nonspecific skin eruption[ICD10: R21] Glory Long MD, [facility] CPT-4: 41727 08/17/2016 ([id number]) 78666 EST. PATIENT, LEVEL IV Diagnosis: Essential (primary) hypertension[ICD10: I10] Diagnosis: Pain in left shoulder[ICD10: M25.512] Quyen Long MD, [facility] CPT-4: 27284 07/20/2016 ([id number]) 74046 EST. 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 PATIENT, LEVEL IV Diagnosis: Essential (primary) hypertension[ICD10: I10] Diagnosis: Other abnormal glucose[ICD10: R73.09] Diagnosis: Gastro-esophageal reflux disease without esophagitis[ICD10: K21.9] Diagnosis: Obesity, unspecified[ICD10: E66.9] Quyen Long MD [facility] CPT- 4: 34229 04/16/2015 ([id number]) 75138 EST. PATIENT, LEVEL IV Diagnosis: ESSENTIAL HYPERTENSION[ICD9: 401.9] Diagnosis: OBESITY[ICD9: 278.00] Diagnosis: Post-polio limb muscle weakness[ICD9: 728.87] Quyen Long MD [facility] CPT-4: 84078 02/19/2015 ([id number]) 82687 EST. PATIENT, LEVEL IV Diagnosis: Shingles outbreak[ICD9: 053.9] Diagnosis: ESSENTIAL HYPERTENSION[ICD9: 401.9] Diagnosis: Earache[ICD9: 388.70] Quyen Long MD [facility] CPT-4: 15003 11/20/2014 ([id number]) 25315 EST. PATIENT, LEVEL III Diagnosis: Shingles outbreak[ICD9: 053.9] Diagnosis: Face pain[ICD9: 784.0] Diagnosis: Pain, eye, right[ICD9: 379.91] Quyen Long MD, [facility] CPT-4: 80735 11/05/2014 ([id number]) 15068 EST. PATIENT, LEVEL V Diagnosis: Post-polio limb muscle weakness[ICD9: 728.87] Diagnosis: Post-polio syndrome[ICD9: 138] Diagnosis: Leg weakness[ICD9: 729.89] Diagnosis: Weakness[ICD9: 780.79] Diagnosis: Foot drop[ICD9: 736.79] Quyen Long MD [facility] CPT-4: 50193 09/19/2014 ([id number]) 90441 EST. PATIENT, LEVEL IV Diagnosis: ESSENTIAL HYPERTENSION[ICD9: 401.9] Diagnosis: Carotid bruit[ICD9: 785.9] Diagnosis: Seborrheic dermatitis[ICD9: 690.10] Diagnosis: Post-polio syndrome[ICD9: 138] Diagnosis: Vitamin D deficiency[ICD9: 268.9] Quyen Long MD [facility] CPT- 4: 70937 07/24/2014 ([id number]) 95876 EST. PATIENT, LEVEL IV Diagnosis: Neck pain[ICD9: 723.1] Diagnosis: Post-polio syndrome[ICD9: 138] Diagnosis: Vitamin D deficiency[ICD9: 268.9] Diagnosis: Vitamin B12 deficiency[ICD9: 266.2] Diagnosis: Nocturia[ICD9: 788.43] Diagnosis: Leg weakness[ICD9: 729.89] Diagnosis: Elevated blood sugar[ICD9: 790.29] Glory Long MD, [facility] CPT- 4: 59953 05/23/2014 ([id number]) 14775 EST. PATIENT, LEVEL IV Diagnosis: ESSENTIAL HYPERTENSION[ICD9: 401.9] Diagnosis: HEADACHE[ICD9: 784.0] Diagnosis: EDEMA[ICD9: 782.3] Quyen Long MD, [facility] CPT-4: 08554 04/18/2014 81212 EST. PATIENT, LEVEL IV Diagnosis: Insomnia[ICD9: 780.52] Diagnosis: Post-polio syndrome[ICD9: 138] Diagnosis: Vitamin D deficiency[ICD9: 268.9] Diagnosis: Nocturnal hypoxemia[ICD9: 799.02] Glory Long MD, [facility] CPT- 4: 10846 02/21/2014 ([id number]) 23180 EST. PATIENT, LEVEL III Diagnosis: Tinea pedis[ICD9: 110.4] Diagnosis: Post-polio limb muscle weakness[ICD9: 728.87] Glory Long MD, [facility] CPT-4: 26348 12/25/2013 ([id number]) 58610 EST. PATIENT, LEVEL IV Diagnosis: Insomnia[ICD9: 780.52] Diagnosis: Vitamin B12 deficiency (dietary) anemia[ICD9: 281.1] Diagnosis: VITAMIN D DEFICIENCY[ICD9: 268.9] Diagnosis: Weakness[ICD9: 780.79] Quyen Long MD, [facility] CPT-4: 89041 11/28/2013 ([id number]) OFFICE/OUTPATIENT VISIT NEW Diagnosis: Post-polio limb muscle weakness[ICD9: 728.87] Diagnosis: Post-polio syndrome[ICD9: 138] Diagnosis: Insomnia[ICD9: 780.52] Diagnosis: Arrhythmia[ICD9: 427.9] Quyen Long MD, [facility] CPT-4: 33738 11/14/2013 Plan of Care Planned Activity Notes Codes Status Date Visit Plan: Tinrebecca medina -rx for ketoconazole written and instructed patient on use -instructed patient to call or return to clinic if symptoms do not resolve or if any worse. Patient verbalized understanding of plan. 06/27/2018 Patient Education: Patient Medication Summary Completed [...] his shoulder. 04/20/2018 Appointment: Quyen Long WPtel: [phone] [facility] (15 min) Moderate 04/20/2018 Patient Education: Patient Medication Summary Completed 04/20/2018 Patient Education: Hypertension Completed 04/20/2018 Appointment: Quyen Long WPtel: [facility] (15 min) Moderate 04/11/2018 Visit Plan: Post polio syndrome -right leg weakness -patient needs repair and adjustment of his right leg brace that helps with his symptoms of instability and weakness and allows him to ambulate -will send rx to [facility] 03/21/2018 Appointment: Glory Dalton WPtel: [phone] [phone] [place] (15 min) Moderate 03/21/2018 Patient Education: [...] worsen. 02/08/2018 Appointment: Antoinette Arndt WPtel: [phone] [facility] (30 min) Complex 02/08/2018 Patient Education: Patient [...] Completed 12/27/2017 [phone] ([facility]) Moderate 12/08/2017 Visit Plan: [...] Wilson's office to get an appt with zafuta for shoulder injection. 12/06/2017 Visit Plan: Hypertension [...] Wilson's office to get an appt with zafuta for shoulder injection. 12/06/2017 App[facility]ment: [phone] (15 min) Moderate 12/06/2017 Patient Education: Patient [...] weight check. 09/07/2017 App[facility]ment: [phone] (15 min) Moderate 09/07/2017 Patient Education: Patient [...] leg. 06/07/2017 Appointment: Quyen Long WPtel: [facility] (15 min) Moderate 06/07/2017 Patient Education: Patient [...] recommended. 05/19/2017 Appointment: Quyen Long WPtel: [facility] (15 min) Moderate 05/19/2017 Patient Education: Patient Medication Summary Completed 05/19/2017 Patient Education: Obesity Completed 05/19/2017 Patient Education: Hypertension Completed 05/19/2017 Visit Plan: Rash-left axhm-ucvwevfv-oxieynaeuo patient to continue using ketoconazole plus betamethasone equal parts and increase to TID-leave foot open to air as much as possible-follow up in 2 weeks, sooner if needed. 05/09/2017 Appointment: Glory Dalton WPtel: [facility]5 [phone] [place] (30 min) Complex 05/09/2017 Patient Education: Patient Medication Summary Completed 05/09/2017 Patient Education: Obesity Completed 05/09/2017 Visit Plan: Rash-left foot-Dr Long in to evaluate rash-instructed patient to start using ketoconazole plus betamethasone equal parts TID -follow up in 2 weeks, sooner if needed. 04/25/2017 Appointment: Glory Dalton WPtel: [facility]9 [phone] [place] (30 min) Complex 04/25/2017 Patient Education: Patient Medication Summary Completed 04/25/2017 Visit Plan: Cellulitis of left foot-no longer draining-no open areas-no excoriation-slightly red-okay to d/c all treatments-keep clean and monitor-call if redness does not resolve Rash-resolved 2017 Appointment: Glory Dalton WPtel: [facility]5 [phone] (30 min) Complex 2017 Patient Education: Patient Medication Summary Completed 2017 Patient Education: Obesity Completed 2017 Visit Plan: Cellulitis-left foot-MSSA mcdpgdmk-vdwbcrrdi-jbflk air in the evening-continue bactroban ointment twice daily-stop using alcohol on foot-no papertowels or abrasives to foot Yunz-etmt-ns for betamethasone provided and instructed on use 03/29/2017 Appointment: Glory Dalton WPtel: [facility]3 [phone] [place] (30 min) Complex 03/29/2017 Patient Education: Patient Medication Summary Completed 03/29/2017 Patient Education: Obesity Completed 03/29/2017 Appointment: Glory Dalton WPtel: [facility]5 [phone] [place] (30 min) Complex 03/22/2017 Visit Plan: [...] discharge. 03/17/2017 Appointment: Antoinette Arndt WPtel: [facility]9 [facility] [place] (30 min) Complex 03/17/2017 Patient Education: [...] the break. 01/18/2017 Appointment: Quyen Long WPtel: [address] [place], [place] [address] (15 min) Moderate 01/18/2017 Patient Education: Patient [...] weakness. 10/19/2016 Appointment: Quyen Long WPtel: [phone] [facility] (15 min) Moderate 10/19/2016 Patient Education: Patient Medication Summary Completed 10/19/2016 Patient Education: Obesity Completed 10/19/2016 Visit Plan: Left shoulder pain-hospital f/u recent shoulder surgery with Dr Wilson-doing well-sees Dr Wilson this afternoon for suture removal-pain improved Maxc-kuju-jmbuxld fungal infection-will treat with ket oconazole -follow up in 2 weeks 08/17/2016 Appointment: Glory Dalton WPtel: [facility]9 [phone] [place] (30 min) Complex 08/17/2016 Patient Education: [...] when ambulating. 07/20/2016 Appointment: Quyen Long WPtel: [phone] [facility] (15 min) Moderate 07/20/2016 Patient Education: Patient [...] for strengthening. 04/19/2016 Appointment: [phone] (15 min) Moderate 04/19/2016 Patient Education: [...] up appointment. 01/19/2016 Appointment: [phone] (15 min) Moderate 01/19/2016 Patient Education: Patient Medication Summary Completed 01/19/2016 Patient Education: Obesity Completed 01/19/2016 Patient Education: Hypertension Completed 01/19/2016 Referral: Dr Mccauley Referral Completed 11/11/2015 Care Plan: Referral Order SNOMED-CT : [id number] Pending 11/03/2015 Visit Plan: Hypertension - well [...] with injection 10/16/2015 Appointment: Quyen Long WPtel: [facility] (15 min) Moderate 10/16/2015 Patient Education: [...] - 02/19/2015 Appointment: Quyen Long WPtel: [phone] [facility] (15 min) Moderate 02/19/2015 Patient Education: Patient [...] drops. 11/20/2014 Appointment: Quyen Long WPtel: [phone] [facility] Follow up 11/20/2014 Patient Education: Patient Medication [...] ESME. 11/05/2014 Appointment: Quyen Long WPtel: [phone] [facility] (15 min) Moderate 11/05/2014 Patient Education: Patient [...] and foot. 09/19/2014 Appointment: Quyen Long WPtel: [address] [place], [place] [address] Follow up 09/19/2014 Patient Education: Patient Medication [...] deficiency - recommended repeat of vitamin d [id number] weekly x 12 weeks and increase vitamin d to 5000 units daily. 07/24/2014 Appointment: Quyen Long WPtel: [facility]5 [facility] Follow up 07/24/2014 Patient Education: Patient Medication [...] B12 level 05/23/2014 Appointment: Glory Dalton WPtel: [facility]5 [phone] Follow up 05/23/2014 Patient Education: Patient Medication Summary Completed 05/23/2014 Patient Education: .Cervicalgia Neck Pain Completed 05/23/2014 Appointment: Quyen Long WPtel: [phone] [facility] Follow up 05/22/2014 Visit Plan: Edema - [...] at home. 04/18/2014 Appointment: Quyen Long WPtel: [phone] [facility] Follow up 04/18/2014 Patient Education: Patient Medication Summary Completed 04/18/2014 Patient Education: Hypertension Completed 04/18/2014 Appointment: EthanSusany [phone] [place] Follow up 02/27/2014 Visit Plan: Insomnia - Pt has been advised to increase the light in the house during the day, and start dimming the lights during the evening hours. Pt has been advised to cut out caffeine after 5pm. Daytime napping worsens night time insomnia. START TRAZODONE AND MONITOR SYMPTOMS. Vitamin D lesbwtfdav-askvvhuc-zqgdhcek vitamin D 50,000 units weekly for 12 additional weeks. Hypoxemia-continue night time oxygen 02/21/2014 Appointment: [phone] Follow up 02/21/2014 Patient Education: Patient [...] on mobic. 11/28/2013 Appointment: Quyen Long WPtel: [id number] [facility] 11/28/2013 Patient Education: Patient [...] study. 11/14/2013 Appointment: Quyen Long WPtel: [id number] [id number] New [facility] 11/14/2013 Patient Education: Patient Medication Summary Completed 11/14/2013 Referral: Dr Mccauley Referral Appointment Requested Instructions Comment . Rash-left ggyw-dpayxhto-aumqeadekn patient to continue using ketoconazole plus betamethasone [...] up in 10 days . Cellulitis-left foot-MSSA ivhcxivc-knpznrdeg-xqdww air in the evening-continue bactroban ointment twice daily-stop using alcohol on foot-no papertowels or abrasives to foot Mhyt-nreq-cd for betamethasone provided and instructed on use [...] START TRAZODONE AND MONITOR SYMPTOMS. Vitamin D mcykutskbm-uhqokenm-vsblkklv vitamin D 50,000 units weekly for 12 [...] deficiency - recommended repeat of vitamin d [id number] weekly x 12 weeks and increase vitamin [...] Wilson this afternoon for suture removal-pain improved Qkya-jfjo-wzoloqm fungal infection-will treat with ketoconazole -follow up [...] him to ambulate -will send rx to [facility]
--- OUTSIDE RECORDS SUMMARY | 2018-11-10 16:13 | XMS REPORT | CCD ---
Author Author Quyen Long Organization Quyen Long MD, [facility] Address [address] [place] [address] Phone Care Team Providers Care Health Sciences Manager Name Role Phone PP Unavailable CCM Unavailable Summary Purpose Interface Exchange Insurance Providers Payer name Policy type / Coverage type Covered constitution party ID Effective Begin Date Effective End Date WPS Medicare Part B Medicare Part B [id number] 2017 Unknown [facility] Medicare Part B [id number] 2017 Unknown Family history Grandmother Diagnosis Age [...] Description Effective Dates Tobacco history SNOMED CT: 3373620 Former smoker 1.5 pack daily x 45 years 12/27/2017 Marital status Unknown 10/19/2016 Living arrangements Unknown Assisted Living [facility] 04/19/2016 Number of children Unknown 1 son - lives in [place] 11/14/2013 Employment Unknown 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 phone or fax) Vitamin B-12 1,000 mcg/mL injection solution RxNorm: 208956 Milliliter(s) INJECT 1ML MONTHLY 06/15/2018 06/18/2018 Inactive Zithromax Z-Brian 250 mg tablet RxNorm: 395845 1 Tablet(s) PO UD 06/14/2018 No Stop Date Active zpack as directed x1 tamsulosin 0.4 mg capsule RxNorm: 310350 TAKE ONE CAPSULE BY MOUTH EVERY EVENING 06/12/2018 01/07/2019 Active gabapentin 300 mg capsule RxNorm: 673988 TAKE ONE CAPSULE BY MOUTH TWICE A DAY 05/31/2018 09/27/2018 Active losartan 50 mg tablet RxNorm: 812372 TAKE ONE TABLET BY MOUTH DAILY 05/01/2018 09/27/2018 Active Toprol XL 50 mg tablet,extended release RxNorm: 655699 1 Tablet(s) PO daily 04/20/2018 No Stop Date Active Vitamin D3 5,000 unit tablet RxNorm: 612310 TAKE ONE TABLET BY MOUTH DAILY 04/05/2018 02/28/2019 Active trazodone 50 mg tablet RxNorm: 811174 TAKE ONE TABLET BY MOUTH AT BEDTIME 02/27/2018 07/26/2018 Active ranitidine 150 mg tablet RxNorm: 486271 1 Tablet(s) PO BID 02/13/2018 02/07/2019 Active hydrochlorothiazide 25 mg tablet RxNorm: 164613 TAKE ONE TABLET BY MOUTH DAILY 02/13/2018 11/09/2018 Active albuterol sulfate 2.5 mg/3 mL (0.083 %) solution for nebulization RxNorm: 472038 3 Milliliter(s) INH UD 02/08/2018 No Stop Date Active please deliver all of his prescriptions thank you cefdinir 300 mg capsule RxNorm: 194953 1 Capsule(s) PO BID 02/08/2018 02/17/2018 Inactive prednisone 20 mg tablet RxNorm: 226818 2 Tablet(s) PO daily 02/08/2018 02/12/2018 Inactive fluticasone 50 mcg/actuation nasal spray,suspension RxNorm: 1212350 1 [place] NASAL BID 02/07/2018 06/06/2018 Inactive fluticasone 50 mcg/actuation nasal spray,suspension RxNorm: 7004585 1 [place] NASAL BID 02/07/2018 02/06/2018 Inactive Zithromax Z-Brian 250 mg tablet RxNorm: 694999 1 Tablet(s) PO UD 02/07/2018 03/14/2018 Inactive zpack as directed tamsulosin 0.4 mg capsule RxNorm: 238370 TAKE ONE CAPSULE BY MOUTH EVERY EVENING 01/13/2018 06/11/2018 Inactive cetirizine 10 mg tablet RxNorm: 8852661 TAKE ONE TABLET BY MOUTH EVERY NIGHT AT BEDTIME 01/02/2018 04/01/2018 Inactive Vitamin D3 5,000 unit tablet RxNorm: 952442 TAKE ONE TABLET BY MOUTH DAILY 01/02/2018 04/04/2018 Inactive cetirizine 10 mg tablet RxNorm: 1041959 1 Tablet(s) PO QHS 12/26/2017 01/01/2018 Inactive cetirizine 10 mg tablet RxNorm: 1877445 1 Tablet(s) PO QHS 12/26/2017 12/25/2017 Inactive losartan 50 mg tablet RxNorm: 465219 TAKE ONE TABLET BY MOUTH DAILY (STARTING 09-09-2017) 09/29/2017 03/27/2018 Inactive Request already responded to by other means (e.g. phone or fax) losartan 50 mg tablet RxNorm: 652155 1 Tablet(s) PO daily 09/27/2017 09/26/2017 Inactive losartan 50 mg tablet RxNorm: 322192 1 Tablet(s) PO daily 09/27/2017 09/28/2017 Inactive Bactrim DS 800 mg-160 mg tablet RxNorm: 662564 1 Tablet(s) PO BID 09/13/2017 09/19/2017 Inactive Kenalog 40 mg/mL suspension for injection RxNorm: 1746363 1 Milliliter(s) Inj 09/07/2017 09/07/2017 Inactive trazodone 50 mg tablet RxNorm: 909407 TAKE ONE TABLET BY MOUTH AT BEDTIME 08/16/2017 02/11/2018 Inactive gabapentin 300 mg capsule RxNorm: 295634 1 Capsule(s) PO BID 08/03/2017 01/29/2018 Inactive Vitamin D3 5,000 unit tablet RxNorm: 089337 TAKE ONE TABLET BY MOUTH DAILY 08/01/2017 12/28/2017 Inactive ketoconazole 2 % topical cream RxNorm: 992524 APPLY TO AFFECTED AREA(S) TWO TIMES A DAY 05/31/2017 06/29/2017 Inactive hydrochlorothiazide 25 mg tablet RxNorm: 624974 TAKE ONE TABLET BY MOUTH DAILY 05/16/2017 02/09/2018 Inactive lisinopril 20 mg tablet RxNorm: 616056 TAKE ONE TABLET BY MOUTH DAILY 05/16/2017 09/06/2017 Inactive ketoconazole 2 % topical cream RxNorm: 208438 1 Application TOP BID 03/29/2017 04/11/2017 Inactive apply to [facility]ice-deliver to [facility] please betamethasone dipropionate 0.05 % topical ointment RxNorm: 526982 1 Application TOP BID 03/29/2017 04/11/2017 Inactive apply to arm/chests for itching gabapentin 300 mg capsule RxNorm: 392983 1 Capsule(s) PO BID 03/29/2017 08/02/2017 Inactive trazodone 50 mg tablet RxNorm: 361950 TAKE ONE TABLET BY MOUTH AT BEDTIME 03/28/2017 08/15/2017 Inactive Vesicare 10 mg tablet RxNorm: 216114 TAKE ONE TABLET BY MOUTH EVERY NIGHT AT BEDTIME 03/21/2017 12/26/2017 Inactive Vesicare 10 mg tablet RxNorm: 931230 TAKE ONE TABLET BY MOUTH EVERY NIGHT AT BEDTIME 03/21/2017 06/06/2017 Inactive doxycycline hyclate 100 mg capsule RxNorm: 9247145 1 Capsule(s) PO BID 03/18/2017 03/27/2017 Inactive mupirocin 2 % topical ointment RxNorm: 668556 1 Application TOP BID 03/17/2017 No Stop Date Active doxycycline hyclate 100 mg tablet RxNorm: 124394 1 Tablet(s) PO BID 03/09/2017 03/15/2017 Inactive Take probiotic BID while on ABT doxycycline hyclate 100 mg tablet RxNorm: 920756 1 Tablet(s) PO BID 03/09/2017 03/08/2017 Inactive Take probiotic BID while on ABT meloxicam 15 mg tablet RxNorm: 023318 TAKE ONE TABLET BY MOUTH DAILY 02/10/2017 12/06/2017 Inactive Vitamin D3 5,000 unit tablet RxNorm: 716342 TAKE ONE TABLET BY MOUTH DAILY 02/08/2017 07/31/2017 Inactive Vitamin B-12 1,000 mcg/mL injection solution RxNorm: 338932 INJECT 1ML MONTHLY 01/24/2017 07/22/2017 Inactive lisinopril 20 mg tablet RxNorm: 928696 TAKE ONE TABLET BY MOUTH DAILY 12/13/2016 04/11/2017 Inactive trazodone 50 mg tablet RxNorm: 539887 TAKE ONE TABLET BY MOUTH AT BEDTIME 09/24/2016 03/22/2017 Inactive Vitamin D3 5,000 unit tablet RxNorm: 446549 TAKE ONE TABLET BY MOUTH DAILY 09/20/2016 02/07/2017 Inactive lisinopril 20 mg tablet RxNorm: 413534 TAKE ONE TABLET BY MOUTH DAILY 09/13/2016 12/12/2016 Inactive ketoconazole 2 % topical cream RxNorm: 996780 1 Application TOP BID 08/17/2016 08/30/2016 Inactive deliver to [facility] Pepcid 20 mg tablet RxNorm: 145919 TAKE ONE TABLET BY MOUTH TWICE A DAY 07/12/2016 12/26/2017 Inactive omega-3 acid ethyl esters 1 gram capsule RxNorm: 064013 3 Capsule(s) PO daily 06/18/2016 12/14/2016 Inactive omega-3 acid ethyl esters 1 gram capsule RxNorm: 635046 3 Capsule(s) PO daily 06/18/2016 06/17/2016 Inactive trazodone 50 mg tablet RxNorm: 830381 TAKE ONE TABLET BY MOUTH AT BEDTIME 06/08/2016 08/06/2016 Inactive tamsulosin 0.4 mg capsule RxNorm: 298177 Capsule(s) TAKE ONE CAPSULE BY MOUTH EVERY EVENING 06/04/2016 12/30/2016 Inactive hydrochlorothiazide 25 mg tablet RxNorm: 350325 TAKE ONE TABLET BY MOUTH DAILY 05/10/2016 05/09/2016 Inactive hydrochlorothiazide 25 mg tablet RxNorm: 922700 TAKE ONE TABLET BY MOUTH DAILY 05/10/2016 02/12/2018 Inactive Pepcid 20 mg tablet RxNorm: 424072 1 Tablet(s) PO BID 03/18/2016 03/17/2016 Inactive Pepcid 20 mg tablet RxNorm: 511210 1 Tablet(s) PO BID 03/18/2016 07/11/2016 Inactive lisinopril 20 mg tablet RxNorm: 340485 TAKE ONE TABLET BY MOUTH DAILY 03/18/2016 08/14/2016 Inactive Vitamin D3 5,000 unit tablet RxNorm: 678373 Tablet(s) TAKE ONE TABLET BY MOUTH DAILY 03/18/2016 09/13/2016 Inactive trazodone 50 mg tablet RxNorm: 781512 TAKE ONE TABLET BY MOUTH AT BEDTIME 03/15/2016 06/07/2016 Inactive Vesicare 10 mg tablet RxNorm: 419554 1 Tablet(s) PO QHS 03/15/2016 02/07/2017 Inactive meloxicam 15 mg tablet RxNorm: 912837 TAKE ONE TABLET BY MOUTH DAILY 03/01/2016 01/24/2017 Inactive Bactrim DS 800 mg-160 mg tablet RxNorm: 809962 1 Tablet(s) PO BID 02/10/2016 02/09/2016 Inactive Bactrim DS 800 mg-160 mg tablet RxNorm: 965932 1 Tablet(s) PO BID 02/10/2016 02/16/2016 Inactive Cipro 500 mg tablet RxNorm: 318925 1 Tablet(s) PO BID 02/06/2016 02/09/2016 Inactive Cipro 500 mg tablet RxNorm: 769791 1 Tablet(s) PO BID 02/06/2016 02/05/2016 Inactive Pennsaid 20 mg/gram/actuation (2 %) topical soln in metered- dose pump RxNorm: 0340228 2 pumps TOP BID 01/19/2016 04/19/2016 Inactive tamsulosin 0.4 mg capsule RxNorm: 969442 TAKE ONE CAPSULE BY MOUTH EVERY EVENING 01/12/2016 06/03/2016 Inactive cyanocobalamin (vit B-12) 1,000 mcg/mL injection solution RxNorm: 014743 INJECT 1 ML INTRAMUSCULARLY MONTHLY 01/01/2016 10/26/2016 Inactive Request already responded to by other means (e.g. phone or fax) Vitamin B-12 1,000 mcg/mL injection solution RxNorm: 361517 1 Milliliter(s) Inj monthly 12/24/2015 04/19/2016 Inactive please give syringes for injections Vitamin D3 5,000 unit tablet RxNorm: 680395 TAKE ONE TABLET BY MOUTH DAILY 12/08/2015 03/06/2016 Inactive pantoprazole 40 mg tablet,delayed release RxNorm: 009065 TAKE ONE TABLET BY MOUTH DAILY 12/08/2015 03/17/2016 Inactive trazodone 50 mg tablet RxNorm: 301398 TAKE ONE TABLET BY MOUTH AT BEDTIME 11/10/2015 03/08/2016 Inactive lisinopril 20 mg tablet RxNorm: 270840 TAKE ONE TABLET BY MOUTH DAILY 09/08/2015 03/05/2016 Inactive Vitamin D3 5,000 unit tablet RxNorm: 279627 1 Tablet(s) PO daily 08/12/2015 12/07/2015 Inactive pantoprazole 40 mg tablet,delayed release RxNorm: 281319 1 Tablet(s) PO daily 08/12/2015 12/07/2015 Inactive tamsulosin 0.4 mg capsule RxNorm: 578119 TAKE ONE CAPSULE BY MOUTH EVERY EVENING 07/21/2015 12/17/2015 Inactive trazodone 50 mg tablet RxNorm: 450726 TAKE ONE TABLET BY MOUTH AT BEDTIME 05/09/2015 10/05/2015 Inactive hydrochlorothiazide 25 mg tablet RxNorm: 697624 1 Tablet(s) PO QAM 04/30/2015 04/29/2015 Inactive hydrochlorothiazide 25 mg tablet RxNorm: 541010 TAKE ONE TABLET BY MOUTH DAILY 04/30/2015 02/12/2018 Inactive pantoprazole 40 mg tablet,delayed release RxNorm: 047724 1 Tablet(s) PO daily 04/16/2015 08/11/2015 Inactive meloxicam 15 mg tablet RxNorm: 135498 TAKE ONE TABLET BY MOUTH DAILY 03/03/2015 02/25/2016 Inactive lisinopril 20 mg tablet RxNorm: 508055 1 Tablet(s) PO daily 02/19/2015 09/07/2015 Inactive tamsulosin 0.4 mg capsule RxNorm: 789318 TAKE ONE CAPSULE BY MOUTH EVERY EVENING 01/20/2015 07/18/2015 Inactive cyanocobalamin (vit B-12) 1,000 mcg/mL injection solution RxNorm: 132045 Milliliter(s) INJECT 1ML INTRAMUSCULARLY MONTHLY 12/12/2014 12/22/2014 Inactive trazodone 50 mg tablet RxNorm: 824045 TAKE ONE TABLET BY MOUTH AT BEDTIME 11/14/2014 05/08/2015 Inactive erythromycin 5 mg/gram (0.5 %) eye ointment RxNorm: 418732 1/2 inch OPH QID 11/05/2014 11/14/2014 Inactive acyclovir 800 mg tablet RxNorm: 928106 1 Tablet(s) PO TID 11/05/2014 11/18/2014 Inactive Zofran 4 mg tablet RxNorm: 575297 1 Tablet(s) PO Q4H as needed nausea 11/05/2014 01/03/2015 Inactive Duragesic 12 mcg/hr transdermal patch RxNorm: 901355 1 Patch TD Q72H 11/05/2014 02/04/2015 Inactive Imitrex 100 mg tablet RxNorm: 622618 1 Tablet(s) PO q 12 hours 11/04/2014 04/15/2015 Inactive naproxen 500 mg tablet RxNorm: 520303 1 Tablet(s) PO BID 10/30/2014 11/01/2014 Inactive meloxicam 15 mg tablet RxNorm: 412034 TAKE ONE TABLET BY MOUTH DAILY 10/04/2014 03/02/2015 Inactive Vesicare 5 mg tablet RxNorm: 551007 TAKE ONE TABLET BY MOUTH AT BEDTIME 09/16/2014 07/16/2015 Inactive Vitamin D2 50,000 unit capsule RxNorm: 002256 1 Capsule(s) PO QW 09/06/2014 07/16/2015 Inactive once weekly x 12 weeks tamsulosin ER 0.4 mg capsule,extended release 24 hr RxNorm: 955117 TAKE ONE CAPSULE BY MOUTH EVERY EVENING 06/24/2014 12/20/2014 Inactive tamsulosin ER 0.4 mg capsule,extended release 24 hr RxNorm: 746365 1 Capsule(s) PO QPM 06/24/2014 01/19/2015 Inactive Vitamin D2 50,000 unit capsule RxNorm: 038293 1 Capsule(s) PO QW 05/27/2014 09/05/2014 Inactive once weekly x 12 weeks Vesicare 5 mg tablet RxNorm: 549758 1 Tablet(s) PO QHS 05/23/2014 05/22/2014 Inactive Vesicare 5 mg tablet RxNorm: 569677 1 Tablet(s) PO QHS 05/23/2014 09/15/2014 Inactive trazodone 50 mg tablet RxNorm: 084089 TAKE ONE TABLET BY MOUTH AT BEDTIME 05/13/2014 11/08/2014 Inactive trazodone 50 mg tablet RxNorm: 951564 TAKE ONE TABLET BY MOUTH AT BEDTIME 05/13/2014 11/08/2014 Inactive hydrochlorothiazide 25 mg tablet RxNorm: 701369 1 Tablet(s) PO QAM 04/18/2014 01/12/2015 Inactive Vitamin D2 50,000 unit capsule RxNorm: 672259 TAKE ONE CAPSULE BY MOUTH ONCE WEEKLY FOR 12 WEEKS 04/09/2014 05/14/2014 Inactive trazodone 50 mg tablet RxNorm: 597748 1 Tablet(s) PO QHS 02/22/2014 05/12/2014 Inactive trazodone 50 mg tablet RxNorm: 442148 1 Tablet(s) PO QHS 02/22/2014 02/21/2014 Inactive Vitamin D2 50,000 unit capsule RxNorm: 456279 TAKE ONE CAPSULE BY MOUTH ONCE WEEKLY FOR 12 WEEKS 02/07/2014 03/06/2014 Inactive meloxicam 15 mg tablet RxNorm: 436054 TAKE ONE TABLET BY MOUTH ONCE A DAY 02/07/2014 08/05/2014 Inactive meloxicam 15 mg tablet RxNorm: 082068 TAKE ONE TABLET BY MOUTH ONCE A DAY 02/07/2014 2014 Inactive clotrimazole 1 % topical cream RxNorm: 152427 1 Application TOP BID 12/25/2013 07/16/2015 Inactive Diflucan 150 mg tablet RxNorm: 257403 1 Tablet(s) PO daily 12/25/2013 12/31/2013 Inactive tamsulosin ER 0.4 mg capsule,extended release 24 hr RxNorm: 558987 1 Capsule(s) PO QPM 11/28/2013 06/23/2014 Inactive cyanocobalamin (vit B-12) 1,000 mcg/mL injection solution RxNorm: 169316 1 Milliliter(s) Inj 11/28/2013 12/12/2014 Inactive Vitamin B-12 1,000 mcg/mL injection solution RxNorm: 418228 1 Milliliter(s) Inj monthly 11/21/2013 02/13/2015 Inactive please give syringes for injections Vitamin D2 50,000 unit capsule RxNorm: 272544 1 Capsule(s) PO QW x 12 weeks 11/21/2013 02/06/2014 Inactive [SAVINGS FOR UNINSURED PATIENTS -- to take addtional 2000 units daily Vitamin B-12 1,000 mcg/mL injection solution RxNorm: 262714 1 Milliliter(s) Inj monthly 11/21/2013 11/20/2013 Inactive meloxicam 15 mg tablet RxNorm: 050110 1 Tablet(s) PO daily 11/20/2013 11/19/2013 Inactive [SAVINGS FOR UNINSURED PATIENTS -- BIN:[id number], PCN: [id number], Group: [id number], ID# [id number], Process claim through TEVIZZ, for questions: . THIS IS NOT INSURANCE.] meloxicam 15 mg tablet RxNorm: 832913 1 Tablet(s) PO daily 11/20/2013 02/06/2014 Inactive [SAVINGS FOR UNINSURED PATIENTS -- BIN:445607, PCN: ASPROD1, Group: [id number], ID# [id number], Process claim through [employer]EV[employer], for questions: . THIS IS NOT INSURANCE.] meloxicam 15 mg tablet RxNorm: 298952 1 Tablet(s) PO daily 11/20/2013 11/19/2013 Inactive Voltaren 1 % topical gel RxNorm: 292617 4 Application TOP QID apply to back, affected joints four times daily 11/14/2013 11/20/2013 Inactive trazodone 50 mg tablet RxNorm: 586510 1 Tablet(s) PO QHS No Start Date Active Vitamin D2 50,000 unit capsule RxNorm: 527937 1 Capsule(s) PO QW No Start Date 05/26/2014 Inactive once weekly x 12 weeks Zithromax Z-Brian 250 mg tablet RxNorm: 623144 1 Tablet(s) PO UD No Start Date 02/06/2018 Inactive Vitamin D2 50,000 unit capsule RxNorm: 548070 1 Capsule(s) PO QW No Start Date 11/20/2013 Inactive gabapentin 300 mg capsule RxNorm: 022129 1 Capsule(s) PO TID No Start Date 03/28/2017 Inactive Vesicare 10 mg tablet RxNorm: 013990 1 Tablet(s) PO QHS No Start Date 03/14/2016 Inactive Toprol XL 25 mg tablet,extended release RxNorm: 391629 1 Tablet(s) PO daily No Start Date 04/19/2018 Inactive Vitamin D3 5,000 unit tablet RxNorm: 927747 1 Tablet(s) PO daily No Start Date 08/11/2015 Inactive Celebrex 200 mg capsule RxNorm: 875017 1 Capsule(s) PO BID No Start Date 07/19/2016 Inactive Imitrex 50 mg tablet RxNorm: 108765 1 Tablet(s) PO now and may repeat up to four times in 24 hours No Start Date 11/03/2014 Inactive Zofran 4 mg tablet RxNorm: 083637 1 Tablet(s) PO Q8 as needed nausea and vomitting No Start Date 10/15/2015 Inactive ranitidine 150 mg tablet RxNorm: 451682 1 Tablet(s) PO BID No Start Date 02/12/2018 Inactive Phenergan 25 mg tablet RxNorm: 647579 1 Tablet(s) PO now No Start Date 04/15/2015 Inactive Tums oral RxNorm: 702608 oral No Start Date 10/15/2015 Inactive Medication Administered Medication Codes Instructions Start Date Status Kenalog 40 mg/mL suspension for injection RxNorm: 3105968 1Milliliter 09/07/2017 No longer Active cyanocobalamin (vit B-12) 1,000 mcg/mL injection solution RxNorm: 424351 1Milliliter 11/28/2013 No longer Active Immunizations Vaccine [...] recently went to an eye doctor in [place]. Reports that he did have hemorrhaging in his right eye which is getting better. headache 04/18/2014 Pt states he recently went to an eye doctor in [place] shortness of breath 02/21/2014 blisters 12/25/2013 insomnia 11/28/2013 back pain 11/14/2013 Results Observation Observation Code Item Item Code Result Date Vitamin D 25 Oh [id number] VITAMIN D, 25 HYDROXY 66.80 ng/mL 03/14/2018 [...] 28.5 pg 03/14/2018 Cbc With Differential Ord2 Hinds% 7.6 % 03/14/2018 Cbc With Differential Ord2 [...] 1.28 K/ul 03/14/2018 Cbc With Differential Ord2 Hinds ABS# 0.4 K/ul 03/14/2018 Cbc With Differential [...] Lipid Ord30 C/HDL 5.0 Ratio 06/27/2017 %Hba1C Tkw992 % HbA1c 56889- 6 6.2 % 06/27/2017 %Hba1C Uiy395 Gluc Ave 131 mg/dL 06/27/2017 Comp Metabolic Qob771 NA 140 mEq/L 06/27/2017 Comp Metabolic Dyr337 K 4.2 mEq/L 06/27/2017 Comp Metabolic Uew595 CL 100 mEq/L 06/27/2017 Comp Metabolic Kcd814 CO2 32.0 mEq/L 06/27/2017 Comp Metabolic Han603 ANION GAP 12 06/27/2017 Comp Metabolic Jfa641 GLUCOSE 118 mg/dL 06/27/2017 Comp Metabolic Mfw232 Creat 1.0 mg/dL 06/27/2017 Comp Metabolic Szn891 eGFR 82 ml/min/1.73m2 06/27/2017 Comp Metabolic Rbp179 BUN 26 mg/dL 06/27/2017 Comp Metabolic Kfb880 B/C Ratio 27.1 Ratio 06/27/2017 Comp Metabolic Cza380 CALCIUM 9.6 mg/dL 06/27/2017 Comp Metabolic Ezk247 ALK PHOS 46 U/L 06/27/2017 Comp Metabolic Dwl276 AST(SGOT) 23 U/L 06/27/2017 Comp Metabolic Qfb580 ALT(SGPT) 31 U/L 06/27/2017 Comp Metabolic Yfl888 BILI T 0.5 mg/dL 06/27/2017 Comp Metabolic Bdx556 ALBUMIN 4.2 g/dL 06/27/2017 Comp Metabolic Fvq913 TPRO 6.6 g/dL 06/27/2017 Comp Metabolic Tty831 GLOB 2.4 g/dL 06/27/2017 Comp Metabolic Rlq773 A/G Ratio 1.7 Ratio 06/27/2017 Comp Metabolic Cpt523 Osmo 285 mOsmo 06/27/2017 Cbc With Differential [...] 29.0 pg 10/20/2016 Cbc With Differential Ord2 Hinds% 9.0 % 10/20/2016 Cbc With Differential Ord2 [...] 1.33 K/ul 10/20/2016 Cbc With Differential Ord2 Hinds ABS# 0.4 K/ul 10/20/2016 Cbc With Differential Ord2 Eos ABS# 0.2 K/ul 10/20/2016 Cbc With Differential Ord2 Baso ABS# 0.0 K/ul 10/20/2016 Comp Metabolic Aph767 NA 143 mEq/L 10/20/2016 Comp Metabolic Asb255 K 4.6 mEq/L 10/20/2016 Comp Metabolic Iuf188 CL 104 mEq/L 10/20/2016 Comp Metabolic Xok448 CO2 31.0 mEq/L 10/20/2016 Comp Metabolic Aie428 ANION GAP 13 10/20/2016 Comp Metabolic Ake542 GLUCOSE 117 mg/dL 10/20/2016 Comp Metabolic Vhj458 Creat 1.1 mg/dL 10/20/2016 Comp Metabolic Lll404 eGFR 74 ml/min/1.73m2 10/20/2016 Comp Metabolic Qmy865 BUN 27 mg/dL 10/20/2016 Comp Metabolic Say416 B/C Ratio 25.7 Ratio 10/20/2016 Comp Metabolic Iar558 CALCIUM 9.3 mg/dL 10/20/2016 Comp Metabolic Dhi261 ALK PHOS 47 U/L 10/20/2016 Comp Metabolic Bps772 AST(SGOT) 18 U/L 10/20/2016 Comp Metabolic Sae822 ALT(SGPT) 22 U/L 10/20/2016 Comp Metabolic Yqb309 BILI T 0.5 mg/dL 10/20/2016 Comp Metabolic Ggn658 ALBUMIN 3.9 g/dL 10/20/2016 Comp Metabolic Vxe685 TPRO 6.5 g/dL 10/20/2016 Comp Metabolic Wlx560 GLOB 2.6 g/dL 10/20/2016 Comp Metabolic Yux508 A/G Ratio 1.5 Ratio 10/20/2016 Comp Metabolic Igj216 Osmo 291 mOsmo 10/20/2016 Tsh Ord6 hTSH II 1.56 uIU/mL 10/20/2016 Lipid Ord30 CHOL 153 mg/dL 10/20/2016 Lipid Ord30 HDL 34.0 mg/dl 10/20/2016 Lipid Ord30 TRIG 123 mg/dL 10/20/2016 Lipid Ord30 LDL 94 mg/dL 10/20/2016 Lipid Ord30 C/HDL 4.5 Ratio 10/20/2016 B12 Dku267 B12 544.00 pg/ml 10/20/2016 Comp Metabolic Cpe831 NA 138 mEq/L 05/13/2016 Comp Metabolic Qeq273 K 4.2 mEq/L 05/13/2016 Comp Metabolic Xwq314 CL 102 mEq/L 05/13/2016 Comp Metabolic Oot648 CO2 30.0 mEq/L 05/13/2016 Comp Metabolic Qyy107 ANION GAP 10 05/13/2016 Comp Metabolic Abd001 GLUCOSE 113 mg/dL 05/13/2016 Comp Metabolic Lqy443 Creat 1.0 mg/dL 05/13/2016 Comp Metabolic Jgx384 eGFR 77 ml/min/1.73m2 05/13/2016 Comp Metabolic Ycp214 BUN 26 mg/dL 05/13/2016 Comp Metabolic Afv868 B/C Ratio 25.5 Ratio 05/13/2016 Comp Metabolic Nga458 CALCIUM 9.7 mg/dL 05/13/2016 Comp Metabolic Xyi377 ALK PHOS 51 U/L 05/13/2016 Comp Metabolic Ykj430 AST(SGOT) 17 U/L 05/13/2016 Comp Metabolic Trv348 ALT(SGPT) 20 U/L 05/13/2016 Comp Metabolic Sae798 BILI T 0.6 mg/dL 05/13/2016 Comp Metabolic Yrn566 ALBUMIN 4.0 g/dL 05/13/2016 Comp Metabolic Zfk236 TPRO 6.6 g/dL 05/13/2016 Comp Metabolic Aor003 GLOB 2.6 g/dL 05/13/2016 Comp Metabolic Ter022 A/G Ratio 1.6 Ratio 05/13/2016 Comp Metabolic Obh766 Osmo 281 mOsmo 05/13/2016 Lipid Ord30 CHOL [...] 29.3 pg 02/11/2016 Cbc With Differential Ord2 Hinds% 7.7 % 02/11/2016 Cbc With Differential Ord2 [...] 1.18 K/ul 02/11/2016 Cbc With Differential Ord2 Hinds ABS# 0.4 K/ul 02/11/2016 Cbc With Differential Ord2 Eos ABS# 0.1 K/ul 02/11/2016 Cbc With Differential Ord2 Baso ABS# 0.0 K/ul 02/11/2016 Comp Metabolic Rqp783 NA 138 mEq/L 02/11/2016 Comp Metabolic Ygu113 K 4.0 mEq/L 02/11/2016 Comp Metabolic Jlt821 CL 97 mEq/L 02/11/2016 Comp Metabolic Cti009 CO2 32.0 mEq/L 02/11/2016 Comp Metabolic Iug709 ANION GAP 13 02/11/2016 Comp Metabolic Jmn272 GLUCOSE 117 mg/dL 02/11/2016 Comp Metabolic Hck297 Creat 1.0 mg/dL 02/11/2016 Comp Metabolic Pwr320 eGFR 81 ml/min/1.73m2 02/11/2016 Comp Metabolic Edr010 BUN 21 mg/dL 02/11/2016 Comp Metabolic Wkg835 B/C Ratio 21.4 Ratio 02/11/2016 Comp Metabolic Djo581 CALCIUM 9.2 mg/dL 02/11/2016 Comp Metabolic Iwl138 ALK PHOS 48 U/L 02/11/2016 Comp Metabolic Mqe563 AST(SGOT) 18 U/L 02/11/2016 Comp Metabolic Fop463 ALT(SGPT) 22 U/L 02/11/2016 Comp Metabolic Dci091 BILI T 0.5 mg/dL 02/11/2016 Comp Metabolic Ndr374 ALBUMIN 3.9 g/dL 02/11/2016 Comp Metabolic Osz619 TPRO 6.3 g/dL 02/11/2016 Comp Metabolic Unf662 GLOB 2.5 g/dL 02/11/2016 Comp Metabolic Jwo059 A/G Ratio 1.6 Ratio 02/11/2016 Comp Metabolic Gqp961 Osmo 280 mOsmo 02/11/2016 Lipid Ord30 CHOL 163 mg/dL 02/11/2016 Lipid Ord30 HDL 35.0 mg/dl 02/11/2016 Lipid Ord30 TRIG 200 mg/dL 02/11/2016 Lipid Ord30 LDL 88 mg/dL 02/11/2016 Lipid Ord30 C/HDL 4.7 Ratio 02/11/2016 %Hba1C Gvq708 % HbA1c 49132- 6 6.5 % 02/11/2016 %Hba1C Glh049 Gluc Ave 140 mg/dL 02/11/2016 Tsh Ord6 hTSH II 2.07 uIU/mL 02/11/2016 B12 Spr978 B12 563.00 pg/ml 02/11/2016 Culture Urine [id number] URINE CULTURE SEE NOTES 02/10/2016 Culture Urine [id number] Continued Results 02/10/2016 Urine Culture Ucult Complete [...] hours from collection if refrigerated) 11/04/2015 %Hba1C Dwq967 % HbA1c 52570- 6 6.4 % 04/16/2015 %Hba1C Vcw627 Gluc Ave 137 mg/dL 04/16/2015 Tsh Ord6 hTSH II 3.33 uIU/mL 02/07/2015 Comp Metabolic Ogd218 NA 136 mEq/L 02/07/2015 Comp Metabolic Pvs771 K 3.9 mEq/L 02/07/2015 Comp Metabolic Gnb894 CL 98 mEq/L 02/07/2015 Comp Metabolic Sfl576 CO2 31.0 mEq/L 02/07/2015 Comp Metabolic Jwi683 ANION GAP 11 02/07/2015 Comp Metabolic Qdl247 GLUCOSE 139 mg/dL 02/07/2015 Comp Metabolic Cmx930 Creat 0.9 mg/dL 02/07/2015 Comp Metabolic Toy139 eGFR 87 ml/min/1.73m2 02/07/2015 Comp Metabolic Ule156 BUN 20 mg/dL 02/07/2015 Comp Metabolic Guf230 B/C Ratio 21.7 Ratio 02/07/2015 Comp Metabolic Fpq285 CALCIUM 9.7 mg/dL 02/07/2015 Comp Metabolic Pxh479 ALK PHOS 55 U/L 02/07/2015 Comp Metabolic Tak753 AST(SGOT) 20 U/L 02/07/2015 Comp Metabolic Kjs673 ALT(SGPT) 27 U/L 02/07/2015 Comp Metabolic Esn002 BILI T 0.5 mg/dL 02/07/2015 Comp Metabolic Mrl389 ALBUMIN 4.3 g/dL 02/07/2015 Comp Metabolic Npw641 TPRO 6.9 g/dL 02/07/2015 Comp Metabolic Kje938 GLOB 2.6 g/dL 02/07/2015 Comp Metabolic Fup652 A/G Ratio 1.7 Ratio 02/07/2015 Comp Metabolic [id number] Osmo 277 mOsmo 02/07/2015 Cbc With Differential [...] Ord2 RDW 14.8 % 02/07/2015 A1C HPLC [id number] A1C HPLC 52470-5 6.0 % 05/23/2014 VIT B 12 [id number] VIT B 12 479 PG/ML 05/23/2014 VIT D TOTL [id number] VIT D TOTL 29 NG/ML 05/23/2014 Review [...] 4: G0439 12/27/2017 THER/PROPH/DIAG INJ SC/IM CPT-4: 07761 09/07/2017 TRIAMCINOLONE ACET INJ NOS CPT-4: J3301 09/07/2017 ROUTINE VENIPUNCTURE CPT- 4: 07271 05/23/2014 THER/PROPH/DIAG INJ SC/IM CPT-4: 88706 11/28/2013 VITAMIN B12 INJECTION CPT- 4: J3420 11/28/2013 Vital Signs Date Vital 06/27/2018 Blood Pressure 1: 124/70 Code: 8480-6 BMI: 36.6 Code: 58539-2 Heart Rate 1: 64 bpm Height: 6' SpO2: 96% Weight: 270 lbs 04/20/2018 Blood Pressure 1: 126/74 Code: 8480-6 BMI: 36.6 Code: 04994-8 Heart Rate 1: 60 bpm Height: 6' SpO2: 94% Weight: 270 lbs 03/21/2018 Blood Pressure 1: 138/74 Code: 8480-6 BMI: 36.8 Code: 87552-3 Heart Rate 1: 81 bpm Height: 6' SpO2: 98% Weight: 271 lbs 02/08/2018 Blood Pressure 1: 132/74 Code: 8480-6 BMI: 37.0 Code: 46199-7 Heart Rate 1: 82 bpm Height: 6' SpO2: 97% Weight: 273 lbs 12/27/2017 Blood Pressure 1: 148/78 Code: 8480-6 BMI: 36.3 Code: 06968-4 Heart Rate 1: 78 bpm Height: 6' SpO2: 93% Waist Measure (cm): 117 cm Weight: 268 lbs 12/06/2017 Blood Pressure 1: 122/70 Code: 8480-6 BMI: 36.6 Code: 89025-6 Heart Rate 1: 76 bpm Height: 6' SpO2: 93% Weight: 270 lbs 11/01/2017 BMI: 36.9 Code: 39604-5 Height: 6' Weight: 272 lbs 09/07/2017 Blood Pressure 1: 140/78 Code: 8480-6 BMI: 35.8 Code: 68903-7 Heart Rate 1: 76 bpm Height: 6' SpO2: 98% Weight: 264 lbs 06/07/2017 Blood Pressure 1: 138/86 Code: 8480-6 BMI: 36.3 Code: 40411-4 Heart Rate 1: 66 bpm Height: 6' SpO2: 95% Weight: 268 lbs 05/19/2017 Blood Pressure 1: 152/84 Code: 8480-6 BMI: 36.8 Code: 02348-8 Heart Rate 1: 70 bpm Height: 6' SpO2: 93% Weight: 271 lbs 05/09/2017 Blood Pressure 1: 138/76 Code: 8480-6 BMI: 36.6 Code: 80188-9 Heart Rate 1: 79 bpm Height: 6' SpO2: 93% Weight: 270 lbs 04/25/2017 Blood Pressure 1: 150/80 Code: 8480-6 Heart Rate 1: 58 bpm Height: SpO2: 94% Weight: 2017 Blood Pressure 1: 138/80 Code: 8480-6 BMI: 36.5 Code: 82921-7 Heart Rate 1: 76 bpm Height: 6' SpO2: 96% Weight: 269 lbs 03/29/2017 Blood Pressure 1: 118/68 Code: 8480-6 BMI: 36.9 Code: 68053-3 Heart Rate 1: 61 bpm Height: 6' SpO2: 95% Weight: 272 lbs 03/17/2017 Blood Pressure 1: 140/78 Code: 8480-6 BMI: 36.8 Code: 04016-8 Heart Rate 1: 91 bpm Height: 6' SpO2: 93% Weight: 271 lbs 03/08/2017 Blood Pressure 1: 152/84 Code: 8480-6 BMI: 36.8 Code: 62322-8 Heart Rate 1: 72 bpm Height: 6' SpO2: 92% Temperature: 36.6 (C) / 97.8 (F) Weight: 271 lbs 02/17/2017 Blood Pressure 1: 110/64 Code: 8480-6 BMI: 36.5 Code: 69015-1 Heart Rate 1: 62 bpm Height: 6' SpO2: 96% Weight: 269 lbs 01/18/2017 Blood Pressure 1: 140/80 Code: 8480-6 BMI: 36.5 Code: 84122-0 Heart Rate 1: 62 bpm Height: 6' SpO2: 94% Weight: 269 lbs 10/19/2016 Blood Pressure 1: 120/80 Code: 8480-6 BMI: 35.9 Code: 75414-4 Heart Rate 1: 64 bpm Height: 6' SpO2: 97% Weight: 265 lbs 08/17/2016 Blood Pressure 1: 112/76 Code: 8480-6 BMI: 36.1 Code: 60519-5 Heart Rate 1: 65 bpm Height: 6' SpO2: 97% Weight: 266 lbs 07/20/2016 Blood Pressure 1: 126/78 Code: 8480-6 BMI: 35.5 Code: 30376-4 Heart Rate 1: 60 bpm Height: 6' SpO2: 95% Weight: 262 lbs 04/19/2016 Blood Pressure 1: 132/78 Code: 8480-6 BMI: 35.1 Code: 40315-8 Heart Rate 1: 65 bpm Height: 6' SpO2: 98% Weight: 259 lbs 01/19/2016 Blood Pressure 1: 140/64 Code: 8480-6 BMI: 34.4 Code: 33554-7 Heart Rate 1: 61 bpm Height: 6' SpO2: 97% Weight: 254 lbs 10/16/2015 Blood Pressure 1: 108/66 Code: 8480-6 BMI: 35.3 Code: 85476-9 Heart Rate 1: 65 bpm Height: 6' SpO2: 96% Weight: 260 lbs 07/17/2015 Blood Pressure 1: 136/74 Code: 8480-6 BMI: 35.8 Code: 24475-6 Heart Rate 1: 59 bpm Height: 6' SpO2: 97% Weight: 263 lbs 13 07/03/2015 Weight: 265 lbs 04/16/2015 Blood Pressure 1: 130/82 Code: 8480-6 BMI: 36.1 Code: 25885-7 Heart Rate 1: 7694 bpm Height: 6' SpO2: 94% Weight: 266 lbs 02/19/2015 Blood Pressure 1: 160/90 Code: 8480-6 BMI: 35.8 Code: 28027-0 Heart Rate 1: 78 bpm Height: 6' SpO2: 94% Weight: 264 lbs 11/20/2014 Blood Pressure 1: 140/96 Code: 8480-6 BMI: 34.6 Code: 61692-8 Heart Rate 1: 92 bpm Height: 6' SpO2: 95% Weight: 255 lbs 11/05/2014 Blood Pressure 1: 132/70 Code: 8480-6 BMI: 34.6 Code: 65713-8 Heart Rate 1: 96 bpm Height: 6' SpO2: 98% Weight: 255 lbs 09/19/2014 Blood Pressure 1: 152/86 Code: 8480-6 BMI: 35.8 Code: 84957-1 Heart Rate 1: 82 bpm Height: 6' SpO2: 95% Weight: 264 lbs 07/24/2014 Blood Pressure 1: 142/82 Code: 8480-6 BMI: 34.7 Code: 97785-8 Heart Rate 1: 72 bpm Height: 6' Weight: 256 lbs 05/23/2014 Blood Pressure 1: 150/82 Code: 8480-6 BMI: 33.4 Code: 90133-4 Heart Rate 1: 68 bpm Height: 6' Weight: 246 lbs 04/18/2014 Blood Pressure 1: 132/84 Code: 8480-6 BMI: 33.2 Code: 83706-1 Heart Rate 1: 80 bpm Height: 6' Weight: 245 lbs 02/21/2014 Blood Pressure 1: 138/82 Code: 8480-6 BMI: 32.4 Code: 19791-4 Heart Rate 1: 85 bpm Height: 6' SpO2: 98% Weight: 239 lbs 12/25/2013 Blood Pressure 1: 146/80 Code: 8480-6 BMI: 30.5 Code: 42629-9 Heart Rate 1: 100 bpm Height: 6' Weight: 225 lbs 11/28/2013 Blood Pressure 1: 120/64 Code: 8480-6 BMI: 30.4 Code: 70074-9 Heart Rate 1: 68 bpm Height: 6' Weight: 224 lbs 11/14/2013 Blood Pressure 1: 124/80 Code: 8480-6 BMI: 30.0 Code: 92082-8 Heart Rate 1: 76 bpm Height: 6' [...] Maxitrol and Polytrim seeing eye dr in [place]. Reports eye still feels irritated. headache Quality [...] and tinea capitis[ICD10: B35.0] Glory Long MD, [facility] CPT-4: 93549 06/27/2018 ([id number]) 86062 EST. 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 PATIENT, LEVEL III Diagnosis: Acute bronchitis due to other specified organisms[ICD10: J20.8] Antoinette Long MD, [facility] CPT-4: 36528 02/08/2018 ([id number]) 68934 EST. 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 PATIENT, LEVEL III Diagnosis: Essential (primary) hypertension[ICD10: I10] Diagnosis: Localized edema[ICD10: R60.0] Diagnosis: Cellulitis of left lower limb[ICD10: L03.116] Quyen Long MD [facility] CPT-4: 13651 06/07/2017 ([id number]) 36728 EST. 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 PATIENT, LEVEL II Diagnosis: Rash and other nonspecific skin eruption[ICD10: R21] Glory Long MD [facility] CPT-4: 10028 05/09/2017 ([id number]) 53059 EST. PATIENT, LEVEL II Diagnosis: Rash and other nonspecific skin eruption[ICD10: R21] Glory Long MD [facility] CPT-4: 11334 04/25/2017 ([id number]) 12080 EST. PATIENT, LEVEL III Diagnosis: Cellulitis of left lower limb[ICD10: L03.116] Diagnosis: Rash and other nonspecific skin eruption[ICD10: R21] Glory Long MD [facility] CPT-4: 49222 2017 ([id number]) 80177 EST. PATIENT, LEVEL III Diagnosis: Cellulitis of left lower limb[ICD10: L03.116] Diagnosis: Rash and other nonspecific skin eruption[ICD10: R21] Glory Long MD, [facility] CPT-4: 15909 03/29/2017 [id number] EST. PATIENT, LEVEL IV Diagnosis: Cellulitis of left lower limb[ICD10: L03.116] Antoinette Long MD, [facility] CPT-4: 06243 03/17/2017 ([id number]) 17374 EST. PATIENT, LEVEL III Diagnosis: Rash and other nonspecific skin eruption[ICD10: R21] Glory Long MD, [facility] CPT-4: 23473 03/08/2017 41214 EST. PATIENT, LEVEL IV Diagnosis: Essential (primary) hypertension[ICD10: I10] Diagnosis: Muscle weakness (generalized)[ICD10: M62.81] Diagnosis: Body mass index (BMI) 36.0-36.9, adult[ICD10: Z68.36] Diagnosis: Family history of ischemic heart disease and other diseases of the circulatory system[ICD10: Z82.49] Antoinette Long MD, [facility] CPT-4: 37271 02/17/2017 ([id number]) 00025 EST. PATIENT, LEVEL IV Diagnosis: Essential (primary) hypertension[ICD10: I10] Diagnosis: Muscle weakness (generalized)[ICD10: M62.81] Quyen Long MD, [facility] CPT-4: 70268 01/18/2017 ([id number]) 45904 EST. 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 PATIENT, LEVEL III Diagnosis: Pain in left shoulder[ICD10: M25.512] Diagnosis: Rash and other nonspecific skin eruption[ICD10: R21] Gloyr Long MD, [facility] CPT-4: 16064 08/17/2016 ([id number]) 05732 EST. PATIENT, LEVEL IV Diagnosis: Essential (primary) hypertension[ICD10: I10] Diagnosis: Pain in left shoulder[ICD10: M25.512] Quyen Long MD, [facility] CPT-4: 33232 07/20/2016 ([id number]) 49785 EST. 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 PATIENT, LEVEL IV Diagnosis: Essential (primary) hypertension[ICD10: I10] Diagnosis: Other abnormal glucose[ICD10: R73.09] Diagnosis: Gastro-esophageal reflux disease without esophagitis[ICD10: K21.9] Diagnosis: Obesity, unspecified[ICD10: E66.9] Quyen Long MD [facility] CPT- 4: 19514 04/16/2015 ([id number]) 40996 EST. PATIENT, LEVEL IV Diagnosis: ESSENTIAL HYPERTENSION[ICD9: 401.9] Diagnosis: OBESITY[ICD9: 278.00] Diagnosis: Post-polio limb muscle weakness[ICD9: 728.87] Quyen Long MD [facility] CPT-4: 19599 02/19/2015 ([id number]) 92582 EST. PATIENT, LEVEL IV Diagnosis: Shingles outbreak[ICD9: 053.9] Diagnosis: ESSENTIAL HYPERTENSION[ICD9: 401.9] Diagnosis: Earache[ICD9: 388.70] Quyen Long MD [facility] CPT-4: 63329 11/20/2014 ([id number]) 79405 EST. PATIENT, LEVEL III Diagnosis: Shingles outbreak[ICD9: 053.9] Diagnosis: Face pain[ICD9: 784.0] Diagnosis: Pain, eye, right[ICD9: 379.91] Quyen Long MD, [facility] CPT-4: 24312 11/05/2014 ([id number]) 04319 EST. PATIENT, LEVEL V Diagnosis: Post-polio limb muscle weakness[ICD9: 728.87] Diagnosis: Post-polio syndrome[ICD9: 138] Diagnosis: Leg weakness[ICD9: 729.89] Diagnosis: Weakness[ICD9: 780.79] Diagnosis: Foot drop[ICD9: 736.79] Quyen Long MD [facility] CPT-4: 36959 09/19/2014 ([id number]) 11790 EST. PATIENT, LEVEL IV Diagnosis: ESSENTIAL HYPERTENSION[ICD9: 401.9] Diagnosis: Carotid bruit[ICD9: 785.9] Diagnosis: Seborrheic dermatitis[ICD9: 690.10] Diagnosis: Post-polio syndrome[ICD9: 138] Diagnosis: Vitamin D deficiency[ICD9: 268.9] Quyen Long MD [facility] CPT- 4: 14021 07/24/2014 ([id number]) 21121 EST. PATIENT, LEVEL IV Diagnosis: Neck pain[ICD9: 723.1] Diagnosis: Post-polio syndrome[ICD9: 138] Diagnosis: Vitamin D deficiency[ICD9: 268.9] Diagnosis: Vitamin B12 deficiency[ICD9: 266.2] Diagnosis: Nocturia[ICD9: 788.43] Diagnosis: Leg weakness[ICD9: 729.89] Diagnosis: Elevated blood sugar[ICD9: 790.29] Glory Long MD, [facility] CPT- 4: 92408 05/23/2014 ([id number]) 56453 EST. PATIENT, LEVEL IV Diagnosis: ESSENTIAL HYPERTENSION[ICD9: 401.9] Diagnosis: HEADACHE[ICD9: 784.0] Diagnosis: EDEMA[ICD9: 782.3] Quyen Long MD, [facility] CPT-4: 77407 04/18/2014 [id number] EST. PATIENT, LEVEL IV Diagnosis: Insomnia[ICD9: 780.52] Diagnosis: Post-polio syndrome[ICD9: 138] Diagnosis: Vitamin D deficiency[ICD9: 268.9] Diagnosis: Nocturnal hypoxemia[ICD9: 799.02] Glory Long MD, [facility] CPT- 4: 08967 02/21/2014 ([id number]) 41669 EST. PATIENT, LEVEL III Diagnosis: Tinea pedis[ICD9: 110.4] Diagnosis: Post-polio limb muscle weakness[ICD9: 728.87] Glory Long MD, [facility] CPT-4: 08420 12/25/2013 ([id number]) 21277 EST. PATIENT, LEVEL IV Diagnosis: Insomnia[ICD9: 780.52] Diagnosis: Vitamin B12 deficiency (dietary) anemia[ICD9: 281.1] Diagnosis: VITAMIN D DEFICIENCY[ICD9: 268.9] Diagnosis: Weakness[ICD9: 780.79] Quyen Long MD, [facility] CPT-4: 40170 11/28/2013 ([id number]) OFFICE/OUTPATIENT VISIT NEW Diagnosis: Post-polio limb muscle weakness[ICD9: 728.87] Diagnosis: Post-polio syndrome[ICD9: 138] Diagnosis: Insomnia[ICD9: 780.52] Diagnosis: Arrhythmia[ICD9: 427.9] Quyen Long MD, [facility] CPT-4: 97341 11/14/2013 Plan of Care Planned Activity Notes [...] shoulder. 04/20/2018 Appointment: Quyen Long WPtel: [phone] [facility] (15 min) Moderate 04/20/2018 Patient Education: Patient Medication Summary Completed 04/20/2018 Patient Education: Hypertension Completed 04/20/2018 Appointment: Quyen Long WPtel: [facility]1 [facility] (15 min) Moderate 04/11/2018 Visit Plan: Post polio syndrome -right leg weakness -patient needs repair and adjustment of his right leg brace that helps with his symptoms of instability and weakness and allows him to ambulate -will send rx to [place] [facility] 03/21/2018 Appointment: Glory Dalton WPtel: [phone] [phone] [place] (15 min) Moderate 03/21/2018 Patient Education: [...] worsen. 02/08/2018 Appointment: Antoinette Arndt WPtel: [phone] [facility] (30 min) Complex 02/08/2018 Patient Education: Patient [...] Completed 12/27/2017 [phone] (15 min) Moderate 12/08/2017 Visit Plan: Hypertension [...] injection. 12/06/2017 App[facility]ment[phone] (15 min) Moderate 12/06/2017 Patient Education: Patient [...] check. 09/07/2017 Appointment: [phone] (15 min) Moderate 09/07/2017 Patient Education: Patient [...] lower leg. 06/07/2017 Appointment: [facility]yen Long [facility]Ptel[facility] (15 min) Moderate 06/07/2017 Patient Education: Patient [...] compression recommended. 05/19/2017 Appointment: [facility] Long [facility] (15 min) Moderate 05/19/2017 Patient Education: Patient Medication Summary Completed 05/19/2017 Patient Education: Obesity Completed 05/19/2017 Patient Education: Hypertension Completed 05/19/2017 Visit Plan: Rash-left heqh-rulimxzv-zlnkecvwaz patient to continue using ketoconazole plus betamethasone equal parts and increase to TID-leave foot open to air as much as possible-follow up in 2 weeks, sooner if needed. 05/09/2017 Appointment: Glory Dalton WPtel: [phone] [place] (30 min) Complex 05/09/2017 Patient Education: Patient Medication Summary Completed 05/09/2017 Patient Education: Obesity Completed 05/09/2017 Visit Plan: Rash-left foot-Dr Long in to evaluate rash-instructed patient to start using ketoconazole plus betamethasone equal parts TID -follow up in 2 weeks, sooner if needed. 04/25/2017 Appointment: Glory Dalton WPtel: [phone] [place] (30 min) Complex 04/25/2017 Patient Education: Patient Medication Summary Completed 04/25/2017 Visit Plan: Cellulitis of left foot-no longer draining-no open areas-no excoriation-slightly red-okay to d/c all treatments-keep clean and monitor-call if redness does not resolve Rash-resolved 2017 Appointment: Glory Dalton WPtel: [facility]5 [phone] (30 min) Complex 2017 Patient Education: Patient Medication Summary Completed 2017 Patient Education: Obesity Completed 2017 Visit Plan: Cellulitis-left foot-MSSA dawbnhvq-lucwieogt-czgub air in the evening-continue bactroban ointment twice daily-stop using alcohol on foot-no papertowels or abrasives to foot Mwjl-xpjp-ab for betamethasone provided and instructed on use 03/29/2017 Appointment: Glory Dalton WPtel: [phone] [place] (30 min) Complex 03/29/2017 Patient Education: Patient Medication Summary Completed 03/29/2017 Patient Education: Obesity Completed 03/29/2017 Appointment: Glory Dalton WPtel: [facility]5 [phone] [place] (30 min) Complex 03/22/2017 Visit Plan: [...] warmth, discharge. 03/17/2017 Appointment: Antoinette Arndt WPtel: [facility] [place] (30 min) Complex 03/17/2017 Patient Education: [...] the break. 01/18/2017 Appointment: Quyen Long WPtel: [address] [place], [place] [address] (15 min) Moderate 01/18/2017 Patient Education: Patient [...] weakness. 10/19/2016 Appointment: Quyen Long WPtel: [phone] [facility] (15 min) Moderate 10/19/2016 Patient Education: Patient Medication Summary Completed 10/19/2016 Patient Education: Obesity Completed 10/19/2016 Visit Plan: Left shoulder pain-hospital f/u recent shoulder surgery with Dr Wilson-doing well-sees Dr Wilson this afternoon for suture removal-pain improved Lohn-xkug-kbvnmia fungal infection-will treat with ket oconazole -follow up in 2 weeks 08/17/2016 Appointment: Glory Dlaton WPtel: [facility]0 [phone] [place] (30 min) Complex 08/17/2016 Patient Education: [...] ambulating. 07/20/2016 Appointment: Quyen Long WPtel: [phone] [facility] (15 min) Moderate 07/20/2016 Patient Education: [...] for strengthening. 04/19/2016 App[facility]ment[phone] (15 min) Moderate 04/19/2016 Patient Education: Patient [...] up appointment. 01/19/2016 Appointment: [phone] (15 min) Moderate 01/19/2016 Patient Education: Patient Medication Summary Completed 01/19/2016 Patient Education: Obesity Completed 01/19/2016 Patient Education: Hypertension Completed 01/19/2016 Referral: Dr Mccauley Referral Completed 11/11/2015 Care Plan: Referral Order SNOMED-CT : [id number] Pending 11/03/2015 Visit Plan: Hypertension - well [...] with injection 10/16/2015 Appointment: Quyen Long [facility]Ptel[facility] (15 min) Moderate 10/16/2015 Patient Education: Patient [...] - 02/19/2015 Appointment: Quyen Long WPtel: [phone] [facility] (15 min) Moderate 02/19/2015 Patient Education: [...] drops. 11/20/2014 Appointment: Quyen Long WPtel: [phone] [facility] Follow up 11/20/2014 Patient Education: Patient [...] ESME. 11/05/2014 Appointment: Quyen Long WPtel: [phone] [facility] (15 min) Moderate 11/05/2014 Patient Education: [...] to participate in activities outside of the prison. He has a family that would like [...] and foot. 09/19/2014 Appointment: Quyen Long WPtel: [address] [place], [place] [address] Follow up 09/19/2014 Patient Education: Patient Medication [...] deficiency - recommended repeat of vitamin d 13309idzdi weekly x 12 weeks and increase vitamin d to 5000 units daily. 07/24/2014 Appointment: Quyen Long WPtel: [facility]5 [facility] Follow up 07/24/2014 Patient Education: Patient [...] B12 level 05/23/2014 Appointment: Glory Dalton WPtel: [facility]5 [phone] Follow up 05/23/2014 Patient Education: Patient Medication Summary Completed 05/23/2014 Patient Education: .Cervicalgia Neck Pain Completed 05/23/2014 Appointment: Quyen Long WPtel: [phone] [facility] Follow up 05/22/2014 Visit Plan: Edema - [...] pressure readings at home. 04/18/2014 Appointment: Quyen Logn WPtel: [phone] [facility] Follow up 04/18/2014 Patient Education: Patient Medication Summary Completed 04/18/2014 Patient Education: Hypertension Completed 04/18/2014 Appointment[facility] [place] [phone] [place] Follow up 02/27/2014 Visit Plan: Insomnia - Pt has been advised to increase the light in the house during the day, and start dimming the lights during the evening hours. Pt has been advised to cut out caffeine after 5pm. Daytime napping worsens night time insomnia. START TRAZODONE AND MONITOR SYMPTOMS. Vitamin D nttqtunpho-dqalfndr-tlffzqge vitamin D 50,000 units weekly for 12 additional weeks. Hypoxemia-continue night time oxygen 02/21/2014 [facility]ment[phone] Follow up 02/21/2014 Patient Education: Patient [...] on mobic. 11/28/2013 Appointment: Quyen Long WPtel: [facility] Follow up 11/28/2013 Patient Education: Patient Medication [...] study. 11/14/2013 Appointment: [phone] New Patient 11/14/2013 Patient Education: Patient Medication Summary Completed 11/14/2013 Referral: Dr Mccauley Referral Appointment Requested Instructions Comment . Rash-left vvlz-wbzbecec-mmcunmodso patient to continue using ketoconazole plus betamethasone equal parts and increase to TID-leave foot open to air as much as possible-follow up in 2 weeks, sooner if needed. culture rash ketoconazole to rash on foot [...] to Dr. Thomas. Edema - compression recommended. KETOCONAZOLE mixed with BETAMETHASONE THREE TIMES DAILY [...] worse. Patient verbalized understanding of plan. . Left shoulder pain-hospital f/u recent shoulder surgery with Dr Wilson-doing well-sees Dr Wilson this afternoon for suture removal-pain improved Kljr-ysns-fzgtfbt fungal infection-will treat with ketoconazole -follow up in 2 weeks . Post polio syndrome - back-up brace [...] antibiotics and dressings to lower leg. . Edema - pt has been advised [...] in blood pressure readings at home. . Hypertension - well controlled - continue [...] to [facility]. prevnar 13 if hasn't had one . [...] deficiency - recommended repeat of vitamin d 81108gukid weekly x 12 weeks and increase vitamin [...] START TRAZODONE AND MONITOR SYMPTOMS. Vitamin D oavshppfjm-cjbcmhqw-abqnfqnq vitamin D 50,000 units weekly for 12 additional weeks. Hypoxemia-continue night time oxygen Your left foot needs air in the evenings for at least a couple of hours -continue dressing changes BID with bactroban ointment Betamethasone to arm/chest twice daily for itching until resolved Continue ketoconazole to face as directed Follow up in 10 days . Cellulitis-left foot-MSSA xqiqssiv-egsqaukmb-cidln air in the evening-continue bactroban ointment twice daily-stop using alcohol on foot-no papertowels or abrasives to foot Nxkt-leun-en for betamethasone provided and instructed on use [...] in one month for weight check. . 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 He has a family that would like [...] hip/thigh, and lower leg and foot. . Tinea pedis-discussed natural expected course of [...] discharge. . pt down one pound . Bronchitis - acute case of bronchitis [...] him to ambulate -will send rx to [facility] . Insomnia - Pt has been advised [...]
--- OUTSIDE RECORDS SUMMARY | 2018-11-10 16:18 | XMS REPORT | CCD ---
Author Author Quyen Long Organization Quyen Long MD, [facility] Address [address] [place] [address] Phone Care Team Providers Care Epic Kaleidoscope Analyst Name Role Phone PP Unavailable CCM Unavailable Summary Purpose Interface Exchange Insurance Providers Payer name Policy type / Coverage type Covered libertarian ID Effective Begin Date Effective End Date WPS Medicare Part B Medicare Part B [id number] 2017 Unknown [facility] Medicare Part B [id number] 2017 Unknown Family history Grandmother Diagnosis Age [...] Description Effective Dates Tobacco history SNOMED CT: 2348827 Former smoker 1.5 pack daily x 45 years 12/27/2017 Marital status Unknown 10/19/2016 Living arrangements Unknown Assisted Living [facility] 04/19/2016 Number of children Unknown 1 son - lives in [place] 11/14/2013 Employment Unknown 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 phone or fax) Vitamin B-12 1,000 mcg/mL injection solution RxNorm: 852259 Milliliter(s) INJECT 1ML MONTHLY 06/15/2018 06/18/2018 Inactive Zithromax Z-Brian 250 mg tablet RxNorm: 257301 1 Tablet(s) PO UD 06/14/2018 No Stop Date Active whitneypack as directed x1 tamsulosin 0.4 mg capsule RxNorm: 285394 TAKE ONE CAPSULE BY MOUTH EVERY EVENING 06/12/2018 01/07/2019 Active gabapentin 300 mg capsule RxNorm: 376547 TAKE ONE CAPSULE BY MOUTH TWICE A DAY 05/31/2018 09/27/2018 Active losartan 50 mg tablet RxNorm: 081931 TAKE ONE TABLET BY MOUTH DAILY 05/01/2018 09/27/2018 Active Toprol XL 50 mg tablet,extended release RxNorm: 909283 1 Tablet(s) PO daily 04/20/2018 No Stop Date Active Vitamin D3 5,000 unit tablet RxNorm: 145373 TAKE ONE TABLET BY MOUTH DAILY 04/05/2018 02/28/2019 Active trazodone 50 mg tablet RxNorm: 974478 TAKE ONE TABLET BY MOUTH AT BEDTIME 02/27/2018 07/26/2018 Active ranitidine 150 mg tablet RxNorm: 629293 1 Tablet(s) PO BID 02/13/2018 02/07/2019 Active hydrochlorothiazide 25 mg tablet RxNorm: 485663 TAKE ONE TABLET BY MOUTH DAILY 02/13/2018 11/09/2018 Active albuterol sulfate 2.5 mg/3 mL (0.083 %) solution for nebulization RxNorm: 110196 3 Milliliter(s) INH UD 02/08/2018 No Stop Date Active please deliver all of his prescriptions thank you cefdinir 300 mg capsule RxNorm: 210880 1 Capsule(s) PO BID 02/08/2018 02/17/2018 Inactive prednisone 20 mg tablet RxNorm: 607553 2 Tablet(s) PO daily 02/08/2018 02/12/2018 Inactive fluticasone 50 mcg/actuation nasal spray,suspension RxNorm: 7690073 1 [place]am NASAL BID 02/07/2018 06/06/2018 Inactive fluticasone 50 mcg/actuation nasal spray,suspension RxNorm: 9348759 1 [place]am NASAL BID 02/07/2018 02/06/2018 Inactive Zithromax Z-Brian 250 mg tablet RxNorm: 333968 1 Tablet(s) PO UD 02/07/2018 03/14/2018 Inactive zpack as directed tamsulosin 0.4 mg capsule RxNorm: 654196 TAKE ONE CAPSULE BY MOUTH EVERY EVENING 01/13/2018 06/11/2018 Inactive cetirizine 10 mg tablet RxNorm: 2984210 TAKE ONE TABLET BY MOUTH EVERY NIGHT AT BEDTIME 01/02/2018 04/01/2018 Inactive Vitamin D3 5,000 unit tablet RxNorm: 393783 TAKE ONE TABLET BY MOUTH DAILY 01/02/2018 04/04/2018 Inactive cetirizine 10 mg tablet RxNorm: 9848294 1 Tablet(s) PO QHS 12/26/2017 01/01/2018 Inactive cetirizine 10 mg tablet RxNorm: 0585335 1 Tablet(s) PO QHS 12/26/2017 12/25/2017 Inactive losartan 50 mg tablet RxNorm: 062970 TAKE ONE TABLET BY MOUTH DAILY (STARTING 09-09-2017) 09/29/2017 03/27/2018 Inactive Request already responded to by other means (e.g. phone or fax) losartan 50 mg tablet RxNorm: 521611 1 Tablet(s) PO daily 09/27/2017 09/26/2017 Inactive losartan 50 mg tablet RxNorm: 613136 1 Tablet(s) PO daily 09/27/2017 09/28/2017 Inactive Bactrim DS 800 mg-160 mg tablet RxNorm: 376603 1 Tablet(s) PO BID 09/13/2017 09/19/2017 Inactive Kenalog 40 mg/mL suspension for injection RxNorm: 8823888 1 Milliliter(s) Inj 09/07/2017 09/07/2017 Inactive trazodone 50 mg tablet RxNorm: 528401 TAKE ONE TABLET BY MOUTH AT BEDTIME 08/16/2017 02/11/2018 Inactive gabapentin 300 mg capsule RxNorm: 766723 1 Capsule(s) PO BID 08/03/2017 01/29/2018 Inactive Vitamin D3 5,000 unit tablet RxNorm: 451152 TAKE ONE TABLET BY MOUTH DAILY 08/01/2017 12/28/2017 Inactive ketoconazole 2 % topical cream RxNorm: 772306 APPLY TO AFFECTED AREA(S) TWO TIMES A DAY 05/31/2017 06/29/2017 Inactive hydrochlorothiazide 25 mg tablet RxNorm: 067650 TAKE ONE TABLET BY MOUTH DAILY 05/16/2017 02/09/2018 Inactive lisinopril 20 mg tablet RxNorm: 180841 TAKE ONE TABLET BY MOUTH DAILY 05/16/2017 09/06/2017 Inactive ketoconazole 2 % topical cream RxNorm: 412509 1 Application TOP BID 03/29/2017 04/11/2017 Inactive apply to faice-deliver to [facility] please betamethasone dipropionate 0.05 % topical ointment RxNorm: 597846 1 Application TOP BID 03/29/2017 04/11/2017 Inactive apply to arm/chests for itching gabapentin 300 mg capsule RxNorm: 420967 1 Capsule(s) PO BID 03/29/2017 08/02/2017 Inactive trazodone 50 mg tablet RxNorm: 928909 TAKE ONE TABLET BY MOUTH AT BEDTIME 03/28/2017 08/15/2017 Inactive Vesicare 10 mg tablet RxNorm: 635320 TAKE ONE TABLET BY MOUTH EVERY NIGHT AT BEDTIME 03/21/2017 12/26/2017 Inactive Vesicare 10 mg tablet RxNorm: 537773 TAKE ONE TABLET BY MOUTH EVERY NIGHT AT BEDTIME 03/21/2017 06/06/2017 Inactive doxycycline hyclate 100 mg capsule RxNorm: 9486700 1 Capsule(s) PO BID 03/18/2017 03/27/2017 Inactive mupirocin 2 % topical ointment RxNorm: 316867 1 Application TOP BID 03/17/2017 No Stop Date Active doxycycline hyclate 100 mg tablet RxNorm: 366372 1 Tablet(s) PO BID 03/09/2017 03/15/2017 Inactive Take probiotic BID while on ABT doxycycline hyclate 100 mg tablet RxNorm: 646780 1 Tablet(s) PO BID 03/09/2017 03/08/2017 Inactive Take probiotic BID while on ABT meloxicam 15 mg tablet RxNorm: 661994 TAKE ONE TABLET BY MOUTH DAILY 02/10/2017 12/06/2017 Inactive Vitamin D3 5,000 unit tablet RxNorm: 227350 TAKE ONE TABLET BY MOUTH DAILY 02/08/2017 07/31/2017 Inactive Vitamin B-12 1,000 mcg/mL injection solution RxNorm: 967131 INJECT 1ML MONTHLY 01/24/2017 07/22/2017 Inactive lisinopril 20 mg tablet RxNorm: 215639 TAKE ONE TABLET BY MOUTH DAILY 12/13/2016 04/11/2017 Inactive trazodone 50 mg tablet RxNorm: 018246 TAKE ONE TABLET BY MOUTH AT BEDTIME 09/24/2016 03/22/2017 Inactive Vitamin D3 5,000 unit tablet RxNorm: 599805 TAKE ONE TABLET BY MOUTH DAILY 09/20/2016 02/07/2017 Inactive lisinopril 20 mg tablet RxNorm: 142372 TAKE ONE TABLET BY MOUTH DAILY 09/13/2016 12/12/2016 Inactive ketoconazole 2 % topical cream RxNorm: 856445 1 Application TOP BID 08/17/2016 08/30/2016 Inactive deliver to [facility] please Pepcid 20 mg tablet RxNorm: 588070 TAKE ONE TABLET BY MOUTH TWICE A DAY 07/12/2016 12/26/2017 Inactive omega-3 acid ethyl esters 1 gram capsule RxNorm: 212260 3 Capsule(s) PO daily 06/18/2016 12/14/2016 Inactive omega-3 acid ethyl esters 1 gram capsule RxNorm: 652074 3 Capsule(s) PO daily 06/18/2016 06/17/2016 Inactive trazodone 50 mg tablet RxNorm: 294340 TAKE ONE TABLET BY MOUTH AT BEDTIME 06/08/2016 08/06/2016 Inactive tamsulosin 0.4 mg capsule RxNorm: 176688 Capsule(s) TAKE ONE CAPSULE BY MOUTH EVERY EVENING 06/04/2016 12/30/2016 Inactive hydrochlorothiazide 25 mg tablet RxNorm: 491959 TAKE ONE TABLET BY MOUTH DAILY 05/10/2016 05/09/2016 Inactive hydrochlorothiazide 25 mg tablet RxNorm: 519017 TAKE ONE TABLET BY MOUTH DAILY 05/10/2016 02/12/2018 Inactive Pepcid 20 mg tablet RxNorm: 140720 1 Tablet(s) PO BID 03/18/2016 03/17/2016 Inactive Pepcid 20 mg tablet RxNorm: 241566 1 Tablet(s) PO BID 03/18/2016 07/11/2016 Inactive lisinopril 20 mg tablet RxNorm: 933673 TAKE ONE TABLET BY MOUTH DAILY 03/18/2016 08/14/2016 Inactive Vitamin D3 5,000 unit tablet RxNorm: 735079 Tablet(s) TAKE ONE TABLET BY MOUTH DAILY 03/18/2016 09/13/2016 Inactive trazodone 50 mg tablet RxNorm: 715561 TAKE ONE TABLET BY MOUTH AT BEDTIME 03/15/2016 06/07/2016 Inactive Vesicare 10 mg tablet RxNorm: 682784 1 Tablet(s) PO QHS 03/15/2016 02/07/2017 Inactive meloxicam 15 mg tablet RxNorm: 593091 TAKE ONE TABLET BY MOUTH DAILY 03/01/2016 01/24/2017 Inactive Bactrim DS 800 mg-160 mg tablet RxNorm: 279849 1 Tablet(s) PO BID 02/10/2016 02/09/2016 Inactive Bactrim DS 800 mg-160 mg tablet RxNorm: 739314 1 Tablet(s) PO BID 02/10/2016 02/16/2016 Inactive Cipro 500 mg tablet RxNorm: 198201 1 Tablet(s) PO BID 02/06/2016 02/09/2016 Inactive Cipro 500 mg tablet RxNorm: 156831 1 Tablet(s) PO BID 02/06/2016 02/05/2016 Inactive Pennsaid 20 mg/gram/actuation (2 %) topical soln in metered- dose pump RxNorm: 2816341 2 pumps TOP BID 01/19/2016 04/19/2016 Inactive tamsulosin 0.4 mg capsule RxNorm: 360251 TAKE ONE CAPSULE BY MOUTH EVERY EVENING 01/12/2016 06/03/2016 Inactive cyanocobalamin (vit B-12) 1,000 mcg/mL injection solution RxNorm: 262689 INJECT 1 ML INTRAMUSCULARLY MONTHLY 01/01/2016 10/26/2016 Inactive Request already responded to by other means (e.g. phone or fax) Vitamin B-12 1,000 mcg/mL injection solution RxNorm: 867573 1 Milliliter(s) Inj monthly 12/24/2015 04/19/2016 Inactive please give syringes for injections Vitamin D3 5,000 unit tablet RxNorm: 773967 TAKE ONE TABLET BY MOUTH DAILY 12/08/2015 03/06/2016 Inactive pantoprazole 40 mg tablet,delayed release RxNorm: 986535 TAKE ONE TABLET BY MOUTH DAILY 12/08/2015 03/17/2016 Inactive trazodone 50 mg tablet RxNorm: 373913 TAKE ONE TABLET BY MOUTH AT BEDTIME 11/10/2015 03/08/2016 Inactive lisinopril 20 mg tablet RxNorm: 989938 TAKE ONE TABLET BY MOUTH DAILY 09/08/2015 03/05/2016 Inactive Vitamin D3 5,000 unit tablet RxNorm: 020168 1 Tablet(s) PO daily 08/12/2015 12/07/2015 Inactive pantoprazole 40 mg tablet,delayed release RxNorm: 602510 1 Tablet(s) PO daily 08/12/2015 12/07/2015 Inactive tamsulosin 0.4 mg capsule RxNorm: 117377 TAKE ONE CAPSULE BY MOUTH EVERY EVENING 07/21/2015 12/17/2015 Inactive trazodone 50 mg tablet RxNorm: 553249 TAKE ONE TABLET BY MOUTH AT BEDTIME 05/09/2015 10/05/2015 Inactive hydrochlorothiazide 25 mg tablet RxNorm: 023436 1 Tablet(s) PO QAM 04/30/2015 04/29/2015 Inactive hydrochlorothiazide 25 mg tablet RxNorm: 889324 TAKE ONE TABLET BY MOUTH DAILY 04/30/2015 02/12/2018 Inactive pantoprazole 40 mg tablet,delayed release RxNorm: 406046 1 Tablet(s) PO daily 04/16/2015 08/11/2015 Inactive meloxicam 15 mg tablet RxNorm: 553819 TAKE ONE TABLET BY MOUTH DAILY 03/03/2015 02/25/2016 Inactive lisinopril 20 mg tablet RxNorm: 919268 1 Tablet(s) PO daily 02/19/2015 09/07/2015 Inactive tamsulosin 0.4 mg capsule RxNorm: 506271 TAKE ONE CAPSULE BY MOUTH EVERY EVENING 01/20/2015 07/18/2015 Inactive cyanocobalamin (vit B-12) 1,000 mcg/mL injection solution RxNorm: 308684 Milliliter(s) INJECT 1ML INTRAMUSCULARLY MONTHLY 12/12/2014 12/22/2014 Inactive trazodone 50 mg tablet RxNorm: 871083 TAKE ONE TABLET BY MOUTH AT BEDTIME 11/14/2014 05/08/2015 Inactive erythromycin 5 mg/gram (0.5 %) eye ointment RxNorm: 443153 1/2 inch OPH QID 11/05/2014 11/14/2014 Inactive acyclovir 800 mg tablet RxNorm: 630847 1 Tablet(s) PO TID 11/05/2014 11/18/2014 Inactive Zofran 4 mg tablet RxNorm: 986761 1 Tablet(s) PO Q4H as needed nausea 11/05/2014 01/03/2015 Inactive Duragesic 12 mcg/hr transdermal patch RxNorm: 667621 1 Patch TD Q72H 11/05/2014 02/04/2015 Inactive Imitrex 100 mg tablet RxNorm: 855888 1 Tablet(s) PO q 12 hours 11/04/2014 04/15/2015 Inactive naproxen 500 mg tablet RxNorm: 066611 1 Tablet(s) PO BID 10/30/2014 11/01/2014 Inactive meloxicam 15 mg tablet RxNorm: 537433 TAKE ONE TABLET BY MOUTH DAILY 10/04/2014 03/02/2015 Inactive Vesicare 5 mg tablet RxNorm: 940181 TAKE ONE TABLET BY MOUTH AT BEDTIME 09/16/2014 07/16/2015 Inactive Vitamin D2 50,000 unit capsule RxNorm: 179388 1 Capsule(s) PO QW 09/06/2014 07/16/2015 Inactive once weekly x 12 weeks tamsulosin ER 0.4 mg capsule,extended release 24 hr RxNorm: 582646 TAKE ONE CAPSULE BY MOUTH EVERY EVENING 06/24/2014 12/20/2014 Inactive tamsulosin ER 0.4 mg capsule,extended release 24 hr RxNorm: 908584 1 Capsule(s) PO QPM 06/24/2014 01/19/2015 Inactive Vitamin D2 50,000 unit capsule RxNorm: 302984 1 Capsule(s) PO QW 05/27/2014 09/05/2014 Inactive once weekly x 12 weeks Vesicare 5 mg tablet RxNorm: 625822 1 Tablet(s) PO QHS 05/23/2014 05/22/2014 Inactive Vesicare 5 mg tablet RxNorm: 342125 1 Tablet(s) PO QHS 05/23/2014 09/15/2014 Inactive trazodone 50 mg tablet RxNorm: 641274 TAKE ONE TABLET BY MOUTH AT BEDTIME 05/13/2014 11/08/2014 Inactive trazodone 50 mg tablet RxNorm: 898676 TAKE ONE TABLET BY MOUTH AT BEDTIME 05/13/2014 11/08/2014 Inactive hydrochlorothiazide 25 mg tablet RxNorm: 443761 1 Tablet(s) PO [facility] 04/18/2014 01/12/2015 Inactive Vitamin D2 50,000 unit capsule RxNorm: 407789 TAKE ONE CAPSULE BY MOUTH ONCE WEEKLY FOR 12 WEEKS 04/09/2014 05/14/2014 Inactive trazodone 50 mg tablet RxNorm: 040462 1 Tablet(s) PO QHS 02/22/2014 05/12/2014 Inactive trazodone 50 mg tablet RxNorm: 460815 1 Tablet(s) PO QHS 02/22/2014 02/21/2014 Inactive Vitamin D2 50,000 unit capsule RxNorm: 726362 TAKE ONE CAPSULE BY MOUTH ONCE WEEKLY FOR 12 WEEKS 02/07/2014 03/06/2014 Inactive meloxicam 15 mg tablet RxNorm: 823823 TAKE ONE TABLET BY MOUTH ONCE A DAY 02/07/2014 08/05/2014 Inactive meloxicam 15 mg tablet RxNorm: 227973 TAKE ONE TABLET BY MOUTH ONCE A DAY 02/07/2014 2014 Inactive clotrimazole 1 % topical cream RxNorm: 481736 1 Application TOP BID 12/25/2013 07/16/2015 Inactive Diflucan 150 mg tablet RxNorm: 872197 1 Tablet(s) PO daily 12/25/2013 12/31/2013 Inactive tamsulosin ER 0.4 mg capsule,extended release 24 hr RxNorm: 825035 1 Capsule(s) PO QPM 11/28/2013 06/23/2014 Inactive cyanocobalamin (vit B-12) 1,000 mcg/mL injection solution RxNorm: 280718 1 Milliliter(s) Inj 11/28/2013 12/12/2014 Inactive Vitamin B-12 1,000 mcg/mL injection solution RxNorm: 199011 1 Milliliter(s) Inj monthly 11/21/2013 02/13/2015 Inactive please give syringes for injections Vitamin D2 50,000 unit capsule RxNorm: 585227 1 Capsule(s) PO QW x 12 weeks 11/21/2013 02/06/2014 Inactive [SAVINGS FOR UNINSURED PATIENTS -- to take addtional 2000 units daily Vitamin B-12 1,000 mcg/mL injection solution RxNorm: 889236 1 Milliliter(s) Inj monthly 11/21/2013 11/20/2013 Inactive meloxicam 15 mg tablet RxNorm: 687601 1 Tablet(s) PO daily 11/20/2013 11/19/2013 Inactive [SAVINGS FOR UNINSURED PATIENTS -- BIN:[id number], PCN: [id number], Group: [id number], ID# [id number], Process claim through [employer], for questions: . THIS IS NOT INSURANCE.] meloxicam 15 mg tablet RxNorm: 551509 1 Tablet(s) PO daily 11/20/2013 02/06/2014 Inactive [SAVINGS FOR UNINSURED PATIENTS -- BIN:387633, PCN: [id number], Group: [id number], ID# [id number], Process claim through [employer], for questions: . THIS IS NOT INSURANCE.] meloxicam 15 mg tablet RxNorm: 520714 1 Tablet(s) PO daily 11/20/2013 11/19/2013 Inactive Voltaren 1 % topical gel RxNorm: 864307 4 Application TOP QID apply to back, affected joints four times daily 11/14/2013 11/20/2013 Inactive trazodone 50 mg tablet RxNorm: 135319 1 Tablet(s) PO QHS No Start Date Active Vitamin D2 50,000 unit capsule RxNorm: 130290 1 Capsule(s) PO QW No Start Date 05/26/2014 Inactive once weekly x 12 weeks Zithromax Z-Brian 250 mg tablet RxNorm: 908499 1 Tablet(s) PO UD No Start Date 02/06/2018 Inactive Vitamin D2 50,000 unit capsule RxNorm: 647509 1 Capsule(s) PO QW No Start Date 11/20/2013 Inactive gabapentin 300 mg capsule RxNorm: 606721 1 Capsule(s) PO TID No Start Date 03/28/2017 Inactive Vesicare 10 mg tablet RxNorm: 864237 1 Tablet(s) PO QHS No Start Date 03/14/2016 Inactive Toprol XL 25 mg tablet,extended release RxNorm: 566979 1 Tablet(s) PO daily No Start Date 04/19/2018 Inactive Vitamin D3 5,000 unit tablet RxNorm: 055164 1 Tablet(s) PO daily No Start Date 08/11/2015 Inactive Celebrex 200 mg capsule RxNorm: 651620 1 Capsule(s) PO BID No Start Date 07/19/2016 Inactive Imitrex 50 mg tablet RxNorm: 586807 1 Tablet(s) PO now and may repeat up to four times in 24 hours No Start Date 11/03/2014 Inactive Zofran 4 mg tablet RxNorm: 409047 1 Tablet(s) PO Q8 as needed nausea and vomitting No Start Date 10/15/2015 Inactive ranitidine 150 mg tablet RxNorm: 567864 1 Tablet(s) PO BID No Start Date 02/12/2018 Inactive Phenergan 25 mg tablet RxNorm: 382712 1 Tablet(s) PO now No Start Date 04/15/2015 Inactive Tums oral RxNorm: 846675 oral No Start Date 10/15/2015 Inactive Medication Administered Medication Codes Instructions Start Date Status Kenalog 40 mg/mL suspension for injection RxNorm: 0070762 1Milliliter 09/07/2017 No longer Active cyanocobalamin (vit B-12) 1,000 mcg/mL injection solution RxNorm: 393308 1Milliliter 11/28/2013 No longer Active Immunizations Vaccine [...] Visit Reason For Visit Effective Dates Notes shoulder pain 04/20/2018 left leg gait abnormality [...] recently went to an eye doctor in [place]. Reports that he did have hemorrhaging in his right eye which is getting better. headache 04/18/2014 Pt states he recently went to an eye doctor in [place] shortness of breath 02/21/2014 blisters 12/25/2013 insomnia 11/28/2013 back pain 11/14/2013 Results Observation Observation Code Item Item Code Result Date Vitamin D 25 Oh Lor1543 VITAMIN D, 25 HYDROXY 66.80 ng/mL 03/14/2018 [...] 28.5 pg 03/14/2018 Cbc With Differential Ord2 [place]% 7.6 % 03/14/2018 Cbc With Differential Ord2 MCHC 31.8 pg 03/14/2018 Cbc With Differential Ord2 Eos% 3.4 % 03/14/2018 Cbc With Differential Ord2 PLT 169 K/ul 03/14/2018 Cbc With Differential Ord2 Baso% 0.2 % 03/14/2018 Cbc With Differential Ord2 Neut ABS# 3.72 K/ul 03/14/2018 Cbc With Differential Ord2 RDW 14.9 % 03/14/2018 Cbc With Differential Ord2 Lymph ABS# 1.28 K/ul 03/14/2018 Cbc With Differential Ord2 [place] ABS# 0.4 K/ul 03/14/2018 Cbc With Differential [...] Lipid Ord30 C/HDL 5.0 Ratio 06/27/2017 %Hba1C Luz431 % HbA1c 26349- 6 6.2 % 06/27/2017 %Hba1C Anx603 Gluc Ave 131 mg/dL 06/27/2017 Comp Metabolic Jrn480 NA 140 mEq/L 06/27/2017 Comp Metabolic Jcc522 K 4.2 mEq/L 06/27/2017 Comp Metabolic Pyo228 CL 100 mEq/L 06/27/2017 Comp Metabolic Cva938 CO2 32.0 mEq/L 06/27/2017 Comp Metabolic Xrr823 ANION GAP 12 06/27/2017 Comp Metabolic Ukt659 GLUCOSE 118 mg/dL 06/27/2017 Comp Metabolic Yvt453 Creat 1.0 mg/dL 06/27/2017 Comp Metabolic Wil837 eGFR 82 ml/min/1.73m2 06/27/2017 Comp Metabolic Gma216 BUN 26 mg/dL 06/27/2017 Comp Metabolic Jfw867 B/C Ratio 27.1 Ratio 06/27/2017 Comp Metabolic Owx108 CALCIUM 9.6 mg/dL 06/27/2017 Comp Metabolic Oan384 ALK PHOS 46 U/L 06/27/2017 Comp Metabolic Xkf392 AST(SGOT) 23 U/L 06/27/2017 Comp Metabolic Axj180 ALT(SGPT) 31 U/L 06/27/2017 Comp Metabolic Iyk730 BILI T 0.5 mg/dL 06/27/2017 Comp Metabolic Muz006 ALBUMIN 4.2 g/dL 06/27/2017 Comp Metabolic Suy829 TPRO 6.6 g/dL 06/27/2017 Comp Metabolic Zll769 GLOB 2.4 g/dL 06/27/2017 Comp Metabolic Wqn226 A/G Ratio 1.7 Ratio 06/27/2017 Comp Metabolic Cku988 Osmo 285 mOsmo 06/27/2017 Cbc With Differential [...] 89.6 fl 10/20/2016 Cbc With Differential Ord2 MCH 29.0 pg 10/20/2016 Cbc With Differential Ord2 [place]% 9.0 % 10/20/2016 Cbc With Differential Ord2 Eos% 4.4 % 10/20/2016 Cbc With Differential Ord2 MCHC 32.3 pg 10/20/2016 Cbc With Differential Ord2 Baso% 0.4 % 10/20/2016 Cbc With Differential Ord2 PLT 156 K/ul 10/20/2016 Cbc With Differential Ord2 RDW 14.4 % 10/20/2016 Cbc With Differential Ord2 Neut ABS# 2.58 K/ul 10/20/2016 Cbc With Differential Ord2 Lymph ABS# 1.33 K/ul 10/20/2016 Cbc With Differential Ord2 [place] ABS# 0.4 K/ul 10/20/2016 Cbc With Differential Ord2 Eos ABS# 0.2 K/ul 10/20/2016 Cbc With Differential Ord2 Baso ABS# 0.0 K/ul 10/20/2016 Comp Metabolic Mbv017 NA 143 mEq/L 10/20/2016 Comp Metabolic Tjr533 K 4.6 mEq/L 10/20/2016 Comp Metabolic Qsm167 CL 104 mEq/L 10/20/2016 Comp Metabolic Qyk709 CO2 31.0 mEq/L 10/20/2016 Comp Metabolic Qjx073 ANION GAP 13 10/20/2016 Comp Metabolic Mpu575 GLUCOSE 117 mg/dL 10/20/2016 Comp Metabolic Loy522 Creat 1.1 mg/dL 10/20/2016 Comp Metabolic Mwr423 eGFR 74 ml/min/1.73m2 10/20/2016 Comp Metabolic Ert041 BUN 27 mg/dL 10/20/2016 Comp Metabolic Zig764 B/C Ratio 25.7 Ratio 10/20/2016 Comp Metabolic Odz808 CALCIUM 9.3 mg/dL 10/20/2016 Comp Metabolic Bwm466 ALK PHOS 47 U/L 10/20/2016 Comp Metabolic Aeo642 AST(SGOT) 18 U/L 10/20/2016 Comp Metabolic Yuw701 ALT(SGPT) 22 U/L 10/20/2016 Comp Metabolic Bdx034 BILI T 0.5 mg/dL 10/20/2016 Comp Metabolic Hjo111 ALBUMIN 3.9 g/dL 10/20/2016 Comp Metabolic Dmu268 TPRO 6.5 g/dL 10/20/2016 Comp Metabolic Xnk837 GLOB 2.6 g/dL 10/20/2016 Comp Metabolic Njz123 A/G Ratio 1.5 Ratio 10/20/2016 Comp Metabolic Ceq580 Osmo 291 mOsmo 10/20/2016 Tsh Ord6 hTSH II 1.56 uIU/mL 10/20/2016 Lipid Ord30 CHOL 153 mg/dL 10/20/2016 Lipid Ord30 HDL 34.0 mg/dl 10/20/2016 Lipid Ord30 TRIG 123 mg/dL 10/20/2016 Lipid Ord30 LDL 94 mg/dL 10/20/2016 Lipid Ord30 C/HDL 4.5 Ratio 10/20/2016 B12 Ihg775 B12 544.00 pg/ml 10/20/2016 Comp Metabolic Njd712 NA 138 mEq/L 05/13/2016 Comp Metabolic Rxi322 K 4.2 mEq/L 05/13/2016 Comp Metabolic Ijy291 CL 102 mEq/L 05/13/2016 Comp Metabolic Mvb076 CO2 30.0 mEq/L 05/13/2016 Comp Metabolic Lvh929 ANION GAP 10 05/13/2016 Comp Metabolic Dut407 GLUCOSE 113 mg/dL 05/13/2016 Comp Metabolic Zbz135 Creat 1.0 mg/dL 05/13/2016 Comp Metabolic Xgu408 eGFR 77 ml/min/1.73m2 05/13/2016 Comp Metabolic Tgd233 BUN 26 mg/dL 05/13/2016 Comp Metabolic Fhr928 B/C Ratio 25.5 Ratio 05/13/2016 Comp Metabolic Hke215 CALCIUM 9.7 mg/dL 05/13/2016 Comp Metabolic Cmw340 ALK PHOS 51 U/L 05/13/2016 Comp Metabolic Exn942 AST(SGOT) 17 U/L 05/13/2016 Comp Metabolic Mlp733 ALT(SGPT) 20 U/L 05/13/2016 Comp Metabolic Bxv864 BILI T 0.6 mg/dL 05/13/2016 Comp Metabolic Rav274 ALBUMIN 4.0 g/dL 05/13/2016 Comp Metabolic Vvh561 TPRO 6.6 g/dL 05/13/2016 Comp Metabolic Neh755 GLOB 2.6 g/dL 05/13/2016 Comp Metabolic Cyp674 A/G Ratio 1.6 Ratio 05/13/2016 Comp Metabolic Blm764 Osmo 281 mOsmo 05/13/2016 Lipid Ord30 CHOL [...] 89.0 fl 02/11/2016 Cbc With Differential Ord2 [place]% 7.7 % 02/11/2016 Cbc With Differential Ord2 MCH 29.3 pg 02/11/2016 Cbc With Differential Ord2 Eos% [...] 1.18 K/ul 02/11/2016 Cbc With Differential Ord2 [place] ABS# 0.4 K/ul 02/11/2016 Cbc With Differential Ord2 Eos ABS# 0.1 K/ul 02/11/2016 Cbc With Differential Ord2 Baso ABS# 0.0 K/ul 02/11/2016 Comp Metabolic Afl168 NA 138 mEq/L 02/11/2016 Comp Metabolic Hin707 K 4.0 mEq/L 02/11/2016 Comp Metabolic Qbb397 CL 97 mEq/L 02/11/2016 Comp Metabolic Qxx223 CO2 32.0 mEq/L 02/11/2016 Comp Metabolic Jqt306 ANION GAP 13 02/11/2016 Comp Metabolic Vyu803 GLUCOSE 117 mg/dL 02/11/2016 Comp Metabolic Yab326 Creat 1.0 mg/dL 02/11/2016 Comp Metabolic Vrk641 eGFR 81 ml/min/1.73m2 02/11/2016 Comp Metabolic Dwb262 BUN 21 mg/dL 02/11/2016 Comp Metabolic Qqx248 B/C Ratio 21.4 Ratio 02/11/2016 Comp Metabolic Etg670 CALCIUM 9.2 mg/dL 02/11/2016 Comp Metabolic Iex097 ALK PHOS 48 U/L 02/11/2016 Comp Metabolic Uni698 AST(SGOT) 18 U/L 02/11/2016 Comp Metabolic Ihx819 ALT(SGPT) 22 U/L 02/11/2016 Comp Metabolic Crr646 BILI T 0.5 mg/dL 02/11/2016 Comp Metabolic Zrg295 ALBUMIN 3.9 g/dL 02/11/2016 Comp Metabolic Oyp831 TPRO 6.3 g/dL 02/11/2016 Comp Metabolic Jdq023 GLOB 2.5 g/dL 02/11/2016 Comp Metabolic Dms471 A/G Ratio 1.6 Ratio 02/11/2016 Comp Metabolic Lib287 Osmo 280 mOsmo 02/11/2016 Lipid Ord30 CHOL 163 mg/dL 02/11/2016 Lipid Ord30 HDL 35.0 mg/dl 02/11/2016 Lipid Ord30 TRIG 200 mg/dL 02/11/2016 Lipid Ord30 LDL 88 mg/dL 02/11/2016 Lipid Ord30 C/HDL 4.7 Ratio 02/11/2016 %Hba1C Oqm920 % HbA1c 57233- 6 6.5 % 02/11/2016 %Hba1C Qar794 Gluc Ave 140 mg/dL 02/11/2016 Tsh Ord6 hTSH II 2.07 uIU/mL 02/11/2016 B12 Alk100 B12 563.00 pg/ml 02/11/2016 Culture Urine [id number] URINE CULTURE SEE NOTES 02/10/2016 Culture Urine [id number] Continued Results 02/10/2016 Urine Culture Ucult Complete [...] U-VOL VOLUME SUFFICIENT (10mL) 11/04/2015 Urinalysis Ord28 U-Com No culture indicated, Urine saved if culture needed (specimen acceptable for 48 hours from collection if refrigerated) 11/04/2015 Urinalysis Ord28 U-Yeast NEGATIVE 11/04/2015 %Hba1C Ilp279 % HbA1c 40096- 6 6.4 % 04/16/2015 %Hba1C Xuu457 Gluc Ave 137 mg/dL 04/16/2015 Tsh Ord6 hTSH II 3.33 uIU/mL 02/07/2015 Comp Metabolic Zjb629 NA 136 mEq/L 02/07/2015 Comp Metabolic Ejt230 K 3.9 mEq/L 02/07/2015 Comp Metabolic Shi735 CL 98 mEq/L 02/07/2015 Comp Metabolic Uwa197 CO2 31.0 mEq/L 02/07/2015 Comp Metabolic Pem718 ANION GAP 11 02/07/2015 Comp Metabolic Xge489 GLUCOSE 139 mg/dL 02/07/2015 Comp Metabolic Ksl119 Creat 0.9 mg/dL 02/07/2015 Comp Metabolic Zyo265 eGFR 87 ml/min/1.73m2 02/07/2015 Comp Metabolic Irq453 BUN 20 mg/dL 02/07/2015 Comp Metabolic Xoj981 B/C Ratio 21.7 Ratio 02/07/2015 Comp Metabolic Xzv144 CALCIUM 9.7 mg/dL 02/07/2015 Comp Metabolic Srt796 ALK PHOS 55 U/L 02/07/2015 Comp Metabolic Qpx525 AST(SGOT) 20 U/L 02/07/2015 Comp Metabolic Gwm290 ALT(SGPT) 27 U/L 02/07/2015 Comp Metabolic Wgm223 BILI T 0.5 mg/dL 02/07/2015 Comp Metabolic Bny231 ALBUMIN 4.3 g/dL 02/07/2015 Comp Metabolic Ybh438 TPRO 6.9 g/dL 02/07/2015 Comp Metabolic Ajg593 GLOB 2.6 g/dL 02/07/2015 Comp Metabolic Rsy924 A/G Ratio 1.7 Ratio 02/07/2015 Comp Metabolic Udn202 Osmo 277 mOsmo 02/07/2015 Cbc With Differential [...] Ord2 RDW 14.8 % 02/07/2015 A1C HPLC [id number] A1C HPLC 96555-6 6.0 % 05/23/2014 VIT B 12 [id number] VIT B 12 479 PG/ML 05/23/2014 VIT D TOTL [id number] VIT D TOTL 29 NG/ML 05/23/2014 Review of Systems System Result Effective Dates Constitutional No recent illness 04/20/2018 Constitutional No [...] None Full Exam - General 1995 Ears/Nose/Throat otoscopic exam Tympanic membrane: air-fluid level [...] asymmetric 11/28/2013 None Full Exam - General 1995 Musculoskeletal gait and station Gait: abnormal stride length 11/28/2013 None Full Exam - General 1994 Musculoskeletal gait and station Gait: abnormal heel strike 11/28/2013 None Full Exam - General 1995 [...] palpation 11/14/2013 None Full Exam - General 1995 [...] 4: G0439 12/27/2017 THER/PROPH/DIAG INJ SC/IM CPT-4: 97618 09/07/2017 TRIAMCINOLONE ACET INJ NOS CPT-4: J3301 09/07/2017 ROUTINE VENIPUNCTURE CPT- 4: 86142 05/23/2014 THER/PROPH/DIAG INJ SC/IM CPT-4: 78332 11/28/2013 VITAMIN B12 INJECTION CPT- 4: J3420 11/28/2013 Vital Signs Date Vital 04/20/2018 Blood Pressure 1: 126/74 Code: 8480-6 BMI: 36.6 Code: 59668-6 Heart Rate 1: 60 bpm Height: 6' SpO2: 94% Weight: 270 lbs 03/21/2018 Blood Pressure 1: 138/74 Code: 8480-6 BMI: 36.8 Code: 87600-4 Heart Rate 1: 81 bpm Height: 6' SpO2: 98% Weight: 271 lbs 02/08/2018 Blood Pressure 1: 132/74 Code: 8480-6 BMI: 37.0 Code: 79028-5 Heart Rate 1: 82 bpm Height: 6' SpO2: 97% Weight: 273 lbs 12/27/2017 Blood Pressure 1: 148/78 Code: 8480-6 BMI: 36.3 Code: 64826-6 Heart Rate 1: 78 bpm Height: 6' SpO2: 93% Waist Measure (cm): 117 cm Weight: 268 lbs 12/06/2017 Blood Pressure 1: 122/70 Code: 8480-6 BMI: 36.6 Code: 97098-9 Heart Rate 1: 76 bpm Height: 6' SpO2: 93% Weight: 270 lbs 11/01/2017 BMI: 36.9 Code: 76790-8 Height: 6' Weight: 272 lbs 09/07/2017 Blood Pressure 1: 140/78 Code: 8480-6 BMI: 35.8 Code: 05610-3 Heart Rate 1: 76 bpm Height: 6' SpO2: 98% Weight: 264 lbs 06/07/2017 Blood Pressure 1: 138/86 Code: 8480-6 BMI: 36.3 Code: 49128-9 Heart Rate 1: 66 bpm Height: 6' SpO2: 95% Weight: 268 lbs 05/19/2017 Blood Pressure 1: 152/84 Code: 8480-6 BMI: 36.8 Code: 04373-4 Heart Rate 1: 70 bpm Height: 6' SpO2: 93% Weight: 271 lbs 05/09/2017 Blood Pressure 1: 138/76 Code: 8480-6 BMI: 36.6 Code: 07607-3 Heart Rate 1: 79 bpm Height: 6' SpO2: 93% Weight: 270 lbs 04/25/2017 Blood Pressure 1: 150/80 Code: 8480-6 Heart Rate 1: 58 bpm Height: SpO2: 94% Weight: 2017 Blood Pressure 1: 138/80 Code: 8480-6 BMI: 36.5 Code: 96742-9 Heart Rate 1: 76 bpm Height: 6' SpO2: 96% Weight: 269 lbs 03/29/2017 Blood Pressure 1: 118/68 Code: 8480-6 BMI: 36.9 Code: 36655-0 Heart Rate 1: 61 bpm Height: 6' SpO2: 95% Weight: 272 lbs 03/17/2017 Blood Pressure 1: 140/78 Code: 8480-6 BMI: 36.8 Code: 59936-3 Heart Rate 1: 91 bpm Height: 6' SpO2: 93% Weight: 271 lbs 03/08/2017 Blood Pressure 1: 152/84 Code: 8480-6 BMI: 36.8 Code: 97218-0 Heart Rate 1: 72 bpm Height: 6' SpO2: 92% Temperature: 36.6 (C) / 97.8 (F) Weight: 271 lbs 02/17/2017 Blood Pressure 1: 110/64 Code: 8480-6 BMI: 36.5 Code: 25227-5 Heart Rate 1: 62 bpm Height: 6' SpO2: 96% Weight: 269 lbs 01/18/2017 Blood Pressure 1: 140/80 Code: 8480-6 BMI: 36.5 Code: 29286-0 Heart Rate 1: 62 bpm Height: 6' SpO2: 94% Weight: 269 lbs 10/19/2016 Blood Pressure 1: 120/80 Code: 8480-6 BMI: 35.9 Code: 75746-3 Heart Rate 1: 64 bpm Height: 6' SpO2: 97% Weight: 265 lbs 08/17/2016 Blood Pressure 1: 112/76 Code: 8480-6 BMI: 36.1 Code: 86445-0 Heart Rate 1: 65 bpm Height: 6' SpO2: 97% Weight: 266 lbs 07/20/2016 Blood Pressure 1: 126/78 Code: 8480-6 BMI: 35.5 Code: 36612-0 Heart Rate 1: 60 bpm Height: 6' SpO2: 95% Weight: 262 lbs 04/19/2016 Blood Pressure 1: 132/78 Code: 8480-6 BMI: 35.1 Code: 16525-8 Heart Rate 1: 65 bpm Height: 6' SpO2: 98% Weight: 259 lbs 01/19/2016 Blood Pressure 1: 140/64 Code: 8480-6 BMI: 34.4 Code: 46620-5 Heart Rate 1: 61 bpm Height: 6' SpO2: 97% Weight: 254 lbs 10/16/2015 Blood Pressure 1: 108/66 Code: 8480-6 BMI: 35.3 Code: 75942-0 Heart Rate 1: 65 bpm Height: 6' SpO2: 96% Weight: 260 lbs 07/17/2015 Blood Pressure 1: 136/74 Code: 8480-6 BMI: 35.8 Code: 33637-7 Heart Rate 1: 59 bpm Height: 6' SpO2: 97% Weight: 263 lbs 13 07/03/2015 Weight: 265 lbs 04/16/2015 Blood Pressure 1: 130/82 Code: 8480-6 BMI: 36.1 Code: 81063-9 Heart Rate 1: 7694 bpm Height: 6' SpO2: 94% Weight: 266 lbs 02/19/2015 Blood Pressure 1: 160/90 Code: 8480-6 BMI: 35.8 Code: 10214-5 Heart Rate 1: 78 bpm Height: 6' SpO2: 94% Weight: 264 lbs 11/20/2014 Blood Pressure 1: 140/96 Code: 8480-6 BMI: 34.6 Code: 28438-4 Heart Rate 1: 92 bpm Height: 6' SpO2: 95% Weight: 255 lbs 11/05/2014 Blood Pressure 1: 132/70 Code: 8480-6 BMI: 34.6 Code: 49101-8 Heart Rate 1: 96 bpm Height: 6' SpO2: 98% Weight: 255 lbs 09/19/2014 Blood Pressure 1: 152/86 Code: 8480-6 BMI: 35.8 Code: 88840-5 Heart Rate 1: 82 bpm Height: 6' SpO2: 95% Weight: 264 lbs 07/24/2014 Blood Pressure 1: 142/82 Code: 8480-6 BMI: 34.7 Code: 46646-9 Heart Rate 1: 72 bpm Height: 6' Weight: 256 lbs 05/23/2014 Blood Pressure 1: 150/82 Code: 8480-6 BMI: 33.4 Code: 58949-3 Heart Rate 1: 68 bpm Height: 6' Weight: 246 lbs 04/18/2014 Blood Pressure 1: 132/84 Code: 8480-6 BMI: 33.2 Code: 13857-8 Heart Rate 1: 80 bpm Height: 6' Weight: 245 lbs 02/21/2014 Blood Pressure 1: 138/82 Code: 8480-6 BMI: 32.4 Code: 70428-0 Heart Rate 1: 85 bpm Height: 6' SpO2: 98% Weight: 239 lbs 12/25/2013 Blood Pressure 1: 146/80 Code: 8480-6 BMI: 30.5 Code: 93305-0 Heart Rate 1: 100 bpm Height: 6' Weight: 225 lbs 11/28/2013 Blood Pressure 1: 120/64 Code: 8480-6 BMI: 30.4 Code: 16259-8 Heart Rate 1: 68 bpm Height: 6' Weight: 224 lbs 11/14/2013 Blood Pressure 1: 124/80 Code: 8480-6 BMI: 30.0 Code: 23021-7 Heart Rate 1: 76 bpm Height: 6' Weight: 221 lbs Functional Status No Functional Status data History of Present Illness Symptom Name Status Result Effective Date Notes shoulder pain Location diffusely 04/20/2018 None shoulder [...] Maxitrol and Polytrim seeing eye dr in [place]. Reports eye still feels irritated. headache Quality [...] Maxitrol and Polytrim seeing eye dr in [place]. Reports eye still feels irritated. headache Quality [...] data Encounters Encounter Performer Location Codes Date ([id number]) 85756 EST. 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 PATIENT, LEVEL III Diagnosis: Acute bronchitis due to other specified organisms[ICD10: J20.8] Antoinette Long MD, [facility] CPT-4: 18924 02/08/2018 ([id number]) 30051 EST. 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 PATIENT, LEVEL III Diagnosis: Essential (primary) hypertension[ICD10: I10] Diagnosis: Localized edema[ICD10: R60.0] Diagnosis: Cellulitis of left lower limb[ICD10: L03.116] Quyen Long MD, [facility] CPT-4: 17331 06/07/2017 ([id number]) 60740 EST. 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 PATIENT, LEVEL II Diagnosis: Rash and other nonspecific skin eruption[ICD10: R21] Glory Long MD, [facility] CPT-4: 86546 05/09/2017 ([id number]) 35736 EST. PATIENT, LEVEL II Diagnosis: Rash and other nonspecific skin eruption[ICD10: R21] Glory Long MD [facility] CPT-4: 90335 04/25/2017 ([id number]) 76770 EST. PATIENT, LEVEL III Diagnosis: Cellulitis of left lower limb[ICD10: L03.116] Diagnosis: Rash and other nonspecific skin eruption[ICD10: R21] Glory Long MD, [facility] CPT-4: 51474 2017 ([id number]) 86261 EST. PATIENT, LEVEL III Diagnosis: Cellulitis of left lower limb[ICD10: L03.116] Diagnosis: Rash and other nonspecific skin eruption[ICD10: R21] Glory Long MD, [facility] CPT-4: 31348 03/29/2017 61456 EST. PATIENT, LEVEL IV Diagnosis: Cellulitis of left lower limb[ICD10: L03.116] Antoinette Long MD, [facility] CPT-4: 76514 03/17/2017 ([id number]) 76302 EST. PATIENT, LEVEL III Diagnosis: Rash and other nonspecific skin eruption[ICD10: R21] Glory Long MD, [facility] CPT-4: 49901 03/08/2017 82211 EST. PATIENT, LEVEL IV Diagnosis: Essential (primary) hypertension[ICD10: I10] Diagnosis: Muscle weakness (generalized)[ICD10: M62.81] Diagnosis: Body mass index (BMI) 36.0-36.9, adult[ICD10: Z68.36] Diagnosis: Family history of ischemic heart disease and other diseases of the circulatory system[ICD10: Z82.49] Antoinette Long MD, [facility] CPT-4: 61777 02/17/2017 ([id number]) 85320 EST. PATIENT, LEVEL IV Diagnosis: Essential (primary) hypertension[ICD10: I10] Diagnosis: Muscle weakness (generalized)[ICD10: M62.81] Quyen Long MD, [facility] CPT-4: 47380 01/18/2017 ([id number]) 78011 EST. 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 PATIENT, LEVEL III Diagnosis: Pain in left shoulder[ICD10: M25.512] Diagnosis: Rash and other nonspecific skin eruption[ICD10: R21] Glory Long MD, [facility] CPT-4: 96173 08/17/2016 ([id number]) 18841 EST. PATIENT, LEVEL IV Diagnosis: Essential (primary) hypertension[ICD10: I10] Diagnosis: Pain in left shoulder[ICD10: M25.512] Quyen Long MD, [facility] CPT-4: 84650 07/20/2016 ([id number]) 53900 EST. 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 PATIENT, LEVEL IV Diagnosis: Essential (primary) hypertension[ICD10: I10] Diagnosis: Other abnormal glucose[ICD10: R73.09] Diagnosis: Gastro-esophageal reflux disease without esophagitis[ICD10: K21.9] Diagnosis: Obesity, unspecified[ICD10: E66.9] Quyen Long MD, [facility] CPT- 4: 37653 04/16/2015 ([id number]) 42103 EST. PATIENT, LEVEL IV Diagnosis: ESSENTIAL HYPERTENSION[ICD9: 401.9] Diagnosis: OBESITY[ICD9: 278.00] Diagnosis: Post-polio limb muscle weakness[ICD9: 728.87] Quyen Long MD, [facility] CPT-4: 42970 02/19/2015 ([id number]) 04225 EST. PATIENT, LEVEL IV Diagnosis: Shingles outbreak[ICD9: 053.9] Diagnosis: ESSENTIAL HYPERTENSION[ICD9: 401.9] Diagnosis: Earache[ICD9: 388.70] Quyen Long MD, [facility] CPT-4: 32212 11/20/2014 ([id number]) 97829 EST. PATIENT, LEVEL III Diagnosis: Shingles outbreak[ICD9: 053.9] Diagnosis: Face pain[ICD9: 784.0] Diagnosis: Pain, eye, right[ICD9: 379.91] Quyen Long MD, [facility] CPT-4: 52128 11/05/2014 ([id number]) 17607 EST. PATIENT, LEVEL V Diagnosis: Post-polio limb muscle weakness[ICD9: 728.87] Diagnosis: Post-polio syndrome[ICD9: 138] Diagnosis: Leg weakness[ICD9: 729.89] Diagnosis: Weakness[ICD9: 780.79] Diagnosis: Foot drop[ICD9: 736.79] Quyen Long MD, [facility] CPT-4: 25823 09/19/2014 ([id number]) 75347 EST. PATIENT, LEVEL IV Diagnosis: ESSENTIAL HYPERTENSION[ICD9: 401.9] Diagnosis: Carotid bruit[ICD9: 785.9] Diagnosis: Seborrheic dermatitis[ICD9: 690.10] Diagnosis: Post-polio syndrome[ICD9: 138] Diagnosis: Vitamin D deficiency[ICD9: 268.9] Quyen Long MD, [facility] CPT- 4: 96845 07/24/2014 ([id number]) 00972 EST. PATIENT, LEVEL IV Diagnosis: Neck pain[ICD9: 723.1] Diagnosis: Post-polio syndrome[ICD9: 138] Diagnosis: Vitamin D deficiency[ICD9: 268.9] Diagnosis: Vitamin B12 deficiency[ICD9: 266.2] Diagnosis: Nocturia[ICD9: 788.43] Diagnosis: Leg weakness[ICD9: 729.89] Diagnosis: Elevated blood sugar[ICD9: 790.29] Glory Long MD, [facility] CPT- 4: 77582 05/23/2014 ([id number]) 25970 EST. PATIENT, LEVEL IV Diagnosis: ESSENTIAL HYPERTENSION[ICD9: 401.9] Diagnosis: HEADACHE[ICD9: 784.0] Diagnosis: EDEMA[ICD9: 782.3] Quyen Long MD, [facility] CPT-4: 32925 04/18/2014 27114 EST. PATIENT, LEVEL IV Diagnosis: Insomnia[ICD9: 780.52] Diagnosis: Post-polio syndrome[ICD9: 138] Diagnosis: Vitamin D deficiency[ICD9: 268.9] Diagnosis: Nocturnal hypoxemia[ICD9: 799.02] Glory Long MD, [facility] CPT- 4: 54125 02/21/2014 ([id number]) 11460 EST. PATIENT, LEVEL III Diagnosis: Tinea pedis[ICD9: 110.4] Diagnosis: Post-polio limb muscle weakness[ICD9: 728.87] Glory Long MD, [facility] CPT-4: 46856 12/25/2013 ([id number]) 57313 EST. PATIENT, LEVEL IV Diagnosis: Insomnia[ICD9: 780.52] Diagnosis: Vitamin B12 deficiency (dietary) anemia[ICD9: 281.1] Diagnosis: VITAMIN D DEFICIENCY[ICD9: 268.9] Diagnosis: Weakness[ICD9: 780.79] Quyen Long MD, [facility] CPT-4: 73520 11/28/2013 ([id number]) OFFICE/OUTPATIENT VISIT NEW Diagnosis: Post-polio limb muscle weakness[ICD9: 728.87] Diagnosis: Post-polio syndrome[ICD9: 138] Diagnosis: Insomnia[ICD9: 780.52] Diagnosis: Arrhythmia[ICD9: 427.9] Quyen Long MD, [facility] CPT-4: 38799 11/14/2013 Plan of Care Planned Activity Notes [...] his shoulder. 04/20/2018 Appointment: Quyen Long WPtel: [address] [place], [place] [address] (15 min) Moderate 04/20/2018 Patient Education: Patient Medication Summary Completed 04/20/2018 Patient Education: Hypertension Completed 04/20/2018 Appointment: Queyn Long WPtel: [address] [place], [place] [address] (15 min) Moderate 04/11/2018 Visit Plan: Post polio syndrome -right leg weakness -patient needs repair and adjustment of his right leg brace that helps with his symptoms of instability and weakness and allows him to ambulate -will send rx to [place] [facility] 03/21/2018 Appointment: Glory Dalton WPtel: [phone] [phone] (15 min) Moderate 03/21/2018 Patient Education: [...] worsen. 02/08/2018 Appointment: Antoinette Arndt WPtel: [address] [facility] (30 min) Complex 02/08/2018 Patient Education: [...] Completed 12/27/2017 Appointment: Quyen Long WPtel: [phone] [facility] (15 min) Moderate 12/08/2017 Visit Plan: [...] shoulder injection. 12/06/2017 Appointment: Quyen Long WPtel: [address] [place], [place] [address] (15 min) Moderate 12/06/2017 Patient Education: Patient [...] Quyen Long WPtel: [facility] (15 min) Moderate 09/07/2017 Patient Education: [...] Quyen Long WPtel: [facility]5 [facility] (15 min) Moderate 06/07/2017 Patient Education: Patient [...] Quyen Long WPtel: [facility] (15 min) Moderate 05/19/2017 Patient Education: Patient Medication Summary Completed 05/19/2017 Patient Education: Obesity Completed 05/19/2017 Patient Education: Hypertension Completed 05/19/2017 Visit Plan: Rash-left jepw-wlzlgnyi-hwxbgbdkrc patient to continue using ketoconazole plus betamethasone equal parts and increase to TID-leave foot open to air as much as possible-follow up in 2 weeks, sooner if needed. 05/09/2017 Appointment: Glory Dalton WPtel: [phone] (30 min) Complex 05/09/2017 Patient Education: Patient Medication Summary Completed 05/09/2017 Patient Education: Obesity Completed 05/09/2017 Visit Plan: Rash-left foot-Dr Long in to evaluate rash-instructed patient to start using ketoconazole plus betamethasone equal parts TID -follow up in 2 weeks, sooner if needed. 04/25/2017 Appointment: Glory Dalton WPtel: [address] [place], [place] [phone] (30 min) Complex 04/25/2017 Patient Education: Patient Medication Summary Completed 04/25/2017 Visit Plan: Cellulitis of left foot-no longer draining-no open areas-no excoriation-slightly red-okay to d/c all treatments-keep clean and monitor-call if redness does not resolve Rash-resolved 2017 Appointment: Glory Dalton WPtel: [facility]6 [phone] (30 min) Complex 2017 Patient Education: Patient Medication Summary Completed 2017 Patient Education: Obesity Completed 2017 Visit Plan: Cellulitis-left foot-MSSA szshsvyy-jjktqpazw-uoyjg air in the evening-continue bactroban ointment twice daily-stop using alcohol on foot-no papertowels or abrasives to foot Llde-qthi-uc for betamethasone provided and instructed on use 03/29/2017 Appointment: Glory Dalton WPtel: [phone] (30 min) Complex 03/29/2017 Patient Education: Patient Medication Summary Completed 03/29/2017 Patient Education: Obesity Completed 03/29/2017 Appointment: Glory Dalton WPtel: [address] [phone] (30 min) Complex 03/22/2017 Visit Plan: [...] warmth, discharge. 03/17/2017 [facility]ment[phone] ([facility] min) Complex 03/17/2017 Patient Education: Patient [...] [facility]Ptel[facility] ([facility] min) Moderate 01/18/2017 Patient Education: Patient [...] Quyen Long WPtel[facility] (15 min) Moderate 10/19/2016 Patient Education: Patient Medication Summary Completed 10/19/2016 Patient Education: Obesity Completed 10/19/2016 Visit Plan: Left shoulder pain-hospital f/u recent shoulder surgery with Dr Wilson-doing well-sees Dr Wilson this afternoon for suture removal-pain improved Lwkq-qjkx-jiynpqy fungal infection-will treat with ket oconazole -follow up in 2 weeks 08/17/2016 Appointment: [phone] [phone] [place] (30 min) Complex 08/17/2016 Patient Education: [...] ambulating. 07/20/2016 Appointment: Quyen Long WPtel: [phone] [facility] (15 min) Moderate 07/20/2016 Patient Education: [...] strengthening. 04/19/2016 Appointment: [facility] [phone] [facility] (15 min) Moderate 04/19/2016 Patient Education: [...] appointment. 01/19/2016 Appointment: [facility] [phone] [facility] (15 min) Moderate 01/19/2016 Patient Education: Patient Medication Summary Completed 01/19/2016 Patient Education: Obesity Completed 01/19/2016 Patient Education: Hypertension Completed 01/19/2016 Referral: Dr Mccauley Referral Completed 11/11/2015 Care Plan: Referral Order SNOMED-CT : [id number] Pending 11/03/2015 Visit Plan: Hypertension - well [...] with injection 10/16/2015 Appointment: [phone] [facility] [place] (15 min) Moderate 10/16/2015 Patient Education: [...] Quyen Long WPtel: [facility] (15 min) Moderate 02/19/2015 Patient Education: [...] ear drops. 11/20/2014 Appointment: Quyen Long WPtel: [facility] Follow up 11/20/2014 Patient Education: Patient [...] doctor ESME. 11/05/2014 Appointment: Quyen Long WPtel: [facility] (15 min) Moderate 11/05/2014 Patient Education: [...] to participate in activities outside of the [facility]. He has a family that would like [...] foot. 09/19/2014 Appointment: [facility]el[facility] [address] [facility] [place] Follow up 09/19/2014 Patient Education: [...] deficiency - recommended repeat of vitamin d 90093pmehm weekly x 12 weeks and increase vitamin d to 5000 units daily. 07/24/2014 Appointment: Queyn Long [facility]Ptel[facility] [phone] [facility] [place] Follow up 07/24/2014 Patient Education: [...] B12 level 05/23/2014 Appointment: [phone] [phone] Follow up 05/23/2014 Patient Education: Patient Medication Summary Completed 05/23/2014 Patient Education: .Cervicalgia Neck Pain Completed 05/23/2014 Appointment: Quyen Long WPtel: [phone] [facility] [place] Follow up 05/22/2014 Visit Plan: [...] home. 04/18/2014 Appointment: [facility]el[facility] [phone] [facility] Follow up 04/18/2014 Patient Education: Patient Medication Summary Completed 04/18/2014 Patient Education: Hypertension Completed 04/18/2014 Appointment: [facility]el[facility] [phone] [facility] Follow up 02/27/2014 Visit Plan: Insomnia - Pt has been advised to increase the light in the house during the day, and start dimming the lights during the evening hours. Pt has been advised to cut out caffeine after 5pm. Daytime napping worsens night time insomnia. START TRAZODONE AND MONITOR SYMPTOMS. Vitamin D ehoazfacim-bsxxukvj-ibtmtecp vitamin D 50,000 units weekly for 12 additional weeks. Hypoxemia-continue night time oxygen 02/21/2014 Appointment: [facility]el[phone] [phone] Follow up 02/21/2014 Patient Education: Patient Medication [...] on mobic. 11/28/2013 Appointment: Quyen Long WPtel: [facility] [id number] [facility] Patient Education: Patient [...] study. 11/14/2013 Appointment: Quyen Long WPtel: [phone] [id number] New Patient 11/14/2013 Patient Education: Patient [...] START TRAZODONE AND MONITOR SYMPTOMS. Vitamin D ogblsspqhq-jsyvruvb-xroakfmb vitamin D 50,000 units weekly for 12 [...] up in 10 days . Cellulitis-left foot-MSSA hmojrbjv-xzaouyscz-qfmtw air in the evening-continue bactroban ointment twice daily-stop using alcohol on foot-no papertowels or abrasives to foot Arcn-bwgd-ol for betamethasone provided and instructed on use [...] and dressings to lower leg. . Rash-left mpqp-bgemvabj-cggyavqjtq patient to continue using ketoconazole plus betamethasone [...] deficiency - recommended repeat of vitamin d [id number] weekly x 12 weeks and increase vitamin [...] Wilson this afternoon for suture removal-pain improved Syig-stut-ualuxwm fungal infection-will treat with ketoconazole -follow up [...] to participate in activities outside of the [facility]. He has a family that would like [...] improved, or if symptoms acutely worsen. . Tinea pedis-discussed natural expected course of [...] his sister verbalize understanding of plan. . Bronchitis - acute [...] shoulder surgery for him to rehabilitate. . Cellulitis - left foot - The [...] him to ambulate -will send rx to [facility]
--- OUTSIDE RECORDS SUMMARY | 2018-11-10 16:23 | XMS REPORT | CCD ---
Author Author Quyen Long Organization Quyen Long MD, [facility] Address [address] [place] [address] Phone Care Team Providers Care Business Asst Name Role Phone PP Unavailable CCM Unavailable Summary Purpose Interface Exchange Insurance Providers Payer name Policy type / Coverage type Covered green party ID Effective Begin Date Effective End Date WPS Medicare Part B Medicare Part B [id number] [address] 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 11/14/[address]: 408385109 Never drinks alcohol 11/14/2013 Has the patient [...] Vitamin B-12 1,000 mcg/mL injection solution RxNorm: 099234 Milliliter(s) INJECT 1ML MONTHLY 06/15/2018 06/09/2019 Active Zithromax Z-Brian 250 mg tablet RxNorm: 358224 1 Tablet(s) PO UD 06/14/2018 No Stop Date Active zpack as directed x1 tamsulosin 0.4 mg capsule RxNorm: 524584 TAKE ONE CAPSULE BY MOUTH EVERY EVENING 06/12/2018 01/07/2019 Active gabapentin 300 mg capsule RxNorm: 746436 TAKE ONE CAPSULE BY MOUTH TWICE A DAY 05/31/2018 09/27/2018 Active losartan 50 mg tablet RxNorm: 234468 TAKE ONE TABLET BY MOUTH DAILY 05/01/2018 09/27/2018 Active Toprol XL 50 mg tablet,extended release RxNorm: 895606 1 Tablet(s) PO daily 04/20/2018 No Stop Date Active Vitamin D3 5,000 unit tablet RxNorm: 799334 TAKE ONE TABLET BY MOUTH DAILY 04/05/2018 02/28/2019 Active trazodone 50 mg tablet RxNorm: 750618 TAKE ONE TABLET BY MOUTH AT BEDTIME 02/27/2018 07/26/2018 Active ranitidine 150 mg tablet RxNorm: 912721 1 Tablet(s) PO BID 02/13/2018 02/07/2019 Active hydrochlorothiazide 25 mg tablet RxNorm: 101712 TAKE ONE TABLET BY MOUTH DAILY 02/13/2018 11/09/2018 Active albuterol sulfate 2.5 mg/3 mL (0.083 %) solution for nebulization RxNorm: 590509 3 Milliliter(s) INH UD 02/08/2018 No Stop Date Active please deliver all of his prescriptions thank you cefdinir 300 mg capsule RxNorm: 142429 1 Capsule(s) PO BID 02/08/2018 02/17/2018 Inactive prednisone 20 mg tablet RxNorm: 582840 2 Tablet(s) PO daily 02/08/2018 02/12/2018 Inactive fluticasone 50 mcg/actuation nasal spray,suspension RxNorm: 2212521 1 [place] NASAL BID 02/07/2018 06/06/2018 Inactive fluticasone 50 mcg/actuation nasal spray,suspension RxNorm: 3559725 1 [place] NASAL BID 02/07/2018 02/06/2018 Inactive Zithromax Z-Brian 250 mg tablet RxNorm: 558687 1 Tablet(s) PO UD 02/07/2018 03/14/2018 Inactive zpack as directed tamsulosin 0.4 mg capsule RxNorm: 733660 TAKE ONE CAPSULE BY MOUTH EVERY EVENING 01/13/2018 06/11/2018 Inactive cetirizine 10 mg tablet RxNorm: 3377525 TAKE ONE TABLET BY MOUTH EVERY NIGHT AT BEDTIME 01/02/2018 04/01/2018 Inactive Vitamin D3 5,000 unit tablet RxNorm: 200843 TAKE ONE TABLET BY MOUTH DAILY 01/02/2018 04/04/2018 Inactive cetirizine 10 mg tablet RxNorm: 0203396 1 Tablet(s) PO QHS 12/26/2017 01/01/2018 Inactive cetirizine 10 mg tablet RxNorm: 8986926 1 Tablet(s) PO QHS 12/26/2017 12/25/2017 Inactive losartan 50 mg tablet RxNorm: 773445 TAKE ONE TABLET BY MOUTH DAILY (STARTING 09-09-2017) 09/29/2017 03/27/2018 Inactive Request already responded to by other means (e.g. phone or fax) losartan 50 mg tablet RxNorm: 117798 1 Tablet(s) PO daily 09/27/2017 09/26/2017 Inactive losartan 50 mg tablet RxNorm: 340760 1 Tablet(s) PO daily 09/27/2017 09/28/2017 Inactive Bactrim DS 800 mg-160 mg tablet RxNorm: 349402 1 Tablet(s) PO BID 09/13/2017 09/19/2017 Inactive Kenalog 40 mg/mL suspension for injection RxNorm: 2401055 1 Milliliter(s) Inj 09/07/2017 09/07/2017 Inactive trazodone 50 mg tablet RxNorm: 090138 TAKE ONE TABLET BY MOUTH AT BEDTIME 08/16/2017 02/11/2018 Inactive gabapentin 300 mg capsule RxNorm: 067206 1 Capsule(s) PO BID 08/03/2017 01/29/2018 Inactive Vitamin D3 5,000 unit tablet RxNorm: 348378 TAKE ONE TABLET BY MOUTH DAILY 08/01/2017 12/28/2017 Inactive ketoconazole 2 % topical cream RxNorm: 833527 APPLY TO AFFECTED AREA(S) TWO TIMES A DAY 05/31/2017 06/29/2017 Inactive hydrochlorothiazide 25 mg tablet RxNorm: 314003 TAKE ONE TABLET BY MOUTH DAILY 05/16/2017 02/09/2018 Inactive lisinopril 20 mg tablet RxNorm: 987575 TAKE ONE TABLET BY MOUTH DAILY 05/16/2017 09/06/2017 Inactive ketoconazole 2 % topical cream RxNorm: 729390 1 Application TOP BID 03/29/2017 04/11/2017 Inactive apply to [facility]ice-deliver to [facility] please betamethasone dipropionate 0.05 % topical ointment RxNorm: 179983 1 Application TOP BID 03/29/2017 04/11/2017 Inactive apply to arm/chests for itching gabapentin 300 mg capsule RxNorm: 370597 1 Capsule(s) PO BID 03/29/2017 08/02/2017 Inactive trazodone 50 mg tablet RxNorm: 278041 TAKE ONE TABLET BY MOUTH AT BEDTIME 03/28/2017 08/15/2017 Inactive Vesicare 10 mg tablet RxNorm: 812670 TAKE ONE TABLET BY MOUTH EVERY NIGHT AT BEDTIME 03/21/2017 12/26/2017 Inactive Vesicare 10 mg tablet RxNorm: 653406 TAKE ONE TABLET BY MOUTH EVERY NIGHT AT BEDTIME 03/21/2017 06/06/2017 Inactive doxycycline hyclate 100 mg capsule RxNorm: 7334112 1 Capsule(s) PO BID 03/18/2017 03/27/2017 Inactive mupirocin 2 % topical ointment RxNorm: 525157 1 Application TOP BID 03/17/2017 No Stop Date Active doxycycline hyclate 100 mg tablet RxNorm: 983148 1 Tablet(s) PO BID 03/09/2017 03/15/2017 Inactive Take probiotic BID while on ABT doxycycline hyclate 100 mg tablet RxNorm: 356573 1 Tablet(s) PO BID 03/09/2017 03/08/2017 Inactive Take probiotic BID while on ABT meloxicam 15 mg tablet RxNorm: 824359 TAKE ONE TABLET BY MOUTH DAILY 02/10/2017 12/06/2017 Inactive Vitamin D3 5,000 unit tablet RxNorm: 516129 TAKE ONE TABLET BY MOUTH DAILY 02/08/2017 07/31/2017 Inactive Vitamin B-12 1,000 mcg/mL injection solution RxNorm: 979114 INJECT 1ML MONTHLY 01/24/2017 07/22/2017 Inactive lisinopril 20 mg tablet RxNorm: 548517 TAKE ONE TABLET BY MOUTH DAILY 12/13/2016 04/11/2017 Inactive trazodone 50 mg tablet RxNorm: 654543 TAKE ONE TABLET BY MOUTH AT BEDTIME 09/24/2016 03/22/2017 Inactive Vitamin D3 5,000 unit tablet RxNorm: 458284 TAKE ONE TABLET BY MOUTH DAILY 09/20/2016 02/07/2017 Inactive lisinopril 20 mg tablet RxNorm: 298195 TAKE ONE TABLET BY MOUTH DAILY 09/13/2016 12/12/2016 Inactive ketoconazole 2 % topical cream RxNorm: 377907 1 Application TOP BID 08/17/2016 08/30/2016 Inactive deliver to [facility] please Pepcid 20 mg tablet RxNorm: 046312 TAKE ONE TABLET BY MOUTH TWICE A DAY 07/12/2016 12/26/2017 Inactive omega-3 acid ethyl esters 1 gram capsule RxNorm: 019312 3 Capsule(s) PO daily 06/18/2016 12/14/2016 Inactive omega-3 acid ethyl esters 1 gram capsule RxNorm: 305290 3 Capsule(s) PO daily 06/18/2016 06/17/2016 Inactive trazodone 50 mg tablet RxNorm: 494316 TAKE ONE TABLET BY MOUTH AT BEDTIME 06/08/2016 08/06/2016 Inactive tamsulosin 0.4 mg capsule RxNorm: 583526 Capsule(s) TAKE ONE CAPSULE BY MOUTH EVERY EVENING 06/04/2016 12/30/2016 Inactive hydrochlorothiazide 25 mg tablet RxNorm: 968533 TAKE ONE TABLET BY MOUTH DAILY 05/10/2016 05/09/2016 Inactive hydrochlorothiazide 25 mg tablet RxNorm: 056452 TAKE ONE TABLET BY MOUTH DAILY 05/10/2016 02/12/2018 Inactive Pepcid 20 mg tablet RxNorm: 985957 1 Tablet(s) PO BID 03/18/2016 03/17/2016 Inactive Pepcid 20 mg tablet RxNorm: 385097 1 Tablet(s) PO BID 03/18/2016 07/11/2016 Inactive lisinopril 20 mg tablet RxNorm: 760101 TAKE ONE TABLET BY MOUTH DAILY 03/18/2016 08/14/2016 Inactive Vitamin D3 5,000 unit tablet RxNorm: 028905 Tablet(s) TAKE ONE TABLET BY MOUTH DAILY 03/18/2016 09/13/2016 Inactive trazodone 50 mg tablet RxNorm: 996363 TAKE ONE TABLET BY MOUTH AT BEDTIME 03/15/2016 06/07/2016 Inactive Vesicare 10 mg tablet RxNorm: 098347 1 Tablet(s) PO QHS 03/15/2016 02/07/2017 Inactive meloxicam 15 mg tablet RxNorm: 574036 TAKE ONE TABLET BY MOUTH DAILY 03/01/2016 01/24/2017 Inactive Bactrim DS 800 mg-160 mg tablet RxNorm: 118193 1 Tablet(s) PO BID 02/10/2016 02/09/2016 Inactive Bactrim DS 800 mg-160 mg tablet RxNorm: 531337 1 Tablet(s) PO BID 02/10/2016 02/16/2016 Inactive Cipro 500 mg tablet RxNorm: 948926 1 Tablet(s) PO BID 02/06/2016 02/09/2016 Inactive Cipro 500 mg tablet RxNorm: 080856 1 Tablet(s) PO BID 02/06/2016 02/05/2016 Inactive Pennsaid 20 mg/gram/actuation (2 %) topical soln in metered- dose pump RxNorm: 1211087 2 pumps TOP BID 01/19/2016 04/19/2016 Inactive tamsulosin 0.4 mg capsule RxNorm: 824252 TAKE ONE CAPSULE BY MOUTH EVERY EVENING 01/12/2016 06/03/2016 Inactive cyanocobalamin (vit B-12) 1,000 mcg/mL injection solution RxNorm: 865113 INJECT 1 ML INTRAMUSCULARLY MONTHLY 01/01/2016 10/26/2016 Inactive Request already responded to by other means (e.g. phone or fax) Vitamin B-12 1,000 mcg/mL injection solution RxNorm: 916090 1 Milliliter(s) Inj monthly 12/24/2015 04/19/2016 Inactive please give syringes for injections Vitamin D3 5,000 unit tablet RxNorm: 359693 TAKE ONE TABLET BY MOUTH DAILY 12/08/2015 03/06/2016 Inactive pantoprazole 40 mg tablet,delayed release RxNorm: 893293 TAKE ONE TABLET BY MOUTH DAILY 12/08/2015 03/17/2016 Inactive trazodone 50 mg tablet RxNorm: 071970 TAKE ONE TABLET BY MOUTH AT BEDTIME 11/10/2015 03/08/2016 Inactive lisinopril 20 mg tablet RxNorm: 908590 TAKE ONE TABLET BY MOUTH DAILY 09/08/2015 03/05/2016 Inactive Vitamin D3 5,000 unit tablet RxNorm: 575024 1 Tablet(s) PO daily 08/12/2015 12/07/2015 Inactive pantoprazole 40 mg tablet,delayed release RxNorm: 018216 1 Tablet(s) PO daily 08/12/2015 12/07/2015 Inactive tamsulosin 0.4 mg capsule RxNorm: 469701 TAKE ONE CAPSULE BY MOUTH EVERY EVENING 07/21/2015 12/17/2015 Inactive trazodone 50 mg tablet RxNorm: 025172 TAKE ONE TABLET BY MOUTH AT BEDTIME 05/09/2015 10/05/2015 Inactive hydrochlorothiazide 25 mg tablet RxNorm: 732961 1 Tablet(s) PO QAM 04/30/2015 04/29/2015 Inactive hydrochlorothiazide 25 mg tablet RxNorm: 205277 TAKE ONE TABLET BY MOUTH DAILY 04/30/2015 02/12/2018 Inactive pantoprazole 40 mg tablet,delayed release RxNorm: 222305 1 Tablet(s) PO daily 04/16/2015 08/11/2015 Inactive meloxicam 15 mg tablet RxNorm: 208486 TAKE ONE TABLET BY MOUTH DAILY 03/03/2015 02/25/2016 Inactive lisinopril 20 mg tablet RxNorm: 378951 1 Tablet(s) PO daily 02/19/2015 09/07/2015 Inactive tamsulosin 0.4 mg capsule RxNorm: 733571 TAKE ONE CAPSULE BY MOUTH EVERY EVENING 01/20/2015 07/18/2015 Inactive cyanocobalamin (vit B-12) 1,000 mcg/mL injection solution RxNorm: 972870 Milliliter(s) INJECT 1ML INTRAMUSCULARLY MONTHLY 12/12/2014 12/22/2014 Inactive trazodone 50 mg tablet RxNorm: 917782 TAKE ONE TABLET BY MOUTH AT BEDTIME 11/14/2014 05/08/2015 Inactive erythromycin 5 mg/gram (0.5 %) eye ointment RxNorm: 141761 1/2 inch OPH QID 11/05/2014 11/14/2014 Inactive acyclovir 800 mg tablet RxNorm: 915805 1 Tablet(s) PO TID 11/05/2014 11/18/2014 Inactive Zofran 4 mg tablet RxNorm: 780780 1 Tablet(s) PO Q4H as needed nausea 11/05/2014 01/03/2015 Inactive Duragesic 12 mcg/hr transdermal patch RxNorm: 094532 1 Patch TD Q72H 11/05/2014 02/04/2015 Inactive Imitrex 100 mg tablet RxNorm: 759481 1 Tablet(s) PO q 12 hours 11/04/2014 04/15/2015 Inactive naproxen 500 mg tablet RxNorm: 921015 1 Tablet(s) PO BID 10/30/2014 11/01/2014 Inactive meloxicam 15 mg tablet RxNorm: 916818 TAKE ONE TABLET BY MOUTH DAILY 10/04/2014 03/02/2015 Inactive Vesicare 5 mg tablet RxNorm: 542753 TAKE ONE TABLET BY MOUTH AT BEDTIME 09/16/2014 07/16/2015 Inactive Vitamin D2 50,000 unit capsule RxNorm: 682112 1 Capsule(s) PO QW 09/06/2014 07/16/2015 Inactive once weekly x 12 weeks tamsulosin ER 0.4 mg capsule,extended release 24 hr RxNorm: 182240 TAKE ONE CAPSULE BY MOUTH EVERY EVENING 06/24/2014 12/20/2014 Inactive tamsulosin ER 0.4 mg capsule,extended release 24 hr RxNorm: 129573 1 Capsule(s) PO QPM 06/24/2014 01/19/2015 Inactive Vitamin D2 50,000 unit capsule RxNorm: 783469 1 Capsule(s) PO QW 05/27/2014 09/05/2014 Inactive once weekly x 12 weeks Vesicare 5 mg tablet RxNorm: 187068 1 Tablet(s) PO QHS 05/23/2014 05/22/2014 Inactive Vesicare 5 mg tablet RxNorm: 232478 1 Tablet(s) PO QHS 05/23/2014 09/15/2014 Inactive trazodone 50 mg tablet RxNorm: 089300 TAKE ONE TABLET BY MOUTH AT BEDTIME 05/13/2014 11/08/2014 Inactive trazodone 50 mg tablet RxNorm: 869254 TAKE ONE TABLET BY MOUTH AT BEDTIME 05/13/2014 11/08/2014 Inactive hydrochlorothiazide 25 mg tablet RxNorm: 111328 1 Tablet(s) PO QAM 04/18/2014 01/12/2015 Inactive Vitamin D2 50,000 unit capsule RxNorm: 261205 TAKE ONE CAPSULE BY MOUTH ONCE WEEKLY FOR 12 WEEKS 04/09/2014 05/14/2014 Inactive trazodone 50 mg tablet RxNorm: 645587 1 Tablet(s) PO QHS 02/22/2014 05/12/2014 Inactive trazodone 50 mg tablet RxNorm: 311393 1 Tablet(s) PO QHS 02/22/2014 02/21/2014 Inactive Vitamin D2 50,000 unit capsule RxNorm: 740733 TAKE ONE CAPSULE BY MOUTH ONCE WEEKLY FOR 12 WEEKS 02/07/2014 03/06/2014 Inactive meloxicam 15 mg tablet RxNorm: 030024 TAKE ONE TABLET BY MOUTH ONCE A DAY 02/07/2014 08/05/2014 Inactive meloxicam 15 mg tablet RxNorm: 592565 TAKE ONE TABLET BY MOUTH ONCE A DAY 02/07/2014 2014 Inactive clotrimazole 1 % topical cream RxNorm: 120456 1 Application TOP BID 12/25/2013 07/16/2015 Inactive Diflucan 150 mg tablet RxNorm: 967530 1 Tablet(s) PO daily 12/25/2013 12/31/2013 Inactive tamsulosin ER 0.4 mg capsule,extended release 24 hr RxNorm: 347573 1 Capsule(s) PO QPM 11/28/2013 06/23/2014 Inactive cyanocobalamin (vit B-12) 1,000 mcg/mL injection solution RxNorm: 826574 1 Milliliter(s) Inj 11/28/2013 12/12/2014 Inactive Vitamin B-12 1,000 mcg/mL injection solution RxNorm: 787243 1 Milliliter(s) Inj monthly 11/21/2013 02/13/2015 Inactive please give syringes for injections Vitamin D2 50,000 unit capsule RxNorm: 064842 1 Capsule(s) PO QW x 12 weeks 11/21/2013 02/06/2014 Inactive [SAVINGS FOR UNINSURED PATIENTS -- to take addtional 2000 units daily Vitamin B-12 1,000 mcg/mL injection solution RxNorm: 162137 1 Milliliter(s) Inj monthly 11/21/2013 11/20/2013 Inactive meloxicam 15 mg tablet RxNorm: 775796 1 Tablet(s) PO daily 11/20/2013 11/19/2013 Inactive [SAVINGS FOR UNINSURED PATIENTS -- BIN:262084, PCN: [id number], Group: [id number], ID# [id number], Process claim through [employer], for questions: . THIS IS NOT INSURANCE.] meloxicam 15 mg tablet RxNorm: 467705 1 Tablet(s) PO daily 11/20/2013 02/06/2014 Inactive [SAVINGS FOR UNINSURED PATIENTS -- BIN:246880, PCN: [id number], Group: [id number], ID# [id number], Process claim through [employer], for questions: . THIS IS NOT INSURANCE.] meloxicam 15 mg tablet RxNorm: 045149 1 Tablet(s) PO daily 11/20/2013 11/19/2013 Inactive Voltaren 1 % topical gel RxNorm: 238508 4 Application TOP QID apply to back, affected joints four times daily 11/14/2013 11/20/2013 Inactive trazodone 50 mg tablet RxNorm: 105838 1 Tablet(s) PO QHS No Start Date Active Vitamin D2 50,000 unit capsule RxNorm: 459952 1 Capsule(s) PO QW No Start Date 05/26/2014 Inactive once weekly x 12 weeks Zithromax Z-Brian 250 mg tablet RxNorm: 488881 1 Tablet(s) PO UD No Start Date 02/06/2018 Inactive Vitamin D2 50,000 unit capsule RxNorm: 604446 1 Capsule(s) PO QW No Start Date 11/20/2013 Inactive gabapentin 300 mg capsule RxNorm: 679398 1 Capsule(s) PO TID No Start Date 03/28/2017 Inactive Vesicare 10 mg tablet RxNorm: 702024 1 Tablet(s) PO QHS No Start Date 03/14/2016 Inactive Toprol XL 25 mg tablet,extended release RxNorm: 919787 1 Tablet(s) PO daily No Start Date 04/19/2018 Inactive Vitamin D3 5,000 unit tablet RxNorm: 438018 1 Tablet(s) PO daily No Start Date 08/11/2015 Inactive Celebrex 200 mg capsule RxNorm: 510811 1 Capsule(s) PO BID No Start Date 07/19/2016 Inactive Imitrex 50 mg tablet RxNorm: 830372 1 Tablet(s) PO now and may repeat up to four times in 24 hours No Start Date 11/03/2014 Inactive Zofran 4 mg tablet RxNorm: 752878 1 Tablet(s) PO Q8 as needed nausea and vomitting No Start Date 10/15/2015 Inactive ranitidine 150 mg tablet RxNorm: 097562 1 Tablet(s) PO BID No Start Date 02/12/2018 Inactive Phenergan 25 mg tablet RxNorm: 154513 1 Tablet(s) PO now No Start Date 04/15/2015 Inactive Tums oral RxNorm: 269280 oral No Start Date 10/15/2015 Inactive Medication Administered Medication Codes Instructions Start Date Status Kenalog 40 mg/mL suspension for injection RxNorm: 4748502 1Milliliter 09/07/2017 No longer Active cyanocobalamin (vit B-12) 1,000 mcg/mL injection solution RxNorm: 844604 1Milliliter 11/28/2013 No longer Active Immunizations Vaccine [...] recently went to an eye doctor in [place]. Reports that he did have hemorrhaging in his right eye which is getting better. headache 04/18/2014 Pt states he recently went to an eye doctor in [place] shortness of breath 02/21/2014 blisters 12/25/2013 insomnia 11/28/2013 back pain 11/14/2013 Results Observation Observation Code Item Item Code Result Date Vitamin D 25 Oh [id number] VITAMIN D, 25 HYDROXY 66.80 ng/mL 03/14/2018 [...] 28.5 pg 03/14/2018 Cbc With Differential Ord2 [place]% 7.6 % 03/14/2018 Cbc With Differential Ord2 [...] 1.28 K/ul 03/14/2018 Cbc With Differential Ord2 [place] ABS# 0.4 K/ul 03/14/2018 Cbc With Differential [...] Lipid Ord30 C/HDL 5.0 Ratio 06/27/2017 %Hba1C Kqs598 % HbA1c 21035- 6 6.2 % 06/27/2017 %Hba1C Kxu031 Gluc Ave 131 mg/dL 06/27/2017 Comp Metabolic Kyy552 NA 140 mEq/L 06/27/2017 Comp Metabolic Kgk793 K 4.2 mEq/L 06/27/2017 Comp Metabolic Gny198 CL 100 mEq/L 06/27/2017 Comp Metabolic Eki832 CO2 32.0 mEq/L 06/27/2017 Comp Metabolic Jmr324 ANION GAP 12 06/27/2017 Comp Metabolic Qhg835 GLUCOSE 118 mg/dL 06/27/2017 Comp Metabolic Uhj017 Creat 1.0 mg/dL 06/27/2017 Comp Metabolic Ies064 eGFR 82 ml/min/1.73m2 06/27/2017 Comp Metabolic Pbx439 BUN 26 mg/dL 06/27/2017 Comp Metabolic Xpo437 B/C Ratio 27.1 Ratio 06/27/2017 Comp Metabolic Adc662 CALCIUM 9.6 mg/dL 06/27/2017 Comp Metabolic Izl565 ALK PHOS 46 U/L 06/27/2017 Comp Metabolic Rwr331 AST(SGOT) 23 U/L 06/27/2017 Comp Metabolic Ese445 ALT(SGPT) 31 U/L 06/27/2017 Comp Metabolic Nut749 BILI T 0.5 mg/dL 06/27/2017 Comp Metabolic Yea257 ALBUMIN 4.2 g/dL 06/27/2017 Comp Metabolic Zkp310 TPRO 6.6 g/dL 06/27/2017 Comp Metabolic Xsa615 GLOB 2.4 g/dL 06/27/2017 Comp Metabolic Ppp422 A/G Ratio 1.7 Ratio 06/27/2017 Comp Metabolic Pqk708 Osmo 285 mOsmo 06/27/2017 Cbc With Differential [...] 29.3 % 10/20/2016 Cbc With Differential Ord2 [place]% 9.0 % 10/20/2016 Cbc With Differential Ord2 [...] 1.33 K/ul 10/20/2016 Cbc With Differential Ord2 [place] ABS# 0.4 K/ul 10/20/2016 Cbc With Differential Ord2 Eos ABS# 0.2 K/ul 10/20/2016 Cbc With Differential Ord2 Baso ABS# 0.0 K/ul 10/20/2016 Comp Metabolic Yxf938 NA 143 mEq/L 10/20/2016 Comp Metabolic Cbx530 K 4.6 mEq/L 10/20/2016 Comp Metabolic Dzm456 CL 104 mEq/L 10/20/2016 Comp Metabolic Gjz222 CO2 31.0 mEq/L 10/20/2016 Comp Metabolic Pez819 ANION GAP 13 10/20/2016 Comp Metabolic Jdr331 GLUCOSE 117 mg/dL 10/20/2016 Comp Metabolic Kvh784 Creat 1.1 mg/dL 10/20/2016 Comp Metabolic Bdy758 eGFR 74 ml/min/1.73m2 10/20/2016 Comp Metabolic Lgr761 BUN 27 mg/dL 10/20/2016 Comp Metabolic Sju965 B/C Ratio 25.7 Ratio 10/20/2016 Comp Metabolic Ypr776 CALCIUM 9.3 mg/dL 10/20/2016 Comp Metabolic Kxw069 ALK PHOS 47 U/L 10/20/2016 Comp Metabolic Egf170 AST(SGOT) 18 U/L 10/20/2016 Comp Metabolic Evo198 ALT(SGPT) 22 U/L 10/20/2016 Comp Metabolic Nbg030 BILI T 0.5 mg/dL 10/20/2016 Comp Metabolic Zny524 ALBUMIN 3.9 g/dL 10/20/2016 Comp Metabolic Kmh493 TPRO 6.5 g/dL 10/20/2016 Comp Metabolic Ajc232 GLOB 2.6 g/dL 10/20/2016 Comp Metabolic Nmf253 A/G Ratio 1.5 Ratio 10/20/2016 Comp Metabolic Grm813 Osmo 291 mOsmo 10/20/2016 Tsh Ord6 hTSH II 1.56 uIU/mL 10/20/2016 Lipid Ord30 CHOL 153 mg/dL 10/20/2016 Lipid Ord30 HDL 34.0 mg/dl 10/20/2016 Lipid Ord30 TRIG 123 mg/dL 10/20/2016 Lipid Ord30 LDL 94 mg/dL 10/20/2016 Lipid Ord30 C/HDL 4.5 Ratio 10/20/2016 B12 Hyt623 B12 544.00 pg/ml 10/20/2016 Comp Metabolic Hyu373 NA 138 mEq/L 05/13/2016 Comp Metabolic Tkw973 K 4.2 mEq/L 05/13/2016 Comp Metabolic Ejr359 CL 102 mEq/L 05/13/2016 Comp Metabolic Eyn431 CO2 30.0 mEq/L 05/13/2016 Comp Metabolic Vpq270 ANION GAP 10 05/13/2016 Comp Metabolic Fvq449 GLUCOSE 113 mg/dL 05/13/2016 Comp Metabolic Wne529 Creat 1.0 mg/dL 05/13/2016 Comp Metabolic Wyw631 eGFR 77 ml/min/1.73m2 05/13/2016 Comp Metabolic Qct701 BUN 26 mg/dL 05/13/2016 Comp Metabolic Qls978 B/C Ratio 25.5 Ratio 05/13/2016 Comp Metabolic Kfr769 CALCIUM 9.7 mg/dL 05/13/2016 Comp Metabolic Jyl041 ALK PHOS 51 U/L 05/13/2016 Comp Metabolic Txa704 AST(SGOT) 17 U/L 05/13/2016 Comp Metabolic Izx128 ALT(SGPT) 20 U/L 05/13/2016 Comp Metabolic Lmr211 BILI T 0.6 mg/dL 05/13/2016 Comp Metabolic Fej513 ALBUMIN 4.0 g/dL 05/13/2016 Comp Metabolic Zha455 TPRO 6.6 g/dL 05/13/2016 Comp Metabolic Zqz969 GLOB 2.6 g/dL 05/13/2016 Comp Metabolic Pms189 A/G Ratio 1.6 Ratio 05/13/2016 Comp Metabolic Sbo117 Osmo 281 mOsmo 05/13/2016 Lipid Ord30 CHOL [...] 25.3 % 02/11/2016 Cbc With Differential Ord2 [place]% 7.7 % 02/11/2016 Cbc With Differential Ord2 [...] 1.18 K/ul 02/11/2016 Cbc With Differential Ord2 [place] ABS# 0.4 K/ul 02/11/2016 Cbc With Differential Ord2 Eos ABS# 0.1 K/ul 02/11/2016 Cbc With Differential Ord2 Baso ABS# 0.0 K/ul 02/11/2016 Comp Metabolic Erx007 NA 138 mEq/L 02/11/2016 Comp Metabolic Dwt615 K 4.0 mEq/L 02/11/2016 Comp Metabolic Jpl758 CL 97 mEq/L 02/11/2016 Comp Metabolic Vff264 CO2 32.0 mEq/L 02/11/2016 Comp Metabolic Wfx012 ANION GAP 13 02/11/2016 Comp Metabolic Gpa811 GLUCOSE 117 mg/dL 02/11/2016 Comp Metabolic Nyv842 Creat 1.0 mg/dL 02/11/2016 Comp Metabolic Gqr658 eGFR 81 ml/min/1.73m2 02/11/2016 Comp Metabolic Grx856 BUN 21 mg/dL 02/11/2016 Comp Metabolic Sat741 B/C Ratio 21.4 Ratio 02/11/2016 Comp Metabolic Qao246 CALCIUM 9.2 mg/dL 02/11/2016 Comp Metabolic Gfd256 ALK PHOS 48 U/L 02/11/2016 Comp Metabolic Grj364 AST(SGOT) 18 U/L 02/11/2016 Comp Metabolic Apd826 ALT(SGPT) 22 U/L 02/11/2016 Comp Metabolic Gaw329 BILI T 0.5 mg/dL 02/11/2016 Comp Metabolic Vvh685 ALBUMIN 3.9 g/dL 02/11/2016 Comp Metabolic Voo711 TPRO 6.3 g/dL 02/11/2016 Comp Metabolic Ctv094 GLOB 2.5 g/dL 02/11/2016 Comp Metabolic Bti317 A/G Ratio 1.6 Ratio 02/11/2016 Comp Metabolic Cmr690 Osmo 280 mOsmo 02/11/2016 Lipid Ord30 CHOL 163 mg/dL 02/11/2016 Lipid Ord30 HDL 35.0 mg/dl 02/11/2016 Lipid Ord30 TRIG 200 mg/dL 02/11/2016 Lipid Ord30 LDL 88 mg/dL 02/11/2016 Lipid Ord30 C/HDL 4.7 Ratio 02/11/2016 %Hba1C Lml041 % HbA1c 75415- 6 6.5 % 02/11/2016 %Hba1C Eut596 Gluc Ave 140 mg/dL 02/11/2016 Tsh Ord6 hTSH II 2.07 uIU/mL 02/11/2016 B12 Vvj195 B12 563.00 pg/ml 02/11/2016 Culture Urine [id number] URINE CULTURE SEE NOTES 02/10/2016 Culture Urine [id number] Continued Results 02/10/2016 Urine Culture Ucult Complete [...] 11/04/2015 Urinalysis Ord28 U-Yeast NEGATIVE 11/04/2015 %Hba1C Apj894 % HbA1c 68605- 6 6.4 % 04/16/2015 %Hba1C Uvk854 Gluc Ave 137 mg/dL 04/16/2015 Tsh Ord6 hTSH II 3.33 uIU/mL 02/07/2015 Comp Metabolic Vgd990 NA 136 mEq/L 02/07/2015 Comp Metabolic Woh948 K 3.9 mEq/L 02/07/2015 Comp Metabolic Zwn681 CL 98 mEq/L 02/07/2015 Comp Metabolic Kmd062 CO2 31.0 mEq/L 02/07/2015 Comp Metabolic Jiv428 ANION GAP 11 02/07/2015 Comp Metabolic Qod984 GLUCOSE 139 mg/dL 02/07/2015 Comp Metabolic Uqy348 Creat 0.9 mg/dL 02/07/2015 Comp Metabolic Ekr242 eGFR 87 ml/min/1.73m2 02/07/2015 Comp Metabolic Mju679 BUN 20 mg/dL 02/07/2015 Comp Metabolic Txa565 B/C Ratio 21.7 Ratio 02/07/2015 Comp Metabolic Ldi535 CALCIUM 9.7 mg/dL 02/07/2015 Comp Metabolic Ofp056 ALK PHOS 55 U/L 02/07/2015 Comp Metabolic Aeq085 AST(SGOT) 20 U/L 02/07/2015 Comp Metabolic Azq274 ALT(SGPT) 27 U/L 02/07/2015 Comp Metabolic Vlo509 BILI T 0.5 mg/dL 02/07/2015 Comp Metabolic Wyp469 ALBUMIN 4.3 g/dL 02/07/2015 Comp Metabolic Rxk065 TPRO 6.9 g/dL 02/07/2015 Comp Metabolic Pth056 GLOB 2.6 g/dL 02/07/2015 Comp Metabolic Cvq617 A/G Ratio 1.7 Ratio 02/07/2015 Comp Metabolic Flb514 Osmo 277 mOsmo 02/07/2015 Cbc With Differential [...] Ord2 RDW 14.8 % 02/07/2015 A1C HPLC [id number] A1C HPLC 69267-3 6.0 % 05/23/2014 VIT B 12 [id number] VIT B 12 479 PG/ML 05/23/2014 VIT D TOTL [id number] VIT D TOTL 29 NG/ML 05/23/2014 Review [...] nourished 02/08/2018 None Full Exam - General 1995 Eyes conjunctiva/eyelids Overall: conjunctiva clear 02/08/2018 None [...] rate 12/06/2017 None Full Exam - General 1995 Musculoskeletal lower extremity Inspection - thigh: deformity 12/06/2017 atrophy Full Exam - General 1995 Musculoskeletal [...] clear 07/24/2014 None Full Exam - General 1995 Ears/Nose/Throat lips/teeth/gingiva Overall: benign lips 07/24/2014 None [...] accomodation 02/21/2014 None Full Exam - General 1995 Ears/Nose/Throat [...] clear 11/14/2013 None Full Exam - General 1995 Ears/Nose/Throat oral cavity/pharynx/larynx Overall: oropharyngeal mucosa clear [...] 4: G0439 12/27/2017 THER/PROPH/DIAG INJ SC/IM CPT-4: 10822 09/07/2017 TRIAMCINOLONE ACET INJ NOS CPT-4: J3301 09/07/2017 ROUTINE VENIPUNCTURE CPT- 4: 71122 05/23/2014 THER/PROPH/DIAG INJ SC/IM CPT-4: 13142 11/28/2013 VITAMIN B12 INJECTION CPT- 4: J3420 11/28/2013 Vital Signs Date Vital 04/20/2018 Blood Pressure 1: 126/74 Code: 8480-6 BMI: 36.6 Code: 74367-7 Heart Rate 1: 60 bpm Height: 6' SpO2: 94% Weight: 270 lbs 03/21/2018 Blood Pressure 1: 138/74 Code: 8480-6 BMI: 36.8 Code: 84269-9 Heart Rate 1: 81 bpm Height: 6' SpO2: 98% Weight: 271 lbs 02/08/2018 Blood Pressure 1: 132/74 Code: 8480-6 BMI: 37.0 Code: 40806-7 Heart Rate 1: 82 bpm Height: 6' SpO2: 97% Weight: 273 lbs 12/27/2017 Blood Pressure 1: 148/78 Code: 8480-6 BMI: 36.3 Code: 60684-7 Heart Rate 1: 78 bpm Height: 6' SpO2: 93% Waist Measure (cm): 117 cm Weight: 268 lbs 12/06/2017 Blood Pressure 1: 122/70 Code: 8480-6 BMI: 36.6 Code: 81204-5 Heart Rate 1: 76 bpm Height: 6' SpO2: 93% Weight: 270 lbs 11/01/2017 BMI: 36.9 Code: 13208-9 Height: 6' Weight: 272 lbs 09/07/2017 Blood Pressure 1: 140/78 Code: 8480-6 BMI: 35.8 Code: 28697-6 Heart Rate 1: 76 bpm Height: 6' SpO2: 98% Weight: 264 lbs 06/07/2017 Blood Pressure 1: 138/86 Code: 8480-6 BMI: 36.3 Code: 94064-8 Heart Rate 1: 66 bpm Height: 6' SpO2: 95% Weight: 268 lbs 05/19/2017 Blood Pressure 1: 152/84 Code: 8480-6 BMI: 36.8 Code: 64437-5 Heart Rate 1: 70 bpm Height: 6' SpO2: 93% Weight: 271 lbs 05/09/2017 Blood Pressure 1: 138/76 Code: 8480-6 BMI: 36.6 Code: 72316-4 Heart Rate 1: 79 bpm Height: 6' SpO2: 93% Weight: 270 lbs 04/25/2017 Blood Pressure 1: 150/80 Code: 8480-6 Heart Rate 1: 58 bpm Height: SpO2: 94% Weight: 2017 Blood Pressure 1: 138/80 Code: 8480-6 BMI: 36.5 Code: 49032-6 Heart Rate 1: 76 bpm Height: 6' SpO2: 96% Weight: 269 lbs 03/29/2017 Blood Pressure 1: 118/68 Code: 8480-6 BMI: 36.9 Code: 31327-9 Heart Rate 1: 61 bpm Height: 6' SpO2: 95% Weight: 272 lbs 03/17/2017 Blood Pressure 1: 140/78 Code: 8480-6 BMI: 36.8 Code: 40239-4 Heart Rate 1: 91 bpm Height: 6' SpO2: 93% Weight: 271 lbs 03/08/2017 Blood Pressure 1: 152/84 Code: 8480-6 BMI: 36.8 Code: 58489-1 Heart Rate 1: 72 bpm Height: 6' SpO2: 92% Temperature: 36.6 (C) / 97.8 (F) Weight: 271 lbs 02/17/2017 Blood Pressure 1: 110/64 Code: 8480-6 BMI: 36.5 Code: 53331-8 Heart Rate 1: 62 bpm Height: 6' SpO2: 96% Weight: 269 lbs 01/18/2017 Blood Pressure 1: 140/80 Code: 8480-6 BMI: 36.5 Code: 25563-3 Heart Rate 1: 62 bpm Height: 6' SpO2: 94% Weight: 269 lbs 10/19/2016 Blood Pressure 1: 120/80 Code: 8480-6 BMI: 35.9 Code: 58727-7 Heart Rate 1: 64 bpm Height: 6' SpO2: 97% Weight: 265 lbs 08/17/2016 Blood Pressure 1: 112/76 Code: 8480-6 BMI: 36.1 Code: 35443-0 Heart Rate 1: 65 bpm Height: 6' SpO2: 97% Weight: 266 lbs 07/20/2016 Blood Pressure 1: 126/78 Code: 8480-6 BMI: 35.5 Code: 77555-7 Heart Rate 1: 60 bpm Height: 6' SpO2: 95% Weight: 262 lbs 04/19/2016 Blood Pressure 1: 132/78 Code: 8480-6 BMI: 35.1 Code: 07205-6 Heart Rate 1: 65 bpm Height: 6' SpO2: 98% Weight: 259 lbs 01/19/2016 Blood Pressure 1: 140/64 Code: 8480-6 BMI: 34.4 Code: 49521-7 Heart Rate 1: 61 bpm Height: 6' SpO2: 97% Weight: 254 lbs 10/16/2015 Blood Pressure 1: 108/66 Code: 8480-6 BMI: 35.3 Code: 67152-0 Heart Rate 1: 65 bpm Height: 6' SpO2: 96% Weight: 260 lbs 07/17/2015 Blood Pressure 1: 136/74 Code: 8480-6 BMI: 35.8 Code: 05864-6 Heart Rate 1: 59 bpm Height: 6' SpO2: 97% Weight: 263 lbs 13 oz 07/03/2015 Weight: 265 lbs 04/16/2015 Blood Pressure 1: 130/82 Code: 8480-6 BMI: 36.1 Code: 24265-6 Heart Rate 1: 7694 bpm Height: 6' SpO2: 94% Weight: 266 lbs 02/19/2015 Blood Pressure 1: 160/90 Code: 8480-6 BMI: 35.8 Code: 50741-0 Heart Rate 1: 78 bpm Height: 6' SpO2: 94% Weight: 264 lbs 11/20/2014 Blood Pressure 1: 140/96 Code: 8480-6 BMI: 34.6 Code: 58932-2 Heart Rate 1: 92 bpm Height: 6' SpO2: 95% Weight: 255 lbs 11/05/2014 Blood Pressure 1: 132/70 Code: 8480-6 BMI: 34.6 Code: 24670-2 Heart Rate 1: 96 bpm Height: 6' SpO2: 98% Weight: 255 lbs 09/19/2014 Blood Pressure 1: 152/86 Code: 8480-6 BMI: 35.8 Code: 54723-9 Heart Rate 1: 82 bpm Height: 6' SpO2: 95% Weight: 264 lbs 07/24/2014 Blood Pressure 1: 142/82 Code: 8480-6 BMI: 34.7 Code: 08091-6 Heart Rate 1: 72 bpm Height: 6' Weight: 256 lbs 05/23/2014 Blood Pressure 1: 150/82 Code: 8480-6 BMI: 33.4 Code: 33792-9 Heart Rate 1: 68 bpm Height: 6' Weight: 246 lbs 04/18/2014 Blood Pressure 1: 132/84 Code: 8480-6 BMI: 33.2 Code: 13331-3 Heart Rate 1: 80 bpm Height: 6' Weight: 245 lbs 02/21/2014 Blood Pressure 1: 138/82 Code: 8480-6 BMI: 32.4 Code: 46175-2 Heart Rate 1: 85 bpm Height: 6' SpO2: 98% Weight: 239 lbs 12/25/2013 Blood Pressure 1: 146/80 Code: 8480-6 BMI: 30.5 Code: 95738-4 Heart Rate 1: 100 bpm Height: 6' Weight: 225 lbs 11/28/2013 Blood Pressure 1: 120/64 Code: 8480-6 BMI: 30.4 Code: 14752-5 Heart Rate 1: 68 bpm Height: 6' Weight: 224 lbs 11/14/2013 Blood Pressure 1: 124/80 Code: 8480-6 BMI: 30.0 Code: 01288-1 Heart Rate 1: 76 bpm Height: 6' [...] Maxitrol and Polytrim seeing eye dr in [place]. Reports eye still feels irritated. headache Quality [...] Maxitrol and Polytrim seeing eye dr in [place]. Reports eye still feels irritated. headache Quality [...] data Encounters Encounter Performer Location Codes Date ([id number]) 88470 EST. 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 PATIENT, LEVEL III Diagnosis: Acute bronchitis due to other specified organisms[ICD10: J20.8] Antoinette Long MD, [facility] CPT-4: 41904 02/08/2018 ([id number]) 78236 EST. 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 PATIENT, LEVEL III Diagnosis: Essential (primary) hypertension[ICD10: I10] Diagnosis: Localized edema[ICD10: R60.0] Diagnosis: Cellulitis of left lower limb[ICD10: L03.116] Quyen Long MD, [facility] CPT-4: 82938 06/07/2017 ([id number]) 85216 EST. 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 PATIENT, LEVEL II Diagnosis: Rash and other nonspecific skin eruption[ICD10: R21] Glory Long MD [facility] CPT-4: 37902 05/09/2017 ([id number]) 75339 EST. PATIENT, LEVEL II Diagnosis: Rash and other nonspecific skin eruption[ICD10: R21] Glory Long MD [facility] CPT-4: 05446 04/25/2017 ([id number]) 15034 EST. PATIENT, LEVEL III Diagnosis: Cellulitis of left lower limb[ICD10: L03.116] Diagnosis: Rash and other nonspecific skin eruption[ICD10: R21] Glory Long MD [facility] CPT-4: 30360 2017 ([id number]) 73272 EST. PATIENT, LEVEL III Diagnosis: Cellulitis of left lower limb[ICD10: L03.116] Diagnosis: Rash and other nonspecific skin eruption[ICD10: R21] Glory Long MD [facility] CPT-4: 89571 03/29/2017 31710 EST. PATIENT, LEVEL IV Diagnosis: Cellulitis of left lower limb[ICD10: L03.116] Antoinette Long MD [facility] CPT-4: 80337 03/17/2017 ([id number]) 01453 EST. PATIENT, LEVEL III Diagnosis: Rash and other nonspecific skin eruption[ICD10: R21] Glory Long MD [facility] CPT-4: 10015 03/08/2017 17399 EST. PATIENT, LEVEL IV Diagnosis: Essential (primary) hypertension[ICD10: I10] Diagnosis: Muscle weakness (generalized)[ICD10: M62.81] Diagnosis: Body mass index (BMI) 36.0-36.9, adult[ICD10: Z68.36] Diagnosis: Family history of ischemic heart disease and other diseases of the circulatory system[ICD10: Z82.49] Antoinette Long MD, [facility] CPT-4: 78443 02/17/2017 ([id number]) 72651 EST. PATIENT, LEVEL IV Diagnosis: Essential (primary) hypertension[ICD10: I10] Diagnosis: Muscle weakness (generalized)[ICD10: M62.81] Quyen Long MD, [facility] CPT-4: 18290 01/18/2017 ([id number]) 60384 EST. 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 PATIENT, LEVEL III Diagnosis: Pain in left shoulder[ICD10: M25.512] Diagnosis: Rash and other nonspecific skin eruption[ICD10: R21] Glory Long MD, [facility] CPT-4: 33906 08/17/2016 ([id number]) 04146 EST. PATIENT, LEVEL IV Diagnosis: Essential (primary) hypertension[ICD10: I10] Diagnosis: Pain in left shoulder[ICD10: M25.512] Quyen Long MD, [facility] CPT-4: 56601 07/20/2016 ([id number]) 83562 EST. 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 PATIENT, LEVEL IV Diagnosis: Essential (primary) hypertension[ICD10: I10] Diagnosis: Other abnormal glucose[ICD10: R73.09] Diagnosis: Gastro-esophageal reflux disease without esophagitis[ICD10: K21.9] Diagnosis: Obesity, unspecified[ICD10: E66.9] Quyen Long MD [facility] CPT- 4: 51337 04/16/2015 ([id number]) 49930 EST. PATIENT, LEVEL IV Diagnosis: ESSENTIAL HYPERTENSION[ICD9: 401.9] Diagnosis: OBESITY[ICD9: 278.00] Diagnosis: Post-polio limb muscle weakness[ICD9: 728.87] Quyen Long MD [facility] CPT-4: 89361 02/19/2015 ([id number]) 71062 EST. PATIENT, LEVEL IV Diagnosis: Shingles outbreak[ICD9: 053.9] Diagnosis: ESSENTIAL HYPERTENSION[ICD9: 401.9] Diagnosis: Earache[ICD9: 388.70] Quyen Long MD [facility] CPT-4: 79535 11/20/2014 ([id number]) 85615 EST. PATIENT, LEVEL III Diagnosis: Shingles outbreak[ICD9: 053.9] Diagnosis: Face pain[ICD9: 784.0] Diagnosis: Pain, eye, right[ICD9: 379.91] Quyen Long MD [facility] CPT-4: 75044 11/05/2014 ([id number]) 77144 EST. PATIENT, LEVEL V Diagnosis: Post-polio limb muscle weakness[ICD9: 728.87] Diagnosis: Post-polio syndrome[ICD9: 138] Diagnosis: Leg weakness[ICD9: 729.89] Diagnosis: Weakness[ICD9: 780.79] Diagnosis: Foot drop[ICD9: 736.79] Quyen Long MD, [facility] CPT-4: 28098 09/19/2014 [id number]) 75523 EST. PATIENT, LEVEL IV Diagnosis: ESSENTIAL HYPERTENSION[ICD9: 401.9] Diagnosis: Carotid bruit[ICD9: 785.9] Diagnosis: Seborrheic dermatitis[ICD9: 690.10] Diagnosis: Post-polio syndrome[ICD9: 138] Diagnosis: Vitamin D deficiency[ICD9: 268.9] Quyen Long MD, [facility] CPT- 4: 15395 07/24/2014 [id number]) 25078 EST. PATIENT, LEVEL IV Diagnosis: Neck pain[ICD9: 723.1] Diagnosis: Post-polio syndrome[ICD9: 138] Diagnosis: Vitamin D deficiency[ICD9: 268.9] Diagnosis: Vitamin B12 deficiency[ICD9: 266.2] Diagnosis: Nocturia[ICD9: 788.43] Diagnosis: Leg weakness[ICD9: 729.89] Diagnosis: Elevated blood sugar[ICD9: 790.29] Glory Long MD, [facility] CPT- 4: 63103 05/23/2014 [id number]) 04227 EST. PATIENT, LEVEL IV Diagnosis: ESSENTIAL HYPERTENSION[ICD9: 401.9] Diagnosis: HEADACHE[ICD9: 784.0] Diagnosis: EDEMA[ICD9: 782.3] Quyen Long MD, [facility] CPT-4: 92117 04/18/2014 36931 EST. PATIENT, LEVEL IV Diagnosis: Insomnia[ICD9: 780.52] Diagnosis: Post-polio syndrome[ICD9: 138] Diagnosis: Vitamin D deficiency[ICD9: 268.9] Diagnosis: Nocturnal hypoxemia[ICD9: 799.02] Glory Long MD, [facility] CPT- 4: 86327 02/21/2014 ([id number]) 02837 EST. PATIENT, LEVEL III Diagnosis: Tinea pedis[ICD9: 110.4] Diagnosis: Post-polio limb muscle weakness[ICD9: 728.87] Glory oLng MD, [facility] CPT-4: 16674 12/25/2013 ([id number]) 10620 EST. PATIENT, LEVEL IV Diagnosis: Insomnia[ICD9: 780.52] Diagnosis: Vitamin B12 deficiency (dietary) anemia[ICD9: 281.1] Diagnosis: VITAMIN D DEFICIENCY[ICD9: 268.9] Diagnosis: Weakness[ICD9: 780.79] Quyen Long MD, [facility] CPT-4: 76095 11/28/2013 ([id number]) OFFICE/OUTPATIENT VISIT NEW Diagnosis: Post-polio limb muscle weakness[ICD9: 728.87] Diagnosis: Post-polio syndrome[ICD9: 138] Diagnosis: Insomnia[ICD9: 780.52] Diagnosis: Arrhythmia[ICD9: 427.9] Quyen Long MD, [facility] CPT-4: 73353 11/14/2013 Plan of Care Planned Activity Notes [...] his shoulder. 04/20/2018 Appointment: Quyen Long WPtel: [address] [place], [place] [id number] (15 min) Moderate 04/20/2018 Patient Education: Patient Medication Summary Completed 04/20/2018 Patient Education: Hypertension Completed 04/20/2018 Appointment: Quyen Long WPtel: [address] [place], [place] [address] (15 min) Moderate 04/11/2018 Visit Plan: Post polio syndrome -right leg weakness -patient needs repair and adjustment of his right leg brace that helps with his symptoms of instability and weakness and allows him to ambulate -will send rx to [place] [facility] 03/21/2018 [facility]ment[phone] (15 min) Moderate 03/21/2018 Patient Education: Patient [...] acutely worsen. 02/08/2018 Appointment: [phone] [facility] (30 min) Complex 02/08/2018 Patient Education: Patient [...] Summary Completed 12/27/2017 Appointment: [phone] (15 min) Moderate 12/08/2017 Visit Plan: Hypertension [...] shoulder injection. 12/06/2017 Appointment: Quyen Long WPtel: [address] [place], [place] [id number] (15 min) Moderate 12/06/2017 Patient Education: Patient [...] check. 09/07/2017 Appointment: Quyen Long WPtel: [facility]5 [facility] (15 min) Moderate 09/07/2017 Patient Education: [...] leg. 06/07/2017 Appointment: Quyen Long WPtel: [facility] [place] (15 min) Moderate 06/07/2017 Patient Education: Patient [...] recommended. 05/19/2017 Appointment: Quyen Long WPtel: [facility] [place] [place] (15 min) Moderate 05/19/2017 Patient Education: Patient Medication Summary Completed 05/19/2017 Patient Education: Obesity Completed 05/19/2017 Patient Education: Hypertension Completed 05/19/2017 Visit Plan: Rash-left lxuu-lajiobmd-ayihyebept patient to continue using ketoconazole plus betamethasone equal parts and increase to TID-leave foot open to air as much as possible-follow up in 2 weeks, sooner if needed. 05/09/2017 Appointment: Glory Dalton WPtel: [facility]3 [phone] (30 min) Complex 05/09/2017 Patient Education: Patient Medication Summary Completed 05/09/2017 Patient Education: Obesity Completed 05/09/2017 Visit Plan: Rash-left foot-Dr Long in to evaluate rash-instructed patient to start using ketoconazole plus betamethasone equal parts TID -follow up in 2 weeks, sooner if needed. 04/25/2017 Appointment: Glory Dalton WPtel: [phone] (30 min) Complex 04/25/2017 Patient Education: Patient Medication Summary Completed 04/25/2017 Visit Plan: Cellulitis of left foot-no longer draining-no open areas-no excoriation-slightly red-okay to d/c all treatments-keep clean and monitor-call if redness does not resolve Rash-resolved 2017 Appointment: Glory Dalton WPtel: [phone] (30 min) Complex 2017 Patient Education: Patient Medication Summary Completed 2017 Patient Education: Obesity Completed 2017 Visit Plan: Cellulitis-left foot-MSSA gcajneub-fdvkqbsfl-ylhtm air in the evening-continue bactroban ointment twice daily-stop using alcohol on foot-no papertowels or abrasives to foot Hvns-fwnm-km for betamethasone provided and instructed on use 03/29/2017 Appointment: Glory Dalton WPtel: [phone] [place] (30 min) Complex 03/29/2017 Patient Education: Patient Medication Summary Completed 03/29/2017 Patient Education: Obesity Completed 03/29/2017 Appointment: Glory Dalton WPtel: [phone] (30 min) Complex 03/22/2017 Visit Plan: Cellulitis [...] warmth, discharge. 03/17/2017 Appointment: Antoinette Arndt WPtel: [address] [place], [place] [address] (30 min) Complex 03/17/2017 Patient Education: Patient [...] the break. 01/18/2017 Appointment: Quyen Long WPtel: [phone] [facility] (15 min) Moderate 01/18/2017 Patient Education: [...] and weakness. 10/19/2016 Appointment: Quyen Long WPtel: [phone] [facility] (15 min) Moderate 10/19/2016 Patient Education: Patient Medication Summary Completed 10/19/2016 Patient Education: Obesity Completed 10/19/2016 Visit Plan: Left shoulder pain-hospital f/u recent shoulder surgery with Dr Wilson-doing well-sees Dr Wilson this afternoon for suture removal-pain improved Hipw-xyfz-sumsviz fungal infection-will treat with ket oconazole -follow up in 2 weeks 08/17/2016 Appointment: [phone] [phone] [place] (30 min) Complex 08/17/2016 Patient [...] to rehabilitate. 07/20/2016 Appointment: Quyen Long WPtel: [phone] [facility] (15 min) Moderate 07/20/2016 Patient Education: [...] strengthening. 04/19/2016 Appointment: Quyen Long [facility]Ptel: [phone] [place] (15 min) Moderate 04/19/2016 Patient Education: Patient [...] appointment. 01/19/2016 Appointment: Quyen Long WPtel: [phone] [facility] [place] (15 min) Moderate 01/19/2016 Patient Education: Patient Medication Summary Completed 01/19/2016 Patient Education: Obesity Completed 01/19/2016 Patient Education: Hypertension Completed 01/19/2016 Referral: Dr Mccauley Referral Completed 11/11/2015 Care Plan: Referral Order SNOMED-CT : [id number] Pending 11/03/2015 Visit Plan: Hypertension - well [...] injection 10/16/2015 Appointment: Quyen Long WPtel: [phone] [facility] [place] (15 min) Moderate 10/16/2015 Patient Education: Patient [...] - 02/19/2015 Appointment: Quyen Long WPtel: [phone] [facility] [place] (15 min) Moderate 02/19/2015 Patient Education: Patient [...] ear drops. 11/20/2014 Appointment: Quyen Long WPtel: [phone] [facility] [place] Follow up 11/20/2014 Patient Education: Patient Medication [...] doctor ESME. 11/05/2014 Appointment: Quyen Long WPtel: [address] [place], [place] [id number] (15 min) Moderate 11/05/2014 Patient Education: Patient [...] to participate in activities outside of the custodial. He has a family that would like [...] and foot. 09/19/2014 Appointment: Quyen Long WPtel: [facility] [place] [place] Follow up 09/19/2014 Patient Education: Patient [...] deficiency - recommended repeat of vitamin d [id number] weekly x 12 weeks and increase vitamin d to 5000 units daily. 07/24/2014 Appointment: Quyen Long WPtel: [facility]5 [facility] [place] Follow up 07/24/2014 Patient Education: [...] level 05/23/2014 Appointment: Glory Dalton WPtel: [phone] [place] Follow up 05/23/2014 Patient Education: Patient Medication Summary Completed 05/23/2014 Patient Education: .Cervicalgia Neck Pain Completed 05/23/2014 Appointment: Quyen Long WPtel: [facility] [place] Follow up 05/22/2014 Visit Plan: [...] home. 04/18/2014 Appointment: Quyen Long [facility]Ptel: [phone] [facility] [place] Follow up 04/18/2014 Patient Education: Patient Medication Summary Completed 04/18/2014 Patient Education: Hypertension Completed 04/18/2014 Appointment: Quyen Long [facility]Ptel: [phone] [facility] [place] Follow up 02/27/2014 Visit Plan: Insomnia - Pt has been advised to increase the light in the house during the day, and start dimming the lights during the evening hours. Pt has been advised to cut out caffeine after 5pm. Daytime napping worsens night time insomnia. START TRAZODONE AND MONITOR SYMPTOMS. Vitamin D lrrjvarvgm-ttfgngnj-yovffzsr vitamin D 50,000 units weekly for 12 additional weeks. Hypoxemia-continue night time oxygen 02/21/2014 Appointment: [facility] [phone] [phone] Follow up 02/21/2014 Patient Education: Patient [...] mobic. 11/28/2013 Appointment: Quyen Long WPtel: [phone] [facility] [place] Follow up 11/28/2013 Patient Education: Patient Medication [...] study. 11/14/2013 Appointment: Quyen Long WPtel: [phone] [facility] [place] [place] New Patient 11/14/2013 Patient Education: Patient [...] START TRAZODONE AND MONITOR SYMPTOMS. Vitamin D kwurnkrjua-ynjvdchi-zcpbuzfm vitamin D 50,000 units weekly for 12 additional weeks. Hypoxemia-continue night time oxygen Your left foot needs air in the evenings for at least a couple of hours -continue dressing changes BID with bactroban ointment Betamethasone to arm/chest twice daily for itching until resolved Continue ketoconazole to face as directed Follow up in 10 days . Cellulitis-left foot-MSSA eqrvadwg-bygdnhygd-ixdri air in the evening-continue bactroban ointment twice daily-stop using alcohol on foot-no papertowels or abrasives to foot Fkno-oqjh-vq for betamethasone provided and instructed on use . Post polio syndrome - back-up brace [...] in 2 weeks, sooner if needed. . pt down one pound . Post-polio [...] and dressings to lower leg. . Rash-left lcjn-vkulpchr-tvgwivgjko patient to continue using ketoconazole plus betamethasone [...] deficiency - recommended repeat of vitamin d [id number] weekly x 12 weeks and increase vitamin [...] DOPA paperwork for health care surrogate. . Post polio syndrome -right leg weakness -patient needs repair and adjustment of his right leg brace that helps with his symptoms of instability and weakness and allows him to ambulate -will send rx to [facility] . Hypertension - well controlled - [...] Wilson this afternoon for suture removal-pain improved Mqoo-yomq-jzzurje fungal infection-will treat with ketoconazole -follow up in 2 weeks . Tinea pedis-discussed natural expected course of [...] his sister verbalize understanding of plan. . Edema - pt has been advised [...] to participate in activities outside of the custodial. He has a family that would like [...] for arthritis, continue exercising for strengthening. . Cellulitis - left foot - The [...] in pain, worsening redness, warmth, discharge. . Bronchitis - acute case of bronchitis identified. Pt has been given antibiotics, breathing treatments as appropriate, and pt has been instructed to call if symptoms are not improved, or if symptoms acutely worsen. . Hypertension - well controlled - continue with current medications, continue with no added salt diet. Pt has been encouraged to exercise daily. The pt has been advised to call the office if there are any acute concerns about change in blood pressure readings at home. 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 . Bronchitis - acute case of bronchitis [...] resolving, can consider Auralgan ear drops. . Hypertension - well controlled - continue [...] if redness does not resolve Rash-resolved . Shingles - Herpes Zoster - acute [...]
--- OUTSIDE RECORDS SUMMARY | 2018-11-10 16:28 | XMS REPORT | CCD ---
Author Author Quyen Long Organization Quyen Long MD, [facility] Address [address] [place] [address] Phone Care Team Providers Care Circular Shear Operator Name Role Phone PP Unavailable CCM Unavailable Summary Purpose Interface Exchange Insurance Providers Payer name Policy type / Coverage type Covered libertarian ID Effective Begin Date Effective End Date WPS Medicare Part B Medicare Part B [id number] 2017 Unknown [facility] Medicare Part B [id number] 2017 Unknown Family history Grandmother Diagnosis Age [...] Description Effective Dates Tobacco history SNOMED CT: 9258487 Former smoker 1.5 pack daily x 45 years 12/27/2017 Marital status Unknown 10/19/2016 Living arrangements Unknown Assisted Living [facility] 04/19/2016 Number of children Unknown 1 son - lives in [place] 11/14/2013 Employment Unknown 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 11/14/[address]: [id number] Never drinks alcohol 11/14/2013 Has the patient [...] Start Date Stop Date Status Fill Instructions Zithromax Z-Brian 250 mg tablet RxNorm: 252682 1 Tablet(s) PO UD 06/14/2018 No Stop Date Active zpack as directed x1 tamsulosin 0.4 mg capsule RxNorm: 260906 TAKE ONE CAPSULE BY MOUTH EVERY EVENING 06/12/2018 01/07/2019 Active gabapentin 300 mg capsule RxNorm: 031288 TAKE ONE CAPSULE BY MOUTH TWICE A DAY 05/31/2018 09/27/2018 Active losartan 50 mg tablet RxNorm: 558357 TAKE ONE TABLET BY MOUTH DAILY 05/01/2018 09/27/2018 Active Toprol XL 50 mg tablet,extended release RxNorm: 816470 1 Tablet(s) PO daily 04/20/2018 No Stop Date Active Vitamin D3 5,000 unit tablet RxNorm: 388828 TAKE ONE TABLET BY MOUTH DAILY 04/05/2018 02/28/2019 Active trazodone 50 mg tablet RxNorm: 362187 TAKE ONE TABLET BY MOUTH AT BEDTIME 02/27/2018 07/26/2018 Active ranitidine 150 mg tablet RxNorm: 070394 1 Tablet(s) PO BID 02/13/2018 02/07/2019 Active hydrochlorothiazide 25 mg tablet RxNorm: 318415 TAKE ONE TABLET BY MOUTH DAILY 02/13/2018 11/09/2018 Active albuterol sulfate 2.5 mg/3 mL (0.083 %) solution for nebulization RxNorm: 199073 3 Milliliter(s) INH UD 02/08/2018 No Stop Date Active please deliver all of his prescriptions thank you cefdinir 300 mg capsule RxNorm: 657525 1 Capsule(s) PO BID 02/08/2018 02/17/2018 Inactive prednisone 20 mg tablet RxNorm: 442815 2 Tablet(s) PO daily 02/08/2018 02/12/2018 Inactive fluticasone 50 mcg/actuation nasal spray,suspension RxNorm: 2155682 1 [place] NASAL BID 02/07/2018 06/06/2018 Inactive fluticasone 50 mcg/actuation nasal spray,suspension RxNorm: 4841877 1 [place] NASAL BID 02/07/2018 02/06/2018 Inactive Zithromax Z-Brian 250 mg tablet RxNorm: 756760 1 Tablet(s) PO UD 02/07/2018 03/14/2018 Inactive zdavinck as directed tamsulosin 0.4 mg capsule RxNorm: 886190 TAKE ONE CAPSULE BY MOUTH EVERY EVENING 01/13/2018 06/11/2018 Inactive cetirizine 10 mg tablet RxNorm: 7015980 TAKE ONE TABLET BY MOUTH EVERY NIGHT AT BEDTIME 01/02/2018 04/01/2018 Inactive Vitamin D3 5,000 unit tablet RxNorm: 549388 TAKE ONE TABLET BY MOUTH DAILY 01/02/2018 04/04/2018 Inactive cetirizine 10 mg tablet RxNorm: 5030125 1 Tablet(s) PO QHS 12/26/2017 01/01/2018 Inactive cetirizine 10 mg tablet RxNorm: 6894123 1 Tablet(s) PO QHS 12/26/2017 12/25/2017 Inactive losartan 50 mg tablet RxNorm: 665128 TAKE ONE TABLET BY MOUTH DAILY (STARTING 09-09-2017) 09/29/2017 03/27/2018 Inactive Request already responded to by other means (e.g. phone or fax) losartan 50 mg tablet RxNorm: 783435 1 Tablet(s) PO daily 09/27/2017 09/26/2017 Inactive losartan 50 mg tablet RxNorm: 383381 1 Tablet(s) PO daily 09/27/2017 09/28/2017 Inactive Bactrim DS 800 mg-160 mg tablet RxNorm: 903760 1 Tablet(s) PO BID 09/13/2017 09/19/2017 Inactive Kenalog 40 mg/mL suspension for injection RxNorm: 8110554 1 Milliliter(s) Inj 09/07/2017 09/07/2017 Inactive trazodone 50 mg tablet RxNorm: 505469 TAKE ONE TABLET BY MOUTH AT BEDTIME 08/16/2017 02/11/2018 Inactive gabapentin 300 mg capsule RxNorm: 577936 1 Capsule(s) PO BID 08/03/2017 01/29/2018 Inactive Vitamin D3 5,000 unit tablet RxNorm: 068011 TAKE ONE TABLET BY MOUTH DAILY 08/01/2017 12/28/2017 Inactive ketoconazole 2 % topical cream RxNorm: 613297 APPLY TO AFFECTED AREA(S) TWO TIMES A DAY 05/31/2017 06/29/2017 Inactive hydrochlorothiazide 25 mg tablet RxNorm: 265663 TAKE ONE TABLET BY MOUTH DAILY 05/16/2017 02/09/2018 Inactive lisinopril 20 mg tablet RxNorm: 437525 TAKE ONE TABLET BY MOUTH DAILY 05/16/2017 09/06/2017 Inactive ketoconazole 2 % topical cream RxNorm: 763021 1 Application TOP BID 03/29/2017 04/11/2017 Inactive apply to [facility]-deliver to [facility] please betamethasone dipropionate 0.05 % topical ointment RxNorm: 908114 1 Application TOP BID 03/29/2017 04/11/2017 Inactive apply to arm/chests for itching gabapentin 300 mg capsule RxNorm: 678502 1 Capsule(s) PO BID 03/29/2017 08/02/2017 Inactive trazodone 50 mg tablet RxNorm: 659117 TAKE ONE TABLET BY MOUTH AT BEDTIME 03/28/2017 08/15/2017 Inactive Vesicare 10 mg tablet RxNorm: 297556 TAKE ONE TABLET BY MOUTH EVERY NIGHT AT BEDTIME 03/21/2017 12/26/2017 Inactive Vesicare 10 mg tablet RxNorm: 933673 TAKE ONE TABLET BY MOUTH EVERY NIGHT AT BEDTIME 03/21/2017 06/06/2017 Inactive doxycycline hyclate 100 mg capsule RxNorm: 1604905 1 Capsule(s) PO BID 03/18/2017 03/27/2017 Inactive mupirocin 2 % topical ointment RxNorm: 178846 1 Application TOP BID 03/17/2017 No Stop Date Active doxycycline hyclate 100 mg tablet RxNorm: 531412 1 Tablet(s) PO BID 03/09/2017 03/15/2017 Inactive Take probiotic BID while on ABT doxycycline hyclate 100 mg tablet RxNorm: 923020 1 Tablet(s) PO BID 03/09/2017 03/08/2017 Inactive Take probiotic BID while on ABT meloxicam 15 mg tablet RxNorm: 483464 TAKE ONE TABLET BY MOUTH DAILY 02/10/2017 12/06/2017 Inactive Vitamin D3 5,000 unit tablet RxNorm: 950252 TAKE ONE TABLET BY MOUTH DAILY 02/08/2017 07/31/2017 Inactive Vitamin B-12 1,000 mcg/mL injection solution RxNorm: 858424 INJECT 1ML MONTHLY 01/24/2017 07/22/2017 Inactive lisinopril 20 mg tablet RxNorm: 393337 TAKE ONE TABLET BY MOUTH DAILY 12/13/2016 04/11/2017 Inactive trazodone 50 mg tablet RxNorm: 724453 TAKE ONE TABLET BY MOUTH AT BEDTIME 09/24/2016 03/22/2017 Inactive Vitamin D3 5,000 unit tablet RxNorm: 588747 TAKE ONE TABLET BY MOUTH DAILY 09/20/2016 02/07/2017 Inactive lisinopril 20 mg tablet RxNorm: 377449 TAKE ONE TABLET BY MOUTH DAILY 09/13/2016 12/12/2016 Inactive ketoconazole 2 % topical cream RxNorm: 604141 1 Application TOP BID 08/17/2016 08/30/2016 Inactive deliver to [facility] please Pepcid 20 mg tablet RxNorm: 759056 TAKE ONE TABLET BY MOUTH TWICE A DAY 07/12/2016 12/26/2017 Inactive omega-3 acid ethyl esters 1 gram capsule RxNorm: 779466 3 Capsule(s) PO daily 06/18/2016 12/14/2016 Inactive omega-3 acid ethyl esters 1 gram capsule RxNorm: 040708 3 Capsule(s) PO daily 06/18/2016 06/17/2016 Inactive trazodone 50 mg tablet RxNorm: 054861 TAKE ONE TABLET BY MOUTH AT BEDTIME 06/08/2016 08/06/2016 Inactive tamsulosin 0.4 mg capsule RxNorm: 274547 Capsule(s) TAKE ONE CAPSULE BY MOUTH EVERY EVENING 06/04/2016 12/30/2016 Inactive hydrochlorothiazide 25 mg tablet RxNorm: 730275 TAKE ONE TABLET BY MOUTH DAILY 05/10/2016 05/09/2016 Inactive hydrochlorothiazide 25 mg tablet RxNorm: 053850 TAKE ONE TABLET BY MOUTH DAILY 05/10/2016 02/12/2018 Inactive Pepcid 20 mg tablet RxNorm: 859976 1 Tablet(s) PO BID 03/18/2016 03/17/2016 Inactive Pepcid 20 mg tablet RxNorm: 566740 1 Tablet(s) PO BID 03/18/2016 07/11/2016 Inactive lisinopril 20 mg tablet RxNorm: 253442 TAKE ONE TABLET BY MOUTH DAILY 03/18/2016 08/14/2016 Inactive Vitamin D3 5,000 unit tablet RxNorm: 663279 Tablet(s) TAKE ONE TABLET BY MOUTH DAILY 03/18/2016 09/13/2016 Inactive trazodone 50 mg tablet RxNorm: 784972 TAKE ONE TABLET BY MOUTH AT BEDTIME 03/15/2016 06/07/2016 Inactive Vesicare 10 mg tablet RxNorm: 425225 1 Tablet(s) PO QHS 03/15/2016 02/07/2017 Inactive meloxicam 15 mg tablet RxNorm: 047080 TAKE ONE TABLET BY MOUTH DAILY 03/01/2016 01/24/2017 Inactive Bactrim DS 800 mg-160 mg tablet RxNorm: 885386 1 Tablet(s) PO BID 02/10/2016 02/09/2016 Inactive Bactrim DS 800 mg-160 mg tablet RxNorm: 390150 1 Tablet(s) PO BID 02/10/2016 02/16/2016 Inactive Cipro 500 mg tablet RxNorm: 047544 1 Tablet(s) PO BID 02/06/2016 02/09/2016 Inactive Cipro 500 mg tablet RxNorm: 796817 1 Tablet(s) PO BID 02/06/2016 02/05/2016 Inactive Pennsaid 20 mg/gram/actuation (2 %) topical soln in metered- dose pump RxNorm: 8953731 2 pumps TOP BID 01/19/2016 04/19/2016 Inactive tamsulosin 0.4 mg capsule RxNorm: 101945 TAKE ONE CAPSULE BY MOUTH EVERY EVENING 01/12/2016 06/03/2016 Inactive cyanocobalamin (vit B-12) 1,000 mcg/mL injection solution RxNorm: 145300 INJECT 1 ML INTRAMUSCULARLY MONTHLY 01/01/2016 10/26/2016 Inactive Request already responded to by other means (e.g. phone or fax) Vitamin B-12 1,000 mcg/mL injection solution RxNorm: 430791 1 Milliliter(s) Inj monthly 12/24/2015 04/19/2016 Inactive please give syringes for injections Vitamin D3 5,000 unit tablet RxNorm: 610393 TAKE ONE TABLET BY MOUTH DAILY 12/08/2015 03/06/2016 Inactive pantoprazole 40 mg tablet,delayed release RxNorm: 403522 TAKE ONE TABLET BY MOUTH DAILY 12/08/2015 03/17/2016 Inactive trazodone 50 mg tablet RxNorm: 830676 TAKE ONE TABLET BY MOUTH AT BEDTIME 11/10/2015 03/08/2016 Inactive lisinopril 20 mg tablet RxNorm: 532062 TAKE ONE TABLET BY MOUTH DAILY 09/08/2015 03/05/2016 Inactive Vitamin D3 5,000 unit tablet RxNorm: 858624 1 Tablet(s) PO daily 08/12/2015 12/07/2015 Inactive pantoprazole 40 mg tablet,delayed release RxNorm: 552925 1 Tablet(s) PO daily 08/12/2015 12/07/2015 Inactive tamsulosin 0.4 mg capsule RxNorm: 497162 TAKE ONE CAPSULE BY MOUTH EVERY EVENING 07/21/2015 12/17/2015 Inactive trazodone 50 mg tablet RxNorm: 945105 TAKE ONE TABLET BY MOUTH AT BEDTIME 05/09/2015 10/05/2015 Inactive hydrochlorothiazide 25 mg tablet RxNorm: 863055 1 Tablet(s) PO QAM 04/30/2015 04/29/2015 Inactive hydrochlorothiazide 25 mg tablet RxNorm: 327587 TAKE ONE TABLET BY MOUTH DAILY 04/30/2015 02/12/2018 Inactive pantoprazole 40 mg tablet,delayed release RxNorm: 989092 1 Tablet(s) PO daily 04/16/2015 08/11/2015 Inactive meloxicam 15 mg tablet RxNorm: 222020 TAKE ONE TABLET BY MOUTH DAILY 03/03/2015 02/25/2016 Inactive lisinopril 20 mg tablet RxNorm: 234714 1 Tablet(s) PO daily 02/19/2015 09/07/2015 Inactive tamsulosin 0.4 mg capsule RxNorm: 573308 TAKE ONE CAPSULE BY MOUTH EVERY EVENING 01/20/2015 07/18/2015 Inactive cyanocobalamin (vit B-12) 1,000 mcg/mL injection solution RxNorm: 360064 Milliliter(s) INJECT 1ML INTRAMUSCULARLY MONTHLY 12/12/2014 12/22/2014 Inactive trazodone 50 mg tablet RxNorm: 845159 TAKE ONE TABLET BY MOUTH AT BEDTIME 11/14/2014 05/08/2015 Inactive erythromycin 5 mg/gram (0.5 %) eye ointment RxNorm: 913817 1/2 inch OPH QID 11/05/2014 11/14/2014 Inactive acyclovir 800 mg tablet RxNorm: 982102 1 Tablet(s) PO TID 11/05/2014 11/18/2014 Inactive Zofran 4 mg tablet RxNorm: 854101 1 Tablet(s) PO Q4H as needed nausea 11/05/2014 01/03/2015 Inactive Duragesic 12 mcg/hr transdermal patch RxNorm: 380494 1 Patch TD Q72H 11/05/2014 02/04/2015 Inactive Imitrex 100 mg tablet RxNorm: 869269 1 Tablet(s) PO q 12 hours 11/04/2014 04/15/2015 Inactive naproxen 500 mg tablet RxNorm: 183626 1 Tablet(s) PO BID 10/30/2014 11/01/2014 Inactive meloxicam 15 mg tablet RxNorm: 997865 TAKE ONE TABLET BY MOUTH DAILY 10/04/2014 03/02/2015 Inactive Vesicare 5 mg tablet RxNorm: 446306 TAKE ONE TABLET BY MOUTH AT BEDTIME 09/16/2014 07/16/2015 Inactive Vitamin D2 50,000 unit capsule RxNorm: 094128 1 Capsule(s) PO QW 09/06/2014 07/16/2015 Inactive once weekly x 12 weeks tamsulosin ER 0.4 mg capsule,extended release 24 hr RxNorm: 542071 TAKE ONE CAPSULE BY MOUTH EVERY EVENING 06/24/2014 12/20/2014 Inactive tamsulosin ER 0.4 mg capsule,extended release 24 hr RxNorm: 287074 1 Capsule(s) PO QPM 06/24/2014 01/19/2015 Inactive Vitamin D2 50,000 unit capsule RxNorm: 769869 1 Capsule(s) PO QW 05/27/2014 09/05/2014 Inactive once weekly x 12 weeks Vesicare 5 mg tablet RxNorm: 130762 1 Tablet(s) PO QHS 05/23/2014 05/22/2014 Inactive Vesicare 5 mg tablet RxNorm: 511866 1 Tablet(s) PO QHS 05/23/2014 09/15/2014 Inactive trazodone 50 mg tablet RxNorm: 495715 TAKE ONE TABLET BY MOUTH AT BEDTIME 05/13/2014 11/08/2014 Inactive trazodone 50 mg tablet RxNorm: 329166 TAKE ONE TABLET BY MOUTH AT BEDTIME 05/13/2014 11/08/2014 Inactive hydrochlorothiazide 25 mg tablet RxNorm: 615648 1 Tablet(s) PO QA 04/18/2014 01/12/2015 Inactive Vitamin D2 50,000 unit capsule RxNorm: 896592 TAKE ONE CAPSULE BY MOUTH ONCE WEEKLY FOR 12 WEEKS 04/09/2014 05/14/2014 Inactive trazodone 50 mg tablet RxNorm: 443040 1 Tablet(s) PO QHS 02/22/2014 05/12/2014 Inactive trazodone 50 mg tablet RxNorm: 602570 1 Tablet(s) PO QHS 02/22/2014 02/21/2014 Inactive Vitamin D2 50,000 unit capsule RxNorm: 538592 TAKE ONE CAPSULE BY MOUTH ONCE WEEKLY FOR 12 WEEKS 02/07/2014 03/06/2014 Inactive meloxicam 15 mg tablet RxNorm: 073173 TAKE ONE TABLET BY MOUTH ONCE A DAY 02/07/2014 08/05/2014 Inactive meloxicam 15 mg tablet RxNorm: 395166 TAKE ONE TABLET BY MOUTH ONCE A DAY 02/07/2014 2014 Inactive clotrimazole 1 % topical cream RxNorm: 199780 1 Application TOP BID 12/25/2013 07/16/2015 Inactive Diflucan 150 mg tablet RxNorm: 142391 1 Tablet(s) PO daily 12/25/2013 12/31/2013 Inactive tamsulosin ER 0.4 mg capsule,extended release 24 hr RxNorm: 272363 1 Capsule(s) PO QPM 11/28/2013 06/23/2014 Inactive cyanocobalamin (vit B-12) 1,000 mcg/mL injection solution RxNorm: 499505 1 Milliliter(s) Inj 11/28/2013 12/12/2014 Inactive Vitamin B-12 1,000 mcg/mL injection solution RxNorm: 218320 1 Milliliter(s) Inj monthly 11/21/2013 02/13/2015 Inactive please give syringes for injections Vitamin D2 50,000 unit capsule RxNorm: 221422 1 Capsule(s) PO QW x 12 weeks 11/21/2013 02/06/2014 Inactive [SAVINGS FOR UNINSURED PATIENTS -- to take addtional 2000 units daily Vitamin B-12 1,000 mcg/mL injection solution RxNorm: 241851 1 Milliliter(s) Inj monthly 11/21/2013 11/20/2013 Inactive meloxicam 15 mg tablet RxNorm: 980190 1 Tablet(s) PO daily 11/20/2013 11/19/2013 Inactive [SAVINGS FOR UNINSURED PATIENTS -- BIN:723907, PCN: [id number], Group: [id number], ID# [id number], Process claim through [employer], for questions: . THIS IS NOT INSURANCE.] meloxicam 15 mg tablet RxNorm: 441548 1 Tablet(s) PO daily 11/20/2013 02/06/2014 Inactive [SAVINGS FOR UNINSURED PATIENTS -- BIN:363634, PCN: [id number], Group: [id number], ID# [id number], Process claim through [employer], for questions: . THIS IS NOT INSURANCE.] meloxicam 15 mg tablet RxNorm: 165347 1 Tablet(s) PO daily 11/20/2013 11/19/2013 Inactive Voltaren 1 % topical gel RxNorm: 546624 4 Application TOP QID apply to back, affected joints four times daily 11/14/2013 11/20/2013 Inactive trazodone 50 mg tablet RxNorm: 786590 1 Tablet(s) PO QHS No Start Date Active Vitamin D2 50,000 unit capsule RxNorm: 695040 1 Capsule(s) PO QW No Start Date 05/26/2014 Inactive once weekly x 12 weeks Zithromax Z-Brian 250 mg tablet RxNorm: 019969 1 Tablet(s) PO UD No Start Date 02/06/2018 Inactive Vitamin D2 50,000 unit capsule RxNorm: 473786 1 Capsule(s) PO QW No Start Date 11/20/2013 Inactive gabapentin 300 mg capsule RxNorm: 823549 1 Capsule(s) PO TID No Start Date 03/28/2017 Inactive Vesicare 10 mg tablet RxNorm: 508365 1 Tablet(s) PO QHS No Start Date 03/14/2016 Inactive Toprol XL 25 mg tablet,extended release RxNorm: 600118 1 Tablet(s) PO daily No Start Date 04/19/2018 Inactive Vitamin D3 5,000 unit tablet RxNorm: 684106 1 Tablet(s) PO daily No Start Date 08/11/2015 Inactive Celebrex 200 mg capsule RxNorm: 500976 1 Capsule(s) PO BID No Start Date 07/19/2016 Inactive Imitrex 50 mg tablet RxNorm: 939373 1 Tablet(s) PO now and may repeat up to four times in 24 hours No Start Date 11/03/2014 Inactive Zofran 4 mg tablet RxNorm: 052081 1 Tablet(s) PO Q8 as needed nausea and vomitting No Start Date 10/15/2015 Inactive ranitidine 150 mg tablet RxNorm: 908582 1 Tablet(s) PO BID No Start Date 02/12/2018 Inactive Phenergan 25 mg tablet RxNorm: 632475 1 Tablet(s) PO now No Start Date 04/15/2015 Inactive Tums oral RxNorm: 071535 oral No Start Date 10/15/2015 Inactive Medication Administered Medication Codes Instructions Start Date Status Kenalog 40 mg/mL suspension for injection RxNorm: 0006343 1Milliliter 09/07/2017 No longer Active cyanocobalamin (vit B-12) 1,000 mcg/mL injection solution RxNorm: 486956 1Milliliter 11/28/2013 No longer Active Immunizations Vaccine [...] recently went to an eye doctor in [place]. Reports that he did have hemorrhaging in his right eye which is getting better. headache 04/18/2014 Pt states he recently went to an eye doctor in [place] shortness of breath 02/21/2014 blisters 12/25/2013 insomnia 11/28/2013 back pain 11/14/2013 Results Observation Observation Code Item Item Code Result Date Vitamin D 25 Oh Soz3504 VITAMIN D, 25 HYDROXY 66.80 ng/mL 03/14/2018 [...] 28.5 pg 03/14/2018 Cbc With Differential Ord2 [place]% 7.6 % 03/14/2018 Cbc With Differential Ord2 [...] 1.28 K/ul 03/14/2018 Cbc With Differential Ord2 [place] ABS# 0.4 K/ul 03/14/2018 Cbc With Differential [...] Lipid Ord30 C/HDL 5.0 Ratio 06/27/2017 %Hba1C Bqk956 % HbA1c 43196- 6 6.2 % 06/27/2017 %Hba1C Ban900 Gluc Ave 131 mg/dL 06/27/2017 Comp Metabolic Orj849 NA 140 mEq/L 06/27/2017 Comp Metabolic Wte248 K 4.2 mEq/L 06/27/2017 Comp Metabolic Apy289 CL 100 mEq/L 06/27/2017 Comp Metabolic Mra343 CO2 32.0 mEq/L 06/27/2017 Comp Metabolic Anq367 ANION GAP 12 06/27/2017 Comp Metabolic Sno129 GLUCOSE 118 mg/dL 06/27/2017 Comp Metabolic Qoo213 Creat 1.0 mg/dL 06/27/2017 Comp Metabolic Hoj601 eGFR 82 ml/min/1.73m2 06/27/2017 Comp Metabolic Ncj845 BUN 26 mg/dL 06/27/2017 Comp Metabolic Rup583 B/C Ratio 27.1 Ratio 06/27/2017 Comp Metabolic Bmm947 CALCIUM 9.6 mg/dL 06/27/2017 Comp Metabolic Prp085 ALK PHOS 46 U/L 06/27/2017 Comp Metabolic Qdi390 AST(SGOT) 23 U/L 06/27/2017 Comp Metabolic Sfh223 ALT(SGPT) 31 U/L 06/27/2017 Comp Metabolic Zlz945 BILI T 0.5 mg/dL 06/27/2017 Comp Metabolic Bkl789 ALBUMIN 4.2 g/dL 06/27/2017 Comp Metabolic Nef935 TPRO 6.6 g/dL 06/27/2017 Comp Metabolic Sdq916 GLOB 2.4 g/dL 06/27/2017 Comp Metabolic Cbl907 A/G Ratio 1.7 Ratio 06/27/2017 Comp Metabolic Tvz884 Osmo 285 mOsmo 06/27/2017 Cbc With Differential [...] 29.0 pg 10/20/2016 Cbc With Differential Ord2 [place]% 9.0 % 10/20/2016 Cbc With Differential Ord2 [...] 1.33 K/ul 10/20/2016 Cbc With Differential Ord2 [place] ABS# 0.4 K/ul 10/20/2016 Cbc With Differential Ord2 Eos ABS# 0.2 K/ul 10/20/2016 Cbc With Differential Ord2 Baso ABS# 0.0 K/ul 10/20/2016 Comp Metabolic Ikd510 NA 143 mEq/L 10/20/2016 Comp Metabolic Zxg876 K 4.6 mEq/L 10/20/2016 Comp Metabolic Koa301 CL 104 mEq/L 10/20/2016 Comp Metabolic Xgh254 CO2 31.0 mEq/L 10/20/2016 Comp Metabolic Ckx648 ANION GAP 13 10/20/2016 Comp Metabolic Jqf575 GLUCOSE 117 mg/dL 10/20/2016 Comp Metabolic Rgp334 Creat 1.1 mg/dL 10/20/2016 Comp Metabolic Zcd163 eGFR 74 ml/min/1.73m2 10/20/2016 Comp Metabolic Wyu824 BUN 27 mg/dL 10/20/2016 Comp Metabolic Xrs571 B/C Ratio 25.7 Ratio 10/20/2016 Comp Metabolic Dvj716 CALCIUM 9.3 mg/dL 10/20/2016 Comp Metabolic Nbx117 ALK PHOS 47 U/L 10/20/2016 Comp Metabolic Esy756 AST(SGOT) 18 U/L 10/20/2016 Comp Metabolic Mau571 ALT(SGPT) 22 U/L 10/20/2016 Comp Metabolic Nsp315 BILI T 0.5 mg/dL 10/20/2016 Comp Metabolic Zws620 ALBUMIN 3.9 g/dL 10/20/2016 Comp Metabolic Fwt802 TPRO 6.5 g/dL 10/20/2016 Comp Metabolic Csa558 GLOB 2.6 g/dL 10/20/2016 Comp Metabolic Rve130 A/G Ratio 1.5 Ratio 10/20/2016 Comp Metabolic Xjz177 Osmo 291 mOsmo 10/20/2016 Tsh Ord6 hTSH II 1.56 uIU/mL 10/20/2016 Lipid Ord30 CHOL 153 mg/dL 10/20/2016 Lipid Ord30 HDL 34.0 mg/dl 10/20/2016 Lipid Ord30 TRIG 123 mg/dL 10/20/2016 Lipid Ord30 LDL 94 mg/dL 10/20/2016 Lipid Ord30 C/HDL 4.5 Ratio 10/20/2016 B12 Xsz677 B12 544.00 pg/ml 10/20/2016 Comp Metabolic Gll395 NA 138 mEq/L 05/13/2016 Comp Metabolic Jff416 K 4.2 mEq/L 05/13/2016 Comp Metabolic Bhb044 CL 102 mEq/L 05/13/2016 Comp Metabolic Yta235 CO2 30.0 mEq/L 05/13/2016 Comp Metabolic Fuo640 ANION GAP 10 05/13/2016 Comp Metabolic Nqz230 GLUCOSE 113 mg/dL 05/13/2016 Comp Metabolic Nmq038 Creat 1.0 mg/dL 05/13/2016 Comp Metabolic Ebv954 eGFR 77 ml/min/1.73m2 05/13/2016 Comp Metabolic Xsn464 BUN 26 mg/dL 05/13/2016 Comp Metabolic Wqa954 B/C Ratio 25.5 Ratio 05/13/2016 Comp Metabolic Bat983 CALCIUM 9.7 mg/dL 05/13/2016 Comp Metabolic Uwg966 ALK PHOS 51 U/L 05/13/2016 Comp Metabolic Fxt260 AST(SGOT) 17 U/L 05/13/2016 Comp Metabolic Zuj533 ALT(SGPT) 20 U/L 05/13/2016 Comp Metabolic Eyf938 BILI T 0.6 mg/dL 05/13/2016 Comp Metabolic Nfx629 ALBUMIN 4.0 g/dL 05/13/2016 Comp Metabolic Xnt606 TPRO 6.6 g/dL 05/13/2016 Comp Metabolic Yyj497 GLOB 2.6 g/dL 05/13/2016 Comp Metabolic Pfa830 A/G Ratio 1.6 Ratio 05/13/2016 Comp Metabolic Wuu633 Osmo 281 mOsmo 05/13/2016 Lipid Ord30 CHOL [...] 89.0 fl 02/11/2016 Cbc With Differential Ord2 [place]% 7.7 % 02/11/2016 Cbc With Differential Ord2 [...] 1.18 K/ul 02/11/2016 Cbc With Differential Ord2 [place] ABS# 0.4 K/ul 02/11/2016 Cbc With Differential Ord2 Eos ABS# 0.1 K/ul 02/11/2016 Cbc With Differential Ord2 Baso ABS# 0.0 K/ul 02/11/2016 Comp Metabolic Ngt788 NA 138 mEq/L 02/11/2016 Comp Metabolic Uur225 K 4.0 mEq/L 02/11/2016 Comp Metabolic Zju235 CL 97 mEq/L 02/11/2016 Comp Metabolic Sts342 CO2 32.0 mEq/L 02/11/2016 Comp Metabolic Aiv705 ANION GAP 13 02/11/2016 Comp Metabolic Hex926 GLUCOSE 117 mg/dL 02/11/2016 Comp Metabolic Lpr741 Creat 1.0 mg/dL 02/11/2016 Comp Metabolic Rdy263 eGFR 81 ml/min/1.73m2 02/11/2016 Comp Metabolic Zyw511 BUN 21 mg/dL 02/11/2016 Comp Metabolic Eqf325 B/C Ratio 21.4 Ratio 02/11/2016 Comp Metabolic Szh209 CALCIUM 9.2 mg/dL 02/11/2016 Comp Metabolic Rml490 ALK PHOS 48 U/L 02/11/2016 Comp Metabolic Nuy132 AST(SGOT) 18 U/L 02/11/2016 Comp Metabolic Kck825 ALT(SGPT) 22 U/L 02/11/2016 Comp Metabolic Wvb606 BILI T 0.5 mg/dL 02/11/2016 Comp Metabolic Zsg094 ALBUMIN 3.9 g/dL 02/11/2016 Comp Metabolic Qha381 TPRO 6.3 g/dL 02/11/2016 Comp Metabolic Sic457 GLOB 2.5 g/dL 02/11/2016 Comp Metabolic Hec188 A/G Ratio 1.6 Ratio 02/11/2016 Comp Metabolic Rii522 Osmo 280 mOsmo 02/11/2016 Lipid Ord30 CHOL 163 mg/dL 02/11/2016 Lipid Ord30 HDL 35.0 mg/dl 02/11/2016 Lipid Ord30 TRIG 200 mg/dL 02/11/2016 Lipid Ord30 LDL 88 mg/dL 02/11/2016 Lipid Ord30 C/HDL 4.7 Ratio 02/11/2016 %Hba1C Kgr510 % HbA1c 76626- 6 6.5 % 02/11/2016 %Hba1C Qqz588 Gluc Ave 140 mg/dL 02/11/2016 Tsh Ord6 hTSH II 2.07 uIU/mL 02/11/2016 B12 Mfb782 B12 563.00 pg/ml 02/11/2016 Culture Urine [id number] URINE CULTURE SEE NOTES 02/10/2016 Culture Urine [id number] Continued Results 02/10/2016 Urine Culture Ucult Complete [...] 11/04/2015 Urinalysis Ord28 U-Yeast NEGATIVE 11/04/2015 %Hba1C Lca607 % HbA1c 58759- 6 6.4 % 04/16/2015 %Hba1C Pft026 Gluc Ave 137 mg/dL 04/16/2015 Tsh Ord6 hTSH II 3.33 uIU/mL 02/07/2015 Comp Metabolic Wav998 NA 136 mEq/L 02/07/2015 Comp Metabolic Jyo390 K 3.9 mEq/L 02/07/2015 Comp Metabolic Mzw527 CL 98 mEq/L 02/07/2015 Comp Metabolic Lkt277 CO2 31.0 mEq/L 02/07/2015 Comp Metabolic Prg149 ANION GAP 11 02/07/2015 Comp Metabolic Eco005 GLUCOSE 139 mg/dL 02/07/2015 Comp Metabolic Khv052 Creat 0.9 mg/dL 02/07/2015 Comp Metabolic Bgf300 eGFR 87 ml/min/1.73m2 02/07/2015 Comp Metabolic Sum050 BUN 20 mg/dL 02/07/2015 Comp Metabolic Mtk339 B/C Ratio 21.7 Ratio 02/07/2015 Comp Metabolic Ima254 CALCIUM 9.7 mg/dL 02/07/2015 Comp Metabolic Hax350 ALK PHOS 55 U/L 02/07/2015 Comp Metabolic Awa618 AST(SGOT) 20 U/L 02/07/2015 Comp Metabolic Xel775 ALT(SGPT) 27 U/L 02/07/2015 Comp Metabolic Rdn998 BILI T 0.5 mg/dL 02/07/2015 Comp Metabolic Phq723 ALBUMIN 4.3 g/dL 02/07/2015 Comp Metabolic Zsy741 TPRO 6.9 g/dL 02/07/2015 Comp Metabolic Ias982 GLOB 2.6 g/dL 02/07/2015 Comp Metabolic Dpc379 A/G Ratio 1.7 Ratio 02/07/2015 Comp Metabolic Tei887 Osmo 277 mOsmo 02/07/2015 Cbc With Differential [...] Ord2 RDW 14.8 % 02/07/2015 A1C HPLC 0000107 A1C HPLC 15000-5 6.0 % 05/23/2014 VIT B 12 [id number] VIT B 12 479 PG/ML 05/23/2014 VIT D TOTL [id number] VIT D TOTL 29 NG/ML 05/23/2014 Review [...] normal 02/08/2018 None Full Exam - General 1995 Ears/Nose/Throat otoscopic exam Overall: external auditory canals [...] palpation 07/20/2016 None Full Exam - General 1995 Musculoskeletal [...] clear 04/16/2015 None Full Exam - General 1995 Ears/Nose/Throat oral cavity/pharynx/larynx Overall: oropharyngeal mucosa clear 04/16/2015 None Full Exam - General 1995 Ears/Nose/Throat oral cavity/pharynx/larynx Overall: hypopharynx benign 04/16/2015 [...] stance 11/28/2013 None Full Exam - General 1995 Musculoskeletal gait and station Gait: abnormal toe off 11/28/2013 None Full Exam - General 1994 Musculoskeletal gait and station Gait: abnormal swing through 11/28/2013 None Full Exam - General 1994 Musculoskeletal gait and station Gait: unable to turn quickly 11/28/2013 None Full Exam - General 1995 [...] dentition 11/14/2013 None Full Exam - General 1995 Ears/Nose/Throat oral cavity/pharynx/larynx Overall: hypopharynx benign 11/14/2013 None Full Exam - General 1994 Ears/Nose/Throat oral cavity/pharynx/larynx Overall: no masses 11/14/2013 None Full Exam - General 1995 [...] shoes Full Exam - General 1995 Musculoskeletal spine, ribs and pelvis Posture: kyphoscoliosis [...] 4: G0439 12/27/2017 THER/PROPH/DIAG INJ SC/IM CPT-4: 70598 09/07/2017 TRIAMCINOLONE ACET INJ NOS CPT-4: J3301 09/07/2017 ROUTINE VENIPUNCTURE CPT- 4: 12416 05/23/2014 THER/PROPH/DIAG INJ SC/IM CPT-4: 67537 11/28/2013 VITAMIN B12 INJECTION CPT- 4: J3420 11/28/2013 Vital Signs Date Vital 04/20/2018 Blood Pressure 1: 126/74 Code: 8480-6 BMI: 36.6 Code: 26240-7 Heart Rate 1: 60 bpm Height: 6' SpO2: 94% Weight: 270 lbs 03/21/2018 Blood Pressure 1: 138/74 Code: 8480-6 BMI: 36.8 Code: 96758-1 Heart Rate 1: 81 bpm Height: 6' SpO2: 98% Weight: 271 lbs 02/08/2018 Blood Pressure 1: 132/74 Code: 8480-6 BMI: 37.0 Code: 47178-8 Heart Rate 1: 82 bpm Height: 6' SpO2: 97% Weight: 273 lbs 12/27/2017 Blood Pressure 1: 148/78 Code: 8480-6 BMI: 36.3 Code: 95495-8 Heart Rate 1: 78 bpm Height: 6' SpO2: 93% Waist Measure (cm): 117 cm Weight: 268 lbs 12/06/2017 Blood Pressure 1: 122/70 Code: 8480-6 BMI: 36.6 Code: 86525-2 Heart Rate 1: 76 bpm Height: 6' SpO2: 93% Weight: 270 lbs 11/01/2017 BMI: 36.9 Code: 62330-1 Height: 6' Weight: 272 lbs 09/07/2017 Blood Pressure 1: 140/78 Code: 8480-6 BMI: 35.8 Code: 93673-2 Heart Rate 1: 76 bpm Height: 6' SpO2: 98% Weight: 264 lbs 06/07/2017 Blood Pressure 1: 138/86 Code: 8480-6 BMI: 36.3 Code: 57340-4 Heart Rate 1: 66 bpm Height: 6' SpO2: 95% Weight: 268 lbs 05/19/2017 Blood Pressure 1: 152/84 Code: 8480-6 BMI: 36.8 Code: 40684-9 Heart Rate 1: 70 bpm Height: 6' SpO2: 93% Weight: 271 lbs 05/09/2017 Blood Pressure 1: 138/76 Code: 8480-6 BMI: 36.6 Code: 92104-0 Heart Rate 1: 79 bpm Height: 6' SpO2: 93% Weight: 270 lbs 04/25/2017 Blood Pressure 1: 150/80 Code: 8480-6 Heart Rate 1: 58 bpm Height: SpO2: 94% Weight: 2017 Blood Pressure 1: 138/80 Code: 8480-6 BMI: 36.5 Code: 99976-9 Heart Rate 1: 76 bpm Height: 6' SpO2: 96% Weight: 269 lbs 03/29/2017 Blood Pressure 1: 118/68 Code: 8480-6 BMI: 36.9 Code: 16619-1 Heart Rate 1: 61 bpm Height: 6' SpO2: 95% Weight: 272 lbs 03/17/2017 Blood Pressure 1: 140/78 Code: 8480-6 BMI: 36.8 Code: 36519-2 Heart Rate 1: 91 bpm Height: 6' SpO2: 93% Weight: 271 lbs 03/08/2017 Blood Pressure 1: 152/84 Code: 8480-6 BMI: 36.8 Code: 50772-2 Heart Rate 1: 72 bpm Height: 6' SpO2: 92% Temperature: 36.6 (C) / 97.8 (F) Weight: 271 lbs 02/17/2017 Blood Pressure 1: 110/64 Code: 8480-6 BMI: 36.5 Code: 25168-3 Heart Rate 1: 62 bpm Height: 6' SpO2: 96% Weight: 269 lbs 01/18/2017 Blood Pressure 1: 140/80 Code: 8480-6 BMI: 36.5 Code: 22068-9 Heart Rate 1: 62 bpm Height: 6' SpO2: 94% Weight: 269 lbs 10/19/2016 Blood Pressure 1: 120/80 Code: 8480-6 BMI: 35.9 Code: 42311-8 Heart Rate 1: 64 bpm Height: 6' SpO2: 97% Weight: 265 lbs 08/17/2016 Blood Pressure 1: 112/76 Code: 8480-6 BMI: 36.1 Code: 49578-3 Heart Rate 1: 65 bpm Height: 6' SpO2: 97% Weight: 266 lbs 07/20/2016 Blood Pressure 1: 126/78 Code: 8480-6 BMI: 35.5 Code: 34826-5 Heart Rate 1: 60 bpm Height: 6' SpO2: 95% Weight: 262 lbs 04/19/2016 Blood Pressure 1: 132/78 Code: 8480-6 BMI: 35.1 Code: 73335-2 Heart Rate 1: 65 bpm Height: 6' SpO2: 98% Weight: 259 lbs 01/19/2016 Blood Pressure 1: 140/64 Code: 8480-6 BMI: 34.4 Code: 02789-1 Heart Rate 1: 61 bpm Height: 6' SpO2: 97% Weight: 254 lbs 10/16/2015 Blood Pressure 1: 108/66 Code: 8480-6 BMI: 35.3 Code: 28603-3 Heart Rate 1: 65 bpm Height: 6' SpO2: 96% Weight: 260 lbs 07/17/2015 Blood Pressure 1: 136/74 Code: 8480-6 BMI: 35.8 Code: 27400-5 Heart Rate 1: 59 bpm Height: 6' SpO2: 97% Weight: 263 lbs 13 07/03/2015 Weight: 265 lbs 04/16/2015 Blood Pressure 1: 130/82 Code: 8480-6 BMI: 36.1 Code: 47692-0 Heart Rate 1: 7694 bpm Height: 6' SpO2: 94% Weight: 266 lbs 02/19/2015 Blood Pressure 1: 160/90 Code: 8480-6 BMI: 35.8 Code: 70004-5 Heart Rate 1: 78 bpm Height: 6' SpO2: 94% Weight: 264 lbs 11/20/2014 Blood Pressure 1: 140/96 Code: 8480-6 BMI: 34.6 Code: 82967-6 Heart Rate 1: 92 bpm Height: 6' SpO2: 95% Weight: 255 lbs 11/05/2014 Blood Pressure 1: 132/70 Code: 8480-6 BMI: 34.6 Code: 54076-0 Heart Rate 1: 96 bpm Height: 6' SpO2: 98% Weight: 255 lbs 09/19/2014 Blood Pressure 1: 152/86 Code: 8480-6 BMI: 35.8 Code: 21966-3 Heart Rate 1: 82 bpm Height: 6' SpO2: 95% Weight: 264 lbs 07/24/2014 Blood Pressure 1: 142/82 Code: 8480-6 BMI: 34.7 Code: 30896-8 Heart Rate 1: 72 bpm Height: 6' Weight: 256 lbs 05/23/2014 Blood Pressure 1: 150/82 Code: 8480-6 BMI: 33.4 Code: 61702-9 Heart Rate 1: 68 bpm Height: 6' Weight: 246 lbs 04/18/2014 Blood Pressure 1: 132/84 Code: 8480-6 BMI: 33.2 Code: 90969-6 Heart Rate 1: 80 bpm Height: 6' Weight: 245 lbs 02/21/2014 Blood Pressure 1: 138/82 Code: 8480-6 BMI: 32.4 Code: 56654-3 Heart Rate 1: 85 bpm Height: 6' SpO2: 98% Weight: 239 lbs 12/25/2013 Blood Pressure 1: 146/80 Code: 8480-6 BMI: 30.5 Code: 51450-7 Heart Rate 1: 100 bpm Height: 6' Weight: 225 lbs 11/28/2013 Blood Pressure 1: 120/64 Code: 8480-6 BMI: 30.4 Code: 80111-5 Heart Rate 1: 68 bpm Height: 6' Weight: 224 lbs 11/14/2013 Blood Pressure 1: 124/80 Code: 8480-6 BMI: 30.0 Code: 60415-6 Heart Rate 1: 76 bpm Height: 6' [...] Maxitrol and Polytrim seeing eye dr in [place]. Reports eye still feels irritated. headache Quality [...] Maxitrol and Polytrim seeing eye dr in [place]. Reports eye still feels irritated. headache Quality [...] data Encounters Encounter Performer Location Codes Date ([id number]) 17653 EST. 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 PATIENT, LEVEL III Diagnosis: Acute bronchitis due to other specified organisms[ICD10: J20.8] Antoinette Long MD, [facility] CPT-4: 06299 02/08/2018 ([id number]) 68419 EST. 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 PATIENT, LEVEL III Diagnosis: Essential (primary) hypertension[ICD10: I10] Diagnosis: Localized edema[ICD10: R60.0] Diagnosis: Cellulitis of left lower limb[ICD10: L03.116] Quyen Long MD, [facility] CPT-4: 80186 06/07/2017 ([id number]) 27600 EST. 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 PATIENT, LEVEL II Diagnosis: Rash and other nonspecific skin eruption[ICD10: R21] Glory Long MD [facility] CPT-4: 76151 05/09/2017 ([id number]) 01620 EST. PATIENT, LEVEL II Diagnosis: Rash and other nonspecific skin eruption[ICD10: R21] Glory Long MD [facility] CPT-4: 28193 04/25/2017 ([id number]) 84733 EST. PATIENT, LEVEL III Diagnosis: Cellulitis of left lower limb[ICD10: L03.116] Diagnosis: Rash and other nonspecific skin eruption[ICD10: R21] Glory Long MD, [facility] CPT-4: 90914 2017 ([id number]) 22463 EST. PATIENT, LEVEL III Diagnosis: Cellulitis of left lower limb[ICD10: L03.116] Diagnosis: Rash and other nonspecific skin eruption[ICD10: R21] Glory Long MD, [facility] CPT-4: 01323 03/29/2017 [id number] EST. PATIENT, LEVEL IV Diagnosis: Cellulitis of left lower limb[ICD10: L03.116] Antoinette Long MD, [facility] CPT-4: 74484 03/17/2017 ([id number]) 58270 EST. PATIENT, LEVEL III Diagnosis: Rash and other nonspecific skin eruption[ICD10: R21] Glory Long MD, [facility] CPT-4: 06695 03/08/2017 22932 EST. PATIENT, LEVEL IV Diagnosis: Essential (primary) hypertension[ICD10: I10] Diagnosis: Muscle weakness (generalized)[ICD10: M62.81] Diagnosis: Body mass index (BMI) 36.0-36.9, adult[ICD10: Z68.36] Diagnosis: Family history of ischemic heart disease and other diseases of the circulatory system[ICD10: Z82.49] Antoinette Long MD, [facility] CPT-4: 54997 02/17/2017 ([id number]) 42708 EST. PATIENT, LEVEL IV Diagnosis: Essential (primary) hypertension[ICD10: I10] Diagnosis: Muscle weakness (generalized)[ICD10: M62.81] Quyen Long MD, [facility] CPT-4: 95377 01/18/2017 ([id number]) 94838 EST. 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 PATIENT, LEVEL III Diagnosis: Pain in left shoulder[ICD10: M25.512] Diagnosis: Rash and other nonspecific skin eruption[ICD10: R21] Glory Long MD, [facility] CPT-4: 20907 08/17/2016 ([id number]) 57816 EST. PATIENT, LEVEL IV Diagnosis: Essential (primary) hypertension[ICD10: I10] Diagnosis: Pain in left shoulder[ICD10: M25.512] Quyen Long MD, [facility] CPT-4: 10478 07/20/2016 ([id number]) 53709 EST. 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 PATIENT, LEVEL IV Diagnosis: Essential (primary) hypertension[ICD10: I10] Diagnosis: Other abnormal glucose[ICD10: R73.09] Diagnosis: Gastro-esophageal reflux disease without esophagitis[ICD10: K21.9] Diagnosis: Obesity, unspecified[ICD10: E66.9] Quyen Long MD [facility] CPT- 4: 55480 04/16/2015 ([id number]) 39905 EST. PATIENT, LEVEL IV Diagnosis: ESSENTIAL HYPERTENSION[ICD9: 401.9] Diagnosis: OBESITY[ICD9: 278.00] Diagnosis: Post-polio limb muscle weakness[ICD9: 728.87] Quyen Long MD, [facility] CPT-4: 95013 02/19/2015 ([id number]) 61950 EST. PATIENT, LEVEL IV Diagnosis: Shingles outbreak[ICD9: 053.9] Diagnosis: ESSENTIAL HYPERTENSION[ICD9: 401.9] Diagnosis: Earache[ICD9: 388.70] Quyen Long MD [facility] CPT-4: 26832 11/20/2014 ([id number]) 35669 EST. PATIENT, LEVEL III Diagnosis: Shingles outbreak[ICD9: 053.9] Diagnosis: Face pain[ICD9: 784.0] Diagnosis: Pain, eye, right[ICD9: 379.91] Quyen Long MD, [facility] CPT-4: 85320 11/05/2014 ([id number]) 43579 EST. PATIENT, LEVEL V Diagnosis: Post-polio limb muscle weakness[ICD9: 728.87] Diagnosis: Post-polio syndrome[ICD9: 138] Diagnosis: Leg weakness[ICD9: 729.89] Diagnosis: Weakness[ICD9: 780.79] Diagnosis: Foot drop[ICD9: 736.79] Quyen Long MD, [facility] CPT-4: 86065 09/19/2014 ([id number]) 66276 EST. PATIENT, LEVEL IV Diagnosis: ESSENTIAL HYPERTENSION[ICD9: 401.9] Diagnosis: Carotid bruit[ICD9: 785.9] Diagnosis: Seborrheic dermatitis[ICD9: 690.10] Diagnosis: Post-polio syndrome[ICD9: 138] Diagnosis: Vitamin D deficiency[ICD9: 268.9] Quyen Long MD, [facility] CPT- 4: 02604 07/24/2014 ([id number]) 17708 EST. PATIENT, LEVEL IV Diagnosis: Neck pain[ICD9: 723.1] Diagnosis: Post-polio syndrome[ICD9: 138] Diagnosis: Vitamin D deficiency[ICD9: 268.9] Diagnosis: Vitamin B12 deficiency[ICD9: 266.2] Diagnosis: Nocturia[ICD9: 788.43] Diagnosis: Leg weakness[ICD9: 729.89] Diagnosis: Elevated blood sugar[ICD9: 790.29] Glory Long MD, [facility] CPT- 4: 85023 05/23/2014 ([id number]) 32646 EST. PATIENT, LEVEL IV Diagnosis: ESSENTIAL HYPERTENSION[ICD9: 401.9] Diagnosis: HEADACHE[ICD9: 784.0] Diagnosis: EDEMA[ICD9: 782.3] Quyen Long MD, [facility] CPT-4: 71026 04/18/2014 85871 EST. PATIENT, LEVEL IV Diagnosis: Insomnia[ICD9: 780.52] Diagnosis: Post-polio syndrome[ICD9: 138] Diagnosis: Vitamin D deficiency[ICD9: 268.9] Diagnosis: Nocturnal hypoxemia[ICD9: 799.02] Glory Long MD, [facility] CPT- 4: 36245 02/21/2014 ([id number]) 35760 EST. PATIENT, LEVEL III Diagnosis: Tinea pedis[ICD9: 110.4] Diagnosis: Post-polio limb muscle weakness[ICD9: 728.87] [facility] CPT-4: 66604 12/25/2013 ([id number]) 13216 EST. PATIENT, LEVEL IV Diagnosis: Insomnia[ICD9: 780.52] Diagnosis: Vitamin B12 deficiency (dietary) anemia[ICD9: 281.1] Diagnosis: VITAMIN D DEFICIENCY[ICD9: 268.9] Diagnosis: Weakness[ICD9: 780.79] [facility] CPT-4: 82940 11/28/2013 ([id number]) OFFICE/OUTPATIENT VISIT NEW Diagnosis: Post-polio limb muscle weakness[ICD9: 728.87] Diagnosis: Post-polio syndrome[ICD9: 138] Diagnosis: Insomnia[ICD9: 780.52] Diagnosis: Arrhythmia[ICD9: 427.9] [facility] CPT-4: 40350 11/14/2013 Plan of Care Planned Activity Notes [...] his shoulder. 04/20/2018 Appointment: Quyen Long WPtel: [address] [place], [place] [phone] (15 min) Moderate 04/20/2018 Patient Education: Patient Medication Summary Completed 04/20/2018 Patient Education: Hypertension Completed 04/20/2018 Appointment: Quyen Long WPtel: [address] [place], [place] [phone] (15 min) Moderate 04/11/2018 Visit Plan: Post polio syndrome -right leg weakness -patient needs repair and adjustment of his right leg brace that helps with his symptoms of instability and weakness and allows him to ambulate -will send rx to [place] [facility] 03/21/2018 Appointment: Glory Dalton WPtel: [phone] [place] (15 min) Moderate 03/21/2018 Patient [...] [phone] ([facility] min) Complex 02/08/2018 Patient Education: Patient [...] Completed 12/27/2017 [phone] [facility] Moderate 12/08/2017 Visit Plan: [...] injection. 12/06/2017 App[facility]ment[phone] [place] (15 min) Moderate 12/06/2017 Patient Education: [...] check. 09/07/2017 Appointment: Quyen Long WPtel: [phone] [facility] (15 min) Moderate 09/07/2017 Patient Education: [...] Appointment: Quyen Long WPtel: [facility]2 [facility] (15 min) Moderate 06/07/2017 Patient Education: [...] compression recommended. 05/19/2017 Appointment: Quyen Long WPtel: [facility]5 [facility] (15 min) Moderate 05/19/2017 Patient Education: Patient Medication Summary Completed 05/19/2017 Patient Education: Obesity Completed 05/19/2017 Patient Education: Hypertension Completed 05/19/2017 Visit Plan: Rash-left zwhn-kyjrqyha-lwzlzpdpkf patient to continue using ketoconazole plus betamethasone equal parts and increase to TID-leave foot open to air as much as possible-follow up in 2 weeks, sooner if needed. 05/09/2017 Appointment: Glory Dalton WPtel: [phone] (30 min) Complex 05/09/2017 Patient Education: Patient Medication Summary Completed 05/09/2017 Patient Education: Obesity Completed 05/09/2017 Visit Plan: Rash-left foot-Dr Long in to evaluate rash-instructed patient to start using ketoconazole plus betamethasone equal parts TID -follow up in 2 weeks, sooner if needed. 04/25/2017 Appointment: Glory Dalton WPtel: [address] [place], [place] [phone] (30 min) Complex 04/25/2017 Patient Education: Patient Medication Summary Completed 04/25/2017 Visit Plan: Cellulitis of left foot-no longer draining-no open areas-no excoriation-slightly red-okay to d/c all treatments-keep clean and monitor-call if redness does not resolve Rash-resolved 2017 Appointment: Glory Dalton WPtel: [address] [place], [place] [phone] (30 min) Complex 2017 Patient Education: Patient Medication Summary Completed 2017 Patient Education: Obesity Completed 2017 Visit Plan: Cellulitis-left foot-MSSA kddxqpus-uebaxvifw-pjeon air in the evening-continue bactroban ointment twice daily-stop using alcohol on foot-no papertowels or abrasives to foot Boai-lipy-xt for betamethasone provided and instructed on use 03/29/2017 Appointment: Glory Dalton WPtel: [address] [place], [place] [phone] (30 min) Complex 03/29/2017 Patient Education: Patient Medication Summary Completed 03/29/2017 Patient Education: Obesity Completed 03/29/2017 Appointment: Glory Dalton WPtel: [address] [place], [place] [phone] (30 min) Complex 03/22/2017 Visit Plan: Cellulitis [...] warmth, discharge. 03/17/2017 Appointment: Antoinette Arndt WPtel: [address] [place] [id number] (30 min) [facility] 03/17/2017 Patient Education: Patient Medication Summary [...] the break. 01/18/2017 Appointment[phone] (15 min) Moderate 01/18/2017 Patient Education: [...] for his shoulder and weakness. 10/19/2016 Appointment: EthanQuyen WPtel: [phone] [facility] (15 min) Moderate 10/19/2016 Patient Education: Patient Medication Summary Completed 10/19/2016 Patient Education: Obesity Completed 10/19/2016 Visit Plan: Left shoulder pain-hospital f/u recent shoulder surgery with Dr Wilson-doing well-sees Dr Wilson this afternoon for suture removal-pain improved Pwab-ddkt-gedmzgs fungal infection-will treat with ket oconazole -follow up in 2 weeks 08/17/2016 [facility]ment[phone] [phone] (30 min) Complex 08/17/2016 Patient Education: Patient [...] when ambulating. 07/20/2016 Appointment: Quyen Long WPtel: [phone] [phone] (15 min) Moderate 07/20/2016 Patient Education: Patient [...] strengthening. 04/19/2016 Appointment: Quyen Long WPtel: [phone] [phone] (15 min) Moderate 04/19/2016 Patient Education: Patient [...] appointment. 01/19/2016 Appointment: Quyen Long WPtel: [phone] [facility] [place] (15 min) Moderate 01/19/2016 Patient Education: Patient Medication Summary Completed 01/19/2016 Patient Education: Obesity Completed 01/19/2016 Patient Education: Hypertension Completed 01/19/2016 Referral: Dr Mccauley Referral Completed 11/11/2015 Care Plan: Referral Order SNOMED-CT : [id number] Pending 11/03/2015 Visit Plan: Hypertension - well [...] with injection 10/16/2015 Appointment: Quyen Long WPtel: [address] [place] [phone] [place] (15 min) Moderate 10/16/2015 Patient Education: [...] - 02/19/2015 Appointment: Quyen Long WPtel: [phone] [phone] (15 min) Moderate 02/19/2015 Patient Education: Patient [...] drops. 11/20/2014 [facility]ment[phone] [facility] 11/20/2014 Patient Education: Patient [...] his eye doctor ESME. 11/05/2014 Appointment: [phone] [place] (15 min) Moderate 11/05/2014 Patient Education: Patient [...] to participate in activities outside of the long term. He has a family that would like [...] and foot. 09/19/2014 Appointment: [phone] [facility] 09/19/2014 Patient Education: Patient [...] deficiency - recommended repeat of vitamin d 90712ihckn weekly x 12 weeks and increase vitamin d to 5000 units daily. 07/24/2014 Appointment: Quyen Long WPtel: [address] [place], [place] [phone] Follow up 07/24/2014 Patient Education: Patient Medication [...] B12 level 05/23/2014 Appointment: Glory Dalton WPtel: [address] [place] [phone] Follow up 05/23/2014 Patient Education: Patient Medication Summary Completed 05/23/2014 Patient Education: .Cervicalgia Neck Pain Completed 05/23/2014 Appointment: Quyen Long WPtel: [address] [place], [place] [phone] [place] Follow up 05/22/2014 Visit Plan: Edema [...] at home. 04/18/2014 Appointment: Quyen Long WPtel: [facility] Follow up 04/18/2014 Patient Education: Patient Medication Summary Completed 04/18/2014 Patient Education: Hypertension Completed 04/18/2014 Appointment: Quyen Long WPtel: [facility] Follow up 02/27/2014 Visit Plan: Insomnia - Pt has been advised to increase the light in the house during the day, and start dimming the lights during the evening hours. Pt has been advised to cut out caffeine after 5pm. Daytime napping worsens night time insomnia. START TRAZODONE AND MONITOR SYMPTOMS. Vitamin D habjpfqxvd-wrbzcfmg-wskstwin vitamin D 50,000 units weekly for 12 additional weeks. Hypoxemia-continue night time oxygen 02/21/2014 Appointment: Glory Dalton WPtel: [phone] Follow up 02/21/2014 Patient Education: Patient Medication [...] on mobic. 11/28/2013 Appointment: Quyen Long WPtel: [facility]6 [facility] Follow up 11/28/2013 Patient Education: Patient Medication [...] oxygen study. 11/14/2013 Appointment: [phone] [facility] 11/14/2013 Patient Education: Patient Medication Summary Completed 11/14/2013 Referral: Dr Mccauley Referral Appointment Requested Instructions Comment . Rash-left qgha-yglmpbwn-ffxsdfjjgf patient to continue using ketoconazole plus betamethasone [...] up in 10 days . Cellulitis-left foot-MSSA iiaimnry-nonmpdrza-opagk air in the evening-continue bactroban ointment twice daily-stop using alcohol on foot-no papertowels or abrasives to foot Yeyv-ybye-ht for betamethasone provided and instructed on use [...] START TRAZODONE AND MONITOR SYMPTOMS. Vitamin D vfiuomdodz-joliahqw-dgzvqucr vitamin D 50,000 units weekly for 12 [...] deficiency - recommended repeat of vitamin d [id number] weekly x 12 weeks and increase vitamin [...] [place] this afternoon for suture removal-pain improved Qyry-qpoh-piahcdn fungal infection-will treat with ketoconazole -follow up [...] to participate in activities outside of the long term. He has a family that would like [...] him to ambulate -will send rx to [facility] . Post polio syndrome - back-up [...] month for weight check. . Hypertension - uncontrolled - the patient's [...]
--- OUTSIDE RECORDS SUMMARY | 2018-11-10 16:33 | XMS REPORT | CCD ---
Author Author Quyen Long Organization Quyen Long MD, [facility] Address [address] [place] [address] Phone Care Team Providers Care Press Tender Incendiary Grenade Name Role Phone PP Unavailable CCM Unavailable Summary Purpose Interface Exchange Insurance Providers Payer name Policy type / Coverage type Covered libertarian ID Effective Begin Date Effective End Date WPS Medicare Part B Medicare Part B [id number] [address] 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 11/14/[address]: [id number] Never drinks alcohol 11/14/2013 Has the patient [...] Start Date Stop Date Status Fill Instructions tamsulosin 0.4 mg capsule RxNorm: 525298 TAKE ONE CAPSULE BY MOUTH EVERY EVENING 06/12/2018 01/07/2019 Active gabapentin 300 mg capsule RxNorm: 535991 TAKE ONE CAPSULE BY MOUTH TWICE A DAY 05/31/2018 09/27/2018 Active losartan 50 mg tablet RxNorm: 788178 TAKE ONE TABLET BY MOUTH DAILY 05/01/2018 09/27/2018 Active Toprol XL 50 mg tablet,extended release RxNorm: 739500 1 Tablet(s) PO daily 04/20/2018 No Stop Date Active Vitamin D3 5,000 unit tablet RxNorm: 910746 TAKE ONE TABLET BY MOUTH DAILY 04/05/2018 02/28/2019 Active trazodone 50 mg tablet RxNorm: 989100 TAKE ONE TABLET BY MOUTH AT BEDTIME 02/27/2018 07/26/2018 Active ranitidine 150 mg tablet RxNorm: 516347 1 Tablet(s) PO BID 02/13/2018 02/07/2019 Active hydrochlorothiazide 25 mg tablet RxNorm: 271134 TAKE ONE TABLET BY MOUTH DAILY 02/13/2018 11/09/2018 Active albuterol sulfate 2.5 mg/3 mL (0.083 %) solution for nebulization RxNorm: 063669 3 Milliliter(s) INH UD 02/08/2018 No Stop Date Active please deliver all of his prescriptions thank you cefdinir 300 mg capsule RxNorm: 302899 1 Capsule(s) PO BID 02/08/2018 02/17/2018 Inactive prednisone 20 mg tablet RxNorm: 456104 2 Tablet(s) PO daily 02/08/2018 02/12/2018 Inactive fluticasone 50 mcg/actuation nasal spray,suspension RxNorm: 7138186 1 [place] NASAL BID 02/07/2018 06/06/2018 Inactive fluticasone 50 mcg/actuation nasal spray,suspension RxNorm: 9912974 1 [place] NASAL BID 02/07/2018 02/06/2018 Inactive Zithromax Z-Brian 250 mg tablet RxNorm: 882437 1 Tablet(s) PO UD 02/07/2018 03/14/2018 Inactive zpack as directed tamsulosin 0.4 mg capsule RxNorm: 602016 TAKE ONE CAPSULE BY MOUTH EVERY EVENING 01/13/2018 06/11/2018 Inactive cetirizine 10 mg tablet RxNorm: 8753341 TAKE ONE TABLET BY MOUTH EVERY NIGHT AT BEDTIME 01/02/2018 04/01/2018 Inactive Vitamin D3 5,000 unit tablet RxNorm: 439212 TAKE ONE TABLET BY MOUTH DAILY 01/02/2018 04/04/2018 Inactive cetirizine 10 mg tablet RxNorm: 2753990 1 Tablet(s) PO QHS 12/26/2017 01/01/2018 Inactive cetirizine 10 mg tablet RxNorm: 3590558 1 Tablet(s) PO QHS 12/26/2017 12/25/2017 Inactive losartan 50 mg tablet RxNorm: 613776 TAKE ONE TABLET BY MOUTH DAILY (STARTING 09-09-2017) 09/29/2017 03/27/2018 Inactive Request already responded to by other means (e.g. phone or fax) losartan 50 mg tablet RxNorm: 177694 1 Tablet(s) PO daily 09/27/2017 09/26/2017 Inactive losartan 50 mg tablet RxNorm: 008073 1 Tablet(s) PO daily 09/27/2017 09/28/2017 Inactive Bactrim DS 800 mg-160 mg tablet RxNorm: 942018 1 Tablet(s) PO BID 09/13/2017 09/19/2017 Inactive Kenalog 40 mg/mL suspension for injection RxNorm: 0445010 1 Milliliter(s) Inj 09/07/2017 09/07/2017 Inactive trazodone 50 mg tablet RxNorm: 379189 TAKE ONE TABLET BY MOUTH AT BEDTIME 08/16/2017 02/11/2018 Inactive gabapentin 300 mg capsule RxNorm: 481450 1 Capsule(s) PO BID 08/03/2017 01/29/2018 Inactive Vitamin D3 5,000 unit tablet RxNorm: 793531 TAKE ONE TABLET BY MOUTH DAILY 08/01/2017 12/28/2017 Inactive ketoconazole 2 % topical cream RxNorm: 942077 APPLY TO AFFECTED AREA(S) TWO TIMES A DAY 05/31/2017 06/29/2017 Inactive hydrochlorothiazide 25 mg tablet RxNorm: 667849 TAKE ONE TABLET BY MOUTH DAILY 05/16/2017 02/09/2018 Inactive lisinopril 20 mg tablet RxNorm: 100784 TAKE ONE TABLET BY MOUTH DAILY 05/16/2017 09/06/2017 Inactive ketoconazole 2 % topical cream RxNorm: 179706 1 Application TOP BID 03/29/2017 04/11/2017 Inactive apply to faice-deliver to [facility] please betamethasone dipropionate 0.05 % topical ointment RxNorm: 593307 1 Application TOP BID 03/29/2017 04/11/2017 Inactive apply to arm/chests for itching gabapentin 300 mg capsule RxNorm: 579443 1 Capsule(s) PO BID 03/29/2017 08/02/2017 Inactive trazodone 50 mg tablet RxNorm: 222832 TAKE ONE TABLET BY MOUTH AT BEDTIME 03/28/2017 08/15/2017 Inactive Vesicare 10 mg tablet RxNorm: 883412 TAKE ONE TABLET BY MOUTH EVERY NIGHT AT BEDTIME 03/21/2017 12/26/2017 Inactive Vesicare 10 mg tablet RxNorm: 912896 TAKE ONE TABLET BY MOUTH EVERY NIGHT AT BEDTIME 03/21/2017 06/06/2017 Inactive doxycycline hyclate 100 mg capsule RxNorm: 2560362 1 Capsule(s) PO BID 03/18/2017 03/27/2017 Inactive mupirocin 2 % topical ointment RxNorm: 676389 1 Application TOP BID 03/17/2017 No Stop Date Active doxycycline hyclate 100 mg tablet RxNorm: 922280 1 Tablet(s) PO BID 03/09/2017 03/15/2017 Inactive Take probiotic BID while on ABT doxycycline hyclate 100 mg tablet RxNorm: 885611 1 Tablet(s) PO BID 03/09/2017 03/08/2017 Inactive Take probiotic BID while on ABT meloxicam 15 mg tablet RxNorm: 032980 TAKE ONE TABLET BY MOUTH DAILY 02/10/2017 12/06/2017 Inactive Vitamin D3 5,000 unit tablet RxNorm: 793751 TAKE ONE TABLET BY MOUTH DAILY 02/08/2017 07/31/2017 Inactive Vitamin B-12 1,000 mcg/mL injection solution RxNorm: 560912 INJECT 1ML MONTHLY 01/24/2017 07/22/2017 Inactive lisinopril 20 mg tablet RxNorm: 814842 TAKE ONE TABLET BY MOUTH DAILY 12/13/2016 04/11/2017 Inactive trazodone 50 mg tablet RxNorm: 758011 TAKE ONE TABLET BY MOUTH AT BEDTIME 09/24/2016 03/22/2017 Inactive Vitamin D3 5,000 unit tablet RxNorm: 818612 TAKE ONE TABLET BY MOUTH DAILY 09/20/2016 02/07/2017 Inactive lisinopril 20 mg tablet RxNorm: 709122 TAKE ONE TABLET BY MOUTH DAILY 09/13/2016 12/12/2016 Inactive ketoconazole 2 % topical cream RxNorm: 190252 1 Application TOP BID 08/17/2016 08/30/2016 Inactive deliver to [facility] please Pepcid 20 mg tablet RxNorm: 872164 TAKE ONE TABLET BY MOUTH TWICE A DAY 07/12/2016 12/26/2017 Inactive omega-3 acid ethyl esters 1 gram capsule RxNorm: 093407 3 Capsule(s) PO daily 06/18/2016 12/14/2016 Inactive omega-3 acid ethyl esters 1 gram capsule RxNorm: 302088 3 Capsule(s) PO daily 06/18/2016 06/17/2016 Inactive trazodone 50 mg tablet RxNorm: 591181 TAKE ONE TABLET BY MOUTH AT BEDTIME 06/08/2016 08/06/2016 Inactive tamsulosin 0.4 mg capsule RxNorm: 734668 Capsule(s) TAKE ONE CAPSULE BY MOUTH EVERY EVENING 06/04/2016 12/30/2016 Inactive hydrochlorothiazide 25 mg tablet RxNorm: 213735 TAKE ONE TABLET BY MOUTH DAILY 05/10/2016 05/09/2016 Inactive hydrochlorothiazide 25 mg tablet RxNorm: 675029 TAKE ONE TABLET BY MOUTH DAILY 05/10/2016 02/12/2018 Inactive Pepcid 20 mg tablet RxNorm: 775888 1 Tablet(s) PO BID 03/18/2016 03/17/2016 Inactive Pepcid 20 mg tablet RxNorm: 165885 1 Tablet(s) PO BID 03/18/2016 07/11/2016 Inactive lisinopril 20 mg tablet RxNorm: 457701 TAKE ONE TABLET BY MOUTH DAILY 03/18/2016 08/14/2016 Inactive Vitamin D3 5,000 unit tablet RxNorm: 015269 Tablet(s) TAKE ONE TABLET BY MOUTH DAILY 03/18/2016 09/13/2016 Inactive trazodone 50 mg tablet RxNorm: 351550 TAKE ONE TABLET BY MOUTH AT BEDTIME 03/15/2016 06/07/2016 Inactive Vesicare 10 mg tablet RxNorm: 211609 1 Tablet(s) PO QHS 03/15/2016 02/07/2017 Inactive meloxicam 15 mg tablet RxNorm: 051375 TAKE ONE TABLET BY MOUTH DAILY 03/01/2016 01/24/2017 Inactive Bactrim DS 800 mg-160 mg tablet RxNorm: 406804 1 Tablet(s) PO BID 02/10/2016 02/09/2016 Inactive Bactrim DS 800 mg-160 mg tablet RxNorm: 386791 1 Tablet(s) PO BID 02/10/2016 02/16/2016 Inactive Cipro 500 mg tablet RxNorm: 763421 1 Tablet(s) PO BID 02/06/2016 02/09/2016 Inactive Cipro 500 mg tablet RxNorm: 021743 1 Tablet(s) PO BID 02/06/2016 02/05/2016 Inactive Pennsaid 20 mg/gram/actuation (2 %) topical soln in metered- dose pump RxNorm: 0637430 2 pumps TOP BID 01/19/2016 04/19/2016 Inactive tamsulosin 0.4 mg capsule RxNorm: 322563 TAKE ONE CAPSULE BY MOUTH EVERY EVENING 01/12/2016 06/03/2016 Inactive cyanocobalamin (vit B-12) 1,000 mcg/mL injection solution RxNorm: 603372 INJECT 1 ML INTRAMUSCULARLY MONTHLY 01/01/2016 10/26/2016 Inactive Request already responded to by other means (e.g. phone or fax) Vitamin B-12 1,000 mcg/mL injection solution RxNorm: 280012 1 Milliliter(s) Inj monthly 12/24/2015 04/19/2016 Inactive please give syringes for injections Vitamin D3 5,000 unit tablet RxNorm: 367536 TAKE ONE TABLET BY MOUTH DAILY 12/08/2015 03/06/2016 Inactive pantoprazole 40 mg tablet,delayed release RxNorm: 702412 TAKE ONE TABLET BY MOUTH DAILY 12/08/2015 03/17/2016 Inactive trazodone 50 mg tablet RxNorm: 102932 TAKE ONE TABLET BY MOUTH AT BEDTIME 11/10/2015 03/08/2016 Inactive lisinopril 20 mg tablet RxNorm: 592671 TAKE ONE TABLET BY MOUTH DAILY 09/08/2015 03/05/2016 Inactive Vitamin D3 5,000 unit tablet RxNorm: 565421 1 Tablet(s) PO daily 08/12/2015 12/07/2015 Inactive pantoprazole 40 mg tablet,delayed release RxNorm: 892430 1 Tablet(s) PO daily 08/12/2015 12/07/2015 Inactive tamsulosin 0.4 mg capsule RxNorm: 188987 TAKE ONE CAPSULE BY MOUTH EVERY EVENING 07/21/2015 12/17/2015 Inactive trazodone 50 mg tablet RxNorm: 811883 TAKE ONE TABLET BY MOUTH AT BEDTIME 05/09/2015 10/05/2015 Inactive hydrochlorothiazide 25 mg tablet RxNorm: 913315 1 Tablet(s) PO QAM 04/30/2015 04/29/2015 Inactive hydrochlorothiazide 25 mg tablet RxNorm: 734667 TAKE ONE TABLET BY MOUTH DAILY 04/30/2015 02/12/2018 Inactive pantoprazole 40 mg tablet,delayed release RxNorm: 874771 1 Tablet(s) PO daily 04/16/2015 08/11/2015 Inactive meloxicam 15 mg tablet RxNorm: 421492 TAKE ONE TABLET BY MOUTH DAILY 03/03/2015 02/25/2016 Inactive lisinopril 20 mg tablet RxNorm: 439753 1 Tablet(s) PO daily 02/19/2015 09/07/2015 Inactive tamsulosin 0.4 mg capsule RxNorm: 860863 TAKE ONE CAPSULE BY MOUTH EVERY EVENING 01/20/2015 07/18/2015 Inactive cyanocobalamin (vit B-12) 1,000 mcg/mL injection solution RxNorm: 166259 Milliliter(s) INJECT 1ML INTRAMUSCULARLY MONTHLY 12/12/2014 12/22/2014 Inactive trazodone 50 mg tablet RxNorm: 479940 TAKE ONE TABLET BY MOUTH AT BEDTIME 11/14/2014 05/08/2015 Inactive erythromycin 5 mg/gram (0.5 %) eye ointment RxNorm: 956621 1/2 inch OPH QID 11/05/2014 11/14/2014 Inactive acyclovir 800 mg tablet RxNorm: 415683 1 Tablet(s) PO TID 11/05/2014 11/18/2014 Inactive Zofran 4 mg tablet RxNorm: 650956 1 Tablet(s) PO Q4H as needed nausea 11/05/2014 01/03/2015 Inactive Duragesic 12 mcg/hr transdermal patch RxNorm: 802684 1 Patch TD Q72H 11/05/2014 02/04/2015 Inactive Imitrex 100 mg tablet RxNorm: 623985 1 Tablet(s) PO q 12 hours 11/04/2014 04/15/2015 Inactive naproxen 500 mg tablet RxNorm: 315893 1 Tablet(s) PO BID 10/30/2014 11/01/2014 Inactive meloxicam 15 mg tablet RxNorm: 519652 TAKE ONE TABLET BY MOUTH DAILY 10/04/2014 03/02/2015 Inactive Vesicare 5 mg tablet RxNorm: 557077 TAKE ONE TABLET BY MOUTH AT BEDTIME 09/16/2014 07/16/2015 Inactive Vitamin D2 50,000 unit capsule RxNorm: 779197 1 Capsule(s) PO QW 09/06/2014 07/16/2015 Inactive once weekly x 12 weeks tamsulosin ER 0.4 mg capsule,extended release 24 hr RxNorm: 586775 TAKE ONE CAPSULE BY MOUTH EVERY EVENING 06/24/2014 12/20/2014 Inactive tamsulosin ER 0.4 mg capsule,extended release 24 hr RxNorm: 756680 1 Capsule(s) PO QPM 06/24/2014 01/19/2015 Inactive Vitamin D2 50,000 unit capsule RxNorm: 747678 1 Capsule(s) PO QW 05/27/2014 09/05/2014 Inactive once weekly x 12 weeks Vesicare 5 mg tablet RxNorm: 469157 1 Tablet(s) PO QHS 05/23/2014 05/22/2014 Inactive Vesicare 5 mg tablet RxNorm: 386386 1 Tablet(s) PO QHS 05/23/2014 09/15/2014 Inactive trazodone 50 mg tablet RxNorm: 582690 TAKE ONE TABLET BY MOUTH AT BEDTIME 05/13/2014 11/08/2014 Inactive trazodone 50 mg tablet RxNorm: 093402 TAKE ONE TABLET BY MOUTH AT BEDTIME 05/13/2014 11/08/2014 Inactive hydrochlorothiazide 25 mg tablet RxNorm: 051318 1 Tablet(s) PO QAM 04/18/2014 01/12/2015 Inactive Vitamin D2 50,000 unit capsule RxNorm: 384300 TAKE ONE CAPSULE BY MOUTH ONCE WEEKLY FOR 12 WEEKS 04/09/2014 05/14/2014 Inactive trazodone 50 mg tablet RxNorm: 719273 1 Tablet(s) PO QHS 02/22/2014 05/12/2014 Inactive trazodone 50 mg tablet RxNorm: 858334 1 Tablet(s) PO QHS 02/22/2014 02/21/2014 Inactive Vitamin D2 50,000 unit capsule RxNorm: 637717 TAKE ONE CAPSULE BY MOUTH ONCE WEEKLY FOR 12 WEEKS 02/07/2014 03/06/2014 Inactive meloxicam 15 mg tablet RxNorm: 697013 TAKE ONE TABLET BY MOUTH ONCE A DAY 02/07/2014 08/05/2014 Inactive meloxicam 15 mg tablet RxNorm: 974583 TAKE ONE TABLET BY MOUTH ONCE A DAY 02/07/2014 2014 Inactive clotrimazole 1 % topical cream RxNorm: 237989 1 Application TOP BID 12/25/2013 07/16/2015 Inactive Diflucan 150 mg tablet RxNorm: 769771 1 Tablet(s) PO daily 12/25/2013 12/31/2013 Inactive tamsulosin ER 0.4 mg capsule,extended release 24 hr RxNorm: 371928 1 Capsule(s) PO QPM 11/28/2013 06/23/2014 Inactive cyanocobalamin (vit B-12) 1,000 mcg/mL injection solution RxNorm: 521021 1 Milliliter(s) Inj 11/28/2013 12/12/2014 Inactive Vitamin B-12 1,000 mcg/mL injection solution RxNorm: 464844 1 Milliliter(s) Inj monthly 11/21/2013 02/13/2015 Inactive please give syringes for injections Vitamin D2 50,000 unit capsule RxNorm: 324088 1 Capsule(s) PO QW x 12 weeks 11/21/2013 02/06/2014 Inactive [SAVINGS FOR UNINSURED PATIENTS -- to take addtional 2000 units daily Vitamin B-12 1,000 mcg/mL injection solution RxNorm: 517984 1 Milliliter(s) Inj monthly 11/21/2013 11/20/2013 Inactive meloxicam 15 mg tablet RxNorm: 868650 1 Tablet(s) PO daily 11/20/2013 11/19/2013 Inactive [SAVINGS FOR UNINSURED PATIENTS -- BIN:273717, PCN: ASPROD1, Group: [id number], ID# [id number], Process claim through [employer], for questions: . THIS IS NOT INSURANCE.] meloxicam 15 mg tablet RxNorm: 691008 1 Tablet(s) PO daily 11/20/2013 02/06/2014 Inactive [SAVINGS FOR UNINSURED PATIENTS -- BIN:525205, PCN: [id number], Group: [id number], ID# [id number], Process claim through [employer], for questions: . THIS IS NOT INSURANCE.] meloxicam 15 mg tablet RxNorm: 658625 1 Tablet(s) PO daily 11/20/2013 11/19/2013 Inactive Voltaren 1 % topical gel RxNorm: 145759 4 Application TOP QID apply to back, affected joints four times daily 11/14/2013 11/20/2013 Inactive trazodone 50 mg tablet RxNorm: 030185 1 Tablet(s) PO QHS No Start Date Active Vitamin D2 50,000 unit capsule RxNorm: 690810 1 Capsule(s) PO QW No Start Date 05/26/2014 Inactive once weekly x 12 weeks Zithromax Z-Brian 250 mg tablet RxNorm: 827991 1 Tablet(s) PO UD No Start Date 02/06/2018 Inactive Vitamin D2 50,000 unit capsule RxNorm: 547998 1 Capsule(s) PO QW No Start Date 11/20/2013 Inactive gabapentin 300 mg capsule RxNorm: 026628 1 Capsule(s) PO TID No Start Date 03/28/2017 Inactive Vesicare 10 mg tablet RxNorm: 523377 1 Tablet(s) PO QHS No Start Date 03/14/2016 Inactive Toprol XL 25 mg tablet,extended release RxNorm: 959560 1 Tablet(s) PO daily No Start Date 04/19/2018 Inactive Vitamin D3 5,000 unit tablet RxNorm: 434690 1 Tablet(s) PO daily No Start Date 08/11/2015 Inactive Celebrex 200 mg capsule RxNorm: 472792 1 Capsule(s) PO BID No Start Date 07/19/2016 Inactive Imitrex 50 mg tablet RxNorm: 194236 1 Tablet(s) PO now and may repeat up to four times in 24 hours No Start Date 11/03/2014 Inactive Zofran 4 mg tablet RxNorm: 697140 1 Tablet(s) PO Q8 as needed nausea and vomitting No Start Date 10/15/2015 Inactive ranitidine 150 mg tablet RxNorm: 957358 1 Tablet(s) PO BID No Start Date 02/12/2018 Inactive Phenergan 25 mg tablet RxNorm: 378740 1 Tablet(s) PO now No Start Date 04/15/2015 Inactive Tums oral RxNorm: 009692 oral No Start Date 10/15/2015 Inactive Medication Administered Medication Codes Instructions Start Date Status Kenalog 40 mg/mL suspension for injection RxNorm: 0588449 1Milliliter 09/07/2017 No longer Active cyanocobalamin (vit B-12) 1,000 mcg/mL injection solution RxNorm: 568174 1Milliliter 11/28/2013 No longer Active Immunizations Vaccine [...] went to an eye doctor in [place]. Reports that he did have hemorrhaging in his right eye which is getting better. headache 04/18/2014 Pt states he recently went to an eye doctor in [place] shortness of breath 02/21/2014 blisters 12/25/2013 insomnia 11/28/2013 back pain 11/14/2013 Results Observation Observation Code Item Item Code Result Date Vitamin D 25 Oh [id number] VITAMIN D, 25 HYDROXY 66.80 ng/mL 03/14/2018 [...] 28.5 pg 03/14/2018 Cbc With Differential Ord2 [place]% 7.6 % 03/14/2018 Cbc With Differential Ord2 [...] 1.28 K/ul 03/14/2018 Cbc With Differential Ord2 [place] ABS# 0.4 K/ul 03/14/2018 Cbc With Differential [...] Lipid Ord30 C/HDL 5.0 Ratio 06/27/2017 %Hba1C Pna837 % HbA1c 00735- 6 6.2 % 06/27/2017 %Hba1C Nwm276 Gluc Ave 131 mg/dL 06/27/2017 Comp Metabolic Wpk375 NA 140 mEq/L 06/27/2017 Comp Metabolic Suf192 K 4.2 mEq/L 06/27/2017 Comp Metabolic Xra861 CL 100 mEq/L 06/27/2017 Comp Metabolic Kde805 CO2 32.0 mEq/L 06/27/2017 Comp Metabolic Tin066 ANION GAP 12 06/27/2017 Comp Metabolic Pgw628 GLUCOSE 118 mg/dL 06/27/2017 Comp Metabolic Icu000 Creat 1.0 mg/dL 06/27/2017 Comp Metabolic Hxn157 eGFR 82 ml/min/1.73m2 06/27/2017 Comp Metabolic Zfe519 BUN 26 mg/dL 06/27/2017 Comp Metabolic Njn224 B/C Ratio 27.1 Ratio 06/27/2017 Comp Metabolic Huj792 CALCIUM 9.6 mg/dL 06/27/2017 Comp Metabolic Bzw230 ALK PHOS 46 U/L 06/27/2017 Comp Metabolic Qqq803 AST(SGOT) 23 U/L 06/27/2017 Comp Metabolic Bkb923 ALT(SGPT) 31 U/L 06/27/2017 Comp Metabolic Onb769 BILI T 0.5 mg/dL 06/27/2017 Comp Metabolic Scz100 ALBUMIN 4.2 g/dL 06/27/2017 Comp Metabolic Wzt729 TPRO 6.6 g/dL 06/27/2017 Comp Metabolic Tus284 GLOB 2.4 g/dL 06/27/2017 Comp Metabolic Wrd384 A/G Ratio 1.7 Ratio 06/27/2017 Comp Metabolic Cyu791 Osmo 285 mOsmo 06/27/2017 Cbc With Differential [...] 29.0 pg 10/20/2016 Cbc With Differential Ord2 [place]% 9.0 % 10/20/2016 Cbc With Differential Ord2 [...] 1.33 K/ul 10/20/2016 Cbc With Differential Ord2 [place] ABS# 0.4 K/ul 10/20/2016 Cbc With Differential Ord2 Eos ABS# 0.2 K/ul 10/20/2016 Cbc With Differential Ord2 Baso ABS# 0.0 K/ul 10/20/2016 Comp Metabolic Bfv499 NA 143 mEq/L 10/20/2016 Comp Metabolic Hlk514 K 4.6 mEq/L 10/20/2016 Comp Metabolic Xeg171 CL 104 mEq/L 10/20/2016 Comp Metabolic Kwh142 CO2 31.0 mEq/L 10/20/2016 Comp Metabolic Kqx934 ANION GAP 13 10/20/2016 Comp Metabolic Yjt702 GLUCOSE 117 mg/dL 10/20/2016 Comp Metabolic Fmx630 Creat 1.1 mg/dL 10/20/2016 Comp Metabolic Sdd017 eGFR 74 ml/min/1.73m2 10/20/2016 Comp Metabolic Nvl525 BUN 27 mg/dL 10/20/2016 Comp Metabolic Fez674 B/C Ratio 25.7 Ratio 10/20/2016 Comp Metabolic Iwf813 CALCIUM 9.3 mg/dL 10/20/2016 Comp Metabolic Nyp949 ALK PHOS 47 U/L 10/20/2016 Comp Metabolic Evo075 AST(SGOT) 18 U/L 10/20/2016 Comp Metabolic Oxe770 ALT(SGPT) 22 U/L 10/20/2016 Comp Metabolic Zig017 BILI T 0.5 mg/dL 10/20/2016 Comp Metabolic Ukg028 ALBUMIN 3.9 g/dL 10/20/2016 Comp Metabolic Van680 TPRO 6.5 g/dL 10/20/2016 Comp Metabolic Unp657 GLOB 2.6 g/dL 10/20/2016 Comp Metabolic Kpq423 A/G Ratio 1.5 Ratio 10/20/2016 Comp Metabolic Kqm576 Osmo 291 mOsmo 10/20/2016 Tsh Ord6 hTSH II 1.56 uIU/mL 10/20/2016 Lipid Ord30 CHOL 153 mg/dL 10/20/2016 Lipid Ord30 HDL 34.0 mg/dl 10/20/2016 Lipid Ord30 TRIG 123 mg/dL 10/20/2016 Lipid Ord30 LDL 94 mg/dL 10/20/2016 Lipid Ord30 C/HDL 4.5 Ratio 10/20/2016 B12 Djp940 B12 544.00 pg/ml 10/20/2016 Comp Metabolic Mvl687 NA 138 mEq/L 05/13/2016 Comp Metabolic Hov408 K 4.2 mEq/L 05/13/2016 Comp Metabolic Lbq614 CL 102 mEq/L 05/13/2016 Comp Metabolic Vqc114 CO2 30.0 mEq/L 05/13/2016 Comp Metabolic Bta329 ANION GAP 10 05/13/2016 Comp Metabolic Jvh491 GLUCOSE 113 mg/dL 05/13/2016 Comp Metabolic Qbg443 Creat 1.0 mg/dL 05/13/2016 Comp Metabolic Lvo395 eGFR 77 ml/min/1.73m2 05/13/2016 Comp Metabolic Icy089 BUN 26 mg/dL 05/13/2016 Comp Metabolic Ikk581 B/C Ratio 25.5 Ratio 05/13/2016 Comp Metabolic Dex721 CALCIUM 9.7 mg/dL 05/13/2016 Comp Metabolic Mms873 ALK PHOS 51 U/L 05/13/2016 Comp Metabolic Fwa310 AST(SGOT) 17 U/L 05/13/2016 Comp Metabolic Loj854 ALT(SGPT) 20 U/L 05/13/2016 Comp Metabolic Xxy268 BILI T 0.6 mg/dL 05/13/2016 Comp Metabolic Few086 ALBUMIN 4.0 g/dL 05/13/2016 Comp Metabolic Yyo731 TPRO 6.6 g/dL 05/13/2016 Comp Metabolic Ioh445 GLOB 2.6 g/dL 05/13/2016 Comp Metabolic Jio554 A/G Ratio 1.6 Ratio 05/13/2016 Comp Metabolic Acp348 Osmo 281 mOsmo 05/13/2016 Lipid Ord30 CHOL [...] 89.0 fl 02/11/2016 Cbc With Differential Ord2 [place]% 7.7 % 02/11/2016 Cbc With Differential Ord2 [...] 1.18 K/ul 02/11/2016 Cbc With Differential Ord2 [place] ABS# 0.4 K/ul 02/11/2016 Cbc With Differential Ord2 Eos ABS# 0.1 K/ul 02/11/2016 Cbc With Differential Ord2 Baso ABS# 0.0 K/ul 02/11/2016 Comp Metabolic Wqc889 NA 138 mEq/L 02/11/2016 Comp Metabolic Xvx456 K 4.0 mEq/L 02/11/2016 Comp Metabolic Vzy001 CL 97 mEq/L 02/11/2016 Comp Metabolic Fga129 CO2 32.0 mEq/L 02/11/2016 Comp Metabolic Bsw207 ANION GAP 13 02/11/2016 Comp Metabolic Khr876 GLUCOSE 117 mg/dL 02/11/2016 Comp Metabolic Hkj660 Creat 1.0 mg/dL 02/11/2016 Comp Metabolic Ejb286 eGFR 81 ml/min/1.73m2 02/11/2016 Comp Metabolic Zpy656 BUN 21 mg/dL 02/11/2016 Comp Metabolic Gxg787 B/C Ratio 21.4 Ratio 02/11/2016 Comp Metabolic Vri475 CALCIUM 9.2 mg/dL 02/11/2016 Comp Metabolic Vbc250 ALK PHOS 48 U/L 02/11/2016 Comp Metabolic Zgn538 AST(SGOT) 18 U/L 02/11/2016 Comp Metabolic Ldg764 ALT(SGPT) 22 U/L 02/11/2016 Comp Metabolic Kco194 BILI T 0.5 mg/dL 02/11/2016 Comp Metabolic Yec438 ALBUMIN 3.9 g/dL 02/11/2016 Comp Metabolic Dzx705 TPRO 6.3 g/dL 02/11/2016 Comp Metabolic Buy349 GLOB 2.5 g/dL 02/11/2016 Comp Metabolic Wpp014 A/G Ratio 1.6 Ratio 02/11/2016 Comp Metabolic Ncz547 Osmo 280 mOsmo 02/11/2016 Lipid Ord30 CHOL 163 mg/dL 02/11/2016 Lipid Ord30 HDL 35.0 mg/dl 02/11/2016 Lipid Ord30 TRIG 200 mg/dL 02/11/2016 Lipid Ord30 LDL 88 mg/dL 02/11/2016 Lipid Ord30 C/HDL 4.7 Ratio 02/11/2016 %Hba1C Vir428 % HbA1c 19815- 6 6.5 % 02/11/2016 %Hba1C Ulk753 Gluc Ave 140 mg/dL 02/11/2016 Tsh Ord6 hTSH II 2.07 uIU/mL 02/11/2016 B12 Hte138 B12 563.00 pg/ml 02/11/2016 Culture Urine [id number] URINE CULTURE SEE NOTES 02/10/2016 Culture Urine [id number] Continued Results 02/10/2016 Urine Culture Ucult Complete [...] 11/04/2015 Urinalysis Ord28 U-Yeast NEGATIVE 11/04/2015 %Hba1C Lrx633 % HbA1c 61388- 6 6.4 % 04/16/2015 %Hba1C Bfq172 Gluc Ave 137 mg/dL 04/16/2015 Tsh Ord6 hTSH II 3.33 uIU/mL 02/07/2015 Comp Metabolic Jum085 NA 136 mEq/L 02/07/2015 Comp Metabolic Ltb846 K 3.9 mEq/L 02/07/2015 Comp Metabolic Xjn219 CL 98 mEq/L 02/07/2015 Comp Metabolic Cvq102 CO2 31.0 mEq/L 02/07/2015 Comp Metabolic Vrv161 ANION GAP 11 02/07/2015 Comp Metabolic Tvk286 GLUCOSE 139 mg/dL 02/07/2015 Comp Metabolic Thm849 Creat 0.9 mg/dL 02/07/2015 Comp Metabolic Tmq034 eGFR 87 ml/min/1.73m2 02/07/2015 Comp Metabolic Jvv070 BUN 20 mg/dL 02/07/2015 Comp Metabolic Yem953 B/C Ratio 21.7 Ratio 02/07/2015 Comp Metabolic Lvj871 CALCIUM 9.7 mg/dL 02/07/2015 Comp Metabolic Mdc756 ALK PHOS 55 U/L 02/07/2015 Comp Metabolic Blj096 AST(SGOT) 20 U/L 02/07/2015 Comp Metabolic Cai497 ALT(SGPT) 27 U/L 02/07/2015 Comp Metabolic Mda577 BILI T 0.5 mg/dL 02/07/2015 Comp Metabolic Fas266 ALBUMIN 4.3 g/dL 02/07/2015 Comp Metabolic Vmw287 TPRO 6.9 g/dL 02/07/2015 Comp Metabolic Wmg788 GLOB 2.6 g/dL 02/07/2015 Comp Metabolic Lsj082 A/G Ratio 1.7 Ratio 02/07/2015 Comp Metabolic Gdo024 Osmo 277 mOsmo 02/07/2015 Cbc With Differential [...] Ord2 RDW 14.8 % 02/07/2015 A1C HPLC [id number] A1C HPLC 02924-8 6.0 % 05/23/2014 VIT B 12 [id number] VIT B 12 479 PG/ML 05/23/2014 VIT D TOTL [id number] VIT D TOTL 29 NG/ML 05/23/2014 Review [...] through 11/28/2013 None Full Exam - General 1995 [...] 4: G0439 12/27/2017 THER/PROPH/DIAG INJ SC/IM CPT-4: 10451 09/07/2017 TRIAMCINOLONE ACET INJ NOS CPT-4: [id number] 09/07/2017 ROUTINE VENIPUNCTURE CPT- 4: 73581 05/23/2014 THER/PROPH/DIAG INJ SC/IM CPT-4: 90917 11/28/2013 VITAMIN B12 INJECTION CPT- 4: J3420 11/28/2013 Vital Signs Date Vital 04/20/2018 Blood Pressure 1: 126/74 Code: 8480-6 BMI: 36.6 Code: 55517-0 Heart Rate 1: 60 bpm Height: 6' SpO2: 94% Weight: 270 lbs 03/21/2018 Blood Pressure 1: 138/74 Code: 8480-6 BMI: 36.8 Code: 97263-8 Heart Rate 1: 81 bpm Height: 6' SpO2: 98% Weight: 271 lbs 02/08/2018 Blood Pressure 1: 132/74 Code: 8480-6 BMI: 37.0 Code: 06928-4 Heart Rate 1: 82 bpm Height: 6' SpO2: 97% Weight: 273 lbs 12/27/2017 Blood Pressure 1: 148/78 Code: 8480-6 BMI: 36.3 Code: 53144-0 Heart Rate 1: 78 bpm Height: 6' SpO2: 93% Waist Measure (cm): 117 cm Weight: 268 lbs 12/06/2017 Blood Pressure 1: 122/70 Code: 8480-6 BMI: 36.6 Code: 30885-0 Heart Rate 1: 76 bpm Height: 6' SpO2: 93% Weight: 270 lbs 11/01/2017 BMI: 36.9 Code: 32920-5 Height: 6' Weight: 272 lbs 09/07/2017 Blood Pressure 1: 140/78 Code: 8480-6 BMI: 35.8 Code: 46868-6 Heart Rate 1: 76 bpm Height: 6' SpO2: 98% Weight: 264 lbs 06/07/2017 Blood Pressure 1: 138/86 Code: 8480-6 BMI: 36.3 Code: 20799-0 Heart Rate 1: 66 bpm Height: 6' SpO2: 95% Weight: 268 lbs 05/19/2017 Blood Pressure 1: 152/84 Code: 8480-6 BMI: 36.8 Code: 45712-9 Heart Rate 1: 70 bpm Height: 6' SpO2: 93% Weight: 271 lbs 05/09/2017 Blood Pressure 1: 138/76 Code: 8480-6 BMI: 36.6 Code: 44993-4 Heart Rate 1: 79 bpm Height: 6' SpO2: 93% Weight: 270 lbs 04/25/2017 Blood Pressure 1: 150/80 Code: 8480-6 Heart Rate 1: 58 bpm Height: SpO2: 94% Weight: 2017 Blood Pressure 1: 138/80 Code: 8480-6 BMI: 36.5 Code: 33582-0 Heart Rate 1: 76 bpm Height: 6' SpO2: 96% Weight: 269 lbs 03/29/2017 Blood Pressure 1: 118/68 Code: 8480-6 BMI: 36.9 Code: 02734-4 Heart Rate 1: 61 bpm Height: 6' SpO2: 95% Weight: 272 lbs 03/17/2017 Blood Pressure 1: 140/78 Code: 8480-6 BMI: 36.8 Code: 93856-5 Heart Rate 1: 91 bpm Height: 6' SpO2: 93% Weight: 271 lbs 03/08/2017 Blood Pressure 1: 152/84 Code: 8480-6 BMI: 36.8 Code: 67915-0 Heart Rate 1: 72 bpm Height: 6' SpO2: 92% Temperature: 36.6 (C) / 97.8 (F) Weight: 271 lbs 02/17/2017 Blood Pressure 1: 110/64 Code: 8480-6 BMI: 36.5 Code: 83712-0 Heart Rate 1: 62 bpm Height: 6' SpO2: 96% Weight: 269 lbs 01/18/2017 Blood Pressure 1: 140/80 Code: 8480-6 BMI: 36.5 Code: 17002-2 Heart Rate 1: 62 bpm Height: 6' SpO2: 94% Weight: 269 lbs 10/19/2016 Blood Pressure 1: 120/80 Code: 8480-6 BMI: 35.9 Code: 40666-7 Heart Rate 1: 64 bpm Height: 6' SpO2: 97% Weight: 265 lbs 08/17/2016 Blood Pressure 1: 112/76 Code: 8480-6 BMI: 36.1 Code: 78953-7 Heart Rate 1: 65 bpm Height: 6' SpO2: 97% Weight: 266 lbs 07/20/2016 Blood Pressure 1: 126/78 Code: 8480-6 BMI: 35.5 Code: 37514-4 Heart Rate 1: 60 bpm Height: 6' SpO2: 95% Weight: 262 lbs 04/19/2016 Blood Pressure 1: 132/78 Code: 8480-6 BMI: 35.1 Code: 37651-7 Heart Rate 1: 65 bpm Height: 6' SpO2: 98% Weight: 259 lbs 01/19/2016 Blood Pressure 1: 140/64 Code: 8480-6 BMI: 34.4 Code: 60135-0 Heart Rate 1: 61 bpm Height: 6' SpO2: 97% Weight: 254 lbs 10/16/2015 Blood Pressure 1: 108/66 Code: 8480-6 BMI: 35.3 Code: 05964-4 Heart Rate 1: 65 bpm Height: 6' SpO2: 96% Weight: 260 lbs 07/17/2015 Blood Pressure 1: 136/74 Code: 8480-6 BMI: 35.8 Code: 57794-6 Heart Rate 1: 59 bpm Height: 6' SpO2: 97% Weight: 263 lbs 13 oz 07/03/2015 Weight: 265 lbs 04/16/2015 Blood Pressure 1: 130/82 Code: 8480-6 BMI: 36.1 Code: 28564-0 Heart Rate 1: 7694 bpm Height: 6' SpO2: 94% Weight: 266 lbs 02/19/2015 Blood Pressure 1: 160/90 Code: 8480-6 BMI: 35.8 Code: 24075-9 Heart Rate 1: 78 bpm Height: 6' SpO2: 94% Weight: 264 lbs 11/20/2014 Blood Pressure 1: 140/96 Code: 8480-6 BMI: 34.6 Code: 89166-6 Heart Rate 1: 92 bpm Height: 6' SpO2: 95% Weight: 255 lbs 11/05/2014 Blood Pressure 1: 132/70 Code: 8480-6 BMI: 34.6 Code: 47970-7 Heart Rate 1: 96 bpm Height: 6' SpO2: 98% Weight: 255 lbs 09/19/2014 Blood Pressure 1: 152/86 Code: 8480-6 BMI: 35.8 Code: 04866-6 Heart Rate 1: 82 bpm Height: 6' SpO2: 95% Weight: 264 lbs 07/24/2014 Blood Pressure 1: 142/82 Code: 8480-6 BMI: 34.7 Code: 54827-4 Heart Rate 1: 72 bpm Height: 6' Weight: 256 lbs 05/23/2014 Blood Pressure 1: 150/82 Code: 8480-6 BMI: 33.4 Code: 29895-7 Heart Rate 1: 68 bpm Height: 6' Weight: 246 lbs 04/18/2014 Blood Pressure 1: 132/84 Code: 8480-6 BMI: 33.2 Code: 11035-2 Heart Rate 1: 80 bpm Height: 6' Weight: 245 lbs 02/21/2014 Blood Pressure 1: 138/82 Code: 8480-6 BMI: 32.4 Code: 84643-4 Heart Rate 1: 85 bpm Height: 6' SpO2: 98% Weight: 239 lbs 12/25/2013 Blood Pressure 1: 146/80 Code: 8480-6 BMI: 30.5 Code: 01446-3 Heart Rate 1: 100 bpm Height: 6' Weight: 225 lbs 11/28/2013 Blood Pressure 1: 120/64 Code: 8480-6 BMI: 30.4 Code: 70357-3 Heart Rate 1: 68 bpm Height: 6' Weight: 224 lbs 11/14/2013 Blood Pressure 1: 124/80 Code: 8480-6 BMI: 30.0 Code: 02999-2 Heart Rate 1: 76 bpm Height: 6' [...] and [place] seeing eye dr in [place]. Reports eye still feels irritated. headache Quality [...] and [place] seeing eye dr in [place]. Reports eye still feels irritated. headache Quality [...] data Encounters Encounter Performer Location Codes Date ([id number]) 24695 EST. 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 PATIENT, LEVEL III Diagnosis: Acute bronchitis due to other specified organisms[ICD10: J20.8] Antoinette Long MD [facility] CPT-4: 71390 02/08/2018 ([id number]) 86302 EST. 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 PATIENT, LEVEL III Diagnosis: Essential (primary) hypertension[ICD10: I10] Diagnosis: Localized edema[ICD10: R60.0] Diagnosis: Cellulitis of left lower limb[ICD10: L03.116] Quyen Long MD [facility] CPT-4: 95760 06/07/2017 ([id number]) 64996 EST. 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 PATIENT, LEVEL II Diagnosis: Rash and other nonspecific skin eruption[ICD10: R21] Glory Long MD, [facility] CPT-4: 82734 05/09/2017 ([id number]) 82398 EST. PATIENT, LEVEL II Diagnosis: Rash and other nonspecific skin eruption[ICD10: R21] Glory Long MD, [facility] CPT-4: 73600 04/25/2017 ([id number]) 43136 EST. PATIENT, LEVEL III Diagnosis: Cellulitis of left lower limb[ICD10: L03.116] Diagnosis: Rash and other nonspecific skin eruption[ICD10: R21] Glory Long MD, [facility] CPT-4: 99977 2017 ([id number]) 50571 EST. PATIENT, LEVEL III Diagnosis: Cellulitis of left lower limb[ICD10: L03.116] Diagnosis: Rash and other nonspecific skin eruption[ICD10: R21] Glory Long MD, [facility] CPT-4: 81491 03/29/2017 54145 EST. PATIENT, LEVEL IV Diagnosis: Cellulitis of left lower limb[ICD10: L03.116] Antoinette Long MD, [facility] CPT-4: 26495 03/17/2017 ([id number]) 26680 EST. PATIENT, LEVEL III Diagnosis: Rash and other nonspecific skin eruption[ICD10: R21] Glory Long MD, [facility] CPT-4: 59943 03/08/2017 06583 EST. PATIENT, LEVEL IV Diagnosis: Essential (primary) hypertension[ICD10: I10] Diagnosis: Muscle weakness (generalized)[ICD10: M62.81] Diagnosis: Body mass index (BMI) 36.0-36.9, adult[ICD10: Z68.36] Diagnosis: Family history of ischemic heart disease and other diseases of the circulatory system[ICD10: Z82.49] Antoinette Long MD, [facility] CPT-4: 44993 02/17/2017 ([id number]) 50014 EST. PATIENT, LEVEL IV Diagnosis: Essential (primary) hypertension[ICD10: I10] Diagnosis: Muscle weakness (generalized)[ICD10: M62.81] Quyen Long MD, [facility] CPT-4: 87462 01/18/2017 ([id number]) 61712 EST. 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 PATIENT, LEVEL III Diagnosis: Pain in left shoulder[ICD10: M25.512] Diagnosis: Rash and other nonspecific skin eruption[ICD10: R21] Glory Long MD, [facility] CPT-4: 37791 08/17/2016 ([id number]) 53965 EST. PATIENT, LEVEL IV Diagnosis: Essential (primary) hypertension[ICD10: I10] Diagnosis: Pain in left shoulder[ICD10: M25.512] Quyen Long MD, [facility] CPT-4: 52629 07/20/2016 ([id number]) 10797 EST. 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 PATIENT, LEVEL IV Diagnosis: Essential (primary) hypertension[ICD10: I10] Diagnosis: Other abnormal glucose[ICD10: R73.09] Diagnosis: Gastro-esophageal reflux disease without esophagitis[ICD10: K21.9] Diagnosis: Obesity, unspecified[ICD10: E66.9] Quyen Long MD [facility] CPT- 4: 04784 04/16/2015 ([id number]) 11228 EST. PATIENT, LEVEL IV Diagnosis: ESSENTIAL HYPERTENSION[ICD9: 401.9] Diagnosis: OBESITY[ICD9: 278.00] Diagnosis: Post-polio limb muscle weakness[ICD9: 728.87] Quyen Long MD [facility] CPT-4: 89191 02/19/2015 ([id number]) 98896 EST. PATIENT, LEVEL IV Diagnosis: Shingles outbreak[ICD9: 053.9] Diagnosis: ESSENTIAL HYPERTENSION[ICD9: 401.9] Diagnosis: Earache[ICD9: 388.70] Quyen Long MD [facility] CPT-4: 39080 11/20/2014 ([id number]) 46330 EST. PATIENT, LEVEL III Diagnosis: Shingles outbreak[ICD9: 053.9] Diagnosis: Face pain[ICD9: 784.0] Diagnosis: Pain, eye, right[ICD9: 379.91] Quyen Long MD [facility] CPT-4: 93576 11/05/2014 ([id number]) 96112 EST. PATIENT, LEVEL V Diagnosis: Post-polio limb muscle weakness[ICD9: 728.87] Diagnosis: Post-polio syndrome[ICD9: 138] Diagnosis: Leg weakness[ICD9: 729.89] Diagnosis: Weakness[ICD9: 780.79] Diagnosis: Foot drop[ICD9: 736.79] Quyen Long MD, [facility] CPT-4: 26349 09/19/2014 [id number]) 71717 EST. PATIENT, LEVEL IV Diagnosis: ESSENTIAL HYPERTENSION[ICD9: 401.9] Diagnosis: Carotid bruit[ICD9: 785.9] Diagnosis: Seborrheic dermatitis[ICD9: 690.10] Diagnosis: Post-polio syndrome[ICD9: 138] Diagnosis: Vitamin D deficiency[ICD9: 268.9] Quyen Long MD, [facility] CPT- 4: 83909 07/24/2014 ([id number]) 22923 EST. PATIENT, LEVEL IV Diagnosis: Neck pain[ICD9: 723.1] Diagnosis: Post-polio syndrome[ICD9: 138] Diagnosis: Vitamin D deficiency[ICD9: 268.9] Diagnosis: Vitamin B12 deficiency[ICD9: 266.2] Diagnosis: Nocturia[ICD9: 788.43] Diagnosis: Leg weakness[ICD9: 729.89] Diagnosis: Elevated blood sugar[ICD9: 790.29] Glory Long MD, [facility] CPT- 4: 47003 05/23/2014 ([id number]) 42613 EST. PATIENT, LEVEL IV Diagnosis: ESSENTIAL HYPERTENSION[ICD9: 401.9] Diagnosis: HEADACHE[ICD9: 784.0] Diagnosis: EDEMA[ICD9: 782.3] Quyen Long MD, [facility] CPT-4: 10673 04/18/2014 69926 EST. PATIENT, LEVEL IV Diagnosis: Insomnia[ICD9: 780.52] Diagnosis: Post-polio syndrome[ICD9: 138] Diagnosis: Vitamin D deficiency[ICD9: 268.9] Diagnosis: Nocturnal hypoxemia[ICD9: 799.02] Glory Long MD, [facility] CPT- 4: 27552 02/21/2014 88727 66451 EST. PATIENT, LEVEL III Diagnosis: Tinea pedis[ICD9: 110.4] Diagnosis: Post-polio limb muscle weakness[ICD9: 728.87] Glory Long MD, [facility] CPT-4: 88704 12/25/2013 ([id number]) 79492 EST. PATIENT, LEVEL IV Diagnosis: Insomnia[ICD9: 780.52] Diagnosis: Vitamin B12 deficiency (dietary) anemia[ICD9: 281.1] Diagnosis: VITAMIN D DEFICIENCY[ICD9: 268.9] Diagnosis: Weakness[ICD9: 780.79] [facility] CPT-4: 57420 11/28/2013 ([id number]) OFFICE/OUTPATIENT VISIT NEW Diagnosis: Post-polio limb muscle weakness[ICD9: 728.87] Diagnosis: Post-polio syndrome[ICD9: 138] Diagnosis: Insomnia[ICD9: 780.52] Diagnosis: Arrhythmia[ICD9: 427.9] [facility] CPT-4: 83745 11/14/2013 Plan of Care Planned Activity Notes [...] his shoulder. 04/20/2018 Appointment: Quyen Long WPtel: [facility]5 [facility] (15 min) Moderate 04/20/2018 Patient Education: Patient Medication Summary Completed 04/20/2018 Patient Education: Hypertension Completed 04/20/2018 Appointment: Quyen Long WPtel: [facility]5 [facility] (15 min) Moderate 04/11/2018 Visit Plan: Post polio syndrome -right leg weakness -patient needs repair and adjustment of his right leg brace that helps with his symptoms of instability and weakness and allows him to ambulate -will send rx to [place] [facility] 03/21/2018 Appointment: Glory Dalton WPtel: [facility]8 [phone] (15 min) Moderate 03/21/2018 Patient Education: Patient [...] or if symptoms acutely worsen. 02/08/2018 Appointment: Hair Antoinette [facility]Ptel[facility] [phone] [facility] (30 min) Complex 02/08/2018 Patient Education: Patient [...] Completed 12/27/2017 [phone] ([facility] min) Moderate 12/08/2017 Visit Plan: [...] for shoulder injection. 12/06/2017 Appointment: EthanQuyen WPtel: [facility] [place] (15 min) Moderate 12/06/2017 Patient [...] check. 09/07/2017 Appointment: Quyen Long WPtel: [phone] [facility] (15 min) Moderate 09/07/2017 Patient Education: [...] lower leg. 06/07/2017 Appointment: Quyen Long WPtel: [facility]6 [facility] (15 min) Moderate 06/07/2017 Patient Education: [...] [facility] (15 min) Moderate 05/19/2017 Patient Education: Patient Medication Summary Completed 05/19/2017 Patient Education: Obesity Completed 05/19/2017 Patient Education: Hypertension Completed 05/19/2017 Visit Plan: Rash-left fmdi-yyvawebl-lckgdvitgx patient to continue using ketoconazole plus betamethasone equal parts and increase to TID-leave foot open to air as much as possible-follow up in 2 weeks, sooner if needed. 05/09/2017 Appointment: Glory Dalton WPtel: [phone] [phone] [place] (30 min) Complex 05/09/2017 Patient Education: Patient Medication Summary Completed 05/09/2017 Patient Education: Obesity Completed 05/09/2017 Visit Plan: Rash-left foot-Dr Long in to evaluate rash-instructed patient to start using ketoconazole plus betamethasone equal parts TID -follow up in 2 weeks, sooner if needed. 04/25/2017 Appointment: Glory Dalton WPtel: [address] [place], [place] [phone] (30 min) Complex 04/25/2017 Patient Education: Patient Medication Summary Completed 04/25/2017 Visit Plan: Cellulitis of left foot-no longer draining-no open areas-no excoriation-slightly red-okay to d/c all treatments-keep clean and monitor-call if redness does not resolve Rash-resolved 2017 Appointment: Glory Dalton WPtel: [address] [place], [place] [phone] (30 min) Complex 2017 Patient Education: Patient Medication Summary Completed 2017 Patient Education: Obesity Completed 2017 Visit Plan: Cellulitis-left foot-MSSA ibxuohsp-vplzwadsz-jziqo air in the evening-continue bactroban ointment twice daily-stop using alcohol on foot-no papertowels or abrasives to foot Akgp-exca-uf for betamethasone provided and instructed on use 03/29/2017 Appointment: Glory Dalton WPtel: [address] [place], [place] [phone] (30 min) Complex 03/29/2017 Patient Education: Patient Medication Summary Completed 03/29/2017 Patient Education: Obesity Completed 03/29/2017 Appointment: Glory Dalton WPtel: [address] [place], [place] [phone] (30 min) Complex 03/22/2017 Visit Plan: Cellulitis [...] discharge. 03/17/2017 Appointment: Antoinette Arndt WPtel: [phone] [facility] (30 min) Complex 03/17/2017 Patient Education: Patient [...] break. 01/18/2017 App[facility]ment: [phone] [facility] (15 min) Moderate 01/18/2017 Patient Education: [...] weakness. 10/19/2016 Appointment: [facility]Ptel[facility] [phone] [facility] (15 min) Moderate 10/19/2016 Patient Education: Patient Medication Summary Completed 10/19/2016 Patient Education: Obesity Completed 10/19/2016 Visit Plan: Left shoulder pain-hospital f/u recent shoulder surgery with Dr Wilson-doing well-sees Dr Wilson this afternoon for suture removal-pain improved Amoh-rnha-keqwccj fungal infection-will treat with ket oconazole -follow up in 2 weeks 08/17/2016 Appointment: Glory Dalton WPtel: [phone] [phone] (30 min) Complex 08/17/2016 Patient Education: Patient [...] ambulating. 07/20/2016 Appointment: Quyen Long WPtel: [phone] [facility] (15 min) Moderate 07/20/2016 Patient Education: [...] strengthening. 04/19/2016 Appointment: Quyen Long WPtel: [phone] [facility] (15 min) Moderate 04/19/2016 Patient Education: [...] up appointment. 01/19/2016 Appointment: [facility]Ptel[facility] [phone] [facility] (15 min) Moderate 01/19/2016 Patient Education: Patient Medication Summary Completed 01/19/2016 Patient Education: Obesity Completed 01/19/2016 Patient Education: Hypertension Completed 01/19/2016 Referral: Dr Mccauley Referral Completed 11/11/2015 Care Plan: Referral Order SNOMED-CT : [id number] Pending 11/03/2015 Visit Plan: Hypertension - well [...] with injection 10/16/2015 Appointment: Quyen Long WPtel: [facility] (15 min) Moderate 10/16/2015 Patient Education: [...] - 02/19/2015 Appointment: Quyen Long WPtel: [phone] [facility] (15 min) Moderate 02/19/2015 Patient Education: [...] ear drops. 11/20/2014 Appointment: Quyen Long WPtel: [facility] Follow up 11/20/2014 Patient Education: Patient [...] ESME. 11/05/2014 Appointment: Quyen Long WPtel: [phone] [facility] (15 min) Moderate 11/05/2014 Patient Education: [...] and foot. 09/19/2014 Appointment: Quyen Long WPtel: [address] [place] [address] Follow up 09/19/2014 Patient Education: Patient Medication [...] deficiency - recommended repeat of vitamin d 57999ccomu weekly x 12 weeks and increase vitamin d to 5000 units daily. 07/24/2014 Appointment: Quyen Long WPtel: [facility]5 [facility] [place] Follow up 07/24/2014 Patient Education: [...] B12 level 05/23/2014 Appointment: Glory Dalton WPtel: [phone] Follow up 05/23/2014 Patient Education: Patient Medication Summary Completed 05/23/2014 Patient Education: .Cervicalgia Neck Pain Completed 05/23/2014 Appointment: Quyen Long WPtel: [facility] [place] Follow up 05/22/2014 Visit Plan: Edema [...] home. 04/18/2014 Appointment: Quyen Long WPtel: [phone] [facility] Follow up 04/18/2014 Patient Education: Patient Medication Summary Completed 04/18/2014 Patient Education: Hypertension Completed 04/18/2014 Appointment: Quyen Long WPtel: [phone] [facility] [place] Follow up 02/27/2014 Visit Plan: Insomnia - Pt has been advised to increase the light in the house during the day, and start dimming the lights during the evening hours. Pt has been advised to cut out caffeine after 5pm. Daytime napping worsens night time insomnia. START TRAZODONE AND MONITOR SYMPTOMS. Vitamin D jmengdoshm-mdjdtohn-uipgkwmh vitamin D 50,000 units weekly for 12 additional weeks. Hypoxemia-continue night time oxygen 02/21/2014 Appointment: Glory Dalton WPtel: [address] [phone] Follow up 02/21/2014 Patient Education: Patient Medication [...] mobic. 11/28/2013 Appointment: [facility]Ptel[facility] [phone] [facility] Follow up 11/28/2013 Patient Education: Patient [...] study. 11/14/2013 Appointment: [facility]Ptel[facility] [phone] [facility] [place] New Patient 11/14/2013 Patient Education: [...] up in 10 days . Cellulitis-left foot-MSSA xzbpnksx-tcsuwtttc-rnwyh air in the evening-continue bactroban ointment twice daily-stop using alcohol on foot-no papertowels or abrasives to foot Rihc-extf-rx for betamethasone provided and instructed on use [...] and dressings to lower leg. . Rash-left kbph-vijalxiv-wtfbbtcgsd patient to continue using ketoconazole plus betamethasone [...] possibly getting another injection into his shoulder. prevnar 13 if hasn't had one . [...] may need fluoroscopic guidance with injection . 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 Back pain - improved on mobic. KETOCONAZOLE mixed with BETAMETHASONE THREE TIMES DAILY -MIX EQUAL PARTS . Rash-left foot-Dr Long in to evaluate rash-instructed patient to start using ketoconazole plus betamethasone equal parts TID -follow up in 2 weeks, sooner if needed. . Bronchitis - acute case of bronchitis [...] to ambulate -will send rx to [facility] CONTINUE VITAMIN D FOR 12 WEEKS . Insomnia - Pt has been advised to increase the light in the house during the day, and start dimming the lights during the evening hours. Pt has been advised to cut out caffeine after 5pm. Daytime napping worsens night time insomnia. START TRAZODONE AND MONITOR SYMPTOMS. Vitamin D [id number] vitamin D 50,000 units weekly for 12 [...] deficiency - recommended repeat of vitamin d [id number] weekly x 12 weeks and increase vitamin [...] Wilson this afternoon for suture removal-pain improved [id number] fungal infection-will treat with ketoconazole -follow up [...] for arthritis, continue exercising for strengthening. . Hypertension - well controlled - continue [...]
--- OUTSIDE RECORDS SUMMARY | 2018-11-10 16:38 | XMS REPORT | CCD ---
Author Author Quyen Long Organization Quyen Long MD, [facility] Address [address] [place] [address] Phone Care Team Providers Care Technical Laboratory Asst Name Role Phone PP Unavailable CCM Unavailable Summary Purpose Interface Exchange Insurance Providers Payer name Policy type / Coverage type Covered constitution party ID Effective Begin Date Effective End Date WPS Medicare Part B Medicare Part B [id number] 2017 Unknown [facility] Medicare Part B [id number] 2017 Unknown Family history Grandmother Diagnosis Age [...] Description Effective Dates Tobacco history SNOMED CT: 9483891 Former smoker 1.5 pack daily x 45 years 12/27/2017 Marital status Unknown 10/19/2016 Living arrangements Unknown [facility] 04/19/2016 Number of children Unknown 1 son - lives in [place] 11/14/2013 Employment Unknown Retired - was a [employer] - had multiple different shifts 11/14/[address]: 632361308 Never drinks alcohol 11/14/2013 Has the patient [...] Fill Instructions gabapentin 300 mg capsule RxNorm: 247862 TAKE ONE CAPSULE BY MOUTH TWICE A DAY 05/31/2018 09/27/2018 Active losartan 50 mg tablet RxNorm: 170710 TAKE ONE TABLET BY MOUTH DAILY 05/01/2018 09/27/2018 Active Toprol XL 50 mg tablet,extended release RxNorm: 735101 1 Tablet(s) PO daily 04/20/2018 No Stop Date Active Vitamin D3 5,000 unit tablet RxNorm: 043910 TAKE ONE TABLET BY MOUTH DAILY 04/05/2018 02/28/2019 Active trazodone 50 mg tablet RxNorm: 297360 TAKE ONE TABLET BY MOUTH AT BEDTIME 02/27/2018 07/26/2018 Active ranitidine 150 mg tablet RxNorm: 572754 1 Tablet(s) PO BID 02/13/2018 02/07/2019 Active hydrochlorothiazide 25 mg tablet RxNorm: 731723 TAKE ONE TABLET BY MOUTH DAILY 02/13/2018 11/09/2018 Active albuterol sulfate 2.5 mg/3 mL (0.083 %) solution for nebulization RxNorm: 154466 3 Milliliter(s) INH UD 02/08/2018 No Stop Date Active please deliver all of his prescriptions thank you cefdinir 300 mg capsule RxNorm: 448732 1 Capsule(s) PO BID 02/08/2018 02/17/2018 Inactive prednisone 20 mg tablet RxNorm: 696367 2 Tablet(s) PO daily 02/08/2018 02/12/2018 Inactive fluticasone 50 mcg/actuation nasal spray,suspension RxNorm: 8525753 1 [place] NASAL BID 02/07/2018 06/06/2018 Active fluticasone 50 mcg/actuation nasal spray,suspension RxNorm: 0366964 1 [place] NASAL BID 02/07/2018 02/06/2018 Inactive Zithromax Z-Brian 250 mg tablet RxNorm: 451762 1 Tablet(s) PO UD 02/07/2018 03/14/2018 Inactive zpack as directed tamsulosin 0.4 mg capsule RxNorm: 405919 TAKE ONE CAPSULE BY MOUTH EVERY EVENING 01/13/2018 06/11/2018 Active cetirizine 10 mg tablet RxNorm: 2989576 TAKE ONE TABLET BY MOUTH EVERY NIGHT AT BEDTIME 01/02/2018 04/01/2018 Inactive Vitamin D3 5,000 unit tablet RxNorm: 248853 TAKE ONE TABLET BY MOUTH DAILY 01/02/2018 04/04/2018 Inactive cetirizine 10 mg tablet RxNorm: 6200074 1 Tablet(s) PO QHS 12/26/2017 01/01/2018 Inactive cetirizine 10 mg tablet RxNorm: 5911540 1 Tablet(s) PO QHS 12/26/2017 12/25/2017 Inactive losartan 50 mg tablet RxNorm: 815264 TAKE ONE TABLET BY MOUTH DAILY (STARTING 09-09-2017) 09/29/2017 03/27/2018 Inactive Request already responded to by other means (e.g. phone or fax) losartan 50 mg tablet RxNorm: 063317 1 Tablet(s) PO daily 09/27/2017 09/26/2017 Inactive losartan 50 mg tablet RxNorm: 004749 1 Tablet(s) PO daily 09/27/2017 09/28/2017 Inactive Bactrim DS 800 mg-160 mg tablet RxNorm: 926017 1 Tablet(s) PO BID 09/13/2017 09/19/2017 Inactive Kenalog 40 mg/mL suspension for injection RxNorm: 9602334 1 Milliliter(s) Inj 09/07/2017 09/07/2017 Inactive trazodone 50 mg tablet RxNorm: 260103 TAKE ONE TABLET BY MOUTH AT BEDTIME 08/16/2017 02/11/2018 Inactive gabapentin 300 mg capsule RxNorm: 108901 1 Capsule(s) PO BID 08/03/2017 01/29/2018 Inactive Vitamin D3 5,000 unit tablet RxNorm: 054744 TAKE ONE TABLET BY MOUTH DAILY 08/01/2017 12/28/2017 Inactive ketoconazole 2 % topical cream RxNorm: 729548 APPLY TO AFFECTED AREA(S) TWO TIMES A DAY 05/31/2017 06/29/2017 Inactive hydrochlorothiazide 25 mg tablet RxNorm: 471276 TAKE ONE TABLET BY MOUTH DAILY 05/16/2017 02/09/2018 Inactive lisinopril 20 mg tablet RxNorm: 146734 TAKE ONE TABLET BY MOUTH DAILY 05/16/2017 09/06/2017 Inactive ketoconazole 2 % topical cream RxNorm: 291477 1 Application TOP BID 03/29/2017 04/11/2017 Inactive apply to faice-deliver to [facility] please betamethasone dipropionate 0.05 % topical ointment RxNorm: 865190 1 Application TOP BID 03/29/2017 04/11/2017 Inactive apply to arm/chests for itching gabapentin 300 mg capsule RxNorm: 941456 1 Capsule(s) PO BID 03/29/2017 08/02/2017 Inactive trazodone 50 mg tablet RxNorm: 895259 TAKE ONE TABLET BY MOUTH AT BEDTIME 03/28/2017 08/15/2017 Inactive Vesicare 10 mg tablet RxNorm: 459014 TAKE ONE TABLET BY MOUTH EVERY NIGHT AT BEDTIME 03/21/2017 12/26/2017 Inactive Vesicare 10 mg tablet RxNorm: 955800 TAKE ONE TABLET BY MOUTH EVERY NIGHT AT BEDTIME 03/21/2017 06/06/2017 Inactive doxycycline hyclate 100 mg capsule RxNorm: 1267542 1 Capsule(s) PO BID 03/18/2017 03/27/2017 Inactive mupirocin 2 % topical ointment RxNorm: 278209 1 Application TOP BID 03/17/2017 No Stop Date Active doxycycline hyclate 100 mg tablet RxNorm: 321766 1 Tablet(s) PO BID 03/09/2017 03/15/2017 Inactive Take probiotic BID while on ABT doxycycline hyclate 100 mg tablet RxNorm: 635703 1 Tablet(s) PO BID 03/09/2017 03/08/2017 Inactive Take probiotic BID while on ABT meloxicam 15 mg tablet RxNorm: 280280 TAKE ONE TABLET BY MOUTH DAILY 02/10/2017 12/06/2017 Inactive Vitamin D3 5,000 unit tablet RxNorm: 086319 TAKE ONE TABLET BY MOUTH DAILY 02/08/2017 07/31/2017 Inactive Vitamin B-12 1,000 mcg/mL injection solution RxNorm: 066563 INJECT 1ML MONTHLY 01/24/2017 07/22/2017 Inactive lisinopril 20 mg tablet RxNorm: 798298 TAKE ONE TABLET BY MOUTH DAILY 12/13/2016 04/11/2017 Inactive trazodone 50 mg tablet RxNorm: 459599 TAKE ONE TABLET BY MOUTH AT BEDTIME 09/24/2016 03/22/2017 Inactive Vitamin D3 5,000 unit tablet RxNorm: 675046 TAKE ONE TABLET BY MOUTH DAILY 09/20/2016 02/07/2017 Inactive lisinopril 20 mg tablet RxNorm: 338152 TAKE ONE TABLET BY MOUTH DAILY 09/13/2016 12/12/2016 Inactive ketoconazole 2 % topical cream RxNorm: 157360 1 Application TOP BID 08/17/2016 08/30/2016 Inactive deliver to [facility] Pepcid 20 mg tablet RxNorm: 448695 TAKE ONE TABLET BY MOUTH TWICE A DAY 07/12/2016 12/26/2017 Inactive omega-3 acid ethyl esters 1 gram capsule RxNorm: 061213 3 Capsule(s) PO daily 06/18/2016 12/14/2016 Inactive omega-3 acid ethyl esters 1 gram capsule RxNorm: 080812 3 Capsule(s) PO daily 06/18/2016 06/17/2016 Inactive trazodone 50 mg tablet RxNorm: 135151 TAKE ONE TABLET BY MOUTH AT BEDTIME 06/08/2016 08/06/2016 Inactive tamsulosin 0.4 mg capsule RxNorm: 231894 Capsule(s) TAKE ONE CAPSULE BY MOUTH EVERY EVENING 06/04/2016 12/30/2016 Inactive hydrochlorothiazide 25 mg tablet RxNorm: 735960 TAKE ONE TABLET BY MOUTH DAILY 05/10/2016 05/09/2016 Inactive hydrochlorothiazide 25 mg tablet RxNorm: 173314 TAKE ONE TABLET BY MOUTH DAILY 05/10/2016 02/12/2018 Inactive Pepcid 20 mg tablet RxNorm: 023944 1 Tablet(s) PO BID 03/18/2016 03/17/2016 Inactive Pepcid 20 mg tablet RxNorm: 300489 1 Tablet(s) PO BID 03/18/2016 07/11/2016 Inactive lisinopril 20 mg tablet RxNorm: 953741 TAKE ONE TABLET BY MOUTH DAILY 03/18/2016 08/14/2016 Inactive Vitamin D3 5,000 unit tablet RxNorm: 305081 Tablet(s) TAKE ONE TABLET BY MOUTH DAILY 03/18/2016 09/13/2016 Inactive trazodone 50 mg tablet RxNorm: 292098 TAKE ONE TABLET BY MOUTH AT BEDTIME 03/15/2016 06/07/2016 Inactive Vesicare 10 mg tablet RxNorm: 884203 1 Tablet(s) PO QHS 03/15/2016 02/07/2017 Inactive meloxicam 15 mg tablet RxNorm: 991254 TAKE ONE TABLET BY MOUTH DAILY 03/01/2016 01/24/2017 Inactive Bactrim DS 800 mg-160 mg tablet RxNorm: 314968 1 Tablet(s) PO BID 02/10/2016 02/09/2016 Inactive Bactrim DS 800 mg-160 mg tablet RxNorm: 092629 1 Tablet(s) PO BID 02/10/2016 02/16/2016 Inactive Cipro 500 mg tablet RxNorm: 684719 1 Tablet(s) PO BID 02/06/2016 02/09/2016 Inactive Cipro 500 mg tablet RxNorm: 346339 1 Tablet(s) PO BID 02/06/2016 02/05/2016 Inactive Pennsaid 20 mg/gram/actuation (2 %) topical soln in metered- dose pump RxNorm: 4002885 2 pumps TOP BID 01/19/2016 04/19/2016 Inactive tamsulosin 0.4 mg capsule RxNorm: 771558 TAKE ONE CAPSULE BY MOUTH EVERY EVENING 01/12/2016 06/03/2016 Inactive cyanocobalamin (vit B-12) 1,000 mcg/mL injection solution RxNorm: 889800 INJECT 1 ML INTRAMUSCULARLY MONTHLY 01/01/2016 10/26/2016 Inactive Request already responded to by other means (e.g. phone or fax) Vitamin B-12 1,000 mcg/mL injection solution RxNorm: 358128 1 Milliliter(s) Inj monthly 12/24/2015 04/19/2016 Inactive please give syringes for injections Vitamin D3 5,000 unit tablet RxNorm: 848052 TAKE ONE TABLET BY MOUTH DAILY 12/08/2015 03/06/2016 Inactive pantoprazole 40 mg tablet,delayed release RxNorm: 595115 TAKE ONE TABLET BY MOUTH DAILY 12/08/2015 03/17/2016 Inactive trazodone 50 mg tablet RxNorm: 356846 TAKE ONE TABLET BY MOUTH AT BEDTIME 11/10/2015 03/08/2016 Inactive lisinopril 20 mg tablet RxNorm: 945780 TAKE ONE TABLET BY MOUTH DAILY 09/08/2015 03/05/2016 Inactive Vitamin D3 5,000 unit tablet RxNorm: 104619 1 Tablet(s) PO daily 08/12/2015 12/07/2015 Inactive pantoprazole 40 mg tablet,delayed release RxNorm: 457408 1 Tablet(s) PO daily 08/12/2015 12/07/2015 Inactive tamsulosin 0.4 mg capsule RxNorm: 077691 TAKE ONE CAPSULE BY MOUTH EVERY EVENING 07/21/2015 12/17/2015 Inactive trazodone 50 mg tablet RxNorm: 983252 TAKE ONE TABLET BY MOUTH AT BEDTIME 05/09/2015 10/05/2015 Inactive hydrochlorothiazide 25 mg tablet RxNorm: 936701 1 Tablet(s) PO QA 04/30/2015 04/29/2015 Inactive hydrochlorothiazide 25 mg tablet RxNorm: 925426 TAKE ONE TABLET BY MOUTH DAILY 04/30/2015 02/12/2018 Inactive pantoprazole 40 mg tablet,delayed release RxNorm: 993972 1 Tablet(s) PO daily 04/16/2015 08/11/2015 Inactive meloxicam 15 mg tablet RxNorm: 661378 TAKE ONE TABLET BY MOUTH DAILY 03/03/2015 02/25/2016 Inactive lisinopril 20 mg tablet RxNorm: 929959 1 Tablet(s) PO daily 02/19/2015 09/07/2015 Inactive tamsulosin 0.4 mg capsule RxNorm: 429933 TAKE ONE CAPSULE BY MOUTH EVERY EVENING 01/20/2015 07/18/2015 Inactive cyanocobalamin (vit B-12) 1,000 mcg/mL injection solution RxNorm: 040289 Milliliter(s) INJECT 1ML INTRAMUSCULARLY MONTHLY 12/12/2014 12/22/2014 Inactive trazodone 50 mg tablet RxNorm: 873732 TAKE ONE TABLET BY MOUTH AT BEDTIME 11/14/2014 05/08/2015 Inactive erythromycin 5 mg/gram (0.5 %) eye ointment RxNorm: 567760 1/2 inch OPH QID 11/05/2014 11/14/2014 Inactive acyclovir 800 mg tablet RxNorm: 221849 1 Tablet(s) PO TID 11/05/2014 11/18/2014 Inactive Zofran 4 mg tablet RxNorm: 463080 1 Tablet(s) PO Q4H as needed nausea 11/05/2014 01/03/2015 Inactive Duragesic 12 mcg/hr transdermal patch RxNorm: 331318 1 Patch TD Q72H 11/05/2014 02/04/2015 Inactive Imitrex 100 mg tablet RxNorm: 907436 1 Tablet(s) PO q 12 hours 11/04/2014 04/15/2015 Inactive naproxen 500 mg tablet RxNorm: 436892 1 Tablet(s) PO BID 10/30/2014 11/01/2014 Inactive meloxicam 15 mg tablet RxNorm: 590511 TAKE ONE TABLET BY MOUTH DAILY 10/04/2014 03/02/2015 Inactive Vesicare 5 mg tablet RxNorm: 572643 TAKE ONE TABLET BY MOUTH AT BEDTIME 09/16/2014 07/16/2015 Inactive Vitamin D2 50,000 unit capsule RxNorm: 669075 1 Capsule(s) PO QW 09/06/2014 07/16/2015 Inactive once weekly x 12 weeks tamsulosin ER 0.4 mg capsule,extended release 24 hr RxNorm: 336621 TAKE ONE CAPSULE BY MOUTH EVERY EVENING 06/24/2014 12/20/2014 Inactive tamsulosin ER 0.4 mg capsule,extended release 24 hr RxNorm: 127526 1 Capsule(s) PO QPM 06/24/2014 01/19/2015 Inactive Vitamin D2 50,000 unit capsule RxNorm: 064429 1 Capsule(s) PO QW 05/27/2014 09/05/2014 Inactive once weekly x 12 weeks Vesicare 5 mg tablet RxNorm: 875625 1 Tablet(s) PO QHS 05/23/2014 05/22/2014 Inactive Vesicare 5 mg tablet RxNorm: 621305 1 Tablet(s) PO QHS 05/23/2014 09/15/2014 Inactive trazodone 50 mg tablet RxNorm: 384438 TAKE ONE TABLET BY MOUTH AT BEDTIME 05/13/2014 11/08/2014 Inactive trazodone 50 mg tablet RxNorm: 673956 TAKE ONE TABLET BY MOUTH AT BEDTIME 05/13/2014 11/08/2014 Inactive hydrochlorothiazide 25 mg tablet RxNorm: 546478 1 Tablet(s) PO QAM 04/18/2014 01/12/2015 Inactive Vitamin D2 50,000 unit capsule RxNorm: 904051 TAKE ONE CAPSULE BY MOUTH ONCE WEEKLY FOR 12 WEEKS 04/09/2014 05/14/2014 Inactive trazodone 50 mg tablet RxNorm: 933556 1 Tablet(s) PO QHS 02/22/2014 05/12/2014 Inactive trazodone 50 mg tablet RxNorm: 363400 1 Tablet(s) PO QHS 02/22/2014 02/21/2014 Inactive Vitamin D2 50,000 unit capsule RxNorm: 060891 TAKE ONE CAPSULE BY MOUTH ONCE WEEKLY FOR 12 WEEKS 02/07/2014 03/06/2014 Inactive meloxicam 15 mg tablet RxNorm: 802813 TAKE ONE TABLET BY MOUTH ONCE A DAY 02/07/2014 08/05/2014 Inactive meloxicam 15 mg tablet RxNorm: 011704 TAKE ONE TABLET BY MOUTH ONCE A DAY 02/07/2014 2014 Inactive clotrimazole 1 % topical cream RxNorm: 050746 1 Application TOP BID 12/25/2013 07/16/2015 Inactive Diflucan 150 mg tablet RxNorm: 243653 1 Tablet(s) PO daily 12/25/2013 12/31/2013 Inactive tamsulosin ER 0.4 mg capsule,extended release 24 hr RxNorm: 526660 1 Capsule(s) PO QPM 11/28/2013 06/23/2014 Inactive cyanocobalamin (vit B-12) 1,000 mcg/mL injection solution RxNorm: 433305 1 Milliliter(s) Inj 11/28/2013 12/12/2014 Inactive Vitamin B-12 1,000 mcg/mL injection solution RxNorm: 019202 1 Milliliter(s) Inj monthly 11/21/2013 02/13/2015 Inactive please give syringes for injections Vitamin D2 50,000 unit capsule RxNorm: 340003 1 Capsule(s) PO QW x 12 weeks 11/21/2013 02/06/2014 Inactive [SAVINGS FOR UNINSURED PATIENTS -- to take addtional 2000 units daily Vitamin B-12 1,000 mcg/mL injection solution RxNorm: 286942 1 Milliliter(s) Inj monthly 11/21/2013 11/20/2013 Inactive meloxicam 15 mg tablet RxNorm: 695036 1 Tablet(s) PO daily 11/20/2013 11/19/2013 Inactive [SAVINGS FOR UNINSURED PATIENTS -- BIN:868638, PCN: [id number], Group: [id number], ID# [id number], Process claim through [employer], for questions: . THIS IS NOT INSURANCE.] meloxicam 15 mg tablet RxNorm: 158211 1 Tablet(s) PO daily 11/20/2013 02/06/2014 Inactive [SAVINGS FOR UNINSURED PATIENTS -- BIN:989316, PCN: ASPROD1, Group: [id number], ID# [id number], Process claim through [employer], for questions: . THIS IS NOT INSURANCE.] meloxicam 15 mg tablet RxNorm: 901289 1 Tablet(s) PO daily 11/20/2013 11/19/2013 Inactive Voltaren 1 % topical gel RxNorm: 082029 4 Application TOP QID apply to back, affected joints four times daily 11/14/2013 11/20/2013 Inactive trazodone 50 mg tablet RxNorm: 576259 1 Tablet(s) PO QHS No Start Date Active Vitamin D2 50,000 unit capsule RxNorm: 117197 1 Capsule(s) PO QW No Start Date 05/26/2014 Inactive once weekly x 12 weeks Zithromax Z-Brian 250 mg tablet RxNorm: 173258 1 Tablet(s) PO UD No Start Date 02/06/2018 Inactive Vitamin D2 50,000 unit capsule RxNorm: 782210 1 Capsule(s) PO QW No Start Date 11/20/2013 Inactive gabapentin 300 mg capsule RxNorm: 062584 1 Capsule(s) PO TID No Start Date 03/28/2017 Inactive Vesicare 10 mg tablet RxNorm: 031869 1 Tablet(s) PO QHS No Start Date 03/14/2016 Inactive Toprol XL 25 mg tablet,extended release RxNorm: 872720 1 Tablet(s) PO daily No Start Date 04/19/2018 Inactive Vitamin D3 5,000 unit tablet RxNorm: 293137 1 Tablet(s) PO daily No Start Date 08/11/2015 Inactive Celebrex 200 mg capsule RxNorm: 351690 1 Capsule(s) PO BID No Start Date 07/19/2016 Inactive Imitrex 50 mg tablet RxNorm: 214872 1 Tablet(s) PO now and may repeat up to four times in 24 hours No Start Date 11/03/2014 Inactive Zofran 4 mg tablet RxNorm: 576330 1 Tablet(s) PO Q8 as needed nausea and vomitting No Start Date 10/15/2015 Inactive ranitidine 150 mg tablet RxNorm: 103077 1 Tablet(s) PO BID No Start Date 02/12/2018 Inactive Phenergan 25 mg tablet RxNorm: 660621 1 Tablet(s) PO now No Start Date 04/15/2015 Inactive Tums oral RxNorm: 631356 oral No Start Date 10/15/2015 Inactive Medication Administered Medication Codes Instructions Start Date Status Kenalog 40 mg/mL suspension for injection RxNorm: 0721511 1Milliliter 09/07/2017 No longer Active cyanocobalamin (vit B-12) 1,000 mcg/mL injection solution RxNorm: 711362 1Milliliter 11/28/2013 No longer Active Immunizations Vaccine [...] recently went to an eye doctor in [place]. Reports that he did have hemorrhaging in his right eye which is getting better. headache 04/18/2014 Pt states he recently went to an eye doctor in [place] shortness of breath 02/21/2014 blisters 12/25/2013 insomnia 11/28/2013 back pain 11/14/2013 Results Observation Observation Code Item Item Code Result Date Vitamin D 25 Oh [id number] VITAMIN D, 25 HYDROXY 66.80 ng/mL 03/14/2018 [...] 28.5 pg 03/14/2018 Cbc With Differential Ord2 [place]% 7.6 % 03/14/2018 Cbc With Differential Ord2 [...] 1.28 K/ul 03/14/2018 Cbc With Differential Ord2 [place] ABS# 0.4 K/ul 03/14/2018 Cbc With Differential [...] Lipid Ord30 C/HDL 5.0 Ratio 06/27/2017 %Hba1C Vuj880 % HbA1c 19464- 6 6.2 % 06/27/2017 %Hba1C Yuc858 Gluc Ave 131 mg/dL 06/27/2017 Comp Metabolic Xlx514 NA 140 mEq/L 06/27/2017 Comp Metabolic Xal821 K 4.2 mEq/L 06/27/2017 Comp Metabolic Crg532 CL 100 mEq/L 06/27/2017 Comp Metabolic Teb130 CO2 32.0 mEq/L 06/27/2017 Comp Metabolic Fec154 ANION GAP 12 06/27/2017 Comp Metabolic Ujb655 GLUCOSE 118 mg/dL 06/27/2017 Comp Metabolic Osg773 Creat 1.0 mg/dL 06/27/2017 Comp Metabolic Rts075 eGFR 82 ml/min/1.73m2 06/27/2017 Comp Metabolic Qiw914 BUN 26 mg/dL 06/27/2017 Comp Metabolic Qpa506 B/C Ratio 27.1 Ratio 06/27/2017 Comp Metabolic Xuc392 CALCIUM 9.6 mg/dL 06/27/2017 Comp Metabolic Sgm795 ALK PHOS 46 U/L 06/27/2017 Comp Metabolic Iqj447 AST(SGOT) 23 U/L 06/27/2017 Comp Metabolic Qqh480 ALT(SGPT) 31 U/L 06/27/2017 Comp Metabolic Xgh793 BILI T 0.5 mg/dL 06/27/2017 Comp Metabolic Nuv362 ALBUMIN 4.2 g/dL 06/27/2017 Comp Metabolic Vzz607 TPRO 6.6 g/dL 06/27/2017 Comp Metabolic Vez638 GLOB 2.4 g/dL 06/27/2017 Comp Metabolic Qbv883 A/G Ratio 1.7 Ratio 06/27/2017 Comp Metabolic Ifn853 Osmo 285 mOsmo 06/27/2017 Cbc With Differential [...] 29.0 pg 10/20/2016 Cbc With Differential Ord2 [place]% 9.0 % 10/20/2016 Cbc With Differential Ord2 [...] 1.33 K/ul 10/20/2016 Cbc With Differential Ord2 [place] ABS# 0.4 K/ul 10/20/2016 Cbc With Differential Ord2 Eos ABS# 0.2 K/ul 10/20/2016 Cbc With Differential Ord2 Baso ABS# 0.0 K/ul 10/20/2016 Comp Metabolic Gcd350 NA 143 mEq/L 10/20/2016 Comp Metabolic Erz168 K 4.6 mEq/L 10/20/2016 Comp Metabolic Dyz652 CL 104 mEq/L 10/20/2016 Comp Metabolic Npj876 CO2 31.0 mEq/L 10/20/2016 Comp Metabolic Vgu034 ANION GAP 13 10/20/2016 Comp Metabolic Blj081 GLUCOSE 117 mg/dL 10/20/2016 Comp Metabolic Qoy320 Creat 1.1 mg/dL 10/20/2016 Comp Metabolic Evd566 eGFR 74 ml/min/1.73m2 10/20/2016 Comp Metabolic Uux918 BUN 27 mg/dL 10/20/2016 Comp Metabolic Eqz944 B/C Ratio 25.7 Ratio 10/20/2016 Comp Metabolic Vbn224 CALCIUM 9.3 mg/dL 10/20/2016 Comp Metabolic Ono104 ALK PHOS 47 U/L 10/20/2016 Comp Metabolic Ebw307 AST(SGOT) 18 U/L 10/20/2016 Comp Metabolic Psg478 ALT(SGPT) 22 U/L 10/20/2016 Comp Metabolic Dwe600 BILI T 0.5 mg/dL 10/20/2016 Comp Metabolic Hxi602 ALBUMIN 3.9 g/dL 10/20/2016 Comp Metabolic Kai966 TPRO 6.5 g/dL 10/20/2016 Comp Metabolic Euy866 GLOB 2.6 g/dL 10/20/2016 Comp Metabolic Qgh198 A/G Ratio 1.5 Ratio 10/20/2016 Comp Metabolic Zar241 Osmo 291 mOsmo 10/20/2016 Tsh Ord6 hTSH II 1.56 uIU/mL 10/20/2016 Lipid Ord30 CHOL 153 mg/dL 10/20/2016 Lipid Ord30 HDL 34.0 mg/dl 10/20/2016 Lipid Ord30 TRIG 123 mg/dL 10/20/2016 Lipid Ord30 LDL 94 mg/dL 10/20/2016 Lipid Ord30 C/HDL 4.5 Ratio 10/20/2016 B12 Srx305 B12 544.00 pg/ml 10/20/2016 Comp Metabolic Jvh207 NA 138 mEq/L 05/13/2016 Comp Metabolic Myx453 K 4.2 mEq/L 05/13/2016 Comp Metabolic Nbt869 CL 102 mEq/L 05/13/2016 Comp Metabolic Qbz947 CO2 30.0 mEq/L 05/13/2016 Comp Metabolic Otv839 ANION GAP 10 05/13/2016 Comp Metabolic Zoo790 GLUCOSE 113 mg/dL 05/13/2016 Comp Metabolic Nwa177 Creat 1.0 mg/dL 05/13/2016 Comp Metabolic Fqu893 eGFR 77 ml/min/1.73m2 05/13/2016 Comp Metabolic Zvt516 BUN 26 mg/dL 05/13/2016 Comp Metabolic Nrq041 B/C Ratio 25.5 Ratio 05/13/2016 Comp Metabolic Ovf613 CALCIUM 9.7 mg/dL 05/13/2016 Comp Metabolic Cxh681 ALK PHOS 51 U/L 05/13/2016 Comp Metabolic Klh674 AST(SGOT) 17 U/L 05/13/2016 Comp Metabolic Ndj491 ALT(SGPT) 20 U/L 05/13/2016 Comp Metabolic Kud189 BILI T 0.6 mg/dL 05/13/2016 Comp Metabolic Gft915 ALBUMIN 4.0 g/dL 05/13/2016 Comp Metabolic Yka069 TPRO 6.6 g/dL 05/13/2016 Comp Metabolic Pfb023 GLOB 2.6 g/dL 05/13/2016 Comp Metabolic Uzf150 A/G Ratio 1.6 Ratio 05/13/2016 Comp Metabolic Wba670 Osmo 281 mOsmo 05/13/2016 Lipid Ord30 CHOL [...] 89.0 fl 02/11/2016 Cbc With Differential Ord2 [place]% 7.7 % 02/11/2016 Cbc With Differential Ord2 [...] 1.18 K/ul 02/11/2016 Cbc With Differential Ord2 [place] ABS# 0.4 K/ul 02/11/2016 Cbc With Differential Ord2 Eos ABS# 0.1 K/ul 02/11/2016 Cbc With Differential Ord2 Baso ABS# 0.0 K/ul 02/11/2016 Comp Metabolic Htd654 NA 138 mEq/L 02/11/2016 Comp Metabolic Bvi970 K 4.0 mEq/L 02/11/2016 Comp Metabolic Pvx862 CL 97 mEq/L 02/11/2016 Comp Metabolic Zjm940 CO2 32.0 mEq/L 02/11/2016 Comp Metabolic Wpb229 ANION GAP 13 02/11/2016 Comp Metabolic Mle542 GLUCOSE 117 mg/dL 02/11/2016 Comp Metabolic Zos566 Creat 1.0 mg/dL 02/11/2016 Comp Metabolic Hiz612 eGFR 81 ml/min/1.73m2 02/11/2016 Comp Metabolic Bae700 BUN 21 mg/dL 02/11/2016 Comp Metabolic Emr680 B/C Ratio 21.4 Ratio 02/11/2016 Comp Metabolic Ben966 CALCIUM 9.2 mg/dL 02/11/2016 Comp Metabolic Hsn841 ALK PHOS 48 U/L 02/11/2016 Comp Metabolic Eme693 AST(SGOT) 18 U/L 02/11/2016 Comp Metabolic Itp973 ALT(SGPT) 22 U/L 02/11/2016 Comp Metabolic Kdj711 BILI T 0.5 mg/dL 02/11/2016 Comp Metabolic Vxv510 ALBUMIN 3.9 g/dL 02/11/2016 Comp Metabolic Szc620 TPRO 6.3 g/dL 02/11/2016 Comp Metabolic Uvq721 GLOB 2.5 g/dL 02/11/2016 Comp Metabolic Vid844 A/G Ratio 1.6 Ratio 02/11/2016 Comp Metabolic Jzc041 Osmo 280 mOsmo 02/11/2016 Lipid Ord30 CHOL 163 mg/dL 02/11/2016 Lipid Ord30 HDL 35.0 mg/dl 02/11/2016 Lipid Ord30 TRIG 200 mg/dL 02/11/2016 Lipid Ord30 LDL 88 mg/dL 02/11/2016 Lipid Ord30 C/HDL 4.7 Ratio 02/11/2016 %Hba1C Ino694 % HbA1c 16158- 6 6.5 % 02/11/2016 %Hba1C Yok263 Gluc Ave 140 mg/dL 02/11/2016 Tsh Ord6 hTSH II 2.07 uIU/mL 02/11/2016 B12 Bem030 B12 563.00 pg/ml 02/11/2016 Culture Urine [id number] URINE CULTURE SEE NOTES 02/10/2016 Culture Urine [id number] Continued Results 02/10/2016 Urine Culture Ucult Complete [...] 11/04/2015 Urinalysis Ord28 U-Yeast NEGATIVE 11/04/2015 %Hba1C Jtt735 % HbA1c 66776- 6 6.4 % 04/16/2015 %Hba1C Wpl443 Gluc Ave 137 mg/dL 04/16/2015 Tsh Ord6 hTSH II 3.33 uIU/mL 02/07/2015 Comp Metabolic Yse378 NA 136 mEq/L 02/07/2015 Comp Metabolic Wgy514 K 3.9 mEq/L 02/07/2015 Comp Metabolic Tbz075 CL 98 mEq/L 02/07/2015 Comp Metabolic Olm686 CO2 31.0 mEq/L 02/07/2015 Comp Metabolic Lqp641 ANION GAP 11 02/07/2015 Comp Metabolic Ekv054 GLUCOSE 139 mg/dL 02/07/2015 Comp Metabolic Xlt142 Creat 0.9 mg/dL 02/07/2015 Comp Metabolic Azb437 eGFR 87 ml/min/1.73m2 02/07/2015 Comp Metabolic Zio601 BUN 20 mg/dL 02/07/2015 Comp Metabolic Png116 B/C Ratio 21.7 Ratio 02/07/2015 Comp Metabolic Ysr758 CALCIUM 9.7 mg/dL 02/07/2015 Comp Metabolic Div953 ALK PHOS 55 U/L 02/07/2015 Comp Metabolic Imf749 AST(SGOT) 20 U/L 02/07/2015 Comp Metabolic Bde063 ALT(SGPT) 27 U/L 02/07/2015 Comp Metabolic Qfo660 BILI T 0.5 mg/dL 02/07/2015 Comp Metabolic Imr542 ALBUMIN 4.3 g/dL 02/07/2015 Comp Metabolic Ols316 TPRO 6.9 g/dL 02/07/2015 Comp Metabolic Imh567 GLOB 2.6 g/dL 02/07/2015 Comp Metabolic Jqr997 A/G Ratio 1.7 Ratio 02/07/2015 Comp Metabolic Yfy765 Osmo 277 mOsmo 02/07/2015 Cbc With Differential [...] Ord2 RDW 14.8 % 02/07/2015 A1C HPLC [id number] A1C HPLC 67945-1 6.0 % 05/23/2014 VIT B 12 6250124 VIT B 12 479 PG/ML 05/23/2014 VIT D TOTL [id number] VIT D TOTL 29 NG/ML 05/23/2014 Review [...] kyphoscoliosis 03/21/2018 None Full Exam - General 1995 Musculoskeletal gait and station Gait: asymmetric 03/21/2018 [...] lips 02/08/2018 None Full Exam - General 1995 Ears/Nose/Throat oral cavity/pharynx/larynx Overall: oral mucosa clear 02/08/2018 None Full Exam - General 1995 Ears/Nose/Throat oral cavity/pharynx/larynx Posterior Pharynx: clear post nasal drainage 02/08/2018 None Full Exam - General 1995 Respiratory auscultation Diffuse: diminished 02/08/2018 None Full [...] distress 06/07/2017 None Full Exam - General 1995 Constitutional general appearance Overall: well nourished 06/07/2017 [...] 4: G0439 12/27/2017 THER/PROPH/DIAG INJ SC/IM CPT-4: 24055 09/07/2017 TRIAMCINOLONE ACET INJ NOS CPT-4: J3301 09/07/2017 ROUTINE VENIPUNCTURE CPT- 4: 99247 05/23/2014 THER/PROPH/DIAG INJ SC/IM CPT-4: 15800 11/28/2013 VITAMIN B12 INJECTION CPT- 4: J3420 11/28/2013 Vital Signs Date Vital 04/20/2018 Blood Pressure 1: 126/74 Code: 8480-6 BMI: 36.6 Code: 83693-0 Heart Rate 1: 60 bpm Height: 6' SpO2: 94% Weight: 270 lbs 03/21/2018 Blood Pressure 1: 138/74 Code: 8480-6 BMI: 36.8 Code: 00133-2 Heart Rate 1: 81 bpm Height: 6' SpO2: 98% Weight: 271 lbs 02/08/2018 Blood Pressure 1: 132/74 Code: 8480-6 BMI: 37.0 Code: 07176-2 Heart Rate 1: 82 bpm Height: 6' SpO2: 97% Weight: 273 lbs 12/27/2017 Blood Pressure 1: 148/78 Code: 8480-6 BMI: 36.3 Code: 52675-3 Heart Rate 1: 78 bpm Height: 6' SpO2: 93% Waist Measure (cm): 117 cm Weight: 268 lbs 12/06/2017 Blood Pressure 1: 122/70 Code: 8480-6 BMI: 36.6 Code: 93018-5 Heart Rate 1: 76 bpm Height: 6' SpO2: 93% Weight: 270 lbs 11/01/2017 BMI: 36.9 Code: 92157-3 Height: 6' Weight: 272 lbs 09/07/2017 Blood Pressure 1: 140/78 Code: 8480-6 BMI: 35.8 Code: 65595-1 Heart Rate 1: 76 bpm Height: 6' SpO2: 98% Weight: 264 lbs 06/07/2017 Blood Pressure 1: 138/86 Code: 8480-6 BMI: 36.3 Code: 07986-2 Heart Rate 1: 66 bpm Height: 6' SpO2: 95% Weight: 268 lbs 05/19/2017 Blood Pressure 1: 152/84 Code: 8480-6 BMI: 36.8 Code: 41520-1 Heart Rate 1: 70 bpm Height: 6' SpO2: 93% Weight: 271 lbs 05/09/2017 Blood Pressure 1: 138/76 Code: 8480-6 BMI: 36.6 Code: 41591-8 Heart Rate 1: 79 bpm Height: 6' SpO2: 93% Weight: 270 lbs 04/25/2017 Blood Pressure 1: 150/80 Code: 8480-6 Heart Rate 1: 58 bpm Height: SpO2: 94% Weight: 2017 Blood Pressure 1: 138/80 Code: 8480-6 BMI: 36.5 Code: 02534-9 Heart Rate 1: 76 bpm Height: 6' SpO2: 96% Weight: 269 lbs 03/29/2017 Blood Pressure 1: 118/68 Code: 8480-6 BMI: 36.9 Code: 30398-0 Heart Rate 1: 61 bpm Height: 6' SpO2: 95% Weight: 272 lbs 03/17/2017 Blood Pressure 1: 140/78 Code: 8480-6 BMI: 36.8 Code: 77538-8 Heart Rate 1: 91 bpm Height: 6' SpO2: 93% Weight: 271 lbs 03/08/2017 Blood Pressure 1: 152/84 Code: 8480-6 BMI: 36.8 Code: 45424-8 Heart Rate 1: 72 bpm Height: 6' SpO2: 92% Temperature: 36.6 (C) / 97.8 (F) Weight: 271 lbs 02/17/2017 Blood Pressure 1: 110/64 Code: 8480-6 BMI: 36.5 Code: 70425-0 Heart Rate 1: 62 bpm Height: 6' SpO2: 96% Weight: 269 lbs 01/18/2017 Blood Pressure 1: 140/80 Code: 8480-6 BMI: 36.5 Code: 56282-0 Heart Rate 1: 62 bpm Height: 6' SpO2: 94% Weight: 269 lbs 10/19/2016 Blood Pressure 1: 120/80 Code: 8480-6 BMI: 35.9 Code: 51769-0 Heart Rate 1: 64 bpm Height: 6' SpO2: 97% Weight: 265 lbs 08/17/2016 Blood Pressure 1: 112/76 Code: 8480-6 BMI: 36.1 Code: 65782-4 Heart Rate 1: 65 bpm Height: 6' SpO2: 97% Weight: 266 lbs 07/20/2016 Blood Pressure 1: 126/78 Code: 8480-6 BMI: 35.5 Code: 84515-9 Heart Rate 1: 60 bpm Height: 6' SpO2: 95% Weight: 262 lbs 04/19/2016 Blood Pressure 1: 132/78 Code: 8480-6 BMI: 35.1 Code: 17341-6 Heart Rate 1: 65 bpm Height: 6' SpO2: 98% Weight: 259 lbs 01/19/2016 Blood Pressure 1: 140/64 Code: 8480-6 BMI: 34.4 Code: 16715-5 Heart Rate 1: 61 bpm Height: 6' SpO2: 97% Weight: 254 lbs 10/16/2015 Blood Pressure 1: 108/66 Code: 8480-6 BMI: 35.3 Code: 48347-2 Heart Rate 1: 65 bpm Height: 6' SpO2: 96% Weight: 260 lbs 07/17/2015 Blood Pressure 1: 136/74 Code: 8480-6 BMI: 35.8 Code: 60178-8 Heart Rate 1: 59 bpm Height: 6' SpO2: 97% Weight: 263 lbs 13 oz 07/03/2015 Weight: 265 lbs 04/16/2015 Blood Pressure 1: 130/82 Code: 8480-6 BMI: 36.1 Code: 62162-4 Heart Rate 1: 7694 bpm Height: 6' SpO2: 94% Weight: 266 lbs 02/19/2015 Blood Pressure 1: 160/90 Code: 8480-6 BMI: 35.8 Code: 62561-2 Heart Rate 1: 78 bpm Height: 6' SpO2: 94% Weight: 264 lbs 11/20/2014 Blood Pressure 1: 140/96 Code: 8480-6 BMI: 34.6 Code: 86873-9 Heart Rate 1: 92 bpm Height: 6' SpO2: 95% Weight: 255 lbs 11/05/2014 Blood Pressure 1: 132/70 Code: 8480-6 BMI: 34.6 Code: 83965-9 Heart Rate 1: 96 bpm Height: 6' SpO2: 98% Weight: 255 lbs 09/19/2014 Blood Pressure 1: 152/86 Code: 8480-6 BMI: 35.8 Code: 22852-0 Heart Rate 1: 82 bpm Height: 6' SpO2: 95% Weight: 264 lbs 07/24/2014 Blood Pressure 1: 142/82 Code: 8480-6 BMI: 34.7 Code: 09939-3 Heart Rate 1: 72 bpm Height: 6' Weight: 256 lbs 05/23/2014 Blood Pressure 1: 150/82 Code: 8480-6 BMI: 33.4 Code: 87580-6 Heart Rate 1: 68 bpm Height: 6' Weight: 246 lbs 04/18/2014 Blood Pressure 1: 132/84 Code: 8480-6 BMI: 33.2 Code: 69940-4 Heart Rate 1: 80 bpm Height: 6' Weight: 245 lbs 02/21/2014 Blood Pressure 1: 138/82 Code: 8480-6 BMI: 32.4 Code: 61497-6 Heart Rate 1: 85 bpm Height: 6' SpO2: 98% Weight: 239 lbs 12/25/2013 Blood Pressure 1: 146/80 Code: 8480-6 BMI: 30.5 Code: 32874-8 Heart Rate 1: 100 bpm Height: 6' Weight: 225 lbs 11/28/2013 Blood Pressure 1: 120/64 Code: 8480-6 BMI: 30.4 Code: 14437-1 Heart Rate 1: 68 bpm Height: 6' Weight: 224 lbs 11/14/2013 Blood Pressure 1: 124/80 Code: 8480-6 BMI: 30.0 Code: 47179-8 Heart Rate 1: 76 bpm Height: 6' [...] Maxitrol and Polytrim seeing eye dr in [place]. Reports eye still feels irritated. headache Quality [...] Codes Date EST. 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 PATIENT, LEVEL III Diagnosis: Acute bronchitis due to other specified organisms[ICD10: J20.8] Antoinette Long MD, [facility] CPT-4: 75676 02/08/2018 ([id number]) 93605 EST. 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 PATIENT, LEVEL III Diagnosis: Essential (primary) hypertension[ICD10: I10] Diagnosis: Localized edema[ICD10: R60.0] Diagnosis: Cellulitis of left lower limb[ICD10: L03.116] Quyen Long MD, [facility] CPT-4: 82022 06/07/2017 ([id number]) 46661 EST. 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 PATIENT, LEVEL II Diagnosis: Rash and other nonspecific skin eruption[ICD10: R21] Glory Long MD, [facility] CPT-4: 47385 05/09/2017 ([id number]) 80128 EST. PATIENT, LEVEL II Diagnosis: Rash and other nonspecific skin eruption[ICD10: R21] Glory Long MD, [facility] CPT-4: 95726 04/25/2017 ([id number]) 27738 EST. PATIENT, LEVEL III Diagnosis: Cellulitis of left lower limb[ICD10: L03.116] Diagnosis: Rash and other nonspecific skin eruption[ICD10: R21] Glory Long MD, [facility] CPT-4: 58555 2017 ([id number]) 24480 EST. PATIENT, LEVEL III Diagnosis: Cellulitis of left lower limb[ICD10: L03.116] Diagnosis: Rash and other nonspecific skin eruption[ICD10: R21] Glory Long MD, [facility] CPT-4: 48831 03/29/2017 99190 EST. PATIENT, LEVEL IV Diagnosis: Cellulitis of left lower limb[ICD10: L03.116] Antoinette Long MD, [facility] CPT-4: 48859 03/17/2017 ([id number]) 12951 EST. PATIENT, LEVEL III Diagnosis: Rash and other nonspecific skin eruption[ICD10: R21] Glory Long MD, [facility] CPT-4: 98252 03/08/2017 80026 EST. PATIENT, LEVEL IV Diagnosis: Essential (primary) hypertension[ICD10: I10] Diagnosis: Muscle weakness (generalized)[ICD10: M62.81] Diagnosis: Body mass index (BMI) 36.0-36.9, adult[ICD10: Z68.36] Diagnosis: Family history of ischemic heart disease and other diseases of the circulatory system[ICD10: Z82.49] Antoinette Long MD, [facility] CPT-4: 01877 02/17/2017 ([id number]) 85013 EST. PATIENT, LEVEL IV Diagnosis: Essential (primary) hypertension[ICD10: I10] Diagnosis: Muscle weakness (generalized)[ICD10: M62.81] Quyen Long MD, [facility] CPT-4: 70982 01/18/2017 ([id number]) 45566 EST. 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 PATIENT, LEVEL III Diagnosis: Pain in left shoulder[ICD10: M25.512] Diagnosis: Rash and other nonspecific skin eruption[ICD10: R21] Glory Long MD, [facility] CPT-4: 18181 08/17/2016 ([id number]) 04907 EST. PATIENT, LEVEL IV Diagnosis: Essential (primary) hypertension[ICD10: I10] Diagnosis: Pain in left shoulder[ICD10: M25.512] Quyen Long MD, [facility] CPT-4: 56229 07/20/2016 ([id number]) 97893 EST. 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 PATIENT, LEVEL IV Diagnosis: Essential (primary) hypertension[ICD10: I10] Diagnosis: Other abnormal glucose[ICD10: R73.09] Diagnosis: Gastro-esophageal reflux disease without esophagitis[ICD10: K21.9] Diagnosis: Obesity, unspecified[ICD10: E66.9] Quyen Long MD [facility] CPT- 4: 36685 04/16/2015 ([id number]) 56589 EST. PATIENT, LEVEL IV Diagnosis: ESSENTIAL HYPERTENSION[ICD9: 401.9] Diagnosis: OBESITY[ICD9: 278.00] Diagnosis: Post-polio limb muscle weakness[ICD9: 728.87] Quyen Long MD [facility] CPT-4: 15305 02/19/2015 ([id number]) 75551 EST. PATIENT, LEVEL IV Diagnosis: Shingles outbreak[ICD9: 053.9] Diagnosis: ESSENTIAL HYPERTENSION[ICD9: 401.9] Diagnosis: Earache[ICD9: 388.70] Quyen Long MD [facility] CPT-4: 54198 11/20/2014 ([id number]) 59748 EST. PATIENT, LEVEL III Diagnosis: Shingles outbreak[ICD9: 053.9] Diagnosis: Face pain[ICD9: 784.0] Diagnosis: Pain, eye, right[ICD9: 379.91] Quyen Long MD [facility] CPT-4: 49979 11/05/2014 ([id number]) 59389 EST. PATIENT, LEVEL V Diagnosis: Post-polio limb muscle weakness[ICD9: 728.87] Diagnosis: Post-polio syndrome[ICD9: 138] Diagnosis: Leg weakness[ICD9: 729.89] Diagnosis: Weakness[ICD9: 780.79] Diagnosis: Foot drop[ICD9: 736.79] Quyen Long MD [facility] CPT-4: 30841 09/19/2014 ([id number]) 85800 EST. PATIENT, LEVEL IV Diagnosis: ESSENTIAL HYPERTENSION[ICD9: 401.9] Diagnosis: Carotid bruit[ICD9: 785.9] Diagnosis: Seborrheic dermatitis[ICD9: 690.10] Diagnosis: Post-polio syndrome[ICD9: 138] Diagnosis: Vitamin D deficiency[ICD9: 268.9] Quyen Long MD, [facility] CPT- 4: 67657 07/24/2014 ([id number]) 24913 EST. PATIENT, LEVEL IV Diagnosis: Neck pain[ICD9: 723.1] Diagnosis: Post-polio syndrome[ICD9: 138] Diagnosis: Vitamin D deficiency[ICD9: 268.9] Diagnosis: Vitamin B12 deficiency[ICD9: 266.2] Diagnosis: Nocturia[ICD9: 788.43] Diagnosis: Leg weakness[ICD9: 729.89] Diagnosis: Elevated blood sugar[ICD9: 790.29] Glory Long MD, [facility] CPT- 4: 59996 05/23/2014 ([id number]) 43792 EST. PATIENT, LEVEL IV Diagnosis: ESSENTIAL HYPERTENSION[ICD9: 401.9] Diagnosis: HEADACHE[ICD9: 784.0] Diagnosis: EDEMA[ICD9: 782.3] Quyen Long MD, [facility] CPT-4: 43916 04/18/2014 41798 EST. PATIENT, LEVEL IV Diagnosis: Insomnia[ICD9: 780.52] Diagnosis: Post-polio syndrome[ICD9: 138] Diagnosis: Vitamin D deficiency[ICD9: 268.9] Diagnosis: Nocturnal hypoxemia[ICD9: 799.02] Glory Long MD, [facility] CPT- 4: 53816 02/21/2014 ([id number]) 91617 EST. PATIENT, LEVEL III Diagnosis: Tinea pedis[ICD9: 110.4] Diagnosis: Post-polio limb muscle weakness[ICD9: 728.87] Glory Long MD, [facility] CPT-4: 57669 12/25/2013 ([id number]) 66759 EST. PATIENT, LEVEL IV Diagnosis: Insomnia[ICD9: 780.52] Diagnosis: Vitamin B12 deficiency (dietary) anemia[ICD9: 281.1] Diagnosis: VITAMIN D DEFICIENCY[ICD9: 268.9] Diagnosis: Weakness[ICD9: 780.79] Quyen Long MD, [facility] CPT-4: 14865 11/28/2013 ([id number]) OFFICE/OUTPATIENT VISIT NEW Diagnosis: Post-polio limb muscle weakness[ICD9: 728.87] Diagnosis: Post-polio syndrome[ICD9: 138] Diagnosis: Insomnia[ICD9: 780.52] Diagnosis: Arrhythmia[ICD9: 427.9] [facility] CPT-4: 34455 11/14/2013 Plan of Care Planned Activity Notes [...] his shoulder. 04/20/2018 Appointment: Quyen Long WPtel: [facility] (15 min) Moderate 04/20/2018 Patient Education: Patient Medication Summary Completed 04/20/2018 Patient Education: Hypertension Completed 04/20/2018 Appointment: Quyen Long WPtel: [facility] (15 min) Moderate 04/11/2018 Visit Plan: Post polio syndrome -right leg weakness -patient needs repair and adjustment of his right leg brace that helps with his symptoms of instability and weakness and allows him to ambulate -will send rx to [facility] 03/21/2018 Appointment: Glory Dalton WPtel: [phone] [place] (15 min) Moderate 03/21/2018 Patient Education: [...] worsen. 02/08/2018 Appointment: [phone] [facility] (30 min) Complex 02/08/2018 Patient [...] Completed 12/27/2017 [phone] (15 min) Moderate 12/08/2017 Visit [...] injection. 12/06/2017 Appointment: [phone] [facility] (15 min) Moderate 12/06/2017 Patient [...] weight check. 09/07/2017 Appointment: Quyen Long WPtel: [address] [place], [place] [phone] (15 min) Moderate 09/07/2017 Patient Education: Patient [...] lower leg. 06/07/2017 Appointment: Quyen Long WPtel: [address] [place], [place] [id number] (15 min) Moderate 06/07/2017 Patient Education: Patient [...] compression recommended. 05/19/2017 Appointment: Quyen Long WPtel: [address] [place], [place] [phone] (15 min) Moderate 05/19/2017 Patient Education: Patient Medication Summary Completed 05/19/2017 Patient Education: Obesity Completed 05/19/2017 Patient Education: Hypertension Completed 05/19/2017 Visit Plan: Rash-left nyxx-pfehdgzp-impwcnelcn patient to continue using ketoconazole plus betamethasone equal parts and increase to TID-leave foot open to air as much as possible-follow up in 2 weeks, sooner if needed. 05/09/2017 Appointment: Glory Dalton WPtel: [address] [place], [place] [phone] [place] (30 min) Complex 05/09/2017 Patient Education: Patient Medication Summary Completed 05/09/2017 Patient Education: Obesity Completed 05/09/2017 Visit Plan: Rash-left foot-Dr Long in to evaluate rash-instructed patient to start using ketoconazole plus betamethasone equal parts TID -follow up in 2 weeks, sooner if needed. 04/25/2017 Appointment: Glory Dalton WPtel: [address] [place] [address] (30 min) Complex 04/25/2017 Patient Education: Patient Medication Summary Completed 04/25/2017 Visit Plan: Cellulitis of left foot-no longer draining-no open areas-no excoriation-slightly red-okay to d/c all treatments-keep clean and monitor-call if redness does not resolve Rash-resolved 2017 Appointment: Golry Dalton WPtel: [address] [place], [place] [phone] (30 min) Complex 2017 Patient Education: Patient Medication Summary Completed 2017 Patient Education: Obesity Completed 2017 Visit Plan: Cellulitis-left foot-MSSA tavyhaly-shazpbyli-ryyzi air in the evening-continue bactroban ointment twice daily-stop using alcohol on foot-no papertowels or abrasives to foot Ygmq-qmol-rj for betamethasone provided and instructed on use 03/29/2017 Appointment: Glory Dalton WPtel: [address] [place], [place] [phone] (30 min) Complex 03/29/2017 Patient Education: Patient Medication Summary Completed 03/29/2017 Patient Education: Obesity Completed 03/29/2017 Appointment: Glroy Dalton WPtel: [address] [place] [address] (30 min) Complex 03/22/2017 Visit Plan: Cellulitis [...] warmth, discharge. 03/17/2017 Appointment: Antoinette Arndt WPtel: [id number] (30 min) Complex 03/17/2017 Patient Education: Patient [...] break. 01/18/2017 Appointment: Quyen Long WPtel: [facility] (15 min) Moderate 01/18/2017 Patient Education: Patient [...] weakness. 10/19/2016 Appointment: [phone] [facility] (15 min) Moderate 10/19/2016 Patient Education: Patient Medication Summary Completed 10/19/2016 Patient Education: Obesity Completed 10/19/2016 Visit Plan: Left shoulder pain-hospital f/u recent shoulder surgery with Dr Wilson-doing well-sees Dr Wilson this afternoon for suture removal-pain improved Sbbh-lufe-nmqyfsn fungal infection-will treat with ket oconazole -follow up in 2 weeks 08/17/2016 Appointment: Gl[facility] Dalton [facility]Ptel[facility] [phone] [facility] (30 min) Complex 08/17/2016 Patient [...] ambulating. 07/20/2016 Appointment: [facility]Ptel[facility] [phone] [facility] (15 min) Moderate 07/20/2016 Patient Education: [...] strengthening. 04/19/2016 Appointment: Quyen Long WPtel: [phone] [facility] (15 min) Moderate 04/19/2016 Patient Education: Patient [...] appointment. 01/19/2016 Appointment: [facility]Ptel[facility] [phone] [facility] (15 min) Moderate 01/19/2016 Patient Education: Patient Medication Summary Completed 01/19/2016 Patient Education: Obesity Completed 01/19/2016 Patient Education: Hypertension Completed 01/19/2016 Referral: Dr Mccauley Referral Completed 11/11/2015 Care Plan: Referral Order SNOMED-CT : [id number] Pending 11/03/2015 Visit Plan: Hypertension - well [...] with injection 10/16/2015 Appointment: Quyen Long WPtel: [facility] (15 min) Moderate 10/16/2015 Patient [...] - 02/19/2015 Appointment: Quyen Long WPtel: [phone] [facility] (15 min) Moderate 02/19/2015 Patient Education: Patient [...] drops. 11/20/2014 Appointment: Quyen Long WPtel: [phone] [facility] Follow up 11/20/2014 Patient Education: Patient Medication [...] ESME. 11/05/2014 Appointment: Quyen Long WPtel: [phone] [facility] (15 min) Moderate 11/05/2014 Patient Education: Patient [...] to participate in activities outside of the skilled nursing. He has a family that would like [...] and foot. 09/19/2014 Appointment: Quyen Long WPtel: [address] [place], [place] [address] Follow up 09/19/2014 Patient Education: Patient Medication [...] deficiency - recommended repeat of vitamin d [id number] weekly x 12 weeks and increase vitamin d to 5000 units daily. 07/24/2014 Appointment: Quyen Long WPtel: [facility] Follow up 07/24/2014 Patient Education: Patient Medication [...] 05/23/2014 Appointment: Glory Dalton WPtel: [phone] Follow up 05/23/2014 Patient Education: Patient Medication Summary Completed 05/23/2014 Patient Education: .Cervicalgia Neck Pain Completed 05/23/2014 Appointment: Quyen Long WPtel: [facility] [place] Follow up 05/22/2014 Visit Plan: Edema [...] home. 04/18/2014 Appointment: [facility]Ptel[facility] [phone] [facility] Follow up 04/18/2014 Patient Education: Patient Medication Summary Completed 04/18/2014 Patient Education: Hypertension Completed 04/18/2014 Appointment: [facility]Ptel[facility] [phone] [facility] Follow up 02/27/2014 Visit Plan: Insomnia - Pt has been advised to increase the light in the house during the day, and start dimming the lights during the evening hours. Pt has been advised to cut out caffeine after 5pm. Daytime napping worsens night time insomnia. START TRAZODONE AND MONITOR SYMPTOMS. Vitamin D jeytmdmxfh-hhwumeiu-wfioswtq vitamin D 50,000 units weekly for 12 additional weeks. Hypoxemia-continue night time oxygen 02/21/2014 Appointment: Glory Dalton WPtel[facility] [phone] [facility] Follow up 02/21/2014 Patient Education: [...] mobic. 11/28/2013 Appointment: [facility]Ptel[facility] [phone] [facility] Follow up 11/28/2013 Patient Education: [...] study. 11/14/2013 Appointment: [facility]Ptel[facility] [phone] [facility] New Patient 11/14/2013 Patient Education: [...] START TRAZODONE AND MONITOR SYMPTOMS. Vitamin D yhcmcwbjpz-annpqxhm-ijiyiroj vitamin D 50,000 units weekly for 12 [...] up in 10 days . Cellulitis-left foot-MSSA eflaesvi-bqntwajbo-cewwz air in the evening-continue bactroban ointment twice daily-stop using alcohol on foot-no papertowels or abrasives to foot Rtyy-qovi-kb for betamethasone provided and instructed on use [...] wheeled walker with a seat provided. . Bronchitis - acute case of bronchitis identified. Pt has been given antibiotics, breathing treatments as appropriate, and pt has been instructed to call if symptoms are not improved, or if symptoms acutely worsen. . Hypertension - uncontrolled - the patient's [...] physical therapy for his shoulder and weakness. culture rash ketoconazole to rash on foot [...] and dressings to lower leg. . Rash-left qyax-rgxymlup-umwaatwuut patient to continue using ketoconazole plus betamethasone [...] deficiency - recommended repeat of vitamin d [id number] weekly x 12 weeks and increase vitamin [...] Wilson this afternoon for suture removal-pain improved Ttsu-zxmb-tpvtzou fungal infection-will treat with ketoconazole -follow up [...] appt with addie for shoulder injection. . Edema - pt has been advised [...] to participate in activities outside of the skilled nursing. He has a family that would like [...] for arthritis, continue exercising for strengthening. . Tinea pedis-discussed natural expected course of [...] prior to next follow up appointment. . Shingles - postherpetic neuralgia - improving [...] not resolving, can consider Auralgan ear drops. KETOCONAZOLE mixed with BETAMETHASONE THREE TIMES DAILY -MIX EQUAL PARTS . Rash-left foot-Dr Long in to evaluate rash-instructed patient to start using ketoconazole plus betamethasone equal parts TID -follow up in 2 weeks, sooner if needed. . Shingles - Herpes Zoster - acute [...] to see his eye doctor [facility]. . pt down one pound . Hypertension [...] shoulder surgery for him to rehabilitate. . Post-polio syndrome - with muscle weakness/wasting [...] Dr. Thomas. Edema - compression recommended. . Hypertension - well controlled - continue [...] RTC in one month for weight check. d/c treatments to left foot . Cellulitis [...] him to ambulate -will send rx to [facility]
--- OUTSIDE RECORDS SUMMARY | 2018-11-10 16:43 | XMS REPORT | CCD ---
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 Name Role Phone PP Unavailable CCM Unavailable Summary Purpose Interface Exchange Insurance Providers Payer name Policy type / Coverage type Covered democrat ID Effective Begin Date Effective End Date WPS Medicare Part B Medicare Part B [id number] 2017 Unknown [facility] Medicare Part B [id number] 2017 Unknown Family history Grandmother Diagnosis Age [...] Description Effective Dates Tobacco history SNOMED CT: 1998548 Former smoker 1.5 pack daily x 45 years 12/27/2017 Marital status Unknown 10/19/2016 Living arrangements Unknown Assisted Living [facility] 04/19/2016 Number of children Unknown 1 son - lives in [place] 11/14/2013 Employment Unknown 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 11/14/[address]: 863326447 Never drinks alcohol 11/14/2013 Has the patient [...] Start Date Stop Date Status Fill Instructions Toprol XL 50 mg tablet,extended release RxNorm: 667161 1 Tablet(s) PO daily 04/20/2018 No Stop Date Active Vitamin D3 5,000 unit tablet RxNorm: 493574 TAKE ONE TABLET BY MOUTH DAILY 04/05/2018 02/28/2019 Active trazodone 50 mg tablet RxNorm: 180585 TAKE ONE TABLET BY MOUTH AT BEDTIME 02/27/2018 07/26/2018 Active ranitidine 150 mg tablet RxNorm: 951887 1 Tablet(s) PO BID 02/13/2018 02/07/2019 Active hydrochlorothiazide 25 mg tablet RxNorm: 179856 TAKE ONE TABLET BY MOUTH DAILY 02/13/2018 11/09/2018 Active albuterol sulfate 2.5 mg/3 mL (0.083 %) solution for nebulization RxNorm: 666250 3 Milliliter(s) INH UD 02/08/2018 No Stop Date Active please deliver all of his prescriptions thank you cefdinir 300 mg capsule RxNorm: 997570 1 Capsule(s) PO BID 02/08/2018 02/17/2018 Inactive prednisone 20 mg tablet RxNorm: 999901 2 Tablet(s) PO daily 02/08/2018 02/12/2018 Inactive fluticasone 50 mcg/actuation nasal spray,suspension RxNorm: 1344729 1 Alder NASAL BID 02/07/2018 06/06/2018 Active fluticasone 50 mcg/actuation nasal spray,suspension RxNorm: 2788336 1 Alder NASAL BID 02/07/2018 02/06/2018 Inactive Zithromax Z-Brian 250 mg tablet RxNorm: 464406 1 Tablet(s) PO UD 02/07/2018 03/14/2018 Inactive zpack as directed tamsulosin 0.4 mg capsule RxNorm: 402228 TAKE ONE CAPSULE BY MOUTH EVERY EVENING 01/13/2018 06/11/2018 Active cetirizine 10 mg tablet RxNorm: 8939506 TAKE ONE TABLET BY MOUTH EVERY NIGHT AT BEDTIME 01/02/2018 04/01/2018 Inactive Vitamin D3 5,000 unit tablet RxNorm: 045159 TAKE ONE TABLET BY MOUTH DAILY 01/02/2018 04/04/2018 Inactive cetirizine 10 mg tablet RxNorm: 5430210 1 Tablet(s) PO QHS 12/26/2017 01/01/2018 Inactive cetirizine 10 mg tablet RxNorm: 5698189 1 Tablet(s) PO QHS 12/26/2017 12/25/2017 Inactive losartan 50 mg tablet RxNorm: 760041 TAKE ONE TABLET BY MOUTH DAILY (STARTING 09-09-2017) 09/29/2017 03/27/2018 Inactive Request already responded to by other means (e.g. phone or fax) losartan 50 mg tablet RxNorm: 800444 1 Tablet(s) PO daily 09/27/2017 09/26/2017 Inactive losartan 50 mg tablet RxNorm: 041990 1 Tablet(s) PO daily 09/27/2017 09/28/2017 Inactive Bactrim DS 800 mg-160 mg tablet RxNorm: 461184 1 Tablet(s) PO BID 09/13/2017 09/19/2017 Inactive Kenalog 40 mg/mL suspension for injection RxNorm: 6482084 1 Milliliter(s) Inj 09/07/2017 09/07/2017 Inactive trazodone 50 mg tablet RxNorm: 332828 TAKE ONE TABLET BY MOUTH AT BEDTIME 08/16/2017 02/11/2018 Inactive gabapentin 300 mg capsule RxNorm: 645629 1 Capsule(s) PO BID 08/03/2017 01/29/2018 Inactive Vitamin D3 5,000 unit tablet RxNorm: 488608 TAKE ONE TABLET BY MOUTH DAILY 08/01/2017 12/28/2017 Inactive ketoconazole 2 % topical cream RxNorm: 595218 APPLY TO AFFECTED AREA(S) TWO TIMES A DAY 05/31/2017 06/29/2017 Inactive hydrochlorothiazide 25 mg tablet RxNorm: 320564 TAKE ONE TABLET BY MOUTH DAILY 05/16/2017 02/09/2018 Inactive lisinopril 20 mg tablet RxNorm: 792295 TAKE ONE TABLET BY MOUTH DAILY 05/16/2017 09/06/2017 Inactive ketoconazole 2 % topical cream RxNorm: 468558 1 Application TOP BID 03/29/2017 04/11/2017 Inactive apply to faice-deliver to [facility] please betamethasone dipropionate 0.05 % topical ointment RxNorm: 904827 1 Application TOP BID 03/29/2017 04/11/2017 Inactive apply to arm/chests for itching gabapentin 300 mg capsule RxNorm: 116687 1 Capsule(s) PO BID 03/29/2017 08/02/2017 Inactive trazodone 50 mg tablet RxNorm: 964860 TAKE ONE TABLET BY MOUTH AT BEDTIME 03/28/2017 08/15/2017 Inactive Vesicare 10 mg tablet RxNorm: 481850 TAKE ONE TABLET BY MOUTH EVERY NIGHT AT BEDTIME 03/21/2017 12/26/2017 Inactive Vesicare 10 mg tablet RxNorm: 639290 TAKE ONE TABLET BY MOUTH EVERY NIGHT AT BEDTIME 03/21/2017 06/06/2017 Inactive doxycycline hyclate 100 mg capsule RxNorm: 0767513 1 Capsule(s) PO BID 03/18/2017 03/27/2017 Inactive mupirocin 2 % topical ointment RxNorm: 994963 1 Application TOP BID 03/17/2017 No Stop Date Active doxycycline hyclate 100 mg tablet RxNorm: 437790 1 Tablet(s) PO BID 03/09/2017 03/15/2017 Inactive Take probiotic BID while on ABT doxycycline hyclate 100 mg tablet RxNorm: 248853 1 Tablet(s) PO BID 03/09/2017 03/08/2017 Inactive Take probiotic BID while on ABT meloxicam 15 mg tablet RxNorm: 692709 TAKE ONE TABLET BY MOUTH DAILY 02/10/2017 12/06/2017 Inactive Vitamin D3 5,000 unit tablet RxNorm: 029525 TAKE ONE TABLET BY MOUTH DAILY 02/08/2017 07/31/2017 Inactive Vitamin B-12 1,000 mcg/mL injection solution RxNorm: 884350 INJECT 1ML MONTHLY 01/24/2017 07/22/2017 Inactive lisinopril 20 mg tablet RxNorm: 020399 TAKE ONE TABLET BY MOUTH DAILY 12/13/2016 04/11/2017 Inactive trazodone 50 mg tablet RxNorm: 364143 TAKE ONE TABLET BY MOUTH AT BEDTIME 09/24/2016 03/22/2017 Inactive Vitamin D3 5,000 unit tablet RxNorm: 512673 TAKE ONE TABLET BY MOUTH DAILY 09/20/2016 02/07/2017 Inactive lisinopril 20 mg tablet RxNorm: 884892 TAKE ONE TABLET BY MOUTH DAILY 09/13/2016 12/12/2016 Inactive ketoconazole 2 % topical cream RxNorm: 809540 1 Application TOP BID 08/17/2016 08/30/2016 Inactive [facility] Pepcid 20 mg tablet RxNorm: 387986 TAKE ONE TABLET BY MOUTH TWICE A DAY 07/12/2016 12/26/2017 Inactive omega-3 acid ethyl esters 1 gram capsule RxNorm: 714080 3 Capsule(s) PO daily 06/18/2016 12/14/2016 Inactive omega-3 acid ethyl esters 1 gram capsule RxNorm: 022901 3 Capsule(s) PO daily 06/18/2016 06/17/2016 Inactive trazodone 50 mg tablet RxNorm: 698791 TAKE ONE TABLET BY MOUTH AT BEDTIME 06/08/2016 08/06/2016 Inactive tamsulosin 0.4 mg capsule RxNorm: 594149 Capsule(s) TAKE ONE CAPSULE BY MOUTH EVERY EVENING 06/04/2016 12/30/2016 Inactive hydrochlorothiazide 25 mg tablet RxNorm: 965606 TAKE ONE TABLET BY MOUTH DAILY 05/10/2016 05/09/2016 Inactive hydrochlorothiazide 25 mg tablet RxNorm: 791341 TAKE ONE TABLET BY MOUTH DAILY 05/10/2016 02/12/2018 Inactive Pepcid 20 mg tablet RxNorm: 427531 1 Tablet(s) PO BID 03/18/2016 03/17/2016 Inactive Pepcid 20 mg tablet RxNorm: 357423 1 Tablet(s) PO BID 03/18/2016 07/11/2016 Inactive lisinopril 20 mg tablet RxNorm: 055447 TAKE ONE TABLET BY MOUTH DAILY 03/18/2016 08/14/2016 Inactive Vitamin D3 5,000 unit tablet RxNorm: 864111 Tablet(s) TAKE ONE TABLET BY MOUTH DAILY 03/18/2016 09/13/2016 Inactive trazodone 50 mg tablet RxNorm: 693022 TAKE ONE TABLET BY MOUTH AT BEDTIME 03/15/2016 06/07/2016 Inactive Vesicare 10 mg tablet RxNorm: 438315 1 Tablet(s) PO QHS 03/15/2016 02/07/2017 Inactive meloxicam 15 mg tablet RxNorm: 754723 TAKE ONE TABLET BY MOUTH DAILY 03/01/2016 01/24/2017 Inactive Bactrim DS 800 mg-160 mg tablet RxNorm: 549966 1 Tablet(s) PO BID 02/10/2016 02/09/2016 Inactive Bactrim DS 800 mg-160 mg tablet RxNorm: 370379 1 Tablet(s) PO BID 02/10/2016 02/16/2016 Inactive Cipro 500 mg tablet RxNorm: 520844 1 Tablet(s) PO BID 02/06/2016 02/09/2016 Inactive Cipro 500 mg tablet RxNorm: 476086 1 Tablet(s) PO BID 02/06/2016 02/05/2016 Inactive Pennsaid 20 mg/gram/actuation (2 %) topical soln in metered- dose pump RxNorm: 1796435 2 pumps TOP BID 01/19/2016 04/19/2016 Inactive tamsulosin 0.4 mg capsule RxNorm: 973917 TAKE ONE CAPSULE BY MOUTH EVERY EVENING 01/12/2016 06/03/2016 Inactive cyanocobalamin (vit B-12) 1,000 mcg/mL injection solution RxNorm: 233434 INJECT 1 ML INTRAMUSCULARLY MONTHLY 01/01/2016 10/26/2016 Inactive Request already responded to by other means (e.g. phone or fax) Vitamin B-12 1,000 mcg/mL injection solution RxNorm: 884995 1 Milliliter(s) Inj monthly 12/24/2015 04/19/2016 Inactive please give syringes for injections Vitamin D3 5,000 unit tablet RxNorm: 656473 TAKE ONE TABLET BY MOUTH DAILY 12/08/2015 03/06/2016 Inactive pantoprazole 40 mg tablet,delayed release RxNorm: 121240 TAKE ONE TABLET BY MOUTH DAILY 12/08/2015 03/17/2016 Inactive trazodone 50 mg tablet RxNorm: 383487 TAKE ONE TABLET BY MOUTH AT BEDTIME 11/10/2015 03/08/2016 Inactive lisinopril 20 mg tablet RxNorm: 744693 TAKE ONE TABLET BY MOUTH DAILY 09/08/2015 03/05/2016 Inactive Vitamin D3 5,000 unit tablet RxNorm: 460749 1 Tablet(s) PO daily 08/12/2015 12/07/2015 Inactive pantoprazole 40 mg tablet,delayed release RxNorm: 973923 1 Tablet(s) PO daily 08/12/2015 12/07/2015 Inactive tamsulosin 0.4 mg capsule RxNorm: 637185 TAKE ONE CAPSULE BY MOUTH EVERY EVENING 07/21/2015 12/17/2015 Inactive trazodone 50 mg tablet RxNorm: 570617 TAKE ONE TABLET BY MOUTH AT BEDTIME 05/09/2015 10/05/2015 Inactive hydrochlorothiazide 25 mg tablet RxNorm: 759691 1 Tablet(s) PO QAM 04/30/2015 04/29/2015 Inactive hydrochlorothiazide 25 mg tablet RxNorm: 078601 TAKE ONE TABLET BY MOUTH DAILY 04/30/2015 02/12/2018 Inactive pantoprazole 40 mg tablet,delayed release RxNorm: 108176 1 Tablet(s) PO daily 04/16/2015 08/11/2015 Inactive meloxicam 15 mg tablet RxNorm: 668335 TAKE ONE TABLET BY MOUTH DAILY 03/03/2015 02/25/2016 Inactive lisinopril 20 mg tablet RxNorm: 294124 1 Tablet(s) PO daily 02/19/2015 09/07/2015 Inactive tamsulosin 0.4 mg capsule RxNorm: 350967 TAKE ONE CAPSULE BY MOUTH EVERY EVENING 01/20/2015 07/18/2015 Inactive cyanocobalamin (vit B-12) 1,000 mcg/mL injection solution RxNorm: 116017 Milliliter(s) INJECT 1ML INTRAMUSCULARLY MONTHLY 12/12/2014 12/22/2014 Inactive trazodone 50 mg tablet RxNorm: 505804 TAKE ONE TABLET BY MOUTH AT BEDTIME 11/14/2014 05/08/2015 Inactive erythromycin 5 mg/gram (0.5 %) eye ointment RxNorm: 548612 1/2 inch OPH QID 11/05/2014 11/14/2014 Inactive acyclovir 800 mg tablet RxNorm: 417932 1 Tablet(s) PO TID 11/05/2014 11/18/2014 Inactive Zofran 4 mg tablet RxNorm: 936852 1 Tablet(s) PO Q4H as needed nausea 11/05/2014 01/03/2015 Inactive Duragesic 12 mcg/hr transdermal patch RxNorm: 659364 1 Patch TD Q72H 11/05/2014 02/04/2015 Inactive Imitrex 100 mg tablet RxNorm: 946876 1 Tablet(s) PO q 12 hours 11/04/2014 04/15/2015 Inactive naproxen 500 mg tablet RxNorm: 383746 1 Tablet(s) PO BID 10/30/2014 11/01/2014 Inactive meloxicam 15 mg tablet RxNorm: 289494 TAKE ONE TABLET BY MOUTH DAILY 10/04/2014 03/02/2015 Inactive Vesicare 5 mg tablet RxNorm: 826681 TAKE ONE TABLET BY MOUTH AT BEDTIME 09/16/2014 07/16/2015 Inactive Vitamin D2 50,000 unit capsule RxNorm: 545432 1 Capsule(s) PO QW 09/06/2014 07/16/2015 Inactive once weekly x 12 weeks tamsulosin ER 0.4 mg capsule,extended release 24 hr RxNorm: 537241 TAKE ONE CAPSULE BY MOUTH EVERY EVENING 06/24/2014 12/20/2014 Inactive tamsulosin ER 0.4 mg capsule,extended release 24 hr RxNorm: 308638 1 Capsule(s) PO QPM 06/24/2014 01/19/2015 Inactive Vitamin D2 50,000 unit capsule RxNorm: 366110 1 Capsule(s) PO QW 05/27/2014 09/05/2014 Inactive once weekly x 12 weeks Vesicare 5 mg tablet RxNorm: 282112 1 Tablet(s) PO QHS 05/23/2014 05/22/2014 Inactive Vesicare 5 mg tablet RxNorm: 235521 1 Tablet(s) PO QHS 05/23/2014 09/15/2014 Inactive trazodone 50 mg tablet RxNorm: 763489 TAKE ONE TABLET BY MOUTH AT BEDTIME 05/13/2014 11/08/2014 Inactive trazodone 50 mg tablet RxNorm: 382494 TAKE ONE TABLET BY MOUTH AT BEDTIME 05/13/2014 11/08/2014 Inactive hydrochlorothiazide 25 mg tablet RxNorm: 568865 1 Tablet(s) PO QAM 04/18/2014 01/12/2015 Inactive Vitamin D2 50,000 unit capsule RxNorm: 576667 TAKE ONE CAPSULE BY MOUTH ONCE WEEKLY FOR 12 WEEKS 04/09/2014 05/14/2014 Inactive trazodone 50 mg tablet RxNorm: 909458 1 Tablet(s) PO QHS 02/22/2014 05/12/2014 Inactive trazodone 50 mg tablet RxNorm: 028708 1 Tablet(s) PO QHS 02/22/2014 02/21/2014 Inactive Vitamin D2 50,000 unit capsule RxNorm: 370724 TAKE ONE CAPSULE BY MOUTH ONCE WEEKLY FOR 12 WEEKS 02/07/2014 03/06/2014 Inactive meloxicam 15 mg tablet RxNorm: 715396 TAKE ONE TABLET BY MOUTH ONCE A DAY 02/07/2014 08/05/2014 Inactive meloxicam 15 mg tablet RxNorm: 582460 TAKE ONE TABLET BY MOUTH ONCE A DAY 02/07/2014 2014 Inactive clotrimazole 1 % topical cream RxNorm: 436733 1 Application TOP BID 12/25/2013 07/16/2015 Inactive Diflucan 150 mg tablet RxNorm: 719366 1 Tablet(s) PO daily 12/25/2013 12/31/2013 Inactive tamsulosin ER 0.4 mg capsule,extended release 24 hr RxNorm: 945128 1 Capsule(s) PO QPM 11/28/2013 06/23/2014 Inactive cyanocobalamin (vit B-12) 1,000 mcg/mL injection solution RxNorm: 235200 1 Milliliter(s) Inj 11/28/2013 12/12/2014 Inactive Vitamin B-12 1,000 mcg/mL injection solution RxNorm: 704557 1 Milliliter(s) Inj monthly 11/21/2013 02/13/2015 Inactive please give syringes for injections Vitamin D2 50,000 unit capsule RxNorm: 265516 1 Capsule(s) PO QW x 12 weeks 11/21/2013 02/06/2014 Inactive [SAVINGS FOR UNINSURED PATIENTS -- to take addtional 2000 units daily Vitamin B-12 1,000 mcg/mL injection solution RxNorm: 412782 1 Milliliter(s) Inj monthly 11/21/2013 11/20/2013 Inactive meloxicam 15 mg tablet RxNorm: 255651 1 Tablet(s) PO daily 11/20/2013 11/19/2013 Inactive [SAVINGS FOR UNINSURED PATIENTS -- BIN:[id number], PCN: [id number], Group: [id number], ID# [id number], Process claim through [employer], for questions: . THIS IS NOT INSURANCE.] meloxicam 15 mg tablet RxNorm: 129526 1 Tablet(s) PO daily 11/20/2013 02/06/2014 Inactive [SAVINGS FOR UNINSURED PATIENTS -- BIN:762722, PCN: [id number], Group: [id number], ID# [id number], Process claim through [employer], for questions: . THIS IS NOT INSURANCE.] meloxicam 15 mg tablet RxNorm: 040453 1 Tablet(s) PO daily 11/20/2013 11/19/2013 Inactive Voltaren 1 % topical gel RxNorm: 221578 4 Application TOP QID apply to back, affected joints four times daily 11/14/2013 11/20/2013 Inactive trazodone 50 mg tablet RxNorm: 675171 1 Tablet(s) PO QHS No Start Date Active Vitamin D2 50,000 unit capsule RxNorm: 666478 1 Capsule(s) PO QW No Start Date 05/26/2014 Inactive once weekly x 12 weeks Zithromax Z-Brian 250 mg tablet RxNorm: 376669 1 Tablet(s) PO UD No Start Date 02/06/2018 Inactive Vitamin D2 50,000 unit capsule RxNorm: 740334 1 Capsule(s) PO QW No Start Date 11/20/2013 Inactive gabapentin 300 mg capsule RxNorm: 946515 1 Capsule(s) PO TID No Start Date 03/28/2017 Inactive Vesicare 10 mg tablet RxNorm: 955214 1 Tablet(s) PO QHS No Start Date 03/14/2016 Inactive Toprol XL 25 mg tablet,extended release RxNorm: 687596 1 Tablet(s) PO daily No Start Date 04/19/2018 Inactive Vitamin D3 5,000 unit tablet RxNorm: 240499 1 Tablet(s) PO daily No Start Date 08/11/2015 Inactive Celebrex 200 mg capsule RxNorm: 710536 1 Capsule(s) PO BID No Start Date 07/19/2016 Inactive Imitrex 50 mg tablet RxNorm: 226830 1 Tablet(s) PO now and may repeat up to four times in 24 hours No Start Date 11/03/2014 Inactive Zofran 4 mg tablet RxNorm: 605133 1 Tablet(s) PO Q8 as needed nausea and vomitting No Start Date 10/15/2015 Inactive ranitidine 150 mg tablet RxNorm: 314610 1 Tablet(s) PO BID No Start Date 02/12/2018 Inactive Phenergan 25 mg tablet RxNorm: 970178 1 Tablet(s) PO now No Start Date 04/15/2015 Inactive Tums oral RxNorm: 481021 oral No Start Date 10/15/2015 Inactive Medication Administered Medication Codes Instructions Start Date Status Kenalog 40 mg/mL suspension for injection RxNorm: 9654127 1Milliliter 09/07/2017 No longer Active cyanocobalamin (vit B-12) 1,000 mcg/mL injection solution RxNorm: 414827 1Milliliter 11/28/2013 No longer Active Immunizations Vaccine [...] recently went to an eye doctor in [place]. Reports that he did have hemorrhaging in his right eye which is getting better. headache 04/18/2014 Pt states he recently went to an eye doctor in [place] shortness of breath 02/21/2014 blisters 12/25/2013 insomnia 11/28/2013 back pain 11/14/2013 Results Observation Observation Code Item Item Code Result Date Vitamin D 25 Oh [id number] VITAMIN D, 25 HYDROXY 66.80 ng/mL 03/14/2018 Cbc With Differential Ord2 WBC 5.63 K/ul 03/14/2018 Cbc With Differential Ord2 RBC 4.53 M/ul 03/14/2018 Cbc With Differential Ord2 HGB 12.9 g/dl 03/14/2018 Cbc With Differential Ord2 Neut% 66.1 % 03/14/2018 Cbc With Differential Ord2 HCT 40.6 % 03/14/2018 Cbc With Differential Ord2 MCV 89.6 fl 03/14/2018 Cbc With Differential Ord2 Lymph% 22.7 % 03/14/2018 Cbc With Differential Ord2 MCH 28.5 pg 03/14/2018 Cbc With Differential Ord2 Castro% 7.6 % 03/14/2018 Cbc With Differential Ord2 [...] 1.28 K/ul 03/14/2018 Cbc With Differential Ord2 Castro ABS# 0.4 K/ul 03/14/2018 Cbc With Differential [...] Lipid Ord30 C/HDL 5.0 Ratio 06/27/2017 %Hba1C Cfo448 % HbA1c 67627- 6 6.2 % 06/27/2017 %Hba1C Aiw733 Gluc Ave 131 mg/dL 06/27/2017 Comp Metabolic Vuq924 NA 140 mEq/L 06/27/2017 Comp Metabolic Fch445 K 4.2 mEq/L 06/27/2017 Comp Metabolic Gvk774 CL 100 mEq/L 06/27/2017 Comp Metabolic Tdg895 CO2 32.0 mEq/L 06/27/2017 Comp Metabolic Xks186 ANION GAP 12 06/27/2017 Comp Metabolic Ipx787 GLUCOSE 118 mg/dL 06/27/2017 Comp Metabolic Jpi198 Creat 1.0 mg/dL 06/27/2017 Comp Metabolic Kxo188 eGFR 82 ml/min/1.73m2 06/27/2017 Comp Metabolic Hbe089 BUN 26 mg/dL 06/27/2017 Comp Metabolic Dwy642 B/C Ratio 27.1 Ratio 06/27/2017 Comp Metabolic Lmh124 CALCIUM 9.6 mg/dL 06/27/2017 Comp Metabolic Lld230 ALK PHOS 46 U/L 06/27/2017 Comp Metabolic Nta311 AST(SGOT) 23 U/L 06/27/2017 Comp Metabolic Qdt812 ALT(SGPT) 31 U/L 06/27/2017 Comp Metabolic Mak002 BILI T 0.5 mg/dL 06/27/2017 Comp Metabolic Xds398 ALBUMIN 4.2 g/dL 06/27/2017 Comp Metabolic Dru982 TPRO 6.6 g/dL 06/27/2017 Comp Metabolic Yvq258 GLOB 2.4 g/dL 06/27/2017 Comp Metabolic Enm145 A/G Ratio 1.7 Ratio 06/27/2017 Comp Metabolic Fsh802 Osmo 285 mOsmo 06/27/2017 Cbc With Differential [...] 29.0 pg 10/20/2016 Cbc With Differential Ord2 Castro% 9.0 % 10/20/2016 Cbc With Differential Ord2 [...] 1.33 K/ul 10/20/2016 Cbc With Differential Ord2 Castro ABS# 0.4 K/ul 10/20/2016 Cbc With Differential Ord2 Eos ABS# 0.2 K/ul 10/20/2016 Cbc With Differential Ord2 Baso ABS# 0.0 K/ul 10/20/2016 Comp Metabolic Tin299 NA 143 mEq/L 10/20/2016 Comp Metabolic Due770 K 4.6 mEq/L 10/20/2016 Comp Metabolic Dpw090 CL 104 mEq/L 10/20/2016 Comp Metabolic Hle651 CO2 31.0 mEq/L 10/20/2016 Comp Metabolic Dms437 ANION GAP 13 10/20/2016 Comp Metabolic Dvl155 GLUCOSE 117 mg/dL 10/20/2016 Comp Metabolic Nqs968 Creat 1.1 mg/dL 10/20/2016 Comp Metabolic Zbn029 eGFR 74 ml/min/1.73m2 10/20/2016 Comp Metabolic Wwk811 BUN 27 mg/dL 10/20/2016 Comp Metabolic Swt967 B/C Ratio 25.7 Ratio 10/20/2016 Comp Metabolic Cbw667 CALCIUM 9.3 mg/dL 10/20/2016 Comp Metabolic Eet847 ALK PHOS 47 U/L 10/20/2016 Comp Metabolic Atr115 AST(SGOT) 18 U/L 10/20/2016 Comp Metabolic Qag463 ALT(SGPT) 22 U/L 10/20/2016 Comp Metabolic Njm202 BILI T 0.5 mg/dL 10/20/2016 Comp Metabolic Cgc455 ALBUMIN 3.9 g/dL 10/20/2016 Comp Metabolic Xfd009 TPRO 6.5 g/dL 10/20/2016 Comp Metabolic Ras435 GLOB 2.6 g/dL 10/20/2016 Comp Metabolic Iun140 A/G Ratio 1.5 Ratio 10/20/2016 Comp Metabolic Yag966 Osmo 291 mOsmo 10/20/2016 Tsh Ord6 hTSH II 1.56 uIU/mL 10/20/2016 Lipid Ord30 CHOL 153 mg/dL 10/20/2016 Lipid Ord30 HDL 34.0 mg/dl 10/20/2016 Lipid Ord30 TRIG 123 mg/dL 10/20/2016 Lipid Ord30 LDL 94 mg/dL 10/20/2016 Lipid Ord30 C/HDL 4.5 Ratio 10/20/2016 B12 Dmt466 B12 544.00 pg/ml 10/20/2016 Comp Metabolic Tsg729 NA 138 mEq/L 05/13/2016 Comp Metabolic Ina575 K 4.2 mEq/L 05/13/2016 Comp Metabolic Gqd237 CL 102 mEq/L 05/13/2016 Comp Metabolic Wpt431 CO2 30.0 mEq/L 05/13/2016 Comp Metabolic Ybi923 ANION GAP 10 05/13/2016 Comp Metabolic Kqu531 GLUCOSE 113 mg/dL 05/13/2016 Comp Metabolic Cqy022 Creat 1.0 mg/dL 05/13/2016 Comp Metabolic Ecy927 eGFR 77 ml/min/1.73m2 05/13/2016 Comp Metabolic Frm845 BUN 26 mg/dL 05/13/2016 Comp Metabolic Mdt620 B/C Ratio 25.5 Ratio 05/13/2016 Comp Metabolic Ksa885 CALCIUM 9.7 mg/dL 05/13/2016 Comp Metabolic Hli078 ALK PHOS 51 U/L 05/13/2016 Comp Metabolic Ngg852 AST(SGOT) 17 U/L 05/13/2016 Comp Metabolic Utm399 ALT(SGPT) 20 U/L 05/13/2016 Comp Metabolic Qmh939 BILI T 0.6 mg/dL 05/13/2016 Comp Metabolic Qac538 ALBUMIN 4.0 g/dL 05/13/2016 Comp Metabolic Brw903 TPRO 6.6 g/dL 05/13/2016 Comp Metabolic Run779 GLOB 2.6 g/dL 05/13/2016 Comp Metabolic Sel945 A/G Ratio 1.6 Ratio 05/13/2016 Comp Metabolic Wyx602 Osmo 281 mOsmo 05/13/2016 Lipid Ord30 CHOL [...] 39.5 % 02/11/2016 Cbc With Differential Ord2 MCV 89.0 fl 02/11/2016 Cbc With Differential Ord2 Lymph% 25.3 % 02/11/2016 Cbc With Differential Ord2 MCH 29.3 pg 02/11/2016 Cbc With Differential Ord2 Castro% 7.7 % 02/11/2016 Cbc With Differential Ord2 [...] 1.18 K/ul 02/11/2016 Cbc With Differential Ord2 Castro ABS# 0.4 K/ul 02/11/2016 Cbc With Differential Ord2 Eos ABS# 0.1 K/ul 02/11/2016 Cbc With Differential Ord2 Baso ABS# 0.0 K/ul 02/11/2016 Comp Metabolic Mtx850 NA 138 mEq/L 02/11/2016 Comp Metabolic Jsv420 K 4.0 mEq/L 02/11/2016 Comp Metabolic Bff868 CL 97 mEq/L 02/11/2016 Comp Metabolic Lyk594 CO2 32.0 mEq/L 02/11/2016 Comp Metabolic Gbx254 ANION GAP 13 02/11/2016 Comp Metabolic Fds218 GLUCOSE 117 mg/dL 02/11/2016 Comp Metabolic Mkk079 Creat 1.0 mg/dL 02/11/2016 Comp Metabolic Miy440 eGFR 81 ml/min/1.73m2 02/11/2016 Comp Metabolic Opk901 BUN 21 mg/dL 02/11/2016 Comp Metabolic Pny586 B/C Ratio 21.4 Ratio 02/11/2016 Comp Metabolic Qte361 CALCIUM 9.2 mg/dL 02/11/2016 Comp Metabolic Htx250 ALK PHOS 48 U/L 02/11/2016 Comp Metabolic Ksm924 AST(SGOT) 18 U/L 02/11/2016 Comp Metabolic Ejb442 ALT(SGPT) 22 U/L 02/11/2016 Comp Metabolic Knf576 BILI T 0.5 mg/dL 02/11/2016 Comp Metabolic Deo118 ALBUMIN 3.9 g/dL 02/11/2016 Comp Metabolic Meu624 TPRO 6.3 g/dL 02/11/2016 Comp Metabolic Ilz085 GLOB 2.5 g/dL 02/11/2016 Comp Metabolic Yzg805 A/G Ratio 1.6 Ratio 02/11/2016 Comp Metabolic Bre164 Osmo 280 mOsmo 02/11/2016 Lipid Ord30 CHOL 163 mg/dL 02/11/2016 Lipid Ord30 HDL 35.0 mg/dl 02/11/2016 Lipid Ord30 TRIG 200 mg/dL 02/11/2016 Lipid Ord30 LDL 88 mg/dL 02/11/2016 Lipid Ord30 C/HDL 4.7 Ratio 02/11/2016 %Hba1C Wty416 % HbA1c 95967- 6 6.5 % 02/11/2016 %Hba1C Uyj224 Gluc Ave 140 mg/dL 02/11/2016 Tsh Ord6 hTSH II 2.07 uIU/mL 02/11/2016 B12 Bdv355 B12 563.00 pg/ml 02/11/2016 Culture Urine [id number] URINE CULTURE SEE NOTES 02/10/2016 Culture Urine [id number] Continued Results 02/10/2016 Urine Culture Ucult Complete [...] 11/04/2015 Urinalysis Ord28 U-Yeast NEGATIVE 11/04/2015 %Hba1C Rvs596 % HbA1c 27179- 6 6.4 % 04/16/2015 %Hba1C Qaw571 Gluc Ave 137 mg/dL 04/16/2015 Tsh Ord6 hTSH II 3.33 uIU/mL 02/07/2015 Comp Metabolic Inu215 NA 136 mEq/L 02/07/2015 Comp Metabolic Mgo972 K 3.9 mEq/L 02/07/2015 Comp Metabolic Hin943 CL 98 mEq/L 02/07/2015 Comp Metabolic Zze685 CO2 31.0 mEq/L 02/07/2015 Comp Metabolic Zrk472 ANION GAP 11 02/07/2015 Comp Metabolic Yjy397 GLUCOSE 139 mg/dL 02/07/2015 Comp Metabolic Diu720 Creat 0.9 mg/dL 02/07/2015 Comp Metabolic Ntd592 eGFR 87 ml/min/1.73m2 02/07/2015 Comp Metabolic Zlj039 BUN 20 mg/dL 02/07/2015 Comp Metabolic Ukn738 B/C Ratio 21.7 Ratio 02/07/2015 Comp Metabolic Epx805 CALCIUM 9.7 mg/dL 02/07/2015 Comp Metabolic Fwl604 ALK PHOS 55 U/L 02/07/2015 Comp Metabolic Zlx775 AST(SGOT) 20 U/L 02/07/2015 Comp Metabolic Uyf044 ALT(SGPT) 27 U/L 02/07/2015 Comp Metabolic Nbg857 BILI T 0.5 mg/dL 02/07/2015 Comp Metabolic Swg898 ALBUMIN 4.3 g/dL 02/07/2015 Comp Metabolic Ztq915 TPRO 6.9 g/dL 02/07/2015 Comp Metabolic Ete867 GLOB 2.6 g/dL 02/07/2015 Comp Metabolic Qfz920 A/G Ratio 1.7 Ratio 02/07/2015 Comp Metabolic Mwa068 Osmo 277 mOsmo 02/07/2015 Cbc With Differential [...] Ord2 RDW 14.8 % 02/07/2015 A1C HPLC [id number] A1C HPLC 02809-6 6.0 % 05/23/2014 VIT B 12 [id number] VIT B 12 479 PG/ML 05/23/2014 VIT D TOTL [id number] VIT D TOTL 29 NG/ML 05/23/2014 Review [...] diminished 02/08/2018 None Full Exam - General 1995 Respiratory auscultation Lower lung field: expiratory wheezes 02/08/2018 None Full Exam - General 1995 Respiratory respiratory effort/rhythm Overall: no retractions 02/08/2018 None Full Exam - General 1995 Respiratory respiratory effort/rhythm Overall: normal rate 02/08/2018 None Full Exam - General 1994 Cardiovascular auscultation of heart Overall: regular rate 02/08/2018 None Full Exam - General 1995 Lymphatic neck nodes Overall: anterior cervical chain [...] nourished 06/07/2017 None Full Exam - General 1995 Eyes conjunctiva/eyelids Overall: conjunctiva clear 06/07/2017 None [...] 4: G0439 12/27/2017 THER/PROPH/DIAG INJ SC/IM CPT-4: 46142 09/07/2017 TRIAMCINOLONE ACET INJ NOS CPT-4: J3301 09/07/2017 ROUTINE VENIPUNCTURE CPT- 4: 56936 05/23/2014 THER/PROPH/DIAG INJ SC/IM CPT-4: 72696 11/28/2013 VITAMIN B12 INJECTION CPT- 4: J3420 11/28/2013 Vital Signs Date Vital 04/20/2018 Blood Pressure 1: 126/74 Code: 8480-6 BMI: 36.6 Code: 37949-6 Heart Rate 1: 60 bpm Height: 6' SpO2: 94% Weight: 270 lbs 03/21/2018 Blood Pressure 1: 138/74 Code: 8480-6 BMI: 36.8 Code: 64837-7 Heart Rate 1: 81 bpm Height: 6' SpO2: 98% Weight: 271 lbs 02/08/2018 Blood Pressure 1: 132/74 Code: 8480-6 BMI: 37.0 Code: 37981-8 Heart Rate 1: 82 bpm Height: 6' SpO2: 97% Weight: 273 lbs 12/27/2017 Blood Pressure 1: 148/78 Code: 8480-6 BMI: 36.3 Code: 88701-9 Heart Rate 1: 78 bpm Height: 6' SpO2: 93% Waist Measure (cm): 117 cm Weight: 268 lbs 12/06/2017 Blood Pressure 1: 122/70 Code: 8480-6 BMI: 36.6 Code: 78209-0 Heart Rate 1: 76 bpm Height: 6' SpO2: 93% Weight: 270 lbs 11/01/2017 BMI: 36.9 Code: 23904-0 Height: 6' Weight: 272 lbs 09/07/2017 Blood Pressure 1: 140/78 Code: 8480-6 BMI: 35.8 Code: 34493-9 Heart Rate 1: 76 bpm Height: 6' SpO2: 98% Weight: 264 lbs 06/07/2017 Blood Pressure 1: 138/86 Code: 8480-6 BMI: 36.3 Code: 72341-7 Heart Rate 1: 66 bpm Height: 6' SpO2: 95% Weight: 268 lbs 05/19/2017 Blood Pressure 1: 152/84 Code: 8480-6 BMI: 36.8 Code: 93152-7 Heart Rate 1: 70 bpm Height: 6' SpO2: 93% Weight: 271 lbs 05/09/2017 Blood Pressure 1: 138/76 Code: 8480-6 BMI: 36.6 Code: 11659-9 Heart Rate 1: 79 bpm Height: 6' SpO2: 93% Weight: 270 lbs 04/25/2017 Blood Pressure 1: 150/80 Code: 8480-6 Heart Rate 1: 58 bpm Height: SpO2: 94% Weight: 2017 Blood Pressure 1: 138/80 Code: 8480-6 BMI: 36.5 Code: 90827-5 Heart Rate 1: 76 bpm Height: 6' SpO2: 96% Weight: 269 lbs 03/29/2017 Blood Pressure 1: 118/68 Code: 8480-6 BMI: 36.9 Code: 22401-8 Heart Rate 1: 61 bpm Height: 6' SpO2: 95% Weight: 272 lbs 03/17/2017 Blood Pressure 1: 140/78 Code: 8480-6 BMI: 36.8 Code: 59494-6 Heart Rate 1: 91 bpm Height: 6' SpO2: 93% Weight: 271 lbs 03/08/2017 Blood Pressure 1: 152/84 Code: 8480-6 BMI: 36.8 Code: 91286-6 Heart Rate 1: 72 bpm Height: 6' SpO2: 92% Temperature: 36.6 (C) / 97.8 (F) Weight: 271 lbs 02/17/2017 Blood Pressure 1: 110/64 Code: 8480-6 BMI: 36.5 Code: 09318-8 Heart Rate 1: 62 bpm Height: 6' SpO2: 96% Weight: 269 lbs 01/18/2017 Blood Pressure 1: 140/80 Code: 8480-6 BMI: 36.5 Code: 36684-0 Heart Rate 1: 62 bpm Height: 6' SpO2: 94% Weight: 269 lbs 10/19/2016 Blood Pressure 1: 120/80 Code: 8480-6 BMI: 35.9 Code: 34011-1 Heart Rate 1: 64 bpm Height: 6' SpO2: 97% Weight: 265 lbs 08/17/2016 Blood Pressure 1: 112/76 Code: 8480-6 BMI: 36.1 Code: 26370-3 Heart Rate 1: 65 bpm Height: 6' SpO2: 97% Weight: 266 lbs 07/20/2016 Blood Pressure 1: 126/78 Code: 8480-6 BMI: 35.5 Code: 40115-3 Heart Rate 1: 60 bpm Height: 6' SpO2: 95% Weight: 262 lbs 04/19/2016 Blood Pressure 1: 132/78 Code: 8480-6 BMI: 35.1 Code: 91514-5 Heart Rate 1: 65 bpm Height: 6' SpO2: 98% Weight: 259 lbs 01/19/2016 Blood Pressure 1: 140/64 Code: 8480-6 BMI: 34.4 Code: 62484-4 Heart Rate 1: 61 bpm Height: 6' SpO2: 97% Weight: 254 lbs 10/16/2015 Blood Pressure 1: 108/66 Code: 8480-6 BMI: 35.3 Code: 23424-4 Heart Rate 1: 65 bpm Height: 6' SpO2: 96% Weight: 260 lbs 07/17/2015 Blood Pressure 1: 136/74 Code: 8480-6 BMI: 35.8 Code: 70729-8 Heart Rate 1: 59 bpm Height: 6' SpO2: 97% Weight: 263 lbs 13 07/03/2015 Weight: 265 lbs 04/16/2015 Blood Pressure 1: 130/82 Code: 8480-6 BMI: 36.1 Code: 66755-9 Heart Rate 1: 7694 bpm Height: 6' SpO2: 94% Weight: 266 lbs 02/19/2015 Blood Pressure 1: 160/90 Code: 8480-6 BMI: 35.8 Code: 44940-2 Heart Rate 1: 78 bpm Height: 6' SpO2: 94% Weight: 264 lbs 11/20/2014 Blood Pressure 1: 140/96 Code: 8480-6 BMI: 34.6 Code: 68378-8 Heart Rate 1: 92 bpm Height: 6' SpO2: 95% Weight: 255 lbs 11/05/2014 Blood Pressure 1: 132/70 Code: 8480-6 BMI: 34.6 Code: 61967-0 Heart Rate 1: 96 bpm Height: 6' SpO2: 98% Weight: 255 lbs 09/19/2014 Blood Pressure 1: 152/86 Code: 8480-6 BMI: 35.8 Code: 32893-3 Heart Rate 1: 82 bpm Height: 6' SpO2: 95% Weight: 264 lbs 07/24/2014 Blood Pressure 1: 142/82 Code: 8480-6 BMI: 34.7 Code: 06067-0 Heart Rate 1: 72 bpm Height: 6' Weight: 256 lbs 05/23/2014 Blood Pressure 1: 150/82 Code: 8480-6 BMI: 33.4 Code: 67249-8 Heart Rate 1: 68 bpm Height: 6' Weight: 246 lbs 04/18/2014 Blood Pressure 1: 132/84 Code: 8480-6 BMI: 33.2 Code: 94100-1 Heart Rate 1: 80 bpm Height: 6' Weight: 245 lbs 02/21/2014 Blood Pressure 1: 138/82 Code: 8480-6 BMI: 32.4 Code: 82307-9 Heart Rate 1: 85 bpm Height: 6' SpO2: 98% Weight: 239 lbs 12/25/2013 Blood Pressure 1: 146/80 Code: 8480-6 BMI: 30.5 Code: 87942-5 Heart Rate 1: 100 bpm Height: 6' Weight: 225 lbs 11/28/2013 Blood Pressure 1: 120/64 Code: 8480-6 BMI: 30.4 Code: 69825-8 Heart Rate 1: 68 bpm Height: 6' Weight: 224 lbs 11/14/2013 Blood Pressure 1: 124/80 Code: 8480-6 BMI: 30.0 Code: 65461-3 Heart Rate 1: 76 bpm Height: 6' [...] Maxitrol and Polytrim seeing eye dr in [place]. Reports eye still feels irritated. 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 PATIENT, LEVEL III Diagnosis: Acute bronchitis due to other specified organisms[ICD10: J20.8] [facility] CPT-4: 21675 02/08/2018 [id number] 60388 EST. 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 PATIENT, LEVEL III Diagnosis: Essential (primary) hypertension[ICD10: I10] Diagnosis: Localized edema[ICD10: R60.0] Diagnosis: Cellulitis of left lower limb[ICD10: L03.116] Quyen Long MD, [facility] CPT-4: 92828 06/07/2017 ([id number]) 27719 EST. 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 PATIENT, LEVEL II Diagnosis: Rash and other nonspecific skin eruption[ICD10: R21] Glory Long MD, [facility] CPT-4: 72543 05/09/2017 ([id number]) 60030 EST. PATIENT, LEVEL II Diagnosis: Rash and other nonspecific skin eruption[ICD10: R21] Glory Long MD, [facility] CPT-4: 24253 04/25/2017 ([id number]) 54887 EST. PATIENT, LEVEL III Diagnosis: Cellulitis of left lower limb[ICD10: L03.116] Diagnosis: Rash and other nonspecific skin eruption[ICD10: R21] Glory Long MD, [facility] CPT-4: 94897 2017 ([id number]) 61399 EST. PATIENT, LEVEL III Diagnosis: Cellulitis of left lower limb[ICD10: L03.116] Diagnosis: Rash and other nonspecific skin eruption[ICD10: R21] Glory Long MD, [facility] CPT-4: 22648 03/29/2017 42906 EST. PATIENT, LEVEL IV Diagnosis: Cellulitis of left lower limb[ICD10: L03.116] Antoinette Long MD, [facility] CPT-4: 87047 03/17/2017 ([id number]) 41257 EST. PATIENT, LEVEL III Diagnosis: Rash and other nonspecific skin eruption[ICD10: R21] Glory Long MD, [facility] CPT-4: 90605 03/08/2017 77270 EST. PATIENT, LEVEL IV Diagnosis: Essential (primary) hypertension[ICD10: I10] Diagnosis: Muscle weakness (generalized)[ICD10: M62.81] Diagnosis: Body mass index (BMI) 36.0-36.9, adult[ICD10: Z68.36] Diagnosis: Family history of ischemic heart disease and other diseases of the circulatory system[ICD10: Z82.49] Antoinette Long MD, [facility] CPT-4: 23877 02/17/2017 ([id number]) 44203 EST. PATIENT, LEVEL IV Diagnosis: Essential (primary) hypertension[ICD10: I10] Diagnosis: Muscle weakness (generalized)[ICD10: M62.81] Quyen Long MD, [facility] CPT-4: 63210 01/18/2017 ([id number]) 38601 EST. 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 PATIENT, LEVEL III Diagnosis: Pain in left shoulder[ICD10: M25.512] Diagnosis: Rash and other nonspecific skin eruption[ICD10: R21] Glory Long MD, [facility] CPT-4: 85733 08/17/2016 ([id number]) 38789 EST. PATIENT, LEVEL IV Diagnosis: Essential (primary) hypertension[ICD10: I10] Diagnosis: Pain in left shoulder[ICD10: M25.512] Quyen Long MD, [facility] CPT-4: 06278 07/20/2016 ([id number]) 08216 EST. 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 PATIENT, LEVEL IV Diagnosis: Essential (primary) hypertension[ICD10: I10] Diagnosis: Other abnormal glucose[ICD10: R73.09] Diagnosis: Gastro-esophageal reflux disease without esophagitis[ICD10: K21.9] Diagnosis: Obesity, unspecified[ICD10: E66.9] Quyen Long MD, [facility] CPT- 4: 32802 04/16/2015 ([id number]) 46082 EST. PATIENT, LEVEL IV Diagnosis: ESSENTIAL HYPERTENSION[ICD9: 401.9] Diagnosis: OBESITY[ICD9: 278.00] Diagnosis: Post-polio limb muscle weakness[ICD9: 728.87] Quyen Long MD, [facility] CPT-4: 78677 02/19/2015 ([id number]) 26106 EST. PATIENT, LEVEL IV Diagnosis: Shingles outbreak[ICD9: 053.9] Diagnosis: ESSENTIAL HYPERTENSION[ICD9: 401.9] Diagnosis: Earache[ICD9: 388.70] Quyen Long MD, [facility] CPT-4: 20579 11/20/2014 ([id number]) 61405 EST. PATIENT, LEVEL III Diagnosis: Shingles outbreak[ICD9: 053.9] Diagnosis: Face pain[ICD9: 784.0] Diagnosis: Pain, eye, right[ICD9: 379.91] Quyen Long MD, [facility] CPT-4: 73958 11/05/2014 ([id number]) 39102 EST. PATIENT, LEVEL V Diagnosis: Post-polio limb muscle weakness[ICD9: 728.87] Diagnosis: Post-polio syndrome[ICD9: 138] Diagnosis: Leg weakness[ICD9: 729.89] Diagnosis: Weakness[ICD9: 780.79] Diagnosis: Foot drop[ICD9: 736.79] Quyen Long MD, [facility] CPT-4: 74571 09/19/2014 ([id number]) 35123 EST. PATIENT, LEVEL IV Diagnosis: ESSENTIAL HYPERTENSION[ICD9: 401.9] Diagnosis: Carotid bruit[ICD9: 785.9] Diagnosis: Seborrheic dermatitis[ICD9: 690.10] Diagnosis: Post-polio syndrome[ICD9: 138] Diagnosis: Vitamin D deficiency[ICD9: 268.9] Quyen Long MD, [facility] CPT- 4: 38458 07/24/2014 ([id number]) 14188 EST. PATIENT, LEVEL IV Diagnosis: Neck pain[ICD9: 723.1] Diagnosis: Post-polio syndrome[ICD9: 138] Diagnosis: Vitamin D deficiency[ICD9: 268.9] Diagnosis: Vitamin B12 deficiency[ICD9: 266.2] Diagnosis: Nocturia[ICD9: 788.43] Diagnosis: Leg weakness[ICD9: 729.89] Diagnosis: Elevated blood sugar[ICD9: 790.29] Glory Long MD, [facility] CPT- 4: 09799 05/23/2014 ([id number]) 46197 EST. PATIENT, LEVEL IV Diagnosis: ESSENTIAL HYPERTENSION[ICD9: 401.9] Diagnosis: HEADACHE[ICD9: 784.0] Diagnosis: EDEMA[ICD9: 782.3] Quyen Long MD, [facility] CPT-4: 63817 04/18/2014 96952 EST. PATIENT, LEVEL IV Diagnosis: Insomnia[ICD9: 780.52] Diagnosis: Post-polio syndrome[ICD9: 138] Diagnosis: Vitamin D deficiency[ICD9: 268.9] Diagnosis: Nocturnal hypoxemia[ICD9: 799.02] Glory Long MD, [facility] CPT- 4: 00214 02/21/2014 ([id number]) 62662 EST. PATIENT, LEVEL III Diagnosis: Tinea pedis[ICD9: 110.4] Diagnosis: Post-polio limb muscle weakness[ICD9: 728.87] Glory Long MD, [facility] CPT-4: 41601 12/25/2013 ([id number]) 44066 EST. PATIENT, LEVEL IV Diagnosis: Insomnia[ICD9: 780.52] Diagnosis: Vitamin B12 deficiency (dietary) anemia[ICD9: 281.1] Diagnosis: VITAMIN D DEFICIENCY[ICD9: 268.9] Diagnosis: Weakness[ICD9: 780.79] Quyen Long MD, [facility] CPT-4: 69177 11/28/2013 ([id number]) OFFICE/OUTPATIENT VISIT NEW Diagnosis: Post-polio limb muscle weakness[ICD9: 728.87] Diagnosis: Post-polio syndrome[ICD9: 138] Diagnosis: Insomnia[ICD9: 780.52] Diagnosis: Arrhythmia[ICD9: 427.9] [facility] CPT-4: 75568 11/14/2013 Plan of Care Planned Activity Notes [...] Appointment: Quyen Long WPtel: [phone] [facility] (15 min) Moderate 04/20/2018 Patient Education: Patient Medication Summary Completed 04/20/2018 Patient Education: Hypertension Completed 04/20/2018 Appointment: Quyen Long WPtel: [facility] (15 min) Moderate 04/11/2018 Visit Plan: Post polio syndrome -right leg weakness -patient needs repair and adjustment of his right leg brace that helps with his symptoms of instability and weakness and allows him to ambulate -will send rx to [place] [facility] 03/21/2018 Appointment: Glory Dalton WPtel: [phone] [phone] [place] (15 min) Moderate 03/21/2018 [...] worsen. 02/08/2018 Appointment: Antoinette Arndt WPtel: [phone] [facility] [place] (30 min) Complex 02/08/2018 Patient [...] Summary Completed 12/27/2017 [phone] ([facility] Moderate 12/08/2017 Visit Plan: [...] Wilson's office to get an appt with [facility] for shoulder injection. 12/06/2017 Visit Plan: Hypertension [...] Wilson's office to get an appt with [facility] for shoulder injection. 12/06/2017 Appointment: [phone] [place] (15 min) Moderate 12/06/2017 Patient [...] weight check. 09/07/2017 Appointment: Quyen Long WPtel: [address] [place], [place] [address] [place] (15 min) Moderate 09/07/2017 Patient Education: Patient [...] lower leg. 06/07/2017 Appointment: [phone] (15 min) Moderate 06/07/2017 Patient Education: Patient [...] recommended. 05/19/2017 Appointment: Quyen Long WPtel[facility] ([facility] min) Moderate 05/19/2017 Patient Education: Patient Medication Summary Completed 05/19/2017 Patient Education: Obesity Completed 05/19/2017 Patient Education: Hypertension Completed 05/19/2017 Visit Plan: Rash-left rbhl-dyrjknfs-birpacdgfe patient to continue using ketoconazole plus betamethasone equal parts and increase to TID-leave foot open to air as much as possible-follow up in 2 weeks, sooner if needed. 05/09/2017 App[facility]ment: [phone] [place] (30 min) Complex 05/09/2017 Patient Education: Patient Medication Summary Completed 05/09/2017 Patient Education: Obesity Completed 05/09/2017 Visit Plan: Rash-left foot-Dr Long in to evaluate rash-instructed patient to start using ketoconazole plus betamethasone equal parts TID -follow up in 2 weeks, sooner if needed. 04/25/2017 Appointment: Glory Dalton WPtel: [phone] (30 min) Complex 04/25/2017 Patient Education: Patient Medication Summary Completed 04/25/2017 Visit Plan: Cellulitis of left foot-no longer draining-no open areas-no excoriation-slightly red-okay to d/c all treatments-keep clean and monitor-call if redness does not resolve Rash-resolved 2017 Appointment: Glory Dalton WPtel: [phone] (30 min) Complex 2017 Patient Education: Patient Medication Summary Completed 2017 Patient Education: Obesity Completed 2017 Visit Plan: Cellulitis-left foot-MSSA xaibharm-slofauusk-plfht air in the evening-continue bactroban ointment twice daily-stop using alcohol on foot-no papertowels or abrasives to foot Xqca-hjqs-yz for betamethasone provided and instructed on use 03/29/2017 Appointment: Glory Dalton WPtel: [address] [place], [place] [phone] (30 min) Complex 03/29/2017 Patient Education: Patient Medication Summary Completed 03/29/2017 Patient Education: Obesity Completed 03/29/2017 Appointment: Glory Dalton WPtel: [address] [place], [place] [phone] (30 min) Complex 03/22/2017 Visit Plan: Cellulitis [...] warmth, discharge. 03/17/2017 Appointment: Antoinette Arndt WPtel: [facility] (30 min) Complex 03/17/2017 Patient Education: Patient [...] break. 01/18/2017 Appointment: [phone] (15 min) Moderate 01/18/2017 Patient Education: [...] weakness. 10/19/2016 Appointment: Quyen Long WPtel: [phone] [facility] (15 min) Moderate 10/19/2016 Patient Education: Patient Medication Summary Completed 10/19/2016 Patient Education: Obesity Completed 10/19/2016 Visit Plan: Left shoulder pain-hospital f/u recent shoulder surgery with Dr Wilson-doing well-sees Dr Wilson this afternoon for suture removal-pain improved Eyax-lcbn-jrqdpsa fungal infection-will treat with ket oconazole -follow up in 2 weeks 08/17/2016 Appointment: Glory Dalton WPtel: [phone] [phone] [place] (30 min) Complex 08/17/2016 [...] when ambulating. 07/20/2016 Appointment: Quyen Long WPtel: [phone] [facility] [place] (15 min) Moderate 07/20/2016 Patient Education: [...] strengthening. 04/19/2016 App[facility]ment: [phone] (15 min) Moderate 04/19/2016 Patient Education: [...] appointment. 01/19/2016 Appointment: Quyen Long [facility]Ptel: [phone] [place] (15 min) Moderate 01/19/2016 Patient Education: Patient Medication Summary Completed 01/19/2016 Patient Education: Obesity Completed 01/19/2016 Patient Education: Hypertension Completed 01/19/2016 Referral: Dr Mccauley Referral Completed 11/11/2015 Care Plan: Referral Order SNOMED-CT : [id number] Pending 11/03/2015 Visit Plan: Hypertension - well [...] need fluoroscopic guidance with injection 10/16/2015 Appointment: Ethan Quyen WPtel: [facility] (15 min) Moderate 10/16/2015 Patient Education: [...] ESME. 11/05/2014 Appointment: [facility]en [facility]el[phone] (15 min) Moderate 11/05/2014 Patient Education: [...] and foot. 09/19/2014 Appointment: Quyen Long WPtel: [address] [place], [place] [address] Follow up 09/19/2014 Patient Education: Patient Medication [...] deficiency - recommended repeat of vitamin d 85362mtdzx weekly x 12 weeks and increase vitamin d to 5000 units daily. 07/24/2014 Appointment: Quyen Long WPtel: [phone] [facility] Follow up 07/24/2014 Patient [...] level 05/23/2014 Appointment: Glory Dalton WPtel: [phone] [phone] Follow up 05/23/2014 Patient Education: Patient Medication Summary Completed 05/23/2014 Patient Education: .Cervicalgia Neck Pain Completed 05/23/2014 Appointment: Quyen Long WPtel: [facility] Follow up 05/22/2014 Visit [...] at home. 04/18/2014 Appointment: Quyen Long WPtel: [phone] [facility] Follow up 04/18/2014 Patient Education: Patient Medication Summary Completed 04/18/2014 Patient Education: Hypertension Completed 04/18/2014 Appointment: [phone] Follow [facility] 02/27/2014 Visit Plan: Insomnia - Pt has been advised to increase the light in the house during the day, and start dimming the lights during the evening hours. Pt has been advised to cut out caffeine after 5pm. Daytime napping worsens night time insomnia. START TRAZODONE AND MONITOR SYMPTOMS. Vitamin D rogehgncnp-rxbehllw-jycvwuyi vitamin D 50,000 units weekly for 12 additional weeks. Hypoxemia-continue night time oxygen 02/21/2014 Appointment: [facility]el[phone] Follow up 02/21/2014 Patient Education: Patient [...] mobic. 11/28/2013 Appointment: [phone] Follow up 11/28/2013 Patient Education: Patient [...] study. 11/14/2013 Appointment: Quyen Long [facility]el[phone] [place] New Patient 11/14/2013 Patient Education: Patient Medication Summary Completed 11/14/2013 Referral: Dr Mccauley Referral Appointment Requested Instructions Comment . Rash-left ttsu-bdigzdbg-yeejomcajn patient to continue using ketoconazole plus betamethasone [...] up in 10 days . Cellulitis-left foot-MSSA zverihti-ewoxscpke-brlue air in the evening-continue bactroban ointment twice daily-stop using alcohol on foot-no papertowels or abrasives to foot Doli-rdzf-zi for betamethasone provided and instructed on use [...] START TRAZODONE AND MONITOR SYMPTOMS. Vitamin D ulqcihqcxp-bzlaedil-ccetehvg vitamin D 50,000 units weekly for 12 [...] deficiency - recommended repeat of vitamin d 45630cctin weekly x 12 weeks and increase vitamin [...] Wilson this afternoon for suture removal-pain improved Vraa-mtex-eeockfi fungal infection-will treat with ketoconazole -follow up [...] him to ambulate -will send rx to [place] [facility]
--- OUTSIDE RECORDS SUMMARY | 2018-11-10 16:47 | XMS REPORT | CCD ---
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 Name Role Phone PP Unavailable CCM Unavailable Summary Purpose Interface Exchange Insurance Providers Payer name Policy type / Coverage type Covered libertarian ID Effective Begin Date Effective End Date WPS Medicare Part B Medicare Part B [id number] 2017 Unknown [facility] Medicare Part B [id number] 2017 Unknown Family history Grandmother Diagnosis Age [...] Description Effective Dates Tobacco history SNOMED CT: 9265645 Former smoker 1.5 pack daily x 45 years 12/27/2017 Marital status Unknown 10/19/2016 Living arrangements Unknown Assisted Living [facility] 04/19/2016 Number of children Unknown 1 son - lives in [place] 11/14/2013 Employment Unknown 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 11/14/[address]: 389254181 Never drinks alcohol 11/14/2013 Has the patient [...] Codes Condition Status Onset Date Resolved Date Foot drop, right foot ICD- 9: 736.79 ICD-10: M21.371 Active 09/07/2017 Unknown Muscle weakness (generalized) ICD-9: 728.87 ICD-10: M62.81 Active 12/25/2013 Unknown 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 Active 02/21/2014 Unknown Acute bronchitis due to other specified organisms ICD-9: 466.0 ICD-10: J20.8 Active 02/08/2018 Unknown Encounter for general adult medical examination with abnormal findings ICD-9: V70.0 ICD-10: Z00.01 Active 12/27/2017 Unknown Essential (primary) hypertension ICD-9: 401.9 ICD-10: I10 Active 04/18/2014 Unknown Pain in left shoulder ICD- 9: 719.41 ICD-10: M25.512 Active 07/16/2015 Unknown Obesity, unspecified ICD- 9: 278.00 ICD-10: [...] Problems Condition Codes Effective Dates Condition Status Foot drop, right foot ICD- 9: 736.79 ICD-10: M21.371 09/07/2017 Active Muscle weakness (generalized) ICD-9: 728.87 ICD-10: M62.81 12/25/2013 Active 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 02/21/2014 Active Acute bronchitis due to other specified organisms ICD-9: 466.0 ICD-10: J20.8 02/08/2018 Active Encounter for general adult medical examination with abnormal findings ICD-9: V70.0 ICD-10: Z00.01 12/27/2017 Active Essential (primary) hypertension ICD-9: 401.9 ICD-10: I10 04/18/2014 Active Pain in left shoulder ICD- 9: 719.41 ICD-10: M25.512 07/16/2015 Active Obesity, unspecified ICD- 9: 278.00 ICD-10: [...] Date Stop Date Status Fill Instructions Vitamin D3 5,000 unit tablet RxNorm: 041302 TAKE ONE TABLET BY MOUTH DAILY 04/05/2018 02/28/2019 Active trazodone 50 mg tablet RxNorm: 797272 TAKE ONE TABLET BY MOUTH AT BEDTIME 02/27/2018 07/26/2018 Active ranitidine 150 mg tablet RxNorm: 944841 1 Tablet(s) PO BID 02/13/2018 02/07/2019 Active hydrochlorothiazide 25 mg tablet RxNorm: 315583 TAKE ONE TABLET BY MOUTH DAILY 02/13/2018 11/09/2018 Active albuterol sulfate 2.5 mg/3 mL (0.083 %) solution for nebulization RxNorm: 126553 3 Milliliter(s) INH UD 02/08/2018 No Stop Date Active please deliver all of his prescriptions thank you cefdinir 300 mg capsule RxNorm: 055241 1 Capsule(s) PO BID 02/08/2018 02/17/2018 Inactive prednisone 20 mg tablet RxNorm: 722813 2 Tablet(s) PO daily 02/08/2018 02/12/2018 Inactive fluticasone 50 mcg/actuation nasal spray,suspension RxNorm: 0147761 1 [place] NASAL BID 02/07/2018 06/06/2018 Active fluticasone 50 mcg/actuation nasal spray,suspension RxNorm: 7860126 1 [place] NASAL BID 02/07/2018 02/06/2018 Inactive Zithromax Z-Brian 250 mg tablet RxNorm: 477163 1 Tablet(s) PO UD 02/07/2018 03/14/2018 Inactive zpack as directed tamsulosin 0.4 mg capsule RxNorm: 544591 TAKE ONE CAPSULE BY MOUTH EVERY EVENING 01/13/2018 06/11/2018 Active cetirizine 10 mg tablet RxNorm: 2560995 TAKE ONE TABLET BY MOUTH EVERY NIGHT AT BEDTIME 01/02/2018 04/01/2018 Inactive Vitamin D3 5,000 unit tablet RxNorm: 361754 TAKE ONE TABLET BY MOUTH DAILY 01/02/2018 04/04/2018 Inactive cetirizine 10 mg tablet RxNorm: 8916645 1 Tablet(s) PO QHS 12/26/2017 01/01/2018 Inactive cetirizine 10 mg tablet RxNorm: 3963070 1 Tablet(s) PO QHS 12/26/2017 12/25/2017 Inactive losartan 50 mg tablet RxNorm: 949962 TAKE ONE TABLET BY MOUTH DAILY (STARTING 09-09-2017) 09/29/2017 03/27/2018 Inactive Request already responded to by other means (e.g. phone or fax) losartan 50 mg tablet RxNorm: 160703 1 Tablet(s) PO daily 09/27/2017 09/26/2017 Inactive losartan 50 mg tablet RxNorm: 140425 1 Tablet(s) PO daily 09/27/2017 09/28/2017 Inactive Bactrim DS 800 mg-160 mg tablet RxNorm: 261994 1 Tablet(s) PO BID 09/13/2017 09/19/2017 Inactive Kenalog 40 mg/mL suspension for injection RxNorm: 4833943 1 Milliliter(s) Inj 09/07/2017 09/07/2017 Inactive trazodone 50 mg tablet RxNorm: 047742 TAKE ONE TABLET BY MOUTH AT BEDTIME 08/16/2017 02/11/2018 Inactive gabapentin 300 mg capsule RxNorm: 764035 1 Capsule(s) PO BID 08/03/2017 01/29/2018 Inactive Vitamin D3 5,000 unit tablet RxNorm: 573137 TAKE ONE TABLET BY MOUTH DAILY 08/01/2017 12/28/2017 Inactive ketoconazole 2 % topical cream RxNorm: 211063 APPLY TO AFFECTED AREA(S) TWO TIMES A DAY 05/31/2017 06/29/2017 Inactive hydrochlorothiazide 25 mg tablet RxNorm: 479897 TAKE ONE TABLET BY MOUTH DAILY 05/16/2017 02/09/2018 Inactive lisinopril 20 mg tablet RxNorm: 034382 TAKE ONE TABLET BY MOUTH DAILY 05/16/2017 09/06/2017 Inactive ketoconazole 2 % topical cream RxNorm: 970227 1 Application TOP BID 03/29/2017 04/11/2017 Inactive apply to faice-deliver to [facility] please betamethasone dipropionate 0.05 % topical ointment RxNorm: 196598 1 Application TOP BID 03/29/2017 04/11/2017 Inactive apply to arm/chests for itching gabapentin 300 mg capsule RxNorm: 329324 1 Capsule(s) PO BID 03/29/2017 08/02/2017 Inactive trazodone 50 mg tablet RxNorm: 764807 TAKE ONE TABLET BY MOUTH AT BEDTIME 03/28/2017 08/15/2017 Inactive Vesicare 10 mg tablet RxNorm: 421081 TAKE ONE TABLET BY MOUTH EVERY NIGHT AT BEDTIME 03/21/2017 12/26/2017 Inactive Vesicare 10 mg tablet RxNorm: 054815 TAKE ONE TABLET BY MOUTH EVERY NIGHT AT BEDTIME 03/21/2017 06/06/2017 Inactive doxycycline hyclate 100 mg capsule RxNorm: 7469814 1 Capsule(s) PO BID 03/18/2017 03/27/2017 Inactive mupirocin 2 % topical ointment RxNorm: 548293 1 Application TOP BID 03/17/2017 No Stop Date Active doxycycline hyclate 100 mg tablet RxNorm: 274972 1 Tablet(s) PO BID 03/09/2017 03/15/2017 Inactive Take probiotic BID while on ABT doxycycline hyclate 100 mg tablet RxNorm: 372513 1 Tablet(s) PO BID 03/09/2017 03/08/2017 Inactive Take probiotic BID while on ABT meloxicam 15 mg tablet RxNorm: 309194 TAKE ONE TABLET BY MOUTH DAILY 02/10/2017 12/06/2017 Inactive Vitamin D3 5,000 unit tablet RxNorm: 362958 TAKE ONE TABLET BY MOUTH DAILY 02/08/2017 07/31/2017 Inactive Vitamin B-12 1,000 mcg/mL injection solution RxNorm: 187627 INJECT 1ML MONTHLY 01/24/2017 07/22/2017 Inactive lisinopril 20 mg tablet RxNorm: 386565 TAKE ONE TABLET BY MOUTH DAILY 12/13/2016 04/11/2017 Inactive trazodone 50 mg tablet RxNorm: 272134 TAKE ONE TABLET BY MOUTH AT BEDTIME 09/24/2016 03/22/2017 Inactive Vitamin D3 5,000 unit tablet RxNorm: 441170 TAKE ONE TABLET BY MOUTH DAILY 09/20/2016 02/07/2017 Inactive lisinopril 20 mg tablet RxNorm: 908864 TAKE ONE TABLET BY MOUTH DAILY 09/13/2016 12/12/2016 Inactive ketoconazole 2 % topical cream RxNorm: 723679 1 Application TOP BID 08/17/2016 08/30/2016 Inactive deliver to [facility] please Pepcid 20 mg tablet RxNorm: 859374 TAKE ONE TABLET BY MOUTH TWICE A DAY 07/12/2016 12/26/2017 Inactive omega-3 acid ethyl esters 1 gram capsule RxNorm: 773017 3 Capsule(s) PO daily 06/18/2016 12/14/2016 Inactive omega-3 acid ethyl esters 1 gram capsule RxNorm: 951798 3 Capsule(s) PO daily 06/18/2016 06/17/2016 Inactive trazodone 50 mg tablet RxNorm: 207993 TAKE ONE TABLET BY MOUTH AT BEDTIME 06/08/2016 08/06/2016 Inactive tamsulosin 0.4 mg capsule RxNorm: 239116 Capsule(s) TAKE ONE CAPSULE BY MOUTH EVERY EVENING 06/04/2016 12/30/2016 Inactive hydrochlorothiazide 25 mg tablet RxNorm: 085562 TAKE ONE TABLET BY MOUTH DAILY 05/10/2016 05/09/2016 Inactive hydrochlorothiazide 25 mg tablet RxNorm: 845853 TAKE ONE TABLET BY MOUTH DAILY 05/10/2016 02/12/2018 Inactive Pepcid 20 mg tablet RxNorm: 496096 1 Tablet(s) PO BID 03/18/2016 03/17/2016 Inactive Pepcid 20 mg tablet RxNorm: 909497 1 Tablet(s) PO BID 03/18/2016 07/11/2016 Inactive lisinopril 20 mg tablet RxNorm: 358960 TAKE ONE TABLET BY MOUTH DAILY 03/18/2016 08/14/2016 Inactive Vitamin D3 5,000 unit tablet RxNorm: 628819 Tablet(s) TAKE ONE TABLET BY MOUTH DAILY 03/18/2016 09/13/2016 Inactive trazodone 50 mg tablet RxNorm: 058967 TAKE ONE TABLET BY MOUTH AT BEDTIME 03/15/2016 06/07/2016 Inactive Vesicare 10 mg tablet RxNorm: 566022 1 Tablet(s) PO QHS 03/15/2016 02/07/2017 Inactive meloxicam 15 mg tablet RxNorm: 861059 TAKE ONE TABLET BY MOUTH DAILY 03/01/2016 01/24/2017 Inactive Bactrim DS 800 mg-160 mg tablet RxNorm: 170748 1 Tablet(s) PO BID 02/10/2016 02/09/2016 Inactive Bactrim DS 800 mg-160 mg tablet RxNorm: 967450 1 Tablet(s) PO BID 02/10/2016 02/16/2016 Inactive Cipro 500 mg tablet RxNorm: 181953 1 Tablet(s) PO BID 02/06/2016 02/09/2016 Inactive Cipro 500 mg tablet RxNorm: 303239 1 Tablet(s) PO BID 02/06/2016 02/05/2016 Inactive Pennsaid 20 mg/gram/actuation (2 %) topical soln in metered- dose pump RxNorm: 1272419 2 pumps TOP BID 01/19/2016 04/19/2016 Inactive tamsulosin 0.4 mg capsule RxNorm: 402278 TAKE ONE CAPSULE BY MOUTH EVERY EVENING 01/12/2016 06/03/2016 Inactive cyanocobalamin (vit B-12) 1,000 mcg/mL injection solution RxNorm: 642912 INJECT 1 ML INTRAMUSCULARLY MONTHLY 01/01/2016 10/26/2016 Inactive Request already responded to by other means (e.g. phone or fax) Vitamin B-12 1,000 mcg/mL injection solution RxNorm: 096179 1 Milliliter(s) Inj monthly 12/24/2015 04/19/2016 Inactive please give syringes for injections Vitamin D3 5,000 unit tablet RxNorm: 083228 TAKE ONE TABLET BY MOUTH DAILY 12/08/2015 03/06/2016 Inactive pantoprazole 40 mg tablet,delayed release RxNorm: 173044 TAKE ONE TABLET BY MOUTH DAILY 12/08/2015 03/17/2016 Inactive trazodone 50 mg tablet RxNorm: 216434 TAKE ONE TABLET BY MOUTH AT BEDTIME 11/10/2015 03/08/2016 Inactive lisinopril 20 mg tablet RxNorm: 295684 TAKE ONE TABLET BY MOUTH DAILY 09/08/2015 03/05/2016 Inactive Vitamin D3 5,000 unit tablet RxNorm: 688581 1 Tablet(s) PO daily 08/12/2015 12/07/2015 Inactive pantoprazole 40 mg tablet,delayed release RxNorm: 168585 1 Tablet(s) PO daily 08/12/2015 12/07/2015 Inactive tamsulosin 0.4 mg capsule RxNorm: 584090 TAKE ONE CAPSULE BY MOUTH EVERY EVENING 07/21/2015 12/17/2015 Inactive trazodone 50 mg tablet RxNorm: 790397 TAKE ONE TABLET BY MOUTH AT BEDTIME 05/09/2015 10/05/2015 Inactive hydrochlorothiazide 25 mg tablet RxNorm: 556795 1 Tablet(s) PO QAM 04/30/2015 04/29/2015 Inactive hydrochlorothiazide 25 mg tablet RxNorm: 972849 TAKE ONE TABLET BY MOUTH DAILY 04/30/2015 02/12/2018 Inactive pantoprazole 40 mg tablet,delayed release RxNorm: 962756 1 Tablet(s) PO daily 04/16/2015 08/11/2015 Inactive meloxicam 15 mg tablet RxNorm: 287832 TAKE ONE TABLET BY MOUTH DAILY 03/03/2015 02/25/2016 Inactive lisinopril 20 mg tablet RxNorm: 653737 1 Tablet(s) PO daily 02/19/2015 09/07/2015 Inactive tamsulosin 0.4 mg capsule RxNorm: 178173 TAKE ONE CAPSULE BY MOUTH EVERY EVENING 01/20/2015 07/18/2015 Inactive cyanocobalamin (vit B-12) 1,000 mcg/mL injection solution RxNorm: 382060 Milliliter(s) INJECT 1ML INTRAMUSCULARLY MONTHLY 12/12/2014 12/22/2014 Inactive trazodone 50 mg tablet RxNorm: 006071 TAKE ONE TABLET BY MOUTH AT BEDTIME 11/14/2014 05/08/2015 Inactive erythromycin 5 mg/gram (0.5 %) eye ointment RxNorm: 204846 1/2 inch OPH QID 11/05/2014 11/14/2014 Inactive acyclovir 800 mg tablet RxNorm: 632822 1 Tablet(s) PO TID 11/05/2014 11/18/2014 Inactive Zofran 4 mg tablet RxNorm: 911908 1 Tablet(s) PO Q4H as needed nausea 11/05/2014 01/03/2015 Inactive Duragesic 12 mcg/hr transdermal patch RxNorm: 605732 1 Patch TD Q72H 11/05/2014 02/04/2015 Inactive Imitrex 100 mg tablet RxNorm: 737375 1 Tablet(s) PO q 12 hours 11/04/2014 04/15/2015 Inactive naproxen 500 mg tablet RxNorm: 657657 1 Tablet(s) PO BID 10/30/2014 11/01/2014 Inactive meloxicam 15 mg tablet RxNorm: 134650 TAKE ONE TABLET BY MOUTH DAILY 10/04/2014 03/02/2015 Inactive Vesicare 5 mg tablet RxNorm: 825428 TAKE ONE TABLET BY MOUTH AT BEDTIME 09/16/2014 07/16/2015 Inactive Vitamin D2 50,000 unit capsule RxNorm: 267004 1 Capsule(s) PO QW 09/06/2014 07/16/2015 Inactive once weekly x 12 weeks tamsulosin ER 0.4 mg capsule,extended release 24 hr RxNorm: 176868 TAKE ONE CAPSULE BY MOUTH EVERY EVENING 06/24/2014 12/20/2014 Inactive tamsulosin ER 0.4 mg capsule,extended release 24 hr RxNorm: 316056 1 Capsule(s) PO QPM 06/24/2014 01/19/2015 Inactive Vitamin D2 50,000 unit capsule RxNorm: 485984 1 Capsule(s) PO QW 05/27/2014 09/05/2014 Inactive once weekly x 12 weeks Vesicare 5 mg tablet RxNorm: 535612 1 Tablet(s) PO QHS 05/23/2014 05/22/2014 Inactive Vesicare 5 mg tablet RxNorm: 776856 1 Tablet(s) PO QHS 05/23/2014 09/15/2014 Inactive trazodone 50 mg tablet RxNorm: 961968 TAKE ONE TABLET BY MOUTH AT BEDTIME 05/13/2014 11/08/2014 Inactive trazodone 50 mg tablet RxNorm: 106415 TAKE ONE TABLET BY MOUTH AT BEDTIME 05/13/2014 11/08/2014 Inactive hydrochlorothiazide 25 mg tablet RxNorm: 918503 1 Tablet(s) PO QAM 04/18/2014 01/12/2015 Inactive Vitamin D2 50,000 unit capsule RxNorm: 415058 TAKE ONE CAPSULE BY MOUTH ONCE WEEKLY FOR 12 WEEKS 04/09/2014 05/14/2014 Inactive trazodone 50 mg tablet RxNorm: 924933 1 Tablet(s) PO QHS 02/22/2014 05/12/2014 Inactive trazodone 50 mg tablet RxNorm: 712546 1 Tablet(s) PO QHS 02/22/2014 02/21/2014 Inactive Vitamin D2 50,000 unit capsule RxNorm: 093989 TAKE ONE CAPSULE BY MOUTH ONCE WEEKLY FOR 12 WEEKS 02/07/2014 03/06/2014 Inactive meloxicam 15 mg tablet RxNorm: 493719 TAKE ONE TABLET BY MOUTH ONCE A DAY 02/07/2014 08/05/2014 Inactive meloxicam 15 mg tablet RxNorm: 540329 TAKE ONE TABLET BY MOUTH ONCE A DAY 02/07/2014 2014 Inactive clotrimazole 1 % topical cream RxNorm: 381385 1 Application TOP BID 12/25/2013 07/16/2015 Inactive Diflucan 150 mg tablet RxNorm: 434843 1 Tablet(s) PO daily 12/25/2013 12/31/2013 Inactive tamsulosin ER 0.4 mg capsule,extended release 24 hr RxNorm: 106292 1 Capsule(s) PO QPM 11/28/2013 06/23/2014 Inactive cyanocobalamin (vit B-12) 1,000 mcg/mL injection solution RxNorm: 701701 1 Milliliter(s) Inj 11/28/2013 12/12/2014 Inactive Vitamin B-12 1,000 mcg/mL injection solution RxNorm: 705785 1 Milliliter(s) Inj monthly 11/21/2013 02/13/2015 Inactive please give syringes for injections Vitamin D2 50,000 unit capsule RxNorm: 868203 1 Capsule(s) PO QW x 12 weeks 11/21/2013 02/06/2014 Inactive [SAVINGS FOR UNINSURED PATIENTS -- to take addtional 2000 units daily Vitamin B-12 1,000 mcg/mL injection solution RxNorm: 423276 1 Milliliter(s) Inj monthly 11/21/2013 11/20/2013 Inactive meloxicam 15 mg tablet RxNorm: 829278 1 Tablet(s) PO daily 11/20/2013 11/19/2013 Inactive [SAVINGS FOR UNINSURED PATIENTS -- BIN:619568, PCN: [id number], Group: [id number], ID# [id number], Process claim through [facility] [employer], for questions: . THIS IS NOT INSURANCE.] meloxicam 15 mg tablet RxNorm: 844538 1 Tablet(s) PO daily 11/20/2013 02/06/2014 Inactive [SAVINGS FOR UNINSURED PATIENTS -- BIN:123009, PCN: [id number], Group: [id number], ID# [id number], Process claim through [facility], for questions: . THIS IS NOT INSURANCE.] meloxicam 15 mg tablet RxNorm: 717780 1 Tablet(s) PO daily 11/20/2013 11/19/2013 Inactive Voltaren 1 % topical gel RxNorm: 599872 4 Application TOP QID apply to back, affected joints four times daily 11/14/2013 11/20/2013 Inactive Toprol XL 25 mg tablet,extended release RxNorm: 133643 1 Tablet(s) PO daily No Start Date Active trazodone 50 mg tablet RxNorm: 819585 1 Tablet(s) PO QHS No Start Date Active Vitamin D2 50,000 unit capsule RxNorm: 249515 1 Capsule(s) PO QW No Start Date 05/26/2014 Inactive once weekly x 12 weeks Zithromax Z-Brian 250 mg tablet RxNorm: 191010 1 Tablet(s) PO UD No Start Date 02/06/2018 Inactive Vitamin D2 50,000 unit capsule RxNorm: 183180 1 Capsule(s) PO QW No Start Date 11/20/2013 Inactive gabapentin 300 mg capsule RxNorm: 297314 1 Capsule(s) PO TID No Start Date 03/28/2017 Inactive Vesicare 10 mg tablet RxNorm: 970438 1 Tablet(s) PO QHS No Start Date 03/14/2016 Inactive Vitamin D3 5,000 unit tablet RxNorm: 258776 1 Tablet(s) PO daily No Start Date 08/11/2015 Inactive Celebrex 200 mg capsule RxNorm: 106175 1 Capsule(s) PO BID No Start Date 07/19/2016 Inactive Imitrex 50 mg tablet RxNorm: 075847 1 Tablet(s) PO now and may repeat up to four times in 24 hours No Start Date 11/03/2014 Inactive Zofran 4 mg tablet RxNorm: 780940 1 Tablet(s) PO Q8 as needed nausea and vomitting No Start Date 10/15/2015 Inactive ranitidine 150 mg tablet RxNorm: 331364 1 Tablet(s) PO BID No Start Date 02/12/2018 Inactive Phenergan 25 mg tablet RxNorm: 983195 1 Tablet(s) PO now No Start Date 04/15/2015 Inactive Tums oral RxNorm: 952265 oral No Start Date 10/15/2015 Inactive Medication Administered Medication Codes Instructions Start Date Status Kenalog 40 mg/mL suspension for injection RxNorm: 4590082 1Milliliter 09/07/2017 No longer Active cyanocobalamin (vit B-12) 1,000 mcg/mL injection solution RxNorm: 467038 1Milliliter 11/28/2013 No longer Active Immunizations Vaccine Codes Date Status Influenza CVX: 141 04/06/2017 completed PPD Unknown 07/03/2015 completed Zoster CVX: 121 11/29/2014 completed Influenza CVX: 141 03/26/2013 completed Assessments Condition Codes Effective Dates 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 03/21/2018 Muscle weakness (generalized) ICD-10: M62.81 ICD-9: 728.87 03/21/2018 Foot drop, right foot ICD-10: M21.371 ICD-9: 736.79 03/21/2018 Acute bronchitis due to other specified organisms ICD-10: J20.8 ICD-9: 466.0 02/08/2018 Encounter for general adult medical examination with abnormal findings ICD-10: Z00.01 ICD-9: V70.0 12/27/2017 Pain in left shoulder ICD-10: M25.512 ICD-9: 719.41 12/06/2017 Essential (primary) hypertension ICD-10: I10 ICD-9: 401.9 12/06/2017 Obesity, unspecified ICD-10: E66.9 ICD-9: 278.00 11/01/2017 Localized edema ICD-10: R60.0 ICD-9: 782.3 06/07/2017 Cellulitis of left lower limb ICD-10: L03.116 ICD-9: 682.7 06/07/2017 Tinea pedis ICD-10: B35.3 ICD-9: 110.4 05/19/2017 Rash and other nonspecific skin eruption ICD-10: R21 ICD-9: 782.1 05/09/2017 Family history of ischemic heart disease and other diseases of the circulatory system ICD-10: Z82.49 ICD-9: V19.8 02/17/2017 Body mass index (BMI) 36.0-36.9, adult ICD-10: Z68.36 ICD-9: V85.36 02/17/2017 Other obesity due to excess calories [...] 784.0 11/05/2014 Leg weakness ICD-9: 729.89 09/19/2014 Post-polio syndrome ICD-9: 138 09/19/2014 Weakness ICD-9: 780.79 09/19/2014 Foot drop ICD-9: 736.79 09/19/2014 Seborrheic dermatitis ICD-9: 690.10 07/24/2014 Vitamin D deficiency ICD-9: 268.9 07/24/2014 Carotid bruit ICD-9: 785.9 07/24/2014 Nocturia ICD-9: 788.43 05/23/2014 Elevated blood sugar ICD-9: 790.29 05/23/2014 Vitamin B12 deficiency ICD-9: 266.2 05/23/2014 Neck pain ICD-9: 723.1 05/23/2014 EDEMA ICD-9: 782.3 04/18/2014 Nocturnal hypoxemia ICD-9: 799.02 02/21/2014 Insomnia ICD-9: 780.52 02/21/2014 Tinea pedis ICD-9: 110.4 12/25/2013 Vitamin B12 deficiency (dietary) anemia ICD-9: 281.1 11/28/2013 Arrhythmia ICD-9: 427.9 11/14/2013 Reason For Visit Reason For Visit Effective Dates Notes gait abnormality 03/21/2018 sinus congestion 02/08/2018 Annual [...] recently went to an eye doctor in [place]. Reports that he did have hemorrhaging in his right eye which is getting better. headache 04/18/2014 Pt states he recently went to an eye doctor in [place] shortness of breath 02/21/2014 blisters 12/25/2013 insomnia 11/28/2013 back pain 11/14/2013 Results Observation Observation Code Item Item Code Result Date Vitamin D 25 Oh [id number] VITAMIN D, 25 HYDROXY 66.80 ng/mL 03/14/2018 [...] 28.5 pg 03/14/2018 Cbc With Differential Ord2 [place]% 7.6 % 03/14/2018 Cbc With Differential Ord2 MCHC 31.8 pg 03/14/2018 Cbc With Differential Ord2 Eos% 3.4 % 03/14/2018 Cbc With Differential Ord2 Baso% 0.2 % 03/14/2018 Cbc With Differential Ord2 PLT 169 K/ul 03/14/2018 Cbc With Differential Ord2 RDW 14.9 % 03/14/2018 Cbc With Differential Ord2 Neut ABS# 3.72 K/ul 03/14/2018 Cbc With Differential Ord2 Lymph ABS# 1.28 K/ul 03/14/2018 Cbc With Differential Ord2 [place] ABS# 0.4 K/ul 03/14/2018 Cbc With Differential [...] Lipid Ord30 C/HDL 5.0 Ratio 06/27/2017 %Hba1C Uup942 % HbA1c 66170- 6 6.2 % 06/27/2017 %Hba1C Dna938 Gluc Ave 131 mg/dL 06/27/2017 Comp Metabolic Has392 NA 140 mEq/L 06/27/2017 Comp Metabolic Fft847 K 4.2 mEq/L 06/27/2017 Comp Metabolic Puv569 CL 100 mEq/L 06/27/2017 Comp Metabolic Lkn780 CO2 32.0 mEq/L 06/27/2017 Comp Metabolic Ouv697 ANION GAP 12 06/27/2017 Comp Metabolic Vbx106 GLUCOSE 118 mg/dL 06/27/2017 Comp Metabolic Ffy036 Creat 1.0 mg/dL 06/27/2017 Comp Metabolic Rdk893 eGFR 82 ml/min/1.73m2 06/27/2017 Comp Metabolic Ruk222 BUN 26 mg/dL 06/27/2017 Comp Metabolic Mzt052 B/C Ratio 27.1 Ratio 06/27/2017 Comp Metabolic Lzo940 CALCIUM 9.6 mg/dL 06/27/2017 Comp Metabolic Kzh964 ALK PHOS 46 U/L 06/27/2017 Comp Metabolic Cfy560 AST(SGOT) 23 U/L 06/27/2017 Comp Metabolic Hwn578 ALT(SGPT) 31 U/L 06/27/2017 Comp Metabolic Ijh752 BILI T 0.5 mg/dL 06/27/2017 Comp Metabolic Ltt860 ALBUMIN 4.2 g/dL 06/27/2017 Comp Metabolic Jsw309 TPRO 6.6 g/dL 06/27/2017 Comp Metabolic Jmq640 GLOB 2.4 g/dL 06/27/2017 Comp Metabolic Mxe557 A/G Ratio 1.7 Ratio 06/27/2017 Comp Metabolic Gga085 Osmo 285 mOsmo 06/27/2017 Cbc With Differential [...] 29.0 pg 10/20/2016 Cbc With Differential Ord2 [place]% 9.0 % 10/20/2016 Cbc With Differential Ord2 [...] 1.33 K/ul 10/20/2016 Cbc With Differential Ord2 [place] ABS# 0.4 K/ul 10/20/2016 Cbc With Differential Ord2 Eos ABS# 0.2 K/ul 10/20/2016 Cbc With Differential Ord2 Baso ABS# 0.0 K/ul 10/20/2016 Comp Metabolic Zeb014 NA 143 mEq/L 10/20/2016 Comp Metabolic Hrt266 K 4.6 mEq/L 10/20/2016 Comp Metabolic Jgl312 CL 104 mEq/L 10/20/2016 Comp Metabolic Uec282 CO2 31.0 mEq/L 10/20/2016 Comp Metabolic Kxb201 ANION GAP 13 10/20/2016 Comp Metabolic Vfl265 GLUCOSE 117 mg/dL 10/20/2016 Comp Metabolic Jhl253 Creat 1.1 mg/dL 10/20/2016 Comp Metabolic Twc072 eGFR 74 ml/min/1.73m2 10/20/2016 Comp Metabolic Krl423 BUN 27 mg/dL 10/20/2016 Comp Metabolic Mdj040 B/C Ratio 25.7 Ratio 10/20/2016 Comp Metabolic Ejw279 CALCIUM 9.3 mg/dL 10/20/2016 Comp Metabolic Mrr990 ALK PHOS 47 U/L 10/20/2016 Comp Metabolic Woj317 AST(SGOT) 18 U/L 10/20/2016 Comp Metabolic Exi659 ALT(SGPT) 22 U/L 10/20/2016 Comp Metabolic Uqt616 BILI T 0.5 mg/dL 10/20/2016 Comp Metabolic Ngb273 ALBUMIN 3.9 g/dL 10/20/2016 Comp Metabolic Plq985 TPRO 6.5 g/dL 10/20/2016 Comp Metabolic Lmo434 GLOB 2.6 g/dL 10/20/2016 Comp Metabolic Ovw435 A/G Ratio 1.5 Ratio 10/20/2016 Comp Metabolic Esg719 Osmo 291 mOsmo 10/20/2016 Tsh Ord6 hTSH II 1.56 uIU/mL 10/20/2016 Lipid Ord30 CHOL 153 mg/dL 10/20/2016 Lipid Ord30 HDL 34.0 mg/dl 10/20/2016 Lipid Ord30 TRIG 123 mg/dL 10/20/2016 Lipid Ord30 LDL 94 mg/dL 10/20/2016 Lipid Ord30 C/HDL 4.5 Ratio 10/20/2016 B12 Wxv703 B12 544.00 pg/ml 10/20/2016 Comp Metabolic Dus382 NA 138 mEq/L 05/13/2016 Comp Metabolic Kjd378 K 4.2 mEq/L 05/13/2016 Comp Metabolic Aoi655 CL 102 mEq/L 05/13/2016 Comp Metabolic Acp917 CO2 30.0 mEq/L 05/13/2016 Comp Metabolic Tih441 ANION GAP 10 05/13/2016 Comp Metabolic Bvw618 GLUCOSE 113 mg/dL 05/13/2016 Comp Metabolic Ssg106 Creat 1.0 mg/dL 05/13/2016 Comp Metabolic Zva409 eGFR 77 ml/min/1.73m2 05/13/2016 Comp Metabolic Hfm969 BUN 26 mg/dL 05/13/2016 Comp Metabolic Kto209 B/C Ratio 25.5 Ratio 05/13/2016 Comp Metabolic Cmb814 CALCIUM 9.7 mg/dL 05/13/2016 Comp Metabolic Esm257 ALK PHOS 51 U/L 05/13/2016 Comp Metabolic Afl016 AST(SGOT) 17 U/L 05/13/2016 Comp Metabolic Sbt349 ALT(SGPT) 20 U/L 05/13/2016 Comp Metabolic Lsu168 BILI T 0.6 mg/dL 05/13/2016 Comp Metabolic Vgk305 ALBUMIN 4.0 g/dL 05/13/2016 Comp Metabolic Afi755 TPRO 6.6 g/dL 05/13/2016 Comp Metabolic Obq934 GLOB 2.6 g/dL 05/13/2016 Comp Metabolic Xtw627 A/G Ratio 1.6 Ratio 05/13/2016 Comp Metabolic Ehu980 Osmo 281 mOsmo 05/13/2016 Lipid Ord30 CHOL [...] 25.3 % 02/11/2016 Cbc With Differential Ord2 [place]% 7.7 % 02/11/2016 Cbc With Differential Ord2 MCH 29.3 pg 02/11/2016 Cbc With Differential Ord2 MCHC 32.9 pg 02/11/2016 Cbc With Differential Ord2 Eos% 3.0 % 02/11/2016 Cbc With Differential Ord2 PLT 161 K/ul 02/11/2016 Cbc With Differential Ord2 Baso% 0.2 % 02/11/2016 Cbc With Differential Ord2 RDW 14.3 % 02/11/2016 Cbc With Differential Ord2 Neut ABS# 2.98 K/ul 02/11/2016 Cbc With Differential Ord2 Lymph ABS# 1.18 K/ul 02/11/2016 Cbc With Differential Ord2 [place] ABS# 0.4 K/ul 02/11/2016 Cbc With Differential Ord2 Eos ABS# 0.1 K/ul 02/11/2016 Cbc With Differential Ord2 Baso ABS# 0.0 K/ul 02/11/2016 Comp Metabolic Xnw371 NA 138 mEq/L 02/11/2016 Comp Metabolic Ugd427 K 4.0 mEq/L 02/11/2016 Comp Metabolic Amc951 CL 97 mEq/L 02/11/2016 Comp Metabolic Kxq380 CO2 32.0 mEq/L 02/11/2016 Comp Metabolic Pjz230 ANION GAP 13 02/11/2016 Comp Metabolic Jta084 GLUCOSE 117 mg/dL 02/11/2016 Comp Metabolic Kvp302 Creat 1.0 mg/dL 02/11/2016 Comp Metabolic Fno808 eGFR 81 ml/min/1.73m2 02/11/2016 Comp Metabolic Qmj225 BUN 21 mg/dL 02/11/2016 Comp Metabolic Cle787 B/C Ratio 21.4 Ratio 02/11/2016 Comp Metabolic Byk263 CALCIUM 9.2 mg/dL 02/11/2016 Comp Metabolic Jra455 ALK PHOS 48 U/L 02/11/2016 Comp Metabolic Opc754 AST(SGOT) 18 U/L 02/11/2016 Comp Metabolic Tak403 ALT(SGPT) 22 U/L 02/11/2016 Comp Metabolic Qts353 BILI T 0.5 mg/dL 02/11/2016 Comp Metabolic Ppf538 ALBUMIN 3.9 g/dL 02/11/2016 Comp Metabolic Ymg462 TPRO 6.3 g/dL 02/11/2016 Comp Metabolic Hts840 GLOB 2.5 g/dL 02/11/2016 Comp Metabolic Ykl022 A/G Ratio 1.6 Ratio 02/11/2016 Comp Metabolic Bki896 Osmo 280 mOsmo 02/11/2016 Lipid Ord30 CHOL 163 mg/dL 02/11/2016 Lipid Ord30 HDL 35.0 mg/dl 02/11/2016 Lipid Ord30 TRIG 200 mg/dL 02/11/2016 Lipid Ord30 LDL 88 mg/dL 02/11/2016 Lipid Ord30 C/HDL 4.7 Ratio 02/11/2016 %Hba1C Dwv031 % HbA1c 67361- 6 6.5 % 02/11/2016 %Hba1C Bsy883 Gluc Ave 140 mg/dL 02/11/2016 Tsh Ord6 hTSH II 2.07 uIU/mL 02/11/2016 B12 Nhf725 B12 563.00 pg/ml 02/11/2016 Culture Urine [id number] URINE CULTURE SEE NOTES 02/10/2016 Culture Urine [id number] Continued Results 02/10/2016 Urine Culture Ucult Complete [...] hours from collection if refrigerated) 11/04/2015 %Hba1C Tct903 % HbA1c 92972- 6 6.4 % 04/16/2015 %Hba1C Mae254 Gluc Ave 137 mg/dL 04/16/2015 Comp Metabolic Fzl931 NA 136 mEq/L 02/07/2015 Comp Metabolic Tad697 K 3.9 mEq/L 02/07/2015 Comp Metabolic Hbt400 CL 98 mEq/L 02/07/2015 Comp Metabolic Vip360 CO2 31.0 mEq/L 02/07/2015 Comp Metabolic Moy421 ANION GAP 11 02/07/2015 Comp Metabolic Fwa631 GLUCOSE 139 mg/dL 02/07/2015 Comp Metabolic Snd607 Creat 0.9 mg/dL 02/07/2015 Comp Metabolic Fmf850 eGFR 87 ml/min/1.73m2 02/07/2015 Comp Metabolic Arb717 BUN 20 mg/dL 02/07/2015 Comp Metabolic Syg018 B/C Ratio 21.7 Ratio 02/07/2015 Comp Metabolic Uvp336 CALCIUM 9.7 mg/dL 02/07/2015 Comp Metabolic Dox797 ALK PHOS 55 U/L 02/07/2015 Comp Metabolic Rvc643 AST(SGOT) 20 U/L 02/07/2015 Comp Metabolic Jpm532 ALT(SGPT) 27 U/L 02/07/2015 Comp Metabolic Fxj896 BILI T 0.5 mg/dL 02/07/2015 Comp Metabolic Yjs580 ALBUMIN 4.3 g/dL 02/07/2015 Comp Metabolic Ngg359 TPRO 6.9 g/dL 02/07/2015 Comp Metabolic Rji292 GLOB 2.6 g/dL 02/07/2015 Comp Metabolic Lpr111 A/G Ratio 1.7 Ratio 02/07/2015 Comp Metabolic Ffu493 Osmo 277 mOsmo 02/07/2015 Cbc With Differential [...] With Differential Ord2 RDW 14.8 % 02/07/2015 Tsh Ord6 hTSH II 3.33 uIU/mL 02/07/2015 VIT D TOTL [id number] VIT D TOTL 29 NG/ML 05/23/2014 VIT B 12 [id number] VIT B 12 479 PG/ML 05/23/2014 A1C HPLC [id number] A1C HPLC 30181-1 6.0 % 05/23/2014 Review of Systems System Result Effective Dates Constitutional No recent illness 03/21/2018 Constitutional No [...] retractions 06/07/2017 None Full Exam - General 1995 Respiratory respiratory effort/rhythm Overall: normal rate 06/07/2017 None Full Exam - General 1995 Cardiovascular auscultation of heart Rate: regular rate [...] 4: G0439 12/27/2017 THER/PROPH/DIAG INJ SC/IM CPT-4: 78214 09/07/2017 TRIAMCINOLONE ACET INJ NOS CPT-4: J3301 09/07/2017 ROUTINE VENIPUNCTURE CPT- 4: 14025 05/23/2014 THER/PROPH/DIAG INJ SC/IM CPT-4: 80202 11/28/2013 VITAMIN B12 INJECTION CPT- 4: J3420 11/28/2013 Vital Signs Date Vital 03/21/2018 Blood Pressure 1: 138/74 Code: 8480-6 BMI: 36.8 Code: 11663-6 Heart Rate 1: 81 bpm Height: 6' SpO2: 98% Weight: 271 lbs 02/08/2018 Blood Pressure 1: 132/74 Code: 8480-6 BMI: 37.0 Code: 27403-4 Heart Rate 1: 82 bpm Height: 6' SpO2: 97% Weight: 273 lbs 12/27/2017 Blood Pressure 1: 148/78 Code: 8480-6 BMI: 36.3 Code: 82960-4 Heart Rate 1: 78 bpm Height: 6' SpO2: 93% Waist Measure (cm): 117 cm Weight: 268 lbs 12/06/2017 Blood Pressure 1: 122/70 Code: 8480-6 BMI: 36.6 Code: 43145-3 Heart Rate 1: 76 bpm Height: 6' SpO2: 93% Weight: 270 lbs 11/01/2017 BMI: 36.9 Code: 90734-3 Height: 6' Weight: 272 lbs 09/07/2017 Blood Pressure 1: 140/78 Code: 8480-6 BMI: 35.8 Code: 45347-4 Heart Rate 1: 76 bpm Height: 6' SpO2: 98% Weight: 264 lbs 06/07/2017 Blood Pressure 1: 138/86 Code: 8480-6 BMI: 36.3 Code: 20522-3 Heart Rate 1: 66 bpm Height: 6' SpO2: 95% Weight: 268 lbs 05/19/2017 Blood Pressure 1: 152/84 Code: 8480-6 BMI: 36.8 Code: 59413-6 Heart Rate 1: 70 bpm Height: 6' SpO2: 93% Weight: 271 lbs 05/09/2017 Blood Pressure 1: 138/76 Code: 8480-6 BMI: 36.6 Code: 40574-1 Heart Rate 1: 79 bpm Height: 6' SpO2: 93% Weight: 270 lbs 04/25/2017 Blood Pressure 1: 150/80 Code: 8480-6 Heart Rate 1: 58 bpm Height: SpO2: 94% Weight: 2017 Blood Pressure 1: 138/80 Code: 8480-6 BMI: 36.5 Code: 15231-2 Heart Rate 1: 76 bpm Height: 6' SpO2: 96% Weight: 269 lbs 03/29/2017 Blood Pressure 1: 118/68 Code: 8480-6 BMI: 36.9 Code: 14088-6 Heart Rate 1: 61 bpm Height: 6' SpO2: 95% Weight: 272 lbs 03/17/2017 Blood Pressure 1: 140/78 Code: 8480-6 BMI: 36.8 Code: 33575-2 Heart Rate 1: 91 bpm Height: 6' SpO2: 93% Weight: 271 lbs 03/08/2017 Blood Pressure 1: 152/84 Code: 8480-6 BMI: 36.8 Code: 57680-8 Heart Rate 1: 72 bpm Height: 6' SpO2: 92% Temperature: 36.6 (C) / 97.8 (F) Weight: 271 lbs 02/17/2017 Blood Pressure 1: 110/64 Code: 8480-6 BMI: 36.5 Code: 20741-7 Heart Rate 1: 62 bpm Height: 6' SpO2: 96% Weight: 269 lbs 01/18/2017 Blood Pressure 1: 140/80 Code: 8480-6 BMI: 36.5 Code: 75610-2 Heart Rate 1: 62 bpm Height: 6' SpO2: 94% Weight: 269 lbs 10/19/2016 Blood Pressure 1: 120/80 Code: 8480-6 BMI: 35.9 Code: 51082-2 Heart Rate 1: 64 bpm Height: 6' SpO2: 97% Weight: 265 lbs 08/17/2016 Blood Pressure 1: 112/76 Code: 8480-6 BMI: 36.1 Code: 25587-4 Heart Rate 1: 65 bpm Height: 6' SpO2: 97% Weight: 266 lbs 07/20/2016 Blood Pressure 1: 126/78 Code: 8480-6 BMI: 35.5 Code: 65098-1 Heart Rate 1: 60 bpm Height: 6' SpO2: 95% Weight: 262 lbs 04/19/2016 Blood Pressure 1: 132/78 Code: 8480-6 BMI: 35.1 Code: 90988-2 Heart Rate 1: 65 bpm Height: 6' SpO2: 98% Weight: 259 lbs 01/19/2016 Blood Pressure 1: 140/64 Code: 8480-6 BMI: 34.4 Code: 83080-5 Heart Rate 1: 61 bpm Height: 6' SpO2: 97% Weight: 254 lbs 10/16/2015 Blood Pressure 1: 108/66 Code: 8480-6 BMI: 35.3 Code: 77598-5 Heart Rate 1: 65 bpm Height: 6' SpO2: 96% Weight: 260 lbs 07/17/2015 Blood Pressure 1: 136/74 Code: 8480-6 BMI: 35.8 Code: 25952-0 Heart Rate 1: 59 bpm Height: 6' SpO2: 97% Weight: 263 lbs 13 07/03/2015 Weight: 265 lbs 04/16/2015 Blood Pressure 1: 130/82 Code: 8480-6 BMI: 36.1 Code: 53648-9 Heart Rate 1: 7694 bpm Height: 6' SpO2: 94% Weight: 266 lbs 02/19/2015 Blood Pressure 1: 160/90 Code: 8480-6 BMI: 35.8 Code: 40905-8 Heart Rate 1: 78 bpm Height: 6' SpO2: 94% Weight: 264 lbs 11/20/2014 Blood Pressure 1: 140/96 Code: 8480-6 BMI: 34.6 Code: 06869-2 Heart Rate 1: 92 bpm Height: 6' SpO2: 95% Weight: 255 lbs 11/05/2014 Blood Pressure 1: 132/70 Code: 8480-6 BMI: 34.6 Code: 44987-7 Heart Rate 1: 96 bpm Height: 6' SpO2: 98% Weight: 255 lbs 09/19/2014 Blood Pressure 1: 152/86 Code: 8480-6 BMI: 35.8 Code: 15683-0 Heart Rate 1: 82 bpm Height: 6' SpO2: 95% Weight: 264 lbs 07/24/2014 Blood Pressure 1: 142/82 Code: 8480-6 BMI: 34.7 Code: 63358-6 Heart Rate 1: 72 bpm Height: 6' Weight: 256 lbs 05/23/2014 Blood Pressure 1: 150/82 Code: 8480-6 BMI: 33.4 Code: 25205-6 Heart Rate 1: 68 bpm Height: 6' Weight: 246 lbs 04/18/2014 Blood Pressure 1: 132/84 Code: 8480-6 BMI: 33.2 Code: 69859-4 Heart Rate 1: 80 bpm Height: 6' Weight: 245 lbs 02/21/2014 Blood Pressure 1: 138/82 Code: 8480-6 BMI: 32.4 Code: 37974-4 Heart Rate 1: 85 bpm Height: 6' SpO2: 98% Weight: 239 lbs 12/25/2013 Blood Pressure 1: 146/80 Code: 8480-6 BMI: 30.5 Code: 13449-9 Heart Rate 1: 100 bpm Height: 6' Weight: 225 lbs 11/28/2013 Blood Pressure 1: 120/64 Code: 8480-6 BMI: 30.4 Code: 49878-6 Heart Rate 1: 68 bpm Height: 6' Weight: 224 lbs 11/14/2013 Blood Pressure 1: 124/80 Code: 8480-6 BMI: 30.0 Code: 78287-5 Heart Rate 1: 76 bpm Height: 6' Weight: 221 lbs Functional Status No Functional Status data History of Present Illness Symptom Name Status Result Effective Date Notes gait abnormality Quality unsteady 03/21/2018 None gait [...] Maxitrol and Polytrim seeing eye dr in [place]. Reports eye still feels irritated. headache Quality [...] Codes Date EST. 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 PATIENT, LEVEL III Diagnosis: Acute bronchitis due to other specified organisms[ICD10: J20.8] Antoinette Long MD, [facility] CPT-4: 95980 02/08/2018 ([id number]) 15991 EST. 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 PATIENT, LEVEL III Diagnosis: Essential (primary) hypertension[ICD10: I10] Diagnosis: Localized edema[ICD10: R60.0] Diagnosis: Cellulitis of left lower limb[ICD10: L03.116] Quyen Long MD [facility] CPT-4: 95383 06/07/2017 ([id number]) 96119 EST. 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 PATIENT, LEVEL II Diagnosis: Rash and other nonspecific skin eruption[ICD10: R21] Glory Long MD [facility] CPT-4: 78062 05/09/2017 ([id number]) 12758 EST. PATIENT, LEVEL II Diagnosis: Rash and other nonspecific skin eruption[ICD10: R21] Glory Long MD [facility] CPT-4: 17345 04/25/2017 ([id number]) 41784 EST. PATIENT, LEVEL III Diagnosis: Cellulitis of left lower limb[ICD10: L03.116] Diagnosis: Rash and other nonspecific skin eruption[ICD10: R21] Glory Long MD [facility] CPT-4: 42629 2017 ([id number]) 26345 EST. PATIENT, LEVEL III Diagnosis: Cellulitis of left lower limb[ICD10: L03.116] Diagnosis: Rash and other nonspecific skin eruption[ICD10: R21] Glory Long MD [facility] CPT-4: 00870 03/29/2017 83314 EST. PATIENT, LEVEL IV Diagnosis: Cellulitis of left lower limb[ICD10: L03.116] Antoinette Long MD [facility] CPT-4: 18166 03/17/2017 ([id number]) 14324 EST. PATIENT, LEVEL III Diagnosis: Rash and other nonspecific skin eruption[ICD10: R21] Glory Long MD [facility] CPT-4: 62546 03/08/2017 95915 EST. PATIENT, LEVEL IV Diagnosis: Essential (primary) hypertension[ICD10: I10] Diagnosis: Muscle weakness (generalized)[ICD10: M62.81] Diagnosis: Body mass index (BMI) 36.0-36.9, adult[ICD10: Z68.36] Diagnosis: Family history of ischemic heart disease and other diseases of the circulatory system[ICD10: Z82.49] Antoinette Long MD, [facility] CPT-4: 57555 02/17/2017 ([id number]) 11238 EST. PATIENT, LEVEL IV Diagnosis: Essential (primary) hypertension[ICD10: I10] Diagnosis: Muscle weakness (generalized)[ICD10: M62.81] Quyen Long MD, [facility] CPT-4: 06533 01/18/2017 ([id number]) 08356 EST. 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 PATIENT, LEVEL III Diagnosis: Pain in left shoulder[ICD10: M25.512] Diagnosis: Rash and other nonspecific skin eruption[ICD10: R21] Glory Long MD, [facility] CPT-4: 11282 08/17/2016 ([id number]) 81156 EST. PATIENT, LEVEL IV Diagnosis: Essential (primary) hypertension[ICD10: I10] Diagnosis: Pain in left shoulder[ICD10: M25.512] Quyen Long MD, [facility] CPT-4: 41761 07/20/2016 ([id number]) 92958 EST. 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 PATIENT, LEVEL IV Diagnosis: Essential (primary) hypertension[ICD10: I10] Diagnosis: Other abnormal glucose[ICD10: R73.09] Diagnosis: Gastro-esophageal reflux disease without esophagitis[ICD10: K21.9] Diagnosis: Obesity, unspecified[ICD10: E66.9] Quyen Long MD [facility] CPT- 4: 94906 04/16/2015 ([id number]) 87118 EST. PATIENT, LEVEL IV Diagnosis: ESSENTIAL HYPERTENSION[ICD9: 401.9] Diagnosis: OBESITY[ICD9: 278.00] Diagnosis: Post-polio limb muscle weakness[ICD9: 728.87] Quyen Long MD [facility] CPT-4: 06943 02/19/2015 ([id number]) 65535 EST. PATIENT, LEVEL IV Diagnosis: Shingles outbreak[ICD9: 053.9] Diagnosis: ESSENTIAL HYPERTENSION[ICD9: 401.9] Diagnosis: Earache[ICD9: 388.70] Quyen Long MD, [facility] CPT-4: 95213 11/20/2014 ([id number]) 27634 EST. PATIENT, LEVEL III Diagnosis: Shingles outbreak[ICD9: 053.9] Diagnosis: Face pain[ICD9: 784.0] Diagnosis: Pain, eye, right[ICD9: 379.91] Quyen Long MD, [facility] CPT-4: 55198 11/05/2014 ([id number]) 04320 EST. PATIENT, LEVEL V Diagnosis: Post-polio limb muscle weakness[ICD9: 728.87] Diagnosis: Post-polio syndrome[ICD9: 138] Diagnosis: Leg weakness[ICD9: 729.89] Diagnosis: Weakness[ICD9: 780.79] Diagnosis: Foot drop[ICD9: 736.79] Quyen Long MD, [facility] CPT-4: 19954 09/19/2014 ([id number]) 12983 EST. PATIENT, LEVEL IV Diagnosis: ESSENTIAL HYPERTENSION[ICD9: 401.9] Diagnosis: Carotid bruit[ICD9: 785.9] Diagnosis: Seborrheic dermatitis[ICD9: 690.10] Diagnosis: Post-polio syndrome[ICD9: 138] Diagnosis: Vitamin D deficiency[ICD9: 268.9] Quyen Long MD, [facility] CPT- 4: 50168 07/24/2014 ([id number]) 86370 EST. PATIENT, LEVEL IV Diagnosis: Neck pain[ICD9: 723.1] Diagnosis: Post-polio syndrome[ICD9: 138] Diagnosis: Vitamin D deficiency[ICD9: 268.9] Diagnosis: Vitamin B12 deficiency[ICD9: 266.2] Diagnosis: Nocturia[ICD9: 788.43] Diagnosis: Leg weakness[ICD9: 729.89] Diagnosis: Elevated blood sugar[ICD9: 790.29] Glory Long MD, [facility] CPT- 4: 32797 05/23/2014 ([id number]) 89107 EST. PATIENT, LEVEL IV Diagnosis: ESSENTIAL HYPERTENSION[ICD9: 401.9] Diagnosis: HEADACHE[ICD9: 784.0] Diagnosis: EDEMA[ICD9: 782.3] Quyen Long MD, [facility] CPT-4: 64570 04/18/2014 46808 EST. PATIENT, LEVEL IV Diagnosis: Insomnia[ICD9: 780.52] Diagnosis: Post-polio syndrome[ICD9: 138] Diagnosis: Vitamin D deficiency[ICD9: 268.9] Diagnosis: Nocturnal hypoxemia[ICD9: 799.02] Glory Long MD, [facility] CPT- 4: 69898 02/21/2014 ([id number]) 39481 EST. PATIENT, LEVEL III Diagnosis: Tinea pedis[ICD9: 110.4] Diagnosis: Post-polio limb muscle weakness[ICD9: 728.87] Glory Long MD, [facility] CPT-4: 82478 12/25/2013 ([id number]) 05914 EST. PATIENT, LEVEL IV Diagnosis: Insomnia[ICD9: 780.52] Diagnosis: Vitamin B12 deficiency (dietary) anemia[ICD9: 281.1] Diagnosis: VITAMIN D DEFICIENCY[ICD9: 268.9] Diagnosis: Weakness[ICD9: 780.79] Quyen Long MD, [facility] CPT-4: 73438 11/28/2013 ([id number]) OFFICE/OUTPATIENT VISIT NEW Diagnosis: Post-polio limb muscle weakness[ICD9: 728.87] Diagnosis: Post-polio syndrome[ICD9: 138] Diagnosis: Insomnia[ICD9: 780.52] Diagnosis: Arrhythmia[ICD9: 427.9] Quyen Long MD, [facility] CPT-4: 56104 11/14/2013 Plan of Care Planned Activity Notes Codes Status Date Appointment: Glory Dalton [place]el[place] [facility] [place] [facility] [place] [facility] (15 min) Moderate 03/21/2018 Patient Education: Patient Medication Summary Completed 03/21/2018 Appointment: Antoinette Arndt WPtel: [facility] [place] [facility] [place] [facility] (30 min) Complex 02/08/2018 Patient Education: Patient Medication Summary Completed 02/08/2018 Patient Education: Patient Medication Summary Completed 12/27/2017 Appointment: Quyen Long WPtel: [facility] [place] [facility] [place] [facility] ([facility] min) Moderate 12/08/2017 Appointment: [facility] [phone] [facility] [place] (15 min) Moderate 12/06/2017 Patient Education: Patient Medication Summary Completed 12/06/2017 Appointment: Nurse Visit 11/01/2017 Patient Education: Patient Medication Summary Completed 11/01/2017 Appointment: [facility] [phone] [facility] [place] (15 min) Moderate 09/07/2017 Patient Education: Patient Medication Summary Completed 09/07/2017 Appointment: Nurse Visit 08/01/2017 App[facility]ment[facility] [phone] [facility] [place] (15 min) Moderate 06/07/2017 Patient Education: Patient Medication Summary Completed 06/07/2017 Appointment: Quyen Long WPtel: [phone] [facility] [place] (15 min) Moderate 05/19/2017 Patient Education: Patient Medication Summary Completed 05/19/2017 Patient Education: Obesity Completed 05/19/2017 Patient Education: Hypertension Completed 05/19/2017 Appointment: Glory Dalton WPtel: [facility] [place] [facility] [place] [facility] [place] (30 min) Complex 05/09/2017 Patient Education: Patient Medication Summary Completed 05/09/2017 Patient Education: Obesity Completed 05/09/2017 Appointment: Glory Dalton WPtel: [facility] [place] [facility] [place] [facility] [place] (30 min) Complex 04/25/2017 Patient Education: Patient Medication Summary Completed 04/25/2017 Appointment: Glory Dalton WPtel: [phone] [phone] [place] (30 min) Complex 2017 Patient Education: Patient Medication Summary Completed 2017 Patient Education: Obesity Completed 2017 Appointment: Glory Dalton WPtel: [phone] [phone] [place] (30 min) Complex 03/29/2017 Patient Education: Patient Medication Summary Completed 03/29/2017 Patient Education: Obesity Completed 03/29/2017 Appointment: Glory Dalton WPtel: [facility] [place] [facility] [place] [facility] [place] (30 min) Complex 03/22/2017 Appointment: Antointete Arndt WPtel: [facility] [place] [facility] [place] [facility] [place] (30 min) Complex 03/17/2017 Patient Education: Patient Medication Summary Completed 03/17/2017 Patient Education: Patient Medication Summary Completed 03/08/2017 Appointment: (15 min) Moderate 02/17/2017 Patient Education: Patient Medication Summary Completed 02/17/2017 Patient Education: Obesity Completed 02/17/2017 Patient Education: Hypertension Completed 02/17/2017 Care Plan: BMI Above normal followup SELF-MGMT EDUC & TRAIN 1 PT Pending 02/17/2017 Appointment: Quyen Long WPtel: [address] [place], [place] [address] [place] (15 min) Moderate 01/18/2017 Patient Education: Patient Medication Summary Completed 01/18/2017 Patient Education: Obesity Completed 01/18/2017 Patient Education: Hypertension Completed 01/18/2017 Appointment: Quyen Long WPtel: [address] [place] [address] (15 min) Moderate 10/19/2016 Patient Education: Patient Medication Summary Completed 10/19/2016 Patient Education: Obesity Completed 10/19/2016 Appointment: Glory Dalton WPtel: [facility] [place] [facility] [place] [facility] [place] (30 min) Complex 08/17/2016 Patient Education: Patient Medication Summary Completed 08/17/2016 Patient Education: Obesity Completed 08/17/2016 Appointment: Quyen Long WPtel: [facility] [place] [facility] [place] [facility] [place] (15 min) Moderate 07/20/2016 Patient Education: Patient Medication Summary Completed 07/20/2016 Appointment: Quyen Long WPtel: [address] [place], [place] [phone] [place] (15 min) Moderate 04/19/2016 Patient Education: Patient Medication Summary Completed 04/19/2016 Patient Education: Obesity Completed 04/19/2016 Patient Education: Hypertension Completed 04/19/2016 Care Plan: BMI Above normal followup SELF-MGMT EDUC & TRAIN 1 PT Pending 01/20/2016 Appointment: Quyen Long WPtel: [phone] [facility] (15 min) Moderate 01/19/2016 Patient Education: Patient Medication Summary Completed 01/19/2016 Patient Education: Obesity Completed 01/19/2016 Patient Education: Hypertension Completed 01/19/2016 Referral: Dr Mccauley Referral Completed 11/11/2015 Care Plan: Referral Order SNOMED-CT : [id number] Pending 11/03/2015 Appointment: [facility] [phone] [facility] (15 min) Moderate 10/16/2015 Patient Education: Patient Medication Summary Completed 10/16/2015 Patient Education: Obesity Completed 10/16/2015 Patient Education: Hypertension Completed 10/16/2015 Patient Education: Patient Medication Summary Completed 07/17/2015 Patient Education: Hypertension Completed 07/17/2015 Appointment: Nurse Visit 07/03/2015 Patient Education: Patient Medication Summary Completed 07/03/2015 Patient Education: Patient Medication Summary Completed 04/16/2015 Patient Education: Hypertension Completed 04/16/2015 Appointment: Quyen Long WPtel: [facility] [place] [facility] [place] [facility] (15 min) Moderate 02/19/2015 Patient Education: Patient Medication Summary Completed 02/19/2015 Patient Education: Hypertension Completed 02/19/2015 Appointment: [facility] [address] [facility] [place] Follow up 11/20/2014 Patient Education: Patient Medication Summary Completed 11/20/2014 Patient Education: Hypertension Completed 11/20/2014 Appointment: [facility] [address] [facility] [place] (15 min) Moderate 11/05/2014 Patient Education: Patient Medication Summary Completed 11/05/2014 Appointment: Quyen Long WPtel: [facility] [place] [facility] [place] [facility] Follow up 09/19/2014 Patient Education: Patient Medication Summary Completed 09/19/2014 Appointment: Quyen Long WPtel: [facility] [place] [facility] [place] [facility] Follow up 07/24/2014 Patient Education: Patient Medication Summary Completed 07/24/2014 Patient Education: Hypertension Completed 07/24/2014 Appointment: Glory Dalton WPtel: [facility] [place] [facility] [phone] Follow up 05/23/2014 Patient Education: Patient Medication Summary Completed 05/23/2014 Patient Education: .Cervicalgia Neck Pain Completed 05/23/2014 Appointment: Quyen Long WPtel: [address] [place], [place] [phone] Follow up 05/22/2014 Appointment: Quyen Long WPtel: [address] [place], [place] [phone] Follow up 04/18/2014 Patient Education: Patient Medication Summary Completed 04/18/2014 Patient Education: Hypertension Completed 04/18/2014 Appointment: Quyen Long WPtel: [address] [place], [place] [phone] Follow up 02/27/2014 Appointment: Glory Dalton WPtel: [address] [place], [place] [phone] [place] Follow up 02/21/2014 Patient Education: Patient Medication Summary Completed 02/21/2014 Appointment: hasnt received medicaid card yet Other 12/25/2013 Patient Education: Patient Medication Summary Completed 12/25/2013 Appointment: Quyen Long WPtel: [address] [place], [place] [phone] Follow up 11/28/2013 Patient Education: Patient Medication Summary Completed 11/28/2013 Appointment: Quyen Long WPtel: [address] [place], [place] [phone] New Patient 11/14/2013 Patient Education: Patient Medication Summary Completed 11/14/2013 Referral: Dr Mccauley Referral Appointment Requested Instructions No Instructions
--- OUTSIDE RECORDS SUMMARY | 2018-11-10 16:51 | XMS REPORT | CCD ---
Author Author Quyen Long Organization Quyen Long MD, [facility] Address [address] [place] [address] Phone Care Team Providers Care Spool Hauler Name Role Phone PP Unavailable CCM Unavailable Summary Purpose Interface Exchange Insurance Providers Payer name Policy type / Coverage type Covered democrat ID Effective Begin Date Effective End Date WPS Medicare Part B Medicare Part B [id number] 2013 Unknown [facility] Medicare Part B [id number] 2013 Unknown Family history Grandmother Diagnosis Age [...] Assisted Living [facility] 04/19/[address]: 3943679 Former smoker 1 pack daily x 45 years 10/16/2015 Number of children Unknown 1 son - lives in [place] 11/14/2013 Employment Unknown 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 Active 02/21/2014 Unknown Tinea pedis ICD-9: 110.4 ICD-10: B35.3 Active 05/19/2017 Unknown Rash and other nonspecific skin eruption ICD-9: 782.1 ICD-10: R21 Active 08/17/2016 Unknown Body mass index (BMI) 36.0-36.9, adult ICD-9: V85.36 ICD-10: Z68.36 Active 02/17/2017 Unknown Family history of ischemic heart disease and other diseases of the circulatory system ICD-9: V19.8 ICD-10: Z82.49 Active 02/17/2017 Unknown Muscle weakness (generalized) ICD-9: 728.87 ICD-10: M62.81 Active 12/25/2013 Unknown Pain in left shoulder ICD- 9: 719.41 ICD-10: M25.512 Active 07/16/2015 Unknown Other obesity due to excess calories [...] Problems Condition Codes Effective Dates Condition Status Cellulitis of left lower limb ICD-9: 682.7 ICD-10: L03.116 03/17/2017 Active Essential (primary) hypertension ICD-9: 401.9 ICD-10: I10 04/18/2014 Active Localized edema ICD-9: 782.3 ICD-10: R60.0 05/19/2017 Active 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 02/21/2014 Active Tinea pedis ICD-9: 110.4 ICD-10: B35.3 05/19/2017 Active Rash and other nonspecific skin eruption ICD-9: 782.1 ICD-10: R21 08/17/2016 Active Body mass index (BMI) 36.0-36.9, adult ICD-9: V85.36 ICD-10: Z68.36 02/17/2017 Active Family history of ischemic heart disease and other diseases of the circulatory system ICD-9: V19.8 ICD-10: Z82.49 02/17/2017 Active Muscle weakness (generalized) ICD-9: 728.87 ICD-10: M62.81 12/25/2013 Active Pain in left shoulder ICD- 9: 719.41 ICD-10: M25.512 07/16/2015 Active Other obesity due to excess calories [...] Date Status Fill Instructions ketoconazole 2 % topical cream RxNorm: 295562 APPLY TO AFFECTED AREA(S) TWO TIMES A DAY 05/31/2017 06/29/2017 Active hydrochlorothiazide 25 mg tablet RxNorm: 087523 TAKE ONE TABLET BY MOUTH DAILY 05/16/2017 02/09/2018 Active lisinopril 20 mg tablet RxNorm: 633999 TAKE ONE TABLET BY MOUTH DAILY 05/16/2017 02/09/2018 Active gabapentin 300 mg capsule RxNorm: 549613 1 Capsule(s) PO BID 03/29/2017 No Stop Date Active ketoconazole 2 % topical cream RxNorm: 153283 1 Application TOP BID 03/29/2017 04/11/2017 Inactive apply to faice-deliver to [facility] please betamethasone dipropionate 0.05 % topical ointment RxNorm: 206138 1 Application TOP BID 03/29/2017 04/11/2017 Inactive apply to arm/chests for itching trazodone 50 mg tablet RxNorm: 986819 TAKE ONE TABLET BY MOUTH AT BEDTIME 03/28/2017 08/24/2017 Active Vesicare 10 mg tablet RxNorm: 718638 TAKE ONE TABLET BY MOUTH EVERY NIGHT AT BEDTIME 03/21/2017 01/14/2018 Active Vesicare 10 mg tablet RxNorm: 641113 TAKE ONE TABLET BY MOUTH EVERY NIGHT AT BEDTIME 03/21/2017 06/06/2017 Inactive doxycycline hyclate 100 mg capsule RxNorm: 1102312 1 Capsule(s) PO BID 03/18/2017 03/27/2017 Inactive mupirocin 2 % topical ointment RxNorm: 040544 1 Application TOP BID 03/17/2017 No Stop Date Active doxycycline hyclate 100 mg tablet RxNorm: 918994 1 Tablet(s) PO BID 03/09/2017 03/15/2017 Inactive Take probiotic BID while on ABT doxycycline hyclate 100 mg tablet RxNorm: 612015 1 Tablet(s) PO BID 03/09/2017 03/08/2017 Inactive Take probiotic BID while on ABT meloxicam 15 mg tablet RxNorm: 118825 TAKE ONE TABLET BY MOUTH DAILY 02/10/2017 12/06/2017 Active Vitamin D3 5,000 unit tablet RxNorm: 279830 TAKE ONE TABLET BY MOUTH DAILY 02/08/2017 08/06/2017 Active Vitamin B-12 1,000 mcg/mL injection solution RxNorm: 308707 INJECT 1ML MONTHLY 01/24/2017 07/22/2017 Active lisinopril 20 mg tablet RxNorm: 247325 TAKE ONE TABLET BY MOUTH DAILY 12/13/2016 04/11/2017 Inactive trazodone 50 mg tablet RxNorm: 388554 TAKE ONE TABLET BY MOUTH AT BEDTIME 09/24/2016 03/22/2017 Inactive Vitamin D3 5,000 unit tablet RxNorm: 448995 TAKE ONE TABLET BY MOUTH DAILY 09/20/2016 02/07/2017 Inactive lisinopril 20 mg tablet RxNorm: 078397 TAKE ONE TABLET BY MOUTH DAILY 09/13/2016 12/12/2016 Inactive ketoconazole 2 % topical cream RxNorm: 118587 1 Application TOP BID 08/17/2016 08/30/2016 Inactive deliver to [facility] please Pepcid 20 mg tablet RxNorm: 467696 TAKE ONE TABLET BY MOUTH TWICE A DAY 07/12/2016 10/09/2016 Inactive omega-3 acid ethyl esters 1 gram capsule RxNorm: 602789 3 Capsule(s) PO daily 06/18/2016 12/14/2016 Inactive omega-3 acid ethyl esters 1 gram capsule RxNorm: 352618 3 Capsule(s) PO daily 06/18/2016 06/17/2016 Inactive trazodone 50 mg tablet RxNorm: 617943 TAKE ONE TABLET BY MOUTH AT BEDTIME 06/08/2016 08/06/2016 Inactive tamsulosin 0.4 mg capsule RxNorm: 632120 Capsule(s) TAKE ONE CAPSULE BY MOUTH EVERY EVENING 06/04/2016 12/30/2016 Inactive hydrochlorothiazide 25 mg tablet RxNorm: 883353 TAKE ONE TABLET BY MOUTH DAILY 05/10/2016 11/05/2016 Inactive hydrochlorothiazide 25 mg tablet RxNorm: 897676 TAKE ONE TABLET BY MOUTH DAILY 05/10/2016 05/09/2016 Inactive Pepcid 20 mg tablet RxNorm: 442594 1 Tablet(s) PO BID 03/18/2016 03/17/2016 Inactive Pepcid 20 mg tablet RxNorm: 672304 1 Tablet(s) PO BID 03/18/2016 07/11/2016 Inactive lisinopril 20 mg tablet RxNorm: 294283 TAKE ONE TABLET BY MOUTH DAILY 03/18/2016 08/14/2016 Inactive Vitamin D3 5,000 unit tablet RxNorm: 445078 Tablet(s) TAKE ONE TABLET BY MOUTH DAILY 03/18/2016 09/13/2016 Inactive trazodone 50 mg tablet RxNorm: 309870 TAKE ONE TABLET BY MOUTH AT BEDTIME 03/15/2016 06/07/2016 Inactive Vesicare 10 mg tablet RxNorm: 745654 1 Tablet(s) PO QHS 03/15/2016 02/07/2017 Inactive meloxicam 15 mg tablet RxNorm: 932736 TAKE ONE TABLET BY MOUTH DAILY 03/01/2016 01/24/2017 Inactive Bactrim DS 800 mg-160 mg tablet RxNorm: 293209 1 Tablet(s) PO BID 02/10/2016 02/09/2016 Inactive Bactrim DS 800 mg-160 mg tablet RxNorm: 095319 1 Tablet(s) PO BID 02/10/2016 02/16/2016 Inactive Cipro 500 mg tablet RxNorm: 583947 1 Tablet(s) PO BID 02/06/2016 02/09/2016 Inactive Cipro 500 mg tablet RxNorm: 070805 1 Tablet(s) PO BID 02/06/2016 02/05/2016 Inactive Pennsaid 20 mg/gram/actuation (2 %) topical soln in metered- dose pump RxNorm: 6508005 2 pumps TOP BID 01/19/2016 04/19/2016 Inactive tamsulosin 0.4 mg capsule RxNorm: 308166 TAKE ONE CAPSULE BY MOUTH EVERY EVENING 01/12/2016 06/03/2016 Inactive cyanocobalamin (vit B-12) 1,000 mcg/mL injection solution RxNorm: 171724 INJECT 1 ML INTRAMUSCULARLY MONTHLY 01/01/2016 10/26/2016 Inactive Request already responded to by other means (e.g. phone or fax) Vitamin B-12 1,000 mcg/mL injection solution RxNorm: 861594 1 Milliliter(s) Inj monthly 12/24/2015 04/19/2016 Inactive please give syringes for injections Vitamin D3 5,000 unit tablet RxNorm: 383144 TAKE ONE TABLET BY MOUTH DAILY 12/08/2015 03/06/2016 Inactive pantoprazole 40 mg tablet,delayed release RxNorm: 632375 TAKE ONE TABLET BY MOUTH DAILY 12/08/2015 03/17/2016 Inactive trazodone 50 mg tablet RxNorm: 753856 TAKE ONE TABLET BY MOUTH AT BEDTIME 11/10/2015 03/08/2016 Inactive lisinopril 20 mg tablet RxNorm: 540632 TAKE ONE TABLET BY MOUTH DAILY 09/08/2015 03/05/2016 Inactive Vitamin D3 5,000 unit tablet RxNorm: 685282 1 Tablet(s) PO daily 08/12/2015 12/07/2015 Inactive pantoprazole 40 mg tablet,delayed release RxNorm: 643040 1 Tablet(s) PO daily 08/12/2015 12/07/2015 Inactive tamsulosin 0.4 mg capsule RxNorm: 089720 TAKE ONE CAPSULE BY MOUTH EVERY EVENING 07/21/2015 12/17/2015 Inactive trazodone 50 mg tablet RxNorm: 222705 TAKE ONE TABLET BY MOUTH AT BEDTIME 05/09/2015 10/05/2015 Inactive hydrochlorothiazide 25 mg tablet RxNorm: 625769 TAKE ONE TABLET BY MOUTH DAILY 04/30/2015 11/25/2015 Inactive hydrochlorothiazide 25 mg tablet RxNorm: 120152 1 Tablet(s) PO QAM 04/30/2015 04/29/2015 Inactive pantoprazole 40 mg tablet,delayed release RxNorm: 107658 1 Tablet(s) PO daily 04/16/2015 08/11/2015 Inactive meloxicam 15 mg tablet RxNorm: 223319 TAKE ONE TABLET BY MOUTH DAILY 03/03/2015 02/25/2016 Inactive lisinopril 20 mg tablet RxNorm: 097816 1 Tablet(s) PO daily 02/19/2015 09/07/2015 Inactive tamsulosin 0.4 mg capsule RxNorm: 309201 TAKE ONE CAPSULE BY MOUTH EVERY EVENING 01/20/2015 07/18/2015 Inactive cyanocobalamin (vit B-12) 1,000 mcg/mL injection solution RxNorm: 623218 Milliliter(s) INJECT 1ML INTRAMUSCULARLY MONTHLY 12/12/2014 12/22/2014 Inactive trazodone 50 mg tablet RxNorm: 926423 TAKE ONE TABLET BY MOUTH AT BEDTIME 11/14/2014 05/08/2015 Inactive erythromycin 5 mg/gram (0.5 %) eye ointment RxNorm: 688450 1/2 inch OPH QID 11/05/2014 11/14/2014 Inactive acyclovir 800 mg tablet RxNorm: 119638 1 Tablet(s) PO TID 11/05/2014 11/18/2014 Inactive Zofran 4 mg tablet RxNorm: 186466 1 Tablet(s) PO Q4H as needed nausea 11/05/2014 01/03/2015 Inactive Duragesic 12 mcg/hr transdermal patch RxNorm: 695254 1 Patch TD Q72H 11/05/2014 02/04/2015 Inactive Imitrex 100 mg tablet RxNorm: 198708 1 Tablet(s) PO q 12 hours 11/04/2014 04/15/2015 Inactive naproxen 500 mg tablet RxNorm: 937629 1 Tablet(s) PO BID 10/30/2014 11/01/2014 Inactive meloxicam 15 mg tablet RxNorm: 395023 TAKE ONE TABLET BY MOUTH DAILY 10/04/2014 03/02/2015 Inactive Vesicare 5 mg tablet RxNorm: 612574 TAKE ONE TABLET BY MOUTH AT BEDTIME 09/16/2014 07/16/2015 Inactive Vitamin D2 50,000 unit capsule RxNorm: 978016 1 Capsule(s) PO QW 09/06/2014 07/16/2015 Inactive once weekly x 12 weeks tamsulosin ER 0.4 mg capsule,extended release 24 hr RxNorm: 468037 TAKE ONE CAPSULE BY MOUTH EVERY EVENING 06/24/2014 12/20/2014 Inactive tamsulosin ER 0.4 mg capsule,extended release 24 hr RxNorm: 193416 1 Capsule(s) PO QPM 06/24/2014 01/19/2015 Inactive Vitamin D2 50,000 unit capsule RxNorm: 960680 1 Capsule(s) PO QW 05/27/2014 09/05/2014 Inactive once weekly x 12 weeks Vesicare 5 mg tablet RxNorm: 838207 1 Tablet(s) PO QHS 05/23/2014 05/22/2014 Inactive Vesicare 5 mg tablet RxNorm: 628713 1 Tablet(s) PO QHS 05/23/2014 09/15/2014 Inactive trazodone 50 mg tablet RxNorm: 816385 TAKE ONE TABLET BY MOUTH AT BEDTIME 05/13/2014 11/08/2014 Inactive trazodone 50 mg tablet RxNorm: 264026 TAKE ONE TABLET BY MOUTH AT BEDTIME 05/13/2014 11/08/2014 Inactive hydrochlorothiazide 25 mg tablet RxNorm: 170620 1 Tablet(s) PO QAM 04/18/2014 01/12/2015 Inactive Vitamin D2 50,000 unit capsule RxNorm: 114455 TAKE ONE CAPSULE BY MOUTH ONCE WEEKLY FOR 12 WEEKS 04/09/2014 05/14/2014 Inactive trazodone 50 mg tablet RxNorm: 649258 1 Tablet(s) PO QHS 02/22/2014 05/12/2014 Inactive trazodone 50 mg tablet RxNorm: 445552 1 Tablet(s) PO QHS 02/22/2014 02/21/2014 Inactive Vitamin D2 50,000 unit capsule RxNorm: 183361 TAKE ONE CAPSULE BY MOUTH ONCE WEEKLY FOR 12 WEEKS 02/07/2014 03/06/2014 Inactive meloxicam 15 mg tablet RxNorm: 730609 TAKE ONE TABLET BY MOUTH ONCE A DAY 02/07/2014 08/05/2014 Inactive meloxicam 15 mg tablet RxNorm: 190098 TAKE ONE TABLET BY MOUTH ONCE A DAY 02/07/2014 2014 Inactive clotrimazole 1 % topical cream RxNorm: 295183 1 Application TOP BID 12/25/2013 07/16/2015 Inactive Diflucan 150 mg tablet RxNorm: 222079 1 Tablet(s) PO daily 12/25/2013 12/31/2013 Inactive tamsulosin ER 0.4 mg capsule,extended release 24 hr RxNorm: 159390 1 Capsule(s) PO QPM 11/28/2013 06/23/2014 Inactive cyanocobalamin (vit B-12) 1,000 mcg/mL injection solution RxNorm: 999779 1 Milliliter(s) Inj 11/28/2013 12/12/2014 Inactive Vitamin B-12 1,000 mcg/mL injection solution RxNorm: 425419 1 Milliliter(s) Inj monthly 11/21/2013 02/13/2015 Inactive please give syringes for injections Vitamin D2 50,000 unit capsule RxNorm: 299712 1 Capsule(s) PO QW x 12 weeks 11/21/2013 02/06/2014 Inactive [SAVINGS FOR UNINSURED PATIENTS -- to take addtional 2000 units daily Vitamin B-12 1,000 mcg/mL injection solution RxNorm: 421308 1 Milliliter(s) Inj monthly 11/21/2013 11/20/2013 Inactive meloxicam 15 mg tablet RxNorm: 070177 1 Tablet(s) PO daily 11/20/2013 11/19/2013 Inactive [SAVINGS FOR UNINSURED PATIENTS -- BIN:702118, PCN: ASPROD1, Group: [id number], ID# [id number], Process claim through [employer], for questions: . THIS IS NOT INSURANCE.] meloxicam 15 mg tablet RxNorm: 666947 1 Tablet(s) PO daily 11/20/2013 02/06/2014 Inactive [SAVINGS FOR UNINSURED PATIENTS -- BIN:803511, PCN: ASPROD1, Group: [id number], ID# [id number], Process claim through [employer], for questions: . THIS IS NOT INSURANCE.] meloxicam 15 mg tablet RxNorm: 674697 1 Tablet(s) PO daily 11/20/2013 11/19/2013 Inactive Voltaren 1 % topical gel RxNorm: 941744 4 Application TOP QID apply to back, affected joints four times daily 11/14/2013 11/20/2013 Inactive Toprol XL 25 mg tablet,extended release RxNorm: 735643 1 Tablet(s) PO daily No Start Date Active trazodone 50 mg tablet RxNorm: 438878 1 Tablet(s) PO QHS No Start Date Active Vitamin D2 50,000 unit capsule RxNorm: 681046 1 Capsule(s) PO QW No Start Date 05/26/2014 Inactive once weekly x 12 weeks Vitamin D2 50,000 unit capsule RxNorm: 646205 1 Capsule(s) PO QW No Start Date 11/20/2013 Inactive gabapentin 300 mg capsule RxNorm: 850863 1 Capsule(s) PO TID No Start Date 03/28/2017 Inactive Vesicare 10 mg tablet RxNorm: 723867 1 Tablet(s) PO QHS No Start Date 03/14/2016 Inactive Vitamin D3 5,000 unit tablet RxNorm: 225569 1 Tablet(s) PO daily No Start Date 08/11/2015 Inactive Celebrex 200 mg capsule RxNorm: 593823 1 Capsule(s) PO BID No Start Date 07/19/2016 Inactive Imitrex 50 mg tablet RxNorm: 647494 1 Tablet(s) PO now and may repeat up to four times in 24 hours No Start Date 11/03/2014 Inactive Zofran 4 mg tablet RxNorm: 171959 1 Tablet(s) PO Q8 as needed nausea and vomitting No Start Date 10/15/2015 Inactive Phenergan 25 mg tablet RxNorm: 349600 1 Tablet(s) PO now No Start Date 04/15/2015 Inactive Tums oral RxNorm: 294022 oral No Start Date 10/15/2015 Inactive Medication Administered Medication Codes Instructions Start Date Status cyanocobalamin (vit B-12) 1,000 mcg/mL injection solution RxNorm: 849846 1Milliliter 11/28/2013 No longer Active Immunizations Vaccine Codes Date Status Influenza CVX: 141 04/06/2017 completed PPD Unknown 07/03/2015 completed Zoster CVX: 121 11/29/2014 completed Influenza CVX: 141 03/26/2013 completed Assessments Condition Codes Effective Dates Localized edema ICD-10: R60.0 ICD-9: 782.3 06/07/2017 Essential (primary) hypertension ICD-10: I10 ICD-9: 401.9 06/07/2017 Cellulitis of left lower limb ICD-10: L03.116 ICD-9: 682.7 06/07/2017 Tinea pedis ICD-10: B35.3 ICD-9: 110.4 05/19/2017 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 05/19/2017 Rash and other nonspecific skin eruption ICD-10: R21 ICD-9: 782.1 05/09/2017 Body mass index (BMI) 36.0-36.9, adult ICD-10: Z68.36 ICD-9: V85.36 02/17/2017 Muscle weakness (generalized) ICD-10: M62.81 ICD-9: 728.87 02/17/2017 Family history of ischemic heart disease and other diseases of the circulatory system ICD-10: Z82.49 ICD-9: V19.8 02/17/2017 Pain in left shoulder ICD-10: M25.512 ICD-9: 719.41 10/19/2016 Other obesity due to excess calories ICD-10: [...] Reason For Visit Effective Dates Notes hypertension 06/07/2017 left top of foot hypertension [...] recently went to an eye doctor in [place]. Reports that he did have hemorrhaging in his right eye which is getting better. headache 04/18/2014 Pt states he recently went to an eye doctor in [place] shortness of breath 02/21/2014 blisters 12/25/2013 insomnia 11/28/2013 back pain 11/14/2013 Results Observation Observation Code Item Item Code Result Date %Hba1C Fba941 % HbA1c 82093- 6 6.2 % 06/27/2017 %Hba1C Vjc426 Gluc Ave 131 mg/dL 06/27/2017 Lipid Ord30 CHOL 153 mg/dL 10/20/2016 Lipid Ord30 HDL 34.0 mg/dl 10/20/2016 Lipid Ord30 TRIG 123 mg/dL 10/20/2016 Lipid Ord30 LDL 94 mg/dL 10/20/2016 Lipid Ord30 C/HDL 4.5 Ratio 10/20/2016 Cbc With Differential Ord2 WBC 4.54 [...] 29.0 pg 10/20/2016 Cbc With Differential Ord2 [place]% 9.0 % 10/20/2016 Cbc With Differential Ord2 [...] 1.33 K/ul 10/20/2016 Cbc With Differential Ord2 [place] ABS# 0.4 K/ul 10/20/2016 Cbc With Differential Ord2 Eos ABS# 0.2 K/ul 10/20/2016 Cbc With Differential Ord2 Baso ABS# 0.0 K/ul 10/20/2016 B12 Efq410 B12 544.00 pg/ml 10/20/2016 Tsh Ord6 hTSH II 1.56 uIU/mL 10/20/2016 Comp Metabolic Tit208 NA 143 mEq/L 10/20/2016 Comp Metabolic Iyf639 K 4.6 mEq/L 10/20/2016 Comp Metabolic Lix765 CL 104 mEq/L 10/20/2016 Comp Metabolic Pyl562 CO2 31.0 mEq/L 10/20/2016 Comp Metabolic Mkt727 ANION GAP 13 10/20/2016 Comp Metabolic Buc351 GLUCOSE 117 mg/dL 10/20/2016 Comp Metabolic Qso935 Creat 1.1 mg/dL 10/20/2016 Comp Metabolic Pbn223 eGFR 74 ml/min/1.73m2 10/20/2016 Comp Metabolic Jnf313 BUN 27 mg/dL 10/20/2016 Comp Metabolic Xrc375 B/C Ratio 25.7 Ratio 10/20/2016 Comp Metabolic Gmg415 CALCIUM 9.3 mg/dL 10/20/2016 Comp Metabolic Toq708 ALK PHOS 47 U/L 10/20/2016 Comp Metabolic Yhl646 AST(SGOT) 18 U/L 10/20/2016 Comp Metabolic Vhp593 ALT(SGPT) 22 U/L 10/20/2016 Comp Metabolic Pdy923 BILI T 0.5 mg/dL 10/20/2016 Comp Metabolic Byu495 ALBUMIN 3.9 g/dL 10/20/2016 Comp Metabolic Kun741 TPRO 6.5 g/dL 10/20/2016 Comp Metabolic Zrv155 GLOB 2.6 g/dL 10/20/2016 Comp Metabolic Cpy091 A/G Ratio 1.5 Ratio 10/20/2016 Comp Metabolic Cmn087 Osmo 291 mOsmo 10/20/2016 Lipid Ord30 CHOL 172 mg/dL 05/13/2016 Lipid Ord30 HDL 31.0 mg/dl 05/13/2016 Lipid Ord30 TRIG 141 mg/dL 05/13/2016 Lipid Ord30 LDL 113 mg/dL 05/13/2016 Lipid Ord30 C/HDL 5.5 Ratio 05/13/2016 Comp Metabolic Nbq402 NA 138 mEq/L 05/13/2016 Comp Metabolic Nft993 K 4.2 mEq/L 05/13/2016 Comp Metabolic Sbj219 CL 102 mEq/L 05/13/2016 Comp Metabolic Fgi826 CO2 30.0 mEq/L 05/13/2016 Comp Metabolic Mlk470 ANION GAP 10 05/13/2016 Comp Metabolic Qwb430 GLUCOSE 113 mg/dL 05/13/2016 Comp Metabolic Eyl060 Creat 1.0 mg/dL 05/13/2016 Comp Metabolic Cyh424 eGFR 77 ml/min/1.73m2 05/13/2016 Comp Metabolic Lmp331 BUN 26 mg/dL 05/13/2016 Comp Metabolic Szo200 B/C Ratio 25.5 Ratio 05/13/2016 Comp Metabolic Pky104 CALCIUM 9.7 mg/dL 05/13/2016 Comp Metabolic Dgt984 ALK PHOS 51 U/L 05/13/2016 Comp Metabolic Dcf780 AST(SGOT) 17 U/L 05/13/2016 Comp Metabolic Alt883 ALT(SGPT) 20 U/L 05/13/2016 Comp Metabolic Rpd907 BILI T 0.6 mg/dL 05/13/2016 Comp Metabolic Hod602 ALBUMIN 4.0 g/dL 05/13/2016 Comp Metabolic Pms895 TPRO 6.6 g/dL 05/13/2016 Comp Metabolic Vwu353 GLOB 2.6 g/dL 05/13/2016 Comp Metabolic Jat513 A/G Ratio 1.6 Ratio 05/13/2016 Comp Metabolic Yuv159 Osmo 281 mOsmo 05/13/2016 Cbc With Differential Ord2 WBC 4.67 [...] 29.3 pg 02/11/2016 Cbc With Differential Ord2 [place]% 7.7 % 02/11/2016 Cbc With Differential Ord2 [...] 1.18 K/ul 02/11/2016 Cbc With Differential Ord2 [place] ABS# 0.4 K/ul 02/11/2016 Cbc With Differential Ord2 Eos ABS# 0.1 K/ul 02/11/2016 Cbc With Differential Ord2 Baso ABS# 0.0 K/ul 02/11/2016 Comp Metabolic Ptk044 NA 138 mEq/L 02/11/2016 Comp Metabolic Rrp517 K 4.0 mEq/L 02/11/2016 Comp Metabolic Iss816 CL 97 mEq/L 02/11/2016 Comp Metabolic Sgm041 CO2 32.0 mEq/L 02/11/2016 Comp Metabolic Joc525 ANION GAP 13 02/11/2016 Comp Metabolic Occ262 GLUCOSE 117 mg/dL 02/11/2016 Comp Metabolic Vaf536 Creat 1.0 mg/dL 02/11/2016 Comp Metabolic Pjx541 eGFR 81 ml/min/1.73m2 02/11/2016 Comp Metabolic Tps890 BUN 21 mg/dL 02/11/2016 Comp Metabolic Ikz051 B/C Ratio 21.4 Ratio 02/11/2016 Comp Metabolic Lpk237 CALCIUM 9.2 mg/dL 02/11/2016 Comp Metabolic Sey336 ALK PHOS 48 U/L 02/11/2016 Comp Metabolic Mzd870 AST(SGOT) 18 U/L 02/11/2016 Comp Metabolic Zpe723 ALT(SGPT) 22 U/L 02/11/2016 Comp Metabolic Iay538 BILI T 0.5 mg/dL 02/11/2016 Comp Metabolic Vty796 ALBUMIN 3.9 g/dL 02/11/2016 Comp Metabolic Usk335 TPRO 6.3 g/dL 02/11/2016 Comp Metabolic Mgh712 GLOB 2.5 g/dL 02/11/2016 Comp Metabolic Iyh083 A/G Ratio 1.6 Ratio 02/11/2016 Comp Metabolic Kgl044 Osmo 280 mOsmo 02/11/2016 Lipid Ord30 CHOL 163 mg/dL 02/11/2016 Lipid Ord30 HDL 35.0 mg/dl 02/11/2016 Lipid Ord30 TRIG 200 mg/dL 02/11/2016 Lipid Ord30 LDL 88 mg/dL 02/11/2016 Lipid Ord30 C/HDL 4.7 Ratio 02/11/2016 %Hba1C Uco522 % HbA1c 59332- 6 6.5 % 02/11/2016 %Hba1C Lqr663 Gluc Ave 140 mg/dL 02/11/2016 Tsh Ord6 hTSH II 2.07 uIU/mL 02/11/2016 B12 Ndh972 B12 563.00 pg/ml 02/11/2016 Culture Urine [id number] URINE CULTURE SEE NOTES 02/10/2016 Culture Urine [id number] Continued Results 02/10/2016 Urine Culture Ucult Complete [...] hours from collection if refrigerated) 11/04/2015 %Hba1C Sfe881 % HbA1c 49747- 6 6.4 % 04/16/2015 %Hba1C Mgb447 Gluc Ave 137 mg/dL 04/16/2015 Comp Metabolic Dqf791 NA 136 mEq/L 02/07/2015 Comp Metabolic Els753 K 3.9 mEq/L 02/07/2015 Comp Metabolic Wbm384 CL 98 mEq/L 02/07/2015 Comp Metabolic Xtl296 CO2 31.0 mEq/L 02/07/2015 Comp Metabolic Njm673 ANION GAP 11 02/07/2015 Comp Metabolic Sfa271 GLUCOSE 139 mg/dL 02/07/2015 Comp Metabolic Hbt954 Creat 0.9 mg/dL 02/07/2015 Comp Metabolic Jll097 eGFR 87 ml/min/1.73m2 02/07/2015 Comp Metabolic Vox291 BUN 20 mg/dL 02/07/2015 Comp Metabolic Won957 B/C Ratio 21.7 Ratio 02/07/2015 Comp Metabolic Mkq645 CALCIUM 9.7 mg/dL 02/07/2015 Comp Metabolic Wpo955 ALK PHOS 55 U/L 02/07/2015 Comp Metabolic Ceu437 AST(SGOT) 20 U/L 02/07/2015 Comp Metabolic Ivu391 ALT(SGPT) 27 U/L 02/07/2015 Comp Metabolic Usl112 BILI T 0.5 mg/dL 02/07/2015 Comp Metabolic Qva559 ALBUMIN 4.3 g/dL 02/07/2015 Comp Metabolic Gzo859 TPRO 6.9 g/dL 02/07/2015 Comp Metabolic Vam684 GLOB 2.6 g/dL 02/07/2015 Comp Metabolic Oqw770 A/G Ratio 1.7 Ratio 02/07/2015 Comp Metabolic Jwp855 Osmo 277 mOsmo 02/07/2015 Cbc With Differential [...] Ord6 hTSH II 3.33 uIU/mL 02/07/2015 VIT B 12 [id number] VIT B 12 479 PG/ML 05/23/2014 VIT D TOTL [id number] VIT D TOTL 29 NG/ML 05/23/2014 A1C HPLC [id number] A1C HPLC 44679-3 6.0 % 05/23/2014 Review of Systems System Result Effective Dates Constitutional No recent illness 06/07/2017 Constitutional No [...] None Procedures Procedure Codes Date ROUTINE VENIPUNCTURE CPT- 4: 54826 05/23/2014 THER/PROPH/DIAG INJ SC/IM CPT-4: 28338 11/28/2013 VITAMIN B12 INJECTION CPT- 4: J3420 11/28/2013 Vital Signs Date Vital 06/07/2017 Blood Pressure 1: 138/86 Code: 8480-6 BMI: 36.3 Code: 47556-6 Heart Rate 1: 66 bpm Height: 6' SpO2: 95% Weight: 268 lbs 05/19/2017 Blood Pressure 1: 152/84 Code: 8480-6 BMI: 36.8 Code: 76681-8 Heart Rate 1: 70 bpm Height: 6' SpO2: 93% Weight: 271 lbs 05/09/2017 Blood Pressure 1: 138/76 Code: 8480-6 BMI: 36.6 Code: 02997-6 Heart Rate 1: 79 bpm Height: 6' SpO2: 93% Weight: 270 lbs 04/25/2017 Blood Pressure 1: 150/80 Code: 8480-6 Heart Rate 1: 58 bpm Height: SpO2: 94% Weight: 2017 Blood Pressure 1: 138/80 Code: 8480-6 BMI: 36.5 Code: 58570-2 Heart Rate 1: 76 bpm Height: 6' SpO2: 96% Weight: 269 lbs 03/29/2017 Blood Pressure 1: 118/68 Code: 8480-6 BMI: 36.9 Code: 21760-9 Heart Rate 1: 61 bpm Height: 6' SpO2: 95% Weight: 272 lbs 03/17/2017 Blood Pressure 1: 140/78 Code: 8480-6 BMI: 36.8 Code: 77407-4 Heart Rate 1: 91 bpm Height: 6' SpO2: 93% Weight: 271 lbs 03/08/2017 Blood Pressure 1: 152/84 Code: 8480-6 BMI: 36.8 Code: 35217-3 Heart Rate 1: 72 bpm Height: 6' SpO2: 92% Temperature: 36.6 (C) / 97.8 (F) Weight: 271 lbs 02/17/2017 Blood Pressure 1: 110/64 Code: 8480-6 BMI: 36.5 Code: 64288-1 Heart Rate 1: 62 bpm Height: 6' SpO2: 96% Weight: 269 lbs 01/18/2017 Blood Pressure 1: 140/80 Code: 8480-6 BMI: 36.5 Code: 52850-8 Heart Rate 1: 62 bpm Height: 6' SpO2: 94% Weight: 269 lbs 10/19/2016 Blood Pressure 1: 120/80 Code: 8480-6 BMI: 35.9 Code: 95123-5 Heart Rate 1: 64 bpm Height: 6' SpO2: 97% Weight: 265 lbs 08/17/2016 Blood Pressure 1: 112/76 Code: 8480-6 BMI: 36.1 Code: 52515-7 Heart Rate 1: 65 bpm Height: 6' SpO2: 97% Weight: 266 lbs 07/20/2016 Blood Pressure 1: 126/78 Code: 8480-6 BMI: 35.5 Code: 68567-1 Heart Rate 1: 60 bpm Height: 6' SpO2: 95% Weight: 262 lbs 04/19/2016 Blood Pressure 1: 132/78 Code: 8480-6 BMI: 35.1 Code: 54742-3 Heart Rate 1: 65 bpm Height: 6' SpO2: 98% Weight: 259 lbs 01/19/2016 Blood Pressure 1: 140/64 Code: 8480-6 BMI: 34.4 Code: 76256-6 Heart Rate 1: 61 bpm Height: 6' SpO2: 97% Weight: 254 lbs 10/16/2015 Blood Pressure 1: 108/66 Code: 8480-6 BMI: 35.3 Code: 38012-6 Heart Rate 1: 65 bpm Height: 6' SpO2: 96% Weight: 260 lbs 07/17/2015 Blood Pressure 1: 136/74 Code: 8480-6 BMI: 35.8 Code: 82299-6 Heart Rate 1: 59 bpm Height: 6' SpO2: 97% Weight: 263 lbs 13 07/03/2015 Weight: 265 lbs 04/16/2015 Blood Pressure 1: 130/82 Code: 8480-6 BMI: 36.1 Code: 58484-7 Heart Rate 1: 7694 bpm Height: 6' SpO2: 94% Weight: 266 lbs 02/19/2015 Blood Pressure 1: 160/90 Code: 8480-6 BMI: 35.8 Code: 99875-9 Heart Rate 1: 78 bpm Height: 6' SpO2: 94% Weight: 264 lbs 11/20/2014 Blood Pressure 1: 140/96 Code: 8480-6 BMI: 34.6 Code: 52479-0 Heart Rate 1: 92 bpm Height: 6' SpO2: 95% Weight: 255 lbs 11/05/2014 Blood Pressure 1: 132/70 Code: 8480-6 BMI: 34.6 Code: 12154-0 Heart Rate 1: 96 bpm Height: 6' SpO2: 98% Weight: 255 lbs 09/19/2014 Blood Pressure 1: 152/86 Code: 8480-6 BMI: 35.8 Code: 00282-8 Heart Rate 1: 82 bpm Height: 6' SpO2: 95% Weight: 264 lbs 07/24/2014 Blood Pressure 1: 142/82 Code: 8480-6 BMI: 34.7 Code: 81046-6 Heart Rate 1: 72 bpm Height: 6' Weight: 256 lbs 05/23/2014 Blood Pressure 1: 150/82 Code: 8480-6 BMI: 33.4 Code: 66592-7 Heart Rate 1: 68 bpm Height: 6' Weight: 246 lbs 04/18/2014 Blood Pressure 1: 132/84 Code: 8480-6 BMI: 33.2 Code: 10865-5 Heart Rate 1: 80 bpm Height: 6' Weight: 245 lbs 02/21/2014 Blood Pressure 1: 138/82 Code: 8480-6 BMI: 32.4 Code: 16366-7 Heart Rate 1: 85 bpm Height: 6' SpO2: 98% Weight: 239 lbs 12/25/2013 Blood Pressure 1: 146/80 Code: 8480-6 BMI: 30.5 Code: 49671-7 Heart Rate 1: 100 bpm Height: 6' Weight: 225 lbs 11/28/2013 Blood Pressure 1: 120/64 Code: 8480-6 BMI: 30.4 Code: 91015-1 Heart Rate 1: 68 bpm Height: 6' Weight: 224 lbs 11/14/2013 Blood Pressure 1: 124/80 Code: 8480-6 BMI: 30.0 Code: 40102-6 Heart Rate 1: 76 bpm Height: 6' Weight: 221 lbs Functional Status No Functional Status data History of Present Illness Symptom Name Status Result Effective Date Notes hypertension Quality chronic 06/07/2017 None hypertension Quality [...] Maxitrol and Polytrim seeing eye dr in [place]. Reports eye still feels irritated. headache Quality [...] Maxitrol and Polytrim seeing eye dr in [place]. Reports eye still feels irritated. headache Quality [...] data Encounters Encounter Performer Location Codes Date ([id number]) 80857 EST. PATIENT, LEVEL III Diagnosis: Essential (primary) hypertension[ICD10: I10] Diagnosis: Localized edema[ICD10: R60.0] Diagnosis: Cellulitis of left lower limb[ICD10: L03.116] [facility] CPT-4: 57034 06/07/2017 ([id number]) 96306 EST. 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 PATIENT, LEVEL II Diagnosis: Rash and other nonspecific skin eruption[ICD10: R21] Glory Long MD, [facility] CPT-4: 04965 05/09/2017 ([id number]) 50767 EST. PATIENT, LEVEL II Diagnosis: Rash and other nonspecific skin eruption[ICD10: R21] Glory Long MD, [facility] CPT-4: 95730 04/25/2017 ([id number]) 98727 EST. PATIENT, LEVEL III Diagnosis: Cellulitis of left lower limb[ICD10: L03.116] Diagnosis: Rash and other nonspecific skin eruption[ICD10: R21] Glory Long MD, [facility] CPT-4: 57384 2017 ([id number]) 06155 EST. PATIENT, LEVEL III Diagnosis: Cellulitis of left lower limb[ICD10: L03.116] Diagnosis: Rash and other nonspecific skin eruption[ICD10: R21] Glory Long MD, [facility] CPT-4: 81935 03/29/2017 88629 EST. PATIENT, LEVEL IV Diagnosis: Cellulitis of left lower limb[ICD10: L03.116] Antoinette Long MD, [facility] CPT-4: 67205 03/17/2017 ([id number]) 07170 EST. PATIENT, LEVEL III Diagnosis: Rash and other nonspecific skin eruption[ICD10: R21] Glory Long MD, [facility] CPT-4: 38622 03/08/2017 85892 EST. PATIENT, LEVEL IV Diagnosis: Essential (primary) hypertension[ICD10: I10] Diagnosis: Muscle weakness (generalized)[ICD10: M62.81] Diagnosis: Body mass index (BMI) 36.0-36.9, adult[ICD10: Z68.36] Diagnosis: Family history of ischemic heart disease and other diseases of the circulatory system[ICD10: Z82.49] Antoinette Long MD, [facility] CPT-4: 36622 02/17/2017 ([id number]) 03947 EST. PATIENT, LEVEL IV Diagnosis: Essential (primary) hypertension[ICD10: I10] Diagnosis: Muscle weakness (generalized)[ICD10: M62.81] Quyen Long MD, [facility] CPT-4: 73709 01/18/2017 ([id number]) 53379 EST. 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 PATIENT, LEVEL III Diagnosis: Pain in left shoulder[ICD10: M25.512] Diagnosis: Rash and other nonspecific skin eruption[ICD10: R21] Glory Long MD, [facility] CPT-4: 77178 08/17/2016 ([id number]) 11695 EST. PATIENT, LEVEL IV Diagnosis: Essential (primary) hypertension[ICD10: I10] Diagnosis: Pain in left shoulder[ICD10: M25.512] Quyen Long MD, [facility] CPT-4: 62705 07/20/2016 ([id number]) 38953 EST. 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 PATIENT, LEVEL IV Diagnosis: Essential (primary) hypertension[ICD10: I10] Diagnosis: Other abnormal glucose[ICD10: R73.09] Diagnosis: Gastro-esophageal reflux disease without esophagitis[ICD10: K21.9] Diagnosis: Obesity, unspecified[ICD10: E66.9] Quyen Long MD, [facility] CPT- 4: 64072 04/16/2015 ([id number]) 15415 EST. PATIENT, LEVEL IV Diagnosis: ESSENTIAL HYPERTENSION[ICD9: 401.9] Diagnosis: OBESITY[ICD9: 278.00] Diagnosis: Post-polio limb muscle weakness[ICD9: 728.87] Quyen Long MD, [facility] CPT-4: 12854 02/19/2015 ([id number]) 45103 EST. PATIENT, LEVEL IV Diagnosis: Shingles outbreak[ICD9: 053.9] Diagnosis: ESSENTIAL HYPERTENSION[ICD9: 401.9] Diagnosis: Earache[ICD9: 388.70] Quyen Long MD, [facility] CPT-4: 96948 11/20/2014 ([id number]) 83321 EST. PATIENT, LEVEL III Diagnosis: Shingles outbreak[ICD9: 053.9] Diagnosis: Face pain[ICD9: 784.0] Diagnosis: Pain, eye, right[ICD9: 379.91] Quyen Long MD, [facility] CPT-4: 07203 11/05/2014 [id number]) 82424 EST. PATIENT, LEVEL V Diagnosis: Post-polio limb muscle weakness[ICD9: 728.87] Diagnosis: Post-polio syndrome[ICD9: 138] Diagnosis: Leg weakness[ICD9: 729.89] Diagnosis: Weakness[ICD9: 780.79] Diagnosis: Foot drop[ICD9: 736.79] Quyen Long MD, [facility] CPT-4: 87789 09/19/2014 [id number]) 71478 EST. PATIENT, LEVEL IV Diagnosis: ESSENTIAL HYPERTENSION[ICD9: 401.9] Diagnosis: Carotid bruit[ICD9: 785.9] Diagnosis: Seborrheic dermatitis[ICD9: 690.10] Diagnosis: Post-polio syndrome[ICD9: 138] Diagnosis: Vitamin D deficiency[ICD9: 268.9] Quyen Long MD, [facility] CPT- 4: 37801 07/24/2014 ([id number]) 57582 EST. PATIENT, LEVEL IV Diagnosis: Neck pain[ICD9: 723.1] Diagnosis: Post-polio syndrome[ICD9: 138] Diagnosis: Vitamin D deficiency[ICD9: 268.9] Diagnosis: Vitamin B12 deficiency[ICD9: 266.2] Diagnosis: Nocturia[ICD9: 788.43] Diagnosis: Leg weakness[ICD9: 729.89] Diagnosis: Elevated blood sugar[ICD9: 790.29] Glory Long MD, [facility] CPT- 4: 04450 05/23/2014 [id number]) 76616 EST. PATIENT, LEVEL IV Diagnosis: ESSENTIAL HYPERTENSION[ICD9: 401.9] Diagnosis: HEADACHE[ICD9: 784.0] Diagnosis: EDEMA[ICD9: 782.3] Quyen Long MD, [facility] CPT-4: 17834 04/18/2014 47803 EST. PATIENT, LEVEL IV Diagnosis: Insomnia[ICD9: 780.52] Diagnosis: Post-polio syndrome[ICD9: 138] Diagnosis: Vitamin D deficiency[ICD9: 268.9] Diagnosis: Nocturnal hypoxemia[ICD9: 799.02] [facility] CPT- 4: 50941 02/21/2014 ([id number]) 04954 EST. PATIENT, LEVEL III Diagnosis: Tinea pedis[ICD9: 110.4] Diagnosis: Post-polio limb muscle weakness[ICD9: 728.87] [facility] CPT-4: 82731 12/25/2013 ([id number]) 00004 EST. PATIENT, LEVEL IV Diagnosis: Insomnia[ICD9: 780.52] Diagnosis: Vitamin B12 deficiency (dietary) anemia[ICD9: 281.1] Diagnosis: VITAMIN D DEFICIENCY[ICD9: 268.9] Diagnosis: Weakness[ICD9: 780.79] Quyen Long MD, [facility] CPT-4: 29584 11/28/2013 ([id number]) OFFICE/OUTPATIENT VISIT NEW Diagnosis: Post-polio limb muscle weakness[ICD9: 728.87] Diagnosis: Post-polio syndrome[ICD9: 138] Diagnosis: Insomnia[ICD9: 780.52] Diagnosis: Arrhythmia[ICD9: 427.9] Quyen Long MD, [facility] CPT-4: 36523 11/14/2013 Plan of Care Planned Activity Notes [...] lower leg. 06/07/2017 Appointment: Quyen Long WPtel: [address] [place], [place] [phone] (15 min) Moderate 06/07/2017 Patient Education: Patient [...] compression recommended. 05/19/2017 Appointment: Quyen Long WPtel: [facility] (15 min) Moderate 05/19/2017 Patient Education: Patient Medication Summary Completed 05/19/2017 Patient Education: Obesity Completed 05/19/2017 Patient Education: Hypertension Completed 05/19/2017 Visit Plan: Rash-left qojt-dnsvrizx-igeimopdzy patient to continue using ketoconazole plus betamethasone equal parts and increase to TID-leave foot open to air as much as possible-follow up in 2 weeks, sooner if needed. 05/09/2017 Appointment: Glory Dalton WPtel: [phone] (30 min) Complex 05/09/2017 Patient Education: Patient Medication Summary Completed 05/09/2017 Patient Education: Obesity Completed 05/09/2017 Visit Plan: Rash-left foot-Dr Long in to evaluate rash-instructed patient to start using ketoconazole plus betamethasone equal parts TID -follow up in 2 weeks, sooner if needed. 04/25/2017 Appointment: Glory Dalton WPtel: [address] [place], [place] [phone] (30 min) Complex 04/25/2017 Patient Education: Patient Medication Summary Completed 04/25/2017 Visit Plan: Cellulitis of left foot-no longer draining-no open areas-no excoriation-slightly red-okay to d/c all treatments-keep clean and monitor-call if redness does not resolve Rash-resolved 2017 Appointment: Glory Dalton WPtel: [phone] (30 min) Complex 2017 Patient Education: Patient Medication Summary Completed 2017 Patient Education: Obesity Completed 2017 Visit Plan: Cellulitis-left foot-MSSA crqstpob-gjnofmamq-evdje air in the evening-continue bactroban ointment twice daily-stop using alcohol on foot-no papertowels or abrasives to foot Haxy-ujac-dw for betamethasone provided and instructed on use 03/29/2017 Appointment: Glory Dalton WPtel: [address] [place] [phone] (30 min) Complex 03/29/2017 Patient Education: Patient Medication Summary Completed 03/29/2017 Patient Education: Obesity Completed 03/29/2017 Appointment: Glory Dalton WPtel: [address] [place], [place] [phone] [place] [address] (30 min) Complex 03/22/2017 Visit Plan: Cellulitis [...] warmth, discharge. 03/17/2017 Appointment: Antoinette Arndt WPtel: [address] [place], [place] [phone] (30 min) Complex 03/17/2017 Patient [...] the break. 01/18/2017 Appointment: Quyen Long WPtel: [phone] [facility] (15 min) Moderate 01/18/2017 Patient Education: Patient [...] and weakness. 10/19/2016 Appointment: [facility] ([facility] min) Moderate 10/19/2016 Patient Education: Patient Medication Summary Completed 10/19/2016 Patient Education: Obesity Completed 10/19/2016 Visit Plan: Left shoulder pain-hospital f/u recent shoulder surgery with Dr Wilson-doing well-sees Dr Wilson this afternoon for suture removal-pain improved Djuk-iomv-tzvalhm fungal infection-will treat with ket oconazole -follow up in 2 weeks 08/17/2016 [facility]ment[phone] [phone] [place] (30 min) Complex 08/17/2016 Patient [...] ambulating. 07/20/2016 App[facility]ment[phone] (15 min) Moderate 07/20/2016 Patient Education: [...] strengthening. 04/19/2016 App[facility]ment: [phone] (15 min) Moderate 04/19/2016 Patient Education: [...] appointment. 01/19/2016 [facility]ment[phone] (15 min) Moderate 01/19/2016 Patient Education: Patient Medication Summary Completed 01/19/2016 Patient Education: Obesity Completed 01/19/2016 Patient Education: Hypertension Completed 01/19/2016 Referral: Dr Mccauley Referral Completed 11/11/2015 Care Plan: Referral Order SNOMED-CT : [id number] Pending 11/03/2015 Visit Plan: Hypertension - well [...] injection 10/16/2015 App[facility]ment: [phone] (15 min) Moderate 10/16/2015 Patient Education: [...] - 02/19/2015 Appointment[phone] (15 min) Moderate 02/19/2015 Patient Education: [...] ear drops. 11/20/2014 Appointment: [phone] Follow up 11/20/2014 Patient Education: [...] doctor ESME. 11/05/2014 Appointment: [phone] (15 min) Moderate 11/05/2014 Patient Education: [...] foot. 09/19/2014 Appointment[phone] Follow up 09/19/2014 Patient Education: [...] deficiency - recommended repeat of vitamin d 10501nxqfa weekly x 12 weeks and increase vitamin d to 5000 units daily. 07/24/2014 Appointment: [phone] [facility] [place] Follow up 07/24/2014 Patient Education: [...] B12 level 05/23/2014 Appointment: Glory Dalton WPtel: [phone] Follow up 05/23/2014 Patient Education: Patient Medication Summary Completed 05/23/2014 Patient Education: .Cervicalgia Neck Pain Completed 05/23/2014 Appointment: Quyen Long WPtel: [address] [place], [place] [phone] Follow up 05/22/2014 Visit Plan: Edema - [...] at home. 04/18/2014 Appointment: Quyen Long WPtel: [address] [place], [place] [phone] Follow up 04/18/2014 Patient Education: Patient Medication Summary Completed 04/18/2014 Patient Education: Hypertension Completed 04/18/2014 Appointment: Quyen Long WPtel: [address] [place], [place] [phone] Follow up 02/27/2014 Visit Plan: Insomnia - Pt has been advised to increase the light in the house during the day, and start dimming the lights during the evening hours. Pt has been advised to cut out caffeine after 5pm. Daytime napping worsens night time insomnia. START TRAZODONE AND MONITOR SYMPTOMS. Vitamin D zpozeiwogm-euzwjlgh-hplxmteu vitamin D 50,000 units weekly for 12 additional weeks. Hypoxemia-continue night time oxygen 02/21/2014 Appointment: Glory Dalton WPtel: [phone] Follow up 02/21/2014 Patient Education: Patient Medication [...] on mobic. 11/28/2013 Appointment: Quyen Long WPtel: [address] [place] [phone] Follow up 11/28/2013 Patient Education: Patient Medication [...] chest xray overnight oxygen study. 11/14/2013 Appointment: EthanQuyen WPtel[facility] [facility] 11/14/2013 Patient Education: Patient Medication Summary Completed 11/14/2013 Referral: Dr Mccauley Referral Appointment Requested Instructions Comment culture rash ketoconazole to rash on foot [...] - chest xray overnight oxygen study. . pt down one pound . Tinea pedis-discussed natural expected course of [...] in one month for weight check. . Shingles - Herpes Zoster - acute [...] for arthritis, continue exercising for strengthening. . Insomnia - Pt has been advised [...] Wilson this afternoon for suture removal-pain improved Iglp-xhzq-lhpdifw fungal infection-will treat with ketoconazole -follow up [...] deficiency - recommended repeat of vitamin d [id number] weekly x 12 weeks and increase vitamin [...] START TRAZODONE AND MONITOR SYMPTOMS. Vitamin D vvyjgbbynd-xisxejyu-fmtmwrwz vitamin D 50,000 units weekly for 12 [...] up in 10 days . Cellulitis-left foot-MSSA jaeecllv-ynjntinda-qcoti air in the evening-continue bactroban ointment twice daily-stop using alcohol on foot-no papertowels or abrasives to foot Aukd-nfno-ay for betamethasone provided and instructed on use [...] therapy for his shoulder and weakness. . Hypertension - well controlled - continue [...] and dressings to lower leg. . Rash-left ztld-ulgrrysm-nuypabfeql patient to continue using ketoconazole plus betamethasone [...]
--- OUTSIDE RECORDS SUMMARY | 2018-11-10 16:53 | XMS REPORT | Continuity of Care Document ---
Author Organization Unknown Address Unknown Allergies Active Description Code Type Severity Reaction Onset Reported/Identified Relationship to Patient Clinical Status Yes No Known Drug Allergies [id number] Drug Allergy Unknown N/A 10/30/2014 Yes Penicillins [id number] Drug Allergy Unknown N/A 11/03/2014 Medications There is no data. Problems Date Dx Coded Attending Type Code Diagnosis Diagnosed By YENNI FLORES MD Ot G14 POSTPOLIO SYNDROME YENNI FLORES MD Ot R29.898 OTH SYMPTOMS AND SIGNS INVOLVING THE MUS YENNI FLORES MD Ot G14 POSTPOLIO SYNDROME YENNI FLORES MD Ot R29.898 OTH SYMPTOMS AND SIGNS INVOLVING THE MUS 12/04/2013 YENNI FLORES MD Ot 138 LATE EFFECT ACUTE POLIO 12/04/2013 YENNI FLORES MD Ot 724.5 BACKACHE NOS 12/04/2013 YENNI FLORES MD Ot 780.79 OTH MALAISE FATIGUE 12/04/2013 YENNI FLORES MD Ot V57.1 PHYSICAL THERAPY NEC 12/04/2013 YENNI FLORES MD Ot V57.21 ENCOUNTER FOR OCCUPATIONAL THERAPY 12/04/2013 YENNI FLORES MD Ot 138 LATE EFFECT ACUTE POLIO 12/04/2013 YENNI FLORES MD Ot 780.79 OTH MALAISE FATIGUE 12/04/2013 YENNI FLORES MD Ot V52.1 FITTING ARTIFICIAL LEG 02/18/2014 YENNI FLORES MD Ot 138 LATE EFFECT ACUTE POLIO 02/18/2014 YENNI FLORES MD Ot 305.1 TOBACCO USE DISORDER 03/04/2014 YENNI FLORES MD Ot 138 LATE EFFECT ACUTE POLIO 03/04/2014 YENNI FLORES MD Ot 724.5 BACKACHE NOS 03/04/2014 YENNI FLORES MD Ot 780.79 OTH MALAISE FATIGUE 03/04/2014 YENNI FLORES MD Ot V57.1 PHYSICAL THERAPY NEC 05/27/2014 YENNI FLORES MD Ot 305.1 05/27/2014 Ot 138 05/27/2014 Ot 305.1 06/25/2014 ROHAN HUTCHINS APPLE PICKER Ot 723.1 06/25/2014 ROHAN HUTCHINS APPLE PICKER Ot 788.41 06/25/2014 ROHAN HUTCHINS APPLE PICKER Ot 788.43 07/05/2014 ROHAN HUTCHINS APPLE PICKER Ot 723.1 07/05/2014 ROHAN HUTCHINS APPLE PICKER Ot 788.41 07/05/2014 ROHAN HUTCHINS APPLE PICKER Ot 788.43 07/29/2014 YENNI FLORES MD Ot 305.1 07/29/2014 Ot 138 07/29/2014 Ot 305.1 07/29/2014 ROHAN HUTCHINS APPLE PICKER Ot 723.1 07/29/2014 ROHAN HUTCHINS APPLE PICKER Ot 788.41 07/29/2014 ROHAN HUTCHINS APPLE PICKER Ot 788.43 09/03/2014 Ot 433.10 10/30/2014 Ot 138 10/30/2014 Ot 305.1 10/30/2014 CHRISTA MOYA DO Ot 346.90 MIGRAINE UNSPECIFIED W/O INTRACT MGRN W/ 10/30/2014 CHRISTA MOYA DO Ot 784.0 HEADACHE 11/03/2014 Ot 138 11/03/2014 Ot 305.1 11/03/2014 RACHELL SOLO MD Ot 346.90 MIGRAINE UNSPECIFIED W/O INTRACT MGRN W/ 07/24/2015 YENNI FLORES MD Ot 305.1 07/24/2015 Ot 138 07/24/2015 Ot 305.1 07/24/2015 ROHAN HUTCHINS APPLE PICKER Ot 723.1 07/24/2015 ROHAN HUTCHINS APPLE PICKER Ot 788.41 07/24/2015 ROHAN HUTCHINS APPLE PICKER Ot 788.43 07/24/2015 Ot 433.10 08/14/2015 ERMA GONZALEZ OFFICE MAIL CLERK Ot I65.23 08/21/2015 REMA GONZALEZ OFFICE MAIL CLERK Ot I65.23 10/06/2015 TIERRA LOO MD Ot I10 ESSENTIAL (PRIMARY) HYPERTENSION 10/06/2015 TIERRA LOO MD Ot I49.3 VENTRICULAR PREMATURE DEPOLARIZATION 10/06/2015 TIERRA LOO MD Ot I65.23 OCCLUSION AND STENOSIS OF [place] 10/23/2015 TIERRA LOO MD Ot I10 ESSENTIAL (PRIMARY) HYPERTENSION 10/23/2015 TIERRA LOO MD Ot I49.3 VENTRICULAR PREMATURE DEPOLARIZATION 10/23/2015 TIERRA LOO MD Ot I65.23 OCCLUSION AND STENOSIS OF [place] 10/28/2015 TIERRA LOO MD Ot I10 ESSENTIAL (PRIMARY) HYPERTENSION 10/28/2015 TIERRA LOO MD Ot I49.3 VENTRICULAR PREMATURE DEPOLARIZATION 10/28/2015 TIERRA LOO MD Ot I65.23 OCCLUSION AND STENOSIS OF [place] 10/28/2015 TIERRA LOO MD Ot R00.2 PALPITATIONS 10/31/2015 TIERRA LOO MD Ot I10 ESSENTIAL (PRIMARY) HYPERTENSION 10/31/2015 TIERRA LOO MD Ot I49.3 VENTRICULAR PREMATURE DEPOLARIZATION 10/31/2015 TIERRA LOO MD Ot I65.23 OCCLUSION AND STENOSIS OF [place] 11/13/2015 ALEX LYONS MD Ot M25.511 PAIN IN RIGHT SHOULDER 11/13/2015 ALEX LYONS MD Ot M25.512 PAIN IN LEFT SHOULDER 11/14/2015 TIERRA LOO MD Ot I10 ESSENTIAL (PRIMARY) HYPERTENSION 11/14/2015 TIERRA LOO MD Ot I49.3 VENTRICULAR PREMATURE DEPOLARIZATION 11/14/2015 TIERRA LOO MD Ot I65.23 OCCLUSION AND STENOSIS OF [place] 11/14/2015 TIERRA LOO MD Ot R00.2 PALPITATIONS 12/02/2015 ALEX LYONS MD Ot M25.511 PAIN IN RIGHT SHOULDER 12/02/2015 ALEX LYONS MD Ot M25.512 PAIN IN LEFT SHOULDER 12/22/2015 ALEX LYONS MD, Ot M25.511 PAIN IN RIGHT SHOULDER 12/22/2015 ALEX LYONS MD Ot M25.512 PAIN IN LEFT SHOULDER 05/19/2016 MARISSA GALLARDO, YAJAIRA Colbert Ot M75.102 UNSP ROTATR-CUFF TEAR/RUPTR OF LEFT SHOU 05/19/2016 YAJAIRA ANN MD Ot M75.42 IMPINGEMENT SYNDROME OF LEFT SHOULDER 05/19/2016 YAJAIRA ANN MD Ot Z01.818 ENCOUNTER FOR OTHER PREPROCEDURAL EXAMIN 07/28/2016 MARK GALLARDO, YENNI Conde Ot 305.1 TOBACCO USE DISORDER 07/28/2016 Ot 138 LATE EFFECT ACUTE POLIO 07/28/2016 Ot 305.1 TOBACCO USE DISORDER 07/28/2016 ROHAN HUTCHINS APPLE PICKER Ot 723.1 CERVICALGIA 07/28/2016 ROHAN HUTCHINS APPLE PICKER Ot 788.41 URINARY FREQUENCY 07/28/2016 ROHAN HUTCHINS APPLE PICKER Ot 788.43 NOCTURIA 07/28/2016 Ot 433.10 CAROTID ARTERY OCCLUSION W O CEREBRAL IN 07/28/2016 REMA GONZALEZ APRN Ot I65.23 OCCLUSION AND STENOSIS OF [place] 07/28/2016 TIERRA LOO MD Ot I10 ESSENTIAL (PRIMARY) HYPERTENSION 07/28/2016 TIERRA LOO MD Ot I49.3 VENTRICULAR PREMATURE DEPOLARIZATION 07/28/2016 TIERRA LOO MD Ot I65.23 OCCLUSION AND STENOSIS OF [place] 07/28/2016 TIERRA LOO MD Ot I10 ESSENTIAL (PRIMARY) HYPERTENSION 07/28/2016 TIERRA LOO MD Ot I49.3 VENTRICULAR PREMATURE DEPOLARIZATION 07/28/2016 TIERRA LOO MD Ot I65.23 OCCLUSION AND STENOSIS OF [place] 07/28/2016 TIERRA LOO MD Ot R00.2 PALPITATIONS 07/28/2016 ALEX LYONS MD Ot M25.511 PAIN IN RIGHT SHOULDER 07/28/2016 ALEX LYONS MD, Ot M25.512 PAIN IN LEFT SHOULDER 07/28/2016 YAJAIRA ANN MD Ot M75.102 UNSP ROTATR-CUFF TEAR/RUPTR OF LEFT SHOU 07/28/2016 YAJAIRA ANN MD Ot M75.42 IMPINGEMENT SYNDROME OF LEFT SHOULDER 07/28/2016 YAJAIRA ANN MD, Ot Z01.818 ENCOUNTER FOR OTHER PREPROCEDURAL EXAMIN 07/28/2016 YAJAIRA ANN MD, Ot M75.102 UNSP ROTATR-CUFF TEAR/RUPTR OF LEFT SHOU 07/28/2016 YAJAIRA ANN MD, Ot Z01.818 ENCOUNTER FOR OTHER PREPROCEDURAL EXAMIN 07/29/2016 YAJAIRA ANN MD Ot M75.102 UNSP ROTATR-CUFF TEAR/RUPTR OF LEFT SHOU 07/29/2016 YAJAIRA ANN MD Ot Z01.818 ENCOUNTER FOR OTHER PREPROCEDURAL EXAMIN 08/05/2016 YAJAIRA ANN MD Ot E78.5 HYPERLIPIDEMIA, UNSPECIFIED 08/05/2016 YAJAIRA ANN MD Ot G14 POSTPOLIO SYNDROME 08/05/2016 YAJAIRA ANN MD, Ot M19.012 PRIMARY OSTEOARTHRITIS, LEFT SHOULDER 08/05/2016 YAJAIRA ANN MD Ot M75.102 UNSP ROTATR-CUFF TEAR/RUPTR OF LEFT SHOU 08/05/2016 YAJAIRA ANN MD Ot M75.42 IMPINGEMENT SYNDROME OF LEFT SHOULDER 08/05/2016 YAJAIRA ANN MD Ot S43.432A SUPERIOR GLENOID LABRUM LESION OF LEFT S 08/05/2016 YAJAIRA ANN MD Ot Z11.2 ENCOUNTER FOR SCREENING FOR OTHER BACTER 08/05/2016 YAJAIRA ANN MD Ot Z79.899 OTHER EQUIPMENT MAINTENANCE SUPERINTENDENT (CURRENT) DRUG THERAPY 08/05/2016 YAJAIRA ANN MD Ot Z87.891 PERSONAL HISTORY OF NICOTINE DEPENDENCE 08/12/2016 YAJAIRA ANN MD, Ot E78.5 HYPERLIPIDEMIA, UNSPECIFIED 08/12/2016 YAJAIRA ANN MD, Ot G14 POSTPOLIO SYNDROME 08/12/2016 YAJAIRA ANN MD, Ot M19.012 PRIMARY OSTEOARTHRITIS, LEFT SHOULDER 08/12/2016 YAJAIRA ANN MD Ot M75.102 UNSP ROTATR-CUFF TEAR/RUPTR OF LEFT SHOU 08/12/2016 YAJAIRA ANN MD Ot M75.42 IMPINGEMENT SYNDROME OF LEFT SHOULDER 08/12/2016 YAJAIRA ANN MD Ot S43.432A SUPERIOR GLENOID LABRUM LESION OF LEFT S 08/12/2016 YAJAIRA NAN MD Ot Z11.2 ENCOUNTER FOR SCREENING FOR OTHER BACTER 08/12/2016 YAJAIRA ANN MD Ot Z79.899 OTHER FDC (CURRENT) DRUG THERAPY 08/12/2016 YAJAIRA ANN MD Ot Z87.891 PERSONAL HISTORY OF NICOTINE DEPENDENCE 08/14/2016 NIKOLAS GALLARDO, CASEY Huffman Ot E55.9 VITAMIN D DEFICIENCY, UNSPECIFIED 08/14/2016 NIKOLAS GALLARDO, CASEY Huffman Ot E78.5 HYPERLIPIDEMIA, UNSPECIFIED 08/14/2016 NIKOLAS GALLARDO, CASEY E Ot G14 POSTPOLIO SYNDROME 08/14/2016 NIKOLAS GALLARDO, CASEY E Ot I10 ESSENTIAL (PRIMARY) HYPERTENSION 08/14/2016 NIKOLAS GALLARDO, CASEY Huffman Ot K21.9 GASTRO-ESOPHAGEAL REFLUX DISEASE WITHOUT 08/14/2016 NIKOLAS GALLARDO, CASEY E Ot K59.00 CONSTIPATION, UNSPECIFIED 08/14/2016 NIKOLAS GALLARDO, CASEY E Ot M19.011 PRIMARY OSTEOARTHRITIS, RIGHT SHOULDER 08/14/2016 CASEY CONNOR MD Ot M19.012 PRIMARY OSTEOARTHRITIS, LEFT SHOULDER 08/14/2016 NIKOLAS GALLARDO, CASEY Huffman Ot M21.371 FOOT DROP, RIGHT FOOT 08/14/2016 NIKOLAS GALLARDO, CASEY E Ot R20.0 ANESTHESIA OF SKIN 08/27/2016 YAJAIRA ANN MD Ot M19.011 PRIMARY OSTEOARTHRITIS, RIGHT SHOULDER 08/31/2016 YAJAIRA ANN MD, Ot E78.5 HYPERLIPIDEMIA, UNSPECIFIED 08/31/2016 YAJAIRA ANN MD, Ot G14 POSTPOLIO SYNDROME 08/31/2016 YAJAIRA ANN MD, Ot M19.012 PRIMARY OSTEOARTHRITIS, LEFT SHOULDER 08/31/2016 YAJAIRA ANN MD Ot M75.102 UNSP ROTATR-CUFF TEAR/RUPTR OF LEFT SHOU 08/31/2016 YAJAIRA ANN MD Ot M75.42 IMPINGEMENT SYNDROME OF LEFT SHOULDER 08/31/2016 YAJAIRA ANN MD Ot S43.432A SUPERIOR GLENOID LABRUM LESION OF LEFT S 08/31/2016 YAJAIRA ANN MD Ot Z11.2 ENCOUNTER FOR SCREENING FOR OTHER BACTER 08/31/2016 YAJAIRA ANN MD, Ot Z79.899 OTHER FDC (CURRENT) DRUG THERAPY 08/31/2016 YAJAIRA ANN MD Ot Z87.891 PERSONAL HISTORY OF NICOTINE DEPENDENCE 09/21/2016 YAJAIRA ANN MD, Ot E78.5 HYPERLIPIDEMIA, UNSPECIFIED 09/21/2016 YAJAIRA ANN MD Ot G14 POSTPOLIO SYNDROME 09/21/2016 YAJAIRA ANN MD Ot M19.012 PRIMARY OSTEOARTHRITIS, LEFT SHOULDER 09/21/2016 YAJAIRA ANN MD, Ot M75.102 UNSP ROTATR-CUFF TEAR/RUPTR OF LEFT SHOU 09/21/2016 YAJAIRA ANN MD, Ot M75.42 IMPINGEMENT SYNDROME OF LEFT SHOULDER 09/21/2016 YAJAIRA ANN MD, Ot S43.432A SUPERIOR GLENOID LABRUM LESION OF LEFT S 09/21/2016 YAJAIRA ANN MD, Ot Z11.2 ENCOUNTER FOR SCREENING FOR OTHER BACTER 09/21/2016 YAJAIRA ANN MD, Ot Z79.899 OTHER EQUIPMENT MAINTENANCE SUPERINTENDENT (CURRENT) DRUG THERAPY 09/21/2016 YAJAIRA ANN MD, Ot Z87.891 PERSONAL HISTORY OF NICOTINE DEPENDENCE 09/27/2016 YAJAIRA ANN MD, Ot M19.011 PRIMARY OSTEOARTHRITIS, RIGHT SHOULDER 10/01/2016 YAJAIRA ANN MD, Ot M19.011 PRIMARY OSTEOARTHRITIS, RIGHT SHOULDER 10/25/2016 YAJAIRA ANN MD, Ot M19.011 PRIMARY OSTEOARTHRITIS, RIGHT SHOULDER 10/25/2016 MARK GALLARDO, YENNI Conde Ot 305.1 TOBACCO USE DISORDER 10/25/2016 Ot 138 LATE EFFECT ACUTE POLIO 10/25/2016 Ot 305.1 TOBACCO USE DISORDER 10/25/2016 ROHAN HUTCHINS APPLE PICKER Ot 723.1 CERVICALGIA 10/25/2016 ROHAN HUTCHINS APPLE PICKER Ot 788.41 URINARY FREQUENCY 10/25/2016 ROHAN HUTCHINS APPLE PICKER Ot 788.43 NOCTURIA 10/25/2016 Ot 433.10 CAROTID ARTERY OCCLUSION W O CEREBRAL IN 10/25/2016 REMA GONZALEZ APRN Ot I65.23 OCCLUSION AND STENOSIS OF [place] 10/25/2016 TIERRA LOO MD Ot I10 ESSENTIAL (PRIMARY) HYPERTENSION 10/25/2016 TIERRA LOO MD Ot I49.3 VENTRICULAR PREMATURE DEPOLARIZATION 10/25/2016 TIERRA LOO MD Ot I65.23 OCCLUSION AND STENOSIS OF [place] 10/25/2016 TIERRA LOO MD Ot I10 ESSENTIAL (PRIMARY) HYPERTENSION 10/25/2016 TIERRA LOO MD Ot I49.3 VENTRICULAR PREMATURE DEPOLARIZATION 10/25/2016 TIERRA LOO MD Ot I65.23 OCCLUSION AND STENOSIS OF [place] 10/25/2016 TIERRA LOO MD Ot R00.2 PALPITATIONS 10/25/2016 ALEX LYONS MD Ot M25.511 PAIN IN RIGHT SHOULDER 10/25/2016 ALEX LYONS MD Ot M25.512 PAIN IN LEFT SHOULDER 10/25/2016 YAJAIRA ANN MD, Ot M75.102 UNSP ROTATR-CUFF TEAR/RUPTR OF LEFT SHOU 10/25/2016 YAJAIRA ANN MD, Ot M75.42 IMPINGEMENT SYNDROME OF LEFT SHOULDER 10/25/2016 YAJAIRA ANN MD, Ot Z01.818 ENCOUNTER FOR OTHER PREPROCEDURAL EXAMIN 10/25/2016 YAJAIRA ANN MD, Ot E78.5 HYPERLIPIDEMIA, UNSPECIFIED 10/25/2016 YAJAIRA ANN MD, Ot G14 POSTPOLIO SYNDROME 10/25/2016 YAJAIRA ANN MD, Ot M19.012 PRIMARY OSTEOARTHRITIS, LEFT SHOULDER 10/25/2016 YAJAIRA ANN MD, Ot M75.102 UNSP ROTATR-CUFF TEAR/RUPTR OF LEFT SHOU 10/25/2016 YAJAIRA ANN MD, Ot M75.42 IMPINGEMENT SYNDROME OF LEFT SHOULDER 10/25/2016 YAJAIRA ANN MD, Ot S43.432A SUPERIOR GLENOID LABRUM LESION OF LEFT S 10/25/2016 YAJAIRA ANN MD Ot Z11.2 ENCOUNTER FOR SCREENING FOR OTHER BACTER 10/25/2016 YAJAIRA ANN MD, Ot Z79.899 OTHER [facility] (CURRENT) DRUG THERAPY 10/25/2016 YAJAIRA ANN MD, Ot Z87.891 PERSONAL HISTORY OF NICOTINE DEPENDENCE 10/25/2016 YAJAIRA ANN MD, Ot M19.011 PRIMARY OSTEOARTHRITIS, RIGHT SHOULDER 10/25/2016 TERRELL HOLLAND MD, Ot G14 POSTPOLIO SYNDROME 10/25/2016 TERRELL HOLLAND MD, Ot I10 ESSENTIAL (PRIMARY) HYPERTENSION 10/25/2016 TERRELL HOLLAND MD, Ot S01.112A LACERATION W/O FB OF LEFT EYELID AND PER 10/25/2016 TERRELL HOLLAND MD Ot W01.0XXA FALL SAME LEV FROM SLIP/TRIP W/O STRIKE 10/25/2016 TERRELL HOLLAND MD Ot Y92.[address] IN INTERMEDIATE PLACE 10/25/2016 TERRELL HOLLAND MD Ot Y99.8 OTHER EXTERNAL CAUSE STATUS 10/25/2016 TERRELL HOLLAND MD Ot Z23 ENCOUNTER FOR IMMUNIZATION 10/25/2016 TERRELL HOLLAND MD Ot Z79.899 OTHER [facility] (CURRENT) DRUG THERAPY 10/25/2016 TERRELL HOLLAND MD Ot Z87.891 PERSONAL HISTORY OF NICOTINE DEPENDENCE 10/26/2016 MARISSA GALLARDO, YAJAIRA Colbert Ot M19.011 PRIMARY OSTEOARTHRITIS, RIGHT SHOULDER 01/30/2018 YENNI FLORES MD Ot G14 POSTPOLIO SYNDROME 01/30/2018 YENNI FLORES MD Ot R29.898 OTH SYMPTOMS AND SIGNS INVOLVING THE MUS 02/28/2018 YENNI FLORES MD Ot G14 POSTPOLIO SYNDROME 02/28/2018 YENNI FLORES MD Ot R29.898 OTH SYMPTOMS AND SIGNS INVOLVING THE MUS 02/28/2018 YENNI FLORES MD Ot G14 POSTPOLIO SYNDROME 02/28/2018 YENNI FLORES MD Ot R29.898 OTH SYMPTOMS AND SIGNS INVOLVING THE MUS 03/03/2018 YENNI FLORES MD Ot G14 POSTPOLIO SYNDROME 03/03/2018 YENNI FLORES MD Ot R29.898 OTH SYMPTOMS AND SIGNS INVOLVING THE MUS 03/07/2018 YENNI FLORES MD Ot G14 POSTPOLIO SYNDROME 03/07/2018 YENNI FLORES MD Ot R29.898 OTH SYMPTOMS AND SIGNS INVOLVING THE MUS 03/07/2018 YENNI FLORES MD Ot G14 POSTPOLIO SYNDROME 03/07/2018 YENNI FLORES MD Ot R29.898 OTH SYMPTOMS AND SIGNS INVOLVING THE MUS 03/07/2018 YENNI FLORES MD Ot G14 POSTPOLIO SYNDROME 03/07/2018 YENNI FLORES MD Ot R29.898 OTH SYMPTOMS AND SIGNS INVOLVING THE MUS 03/10/2018 YENNI FLORES MD Ot G14 POSTPOLIO SYNDROME 03/10/2018 YENNI FLORES MD Ot R29.898 OTH SYMPTOMS AND SIGNS INVOLVING THE MUS 03/14/2018 TIERRA LOO MD Ot E66.9 OBESITY, UNSPECIFIED 03/14/2018 TIERRA LOO MD Ot I10 ESSENTIAL (PRIMARY) HYPERTENSION 03/14/2018 TIERRA LOO MD Ot I49.9 CARDIAC ARRHYTHMIA, UNSPECIFIED 03/14/2018 TIERRA LOO MD Ot R00.2 PALPITATIONS 03/14/2018 TIERRA LOO MD Ot R94.39 ABNORMAL RESULT OF OTHER CARDIOVASCULAR 03/14/2018 TIERRA LOO MD Ot Z68.35 BODY MASS INDEX (BMI) 35.0-35.9, ADULT 03/15/2018 TIERRA LOO MD Ot E66.9 OBESITY, UNSPECIFIED 03/15/2018 TIERRA LOO MD Ot E78.5 HYPERLIPIDEMIA, UNSPECIFIED 03/15/2018 TIERRA LOO MD Ot I10 ESSENTIAL (PRIMARY) HYPERTENSION 03/15/2018 TIERRA LOO MD Ot I25.10 ATHSCL HEART DISEASE OF [place] CORONARY 03/15/2018 TIERRA LOO MD Ot I45.10 UNSPECIFIED RIGHT BUNDLE-BRANCH BLOCK 03/15/2018 TIERRA LOO MD Ot I49.3 VENTRICULAR PREMATURE DEPOLARIZATION 03/15/2018 TIERRA LOO MD Ot I65.23 OCCLUSION AND STENOSIS OF [place] 03/15/2018 TIERRA LOO MD Ot R07.89 OTHER CHEST PAIN 03/15/2018 TIERRA LOO MD Ot Z68.35 BODY MASS INDEX (BMI) 35.0-35.9, ADULT 03/15/2018 TIERRA LOO MD Ot Z79.899 OTHER [facility] (CURRENT) DRUG THERAPY 03/15/2018 TIERRA LOO MD Ot Z86.12 PERSONAL HISTORY OF POLIOMYELITIS 03/15/2018 TIERRA LOO MD Ot Z87.891 PERSONAL HISTORY OF NICOTINE DEPENDENCE 03/20/2018 YENNI FLORES MD Ot G14 POSTPOLIO SYNDROME 03/20/2018 YENNI FLORES MD Ot R29.898 OT SYMPTOMS AND SIGNS INVOLVING THE MUS 03/27/2018 TIERRA LOO MD Ot E66.9 OBESITY, UNSPECIFIED 03/27/2018 TIERRA LOO MD Ot I08.1 RHEUMATIC DISORDERS OF BOTH MITRAL AND T 03/27/2018 TIERRA LOO MD Ot I10 ESSENTIAL (PRIMARY) HYPERTENSION 03/27/2018 TIERRA LOO MD Ot I49.9 CARDIAC ARRHYTHMIA, UNSPECIFIED 03/27/2018 TIERRA LOO MD Ot R00.2 PALPITATIONS 03/27/2018 TIERRA LOO MD Ot R94.39 ABNORMAL RESULT OF OTHER CARDIOVASCULAR 03/27/2018 TIERRA LOO MD Ot Z68.36 BODY MASS INDEX (BMI) 36.0-36.9, ADULT 04/04/2018 TIERRA LOO MD Ot E66.9 OBESITY, UNSPECIFIED 04/04/2018 TIERRA LOO MD Ot I10 ESSENTIAL (PRIMARY) HYPERTENSION 04/04/2018 TIERRA LOO MD Ot I49.9 CARDIAC ARRHYTHMIA, UNSPECIFIED 04/04/2018 TIERRA LOO MD Ot R00.2 PALPITATIONS 04/04/2018 TIERRA LOO MD Ot R94.39 ABNORMAL RESULT OF OTHER CARDIOVASCULAR 04/04/2018 TIERRA LOO MD Ot Z68.35 BODY MASS INDEX (BMI) 35.0-35.9, ADULT 04/13/2018 TIERRA LOO MD Ot E66.9 OBESITY, UNSPECIFIED 04/13/2018 TIERRA LOO MD Ot I08.1 RHEUMATIC DISORDERS OF BOTH [place] AND T 04/13/2018 TIERRA LOO MD Ot I10 ESSENTIAL (PRIMARY) HYPERTENSION 04/13/2018 TIERRA LOO MD Ot I49.9 CARDIAC ARRHYTHMIA, UNSPECIFIED 04/13/2018 TIERRA LOO MD Ot R00.2 PALPITATIONS 04/13/2018 TIERRA LOO MD Ot R94.39 ABNORMAL RESULT OF OTHER CARDIOVASCULAR 04/13/2018 TIERRA LOO MD Ot Z68.36 BODY MASS INDEX (BMI) 36.0-36.9, ADULT 04/17/2018 TIERRA LOO MD Ot E66.9 OBESITY, UNSPECIFIED 04/17/2018 TIERRA LOO MD Ot I10 ESSENTIAL (PRIMARY) HYPERTENSION 04/17/2018 TIERRA LOO MD Ot I49.9 CARDIAC ARRHYTHMIA, UNSPECIFIED 04/17/2018 TIERRA LOO MD Ot R00.2 PALPITATIONS 04/17/2018 TIERRA LOO MD Ot R94.39 ABNORMAL RESULT OF OTHER CARDIOVASCULAR 04/17/2018 TIERRA LOO MD Ot Z68.35 BODY MASS INDEX (BMI) 35.0-35.9, ADULT 04/22/2018 TIERRA LOO MD Ot E66.9 OBESITY, UNSPECIFIED 04/22/2018 TIERRA LOO MD Ot I08.1 RHEUMATIC DISORDERS OF BOTH [place] AND T 04/22/2018 TIERRA LOO MD Ot I10 ESSENTIAL (PRIMARY) HYPERTENSION 04/22/2018 TIERRA LOO MD Ot I49.9 CARDIAC ARRHYTHMIA, UNSPECIFIED 04/22/2018 TIERRA LOO MD Ot R00.2 PALPITATIONS 04/22/2018 TIERRA LOO MD Ot R94.39 ABNORMAL RESULT OF OTHER CARDIOVASCULAR 04/22/2018 TIERRA LOO MD, Ot Z68.36 BODY MASS INDEX (BMI) 36.0-36.9, ADULT Procedures There is no data. Results Test Result Range Methicillin resistant Staphylococcus aureus (MRSA) screening culture - 08/04/16 08:15 Methicillin resistant Staphylococcus aureus (MRSA) screening culture NEG NRG Automated blood complete blood count (hemogram) panel - 03/15/18 09:29 Blood leukocytes automated count (number/volume) 6.1 10*3/uL 4.3-11.0 Blood erythrocytes automated count (number/volume) 4.53 10*6/uL 4.35-5.85 Venous blood hemoglobin measurement (mass/volume) 12.7 g/dL 13.3-17.7 Blood hematocrit (volume fraction) 40 % 40-54 Automated erythrocyte mean corpuscular volume 88 [foz_us] 80-99 Automated erythrocyte mean corpuscular hemoglobin (mass per erythrocyte) 28 pg 25-34 Automated erythrocyte mean corpuscular hemoglobin concentration measurement (mass/volume) 32 g/dL 32-36 Automated erythrocyte distribution width ratio 14.6 % 10.0- 14.5 Automated blood platelet count (count/volume) 160 10*3/uL 130-400 Automated blood platelet mean volume measurement 9.9 [foz_us] 7.4-10.4 Comprehensive metabolic panel - 03/15/18 09:29 Serum or plasma sodium measurement (moles/volume) 140 mmol/L 135-145 Serum or plasma potassium measurement (moles/volume) 3.7 mmol/L 3.6-5.0 Serum or plasma chloride measurement (moles/volume) 99 mmol/L 98-107 Carbon dioxide 33 mmol/L 21-32 Serum or plasma anion gap determination (moles/volume) 8 mmol/L 5-14 Serum or plasma urea nitrogen measurement (mass/volume) 18 mg/dL 7-18 Serum or plasma creatinine measurement (mass/volume) 0.88 mg/dL 0.60-1.30 Serum or plasma urea nitrogen/creatinine mass ratio 20 NRG Serum or plasma creatinine measurement with calculation of estimated glomerular filtration rate > NRG Serum or plasma glucose measurement (mass/volume) 139 mg/dL 70-105 Serum or plasma calcium measurement (mass/volume) 9.5 mg/dL 8.5-10.1 Serum or plasma total bilirubin measurement (mass/volume) 0.6 mg/dL 0.1-1.0 Serum or plasma alkaline phosphatase measurement (enzymatic activity/volume) 58 U/L 40-136 Serum or plasma aspartate aminotransferase measurement (enzymatic activity/volume) 22 U/L 5-34 Serum or plasma alanine aminotransferase measurement (enzymatic activity/volume) 37 U/L 0-55 Serum or plasma protein measurement (mass/volume) 7.0 g/dL 6.4-8.2 Serum or plasma albumin measurement (mass/volume) 4.1 g/dL 3.2-4.5 CALCIUM CORRECTED 9.4 mg/dL 8.5-10.1 Lipid 1996 panel - 03/15/18 09:29 Serum or plasma triglyceride measurement (mass/volume) 99 mg/dL <150 Serum or plasma cholesterol measurement (mass/volume) 173 mg/dL < 200 Serum or plasma cholesterol in HDL measurement (mass/volume) 45 mg/dL 40-60 Cholesterol in LDL [mass/volume] in serum or plasma by direct assay 108 mg/dL 1-129 Serum or plasma cholesterol in VLDL measurement (mass/volume) 20 mg/dL 5-40 PT panel in platelet poor plasma by coagulation assay - 03/15/18 09:29 Prothrombin time (PT) in platelet poor plasma by coagulation assay 13.8 s 12.2-14.7 INR in platelet poor plasma or blood by coagulation assay 1.1 0.8-1.4 Activated partial thromboplastin time (aPTT) in platelet poor plasma bycoagulation assay - 03/15/18 09:29 Activated partial thromboplastin time (aPTT) in platelet poor plasma bycoagulation assay 29 s 24-35 Methicillin resistant Staphylococcus aureus (MRSA) screening culture - 03/15/18 09:29 Methicillin resistant Staphylococcus aureus (MRSA) screening culture NEG NRG Encounters ACCT No. Visit Date/Time Discharge Status Pt. Type Provider Facility Loc./Unit Complaint [id number] 07/23/2013 15:40:20 07/23/2013 23:59:59 CLS Outpatient Bj Herrera [id number] 04/05/2013 10:24:45 04/05/2013 23:59:59 CLS Outpatient Bj Herrera [id number] 03/27/2013 12:25:11 03/27/2013 23:59:59 CLS Outpatient Bj Herrera [id number] 03/20/2013 12:40:49 03/20/2013 23:59:59 CLS Outpatient Bj Herrera [id number] 02/07/2013 12:25:15 02/07/2013 23:59:59 CLS Outpatient Bj Herrera [id number] 01/25/2013 12:39:01 01/25/2013 23:59:59 CLS Outpatient Bj Herrera [id number] 01/22/2013 12:12:27 01/22/2013 23:59:59 CLS Outpatient Bj Herrera [id number] 01/15/2013 12:27:20 01/15/2013 23:59:59 CLS Outpatient Bj Herrera [id number] 09/24/2015 08:33:57 09/24/2015 08:33:57 Outpatient [id number] 11/03/2014 07:08:48 ACT Document Registration 0000 04/24/2017 23:45:52 04/24/2017 23:59:59 CLS Outpatient [id number] 03/23/2018 11:42:00 03/23/2018 23:59:59 CLS Outpatient TIERRA LOO MD [facility] CARD ABN STRESS TEST [id number] 03/20/2018 14:13:00 03/20/2018 15:13:00 DIS Outpatient YENNI FLORES MD [facility] REHAB LE WEAKNESS [id number] 03/15/2018 08:51:00 03/15/2018 17:45:00 DIS Outpatient TIERRA LOO MD [facility] CATH ABN STRESS TEST [id number] 03/13/2018 08:39:00 03/13/2018 23:59:59 CLS Outpatient TIERRA LOO MD [facility] CARD ABN STRESS TEST [id number] 03/02/2018 12:47:00 03/07/2018 08:00:00 DIS Outpatient YENNI FLORES MD [facility] REHAB LE WEAKNESS [id number] 11/12/2016 13:45:00 11/12/2016 14:51:00 DIS Outpatient YAJAIRA ANN MD [facility] REHAB PRIMARY OA R SHOULDER [id number] 10/25/2016 13:19:00 10/25/2016 14:27:00 DIS Emergency TERRELL HOLLAND MD [facility] ER FALL EYEBROW LAC [id number] 08/04/2016 11:25:00 08/14/2016 15:09:00 DIS Inpatient NIKOLAS GALLARDO, CASEY Huffman [facility] IRF POST-POLIO SYNDROME, L ROTATOR CUFF REPAIR [id number] 08/04/2016 07:55:00 08/04/2016 23:59:59 CLS Outpatient YAJAIRA ANN MD [facility] LEFT TORN ROTATOR CUFF [id number] 07/28/2016 12:43:00 07/28/2016 13:05:00 DIS Outpatient YAJAIRA ANN MD [facility] PREOP LEFT TORN ROTATOR CUFF [id number] 05/19/2016 11:00:00 05/19/2016 23:59:59 CLS Preadmit YAJAIRA ANN MD [facility] LEFT TORN ROTATOR CUFF [id number] 05/18/2016 10:50:00 05/18/2016 23:59:59 CLS Outpatient YAJAIRA ANN MD [facility] PREOP LEFT TORN ROTATOR CUFF [id number] 11/11/2015 15:23:00 11/11/2015 23:59:59 CLS Outpatient ALEX LYONS MD [facility] RAD PAIN LT AND RT SHOULDER [id number] 10/08/2015 07:39:00 10/08/2015 23:59:59 CLS Outpatient TIERRA LOO MD [facility] CARD PALPATATIONS,HTN,PVC,CAD [id number] 10/03/2015 09:45:00 10/03/2015 23:59:59 CLS Outpatient TIERRA LOO MD [facility] CARD CAD,PALPATATIONS,CAD,PVC, [id number] 07/24/2015 11:15:00 07/24/2015 23:59:59 CLS Outpatient REMA GONZALEZ APRN [facility] RAD CAROTID BRUIT [id number] 11/03/2014 07:08:00 11/03/2014 09:13:00 DIS Emergency RACHELL SOLO MD [facility] ER MIGRAINE R EYE BLURRY [id number] 10/30/2014 01:33:00 10/30/2014 03:52:00 DIS Emergency CHRISTA MOYA DO [facility] ER MIGRAINE [id number] 05/27/2014 10:46:00 05/27/2014 23:59:59 CLS Outpatient ROHAN HUTCHINS [facility] RAD FREQUENT URINATION [id number] 02/14/2014 13:00:00 03/04/2014 00:01:00 DIS Outpatient YENNI FLORES MD [facility] REHAB POLIO, GENERAL WEAKNESS [id number] 11/20/2013 13:28:00 02/18/2014 00:01:00 DIS Outpatient YENNI FLORES MD [facility] CARD PALPITTIONS [id number] 11/29/2013 15:09:00 12/04/2013 08:00:00 DIS Outpatient YENNI FLORES MD [facility] REHAB POST POLIO SYNDROME;BACK PAIN [id number] 11/27/2013 12:39:00 12/04/2013 08:00:00 DIS Outpatient YENNI FLORES MD [facility] REHAB POST POLIO SYNDROME;BACK PAIN;WEAKNESS [id number] 11/15/2013 13:46:00 11/15/2013 23:59:59 CLS Outpatient MARK GALLARDO, YENNI Conde [facility] RAD TOBACCOISM [id number] 07/29/2014 09:06:00 Document Registration [id number] 02/19/2014 13:00:00 Document Registration
== END 2018-11-10 14:19 | disposition home or self-care (01) ==
LOC: EDUNIT# 11:54 → ER 11:55
DX: S82.51XA Displaced fracture of medial malleolus of right tibia, initial encounter for closed fracture (principal); S82.831A Other fracture of upper and lower end of right fibula, initial encounter for closed fracture; I10 Essential (primary) hypertension; K21.9 Gastro-esophageal reflux disease without esophagitis; Z82.49 Family history of ischemic heart disease and other diseases of the circulatory system; Z88.0 Allergy status to penicillin; Z86.12 Personal history of poliomyelitis; Z87.891 Personal history of nicotine dependence; Z93.0 Tracheostomy status; Z90.89 Acquired absence of other organs; Z98.890 Other specified postprocedural states; Z99.81 Dependence on supplemental oxygen; W18.30XA Fall on same level, unspecified, initial encounter; X50.1XXA Overexertion from prolonged static or awkward postures, initial encounter
CPT/HCPCS: 73610

== ENCOUNTER → 2018-11-14 | Outpatient (CLI) | payer MEDICARE, MEDICAID ==
[~2018-11-14] MED LIST changes: +ACHD5005 PO
== END ==
LOC: ORTHO 09:54
PROVIDERS: ATTEND Orthopaedic Surgery
DX: S82.844A Nondisplaced bimalleolar fracture of right lower leg, initial encounter for closed fracture (principal); X58.XXXA Exposure to other specified factors, initial encounter
CPT/HCPCS: 99203

== ENCOUNTER → 2018-11-20 | Outpatient (CLI) | payer MEDICARE, MEDICAID ==
--- NOTE | 2018-11-20 10:51 | Diagnostic Imaging Report ---
INDICATION: Bimalleolar ankle fracture, followup. Time of exam: 10:21 AM Correlation is made with prior radiographs from 11/10/2018. Ankle is severely demineralized, limiting evaluation. There is a wrap obscuring some of the bone detail of the ankle as well. Fractures of the distal fibula as well as medial malleolus are again noted. There is slight distraction at the medial malleolar fracture, similar to prior exam. Fracture lines remain clearly visible. Overall alignment appears to be stable. Pes planus deformity is noted. There is midfoot degenerative change seen about possible ankylosis at the subtalar joint. IMPRESSION: Stable bimalleolar ankle fractures when compared with examination from 10 days earlier. Fracture lines remain visible. Dictated by: Dictated on workstation # [id number]
== END ==
LOC: ORTHO 10:00
PROVIDERS: ATTEND Orthopaedic Surgery
DX: S82.844A Nondisplaced bimalleolar fracture of right lower leg, initial encounter for closed fracture (principal); X58.XXXA Exposure to other specified factors, initial encounter
CPT/HCPCS: 73610; 99213

== ENCOUNTER → 2018-11-30 | Outpatient (CLI) | payer MEDICARE, MEDICAID ==
--- NOTE | 2018-11-30 12:19 | Diagnostic Imaging Report ---
INDICATION: Bimalleolar ankle fracture. TIME OF EXAM 9:32 a.m. COMPARISON: Correlation is made with prior ankle radiographs from 11/20/2018. FINDINGS: Alignment is maintained. Fractures involving the medial and lateral malleoli appear similar to prior exam. Fracture lines remain visible. There does appear to be a small amount of callus formation present. There continues to be some widening of the medial clear space similar to prior. Generalized demineralization is seen. IMPRESSION: Bimalleolar ankle fractures, as described with mild callus formation of the distal fibula. Fracture lines remain clearly visible. There continues to be some widening of the medial clear space. Dictated by: Dictated on workstation # [id number]
== END ==
LOC: ORTHO 09:13
PROVIDERS: ATTEND Orthopaedic Surgery
DX: S82.844A Nondisplaced bimalleolar fracture of right lower leg, initial encounter for closed fracture (principal); X58.XXXA Exposure to other specified factors, initial encounter
CPT/HCPCS: 73610; 99213

== ENCOUNTER → 2018-12-21 | Outpatient (CLI) | payer MEDICARE, MEDICAID ==
--- NOTE | 2018-12-21 13:16 | Diagnostic Imaging Report ---
INDICATION: Bimalleolar fracture, followup. COMPARISON: November 30, 2018. TECHNIQUE: Three radiographs of the right ankle dated December 21, 2018. FINDINGS: Cast/splint is again identified. Diffuse osseous demineralization. Previously noted fracture involving the medial malleolus is again identified. Alignment appears stable. Minimal periosteal reaction. Previously noted distal fibular fracture is again identified and stable in alignment with mild developing periosteal reaction. Fracture planes remain visualized. Some asymmetry of the ankle mortise is again identified with the lateral aspect appearing slightly widened. Severe pes planus deformity with ankylosis of the hind and midfoot. No new fracture or new dislocation. IMPRESSION: 1. Slight interval healing of previously noted bimalleolar ankle fracture with alignment remaining stable. Persistent fracture lucencies remain. Therefore, recommend continued radiographic followup to ensure complete healing. 2. Persistent asymmetry of the ankle mortise, possibly related to underlying ligamentous injury. 3. Osseous demineralization. 4. Pes planus deformity with associated ankylosis of the hind and midfoot, stable. Dictated by: Dictated on workstation # [id number]
== END ==
LOC: ORTHO 12:22
PROVIDERS: ATTEND Orthopaedic Surgery
DX: S82.844A Nondisplaced bimalleolar fracture of right lower leg, initial encounter for closed fracture (principal); X58.XXXA Exposure to other specified factors, initial encounter
CPT/HCPCS: 73610; 99213

== ENCOUNTER → 2019-01-09 | Outpatient (CLI) | payer MEDICARE, MEDICAID ==
--- NOTE | 2019-01-09 15:11 | Diagnostic Imaging Report ---
INDICATION: Bimalleolar ankle fracture, followup. TIME OF EXAMINATION: 12:50 PM. COMPARISON: 12/21/2018. FINDINGS: Moderate soft tissue swelling about the medial and lateral ankle persists. There are healing fractures of the distal fibula and medial malleolus with moderate callus formation present. The fracture lines remain visible. The alignment is maintained. The previously noted mild widening of the lateral aspect of the ankle mortise is again noted. 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 There is severe pes planus deformity. IMPRESSION: Healing of the bimalleolar ankle fractures although fracture lines do remain partly visible. Dictated by: Dictated on workstation # [id number]
== END ==
LOC: ORTHO 12:41
PROVIDERS: ATTEND Orthopaedic Surgery
DX: S82.844D Nondisplaced bimalleolar fracture of right lower leg, subsequent encounter for closed fracture with routine healing (principal)
CPT/HCPCS: 73610; 99213

== ENCOUNTER → 2019-01-30 | Outpatient (CLI) | payer MEDICARE, MEDICAID ==
--- NOTE | 2019-01-30 20:17 | Diagnostic Imaging Report ---
EXAMINATION: Right ankle radiographs, 3 views. COMPARISON: January 09, 2019. HISTORY: 73-year-old male, bimalleolar ankle fracture. Followup exam. FINDINGS: The bones appear demineralized. There is a nondisplaced obliquely oriented distal fibular diaphyseal fracture extending about the level of the ankle mortise. There is a mildly displaced fracture extending obliquely through the base of the medial malleolus. There does appear to be a mild interval increase in periosteal reaction adjacent to the medial malleolar fracture. There is unchanged mild periosteal reaction adjacent to the distal fibular diaphyseal fracture. There is visibility of both fracture lines. There are limitations of the exam relating to difficulty positioning the patient. There is no gross malalignment of the ankle mortise. There is no identified large tibiotalar joint effusion. There is an abnormal appearance of the midfoot. There is no well visualized clear talonavicular articulation or calcaneocuboid articulation. On the oblique view, there is the question of a mildly displaced fracture involving the medial aspect of the talus. IMPRESSION: 1. Redemonstrated and nondisplaced distal fibular diaphyseal fracture above the level the tibial plafond. No significant interval healing response. 2. Redemonstrated mildly displaced fracture involving the medial malleolus. There is minimal partial interval healing response with persistent visualized fracture line. 3. Newly identified potential mildly displaced fracture of the medial aspect of the talus. This may be better evaluated with dedicated CT right ankle without contrast. 4. The bones appear demineralized. 5. Abnormal appearance of the midfoot which is not particularly well evaluated on this exam. Dictated by: Dictated on workstation # [id number]
== END ==
LOC: ORTHO 13:13
PROVIDERS: ATTEND Orthopaedic Surgery
DX: S82.844D Nondisplaced bimalleolar fracture of right lower leg, subsequent encounter for closed fracture with routine healing (principal); X58.XXXD Exposure to other specified factors, subsequent encounter
CPT/HCPCS: 73610

== ENCOUNTER → 2019-04-04 | Outpatient (CLI) | payer MEDICARE, MEDICAID ==
[~2019-04-04] MED LIST changes: -ACET-77 PO; +ACET-78 PO; +FLUT16SP22 NSEACH; +METF-397 PO; -METO-387 PO; +METO50TA7 PO; +MTP25TSR PO; +TMSL.4C PO; +TRZ50T PO
--- NOTE | 2019-04-04 09:10 | Diagnostic Imaging Report ---
INDICATION: Left nipple pain. COMPARISON: No prior studies are available for comparison. TECHNIQUE: Unilateral left 2D and 3D diagnostic mammography was performed with CAD. FINDINGS: There is some mild density in the retroareolar left breast, presumably gynecomastia. No discrete mass or microcalcifications are seen. IMPRESSION: The findings are most suggestive of gynecomastia in the retroareolar left breast. Even so, ultrasound of the retroareolar left breast is recommended and will be performed today. ACR BI-RADS Category 0: Incomplete. (Needs additional imaging evaluation). Result letter will be mailed to the patient. Note: At least 10% of breast cancer is not imaged by mammography. Dictated by: Dictated on workstation # [id number]
--- NOTE | 2019-04-04 10:06 | Diagnostic Imaging Report ---
INDICATION: Left nipple pain. COMPARISON: Correlation is made with the diagnostic mammogram from earlier this same day. FINDINGS: Sonographic interrogation of the retroareolar left breast was performed. Ill-defined hypoechogenicity is noted, consistent with gynecomastia. No discrete mass is detected. IMPRESSION: Findings suggestive of mild gynecomastia. ACR BI-RADS Category 2: Benign findings. Dictated by: Dictated on workstation # [id number]
== END ==
LOC: RAD 08:31
PROVIDERS: ATTEND Family Medicine
DX: N64.4 Mastodynia (principal)
CPT/HCPCS: 76642

== ENCOUNTER 2019-04-30 07:54 | Day surgery (SDC) | payer MEDICARE, MEDICAID ==
[~2019-04-30] VITALS: Ht 185.5 cm; Wt 81.8 kg
[~2019-04-30 07:54] MED LIST changes: +ACET-77 PO; -ACET-78 PO; +METO-370 PO; +METO-387 PO; -METO50TA7 PO; -MTP25TSR PO; +TAMS0.4C98 PO; -TMSL.4C PO; +TRAZ-222 PO; -TRZ50T PO
[2019-04-30] MEDS ORDERED: LACTATED RINGERS 1,000 ML IV ONE (08:02)
[2019-04-30] MEDS ORDERED: LACTATED RINGERS 1,000 ML IV STA (08:03)
[2019-04-30 08:15] VITALS: BP 135/77
[2019-04-30] MEDS ORDERED: MIDAZOLAM 2 MG/2 ML (VERSED) VIAL ONE (09:25)
[2019-04-30] MEDS ORDERED: proPOfol 200 MG/20 ML (DIPRIVAN) VIAL IV ONE (09:25)
[2019-04-30] MEDS ORDERED: ESMOLOL 100 MG/10 ML (BREVIBLOC) VIAL ONE (09:25)
--- NOTE | 2019-04-30 09:30 | Progress Note-Pre Operative ---
Pre-Operative Progress Note H&P Reviewed The H&P was reviewed, patient examined and no changes noted. Time Seen by Provider: 09:22 Date H&P Reviewed: Apr 30, 2019 Time H&P Reviewed: 09:23 Pre-Operative Diagnosis: Hx of colon polyps CASEY HOLT DO Apr 30, 2019 09:30 POS
[2019-04-30 10:05] VITALS: BP 133/68
--- NOTE | 2019-04-30 10:08 | Progress Note-Post Operative ---
Post-Operative Progess Note Surgeon (s)/Uat Tester (s) Surgeon CASEY HOLT DO Uat Tester: SHANITA RodriguezII Pre-Operative Diagnosis Hx of colon polyps Post-Operative Diagnosis Polyps Diverticula Int hemorrhoids Procedure & Operative Findings Date of Procedure 04/30/19 Procedure Performed/Findings colon with snare Anesthesia Type IV sedation by Anesthesia Estimated Blood Loss Estimated blood loss (mL): Scant Specimens/Packing Specimens Removed desc colon polyp x 2 transverse colon polyp x 2 CASEY HOLT DO Apr 30, 2019 10:08 POS
--- NOTE | 2019-04-30 10:09 | Endoscopy Discharge Instruct ---
Endo Procedure/Findings Findings 1.: Polyp 2.: Diverticulosis 3.: Internal Hemorrhoids Discharge Instructions - Activity: You might feel a little sleepy until tomorrow. This is due to the medicine you received to relax you. Until tomorrow, you should: NOT drive a car, operate machinery or power tools. NOT drink any alcoholic beverages. NOT make any important decisions or sign importortant papers. Do not return to work until tomorrow, unless otherwise instructed. Resume previous activities tomorrow. Diet: Start by taking liquids. If you tolerate liquids, advance to solid food. make an appointment for one week 1.: Colonscopy in 5 years Notify Physician - If you experience excessive bleeding, unusual abdominal pain, fever, or chest pain, contact your doctor immediately. CASEY HOLT DO Apr 30, 2019 10:09 POS
[2019-04-30 10:10] VITALS: BP 140/75
[2019-04-30 10:15] VITALS: BP_SYST 150; BP_DIAS 108; BP_DIAS 77
[2019-04-30 10:45] VITALS: BP 134/63
[2019-04-30 10:55] VITALS: BP 150/108
--- NOTE | 2019-04-30 23:46 | OPERATIVE REPORT ---
DATE OF SERVICE: PREOPERATIVE DIAGNOSIS: History of colon polyps. POSTOPERATIVE DIAGNOSES: 1. Colon polyps. 2. Diverticular. 3. Internal hemorrhoids. PROCEDURE: Colonoscopy with snare polypectomy. SURGEON: Wade Alexander DO. CT TECHNICIAN: Cy Park MS3. ANESTHESIA: IV sedation by the anesthesiologist. SPECIMENS: Two polyps in transverse colon, two polyps in the descending colon. BLOOD LOSS: Scant. FLUIDS: Per anesthesia. POSTOPERATIVE CONDITION: Stable. INDICATION FOR PROCEDURE: The patient is a 74-year-old male who has a history of colon polyps, needed a colonoscopy. FINDINGS: The patient had some diverticula. He had polyps 2 in the transverse colon and 2 in the descending colon. He had some small internal hemorrhoids. PROCEDURE NOTE: After informed consent was obtained, the patient was brought to the endoscopy suite and placed in bed in the left lateral decubitus position. He was administered IV sedation by the anesthesiologist who then monitored his vitals the entire time, heart rate, blood pressure and pulse ox and the scope was inserted. On the way in, noted polyp and some diverticula in the descending colon, did snare polypectomy, continued up, saw another polyp, did another snare polypectomy and continued all the way to about 150 cm, able to cecum, took a picture of appendiceal orifice, noted the ileocecal valve and then slowly withdrew the scope insufflating the circumferential muro looking the cecum, up the ascending colon to the hepatic flexure, then down the transverse colon. In the transverse colon, saw two more polyps, did snare polypectomies as well and then continued down to the splenic flexure, into the descending colon down in the sigmoid and finally into the rectum, retroflexed in the rectal vault, saw some minimal internal hemorrhoids, took a picture of this and then removed the scope. The patient tolerated the procedure, recovered in endoscopy suite. Job ID: [id number] DocumentID: [id number] Dictated Date: 04/30/2019 19:53:55 Director Of Front Office Date: 04/30/2019 23:44:47 Dictated By: WADE ALEXANDER DO
--- NOTE | 2019-05-01 06:53 | Anesthesia-General Post-Op ---
MAC Patient Condition Mental Status/LOC: Same as Preop Cardiovascular: Satisfactory Nausea/Vomiting: Absent Respiratory: Satisfactory Pain: Controlled Complications: Absent Post Op Complications Complications None Follow Up Care/Instructions Patient Instructions None needed. Anesthesiology Discharge Order Discharge Order Late entry: Patient was seen after the procedure and he was doing well, no complaints, stable vital signs, no apparent adverse anesthesia problems. WENDY LEOS DO May 01, 2019 06:53 POS
== END 2019-04-30 10:55 | disposition home or self-care (01) ==
LOC: ENDO 07:54
PROVIDERS: ATTEND Surgery
DX: Z12.11 Encounter for screening for malignant neoplasm of colon (principal); D12.4 Benign neoplasm of descending colon; D12.3 Benign neoplasm of transverse colon; K57.30 Diverticulosis of large intestine without perforation or abscess without bleeding; K64.8 Other hemorrhoids; K21.9 Gastro-esophageal reflux disease without esophagitis; N62 Hypertrophy of breast; I10 Essential (primary) hypertension; I25.10 Atherosclerotic heart disease of native coronary artery without angina pectoris; I49.9 Cardiac arrhythmia, unspecified; I65.23 Occlusion and stenosis of bilateral carotid arteries; M19.011 Primary osteoarthritis, right shoulder; M19.012 Primary osteoarthritis, left shoulder; G14 Postpolio syndrome; L40.9 Psoriasis, unspecified; E55.9 Vitamin D deficiency, unspecified; R53.1 Weakness; J30.9 Allergic rhinitis, unspecified; Z86.73 Personal history of transient ischemic attack (TIA), and cerebral infarction without residual deficits; Z79.899 Other long term (current) drug therapy; Z88.0 Allergy status to penicillin; Z87.891 Personal history of nicotine dependence; Z99.81 Dependence on supplemental oxygen

== ENCOUNTER → 2020-12-17 | Outpatient (CLI) | payer MEDICARE, MEDICAID ==
[~2020-12-17] MED LIST changes: -ACET-77 PO; +ACET-78 PO; -LISI-552 PO; +LISI20TA26 PO; -METO-370 PO; -METO-387 PO; +METO50TA7 PO; +MTP25TSR PO; -TAMS0.4C98 PO; +TMSL.4C PO; -TRAZ-222 PO; +TRZ50T PO
[2020-12-17 15:47] LABS: ABSOLUTE RETIC # 67 10e9/uL (24-90); BASOPHILS % (AUTO) 1 % (0-10); EOSINOPHILS # (AUTO) 0.2 10^3/uL (0.0-0.3); EOSINOPHILS % (AUTO) 4 % (0-10); HEMATOCRIT 40 % (40-54); HEMOGLOBIN 12.6 g/dL (13.3-17.7); LYMPHOCYTES # (AUTO) 1.1 10^3/uL (1.0-4.0); LYMPHOCYTES % (AUTO) 25 % (12-44); MEAN CORPUSCULAR HEMOGLOBIN 29 pg (25-34); MEAN CORPUSCULAR HGB CONC 32 g/dL (32-36); MEAN CORPUSCULAR VOLUME 92 fL (80-99); MEAN PLATELET VOLUME 10.5 fL (9.0-12.2); MONOCYTES # (AUTO) 0.3 10^3/uL (0.0-1.0); MONOCYTES % (AUTO) 7 % (0-12); NEUTROPHILS # (AUTO) 2.8 10^3/uL (1.8-7.8); NEUTROPHILS % (AUTO) 64 % (42-75); PLATELET COUNT 161 10^3/uL (130-400); RETICULOCYTE % 1.55 % (0.50-2.40); WHITE BLOOD COUNT 4.3 10^3/uL (4.3-11.0)
[2020-12-17 15:49] LABS: EOSINOPHILS % (MANUAL) 4 %; LYMPHOCYTES % (MANUAL) 20 %; MONOCYTES % (MANUAL) 5 %; NEUTROPHILS % (MANUAL) 71 %; RBC MORPH NORMAL
== END ==
LOC: LAB 14:12
PROVIDERS: ATTEND Family Medicine
DX: D72.819 Decreased white blood cell count, unspecified (principal); D69.6 Thrombocytopenia, unspecified
CPT/HCPCS: 36415; 85007; 85027; 85045; 85055

== ENCOUNTER 2021-03-03 05:41 | Outpatient (CLI) | payer MEDICARE, MEDICAID ==
[~2021-03-03] VITALS: Ht 182.9 cm; Wt 129.1 kg
[2021-03-03] MEDS ORDERED: GABA300C PO (14:35)
[2021-03-03] MEDS ORDERED: ACHD5005 PO (14:35)
[2021-03-03] MEDS ORDERED: SENN-274 PO (14:35)
== END 2021-03-03 14:36 ==
LOC: PREOP 05:41
PROVIDERS: ATTEND Specialist
DX: Z01.818 Encounter for other preprocedural examination (principal)

== ENCOUNTER 2021-03-06 08:35 | Day surgery (SDC) | payer MEDICARE, MEDICAID ==
[~2021-03-06] VITALS: Ht 182.9 cm; Wt 129.1 kg
[~2021-03-06 08:35] MED LIST changes: +GABA300C PO; +SENN-274 PO
[2021-03-06 08:45] VITALS: BP 136/81
[2021-03-06] MEDS ORDERED: MOXIFLOXACIN OPHTH SOLN 5 MG/ML 0.3 ML SYRINGE OP ONE (08:45)
[2021-03-06] MEDS ORDERED: TIMOLOL MALEATE 0.5% 5 ML (TIMOPTIC) BTL OU PRN (08:45)
[2021-03-06] MEDS ORDERED: POVIDONE (BETADINE) OPHTH SOLN 5% 30 ML OP ONE (08:45)
[2021-03-06] MEDS ORDERED: LIDOCAINE PF 1% 2 ML VIAL IR PRN (08:45)
[2021-03-06] MEDS ORDERED: MIDAZOLAM 2 MG/2 ML (VERSED) VIAL ONE (08:47)
[2021-03-06] MEDS: TETRACAINE 0.5% OPHTH SOLN 4 ML BTL (SINGLE DOSE ONLY) OU PRN ×4 (09:05→09:21)
[2021-03-06] MEDS: PHENYLEPHRINE 10% OPHTH (NEO-SYN) 5 ML BTL OU SCH ×3 (09:11→09:21)
[2021-03-06] MEDS: TROPICAMIDE 1% OPH SOLN (MYDRIACYL) 15 ML BTL OP SCH ×3 (09:11→09:21)
--- NOTE | 2021-03-06 09:28 | Ophthalmologist Pre-Op Note ---
Pre-Operative Progress Note H&P Reviewed The H&P was reviewed, patient examined and no changes noted. Date H&P Reviewed: Mar 06, 2021 Time H&P Reviewed: 09:27 Pre-Op Dx Cataract, Right Eye VIVIENNE STALLINGS MD Mar 06, 2021 09:28
[2021-03-06] MEDS ORDERED: acetaZOLAMIDE ER 500 MG CAP (DIAMOX SEQUELS) PO ONE (10:00)
--- NOTE | 2021-03-06 10:00 | Ophthalmology Operative Report ---
Cataract removal/placement IOL PREOPERATIVE DIAGNOSIS: Cataract Right Eye POSTOPERATIVE DIAGNOSIS: Cataract Right Eye PROCEDURE: Cataract removal and placement of posterior chamber implant, right eye SURGEON: Rodney Stallings ANESTHESIA: Topical with sedation COMPLICATIONS: None ESTIMATED BLOOD LOSS: Minimal DESCRIPTION OF PROCEDURE: After proper informed consent was obtained, the patient, a 75 male, was taken to the Operating Room and the right eye was anesthetized with tetracaine. The right eye was then prepped and draped in the usual manner. A wire lid speculum was placed. A paracentesis was made at the left hand position. Preservative free lidocaine was injected into the anterior chamber followed by viscoelastic. A clear corneal incision was made in the temporal position. A capsulorrhexis was preformed and the central nuclear and cortical material were removed. The posterior capsule was polished and Shawn 20.5 AU00T0 IOL was placed into the capsular bag. The residual viscoelastic was aspirated and balanced saline solution was injected into the anterior chamber. Moxifloxacin was injected into the anterior chamber. The wound was checked and found to be water tight. The patient tolerated the procedure well without complications. RODNEY STALLINGS MD Mar 06, 2021 10:00
[2021-03-06 10:15] VITALS: BP 138/89
--- NOTE | 2021-03-06 13:54 | Anesthesia-General Post-Op ---
MAC Patient Condition Mental Status/LOC: Same as Preop Cardiovascular: Satisfactory Nausea/Vomiting: Absent Respiratory: Satisfactory Pain: Controlled Complications: Absent Post Op Complications Complications None Follow Up Care/Instructions Patient Instructions None needed. Anesthesiology Discharge Order Discharge Order Patient is doing well, no complaints, stable vital signs, no apparent adverse anesthesia problems. No complications reported per nursing. CANDI ANTON CRNA Mar 06, 2021 13:54
== END 2021-03-06 10:15 | disposition home or self-care (01) ==
LOC: SDC 08:35
PROVIDERS: ATTEND Specialist
DX: E11.36 Type 2 diabetes mellitus with diabetic cataract (principal); H25.11 Age-related nuclear cataract, right eye; E66.01 Morbid (severe) obesity due to excess calories; I10 Essential (primary) hypertension; Z87.891 Personal history of nicotine dependence; Z68.38 Body mass index [BMI] 38.0-38.9, adult
CPT/HCPCS: 66984; 82947; V2632

== ENCOUNTER 2021-04-06 05:53 | Outpatient (CLI) | payer MEDICARE, MEDICAID ==
[~2021-04-06] VITALS: Ht 182.9 cm; Wt 129.1 kg
== END 2021-04-07 14:35 | disposition home or self-care (01) ==
LOC: PREOP 05:53
PROVIDERS: ATTEND Specialist
DX: Z01.818 Encounter for other preprocedural examination (principal)

== ENCOUNTER 2021-06-23 05:38 | Outpatient (CLI) | payer MEDICARE, MEDICAID ==
[~2021-06-23] VITALS: Ht 182.9 cm; Wt 134.0 kg
[2021-06-23] MEDS ORDERED: OMG1KC PO (11:01)
== END 2021-06-23 11:13 | disposition home or self-care (01) ==
LOC: PREOP 05:38
PROVIDERS: ATTEND Specialist
DX: Z01.818 Encounter for other preprocedural examination (principal)

== ENCOUNTER 2021-06-26 08:27 | Day surgery (SDC) | payer MEDICARE, MEDICAID ==
[~2021-06-26] VITALS: Ht 182.9 cm; Wt 134.0 kg
[~2021-06-26 08:27] MED LIST changes: +OMG1KC PO
[2021-06-26] MEDS ORDERED: MOXIFLOXACIN OPHTH SOLN 5 MG/ML 0.3 ML SYRINGE OP ONE (08:45)
[2021-06-26] MEDS ORDERED: LIDOCAINE PF 1% 2 ML VIAL IR PRN (08:45)
[2021-06-26] MEDS ORDERED: TIMOLOL MALEATE 0.5% 5 ML (TIMOPTIC) BTL OU PRN (08:45)
[2021-06-26] MEDS ORDERED: POVIDONE (BETADINE) OPHTH SOLN 5% 30 ML OP ONE (08:45)
[2021-06-26] MEDS: TETRACAINE 0.5% OPHTH SOLN 4 ML BTL (SINGLE DOSE ONLY) OU PRN ×4 (08:52→09:10)
[2021-06-26 08:56] VITALS: BP 137/68
[2021-06-26] MEDS: TROPICAMIDE 1% OPH SOLN (MYDRIACYL) 15 ML BTL OP SCH ×3 (09:00→09:10)
[2021-06-26] MEDS: PHENYLEPHRINE 10% OPHTH (NEO-SYN) 5 ML BTL OU SCH ×3 (09:00→09:10)
--- NOTE | 2021-06-26 09:26 | Ophthalmologist Pre-Op Note ---
Pre-Operative Progress Note H&P Reviewed The H&P was reviewed, patient examined and no changes noted. Date H&P Reviewed: Jun 26, 2021 Time H&P Reviewed: 09:26 Pre-Op Dx Cataract, Left Eye VIVIENNE STALLINGS MD Jun 26, 2021 09:26
--- NOTE | 2021-06-26 09:50 | Ophthalmology Operative Report ---
Cataract removal/placement IOL PREOPERATIVE DIAGNOSIS: Cataract Left Eye POSTOPERATIVE DIAGNOSIS: Cataract Left Eye PROCEDURE: Cataract removal and placement of posterior chamber implant, left eye SURGEON: Rodney Stallings ANESTHESIA: Topical with sedation COMPLICATIONS: None ESTIMATED BLOOD LOSS: Minimal DESCRIPTION OF PROCEDURE: After proper informed consent was obtained, the patient, a 76 male, was taken to the Operating Room and the left eye was anesthetized with tetracaine. The left eye was then prepped and draped in the usual manner. A wire lid speculum was placed. A paracentesis was made at the left hand position. Preservative free lidocaine was injected into the anterior chamber followed by viscoelastic. A clear corneal incision was made in the temporal position. A capsulorrhexis was preformed and the central nuclear and cortical material were removed. The posterior capsule was polished and an Shawn 20.0 AU00T0 was placed into the capsular bag. The residual viscoelastic was aspirated and balanced saline solution was injected into the anterior chamber. Moxifloxacin was injected into the anterior chamber. The wound was checked and found to be water tight. The patient tolerated the procedure well without complications. RODNEY STALLINGS MD Jun 26, 2021 09:50
[2021-06-26 09:53] VITALS: BP 121/63
[2021-06-26] MEDS ORDERED: acetaZOLAMIDE ER 500 MG CAP (DIAMOX SEQUELS) PO ONE (10:30)
--- NOTE | 2021-06-26 10:49 | Anesthesia-General Post-Op ---
MAC Patient Condition Mental Status/LOC: Same as Preop Cardiovascular: Satisfactory Nausea/Vomiting: Absent Respiratory: Satisfactory Pain: Controlled Complications: Absent Post Op Complications Complications None Follow Up Care/Instructions Patient Instructions None needed. Anesthesiology Discharge Order Discharge Order Patient is doing well, no complaints, stable vital signs, no apparent adverse anesthesia problems. No complications reported per nursing. NURA DE SOUZA CRNA Jun 26, 2021 10:49
== END 2021-06-26 09:55 ==
LOC: SDC 08:27
PROVIDERS: ATTEND Specialist
DX: E11.36 Type 2 diabetes mellitus with diabetic cataract (principal); H25.12 Age-related nuclear cataract, left eye; I10 Essential (primary) hypertension; Z87.891 Personal history of nicotine dependence; Z79.899 Other long term (current) drug therapy; Z79.891 Long term (current) use of opiate analgesic; Z79.84 Long term (current) use of oral hypoglycemic drugs
CPT/HCPCS: 66984; V2632

== ENCOUNTER → 2021-10-27 | Outpatient (CLI) | payer MEDICARE, MEDICAID | LOC: CARD 13:00 | PROVIDERS: ATTEND Internal Medicine Cardiovascular Disease | DX: I11.9 Hypertensive heart disease without heart failure (principal) | CPT/HCPCS: 93306 ==